=== PATIENT | male | born 1960 | race Caucasian/White ===

== ENCOUNTER 2016-05-22 10:15 | Emergency (ER) | payer OTHER ==
[~2016-05-22 10:15] MED LIST: ALBU17IN INH; ASPI81TA85 PO; ATEN50TA2 PO; ATOR1TAB18 PO; LOSA25TA8 PO; LOSA50TA20 PO; METF850T PO; PARO20TA2 PO
--- NOTE | 2016-05-22 13:26 | EDDOCDS ---
Nurse's Notes [facility] Name: Dilan Mack Age: 56 yrs Sex: Male : 1960 Arrival Date: 05/22/2016 Time: 10:15 Bed TR8 Private MD: Lee Ann Boswell Diagnosis: Acute sinusitis-rebound congestion due to accidental misuse of oxymetazoline Presentation: 05/22 10:26 Presenting complaint: Patient states: Pt presents recently under tx for sinus infection dls used nasal spray OTC entire bottle used in one night. Pt states has anxiety issues which makes his blood pressure go up. Adult Sepsis Screening: The patient does not have new or worsening altered mentation. Patient's respiratory rate is less than 22. Systolic blood pressure is greater than 100. Patient has a qSOFA score of 0- Negative Sepsis Screen. Suicide/Homicide risk assessment- the patient denies having any suicidal and/or homicidal ideations and does not present with any other emotional, behavioral or mental health complaints. Status: Patient is not a nutrition services associate or dependent. Transition of care: patient was not received from another setting of care. 10:26 Acuity: JHON Level 4 dls 10:26 Method Of Arrival: Walkin/Carried/Asstd dls Triage Assessment: 10:31 General: Appears in no apparent distress, well developed, Behavior is cooperative. dls Pain: Denies pain. Pain. HIV screening NA for this visit Offered previously. Historical: - Allergies: no known allergies; - Home Meds: 1. metformin 850 mg Oral tab 1 tab 2. atenolol 50 mg Oral tab 1 tab once daily 3. losartin 50mg daily 4. atorvastatin 80 mg oral tab 1 tab once daily 5. aspirin 81 mg Oral tab 1 tab once daily 6. doxycycline hyclate 100 mg Oral cap 1 cap every 12 hours 7. fluticasone 50mcg 1 spray each nostril twice daily - PMHx: Hypertension; Diabetes - NIDDM: controlled; - PSHx: none; - Social history: Smoking status: Patient uses tobacco products, light tobacco smoker. No barriers to communication noted, The patient speaks fluent Malagasy, Speaks appropriately for age. - : The pt / caregiver states he / she is not on anticoagulants. Home medication list is obtained from the patient. - Exposure Risk Screening:: None identified. Assessment: 12:04 General: Appears in no apparent distress. Respiratory: Airway is patent Respiratory mk4 effort is even, unlabored, Respiratory pattern is regular, harsh non prod cough. Vital Signs: 10:17 BP 172 / 82; Pulse 78; Resp 18; Temp 97.1(O); Pulse Ox 99% ; Weight 99.79 kg (R); ct3 Height 5 ft. 8 in. (172.72 cm) (R); Pain 0/10; 10:17 Body Mass Index 33.45 (99.79 kg, 172.72 cm) ct3 Vitals: 10:17 Log In Time: May 22, 2016 at 10:15. ct3 13:04 Strep Screen is obtained and tested: Negative, a GATSNEG culture is ordered in [facility] kcs and sent. ED Course: 10:16 Patient visited by Valarie Blas PCA. ct3 10:16 Lee Ann Boswell RPA-C is Private Physician. ct3 10:16 Patient moved to Waiting ct3 10:18 Patient moved to Pre RCE ct3 10:29 Triage Initiated dls 11:37 Patient moved to Triage 3 mk4 11:56 [facility] ar2 11:56 Chidi Radford MD is Attending Physician. ar2 12:03 Patient visited by Carmen Mayo RN. mk4 12:27 Patient visited by Heath Dean PA-C. ar2 12:34 [facility] Payment Agreement was scanned into [employer] and attached to record. mm15 13:06 Lee Ann Boswell RPA-C is Referral Physician. ar2 13:07 GATS (NEGATIVE STREP SCREEN) Sent. kcs 13:18 Patient moved to TR8 dls Order Results: There are currently no results for this order. Outcome: 13:07 Discharge ordered by Provider. ar2 13:25 Patient left the ED. mk4 Signatures: Gardenia Huynh RN RN kcs Scott, Debra, RN RN dls Heath Dean PA-C PA-C ar2 Valarie Blas PCA ER MANAGER ct3 Erin Yanez mm15 Carmen Mayo RN RN 4 MTDD
--- NOTE | 2016-05-22 13:26 | EDDOCDS ---
Physician Documentation [facility] Name: Dilan Mack Age: 56 yrs Sex: Male : 1960 Arrival Date: 05/22/2016 Time: 10:15 Bed TR8 Private MD: Lee Ann Boswell Disposition: 05/22/16 13:07 Discharged to Home/Self Care. Impression: Acute sinusitis - rebound congestion due to accidental misuse of oxymetazoline. - Condition is Stable. - Discharge Instructions: Sinusitis, Adult. - Medication Reconciliation, Local Pharmacy Hours form. - Follow up: Lee Ann Boswell,GÓMEZ; When: 2 - 3 days; Reason: Recheck today's complaints. Follow up: Emergency Department; When: As needed; Reason: Worsening of conditions. - Problem is new. - Symptoms are unchanged. - Notes: if you develop severe headache, chest pain or worsening condition return to ER. Historical: - Allergies: no known allergies; - Home Meds: 1. metformin 850 mg Oral tab 1 tab 2. atenolol 50 mg Oral tab 1 tab once daily 3. losartin 50mg daily 4. atorvastatin 80 mg oral tab 1 tab once daily 5. aspirin 81 mg Oral tab 1 tab once daily 6. doxycycline hyclate 100 mg Oral cap 1 cap every 12 hours 7. fluticasone 50mcg 1 spray each nostril twice daily - PMHx: Hypertension; Diabetes - NIDDM: controlled; - PSHx: none; - Social history: Smoking status: Patient uses tobacco products, light tobacco smoker. No barriers to communication noted, The patient speaks fluent Czech, Speaks appropriately for age. - : The pt / caregiver states he / she is not on anticoagulants. Home medication list is obtained from the patient. - Exposure Risk Screening:: None identified. Vital Signs: 05/22 10:17 BP 172 / 82; Pulse 78; Resp 18; Temp 97.1(O); Pulse Ox 99% ; Weight 99.79 kg / 220 lbs ct3 (R); Height 5 ft. 8 in. (172.72 cm) (R); Pain 0/10; 10:17 Body Mass Index 33.45 (99.79 kg, 172.72 cm) ct3 MDM: 12:30 Financial registration complete. mm15 12:34 [facility] Payment Agreement was scanned into [employer] and attached to record. mm15 12:53 Strep Screen, Nursing ordered. ar2 13:05 GATS (NEGATIVE STREP SCREEN) Ordered. EDMS Signatures: Dispatcher [employer] EDMS Vicki Mcdonnell, RN RN dls Heath Dean PA-C PAJudson ar2 Erin Yanez mm15 Carmen Mayo RN RN mk4 The chart was reviewed and I authenticate all verbal orders and agree with the evaluation and treatment provided.Attachments: 12:34 [facility] Payment Agreement mm15 MTDD
--- NOTE | 2016-05-24 14:26 | EDDOCDS ---
Physician Documentation [facility] Name: Dilan Mack Age: 56 yrs Sex: Male : 1960 Arrival Date: 05/22/2016 Time: 10:15 Bed TR8 Private MD: Lee Ann Boswell Disposition: 05/22/16 13:07 Discharged to Home/Self Care. Impression: Acute sinusitis - rebound congestion due to accidental misuse of oxymetazoline. - Condition is Stable. - Discharge Instructions: Sinusitis, Adult. - Medication Reconciliation, Local Pharmacy Hours form. - Follow up: Lee Ann Boswell,GÓMEZ; When: 2 - 3 days; Reason: Recheck today's complaints. Follow up: Emergency Department; When: As needed; Reason: Worsening of conditions. - Problem is new. - Symptoms are unchanged. - Notes: if you develop severe headache, chest pain or worsening condition return to ER. Historical: - Allergies: no known allergies; - Home Meds: 1. metformin 850 mg Oral tab 1 tab 2. atenolol 50 mg Oral tab 1 tab once daily 3. losartin 50mg daily 4. atorvastatin 80 mg oral tab 1 tab once daily 5. aspirin 81 mg Oral tab 1 tab once daily 6. doxycycline hyclate 100 mg Oral cap 1 cap every 12 hours 7. fluticasone 50mcg 1 spray each nostril twice daily - PMHx: Hypertension; Diabetes - NIDDM: controlled; - PSHx: none; - Social history: Smoking status: Patient uses tobacco products, light tobacco smoker. No barriers to communication noted, The patient speaks fluent Lithuanian, Speaks appropriately for age. - : The pt / caregiver states he / she is not on anticoagulants. Home medication list is obtained from the patient. - Exposure Risk Screening:: None identified. Vital Signs: 05/22 10:17 BP 172 / 82; Pulse 78; Resp 18; Temp 97.1(O); Pulse Ox 99% ; Weight 99.79 kg / 220 lbs ct3 (R); Height 5 ft. 8 in. (172.72 cm) (R); Pain 0/10; 10:17 Body Mass Index 33.45 (99.79 kg, 172.72 cm) ct3 MDM: 12:30 Financial registration complete. mm15 12:34 [facility] Payment Agreement was scanned into [employer] and attached to record. mm15 12:53 Strep Screen, Nursing ordered. ar2 13:05 GATS (NEGATIVE STREP SCREEN) Ordered. EDMS 05/23 13:54 T-Sheet-- Draft Copy was scanned into [employer] and attached to record. gb Signatures: Dispatcher [employer] EDMS Vicki Mcdonnell, RN RN dls Jahaira Wylie, Reg Reg gb Heath Dean, PAMELA SANTIAGO ar2 Erin Yanez mm15 Carmen Mayo RN RN mk4 The chart was reviewed and I authenticate all verbal orders and agree with the evaluation and treatment provided.Attachments: 05/22 12:34 [facility] Payment Agreement mm15 05/23 13:54 T-Sheet-- Draft Copy gb Chart Complete MTDD
--- NOTE | 2016-05-24 14:26 | EDDOCDS ---
Physician Documentation [facility] Name: Dilan Mack Age: 56 yrs Sex: Male : 1960 Arrival Date: 05/22/2016 Time: 10:15 Bed TR8 Private MD: Lee Ann Boswell Disposition: 05/22/16 13:07 Discharged to Home/Self Care. Impression: Acute sinusitis - rebound congestion due to accidental misuse of oxymetazoline. - Condition is Stable. - Discharge Instructions: Sinusitis, Adult. - Medication Reconciliation, Local Pharmacy Hours form. - Follow up: Lee Ann Boswell,GÓMEZ; When: 2 - 3 days; Reason: Recheck today's complaints. Follow up: Emergency Department; When: As needed; Reason: Worsening of conditions. - Problem is new. - Symptoms are unchanged. - Notes: if you develop severe headache, chest pain or worsening condition return to ER. Historical: - Allergies: no known allergies; - Home Meds: 1. metformin 850 mg Oral tab 1 tab 2. atenolol 50 mg Oral tab 1 tab once daily 3. losartin 50mg daily 4. atorvastatin 80 mg oral tab 1 tab once daily 5. aspirin 81 mg Oral tab 1 tab once daily 6. doxycycline hyclate 100 mg Oral cap 1 cap every 12 hours 7. fluticasone 50mcg 1 spray each nostril twice daily - PMHx: Hypertension; Diabetes - NIDDM: controlled; - PSHx: none; - Social history: Smoking status: Patient uses tobacco products, light tobacco smoker. No barriers to communication noted, The patient speaks fluent Romanian, Speaks appropriately for age. - : The pt / caregiver states he / she is not on anticoagulants. Home medication list is obtained from the patient. - Exposure Risk Screening:: None identified. Vital Signs: 05/22 10:17 BP 172 / 82; Pulse 78; Resp 18; Temp 97.1(O); Pulse Ox 99% ; Weight 99.79 kg / 220 lbs ct3 (R); Height 5 ft. 8 in. (172.72 cm) (R); Pain 0/10; 10:17 Body Mass Index 33.45 (99.79 kg, 172.72 cm) ct3 MDM: 12:30 Financial registration complete. mm15 12:34 [facility] Payment Agreement was scanned into [employer] and attached to record. mm15 12:53 Strep Screen, Nursing ordered. ar2 13:05 GATS (NEGATIVE STREP SCREEN) Ordered. EDMS 05/23 13:54 T-Sheet-- Draft Copy was scanned into [employer] and attached to record. gb Signatures: Dispatcher [employer] EDMS Vicki Mcdonnell, RN RN dls Jahaira Wylie, Reg Reg gb Heath Dean, PAMELA SANTIAGO ar2 Erin Yanez mm15 Carmen Mayo RN RN mk4 The chart was reviewed and I authenticate all verbal orders and agree with the evaluation and treatment provided.Attachments: 05/22 12:34 [facility] Payment Agreement mm15 05/23 13:54 T-Sheet-- Draft Copy gb Chart Complete MTDD
--- NOTE | 2016-05-24 14:26 | EDDOCDS ---
Nurse's Notes [facility] Name: Dilan Mack Age: 56 yrs Sex: Male : 1960 Arrival Date: 05/22/2016 Time: 10:15 Bed TR8 Private MD: Lee Ann Boswell Diagnosis: Acute sinusitis-rebound congestion due to accidental misuse of oxymetazoline Presentation: 05/22 10:26 Presenting complaint: Patient states: Pt presents recently under tx for sinus infection dls used nasal spray OTC entire bottle used in one night. Pt states has anxiety issues which makes his blood pressure go up. Adult Sepsis Screening: The patient does not have new or worsening altered mentation. Patient's respiratory rate is less than 22. Systolic blood pressure is greater than 100. Patient has a qSOFA score of 0- Negative Sepsis Screen. Suicide/Homicide risk assessment- the patient denies having any suicidal and/or homicidal ideations and does not present with any other emotional, behavioral or mental health complaints. Status: Patient is not a food service representative or dependent. Transition of care: patient was not received from another setting of care. 10:26 Acuity: JHON Level 4 dls 10:26 Method Of Arrival: Walkin/Carried/Asstd dls Triage Assessment: 10:31 General: Appears in no apparent distress, well developed, Behavior is cooperative. dls Pain: Denies pain. Pain. HIV screening NA for this visit Offered previously. Historical: - Allergies: no known allergies; - Home Meds: 1. metformin 850 mg Oral tab 1 tab 2. atenolol 50 mg Oral tab 1 tab once daily 3. losartin 50mg daily 4. atorvastatin 80 mg oral tab 1 tab once daily 5. aspirin 81 mg Oral tab 1 tab once daily 6. doxycycline hyclate 100 mg Oral cap 1 cap every 12 hours 7. fluticasone 50mcg 1 spray each nostril twice daily - PMHx: Hypertension; Diabetes - NIDDM: controlled; - PSHx: none; - Social history: Smoking status: Patient uses tobacco products, light tobacco smoker. No barriers to communication noted, The patient speaks fluent Sudanese, Speaks appropriately for age. - : The pt / caregiver states he / she is not on anticoagulants. Home medication list is obtained from the patient. - Exposure Risk Screening:: None identified. Assessment: 12:04 General: Appears in no apparent distress. Respiratory: Airway is patent Respiratory mk4 effort is even, unlabored, Respiratory pattern is regular, harsh non prod cough. Vital Signs: 10:17 BP 172 / 82; Pulse 78; Resp 18; Temp 97.1(O); Pulse Ox 99% ; Weight 99.79 kg (R); ct3 Height 5 ft. 8 in. (172.72 cm) (R); Pain 0/10; 10:17 Body Mass Index 33.45 (99.79 kg, 172.72 cm) ct3 Vitals: 10:17 Log In Time: May 22, 2016 at 10:15. ct3 13:04 Strep Screen is obtained and tested: Negative, [facility]. ED Course: 10:16 Patient visited by Valarie Blas PCA. ct3 10:16 Lee Ann Boswell RPA-C is Private Physician. ct3 10:16 Patient moved to Waiting ct3 10:18 Patient moved to Pre RCE ct3 10:29 Triage Initiated dls 11:37 Patient moved to Triage 3 mk4 11:56 Heath Dean [facility]. ar2 11:56 Chidi Radford MD is Attending Physician. ar2 12:03 Patient visited by Carmen Mayo RN. mk4 12:27 Patient visited by Heath Dean PA-C. ar2 12:34 [facility] Payment Agreement was scanned into [employer] and attached to record. mm15 13:06 Lee Ann Boswell RPA-C is Referral Physician. ar2 13:07 GATS (NEGATIVE STREP SCREEN) Sent. kcs 13:18 Patient moved to TR8 dls 14:25 Patient name changed from Dilan\S\\S\Frederick\S\ to Dilan\S\ \S\Frederick. EDMS 05/23 13:54 T-Sheet-- Draft Copy was scanned into [employer] and attached to record. gb Order Results: Lab Order: GATS (NEGATIVE STREP SCREEN); SPEC'M 05/22/16 00:00 Test: GATS CULTURE (NEG STREP SCR); Value: GATS RESULT NEGATIVE FOR STREP PYOGENES (GROUP A); Status: F Test: GATS CULTURE (NEG STREP SCR); Value: <EXTERNAL COMMENT eCWMed> FULL REPORT IN LAB NOTES (eCW and Medent).; Status: F Outcome: 05/22 13:07 Discharge ordered by Provider. ar2 13:25 Patient left the ED. mk4 Signatures: Dispatcher [employer] Gardenia Zavala, RN RN Vicki Orta RN RN dls Jahaira Wylie, Reg Reg gb Heath Dean, PA-C PA-C ar2 Valarie Blas, NATALYA [employer]BUTION TRANSFORMER ASSEMBLER ct3 Erin Yanez mm15 Carmen Mayo RN RN mk4 Chart Complete MTDD
== END 2016-05-22 13:25 | disposition home or self-care (01) ==
LOC: M ED 10:15
DX: J01.90 Acute sinusitis, unspecified (principal); I10 Essential (primary) hypertension; E11.9 Type 2 diabetes mellitus without complications; Z79.899 Other long term (current) drug therapy; Z79.84 Long term (current) use of oral hypoglycemic drugs; Z79.82 Long term (current) use of aspirin; F17.210 Nicotine dependence, cigarettes, uncomplicated

== ENCOUNTER 2016-05-23 19:54 | Emergency (ER) | payer OTHER ==
--- NOTE | 2016-05-23 21:21 | EDDOCDS ---
Physician Documentation [facility] Name: Dilan Mack Age: 56 yrs Sex: Male : 1960 Arrival Date: 05/23/2016 Time: 19:54 Bed TR8 Private MD: Lee Ann Boswell PA-C Disposition: 05/23/16 21:08 Discharged to Home/Self Care. Impression: Essential (primary) hypertension, Acute upper respiratory infection, unspecified, Vasomotor rhinitis. - Condition is Stable. - Discharge Instructions: Allergic Rhinitis, Upper Respiratory Infection, Adult. - Medication Reconciliation, Local Pharmacy Hours form. - Follow up: Lee Ann Boswell; When: Call to arrange an appointment; Reason: Recheck today's complaints, Continuance of care. - Problem is new. - Symptoms are unchanged. Historical: - Allergies: no known allergies; - Home Meds: 1. aspirin 81 mg Oral tab 1 tab once daily 2. atenolol 50 mg Oral tab 1 tab once daily 3. atorvastatin 80 mg oral tab 1 tab once daily 4. doxycycline hyclate 100 mg Oral cap 1 cap every 12 hours 5. fluticasone 50mcg 1 spray each nostril twice daily 6. losartin 50mg daily 7. metformin 850 mg Oral tab 1 tab 8. ventolin INH - PMHx: Diabetes - NIDDM: controlled; Hypertension; - PSHx: none; - Social history: Smoking status: Patient uses tobacco products, heavy tobacco smoker. No barriers to communication noted. - Family history: No immediate family members are acutely ill. - : The pt / caregiver states he / she is not on anticoagulants. Home medication list is obtained from the patient. - Exposure Risk Screening:: None identified. Vital Signs: 05/23 19:55 BP 168 / 84; Pulse 66; Resp 18 S; Temp 98.5(O); Pulse Ox 98% on R/A; Weight 99.79 kg / gr2 220 lbs (R); Height 5 ft. 8 in. (172.72 cm) (R); Pain 4/10; 20:43 BP 158 / 96 LA Sitting (man/reg); mb9 19:55 Body Mass Index 33.45 (99.79 kg, 172.72 cm) gr2 MDM: 20:14 Recheck B/P ordered. mo1 Signatures: Sung,Sadaf,RN RN cjh Mickey Elliott PA PA mo1 Mickey Alan RN RN mb9 NEELAMD
--- NOTE | 2016-05-23 21:21 | EDDOCDS ---
Nurse's Notes [facility] Name: Dilan Mack Age: 56 yrs Sex: Male : 1960 Arrival Date: 05/23/2016 Time: 19:54 Bed TR8 Private MD: Lee Ann Boswell PA-C Diagnosis: Essential (primary) hypertension;Acute upper respiratory infection, unspecified;Vasomotor rhinitis Presentation: 05/23 20:02 Presenting complaint: Patient states: came in because checking blood pressure at home [facility] had a few high reading like 180/110, that was about my 15th time that I tried it, and I read on the computer today that the mucinex could cause problems with your pressure, don't know if maybe it's anxiety 'cause I tend to be anxious, also experiencing some cold chills and fatigue. Adult Sepsis Screening: The patient does not have new or worsening altered mentation. Systolic blood pressure is greater than 100. Patient has a qSOFA score of 0- Negative Sepsis Screen. Suicide/Homicide risk assessment- the patient denies having any suicidal and/or homicidal ideations and does not present with any other emotional, behavioral or mental health complaints. Status: Patient is not a tax services specialist or dependent. Transition of care: patient was not received from another setting of care. 20:02 Acuity: JHON Level 4 [facility] 20:02 Method Of Arrival: Walkin/Carried/Asstd [facility] Triage Assessment: 20:06 General: Appears in no apparent distress, comfortable, Behavior is appropriate for age, [facility] cooperative. Pain: Denies pain. HIV screening NA for this visit Offered previously. Respiratory: Airway is patent Respiratory effort is even, unlabored, Respiratory pattern is regular, symmetrical. Derm: Skin is pink, warm & dry. Historical: - Allergies: no known allergies; - Home Meds: 1. aspirin 81 mg Oral tab 1 tab once daily 2. atenolol 50 mg Oral tab 1 tab once daily 3. atorvastatin 80 mg oral tab 1 tab once daily 4. doxycycline hyclate 100 mg Oral cap 1 cap every 12 hours 5. fluticasone 50mcg 1 spray each nostril twice daily 6. losartin 50mg daily 7. metformin 850 mg Oral tab 1 tab 8. ventolin INH - PMHx: Diabetes - NIDDM: controlled; Hypertension; - PSHx: none; - Social history: Smoking status: Patient uses tobacco products, heavy tobacco smoker. No barriers to communication noted. - Family history: No immediate family members are acutely ill. - : The pt / caregiver states he / she is not on anticoagulants. Home medication list is obtained from the patient. - Exposure Risk Screening:: None identified. Screenin:17 Screening information is obtained from the patient. Fall risk: No risks identified. [facility] Assistance ADL's: requires no assistance with activities of daily living. Abuse/DV Screen: The patient / caregiver reports he/she is: not in a situation that causes fear, pain or injury. Nutritional screening: No deficits noted. Advance Directives: There is no active DNR order. home support is adequate. Assessment: 20:43 General: Appears in no apparent distress, Behavior is appropriate for age, cooperative. mb9 Pain: Denies pain. Neurological: Level of Consciousness is awake, alert, Oriented to person, place, time, Denies blurred vision dizziness. Respiratory: Airway is patent Respiratory effort is even, unlabored. 21:17 General: Appears in no apparent distress, comfortable, Behavior is appropriate for age, h cooperative, pleasant, reviewed discharge instructions, encouraged and answered questions, denies other needs, declines offer of further assistance with dicharge. Vital Signs: 19:55 BP 168 / 84; Pulse 66; Resp 18 S; Temp 98.5(O); Pulse Ox 98% on R/A; Weight 99.79 kg gr2 (R); Height 5 ft. 8 in. (172.72 cm) (R); Pain 4/10; 20:43 BP 158 / 96 LA Sitting (man/reg); mb9 19:55 Body Mass Index 33.45 (99.79 kg, 172.72 cm) gr2 Vitals: 19:55 Log In Time: May 23, 2016 at 19:55. gr2 ED Course: 19:55 Patient visited by Sabina Garcia. gr2 19:55 Lee Ann Boswell is Private Physician. gr2 19:55 Patient moved to Waiting gr2 19:57 Patient visited by Sabina Garcia. gr2 19:57 Patient moved to Pre RCE gr2 20:05 Triage Initiated [facility] 20:24 Sadaf Almaraz,RN is Primary Nurse. cjh 20:24 Patient moved to Triage 3 [facility] 20:45 Kwabena Coleman PA is PHCP. btw 20:45 Ramez Junior DO is Attending Physician. btw 20:45 PHCP role handed off by Kwabena Coleman PA mo1 20:45 Mickey Elliott PA is PHCP. mo1 20:51 Patient visited by Mickey Elliott PA. mo1 21:08 Lee Ann Boswell is Referral Physician. mo1 21:14 Patient moved to TR8 21:17 The patient / caregiver is instructed regarding the plan of care and ED course. [facility] 21:17 No IV's were initiated during this patient's visit. No procedures done that require [facility] assistance. Order Results: There are currently no results for this order. Outcome: 21:08 Discharge ordered by Provider. mo1 21:17 Discharge Assessment: Patient awake, alert and oriented x 3. No cognitive and/or [facility] functional deficits noted. Patient verbalized understanding of disposition instructions. patient administered narcotics - no. The following High Risk Discharge criteria are identified: None. Discharged to home ambulatory. Condition: good Condition: stable Condition: improved. Discharge instructions given to patient, Instructed on discharge instructions, follow up and referral plans. medication usage, Demonstrated understanding of instructions, medications, Pt was receptive of discharge instructions/ teaching. No special radiology studies were completed. Property :Personal belongings accompany Pt. 21:20 Patient left the ED. [facility] Signatures: Theron Yen RN RN Kwabena Coleman PA PA [facility] Sadaf Almaraz RN RN [facility] Sabina Garcia gr2 Mickey Elliott PA PA [facility] [place] [place] Mickey Alan RN RN mb9 MTDD
--- NOTE | 2016-05-25 22:21 | EDDOCDS ---
Nurse's Notes [facility] Name: Dilan Mack Age: 56 yrs Sex: Male : 1960 Arrival Date: 05/23/2016 Time: 19:54 Bed TR8 Private MD: Lee Ann Boswell PA-C Diagnosis: Essential (primary) hypertension;Acute upper respiratory infection, unspecified;Vasomotor rhinitis Presentation: 05/23 20:02 Presenting complaint: Patient states: came in because checking blood pressure at home [facility] had a few high reading like 180/110, that was about my 15th time that I tried it, and I read on the computer today that the mucinex could cause problems with your pressure, don't know if maybe it's anxiety 'cause I tend to be anxious, also experiencing some cold chills and fatigue. Adult Sepsis Screening: The patient does not have new or worsening altered mentation. Systolic blood pressure is greater than 100. Patient has a qSOFA score of 0- Negative Sepsis Screen. Suicide/Homicide risk assessment- the patient denies having any suicidal and/or homicidal ideations and does not present with any other emotional, behavioral or mental health complaints. Status: Patient is not a customer service advocate or dependent. Transition of care: patient was not received from another setting of care. 20:02 Acuity: JHON Level 4 [facility] 20:02 Method Of Arrival: Walkin/Carried/Asstd [facility] Triage Assessment: 20:06 General: Appears in no apparent distress, comfortable, Behavior is appropriate for age, [facility] cooperative. Pain: Denies pain. HIV screening NA for this visit Offered previously. Respiratory: Airway is patent Respiratory effort is even, unlabored, Respiratory pattern is regular, symmetrical. Derm: Skin is pink, warm & dry. Historical: - Allergies: no known allergies; - Home Meds: 1. aspirin 81 mg Oral tab 1 tab once daily 2. atenolol 50 mg Oral tab 1 tab once daily 3. atorvastatin 80 mg oral tab 1 tab once daily 4. doxycycline hyclate 100 mg Oral cap 1 cap every 12 hours 5. fluticasone 50mcg 1 spray each nostril twice daily 6. losartin 50mg daily 7. metformin 850 mg Oral tab 1 tab 8. ventolin INH - PMHx: Diabetes - NIDDM: controlled; Hypertension; - PSHx: none; - Social history: Smoking status: Patient uses tobacco products, heavy tobacco smoker. No barriers to communication noted. - Family history: No immediate family members are acutely ill. - : The pt / caregiver states he / she is not on anticoagulants. Home medication list is obtained from the patient. - Exposure Risk Screening:: None identified. Screenin:17 Screening information is obtained from the patient. Fall risk: No risks identified. [facility] Assistance ADL's: requires no assistance with activities of daily living. Abuse/DV Screen: The patient / caregiver reports he/she is: not in a situation that causes fear, pain or injury. Nutritional screening: No deficits noted. Advance Directives: There is no active DNR order. home support is adequate. Assessment: 20:43 General: Appears in no apparent distress, Behavior is appropriate for age, cooperative. mb9 Pain: Denies pain. Neurological: Level of Consciousness is awake, alert, Oriented to person, place, time, Denies blurred vision dizziness. Respiratory: Airway is patent Respiratory effort is even, unlabored. 21:17 General: Appears in no apparent distress, comfortable, Behavior is appropriate for age, h cooperative, pleasant, reviewed discharge instructions, encouraged and answered questions, denies other needs, declines offer of further assistance with dicharge. Vital Signs: 19:55 BP 168 / 84; Pulse 66; Resp 18 S; Temp 98.5(O); Pulse Ox 98% on R/A; Weight 99.79 kg gr2 (R); Height 5 ft. 8 in. (172.72 cm) (R); Pain 4/10; 20:43 BP 158 / 96 LA Sitting (man/reg); mb9 19:55 Body Mass Index 33.45 (99.79 kg, 172.72 cm) gr2 Vitals: 19:55 Log In Time: May 23, 2016 at 19:55. gr2 ED Course: 19:55 Patient visited by Sabina Garcia. gr2 19:55 Lee Ann Boswell is Private Physician. gr2 19:55 Patient moved to Waiting gr2 19:57 Patient visited by Sabina Garcia. gr2 19:57 Patient moved to Pre RCE gr2 20:05 Triage Initiated [facility] 20:24 Sadaf Almaraz,RN is Primary Nurse. cjh 20:24 Patient moved to Triage 3 [facility] 20:45 Kwabena Coleman PA is PHCP. btw 20:45 Ramez Junior DO is Attending Physician. btw 20:45 PHCP role handed off by Kwabena Coleman PA mo1 20:45 Mickey Elliott PA is PHCP. mo1 20:51 Patient visited by Mickey Elliott PA. mo1 21:08 Lee Ann Boswell is Referral Physician. mo1 21:14 Patient moved to TR8 21:17 The patient / caregiver is instructed regarding the plan of care and ED course. [facility] 21:17 No IV's were initiated during this patient's visit. No procedures done that require [facility] assistance. 05/24 10:04 T-Sheet-- Draft Copy was scanned into [employer] and attached to record. klr Order Results: There are currently no results for this order. Outcome: 05/23 21:08 Discharge ordered by Provider. mo1 21:17 Discharge Assessment: Patient awake, alert and oriented x 3. No cognitive and/or [facility] functional deficits noted. Patient verbalized understanding of disposition instructions. patient administered narcotics - no. The following High Risk Discharge criteria are identified: None. Discharged to home ambulatory. Condition: good Condition: stable Condition: improved. Discharge instructions given to patient, Instructed on discharge instructions, follow up and referral plans. medication usage, Demonstrated understanding of instructions, medications, Pt was receptive of discharge instructions/ teaching. No special radiology studies were completed. Property :Personal belongings accompany Pt. 21:20 Patient left the ED. [facility] Signatures: Theron Yen RN RN Kwabena Coleman PA PA [facility] Sadaf Almaraz RN RN [facility] Sabina Garcia 2 Mickey Elliott PA PA [facility] Mickey AlanRN RN Adeline Meléndez Chart Complete MTDD
--- NOTE | 2016-05-25 22:21 | EDDOCDS ---
Physician Documentation [facility] Name: Dilan Mack Age: 56 yrs Sex: Male : 1960 Arrival Date: 05/23/2016 Time: 19:54 Bed TR8 Private MD: Lee Ann Boswell PA-C Disposition: 05/23/16 21:08 Discharged to Home/Self Care. Impression: Essential (primary) hypertension, Acute upper respiratory infection, unspecified, Vasomotor rhinitis. - Condition is Stable. - Discharge Instructions: Allergic Rhinitis, Upper Respiratory Infection, Adult. - Medication Reconciliation, Local Pharmacy Hours form. - Follow up: Lee Ann Boswell; When: Call to arrange an appointment; Reason: Recheck today's complaints, Continuance of care. - Problem is new. - Symptoms are unchanged. Historical: - Allergies: no known allergies; - Home Meds: 1. aspirin 81 mg Oral tab 1 tab once daily 2. atenolol 50 mg Oral tab 1 tab once daily 3. atorvastatin 80 mg oral tab 1 tab once daily 4. doxycycline hyclate 100 mg Oral cap 1 cap every 12 hours 5. fluticasone 50mcg 1 spray each nostril twice daily 6. losartin 50mg daily 7. metformin 850 mg Oral tab 1 tab 8. ventolin INH - PMHx: Diabetes - NIDDM: controlled; Hypertension; - PSHx: none; - Social history: Smoking status: Patient uses tobacco products, heavy tobacco smoker. No barriers to communication noted. - Family history: No immediate family members are acutely ill. - : The pt / caregiver states he / she is not on anticoagulants. Home medication list is obtained from the patient. - Exposure Risk Screening:: None identified. Vital Signs: 05/23 19:55 BP 168 / 84; Pulse 66; Resp 18 S; Temp 98.5(O); Pulse Ox 98% on R/A; Weight 99.79 kg / gr2 220 lbs (R); Height 5 ft. 8 in. (172.72 cm) (R); Pain 4/10; 20:43 BP 158 / 96 LA Sitting (man/reg); mb9 19:55 Body Mass Index 33.45 (99.79 kg, 172.72 cm) gr2 MDM: 20:14 Recheck B/P ordered. mo1 05/24 10:04 T-Sheet-- Draft Copy was scanned into [employer] system and attached to record. klr Signatures: Sadaf AlmarazRN RN [facility] Mickey Elliott PA PA mo1 Mickey AlanRN RN mb9 Adeline Rogel klr The chart was reviewed and I authenticate all verbal orders and agree with the evaluation and treatment provided.Attachments: 10:04 T-Sheet-- Draft Copy klr Chart Complete MTDD
--- NOTE | 2016-05-25 22:21 | EDDOCDS ---
Physician Documentation [facility] Name: Dilan Mack Age: 56 yrs Sex: Male : 1960 Arrival Date: 05/23/2016 Time: 19:54 Bed TR8 Private MD: Lee Ann Boswell PA-C Disposition: 05/23/16 21:08 Discharged to Home/Self Care. Impression: Essential (primary) hypertension, Acute upper respiratory infection, unspecified, Vasomotor rhinitis. - Condition is Stable. - Discharge Instructions: Allergic Rhinitis, Upper Respiratory Infection, Adult. - Medication Reconciliation, Local Pharmacy Hours form. - Follow up: Lee Ann Boswell; When: Call to arrange an appointment; Reason: Recheck today's complaints, Continuance of care. - Problem is new. - Symptoms are unchanged. Historical: - Allergies: no known allergies; - Home Meds: 1. aspirin 81 mg Oral tab 1 tab once daily 2. atenolol 50 mg Oral tab 1 tab once daily 3. atorvastatin 80 mg oral tab 1 tab once daily 4. doxycycline hyclate 100 mg Oral cap 1 cap every 12 hours 5. fluticasone 50mcg 1 spray each nostril twice daily 6. losartin 50mg daily 7. metformin 850 mg Oral tab 1 tab 8. ventolin INH - PMHx: Diabetes - NIDDM: controlled; Hypertension; - PSHx: none; - Social history: Smoking status: Patient uses tobacco products, heavy tobacco smoker. No barriers to communication noted. - Family history: No immediate family members are acutely ill. - : The pt / caregiver states he / she is not on anticoagulants. Home medication list is obtained from the patient. - Exposure Risk Screening:: None identified. Vital Signs: 05/23 19:55 BP 168 / 84; Pulse 66; Resp 18 S; Temp 98.5(O); Pulse Ox 98% on R/A; Weight 99.79 kg / gr2 220 lbs (R); Height 5 ft. 8 in. (172.72 cm) (R); Pain 4/10; 20:43 BP 158 / 96 LA Sitting (man/reg); mb9 19:55 Body Mass Index 33.45 (99.79 kg, 172.72 cm) gr2 MDM: 20:14 Recheck B/P ordered. mo1 05/24 10:04 T-Sheet-- Draft Copy was scanned into [employer] and attached to record. klr Signatures: Sadaf AlmarazRN RN [facility] Mickey Elliott PA PA mo1 Mickey AlanRN RN mb9 Adeline Rogel klr The chart was reviewed and I authenticate all verbal orders and agree with the evaluation and treatment provided.Attachments: 10:04 T-Sheet-- Draft Copy klr Chart Complete MTDD
== END 2016-05-23 21:20 | disposition home or self-care (01) ==
LOC: M ED 19:54
DX: I10 Essential (primary) hypertension (principal); J06.9 Acute upper respiratory infection, unspecified; J30.0 Vasomotor rhinitis; E11.9 Type 2 diabetes mellitus without complications; Z79.899 Other long term (current) drug therapy; Z79.82 Long term (current) use of aspirin; Z79.84 Long term (current) use of oral hypoglycemic drugs; F17.210 Nicotine dependence, cigarettes, uncomplicated

== ENCOUNTER 2016-05-25 12:33 | Emergency (ER) | payer OTHER ==
[2016-05-25] MEDS ORDERED: ASPIRIN 81 MG CHEW TABLET As Ordered ONE (13:24)
[2016-05-25 13:26] LABS: BASO # 0.1 K/mm3 (0.0-0.2); BASO % 0.7 % (0.0-1.0); EOS # 0.1 K/mm3 (0.0-0.50); LARGE UNSTAINED CELL # 0.2 K/mm3 (0.0-0.4); LARGE UNSTAINED CELL % 1.9 % (0.0-4.0); LYMPH # 2.2 K/mm3 (1.5-4.5); LYMPH % 19.5 % (24.0-44.0); MEAN CORPUSCULAR HEMOGLOBIN 32.8 pg (27.0-33.0); MEAN CORPUSCULAR HGB CONC 34.8 g/dl (32.0-36.5); MEAN CORPUSCULAR VOLUME 94.3 fl (80.0-96.0); MONO # 0.6 K/mm3 (0.0-0.8); MONO % 4.8 % (0.0-5.0); NEUTROPHILS # 8.2 K/mm3 (1.8-7.7); NEUTROPHILS % 72.2 % (36.0-66.0); PLATELET COUNT, AUTOMATED 231 k/mm3 (150-450); RED CELL DISTRIBUTION WIDTH 12.7 % (11.5-14.5); WHITE BLOOD COUNT 11.3 K/mm3 (4.0-10.0)
--- NOTE | 2016-05-25 13:28 | REP ---
Clinical: Acute chest pain . Comparison: 07/19/05 . Findings: The mediastinum and cardiac silhouette are stable and mild cardiomegaly is suggested. The lung reddy are clear without acute consolidation, effusion, or pneumothorax. Skeletal structures are intact. Impression: Cardiomegaly. No focal consolidation. Signed by Ventura Wagner MD 05/25/2016 01:20 P
[2016-05-25 13:46] LABS: ANION GAP 10 MEQ/L (8-16); BLOOD UREA NITROGEN 13 MG/DL (7-18); CALCIUM LEVEL 8.9 MG/DL (8.5-10.1); CARBON DIOXIDE LEVEL 26 MEQ/L (21-32); CHLORIDE LEVEL 102 MEQ/L (98-107); CREATININE FOR GFR 1.23 MG/DL (0.70-1.30); GLOMERULAR FILTRATION RATE > 60.0 (>56); GLUCOSE, FASTING 149 MG/DL (70-105); POTASSIUM SERUM 3.9 MEQ/L (3.5-5.1); SODIUM LEVEL 138 MEQ/L (136-145)
--- NOTE | 2016-05-25 20:18 | EDDOCDS ---
[facility] Name: Dilan Mack Age: 56 yrs Sex: Male : 1960 Arrival Date: 05/25/2016 Time: 12:33 Bed OBSERVATION Private MD: Lee Ann Boswell Diagnosis: Chest pain, unspecified Presentation: 05/25 12:45 Presenting complaint: Patient states: Onset of chest pain last night at 2000, went ck1 away. [place] chest pain again this morning at approximately 11am, "broke out in cold sweat". Denies pain now. Aspirin was not taken prior to arrival. Adult Sepsis Screening: The patient does not have new or worsening altered mentation. Patient's respiratory rate is less than 22. Systolic blood pressure is greater than 100. Patient has a qSOFA score of 0- Negative Sepsis Screen. Suicide/Homicide risk assessment- the patient denies having any suicidal and/or homicidal ideations and does not present with any other emotional, behavioral or mental health complaints. Status: Patient is not a vp client services or dependent. Transition of care: patient was not received from another setting of care. Red Flag criteria, patient assessed and taken directly to a bed. 12:45 Acuity: JHON Level 2 ck1 12:45 Method Of Arrival: Wheelchair ck1 Triage Assessment: 12:49 General: Appears in no apparent distress, comfortable, Behavior is anxious, appropriate ck1 for age. Pain: Location: chest Pain currently is 0 out of 10 on a pain scale. At worst was 4 out of 10 on a pain scale. Quality of pain is described as pressure. HIV screening NA for this visit Offered previously. Neurological: Level of Consciousness is awake, alert, obeys commands, Oriented to person, place, time. Cardiovascular: Chest pain is described as vague, radiates Does not radiate. episodes last 2-3 minutes began 2 hours prior to arrival. Respiratory: Respiratory effort is unlabored, Respiratory pattern is regular, symmetrical. Derm: Skin is pink, warm & dry. Musculoskeletal: No deficits noted. Historical: - Allergies: No known drug Allergies; - Home Meds: 1. aspirin 81 mg Oral tab 1 tab once daily 2. atenolol 50 mg Oral tab 1 tab once daily 3. atorvastatin 80 mg oral tab 1 tab once daily 4. doxycycline hyclate 100 mg Oral cap 1 cap every 12 hours 5. Ventolin INH 6. metformin 850 mg Oral tab 1 tab 7. losartin 50mg daily 8. fluticasone 50mcg 1 spray each nostril twice daily 9. doxycycline hyclate 100 mg Oral cap 2 times per day - PMHx: Diabetes - NIDDM: controlled; Hypertension; sinus infection; Myocardial infarction; - PSHx: none; - Social history: Smoking status: Patient uses tobacco products, heavy tobacco smoker. No barriers to communication noted, The patient speaks fluent Norwegian, Speaks appropriately for age. - Family history: Not pertinent. - : The pt / caregiver states he / she is not on anticoagulants. Home medication list is obtained from the patient. - Exposure Risk Screening:: None identified. Screenin:08 Screening information is obtained from the patient. Fall risk: No risks identified. jjr Assistance ADL's: requires no assistance with activities of daily living. Abuse/DV Screen: The patient / caregiver reports he/she is: not in a situation that causes fear, pain or injury. Nutritional screening: No deficits noted. Advance Directives: There is no active DNR order. home support is adequate. Assessment: 13:07 General: Appears in no apparent distress, well nourished, well groomed, Behavior is jjr appropriate for age. Neurological: No deficits noted. Cardiovascular: Rhythm is sinus rhythm Chest pain is described as vague, quality is pressure, is located in substernal area episodes are continuous began 2 hours prior to arrival. Respiratory: Airway is patent Respiratory effort is even, unlabored, Respiratory pattern is regular. Derm: Skin is pink, warm & dry. 14:07 General: Appears in no apparent distress, Behavior is appropriate for age. jjr Cardiovascular: Rhythm is sinus rhythm Chest pain is denied. Respiratory: No deficits noted. Derm: Skin is pink, warm & dry. 15:12 General: Appears in no apparent distress, ambulatory to continues to deny chest jjr pain, c/o numbness to cheeks and fullness to ears and face. 16:07 General: Appears in no apparent distress. Neurological: No deficits noted. Reports jjr "tingling" to left side of head present for a couple of days. Cardiovascular: Rhythm is sinus rhythm Chest pain is denied. 17:36 General: Appears in no apparent distress. Cardiovascular: Rhythm is sinus rhythm Chest jjr pain is denied. Respiratory: No deficits noted. Derm: Skin is pink, warm & dry. 20:06 Adult Sepsis Screening: The patient does not have new or worsening altered mentation. cf2 Patient's respiratory rate is less than 22. Systolic blood pressure is greater than 100. Patient has a qSOFA score of 0- Negative Sepsis Screen. Pain: Denies pain. Vital Signs: 12:37 BP 148 / 73 LA Sitting (auto/lg); Pulse 86; Resp 20; Temp 99.0(O); Pulse Ox 97% on R/A; bnb Weight 99.79 kg (R); Height 5 ft. 8 in. (172.72 cm) (R); Pain 0/10; 13:07 BP 147 / 90 (auto/); jjr 13:07 Pulse 86 MON; Pulse Ox 96% ; jjr 13:22 BP 131 / 60 (auto/); jjr 13:22 Pulse 78 MON; Pulse Ox 96% ; jjr 13:37 BP 125 / 62 (auto/); jjr 13:37 Pulse 72 MON; Pulse Ox 95% ; jjr 13:52 BP 120 / 61 (auto/); jjr 13:52 Pulse 70 MON; Pulse Ox 93% ; jjr 14:06 Pulse 74 MON; Resp 18; Pulse Ox 95% on R/A; jjr 14:07 BP 127 / 73 (auto/); jjr 14:07 Pulse 72 MON; Pulse Ox 96% ; jjr 14:22 BP 131 / 63 (auto/); jjr 14:22 Pulse 68 MON; Pulse Ox 95% ; jjr 14:37 BP 121 / 60 (auto/); jjr 14:37 Pulse 66 MON; Pulse Ox 94% ; jjr 14:52 BP 119 / 61 (auto/); jjr 14:52 Pulse 68 MON; Resp 18; Pulse Ox 95% on R/A; jjr 15:11 BP 135 / 65 (auto/); jjr 15:12 Pulse 66 MON; Pulse Ox 96% ; jjr 16:11 BP 120 / 63 (auto/); jjr 16:11 Pulse 66 MON; Pulse Ox 95% ; jjr 17:11 BP 128 / 62 (auto/); jjr 17:11 Pulse 68 MON; Resp 18; Pulse Ox 94% on R/A; jjr 19:36 Pulse 70 MON; cf2 19:36 BP 122 / 71; Pulse 72; Resp 16; Temp 98.0; Pulse Ox 98% on R/A; Pain 0/10; cf2 20:05 Pulse 74 MON; cf2 12:37 Body Mass Index 33.45 (99.79 kg, 172.72 cm) bnb Vitals: 12:37 Log In Time: May 25, 2016 at 12:35. RN notified that patient meets Red Flag bnb criteria. ED Course: 12:35 Patient visited by Erin Conteh PCA. bnb 12:35 Patient moved to Waiting bnb 12:36 Lee Ann Boswell RPA-C is Private Physician. bnb 12:42 Kathy Garcia RN is Primary Nurse. bnb 12:42 Patient moved to 13 bnb 12:47 Triage Initiated ck1 12:51 Link Becker MD is Attending Physician. br1 13:06 Basic Metabolic Profile Sent. jjr 13:06 CBC with Diff Sent. jjr 13:06 Cardiac Injury Profile Sent. jjr 13:06 Troponin Sent. jjr 13:06 Inserted saline lock: 20 gauge in left antecubital area and blood collected. Labs jjr drawn. (by ED staff). Sent per order to lab. 13:08 The patient / caregiver is instructed regarding the plan of care and ED course. Cardiac jjr monitor on. Pulse ox on. NIBP on. 13:08 EKG done. (by ED staff). Reviewed by Link Becker MD. jjr 13:09 Patient visited by Kathy Garcia RN. jjr 13:12 Patient visited by Link Becker MD. br1 14:08 Patient visited by Kathy Garcia RN. jjr 14:08 Chest, 1 View Returned. EDMS 14:09 Patient moved to OBSERVATION jjr 15:13 Patient visited by Kathy Garcia RN. jjr 16:00 [facility] Payment Agreement was scanned into [employer] and attached to record. zo 16:04 Patient name changed from Dilan\\S\\\\S\\Frederick\\S\\ to Dilan\\S\\ \\S\\Frederick. EDMS 16:08 Patient visited by Kathy Garcia RN. jjr 17:37 Patient visited by Kathy Garcia RN. jjr 18:29 CARDIAC MARKER PANEL Sent. jjr 18:46 EKG done. (by ED staff). Reviewed by Link Becker MD. dem1 18:47 Patient visited by Trina Ruiz. dem1 19:15 Primary Nurse role handed off by Kathy Garcia RN cf2 19:15 Lou Wills,SHAINA is Primary Nurse. cf2 19:15 Patient visited by Lou Wills RN. cf2 19:30 Lee Ann Boswell RPA-C is Referral Physician. br1 19:30 Abiodun Monte is Referral Physician. br1 19:36 Discontinued lock. cf2 20:05 Patient visited by Lou Wills RN. cf2 20:06 Patient visited by Lou Wills RN. cf2 20:06 Patient has correct armband on for positive identification. Placed in gown. Bed in low cf2 position. Call light in reach. Side rails up X 1. Side rails up X2. 20:06 No procedures done that require assistance. cf2 20:13 Patient visited by Lou Wills RN. cf2 Administered Medications: 13:26 Drug: Aspirin 324 mg [aspirin 81 mg chewable tablet (4 tabs)] Route: PO; jjr 14:31 Drug: NS 0.9% 1000 ml [sodium chloride 0.9 % intravenous solution] Route: IV; Rate: 150 jjr mL/hr; Site: left antecubital; Order Results: Lab Order: Basic Metabolic Profile; SPEC'M 05/25/16 13:03 Test: GLUCOSE, FASTING; Value: 149; Range: 70-105; Abnormal: Above high normal; Units: MG/DL; Status: F Test: BLOOD UREA NITROGEN; Value: 13; Range: 7-18; Units: MG/DL; Status: F Test: CREATININE FOR GFR; Value: 1.23; Range: 0.70-1.30; Units: MG/DL; Status: F Test: GLOMERULAR FILTRATION RATE; Value: > 60.0; Range: >56; Status: F Test: SODIUM LEVEL; Value: 138; Range: 136-145; Units: MEQ/L; Status: F Test: POTASSIUM SERUM; Value: 3.9; Range: 3.5-5.1; Units: MEQ/L; Status: F Test: CHLORIDE LEVEL; Value: 102; Range: 98-107; Units: MEQ/L; Status: F Test: CARBON DIOXIDE LEVEL; Value: 26; Range: 21-32; Units: MEQ/L; Status: F Test: ANION GAP; Value: 10; Range: 8-16; Units: MEQ/L; Status: F Test: CALCIUM LEVEL; Value: 8.9; Range: 8.5-10.1; Units: MG/DL; Status: F Test Note: ; Units are mL/min/1.73 m2 Chronic Kidney Disease Staging per NKF: Stage I & II GFR >=60 Normal to Mildly Decreased Stage III GFR 30-59 Moderately Decreased Stage IV GFR 15-29 Severely Decreased Stage V GFR <15 Very Little GFR Left ESRD GFR <15 on QUANTITATIVE ASSOCIATE Lab Order: CBC with Diff; SPEC'M 05/25/16 13:03 Test: WHITE BLOOD COUNT; Value: 11.3; Range: 4.0-10.0; Abnormal: Above high normal; Units: K/mm3; Status: F Test: RED BLOOD COUNT; Value: 4.80; Range: 4.30-6.10; Units: M/mm3; Status: F Test: HEMOGLOBIN; Value: 15.7; Range: 14.0-18.0; Units: g/dl; Status: F Test: HEMATOCRIT; Value: 45.3; Range: 42.0-52.0; Units: %; Status: F Test: MEAN CORPUSCULAR VOLUME; Value: 94.3; Range: 80.0-96.0; Units: fl; Status: F Test: MEAN CORPUSCULAR HEMOGLOBIN; Value: 32.8; Range: 27.0-33.0; Units: pg; Status: F Test: MEAN CORPUSCULAR HGB CONC; Value: 34.8; Range: 32.0-36.5; Units: g/dl; Status: F Test: RED CELL DISTRIBUTION WIDTH; Value: 12.7; Range: 11.5-14.5; Units: %; Status: F Test: PLATELET COUNT, AUTOMATED; Value: 231; Range: 150-450; Units: k/mm3; Status: F Test: NEUTROPHILS %; Value: 72.2; Range: 36.0-66.0; Abnormal: Above high normal; Units: %; Status: F Test: LYMPH %; Value: 19.5; Range: 24.0-44.0; Abnormal: Below low normal; Units: %; Status: F Test: MONO %; Value: 4.8; Range: 0.0-5.0; Units: %; Status: F Test: EOS %; Value: 1.0; Range: 0.0-3.0; Units: %; Status: F Test: BASO %; Value: 0.7; Range: 0.0-1.0; Units: %; Status: F Test: LARGE UNSTAINED CELL %; Value: 1.9; Range: 0.0-4.0; Units: %; Status: F Test: NEUTROPHILS #; Value: 8.2; Range: 1.8-7.7; Abnormal: Above high normal; Units: K/mm3; Status: F Test: LYMPH #; Value: 2.2; Range: 1.5-4.5; Units: K/mm3; Status: F Test: MONO #; Value: 0.6; Range: 0.0-0.8; Units: K/mm3; Status: F Test: EOS #; Value: 0.1; Range: 0.0-0.50; Units: K/mm3; Status: F Test: BASO #; Value: 0.1; Range: 0.0-0.2; Units: K/mm3; Status: F Test: LARGE UNSTAINED CELL #; Value: 0.2; Range: 0.0-0.4; Units: K/mm3; Status: F Lab Order: Cardiac Injury Profile; SPEC'M 05/25/16 13:03 Test: CPK CREATINE PHOSPHOKINASE; Value: 485; Range: 39-308; Abnormal: Above high normal; Units: U/L; Status: F Test: CK-MB VALUE MASS; Value: 4.9; Range: 0.0-3.6; Abnormal: Above high normal; Units: NG/ML; Status: F Test: MB/CK RELATIVE INDEX; Value: 1.01; Range: < OR =4; Status: F Test Note: ; DIAGNOSIS CRITERIA MMB ng/ml Relative Index (RI) NON-AMI < or = 5 N/A [place] > 5 < or = 4 AMI > 5 > 4 Lab Order: Troponin; [facility]' 05/25/16 13:03 Test: TROPONIN I; Value: < 0.02; Range: < 0.10; Units: NG/ML; Status: F Test Note: ; Troponin I Reference Interval for [employer] LOCI: 99th Percentile= 0.00-0.045 ng/ml Risk Stratification: <= 0.10 ng/ml Decreased Risk for Adverse Clinical Events. 0.10-1.50 ng/ml Increased Risk for Adverse Clinical Events. Evaluation of additional criterion and/or repeat testing in 2-6 hours is suggested to rule out myocardial damage. >= 1.50 ng/ml Indicative of Myocardial Injury. Lab Order: CARDIAC MARKER PANEL; SPEC' 05/25/16 18:29 Test: CPK CREATINE PHOSPHOKINASE; Value: 401; Range: 39-308; Abnormal: Above high normal; Units: U/L; Status: F Test: CK-MB VALUE MASS; Value: 3.5; Range: 0.0-3.6; Units: NG/ML; Status: F Test: MB/CK RELATIVE INDEX; Value: 0.87; Range: < OR =4; Status: F Test: TROPONIN I; Value: < 0.02; Range: < 0.10; Units: NG/ML; Status: F Test Note: ; DIAGNOSIS CRITERIA MMB ng/ml Relative Index (RI) NON-AMI < or = 5 N/A [place] > 5 < or = 4 AMI > 5 > 4 Radiology Order: Chest, 1 View Test: Chest, 1 View REASON FOR EXAMINATION: Chest Pain; Clinical: Acute chest pain .; ; Comparison: 07/19/05 .; ; Findings:; The mediastinum and cardiac silhouette are stable and mild cardiomegaly is; suggested. The lung reddy are clear without acute consolidation, effusion, or; pneumothorax. Skeletal structures are intact.; ; Impression:; Cardiomegaly. No focal consolidation.; ; ; Signed by; Ventura Wagner MD 05/25/2016 01:20 P; Outcome: 19:31 Discharge ordered by Provider. br1 19:36 Discharge Assessment: Patient awake, alert and oriented x 3. No cognitive and/or cf2 functional deficits noted. Patient verbalized understanding of disposition instructions. Patient awake and alert. Oriented to person, place and time. patient administered narcotics -. The following High Risk Discharge criteria are identified: None. Discharged to home ambulatory, with significant other. Condition: good Condition: stable Condition: improved. Discharge instructions given to patient, significant other, Instructed on discharge instructions, follow up and referral plans. Demonstrated understanding of instructions, Pt was receptive of discharge instructions/ teaching. No special radiology studies were completed. Property :Personal belongings accompany Pt. 20:16 Patient left the ED. cf2 Signatures: Dispatcher [employer] EDMS Keiry Hayward,RN RN ck1 Becca Vega Brian, MD MD br1 Ktahy Garcia RN RN Trina Broussard dem1 Lou Wills RN RN cf2 Erin Conteh, NATALYA [employer] bnb MANOJ
--- NOTE | 2016-05-25 20:18 | EDDOCDS ---
[facility] Name: Dilan Mack Age: 56 yrs Sex: Male : 1960 Arrival Date: 05/25/2016 Time: 12:33 Bed OBSERVATION Private MD: Lee Ann Boswell Disposition: 05/25/16 19:31 Discharged to Home/Self Care. Impression: Chest pain, unspecified. - Condition is Stable. - Discharge Instructions: Nonspecific Chest Pain. - Medication Reconciliation, Local Pharmacy Hours form. - Follow up: Lee Ann Boswell RPA-C; When: 2 - 3 days; Reason: Recheck today's complaints. Follow up: Abiodun Monte; When: 2 - 3 days; Reason: Recheck today's complaints. - Problem is new. - Symptoms are resolved. - Notes: You were seen in the ED for chest pain. Bloodwork showed no acute findings. EKG showed no evidence of new heart attack. Chest Xray showed enlarged heart but no other acute findings. We have consulted with Cardiology as well. As you are feeling better you may return home and will need to see your primary doctor as well as Dr. Monte of cardiology for further evaluation and testing. Please call in the morning to make these two appointments. Return to the ED for any return of chest pain, trouble breathing, lightheadedness, loss of consciousness or any other concerns. Historical: - Allergies: No known drug Allergies; - Home Meds: 1. aspirin 81 mg Oral tab 1 tab once daily 2. atenolol 50 mg Oral tab 1 tab once daily 3. atorvastatin 80 mg oral tab 1 tab once daily 4. doxycycline hyclate 100 mg Oral cap 1 cap every 12 hours 5. Ventolin INH 6. metformin 850 mg Oral tab 1 tab 7. losartin 50mg daily 8. fluticasone 50mcg 1 spray each nostril twice daily 9. doxycycline hyclate 100 mg Oral cap 2 times per day - PMHx: Diabetes - NIDDM: controlled; Hypertension; sinus infection; Myocardial infarction; - PSHx: none; - Social history: Smoking status: Patient uses tobacco products, heavy tobacco smoker. No barriers to communication noted, The patient speaks fluent Lao, Speaks appropriately for age. - Family history: Not pertinent. - : The pt / caregiver states he / she is not on anticoagulants. Home medication list is obtained from the patient. - Exposure Risk Screening:: None identified. Vital Signs: 05/25 12:37 BP 148 / 73 LA Sitting (auto/lg); Pulse 86; Resp 20; Temp 99.0(O); Pulse Ox 97% on R/A; bnb Weight 99.79 kg / 220 lbs (R); Height 5 ft. 8 in. (172.72 cm) (R); Pain 0/10; 13:07 BP 147 / 90 (auto/); jjr 13:07 Pulse 86 MON; Pulse Ox 96% ; jjr 13:22 BP 131 / 60 (auto/); jjr 13:22 Pulse 78 MON; Pulse Ox 96% ; jjr 13:37 BP 125 / 62 (auto/); jjr 13:37 Pulse 72 MON; Pulse Ox 95% ; jjr 13:52 BP 120 / 61 (auto/); jjr 13:52 Pulse 70 MON; Pulse Ox 93% ; jjr 14:06 Pulse 74 MON; Resp 18; Pulse Ox 95% on R/A; jjr 14:07 BP 127 / 73 (auto/); jjr 14:07 Pulse 72 MON; Pulse Ox 96% ; jjr 14:22 BP 131 / 63 (auto/); jjr 14:22 Pulse 68 MON; Pulse Ox 95% ; jjr 14:37 BP 121 / 60 (auto/); jjr 14:37 Pulse 66 MON; Pulse Ox 94% ; jjr 14:52 BP 119 / 61 (auto/); jjr 14:52 Pulse 68 MON; Resp 18; Pulse Ox 95% on R/A; jjr 15:11 BP 135 / 65 (auto/); jjr 15:12 Pulse 66 MON; Pulse Ox 96% ; jjr 16:11 BP 120 / 63 (auto/); jjr 16:11 Pulse 66 MON; Pulse Ox 95% ; jjr 17:11 BP 128 / 62 (auto/); jjr 17:11 Pulse 68 MON; Resp 18; Pulse Ox 94% on R/A; jjr 19:36 Pulse 70 MON; cf2 19:36 BP 122 / 71; Pulse 72; Resp 16; Temp 98.0; Pulse Ox 98% on R/A; Pain 0/10; cf2 20:05 Pulse 74 MON; cf2 12:37 Body Mass Index 33.45 (99.79 kg, 172.72 cm) bnb MDM: 12:46 ECG WITH READING ER PHYS+CARDIAG ordered. 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 br1 12:51 IV Saline Lock ordered. br1 12:51 Rhythm Strip to chart ordered. br1 12:51 Undress patient appropriately for examination ordered. br1 12:53 Basic Metabolic Profile Ordered. EDMS 12:53 CBC with Diff Ordered. EDMS 12:53 Cardiac Injury Profile Ordered. EDMS 12:53 Troponin Ordered. EDMS 12:53 Chest, 1 View Ordered. EDMS 13:13 Aspirin 324 mg PO once ordered. br1 13:44 CBC with Diff Reviewed. br1 14:05 Basic Metabolic Profile Reviewed. br1 14:05 Cardiac Injury Profile Reviewed. br1 14:05 Troponin Reviewed. br1 14:07 NS 0.9% 1000 ml IV at 150 mL/hr continuous ordered. br1 14:07 Admit to ED Observation status ordered. br1 14:07 Repeat EKG (put time details section) ordered. br1 14:07 Redraw CIP &Troponin (put time in details section) ordered. br1 14:16 Repeat EKG (put time details section) complete. deg 14:17 Redraw CIP &Troponin (put time in details section) complete. deg 14:17 ECG WITH READING ER PHYS ordered. EDMS 14:18 CARDIAC MARKER PANEL Ordered. EDMS 14:20 LOW FAT LOW CHOLESTEROL+DIET ordered. EDMS 14:32 Admit to ED Observation status complete. jjr 15:57 Financial registration complete. zo 16:00 [facility] Payment Agreement was scanned into [employer] and attached to record. zo 19:15 CARDIAC MARKER PANEL Reviewed. br1 19:15 Chest, 1 View Reviewed. br1 Administered Medications: 13:26 Drug: Aspirin 324 mg [aspirin 81 mg chewable tablet (4 tabs)] Route: PO; jjr 14:31 Drug: NS 0.9% 1000 ml [sodium chloride 0.9 % intravenous solution] Route: IV; Rate: 150 jjr mL/hr; Site: left antecubital; Signatures: Dispatcher [employer] EDNehal Gallegos, Housing Counselor Unit deg Keiry HaywardRN RN ck1 Becca Vega Brian, MD MD br1 Kathy Garcia RN RN jjr Familetti-Gonzalez, Christina, RN RN cf2 The chart was reviewed and I authenticate all verbal orders and agree with the evaluation and treatment provided.Attachments: 16:00 [facility] [place] Payment Agreement zo [id number]
--- NOTE | 2016-05-26 19:40 | ECGEPIP ---
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
--- NOTE | 2016-05-26 19:47 | ECGEPIP ---
Stationary ECG Study [facility] - ED Test Date: 2016-05-25 Pat Name: BERT KIRK Department: Room: - Gender: M Rn Er: laverne : 1960 Requested By: ALBINA Rowell Order Number: [id number] Reading MD: Caridad Whitmore Measurements Intervals [place] Rate: 75 P: 56 DC: 159 QRS: -34 QRSD: 113 T: -7 QT: 341 QTc: 381 Interpretive Statements SINUS RHYTHM LOW QRS VOLTAGE IN PRECORDIAL LEADS LATERAL MYOCARDIAL INFARCTION, PROBABLY OLD INFERIOR MYOCARDIAL INFARCTION, PROBABLY OLD DECREASED RATE 12:49 Electronically Signed On 05-26-2016 19:47:41 EST by Caridad Whitmore
--- NOTE | 2016-05-27 21:18 | EDDOCDS ---
Physician Documentation [facility] Name: Dilan Mack Age: 56 yrs Sex: Male : 1960 Arrival Date: 05/25/2016 Time: 12:33 Bed OBSERVATION Private MD: Lee Ann Boswell Disposition: 05/25/16 19:31 Discharged to Home/Self Care. Impression: Chest pain, unspecified. - Condition is Stable. - Discharge Instructions: Nonspecific Chest Pain. - Medication Reconciliation, Local Pharmacy Hours form. - Follow up: Lee Ann Boswell RPA-C; When: 2 - 3 days; Reason: Recheck today's complaints. Follow up: Abiodun Monte; When: 2 - 3 days; Reason: Recheck today's complaints. - Problem is new. - Symptoms are resolved. - Notes: You were seen in the ED for chest pain. Bloodwork showed no acute findings. EKG showed no evidence of new heart attack. Chest Xray showed enlarged heart but no other acute findings. We have consulted with Cardiology as well. As you are feeling better you may return home and will need to see your primary doctor as well as Dr. Monte of cardiology for further evaluation and testing. Please call in the morning to make these two appointments. Return to the ED for any return of chest pain, trouble breathing, lightheadedness, loss of consciousness or any other concerns. Historical: - Allergies: No known drug Allergies; - Home Meds: 1. aspirin 81 mg Oral tab 1 tab once daily 2. atenolol 50 mg Oral tab 1 tab once daily 3. atorvastatin 80 mg oral tab 1 tab once daily 4. doxycycline hyclate 100 mg Oral cap 1 cap every 12 hours 5. Ventolin INH 6. metformin 850 mg Oral tab 1 tab 7. losartin 50mg daily 8. fluticasone 50mcg 1 spray each nostril twice daily 9. doxycycline hyclate 100 mg Oral cap 2 times per day - PMHx: Diabetes - NIDDM: controlled; Hypertension; sinus infection; Myocardial infarction; - PSHx: none; - Social history: Smoking status: Patient uses tobacco products, heavy tobacco smoker. No barriers to communication noted, The patient speaks fluent Urdu, Speaks appropriately for age. - Family history: Not pertinent. - : The pt / caregiver states he / she is not on anticoagulants. Home medication list is obtained from the patient. - Exposure Risk Screening:: None identified. Vital Signs: 05/25 12:37 BP 148 / 73 LA Sitting (auto/lg); Pulse 86; Resp 20; Temp 99.0(O); Pulse Ox 97% on R/A; bnb Weight 99.79 kg / 220 lbs (R); Height 5 ft. 8 in. (172.72 cm) (R); Pain 0/10; 13:07 BP 147 / 90 (auto/); jjr 13:07 Pulse 86 MON; Pulse Ox 96% ; jjr 13:22 BP 131 / 60 (auto/); jjr 13:22 Pulse 78 MON; Pulse Ox 96% ; jjr 13:37 BP 125 / 62 (auto/); jjr 13:37 Pulse 72 MON; Pulse Ox 95% ; jjr 13:52 BP 120 / 61 (auto/); jjr 13:52 Pulse 70 MON; Pulse Ox 93% ; jjr 14:06 Pulse 74 MON; Resp 18; Pulse Ox 95% on R/A; jjr 14:07 BP 127 / 73 (auto/); jjr 14:07 Pulse 72 MON; Pulse Ox 96% ; jjr 14:22 BP 131 / 63 (auto/); jjr 14:22 Pulse 68 MON; Pulse Ox 95% ; jjr 14:37 BP 121 / 60 (auto/); jjr 14:37 Pulse 66 MON; Pulse Ox 94% ; jjr 14:52 BP 119 / 61 (auto/); jjr 14:52 Pulse 68 MON; Resp 18; Pulse Ox 95% on R/A; jjr 15:11 BP 135 / 65 (auto/); jjr 15:12 Pulse 66 MON; Pulse Ox 96% ; jjr 16:11 BP 120 / 63 (auto/); jjr 16:11 Pulse 66 MON; Pulse Ox 95% ; jjr 17:11 BP 128 / 62 (auto/); jjr 17:11 Pulse 68 MON; Resp 18; Pulse Ox 94% on R/A; jjr 19:36 Pulse 70 MON; cf2 19:36 BP 122 / 71; Pulse 72; Resp 16; Temp 98.0; Pulse Ox 98% on R/A; Pain 0/10; cf2 20:05 Pulse 74 MON; cf2 12:37 Body Mass Index 33.45 (99.79 kg, 172.72 cm) bnb MDM: 12:46 ECG WITH READING ER PHYS+CARDIAG ordered. EDMS 12:51 Word Processor Operator/Pulse Ox/q 30 min VS ordered. br1 12:51 IV Saline Lock ordered. br1 12:51 Rhythm Strip to chart ordered. br1 12:51 Undress patient appropriately for examination ordered. br1 12:53 Basic Metabolic Profile Ordered. EDMS 12:53 CBC with Diff Ordered. EDMS 12:53 Cardiac Injury Profile Ordered. EDMS 12:53 Troponin Ordered. EDMS 12:53 Chest, 1 View Ordered. EDMS 13:13 Aspirin 324 mg PO once ordered. br1 13:44 CBC with Diff Reviewed. br1 14:05 Basic Metabolic Profile Reviewed. br1 14:05 Cardiac Injury Profile Reviewed. br1 14:05 Troponin Reviewed. br1 14:07 NS 0.9% 1000 ml IV at 150 mL/hr continuous ordered. br1 14:07 Admit to ED Observation status ordered. br1 14:07 Repeat EKG (put time details section) ordered. br1 14:07 Redraw CIP &Troponin (put time in details section) ordered. br1 14:16 Repeat EKG (put time details section) complete. deg 14:17 Redraw CIP &Troponin (put time in details section) complete. deg 14:17 ECG WITH READING ER PHYS ordered. EDMS 14:18 CARDIAC MARKER PANEL Ordered. EDMS 14:20 LOW FAT LOW CHOLESTEROL+DIET ordered. EDMS 14:32 Admit to ED Observation status complete. jjr 15:57 Financial registration complete. zo 16:00 [facility] Payment Agreement was scanned into [employer] and attached to record. zo 19:15 CARDIAC MARKER PANEL Reviewed. br1 19:15 Chest, 1 View Reviewed. br1 05/26 12:43 T-Sheet-- Draft Copy was scanned into [employer] and attached to record. gb 12:44 ECG/EKG was scanned into [employer] and attached to record. gb 12:44 Radiology Report was scanned into [employer] and attached to record. gb Administered Medications: 05/25 13:26 Drug: Aspirin 324 mg [aspirin 81 mg chewable tablet (4 tabs)] Route: PO; jjr 14:31 Drug: NS 0.9% 1000 ml [sodium chloride 0.9 % intravenous solution] Route: IV; Rate: 150 jjr mL/hr; Site: left antecubital; Signatures: Dispatcher [employer] EDMS Nehal Estrella, Corporate Services Manager Unit deg DejanErikaJahaira, Reg Reg gb Adriana-Taiwo,KeiryRN RN ck1 Becca Vega Brian, MD MD br1 Kathy Garcia RN RN jjr Lou Wills RN RN cf2 The chart was reviewed and I authenticate all verbal orders and agree with the evaluation and treatment provided.Attachments: 16:00 [facility] Payment Agreement zo 05/26 12:43 T-Sheet-- Draft Copy gb 12:44 ECG/EKG gb Chart Complete MTDD
--- NOTE | 2016-05-27 21:18 | EDDOCDS ---
Nurse's Notes [facility] Name: Bert Kirk Age: 56 yrs Sex: Male : 1960 Arrival Date: 05/25/2016 Time: 12:33 Bed OBSERVATION Private MD: Lee Ann Boswell Diagnosis: Chest pain, unspecified Presentation: 05/25 12:45 Presenting complaint: Patient states: Onset of chest pain last night at 2000, went ck1 away. [place] chest pain again this morning at approximately 11am, "broke out in cold sweat". Denies pain now. Aspirin was not taken prior to arrival. Adult Sepsis Screening: The patient does not have new or worsening altered mentation. Patient's respiratory rate is less than 22. Systolic blood pressure is greater than 100. Patient has a qSOFA score of 0- Negative Sepsis Screen. Suicide/Homicide risk assessment- the patient denies having any suicidal and/or homicidal ideations and does not present with any other emotional, behavioral or mental health complaints. Status: Patient is not a service mechanic or dependent. Transition of care: patient was not received from another setting of care. Red Flag criteria, patient assessed and taken directly to a bed. 12:45 Acuity: JHON Level 2 ck1 12:45 Method Of Arrival: Wheelchair ck1 Triage Assessment: 12:49 General: Appears in no apparent distress, comfortable, Behavior is anxious, appropriate ck1 for age. Pain: Location: chest Pain currently is 0 out of 10 on a pain scale. At worst was 4 out of 10 on a pain scale. Quality of pain is described as pressure. HIV screening NA for this visit Offered previously. Neurological: Level of Consciousness is awake, alert, obeys commands, Oriented to person, place, time. Cardiovascular: Chest pain is described as vague, radiates Does not radiate. episodes last 2-3 minutes began 2 hours prior to arrival. Respiratory: Respiratory effort is unlabored, Respiratory pattern is regular, symmetrical. Derm: Skin is pink, warm & dry. Musculoskeletal: No deficits noted. Historical: - Allergies: No known drug Allergies; - Home Meds: 1. aspirin 81 mg Oral tab 1 tab once daily 2. atenolol 50 mg Oral tab 1 tab once daily 3. atorvastatin 80 mg oral tab 1 tab once daily 4. doxycycline hyclate 100 mg Oral cap 1 cap every 12 hours 5. Ventolin INH 6. metformin 850 mg Oral tab 1 tab 7. losartin 50mg daily 8. fluticasone 50mcg 1 spray each nostril twice daily 9. doxycycline hyclate 100 mg Oral cap 2 times per day - PMHx: Diabetes - NIDDM: controlled; Hypertension; sinus infection; Myocardial infarction; - PSHx: none; - Social history: Smoking status: Patient uses tobacco products, heavy tobacco smoker. No barriers to communication noted, The patient speaks fluent Maltese, Speaks appropriately for age. - Family history: Not pertinent. - : The pt / caregiver states he / she is not on anticoagulants. Home medication list is obtained from the patient. - Exposure Risk Screening:: None identified. Screenin:08 Screening information is obtained from the patient. Fall risk: No risks identified. jjr Assistance ADL's: requires no assistance with activities of daily living. Abuse/DV Screen: The patient / caregiver reports he/she is: not in a situation that causes fear, pain or injury. Nutritional screening: No deficits noted. Advance Directives: There is no active DNR order. home support is adequate. Assessment: 13:07 General: Appears in no apparent distress, well nourished, well groomed, Behavior is jjr appropriate for age. Neurological: No deficits noted. Cardiovascular: Rhythm is sinus rhythm Chest pain is described as vague, quality is pressure, is located in substernal area episodes are continuous began 2 hours prior to arrival. Respiratory: Airway is patent Respiratory effort is even, unlabored, Respiratory pattern is regular. Derm: Skin is pink, warm & dry. 14:07 General: Appears in no apparent distress, Behavior is appropriate for age. jjr Cardiovascular: Rhythm is sinus rhythm Chest pain is denied. Respiratory: No deficits noted. Derm: Skin is pink, warm & dry. 15:12 General: Appears in no apparent distress, ambulatory to continues to deny chest jjr pain, c/o numbness to cheeks and fullness to ears and face. 16:07 General: Appears in no apparent distress. Neurological: No deficits noted. Reports jjr "tingling" to left side of head present for a couple of days. Cardiovascular: Rhythm is sinus rhythm Chest pain is denied. 17:36 General: Appears in no apparent distress. Cardiovascular: Rhythm is sinus rhythm Chest jjr pain is denied. Respiratory: No deficits noted. Derm: Skin is pink, warm & dry. 20:06 Adult Sepsis Screening: The patient does not have new or worsening altered mentation. cf2 Patient's respiratory rate is less than 22. Systolic blood pressure is greater than 100. Patient has a qSOFA score of 0- Negative Sepsis Screen. Pain: Denies pain. Vital Signs: 12:37 BP 148 / 73 LA Sitting (auto/lg); Pulse 86; Resp 20; Temp 99.0(O); Pulse Ox 97% on R/A; bnb Weight 99.79 kg (R); Height 5 ft. 8 in. (172.72 cm) (R); Pain 0/10; 13:07 BP 147 / 90 (auto/); jjr 13:07 Pulse 86 MON; Pulse Ox 96% ; jjr 13:22 BP 131 / 60 (auto/); jjr 13:22 Pulse 78 MON; Pulse Ox 96% ; jjr 13:37 BP 125 / 62 (auto/); jjr 13:37 Pulse 72 MON; Pulse Ox 95% ; jjr 13:52 BP 120 / 61 (auto/); jjr 13:52 Pulse 70 MON; Pulse Ox 93% ; jjr 14:06 Pulse 74 MON; Resp 18; Pulse Ox 95% on R/A; jjr 14:07 BP 127 / 73 (auto/); jjr 14:07 Pulse 72 MON; Pulse Ox 96% ; jjr 14:22 BP 131 / 63 (auto/); jjr 14:22 Pulse 68 MON; Pulse Ox 95% ; jjr 14:37 BP 121 / 60 (auto/); jjr 14:37 Pulse 66 MON; Pulse Ox 94% ; jjr 14:52 BP 119 / 61 (auto/); jjr 14:52 Pulse 68 MON; Resp 18; Pulse Ox 95% on R/A; jjr 15:11 BP 135 / 65 (auto/); jjr 15:12 Pulse 66 MON; Pulse Ox 96% ; jjr 16:11 BP 120 / 63 (auto/); jjr 16:11 Pulse 66 MON; Pulse Ox 95% ; jjr 17:11 BP 128 / 62 (auto/); jjr 17:11 Pulse 68 MON; Resp 18; Pulse Ox 94% on R/A; jjr 19:36 Pulse 70 MON; cf2 19:36 BP 122 / 71; Pulse 72; Resp 16; Temp 98.0; Pulse Ox 98% on R/A; Pain 0/10; cf2 20:05 Pulse 74 MON; cf2 12:37 Body Mass Index 33.45 (99.79 kg, 172.72 cm) bnb Vitals: 12:37 Log In Time: May 25, 2016 at 12:35. RN notified that patient meets Red Flag bnb criteria. ED Course: 12:35 Patient visited by Erin Conteh PCA. bnb 12:35 Patient moved to Waiting bnb 12:36 Lee Ann Boswell RPA-C is Private Physician. bnb 12:42 Kathy Garcia RN is Primary Nurse. bnb 12:42 Patient moved to 13 bnb 12:47 Triage Initiated ck1 12:51 Albina Becker MD is Attending Physician. br1 13:06 Basic Metabolic Profile Sent. jjr 13:06 CBC with Diff Sent. jjr 13:06 Cardiac Injury Profile Sent. jjr 13:06 Troponin Sent. jjr 13:06 Inserted saline lock: 20 gauge in left antecubital area and blood collected. Labs jjr drawn. (by ED staff). Sent per order to lab. 13:08 The patient / caregiver is instructed regarding the plan of care and ED course. Cardiac jjr monitor on. Pulse ox on. NIBP on. 13:08 EKG done. (by ED staff). Reviewed by Albina Becker MD. jjr 13:09 Patient visited by Kathy Garcia RN. jjr 13:12 Patient visited by Albina Becker MD. br1 14:08 Patient visited by Kathy Garcia RN. jjr 14:08 Chest, 1 View Returned. EDMS 14:09 Patient moved to OBSERVATION jjr 15:13 Patient visited by Kathy Garcia RN. jjr 16:00 [facility] Payment Agreement was scanned into [employer] and attached to record. zo 16:04 Patient name changed from Bert\\S\\\\S\\Reagan\\S\\ to Bert\\S\\ \\S\\Reagan. EDMS 16:08 Patient visited by Kathy Garcia, SHAINA. jjr 17:37 Patient visited by Kathy Garcia RN. jjr 18:29 CARDIAC MARKER PANEL Sent. jjr 18:46 EKG done. (by ED staff). Reviewed by Albina Becker MD. dem1 18:47 Patient visited by Trina Ruiz. dem1 19:15 Primary Nurse role handed off by Kathy Garcia, SHAINA cf2 19:15 Lou Wills,SHAINA is Primary Nurse. cf2 19:15 Patient visited by Lou Wills,SHAINA. cf2 19:30 Lee Ann Boswell RPA-C is Referral Physician. br1 19:30 Abiodun Monte is Referral Physician. br1 19:36 Discontinued lock. cf2 20:05 Patient visited by Lou Wills,SHAINA. cf2 20:06 Patient visited by Lou Wills,SHAINA. cf2 20:06 Patient has correct armband on for positive identification. Placed in gown. Bed in low cf2 position. Call light in reach. Side rails up X 1. Side rails up X2. 20:06 No procedures done that require assistance. cf2 20:13 Patient visited by Lou Wills RN. cf2 05/26 12:43 T-Sheet-- Draft Copy was scanned into [employer] and attached to record. gb 12:44 ECG/EKG was scanned into [employer] and attached to record. gb 12:44 Radiology Report was scanned into [employer] and attached to record. gb 20:02 EKG-ADULT Returned. EDMS 20:02 ECG WITH READING ER PHYS Returned. EDMS Administered Medications: 05/25 13:26 Drug: Aspirin 324 mg [aspirin 81 mg chewable tablet (4 tabs)] Route: PO; jjr 14:31 Drug: NS 0.9% 1000 ml [sodium chloride 0.9 % intravenous solution] Route: IV; Rate: 150 jjr mL/hr; Site: left antecubital; Order Results: Lab Order: Basic Metabolic Profile; SPEC' 05/25/16 13:03 Test: GLUCOSE, FASTING; Value: 149; Range: 70-105; Abnormal: Above high normal; Units: MG/DL; Status: F Test: BLOOD UREA NITROGEN; Value: 13; Range: 7-18; Units: MG/DL; Status: F Test: CREATININE FOR GFR; Value: 1.23; Range: 0.70-1.30; Units: MG/DL; Status: F Test: GLOMERULAR FILTRATION RATE; Value: > 60.0; Range: >56; Status: F Test: SODIUM LEVEL; Value: 138; Range: 136-145; Units: MEQ/L; Status: F Test: POTASSIUM SERUM; Value: 3.9; Range: 3.5-5.1; Units: MEQ/L; Status: F Test: CHLORIDE LEVEL; Value: 102; Range: 98-107; Units: MEQ/L; Status: F Test: CARBON DIOXIDE LEVEL; Value: 26; Range: 21-32; Units: MEQ/L; Status: F Test: ANION GAP; Value: 10; Range: 8-16; Units: MEQ/L; Status: F Test: CALCIUM LEVEL; Value: 8.9; Range: 8.5-10.1; Units: MG/DL; Status: F Test Note: ; Units are mL/min/1.73 m2 Chronic Kidney Disease Staging per NKF: Stage I & II GFR >=60 Normal to Mildly Decreased Stage III GFR 30-59 Moderately Decreased Stage IV GFR 15-29 Severely Decreased Stage V GFR <15 Very Little GFR Left ESRD GFR <15 on ASSESSMENT TECHNICIAN Lab Order: CBC with Diff; SPEC'M 05/25/16 13:03 Test: WHITE BLOOD COUNT; Value: 11.3; Range: 4.0-10.0; Abnormal: Above high normal; Units: K/mm3; Status: F Test: RED BLOOD COUNT; Value: 4.80; Range: 4.30-6.10; Units: M/mm3; Status: F Test: HEMOGLOBIN; Value: 15.7; Range: 14.0-18.0; Units: g/dl; Status: F Test: HEMATOCRIT; Value: 45.3; Range: 42.0-52.0; Units: %; Status: F Test: MEAN CORPUSCULAR VOLUME; Value: 94.3; Range: 80.0-96.0; Units: fl; Status: F Test: MEAN CORPUSCULAR HEMOGLOBIN; Value: 32.8; Range: 27.0-33.0; Units: pg; Status: F Test: MEAN CORPUSCULAR HGB CONC; Value: 34.8; Range: 32.0-36.5; Units: g/dl; Status: F Test: RED CELL DISTRIBUTION WIDTH; Value: 12.7; Range: 11.5-14.5; Units: %; Status: F Test: PLATELET COUNT, AUTOMATED; Value: 231; Range: 150-450; Units: k/mm3; Status: F Test: NEUTROPHILS %; Value: 72.2; Range: 36.0-66.0; Abnormal: Above high normal; Units: %; Status: F Test: LYMPH %; Value: 19.5; Range: 24.0-44.0; Abnormal: Below low normal; Units: %; Status: F Test: MONO %; Value: 4.8; Range: 0.0-5.0; Units: %; Status: F Test: EOS %; Value: 1.0; Range: 0.0-3.0; Units: %; Status: F Test: BASO %; Value: 0.7; Range: 0.0-1.0; Units: %; Status: F Test: LARGE UNSTAINED CELL %; Value: 1.9; Range: 0.0-4.0; Units: %; Status: F Test: NEUTROPHILS #; Value: 8.2; Range: 1.8-7.7; Abnormal: Above high normal; Units: K/mm3; Status: F Test: LYMPH #; Value: 2.2; Range: 1.5-4.5; Units: K/mm3; Status: F Test: MONO #; Value: 0.6; Range: 0.0-0.8; Units: K/mm3; Status: F Test: EOS #; Value: 0.1; Range: 0.0-0.50; Units: K/mm3; Status: F Test: BASO #; Value: 0.1; Range: 0.0-0.2; Units: K/mm3; Status: F Test: LARGE UNSTAINED CELL #; Value: 0.2; Range: 0.0-0.4; Units: K/mm3; Status: F Lab Order: Cardiac Injury Profile; SPEC'M 05/25/16 13:03 Test: CPK CREATINE PHOSPHOKINASE; Value: 485; Range: 39-308; Abnormal: Above high normal; Units: U/L; Status: F Test: CK-MB VALUE MASS; Value: 4.9; Range: 0.0-3.6; Abnormal: Above high normal; Units: NG/ML; Status: F Test: MB/CK RELATIVE INDEX; Value: 1.01; Range: < OR =4; Status: F Test Note: ; DIAGNOSIS CRITERIA MMB ng/ml Relative Index (RI) NON-AMI < or = 5 N/A [place] > 5 < or = 4 AMI > 5 > 4 Lab Order: Troponin; [facility] 05/25/16 13:03 Test: TROPONIN I; Value: < 0.02; Range: < 0.10; Units: NG/ML; Status: F Test Note: ; Troponin I Reference Interval for [place] LOCI: 99th Percentile= 0.00-0.045 ng/ml Risk Stratification: <= 0.10 ng/ml Decreased Risk for Adverse Clinical Events. 0.10-1.50 ng/ml Increased Risk for Adverse Clinical Events. Evaluation of additional criterion and/or repeat testing in 2-6 hours is suggested to rule out myocardial damage. >= 1.50 ng/ml Indicative of Myocardial Injury. Lab Order: CARDIAC MARKER PANEL; [facility] 05/25/16 18:29 Test: CPK CREATINE PHOSPHOKINASE; Value: 401; Range: 39-308; Abnormal: Above high normal; Units: U/L; Status: F Test: CK-MB VALUE MASS; Value: 3.5; Range: 0.0-3.6; Units: NG/ML; Status: F Test: MB/CK RELATIVE INDEX; Value: 0.87; Range: < OR =4; Status: F Test: TROPONIN I; Value: < 0.02; Range: < 0.10; Units: NG/ML; Status: F Test Note: ; DIAGNOSIS CRITERIA MMB ng/ml Relative Index (RI) NON-AMI < or = 5 N/A [place] > 5 < or = 4 AMI > 5 > 4 Radiology Order: EKG-ADULT Test: EKG-ADULT REASON FOR EXAMINATION: Chest Pain; Stationary ECG Study; [facility] ED; ; Test Date: 2016-05-25; Pat Name: BERT KIRK Department:; Room: -; Gender: M Dollyman: ; : 1960 Requested By: Low Khan; Order Number: [id number] Reading MD: Caridad Whitmore; Measurements; Intervals [place]; Rate: 86 P: 62; NM: 151 QRS: -35; QRSD: 125 T: 18; QT: 367; QTc: 441; Interpretive Statements; SINUS RHYTHM WITH OCCASIONAL VENTRICULAR PREMATURE COMPLEXES; LATERAL MYOCARDIAL INFARCTION, PROBABLY OLD; INFERIOR MYOCARDIAL INFARCTION, OF INDETERMINATE AGE; LAE; NSTTW ABNORMALITY; NO PRIOR FOR COMPARISON; Electronically Signed On 05-26-2016 19:40:16 EST by Caridad Whitmore; Radiology Order: Chest, 1 View Test: Chest, 1 View REASON FOR EXAMINATION: Chest Pain; Clinical: Acute chest pain .; ; Comparison: 07/19/05 .; ; Findings:; The mediastinum and cardiac silhouette are stable and mild cardiomegaly is; suggested. The lung reddy are clear without acute consolidation, effusion, or; pneumothorax. Skeletal structures are intact.; ; Impression:; Cardiomegaly. No focal consolidation.; ; ; Signed by; Ventura Wagner MD 05/25/2016 01:20 P; Radiology Order: ECG WITH READING ER PHYS Test: ECG WITH READING ER PHYS REASON FOR EXAMINATION: CHEST PAIN; Stationary ECG Study; [facility] ED; ; Test Date: 2016-05-25; Pat Name: BERT TELLEZINGTON Department:; Room: -; Gender: M Dollyman: laverne; : 1960 Requested By: ALBINA Rowell; Order Number: [id number] Reading MD: Caridad Whitmore; Measurements; Intervals [place]; Rate: 75 P: 56; NM: 159 QRS: -34; QRSD: 113 T: -7; QT: 341; QTc: 381; Interpretive Statements; SINUS RHYTHM; LOW QRS VOLTAGE IN PRECORDIAL LEADS; LATERAL MYOCARDIAL INFARCTION, PROBABLY OLD; INFERIOR MYOCARDIAL INFARCTION, PROBABLY OLD; DECREASED RATE 12:49; Electronically Signed On 05-26-2016 19:47:41 EST by Caridad Whitmore; Outcome: 19:31 Discharge ordered by Provider. br1 19:36 Discharge Assessment: Patient awake, alert and oriented x 3. No cognitive and/or cf2 functional deficits noted. Patient verbalized understanding of disposition instructions. Patient awake and alert. Oriented to person, place and time. patient administered narcotics -. The following High Risk Discharge criteria are identified: None. Discharged to home ambulatory, with significant other. Condition: good Condition: stable Condition: improved. Discharge instructions given to patient, significant other, Instructed on discharge instructions, follow up and referral plans. Demonstrated understanding of instructions, Pt was receptive of discharge instructions/ teaching. No special radiology studies were completed. Property :Personal belongings accompany Pt. 20:16 Patient left the ED. cf2 Signatures: Dispatcher [employer] EDMS Jahaira Wylie, Reg Reg gb Keiry Hayward,RN RN ck1 Becca Vega Brian, MD MD br1 Kathy Garcia, SHAINA RN Trina Broussard1 Lou Wills RN RN cf2 Erin Conteh, FIREMAN FIREMAN bnb Chart Complete MTDRose
--- NOTE | 2016-05-27 21:18 | EDDOCDS ---
Physician Documentation [facility] Name: Dilan Mack Age: 56 yrs Sex: Male : 1960 Arrival Date: 05/25/2016 Time: 12:33 Bed OBSERVATION Private MD: Lee Ann Boswell Disposition: 05/25/16 19:31 Discharged to Home/Self Care. Impression: Chest pain, unspecified. - Condition is Stable. - Discharge Instructions: Nonspecific Chest Pain. - Medication Reconciliation, Local Pharmacy Hours form. - Follow up: Lee Ann Boswell RPA-C; When: 2 - 3 days; Reason: Recheck today's complaints. Follow up: Abiodun Monte; When: 2 - 3 days; Reason: Recheck today's complaints. - Problem is new. - Symptoms are resolved. - Notes: You were seen in the ED for chest pain. Bloodwork showed no acute findings. EKG showed no evidence of new heart attack. Chest Xray showed enlarged heart but no other acute findings. We have consulted with Cardiology as well. As you are feeling better you may return home and will need to see your primary doctor as well as Dr. Monte of cardiology for further evaluation and testing. Please call in the morning to make these two appointments. Return to the ED for any return of chest pain, trouble breathing, lightheadedness, loss of consciousness or any other concerns. Historical: - Allergies: No known drug Allergies; - Home Meds: 1. aspirin 81 mg Oral tab 1 tab once daily 2. atenolol 50 mg Oral tab 1 tab once daily 3. atorvastatin 80 mg oral tab 1 tab once daily 4. doxycycline hyclate 100 mg Oral cap 1 cap every 12 hours 5. Ventolin INH 6. metformin 850 mg Oral tab 1 tab 7. losartin 50mg daily 8. fluticasone 50mcg 1 spray each nostril twice daily 9. doxycycline hyclate 100 mg Oral cap 2 times per day - PMHx: Diabetes - NIDDM: controlled; Hypertension; sinus infection; Myocardial infarction; - PSHx: none; - Social history: Smoking status: Patient uses tobacco products, heavy tobacco smoker. No barriers to communication noted, The patient speaks fluent French, Speaks appropriately for age. - Family history: Not pertinent. - : The pt / caregiver states he / she is not on anticoagulants. Home medication list is obtained from the patient. - Exposure Risk Screening:: None identified. Vital Signs: 05/25 12:37 BP 148 / 73 LA Sitting (auto/lg); Pulse 86; Resp 20; Temp 99.0(O); Pulse Ox 97% on R/A; bnb Weight 99.79 kg / 220 lbs (R); Height 5 ft. 8 in. (172.72 cm) (R); Pain 0/10; 13:07 BP 147 / 90 (auto/); jjr 13:07 Pulse 86 MON; Pulse Ox 96% ; jjr 13:22 BP 131 / 60 (auto/); jjr 13:22 Pulse 78 MON; Pulse Ox 96% ; jjr 13:37 BP 125 / 62 (auto/); jjr 13:37 Pulse 72 MON; Pulse Ox 95% ; jjr 13:52 BP 120 / 61 (auto/); jjr 13:52 Pulse 70 MON; Pulse Ox 93% ; jjr 14:06 Pulse 74 MON; Resp 18; Pulse Ox 95% on R/A; jjr 14:07 BP 127 / 73 (auto/); jjr 14:07 Pulse 72 MON; Pulse Ox 96% ; jjr 14:22 BP 131 / 63 (auto/); jjr 14:22 Pulse 68 MON; Pulse Ox 95% ; jjr 14:37 BP 121 / 60 (auto/); jjr 14:37 Pulse 66 MON; Pulse Ox 94% ; jjr 14:52 BP 119 / 61 (auto/); jjr 14:52 Pulse 68 MON; Resp 18; Pulse Ox 95% on R/A; jjr 15:11 BP 135 / 65 (auto/); jjr 15:12 Pulse 66 MON; Pulse Ox 96% ; jjr 16:11 BP 120 / 63 (auto/); jjr 16:11 Pulse 66 MON; Pulse Ox 95% ; jjr 17:11 BP 128 / 62 (auto/); jjr 17:11 Pulse 68 MON; Resp 18; Pulse Ox 94% on R/A; jjr 19:36 Pulse 70 MON; cf2 19:36 BP 122 / 71; Pulse 72; Resp 16; Temp 98.0; Pulse Ox 98% on R/A; Pain 0/10; cf2 20:05 Pulse 74 MON; cf2 12:37 Body Mass Index 33.45 (99.79 kg, 172.72 cm) bnb MDM: 12:46 ECG WITH READING ER PHYS+CARDIAG ordered. EDMS 12:51 Material Worker/Pulse Ox/q 30 min VS ordered. br1 12:51 IV Saline Lock ordered. br1 12:51 Rhythm Strip to chart ordered. br1 12:51 Undress patient appropriately for examination ordered. br1 12:53 Basic Metabolic Profile Ordered. EDMS 12:53 CBC with Diff Ordered. EDMS 12:53 Cardiac Injury Profile Ordered. EDMS 12:53 Troponin Ordered. EDMS 12:53 Chest, 1 View Ordered. EDMS 13:13 Aspirin 324 mg PO once ordered. br1 13:44 CBC with Diff Reviewed. br1 14:05 Basic Metabolic Profile Reviewed. br1 14:05 Cardiac Injury Profile Reviewed. br1 14:05 Troponin Reviewed. br1 14:07 NS 0.9% 1000 ml IV at 150 mL/hr continuous ordered. br1 14:07 Admit to ED Observation status ordered. br1 14:07 Repeat EKG (put time details section) ordered. br1 14:07 Redraw CIP &Troponin (put time in details section) ordered. br1 14:16 Repeat EKG (put time details section) complete. deg 14:17 Redraw CIP &Troponin (put time in details section) complete. deg 14:17 ECG WITH READING ER PHYS ordered. EDMS 14:18 CARDIAC MARKER PANEL Ordered. EDMS 14:20 LOW FAT LOW CHOLESTEROL+DIET ordered. EDMS 14:32 Admit to ED Observation status complete. jjr 15:57 Financial registration complete. zo 16:00 [facility] Payment Agreement was scanned into [employer] and attached to record. zo 19:15 CARDIAC MARKER PANEL Reviewed. br1 19:15 Chest, 1 View Reviewed. br1 05/26 12:43 T-Sheet-- Draft Copy was scanned into [employer] and attached to record. gb 12:44 ECG/EKG was scanned into [employer] and attached to record. gb 12:44 Radiology Report was scanned into [employer] and attached to record. gb Administered Medications: 05/25 13:26 Drug: Aspirin 324 mg [aspirin 81 mg chewable tablet (4 tabs)] Route: PO; jjr 14:31 Drug: NS 0.9% 1000 ml [sodium chloride 0.9 % intravenous solution] Route: IV; Rate: 150 jjr mL/hr; Site: left antecubital; Signatures: Dispatcher [employer] EDMS Nehal Estrella, Director Pharmacology Unit deg DejanErikaJahaira, Reg Reg gb Adriana-Taiwo,KeiryRN RN ck1 Becca Vega Brian, MD MD br1 Kathy Garcia RN RN jjr Lou Wills RN RN cf2 The chart was reviewed and I authenticate all verbal orders and agree with the evaluation and treatment provided.Attachments: 16:00 [facility] Payment Agreement zo 05/26 12:43 T-Sheet-- Draft Copy gb 12:44 ECG/EKG gb Chart Complete MTDD
== END 2016-05-25 20:16 | disposition home or self-care (01) ==
LOC: M ED 12:33
DX: R07.9 Chest pain, unspecified (principal); E11.9 Type 2 diabetes mellitus without complications; I10 Essential (primary) hypertension; I25.2 Old myocardial infarction; F17.210 Nicotine dependence, cigarettes, uncomplicated; Z79.84 Long term (current) use of oral hypoglycemic drugs; Z79.82 Long term (current) use of aspirin; Z79.899 Other long term (current) drug therapy

== ENCOUNTER 2016-06-15 09:39 | Emergency (ER) | payer OTHER ==
[~2016-06-15] VITALS: Ht 172.7 cm; Wt 93.0 kg
[2016-06-15] MEDS ORDERED: NS 500 ML IV ONE (10:30)
[2016-06-15 10:44] LABS: BASO # 0.1 K/mm3 (0.0-0.2); BASO % 0.6 % (0.0-1.0); EOS # 0.1 K/mm3 (0.0-0.50); LARGE UNSTAINED CELL # 0.2 K/mm3 (0.0-0.4); LARGE UNSTAINED CELL % 1.2 % (0.0-4.0); LYMPH % 16.4 % (24.0-44.0); MEAN CORPUSCULAR HEMOGLOBIN 32.1 pg (27.0-33.0); MEAN CORPUSCULAR HGB CONC 34.7 g/dl (32.0-36.5); MEAN CORPUSCULAR VOLUME 92.6 fl (80.0-96.0); MONO # 0.5 K/mm3 (0.0-0.8); MONO % 4.2 % (0.0-5.0); NEUTROPHILS # 9.4 K/mm3 (1.8-7.7); NEUTROPHILS % 76.6 % (36.0-66.0); PLATELET COUNT, AUTOMATED 266 k/mm3 (150-450); RED CELL DISTRIBUTION WIDTH 12.6 % (11.5-14.5); WHITE BLOOD COUNT 12.2 K/mm3 (4.0-10.0)
--- NOTE | 2016-06-15 10:57 | REP ---
Chest one-view HISTORY: Chest pain Comparison: 05/25/2016 The lungs are clear. The cardiac silhouette is enlarged. The pulmonary vasculature is normal in appearance. Impression: Cardiomegaly. Signed by Cedric Montenegro MD 06/15/2016 10:48 A
[2016-06-15 11:03] LABS: ALBUMIN 3.9 GM/DL (3.2-5.2); ALBUMIN/GLOBULIN RATIO 1.08 (1.00-1.93); ALKALINE PHOSPHATASE 54 U/L (45-117); ALT/SGPT 40 U/L (12-78); ANION GAP 11 MEQ/L (8-16); AST/SGOT 19 U/L (15-37); BILIRUBIN,DIRECT 0.2 MG/DL (0.0-0.2); BILIRUBIN,TOTAL 0.6 MG/DL (0.2-1.0); BLOOD UREA NITROGEN 16 MG/DL (7-18); CALCIUM LEVEL 9.1 MG/DL (8.5-10.1); CARBON DIOXIDE LEVEL 25 MEQ/L (21-32); CHLORIDE LEVEL 105 MEQ/L (98-107); CREATININE FOR GFR 1.08 MG/DL (0.70-1.30); FREE T4 1.09 NG/DL (0.76-1.46); GLOMERULAR FILTRATION RATE > 60.0 (>56); GLUCOSE, FASTING 134 MG/DL (70-105); POTASSIUM SERUM 4.2 MEQ/L (3.5-5.1); SODIUM LEVEL 141 MEQ/L (136-145); TOTAL PROTEIN 7.5 GM/DL (6.4-8.2)
[2016-06-15 14:25] VITALS: BP 132/68
--- NOTE | 2016-06-15 20:32 | ECGEPIP ---
Stationary ECG Study [facility] - ED Test Date: 2016-06-15 Pat Name: BERT KIRK Department: Room: - Gender: M Portfolio Manager: laverne : 1960 Requested By: Chidi Radford Order Number: [id number] Reading MD: Chidi Radford Measurements Intervals [place] Rate: 59 P: 66 CO: 162 QRS: -35 QRSD: 124 T: -27 QT: 371 QTc: 370 Interpretive Statements SINUS BRADYCARDIA INFERIOR MYOCARDIAL INFARCTION, OF INDETERMINATE AGE LAD DELAYED R WAVE PROGRESSION IVCD LOW QRS VOLTAGE IN PRECORDIAL LEADS CW 05/25/16 - RATE DECREASED Electronically Signed On 06-15-2016 20:31:36 EST by Chidi Radford
== END 2016-06-15 14:39 | disposition home or self-care (01) ==
LOC: M ED 10:47
DX: R00.2 Palpitations (principal); R07.9 Chest pain, unspecified; Z79.82 Long term (current) use of aspirin; Z79.899 Other long term (current) drug therapy; Z79.84 Long term (current) use of oral hypoglycemic drugs; F17.210 Nicotine dependence, cigarettes, uncomplicated; I20.9 Angina pectoris, unspecified; I25.10 Atherosclerotic heart disease of native coronary artery without angina pectoris; I25.2 Old myocardial infarction; J44.9 Chronic obstructive pulmonary disease, unspecified; I10 Essential (primary) hypertension; K52.9 Noninfective gastroenteritis and colitis, unspecified; E11.9 Type 2 diabetes mellitus without complications; M19.90 Unspecified osteoarthritis, unspecified site; M51.9 Unspecified thoracic, thoracolumbar and lumbosacral intervertebral disc disorder; M54.30 Sciatica, unspecified side

== ENCOUNTER → 2016-06-29 | Outpatient (REF) | payer OTHER | LOC: M LAB REF 20:37 | PROVIDERS: ATTEND Physician Assistant | DX: J02.9 Acute pharyngitis, unspecified (principal) ==

== ENCOUNTER → 2016-07-15 | Outpatient (CLI) | payer OTHER ==
[~2016-07-15] MED LIST changes: -PARO20TA2 PO; +PARO20TA3 PO
== END ==
LOC: M ADAMS 14:10
PROVIDERS: ATTEND Physician Assistant
DX: E78.4 Other hyperlipidemia (principal); E11.9 Type 2 diabetes mellitus without complications

== ENCOUNTER → 2016-07-15 | Outpatient (REF) | payer OTHER ==
[2016-07-15 17:42] LABS: ALBUMIN 3.5 GM/DL (3.2-5.2); ALBUMIN/GLOBULIN RATIO 1.21 (1.00-1.93); ALKALINE PHOSPHATASE 58 U/L (45-117); ALT/SGPT 40 U/L (12-78); ANION GAP 7 MEQ/L (8-16); AST/SGOT 18 U/L (15-37); BILIRUBIN,TOTAL 0.2 MG/DL (0.2-1.0); BLOOD UREA NITROGEN 14 MG/DL (7-18); CALCIUM LEVEL 8.5 MG/DL (8.5-10.1); CARBON DIOXIDE LEVEL 30 MEQ/L (21-32); CHLORIDE LEVEL 107 MEQ/L (98-107); CHOLESTEROL LEVEL 105 MG/DL (<200); CREATININE FOR GFR 1.01 MG/DL (0.70-1.30); FREE T4 1.01 NG/DL (0.76-1.46); GLOMERULAR FILTRATION RATE > 60.0 (>56); GLUCOSE, FASTING 112 MG/DL (70-105); POTASSIUM SERUM 4.8 MEQ/L (3.5-5.1); SODIUM LEVEL 144 MEQ/L (136-145); TOTAL PROTEIN 6.4 GM/DL (6.4-8.2); TRIGLYCERIDES LEVEL 85 MG/DL (<150)
== END ==
LOC: M SFHCADAM 08:08
PROVIDERS: ATTEND Physician Assistant
DX: E78.4 Other hyperlipidemia (principal); E11.9 Type 2 diabetes mellitus without complications

== ENCOUNTER → 2017-01-22 | Outpatient (REF) | payer OTHER ==
[~2017-01-22] MED LIST changes: -ATOR1TAB18 PO; +ATOR80TA59 PO; -METF850T PO; +METF850T4 PO
[2017-01-22 13:09] LABS: ALBUMIN 3.9 GM/DL (3.2-5.2); ALKALINE PHOSPHATASE 61 U/L (45-117); ALT/SGPT 39 U/L (12-78); ANION GAP 7 MEQ/L (8-16); AST/SGOT 21 U/L (15-37); BILIRUBIN,TOTAL 0.4 MG/DL (0.2-1.0); BLOOD UREA NITROGEN 22 MG/DL (7-18); CALCIUM LEVEL 9.1 MG/DL (8.5-10.1); CARBON DIOXIDE LEVEL 28 MEQ/L (21-32); CHLORIDE LEVEL 106 MEQ/L (98-107); CREATININE FOR GFR 1.16 MG/DL (0.70-1.30); GLOMERULAR FILTRATION RATE > 60.0 (>56); GLUCOSE, FASTING 126 MG/DL (70-105); SODIUM LEVEL 141 MEQ/L (136-145); TOTAL PROTEIN 6.9 GM/DL (6.4-8.2)
== END ==
LOC: M SFHCADAM 12:08
PROVIDERS: ATTEND Physician Assistant
DX: E11.9 Type 2 diabetes mellitus without complications (principal); E78.4 Other hyperlipidemia

== ENCOUNTER → 2017-04-21 | Outpatient (CLI) | payer OTHER ==
[2017-04-21 16:56] LABS: HEMATOCRIT 46.2 % (42.0-52.0); HEMOGLOBIN 15.5 g/dl (14.0-18.0); MEAN CORPUSCULAR HEMOGLOBIN 32.5 pg (27.0-33.0); MEAN CORPUSCULAR HGB CONC 33.5 g/dl (32.0-36.5); MEAN CORPUSCULAR VOLUME 96.9 fl (80.0-96.0); PLATELET COUNT, AUTOMATED 208 10^3/uL (150-450); RED BLOOD COUNT 4.77 10^6/uL (4.30-6.10); WHITE BLOOD COUNT 9.6 10^3/uL (4.0-10.0)
[2017-04-21 17:15] LABS: ALBUMIN 4.2 GM/DL (3.2-5.2); ALKALINE PHOSPHATASE 60 U/L (45-117); ALT/SGPT 34 U/L (12-78); ANION GAP 5 MEQ/L (8-16); AST/SGOT 21 U/L (7-37); BILIRUBIN,TOTAL 0.5 MG/DL (0.2-1.0); BLOOD UREA NITROGEN 19 MG/DL (7-18); CALCIUM LEVEL 8.8 MG/DL (8.5-10.1); CARBON DIOXIDE LEVEL 31 MEQ/L (21-32); CHLORIDE LEVEL 105 MEQ/L (98-107); CHOLESTEROL LEVEL 117 MG/DL (<200); CHOLESTEROL RISK RATIO 3.656 (<5); CREATININE FOR GFR 1.17 MG/DL (0.70-1.30); GLOMERULAR FILTRATION RATE > 60.0 (>56); GLUCOSE, FASTING 114 MG/DL (70-105); HDL CHOLESTEROL 32 MG/DL (>40); NON-HDL-C 85 MG/DL; SODIUM LEVEL 141 MEQ/L (136-145); TOTAL PROTEIN 7.2 GM/DL (6.4-8.2); TRIGLYCERIDES LEVEL 260 MG/DL (<150)
== END ==
LOC: M ADAMS 12:07
DX: I25.10 Atherosclerotic heart disease of native coronary artery without angina pectoris (principal); I11.9 Hypertensive heart disease without heart failure; R94.31 Abnormal electrocardiogram [ECG] [EKG]; I25.2 Old myocardial infarction
CPT/HCPCS: 80053

== ENCOUNTER → 2017-04-21 | Outpatient (REF) | payer OTHER | LOC: M SFHCADAM 12:02 | DX: E11.9 Type 2 diabetes mellitus without complications (principal); E78.4 Other hyperlipidemia; Z53.9 Procedure and treatment not carried out, unspecified reason ==

== ENCOUNTER → 2017-08-05 | Outpatient (REF) | payer OTHER ==
[2017-08-05 19:25] LABS: ALBUMIN 3.9 GM/DL (3.2-5.2); ALBUMIN/GLOBULIN RATIO 1.08 (1.00-1.93); ALKALINE PHOSPHATASE 64 U/L (45-117); ALT/SGPT 29 U/L (12-78); ANION GAP 4 MEQ/L (8-16); AST/SGOT 20 U/L (7-37); BILIRUBIN,TOTAL 0.4 MG/DL (0.2-1.0); BLOOD UREA NITROGEN 22 MG/DL (7-18); CARBON DIOXIDE LEVEL 29 MEQ/L (21-32); CHLORIDE LEVEL 107 MEQ/L (98-107); CREATININE FOR GFR 1.12 MG/DL (0.70-1.30); GLOMERULAR FILTRATION RATE > 60.0 (>56); GLUCOSE, FASTING 115 MG/DL (70-100); SODIUM LEVEL 140 MEQ/L (136-145); TOTAL PROTEIN 7.5 GM/DL (6.4-8.2)
[2017-08-05 19:29] LABS: ESTIMATED AVERAGE GLUCOSE 143 MG/DL (60-110); HEMOGLOBIN A1c 6.6 %
[2017-08-05 19:42] LABS: POTASSIUM SERUM 5.3 MEQ/L (3.5-5.1)
== END ==
LOC: M SFHCLERA 08:11 → M SFHCADAM 08:10
DX: E78.4 Other hyperlipidemia (principal); E11.9 Type 2 diabetes mellitus without complications
CPT/HCPCS: 80053

== ENCOUNTER → 2018-02-06 | Outpatient (REF) | payer OTHER ==
[2018-02-06 12:48] LABS: HEMATOCRIT 47.3 % (42.0-52.0); HEMOGLOBIN 15.6 g/dl (13.5-17.5); PLATELET COUNT, AUTOMATED 211 10^3/uL (150-450); RED BLOOD COUNT 4.73 10^6/uL (4.30-6.10); RED CELL DISTRIBUTION WIDTH 13.8 % (11.5-14.5); WHITE BLOOD COUNT 11.3 10^3/uL (4.0-10.0)
[2018-02-06 13:12] LABS: ALBUMIN 3.8 GM/DL (3.2-5.2); ALBUMIN/GLOBULIN RATIO 1.15 (1.00-1.93); ALKALINE PHOSPHATASE 60 U/L (45-117); ALT/SGPT 35 U/L (12-78); ANION GAP 8 MEQ/L (8-16); AST/SGOT 16 U/L (7-37); BILIRUBIN,TOTAL 0.4 MG/DL (0.2-1.0); BLOOD UREA NITROGEN 17 MG/DL (7-18); CARBON DIOXIDE LEVEL 30 MEQ/L (21-32); CHLORIDE LEVEL 105 MEQ/L (98-107); CREATININE FOR GFR 1.15 MG/DL (0.70-1.30); GLOMERULAR FILTRATION RATE > 60.0 (>56); GLUCOSE, FASTING 130 MG/DL (70-100); POTASSIUM SERUM 5.1 MEQ/L (3.5-5.1); SODIUM LEVEL 143 MEQ/L (136-145); TOTAL PROTEIN 7.1 GM/DL (6.4-8.2)
[2018-02-06 13:29] LABS: ESTIMATED AVERAGE GLUCOSE 148 MG/DL (60-110); HEMOGLOBIN A1c 6.8 %
== END ==
LOC: M SFHCADAM 07:54
DX: E11.9 Type 2 diabetes mellitus without complications (principal); F17.200 Nicotine dependence, unspecified, uncomplicated; I25.9 Chronic ischemic heart disease, unspecified
CPT/HCPCS: 80053

== ENCOUNTER → 2018-09-21 | Outpatient (CLI) | payer OTHER ==
[~2018-09-21] MED LIST changes: +LOSA25TA14 PO; -LOSA25TA8 PO; -LOSA50TA20 PO; +LOSA50TA88 PO
[2018-09-21 17:12] LABS: ALBUMIN 3.8 GM/DL (3.2-5.2); ALT/SGPT 38 U/L (12-78); BILIRUBIN,TOTAL 0.2 MG/DL (0.2-1.0); BLOOD UREA NITROGEN 23 MG/DL (7-18); CALCIUM LEVEL 9.1 MG/DL (8.5-10.1); CARBON DIOXIDE LEVEL 34 MEQ/L (21-32); CHLORIDE LEVEL 105 MEQ/L (98-107); CHOLESTEROL LEVEL 133 MG/DL (<200); CREATININE FOR GFR 1.06 MG/DL (0.70-1.30); FREE T4 0.87 NG/DL (0.76-1.46); GLOMERULAR FILTRATION RATE > 60.0 (>56); GLUCOSE, FASTING 138 MG/DL (70-100); HDL CHOLESTEROL 25 MG/DL (>40); LDL CHOLESTEROL 35 MG/DL (<100); NON-HDL-C 108 MG/DL; SODIUM LEVEL 141 MEQ/L (136-145); TOTAL PROTEIN 7.3 GM/DL (6.4-8.2); TRIGLYCERIDES LEVEL 367 MG/DL (<150)
[2018-09-21 17:27] LABS: HEMATOCRIT 50.2 % (42.0-52.0); HEMOGLOBIN 16.1 g/dl (13.5-17.5); MEAN CORPUSCULAR HEMOGLOBIN 33.7 pg (27.0-33.0); MEAN CORPUSCULAR HGB CONC 32.1 g/dl (32.0-36.5); PLATELET COUNT, AUTOMATED 188 10^3/uL (150-450); RED BLOOD COUNT 4.78 10^6/uL (4.30-6.10)
== END ==
LOC: M ADAMS 09:44
PROVIDERS: ATTEND Physician Assistant
DX: I11.0 Hypertensive heart disease with heart failure (principal); E11.9 Type 2 diabetes mellitus without complications; I51.89 Other ill-defined heart diseases; I25.9 Chronic ischemic heart disease, unspecified

== ENCOUNTER 2019-09-28 11:43 | Emergency (ER) | payer OTHER ==
[~2019-09-28] VITALS: Ht 170.2 cm; Wt 104.6 kg
[2019-09-28] MEDS ORDERED: AMLO10TA5 PO (12:01)
[2019-09-28] MEDS ORDERED: LOSA50TA88 PO (12:01)
[2019-09-28] MEDS ORDERED: CARV25TA PO (12:01)
[2019-09-28] MEDS ORDERED: ALL10TAB29 PO (12:01)
[2019-09-28 12:35] LABS: BASO # 0.1 10^3/uL (0.0-0.2); BASO % 0.8 % (0.0-1.0); EOS # 0.1 10^3/uL (0.0-0.5); EOS % 1.2 % (0.0-3.0); HEMATOCRIT 44.7 % (42.0-52.0); HEMOGLOBIN 15.1 g/dl (13.5-17.5); LYMPH # 2.6 10^3/uL (1.5-5.0); LYMPH % 23.1 % (24.0-44.0); MEAN CORPUSCULAR HEMOGLOBIN 32.2 pg (27.0-33.0); MEAN CORPUSCULAR HGB CONC 33.8 g/dl (32.0-36.5); MEAN CORPUSCULAR VOLUME 95.3 fl (80.0-96.0); MONO # 0.7 10^3/uL (0.0-0.8); NEUTROPHILS # 7.7 10^3/uL (1.5-8.5); NEUTROPHILS % 68.5 % (36.0-66.0); PLATELET COUNT, AUTOMATED 211 10^3/uL (150-450); RED BLOOD COUNT 4.69 10^6/uL (4.30-6.10); WHITE BLOOD COUNT 11.3 10^3/uL (4.0-10.0)
--- NOTE | 2019-09-28 12:37 | REP ---
Portable chest x-ray: Single view. History: Chest pain. Comparison chest x-ray: June 15, 2016. Findings: Monitoring electrodes overlie the chest. There is moderate cardiomegaly. The lungs are well inflated and clear. Pleural angles are sharp. Pulmonary vasculature is not increased. Impression: Moderate cardiomegaly. Otherwise no acute disease. Electronically Signed by Ga Lucio MD 09/28/2019 12:28 P
[2019-09-28 13:06] LABS: BLOOD UREA NITROGEN 15 MG/DL (7-18); CALCIUM LEVEL 9.3 MG/DL (8.5-10.1); CARBON DIOXIDE LEVEL 27 MEQ/L (21-32); CHLORIDE LEVEL 103 MEQ/L (98-107); CK-MB VALUE MASS 1.7 NG/ML (<3.6); CPK CREATINE PHOSPHOKINASE 169 U/L (39-308); CREATININE FOR GFR 0.94 MG/DL (0.70-1.30); GLOMERULAR FILTRATION RATE > 60.0 (>56); GLUCOSE, FASTING 152 MG/DL (70-100); MB/CK RELATIVE INDEX 1.01 (< OR =4); NT-PRO BNP 569 PG/ML (<125); POTASSIUM SERUM 4.3 MEQ/L (3.5-5.1); SODIUM LEVEL 135 MEQ/L (136-145); TROPONIN I < 0.02 NG/ML (< 0.10)
[2019-09-28 13:15] VITALS: BP 141/75
--- NOTE | 2019-09-29 15:44 | ECGEPIP ---
[facility] - ED Test Date: 2019-09-28 Pat Name: BERT KIRK Department: Room: - Gender: Male Fire Adjuster: : 1960 Requested By: Low Khan Order Number: [id number] Reading MD: Yaron Purdy Measurements Intervals [place] Rate: 75 P: 63 MS: 173 QRS: -18 QRSD: 129 T: 27 QT: 380 QTc: 425 Interpretive Statements SINUS RHYTHM INFERIOR MYOCARDIAL INFARCTION, PROBABLY OLD low voltages throughout Nonspecific T wave abnormality Similar to tracing done 06-25-16 Electronically Signed on 09-29-2019 15:43:54 EDT by Yaron Purdy
== END 2019-09-28 13:37 | disposition home or self-care (01) ==
LOC: M ED 11:43
DX: R00.2 Palpitations (principal); I49.3 Ventricular premature depolarization; I11.9 Hypertensive heart disease without heart failure; J44.9 Chronic obstructive pulmonary disease, unspecified; E11.9 Type 2 diabetes mellitus without complications; I25.2 Old myocardial infarction; Z79.51 Long term (current) use of inhaled steroids; Z79.82 Long term (current) use of aspirin; Z79.84 Long term (current) use of oral hypoglycemic drugs; Z87.891 Personal history of nicotine dependence

== ENCOUNTER → 2020-01-06 | Outpatient (REF) | payer OTHER ==
[~2020-01-06] MED LIST changes: +AMLO1TAB25 PO; -ASPI81TA85 PO; +ASPI81TA86 PO; +CARV25TA PO; +CETI-24 PO
[2020-01-06 13:39] LABS: HEMOGLOBIN 15.5 g/dl (13.5-17.5); MEAN CORPUSCULAR HGB CONC 33.7 g/dl (32.0-36.5); MEAN CORPUSCULAR VOLUME 97.9 fl (80.0-96.0); PLATELET COUNT, AUTOMATED 201 10^3/uL (150-450); WHITE BLOOD COUNT 11.1 10^3/uL (4.0-10.0)
[2020-01-06 14:12] LABS: HEMOGLOBIN A1c 7.9 %
[2020-01-06 15:06] LABS: MALB URINE SIEMENS 31.8 MG/L; MAU/CREAT RATIO 30.5 MCG/MG (0.0-30.0)
[2020-01-06 16:56] LABS: ALBUMIN 3.9 GM/DL (3.2-5.2); BILIRUBIN,TOTAL 0.5 MG/DL (0.2-1.0); BLOOD UREA NITROGEN 27 MG/DL (7-18); CALCIUM LEVEL 9.4 MG/DL (8.5-10.1); CARBON DIOXIDE LEVEL 27 MEQ/L (21-32); CHLORIDE LEVEL 98 MEQ/L (98-107); CHOLESTEROL LEVEL 145 MG/DL (<200); FREE T4 1.07 NG/DL (0.76-1.46); GLOMERULAR FILTRATION RATE > 60.0 (>56); GLUCOSE, FASTING 142 MG/DL (70-100); HDL CHOLESTEROL 27 MG/DL (>40); NON-HDL-C 118 MG/DL; POTASSIUM SERUM 4.8 MEQ/L (3.5-5.1); SODIUM LEVEL 134 MEQ/L (136-145); TOTAL PROTEIN 7.5 GM/DL (6.4-8.2); TRIGLYCERIDES LEVEL 427 MG/DL (<150)
[2020-01-06 18:15] LABS: ALT/SGPT 42 U/L (12-78)
== END ==
LOC: M SFHCADAM 12:37
PROVIDERS: ATTEND Physician Assistant
DX: I10 Essential (primary) hypertension (principal); F17.211 Nicotine dependence, cigarettes, in remission; I51.89 Other ill-defined heart diseases; E11.9 Type 2 diabetes mellitus without complications

== ENCOUNTER 2020-07-21 14:26 | Emergency (ER) | payer OTHER ==
[~2020-07-21] VITALS: Ht 167.6 cm; Wt 99.5 kg
[2020-07-21] MEDS ORDERED: NITR0.4S14 (14:46)
[2020-07-21] MEDS ORDERED: STEG15TA PO (14:46)
[2020-07-21] MEDS ORDERED: CHLO125TA (14:46)
[2020-07-21] MEDS ORDERED: MONT10TA10 PO (14:46)
[2020-07-21] MEDS ORDERED: LIDOCAINE VISCOUS 2% SOLN 15ML UDC PO ONE (15:45)
--- NOTE | 2020-07-21 16:05 | REP ---
INDICATION: CHEST PAIN. COMPARISON: 09/28/2019 also portable TECHNIQUE: Portable FINDINGS: The technique utilized in obtaining the radiograph has magnified the cardiac silhouette and accentuated the interstitial markings. The superior mediastinal structures are midline. The cardiac silhouette is enlarged and accentuated by technique. The diaphragmatic surfaces of the lungs are regular, and the costophrenic angles are clear. The pulmonary reddy are clear. The imaged osseous structures are intact. IMPRESSION: There is no acute cardiopulmonary disease. Or significant change compared to the prior exam. <Electronically signed by Faustino Avina > 07/21/20 4548
[2020-07-21 16:12] LABS: BASO # 0.1 10^3/uL (0.0-0.2); BASO % 0.7 % (0.0-1.0); EOS # 0.1 10^3/uL (0.0-0.5); EOS % 1.1 % (0.0-3.0); HEMATOCRIT 52.3 % (42.0-52.0); HEMOGLOBIN 17.9 g/dl (13.5-17.5); LYMPH % 23.3 % (24.0-44.0); MEAN CORPUSCULAR HEMOGLOBIN 32.5 pg (27.0-33.0); MEAN CORPUSCULAR HGB CONC 34.2 g/dl (32.0-36.5); MEAN CORPUSCULAR VOLUME 95.1 fl (80.0-96.0); MONO # 1.1 10^3/uL (0.0-0.8); MONO % 8.4 % (2.0-8.0); NEUTROPHILS # 8.5 10^3/uL (1.5-8.5); PLATELET COUNT, AUTOMATED 214 10^3/uL (150-450); WHITE BLOOD COUNT 12.9 10^3/uL (4.0-10.0)
[2020-07-21] MEDS ORDERED: ASPIRIN 81 MG CHEW TABLET PO ONE (16:25)
[2020-07-21 19:15] VITALS: BP 128/84
--- NOTE | 2020-07-22 10:11 | ECGEPIP ---
[facility] - ED Test Date: 2020-07-21 Pat Name: BERT KIRK Department: Room: - Gender: Male Oxygen Therapist: : 1960 Requested By: Caridad Whitmore Order Number: [id number] Reading MD: Caridad Whitmore Measurements Intervals [place] Rate: 66 P: 60 [place]: 166 QRS: -5 QRSD: 122 T: 51 QT: 418 QTc: 438 Interpretive Statements Normal sinus rhythm Inferior infarct , age undetermined low voltage NSTTW abnormalities decreased rate 09/28/19 Electronically Signed on 07-22-2020 10:11:41 EDT by Caridad Whitmore
--- NOTE | 2020-07-22 10:14 | ECGEPIP ---
[facility] - ED Test Date: 2020-07-21 Pat Name: BERT KIRK Department: Room: - Gender: Male Configuration Management Manager: : 1960 Requested By: HERNAN TABOR Order Number: [id number] Reading MD: Caridad Whitmore Measurements Intervals [place] Rate: 62 P: 65 [place]: 164 QRS: -7 QRSD: 120 T: 45 QT: 408 QTc: 414 Interpretive Statements Normal sinus rhythm Low voltage QRS Inferior infarct , age undetermined NSTTW abnormalities similar 07/21/20 Electronically Signed on 07-22-2020 10:14:07 EDT by Caridad Whitmore
== END 2020-07-21 19:39 | disposition home or self-care (01) ==
LOC: M ED 14:26
DX: R07.9 Chest pain, unspecified (principal); I25.2 Old myocardial infarction; I10 Essential (primary) hypertension; E11.9 Type 2 diabetes mellitus without complications; J44.9 Chronic obstructive pulmonary disease, unspecified; F17.200 Nicotine dependence, unspecified, uncomplicated

== ENCOUNTER → 2020-07-27 | Outpatient (REF) | payer OTHER ==
[~2020-07-27] MED LIST changes: +CHLO125TA; +MONT10TA10 PO; +NITR0.4S14; +STEG15TA PO
[2020-07-27 13:42] LABS: CHOLESTEROL RISK RATIO 4.333 (<5)
[2020-07-27 14:13] LABS: HEMOGLOBIN A1c 8.5 %
== END ==
LOC: M SFHCADAM 07:46
PROVIDERS: ATTEND Physician Assistant
DX: I25.10 Atherosclerotic heart disease of native coronary artery without angina pectoris (principal); E11.9 Type 2 diabetes mellitus without complications; E78.00 Pure hypercholesterolemia, unspecified

== ENCOUNTER → 2020-10-13 | Outpatient (REF) | payer OTHER ==
[2020-10-13 11:21] LABS: HEMOGLOBIN A1c 7.1 %
[2020-10-13 11:28] LABS: BLOOD UREA NITROGEN 21 MG/DL (7-18); CALCIUM LEVEL 9.3 MG/DL (8.5-10.1); CARBON DIOXIDE LEVEL 30 MEQ/L (21-32); CHLORIDE LEVEL 101 MEQ/L (98-107); CREATININE FOR GFR 1.15 MG/DL (0.70-1.30); GLOMERULAR FILTRATION RATE > 60.0 (>56); GLUCOSE, FASTING 138 MG/DL (70-100); POTASSIUM SERUM 4.4 MEQ/L (3.5-5.1); SODIUM LEVEL 140 MEQ/L (136-145)
== END ==
LOC: M SFHCADAM 08:13
PROVIDERS: ATTEND Physician Assistant
DX: E11.9 Type 2 diabetes mellitus without complications (principal); E78.00 Pure hypercholesterolemia, unspecified

== ENCOUNTER 2020-12-13 07:36 | Emergency (ER) | payer OTHER ==
[~2020-12-13] VITALS: Ht 172.7 cm; Wt 95.8 kg
[2020-12-13] MEDS ORDERED: VASOPRESSIN INJ 20 UNITS/ML VIAL IV ONE (07:37)
[2020-12-13] MEDS ORDERED: BISO5TAB14 PO (07:49)
[2020-12-13] MEDS ORDERED: AMLO1TAB25 PO (07:49)
[2020-12-13] MEDS: METOPROLOL 5 MG/5 ML VIAL IV SCH ×5 (08:10→08:25)
[2020-12-13] MEDS ORDERED: MIDAZOLAM INJ 2MG/2ML VIAL (J2250 PER 1MG) IV STA (08:24)
[2020-12-13 08:25] LABS: BASO # 0.1 10^3/uL (0.0-0.2); BASO % 0.4 % (0.0-1.0); HEMATOCRIT 57.9 % (42.0-52.0); HEMOGLOBIN 18.9 g/dl (13.5-17.5); LYMPH # 2.9 10^3/uL (1.5-5.0); LYMPH % 13.8 % (24.0-44.0); MEAN CORPUSCULAR HEMOGLOBIN 32.4 pg (27.0-33.0); MEAN CORPUSCULAR HGB CONC 32.6 g/dl (32.0-36.5); MEAN CORPUSCULAR VOLUME 99.3 fl (80.0-96.0); MONO # 1.9 10^3/uL (0.0-0.8); MONO % 9.3 % (2.0-8.0); NEUTROPHILS # 15.6 10^3/uL (1.5-8.5); NEUTROPHILS % 75.1 % (36.0-66.0); PLATELET COUNT, AUTOMATED 146 10^3/uL (150-450); RED BLOOD COUNT 5.83 10^6/uL (4.30-6.10)
[2020-12-13 08:27] LABS: WHITE BLOOD COUNT 20.7 10^3/uL (4.0-10.0)
[2020-12-13] MEDS ORDERED: HEPARIN SOD (PORCINE) 5000UNITS/ML 1ML VIAL/SYRINGE IV ONE (08:50)
[2020-12-13] MEDS ORDERED: HEPARIN DRIP 25,000 UNITS in IV 1 EA IV SCH (08:50)
[2020-12-13] MEDS ORDERED: ASPIRIN 81 MG CHEW TABLET PO ONE (08:50)
--- NOTE | 2020-12-13 08:54 | REP ---
INDICATION: CHEST PAIN. COMPARISON: Portable chest, 07/21/2020. TECHNIQUE: Upright AP portable chest image was obtained. FINDINGS: There is minimal left basilar atelectasis. The lungs are otherwise clear. There are no pleural effusions. There is cardiomegaly without congestive heart failure. The upper abdominal bowel gas pattern is normal. There are no bony abnormalities. IMPRESSION: 1. Minimal atelectasis in the left lung base. 2. Cardiomegaly not significantly changed. <Electronically signed by Asher Valente > 12/13/20 0849
[2020-12-13 08:59] LABS: INR 1.92; PROTHROMBIN TIME 22.4 SECONDS (12.7-14.5)
[2020-12-13] MEDS ORDERED: CLOPIDOGREL 300 MG TAB (PLAVIX) PO ONE (09:30)
[2020-12-13 09:45] LABS: RSV AMPLIFICATION NEGATIVE (NEGATIVE)
[2020-12-13 10:35] VITALS: BP 133/94
[2020-12-13 10:45] LABS: ALBUMIN 3.4 GM/DL (3.2-5.2); BILIRUBIN,DIRECT 0.4 MG/DL (0.0-0.2); BILIRUBIN,TOTAL 0.8 MG/DL (0.2-1.0); CALCIUM LEVEL 8.8 MG/DL (8.5-10.1); CREATININE FOR GFR 4.94 MG/DL (0.70-1.30); GLOMERULAR FILTRATION RATE 12.9 (>56); MAGNESIUM LEVEL 1.9 MG/DL (1.8-2.4); POTASSIUM SERUM 6.5 MEQ/L (3.5-5.1); THYROID STIMULATING HORMONE 2.45 uIU/ML (0.358-3.740); TOTAL PROTEIN 6.7 GM/DL (6.4-8.2)
[2020-12-13] MEDS ORDERED: CALCIUM CHLORIDE 10% 1 GM in D5W 100 ML IV ONE (10:50)
--- NOTE | 2020-12-13 16:55 | ECGEPIP ---
[facility] - ED Test Date: 2020-12-13 Pat Name: BERT KIRK Department: Room: - Gender: Male Senior Payroll Specialist: CIRILO : 1960 Requested By: Caridad Whitmore Order Number: [id number] Reading MD: Caridad Whitmore Measurements Intervals [place] Rate: 171 P: MD: QRS: 210 QRSD: 170 T: 42 QT: 296 QTc: 499 Interpretive Statements Wide QRS tachycardia Right bundle branch block Inferior infarct , age undetermined Anterolateral infarct , age undetermined 07/21/20 sinus rhythm clinical correlation Electronically Signed on 12-13-2020 16:55:11 EDT by Caridad Whitmore
--- NOTE | 2020-12-13 16:56 | ECGEPIP ---
[facility] - ED Test Date: 2020-12-13 Pat Name: BERT KIRK Department: Room: - Gender: Male Title I Math Tutor: LINDSAY : 1960 Requested By: Caridad Whitmore Order Number: [id number] Reading MD: Caridad Whitmore Measurements Intervals [place] Rate: 66 P: 66 [place]: 154 QRS: 58 QRSD: 114 T: 116 QT: 416 QTc: 436 Interpretive Statements Normal sinus rhythm Low voltage QRS Inferior infarct , possibly acute, clinical correlation T wave abnormality, consider lateral ischemia prior wide complex tachycardia 7:54 Electronically Signed on 12-13-2020 16:55:51 EDT by Caridad Whitmore
--- NOTE | 2020-12-13 16:56 | ECGEPIP ---
[facility] - ED Test Date: 2020-12-13 Pat Name: BERT KIRK Department: Room: - Gender: Male Secretary Book Keeper: CIRILO : 1960 Requested By: Caridad Whitmore Order Number: [id number] Reading MD: Caridad Whitmore Measurements Intervals [place] Rate: 68 P: 83 [place]: 158 QRS: 11 QRSD: 78 T: 115 QT: 406 QTc: 431 Interpretive Statements Sinus rhythm Low voltage QRS Inferior infarct , possibly acute T wave abnormality, consider lateral ischemia Consider right ventricular involvement in acute inferior infarct similar 12/13/20 8:38 Electronically Signed on 12-13-2020 16:56:39 EDT by Caridad Whitmore
== END 2020-12-13 10:39 | disposition short-term general hospital (02) ==
LOC: M ED 07:36
DX: I47.2 Ventricular tachycardia (principal); E11.9 Type 2 diabetes mellitus without complications; I10 Essential (primary) hypertension; F17.200 Nicotine dependence, unspecified, uncomplicated; I25.2 Old myocardial infarction
CPT/HCPCS: 71045; 80047; 80048; 80076; 83690; 83735; 83880; 84443; 85025; 85610; 87631; 93005; 93041; 94760; 96365; 96375; 99285; J1644; J2250

== ENCOUNTER → 2020-12-27 | Outpatient (REF) | payer OTHER ==
[~2020-12-27] MED LIST changes: +BISO5TAB14 PO
[2020-12-27 12:52] LABS: ALBUMIN 3.7 GM/DL (3.2-5.2); ALT/SGPT 116 U/L (12-78); BILIRUBIN,TOTAL 0.7 MG/DL (0.2-1.0); BLOOD UREA NITROGEN 25 MG/DL (7-18); CALCIUM LEVEL 9.5 MG/DL (8.5-10.1); CARBON DIOXIDE LEVEL 30 MEQ/L (21-32); CHLORIDE LEVEL 99 MEQ/L (98-107); CREATININE FOR GFR 1.26 MG/DL (0.70-1.30); GLOMERULAR FILTRATION RATE > 60.0 (>56); GLUCOSE, FASTING 168 MG/DL (70-100); MAGNESIUM LEVEL 1.9 MG/DL (1.8-2.4); NT-PRO BNP 1141 PG/ML (<125); POTASSIUM SERUM 4.5 MEQ/L (3.5-5.1); SODIUM LEVEL 137 MEQ/L (136-145); TOTAL PROTEIN 7.4 GM/DL (6.4-8.2)
== END ==
LOC: M LABDRWAD 11:50
PROVIDERS: ATTEND Physician Assistant
DX: I25.10 Atherosclerotic heart disease of native coronary artery without angina pectoris (principal)

== ENCOUNTER → 2021-01-12 | Outpatient (REF) | payer OTHER ==
[2021-01-12 13:15] LABS: HEMATOCRIT 53.5 % (42.0-52.0); HEMOGLOBIN 17.7 g/dl (13.5-17.5); MEAN CORPUSCULAR HGB CONC 33.1 g/dl (32.0-36.5); MEAN CORPUSCULAR VOLUME 96.7 fl (80.0-96.0); PLATELET COUNT, AUTOMATED 208 10^3/uL (150-450); RED BLOOD COUNT 5.53 10^6/uL (4.30-6.10); WHITE BLOOD COUNT 10.2 10^3/uL (4.0-10.0)
[2021-01-12 14:05] LABS: ALBUMIN 3.9 GM/DL (3.2-5.2); ALT/SGPT 34 U/L (12-78); BILIRUBIN,TOTAL 0.5 MG/DL (0.2-1.0); BLOOD UREA NITROGEN 16 MG/DL (7-18); CALCIUM LEVEL 9.8 MG/DL (8.5-10.1); CARBON DIOXIDE LEVEL 34 MEQ/L (21-32); CHLORIDE LEVEL 99 MEQ/L (98-107); CHOLESTEROL LEVEL 132 MG/DL (<200); FREE T4 1.23 NG/DL (0.76-1.46); GLOMERULAR FILTRATION RATE > 60.0 (>56); GLUCOSE, FASTING 141 MG/DL (70-100); HDL CHOLESTEROL 30 MG/DL (>40); LDL CHOLESTEROL 68 MG/DL (<100); NON-HDL-C 102 MG/DL; POTASSIUM SERUM 4.3 MEQ/L (3.5-5.1); SODIUM LEVEL 139 MEQ/L (136-145); TOTAL PROTEIN 7.3 GM/DL (6.4-8.2); TRIGLYCERIDES LEVEL 169 MG/DL (<150)
[2021-01-12 14:06] LABS: FOLATE 12.2 NG/ML; VITAMIN B12 LEVEL 693 PG/ML
[2021-01-12 18:29] LABS: HEMOGLOBIN A1c 6.8 %
== END ==
LOC: M SFHCADAM 08:05
PROVIDERS: ATTEND Physician Assistant
DX: E11.9 Type 2 diabetes mellitus without complications (principal); E78.00 Pure hypercholesterolemia, unspecified; F17.211 Nicotine dependence, cigarettes, in remission; Z12.5 Encounter for screening for malignant neoplasm of prostate

== ENCOUNTER → 2021-01-28 | Outpatient (REF) | payer OTHER ==
[2021-01-28 13:33] LABS: ALBUMIN 3.9 GM/DL (3.2-5.2); ALT/SGPT 32 U/L (12-78); BILIRUBIN,TOTAL 0.5 MG/DL (0.2-1.0); BLOOD UREA NITROGEN 16 MG/DL (7-18); CALCIUM LEVEL 9.9 MG/DL (8.5-10.1); CARBON DIOXIDE LEVEL 32 MEQ/L (21-32); CHLORIDE LEVEL 100 MEQ/L (98-107); GLOMERULAR FILTRATION RATE > 60.0 (>56); GLUCOSE, FASTING 141 MG/DL (70-100); MAGNESIUM LEVEL 2.1 MG/DL (1.8-2.4); NT-PRO BNP 762 PG/ML (<125); POTASSIUM SERUM 4.4 MEQ/L (3.5-5.1); SODIUM LEVEL 137 MEQ/L (136-145); TOTAL PROTEIN 7.6 GM/DL (6.4-8.2)
== END ==
LOC: M LABDRWAD 12:35
PROVIDERS: ATTEND Physician Assistant
DX: I25.10 Atherosclerotic heart disease of native coronary artery without angina pectoris (principal)

== ENCOUNTER 2021-02-21 00:19 | Emergency (ER) | payer OTHER ==
[~2021-02-21] VITALS: Ht 170.2 cm; Wt 90.9 kg
--- OUTSIDE RECORDS SUMMARY | 2021-02-21 00:29 | CCD ---
Author Author [facility] Organization [facility] Address Unknown Phone Unavailable Care Team Providers Care Tractor Mechanic Helper Name Role Phone Lee Ann Boswell Unavailable PROBLEMS Type Condition ICD9-CM Code MHL90-WH Code Onset Dates Condition S tatus W/U Status Risk SNOMED Code Notes Problem Essential (primary) hypertension I10 Active conf irmed 42534872 Problem Type 2 diabetes mellitus without complications E11 .9 Active confirmed 523195746 Problem Other hyperlipidemia E78.4 Active confirmed 48371565 Problem Arthritis of left hand M19.90 Active confirmed 116397473 Problem Anxiety disorder, unspecified F41.9 Active confirm ed 422673076 Problem 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 Active confirmed 121298339 Problem Chronic bilateral low back pain with bilateral sciatica M54.42 Active confirmed 454371922 Problem Obesity (BMI 30-39.9) E66.9 Active confirmed 900417238 Problem Chronic frontal sinusitis J32.1 Active confirmed 48599609 Problem Allergic sinusitis J30.9 Active confirmed 3 6372234 Problem Non-seasonal allergic rhinitis, unspecified trigger J30.89 Active confirmed 58861468 Problem Chronic ischemic heart disease, 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 Active confirmed 182190243 Problem Pure hypercholesterolemia E78.00 Active confirmed 154168493 Problem Vasomotor rhinitis J30.0 Active confirmed 8 001317 Problem Cigarette nicotine dependence without complication F17.210 Active confirmed 97331365 Problem Cigarette nicotine dependence in remission F17.211 Active confirmed 195282915 Problem Nicotine dependence, unspecified, uncomplicated F1 7.200 Active confirmed 584030919 Problem Coronary artery disease invo lving [place] coronary artery of [place] heart without angina pectoris I25.10 Active confirmed 201414 000 ALLERGIES No Known Allergies ENCOUNTERS from 1960 to 2021-01-04 Encounter Location Date Provider Diagnosis [facility] [address] [place] [address] Dec, Lee Ann Boswell IMMUNIZATIONS Vaccine Route Administration Date Status Influenza 18 yrs & older Flublok IM Intramuscular Jan 15, 2020 Administered Pneumococcal Adult 0.5mL Pneumovax 23 IM Intramuscular Jan 25 017 Administered Influenza 6mo & up Fluzone IM Intramuscular Jan 25, 2017 Admi nistered SOCIAL HISTORY Tobacco Use: Social History Observation Description Date Details (start date - stop date) Former Smoker Sex Assigned At : Social History Observation Description Sex Assigned At Unknown Language: Question Answer Notes Languages spoken: Thai Domestic Violence: Question Answer Notes Status: Sexual Hx: Question Answer Notes Had sex in the last 12 months (vaginal, oral, or anal)? No Have you ever had an STD? No Alcohol Screening: Question Answer Notes Did you have a drink containing alcohol in the past year? Ye s Points 2 Interpretation Negative How often did you have six or more drinks on one occas ion in the past year? Less than monthly (1 point) How many drinks did you have on a typica l day when you were drinking in the past year? 1 or 2 (0 points) How often did you have a drink containing alcohol in t he past year? Monthly or less (1 point) BMI Care Goal Follow-Up Question Answer Notes Above Normal BMI Follow-Up Dietary management educatio n, guidance, and counseling Tobacco Use: Question Answer Notes Are you a: former smoker Additional Findings: Tobacco User 1-3 ci gs per pt How long has it been since you last smoked? 3-6 months REASON FOR REFERRAL No Information VITAL SIGNS No information MEDICATIONS Medication SIG (Take, Route, Frequency, Duration) Notes Start Da te End Date Status metFORMIN HCl ER 500 MG TAKE 2 TABLETS BY MOUTH WITH EVENING MEAL Active Steglatro 15 MG TAKE ONE TABLET BY MOUTH EVERY DAY Active Furosemide 40 MG 1 tablet Orally BID Active Atorvastatin Calcium 80 MG TAKE ONE TABLET BY MOUTH EVERY DAY for 90 Active FreeStyle Lite Test - as directed In Vitro dx e11. 9 three times daily for 25 days Jul, Active Bisoprolol Fumarate 5 MG TAKE 1 TABLET BY MOUTH ONCE DAILY Oral for 1 4 Active Lancets - as directed DX:E11.9 Daily for 30 Days Jul, Active Fluticasone Propionate 50 MCG/ACT 1 spray in each nostril Nasall y twice a day Jul, Active Singulair 10 MG 1 tablet Orally Once a day for 30 Active SM Aspirin Adult Low Strength 81 MG TAKE ONE TABLET BY MOUTH BEAN RY DAY for 90 Active Blood Glucose Test - as directed In Vitro Daily for 50 days Jul, Active Plavix 75 MG 1 tablet Orally Once a day for 30 day(s) Active Ventolin HFA 90 MCG/ACT 2 puffs as needed Inhalation every 4 hrs for 17 Active Blood Glucose Monitor System w/Device as directed DX:E 11.9 as directed for 90 day(s) Jul, Active Nitroglycerin 0.4 MG as directed Sublingual place under tongue every 5mins x'3 call ambulance Active Montelukast Sodium 10 MG TAKE ONE TABLET BY MOUTH EVERY DAY for 30 Active PROCEDURES No Information RESULTS No Results REASON FOR VISIT Blood work results MEDICAL (GENERAL) HISTORY Type Description Date Medical History Hypertension Medical History Hyperlipidemia Medical History Coronary artery disease s/p NM unknown date - diagnosed on catherization 07/2005 Medical History Diabetes mellitus type II Medical History Anxiety Medical History Cardiac catheterization 07/20 - [facility] - Dr. Navarro - dominant right coronary artery - totally occluded and recanalized. Main LCA normal. LAD normal, minor plaquing in circumflex. Left to right collaterals. Medical History Diverticulosis Medical History Periumbilical hernia - conta ining fat - dx'd on Contrast enhanced CT 08/26/2008. Medical History Smoker Quite 09/2014, 12/2017 Medical History ?COPD Medical History diabetic neuropathy Medical History Echo 06/2016 - LV mild dialte d, akinesis basal mid, apical inferior, inferioseptal segmanets of LV, EF 40% Medical History CArdiac Cath 06/2016 - Chroni adi occluded RCA with bridging collaterals, LVEF 40% with akinesis Medical History Echo 2017 - Dilated LV, Syst olic and Diastolic dysfunction EF 40% Medical History QRS tachycardia - defibrillated - ICD p laced 12/2020 Surgical History cardiac catheterization 06/23; 12/26/20 Surgical History cardiac pacemeker 12/27/20 Hospitalization History surgery Hospitalization History cardiac arrest; [facility] 12/2020 Goals Section No Information Health Concerns No Information MEDICAL EQUIPMENT No Information MENTAL STATUS No Information FUNCTIONAL STATUS No Information ASSESSMENTS No Information PLAN OF TREATMENT Medication Medication Name Sig Start Date Stop Date metFORMIN HCl ER 500 MG TAKE 2 TABLETS BY MOUTH WITH EVENING LONA L Steglatro 15 MG TAKE ONE TABLET BY MOUTH EVERY DAY Next Appt Details Provider Name:Lee Ann Boswell, 2021-01 08:00:00 AM, [address], , [place], [address], Insurance Providers Payer Name Payer Address Payer Phone Insured Name Patient Relati onship to Insured Coverage Start Date Coverage End Date [facility] [address] [facility] [id number] BERT KIRK self
--- OUTSIDE RECORDS SUMMARY | 2021-02-21 00:29 | CCD | Continuity of Care Document ---
Author Author Dilan VASQUEZ Organization Unknown Address [address] [place] [address], [place] [address] Phone [phone] Care Team Providers Care Bulldozer Mechanic Name Role Phone Link Becker MD AUTM [phone] Lee Ann Boswell AUTM [phone] Leo Hylton MD AUTM [phone] Problems Active Problems Provider Date Precordial pain Abiodun Monte MD Onset: 06/07/2016 Cardiomegaly Abiodun Monte MD Onset: 06/07/2016 Electrocardiogram abnormal Abiodun Monte MD Onset: 2016 Old myocardial infarction Abiodun Monte MD Onset: 017 Chronic obstructive lung disease Abiodun Monte MD Onset: 06/07/2016 Tobacco user Abiodun Monte MD Onset: 06/07/2016 Atherosclerotic heart disease of [place] coronary arter y without angina pectoris Abiodun Monte MD Onset: 06/07/2016 Hypertensive heart disease without congestive heart failure Abiodun Monte MD Onset: 06/07/2016 Body mass index 30+ - obesity Abiodun Monte MD Onset: Edema Abiodun Monte MD Onset: 05/01/2017 Dietary management surveillance AZAEL Ayon Onset: 08/09/2017 Chronic ischemic heart disease AZAEL Ayon Onset: 0 08/09/2017 Hypertensive heart disease with heart failure AZAEL Ibrahim Onset: 03/11/2018 Automatic implantable cardiac defibrillator in situ AZAEL Lin Onset: 12/23/2020 Paroxysmal ventricular tachycardia AZAEL De La Fuente On set: 12/23/2020 Social History Type Date Description Comments Sex Unknown ETOH Use Does not consume alcohol Tobacco Use Start: Unknown End: Unknown Patient is a former smoker since age 16; at most 2 ppd; quit 04/24/20 Smoking Status Reviewed: 12/23/20 Patient is a former smoker si nce age 16; at most 2 ppd; quit 04/24/20 Exercise Type/Frequency Walks daily Exercise Type/Frequency Does yardwork twice a we ek and some snow shoveling, snow blowing as needed Exercise Type/Frequency Does housework sporadica lly Exercise Limitations Back Pain Exercise Limitations Joint Pain bilateral k nees Allergies, Adverse Reactions, Alerts Description No Known Drug Allergies Medications Active Medications SIG Qnty Indications Ordering Provide r Date Nicotine Transdermal System Step 1 21mg/24HR Patches 24HR 1 patch each day for 6 weeks 42units F17.210 Abiodun de la garza MD 12/23/2020 Clopidogrel Bisulfate 75mg Tablets 1 by mouth every day 30tabs AZAEL De La Fuente 1 Furosemide 40mg Tablets 1 by mouth twice every day 60tabs AZAEL De La Fuente 1 Metformin HCL 500mg Tablets 2 by mouth once daily Leo Hylton MD 12/22/2020 Bisoprolol Fumarate 5mg Tablets take 1 by mouth every day 14tabs I25.10 Abiodun Monte MD 07/29/2020 Montelukast Sodium 10mg Tablets 1 by mouth every day Lee Ann Boswell PA 021 Steglatro 15mg Tablets 1 by mouth once a day LeeA nn Boswell PA 021 Nitrostat 0.4mg Tablets Sub 1 sl every 5min x3 as needed for chest pain 25tabs Yaron dang MD 06/08/2016 Ventolin HFA 108(90Base) mcg/Act A erosol 2 puffs as needed Unknown 06/06/2016 Atorvastatin Calcium 80mg Tablets 1 by mouth every day Unknown 06/06/[address] 1 by mouth every day Unknown 06/06/2016 History Medications Bisoprolol Fumarate 10mg Tablets take 1 by mouth every day 135tabs I25.10 Abiodun Monte MD 07/29/2020 - 07/29/2020 Immunizations Description No Information Available Vital Signs Date Vital Result Comment 12/23/2020 10:58am Weight 198.00 lb Home Weight 198lb Height 68 inches 5'8" BMI (Body Mass Index) 30.1 kg/m2 BP Systolic Sitting 124 mmHg Ra, medium cuff BP Diastolic Sitting 82 mmHg Ra, medium cuff 07/29/2020 3:25pm Weight 216.00 lb Home Weight 219lb Height 68 inches 5'8" BMI (Body Mass Index) 32.8 kg/m2 BP Systolic Sitting 126 mmHg Ra, large cuff BP Diastolic Sitting 82 mmHg Ra, large cuff Results Test Acquired Date Facility Test Result H/L Range Note Laboratory test finding 12/27/2020 [facility] [phone] NT-Pro BNP 1141 pg/mL High <125 CMP 12/27/2020 [facility] [phone] Glucose, Fasting 168 mg/dL High 70-100 Blood Urea Nitrogen 25 mg/dL High 7-18 Creatinine For GFR 1.26 mg/dL Normal 0.70-1.30 Glomerular Filtration Rate > 60.0 Normal >56 1 Sodium Level 137 mEq/L Normal 136-145 Potassium Serum 4.5 mEq/L Normal 3.5-5.1 Chloride Level 99 mEq/L Normal 98-107 Carbon Dioxide Level 30 mEq/L Normal 21-32 Anion Gap 8 mEq/L Normal 8-16 Calcium Level 9.5 mg/dL Normal 8.5-10.1 Ast/Sgot 36 U/L Normal 7-37 Alt/SGPT 116 U/L High 12-78 Alkaline Phosphatase 71 U/L Normal 45-117 Bilirubin,Total 0.7 mg/dL Normal 0.2-1.0 Total Protein 7.4 GM/DL Normal 6.4-8.2 Albumin 3.7 GM/DL Normal 3.2-5.2 Albumin/Globulin Ratio 1.0 Normal Laboratory test finding 12/27/2020 [facility] [phone] Magnesium Level 1.9 mg/dL Normal 1.8-2.4 Liver Profile 12/13/2020 [facility] [phone] Ast/Sgot 5044 U/L High 7-37 Alt/SGPT 5023 U/L High 12-78 Alkaline Phosphatase 49 U/L Normal 45-117 Bilirubin,Total 0.8 mg/dL Normal 0.2-1.0 Bilirubin,Direct 0.4 mg/dL High 0.0-0.2 Total Protein 6.7 GM/DL Normal 6.4-8.2 Albumin 3.4 GM/DL Normal 3.2-5.2 Albumin/Globulin Ratio 1.0 Normal Basic Metabolic Profile 12/13/2020 [facility] [phone] Glucose, Fasting 150 mg/dL High 70-100 Blood Urea Nitrogen 58 mg/dL High 7-18 Creatinine For GFR 4.94 mg/dL High 0.70-1.30 Glomerular Filtration Rate 12.9 Low >56 2 Sodium Level 133 mEq/L Low 136-145 Potassium Serum 6.5 mEq/L Critical high 3.5-5.1 Chloride Level 97 mEq/L Low 98-107 Carbon Dioxide Level 21 mEq/L Normal 21-32 Anion Gap 15 mEq/L Normal 8-16 Calcium Level 8.8 mg/dL Normal 8.5-10.1 Laboratory test finding 12/13/2020 [facility] [phone] Magnesium Level 1.9 mg/dL Normal 1.8-2.4 NT-Pro BNP 11411 pg/mL High <125 Lipase 204 U/L Normal 73-393 Thyroid Stimulating Hormone 2.450 uIU/ML Normal 0.358-3.740 Prothrombin Time/Inr 12/13/2020 [facility] [phone] Prothrombin Time 22.4 seconds High 12.7-14.5 Inr 1.92 Normal 3 Lipid Profile/Cardiac Risk Pro 07/27/2020 [facility] - not interfaced (315)- - Triglycerides 297 High <150 Cholesterol 117 <200 HDL 27 Low >40.0 LDL Cholesterol 31 Chol/HDL Ratio 4.333 <5 Hemoglobin A1c 07/27/2020 [facility] - not interfaced (315)- - Hemoglobin A1c 8.5 Laboratory test finding 07/21/2020 [facility] - not interf aced (315)- - I-Stat Troponin I 0.11 Laboratory test finding 07/21/2020 [facility] - not interf aced (315)- - I-Stat Troponin I 0.13 CBC without Differential 07/21/2020 [facility] - not inter faced (315)- - White Blood Count 12.9 High 5.0-10.0 Red Blood Count 5.50 High 4.00-5.40 Platelets 214 172-450 Hemoglobin 17.9 Hematocrit 52.3 1 Units are mL/min/1.73 m2 Chronic Kidney Disease Staging per NKF: Stage I & II GFR >=60 Normal to Mildly Decreased Stage III GFR 30-59 Moderately Decreased Stage IV GFR 15-29 Severely Decreased Stage V GFR <15 Very Little GFR Left ESRD GFR <15 on AIRSET CASTER 2 Units are mL/min/1.73 m2 Chronic Kidney Disease Staging per NKF: Stage I & II GFR >=60 Normal to Mildly Decreased Stage III GFR 30-59 Moderately Decreased Stage IV GFR 15-29 Severely Decreased Stage V GFR <15 Very Little GFR Left ESRD GFR <15 on AIRSET CASTER 3 THERAPUTIC HUMAN INR VALUES INDICATIONS NORMAL RANGES PROPHYLAXIS/TREATMENT OF: VENOUS THROMBOSIS 2.0-3.0 PULMONARY EMBOLISM 2.0-3.0 PREVENTION OF SYSTEMIC EMBOLISM FROM: TISSUE HEART VALVES 2.0-3.0 ACUTE MYOCARDIAL INFARCTION 2.0-3.0 VALVULAR HEART DISEASE 2.0-3.0 ATRIAL FIBRILLATION 2.0-3.0 MECHANICAL VALVES(HIGH RISK) 2.5-3.5 RECURRENT MYOCARDIAL INFARCTION 2.5-3.5 Procedures Date Code Description Status 01/06/2021 34003 Icd Interrogation Any Leads Comp leted 12/23/2020 46540 Office/Outpatient Established Mo d MDM 30-39 Min Completed 12/23/2020 41692 ECG 12-Lead Completed 08/03/2020 21229 Echocardiogram 2-D Doppler Color Completed 07/29/2020 36216 Office/Outpatient Established Mo d MDM 30-39 Min Completed 07/29/2020 09737 ECG 12-Lead Completed Medical Devices Description No Information Available Encounters Type Date Location Provider Dx Diagnosis Office Visit 12/23/2020 11:15a Main Office AZAEL De La Fuente I25 .10 Athscl heart disease of [place] coronary artery w/o ang pctrs I47.2 Ventricular tachycardia Z95.810 Presence of automatic (impla ntable) cardiac defibrillator F17.210 Nicotine dependence, cigaret marilee, uncomplicated Office Visit 07/29/2020 3:30p Main Office AZAEL De La Fuente I25 .10 Athscl heart disease of [place] coronary artery w/o ang pctrs I25.5 Ischemic cardiomyopathy I11.0 Hypertensive heart disease w ith heart failure F17.210 Nicotine dependence, cigaret marilee, uncomplicated R94.31 Abnormal electrocardiogram [ ECG] [EKG] Z71.3 Dietary counseling and surve illance Assessments Date Code Description Provider 01/06/2021 Z95.810 Presence of automatic (implantab le) cardiac defibrillator AZAEL De La Fuente 12/23/2020 I25.10 Atherosclerotic heart disease of [place] coronary artery with AZAEL De La Fuente 12/23/2020 I47.2 Ventricular tachycardia AZAEL Lin 12/23/2020 Z95.810 Presence of automatic (implantab le) cardiac defibrillator AZAEL De La Fuente 12/23/2020 F17.210 Nicotine dependence, cigarettes, uncomplicated ZAAEL De La Fuente 08/03/2020 I25.5 Ischemic cardiomyopathy ECHO 07/29/2020 I25.10 Atherosclerotic heart disease of [place] coronary artery with AZAEL De La Fuente 07/29/2020 I25.5 Ischemic cardiomyopathy AZAEL Lin 07/29/2020 I11.0 Hypertensive heart disease with heart failure AZAEL De La Fuente 07/29/2020 F17.210 Nicotine dependence, cigarettes, uncomplicated AZAEL De La Fuente 07/29/2020 R94.31 Abnormal electrocardiogram [ECG] [EKG] AZAEL De La Fuente 07/29/2020 Z71.3 Dietary counseling and surveilla nce AZAEL De La Fuente Plan of Treatment Future Appointment(s):* 01/09/2022 9:30 am - AZAEL De La Fuente at Main Office * 02/01/2021 9:45 am - AZAEL De La Fuente at Main Office 12/23/2020 - AZAEL De La Fuente* I25.10 Atherosclerotic heart disease of [place] coronary artery with* Recommendations:* Continue atorvastatin, bisoprolol, aspirin, and clopidogrel at the current dosages Patient has a new prescription of nitroglycerin to use if symptoms arise Advised patient to contact our office with any chest pain, shortness of breath, new or concerning symptoms * I47.2 Ventricular tachycardia* Recommendations:* Please obtain repeat lab work Will see patient for ICD check in 2 weeks * Z95.810 Presence of automatic (implantable) cardiac defibrillator* Recommendations:* Return for 2 week ICD check and incision check Please obtain home monitor, he is agreeable to let us know if they do not get him on the next few weeks * F17.210 Nicotine dependence, cigarettes, uncomplicated* New Medication:* Nicotine Transdermal System Step 1 21 mg/24HR - 1 patch each day for 6 weeks * Recommendations:* Nicotine patch as prescribed Encouraged continued smoking cessation * All * Follow up:* Needs 2 week ICD check and incision check Keep scheduled follow up Functional Status Functional Condition Comment Date Status Independent with all ADL's Activ e Mental Status Description No Information Available Referrals Refer to Reason for Referral Status Appt Date Yaron Malloy MD [facility] AUTH EMR-[facility]IRES 10/28/20. [place] Created [address] [facility] [id number] [phone] Abiodun Monte MD [facility] AUTH [facility]MR[facility] 09/09/20. [place] Created [address] [facility] [id number] [phone]
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
--- OUTSIDE RECORDS SUMMARY | 2021-02-21 00:29 | CCD | Continuity of Care Document ---
Author Author Dilan VASQUEZ Organization Unknown Address [address] [place] [address], [place] [address] Phone [phone] Care Team Providers Care Pin Sticker Name Role Phone Link Becker MD AUTM [phone] Lee Ann Boswell AUTM [phone] Leo Hylton MD AUTM [phone] Problems Active Problems Provider Date Precordial pain Abiodun Monte MD Onset: 06/07/2016 Cardiomegaly Abiodun Monte MD Onset: 06/07/2016 Electrocardiogram abnormal Abiodun Monte MD Onset: 2016 Old myocardial infarction Abiodun Monte MD Onset: 017 Chronic obstructive lung disease Abiodun Monte MD Onset: 06/07/2016 Tobacco user Abiodun Monte MD Onset: 06/07/2016 Atherosclerotic heart disease of kashia coronary arter y without angina pectoris Abiodun [...] Exercise Limitations Joint Pain bilateral k nees Allergies and adverse reactions Description No Known Drug Allergies Medications Active [...] Tablets 1 by mouth once a day Lee Ann Boswell PA 021 Nitrostat 0.4mg Tablets Sub 1 sl every 5min x3 as needed for chest pain 25tabs Yaron dang MD 06/08/2016 Ventolin HFA 108(90Base) mcg/Act A erosol 2 puffs as needed Unknown 06/06/2016 Atorvastatin Calcium 80mg Tablets 1 by mouth every day Unknown 06/06/[address] 1 by mouth every day Unknown 06/06/2016 Immunizations Description No Information Available Vital Signs [...] Result H/L Range Note Laboratory test finding 01/28/2021 [facility] [phone] NT-Pro BNP 762 pg/mL High <125 CMP 01/28/2021 [facility] nter [phone] Glucose, Fasting 141 mg/dL High 70-100 Blood Urea Nitrogen 16 mg/dL Normal 7-18 Creatinine For GFR 1.30 mg/dL Normal 0.70-1.30 Glomerular Filtration Rate > 60.0 Normal >56 1 Sodium Level 137 mEq/L Normal 136-145 Potassium Serum 4.4 mEq/L Normal 3.5-5.1 Chloride Level 100 mEq/L Normal 98-107 Carbon Dioxide Level 32 mEq/L Normal 21-32 Anion Gap 5 mEq/L Low 8-16 Calcium Level 9.9 mg/dL Normal 8.5-10.1 Ast/Sgot 21 U/L Normal 7-37 Alt/SGPT 32 U/L Normal 12-78 Alkaline Phosphatase 64 U/L Normal 45-117 Bilirubin,Total 0.5 mg/dL Normal 0.2-1.0 Total Protein 7.6 GM/DL Normal 6.4-8.2 Albumin 3.9 GM/DL Normal 3.2-5.2 Albumin/Globulin Ratio 1.1 Normal Laboratory test finding 01/28/2021 [facility] [phone] Magnesium Level 2.1 mg/dL Normal 1.8-2.4 Laboratory test finding 12/27/2020 [facility] [phone] NT-Pro BNP 1141 pg/mL High <125 CMP 12/27/2020 [facility] nter [phone] Glucose, Fasting 168 mg/dL High 70-100 Blood Urea Nitrogen 25 mg/dL High 7-18 Creatinine For GFR 1.26 mg/dL Normal 0.70-1.30 Glomerular Filtration Rate > 60.0 Normal >56 2 Sodium Level 137 mEq/L Normal 136-145 Potassium [...] Ratio 1.0 Normal Laboratory test finding 12/27/2020 [facility] [phone] Magnesium Level 1.9 mg/dL Normal 1.8-2.4 Liver Profile 12/13/2020 [facility] nter [phone] Ast/Sgot 5044 U/L High 7-37 Alt/SGPT 5023 U/L High 12-78 Alkaline Phosphatase 49 U/L Normal 45-117 Bilirubin,Total 0.8 mg/dL Normal 0.2-1.0 Bilirubin,Direct 0.4 mg/dL High 0.0-0.2 Total Protein 6.7 GM/DL Normal 6.4-8.2 Albumin 3.4 GM/DL Normal 3.2-5.2 Albumin/Globulin Ratio 1.0 Normal Basic Metabolic Profile 12/13/2020 [facility] [phone] Glucose, Fasting 150 mg/dL High 70-100 Blood Urea Nitrogen 58 mg/dL High 7-18 Creatinine For GFR 4.94 mg/dL High 0.70-1.30 Glomerular Filtration Rate 12.9 Low >56 3 Sodium Level 133 mEq/L Low 136-145 Potassium Serum 6.5 mEq/L Critical high 3.5-5.1 Chloride Level 97 mEq/L Low 98-107 Carbon Dioxide Level 21 mEq/L Normal 21-32 Anion Gap 15 mEq/L Normal 8-16 Calcium Level 8.8 mg/dL Normal 8.5-10.1 Laboratory test finding 12/13/2020 [facility] [phone] Magnesium Level 1.9 mg/dL Normal 1.8-2.4 NT-Pro BNP 10327 pg/mL High <125 Lipase 204 U/L Normal 73-393 Thyroid Stimulating Hormone 2.450 uIU/ML Normal 0.358-3.740 Prothrombin Time/Inr 12/13/2020 [facility] Arnaldo bernardo [phone] Prothrombin Time 22.4 seconds High 12.7-14.5 Inr 1.92 Normal 4 1 Units are mL/min/1.73 m2 Chronic Kidney Disease Staging per NKF: Stage I & II GFR >=60 Normal to Mildly Decreased Stage III GFR 30-59 Moderately Decreased Stage IV GFR 15-29 Severely Decreased Stage V GFR <15 Very Little GFR Left ESRD GFR <15 on [employer]HEAD MAINTENANCE SPECIALIST 2 Units are mL/min/1.73 m2 Chronic Kidney Disease Staging per NKF: Stage I & II GFR >=60 Normal to Mildly Decreased Stage III GFR 30-59 Moderately Decreased Stage IV GFR 15-29 Severely Decreased Stage V GFR <15 Very Little GFR Left ESRD GFR <15 on [employer]HEAD MAINTENANCE SPECIALIST 3 Units are mL/min/1.73 m2 Chronic Kidney Disease Staging per NKF: Stage I & II GFR >=60 Normal to Mildly Decreased Stage III GFR 30-59 Moderately Decreased Stage IV GFR 15-29 Severely Decreased Stage V GFR <15 Very Little GFR Left ESRD GFR <15 on [employer]HEAD MAINTENANCE SPECIALIST 4 THERAPUTIC HUMAN INR VALUES INDICATIONS NORMAL RANGES PROPHYLAXIS/TREATMENT OF: VENOUS THROMBOSIS 2.0-3.0 PULMONARY EMBOLISM 2.0-3.0 PREVENTION OF SYSTEMIC EMBOLISM FROM: TISSUE HEART VALVES 2.0-3.0 ACUTE MYOCARDIAL INFARCTION 2.0-3.0 VALVULAR HEART DISEASE 2.0-3.0 ATRIAL FIBRILLATION 2.0-3.0 MECHANICAL VALVES(HIGH RISK) 2.5-3.5 RECURRENT MYOCARDIAL INFARCTION 2.5-3.5 Procedures Date Code Description Status 01/06/2021 58014 Icd Interrogation Any Leads Comp leted 12/23/2020 06430 Office/Outpatient Established Mo d MDM 30-39 Min Completed 12/23/2020 54146 ECG 12-Lead Completed 08/03/2020 22721 Echocardiogram 2-D Doppler Color Completed Medical Devices Description No Information Available Encounters Type Date Location Provider Dx Diagnosis Office Visit 12/23/2020 11:15a Main Office AZAEL De La Fuente I25 .10 Athscl heart disease of kashia coronary artery w/o ang pctrs I47.2 Ventricular tachycardia Z95.810 Presence of automatic (impla ntable) cardiac defibrillator F17.210 Nicotine dependence, cigaret marilee, uncomplicated Assessments Date Code Description Provider 01/06/2021 Z95.810 Presence of automatic (implantab le) cardiac defibrillator AZAEL De La Fuente 12/23/2020 I25.10 Atherosclerotic heart disease of kashia coronary artery with AZAEL De La Fuente 12/23/2020 I47.2 Ventricular tachycardia AZAEL Lin 12/23/2020 Z95.810 Presence of automatic (implantab le) cardiac defibrillator AZAEL De La Fuente 12/23/2020 F17.210 Nicotine dependence, cigarettes, uncomplicated AZAEL De La Fuente 08/03/2020 I25.5 Ischemic cardiomyopathy ECHO Plan of Treatment Future Appointment(s):* 04/07/2021 7:00 am - Pacer/Icd Clinic at Main Office * 01/09/2022 9:30 am - AZAEL De La Fuente at Main Office * 02/01/2021 9:45 am - AZAEL De La Fuente at Main Office 12/23/2020 - AZAEL De La Fuente* I25.10 Atherosclerotic heart disease of kashia coronary artery with* Recommendations:* Continue atorvastatin, bisoprolol, [...] Referral Status Appt Date Yaron Malloy MD [facility] AUTH EMR-EXPIRES 10/28/20. [place] Created [address] [facility] [address] [phone]
--- OUTSIDE RECORDS SUMMARY | 2021-02-21 00:29 | CCD | Continuity of Care Document ---
Author Author Dilan VASQUEZ Organization Unknown Address [address] [place] [address], [place] [address] Phone [phone] Care Team Providers Care Rn Home Care Name Role Phone Link Becker MD AUTM [phone] Lee Ann Boswell AUTM [phone] Leo Hylton MD AUTM [phone] Problems Active Problems Provider Date Precordial pain Abiodun Monte MD Onset: 06/07/2016 Cardiomegaly Abiodun Monte MD Onset: 06/07/2016 Electrocardiogram abnormal Abiodun Monte MD Onset: 2016 Old myocardial infarction Abiodun Monte MD Onset: 017 Chronic obstructive lung disease Abiodun Monte MD Onset: 06/07/2016 Tobacco user Abiodun Monte MD Onset: 06/07/2016 Atherosclerotic heart disease of [place] coronary arter y without angina pectoris Abiodun Monte MD Onset: 06/07/2016 Hypertensive heart disease without congestive heart failure Abiodun Monte MD Onset: 06/07/2016 Body mass index 30+ - obesity Abiodun Monte MD Onset: Edema Abiodun Monte MD Onset: 05/01/2017 Dietary management surveillance AZAEL Ayon Onset: 08/09/2017 Chronic ischemic heart disease AZEAL Ayon Onset: 0 08/09/2017 Hypertensive heart disease [...] H/L Range Note Laboratory test finding 12/27/2020 [facility] [phone] NT-Pro BNP 1141 pg/mL High <125 CMP 12/27/2020 [facility] nt [phone] Glucose, Fasting 168 mg/dL High 70-100 Blood [...] Ratio 1.0 Normal Laboratory test finding 12/27/2020 [facility] [phone] Magnesium Level 1.9 mg/dL Normal 1.8-2.4 Liver Profile 12/13/2020 [facility] nter [phone] Ast/Sgot 5044 U/L High 7-37 Alt/SGPT 5023 U/L High 12-78 Alkaline Phosphatase 49 U/L Normal 45-117 Bilirubin,Total 0.8 mg/dL Normal 0.2-1.0 Bilirubin,Direct 0.4 mg/dL High 0.0-0.2 Total Protein 6.7 GM/DL Normal 6.4-8.2 Albumin 3.4 GM/DL Normal 3.2-5.2 Albumin/Globulin Ratio 1.0 Normal Basic Metabolic Profile 12/13/2020 [facility] [phone] Glucose, Fasting 150 mg/dL High 70-100 Blood [...] mg/dL Normal 8.5-10.1 Laboratory test finding 12/13/2020 [facility] [phone] Magnesium Level 1.9 mg/dL Normal 1.8-2.4 NT-Pro BNP 95700 pg/mL High <125 Lipase 204 U/L Normal 73-393 Thyroid Stimulating Hormone 2.450 uIU/ML Normal 0.358-3.740 Prothrombin Time/Inr 12/13/2020 [facility] [phone] Prothrombin Time 22.4 seconds High 12.7-14.5 Inr 1.92 Normal 3 Lipid Profile/Cardiac Risk Pro 07/27/2020 [facility] - not interfaced (315)- - Triglycerides 297 High <150 Cholesterol 117 <200 HDL 27 Low >40.0 LDL Cholesterol 31 Chol/HDL Ratio 4.333 <5 Hemoglobin A1c 07/27/2020 [facility] - not interfaced (315)- - Hemoglobin A1c 8.5 Laboratory test finding 07/21/2020 [facility] - not interf aced (315)- - I-Stat Troponin I 0.11 Laboratory test finding 07/21/2020 [facility] - not interf aced (315)- - I-Stat Troponin I 0.13 CBC without Differential 07/21/2020 [facility] - not inter faced (315)- - [...] Little GFR Left ESRD GFR <15 on MANAGER TECHNICAL SUPPORT 2 Units are mL/min/1.73 m2 Chronic Kidney Disease Staging per NKF: Stage I & II GFR >=60 Normal to Mildly Decreased Stage III GFR 30-59 Moderately Decreased Stage IV GFR 15-29 Severely Decreased Stage V GFR <15 Very Little GFR Left ESRD GFR <15 on MANAGER TECHNICAL SUPPORT 3 THERAPUTIC HUMAN INR VALUES INDICATIONS NORMAL RANGES PROPHYLAXIS/TREATMENT OF: VENOUS THROMBOSIS 2.0-3.0 PULMONARY EMBOLISM 2.0-3.0 PREVENTION OF SYSTEMIC EMBOLISM FROM: TISSUE HEART VALVES 2.0-3.0 ACUTE MYOCARDIAL INFARCTION 2.0-3.0 VALVULAR HEART DISEASE 2.0-3.0 ATRIAL FIBRILLATION 2.0-3.0 MECHANICAL VALVES(HIGH RISK) 2.5-3.5 RECURRENT MYOCARDIAL INFARCTION 2.5-3.5 Procedures Date Code Description Status 01/06/2021 81659 Icd Interrogation Any Leads Comp leted 12/23/2020 16539 Office/Outpatient Established Mo d MDM 30-39 Min Completed 12/23/2020 41040 ECG 12-Lead Completed 08/03/2020 61792 Echocardiogram 2-D Doppler Color Completed 07/29/2020 04982 Office/Outpatient Established Mo d MDM 30-39 Min Completed 07/29/2020 05164 ECG 12-Lead Completed Medical Devices Description No Information Available Encounters Type Date Location Provider Dx Diagnosis Office Visit 12/23/2020 11:15a Main Office AZAEL De La Fuente I25 .10 Athscl heart disease of [place] coronary artery w/o ang pctrs I47.2 Ventricular tachycardia Z95.810 Presence of automatic (impla ntable) cardiac defibrillator F17.210 Nicotine dependence, cigaret marilee, uncomplicated Office Visit 07/29/2020 3:30p Main Office AZAEL De La Fuente I25 .10 Athscl heart disease of [place] coronary artery w/o ang pctrs I25.5 Ischemic cardiomyopathy I11.0 Hypertensive heart disease w ith heart failure F17.210 Nicotine dependence, cigaret marilee, uncomplicated R94.31 Abnormal electrocardiogram [ ECG] [EKG] Z71.3 Dietary counseling and surve illance Assessments Date Code Description Provider 01/06/2021 Z95.810 Presence of automatic (implantab le) cardiac defibrillator AZAEL De La Fuente 12/23/2020 I25.10 Atherosclerotic heart disease of [place] coronary artery with AZAEL De La Fuente 12/23/2020 I47.2 Ventricular tachycardia AZAEL Lin 12/23/2020 Z95.810 Presence of automatic (implantab le) cardiac defibrillator AZAEL De La Fuente 12/23/2020 F17.210 Nicotine dependence, cigarettes, uncomplicated AZAEL De La Fuente 08/03/2020 I25.5 Ischemic cardiomyopathy ECHO 07/29/2020 I25.10 Atherosclerotic heart disease of [place] coronary artery with AZAEL De La Fuente 07/29/2020 I25.5 Ischemic cardiomyopathy AZAEL Lin 07/29/2020 I11.0 Hypertensive heart disease with heart failure AZAEL De La Fuente 07/29/2020 F17.210 Nicotine dependence, cigarettes, uncomplicated AZAEL De La Fuente 07/29/2020 R94.31 Abnormal electrocardiogram [ECG] [EKG] AZAEL De La Fuente 07/29/2020 Z71.3 Dietary counseling and surveilla nce AZAEL De La Fuente Plan of Treatment Future Appointment(s):* 04/07/2021 7:00 am - Pacer/Icd Clinic at Main Office * 01/09/2022 9:30 am - AZAEL De La Fuente at Main Office * 02/01/2021 9:45 am - AZAEL De La Fuente at Main Office 12/23/2020 - AZAEL De La Fuente* I25.10 Atherosclerotic heart disease of [place] coronary artery with* Recommendations:* Continue atorvastatin, bisoprolol, [...] Referral Status Appt Date Yaron Malloy MD [facility] AUTH EMR-EXPIRES 10/28/20. [place] Created [address] [facility] [address] [phone] Abiodun Monte MD [place] AUTH EMR-EXPIRES 09/09/20. [place] Created [address] [facility] [address] [phone]
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
--- OUTSIDE RECORDS SUMMARY | 2021-02-21 00:30 | CCD | Continuity of Care Document ---
Author Author Dilan VASQUEZ Organization Unknown Address [address] [place] [address], [place] [address] Phone [phone] Care Team Providers Care Tree Planter Name Role Phone Link Becker MD AUTM [phone] Lee Ann Boswell AUTM [phone] Leo Hylton MD AUTM [phone] Problems Active Problems Provider Date Precordial pain Abiodun Monte MD Onset: 06/07/2016 Cardiomegaly Abiodun Monte MD Onset: 06/07/2016 Electrocardiogram abnormal Abiodun Monte MD Onset: 2016 Old myocardial infarction Abiodun Monte MD Onset: 017 Chronic obstructive lung disease Abiodun Monte MD Onset: 06/07/2016 Tobacco user Abiodun Monte MD Onset: 06/07/2016 Atherosclerotic heart disease of [place] coronary arter y without angina pectoris Abiodun [...] 2 ppd; quit 04/24/20 Smoking Status Reviewed: 07/29/20 Patient is a former smoker si nce [...] by mouth once a day Lee Ann Boswlel PA 021 Nitrostat 0.4mg Tablets Sub 1 [...] 5'8" BMI (Body Mass Index) 30.1 kg/m2 07/29/2020 3:25pm Weight 216.00 lb Home Weight 219lb Height 68 inches 5'8" BMI (Body Mass Index) 32.8 kg/m2 BP Systolic Sitting 126 mmHg Ra, large cuff BP Diastolic Sitting 82 mmHg Ra, large cuff Results Test Acquired Date Facility Test Result H/L Range Note Liver Profile 12/13/2020 [facility] nter [phone] Ast/Sgot 5044 U/L High 7-37 Alt/SGPT 5023 U/L High 12-78 Alkaline Phosphatase 49 U/L Normal 45-117 Bilirubin,Total 0.8 mg/dL Normal 0.2-1.0 Bilirubin,Direct 0.4 mg/dL High 0.0-0.2 Total Protein 6.7 GM/DL Normal 6.4-8.2 Albumin 3.4 GM/DL Normal 3.2-5.2 Albumin/Globulin Ratio 1.0 Normal Basic Metabolic Profile 12/13/2020 [facility] [phone] Glucose, Fasting 150 mg/dL High 70-100 Blood Urea Nitrogen 58 mg/dL High 7-18 Creatinine For GFR 4.94 mg/dL High 0.70-1.30 Glomerular Filtration Rate 12.9 Low >56 1 Sodium Level 133 mEq/L Low 136-145 Potassium Serum 6.5 mEq/L Critical high 3.5-5.1 Chloride Level 97 mEq/L Low 98-107 Carbon Dioxide Level 21 mEq/L Normal 21-32 Anion Gap 15 mEq/L Normal 8-16 Calcium Level 8.8 mg/dL Normal 8.5-10.1 Laboratory test finding 12/13/2020 [facility] [phone] Magnesium Level 1.9 mg/dL Normal 1.8-2.4 NT-Pro BNP 96072 pg/mL High <125 Lipase 204 U/L Normal 73-393 Thyroid Stimulating Hormone 2.450 uIU/ML Normal 0.358-3.740 Prothrombin Time/Inr 12/13/2020 [facility] enter [phone] Prothrombin Time 22.4 seconds High 12.7-14.5 Inr 1.92 Normal 2 Lipid Profile/Cardiac Risk Pro 07/27/2020 [facility] - not interfaced (315)- - Triglycerides 297 High <150 Cholesterol 117 <200 HDL 27 Low >40.0 LDL Cholesterol 31 Chol/HDL Ratio 4.333 <5 Hemoglobin A1c 07/27/2020 [facility] - not interfaced (315)- - Hemoglobin A1c 8.5 Laboratory test finding 07/21/2020 [facility] - not interf aced (315)- - I-Stat Troponin I 0.11 Laboratory test finding 07/21/2020 [facility] - not interf aced (315)- - I-Stat Troponin I 0.13 CBC without Differential 07/21/2020 [facility] - not inter faced (315)- - [...] Little GFR Left ESRD GFR <15 on LAYOUT OPERATOR 2 THERAPUTIC HUMAN INR VALUES INDICATIONS NORMAL RANGES PROPHYLAXIS/TREATMENT OF: VENOUS THROMBOSIS 2.0-3.0 PULMONARY EMBOLISM 2.0-3.0 PREVENTION OF SYSTEMIC EMBOLISM FROM: TISSUE HEART VALVES 2.0-3.0 ACUTE MYOCARDIAL INFARCTION 2.0-3.0 VALVULAR HEART DISEASE 2.0-3.0 ATRIAL FIBRILLATION 2.0-3.0 MECHANICAL VALVES(HIGH RISK) 2.5-3.5 RECURRENT MYOCARDIAL INFARCTION 2.5-3.5 Procedures Date Code Description Status 12/23/2020 82359 Office/Outpatient Established Mo d MDM 30-39 Min Completed 12/23/2020 08567 ECG 12-Lead Completed 08/03/2020 15398 Echocardiogram 2-D Doppler Color Completed 07/29/2020 21177 Office/Outpatient Established Mo d MDM 30-39 Min Completed 07/29/2020 33653 ECG 12-Lead Completed Medical Devices Description No Information Available Encounters Type Date Location Provider Dx Diagnosis Office Visit 12/23/2020 11:15a Main Office AZAEL De La Fuente I25 .10 Athscl heart disease of [place] coronary artery w/o ang pctrs I47.2 Ventricular tachycardia Z95.810 Presence of automatic (impla ntable) cardiac defibrillator F17.210 Nicotine dependence, cigaret marilee, uncomplicated Office Visit 07/29/2020 3:30p Main Office AZAEL De La Fuente I25 .10 Athscl heart disease of [place] coronary artery w/o ang pctrs I25.5 Ischemic cardiomyopathy I11.0 Hypertensive heart disease w ith heart failure F17.210 Nicotine dependence, cigaret marilee, uncomplicated R94.31 Abnormal electrocardiogram [ ECG] [EKG] Z71.3 Dietary counseling and surve illance Assessments Date Code Description Provider 12/23/2020 I25.10 Atherosclerotic heart disease of [place] coronary artery with AZAEL De La Fuente 12/23/2020 I47.2 Ventricular tachycardia AZAEL Lin 12/23/2020 Z95.810 Presence of automatic (implantab le) cardiac defibrillator AZAEL De La Fuente 12/23/2020 F17.210 Nicotine dependence, cigarettes, uncomplicated AZAEL De La Fuente 08/03/2020 I25.5 Ischemic cardiomyopathy ECHO 07/29/2020 I25.10 Atherosclerotic heart disease of [place] coronary artery with AZAEL De La Fuente 07/29/2020 I25.5 Ischemic cardiomyopathy AZAEL Lin 07/29/2020 I11.0 Hypertensive heart disease with heart failure AZAEL De La Fuente 07/29/2020 F17.210 Nicotine dependence, cigarettes, uncomplicated AZAEL De La Fuente 07/29/2020 R94.31 Abnormal electrocardiogram [ECG] [EKG] AZAEL De La Fuente 07/29/2020 Z71.3 Dietary counseling and surveilla nce AZAEL De La Fuente Plan of Treatment Future Appointment(s):* 01/06/2021 12:45 pm - AZAEL De La Fuente at Main Office * 02/01/2021 9:45 am - AZAEL De La Fuente at Main Office 12/23/2020 - AZAEL De La Fuente* I25.10 Atherosclerotic heart disease of [place] coronary artery with* New Labs:* NT Probnp QN Ser/Plas, Ordered: 12/23/20 * Magnesium Level, Ordered: 12/23/20 * CMP, Ordered: 12/23/20 * I47.2 Ventricular tachycardia * Z95.810 Presence of automatic (implantable) cardiac [...] patch each day for 6 weeks * All * Follow up:* Needs 2 week ICD check and incision check Functional Status Functional Condition Comment Date Status Independent with all ADL's Activ e Mental Status Description No Information Available Referrals Refer to Reason for Referral Status Appt Date Yaron Malloy MD [facility] AUTH EMR-EXPIRES 10/28/20. [place] Created [address] [facility] [id number] [phone] Abiodun Monte MD [place] AUTH [facility] 09/09/20. [place] Created [address] [facility] [id number] [phone]
--- OUTSIDE RECORDS SUMMARY | 2021-02-21 00:30 | CCD | Continuity of Care Document ---
Author Author Dilan VASQUEZ Organization Unknown Address [address] [place] [address], [place] [address] Phone [phone] Care Team Providers Care Machine Operator Cane Cutter Name Role Phone Link Becker MD AUTM [phone] Lee Ann Boswell AUTM [phone] Leo Hylton MD AUTM [phone] Problems Active Problems Provider Date Precordial pain Abiodun Monte MD Onset: 06/07/2016 Cardiomegaly Aboidun Monte MD Onset: 06/07/2016 Electrocardiogram abnormal Abiodun Monte MD Onset: 2016 Old myocardial infarction Abiodun Monte MD Onset: 017 Chronic obstructive lung disease Abiodun Monte MD Onset: 06/07/2016 Tobacco user Abiodun Monte MD Onset: 06/07/2016 Atherosclerotic heart disease of hoh coronary arter y without angina pectoris Abiodun [...] Result H/L Range Note Liver Profile 12/13/2020 [facility] nter [phone] Ast/Sgot 5044 U/L High 7-37 Alt/SGPT 5023 U/L High 12-78 Alkaline Phosphatase 49 U/L Normal 45-117 Bilirubin,Total 0.8 mg/dL Normal 0.2-1.0 Bilirubin,Direct 0.4 mg/dL High 0.0-0.2 Total Protein 6.7 GM/DL Normal 6.4-8.2 Albumin 3.4 GM/DL Normal 3.2-5.2 Albumin/Globulin Ratio 1.0 Normal Basic Metabolic Profile 12/13/2020 [facility] [phone] Glucose, Fasting 150 mg/dL High 70-100 Blood [...] mg/dL Normal 8.5-10.1 Laboratory test finding 12/13/2020 [facility] [phone] Magnesium Level 1.9 mg/dL Normal 1.8-2.4 NT-Pro BNP 51067 pg/mL High <125 Lipase 204 U/L Normal 73-393 Thyroid Stimulating Hormone 2.450 uIU/ML Normal 0.358-3.740 Prothrombin Time/Inr 12/13/2020 [facility] enter [phone] Prothrombin Time 22.4 seconds High 12.7-14.5 Inr 1.92 Normal 2 Lipid Profile/Cardiac Risk Pro 07/27/2020 [facility] - not interfaced (315)- - Triglycerides 297 High <150 Cholesterol 117 <200 HDL 27 Low >40.0 LDL Cholesterol 31 Chol/HDL Ratio 4.333 <5 Hemoglobin A1c 07/27/2020 [facility] - not interfaced (315)- - Hemoglobin A1c 8.5 Laboratory test finding 07/21/2020 [facility] - not interf aced (315)- - I-Stat Troponin I 0.11 Laboratory test finding 07/21/2020 [facility] - not interf aced (315)- - I-Stat Troponin I 0.13 CBC without Differential 07/21/2020 [facility] - not inter faced (315)- - [...] Little GFR Left ESRD GFR <15 on FACTORY WORKER 2 THERAPUTIC HUMAN INR VALUES INDICATIONS NORMAL RANGES PROPHYLAXIS/TREATMENT OF: VENOUS THROMBOSIS 2.0-3.0 PULMONARY EMBOLISM 2.0-3.0 PREVENTION OF SYSTEMIC EMBOLISM FROM: TISSUE HEART VALVES 2.0-3.0 ACUTE MYOCARDIAL INFARCTION 2.0-3.0 VALVULAR HEART DISEASE 2.0-3.0 ATRIAL FIBRILLATION 2.0-3.0 MECHANICAL VALVES(HIGH RISK) 2.5-3.5 RECURRENT MYOCARDIAL INFARCTION 2.5-3.5 Procedures Date Code Description Status 12/23/2020 50876 Office/Outpatient Established Mo d MDM 30-39 Min Completed 12/23/2020 67492 ECG 12-Lead Completed 08/03/2020 54350 Echocardiogram 2-D Doppler Color Completed 07/29/2020 58554 Office/Outpatient Established Mo d MDM 30-39 Min Completed 07/29/2020 73938 ECG 12-Lead Completed Medical Devices Description No Information Available Encounters Type Date Location Provider Dx Diagnosis Office Visit 12/23/2020 11:15a Main Office AZAEL De La Fuente I25 .10 Athscl heart disease of [place] coronary artery w/o ang pctrs I47.2 Ventricular tachycardia Z95.810 Presence of automatic (impla ntable) cardiac defibrillator F17.210 Nicotine dependence, cigaret marilee, uncomplicated Office Visit 07/29/2020 3:30p Main Office AZAEL De La Fuente I25 .10 Athscl heart disease of [place] coronary artery w/o ang pctrs I25.5 Ischemic cardiomyopathy I11.0 Hypertensive heart disease w ith heart failure F17.210 Nicotine dependence, cigaret marilee, uncomplicated R94.31 Abnormal electrocardiogram [ ECG] [EKG] Z71.3 Dietary counseling and surve illance Assessments Date Code Description Provider 12/23/2020 I25.10 Atherosclerotic heart disease of [place] coronary artery with AZAEL De La Fuente 12/23/2020 I47.2 Ventricular tachycardia AZAEL Lin 12/23/2020 Z95.810 Presence of automatic (implantab le) cardiac defibrillator AZAEL De La Fuente 12/23/2020 F17.210 Nicotine dependence, cigarettes, uncomplicated AZAEL De La Fuente 08/03/2020 I25.5 Ischemic cardiomyopathy ECHO 07/29/2020 I25.10 Atherosclerotic heart disease of [place] coronary artery with AZAEL De La Fuente [...] La Fuente* I25.10 Atherosclerotic heart disease of [place] coronary artery with* New Labs:* NT Probnp QN Ser/Plas, Ordered: 12/23/20 * Magnesium Level, Ordered: 12/23/20 * CMP, Ordered: 12/23/20 * Recommendations:* Continue atorvastatin, bisoprolol, aspirin, and clopidogrel [...] Appt Date Yaron Malloy MD [facility] AUTH EMR-EXPIRES 10/28/20. [place] Created [id number] [facility] [id number] [phone] Abiodun Monte MD [facility] AUTH [facility]MR[facility]EXPIRES 09/09/20. [place] Created 36 [facility] [id number] [phone]
--- OUTSIDE RECORDS SUMMARY | 2021-02-21 00:30 | CCD | Continuity of Care Document ---
Author Author Dilan VASQUEZ Organization Unknown Address [address] [place] [address], [place] [address] Phone [phone] Care Team Providers Care Banquet Attendant Name Role Phone Link Becker MD AUTM [phone] Lee Ann Boswell AUTM [phone] Leo Hylton MD AUTM [phone] Problems Active Problems Provider Date Precordial pain Abiodun Monte MD Onset: 06/07/2016 Cardiomegaly Abiodun Monte MD Onset: 06/07/2016 Electrocardiogram abnormal Abiodun Monte MD Onset: 2016 Old myocardial infarction Abiodun Monte MD Onset: 017 Chronic obstructive lung disease Abiodun Monte MD Onset: 06/07/2016 Tobacco user Abiodun Monte MD Onset: 06/07/2016 Atherosclerotic heart disease of [place] coronary arter y without angina pectoris Abiodun [...] H/L Range Note Laboratory test finding 12/27/2020 [facility] [phone] NT-Pro BNP 1141 pg/mL High <125 CMP 12[facility] [phone] Glucose, Fasting 168 mg/dL High 70-100 Blood [...] Ratio 1.0 Normal Laboratory test finding 12/27/2020 [facility] [phone] Magnesium Level 1.9 mg/dL Normal 1.8-2.4 Liver Profile 12/13/2020 [facility] nter [phone] Ast/Sgot 5044 U/L High 7-37 Alt/SGPT 5023 U/L High 12-78 Alkaline Phosphatase 49 U/L Normal 45-117 Bilirubin,Total 0.8 mg/dL Normal 0.2-1.0 Bilirubin,Direct 0.4 mg/dL High 0.0-0.2 Total Protein 6.7 GM/DL Normal 6.4-8.2 Albumin 3.4 GM/DL Normal 3.2-5.2 Albumin/Globulin Ratio 1.0 Normal Basic Metabolic Profile 12/13/2020 [facility] [phone] Glucose, Fasting 150 mg/dL High 70-100 Blood [...] mg/dL Normal 8.5-10.1 Laboratory test finding 12/13/2020 [facility] [phone] Magnesium Level 1.9 mg/dL Normal 1.8-2.4 NT-Pro BNP 56400 pg/mL High <125 Lipase 204 U/L Normal 73-393 Thyroid Stimulating Hormone 2.450 uIU/ML Normal 0.358-3.740 Prothrombin Time/Inr 12/13/2020 [facility] [phone] Prothrombin Time 22.4 seconds High 12.7-14.5 Inr 1.92 Normal 3 Lipid Profile/Cardiac Risk Pro 07/27/2020 [facility] - not interfaced (315)- - Triglycerides 297 High <150 Cholesterol 117 <200 HDL 27 Low >40.0 LDL Cholesterol 31 Chol/HDL Ratio 4.333 <5 Hemoglobin A1c 07/27/2020 [facility] - not interfaced (315)- - Hemoglobin A1c 8.5 Laboratory test finding 07/21/2020 [facility] - not interf aced (315)- - I-Stat Troponin I 0.11 Laboratory test finding 07/21/2020 [facility] - not interf aced (315)- - I-Stat Troponin I 0.13 CBC without Differential 07/21/2020 [facility] - not inter faced (315)- - [...] Little GFR Left ESRD GFR <15 on COLLISION ESTIMATOR 2 Units are mL/min/1.73 m2 Chronic Kidney Disease Staging per NKF: Stage I & II GFR >=60 Normal to Mildly Decreased Stage III GFR 30-59 Moderately Decreased Stage IV GFR 15-29 Severely Decreased Stage V GFR <15 Very Little GFR Left ESRD GFR <15 on COLLISION ESTIMATOR 3 THERAPUTIC HUMAN INR VALUES INDICATIONS NORMAL RANGES PROPHYLAXIS/TREATMENT OF: VENOUS THROMBOSIS 2.0-3.0 PULMONARY EMBOLISM 2.0-3.0 PREVENTION OF SYSTEMIC EMBOLISM FROM: TISSUE HEART VALVES 2.0-3.0 ACUTE MYOCARDIAL INFARCTION 2.0-3.0 VALVULAR HEART DISEASE 2.0-3.0 ATRIAL FIBRILLATION 2.0-3.0 MECHANICAL VALVES(HIGH RISK) 2.5-3.5 RECURRENT MYOCARDIAL INFARCTION 2.5-3.5 Procedures Date Code Description Status 12/23/2020 29544 Office/Outpatient Established Mo d MDM 30-39 Min Completed 12/23/2020 86610 ECG 12-Lead Completed 08/03/2020 75923 Echocardiogram 2-D Doppler Color Completed 07/29/2020 54127 Office/Outpatient Established Mo d MDM 30-39 Min Completed 07/29/2020 08322 ECG 12-Lead Completed Medical Devices Description No Information Available Encounters Type Date Location Provider Dx Diagnosis Office Visit 12/23/2020 11:15a Main Office AZAEL De La Fuente I25 .10 Athscl heart disease of [place] coronary artery w/o ang pctrs I47.2 Ventricular tachycardia Z95.810 Presence of automatic (impla ntable) cardiac defibrillator F17.210 Nicotine dependence, cigaret marilee, uncomplicated Office Visit 07/29/2020 3:30p Main Office AZAEL De La Fuente I25 .10 Athscl heart disease of [place] coronary artery w/o ang pctrs I25.5 Ischemic cardiomyopathy I11.0 Hypertensive heart disease w ith heart failure F17.210 Nicotine dependence, cigaret marilee, uncomplicated R94.31 Abnormal electrocardiogram [ ECG] [EKG] Z71.3 Dietary counseling and surve illance Assessments Date Code Description Provider 12/23/2020 I25.10 Atherosclerotic heart disease of [place] coronary artery with AZAEL De La Fuente 12/23/2020 I47.2 Ventricular tachycardia AZAEL Lin 12/23/2020 Z95.810 Presence of automatic (implantab le) cardiac defibrillator AZAEL De La Fuente 12/23/2020 F17.210 Nicotine dependence, cigarettes, uncomplicated AZAEL De La Fuente 08/03/2020 I25.5 Ischemic cardiomyopathy ECHO 07/29/2020 I25.10 Atherosclerotic heart disease of [place] coronary artery with AZAEL De La Fuente [...] La Fuente* I25.10 Atherosclerotic heart disease of [place] coronary artery with* Recommendations:* Continue atorvastatin, bisoprolol, [...] Description No Information Available Referrals Refer to Dr Reason for Referral Status Appt Date Yaron Malloy MD [facility] AUTH EMR-EXPIRES 10/28/20. [place] Created [address] [facility] [id number] [phone] Abiodun Monte MD [facility] AUTH EMR-EXPIRES 09/09/20. [place] Created 36 [facility] [id number] [phone]
--- OUTSIDE RECORDS SUMMARY | 2021-02-21 00:32 | CCD ---
Author Author [facility] Organization [facility] Address Unknown Phone Unavailable Care Team Providers Care Cover Maker Name Role Phone Crystal Neal MD Unavailable Unavailable Crystal Neal MD Unavailable Unavailable Crystal Neal MD Unavailable Unavailable Crystal Neal MD Unavailable Unavailable Crystal Neal MD Unavailable Unavailable Crystal Neal MD Unavailable Unavailable Crystal Neal MD Unavailable Unavailable Crystal Neal MD Unavailable Unavailable Crystal Neal MD Unavailable Unavailable Crystal Neal MD Unavailable Unavailable Crystal Neal MD Unavailable Unavailable Crystal Neal MD Unavailable Unavailable Crystal Neal MD Unavailable Unavailable Crystal Neal MD Unavailable Unavailable Crystal Neal MD Unavailable Unavailable Crystal Neal MD Unavailable Unavailable Crystal Neal MD Unavailable Unavailable Jaswinder Castro MD Unavailable Unavailable Jaswinder Castro MD Unavailable Unavailable Jaswinder Castro MD Unavailable Unavailable Gloria, Jaswinder QUIROZ Unavailable Unavailable Gloria, Jaswinder QUIROZ Unavailable Unavailable Gloria, Jaswinder Unavailable Unavailable Gloria, Jaswinder Unavailable Unavailable Gloria, Jaswinder Unavailable Unavailable Gloria, Jaswinder Unavailable Unavailable Gloria, Jaswinder Unavailable Unavailable Gloria, Jaswinder Unavailable Unavailable Gloria, Jaswinder Unavailable Unavailable Gloria, Jaswinder Unavailable Unavailable Gloria, Jaswinder Unavailable Unavailable Gloria, Jaswinder Unavailable Unavailable Gloria, Jaswinder Unavailable Unavailable Gloria, Jaswinder Unavailable Unavailable MigeedLeo MD Unavailable Unavaila ble MigeedLeo MD Unavailable Unavaila ble MigeedLeo MD Unavailable Unavaila ble MigeedLeo MD Unavailable Unavaila ble MigeedLeo MD Unavailable Unavaila ble MigeedLeo MD Unavailable Unavaila ble MigeedLeo MD Unavailable Unavaila ble MigeedLeo MD Unavailable Unavaila ble MigeedLeo MD Unavailable Unavaila ble MigeedLeo MD Unavailable Unavaila ble MigeedLeo MD Unavailable Unavaila ble MigeedLeo MD Unavailable Unavaila ble MigeedLeo MD Unavailable Unavaila ble MigeedLeo MD Unavailable Unavaila ble MigeedLeo MD Unavailable Unavaila ble MigeedLeo MD Unavailable Unavaila ble MigeedLeo MD Unavailable Unavaila ble MigeedLeo MD Unavailable Unavaila ble MigeedLeo MD Unavailable Unavaila ble MigeedLeo MD Unavailable Unavaila ble MigeedLeo MD Unavailable Unavaila ble MigeedLeo MD Unavailable Unavaila ble MigeedLeo MD Unavailable Unavaila ble MigeedLeo MD Unavailable Unavaila ble Migeed, Leo Landin MD Unavailable Unavaila ble Migeed, Leo Landin MD Unavailable Unavaila ble Migeed, Leo Landin MD Unavailable Unavaila ble Migeed, Leo Landin MD Unavailable Unavaila ble Migeed, Leo Landin MD Unavailable Unavaila ble Migeed, Leo Landin MD Unavailable Unavaila ble Migeed, Leo Landin MD Unavailable Unavaila ble Migeed, Leo Landin MD Unavailable Unavaila ble Migeed, Leo Landin MD Unavailable Unavaila ble Migeed, Leo Ladnin MD Unavailable Unavaila ble Migeed, Leo Landin MD Unavailable Unavaila ble Migeed, Leo Landin MD Unavailable Unavaila ble Migeed, Leo Landin MD Unavailable Unavaila ble Migeed, Leo Landin MD Unavailable Unavaila ble Migeed, Leo Landin MD Unavailable Unavaila ble Migeed, Leo Landin MD Unavailable Unavaila ble Migeed, Leo Landin MD Unavailable Unavaila ble Migeed, Leo Landin MD Unavailable Unavaila ble Migeed, Leo Landin MD Unavailable Unavaila ble Migeed, Leo Landin MD Unavailable Unavaila ble Migeed, Leo Landin MD Unavailable Unavaila ble Migeed, Leo Landin MD Unavailable Unavaila ble Migeed, Leo Landin MD Unavailable Unavaila ble Migeed, Leo Landin MD Unavailable Unavaila ble Migeed, Leo Landin MD Unavailable Unavaila ble PEDRO, L HAIR PA Unavailable Unavailable PEDRO, L HAIR PA Unavailable Unavailable PEDRO, L HAIR PA Unavailable Unavailable PEDRO, L HAIR PA Unavailable Unavailable PEDRO, L HAIR PA Unavailable Unavailable PEDRO, L HAIR PA Unavailable Unavailable PEDRO, L HAIR PA Unavailable Unavailable PEDRO, L HAIR PA Unavailable Unavailable PEDRO, L HAIR PA Unavailable Unavailable PEDRO, L HAIR PA Unavailable Unavailable PEDRO, L HAIR PA Unavailable Unavailable PEDRO, L HAIR PA Unavailable Unavailable PEDRO, L HAIR PA Unavailable Unavailable PEDRO, L HAIR PA Unavailable Unavailable PEDRO, L HAIR PA Unavailable Unavailable PEDRO, L HAIR PA Unavailable Unavailable DANNYLILIANA Unavailable Unavailable Re-disclosure Warning The records that you are about to access may contain information from federally-assisted alcohol or drug abuse programs. If such information is present, then the following federally mandated warning applies: This information has been disclosed to you from records protected by federal confidentiality rules (42 CFR part 2). The federal rules prohibit you from making any further disclosure of this information unless further disclosure is expressly permitted by the written consent of the person to whom it pertains or as otherwise permitted by 42 CFR part 2. A general authorization for the release of medical or other information is NOT sufficient for this purpose. The Federal rules restrict any use of the information to criminally investigate or prosecute any alcohol or drug abuse patient.The records that you are about to access may contain highly sensitive health information, the redisclosure of which is protected by Article 27-F of the [facility] Public Health law. If you continue you may have access to information: Regarding HIV / AIDS; Provided by facilities licensed or operated by the [facility] Office of Mental Health; or Provided by the [facility] Office for People With Developmental Disabilities. If such information is present, then the following [facility] mandated warning applies: This information has been disclosed to you from confidential records which are protected by state law. State law prohibits you from making any further disclosure of this information without the specific written consent of the person to whom it pertains, or as otherwise permitted by law. Any unauthorized further disclosure in violation of state law may result in a fine or long term sentence or both. A general authorization for the release of medical or other information is NOT sufficient authorization for further disc losure. Family History Family Member Name Family Member Gender Family Member Status Date o f Status Description Data Source(s) Unknown Male Problem [facility] ([facility] Unknown Male Problem MEDENT ([facility]) Unknown Female Problem MEDENT ([facility] Unknown Female Problem MEDENT ([facility] Unknown Female Problem MEDENT ([facility] Encounters Encounter Providers Location Date Indications Data Source(s ) [place] [address] [facility] [address] 01/19/2021 12:00:00 AM EDT [facility] [place] [address] [facility] [address] 12/31/2020 12:00:00 AM EDT [facility]CW1 [facility]) [place]patient [address] [facility] [place] [address] 12/24/2020 12:00:00 AM EDT eCW1 ([facility]) Outpatient Attender: HAIR ADDISON Main Office 12/23/2020 1 1:15:00 AM EDT MEDENT ([facility] Inpatient Attender: Jaswinder Castro MDAtt ramirez: LILIANA DEANAttender: Crystal Neal MDAdmitter: Crystal Neal MDConsultant: Mushtaq Hylton MD [id number] 12/13/2020 12:38:00 PM EDT - 12/17/2020 10:44:00 PM EDT [facility] Patient discharged. [place] [address] [facility] [address] 10/15/2020 12:00:00 AM EDT [facility] [place] [address] [facility] [address] 08/04/2020 12:00:00 AM EDT [facility] [place] [address] [facility] [address] 07/30/2020 12:00:00 AM EDT [facility]CW1 ([facility] Unknown [address] [facility] [address] 07/30/2020 12:00:00 AM EDT eCW1 [facility]) Outpatient Attender: HAIR ADDISON Main Office 07/29/2020 0 3:30:00 PM EDT MEDENT ([facility] [place] [address] [facility] [address] 07/28/2020 12:00:00 AM EDT eCW1 ([facility]) [place] [address] [facility] [address] 07/28/2020 12:00:00 AM EDT eCW1 ([facility]) [place] [address] [facility] [place] [address] 07/23/2020 12:00:00 AM EDT eCW1 ([facility]) Outpatient Attender: HAIR ADDISON Main Office 04/27/2020 0 8:45:00 AM EST MED[facility] ([facility]) [place] [address] [facility] [address] 02/25/2020 12:00:00 AM EST eCW1 ([facility]) Unknown [address] [facility] [address] 02/12/2020 12:00:00 AM EST eCW1 ([facility]) [place] [address] [facility] [address] 01/19/2020 12:00:00 AM EDT eCW1 ([facility]) [place] [address] [facility] [address] 01/15/2020 12:00:00 AM EDT eCW1 ([facility]) Immunizations Vaccine Date Status Description Data Source(s) influenza, recombinant, quadrIvalent,injectable, prese rvative free 01/19/2021 07:56:00 AM EDT completed eCW1 (Replaced by [facility]) COVID-19 VACC,MRNA(MODERNA)/PF 08/23/2020 12:00:00 AM EDT completed [facility] COVID-19 VACCINE Moderna 08/23/2020 12:00:00 AM EDT completed [facility] Vaccine Series Complete: YESThis Data wa s Submitted to [facility] Via [employer]. COVID-19 VACCINE Moderna 07/25/2020 12:00:00 AM EDT completed [facility] Vaccine Series Complete: NOThis Data was Submitted to [facility] Via [email or web address]. COVID-19 VACC,MRNA(MODERNA)/PF 07/25/2020 12:00:00 AM EDT completed [facility] influenza, recombinant, quadrIvalent,injectable, prese rvative free 01/15/2020 07:34:00 AM EDT completed eCW1 (Replaced by [facility]) influenza, recombinant, quadrIvalent,injectable, prese rvative free 01/15/2020 07:34:00 AM EDT completed eCW1 (Replaced by [facility]) influenza, recombinant, quadrIvalent,injectable, prese rvative free 01/15/2020 07:34:00 AM EDT completed eCW1 (Replaced by [facility]) influenza, recombinant, quadrIvalent,injectable, prese rvative free 01/15/2020 07:34:00 AM EDT completed eCW1 (Replaced by [facility]) influenza, recombinant, quadrIvalent,injectable, prese rvative free 01/15/2020 07:34:00 AM EDT completed eCW1 (Replaced by [facility]) influenza, recombinant, quadrIvalent,injectable, prese rvative free 01/15/2020 07:34:00 AM EDT completed eCW1 (Replaced by [facility]) influenza, recombinant, quadrIvalent,injectable, prese rvative free 01/15/2020 07:34:00 AM EDT completed eCW1 (Replaced by [facility]) influenza, recombinant, quadrIvalent,injectable, prese rvative free 01/15/2020 07:34:00 AM EDT completed eCW1 (Replaced by [facility]) influenza, recombinant, quadrIvalent,injectable, prese rvative free 01/15/2020 07:34:00 AM EDT completed eCW1 (Replaced by [facility]) influenza, recombinant, quadrIvalent,injectable, prese rvative free 01/15/2020 07:34:00 AM EDT completed eCW1 (Replaced by [facility]) influenza, recombinant, quadrIvalent,injectable, prese rvative free 01/15/2020 07:34:00 AM EDT completed eCW1 (Replaced by [facility]) influenza, recombinant, quadrIvalent,injectable, prese rvative free 01/15/2020 07:34:00 AM EDT completed eCW1 (Replaced by [facility]) influenza, recombinant, quadrIvalent,injectable, prese rvative free 01/15/2020 07:34:00 AM EDT completed eCW1 (Replaced by [facility]) influenza, recombinant, quadrIvalent,injectable, prese rvative free 01/15/2020 07:34:00 AM EDT completed eCW1 (Replaced by [facility]) This CVX code allows reporting of a vacc ination when formulation is unknown (for example, when recording a Influenza vaccination when noted on a vaccination card) 01/08/2020 12:00:00 AM EDT completed <td ID="immun [id number]">Influenza (Unspecified)</td><td>01/08/2020</td><td></td> [facility] Medications Medication Brand Name Start Date Product Form Dose Route Admi nistrative Instructions Pharmacy Instructions Status Indications Reaction Description Data Source(s) 15 mg 01/24/2021 12:00:00 AM EDT tablet 30 TAKE ONE TABLET BY MOUTH EVERY DAY TAKE ONE TABLET BY MOUTH EVERY DAY SOLD: 01/27/2021 [facility] 75 mg 01/16/2021 12:00:00 AM EDT tablet 11 TAKE ONE TABLET BY MOUTH EVERY DAY TAKE ONE TABLET BY MOUTH EVERY DAY SOLD: 02/14/2021 [facility] 75 mg 01/16/2021 12:00:00 AM EDT tablet 30 TAKE ONE TABLET BY MOUTH EVERY DAY TAKE ONE TABLET BY MOUTH EVERY DAY SOLD: 01/16/2021 [facility] 40 mg 01/16/2021 12:00:00 AM EDT tablet 22 TAKE ONE TABLET BY MOUTH TWICE A DAY TAKE ONE TABLET BY MOUTH TWICE A DAY SOLD: 02/14/2021 [facility] 40 mg 01/16/2021 12:00:00 AM EDT tablet 60 TAKE ONE TABLET BY MOUTH TWICE A DAY TAKE ONE TABLET BY MOUTH TWICE A DAY SOLD: 01/16/2021 [facility] 0.4 mg 12/25/2020 12:00:00 AM EDT tablet, sublingual 25 ONE TABLET UNDER TONGUE EVERY 5 MINUTES FOR UP TO 3 DOSES NEEDED FOR CHEST PAIN ONE TABLET UNDER TONGUE EVERY 5 MINUTES FOR UP TO 3 DOSES NEEDED FOR CHEST PAIN SOLD: 12/28/2020 [facility] montelukast 10 MG Oral Tablet MONTELUKAST SODIUM 12/24/2020 12:0 0:00 AM EDT tablet 30 TAKE ONE TABLET BY MOUTH EVERY D AY TAKE ONE TABLET BY MOUTH EVERY DAY SOLD: 12/24/2020 [facility] montelukast 10 MG Oral Tablet MONTELUKAST SODIUM 12/24/2020 12:0 0:00 AM EDT tablet 30 TAKE ONE TABLET BY MOUTH EVERY D AY TAKE ONE TABLET BY MOUTH EVERY DAY SOLD: 01/27/2021 [facility] 21 mg/24 hr 12/24/2020 12:00:00 AM EDT patch 24 hour 21 APPLY ONE PATCH TO THE SKIN EVERY DAY FOR 6 WEEKS APPLY ONE PATCH TO THE SKIN EVERY DAY FO R 6 WEEKS SOLD: 12/24/2020 [facility] 24 HR Nicotine 0.875 MG/HR Transdermal Patch Nicotine Transd ermal System Step 1 12/23/2020 12:00:00 AM EDT active MEDENT ([facility] Furosemide 40 MG Oral Tablet Furosemide 12/22/2020 12:00:00 AM EDT ORAL active [facility] ([facility]) clopidogrel 75 MG Oral Tablet Clopidogrel Bisulfate 12/22/2020 1 2:00:00 AM EDT ORAL active MED[facility] ( [facility]) Metformin hydrochloride 500 MG Oral Tablet Metformin HCL 12/22/2020 12:00:00 AM EDT ORAL active [facility] ([facility]) 40 mg 12/18/2020 12:00:00 AM EDT tablet 60 TAKE ONE TABLET BY MOUTH TWICE A DAY TAKE ONE TABLET BY MOUTH TWICE A DAY SOLD: 12/18/2020 [facility] 75 mg 12/18/2020 12:00:00 AM EDT tablet 30 TAKE ONE TABLET BY MOUTH EVERY DAY TAKE ONE TABLET BY MOUTH EVERY DAY SOLD: 12/18/2020 [facility] lidocaine 1 % injection [id number] 12/17/2020 05:16:56 PM EDT active As needed, Starting on Sun at 1716, Intra-Procedure [facility] Medication administered onsite Cefazolin 1000 MG Injection ceFAZolin (ANCEF) injectio n ceFAZolin (ANCEF) injection 12/17/2020 05:05:00 PM EDT active As needed, Starting on Sun12/17/20 at 1705, Intra-Procedure [facility] Medication administered onsite Furosemide 40 MG Oral Tablet furosemide (LASIX) tablet 40 mg furosemide (LASIX) tablet 40 mg 12/17/2020 05:00:00 PM EDT 40 mg Oral activ e 40 mg, Oral, LOOPBID, First dose on Sun12/17/20 at 1700 [facility] Medication administered onsite clopidogrel 75 MG Oral Tablet clopidogrel (PLAVIX) 75 MG tablet clopidogrel (PLAVIX) 75 MG tablet 12/17/2020 12:00:00 AM EDT 75 mg Oral active Take 1 tablet (75 mg total) by mouth daily [facility] Furosemide 40 MG Oral Tablet furosemide (LASIX) 40 MG tablet furosemide (LASIX) 40 MG tablet 12/17/2020 12:00:00 AM EDT 40 mg Oral activ e Take 1 tablet (40 mg total) by mouth Twice Daily for Loop Diuretics [facility] iopamidol (ISOVUE-370) 76 % [id number] 12/15/2020 05:24:15 PM EDT active As needed, Starting on Sun12/15/20 at 1724, Intra-Proce [facility] Medication administered onsite 1 ML heparin sodium, porcine 1000 UNT/ML Injection hep quentin (porcine) injection heparin (porcine) injection 12/15/2020 05:19:28 PM EDT active As needed, Starting on Sun12/15/20 at 1719, Intra-Procedure [facility] Medication administered onsite 4 ML Verapamil hydrochloride 2.5 MG/ML Injection verap [place] (ISOPTIN) injection verapamil (ISOPTIN) injection 12/15/2020 05:19:13 PM EDT active As needed, Starting on Sun12/15/20 at 1719, Intra-Procedure [facility] Medication administered onsite lidocaine 1 % injection [id number] 12/15/2020 05:17:03 PM EDT active As needed, Starting on Sun 1 at 1717, Intra-Procedure [facility] Medication administered onsite 2 ML Midazolam 1 MG/ML Injection midazolam (VERSED) in jection midazolam (VERSED) injection 12/15/2020 05:16:45 PM EDT active As needed, Starting on Sun12/15/20 at 1716, Intra-Procedure [facility] Medication administered onsite fentaNYL Citrate (PF) (SUBLIMAZE) injection [id number] 12/15/2020 05:16:30 PM EDT active As neede d, Starting on Sun12/15/20 at 1716, Intra-Procedure [facility] Medication administered onsite normal saline flush 0.9 % injection 3 mL [id number] 12/15/2020 03:00:00 PM EDT 3 mL Intravenous aborted 3 mL , Intravenous, PROTOCOL, First dose on Sun12/15/20 at 1500, Pre-op
flush per protocol, D/C Main IV fluid if appropriate
[facility] Medication administered onsite sodium chloride 0.9% (NS) infusion 5742-6268-91 12/15/2020 02:00:00 PM EDT 100 mL/h Intravenous aborted at 100 m L/hr, 100 mL/hr, Intravenous, Continuous, Starting on Sun12/15/20 at 1400, Pre-op
Start two hours prior to scheduled start time
[facility] Medication administered onsite Acetaminophen 325 MG Oral Tablet acetaminophen (TYLENO L) 325 MG tablet 650 mg acetaminophen (TYLENOL) 325 MG tablet 650 mg 12/15/2020 12:45:21 PM EDT 650 mg Oral active 650 mg, Or al, Every 4 hours PRN, headaches, and non cardiac pain, Starting on Sun12/15/20 at 1245, Pre-op
"Maximum dose of acetaminophen is 4,000 mg from all sources in 24 hours."
[facility] Medication administered onsite Bisoprolol Fumarate 5 MG Oral Tablet bisoprolol (ZEBET A) tablet 2.5 mg bisoprolol (ZEBETA) tablet 2.5 mg 12/15/2020 02:00:00 AM EDT 2.5 mg Oral completed 2.5 mg, Oral, Once, On Sun 1 at 0200, For 1 dose [facility] Medication administered onsite clopidogrel 75 MG Oral Tablet clopidogrel (PLAVIX) tab let 75 mg clopidogrel (PLAVIX) tablet 75 mg 12/14/2020 09:00:00 AM EDT 75 mg Oral active 75 mg, Oral, Daily, First dose on Sun12/14/20 at 0900 [facility] Medication administered onsite Aspirin 81 MG Chewable Tablet aspirin chewable tablet 81 mg aspirin chewable tablet 81 mg 12/14/2020 09:00:00 AM EDT 81 mg Oral activ e 81 mg, Oral, Daily, First dose on Sun12/14/20 at 0900 [facility] Medication administered onsite acetylcysteine (ACETADOTE) 9,460 mg in dextrose 5 % 1,000 mL infusion 12/14/2020 02:00:00 AM EDT 100 mg/kg Intravenous complet ed 9,460 mg (100 mg/kg 94.6 kg), Intravenous, Administer over 16 Hours, Once, On Sun12/14/20 at 0200, For 1 dose [facility] Medication administered onsite acetylcysteine (ACETADOTE) 4,740 mg in dextrose 5 % 500 mL i nfusion 12/13/2020 10:00:00 PM EDT 50 mg/kg Intravenous completed 4,740 mg (rounded from 4,730 mg = 50 mg/kg 94.6 kg), Intravenous, Administer over 4 Hours, Once, On Sun12/13/20 at 2200, For 1 dose [facility] Medication administered onsite montelukast 10 MG Oral Tablet montelukast (SINGULAIR) tablet 10 mg montelukast (SINGULAIR) tablet 10 mg 12/13/2020 09:00:00 PM EDT 10 mg Oral active 10 mg, Oral, Nightly, First dose on Sun12/13/20 at 2100 [facility] Medication administered onsite acetylcysteine (ACETADOTE) 14,200 mg in dextrose 5 % 200 mL infusion 12/13/2020 09:00:00 PM EDT 150 mg/kg Intravenous complet ed 14,200 mg (rounded from 14,190 mg = 150 mg/kg 94.6 kg), Intravenous, Administer over 1 Hours, Once, On Sun12/13/20 at 2100, For 1 dose [facility] Medication administered onsite Insulin Lispro 100 UNT/ML Injectable Michelle ution insulin lispro (HumaLOG) injection 1-4 Units insulin lispro (HumaLOG) injection 1-4 Units 1 05:00:00 PM EDT U Subcutaneous active 1-4 Units, Subcutaneous, MEALSS, First dose on Sun12/13/20 at 1700
2 units Nutritional and Correction Insulin Scale Blood Glucose (mg/dl) <70 start hypoglycemia protocol Glucose &nbsp ; Eats >=50% Eats <50%& amp;nbsp; Eats Nothing (mg/dl) of meal of meal or NPO &am p;nbsp;70- 120 1 units 1 units 0 units 121-170 & amp;nbsp; 2 units 1 units 0 units 171-220 & nbsp; 2 units 1 units 0 units 221-270 &n bsp; 3 units 2 units 1 units 271- 320 3 units 2 units 1 units 321- 370 3 units 2 units 1 units 371-42 0 4 units 3 units 2 units >420 call MD 4 units 3 units 2 units Test glucose within 30 minutes of insulin administration. Administer insulin within 15 minutes (before or after) of the patient starting to eat. For patients that are NPO, use the NPO (correction) scale to cover POC glucose at 08:00, 12:00, 17:00.
[facility] Medication administered onsite normal saline flush 0.9 % injection 3 mL [id number] 12/13/2020 03:00:00 PM EDT 3 mL Intravenous aborted 3 mL , Intravenous, PROTOCOL, First dose on Sun12/13/20 at 1500
flush per protocol, D/C Main IV fluid if appropriate
[facility] Medication administered onsite normal saline flush 0.9 % injection 3 mL [id number] 12/13/2020 02:00:00 PM EDT 3 mL Intravenous active 3 mL , Intravenous, Every 8 hours (scheduled), First dose on Sun12/13/20 at 1400
flush per protocol, D/C Main IV fluid if appropriate
[facility] Medication administered onsite Bisoprolol Fumarate 5 MG Oral Tablet bisoprolol (ZEBET A) tablet 5 mg bisoprolol (ZEBETA) tablet 5 mg 12/13/2020 02:00:00 PM EDT 5 mg Oral active 5 mg, Oral, Daily, First dose on Sun12/13/20 at 1400
Hold for manual SBP < 110, HR < 65
[facility] Medication administered onsite perflutren lipid microsphere (DEFINITY) 8.476 mg in 10 mL NS IV drug or medication 12/13/2020 01:24:55 PM EDT mL Intravenous co mpleted 2-10 mL, Intravenous, Once as needed, to be used when clinically necessary, Starting on Sun12/13/20 at 1324, For 1 dose
To be given with fiberglass technician at bedside for exam 1. Activate in VIALMIX agitator for 45 seconds 2. Withdraw 1.3 ml of activated perflutren suspension and dilute in 8.7 ml of 0.9% NS (Total volume = 10 ml) 3. Inject 2 ml slowly over 30 seconds. Repeat in 2 ml aliquots as needed. DO NOT EXCEED 10 ML TOTAL DOSE!
[facility] Medication administered onsite Albuterol 0.83 MG/ML Inhalant Solution a lbuterol (PROVENTIL) nebulizer solution 2.5 mg albuterol (PROVENTIL) nebulizer solution 2.5 mg 2020 01:19:02 PM EDT 2.5 mg active 2.5 mg, Nebulization, RT 4 times daily as needed, wheezing, Starting on Sun12/13/20 at 1319 [facility] Medication administered onsite Nitroglycerin 0.4 MG Sublingual Tablet n itroglycerin (NITROSTAT) SL tablet 0.4 mg nitroglycerin (NITROSTAT) SL tablet 0.4 mg 12/13/2020 01:16:55 P M EDT 0.4 mg Sublingual active 0.4 mg, S ublingual, Every 5 min PRN, chest pain, Starting on Sun12/13/20 at 1316
May administer up to 3 doses per episode.
[facility] Medication administered onsite 500 ML heparin sodium, porcine 50 UNT/ML Injection heparin infusion 25,000 units in 500 mL 0.45% NaCl heparin infusion 25,000 units in 500 mL 0.45% NaCl 12/13/2020 01:00:00 PM EDT 17 U/kg/h Intravenous active 17 Units/kg/hr 94.6 kg (32.164 mL/hr, rounded to 32.2 mL/hr), Intravenous, at 32.2 mL/hr, Continuous, Starting on Sun12/13/20 at 1300
For Cardiac/BridgeaPTT (seconds) Heparin Dose (weight based)< 34 Bolus: 60 units/kg IV (Maximum bolus: 5,000 units) and increase infusion 3 units/kg/hr IV34 - 50 Bolus: 30 units/kg IV (Maximum bolus: 5,000 units) and increase infusion 2 units/kg/hr IV50.1 - 58 No bolus. Increase infusion 1 unit/kg/hr IV58.1 - 87 Therapeutic, No Omycgk96.1 - 97 Decrease infusion 1 unit/kg/hr IV 97.1 - 110Hold infusion for 30 minutes & decrease infusion 2 units/kg/hr IV> 110 Call MD if patient is bleeding. Hold infusion for 60 minutes & decrease infusion 3 units/kg/hr IVInitial heparin IV infusion rate:Do not exceed 1000 units/hr or 12 units/kg/hr initially (whichever is less)Infuse this medication only through single port tubing (SmartSite Infusion Set ref [id number]). Medication and tubing is to be discarded if infusion off for 4 hours.
[facility] Medication administered onsite 1 ML heparin sodium, porcine 1000 UNT/ML Injection heparin (porcine) injection 100-5,000 Units heparin (porcine) injection 100-5,000 Units 12/13/2020 12:44:00 PM EDT U Intravenous active 100- 5,000 Units, Intravenous, As needed, other, Starting on 12/13/20 at 1244
Round dose to nearest 100 units aPTT: < 34 &n bsp; Bolus: 60 units/kg IV (Maximum bolus: 5,000 units) 34 - 50 Bolus: 30 units/kg IV (Maximum bolus: 5,000 units)
[facility] Medication administered onsite BLOOD SUGAR DIAGNOSTIC 12/11/2020 12:00:00 AM EDT strip 50 TEST DAILY DIRECTED TEST DAILY DIRECTED SOLD: 12/12/2020 [facility] 80 mg 11/26/2020 12:00:00 AM EDT tablet 30 TAKE ONE TABLET BY MOUTH EVERY DAY TAKE ONE TABLET BY MOUTH EVERY DAY SOLD: 12/28/2020 [facility] 10 mg 11/26/2020 12:00:00 AM EDT tablet 30 TAKE ONE TABLET BY MOUTH EVERY DAY FOR BLOOD PRESURE GREATER THAN 150/90 TAKE ONE TABLET BY MOUTH EVERY DAY FOR BLOOD PRESURE GREATER THAN 150/90 SOLD: 12/28/2020 [facility] 10 mg 11/26/2020 12:00:00 AM EDT tablet 30 TAKE ONE TABLET BY MOUTH EVERY DAY FOR BLOOD PRESURE GREATER THAN 150/90 TAKE ONE TABLET BY MOUTH EVERY DAY FOR BLOOD PRESURE GREATER THAN 150/90 SOLD: 11/27/2020 [facility] 10 mg 11/26/2020 12:00:00 AM EDT tablet 30 TAKE ONE TABLET BY MOUTH EVERY DAY FOR BLOOD PRESURE GREATER THAN 150/90 TAKE ONE TABLET BY MOUTH EVERY DAY FOR BLOOD PRESURE GREATER THAN 150/90 SOLD: 01/27/2021 [facility] 24 HR Metformin hydrochloride 500 MG Extended Release Oral T ablet METFORMIN HCL 11/26/2020 12:00:00 AM EDT tablet extended release 24 hr 60 TAKE TWO TABLETS BY MOUTH EVERY EVENING TAKE TWO TABLETS BY MOUTH EVERY EVENING SOLD: 12/28/2020 [facility] 80 mg 11/26/2020 12:00:00 AM EDT tablet 30 TAKE ONE TABLET BY MOUTH EVERY DAY TAKE ONE TABLET BY MOUTH EVERY DAY SOLD: 01/27/2021 [facility] 24 HR Metformin hydrochloride 500 MG Extended Release Oral T ablet METFORMIN HCL 11/26/2020 12:00:00 AM EDT tablet extended release 24 hr 60 TAKE TWO TABLETS BY MOUTH EVERY EVENING TAKE TWO TABLETS BY MOUTH EVERY EVENING SOLD: 11/27/2020 [facility] 81 mg 11/26/2020 12:00:00 AM EDT tablet,delayed release (DR/EC) 30 TAKE ONE TABLET BY MOUTH EVERY DAY TAKE ONE TABLET BY MOUTH EVERY DAY SOLD: 01/27/2021 [facility] 80 mg 11/26/2020 12:00:00 AM EDT tablet 30 TAKE ONE TABLET BY MOUTH EVERY DAY TAKE ONE TABLET BY MOUTH EVERY DAY SOLD: 11/27/2020 [facility] 24 HR Metformin hydrochloride 500 MG Extended Release Oral T ablet METFORMIN HCL 11/26/2020 12:00:00 AM EDT tablet extended release 24 hr 60 TAKE TWO TABLETS BY MOUTH EVERY EVENING TAKE TWO TABLETS BY MOUTH EVERY EVENING SOLD: 01/27/2021 [facility] 81 mg 11/26/2020 12:00:00 AM EDT tablet,delayed release (DR/EC) 30 TAKE ONE TABLET BY MOUTH EVERY DAY TAKE ONE TABLET BY MOUTH EVERY DAY SOLD: 11/27/2020 [facility] 81 mg 11/26/2020 12:00:00 AM EDT tablet,delayed release (DR/EC) 30 TAKE ONE TABLET BY MOUTH EVERY DAY TAKE ONE TABLET BY MOUTH EVERY DAY SOLD: 12/28/2020 [facility] 15 mg 10/28/2020 12:00:00 AM EDT tablet 90 TAKE ONE TABLET BY MOUTH EVERY DAY TAKE ONE TABLET BY MOUTH EVERY DAY SOLD: 10/28/2020 [facility] 25 mg 09/28/2020 12:00:00 AM EDT tablet 15 TAKE ONE-HALF TABLET BY MOUTH EVERY DAY TAKE ONE-HALF TABLET BY MOUTH EVERY DAY SOLD: 10/28/2020 [facility] 25 mg 09/28/2020 12:00:00 AM EDT tablet 15 TAKE ONE-HALF TABLET BY MOUTH EVERY DAY TAKE ONE-HALF TABLET BY MOUTH EVERY DAY SOLD: 09/28/2020 [facility] 25 mg 09/28/2020 12:00:00 AM EDT tablet 15 TAKE ONE-HALF TABLET BY MOUTH EVERY DAY TAKE ONE-HALF TABLET BY MOUTH EVERY DAY SOLD: 11/27/2020 [facility] BLOOD SUGAR DIAGNOSTIC 08/25/2020 12:00:00 AM EDT strip 75 DIRECTED TEST THREE TIMES A DAY DIRECTED TEST THREE TIMES A DAY SOLD: 01/28/2021 [facility] BLOOD SUGAR DIAGNOSTIC 08/25/2020 12:00:00 AM EDT strip 75 DIRECTED TEST THREE TIMES A DAY DIRECTED TEST THREE TIMES A DAY SOLD: 08/26/2020 [facility] BLOOD SUGAR DIAGNOSTIC 08/25/2020 12:00:00 AM EDT strip 75 DIRECTED TEST THREE TIMES A DAY DIRECTED TEST THREE TIMES A DAY SOLD: 12/30/2020 [facility] 80 mg 08/23/2020 12:00:00 AM EDT tablet 30 TAKE ONE TABLET BY MOUTH EVERY DAY TAKE ONE TABLET BY MOUTH EVERY DAY SOLD: 10/28/2020 [facility] 81 mg 08/23/2020 12:00:00 AM EDT tablet,delayed release (DR/EC) 30 TAKE ONE TABLET BY MOUTH EVERY DAY TAKE ONE TABLET BY MOUTH EVERY DAY SOLD: 09/28/2020 [facility] 81 mg 08/23/2020 12:00:00 AM EDT tablet,delayed release (DR/EC) 30 TAKE ONE TABLET BY MOUTH EVERY DAY TAKE ONE TABLET BY MOUTH EVERY DAY SOLD: 08/26/2020 [facility] 81 mg 08/23/2020 12:00:00 AM EDT tablet,delayed release (DR/EC) 30 TAKE ONE TABLET BY MOUTH EVERY DAY TAKE ONE TABLET BY MOUTH EVERY DAY SOLD: 10/28/2020 [facility] 80 mg 08/23/2020 12:00:00 AM EDT tablet 30 TAKE ONE TABLET BY MOUTH EVERY DAY TAKE ONE TABLET BY MOUTH EVERY DAY SOLD: 08/26/2020 [facility] 80 mg 08/23/2020 12:00:00 AM EDT tablet 30 TAKE ONE TABLET BY MOUTH EVERY DAY TAKE ONE TABLET BY MOUTH EVERY DAY SOLD: 09/28/2020 [facility] BLOOD-GLUCOSE METER 07/31/2020 12:00:00 AM EDT misc 1 TEST DAILY DIRECTED TEST DAILY DIRECTED SOLD: 07/31/2020 [facility] 5 mg 07/31/2020 12:00:00 AM EDT tablet 90 TAKE ONE TABLET BY MOUTH ONCE DAILY TAKE ONE TABLET BY MOUTH ONCE DAILY SOLD: 07/31/2020 [facility] 5 mg 07/31/2020 12:00:00 AM EDT tablet 30 TAKE ONE TABLET BY MOUTH ONCE DAILY TAKE ONE TABLET BY MOUTH ONCE DAILY SOLD: 11/27/2020 [facility] 5 mg 07/31/2020 12:00:00 AM EDT tablet 30 TAKE ONE TABLET BY MOUTH ONCE DAILY TAKE ONE TABLET BY MOUTH ONCE DAILY SOLD: 12/28/2020 [facility] 5 mg 07/31/2020 12:00:00 AM EDT tablet 30 TAKE ONE TABLET BY MOUTH ONCE DAILY TAKE ONE TABLET BY MOUTH ONCE DAILY SOLD: 01/27/2021 [facility] 5 mg 07/31/2020 12:00:00 AM EDT tablet 30 TAKE ONE TABLET BY MOUTH ONCE DAILY TAKE ONE TABLET BY MOUTH ONCE DAILY SOLD: 10/29/2020 [facility] 33 gauge 07/31/2020 12:00:00 AM EDT misc 100 TEST DAILY DIRECTED TEST DAILY DIRECTED SOLD: 07/31/2020 [facility] Lancets - Lancets - 07/30/2020 12:00:00 AM EDT act helio Lancets - eCW1 ([facility]) Blood Glucose Monitor System w/Device Blood Glucose Monitor System w/Device 07/30/2020 12:00:00 AM EDT active Blood Glucose Monitor System w/Device eCW1 ([facility]) Blood Glucose Test - Blood Glucose Test - 07/30/2020 12:00:00 AM EDT active Blood Glucose Test - eCW1 ([facility]) Blood Glucose Monitor System w/Device Blood Glucose Monitor System w/Device 07/30/2020 12:00:00 AM EDT active Blood Glucose Monitor System w/Device eCW1 ([facility]) Blood Glucose Monitor System w/Device Blood Glucose Monitor System w/Device 07/30/2020 12:00:00 AM EDT active Blood Glucose Monitor System w/Device eCW1 ([facility]) Blood Glucose Test - Blood Glucose Test - 07/30/2020 12:00:00 AM EDT active Blood Glucose Test - eCW1 ([facility]) Lancets - Lancets - 07/30/2020 12:00:00 AM EDT act helio Lancets - eCW1 ([facility]) Blood Glucose Monitor System w/Device Blood Glucose Monitor System w/Device 07/30/2020 12:00:00 AM EDT active Blood Glucose Monitor System w/Device eCW1 ([facility]) FreeStyle Lite Test - FreeStyle Lite Test - 07/30/2020 12:00:00 AM EDT active FreeStyle Lite Test - eCW1 ( [facility]) Blood Glucose Test - Blood Glucose Test - 07/30/2020 12:00:00 AM EDT active Blood Glucose Test - eCW1 ([facility]) Lancets - Lancets - 07/30/2020 12:00:00 AM EDT act helio Lancets - eCW1 ([facility]) Blood Glucose Test - Blood Glucose Test - 07/30/2020 12:00:00 AM EDT active Blood Glucose Test - eCW1 ([facility]) Lancets - Lancets - 07/30/2020 12:00:00 AM EDT act helio Lancets - eCW1 ([facility]) Blood Glucose Test - Blood Glucose Test - 07/30/2020 12:00:00 AM EDT active Blood Glucose Test - eCW1 ([facility]) Lancets - Lancets - 07/30/2020 12:00:00 AM EDT act helio Lancets - eCW1 ([facility]) Blood Glucose Test - Blood Glucose Test - 07/30/2020 12:00:00 AM EDT active Blood Glucose Test - eCW1 ([facility]) Blood Glucose Monitor System w/Device Blood Glucose Monitor System w/Device 07/30/2020 12:00:00 AM EDT active Blood Glucose Monitor System w/Device eCW1 ([facility]) FreeStyle Lite Test - FreeStyle Lite Test - 07/30/2020 12:00:00 AM EDT active FreeStyle Lite Test - eCW1 ( [facility]) FreeStyle Lite Test - FreeStyle Lite Test - 07/30/2020 12:00:00 AM EDT active FreeStyle Lite Test - eCW1 ( [facility]) Blood Glucose Monitor System w/Device Blood Glucose Monitor System w/Device 07/30/2020 12:00:00 AM EDT active Blood Glucose Monitor System w/Device eCW1 ([facility]) Lancets - Lancets - 07/30/2020 12:00:00 AM EDT act helio Lancets - eCW1 ([facility]) FreeStyle Lite Test - FreeStyle Lite Test - 07/30/2020 12:00:00 AM EDT active FreeStyle Lite Test - eCW1 ( [facility]) FreeStyle Lite Test - FreeStyle Lite Test - 07/30/2020 12:00:00 AM EDT active FreeStyle Lite Test - eCW1 ( [facility]) Lancets - Lancets - 07/30/2020 12:00:00 AM EDT act helio Lancets - eCW1 ([facility]) FreeStyle Lite Test - FreeStyle Lite Test - 07/30/2020 12:00:00 AM EDT active FreeStyle Lite Test - eCW1 ( [facility]) Lancets - Lancets - 07/30/2020 12:00:00 AM EDT act helio Lancets - eCW1 ([facility]) FreeStyle Lite Test - FreeStyle Lite Test - 07/30/2020 12:00:00 AM EDT active FreeStyle Lite Test - eCW1 ( [facility]) FreeStyle Lite Test - FreeStyle Lite Test - 07/30/2020 12:00:00 AM EDT active FreeStyle Lite Test - eCW1 ( [facility]) Blood Glucose Test - Blood Glucose Test - 07/30/2020 12:00:00 AM EDT active Blood Glucose Test - eCW1 ([facility]) Blood Glucose Monitor System w/Device Blood Glucose Monitor System w/Device 07/30/2020 12:00:00 AM EDT active Blood Glucose Monitor System w/Device eCW1 ([facility]) Blood Glucose Monitor System w/Device Blood Glucose Monitor System w/Device 07/30/2020 12:00:00 AM EDT active Blood Glucose Monitor System w/Device eCW1 ([facility]) Blood Glucose Test - Blood Glucose Test - 07/30/2020 12:00:00 AM EDT active Blood Glucose Test - eCW1 ([facility]) 24 HR Metformin hydrochloride 500 MG Extended Release Oral T ablet METFORMIN HCL 07/29/2020 12:00:00 AM EDT tablet extended release 24 hr 60 TAKE 2 TABLETS BY MOUTH WITH EVENING MEAL TAKE 2 TABLETS BY MOUTH WITH EVENING MEAL SOLD: 09/28/2020 [facility] 24 HR Metformin hydrochloride 500 MG Extended Release Oral T ablet METFORMIN HCL 07/29/2020 12:00:00 AM EDT tablet extended release 24 hr 60 TAKE 2 TABLETS BY MOUTH WITH EVENING MEAL TAKE 2 TABLETS BY MOUTH WITH EVENING MEAL SOLD: 08/26/2020 [facility] Bisoprolol Fumarate 10 MG Oral Tablet Bisoprolol Fumarate 12:00:00 AM EDT ORAL completed MEDENT ([facility] Bisoprolol Fumarate 5 MG Oral Tablet Bisoprolol Fumarate 12:00:00 AM EDT ORAL active MEDENT ([facility]) 24 HR Metformin hydrochloride 500 MG Extended Release Oral T ablet METFORMIN HCL 07/29/2020 12:00:00 AM EDT tablet extended release 24 hr 60 TAKE 2 TABLETS BY MOUTH WITH EVENING MEAL TAKE 2 TABLETS BY MOUTH WITH EVENING MEAL SOLD: 10/28/2020 [facility] 500 mg 07/29/2020 12:00:00 AM EDT tablet extended release 24 hr 60 TAKE 2 TABLETS BY MOUTH WITH EVENING MEAL TAKE 2 TABLETS BY MOUTH WITH EVENING MEAL SOLD: 07/31/2020 [facility] 24 HR Metformin hydrochloride 500 MG Ext ended Release Oral Tablet MetFORMIN HCl ER 500 MG MetFORMIN HCl ER 500 MG 07/28/2020 12:00:00 AM EDT 2.0 {tablet_with_evening_meal} active MetFO RMIN HCl ER 500 MG eCW1 ([facility]) 24 HR Metformin hydrochloride 500 MG Ext ended Release Oral Tablet MetFORMIN HCl ER 500 MG MetFORMIN HCl ER 500 MG 07/28/2020 12:00:00 AM EDT 2.0 {tablet_with_evening_meal} active MetFO RMIN HCl ER 500 MG eCW1 ([facility]) 24 HR Metformin hydrochloride 500 MG Ext ended Release Oral Tablet MetFORMIN HCl ER 500 MG MetFORMIN HCl ER 500 MG 07/28/2020 12:00:00 AM EDT 2.0 {tablet_with_evening_meal} active MetFO RMIN HCl ER 500 MG eCW1 ([facility]) 24 HR Metformin hydrochloride 500 MG Ext ended Release Oral Tablet MetFORMIN HCl ER 500 MG MetFORMIN HCl ER 500 MG 07/28/2020 12:00:00 AM EDT 2.0 {tablet_with_evening_meal} active MetFO RMIN HCl ER 500 MG eCW1 ([facility]) 24 HR Metformin hydrochloride 500 MG Ext ended Release Oral Tablet metFORMIN HCl ER 500 MG metFORMIN HCl ER 500 MG 07/28/2020 12:00:00 AM EDT 2.0 {tablet_with_evening_meal} active metFO RMIN HCl ER 500 MG eCW1 ([facility]) 24 HR Metformin hydrochloride 500 MG Ext ended Release Oral Tablet MetFORMIN HCl ER 500 MG MetFORMIN HCl ER 500 MG 07/28/2020 12:00:00 AM EDT 2.0 {tablet_with_evening_meal} active MetFO RMIN HCl ER 500 MG eCW1 ([facility]) 24 HR Metformin hydrochloride 500 MG Ext ended Release Oral Tablet MetFORMIN HCl ER 500 MG MetFORMIN HCl ER 500 MG 07/28/2020 12:00:00 AM EDT 2.0 {tablet_with_evening_meal} active MetFO RMIN HCl ER 500 MG eCW1 ([facility]) montelukast 10 MG Oral Tablet MONTELUKAST SODIUM 07/27/2020 12:0 0:00 AM EDT tablet 30 TAKE ONE TABLET BY MOUTH EVERY D AY TAKE ONE TABLET BY MOUTH EVERY DAY SOLD: 07/28/2020 [facility] 15 mg 07/27/2020 12:00:00 AM EDT tablet 30 TAKE ONE TABLET BY MOUTH EVERY DAY TAKE ONE TABLET BY MOUTH EVERY DAY SOLD: 09/28/2020 [facility] 15 mg 07/27/2020 12:00:00 AM EDT tablet 30 TAKE ONE TABLET BY MOUTH EVERY DAY TAKE ONE TABLET BY MOUTH EVERY DAY SOLD: 08/26/2020 [facility] 15 mg 07/27/2020 12:00:00 AM EDT tablet 30 TAKE ONE TABLET BY MOUTH EVERY DAY TAKE ONE TABLET BY MOUTH EVERY DAY SOLD: 07/28/2020 [facility] montelukast 10 MG Oral Tablet MONTELUKAST SODIUM 07/27/2020 12:0 0:00 AM EDT tablet 30 TAKE ONE TABLET BY MOUTH EVERY D AY TAKE ONE TABLET BY MOUTH EVERY DAY SOLD: 11/27/2020 [facility] BLOOD SUGAR DIAGNOSTIC 07/27/2020 12:00:00 AM EDT strip 100 USE DIRECTED DAILY AND NEEDED USE DIRECTED DAILY AND NEEDED SOLD: 07/28/2020 [facility] montelukast 10 MG Oral Tablet MONTELUKAST SODIUM 07/27/2020 12:0 0:00 AM EDT tablet 30 TAKE ONE TABLET BY MOUTH EVERY D AY TAKE ONE TABLET BY MOUTH EVERY DAY SOLD: 10/28/2020 [facility] montelukast 10 MG Oral Tablet MONTELUKAST SODIUM 07/27/2020 12:0 0:00 AM EDT tablet 30 TAKE ONE TABLET BY MOUTH EVERY D AY TAKE ONE TABLET BY MOUTH EVERY DAY SOLD: 09/28/2020 [facility] montelukast 10 MG Oral Tablet MONTELUKAST SODIUM 07/27/2020 12:0 0:00 AM EDT tablet 30 TAKE ONE TABLET BY MOUTH EVERY D AY TAKE ONE TABLET BY MOUTH EVERY DAY SOLD: 08/26/2020 [facility] 0.4 mg 07/19/2020 12:00:00 AM EDT tablet, sublingual 25 ONE TABLET UNDER THE TONGUE EVERY 5 MINUTES FOR UP TO 3 DOSES FOR CHEST PAIN. ONE TABLET UNDER THE TONGUE EVERY 5 MINUTES FOR UP TO 3 DOSES FOR CHEST PAIN. SOLD: 07/19/2020 [facility] 50 mg 05/25/2020 12:00:00 AM EST tablet 60 TAKE ONE TABLET BY MOUTH TWICE A DAY TAKE ONE TABLET BY MOUTH TWICE A DAY SOLD: 08/26/2020 [facility] 50 mg 05/25/2020 12:00:00 AM EST tablet 60 TAKE ONE TABLET BY MOUTH TWICE A DAY TAKE ONE TABLET BY MOUTH TWICE A DAY SOLD: 09/28/2020 [facility] 50 mg 05/25/2020 12:00:00 AM EST tablet 60 TAKE ONE TABLET BY MOUTH TWICE A DAY TAKE ONE TABLET BY MOUTH TWICE A DAY SOLD: 06/30/2020 [facility] 50 mg 05/25/2020 12:00:00 AM EST tablet 60 TAKE ONE TABLET BY MOUTH TWICE A DAY TAKE ONE TABLET BY MOUTH TWICE A DAY SOLD: 07/28/2020 [facility] 50 mg 05/25/2020 12:00:00 AM EST tablet 60 TAKE ONE TABLET BY MOUTH TWICE A DAY TAKE ONE TABLET BY MOUTH TWICE A DAY SOLD: 05/31/2020 [facility] 50 mg 05/25/2020 12:00:00 AM EST tablet 60 TAKE ONE TABLET BY MOUTH TWICE A DAY TAKE ONE TABLET BY MOUTH TWICE A DAY SOLD: 10/28/2020 [facility] 50 mg 05/25/2020 12:00:00 AM EST tablet 60 TAKE ONE TABLET BY MOUTH TWICE A DAY TAKE ONE TABLET BY MOUTH TWICE A DAY SOLD: 11/27/2020 [facility] montelukast 10 MG Oral Tablet Montelukast Sodium 04/26/2020 12:00:00 AM EST ORAL active MEDENT ([facility] Dorothy De La Cruz 04/26/2020 12:00:00 AM EST ORAL act helio MEDPABLO ([facility] Metformin hydrochloride 850 MG Oral Tablet METFORMIN HCL 02/26/2020 12:00:00 AM EST tablet 30 TAKE ONE TABLET BY MOUTH BEAN RY WITH FOOD TAKE ONE TABLET BY MOUTH EVERY DAY WITH FOOD SOLD: 06/30/2020 [facility] 81 mg 02/26/2020 12:00:00 AM EST tablet,delayed release (DR/EC) 30 TAKE ONE TABLET BY MOUTH EVERY DAY TAKE ONE TABLET BY MOUTH EVERY DAY SOLD: 05/31/2020 [facility] 10 mg 02/26/2020 12:00:00 AM EST tablet 30 TAKE ONE TABLET BY MOUTH EVERY DAY TAKE ONE TABLET BY MOUTH EVERY DAY SOLD: 02/28/2020 [facility] Metformin hydrochloride 850 MG Oral Tablet METFORMIN HCL 02/26/2020 12:00:00 AM EST tablet 30 TAKE ONE TABLET BY MOUTH BEAN RY WITH FOOD TAKE ONE TABLET BY MOUTH EVERY DAY WITH FOOD SOLD: 07/28/2020 [facility] 81 mg 02/26/2020 12:00:00 AM EST tablet,delayed release (DR/EC) 30 TAKE ONE TABLET BY MOUTH EVERY DAY TAKE ONE TABLET BY MOUTH EVERY DAY SOLD: 04/29/2020 [facility] 10 mg 02/26/2020 12:00:00 AM EST tablet 30 TAKE ONE TABLET BY MOUTH EVERY DAY TAKE ONE TABLET BY MOUTH EVERY DAY SOLD: 03/30/2020 [facility] 10 mg 02/26/2020 12:00:00 AM EST tablet 30 TAKE ONE TABLET BY MOUTH EVERY DAY TAKE ONE TABLET BY MOUTH EVERY DAY SOLD: 07/28/2020 [facility] Metformin hydrochloride 850 MG Oral Tablet METFORMIN HCL 02/26/2020 12:00:00 AM EST tablet 90 TAKE ONE TABLET BY MOUTH BEAN RY WITH FOOD TAKE ONE TABLET BY MOUTH EVERY DAY WITH FOOD SOLD: 02/28/2020 [facility] 10 mg 02/26/2020 12:00:00 AM EST tablet 30 TAKE ONE TABLET BY MOUTH EVERY DAY TAKE ONE TABLET BY MOUTH EVERY DAY SOLD: 08/26/2020 [facility] 10 mg 02/26/2020 12:00:00 AM EST tablet 30 TAKE ONE TABLET BY MOUTH EVERY DAY TAKE ONE TABLET BY MOUTH EVERY DAY SOLD: 05/31/2020 [facility] 81 mg 02/26/2020 12:00:00 AM EST tablet,delayed release (DR/EC) 30 TAKE ONE TABLET BY MOUTH EVERY DAY TAKE ONE TABLET BY MOUTH EVERY DAY SOLD: 03/30/2020 [facility] 10 mg 02/26/2020 12:00:00 AM EST tablet 30 TAKE ONE TABLET BY MOUTH EVERY DAY TAKE ONE TABLET BY MOUTH EVERY DAY SOLD: 06/30/2020 [facility] 81 mg 02/26/2020 12:00:00 AM EST tablet,delayed release (DR/EC) 30 TAKE ONE TABLET BY MOUTH EVERY DAY TAKE ONE TABLET BY MOUTH EVERY DAY SOLD: 02/28/2020 [facility] 81 mg 02/26/2020 12:00:00 AM EST tablet,delayed release (DR/EC) 30 TAKE ONE TABLET BY MOUTH EVERY DAY TAKE ONE TABLET BY MOUTH EVERY DAY SOLD: 07/28/2020 [facility] 81 mg 02/26/2020 12:00:00 AM EST tablet,delayed release (DR/EC) 30 TAKE ONE TABLET BY MOUTH EVERY DAY TAKE ONE TABLET BY MOUTH EVERY DAY SOLD: 06/30/2020 [facility] Metformin hydrochloride 850 MG Oral Tablet METFORMIN HCL 02/26/2020 12:00:00 AM EST tablet 30 TAKE ONE TABLET BY MOUTH BEAN RY DAY WITH FOOD TAKE ONE TABLET BY MOUTH EVERY DAY WITH FOOD SOLD: 05/31/2020 [facility] atorvastatin 80 MG Oral Tablet ATORVASTATIN CALCIUM 02/25/2020 1 2:00:00 AM EST tablet 90 TAKE ONE TABLET BY MOUTH EVERY D AY TAKE ONE TABLET BY MOUTH EVERY DAY SOLD: 02/28/2020 [facility] 80 mg 02/25/2020 12:00:00 AM EST tablet 30 TAKE ONE TABLET BY MOUTH EVERY DAY TAKE ONE TABLET BY MOUTH EVERY DAY SOLD: 06/30/2020 [facility] atorvastatin 80 MG Oral Tablet ATORVASTATIN CALCIUM 02/25/2020 1 2:00:00 AM EST tablet 30 TAKE ONE TABLET BY MOUTH EVERY D AY TAKE ONE TABLET BY MOUTH EVERY DAY SOLD: 05/31/2020 [facility] 80 mg 02/25/2020 12:00:00 AM EST tablet 30 TAKE ONE TABLET BY MOUTH EVERY DAY TAKE ONE TABLET BY MOUTH EVERY DAY SOLD: 07/28/2020 [facility] Steglatro 15 MG Steglatro 15 MG 02/20/2020 12:00:00 AM EST 1.0 { tablet} active Steglatro 15 MG eCW1 ([facility]) Steglatro 15 MG Steglatro 15 MG 02/20/2020 12:00:00 AM EST 1.0 { tablet} active Steglatro 15 MG eCW1 ([facility]) montelukast 10 MG Oral Tablet MONTELUKAST SODIUM 02/13/2020 12:0 0:00 AM EST tablet 30 TAKE ONE TABLET BY MOUTH EVERY D AY TAKE ONE TABLET BY MOUTH EVERY DAY SOLD: 04/29/2020 [facility] montelukast 10 MG Oral Tablet MONTELUKAST SODIUM 02/13/2020 12:0 0:00 AM EST tablet 30 TAKE ONE TABLET BY MOUTH EVERY D AY TAKE ONE TABLET BY MOUTH EVERY DAY SOLD: 05/31/2020 [facility] montelukast 10 MG Oral Tablet MONTELUKAST SODIUM 02/13/2020 12:0 0:00 AM EST tablet 30 TAKE ONE TABLET BY MOUTH EVERY D AY TAKE ONE TABLET BY MOUTH EVERY DAY SOLD: 06/30/2020 [facility] montelukast 10 MG Oral Tablet MONTELUKAST SODIUM 02/13/2020 12:0 0:00 AM EST tablet 30 TAKE ONE TABLET BY MOUTH EVERY D AY TAKE ONE TABLET BY MOUTH EVERY DAY SOLD: 02/14/2020 [facility] montelukast 10 MG Oral Tablet MONTELUKAST SODIUM 02/13/2020 12:0 0:00 AM EST tablet 30 TAKE ONE TABLET BY MOUTH EVERY D AY TAKE ONE TABLET BY MOUTH EVERY DAY SOLD: 03/30/2020 [facility] montelukast 10 MG Oral Tablet MONTELUKAST SODIUM 02/13/2020 12:0 0:00 AM EST tablet 15 TAKE ONE TABLET BY MOUTH EVERY D AY TAKE ONE TABLET BY MOUTH EVERY DAY SOLD: 03/14/2020 [facility] montelukast 10 MG Oral Tablet [Singulair] Singulair 10 MG Si ngulair 10 MG 02/12/2020 12:00:00 AM EST 1.0 {tablet} active Singulair 10 MG eCW1 ([facility]) montelukast 10 MG Oral Tablet [Singulair] Singulair 10 MG Si ngulair 10 MG 02/12/2020 12:00:00 AM EST 1.0 {tablet} active Singulair 10 MG eCW1 ([facility]) 15 mg 01/29/2020 12:00:00 AM EDT tablet 30 TAKE ONE TABLET BY MOUTH EVERY DAY TAKE ONE TABLET BY MOUTH EVERY DAY SOLD: 01/29/2020 [facility] 15 mg 01/29/2020 12:00:00 AM EDT tablet 30 TAKE ONE TABLET BY MOUTH EVERY DAY TAKE ONE TABLET BY MOUTH EVERY DAY SOLD: 02/28/2020 [facility] 15 mg 01/29/2020 12:00:00 AM EDT tablet 30 TAKE ONE TABLET BY MOUTH EVERY DAY TAKE ONE TABLET BY MOUTH EVERY DAY SOLD: 03/30/2020 [facility] 15 mg 01/29/2020 12:00:00 AM EDT tablet 30 TAKE ONE TABLET BY MOUTH EVERY DAY TAKE ONE TABLET BY MOUTH EVERY DAY SOLD: 04/29/2020 [facility] 15 mg 01/29/2020 12:00:00 AM EDT tablet 30 TAKE ONE TABLET BY MOUTH EVERY DAY TAKE ONE TABLET BY MOUTH EVERY DAY SOLD: 05/31/2020 [facility] 15 mg 01/29/2020 12:00:00 AM EDT tablet 30 TAKE ONE TABLET BY MOUTH EVERY DAY TAKE ONE TABLET BY MOUTH EVERY DAY SOLD: 06/30/2020 [facility] Steglatro 15 MG Steglatro 15 MG 01/28/2020 12:00:00 AM EDT 1.0 { tablet} active Steglatro 15 MG eCW1 ([facility]) Steglatro 15 MG Steglatro 15 MG 01/28/2020 12:00:00 AM EDT 1.0 { tablet} active Steglatro 15 MG eCW1 ([facility]) Steglatro 15 MG Steglatro 15 MG 01/28/2020 12:00:00 AM EDT 1.0 { tablet} active Steglatro 15 MG eCW1 ([facility]) Steglatro 15 MG Steglatro 15 MG 01/28/2020 12:00:00 AM EDT 1.0 { tablet} active Steglatro 15 MG eCW1 ([facility]) montelukast 10 MG Oral Tablet MONTELUKAST SODIUM 01/15/2020 12:0 0:00 AM EDT tablet 30 TAKE ONE TABLET BY MOUTH EVERY D AY TAKE ONE TABLET BY MOUTH EVERY DAY SOLD: 01/15/2020 [facility] 90 mcg/actuation 01/15/2020 12:00:00 AM EDT HFA aerosol inha ler 18 INHALE 2 PUFFS BY MOUTH EVERY 4 HOURS NEEDED INHALE 2 PUFFS BY MOUTH EVERY 4 HOURS NEEDED SOLD: 01/15/2020 [facility] montelukast 10 MG Oral Tablet [Singulair] Singulair 10 MG Si ngulair 10 MG 01/15/2020 12:00:00 AM EDT 1.0 {tablet} active Singulair 10 MG eCW1 ([facility]) OneTouch Ultra II Test Strips UNK 01/15/2020 12:00:00 AM EDT active OneTouch Ultra II Test Strips eCW1 ([facility]) OneTouch Ultra II Test Strips UNK 01/15/2020 12:00:00 AM EDT active OneTouch Ultra II Test Strips eCW1 ([facility]) OneTouch Ultra II Test Strips UNK 01/15/2020 12:00:00 AM EDT active OneTouch Ultra II Test Strips eCW1 ([facility]) OneTouch Ultra II Test Strips UNK 01/15/2020 12:00:00 AM EDT active OneTouch Ultra II Test Strips eCW1 ([facility]) montelukast 10 MG Oral Tablet [Singulair] Singulair 10 MG Si ngulair 10 MG 01/15/2020 12:00:00 AM EDT 1.0 {tablet} active Singulair 10 MG eCW1 ([facility]) 90 mcg/actuation 01/15/2020 12:00:00 AM EDT HFA aerosol inha ler 18 INHALE 2 PUFFS BY MOUTH EVERY 4 HOURS NEEDED INHALE 2 PUFFS BY MOUTH EVERY 4 HOURS NEEDED SOLD: 09/07/2020 [facility] empagliflozin 10 MG Oral Tablet [Jardiance] Jardiance 10 MG Jardiance 10 MG 01/15/2020 12:00:00 AM EDT 1.0 {tablet} active Jardiance 10 MG eCW1 ([facility]) OneTouch Ultra II Test Strips UNK 01/15/2020 12:00:00 AM EDT active OneTouch Ultra II Test Strips eCW1 ([facility]) empagliflozin 10 MG Oral Tablet [Jardiance] Jardiance 10 MG Jardiance 10 MG 01/15/2020 12:00:00 AM EDT 1.0 {tablet} active Jardiance 10 MG eCW1 ([facility]) OneTouch Ultra II Test Strips UNK 01/15/2020 12:00:00 AM EDT active OneTouch Ultra II Test Strips eCW1 ([facility]) BLOOD SUGAR DIAGNOSTIC 01/15/2020 12:00:00 AM EDT strip 100 ONCE DAILY AND NEEDED ONCE DAILY AND NEEDED SOLD: 01/15/2020 [facility] carvedilol 25 MG Oral Tablet CARVEDILOL 12/02/2019 12:00:00 AM EDT tab let 60 TAKE ONE TABLET BY MOUTH TWICE A DAY TAKE ONE TABLET BY MOUTH TWICE A DAY SOLD: 01/31/2020 [facility] carvedilol 25 MG Oral Tablet CARVEDILOL 12/02/2019 12:00:00 AM EDT tab let 60 TAKE ONE TABLET BY MOUTH TWICE A DAY TAKE ONE TABLET BY MOUTH TWICE A DAY SOLD: 07/28/2020 [facility] carvedilol 25 MG Oral Tablet CARVEDILOL 12/02/2019 12:00:00 AM EDT tab let 60 TAKE ONE TABLET BY MOUTH TWICE A DAY TAKE ONE TABLET BY MOUTH TWICE A DAY SOLD: 05/31/2020 [facility] 10 mg 12/02/2019 12:00:00 AM EDT tablet 30 TAKE ONE TABLET BY MOUTH EVERY DAY FOR BLOOD PRESSURE GREATER THAN 150/90 [facility] TAKE ONE TABLET BY MOUTH EVERY DAY FOR BLOOD PRESSURE GREATER THAN 150/90 [facility] SOLD: 02/28/2020 [facility] carvedilol 25 MG Oral Tablet CARVEDILOL 12/02/2019 12:00:00 AM EDT tab let 60 TAKE ONE TABLET BY MOUTH TWICE A DAY TAKE ONE TABLET BY MOUTH TWICE A DAY SOLD: 06/30/2020 [facility] 10 mg 12/02/2019 12:00:00 AM EDT tablet 30 TAKE ONE TABLET BY MOUTH EVERY DAY FOR BLOOD PRESSURE GREATER THAN 150/90 [facility] TAKE ONE TABLET BY MOUTH EVERY DAY FOR BLOOD PRESSURE GREATER THAN 150/90 [facility] SOLD: 03/30/2020 [facility] 10 mg 12/02/2019 12:00:00 AM EDT tablet 30 TAKE ONE TABLET BY MOUTH EVERY DAY FOR BLOOD PRESSURE GREATER THAN 150/90 [facility] TAKE ONE TABLET BY MOUTH EVERY DAY FOR BLOOD PRESSURE GREATER THAN 150/90 [facility] SOLD: 06/30/2020 [facility] 10 mg 12/02/2019 12:00:00 AM EDT tablet 30 TAKE ONE TABLET BY MOUTH EVERY DAY FOR BLOOD PRESSURE GREATER THAN 150/90 [facility] TAKE ONE TABLET BY MOUTH EVERY DAY FOR BLOOD PRESSURE GREATER THAN 150/90 [facility] SOLD: 01/04/2020 [facility] 10 mg 12/02/2019 12:00:00 AM EDT tablet 30 TAKE ONE TABLET BY MOUTH EVERY DAY FOR BLOOD PRESSURE GREATER THAN 150/90 [facility] TAKE ONE TABLET BY MOUTH EVERY DAY FOR BLOOD PRESSURE GREATER THAN 150/90 [facility] SOLD: 07/28/2020 [facility] carvedilol 25 MG Oral Tablet CARVEDILOL 12/02/2019 12:00:00 AM EDT tab let 60 TAKE ONE TABLET BY MOUTH TWICE A DAY TAKE ONE TABLET BY MOUTH TWICE A DAY SOLD: 04/29/2020 [facility] 10 mg 12/02/2019 12:00:00 AM EDT tablet 30 TAKE ONE TABLET BY MOUTH EVERY DAY FOR BLOOD PRESSURE GREATER THAN 150/90 [facility] TAKE ONE TABLET BY MOUTH EVERY DAY FOR BLOOD PRESSURE GREATER THAN 150/90 [facility] SOLD: 08/26/2020 [facility] 10 mg 12/02/2019 12:00:00 AM EDT tablet 30 TAKE ONE TABLET BY MOUTH EVERY DAY FOR BLOOD PRESSURE GREATER THAN 150/90 [facility] TAKE ONE TABLET BY MOUTH EVERY DAY FOR BLOOD PRESSURE GREATER THAN 150/90 [facility] SOLD: 01/31/2020 [facility] 10 mg 12/02/2019 12:00:00 AM EDT tablet 30 TAKE ONE TABLET BY MOUTH EVERY DAY FOR BLOOD PRESSURE GREATER THAN 150/90 [facility] TAKE ONE TABLET BY MOUTH EVERY DAY FOR BLOOD PRESSURE GREATER THAN 150/90 [facility] SOLD: 09/28/2020 [facility] carvedilol 25 MG Oral Tablet CARVEDILOL 12/02/2019 12:00:00 AM EDT tab let 60 TAKE ONE TABLET BY MOUTH TWICE A DAY TAKE ONE TABLET BY MOUTH TWICE A DAY SOLD: 01/04/2020 [facility] carvedilol 25 MG Oral Tablet CARVEDILOL 12/02/2019 12:00:00 AM EDT tab let 60 TAKE ONE TABLET BY MOUTH TWICE A DAY TAKE ONE TABLET BY MOUTH TWICE A DAY SOLD: 03/30/2020 [facility] 10 mg 12/02/2019 12:00:00 AM EDT tablet 30 TAKE ONE TABLET BY MOUTH EVERY DAY FOR BLOOD PRESSURE GREATER THAN 150/90 [facility] TAKE ONE TABLET BY MOUTH EVERY DAY FOR BLOOD PRESSURE GREATER THAN 150/90 [facility] SOLD: 04/29/2020 [facility] carvedilol 25 MG Oral Tablet CARVEDILOL 12/02/2019 12:00:00 AM EDT tab let 60 TAKE ONE TABLET BY MOUTH TWICE A DAY TAKE ONE TABLET BY MOUTH TWICE A DAY SOLD: 02/28/2020 [facility] 10 mg 12/02/2019 12:00:00 AM EDT tablet 30 TAKE ONE TABLET BY MOUTH EVERY DAY FOR BLOOD PRESSURE GREATER THAN 150/90 [facility] TAKE ONE TABLET BY MOUTH EVERY DAY FOR BLOOD PRESSURE GREATER THAN 150/90 [facility] SOLD: 10/28/2020 [facility] 10 mg 12/02/2019 12:00:00 AM EDT tablet 30 TAKE ONE TABLET BY MOUTH EVERY DAY FOR BLOOD PRESSURE GREATER THAN 150/90 [facility] TAKE ONE TABLET BY MOUTH EVERY DAY FOR BLOOD PRESSURE GREATER THAN 150/90 [facility] SOLD: 05/31/2020 [facility] 25 mg 10/08/2019 12:00:00 AM EDT tablet 15 TAKE ONE HALF TABLET BY MOUTH EVERY DAY TAKE ONE HALF TABLET BY MOUTH EVERY DAY SOLD: 05/31/2020 [facility] 25 mg 10/08/2019 12:00:00 AM EDT tablet 15 TAKE ONE HALF TABLET BY MOUTH EVERY DAY TAKE ONE HALF TABLET BY MOUTH EVERY DAY SOLD: 06/30/2020 [facility] 25 mg 10/08/2019 12:00:00 AM EDT tablet 15 TAKE ONE HALF TABLET BY MOUTH EVERY DAY TAKE ONE HALF TABLET BY MOUTH EVERY DAY SOLD: 04/29/2020 [facility] 25 mg 10/08/2019 12:00:00 AM EDT tablet 15 TAKE ONE HALF TABLET BY MOUTH EVERY DAY TAKE ONE HALF TABLET BY MOUTH EVERY DAY SOLD: 03/30/2020 [facility] 25 mg 10/08/2019 12:00:00 AM EDT tablet 15 TAKE ONE HALF TABLET BY MOUTH EVERY DAY TAKE ONE HALF TABLET BY MOUTH EVERY DAY SOLD: 01/04/2020 [facility] 25 mg 10/08/2019 12:00:00 AM EDT tablet 15 TAKE ONE HALF TABLET BY MOUTH EVERY DAY TAKE ONE HALF TABLET BY MOUTH EVERY DAY SOLD: 07/28/2020 [facility] 25 mg 10/08/2019 12:00:00 AM EDT tablet 15 TAKE ONE HALF TABLET BY MOUTH EVERY DAY TAKE ONE HALF TABLET BY MOUTH EVERY DAY SOLD: 01/31/2020 [facility] 25 mg 10/08/2019 12:00:00 AM EDT tablet 15 TAKE ONE HALF TABLET BY MOUTH EVERY DAY TAKE ONE HALF TABLET BY MOUTH EVERY DAY SOLD: 02/28/2020 [facility] 25 mg 10/08/2019 12:00:00 AM EDT tablet 15 TAKE ONE HALF TABLET BY MOUTH EVERY DAY TAKE ONE HALF TABLET BY MOUTH EVERY DAY SOLD: 08/26/2020 [facility] 81 mg 09/04/2019 12:00:00 AM EDT tablet,delayed release (DR/EC) 30 TAKE ONE TABLET BY MOUTH EVERY DAY TAKE ONE TABLET BY MOUTH EVERY DAY SOLD: 01/04/2020 [facility] Metformin hydrochloride 850 MG Oral Tablet METFORMIN HCL 09/04/2019 12:00:00 AM EDT tablet 30 TAKE ONE TABLET BY MOUTH BEAN WITH A MEAL TAKE ONE TABLET BY MOUTH EVERY DAY WITH A MEAL SOLD: 01/31/2020 [facility] 10 mg 09/04/2019 12:00:00 AM EDT tablet 30 TAKE ONE TABLET BY MOUTH EVERY DAY TAKE ONE TABLET BY MOUTH EVERY DAY SOLD: 01/04/2020 [facility] 81 mg 09/04/2019 12:00:00 AM EDT tablet,delayed release (DR/EC) 30 TAKE ONE TABLET BY MOUTH EVERY DAY TAKE ONE TABLET BY MOUTH EVERY DAY SOLD: 01/31/2020 [facility] 10 mg 09/04/2019 12:00:00 AM EDT tablet 30 TAKE ONE TABLET BY MOUTH EVERY DAY TAKE ONE TABLET BY MOUTH EVERY DAY SOLD: 01/31/2020 [facility] Metformin hydrochloride 850 MG Oral Tablet METFORMIN HCL 09/04/2019 12:00:00 AM EDT tablet 30 TAKE ONE TABLET BY MOUTH WITH A MEAL TAKE ONE TABLET BY MOUTH EVERY DAY WITH A MEAL SOLD: 01/04/2020 [facility] 80 mg 09/03/2019 12:00:00 AM EDT tablet 30 TAKE ONE TABLET BY MOUTH EVERY DAY TAKE ONE TABLET BY MOUTH EVERY DAY SOLD: 01/04/2020 [facility] 80 mg 09/03/2019 12:00:00 AM EDT tablet 30 TAKE ONE TABLET BY MOUTH EVERY DAY TAKE ONE TABLET BY MOUTH EVERY DAY SOLD: 01/31/2020 [facility] 50 mg 06/03/2019 12:00:00 AM EST tablet 60 TAKE ONE TABLET BY MOUTH TWICE A DAY TAKE ONE TABLET BY MOUTH TWICE A DAY SOLD: 03/30/2020 [facility] 50 mg 06/03/2019 12:00:00 AM EST tablet 60 TAKE ONE TABLET BY MOUTH TWICE A DAY TAKE ONE TABLET BY MOUTH TWICE A DAY SOLD: 02/28/2020 [facility] 50 mg 06/03/2019 12:00:00 AM EST tablet 60 TAKE ONE TABLET BY MOUTH TWICE A DAY TAKE ONE TABLET BY MOUTH TWICE A DAY SOLD: 01/04/2020 [facility] 50 mg 06/03/2019 12:00:00 AM EST tablet 60 TAKE ONE TABLET BY MOUTH TWICE A DAY TAKE ONE TABLET BY MOUTH TWICE A DAY SOLD: 04/29/2020 [facility] 50 mg 06/03/2019 12:00:00 AM EST tablet 60 TAKE ONE TABLET BY MOUTH TWICE A DAY TAKE ONE TABLET BY MOUTH TWICE A DAY SOLD: 01/31/2020 [facility] Losartan Potassium 50 MG Oral Tablet losartan (COZAAR) 50 MG tablet losartan (COZAAR) 50 MG tablet 50 mg Oral aborted Take 50 mg by mouth 2 (two) times a day [facility] Atenolol 50 MG Oral Tablet atenolol (TENORMIN) 50 MG t ablet atenolol (TENORMIN) 50 MG tablet 50 mg Oral aborted Ron e 50 mg by mouth 2 (two) times a day [facility] Metformin hydrochloride 850 MG Oral Tablet metFORMIN ( GLUCOPHAGE) 850 MG tablet metFORMIN (GLUCOPHAGE) 850 MG tablet 850 mg Oral a borted Take 850 mg by mouth daily with breakfast [facility] PARoxetine (PAXIL) 20 MG tablet [id number] 20 mg Oral aborted Take 20 mg by mouth every morning [facility] Amlodipine 10 MG Oral Tablet amLODIPine (NORVASC) 10 M G tablet amLODIPine (NORVASC) 10 MG tablet 10 mg Oral aborted T charla 10 mg by mouth daily [facility] clopidogrel 75 MG Oral Tablet clopidogrel (PLAVIX) 75 MG tablet clopidogrel (PLAVIX) 75 MG tablet 75 mg Oral aborted Ta ke 75 mg by mouth daily [facility] Ibuprofen 200 MG Oral Tablet ibuprofen (ADVIL,MOTRIN) 200 MG tablet ibuprofen (ADVIL,MOTRIN) 200 MG tablet 200 mg Oral aborted Take 200 mg by mouth every 6 (six) hours as needed for pain [facility] Chlorthalidone 25 MG Oral Tablet chlorthalidone (HYGRO TEN) 25 MG tablet chlorthalidone (HYGROTEN) 25 MG tablet 12.5 mg Oral aborted Take 12.5 mg by mouth daily [facility] Insurance Providers Payer name Policy type / Coverage type Policy ID Covered republican ID Covered republican's relationship to alvarez Policy Alvarez Plan [facility] [id number] Self 1 [id number] [facility] [id number] Self 1 [id number] [facility] [id number] Self [facility] MEDICAID [id number] [facility] MEDICAID [id number] Ankita [id number] ANSI-Medicaid [id number] ANSI-Medicaid [id number] [facility] Health Maintenance Organization (O) [id number] Self [id number] [facility] Health Maintenance Organization (HMO) [id number] Self [facility] O [id number] S [id number] SELF PAY UNAVAILABLE UNAVAILA BLE [employer] AMERICHOICE XIX O [id number] 18 [id number] BLUE CROSS BLUE SHIELD-CLINIC [id number] [facility] PL[facility] [id number] SP [id number] MEDICAID - CLINIC [id number] [id number] [facility] COMMUNITY PLAN [facility] [id number] SP [id number] [facility] O [id number] S [id number] ANSI-Medicaid [id number] [facility] [id number] Self [id number] Problems, Conditions, and Diagnoses Code Display Name Description Problem Type Effective Dates Data Source(s) I25.5 Ischemic cardiomyopathy Ischemic cardiomyopathy Diagno [facility] 12/13/2020 12:38:00 PM EDT [facility] I47.2 Ventricular tachycardia Ventricular tachycardia Diagno [facility] 12/13/2020 12:38:00 PM EDT [facility] I24.9 Acute ischemic heart disease, unspecifie d Acute ischemic heart disease, unspecifie Diagnosis 12/13/2020 12:38:00 PM EDT [facility] N17.9 Acute kidney failure, unspecified Acute kidney f ailure, unspecified Diagnosis 12/13/2020 12:38:00 PM EDT [facility] R77.8 Other specified abnormalities of plasma proteins Other specified abnormalities of plasma Diagnosis 12/13/2020 12:38:00 PM EDT [facility] I21.4 Non-ST elevation (NSTEMI) myocardial inf arction Non-ST elevation (NSTEMI) myocardial inf Diagnosis 12/13/2020 12:38:00 PM EDT [facility] I47.2 Paroxysmal ventricular tachycardia Paroxysmal ve ntricular tachycardia Problem 12/23/2020 12:00:00 AM EDT MEDPABLO ([facility]) Z95.810 Automatic implantable cardiac defibrilla tor in situ Automatic implantable cardiac defibrillator in situ Problem 12/23/2020 12:00:0 0 AM EDT HIMA ([facility]) I25.5 Ischemic cardiomyopathy Ischemic cardiomyopathy [id number] 12/15/2020 12:00:00 AM EDT [facility] I24.9 Acute coronary syndrome Acute coronary syndrome [id number] 12/15/2020 12:00:00 AM EDT [facility] I45.10 RBBB RBBB [id number] 12/13/2020 12:00:00 AM ED T [facility] R79.89 Elevated LFTs Elevated LFTs [id number] 12/13/2020 12:00:00 AM EDT [facility] N17.9 JOHN (acute kidney injury) JOHN (acute kidney injury) [id number] 12/13/2020 12:00:00 AM EDT [facility] I25.110 Coronary artery disease invo lving [place] coronary artery of [place] heart with unstable angina pectoris Coronary artery disease involving [place] coronary artery of [place] heart with unstable angina pectoris [id number] 12/13/2020 12:00:00 AM EDT [facility] R77.8 Elevated troponin Elevated troponin [id number] 12/13/2020 12:00:00 AM EDT [facility] Z72.0 Tobacco use Tobacco use [id number] 12/13/2020 12:00:00 AM EDT [facility] I10 HTN (hypertension) HTN (hypertension) [id number] 12:00:00 AM EDT [facility] E11.9 DM2 (diabetes mellitus, type 2) DM2 (diabetes mellitus , type 2) [id number] 12/13/2020 12:00:00 AM EDT [facility] J44.9 COPD (chronic obstructive pulmonary dise ase) COPD (chronic obstructive pulmonary disease) [id number] 12/13/2020 12:00:00 AM EDT [facility] I47.2 Sustained VT (ventricular tachycardia) S ustained VT (ventricular tachycardia) [id number] 12/13/2020 12:00:00 AM EDT [facility] E78.00 [id number] Pure hypercholesterolemia Problem 07/23/2020 12:00:00 AM EDT eCW1 ([facility]) I25.10 [id number] Coronary artery dise ase involving [place] coronary artery of [place] heart without angina pectoris Problem 01/15/2020 12:00:00 AM EDT eCW1 ([facility]) J30.89 [id number] Non-seasonal allergic rhinitis, unspecifi ed trigger Problem 01/15/2020 12:00:00 AM EDT eCW1 ([facility]) Surgeries/Procedures Procedure Description Date Indications Data Source(s) Imm: Flublok Quadrivalent 18 years & older 0.5mL IM Influenz a 01/19/2021 12:00:00 AM EDT eCW1 ([facility]) INTERROGATION EVAL F2F 1/DUAL/[employer] LE[employer] CVDFB 01/07/20 12:00:00 AM EDT MEDENT ([facility]) ECG ROUTINE ECG W/LEAST 12 LDS W/I&R 12/23/2020 12:00: 00 AM EDT MEDENT ([facility]) OFFICE OUTPATIENT VISIT 25 MINUTES 12/23/2020 12:00:00 AM EDT [facility]ENT ([facility]) XR CHEST PORTABLE <td>XR CHEST PORTABLE</td><t d>STAT</td><td>12/17/2020 6:56 PM EDT</td><td></td><td> </td> 12/17/2020 06:56:35 PM EDT [facility] GLUC BLD GLUC MNTR DEV CLEARED FDA SPEC HOME USE <td>P OCT GLUCOSE</td><td>Routine</td><td>12/17/2020 6:51 PM EDT</td><td></td><td> </td> 12/17/2020 06:51:00 PM EDT [facility] EP STUDY <td>EP STUDY</td><td>Routine </td><td>12/17/2020 5:32 PM EDT</td><td> Sustained VT (ventricular tachycardia)</td><td> </td> 12/17/2020 05:32:55 PM EDT Sustained VT (ventricular tachycardia) [facility] Sustained VT (ventricular tachycardia) GLUC BLD GLUC MNTR DEV CLEARED FDA SPEC HOME USE <td>P OCT GLUCOSE</td><td>Routine</td><td>12/17/2020 11:47 AM EDT</td><td></td><td> </td> 12/17/2020 11:47:00 AM EDT [facility] GLUC BLD GLUC MNTR DEV CLEARED FDA SPEC HOME USE <td>P OCT GLUCOSE</td><td>Routine</td><td>12/17/2020 9:12 AM EDT</td><td></td><td> </td> 12/17/2020 09:12:00 AM EDT [facility] THROMBOPLASTIN TIME PARTIAL PLASMA/WHOLE BLOOD <td>APTT</td><td>Routine</td><td>12/17/2020 8:00 AM EDT</td><td></td><td> </td> 12/17/2020 08:00:00 AM EDT [facility] Hemodialysis (procedure) <td>HEMODIALYSIS INPATIENT [place]</td><td>Routine</td><td>12/17/2020 12:07 AM EDT</td><td></td><td></td> 12/17/2020 12:07:30 AM EDT [facility] THROMBOPLASTIN TIME PARTIAL PLASMA/WHOLE BLOOD <td>APTT</td><td>Routine</td><td>12/17/2020 12:07 AM EDT</td><td></td><td> </td> 12/17/2020 12:07:00 AM EDT [facility] GLUC BLD GLUC MNTR DEV CLEARED FDA SPEC HOME USE <td>P OCT GLUCOSE</td><td>Routine</td><td>12/16/2020 5:55 PM EDT</td><td></td><td> </td> 12/16/2020 05:55:00 PM EDT [facility] THROMBOPLASTIN TIME PARTIAL PLASMA/WHOLE BLOOD <td>APTT</td><td>Routine</td><td>12/16/2020 4:38 PM EDT</td><td></td><td> </td> 12/16/2020 04:38:00 PM EDT [facility] GLUC BLD GLUC MNTR DEV CLEARED FDA SPEC HOME USE <td>P OCT GLUCOSE</td><td>Routine</td><td>12/16/2020 12:02 PM EDT</td><td></td><td> </td> 12/16/2020 12:02:00 PM EDT [facility] KU2 PANEL <td>KU2 PANEL</td><td>STAT</ td><td>12/16/2020 7:44 AM EDT</td><td></td><td> </td> 12/16/2020 07:44:00 AM EDT [facility] BLOOD COUNT COMPLETE AUTOMATED <td>CBC</td><td>STAT</t d><td>12/16/2020 7:44 AM EDT</td><td></td><td> </td> 12/16/2020 07:44:00 AM EDT [facility] PHOSPHORUS INORGANIC <td>PHOSPHORUS</td><td>STAT< /td><td>12/16/2020 7:44 AM EDT</td><td></td><td> </td> 12/16/2020 07:44:00 AM EDT [facility] THROMBOPLASTIN TIME PARTIAL PLASMA/WHOLE BLOOD <td>APTT</td><td>STAT</td><td>12/16/2020 6:28 AM EDT</td><td></td><td> </td> 12/16/2020 06:28:00 AM EDT [facility] THROMBOPLASTIN TIME PARTIAL PLASMA/WHOLE BLOOD <td>APTT</td><td>STAT</td><td>12/15/2020 7:43 PM EDT</td><td></td><td> </td> 12/15/2020 07:43:00 PM EDT [facility] GLUC BLD GLUC MNTR DEV CLEARED FDA SPEC HOME USE <td>P OCT GLUCOSE</td><td>Routine</td><td>12/15/2020 6:25 PM EDT</td><td></td><td> </td> 12/15/2020 06:25:00 PM EDT [facility] CARDIAC CATHETERIZATION <td>CARDIAC CATHETERIZATION</td><td>Routine</td><td>12/15/2020 5:25 PM EDT</td><td> Acute coronary syndrome Sustained VT (ventricular tachycardia) Ischemic cardiomyopathy</td><td> </td> 12/15/2020 05:25:36 PM EDT Ischemic cardiomyopathySustained VT (lainey tricular tachycardia)Acute coronary syndrome [facility] Ischemic cardiomyopathy Sustained VT (ventricular tachycardia) Acute coronary syndrome GLUC BLD GLUC MNTR DEV CLEARED FDA SPEC HOME USE <td>P OCT GLUCOSE</td><td>Routine</td><td>12/15/2020 1:35 PM EDT</td><td></td><td> </td> 12/15/2020 01:35:00 PM EDT [facility] GLUC BLD GLUC MNTR DEV CLEARED FDA SPEC HOME USE <td>P OCT GLUCOSE</td><td>Routine</td><td>12/15/2020 8:47 AM EDT</td><td></td><td> </td> 12/15/2020 08:47:00 AM EDT [facility] KU2 PANEL <td>KU2 PANEL</td><td>STAT</ td><td>12/15/2020 8:15 AM EDT</td><td></td><td> </td> 12/15/2020 08:15:00 AM EDT [facility] BLOOD COUNT COMPLETE AUTOMATED <td>CBC</td><td>STAT</t d><td>12/15/2020 8:15 AM EDT</td><td></td><td> </td> 12/15/2020 08:15:00 AM EDT [facility] PHOSPHORUS INORGANIC <td>PHOSPHORUS</td><td>STAT< /td><td>12/15/2020 8:15 AM EDT</td><td></td><td> </td> 12/15/2020 08:15:00 AM EDT [facility] Hemodialysis (procedure) <td>HEMODIALYSIS INPATIENT TX</td><td>Routine</td><td>12/15/2020 7:08 AM EDT</td><td></td><td></td> 12/15/2020 07:08:46 AM EDT [facility] Hemodialysis (procedure) <td>HEMODIALYSIS INPATIENT TX</td><td>Routine</td><td>12/15/2020 7:08 AM EDT</td><td></td><td></td> 12/15/2020 07:08:46 AM EDT [facility] Hemodialysis (procedure) <td>HEMODIALYSIS INPATIENT TX</td><td>Routine</td><td>12/15/2020 7:08 AM EDT</td><td></td><td></td> 12/15/2020 07:08:46 AM EDT [facility] BILIRUBIN UNCONJ (INDIRECT) <td>BILIRUBIN UNCONJ (INDIRECT)</td><td>STAT</td><td>12/15/2020 5:01 AM EDT</td><td></td><td> </td> 12/15/2020 05:01:00 AM EDT [facility] THROMBOPLASTIN TIME PARTIAL PLASMA/WHOLE BLOOD <td>APTT</td><td>STAT</td><td>12/15/2020 5:01 AM EDT</td><td></td><td> </td> 12/15/2020 05:01:00 AM EDT [facility] BLOOD COUNT COMPLETE AUTOMATED <td>CBC</td><td>STAT</t d><td>12/15/2020 5:01 AM EDT</td><td></td><td> </td> 12/15/2020 05:01:00 AM EDT [facility] MAGNESIUM <td>MAGNESIUM</td><td>STAT</ td><td>12/15/2020 5:01 AM EDT</td><td></td><td> </td> 12/15/2020 05:01:00 AM EDT [facility] BILIRUBIN DIRECT <td>BILIRUBIN, DIRECT</td><t d>STAT</td><td>12/15/2020 5:01 AM EDT</td><td></td><td> </td> 12/15/2020 05:01:00 AM EDT [facility] COMPREHENSIVE METABOLIC PANEL <td>COMPREHENSIVE METABO LIC PANEL</td><td>STAT</td><td>12/15/2020 5:01 AM EDT</td><td></td><td> </td> 12/15/2020 05:01:00 AM EDT [facility] THROMBOPLASTIN TIME PARTIAL PLASMA/WHOLE BLOOD <td>APTT</td><td>STAT</td><td>12/14/2020 6:10 PM EDT</td><td></td><td> </td> 12/14/2020 06:10:00 PM EDT [facility] GLUC BLD GLUC MNTR DEV CLEARED FDA SPEC HOME USE <td>P OCT GLUCOSE</td><td>Routine</td><td>12/14/2020 4:52 PM EDT</td><td></td><td> </td> 12/14/2020 04:52:00 PM EDT [facility] GLUC BLD GLUC MNTR DEV CLEARED FDA SPEC HOME USE <td>P OCT GLUCOSE</td><td>Routine</td><td>12/14/2020 12:30 PM EDT</td><td></td><td> </td> 12/14/2020 12:30:00 PM EDT [facility] GLUC BLD GLUC MNTR DEV CLEARED FDA SPEC HOME USE <td>P OCT GLUCOSE</td><td>Routine</td><td>12/14/2020 9:16 AM EDT</td><td></td><td> </td> 12/14/2020 09:16:00 AM EDT [facility] Transthoracic echocardiography with cont rast, or without contrast followed by with contrast, real-time with image documentation (2d), includes m-mode recording, when performed, complete, with spectral doppler echocardiography, and with color flow doppler echocardiography <td>ECHOCARDIOGRAM TRANSTHORACIC COMPLETE W/ CONTRAST</td><td>Routine</td><td>12/14/2020 8:03 AM EDT</td><td></td><td> </td> 12/14/2020 08:03:02 AM EDT [facility] TROPONIN QUANTITATIVE <td>TROPONIN I</td><td>Timed </td><td>12/14/2020 5:47 AM EDT</td><td></td><td> </td> 12/14/2020 05:47:00 AM EDT [facility] THROMBOPLASTIN TIME PARTIAL PLASMA/WHOLE BLOOD <td>APTT</td><td>Routine</td><td>12/14/2020 5:47 AM EDT</td><td></td><td> </td> 12/14/2020 05:47:00 AM EDT [facility] PROTHROMBIN TIME <td>PROTIME-INR</td><td>Add- On</td><td>12/14/2020 5:47 AM EDT</td><td></td><td> </td> 12/14/2020 05:47:00 AM EDT [facility] BLOOD COUNT COMPLETE AUTOMATED <td>CBC</td><td>Routine </td><td>12/14/2020 5:47 AM EDT</td><td></td><td> </td> 12/14/2020 05:47:00 AM EDT [facility] COMPREHENSIVE METABOLIC PANEL <td>COMPREHENSIVE METABO LIC PANEL</td><td>Timed</td><td>12/14/2020 5:47 AM EDT</td><td></td><td> </td> 12/14/2020 05:47:00 AM EDT [facility] TROPONIN QUANTITATIVE <td>TROPONIN I</td><td>STAT< /td><td>12/14/2020 2:05 AM EDT</td><td></td><td> </td> 12/14/2020 02:05:00 AM EDT [facility] MAGNESIUM <td>MAGNESIUM</td><td>STAT</ td><td>12/14/2020 2:05 AM EDT</td><td></td><td> </td> 12/14/2020 02:05:00 AM EDT [facility] COMPREHENSIVE METABOLIC PANEL <td>COMPREHENSIVE METABO LIC PANEL</td><td>STAT</td><td>12/14/2020 2:05 AM EDT</td><td></td><td> </td> 12/14/2020 02:05:00 AM EDT [facility] THROMBOPLASTIN TIME PARTIAL PLASMA/WHOLE BLOOD <td>APTT</td><td>Routine</td><td>12/14/2020 12:12 AM EDT</td><td></td><td> </td> 12/14/2020 12:12:00 AM EDT [facility] ECG ROUTINE ECG W/LEAST 12 LDS TRCG ONLY W/O I&R <td>E CG 12- LEAD</td><td>STAT</td><td>12/13/2020 10:13 PM EDT</td><td></td><td></td> 12/13/2020 10:13:23 PM EDT [facility] URINE CULTURE HOLD SPECIMEN <td>URINE CULTURE HOLD SPECIMEN</td><td>Routine</td><td>12/13/2020 8:08 PM EDT</td><td></td><td> </td> 12/13/2020 08:08:00 PM EDT [facility] URINE MICROSCOPIC <td>URINE MICROSCOPIC</td><t d>Add-On</td><td>12/13/2020 8:08 PM EDT</td><td></td><td> </td> 12/13/2020 08:08:00 PM EDT [facility] PROTEIN TOTAL XCPT REFRACTOMETRY URINE <td>PROTEIN / C REATININE RATIO, URINE</td><td>Routine</td><td>12/13/2020 8:08 PM EDT</td><td></td><td> </td> 12/13/2020 08:08:00 PM EDT [facility] PROTEIN ELECTROP FXJ&STEFFEN OTH FLUS CONCENTRATION <td>P ROTEIN ELECTROPHORESIS, RANDOM URINE</td><td>Routine</td><td>12/13/2020 8:08 PM EDT</td><td></td><td></td> 12/13/2020 08:08:00 PM EDT [facility] URNLS DIP STICK/TABLET RGNT AUTO W/O MICROSCOPY <td>UR INALYSIS W/O MICRO</td><td>Routine</td><td>12/13/2020 8:08 PM EDT</td><td></td><td> </td> 12/13/2020 08:08:00 PM EDT [facility] COMPLEMENT TOTAL HEMOLYTIC <td>COMPLEMENT ACT TOTAL</td><td>Routine</td><td>12/13/2020 7:10 PM EDT</td><td></td><td> </td> 12/13/2020 07:10:00 PM EDT [facility] FLUORESCENT NONNFCT AGT ANTB SCREEN EA ANTIBODY <td>AN CA VASCULITIS PROF</td><td>Routine</td><td>12/13/2020 7:10 PM EDT</td><td></td><td> </td> 12/13/2020 07:10:00 PM EDT [facility] HEPATITIS C ANTIBODY CONFIRMATORY TEST <td>HEPATITIS C ANTIBODY</td><td>Routine</td><td>12/13/2020 7:10 PM EDT</td><td></td><td> </td> 12/13/2020 07:10:00 PM EDT [facility] ANTINUCLEAR ANTIBODIES BÁRBARA TITER <td>BÁRBARA WITH REFLEX</td><td>Routine</td><td>12/13/2020 7:10 PM EDT</td><td></td><td> </td> 12/13/2020 07:10:00 PM EDT [facility] TROPONIN QUANTITATIVE <td>TROPONIN I</td><td>Add-O n</td><td>12/13/2020 7:10 PM EDT</td><td></td><td> </td> 12/13/2020 07:10:00 PM EDT [facility] NEPHELOMETRY EACH ANALYTE YUKO <td>IMMUNOGLOBULIN FREE LT CHAINS BLOOD</td><td>Routine</td><td>12/13/2020 7:10 PM EDT</td><td></td><td> </td> 12/13/2020 07:10:00 PM EDT [facility] IMMUNOASSAY ANALYTE QUANTITATIVE NOS <td>GLOMERULAR BA SEMENT MEMBRANE IGG</td><td>Routine</td><td>12/13/2020 7:10 PM EDT</td><td></td><td> </td> 12/13/2020 07:10:00 PM EDT [facility] CERULOPLASMIN <td>CERULOPLASMIN</td><td>Ad d-On</td><td>12/13/2020 7:10 PM EDT</td><td></td><td> </td> 12/13/2020 07:10:00 PM EDT [facility] RHEUMATOID FACTOR QUANTITATIVE <td>RHEUMATOID FACTOR</td><td>Routine</td><td>12/13/2020 7:10 PM EDT</td><td></td><td> </td> 12/13/2020 07:10:00 PM EDT [facility] COMPLEMENT ANTIGEN EACH COMPONENT <td>C3 COMPLEMENT</td><td>Routine</td><td>12/13/2020 7:10 PM EDT</td><td></td><td> </td> 12/13/2020 07:10:00 PM EDT [facility] COMPLEMENT ANTIGEN EACH COMPONENT <td>C4 COMPLEMENT</td><td>Routine</td><td>12/13/2020 7:10 PM EDT</td><td></td><td> </td> 12/13/2020 07:10:00 PM EDT [facility] PROTEIN ELECTROPHORETIC FRACTJ&QUANTJ SERUM <td>PROTEI N ELECTROPHORESIS, SERUM</td><td>Routine</td><td>12/13/2020 7:10 PM EDT</td><td></td><td></td> 12/13/2020 07:10:00 PM EDT [facility] ACETAMINOPHEN <td>ACETAMINOPHEN LEVEL</td> <td>Add-On</td><td>12/13/2020 7:10 PM EDT</td><td></td><td> </td> 12/13/2020 07:10:00 PM EDT [facility] CENTRAL LINE INSERTION <td>CENTRAL LINE INSERTION</td><td>Routine</td><td>12/13/2020 7:02 PM EDT</td><td> JOHN (acute kidney injury)</td><td> </td> 12/13/2020 07:02:07 PM EDT JOHN (acute kidney injury) [facility] JOHN (acute kidney injury) XR CHEST PORTABLE <td>XR CHEST PORTABLE</td><t d>STAT</td><td>12/13/2020 6:23 PM EDT</td><td></td><td> </td> 12/13/2020 06:23:48 PM EDT [facility] Hemodialysis (procedure) <td>HEMODIALYSIS INPATIENT TX</td><td>Routine</td><td>12/13/2020 5:08 PM EDT</td><td></td><td></td> 12/13/2020 05:08:39 PM EDT [facility] POC VENOUS BLOOD GAS W LYTES <td>POC VENOUS BLOOD GAS W LYTES</td><td>Routine</td><td>12/13/2020 5:04 PM EDT</td><td></td><td> </td> 12/13/2020 05:04:00 PM EDT [facility] GLUC BLD GLUC MNTR DEV CLEARED FDA SPEC HOME USE <td>P OCT GLUCOSE</td><td>Routine</td><td>12/13/2020 5:04 PM EDT</td><td></td><td> </td> 12/13/2020 05:04:00 PM EDT [facility] DUP-SCAN ARTL FILI ABDL/PEL/SCROT&/RPR ORGN LMTD <td>US ABDOMINAL VEINS LIMITED</td><td>STAT</td><td>12/13/2020 4:55 PM EDT</td><td></td><td> </td> 12/13/2020 04:55:55 PM EDT [facility] US RETROPERITONEAL REAL TIME W/IMAGE COMPLETE <td>US R ENAL KIDNEY BILATERAL</td><td>Routine</td><td>12/13/2020 4:01 PM EDT</td><td></td><td> </td> 12/13/2020 04:01:28 PM EDT [facility] ULTRASOUND ABDOMINAL REAL TIME W/IMAGE LIMITED <td>US RIGHT UPPER QUADRANT</td><td>Routine</td><td>12/13/2020 4:01 PM EDT</td><td></td><td> </td> 12/13/2020 04:01:10 PM EDT [facility] NT PRO BNP <td>NT PRO BNP</td><td>Routi ne</td><td>12/13/2020 3:19 PM EDT</td><td></td><td> </td> 12/13/2020 03:19:00 PM EDT [facility] TROPONIN QUANTITATIVE <td>TROPONIN I</td><td>Routi ne</td><td>12/13/2020 3:19 PM EDT</td><td></td><td> </td> 12/13/2020 03:19:00 PM EDT [facility] ACUTE HEPATITIS PANEL <td>HEPATITIS PANEL, ACUTE</td><td>Routine</td><td>12/13/2020 3:19 PM EDT</td><td></td><td> </td> 12/13/2020 03:19:00 PM EDT [facility] HEPATITIS B CORE ANTIBODY HBCAB TOTAL <td>HEPATITIS B CORE ANTIBODY, TOTAL</td><td>Routine</td><td>12/13/2020 3:19 PM EDT</td><td></td><td> </td> 12/13/2020 03:19:00 PM EDT [facility] HEPATITIS B SURF ANTIBODY HBSAB <td>HEPATITIS B SURFAC E ANTIBODY</td><td>Routine</td><td>12/13/2020 3:19 PM EDT</td><td></td><td> </td> 12/13/2020 03:19:00 PM EDT [facility] THROMBOPLASTIN TIME PARTIAL PLASMA/WHOLE BLOOD <td>APTT</td><td>Routine</td><td>12/13/2020 3:19 PM EDT</td><td></td><td> </td> 12/13/2020 03:19:00 PM EDT [facility] PROTHROMBIN TIME <td>PROTIME-INR</td><td>Rout ine</td><td>12/13/2020 3:19 PM EDT</td><td></td><td> </td> 12/13/2020 03:19:00 PM EDT [facility] BLOOD COUNT COMPLETE AUTO&AUTO DIFRNTL WBC COUNT <td>C BC AND DIFFERENTIAL</td><td>Routine</td><td>12/13/2020 3:19 PM EDT</td><td></td><td> </td> 12/13/2020 03:19:00 PM EDT [facility] THYROID STIMULATING HORMONE TSH <td>TSH</td><td>Routin e</td><td>12/13/2020 3:19 PM EDT</td><td></td><td> </td> 12/13/2020 03:19:00 PM EDT [facility] PHOSPHORUS INORGANIC <td>PHOSPHORUS</td><td>Routi ne</td><td>12/13/2020 3:19 PM EDT</td><td></td><td> </td> 12/13/2020 03:19:00 PM EDT [facility] MAGNESIUM <td>MAGNESIUM</td><td>Routin e</td><td>12/13/2020 3:19 PM EDT</td><td></td><td> </td> 12/13/2020 03:19:00 PM EDT [facility] HEMOGLOBIN GLYCOSYLATED A1C <td>HEMOGLOBIN A1C</td><td>Routine</td><td>12/13/2020 3:19 PM EDT</td><td></td><td> </td> 12/13/2020 03:19:00 PM EDT [facility] ALCOHOL ANY SPECIMEN EXCEPT BREATH <td>ETHANOL</td><td>Routine</td><td>12/13/2020 3:19 PM EDT</td><td></td><td> </td> 12/13/2020 03:19:00 PM EDT [facility] LIPID PANEL <td>LIPID PANEL</td><td>Rout ine</td><td>12/13/2020 3:19 PM EDT</td><td></td><td> </td> 12/13/2020 03:19:00 PM EDT [facility] COMPREHENSIVE METABOLIC PANEL <td>COMPREHENSIVE METABO LIC PANEL</td><td>Routine</td><td>12/13/2020 3:19 PM EDT</td><td></td><td> </td> 12/13/2020 03:19:00 PM EDT [facility] URINE MICROSCOPIC <td>URINE MICROSCOPIC</td><t d>Add-On</td><td>12/13/2020 2:15 PM EDT</td><td></td><td> </td> 12/13/2020 02:15:00 PM EDT [facility] PROTEIN TOTAL XCPT REFRACTOMETRY URINE <td>PROTEIN / C REATININE RATIO, URINE</td><td>Routine</td><td>12/13/2020 2:15 PM EDT</td><td></td><td> </td> 12/13/2020 02:15:00 PM EDT [facility] CHLORIDE URINE <td>URINE ELECTROLYTES</td>< td>Routine</td><td>12/13/2020 2:15 PM EDT</td><td></td><td> </td> 12/13/2020 02:15:00 PM EDT [facility] PROTEIN ELECTROP FXJ&STEFFEN OTH FLUS CONCENTRATION <td>P ROTEIN ELECTROPHORESIS, RANDOM URINE</td><td>Routine</td><td>12/13/2020 2:15 PM EDT</td><td></td><td></td> 12/13/2020 02:15:00 PM EDT [facility] CREATININE OTHER SOURCE <td>CREATININE, URINE, RANDOM</td><td>Routine</td><td>12/13/2020 2:15 PM EDT</td><td></td><td> </td> 12/13/2020 02:15:00 PM EDT [facility] URNLS DIP STICK/TABLET RGNT AUTO W/O MICROSCOPY <td>UR INALYSIS W/O MICRO</td><td>Routine</td><td>12/13/2020 2:15 PM EDT</td><td></td><td> </td> 12/13/2020 02:15:00 PM EDT [facility] ECG ROUTINE ECG W/LEAST 12 LDS W/I&R <td>ECG 12- LEAD</td><td>Routine</td><td>12/13/2020 12:36 PM EDT</td><td></td><td></td> 12/13/2020 12:36:40 PM EDT [facility] ECHO TTHRC R-T 2D W/WOM-MODE COMPL SPEC&COLR DOP 08/03 12:00:00 AM EDT [facility] ([facility] ECG ROUTINE ECG W/LEAST 12 LDS W/I&R 07/29/2020 12:00: 00 AM EDT [facility] ([facility] OFFICE OUTPATIENT VISIT 25 MINUTES 07/29/2020 12:00:00 AM EDT [facility] ([facility]) ECG ROUTINE ECG W/LEAST 12 LDS W/I&R 04/27/2020 12:00: 00 AM EST [facility] ([facility]) Immunization: Flublok Quadrivalent (18 years & older) 0.5mL IM (Influenza) 01/15/2020 12:00:00 AM EDT eCW1 ([facility]) Results ID Date Data Source [id number] 01/28/2021 10:38:00 AM EDT [facility] ([facility]) Name Value Range Interpretation Code Description Data Morena rce(s) Supporting Document(s) Magnesium [Mass/volume] in Serum or Plasma 2.1 mg/dL 1.8-2.4 [facility] ([facility]) ID Date Data Source [id number] 01/28/2021 10:38:00 AM EDT [facility] ([facility]) Name Value Range Interpretation Code Description Data Morena rce(s) Supporting Document(s) Glucose, Fasting 141 mg/dL 70-100 [facility] ([facility]) Blood Urea Nitrogen 16 mg/dL 7-18 [facility] ([facility]) Creatinine For GFR 1.30 mg/dL 0.70-1.30 [facility] ([facility]) Sodium Level 137 meq/L 136-145 [facility] ([facility]) Glomerular Filtration Rate Laboratory test result [facility] ([facility]) <content>Units are mL/min/1.73 m2</content>
<content></content>
<content>Chronic Kidney Disease Staging per NKF:</content>
<content></content>
<content>Stage I & II GFR >=60 Normal to Mildly Decreased</content>
<content>Stage III GFR 30- 59 Moderately Decreased</content>
<content>Stage IV GFR 15-29 Severely Decreased</content>
<content>Stage V GFR <15 Very Little GFR Left</content>
<content>ESRD GFR <15 on FEED MILL LAB TECHNICIAN</content>
<content></content> Chloride Level 100 meq/L 98-107 [facility] ([facility]) Potassium Serum 4.4 meq/L 3.5-5.1 [facility] ([facility]) Anion Gap 5 meq/L 8-16 [facility] Carbon Dioxide Level 32 meq/L 21-32 [facility] ([facility]) Ast/Sgot 21 U/L 7-37 [facility] ([facility] Calcium Level 9.9 mg/dL 8.5-10.1 [facility] ([facility]) Alkaline Phosphatase 64 U/L 45-117 [facility] ([facility]) Alt/SGPT 32 U/L 12-78 [facility] ([facility] Bilirubin,Total 0.5 mg/dL 0.2-1.0 [facility] ([facility]) Total Protein 7.6 GM/DL 6.4-8.2 [facility] ([facility]) Albumin 3.9 GM/DL 3.2-5.2 [facility] ([facility]) Albumin/Globulin Ratio 1.1 [facility] ([facility]) ID Date Data Source [id number] 01/28/2021 10:38:00 AM EDT [facility] ([facility]) Name Value Range Interpretation Code Description Data Morena rce(s) Supporting Document(s) Natriuretic peptide.B prohormone N-Terminal [Mass/volu me] in Serum or Plasma 762 pg/mL [facility] ([employer] [facility]) ID Date Data Source [id number] 01/21/2021 01:39:10 PM [facility] Name Date of Age Gend*PT [id number] Dilan Kirk 1960 60 years M IPPT Location Admission Date/Time Visit ID Attending [id number] 12/13/20 1238 --- --- EPI ID CSN Admitting Provider [id number] Crystal Neal MD([id number]) [facility] DISCHARGE SUMMARYPatient Name: Dilan Kirk of : 1960 Age 60 yearsPrimary Physician: PCP PROVIDER REQUESTED PCP Phone: NoneAdmission Date: 12/13/2020 Discharge Date: 12/17/2020He will be discharged from [facility] to home.Discharge Diagnoses:Principal Problem: Coronary artery disease involving [place] coronary artery of [place] heart withunstable angina pectorisActive Problems: Sustained VT (ventricular tachycardia) COPD (chronic obstructive pulmonary disease) DM2 (diabetes mellitus, type 2) HTN (hypertension) Tobacco use Elevated troponin JOHN (acute kidney injury) Elevated LFTs RBBB Acute coronary syndrome Ischemic cardiomyopathyDischarge Medications:Discharge Medication List as of 12/17/2020 7:18 PMSTART taking these medications Detailsfurosemide (LASIX) 40 MG tablet Take 1 tablet (40 mg total) by mouth Twice Dailyfor Loop Diuretics, Starting Sun12/17/2020, Until Sun01/16/2021, E-PrescribeCONTINUE these medications which have CHANGED Detailsclopidogrel (PLAVIX) 75 MG tablet Take 1 tablet (75 mg total) by mouth daily,Starting Sun12/17/2020, Until Sun01/16/2021, E-PrescribeCONTINUE these medications which have NOT CHANGED Detailsalbuterol (PROVENTIL HFA;VENTOLIN HFA) 108 (90 BASE) MCG/ACT inhaler Inhale 2puffs every 4 (four) hours as needed for wheezing, Historical Medaspirin (ASPIRIN) 81 MG chewable tablet Chew 81 mg daily, Historical Medatorvastatin (LIPITOR) 80 MG tablet Take 80 mg by mouth nightly , Historical Medbisoprolol (ZEBETA) 5 MG tablet Take 5 mg by mouth nightly , Historical MedErtugliflozin L- PyroglutamicAc (Steglatro) 15 MG TABS Take 15 mg by mouth daily, Historical MedmetFORMIN (GLUCOPHAGE-XR) 500 MG 24 hr tablet Take 1,000 mg by mouth daily withrob, Historical Medmontelukast (SINGULAIR) 10 MG tablet Take 10 mg by mouth every morning ,Historical Mednitroglycerin (NITROSTAT) 0.[address] 0.4 mg under the tongue every 5(five) minutes as needed for chest pain, Historical MedSTOP taking these medications chlorthalidone (HYGROTEN) 25 MG tabl et ibuprofen (ADVIL,MOTRIN) 200 MG tablet losartan (COZAAR) 50 MG tabletFollow Up Instructions:The patient was given an after visit summary.Items needing special attention:Followup with Nephrology and [facility] Course:Dilan Kirk is a 60 y.o. male with PMHx significant for HTN, DM2, COPD,CAD, DE. He states he drank 7-8 wine coolers at a field days on 12/11 (he does notconsume alcohol regularly), and when he stood up he developed dizziness,lightheadedness, and numbness/tinglingling in his bilateral hands. He statesthis persisted for a little while, relieved with rest, it did not bother himovernight and he was able to sleep. The following day he developed the samesymptoms but with numbness in his feet as well persisting into today, promptinghim to go to [facility] ER for [facility]. There he was found to be in VT with"rate at 170". He was cardioverted x 1 at 200J with conversion to SR with STelevations in lead III and lateral ST depressions. He was loaded with ASA andplavix, heparin gtt was started and he was transferred to [facility] ER for Cardiologyevaluation. Noted to be in JOHN, Nephrology was consulted. Thought to besecondary to ATN. S/p urgent HD in ICU on 12/13 and HD again on 12/16 withimprovement in renal function. Nighatkar was pulled out prior to discharge.For acute hepatitis, Gastroenterology was consulted. Started on NAC protocolwith improvement.For sustained Vtach, Ca rdiology and EP [facility] on [facility]15 showing occluded RCA similar to priorstudy. ICD placement by EP todayDischarge Exam:Blood Pressure: BP: 104/64 Pulse: Heart Rate: 63Temperature: Temp: 98.4 F Respirations: Resp: 18Admission Weight: Weight: 94.6 kg (208 lb 8.9 oz) O2 Saturation: SpO2: 94 %Discharge Weight: Weight: 90.2 kg (198 lb 13.7 oz) (Post dialysis wt) BMI: Bodymass index is 30.24 kg/m .Physical Exam General alert, cooperative, in no apparent distress HEENT PERRLA, EOMI, fundi benign Lungs clear to auscultation Heart regular rate and rhythm and without murmur Abdomen soft, non-tender, non-distended, no organomegaly or masses Musculoskeletal negative Neuro normal without focal findings and PERLAOther Pertinent Findings: NoneDiagnostics:Procedures:ICD placementConsultants:EPCardiologyNephrologyRecent Labs:BMP:Lab ResultsComponent Value Date NA 136 12/16/2020 K 3.6 12/16/2020 CL 100 12/16/2020 CO2 31 12/16/2020 ANIONGAP 5 (L) 12/16/2020 CALCIUM 8.2 (L) 12/16/2020 GLU 125 (H) 12/16/2020 BUN 22 12/16/2020 CREATININE 1.00 12/16/2020 GFRAA >60 12/16/2020 GFRNONAA >60 12/16/2020ardiac:Lab ResultsComponent Value Date TROPONINI 6.84 (HH) 12/14/2020 PROBNP 18,068 (H) 12/13/2020BC with Diff:Lab ResultsComponent Value Date WBC 10.1 12/16/2020 RBC 4.59 (L) 12/16/2020 HGB 15.2 12/16/2020 HCT 43.4 12/16/2020 MCV 94.4 12/16/2020 MCH 33.0 (H) 12/16/2020 MCHC 35.0 12/16/2020 RDW 14.7 (H) 12/16/2020 PLT 130 (L) 12/16/2020 MPV 8.8 12/16/2020 LYMPHOPCT 10.5 (L) 12/13/2020 MONOPCT 4.0 12/13/2020 EOSPCT 0.1 12/13/2020 BASOPCT 0.1 12/13/2020 NEUTROABS 12.3 (H) 12/13/2020 MONOABS 0.6 12/13/2020 BASOSABS 0.0 12/13/2020Crystal Neal MD1:39 PMTotal time spent for discharge on date of discharge: 45 minutes Name Value Range Interpretation Code Description Data Morena rce(s) Supporting Document(s) ID Date Data Source [id number] 12/27/2020 08:12:00 AM EDEsau RABAGO ([facility]) Name Value Range Interpretation Code Description Data Morena rce(s) Supporting Document(s) Magnesium [Mass/volume] in Serum or Plasma 1.9 mg/dL 1.8-2.4 [facility] ([facility]) ID Date Data Source [id number] 12/27/2020 08:12:00 AM EDT [facility] ([facility]) Name Value Range Interpretation Code Description Data Morena rce(s) Supporting Document(s) Blood Urea Nitrogen 25 mg/dL 7-18 [facility] ([facility]) Glucose, Fasting 168 mg/dL 70-100 [facility] ([facility]) Glomerular Filtration Rate Laboratory test result [facility] ([facility]) <content>Units are mL/min/1.73 m2</content>
<content></content>
<content>Chronic Kidney Disease Staging per NKF:</content>
<content></content>
<content>Stage I & II GFR >=60 Normal to Mildly Decreased</content>
<content>Stage III GFR 30- 59 Moderately Decreased</content>
<content>Stage IV GFR 15-29 Severely Decreased</content>
<content>Stage V GFR <15 Very Little GFR Left</content>
<content>ESRD GFR <15 on FEED MILL LAB TECHNICIAN</content>
<content></content> Creatinine For GFR 1.26 mg/dL 0.70-1.30 [facility] ([facility]) Potassium Serum 4.5 meq/L 3.5-5.1 [facility] ([facility]) Sodium Level 137 meq/L 136-145 [facility] ([facility]) Chloride Level 99 meq/L 98-107 [facility] ([facility]) Anion Gap 8 meq/L 8-16 [facility] ([facility]) Carbon Dioxide Level 30 meq/L 21-32 [facility] ([facility]) Calcium Level 9.5 mg/dL 8.5-10.1 [facility] ([facility]) Alt/SGPT 116 U/L 12-78 [facility] ([facility]) Ast/Sgot 36 U/L 7-37 [facility] ([facility]) Bilirubin,Total 0.7 mg/dL 0.2-1.0 [facility] ([facility] Alkaline Phosphatase 71 U/L 45-117 [facility] ([facility] Total Protein 7.4 GM/DL 6.4-8.2 [facility] ([facility] Albumin 3.7 GM/DL 3.2-5.2 [facility] ([facility] Albumin/Globulin Ratio 1.0 [facility] ([facility] ID Date Data Source [id number] 12/27/2020 08:12:00 AM EDT [facility] ([facility] Name Value Range Interpretation Code Description Data Morena rce(s) Supporting Document(s) Natriuretic peptide.B prohormone N-Terminal [Mass/volu me] in Serum or Plasma 1141 pg/mL [facility] ([employer] [facility] ID Date Data Source [id number] 12/17/2020 06:57:27 PM EDT [address] [address] [id number] Name: DILAN KIRKDOB: 1960ex: MOrnathaniel Provider: Sulma Cristobal Prov: Sulma Sanchez Provider: Procedure Performed: / XR CHEST PORTABLEExam Date: 12/17/2020 18:56MRN: [id number] Number: [id number] Class: InpatientAccount #: [id number] for Exam: icdTechnique: AP portable view obtained.Comparison: December 13, 2020Findings: ICD lead is projected over the right ventricle. There is moderate cardiac megaly. No adenopathy is revealed. No pneumothorax demonstrated. No pleural effusion is demonstrated. Lungs are hypoinflated but clear.IMPRESSION: Cardiomegaly. No pneumothorax.Report electronically signed by: HAILEE CHARLES On 12/17/2020 6:57 PMWorkstation ID: [id number] Name Value Range Interpretation Code Description Data Morena rce(s) Supporting Document(s) ID Date Data Source [id number] 12/17/2020 06:54:08 PM EDT [facility] Name Value Range Interpretation Code Description Data Morena rce(s) Supporting Document(s) POC NOVA GLU 112 mg/dL (70-99) H [facility] [place] [facility] CLINICAL STAFF ID Date Data Source [id number] 12/17/2020 05:58:49 PM EDT [facility] Name Value Range Interpretation Code Description Data Morena rce(s) Supporting Document(s) &PDF [facility] [id number] Dcm [file] [id number]= ID Date Data Source [id number] 12/17/2020 11:50:01 AM EDT [facility] Name Value Range Interpretation Code Description Data Morena rce(s) Supporting Document(s) POC NOVA GLU 193 mg/dL (70-99) H [facility] [place] [facility] CLINICAL STAFF ID Date Data Source [id number] 12/17/2020 09:15:22 AM EDT [facility] Name Value Range Interpretation Code Description Data Morena rce(s) Supporting Document(s) POC NOVA GLU 149 mg/dL (70-99) H [facility] [place] [facility] CLINICAL STAFF ID Date Data Source [id number] 12/17/2020 10:43:50 AM EDT [facility] Name Value Range Interpretation Code Description Data Morena rce(s) Supporting Document(s) APTT 60.9 s (22.0-34.3) H [facility] ID Date Data Source [id number] 12/17/2020 01:55:46 AM EDT [facility] Name Value Range Interpretation Code Description Data Morena rce(s) Supporting Document(s) APTT 73.2 s (22.0-34.3) H [facility] ID Date Data Source [id number] 12/16/2020 05:57:46 PM EDT [facility] [place] Name Value Range Interpretation Code Description Data Morena rce(s) Supporting Document(s) POC NOVA GLU 104 mg/dL (70-99) H [facility] [place] [facility] CLINICAL STAFF ID Date Data Source [id number] 12/16/2020 05:43:04 PM EDT [facility] [place] Name Value Range Interpretation Code Description Data Morena rce(s) Supporting Document(s) APTT 56.3 s (22.0-34.3) H [facility] ID Date Data Source [id number] 12/16/2020 12:34:46 PM EDT [facility] INFORMATIONPatient MRN Name Date of Age Gend*PT [id number] Dilan Kirk 1960 60 years M IPPT Location Admission Date/Time Visit ID Attending [id number] 12/13/20 1238 --- Crystal Neal MD([id number]) EPI ID CSN Admitting Provider [id number] Crsytal Neal MD([id number]) Attestation signed by Crystal Neal MD at 12/16/2020 12:34 PMPatient seen and examined independently on 12/13, I discussed management and Iagree with plan outlined by Griselda Grimaldo. Plan for emergent dialysis.Signature: CLARKE Harrisonate: December 16, 2020Time: 12:34 PM Inpatient History & PhysicalDilan KirkMRN:[id number] from [facility]: VT s/p cardioversion, elevated troponinHPI: 60 years-old male with pmhx significant for CAD with ICM (EF 40%), DM2, HTNpresents 12/13/20 to [facility] as a transfer from [facility]. He was c/o dizzinesssince Sunday - states he drank too much at a field day with persistentdizziness and paraesthesias in his extremities -- arrived to [facility] ED, foundto be in VT requiring cardioversion x 1 (200 J). He states his paraesthesias anddizziness resolved -- Post cardioversion EKG SR with ST elevations to lead III,lateral depressions. He was loaded with aspirin/plavix and started on heparindrip and transferred to [facility].Troponin 3.36, NTpro BNP >33kPOC BMP abnormal: Na 131 K 7.1 Chloride 98 CO2 19 BUN/Creat 77/5.1 Glucose 150CMP abnormal: Na 133 K 6.5 Chloride 97 CO2 21 BUN/Creatinine 58/4.94 Glucose 150LFTs: T bili 0.8 AST 5044 ALT 5023 Alk phos 49INR 1.92WBC 20.7 H/H 18.9/57.9 PLT 146CXR neg for acute diseaseThe patient denies any known history of kidney or liver disease, denies fever,chills, sick contacts, or recent travel, chest pain, SOB, cough, abd pain,N/V/D. His last heart cath was in 2017 revealing chronically occluded RCA with Lto R collaterals, Thread Weaver: Dr. Wright ([place]). Spoke to Dr. Erickson(cardiology) for consult, will also consult nephrology.Assessment and Plan:Principal Problem: Coronary artery disease involving [place] coronary artery of wamp[place]ag heart withunstable angina pectorisActive Problems: VT (ventricular tachycardia) COPD (chronic obstructive pulmonary disease) DM2 (diabetes mellitus, type 2) HTN (hypertension) Tobacco use Elevated troponin JOHN (acute kidney injury) Elevated LFTsVT, elevated troponin, Hx of single vessel CAD (RCA), s/p cardioversion,currently SR with occasional PVC- continue aspirin/plavix- continue heparin drip- cardiology consult is pending- r/o [id number], denies any previous history of renal problems, he is on losartan,chlorthalidone, and Steglatro, also reports taking ibuprofen 800 mg daily forsciatica, denies any weight gain, swelling, or change in his urine- check BMP, Mg, Phos, renal ultras- nephrology consult pendingElevated LFTs, denies any known liver problems, states he rarely drinks ETOH,but had 8 drinks on Sunday- RUQ US- acute hepatitis panel- hold statin- consider GI consultHTN- continue amlodipine, bisoprolol- hold losartan, chlorthalidoneDiabetes Mellitus Type 2- check A1c- serum glucose 150 (from [facility])- home meds: metformin, Steglatro- monitor BG, start lantus 6u nightly, 2u ISSDVT prophylaxis: heparin dripCode status: FULL CODED/w Dr. Dwyer Medical History:Past Medical History:Diagnosis Date Asthma Cardiomegaly COPD (chronic obstructive pulmonary disease) Coronary artery disease Diabetes mellitus History of herniated intervertebral disc Hypertension DE (myocardial infarction) Sinusitis Umbilical herniaPast Surgical History:No past surgical history on file.Medications:Prior to Admission medicationsMedication Sig Start Date End Date Taking? Authorizing ProvideramLODIPine (NORVASC) 10 MG tablet Take 10 mg by mouth daily Yes AlethaProMD herminiabisoprolol (ZEBETA) 5 MG tablet Take 5 mg by mouth daily Yes HistoricalProMD herminiaErtugliflozin L-PyroglutamicAc (S teglatro) 15 MG TABS Take by mouth YesHistorical Provider, Ivyontelukast (SINGULAIR) 10 MG tablet Take 10 mg by mouth nightly YesHistorical Provider, Jtlbuterol (PROVENTIL HFA;VENTOLIN HFA) 108 (90 BASE) MCG/ACT inhaler Inhale 2puffs every 4 (four) hours as needed for wheezing Historical Provider, Jtspirin (ASPIRIN) 81 MG chewable tablet Chew 81 mg daily Historical Provider,Jttorvastatin (LIPITOR) 80 MG tablet Take 80 mg by mouth daily HistoricalProviChilo floreslopidogrel (PLAVIX) 75 MG tablet Take 75 mg by mouth daily HistoricalProMaribel hopesartan (COZAAR) 25 MG tablet Take 25 mg by mouth daily Historical Provider,MDmetFORMIN (GLUCOPHAGE) 850 MG tablet Take 850 mg by mouth daily with breakfastHistorical Provider, nitroglycerin (NITROSTAT) 0.[address] 0.4 mg under the tongue every 5(five) minutes as needed for chest pain Historical Provider, MDPARoxetine (PAXIL) 20 MG tablet Take 20 mg by mouth every morning HistoricalProvider, MDatenolol (TENORMIN) 50 MG tablet Take 50 mg by mouth 2 (two) times a day 12/13/20Historical Provider, Allergies:Patient has no known drug allergies.No family history on file. Denies known family history of medical problemsSocial HistoryTobacco Use Smoking status: Current Every Day Smoker Types: Cigarettes, Electronic Cigarettes Smokeless tobacco: Current User Tobacco comment: 1 cigarette daily/1.6 E-CigSubstance Use Topics Alcohol use: Not Currently Comment: rarely Drug use: NoReview of Systems:Review of Systems As per HPI, all other systems are negative.Physical Exam:Vital Signs: Temp: [98.7 F] 98.7 FHeart Rate: [61] 61Resp: [18] 18BP: (127)/(75) 127/75Physical ExamConstitutional: General: He is not in acute distress. Appearance: He is not diaphoretic.HENT: Head: Normocephalic and atraumatic. Mouth/Throat: Mouth: Mucous membranes are dry.Eyes: General: No scleral icterus. Conjunctiva/sclera: Conjunctivae normal.Cardiovascular: Rate and Rhythm: Normal rate and regular rhythm. Heart sounds: No murmur heard.Pulmonary: Effort: Pulmonary effort is normal. No respiratory distress. Breath sounds: Normal breath sounds. No stridor. No wheezing or rales.Chest: Chest wall: No tenderness.Abdominal: General: Bowel sounds are normal. There is no distension. Palpations: Abdomen is soft. There is no mass. Tenderness: There is no abdominal tenderness. There is no guarding.Musculoskeletal: General: No swelling or tenderness. Normal range of motion. Cervical back: Normal range of motion and neck supple.Skin: General: Skin is warm and dry. Capillary Refill: Capillary refill takes less than 2 seconds. Coloration: Skin is not pale.Neurological: Mental Status: He is alert and oriented to person, place, and time.Psychiatric: Behavior: Behavior normal. Thought Content: Thought content normal. Judgment: Judgment normal.Labs, Imaging and Other Diagnostics:Diagnostic tests reviewed: discussed in HPISignature: Griselda Grimaldo, NPDate: December 13, 2020Time: 1:50 [id number] Name Value Range Interpretation Code Description Data Morena rce(s) Supporting Document(s) ID Date Data Source [id number] 12/16/2020 12:04:32 PM EDT [facility] Name Value Range Interpretation Code Description Data Morena rce(s) Supporting Document(s) POC NOVA GLU 115 mg/dL (70-99) H [facility] [place] [facility] CLINICAL STAFF ID Date Data Source [id number] 12/16/2020 11:09:20 AM EDT [facility] Name Value Range Interpretation Code Description Data Morena rce(s) Supporting Document(s) PHOSPHORUS 1.6 mg/dL (2.5-4.5) L [facility] ID Date Data Source [id number] 12/16/2020 11:09:20 AM EDT [facility] Name Value Range Interpretation Code Description Data Morena rce(s) Supporting Document(s) SODIUM 136 mmol/L (136-145) [facility] POTASSIUM 3.6 mmol/L (3.6-5.2) [facility] CHLORIDE 100 mmol/L (100-108) [facility] CO2 31 mmol/L (22-31) [facility] ANION GAP 5 mmol/L (7-16) L [facility] UREA NITROGEN 22 mg/dL (7-24) [facility] CREATININE 1.00 mg/dL (0.80-1.30) [facility] BUN/CREAT RATIO 22.0 RATIO (10.0-20.0) H [facility] GLUCOSE 125 mg/dL (70-99) H [facility] CALCIUM 8.2 mg/dL (8.4-10.2) L [facility] GFR >60 ml/min/1.73m2 (>59) [facility] GFR ( AMER) >60 ml/min/1.73m2 (>59) [facility] GFR INTERPRETATION [facility] --NORMAL KIDNEY FUNCTION OR MILD DISEASE - GFR >OR= 60CHRONIC KIDNEY DISEASE - GFR 15 - 59RENAL FAILURE - GFR <15 Est. GFR calculation based on the MDRDstudy equation, which assumes a steadystate for creatinine. Est. GFR should notbe used for medication dosing. ID Date Data Source [id number] 12/16/2020 10:51:49 AM EDT [facility] [place] Name Value Range Interpretation Code Description Data Morena rce(s) Supporting Document(s) WBC 10.1 10*3/uL (4.1-11.0) [facility] RBC 4.59 10*6/uL (4.60-6.10) L [facility] HGB 15.2 g/dL (13.5-18.0) [facility] HCT 43.4 % (41.0-53.0) [facility] MCV 94.4 fL (80.0-95.0) [facility] MCH 33.0 pg (27.0-32.0) H [facility] MCHC 35.0 g/dL (32.0-36.0) [facility] RDW 14.7 % (10.5-14.5) H [facility] PLT 130 10*3/uL (150-450) L [facility] MPV 8.8 fL (7.1-10.7) [facility] ID Date Data Source [id number] 12/16/2020 11:07:19 AM EDT [facility] [place] Name Value Range Interpretation Code Description Data Morena rce(s) Supporting Document(s) APTT 56.6 s (22.0-34.3) H [facility] ID Date Data Source [id number] 12/15/2020 11:02:30 PM EDT [facility] Name Value Range Interpretation Code Description Data Morena rce(s) Supporting Document(s) APTT 61.8 s (22.0-34.3) H [facility] ID Date Data Source [id number] 12/15/2020 06:29:11 PM EDT [facility] Name Value Range Interpretation Code Description Data Morena rce(s) Supporting Document(s) POC NOVA GLU 167 mg/dL (70-99) H [facility] [place] [facility] CLINICAL STAFF ID Date Data Source [id number] 12/15/2020 05:45:14 PM EDT [facility] Name Value Range Interpretation Code Description Data Morena rce(s) Supporting Document(s) &PDF [facility] [id number] [file] [id number] ID Date Data Source [id number] 12/15/2020 01:37:03 PM EDT [facility] Name Value Range Interpretation Code Description Data Morena rce(s) Supporting Document(s) POC NOVA GLU 116 mg/dL (70-99) H [facility] [place] [facility] CLINICAL STAFF ID Date Data Source [id number] 12/15/2020 10:28:49 AM EDT [facility] NT INFORMATIONPatient MRN Name Date of Age Gend*PT [id number] Dilan Kirk 1960 60 years M IPPT Location Admission Date/Time Visit ID Attending ProviderHEMODIALYSIS 12/13/20 1238 --- Crystal Neal MD([id number]) EPI ID CSN Admitting Provider [id number] Crystal Neal MD([id number])INPATIENT EP CONSULT NOTEPatient Name: Dilan Kirk of : 1960 Age: 60 yearsGender: male Primary Physician: PCP PROVIDER REQUESTEDDate of Referral: 12/15/2020 PCP Phone: NoneCONSULTING PHYSICIAN: Leo Hylton M.D.REQUESTING PHYSICIAN: Grace FOR REFFERAL: Sustained VTHISTORY OF PRESENT ILLNESS:Dilan Kirk is a 60 years male with medical problems of coronaryartery disease, hypertension, smoking, hyperlipidemia cared for by Dr Bravo who presents with sustained mm VT. He was cardioverted with 200 J tosinus rhythmHe is a transfer from [facility] [place].He is known to have chronically occluded RCA and prior inferior wall myocardialinfarction.He had a left heart cath in 2005 at [place] chronic RCA occlusion wdnxyyhm-xr-ozgqj collaterals. No significant other disease. Repeat cath in 2017showed similar findings. His EF was 40%..Ejection fraction now is 35%.The symptoms began 2 days prior to presentati on. . He felt palpitation andlightheadedness.He finally presented to the ER with sustained monomorphic VT that wassuccessfully cardioverted. Symptoms subsided immediately.He denies any recent chest pain or exertional symptoms. He is getting a cardiaccatheterization today.No syncope.The EP service was consulted to consider ICD for secondary preventionThe history was taken from the patient ,medical recordsFamily was not present during interview.PAST MEDICAL HISTORY:Past Medical History:Diagnosis Date Asthma Cardiomegaly COPD (chronic obstructive pulmonary disease) Coronary artery disease Diabetes mellitus History of herniated intervertebral disc Hypertension DE (myocardial infarction) Sinusitis Umbilical herniaPAST SURGICAL HISTORY:No past surgical history on file.MEDICATIONS:Scheduled Meds: aspirin 81 mg Oral Daily bisoprolol 5 mg Oral Daily clopidogrel 75 mg Oral Daily insulin lispro 1-4 Units Subcutaneous With meals sliding scale montelukast 10 mg Oral Nightly normal saline flush 3 mL Intravenous Q8H NINA normal saline flush 3 mL Intravenous Per ProtocolContinuous Infusions: heparin (porcine) in NaCl 18 Units/kg/hr (12/14/202123)PRN Meds:.albuterol, heparin (porcine), nitroglycerinALLERGIES:No Known Drug AllergiesSOCIAL HISTORY:Social HistoryTobacco Use Smoking status: Current Every Day Smoker Types: Cigarettes, Electronic Cigarettes Smokeless tobacco: Current User Tobacco comment: 1 cigarette daily/1.6 E-CigSubstance Use Topics Alcohol use: Not Currently Comment: rarely.FAMILY HISTORY:No family history on file.Review of Systems:Pertinent positives as mentioned in the HPI. Denies recent fever, chills, orchange in appetite. Denies unilateral weakness, numbness, slurred speech, orfacial droop. Denies any hematemesis, hematochezia, or melena. Denies nausea,vomiting, diarrhea, or abdominal pain.All other systems were reviewed and the remainder are negative.PHYSICAL EXAMINATION:Vital Signs:Vitals: 12/15/20 0620BP: 100/65Pulse: 57Resp:Temp: 98.5 FSpO2: 96%General: Well-developed well-nourished, NAD.HEENT: externally normalNeck: Supple. No carotid bruits. No lymphadenopathy or thyromegalyLungs: Clear to auscultation bilaterally, no rales/rhonchi/wheezes.CV: regular rate & rhythm, no murmurs, rubs, or gallops. Normal S1/S2. The JVPis <8 cm.Abd: Soft, non-tender, non-distended.Extremities: No edema; no cyanosis or clubbing.Skin: Warm & dry, without jaundice or bruising.Psych: A&O x3, affect appr opriate.Neuro: grossly normalPERTINENT LABS:Results from last 7 daysLab Units 09/08/571183 12/14/2101HEMOGLOBIN g/dL 15.5 15.7 -- -- -- 15.9HEMATOCRIT % 44.7 45.8 -- -- -- 46.9POC HEMATOCRIT % -- -- -- 47 -- --PLATELETS 10*3/uL 95* 100* -- -- -- 126*SODIUM mmol/L 135* 136 137 -- < > 133*POTASSIUM mmol/L 3.4* 4.1 3.9 -- < > 5.2CHLORIDE mmol/L 102 98* 98* -- < > 100CO2 mmol/L 26 24 25 -- < > 21*BUN mg/dL 40* 44* 40* -- < > 60*CREATININE mg/dL 1.41* 2.71* 2.84* -- < > 4.30*GLUCOSE mg/dL 94 107* 134* -- < > 92CALCIUM mg/dL 8.4 8.8 9.1 -- < > 9.8PHOSPHORUS mg/dL -- -- -- -- -- 7.2* < > = values in this interval not displayed.DIAGNOSTIC DATA:I personally reviewedEKG: VTTelemetry Monitoring: sinusEchocardiogram EF: 35%Left Heart Cath: pendingFINAL DIAGNOSES:1. Sustained V. Tach right bundle/right axis CL 350 ms2. Old inferior wall MI3. Total RCA occlusion4. Ischemic cardiomyopathy with EF of 35%5. Chronic systolic class II congestive heart failure6. Hyperlipidemia, hypertension7. Smoking8. On hemodialysis for acute renal failure via right IJ veinDiscussion:This is a patient with known ischemic cardiomyopathy, totally occluded RCA,prior inferior wall myocardial infarction, no prior coronary intervention whopresents with sustained monomorphic VT cycle length 350 ms with right bundleright superior axis morphology.PLAN:1. Left heart cath today followed by ICD implant prior to discharge.2. Procedure was discussed with patient risks, benefits, and alternativesexplained. Potential risks include but not limited to pain, bleeding, infection,injury to any body system or organ between the skin and heart (including theskin, subcutaneous tissue, blood vessels, phrenic nerve, abdominal organs,heart, and lungs), possible need for a heart surgery , heart attack, stroke, oreven .Leo Hylton M.D., [facility], RSClinical Cardiac Electrophysiology12/15/2020 8:57 AM Name Value Range Interpretation Code Description Data Morena rce(s) Supporting Document(s) ID Date Data Source [id number] 12/15/2020 08:50:28 AM EDT [facility] Name Value Range Interpretation Code Description Data Morena rce(s) Supporting Document(s) POC NOVA GLU 107 mg/dL (70-99) H [facility] [place] [facility] CLINICAL STAFF ID Date Data Source [id number] 12/15/2020 08:46:34 AM EDT [facility]PAT[facility] NT INFORMATIONPatient MRN Name Date of Age Gend*PT [id number] Dilan Kirk 1960 60 years M IPPT Location Admission Date/Time Visit [facility] --- Crystal Neal MD([id number]) EPI ID [facility] Admitting Provider [id number] Crystal Neal MD([id number])CARDIOLOGY CONSULTATIONName: Dilan Kirk Gender: maleDate of : 1960 Age: 60 yearsDate/Time of Admit: 12/13/2020 12:38 PM Code Status: Full CodePrimary Care Provider / Referring Physician: PCP PROVIDER REQUESTEDInformant:HISTORYCHIEF COMPLAINT: No chief complaint on file.HPI:This patient is a 60 years male who was transferred here from [place] [address] after complaining of dizziness and going to the emergency roomand being found to have sustained V. tach, which was cardioverted with 200 J.The patient had been drinking excessively at the time.He has a history of coronary artery disease with an ischemic cardiomyopathy andan EF of about 40%.Prior to the arrhythmia he had not been experiencing angina pectoris orcongestive symptoms.In 2005 he was found to have a totally occluded right coronary and again thesame finding was present in 2017 at cath.A TTE performed yesterday demonstrated a dilated left ventricle with EF 35 to40% mild LVH and grade 2 diastolic dysfunction with elevated LVEDP. There wasno significant valvular pathology.His prehospital medications included chlorthalidone, aspirin, Lipitor, Zebeta,Cozaar, Nitrostat, and atenolol.His laboratory studies revealed a creatinine of 4.30 and a GFR of 14. Hispotassium was 5.2. His AST was 7665 and ALT 6369. Troponin I on arrival was5.89 and the N-terminal proBNP 18,068. His most recent troponin was 6.84. Ahemoglobin is 15.7.PAST HISTORYPMH:Past Medical History:Diagnosis Date Asthma Cardiomegaly COPD (chronic obstructive pulmonary disease) Coronary artery disease Diabetes mellitus History of herniated intervertebral disc Hypertension DE (myocardial infarction) Sinusitis Umbilical herniaPSH: No past surgical history on file.FH: No family history on file.PSH:Social HistorySocial History Narrative Not on fileSocial HistorySocioeconomic History Marital status: Spouse name: Not on file Number of children: Not on file Years of education: Not on file Highest education level: Not on fileOccupational History Not on fileTobacco Use Smoking status: Current Every Day Smoker Types: Cigarettes, Electronic Cigarettes Smokeless tobacco: Current User Tobacco comment: 1 cigarette daily/1.6 E-CigSubstance and Sexual Activity Alcohol use: Not Currently Comment: rarely Drug use: No Sexual activity: Not on fileOther Topics Concern Not on fileSocial History Narrative Not on fileSocial Determinants of HealthFinancial Resource Strain: Difficulty of Paying Living Expenses:Food Insecurity: Worried About Running Out of Food in the Last Year: Ran Out of Food in the Last Year:Transportation Needs: Lack of Transportation (Medical): Lack of Transportation (Non-Medical):Physical Activity: Days of Exercise per Week: Minutes of Exercise per Session:Stress: Feeling of Stress :Social Connections: Frequency of Communication with Friends and Family: Frequency of Social Gatherings with Friends and Family: Attends Bahai Services: Active Member of Clubs or Organizations: Attends Club or Organization Meetings: Marital Status:Intimate Partner Violence: Fear of Current or Ex-Partner: Emotionally Abused: Physically Abused: Sexually Abused:Review of SystemsConstitutional: No fevers, chills, weight loss or night sweats..Eyes: No blindness, double vision, or glaucomaRespiratory: negative for asthma, chronic bronchitis, hemoptysis, pleurisy,sputum production, or wheezingCardiovascular: negative for claudication and as stated in the HPIGastrointestinal: negative for constipation, diarrhea, melena, nausea, orvomitingNeurological: negative for dizziness, gait problems, headaches and seizuresHematologic/lymphatic: negative for easy bruising, petechiae, or anemiaBehavioral/Psych: negative for anxiety and depressionEndocrine: negative for polydipsia, polyphagia and polyuria and temperatureintoleranceAllergic/Immunologic: No seasonal allergiesMEDICATIONS AND ALLERGIESALLERGIES/SENSITIVITIES: No Known Drug AllergiesMEDS:Medications Prior to AdmissionMedication Sig Dispense Refill Last Dose albuterol (PROVENTIL HFA;VENTOLIN HFA) 108 (90 BASE) MCG/ACT inhaler Inhale 2puffs every 4 (four) hours as needed for wheezing aspirin (ASPIRIN) 81 MG chewable tablet Chew 81 mg daily atorvastatin (LIPITOR) 80 MG tablet Take 80 mg by mouth nightly bisoprolol (ZEBETA) 5 MG tablet Take 5 mg by mouth nightly chlorthalidone (HYGROTEN) 25 MG tablet Take 12.5 mg by mouth daily Ertugliflozin L-PyroglutamicAc (Steglatro) 15 MG TABS Take 15 mg by mouthdaily ibuprofen (ADVIL,MOTRIN) 200 MG tablet Take 200 mg by mouth every 6 (six)hours as needed for pain losartan (COZAAR) 50 MG tablet Take 50 mg by mouth 2 (two) times a day metFORMIN (GLUCOPHAGE-XR) 500 MG 24 hr tablet Take 1,000 mg by mouth dailywith dinner montelukast (SINGULAIR) 10 MG tablet Take 10 mg by mouth every morning nitroglycerin (NITROSTAT) 0.[address] 0.4 mg under the tongue every5 (five) minutes as needed for chest pain [DISCONTINUED] atenolol (TENORMIN) 50 MG tablet Take 50 mg by mouth 2 (two)times a dayPhysicalVITAL SIGNS:Blood Pressure: BP: 100/65 Pulse: Heart Rate: 57Temperature: Temp: 98.5 F Respirations: Resp: 16Admission Weight: Weight: 94.6 kg (208 lb 8.9 oz) O2 Saturation: SpO2: 96 %Today's Weight: Weight: 94.6 kg (208 lb 8.9 oz)PHYSICAL EXAMINATION:GENERAL: Well developed, well nourished man in no acute distress and oriented toperson place and time. There is normal affect and thought process.HEENT: No arcus, xanthelasma, or scleral icterus. Nasal and oral mucosa pink.Tongue well-papillated.NECK: JVP increased. Carotids brisk. No lymphadenopathy.LUNGS: Resonant and basilar rales.CARDIAC: PMI normal S1 normal S2 physiologically split. No gallops. No murmurs.No rubs.ABDOMEN: Soft and nontender without hepatosplenomegaly. Bowel sounds are normal.PULSES: Pedal pulses are not palpableEXTREMITIES: No edema. No clubbing. No cyanosis. Skin warm and well perfused. Novenous stasis.MUSCULOSKELETAL: No deformities, good muscle tone, normal range of motionNEUROLOGICAL: No major sensory or motor deficits.DiagnosticsLABS:BMP:Lab ResultsComponent Value Date NA 136 12/14/2020 K 4.1 12/14/2020 CL 98 (L) 12/14/2020 CO2 24 12/14/2020 ANIONGAP 14 12/14/2020 CALCIUM 8.8 12/14/2020 GLU 107 (H) 12/14/2020 BUN 44 (H) 12/14/2020 CREATININE 2.71 (H) 12/14/2020 GFRAA 29 (L) 12/14/2020 GFRNONAA 24 (L) 12/14/2020BC with Diff:Lab ResultsComponent Value Date WBC 15.0 (H) 12/14/2020 RBC 4.86 12/14/2020 HGB 15.7 12/14/2020 HCT 45.8 12/14/2020 MCV 94.2 12/14/2020 MCH 32.4 (H) 12/14/2020 MCHC 34.4 12/14/2020 RDW 14.5 12/14/2020 PLT 100 (L) 12/14/2020 MPV 9.1 12/14/2020 LYMPHOPCT 10.5 (L) 12/13/2020 MONOPCT 4.0 12/13/2020 EOSPCT 0.1 12/13/2020 BASOPCT 0.1 12/13/2020 NEUTROABS 12.3 (H) 12/13/2020 MONOABS 0.6 12/13/2020 BASOSABS 0.0 12/13/2020BC without Diff:Lab ResultsComponent Value Date WBC 15.0 (H) 12/14/2020 RBC 4.86 12/14/2020 HGB 15.7 12/14/2020 HCT 45.8 12/14/2020 MCV 94.2 12/14/2020 MCH 32.4 (H) 12/14/2020 MCHC 34.4 12/14/2020 RDW 14.5 12/14/2020 PLT 100 (L) 12/14/2020 MPV 9.1 12/14/2020MP:Lab ResultsComponent Value Date NA 136 12/14/2020 K 4.1 12/14/2020 CL 98 (L) 12/14/2020 CO2 24 12/14/2020 ANIONGAP 14 12/14/2020 BUN 44 (H) 12/14/2020 CREATININE 2.71 (H) 12/14/2020 BCR 16.2 12/14/2020 GLU 107 (H) 12/14/2020 CALCIUM 8.8 12/14/2020 PROT 6.7 12/13/2020 PROT PENDING 12/13/2020 ALBUMIN 3.4 (L) 12/14/2020 GLOB 3.2 12/14/2020 AGRC 1.1 12/14/2020 ALKPHOS 50 12/14/2020 LABBILI 0.7 12/14/2020 AST 3,595 (H) 12/14/2020 ALT 5,219 (H) 12/14/2020 GFRAA 29 (L) 12/14/2020 GFRNONAA 24 (L) 12/14/2020oags:Lab ResultsComponent Value Date PROTIME 16.5 (H) 12/14/2020 INR 1.61 12/14/2020 APTT 16.2 (L) 12/14/2020- Dimer: No results found for: DDAT, PROCALCITON, LACTATENT Pro- BNP : No results found for this or any previous visit.DIAGNOSTICS:IMAGING: Chest film reveals a large heart, pulmonary venous redistribution, andinterstitial pulmonary edema.ECG: An electrocardiogram on 12 September at 1236 hrs. demonstrates normal sinusrhythm with evidence for transmural inferior wall ischemia. There is evidencefor old anterior infarct and there are reciprocal ST segment depressions in thehigh lateral and anterior precordial leads.A second tracing, on 12/13/2020 at 2213 hrs. is similar to the first. There arefrequent PVCs and ventricular trigeminy is present.ConclusionsImpressions:1. Recent acute myocardial infarction, location not clear, given the presenceof a known SERVICE LIAISON REPRESENTATIVE of the right coronary2. Sustained monomorphic VT3. Acute kidney injury4. Ischemic cardiomyopathy5. Acute hepatitis, multifactorial including fatty liver, NSAID use, and shockliver associated with his arrhythmia.6. Acute systolic heart failureRecommendations:1. Coronary arteriography, today, if OK with nep hrology2. EP consultation for an AICD for secondary preventionThank you for this consultation.Steven Chowdhury, MDDate: December 15, 2020Time: 8:14 AM Name Value Range Interpretation Code Description Data Morena rce(s) Supporting Document(s) ID Date Data Source [id number] 12/15/2020 09:19:32 AM EDT [facility] Name Value Range Interpretation Code Description Data Morena rce(s) Supporting Document(s) PHOSPHORUS 2.2 mg/dL (2.5-4.5) L [facility] ID Date Data Source [id number] 12/15/2020 09:19:32 AM EDT [facility] Name Value Range Interpretation Code Description Data Morena rce(s) Supporting Document(s) SODIUM 135 mmol/L (136-145) L [facility] POTASSIUM 3.5 mmol/L (3.6-5.2) L [facility] CHLORIDE 100 mmol/L (100-108) [facility] CO2 27 mmol/L (22-31) [facility] ANION GAP 8 mmol/L (7-16) [facility] UREA NITROGEN 38 mg/dL (7-24) H [facility] CREATININE 1.38 mg/dL (0.80-1.30) H [facility] BUN/CREAT RATIO 27.5 RATIO (10.0-20.0) H [facility] GLUCOSE 117 mg/dL (70-99) H [facility] CALCIUM 8.4 mg/dL (8.4-10.2) [facility] GFR 53 ml/min/1.73m2 (>59) L [facility] GFR ( AMER) >60 ml/min/1.73m2 (>59) [facility] GFR INTERPRETATION [facility] --NORMAL KIDNEY FUNCTION OR MILD DISEASE - GFR >OR= 60CHRONIC KIDNEY DISEASE - GFR 15 - 59RENAL FAILURE - GFR <15 Est. GFR calculation based on the MDRDstudy equation, which assumes a steadystate for creatinine. Est. GFR should notbe used for medication dosing. ID Date Data Source [id number] 12/15/2020 09:03:38 AM EDT [facility] Name Value Range Interpretation Code Description Data Morena rce(s) Supporting Document(s) WBC 9.1 10*3/uL (4.1-11.0) [facility] RBC 4.70 10*6/uL (4.60-6.10) [facility] HGB 15.3 g/dL (13.5-18.0) [facility] HCT 44.2 % (41.0-53.0) [facility] MCV 94.0 fL (80.0-95.0) [facility] MCH 32.5 pg (27.0-32.0) H [facility] MCHC 34.5 g/dL (32.0-36.0) [facility] RDW 14.3 % (10.5-14.5) [facility] PLT 111 10*3/uL (150-450) L [facility] MPV 9.1 fL (7.1-10.7) [facility] ID Date Data Source [id number] 12/15/2020 09:10:42 AM EDT [facility] Name Value Range Interpretation Code Description Data Morena rce(s) Supporting Document(s) APTT 134.6 s (22.0-34.3) H [facility] ALERTED CRITICAL RESULT NADIA (3563) IN [facility] AT 0908 ON 12/15/20 [place] [address] ID Date Data Source [id number] 12/15/2020 08:23:57 AM EDT [facility] Name Value Range Interpretation Code Description Data Morena rce(s) Supporting Document(s) WBC 8.0 10*3/uL (4.1-11.0) [facility] RBC 4.77 10*6/uL (4.60-6.10) [facility] HGB 15.5 g/dL (13.5-18.0) [facility] HCT 44.7 % (41.0-53.0) [facility] MCV 93.8 fL (80.0-95.0) [facility] MCH 32.5 pg (27.0-32.0) H [facility] MCHC 34.7 g/dL (32.0-36.0) [facility] RDW 14.3 % (10.5-14.5) [facility] PLT 95 10*3/uL (150-450) L [facility] MPV 9.2 fL (7.1-10.7) [facility] ID Date Data Source [id number] 12/15/2020 08:17:35 AM EDT [facility] Name Value Range Interpretation Code Description Data Morena rce(s) Supporting Document(s) BILIRUBIN,UNCONJ. 0.5 mg/dL (0.0-0.7) [facility] ID Date Data Source [id number] 12/15/2020 08:17:25 AM EDT [facility] Name Value Range Interpretation Code Description Data Morena rce(s) Supporting Document(s) MAGNESIUM 1.8 mg/dL (1.7-2.4) [facility] ID Date Data Source [id number] 12/15/2020 08:17:25 AM EDT [facility] Name Value Range Interpretation Code Description Data Morena rce(s) Supporting Document(s) SODIUM 135 mmol/L (136-145) L [facility] POTASSIUM 3.4 mmol/L (3.6-5.2) L [facility] CHLORIDE 102 mmol/L (100-108) [facility] CO2 26 mmol/L (22-31) [facility] ANION GAP 7 mmol/L (7-16) [facility] UREA NITROGEN 40 mg/dL (7-24) H [facility] CREATININE 1.41 mg/dL (0.80-1.30) H [facility] BUN/CREAT RATIO 28.4 RATIO (10.0-20.0) H [facility] GLUCOSE 94 mg/dL (70-99) [facility] CALCIUM 8.4 mg/dL (8.4-10.2) [facility] TOTAL PROTEIN 6.3 g/dL (6.4-8.2) L [facility] ALBUMIN 3.1 g/dL (3.5-4.6) L [facility] GLOBULIN 3.2 g/dL (2.7-4.3) [facility] ALB/GLOB RATIO 1.0 RATIO [facility] ALKALINE PHOSPHATASE 50 U/L (45-117) [facility] BILIRUBIN,TOTAL 0.7 mg/dL (0.0-1.0) [facility] PLEASE NOTE:Total bilirubin results may be falselyelevated in patients taking Eltrombopag. AST (SGOT) 969 U/L (11-39) H [facility] ALT (SGPT) 3334 U/L (12-78) H [facility] GFR 51 ml/min/1.73m2 (>59) L [facility] GFR ( AMER) >60 ml/min/1.73m2 (>59) [facility] GFR INTERPRETATION [facility] --NORMAL KIDNEY FUNCTION OR MILD DISEASE - GFR >OR= 60CHRONIC KIDNEY DISEASE - GFR 15 - 59RENAL FAILURE - GFR <15 Est. GFR calculation based on the MDRDstudy equation, which assumes a steadystate for creatinine. Est. GFR should notbe used for medication dosing. ID Date Data Source [id number] 12/15/2020 08:17:25 AM EDT [facility] Name Value Range Interpretation Code Description Data Morena rce(s) Supporting Document(s) BILIRUBIN,CONJUGATED 0.2 mg/dL (0.0-0.3) [facility] ID Date Data Source [id number] 12/14/2020 08:12:03 PM EDT [facility] Name Value Range Interpretation Code Description Data Morena rce(s) Supporting Document(s) APTT 16.2 s (22.0-34.3) L [facility] PERFORMED BY ALTERNATE METHOD. REFERENCE RANGE = 24.7 - 33.3 ID Date Data Source [id number] 12/14/2020 04:54:41 PM EDT [facility] Name Value Range Interpretation Code Description Data Morena rce(s) Supporting Document(s) POC NOVA GLU 175 mg/dL (70-99) H [facility] PERFORMED BY [facility] CLINICAL STAFF ID Date Data Source [id number] 12/14/2020 12:31:36 PM EDT [facility] Name Value Range Interpretation Code Description Data Morena rce(s) Supporting Document(s) POC NOVA GLU 105 mg/dL (70-99) H [facility] PERFORMED BY [facility]INICAL STAFF ID Date Data Source [id number] 12/14/2020 09:18:33 AM EDT [facility] Name Value Range Interpretation Code Description Data Morena rce(s) Supporting Document(s) POC NOVA GLU 153 mg/dL (70-99) H [facility] PERFORMED BY [facility]INICAL STAFF ID Date Data Source [id number] 12/14/2020 08:58:22 AM EDT [facility] Name Value Range Interpretation Code Description Data Morena rce(s) Supporting Document(s) &PDF [facility] WAUEJz8dCtVOSoAf38/KUQcaOOHev1BaODieZAc2ODprHJGsV1PtbQvlWSrDDsCQNX2PIH0IKVjPYBwM yZW [file] zsY3lhREpkUEV4H36G4v0i53617s505wX7tVargcKG 26TKPmTLgBneQDPfBNoMmvWBpwGoaretK3OWcCUUO4che7igV6pm/branding specialist/ndTVLJJa9nvxFxv1M46+18K [file] AgICAgICAgICAgICAgICAgICAgICAgICAgICAgICAg ICAgICAgICAgICAgICAgICAgICAgICAgICAgICAgICAgICAgICAgICAgICAgICAgICAgICAgICAgICAg ICAgDQogICAgICAgICAgICAgICAgICAgICAgICAgICAgICAgICAgICAgICAgICAgICAgICAgICAgICAg ICAgICAgICAgICAgICAgICAgICAgICAgICAgICAgIC AgICAgICAgICAgICAgDQogICAgICAgICAgICAgICAgICAgICAgICAgICAgICAgICAgICAgICAgICAgIC AgICAgICAgICAgICAgICAgICAgICAgICAgICAgICAgICAgICAgICAgICAgICAgICAgICAgICAgDQogIC AgICAgICAgICAgICAgICAgICAgICAgICAgICAgICAg ICAgICAgICAgICAgICAgICAgICAgICAgICAgICAgICAgICAgICAgICAgICAgICAgICAgICAgICAgICAg ICAgICAgDQogICAgICAgICAgICAgICAgICAgICAgICAgICAgICAgICAgICAgICAgICAgICAgICAgICAg ICAgICAgICAgICAgICAgICAgICAgICAgICAgICAgIC AgICAgICAgICAgICAgICAgDQogICAgICAgICAgICAgICAgICAgICAgICAgICAgICAgICAgICAgICAgIC AgICAgICAgICAgICAgICAgICAgICAgICAgICAgICAgICAgICAgICAgICAgICAgICAgICAgICAgICAgDQ ogICAgICAgICAgICAgICAgICAgICAgICAgICAgICAg ICAgICAgICAgICAgICAgICAgICAgICAgICAgICAgICAgICAgICAgICAgICAgICAgICAgICAgICAgICAg ICAgICAgICAgDQogICAgICAgICAgICAgICAgICAgICAgICAgICAgICAgICAgICAgICAgICAgICAgICAg ICAgICAgICAgICAgICAgICAgICAgICAgICAgICAgIC AgICAgICAgICAgICAgICAgICAgDQogICAgICAgICAgICAgICAgICAgICAgICAgICAgICAgICAgICAgIC AgICAgICAgICAgICAgICAgICAgICAgICAgICAgICAgICAgICAgICAgICAgICAgICAgICAgICAgICAgIC AgDQogICAgICAgICAgICAgICAgICAgICAgICAgICAg ICAgICAgICAgICAgICAgICAgICAgICAgICAgICAgICAgICAgICAgICAgICAgICAgICAgICAgICAgICAg EQIbAXXpAMPcJKMrCHg4R8yjFNCvLZFaXJ0aAUt0Gw4+RRkNZzPgGBK3bkLsjJ2OYR0ki2UpYLhlSETu g7BkLTd8PN2HCNTrQDsoAN7CPJerpm3ZWUDxASMbvM UJs4nkRkGxIFZ0UWUyXdnyKP8VCYNlY9fefmPiIRQvYFKVSTfbPEYXHJ9YErIeH2WpeC32MXAHAq4+DQ kpzdTmMdtIUnM6NFJws4DbFZx6AJ0UEXYkACdoIV3HXVFypL4sBPzzUH5NIlOyEYXkLWNXRbMwD37dnY BmECt0S9YgVzAyYBCdNwekRDXlIRjmJoOpALRqZxPe DQogID4+ID4+ACmvNR8UTSpejgCbTQEzGb5IXNWzNUU6DEZodCRdPhHfCBWRGHfbQA9ZjYDeCBD9wJ3b WLjwXFJgQWSqE9sBIfAuvFgpPE74cQwcceMbgURiDOy+Uo1KLK7dp9WpWHy2hsLuZRmaMBJ6MOcnJOHp UZOeRDQrQWM5VXS0HMVDMaEyNFOeWJZjWJimASBaIZ Ivyf6KTKHjKNXlLGGkLlHeZYBhYSKoGOvcQCPlSLJ0KPohAUTmVCPxPW0HBhTtWYWcPZXyPRymMCRcGQ Pnxf8XSFEpAYIqWyRgVQEwQQGySMKoTDtqNSLjHJHlZqD9OXOhEBVwVD1EBaVqMDSpSMJ9GGIlTIAkMR Kxzp3IWIKsFUFySRm9CDYwPMBfBWXpSMdhEFLrBOD3 FQR1FRMwAETiDL8RAdAvWWWkBXYbAZJaIGKjHRCsqc8PCLQwPJYbKvQwSQJtBOLbUBQfCHmfBWXoAFX2 KKoxFPEzDKVjJH5GSwSaESUySDulQDVaKYHaNOOibe6NKCYjTHSfSxJ4OGMqPWHdYBCqQFdnCSApJWMj DQV3DJHjAZJqWE3FCsPiXZFcZKP8COHpRDTvSQWwtz 8PARLiVZAdOly0JSWpIZOkAOAzPAmoYSNtRWZbZjV1ALVdVPCsRB3NMjFeVYNlOBMjYBAcQPYuPQWond 5BTBPcLYQmNAJ5VCUqOTGlLLJbTIvkVAKgTCR1LHl4ZZTwRTMbKP2OOfUlDTZnWMY7PVLqAKZyLHVdwr 1NJGMbJTScEAdzCEHtGRCdSIGwJPjkOUTeJCU7IXg0 ATAhCIFtAY0QKzWiGMEeYtS0OwTvTNDjAZPxuz5UJCFpDTFlHSf0UTByBWQiWRNxRFn6vdBfwJSjZBx2 IF2NC8UffiGzZurVRt3Xh079MOP9LPDqHy6OP5viZm4jEQPjZPUYXz8KLBd9QZRxEuteOSp5JRPzMvF5 EBV1HQDsNxb0FlZzAScpJPm+UCguNGT8QgH2QHvlDr G3MPU0VcdhPJSjMMjcHaEmSFNyIT8eWXJSKv9+GIcuiIBzeUxqBEIBAfV4CPMsGWzoXHOCYk1M ID Date Data Source [id number] 12/14/2020 08:33:38 AM EDT [address] [id number] Name: DILAN KIRKDOB: 1960ex: MOrdering Provider: GRISELDA Gonzalezhorizing Prov: GRISELDA Reed Provider: Procedure Performed: / US RENAL KIDNEY BILATERALExam Date: 12/13/2020 16:01MRN: [id number] Number: [id number] Class: InpatientAccount #: [id number] for Exam: akiTechnique: Real time sonographic images were obtained.Comparison: NoneFindings: The right kidney measures 12.5 cm in the left 12.3 cm. The right renal cortex measures 13 mm in the left 17 mm. The left kidney demonstrates mild hydronephrosis. No hydronephrosis on the right. No stones in either kidney. There is a cyst at the lower pole the right kidney measuring 24 x 25 x 24 mm.The bladder has a volume of 312 cc. Unable to demonstrate ureteral jets at this time. The patient did not have the urge to void so no post void residual could be measured. A small right-sided bladder diverticulum was seen.The prostate measured 24 x 28 x 21 mm.IMPRESSION: 1. Mild hydronephrosis of the left kidney.2. Small cyst in the right kidney.3. Unable to demonstrate ureteral jets at this time. Small right-sided bladder diverticulum.Report electronically signed by: CONSTANTINE JANG On 12/14/2020 8:33 AMWorkstation ID: [id number] - [id number] Name Value Range Interpretation Code Description Data Morena rce(s) Supporting Document(s) ID Date Data Source [id number] 12/14/2020 08:31:00 AM EDT [address] [id number] Name: DILAN KIRKDOB: 3Sex: MOrdering Provider: GRISELDA GRIMALDOAuthorineno Prov: GRISELDA Reed Provider: Procedure Performed: / US RIGHT UPPER QUADRANTExam Date: 12/13/2020 16:01MRN: [id number] Number: [id number] Class: InpatientAccount #: [id number] for Exam: elevated LFTsTechnique: Real time sonographic images were obtained.Comparison: NoneFindings: There is gallbladder wall thickening up to 4.7 mm. No stones are seen in the gallbladder.The CBD measures between 6 and 8mm.The liver parenchyma is echogenic. Within the liver there is a hypoechoic masslike area measuring 46 x 34 x 26 mm, presumably a focal area of fatty sparing although difficult to exclude an actual mass.The right kidney measures 12.5 cm. There is a cyst at the lower pole measuring 24 x 25 x 24 mm.The pancreas is not well seen. It is slightly obscured by bowel gas.IMPRESSION: 1. Gallbladder wall thickening up to 4.7 mm, nonspecific. No gallstones are seen, but given the wall thickening, cholecystitis cannot be excluded. If cholecystitis cannot be excluded clinically, could consider HIDA scan to evaluate for cystic duct obstruction.2. Mild dilatation of the common bile duct.3. Hepatic steatosis. Within the liver there is a focal hypoechoic masslike area measuring almost 5 cm, probably a focal area of fatty sparing rather than an actual mass. Liver protocol MRI could more definitively exclude a mass if needed.4. 25 mm cyst in the right kidney.CRITICAL RESULTS. THIS REPORT WAS COMMUNICATED BY THE RADIOLOGY DEPARTMENT CRITICAL RESULTS PROTOCOL.Report electronically signed by: CONSTANTINE JANG On 12/14/2020 8:31 AMWorkstation ID: [id number] - [id number] Name Value Range Interpretation Code Description Data Morena rce(s) Supporting Document(s) ID Date Data Source [id number] 12/14/2020 07:45:05 AM [facility]T [facility]FORMATIONPatient MRN Name Date of Age Gend*PT [id number] Dilan Kirk 1960 60 years M IPPT Location Admission Date/Time Visit ID Attending [id number] 12/13/20 1238 --- Crystal Neal MD([id number]) EPI ID CSN Admitting Provider [id number] Crystal Neal MD([id number]) Attestation signed by Liliana Harmon DO at 12/14/2020 7:45 AMII was not present for procedure but was available. I agree with documentation.Signature: Liliana Harmon DODate: December 14, 2020Time: 7:44 AM --Invasive LineDate/Time: 12/13/2020 7:02 PMPerformed by: BUZZ Chavirauthorized by: Crys Chavirathesia:Anesthesia:Local Anesthetic: lidocaine 1% without epinephrineAnesthetic total: 2 mLSedation:Sedat ion:Patient sedated: noProcedure Details:Indications: dialysisSkin prep agent dried: skin prep agent completely dried prior to procedureSterile barriers: all five maximum sterile barriers used - cap, mask, sterilegown, sterile gloves, and large sterile sheetHand hygiene: hand hygiene performed prior to central venous catheter insertionLocation details: right internal jugularPatient position: flatCatheter type: MahurkarCatheter size: 13.5 FrPre-procedure: landmarks identifiedUltrasound guidance: yesNumber of attempts: 1Successful placement: yesPost-procedure: line sutured, sterile dressing applied and Bio patch usedLine flushed with:salineAssessment: blood return through all parts, free fluid flow, placementverified by x-ray and no pneumothorax on x-rayPatient tolerance: patient tolerated the procedure well with no immediatecomplications Name Value Range Interpretation Code Description Data Morena rce(s) Supporting Document(s) ID Date Data Source [id number] 12/14/2020 07:39:37 AM EDT [facility] Name Value Range Interpretation Code Description Data Morena rce(s) Supporting Document(s) EKG [facility] YSIGZz1bZhIUNpYbj4WrRoGzWTAlEX1sppv0Q0B3zTHuE2PxwEZwb1sdZ8IyI3EtSLReKHNISR0CjRXy jb2 [file] QRaZSn391UZDBiFAT+joiner+BfCHSWct83hEjbKuPg5BNrFyPPGtNlibEUys032EBUG0lfMswDjQzPwJBH lRmKXa6JzxGAYMnIwl7qCaDwzGYsJBN7zBb8fn8djeY+trHdhKOC29yXgfOsxIm0cxZ4DW7hfmgPWRjK a/GEPdKl6gLEahyB/HPwA6Bp3lGRj2C6uA6b1XtCSk oLJ+xJ4nVyUnm7kaTziEpqPpwGtAkkkfgiBjJ+drzT36RkSJadNWX9NM/8E3/s28PJ0Eqc0fg/cjLiCH GhI1O5yQ/4JzrwT/iR67R5yp9yAN32e4Oh+XXeNsxzjS81rWtJG4uE029l3PnRK7Ph6v+8iT/wNlWarA oo5YMG5mIjs/rPd5EP0EoxfmQRbyrRybVv+ERvqoMu EhAV0FIGuud/2Kmvza4rIrcjy2768StJrxdvRO0UkAxmAdggqvaAGOg6fobfSoXxTQltO4k3wDJwpXgI gqD7fLxRXkIM9HaCLohUvi5ECgWFBWmP56C1KOkJSJhFryWBqaazOW6135p0kuo62tv4ZZX9JulHd2tZ Djj1q8QoXjD82AoqwF7VHnboJyvrIc2Fj28cOVUx5P NLBI1L6/SzkoAixI4nHGdAQ8robHUvtmOEjREUAkmuxlf/qO2lFx0YKOqmE7piD0cngkRG5gW887alRl Hribmb+wLIYFVoUbwXS6b3H5Of1Op9N8o09Ph0iyL4LtcG2GeiI/MFV3IoQ+auONEVJ/mOvAX0KGszwO rcfZdendThSfztb6KhdDmQvXvBVT8Mdx7qJtJEkLAE G74c0Taa/YGrDlztQHGiu/oDxYnuagfuylF/5PzT64zddxpSHl9OFLKPqslq31y26A8zKEf0IEWCpScP aawJFx6WvDgwdMFTI4nDYSrauUmSayjSGESPduHIR8AQOB0l3CwnHF/qE4/6xKP+4MgtIj+7Szt4L3v1 9xMmwI9KEw1nX4EWAIx2PfvIuIdnsnEDyZDdZJeuUq 0jdrA/gLG81Evh/mTPtD+xg/3JXNiKE/fish bait picker+P+xB/fkopowb29Kb9BF/q4bV9Xoeb5qxXBqRspWGYSXL [file] frd3fwahtdM5EK8FR6DTiJJ1s9jIWUi3H37J4A/Tiera/NQ4pX4pKCio/yxxAEpfyxfjmxAZMS+u2r5Yx aM7ynlG1tgmJ+Idgi1UNI+PNXjouozv9gT1J15KyhS 653nrolv5i8zIoJO5CkH0wcwh53fJ6474yJhh8TLftr1I5Fcd5QU1hBVEa9gYzLqpoD85ApsTgd4B1od b2j7pUzYE+PE6Bw7D2uo7Hv8E+ME1ji2yylVS1uA9VivJJ1tO17EKcVsCuzopBXTEL+BL4liQjH/Cwa7 YH3tT3zg6A2HPbvJeH5IKZahYreyol+DoL579DgTsp ZgUWca2c5igL1I7n3VpywJo01k+3adU4397Dx6jfbnOFp1X6UvVjXaI0g+p3B/CKrKlicJwElK4h/lr1 hE/M127B/Qhmbmf6z5mcGPvU8mFYdX35NhzT+7E5a00e0Bfl0SFeLvrV2rD+E7r5vClXzbfd7mb5iFHC wPE77xaNmhi7RU+sGaNpgB6MKwY93LznrQ70VrEn5y 6wYzmFZCTA279gwR96BPwL6lCebv7y1gtwCULFxzLDJBd4pSJp+DVf5cu/zo7KGeAuBGyVY/LF+x8mnb wx/LI1FmTEcpZWwihY9rK1UHBTRieh/MQ4A17PIHKFAHkyws/LSxvgt7tFpjjuQRuD2glHMM+YWO6jlU nzIgoSGaKpStp12bCTq9T/rj28UqM1Db1B0ommt61W VCWV53AVskJ+VXLavuWD9uzZfr3Ck3I5K0dRftbcqxRB/50IY8pZ9yz0VdbYauc84wn+WjVnZxusEuTr dT9tK6/ZICJWM9bZWTXlN70Q8g17hkpKlQlDEBW49uK4LYBMqQRLCeid1w1XVNOl8RKaRlIG11deH6l/ yxxE2k/VR6ezlxvyvO+WOJYvLHEsXkjyXus+SP5SvW axhkbnUVbr7TnZxKG3fJ8XwRqE46v0W/lq+G5onMWuxeOTTuO+9UI+E6lvcVwU9UHXu/+1//6z//uC6L O7r6z//553/87/Y///farm operations manager//3nv/7zL0//Q8njn//+l6u4/DMarSSIzd7lTHL27y6Sk/rZh8sgdG3itZS0 [file] bm7hThh/32xbVvufXvM/Ua3onp5lEPtcS2zk82p/vascular sonographer uuE3CV/99cvXerb+lo1+1+eb0KsDr6xZAy/qFys5wvth12R9z/EJ4vUv2yWm9vK7tpY9UvnL/qoifzad uhjrvalj25is+4ma73sb7jPCYv834Qbs0ArZ/YP2b3+RPcpgXz637x4D4iTANF1/vZ5/+KvnzLeg1i2I ndvfanP2+M+FdhbqG/Oib9EEntr9GJt/+2bEo81Cf9 H/f582T7k3MPWaktpZ+0IuPhKyV9UIN41+twmKcbb6BK59R+D0yU5fky3ypUjohx51e20531mj2jdh6W zPyhp96gQ/zkiEdh2cXml03JdcH7C+6m3a5lD8j+C516Hd/n0ojY6q2M4hw/3grexWkMxs3K8jumt6w/ k3Oyc1wx/1d3kF+Brd5q+/KzK+xK+/b5U7f03NK7r6 LGQ7kPdr9g3d4Aa/u/3uuMvr846nduNiaS+Qf/tbNPz6++o48m9/KxzEr7/f8LC3K6YSe0rCCixaHj5o Xd+oy7SSHsth+7s+kY/89VI09xiWddnTrnt674qjqLlnuHeVa0F/2UytgvvT2n9Ec5e2B5cGwxRu9n3V oEIh8uGwl/o3Fhk1Feyg87c6N08LxjW8mQ/ij0NS5s OD+N3A3gi3z7N4E4H4McN7rK/A/k5F7wUh5v/8p7QJf5utopujvl+Y7OpF3+oppl1C4vEX7/Of49Gi3y 5KC83e4y805hq3L6D/cXg+//IljZfv/h1pbTy+ni7yoWKJmd+//UNxvfr866jU/FiA93l+/zaSLsBp63 cxolVjfUYfSWaQOlfmZRI6w0LSyz552qK8DlayNuOj nXr+yo5rMEW89dKG4a6mrkHr2616/Yr4RWg95Kkvwa++1szPa5248vlMwMl36fu6bwuW+eS5d7kl/tpZ ZcP4y9/HEeQgUfP8MeoDxK96YeF99/d3tcR2My7wKY25mLQj+t1xOY5d1Bl5XkO+eGx6mllq6abipNRV pb/P52v/HOnsLt2461N3Wxqlo2D3M5kr96jh2rtHJ5 /F0zt/g4esJl7Hjd/4sKviw9g15aBE5Mx97fNJNUkuK564Rq+z96/ZJd871AQUU/B2dOQ25m34lQDrmd r8PWnkkH62CbXzc/lyz0NT9egHThPAd+MVLxPrmT0i5kNTJ58IxuboTkCHxv+o3/cZD61JakgxFW5qk8 iosa7Udmz3alrqwLRF/V68PXHZ69DM58xpBx/w3f4/ 1wJCcnmf8e0qU204BT//3QuV09ULi0LS/QK+9rTWa16Z99O6iaaW/LgiP4t5prl8Ob/r/6NrtlHnvya+ zaPioB6obEZm/w4p85uyJ/FVvasfbtGN/tjp1uo0Obk1KhqeC87X82i8mUVDx+Nop+/cj0Ex4UfXryuS D1127fBhp/fatyQJSapzT95eaiWFB/ndi6+mcDio8x y7+KxUrDpg9ed2+IdELvwyuVG055778m272r7fb/Pvs0nDd4MHAoCkgnd++kF+uA84Adw2j7wfx1yoX+ nyaWtN0kUW1w6Gw3304Vcqxon/C0652Tb+vhYYr7/H+w42l3qo8hdBg4Y+7W/RdkAP+pxo7wQlvvrx/x zg7oIsW3DwLVmYJHx5GAEE+bkbQlRy4eZC+/3iq6U7 nz/2l41bLlYKeLN6ZjPqoqp/UxNL90ODVbxG/Dk0Om5t2iu54lfr53s36f6/tbCotTdHz+1GoFX1ZULb i46e1Fm7kf6vLkSkrtoPE6tp3ssA/2Ka1Kl8n2D+I/8gv/lXc/R5NZN/fDYIl5kBg6wqGt3erhFuwciu J/Lnd0/B9D5Jc95/jrSpqZas44Qf4e/pHDz6iRzp8G 47c61X8SWhlGn/psnFu3juJ78Js4Q/lX0B/8nilw4GY+gb2ce5tlIn5fqxw+hv8a+qNnbtSp3X98dC62 V/J34TkdFqOxBzaUJ9UwwB/Z39/zsn+dsW18r6dXzp6nG/08R9ek5f6PQxjP+5Ud+Rj/4Gbch1E6/Mariela Af/V3o72p+4TyYm9lQ22f9/BpVS5A1ffgY+evDgXMt yHg3Bh1/MhCz1K2tU/Rra3OQU/IZqse4oN/43Nn4CBXgrG87qBqumNo+1bT+35+mqI/+Gvpr2L+20I6h szJkOAf3df+mob+G/hrWs2F+E1/zn2Zn0A7l48PxxnuRxGP7yG3WI4DuMa7C/ppXeo1Gf0f+Hyd8t88b E19V/kb7G+3vhZo9rvmQ9+HqHO0b6gwZb7036Mzwt/ 5NfJXtJ//iBFu7FhKB+ayWk5jQ2ie1exe6Pe4ryp64RwuKLe7sxxD/dcLpTop6Jq0Hunnut4E+tv419W /yr6o++acxWs51W/yEdf8MnzbE/h70F/lqkbEw82rn0vq4D824RFGO+do5WrgExt/GRkA59slth3K/Bt Zz9P/wVYqZwebq3A1TyO3PjrFA/Bru6sMBFzjPKvpX gfUcuI+n0ZfOKrIuq4BG1y7LxRVds9ziSCDJc16XwunDgEmyiK/xLua5m9N3wyo6O/k8petqMyJtvJuG 8xoH+Qft3/6efLfndyW+czoLc3BYHkY7/C7p+7bYD16GY8Dh2o0s22Oqqyj2p/4K+la0vqQ02zg+zpKW Am2qreHY6UWy3//ndyiu3o6i5klf3yaORmChbt1/l/ S0sQEjHyHX6cxVOl11rTO/tcC/WsqBzvAoYp7pA/FVjoP2/l2K/gJfLeCrNTG/ia+zsGYP7eMr+z5as/ mxC/cpWtve3DJgxxsIw+LdjjAvIv39S+K1A2nKHD+vL3nFa1cG/Ca+hmdQz8fzckm5coSyUo6Z7XUEaV At9Hf1+wnB4428TqitgK/9uzC/wFcL+HyEy8CsM9qA /vgt9TLWLgis4w/Qow4CasBsMPg5xSteEu0EZjhvNi5xYwk/8fMy7F/CezpaT6b+Al+yrJi5M3bc9tM2 nTbAi1dB+In2da3kkgSp7cj7yXWvxySuo8+516V2UfK11lZ3Hh5mUue8KA0jD/7yFOeo7t4490/Ebenezer+8 79+V+CrHyjG/ia+ObzHYiv06kmyY/Ca+phqcH8lujw 4bxxrbZr1spxz1Xp3kgGe722pAo2B/F1+lzOLq/uvWekb+ladcnsxV/P+ef/7JltfKsVW1Zu3GvhA+qv yWp1yV/5KbXI1/6ZJ6txopcKjlTOy4F+34aNoc+Ru0wk0IYd5/bFB3K50ZK6Vju7+Sxec15hR5hTUbsY T65wxphzi8tlcvtfL+A1+unZk8f2uwoc9V3opiRB4t MHy41y3pZ2MYZ9mN+EdJlaB4b84tvqCut9SVTY/0D1bb1oaNz548Ck2+Gs+esc8108ijmUU/pSn2p4Sh 72xI03c1+n/BOuNZR6bA6L4/u95QHn2hoz8gT425coL43rJ/SpdvruP6BaRhdUPxauH/kYF/NdRdm4re SSv+Vdbv/1+T/l+jiR6fHxwvnTVdD04p6z9Ryu1/0L T/754pe4gww3dB463un5FG/Kurpf/z4OUsjKtbXW30Mxy8s+06xbepgt1/+Wfmu7/+fs+//LvHr3b+V/ /XXy/aDtq/+/kiLI0gasfzi9C+FXr8Pc/ev1ctv/bj1cp/tX881LumC7093eTgg0sh1itohlvoP1lzU8 vq+EP2lap8xP++zquFw201+F/+5T/qGG76KbvRK95a tuSIe6F/fdXwv+fLf66+CE7b4OgcWhb+mtijviJ301nWE2srH1pYvCp9u7Xb0Yo7ZmOrto+r+XW2+j4y yAdtbbTT+uj9Dz6y0auJZy7us/XcvyDqjsosu0k8/pSHO5ed+Rba8AaD+Mqs/rmBZeLk12Bt/zVbaN++ +6IUF2Y82e5k1/vXgK/M+v41a/xs1v/7V7v+7S9rvG G78bPt/t+33fqElvgqadjadCa+xrb1neGqNCkXx7ktokln1nq57i62dmx/9LuWGcq65mdp8Gh4ihGg/6 Cd1t+4ivSv/tFV78PkXqstLa2Ff7ookq1yxGGmgI4RH46f4ZaVZ100dH6jsWN3UXw3/p0tF1/XoLc33n f4p6lXS63O6i6KE6+6muQiR6aD4UQtNvuHm3xMuW0s tocxZ6otqkn/8+riq5d/+2rhOiKnjKtzWB6YbH/R/u5z9aC/Z742EsBugAm1xru0dUYqZK3AoiEiKu3U V/Fb15kdm/iN3zxhN/FVrv/A+ZpytmrAb2K62drl9lcMnEXa0m9O3gnfZu0MLDM8UkuqEfDnW/4ezZ/c o/VRGm6xd3+sFi0YVu5/3uBs852+lWZ+69ej7hsdM/ EXWAx7Y/kb+a3/dSSsRdKOkftRM2WjgYASD20G/ZaW72/p+2hLy/b8WZ8Xqn+qDvoL/fYN/fYN/fYt6K +nn2YXshf+3ZY+opawm3gG1t47M/9YbCPVf9B8EF/87NlkU97nfcpX7cdh2J/qacMJl21cE11liAzd6o 3+1Qb/aoN/taF/vaHn5YF1+z7aGmi/+aY52r40yq++ Z//m04r46n7+1Qb/as/m52zoX+3Z/Oc9mx+6m66AoDvn8XbV90g36o62cU44RW/ejwnib5gbyqnpf6R+ 5DU4wX0V/dZe9gT8o4ya/o4e76O7LVyC9c2bng5KLk4zR+lelBk98J/2wnoG/8kqbadmGr9oL/PrtqG/ 4fzcO93g4xc19qyfrCU/gArUT1c1VqOo7Sn54QSxYU +G+AQbN2kiocxqZSl5y05UgLn/H+2N+c4Ns34QU+7d/Bf2R21vn3qhmv9YXk0ppLUfdpbcmii44x/d/4 Ve6hD0l5+3IR/cG/3drU+6jqPp1Y/ayb/KcU7+1Dpbxyy67VKurt/7d0M+rO8mJsiH+dL33n9zD0+99T l4x03v0yfz860P3//7G/VX4x0I9gu/9/fB/K2NT9hw t++D+yj5V/nd5F/q7KB4NptrS/c2cQ1Q1fX72/xUkCCcnm9Z8vbsyQ0S1m+PT/Rssg1uEyW5Y/p/fwfW M/TbN/TbdyjqY/5E2m9kfTXf3h3FdXhenQiBE4w3g+OwktM32WyfW3U9DsDudV897DQS07wMg78hY0B5 rQ/du60sUx0/Tz9oN65/HfjKR/NzfBi+2/Pro+9fh3 zQR9+/Plr/3fiWS28H0WRhG7kTDdveCm1pBSiC/f7/iLn69fL8WDbGyvz9H/NSG918+Hank+3HSmhfJ45 +Rit3LiTGmXKh5ooEzMld0ngj0Vv670rgbPihFfxu2N10NF7ik1z8rC/6HcwidrlqY0316v3MeH93r/Q I0C6ishklXhg/t9eaIk7f60gMQIFpJu/K7M/Z3v205 nwaezh141zutnRd5//pc+G7rA/s0tL/R/e9APP27Xv92hswMHyKnpcg+pCf/KttcrR/rq+8IqNQ7cUs/ qvLTPiXzb3+rzu3v/ef1NVG/1vq57pk5fkG+Jn9l0bmEvv2bcSd5Sur45PKz7q8Ur/gq/4J33lyevd62 67k+U30JeeF/+Orc/1C/+Orcf0+/+OrVv/zJy//0i6 /b31aznjj/ZLfmtzvwlZd+e34L+9ewnq3/l69yoyVwOxp0u9qoW6bjboaB14V/sqz/6+/AcGoo0ad1aP RMGEonbaXik0cqBWg72joKKlr1FqT/F1/R7TaMDsW25tTSK/fFxVczx/biq5f/6+97/gG9CihlZ5/Na+ Ttqd+v8CzrH6T+vDSpRH4pV/67TEqRu6B+Ps066Veg 8298EhtU6d9EW1+96rQ+sDv2r+M+8d1v8QUatrwM/GmV1KYfI7r948x78b+V60604X/Fzug9f42hTH+t /+xi6hJaAW2Lgkf7I3lqsv7qQY4iW0xik2m+04m61wvdH6I+xncbb/hxtHNQ/6B+6c943Pi75ffzV1Bd pApNc107qd1uR+jBp6YVGD4NP+V3E19V/kL7uI/CUH /pn6DyfAlxpM/o/wWPtk/xCLTf+VqHNe1ptkS1Rwal8/eMxpNndH/PaPvfA/7VAf/qAF+k7oiLG6e7dT 86o/+NubOM55agDA5Ie9j1uz9n+H2hRm1qt8ey7l/gSO/fk/cm1aG7lp01yt/pCR7C4j89npI/7a2O9P qbf52frE3p+1UH2aKa91Xg5/Zskdvu5UZ0e8L8dH7c ZxcHSc0nd4uiiR+cmS+of8+ukQVylCF44tok6y/+kwa00tlMM71jl81JHnU+7W+1efsr+bfPb5c1OU/t JZPOwHej+dAM80mpaq4Pu8a+bHvYk/nr3qpNw8y5lTIyBj7frL79PWRthUK9FuxTS/V82qqo8047AW8M uQa+DqBa0woeU/t//yys59X/+2dh/l5e03Ie3Bvgc7 5W48kD/tVZC+3h2PqoSKk/lkzO1zf+96w+b87dp4UC/B85v5CAj6V48zjl4So2qaq2e2wXA7cJGrzLZl CvjqG/hv0L/wwH+NoCg5Ilo89Vp5fkusxtrNPZ58zDH53mIwDEQV+Oz3N1fb+V7e++f0/yq1eCra2nxj Mn8vv+Pcm/yr2Q/hlyL6R/htyzG/t3b+Rj/ya+es/I //L57tLn5KOrm51k0G6mvsdlDE68ZGiUD/hnON7+A95rpnRz6UmsS/rtB/LBU/REjOu3sbKC8iAyI7hP T8kHM7/lgyflgznXF1+lvsG5+Crtzc/FV57ze/FV/guci6/y3+HvxHNQt3d//bu2abbe9QGPUgz19PEQ /+rn5i681R9/p/a19sVpTCn/cHKB4aTXBlz47JsnUj 8PntP/g+s2s9BDwU546eEaT2n/0fycE/2/n0G5ML0buaSrGuoP6wfdI60T8JT2s/1Ey/dPONrp//0DfH VX8oO9Lhg3/3ya1oqH8ydopZ1A/RlZmsoumQ58/sczXdow54EG2yaXCWX4+Zkls6eJsA7K5WsX+CogH4 zCV/nc51WM/l+Ii6/laCjf1gkb1IARQsngoF///ZCJ /LZnD+n//QC+XwQazU6pS+MdhP1GBX7qIlS+c0IO6h/bUf92gLpncpqeDL79SiX8T6Rgxe5m/H1DaUY8 bp/Pof2/ENr/r0W8ng6O7qKYj/a7OUe6BUkl+hxXeeZ2LEvLo0g+LzRm6kmS08e54w73INvAtbNiH9rP Bd93WmnS6b0P+Kqe+/8L0MkGyXF0wS0421sg/Y189H k6d5CTqr3xph+sujo2X0g0xgEJf3cZ+EpJx2XPx8b+lWZ9/a15CN6TcNa3Y4RndL1J/Ur+SbI61ECW3Q lop+4GZgasaCFvDUw0j/CZxq4Ez0Q/cks49sC9/3XwjNQbQT88dqxeweb2QX4946py/dF1pdQ93HjG49 lo2aTqv062IrjJ9DrLg0a07q+L9H+Q852Uw5x2/0Ls /l+K3wn9vbWlNXyi7/4nsMLLzNV95bK8kGV+PmJi6ToCeq4Fqo1+Clarke+c5M3DDxgcpy6+38wHPsX/KuA p4IagBrk0iguZD+9/W+Y53nWoIPuf+H37eqLhnp/J7z5G+Eb+eaR8A8iFG0X8A/CA/U6qOvBmqhO/q8C 3iJ3sVjY6lQ8yG/PRH7Lj+K0/pUOOatZTiK7IUhaB/ cv+PywGYdiioJe3PwkWZfu/5ETgo5Z7U5BtlugxxAD+LVNMftSScH5PDIsJqS/re5LCiekD4dp/ZwAvo qjnaVBxf7IzE3G8KwR+KaqRd3zeyaFpk3QZBoT9To4Y7Jr7gfyRDt1F0Fx4NzLOldPOjmgh9OgggRo9N rCqj4ArcIVRyinYk29i2GQd7Bub8Nj2I2OcfHDtGGF 3gY4W3+JNv3+GlvIxVxQzld4QuKwX3Y8Guo7i0XxEIldw7FeewnxZRFcXYoHy10N4rkbvHki/SXg/G0o 0tCtRddWtLCUZ1dsAThZFr8I7R5qwnW/APnKjSDtI8YfT8y0TXXoGIGXbKCeYiYaKTrDbMV2CeeVJUWc 27tjC4N/kz6Ho36Y/U4fS1G0QnnT9sRIr269FnyOGD wNC7NctRC3AU8N3c0R1IuK5LyrPHprN9ki7eMi+fSxvcdDyavyXbxgB6ydpzDab/DGO+Rz28qC2AlV94 HGUbGLX91RkAB/ETfuxwGFluy9Wuup86KM/OXbhRiyzJR7KWvrozwHmO8V87E8ZyLdTR6JuC00EAhjHr tr0eoSCLgd11TgZedrXvg1a6G3QdCyLdu8Arc6L+Ei 5khxBDqmzc0BedYEzqqC7bq49zyrdR8EYxyVdFxyZ+QazrqeE4NdTQhgAAqxc4psmpk4TouQ3cX2QRoY /Z4O3/nMb7L9GxyHyI/vNdsey3Jfa/53hv5b0F8QkQvaw4sb8dUYb+PzNPGm9WJ8HqomndGNBU5Lt2gb zL6zK9iN7c2I77ChMQ4H9S3sS3OYh7pGcdZ+CVAQyp E2RU9YxJqFE0Sx9TNbV1C//GDdrWLGqHfHyOt1LHE/FJML6GvGUDp8Uef7Vb/cuKPgLpjnOfyG9AwE3o 3SwboVWqyL8E0MHYu+jb7xX003P8nuCBm4zbpddwWcFtgHLnoGwv7guuVVfiEazSj0b7kVwAeTagXHpG 8EGvwiEIGKECeWk/gvEJbbCxN2IUeYCPjpYlYWGraH FYbw5My0w4o79Dunq8So47O3WeLL0cF+tPLppVRFkxzUN9AilNzSu/WiXAdq/V5qrlHp/77jLHFSfVgC lBibHVEPS2NuTQHScPcWGreehKRd/2IQMFDB/LdiIhr0G+u5s1ZTfbw4NGw3f2+tGb+zWcIxmFwHxIky zTys3FgM3+UvHDv0OtQaVf3A5dJX4LsXlbC0XwR/4j UsfofnAXFi+bh/08UhbBeyWOQmhePPuTF6wr1rY+ttIZRB+rovn/ri0Q0ymxJCjU/68ndfDRjXATxaSL m4ejGWTPh96MK0rz3QVyKgy4V+6797H4Hcs1YtEKtQ0J9TEBef7/fklJDKuP2efxddmYGLY4pBE/hfIo 3kdyXYGnBi+sH/HuQUXIhmLYZ9ZH0sE/ivNfwvlDv8 V+KNxdIh/vfRw/0NFjnujcI8d2A4Syh9FyMdoTZZtuU+x0zcUY4um2Q7hEwA1L/x+csxZt1UiSciBm+V rW50r3OwkZXr+A8/+eUo/8mi5Gvy5odiD/5htmsy6M0/leCfSWBPIOUw/1AEcedCXKiTJY3sTP6khi5x gweXAe3mu+SbD4hPpZu2U9Z8O1Huu/FmUXBxotcYXJ pqMrJSM5forXeO/suSS60C4CzUniX1bY01nQL4QQml4jwhVvxeM/16QIBuOGOci1Wg/QBDasMdq8uhQg 1obKPingxmPb37GKt58PN/POq/fZZK52cNr67nira48C/n/FxWq5n3vwrCK9WS3m/+y0gyaUxzLgcjeJ sBKd/4N1KHqoNTAwoPF5L+7KKAPBwej8SvrYl2M3F4 fUNaZmNiAP7kjumt1dQ7IJ4ld2N3qxc+7r0sGH9tE5oExGn/xmtSHpl7jYeF7hxv5iOzWpY4+ZJO91/Q YEnmgm3TyKu2qpx0/2AimWZasJ9sTdnERgWFmB+oME8Q/Ud8I+LE54G/SjgGxInlhP+8BEvaDFTKD/+r moU6stI/JYJUI/ZPOuMvSKCMdlTu+BsI5S0ppC8tAN FuLJ/6p0MQEFP79l4jDHN65q+DlGP+52UU4ttB8K7OD/rVekwnVW6vbiguK+2FtJi7k6dHLpoy6LC4zw Ifq5AlpafoLXl2r7IrNbKHU/1ftcXvACOlr/46r9NZ/8jN8dvG3es/Ftx6NGtpyTdNf4IztoD5TUYNz8 ksls22S4fN1p8/u7mA73VE7mIm4JByRjKU9gZVK+Nm tZsRkI9vjOdtjvELu1LRViU5+M7L4YHiWgxbmaGgpI0IFQZVlfVZRhfpgkDxsyx/W733S9qORVbVO/8X 2Qz/GXBNua7m3HlgjtIiMr76Nzw//y7DRs9CXsSU7/1qLlpcubjHvEqTplbL8CDZu5Gl00jq/r8G8M+k fTcy6P10nLvzm1QS/kiBmsWCpq9fLB3kJOPI/0fBYX 2SCdCoRPcx3LLiWSwQgHWZ4Bac1QLp5cZJgIAtSlDSBdMbPD9tA5vtJut+f9qRzcrtlw6/12b1OIpp/M WCKJJVGpU6L5BJQPVCeUBI8YAwCFyIigHg4OZEBcteXQ6VuR8KGZrZkrXCggBrPpjJ3jF2mIeK0CFgnR 24V0TCxuBLijOgNyM5iV3tGIogDLPt7wbHF4inZyvW cBxXhL5oGqOnebNVkvyNHthwczQC/xhETcFATUGUwWByY8CgOKXCFXOAzbVB43bcJ7hMU4o8bKPHTgSP 2G6KCRi69KGxUOzLYR8xGOseGZ7WReEJVjhBzVd3d3ADAf1mc+/gPKjYAY+UKfcAbI4OYeeupFhx6uo3 lPMS9qQQnZHgtQHzYOClh3sURtDpYAVuhpAP7D+dLF gGXiO8FQXo13z+TKhI7lefgZYzUdVZJhOSX8QFrbBD3uaSgA4JjoZtzBI5UNkMpgTHV4EdtHzOkCYDUq fCXFiJMG+Vii/gpTICXG7C9cKaVdTNi2QYX4O6LupyJZIShyHBIdwKVTwkR79nGQPoW+aaoHpNvgMeSk VlnCLtV2sbNXECQMFtMXxlLsZWeCVVPJeTT/gOYu9V 8VJ9nV6QJ8vtULX+w4CQygfMyEFMZCiZlnhEJQdIlJvy9Zk8keGUqADszAbwxxUPjKWvtKVktwT20N1J FoAwCOTnMiC824gxwEczZJWisOWbncnB+uZm93rtaXpvLIgm+wEVfFPldEzGFXRO6lFWMabFI5uaJMNN uUZYoPJclC4682LlLXA81XRM4GvbS02/J1VurNzCNT 0MmtImfiEr1wyL5T5GtMTf5ovthODLKVK72EH9EtlnXsI9dI9HuFtLtaeQhuBaJqaLbjrzP8imH23nXR y8ICmoENb6Inm/LGQ2GKQicm5VRQoA6uJ4uoAyeZOkm59KPdH45a6ZjcJcI/DFMk6PUBjzJDV5pLea5S tmcWP4C6GmQMqKpz5RbfBWgH8wKh3HuBVY0UJJsXAZ wDtNR4V3iIFTbSO9cKLnKBPJXsYqZinQPm3VXRvpzzWLNaHV0SSL1bSztiGS4pSU42um6E0MYpqB2p/F F2oEVJ0iNBHtWj65CYtGTK5FuCgefpvkRUsGIvKwMryyFzKS3OObrBrP97crjEIUd/BCV1/+Lb0TUyYA gRAeKFDomD7CRnCF0EuC4uz4mkQuoKc8icRGwexFcU e5YXVNMC+0koEQvKi+NRCHLc2ShOAbGrNh3fkbku5L+YmMhyALDk+tPnFY0byrGR+1RrcZFGHu+uj1ml AjenHifFT/ygTo8j6U3Ce4iuA/x0Xm9Rjh81o7ygcIqRslDrBAT8CeK7m7DCPIrhSWyqMFS25oTcZIWy vHASns4EjO5w0lS1ypF61oOi/guhd3rbIT1Or+606W J3Vm3ltiBvq1LD8YvOKdRDeVYSub/Po9p+js1hCEDofiRKM9WJCX81FlRwTA9acDvMck3UxywMTxm2jq v+BEEqa1ZiBBMB3WoMc5SQbpf/XAKywF9eZRCVBySaw9M5KLwgoC1IdY+2KXMgm2JztKj1TAs7XN4MeM vXrG1hgdV3eKM+vpkT3vqZS4rgJMcjiDxCUZqylNN8 7oFdZX3fmbOt5TXAHsGDD9UzUYiTW9oJOEdypg3hbpITYrJMr6JvXFtdIive3ArmLDMsQDlNMhNdc0Ou M60YfEmY6CrEKczKuu3eWqyKZcwU9F11ERqRVEjZ0utkCTqzyIlGgBVA4Bmn6PlWGxyFUzQ4xrXQyMon djSpZ1C9pf3lXoa38mMLhKcZG7dHIWNgU99wotYV3a od+2EP4o3hLLWbsHG6l9dbhI/ZkUjrdYV9UeG5JY7C23FsAzmmdRjxC4Y9W+VDyIXmrFimZ1SN7MtAW2 BEIMBOy0QvVuF9jzT03HUziJNetIoBQTVTzGHUm9sHdQmV1ABmlbie1RHN2FEyZdL6MhXgPXTgL10wOY bjkB3aG7tLX0w+FoQWMLqANHjEaZTmkDT+vY3KfQW4 wnUP7XLU6ZaRpCf0ULes+zHI8OeMRSEYpFQomYOFWgFaLVE4CbQfCJQEovfxiXawYqBUtYKOJbnRx73k hzQ9LeuoNgtYxBnB8RcleNJx6hKw6GsQZ3J14pKoSXQ1e1cCgLw3dtnFZxKjlKrx+f8q0khAZyisyBdI NSo2DhTUx4fopI0a9rKFzr0UsDzf+99k6ifB5ZYNbQ MGMZ+O5zPWghY+eU8825coDo1zaH8Wp1vTR4uTJHuTMqOy6krfiVEo7osQqpyFIQllIoOe/yHkvlfqJz Ab4HOzKAknzodhOms5hVYqo0sD228Wjw1tOo4pH1EMoQXV31ehAkpV3HAy+OVmP/aUJ8skBssqbC6+xt k9/ZlLiUcUdipd/D6K7Lss3cZMGinttx/IPcuc5/0D JmN0P6PWw4lkm3ebk0Acvo6d8Djkrw79b47iPSPL9ipufZCjRTxAjAOLroBH+7kdQKKzJSp8UiSxRmFb 7Q9WzIdANKKmFyKPa93XeDGRuSBT8N7ucL4icPlyUr9ZFPMw49Ri+6Dd9QxsaPDyjVCw0sG/yxQd4nKE eIHJw/IG0OU8txpVAbMYBdWMBjBPR4UT9P1RORELDa PkDHzSZTlu6PYcpAhKPaGTgMINONT5UeZ/mfp3RRzU+t9z6XvGyINr09b1NAJjoK/CxuE4frsxnhCjS8 VEE+TbVnloG/sFF3OLvns0KJx7OsD3XQ58x0k3k35iNkK8d9HuvVW1FbV76VtCwMqxlTyETqzbCdg8lu C4zOyiMuosETv9S67k6rHAaGsNE8WQRCcZSzXuKpEe wSNWIFJ5K+UQKogzFYD/cLwjkB4qO/aJ9jN7Oz14cLhk33JiDMq70ngqTw0MSUyNa8i7plEU2jk1pV8d korcMWm/h9PbvwtnK7Y+HcaxLcJ7IrFNkYiFspVss2LJ8GXrzjU33XwQZKfJxTaQtywhXOXZs27pzvJy fB1MXXol627yzo0zvrggxfCKfL1mSx7wOiXLUJ00/0 DerwANCaOyrYtVZ5jLOZVmdF8idj3fdyULXUEVcoNfYDgjF8ygZSQ+HfwR2gVBElXT98hOrefpnnMuSe NMUfNUZQpARFR7OhJNWF2Yt+aYbNLWka0K7eF+rA/f8AssINVbQAEfj3f0SPAIc5NHSEA1E1OjlvGqvG /OTva93fHx5/DEOqBcsFWOesJVxP3IkzwXiYXkQQOI dJDSiIOzzukxJ5j0kwoEvnA8W1QivjuIsSQhnTeiuRNI7eEkCTkTUHtYgUg7TUUiJG/JPTmp2eeUFdRw 7btiyr3RITU935LTdNrWgwZsonxfuJ+14A32cYaIxV914PwSuRMXxCDLSUhuyH9OkbBRlC892IT9XVyB X42G7U9VlVBX1zd9TOwCEZr1pxaflyaoPp7LcsBAqF J3ijyfgWFXhfZ+tQJfFyVVHgXQKc3VUbFmJhJ9TSoEPN2XoXg5vM10qi9qx71iTH5qJynU4tGR+U6Myh DgC+JE8zI9E+iMfGfmLjfqLoFyrD/iPNvsvkhp29irBRy9ceEBHFM6XZtZCUgQM9vQJ/USSMKNPZAtiJ zXOe037neQoy5g9aIFFggu3SXdMOdSbIOhlYZFcONS d4UozjABshDhXSw5SaAPwnKAqrBthUjvUx2QfoMDnCgwLNxcvxFjDzzeJBYIBxe+IwFNeCGySfSV4rZf zUIm0mvnECKwdAlxrucw6O3fXZcFMbDFfgKalx0VHSK0jmUJnVgSvEaIMK3M36rU+T0Bn+cGJnVCWgA9 TmesEXEVbg2Y5ygkXHWhsYEuMo7geiyK5gtcvd/879 fF30PPQ5xtJUGpL1ueFIqgX7pDC/sXM/LPtwJmFHZiCi2qBD0FPPPsBO+GYYNe5Z7BxY3ye3Hgx19OAv qAGXPSlKv3UKcRoUhLCFIzqk99yGvWMgxtxXGYXbjZIKzhvSR1BF+f8NG9aU4UsYZW3mbyQ+YFgXOu+x eAeXjhkJDZOjNv4S5W6wGmEiYFkwerh66OOh9zZFjh TO+93nj1cP+cqFQ0XUfIbMTymPtE2DZ6h75InXIXoE7UdNEr4INnqKcxlEnV3jrzBjg+6AnSWncRzSqI KWXJ76vHrjDadUaNAJDyq5kJm0yhHyiAFMrki2Ny29X9flMexJAcu1Bk6WRnR/kQ7OX55hfkkTrDMMBC LJk45yMIy3Lv5LmZzCUHIJrXf0xLZRUzZZN/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 [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] 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 b2b/zy+hsicQ9Yqfw31I4M9oi8aWyQHPztdh57/u37Hz+Xv8f8+0y+izjy/nj39R/z0cOzq69NB0F7 [file] ayBTZXJpZXMpIAogICAgICAgICAgICAvUHJvZHVjZX FwIO7CB3AxSXTxYYXSCBM0m2FgXSIaesyyfatjMm8njbHkRlf+YafsRLYlq1UdOVpkO5X2lQNpG8YnJ1 LkAM5OxZCmJRjjWKLaKLRgFrGlVWKGQN5qF1XieB85RYR+UrOgPX0hgye0yiIcCjVpSLJiVLIdGMWuQM aoSVEaNKXiADAeCWS7AXU4PRMnPzWbMGLfJOf1Yiyi MWZfUBVlelNRTLQmZRFbIFJjUPLuFIAdMNPzXBfuGPIhSUE1OtYmWMRdJMGrPQ0pVvCsHGZeDHOySGEy NbY0SdCcMbKBIQAiHMXfWFOkFyKiCXIfZWMrPSuvEQFxQPJeMYe8OGTeAQGnAG7yAkHxSCBfBYTxYBSp CHTnNZArmmTTBFSiUPKaHFM5ACJvITBxJQAmJAucAY SuRFRbNLX5FYNmLELbKM4lGfQsIHGvFYG7IwZfIALrNHLittJXVQUlXBXuMSE3CJFkOIRiFXDySIznCQ AgUQNsBwS2NAHsIHQqSP5dWdGhDIIkQCY5BXTyGTIaLPTpdxBUSMIzEJGiJGb5GgSxLYHnPQRyISnfYH YtYMHfKQdiLRYqBETqYX3xOsFuHSVhYPHeNRUxXABv ZAGuqtZOGLAgTEWtESR1GaUgPFUoMRRnLYkqHORvKELdFBL6UCLwJPZdGT2jYoVjCDNjDLP4SxAfTEJu RHVszcHAQPGnRAQuIUDgMMAtJRZlEHTgKDyoDWGpDLGcEyK9LCQxMEMaXK4kUoItJQKoODB9DOJaUXDe QWHqniPTDEPoWGNaVII6CVRhJOVoVCVrQOocWQKaVZ R7UZh5YCBtVXCdPW9wLpEhZUVzXIQ4SIceVHTyLXNrwuUUJYYdSZZlEqEfLKRbUOMiDVEpDRjhHTDfKK VrPLGoBCM9KBZ7NWIfGfOiQSkdVJSPWRmOR8BczdNxJcwOB9eyQx2zYoVsKKQHM8Bom3OxNUMoCYQSGa 4+[id number]= ID Date Data Source [id number] 12/14/2020 07:39:20 AM EDT [facility] Name Value Range Interpretation Code Description Data Morena rce(s) Supporting Document(s) EKG [facility] YOVZQk1oFsFJHtThw4MfGbInJEFsZK9czoj2A0W1vRYnR0KuvLAhf2gdF6OgF3DhSJCsQEWSJL3VrMQk jb2 [file] Yn2oHc5MNi5wXW9pPMgwnzh/DP4WZoWe9Z0v7UD/NLbkbB4ml8wTG7YGj7ZoMUZ2W+FwS2CNwsjh+Riana 69kk5K4cztutRrkVhBfCiZi4Vd2yi5KXiHuXwjSglCh4csOv0JH3aahAcWsuQq3RpA85qN+dco2GOPl0 DtLFUEotouMOqeKgdG776w3xK7Uoz4Vg9gc6l8Hn+4 nYM7PIB4TTyG9wrapQ3Y3m7nGv1PV9gGSwroDZyxUdkR5mjsxC7H9MGANvcaM9fqtTudhzPCzTiwG63D DtvoVK0mhJxQwVBI5E6jukCza5mFokGcXd6VZwGwiyhEYBmjdK6NIcCMpCY2I0PQTjlyEJo64Lee2UzI bb1pWXq2cZjKwgywuUQjGXyO5i6urDDfhxQssIjFTe nuforDg7BHd0aaUfoLh5bUGGf+6MjBTOqx0zy+bBB5zIK4tvWqryhKEn+DWpY9iYU5n+LyhthwissbYt M5Lm+XAdH5eDNECcSiCTTZNu8xySCJtAqE0hnmkHgrLct/GYdEelCGFgRlT+zqUV7GHPY5qLl29xSVN2 f6tbhiTNlWX221iZoNqyMuyYru4Y+skeY4IZeBjJaX X3vYptSb+4LrJ8btLlrO04up5jVOP3pHR1/pVwJ5uwSr4DECZNDnNH8Ktu1rA8BF7gVwnoqMkJMypFk9 CIL2yE2x8LYjyi2kieV+ruI8egOm6rATsroNP7FOAw0szhx4xcpmwxzz0eqrPug89mVWicaj4gdNLL/R 1P7buX1skNvx1bZ3cmJ1pJkHjTboXAiLMy2g5bZwwS pPT045yNn6RhYenIfBA9CWu5NqeOZRWIsPdnsdAO/w7aV9xCPGV5tntqo2QSZIG9hRoCvmqDJtTeMnBq 3Y9J3r4slz0a2Zy6fEeoKTuFuiEj0LfS3L/C+4j1aWl96qyZ31O+rW6kKTLXnKpvxlXzyDOyUmCE2xKF 0+sA9udNuveppauePz6VvhysuuyneaaBvaRG6y6iOS n2j6WSvE3H4lmhYVQel4+/G8Ras3K5y5JyyRfneaY8u02Z8pgpusZBtjOBjgRE40oIhsZk9djPtlaVnm bxwJc47GME7mRJ7Cq+UoE7Bt7VO6j1gE9corfgkJ3E3L28sPryrh8rqoaMvxwb9qhYZDaYeK295q05zn 7aAHhaoCJdP9ED+QtyzogaFGJr2xkIsJonL+uLzhnf ib3w4CYWC/Oy2iVqXz8bMavjib0oN40GbMmXxxyhGdSHTcZInJ5b3CqmqA7L6lCyIwoksgqxwFpQUuhR J4N+g4QcwqgwTwy+HpK6cjnNY9cnce6IWEnlgjL7E6AjaIbn2WMtkU0dj4kUFHsb/TxRYoQiS0OsmjwP Fn4He1Xtq+YhMgOjvKBs8hBxbhGWdKNalUMWjDV8/f 46Fdf4N86tHk1V2xqofhfm1E+bkWD9uXc2MnqQpl1HeV/Manuel/vQs8xihLslJ8I8TwM8fCjx5Ocrgqa2t gnsoSzxLffHUl+HoV3kxEv+XqP2gLv8R/Yq70OWzeol+T5fF7+cnpl1uiGj8PQAn4FO2uRx3RjJmz3mt jL5HQIbsbp+ZuPtuWpARPa4M9L3v4lNiUvJsxIsFd3 AyPxEhG8Ce0qckHnIl3lV3U16itofUputvNbKhAiIqeZe2zn3VZM3JTtvZcGLED5ZnGB2SvF9c0fM9px 0P+0Uq1yEjjNdh1rBthmf6vAC+XprjEtIterAtk0krhZxxgfP0Givq4YrUMqxJ3LI5zIq7H0aufNtJiM 9yD6S2B5HSa/hHaSeeRXm8ahE4RaT2qCjVQlrLCYwm VlgwucB21m9+9ciOilhc6kmEN0shLsvtHM1p4Z+aIf89sQJtyiPav6O9zeuyZ5tyiwQNQ34722fw4Tdl pJDStzFy9E82kpEBfn3+OdZT6G3UgLOmMv56ArnfL0o4dX4w8XbpWNF6JrUpx5aBi8IBF1HS9jGnpGhq 3A3FfpIc5eg+qDsPGpTak7/4ukeSJSZ8jc41NVkY1l ZbliUnvkC5gAKegvUIFmWboetUPvBzRrEPt64nkv7K5heuQW6JP23yBVmaZUkLsD1fC596nNiM3wJSEl G/WLh6RU0kB4H1J0RNG7lNn9V135mA6n7Bq7djtUJMyQiPjrsH5aP16RjbemCROORgdDB4AS/UkeaXc4 S4HTm2jjCtqs3Z7fxzpA28qZQxv5yij4BXP7M8b1rE 6/DFLRc4fewA3TCsAWj+DKkbUS8qjCPf11/wVKgHECn5GFjGjG3wwW833uyYU1qnfrjvum/TkhwO+Mbl XhqzlVoQHEmbeYto8lL7dAw+IvV8xb17ptAWb0ZNM129v0Ywy8QlL67e7fzEAJs3Uj9BOK2WdE9nnIyz xGtQI/DCK3yv2gqwh4e/NrsS4pzbHG2aL5i/5/KGPc P+XGl24Me553p08vk82IDDo7xqwxf+X1EvhF20Pme/mOTzG0TsX7TqOJe3cCz/F7tSPsqsHRA76Khv+p bR5Q2f+SgKmTg1Mjcrrhm7Hqf92BCVb1YyH068qZ1TqFJp5CQl2rU5m/m7dfag6qDP6U+6vOFErFthHF YQC3dFtr9jJRHNYwVLT8r6rK9mIeMgvQfx8oVsVic5 5vR3pYiSufhb3kzwV4WBQmS3Qn6yTLJgDvz2ELbNXAhH6p4n0G0vIRODZzz7zET0Z7kxonxLtENejD45 WuiJJnDxPZOEDOvoWTtoeMDIkcqjwQdZwGdJa4HH5NhBh5WNTvlMT0ea5L9VOpe6mLEsrQGYkqZ7k0M/ c1NqdtrdUhyD1fa0+4Gdk8cpqSh16puA4m2eisRSuh RjRuoE862Wzy8Bo6+lrxmMWexOCeHsg2dhljl/3L8hdnm3EB/+0rmvpssbLi/5i/Mk386o6atDO6oC+7 V2xWFrgwAE3Q+RYjRdOn1UGvUsHfB++4DZGjl8cMFqmP1t+N/S0F6pjKcprlycgUaHiKLP03h7VdG0x/ b9XX8o/ozbn9Vo3wQj4f2sl/TrkSXz4559OG4g/as7 X9wEbq5/EjiczfNcd1SA4CVd+i235rFb0M+1uEbho/1g8cgXQ6WIhgAXI7Tcbynp1W0a48+feP78/llR 9/JL91qIqF6mNK7QwB3+6vrQg72VgGL/0J9Dq1xpf/o2/qR040r/f//qe/h25qhhS9d40NsAjlkn4g7t L00H9CZJm+hGiu/bPu/i+64/Xziv9ab7+573md6/up Zh+b69Y9/KcOz8/aLZR4r/8r9MvCX0w01bYJ2Eu14/Ued+nfIaL8J6n+b3vX+/YT6/x/0Lu/i2C5Zzjn cqhk/9ur0B+n6/KZ6Mkgiwk+fkul1Dw+lYm129Ul0v83HLg6+n9Pp+sqr04oaZ4bNsqy25hm9w0kidjo nn7yj/LYaFbdi1v5nrvA+aOL4HHcEfcT0yCuAw3qnd jywqAg34MQP6KMi5Otw1C52UXGlz9mVNSPwQb60klNbztw1zPzV5MPfjM3QEqEi3Rdf1v/3CJTZHvjhk KneifmGT19Ei50dFCXcTWsQCgQSQzEs7BkKNXoR4NLtImpA1VmCUCVUYDDFFrQEz9xjqRJMeOPD69fiD uiCbrpQjcElsx6ZZGbe14lqTJ+T4+4PjVLC/N17Otk GPTP6xC1kTcOfxW3dZl4phxXozzm3RFfs3wiPdqKsSlSHJLieauIYhk7lauXUXfsQOPrgiLAaabb3gid 2VKwMr2kzz2ccyvta3ur50fR2MWsXRbWiapyXM4x/f8idVsSjyXEP4EABUy53AUvECgPa/3+mFZZDmr9 1ECKkZLxwuZGcw3IaqUmmyKr/h+oWzo/Tplk34G3r/ 4fqFixwO+l6YTO7N0pNdvKVIpxBs+oU/N4GkY3EKDGgPP95YjnkyxwSh0k7d2Ly23hRWuQj11BQDMvPB sWL25EjnekTkcpChiMODSQvHYimnPSLxWSvo+oW/p8GPnRyZ3/wHsZM4ykUSOs4pURCA6izBpCP8DJXg qA7MlOHyG5U/hwlQGJrb9EyPSoY9BOtjzb0Gzs23fi EDfl6/9IwSfXp8UsmVUJm5M1g6mwEZpx0l5ZZ31OSN5iw94AvO5pd1/3n63/zg/X2+URhLdh4cuyZErF t/bglXq32d/qb/t+/6/mYE9/+/L2Gcr/O1xpTtWHvNXwr+/4vK0lcqnp4lrbh3qTkXI3xx/n3+f/g+yq 7+v+j/m/5/utjqw1H2836M/8nus9c5sG1+Psru/k3/ b9/1Pcqu/t8pfaf/D/r/oP9P+y176HfV+dPzzkX/V9ICaj6Hf1//31yCbbT21fdu6QH/z+c96Y+yA29H 2aGso+msFI3zQtUt6tDirr+yu3/brdtRdvX/Bvrl1d9oV2++fpSdG/7+/T97+jD9os4zRMdGcyUfi/q/ 0//Q22hruoV8cx1+/fI/qw04bENK/8/zDvx9/p9pzv MO/G3v70n/n5T+PC/yPM+LPBelp+ddm9Jv+r/T/80dBkxw6s/39/6/z/QxiSrC05fmi//yTST9ol/0// K8IMXo32hl/q5DPwWMe+fNz+M2+x728whk1ciq7WX54LOi8+39HfT/nVMl35j66/n/ViJ3mL7I+7kM4a bn2X52Ds+PN5/0/9jkUlFivQ64MlEeCdyN4Z3O9llm el4P+u37ygC53Po50tqUWn/Lmw/+/j6+X9MAwe5GkYYcq09/6oF9DsD+Apa2dJqbwFV+5XhaQX6K/9+U j3/P1+n/8fiJMxPFif/ly25xdbicZgzfakVkpbxSsfK/x63/zzYG8H9HMv2qx/I3Sm/2/l6U/bfp5hUl Ppvy94/+pvoE5R+v2TQ37Ec5y11NuFfJsGIvjfL2Mb /o/4P+P1+1dg9dnjfq31aFE0d/qNxN+e/HQ3PKx+n/QfWP9//+vfz79+bV15xJauX/6h17bp3+6P/j1b MANAGER ACTUARIAL+v/rv+fagvc3/Z/lb1hlFlpu8uTj/0750/MefXX/tkXm60pR1/Xfc1XB+/vVZ/JX9kfYc0XdpgP1Cx V8RKeQ38h02/ud2S8JNbQDnnh0bqpaKvEhZ3L/49Vz Uv+d30s/2ed22jgp8O3uaf/2ccrQn1nM1Hbi/b06wr4kyv2a/ygji4rzUjHIkpvy3mtYu2B+4oFiRs9V 4jffp5hR/y57ywd9YcwKg2V6M5+Otn0dQLUzzDflz6fkXvow9L+oPvt+axT6Dx16+u3EtH0voU7zEaD+ gyypymvb2LobFx+pr/B3f/mnvkI+N41M7crI5y/zzv z/fPVJfVV/0//B582P7s32KbCPranJuSZmw9C+9Qpfosr6POU+CuirTN8/+vvVM/VVlrvp/aa+Qvqnrw L6Cn9T/wWkM46vQ/bffooXS3wtY4O6wlELHoU4KQ0AC9W5e/pv4Q857e65am9f/9RX+P+g/8+P/n48pL 7C/43qsyifdXV++JsvhNPzutP/csSOrc9qc8iv8e+p r/D/U761Spof//fHW+ameEy9q2yEag6Uq1U/c36Ev+80jI53yfGG9v5vUC4yDLWnOC78y/KjU0zMKSe5 Hpx1QMfcpnAQmSkmsOl5UKfP/CjZvE+PAGVExcKxIkbXmVI6v7QHbQwdeU/Em2jbnUZ17yv+T8ASqyDJ jzI3ngIoTWrhORHXZ4LcyU2RxvdTUZGMhOTWZB//ct ehl6686n+M38if8M+r6DuiC8I7MKnPng/vYRyEOsOW7YK+0fL6Pd4ChiiC/Skjwz/orE1lWZu2++sRdf rfyDBGTsxrvMP+z5cMTMYmSc0Wt0fbtHNgQKQa/Z7UGJpsWJDh83YlprUTZacKOJN7cw1RhvFKkf3/land [file] ID Date Data Source [id number] 12/14/2020 01:38:40 PM EDT [facility] Name Value Range Interpretation Code Description Data Morena rce(s) Supporting Document(s) PT 16.5 s (9.2-11.9) [facility] INR 1.61 [facility] SUGGESTED THERAPEUTIC RANGES USING INR F ORSTABILIZED ANTICOAGULATED PATIENTS:STANDARD DOSE THERAPY INR 2.0-3.0 DVT, PE, PREVENT DVT OR EMBOLISMHIGH DOSE THERAPY INR 2.5-3.5 PREVENT EMBOLISM FROM MECHANICAL HEART VALVE ID Date Data Source [id number] 12/14/2020 08:06:14 AM EDT [facility] Name Value Range Interpretation Code Description Data Morena rce(s) Supporting Document(s) TROPONIN I 6.84 ng/mL (<0.05) H [facility] Less than 0.05: Myocardial injury unlike lyGreater than or equal to 0.05: Highly suggestive of myocardial injuryCorrelation with rise and/or fall ofserial troponins, clinical symptomsand ECG changes is necessary.ALERTED CRITICAL RESULT [facility] ([id number]) ON 04.13 [place] 8[address]83 ON 12.14.20 [place] [address] [id number] ID Date Data Source [id number] 12/14/2020 07:28:10 AM EDT [facility] Name Value Range Interpretation Code Description Data Morena rce(s) Supporting Document(s) SODIUM 136 mmol/L (136-145) [facility] POTASSIUM 4.1 mmol/L (3.6-5.2) [facility] CHLORIDE 98 mmol/L (100-108) L [facility] CO2 24 mmol/L (22-31) [facility] ANION GAP 14 mmol/L (7-16) [facility] UREA NITROGEN 44 mg/dL (7-24) H [facility] CREATININE 2.71 mg/dL (0.80-1.30) H [facility] BUN/CREAT RATIO 16.2 RATIO (10.0-20.0) [facility] GLUCOSE 107 mg/dL (70-99) [facility] CALCIUM 8.8 mg/dL (8.4-10.2) [facility] TOTAL PROTEIN 6.6 g/dL (6.4-8.2) [facility] ALBUMIN 3.4 g/dL (3.5-4.6) L [facility] GLOBULIN 3.2 g/dL (2.7-4.3) [facility] ALB/GLOB RATIO 1.1 RATIO [facility] ALKALINE PHOSPHATASE 50 U/L (45-117) [facility] BILIRUBIN,TOTAL 0.7 mg/dL (0.0-1.0) [facility] PLEASE NOTE:Total bilirubin results may be falselyelevated in patients taking Eltrombopag. AST (SGOT) 3595 U/L (11-39) [facility] ALT (SGPT) 5219 U/L (12-78) [facility] GFR 24 ml/min/1.73m2 (>59) L [facility] GFR ( AMER) 29 ml/min/1.73m2 (>59) L [facility] GFR INTERPRETATION [facility] --NORMAL KIDNEY FUNCTION OR MILD DISEASE - GFR >OR= 60CHRONIC KIDNEY DISEASE - GFR 15 - 59RENAL FAILURE - GFR <15 Est. GFR calculation based on the MDRDstudy equation, which assumes a steadystate for creatinine. Est. GFR should notbe used for medication dosing. ID Date Data Source [id number] 12/14/2020 06:46:16 AM EDT [facility] Name Value Range Interpretation Code Description Data Morena rce(s) Supporting Document(s) WBC 15.0 10*3/uL (4.1-11.0) H [facility] RBC 4.86 10*6/uL (4.60-6.10) [facility] HGB 15.7 g/dL (13.5-18.0) [facility] HCT 45.8 % (41.0-53.0) [facility] MCV 94.2 fL (80.0-95.0) [facility] MCH 32.4 pg (27.0-32.0) [facility] MCHC 34.4 g/dL (32.0-36.0) [facility] RDW 14.5 % (10.5-14.5) [facility] PLT 100 10*3/uL (150-450) L [facility] MPV 9.1 fL (7.1-10.7) [facility] ID Date Data Source [id number] 12/14/2020 06:42:54 AM EDT [facility] Name Value Range Interpretation Code Description Data Morena rce(s) Supporting Document(s) APTT 48.7 s (22.0-34.3) H [facility] ID Date Data Source [id number] 12/14/2020 04:07:19 AM EDT [facility] Name Value Range Interpretation Code Description Data Morena rce(s) Supporting Document(s) TROPONIN I 6.30 ng/mL (<0.05) H [facility] Less than 0.05: Myocardial injury unlike lyGreater than or equal to 0.05: Highly suggestive of myocardial injuryCorrelation with rise and/or fall ofserial troponins, clinical symptomsand ECG changes is necessary.ALERTED CRITICAL RESULT TOKATIE([id number]) D3([id number]) [place] [id number] ON 12/14/20 BY [id number] ID Date Data Source [id number] 12/14/2020 04:04:04 AM EDT [facility] Name Value Range Interpretation Code Description Data Morena rce(s) Supporting Document(s) SODIUM 137 mmol/L (136-145) [facility] POTASSIUM 3.9 mmol/L (3.6-5.2) [facility] CHLORIDE 98 mmol/L (100-108) L [facility] CO2 25 mmol/L (22-31) [facility] ANION GAP 14 mmol/L (7-16) [facility] [facility] U[facility]A NITROGEN 40 mg/dL (7-24) [facility] CREATININE 2.84 mg/dL (0.80-1.30) [facility] BUN/CREAT RATIO 14.1 RATIO (10.0-20.0) [facility] GLUCOSE 134 mg/dL (70-99) [facility] CALCIUM 9.1 mg/dL (8.4-10.2) [facility] TOTAL PROTEIN 6.7 g/dL (6.4-8.2) [facility] ALBUMIN 3.2 g/dL (3.5-4.6) L [facility] GLOBULIN 3.5 g/dL (2.7-4.3) [facility] ALB/GLOB RATIO 0.9 RATIO [facility] ALKALINE PHOSPHATASE 48 U/L (45-117) [facility] BILIRUBIN,TOTAL 0.8 mg/dL (0.0-1.0) [facility] PLEASE NOTE:Total bilirubin results may be falselyelevated in patients taking Eltrombopag. AST (SGOT) 4478 U/L (11-39) [facility] ALT (SGPT) 5475 U/L (12-78) [facility] GFR 23 ml/min/1.73m2 (>59) [facility] GFR ( AMER) 28 ml/min/1.73m2 (>59) [facility] GFR INTERPRETATION [facility] --NORMAL KIDNEY FUNCTION OR MILD DISEASE - GFR >OR= 60CHRONIC KIDNEY DISEASE - GFR 15 - 59RENAL FAILURE - GFR <15 Est. GFR calculation based on the MDRDstudy equation, which assumes a steadystate for creatinine. Est. GFR should notbe used for medication dosing. ID Date Data Source [id number] 12/14/2020 03:47:27 AM EDT [facility] Name Value Range Interpretation Code Description Data Morena rce(s) Supporting Document(s) MAGNESIUM 1.9 mg/dL (1.7-2.4) [facility] ID Date Data Source [id number] 12/14/2020 12:56:44 AM EDT [facility] Name Value Range Interpretation Code Description Data Morena rce(s) Supporting Document(s) APTT 30.7 s (22.0-34.3) [facility] ID Date Data Source [id number] 12/13/2020 08:10:12 PM EDT [facility] INFORMATIONPatient MRN Name Date of Age Gend*PT [id number] Dilan Kirk 1960 60 years M IPPT Location Admission Date/Time Visit ID Attending [id number] 12/13/20 1238 --- Crystal Neal MD([id number]) EPI ID CSN Admitting Provider [id number] Crystal Neal MD([id number])Inpatient Consult NoteWillironak KirkMRN: [id number] FOR GI CONSULT: Acute hepatitisHOSPITAL PROBLEM LIST:Principal Problem: Coronary artery disease involving [place] coronary artery of wamp[place]ag heart withunstable angina pectorisActive Problems: Wide-complex tachycardia COPD (chronic obstructive pulmonary disease) DM2 (diabetes mellitus, type 2) HTN (hypertension) Tobacco use Elevated troponin JOHN (acute kidney injury) Elevated LFTs RBBBIMPRESSION:1. Acute hepatitis: I suspect this is multifactorial. He has a h/o fatty liverand excessive EtOH use (stopped 2 yrs ago) now with NSAID/tylenol use RTC forlast few weeks, and acute tachycardia/hypotension likely causing shock liver.Will check labs for other causes of liver disease - ie autoimmune, viral orWilson's disease (the main other causes of such high transaminitis).Given severity of acute injury, would check tylenol level, and addN-acetylcysteine.2. Coagulopathy/thrombocytopenia: Suspect related to acute shock liver, andwill need to be monitored closely for signs of FCI. Also watch for signs ofbleeding. I expect he will also be developing a cholestatic phase withjaundice over the next days to weeks.3. EtOH use: Used to drink heavily -12-20 beers on weekends, stopped 2 yrs ago,but had 7-8 wine coolers on Sunday. Doubt need for CIWA.4. Social: Daughter getting on Sunday and he intends to be there towalk her down the aisle.RECOMMENDATION:1. Follow LFT, PT/INR, ammonia for signs of liver failure.2. Check BÁRBARA, ASMA, ceruloplasmin, acute hepatitis panel, and tylenol levels.3. N-AC.HPI: The patient is a pleasant 60 YOWM with CAD, DM2, HTN, COPD who presentswith acute lightheaded/dizzy feeling after standing up from drinking 7-8 winecoolers at a fair. He lay down and feel better, but had similar sensation thatwent into today. Today it had progressed so when he woke up he could hardlyfeel his fingers and toes or move them due to numbness. [facility] ER wherehe was found to be in a wide complex tachycardia with BP 70s/50s. He hadcardioversion and has felt much better since then. Sent here for furthercardiac eval.Noted to have transaminases in the 5000 range. He denies a [place] h/o liver disease.Used to drink EtOH regularly but stopped 2 yrs ago. Lost 30 lbs over last 2months intentionally. Denies drugs, except for prescriptions. He does admit toibuprofen 800 mg several times a day for last few weeks due to sciatica, andadmits to alternating this with several tylenols a few times a day.No RUQ pain, nausea, vomiting, change in bowels. Never had EGD or colon, or sawGI or surgery. Has umbilical hernia he was getting a referral for due todiscomfort there.Allergies:Patient has no known drug allergies.Medications:Medications Prior to AdmissionMedication Sig Dispense Refi ll Last Dose albuterol (PROVENTIL HFA;VENTOLIN HFA) 108 (90 BASE) MCG/ACT inhaler Inhale 2puffs every 4 (four) hours as needed for wheezing aspirin (ASPIRIN) 81 MG chewable tablet Chew 81 mg daily atorvastatin (LIPITOR) 80 MG tablet Take 80 mg by mouth nightly bisoprolol (ZEBETA) 5 MG tablet Take 5 mg by mouth nightly chlorthalidone (HYGROTEN) 25 MG tablet Take 12.5 mg by mouth daily Ertugliflozin L-PyroglutamicAc (Steglatro) 15 MG TABS Take 15 mg by mouthdaily ibuprofen (ADVIL,MOTRIN) 200 MG tablet Take 200 mg by mouth every 6 (six)hours as needed for pain losartan (COZAAR) 50 MG tablet Take 50 mg by mouth 2 (two) times a day metFORMIN (GLUCOPHAGE-XR) 500 MG 24 hr tablet Take 1,000 mg by mouth dailywith dinner montelukast (SINGULAIR) 10 MG tablet Take 10 mg by mouth every morning nitroglycerin (NITROSTAT) 0.[address] 0.4 mg under the tongue every5 (five) minutes as needed for chest pain [DISCONTINUED] atenolol (TENORMIN) 50 MG tablet Take 50 mg by mouth 2 (two)times a dayScheduled Meds: [JUN Hold] aspirin 81 mg Oral Daily [JUN Hold] bisoprolol 5 mg Oral Daily [JUN Hold] clopidogrel 75 mg Oral Daily [JUN Hold] insulin lispro 1-4 Units Subcutaneous With meals sliding scale [JUN Hold] montelukast 10 mg Oral Nightly [JUN Hold] normal saline flush 3 mL Intravenous Q8H NINA [JUN Hold] normal saline flush 3 mL Intravenous Per ProtocolContinuous Infusions: heparin (porcine) in NaCl 10 Units/kg/hr (12/13/20 1900)PRN Meds:.[JUN Hold] albuterol, [JUN Hold] atropine sulfate, [JUN Hold] heparin(porcine), [JUN Hold] nitroglycerin, [JUN Hold] perflutren lipid microsphere(DEFINITY) 8.476 mg in 10 mL NS IVPast Medical History:Past Medical History:Diagnosis Date Asthma Cardiomegaly COPD (chronic obstructive pulmonary disease) Coronary artery disease Diabetes mellitus History of herniated intervertebral disc Hypertension DE (myocardial infarction) Sinusitis Umbilical herniaPast Surgical History:No past surgical history on file.Family History:No family history on file.Social History:Social HistoryTobacco Use Smoking status: Current Every Day Smoker Types: Cigarettes, Electronic Cigarettes Smokeless tobacco: Current User Tobacco comment: 1 cigarette daily/1.6 E-CigSubstance Use Topics Alcohol use: Not Currently Comment: rarely Drug use: NoReview of Systems:Const: Denies constitutional symptoms.Eyes: Denies eye symptoms.ENMT: Denies ear symptoms. Denies nasal symptoms. Denies mouth or throatsymptoms.CV: Denies cardiovascular symptoms.Resp: Denies respiratory symptoms.GI: See HPI.: Denies genitourinary symptomsMusculo: Denies musculoskeletal symptoms.Skin: Denies skin, hair and nail symptoms.Neuro: Denies neurologic symptoms. Numbness in feet and hands, resolved.Psych: Denies psychiatric symptoms.Endocrine: Denies endocrine symptoms.Bill/Lymph: Denies hematologic symptoms.Physical Exam:Temp: [98.7 F-98.8 F] 98.8 FHeart Rate: [60-63] 60Resp: [18-32] 27BP: (101-127)/(57-75) 104/63Const: Appears healthy and well developed. No signs of apparent distresspresent.Head/Face: Atraumatic, normocephalic on inspection.Eyes: Conjunctivae clear. Sclerae clear and anicteric.ENMT: Lips: Appear normal and healthy. Dentition is normal for age. Oropharynx:Appears normal. Tongue appears pink and moist with no abnormalities. Posteriorpharyngeal mucosa appears normal.Neck: Normal to inspection. Unremarkable on palpation. Trachea is midline andnot fixed. Thyroid is normal to palpation. No JVD.Resp: Auscultate good airflow. Lungs are clear bilaterally.CV: Rate is regular by auscultation. No heart murmur appreciated.Extremities: No clubbing, cyanosis or edema.Abdomen: Abdomen is soft, nontender, and nondistended without guarding, rigidityor rebound tenderness. Bowel sounds are present. No pulsatile masses present.No palpable hepatosplenomegaly. He has large infraumbilical hernia with mildtenderness there.Lymph: No palpable cervical or supraclavicular lymphadenopathy.Skin: Skin is warm and dry.Neuro: Alert and oriented x3. Speech is articulate and language is fluent.Coordination normal. Good mobility of all extremities. No focal deficitsappreciated. No asterixis.Cranial Nerves: Cranial nerves II-XII grossly intact.Psych: Mood/Affect: Mood is normal. Affect is normal.Labs, Imaging and Other Diagnostics:Diagnostic tests reviewed: Labs from today and Labs from yesterdayCardiac:Lab ResultsComponent Value Date TROPONINI 5.89 (HH) 12/13/2020 PROBNP 18,068 (H) 12/13/2020BC Brief:Lab ResultsComponent Value Date WBC 14.4 (H) 12/13/2020 HGB 15.9 12/13/2020 HCT 47 12/13/2020 HCT 46.9 12/13/2020 PLT 126 (L) 12/13/2020MP:Lab ResultsComponent Value Date NA 133 (L) 12/13/2020 K 5.2 12/13/2020 CL 100 12/13/2020 CO2 21 (L) 12/13/2020 ANIONGAP 12 12/13/2020 BUN 60 (H) 12/13/2020 CREATININE 4.30 (H) 12/13/2020 BCR 14.0 12/13/2020 GLU 92 12/13/2020 CALCIUM 9.8 12/13/2020 ALBUMIN 3.7 12/13/2020 GLOB 3.2 12/13/2020 AGRC 1.2 12/13/2020 ALKPHOS 52 12/13/2020 LABBILI 0.7 12/13/2020 AST 7,665 (H) 12/13/2020 ALT 6,369 (H) 12/13/2020 GFRAA 17 (L) 12/13/2020 GFRNONAA 14 (L) 12/13/2020oags:Lab ResultsComponent Value Date PROTIME 16.3 (H) 12/13/2020 INR 1.59 12/13/2020 APTT 27.6 12/13/2020actate: No results found for: LACTATEEtOH negative. TSH 1.7Hgb A1C 6.7, Mg 2.0, phos 7.2US RUQ 12/13/20 IMPRESSION:1. Fatty liver, follow-up LFTs.2. Unremarkable liver/upper abdominal vasculature.Signature: Elmira Velazquez, MDDate: December 13, 2020Time: 7:23 PM Name Value Range Interpretation Code Description Data Morena rce(s) Supporting Document(s) ID Date Data Source [id number] 12/20/2020 01:40:51 PM EDT [facility] Name Value Range Interpretation Code Description Data Morena rce(s) Supporting Document(s) PROTEIN,URINE 98 mg/dL [facility] URINE PROTEIN MAY BE FALSELY ELEVATEDDUR ING TREATMENT WITH AMINOGLYCOSIDESDUE TO METHOD INTERFERENCE. ALBUMIN URINE 36.6 % [facility] ALPH1 1 URINE 63.4 % [facility] TOTAL OTHER FRACTIONS ALPHA 2 URINE [facility] BETA URINE [facility] GAMMA URINE [facility] INTERPRETATION: [facility] Interpretation [facility] [place] [address] Mixed glomerular and tubular proteinuria. MD Jay 12/16/20 ID Date Data Source [id number] 12/13/2020 11:27:33 PM EDT [facility] Name Value Range Interpretation Code Description Data Morena rce(s) Supporting Document(s) URINE WBC (0-5) [facility] URINE RBC (0-2) [facility] EPITHELIAL CELLS 2+ [HPF] [facility] AMORPHOUS 1+ [HPF] [facility] HYALINE CASTS [facility] COARSE GRAN CAST [facility] ID Date Data Source [id number] 12/13/2020 10:28:36 PM EDT [facility] Name Value Range Interpretation Code Description Data Morena rce(s) Supporting Document(s) PROTEIN,URINE 98 mg/dL [facility] URINE PROTEIN MAY BE FALSELY ELEVATEDDUR ING TREATMENT WITH AMINOGLYCOSIDESDUE TO METHOD INTERFERENCE. CREATININE,URINE 97.80 mg/dL [facility] URINE TP/CR RATIO 1.00 RATIO (0.00-0.20) H [facility] ID Date Data Source [id number] 12/13/2020 10:10:25 PM EDT [facility] Name Value Range Interpretation Code Description Data Morena rce(s) Supporting Document(s) COLOR [facility] APPEARANCE [facility] SPEC GRAV URINE 1.017 (1.003-1.030) [facility] PH URINE 5.5 (5.0-7.5) [facility] LEUK ESTERASE (NEG) [facility] NITRITE URINE (NEG) [facility] PROTEIN URINE 1+ (NEG) A [facility] GLUCOSE URINE 1+ (NEG) A [facility] KETONE URINE (NEG) [facility] UROBILINOGEN 0.2 mg/dL (0-1.0) [facility] BILIRUBIN URINE (NEG) [facility] BLOOD/HGB URINE 2+ (NEG) A [facility] ID Date Data Source [id number] 12/13/2020 09:42:50 PM EDT [facility] Name Value Range Interpretation Code Description Data Morena rce(s) Supporting Document(s) URN CULTURE HOLD [facility] FOR ADD ON CULTURE ID Date Data Source [id number] 12/20/2020 01:25:18 PM EDT [facility] Name Value Range Interpretation Code Description Data Morena rce(s) Supporting Document(s) TOTAL PROTEIN 6.7 g/dL (6.4-8.2) [facility] TOTAL PROTEIN EPP 6.7 g/dL (6.4-8.2) [facility] ALBUMIN CALC 4.5 g/dL (3.9-5.1) [facility] [place] ALPHA 1 CALC 0.2 g/dL (0.1-0.3) [facility] ALPHA 2 CALC 0.7 g/dL (0.4-1.0) [facility] BETA CALC 0.7 g/dL (0.5-1.1) [facility] GAMMA CALC 0.6 g/dL (0.4-1.2) [facility] MONOCLONAL CALC (NOMONO) [facility] ALBUMIN PERCENT 66.4 % (58.8-69.6) [facility] ALPHA 1 PERCENT 3.0 % (1.6-3.0) [facility] ALPHA 2 PERCENT 10.4 % (7.2-13.2) [facility] BETA PERCENT 11.1 % (8.0-14.7) [facility] GAMMA PERCENT 9.1 % (7.3-16.4) [facility] INTERPRETATION: [facility] MD JAY 12/16/20Interpretation perf [place]med [place] [address] ID Date Data Source [id number] 12/17/2020 01:17:18 PM EDT [facility] Name Value Range Interpretation Code Description Data Morena rce(s) Supporting Document(s) MYELOPEROX AB 0 AU/mL [facility] Reference range: 0 to 19 INTERPRETIVE IN FORMATION: Myeloperoxidase Abs, IgG 19 AU/mL or Less ......... Negative 20-25 AU/mL .............. Equivocal 26 AU/mL or Greater ...... Positive Approximately 90% of patients with a P-ANCA pattern by IFA have antibodies specific for MPO. SERINE PROTEINASE 3 1 [facility] Reference range: 0 to 19Unit: AU/mL INTE RPRETIVE INFORMATION: Serine Proteinase 3, IgG 19 AU/mL or Less ........ Negative 20-25 AU/mL ............. Equivocal 26 AU/mL or Greater ..... Positive Approximately 85% of patients with a C-ANCA pattern by IFA have antibodies specific for PR3. ANCA IFA TITER [facility] <1:20Reference range: <1:20 ANCA IFA PATTERN [facility] None DetectedReference range: None Detec naresh INTERPRETIVE INFORMATION: ANCA IFA Pattern Neutrophil Cytoplasmic Antibodies (C-ANCA = granular cytoplasmic staining, P-ANCA = perinuclear staining) are found in the serum of over 90 percent of patients with certain necrotizing systemic vasculitides, and usually in less than 5 percent of patients with collagen vascular disease or arthritis. Performed By: [facility] [address] [place] [address] Supervisor [employer]: Li Hoffman MD ID Date Data Source [id number] 12/16/2020 04:04:44 PM EDT [facility] Name Value Range Interpretation Code Description Data Morena rce(s) Supporting Document(s) CH50 TURBIDIMETRIC 67.0 Lab [facility] Reference range: 38.7 to 89.9Unit: U/mL REFERENCE INTERVAL: Complement Activity Total, (CH50) 38.6 U/mL or less ..........Low 38.7-89.9 U/mL .............Normal 90.0 U/mL or greater .......High Performed By: [facility] [address] [place] [id number] [employer]: Li Hoffman MD ID Date Data Source [id number] 12/16/2020 01:05:23 PM EDT [facility] Name Value Range Interpretation Code Description Data Morena rce(s) Supporting Document(s) KAPPA FREE LIGHT 56.60 H [facility] Reference range: 3.30 to 19.40Unit: mg/L INTERPRETIVE INFORMATION: [place] Qnt Free Light Chains Undetected antigen excess is a rare event but cannot be excluded. Free light chain results should always be interpreted in conjunction with other clinical and laboratory findings. LAMBDA FREE LIGHT 30.32 H [facility] Reference range: 5.71 to 26.30Unit: mg/L GEOVANNA/HAMLIN RATIO, SERUM 1.87 H [facility] Reference range: 0.26 to 1.65 Performed By: [facility] [address] [place], [place] [id number] [employer]: Li Hoffman MD ID Date Data Source [id number] 12/16/2020 08:14:49 AM EDT [facility] Name Value Range Interpretation Code Description Data Morena rce(s) Supporting Document(s) GLOM BASE MEMB IGG 0 EU [facility] Reference range: 0 to 19Unit: AU/mL INTE RPRETIVE INFORMATION: GBM Ab, IgG by Multiplex Bead Assay 19 AU/mL or Less ......... Negative 20-25 AU/mL .............. Equivocal 26 AU/mL or Greater ...... Positive The presence of anti-glomerular basement membrane (GBM) antibodies by Multiplex Bead Assay may aid in the diagnosis of Goodpasture syndrome. False positive results may occur due to reactivity against other chains of type IV collagen. If Multiplex Bead Assay is negative but there is a strong suspicion for disease, renal biopsy may be indicated. A renal biopsy may also be essential in suspected Goodpasture disease with renal involvement, allowing diagnostic confirmation and assessment of renal prognosis. Performed By: [facility] [address] [place], [place] [id number] [employer]: Li Hoffman MD ID Date Data Source [id number] 12/14/2020 05:02:46 PM EDT [facility] Name Value Range Interpretation Code Description Data Morena rce(s) Supporting Document(s) BÁRBARA SCREEN @ (NEG) [facility] [place] ID Date Data Source [id number] 12/13/2020 11:01:13 PM EDT [facility] Name Value Range Interpretation Code Description Data Morena rce(s) Supporting Document(s) TROPONIN I 6.39 ng/mL (<0.05) H [facility] Less than 0.05: Myocardial injury unlike lyGreater than or equal to 0.05: Highly suggestive of myocardial injuryCorrelation with rise and/or fall ofserial troponins, clinical symptomsand ECG changes is necessary.ALERTED CRITICAL RESULT TOKATIE([id number]) D3([id number]) AT 2255 ON 12/13/20 [place] [id number] ID Date Data Source [id number] 12/13/2020 10:58:37 PM EDT [facility] Name Value Range Interpretation Code Description Data Morena rce(s) Supporting Document(s) CERULOPLASMIN @ 34.2 mg/dL (20-60) [facility] ID Date Data Source [id number] 12/13/2020 10:36:31 PM EDT [facility] Name Value Range Interpretation Code Description Data Morena rce(s) Supporting Document(s) ACETAMINOPHEN <2.5 ug/mL (10.0-30.0) L [facility] ID Date Data Source [id number] 12/13/2020 10:12:40 PM EDT [facility] Name Value Range Interpretation Code Description Data Morena rce(s) Supporting Document(s) HEPATITIS C AB @ (NEG) [facility] NOT INFECT ED WITH HCV, UNLESS RECENTINFECTION IS SUSPECTED OR OTHER EVIDENCEEXISTS TO INDICATE HCV INFECTION. ID Date Data Source [id number] 12/13/2020 09:22:23 PM EDT [facility] Name Value Range Interpretation Code Description Data Morena rce(s) Supporting Document(s) RHEUMATOID FACTOR @ <15 IU/mL (0-15) [facility] ID Date Data Source [id number] 12/13/2020 09:22:23 PM EDT [facility] Name Value Range Interpretation Code Description Data Morean rce(s) Supporting Document(s) COMPLEMENT C3 @ 56 mg/dL (90-180) L [facility] ID Date Data Source [id number] 12/13/2020 09:22:23 PM EDT [facility] Name Value Range Interpretation Code Description Data Morena rce(s) Supporting Document(s) COMPLEMENT C4 @ 20 mg/dL (10-40) [facility] ID Date Data Source [id number] 12/13/2020 06:40:38 PM EDT [address] [address] Name: Dilan KirkDOB: 1960ex: MOrdering Provider: PIERCE AMAYAAutcharles Prov: PIERCE Robison Provider: Procedure Performed: US ABDOMINAL VEINS LIMITEDExam Date: 12/13/2020 16:02MRN: [id number] Number: [id number] Class: INFORMATION: Exam: US Duplex Artery or Vein of the Abdominal and/or Reproductive Organs, Limited Liver Exam date and time: 12/13/2020 4:02 PM Age: 60 years old Clinical indication: Abnormal findings; Abnormal lab test; Elevated liver enzymes; Additional info: R/O portal vein thrombosis, elevated lft's TECHNIQUE: Imaging protocol: Real-time duplex ultrasound scan of the arterial or venous flow with color Doppler flow and spectral waveform analysis with image documentation. Limited Duplex exam focused on the liver and portal venous system. Duplex images were received to evaluate vascular conditions. COMPARISON: US RENAL KIDNEY BILATERAL 12/13/2020 2:37 PM FINDINGS: Portal venous: Patent. Normal waveforms. Normal hepatopetal (towards the liver) flow 30 cm/s. Main portal vein 1.3 cm. Patent splenic vein 20 cm/s. Left portal vein 16 cm/s. Right portal vein 20 cm/s. Hepatic Artery: Normal waveforms, 52 cm/s Hepatic veins: Patent hepatic veins, left, middle and right 32, 30 and 38 cm/s respectively. Inferior vena cava: Patent IVC 40 cm/s. Other vasculature: Patent superior mesenteric vein 32 cm/s. Liver: Liver 15.7 cm. Increased echogenicity. No focal hepatic lesions. Focal fatty sparing right hepatic lobe 4.7 x 4.1 x 3.9 cm. Spleen: Spleen 8.9 cm. No focal lesions. IMPRESSION: 1. Fatty liver, follow-up LFTs. 2. Unremarkable liver/upper abdominal vasculature. Report electronically signed by: MORALES GODWIN MD on 12/13/2020 18:40:38 Name Value Range Interpretation Code Description Data Morena rce(s) Supporting Document(s) ID Date Data Source [id number] 12/13/2020 06:33:52 PM EDT [address] [address]Cl[place] Name: Dilan KirkDOB: 1960ex: MOrdering Provider: ROBERT CEDILLOAuthorineno Prov: ROBERT CEDILLOReferring Provider: Procedure Performed: XR CHEST PORTABLEExam Date: 12/13/2020 18:12MRN: [id number] Number: [id number] Class: INFORMATION: Exam: XR Chest Exam date and time: 12/13/2020 6:12 PM Age: 60 years old Clinical indication: Other: Line placement; Additional info: Hd line placement TECHNIQUE: Imaging protocol: XR of the chest. Views: 1 view. COMPARISON: CR XR OUTSIDE CHEST 12/13/2020 8:11 AM without reportFINDINGS: Limitations: Lordotic frontal view with clavicular heads projecting above the lung apex. Tubes, catheters and devices: EKG leads project over the chest. Right internal jugular vein single lumen large-bore catheter with the tip in the right atrium. Lungs: Mild hypoinflation. Lung base vascular crowding versus atelectasis. Symmetric lung volumes. No segmental consoli dations. Pleural spaces: Unremarkable. No pleural effusion. No pneumothorax. Heart/Mediastinum: Stable cardiomegaly. Unremarkable mediastinum. Bones/joints: Stable prominent inferior osteophytes right glenohumeral joint. Unremarkable bony mineralization. No acute displaced fractures. No dislocation. IMPRESSION: 1. Right internal jugular vein single lumen large-bore catheter with the tip in the right atrium. 2. Mild hypoinflation. Lung base vascular crowding versus atelectasis. Recommend follow-up. Report electronically signed by: MORALES GODWIN MD on 12/13/2020 18:33:52 Name Value Range Interpretation Code Description Data Morena rce(s) Supporting Document(s) ID Date Data Source [id number] 12/13/2020 05:04:51 PM [facility]T [facility]FORMATIONPatient MRN Name Date of Age Gend*PT [id number] Dilan Kirk 1960 60 years M IPPT Location Admission Date/Time Visit ID Attending [id number] 12/13/20 1238 --- Crystal Neal MD([id number]) EPI ID CSN Admitting Provider [id number] Crystal Neal MD([id number])Consult NoteAdmit Date: 12/13/2020Today's Date: December 13eason for consult: AKIRequesting physician: Dr. Dalyessment/Plan:1. JOHN: Patient has a creatinine of 4.9 potassium 6.5. He has been takingNSAIDs daily for the past 10 days. He is diabetic but denies any prior kidneyproblems. His urinalysis shows 2+ protein 3+ blood and numerous granular castssuggestive of acute injury. He cannot rule out a glomerular etiology althoughno cellular casts were seen. We will urgently dialyze him for hyperkalemia andinitiate work-up for JOHN including glomerulonephritis. Hopefully this is ATNalthough his creatinine is much higher than would be anticipated if this wasacute from something that happened overnight. NSAIDs are probably playing asignificant role in his JOHN. He is taking losartan which probably contributedto his hyperkalemia with JOHN. Creatinine was 1.0 on October 13, 2020.2. Acute hepatic failure: Patient has severely abnormal LFTs of unclearetiology. He denies drinking regularly but had few drinks which has somealcohol in it at a fair on Sunday. He will need a full work-up includinghepatitis panel, imaging and a GI consult. LFTs were normal on January 05. Ventricular tachycardia: Patient had asymptomatic V. tach for which she hadto be cardioverted in the emergency room. He seems to be hemodynamically stableat this time without any chest pain or palpitation. He is being seen bycardiology. He had a cath in the past which showed some coronary artery diseasebut did not need intervention.4. Type 2 diabetes mellitus: Patient has been well controlled recently with A1cof 6.1 according to him. He is careful with his diet and lost 30 pounds. He joseph Metformin with suggest that his renal function was normal.5. Hypertension: Patient is on losartan, chlorthalidone and bisoprolol.I discussed the case with Dr. Erickson, patient and his . I explained theneed for urgent dialysis and will have a mahurkar inserted after the patient istransferred to the ICU. I spoke to the ICU attending who accepted the patientfor transfer.We will obtain CT of the abdomen after dialysis to determine cause of his acuteliver and kidney injury.Subjective:60-year-old white male with history of type 2 diabetes for about 4 yearspresented with lightheadedness earlier today to [facility] [place]. He wasnoted to be in acute renal failure with severely abnormal liver function testand transferred to [facility] management. Patient hadsome soda with some alcohol in it on Sunday at a fair. He was fine until thismorning when he got lightheaded. He was noted to have a creatinine 4.9 andpotassium of 7.0. Repeat potassium was 6.5. His AST was 5044 and ALT 5023.While he was in the emergency room he had V. tach but was awake and had to becardioverted. He has hypertension and has been taking losartan 100 mg dailywith chlorthalidone 12.5 mg daily. He also admits to taking ibuprofen twice aday for the past 10 days. His recent A1c was 6.1 and has lost 30 pounds. Hetakes Metformin with Steglatro. He does not drink any alcohol and smokes a fewcigarettes a day. He has history of coronary artery disease and had a cath [id number] which showed mild CAD and did not require intervention. He has beenevaluated a couple times earlier in the year when troponin was drawn. Does nothave any history of hepatitis or transfusions. He is and lives with hiswife. No nausea, vomiting or abdominal pain. No diarrhea. He has been voidingwell. No hematuria, foamy urine or difficulty voiding. No history of kidneystones or UTI. No history of prostate problems. He has history of edema but iscontrolled with chlorthalidone.Creatinine was 1.0 on October 13, 2020 and LFTs were normal on January 06, 2020.ROS: No history of stroke. No thyroid problems. Vascular disease. No cough,hemoptysis. Denies any chest pain or palpitation. No shortness of breath.PMH:Past Medical History:Diagnosis Date Asthma Cardiomegaly COPD (chronic obstructive pulmonary disease) Coronary artery disease Diabetes mellitus History of herniated intervertebral disc Hypertension DE (myocardial infarction) Sinusitis Umbilical herniaFH: No family history on file.SH:Social HistorySocioeconomic History Marital status: Spouse name: Not on file Number of children: Not on file Years of education: Not on file Highest education level: Not on fileOccupational History Not on fileTobacco Use Smoking status: Current Every Day Smoker Types: Cigarettes, Electronic Cig arettes Smokeless tobacco: Current User Tobacco comment: 1 cigarette daily/1.6 E-CigSubstance and Sexual Activity Alcohol use: Not Currently Comment: rarely Drug use: No Sexual activity: Not on fileOther Topics Concern Not on fileSocial History Narrative Not on fileSocial Determinants of HealthFinancial Resource Strain: Difficulty of Paying Living Expenses:Food Insecurity: Worried About Running Out of Food in the Last Year: Ran Out of Food in the Last Year:Transportation Needs: Lack of Transportation (Medical): Lack of Transportation (Non-Medical):Physical Activity: Days of Exercise per Week: Minutes of Exercise per Session:Stress: Feeling of Stress :Social Connections: Frequency of Communication with Friends and Family: Frequency of Social Gatherings with Friends and Family: Attends Bahai Services: Active Member of Clubs or Organizations: Attends Club or Organization Meetings: Marital Status:Intimate Partner Violence: Fear of Current or Ex-Partner: Emotionally Abused: Physically Abused: Sexually Abused:Meds:Medications Prior to AdmissionMedication Sig Dispense Refill Last Dose amLODIPine (NORVASC) 10 MG tablet Take 10 mg by mouth daily bisoprolol (ZEBETA) 5 MG tablet Take 5 mg by mouth daily Ertugliflozin L-PyroglutamicAc (Steglatro) 15 MG TABS Take by mouth montelukast (SINGULAIR) 10 MG tablet Take 10 mg by mouth nightly albuterol (PROVENTIL HFA;VENTOLIN HFA) 108 (90 BASE) MCG/ACT inhaler Inhale 2puffs every 4 (four) hours as needed for wheezing aspirin (ASPIRIN) 81 MG chewable tablet Chew 81 mg daily atorvastatin (LIPITOR) 80 MG tablet Take 80 mg by mouth daily clopidogrel (PLAVIX) 75 MG tablet Take 75 mg by mouth daily losartan (COZAAR) 25 MG tablet Take 25 mg by mouth daily metFORMIN (GLUCOPHAGE) 850 MG tablet Take 850 mg by mouth daily with breakfast nitroglycerin (NITROSTAT) 0.[address] 0.4 mg under the tongue every5 (five) minutes as needed for chest pain PARoxetine (PAXIL) 20 MG tablet Take 20 mg by mouth every morning [DISCONTINUED] atenolol (TENORMIN) 50 MG tablet Take 50 mg by mouth 2 (two)times a dayAll: No Known Drug AllergiesObjective:Blood Pressure: BP: 127/75 Pulse: Heart Rate: 61Temperature: Temp: 98.7 F Respirations: Resp: 18Admission Weight: O2 Saturation: SpO2: 96 %Today's Weight: BMI: There is no height or weight on file to calculate BMI.No intake or output data in the 24 hours ending 12/13/20 1350No intake/output data recorded.Gen: No resp distressHEENT: Conj pink, sclera mildly ictericNeck: JVD+Lungs: ClearHeart: RRR, no m/g/rAbd: soft, nontender, ventral hernia notedE xt: No edemaVasc: DP+Neuro: IntactLabs reviewed today at 1:50 PM :Labs from [facility] reviewedImaging:CXR from [facility] reviewedCurrent Meds:Scheduled Meds: amLODIPine 10 mg Oral Daily [START ON 12/14/2020] aspirin 81 mg Oral Daily bisoprolol 5 mg Oral Daily [START ON 12/14/2020] clopidogrel 75 mg Oral Daily insulin glargine 6 Units Subcutaneous Nightly insulin lispro 1-4 Units Subcutaneous With meals sliding scale montelukast 10 mg Oral Nightly normal saline flush 3 mL Intravenous Q8H NINA normal saline flush 3 mL Intravenous Per ProtocolContinuous Infusions: heparin (porcine) in NaClPRN Meds:.albuterol, atropine sulfate, heparin (porcine), nitroglycerin,perflutren lipid microsphere (DEFINITY) 8.476 mg in 10 mL NS IVSalatlaf Cedillo MD Name Value Range Interpretation Code Description Data Morena rce(s) Supporting Document(s) ID Date Data Source [id number] 12/13/2020 05:09:46 PM EDT [facility] Name Value Range Interpretation Code Description Data Morena rce(s) Supporting Document(s) POC TEMPERATURE [facility] 37.0C POC SOURCE [facility] PUNCTURE SITE [facility] O2 THERAPY [facility] CP BYPASS [facility] KIERAN TEST [facility] POC VENOUS PH 7.35 pH (7.33-7.43) [facility] POC VENOUS PCO2 45.9 MM HG (38.0-50.0) [facility] POC VENOUS PO2 28 MM HG (30-50) L [facility] POC VENOUS SO2 49 % (60-85) L [facility] POC VENOUS BASE DEFICIT 1 MMOL/L (0-2) [facility] POC VENOUS HCO3 25.5 MMOL/L (23.0-27.0) [facility] POC VENOUS TOTAL CO2 27 MMOL/L (24-28) [facility] PERFORMED BY [facility] CLINICAL STAFF POC HCT 47 % (41.0-53.0) [facility] POC SODIUM 134 MMOL/L (136-145) L [facility] POC POTASSIUM 5.4 MMOL/L (3.6-5.2) H [facility] POC IONIZED CALCIUM 4.9 MG/DL (4.6-5.3) [facility] POC GLU 106 MG/DL (70-99) H [facility] PERFORM LAB [facility] ID Date Data Source [id number] 12/13/2020 05:06:44 PM EDT [facility] Name Value Range Interpretation Code Description Data Morena rce(s) Supporting Document(s) POC NOVA GLU 112 mg/dL (70-99) H [facility] [place] PERFORMED BY [facility] CLINICAL STAFF ID Date Data Source [id number] 12/13/2020 08:48:30 PM EDT [facility] Name Value Range Interpretation Code Description Data Morena rce(s) Supporting Document(s) HEP B S AB QUANT @ [facility] A MINIMUM LEVEL OF 10 mIU/mL IS SUGGESTE DTO INSURE COMPLETE IMMUNITY. IF NEGATIVEOR LESS THAN 10 mIU/mL AT 1 TO 2 MONTHSFOLLOWING THE FINAL DOSE OF THE HEP BVACCINE SERIES, REVACCINATION ISRECOMMENDED FOR SELECT PATIENT POPULATIONS(SEE MMWR 2018:67(1) APR 20, 2017). ID Date Data Source [id number] 12/13/2020 08:48:30 PM EDT [facility] Name Value Range Interpretation Code Description Data Morena rce(s) Supporting Document(s) HEPATITIS B S AG @ (NEG) [facility] HEP. B CORE IGM @ (NEG) [facility] HEPATITIS A AB IGM @ (NEG) [facility] HEPATITIS C AB @ (NEG) [facility] NOT INFECT ED WITH HCV, UNLESS RECENTINFECTION IS SUSPECTED OR OTHER EVIDENCEEXISTS TO INDICATE HCV INFECTION. ID Date Data Source [id number] 12/13/2020 08:48:30 PM EDT [facility] Name Value Range Interpretation Code Description Data Morena rce(s) Supporting Document(s) HEP B CORE AB TOTAL @ (NEG) [facility] ID Date Data Source [id number] 12/13/2020 07:57:54 PM EDT [facility] Name Value Range Interpretation Code Description Data Morena rce(s) Supporting Document(s) CHOLESTEROL @ 107 mg/dL (0-200) [facility] TRIGLYCERIDE @ 170 mg/dL (30-200) [facility] HDL CHOLESTEROL @ 30 mg/dL (>40) L [facility] PER NCEP ATP III GUIDELINES:RESULTS LOWE R THAN 40 MG/DL ARE SUGGESTIVEOF INCREASED RISK FOR CORONARY ARTERYDISEASE. RESULTS > OR = TO 60 MG/DL ARECONSIDERED A NEGATIVE RISK FACTOR. CHOL/HDL RATIO 3.6 RATIO [facility] INTERPRETATION OF CHOL-HDL RATIO CHD RISK FEMALE MALEVERY HIGH >8.3 >14.3HIGH 5.6- 8.3 6.7- 14.3AVERAGE 3.7- 5.6 4.0- 6.7BELOW AVERAGE 2.5- 3.7 2.7- 4.0PROTECTED <2.5 <2.7 LDL CHOL (CALC) 43 mg/dL (<130) [facility] PER NCEP ATP III GUIDELINES: OPTIMAL < 100 NEAR OPTIMAL 100 - 129BORDERLINE HIGH 130 - 159 HIGH 160 - 189 VERY HIGH > 189 ID Date Data Source [id number] 12/13/2020 07:17:50 PM EDT [facility] Name Value Range Interpretation Code Description Data Morena rce(s) Supporting Document(s) TROPONIN I 5.89 ng/mL (<0.05) H [facility] Less than 0.05: Myocardial injury unlike lyGreater than or equal to 0.05: Highly suggestive of myocardial injuryCorrelation with rise and/or fall ofserial troponins, clinical symptomsand ECG changes is necessary.ALERTED CRITICAL RESULT [place] ([id number]) [place] [address] ON 12.13.20 AT 18:46 [place] [id number] ID Date Data Source [id number] 12/13/2020 06:02:25 PM EDT [facility] Name Value Range Interpretation Code Description Data Morena rce(s) Supporting Document(s) NT PRO BNP 87758 pg/mL (0-125) H [facility] [place] ID Date Data Source [id number] 12/13/2020 06:02:25 PM EDT [facility] Name Value Range Interpretation Code Description Data Morena rce(s) Supporting Document(s) TSH,ULTRASENSITIVE @ 1.779 mIU/L (0.360-4.170) [facility] PERFORMED AT [address] [place] [address] [facility] [address] ID Date Data Source [id number] 12/13/2020 06:02:25 PM EDT [facility] Name Value Range Interpretation Code Description Data Morena rce(s) Supporting Document(s) SODIUM 133 mmol/L (136-145) L [facility] POTASSIUM 5.2 mmol/L (3.6-5.2) [facility] CHLORIDE 100 mmol/L (100-108) [facility] CO2 21 mmol/L (22-31) L [facility] ANION GAP 12 mmol/L (7-16) [facility] UREA NITROGEN 60 mg/dL (7-24) H [facility] CREATININE 4.30 mg/dL (0.80-1.30) H [facility] BUN/CREAT RATIO 14.0 RATIO (10.0-20.0) [facility] GLUCOSE 92 mg/dL (70-99) [facility] CALCIUM 9.8 mg/dL (8.4-10.2) [facility] TOTAL PROTEIN 6.9 g/dL (6.4-8.2) [facility] ALBUMIN 3.7 g/dL (3.5-4.6) [facility] GLOBULIN 3.2 g/dL (2.7-4.3) [facility] ALB/GLOB RATIO 1.2 RATIO [facility] ALKALINE PHOSPHATASE 52 U/L (45-117) [facility] BILIRUBIN,TOTAL 0.7 mg/dL (0.0-1.0) [facility] PLEASE NOTE:Total bilirubin results may be falselyelevated in patients taking Eltrombopag. AST (SGOT) 7665 U/L (11-39) H [facility] ALT (SGPT) 6369 U/L (12-78) H [facility] GFR 14 ml/min/1.73m2 (>59) L [facility] GFR ( AMER) 17 ml/min/1.73m2 (>59) L [facility] GFR INTERPRETATION [facility] --NORMAL KIDNEY FUNCTION OR MILD DISEASE - GFR >OR= 60CHRONIC KIDNEY DISEASE - GFR 15 - 59RENAL FAILURE - GFR <15 Est. GFR calculation based on the MDRDstudy equation, which assumes a steadystate for creatinine. Est. GFR should notbe used for medication dosing. ID Date Data Source [id number] 12/13/2020 05:44:07 PM EDT [facility] Name Value Range Interpretation Code Description Data Morena rce(s) Supporting Document(s) PHOSPHORUS 7.2 mg/dL (2.5-4.5) H [facility] ID Date Data Source [id number] 12/13/2020 05:44:07 PM EDT [facility] Name Value Range Interpretation Code Description Data Morena rce(s) Supporting Document(s) MAGNESIUM 2.0 mg/dL (1.7-2.4) [facility] ID Date Data Source [id number] 12/13/2020 05:44:07 PM EDT [facility] Name Value Range Interpretation Code Description Data Morena rce(s) Supporting Document(s) ETHANOL <3 mg/dL (0-3) [facility] ID Date Data Source [id number] 12/13/2020 05:37:26 PM EDT [facility] Name Value Range Interpretation Code Description Data Morena rce(s) Supporting Document(s) HEMOGLOBIN A1C @ 6.7 % (4.0-6.0) H [facility] Performed using [employer] [place] immunoassa y.Care must be taken when interpreting MiH1vgmyrewi in patients with a hemoglobin variantor decreased erythrocyte lifespan. Values 5.7 - 6.4% suggest prediabetes.Values >=6.5% are diagnostic for diabetes.REFERENCE: DIABETES CARE 2018: 41(S13-S27).PERFORMED AT [address] [place] [address] EST AVERAGE GLUCOSE 146 mg/dL [facility] ID Date Data Source [id number] 12/13/2020 05:30:16 PM EDT [facility] Name Value Range Interpretation Code Description Data Morena rce(s) Supporting Document(s) APTT 27.6 s (22.0-34.3) [facility] [place] ID Date Data Source [id number] 12/13/2020 05:30:16 PM EDT [facility] Name Value Range Interpretation Code Description Data Morena rce(s) Supporting Document(s) PT 16.3 s (9.2-11.9) H [facility] INR 1.59 [facility]UO SUGGESTED THERAPEUTIC RANGES USING INR F ORSTABILIZED ANTICOAGULATED PATIENTS:STANDARD DOSE THERAPY INR 2.0-3.0 DVT, PE, PREVENT DVT OR EMBOLISMHIGH DOSE THERAPY INR 2.5-3.5 PREVENT EMBOLISM FROM MECHANICAL HEART VALVE ID Date Data Source [id number] 12/13/2020 05:13:26 PM EDT [facility] Name Value Range Interpretation Code Description Data Morena rce(s) Supporting Document(s) WBC 14.4 10*3/uL (4.1-11.0) H [facility] RBC 4.93 10*6/uL (4.60-6.10) [facility] HGB 15.9 g/dL (13.5-18.0) [facility] HCT 46.9 % (41.0-53.0) [facility] MCV 95.2 fL (80.0-95.0) H [facility] MCH 32.3 pg (27.0-32.0) H [facility] MCHC 33.9 g/dL (32.0-36.0) [facility] RDW 14.5 % (10.5-14.5) [facility] PLT 126 10*3/uL (150-450) L [facility] MPV 9.8 fL (7.1-10.7) [facility] NEUT % 85.3 % (35.0-75.0) H [facility] LYMPH % 10.5 % (16.0-52.0) L [facility] MONO % 4.0 % (0.0-8.0) [facility] EOS % 0.1 % (0.0-5.0) [facility] BASO % 0.1 % (0.0-4.0) [facility] NEUT # 12.3 10*3/uL (1.8-7.7) H [facility] [place] LYMPH # 1.5 10*3/uL (1.2-4.8) [facility] MONO # 0.6 10*3/uL (0.0-0.8) [facility] Eosinophils [#/volume] in Blood by Automated count 0.0 10*3/uL (0.0-0 .5) [facility] BASO # 0.0 10*3/uL (0.0-0.2) [facility] ID Date Data Source [id number] 12/20/2020 01:41:37 PM EDT [facility] Name Value Range Interpretation Code Description Data Morena rce(s) Supporting Document(s) PROTEIN,URINE 148 mg/dL [facility] URINE PROTEIN MAY BE FALSELY ELEVATEDDUR ING TREATMENT WITH AMINOGLYCOSIDESDUE TO METHOD INTERFERENCE. ALBUMIN URINE 35.7 % [facility] ALPH1 1 URINE 64.3 % [facility] TOTAL OTHER FRACTIONS ALPHA 2 URINE [facility] BETA URINE [facility] GAMMA URINE [facility] INTERPRETATION: [facility] MIXED PATTERN PROTEINURIAI.MD HERIBERTO 12/16/20Interpretation performed [place] [address] ID Date Data Source [id number] 12/13/2020 10:14:50 PM EDT [facility] Name Value Range Interpretation Code Description Data Morena rce(s) Supporting Document(s) URINE WBC (0-5) [facility] URINE RBC (0-2) [facility] EPITHELIAL CELLS 1+ [HPF] [facility] AMORPHOUS 2+ [HPF] [facility] COARSE GRAN CAST [facility] ID Date Data Source [id number] 12/13/2020 08:02:02 PM EDT [facility] Name Value Range Interpretation Code Description Data Morena rce(s) Supporting Document(s) PROTEIN,URINE 148 mg/dL [facility] URINE PROTEIN MAY BE FALSELY ELEVATEDDUR ING TREATMENT WITH AMINOGLYCOSIDESDUE TO METHOD INTERFERENCE. CREATININE,URINE 159.00 mg/dL [facility] URINE TP/CR RATIO 0.93 RATIO (0.00-0.20) H [facility] ID Date Data Source [id number] 12/13/2020 08:02:02 PM EDT [facility] Name Value Range Interpretation Code Description Data Morena rce(s) Supporting Document(s) RANDOM URINE CREAT 159.00 mg/dL [facility] ID Date Data Source [id number] 12/13/2020 08:02:02 PM EDT [facility] Name Value Range Interpretation Code Description Data Morena rce(s) Supporting Document(s) RANDOM URINE SODIUM 36 mmol/L [facility] RAND URINE POTASSIUM 84.9 mmol/L [facility] RAND. URINE CHLORIDE 20 mmol/L [facility] ID Date Data Source [id number] 12/13/2020 07:49:14 PM EDT [facility] Name Value Range Interpretation Code Description Data Morena rce(s) Supporting Document(s) COLOR [facility] APPEARANCE [facility] SPEC GRAV URINE 1.023 (1.003-1.030) [facility] PH URINE 5.0 (5.0-7.5) [facility] LEUK ESTERASE (NEG) [facility] NITRITE URINE (NEG) [facility] PROTEIN URINE 1+ (NEG) A [facility] GLUCOSE URINE 2+ (NEG) A [facility] KETONE URINE (NEG) A [facility] [place] UROBILINOGEN 0.2 mg/dL (0-1.0) [facility] [place] BILIRUBIN URINE 1+ (NEG) A [facility] INTERFERING SUBSTANCES MAY CAUSE FALSEPO SITIVE BILIRUBIN, WHICH HAS BEENSHOWN TO BE CLINICALLY INSIGNIFICANT.CORRELATE WITH OTHER TESTING. BLOOD/HGB URINE 2+ (NEG) A [facility] ID Date Data Source [id number] 12/13/2020 09:32:00 AM EDT [facility] ([facility]) Name Value Range Interpretation Code Description Data Morena rce(s) Supporting Document(s) Natriuretic peptide.B prohormone N-Terminal [Mass/volu me] in Serum or Plasma 35007 pg/mL [facility] ([facility] [facility]) Magnesium [Mass/volume] in Serum or Plasma 1.9 mg/dL 1.8-2.4 [facility] ([facility]) Thyrotropin [Units/volume] in Serum or Plasma 2.450 uIU/ML 0.358-3.74 0 [facility] ([facility]) Lipoprotein lipase [Enzymatic activity/volume] in Serum or P lasma 204 U/L 73-393 [facility] ([facility]) ID Date Data Source [id number] 12/13/2020 09:32:00 AM EDT [facility] ([facility]) Name Value Range Interpretation Code Description Data Morena rce(s) Supporting Document(s) Glucose, Fasting 150 mg/dL 70-100 [facility] ([facility]) Creatinine For GFR 4.94 mg/dL 0.70-1.30 [facility] ([facility]) Blood Urea Nitrogen 58 mg/dL 7-18 [facility] ([facility]) Glomerular Filtration Rate 12.9 MED [facility] ([facility]) <content>Units are mL/min/1.73 m2</content>
<content></content>
<content>Chronic Kidney Disease Staging per NKF:</content>
<content></content>
<content>Stage I & II GFR >=60 Normal to Mildly Decreased</content>
<content>Stage III GFR 30-59 Moderately Decreased</content>
<content>Stage IV GFR 15-29 Severely Decreased</content>
<content>Stage V GFR <15 Very Little GFR Left</content>
<content>ESRD GFR <15 on FEED MILL LAB TECHNICIAN</content>
<content></content> Sodium Level 133 meq/L 136-145 [facility] ([facility]) Chloride Level 97 meq/L 98-107 [facility] ([facility]) Potassium Serum 6.5 meq/L 3.5-5.1 Above upper panic limits [facility] ([facility]) Carbon Dioxide Level 21 meq/L 21-32 [facility] ([facility]) Anion Gap 15 meq/L 8-16 [facility] Calcium Level 8.8 mg/dL 8.5-10.1 [facility] ([facility]) ID Date Data Source [id number] 12/13/2020 09:32:00 AM EDT [facility] Name Value Range Interpretation Code Description Data Morena rce(s) Supporting Document(s) Ast/Sgot 5044 U/L 7-37 [facility] ([facility]) Alkaline Phosphatase 49 U/L 45-117 [facility] ([facility]) Bilirubin,Total 0.8 mg/dL 0.2-1.0 [facility] ([facility]) Alt/SGPT 5023 U/L 12-78 [facility] ([facility]) Bilirubin,Direct 0.4 mg/dL 0.0-0.2 [facility] ([facility]) Total Protein 6.7 GM/DL 6.4-8.2 [facility] Albumin 3.4 GM/DL 3.2-5.2 [facility] ([facility]) Albumin/Globulin Ratio 1.0 [facility] ([facility]) ID Date Data Source [id number] 12/13/2020 08:44:00 AM EDT [facility] ([facility]) Name Value Range Interpretation Code Description Data Morena rce(s) Supporting Document(s) Prothrombin Time 22.4 s 12.7-14.5 [facility] ([facility]) Inr 1.92 [facility] ([facility]) THERAPUTIC HUMAN INR VALUES INDICATIONS NORMAL RANGES PROPHYLAXIS/TREATMENT OF: VENOUS THROMBOSIS 2.0-3.0 PULMONARY EMBOLISM 2.0-3.0 PREVENTION OF SYSTEMIC EMBOLISM FROM: TISSUE HEART VALVES 2.0-3.0 ACUTE MYOCARDIAL INFARCTION 2.0-3.0 VALVULAR HEART DISEASE 2.0-3.0 ATRIAL FIBRILLATION 2.0-3.0 MECHANICAL VALVES(HIGH RISK) 2.5-3.5 RECURRENT MYOCARDIAL INFARCTION 2.5-3.5 ID Date Data Source [id number] 12/13/2020 08:40:00 AM EDT [facility] Name Value Range Interpretation Code Description Data Morena rce(s) Supporting Document(s) SARS coronavirus 2 RNA [Presence] in Res piratory specimen by VICKEY with probe detection NEGATIVE [facility] This lab was ordered by [facility] a nd reported by [facility]. ID Date Data Source [id number] 07/27/2020 03:50:00 PM EDT [facility] ([facility]) Name Value Range Interpretation Code Description Data Morena rce(s) Supporting Document(s) Hemoglobin A1c/Hemoglobin.total in Blood 8.5 [facility] ([facility]) ID Date Data Source [id number] 07/27/2020 03:50:00 PM EDT [facility] ([facility] Name Value Range Interpretation Code Description Data Morena rce(s) Supporting Document(s) Triglycerides 297 [facility] ([facility] HDL 27 [facility] ([facility] Cholesterol 117 [facility] ([facility] Chol/HDL Ratio 4.333 [facility] ([facility] Cholesterol in LDL [Mass/volume] in Serum or Plasma by calculation 31 [facility] ([facility] ID Date Data Source [id number] 07/21/2020 04:19:00 PM EDT [facility] ([facility] Name Value Range Interpretation Code Description Data Morena rce(s) Supporting Document(s) Troponin I.cardiac [Mass/volume] in Serum or Plasma 0.13 [facility] ([facility] ID Date Data Source [id number] 07/21/2020 04:19:00 PM EDT [facility] ([facility]) Name Value Range Interpretation Code Description Data Morena rce(s) Supporting Document(s) Troponin I.cardiac [Mass/volume] in Serum or Plasma 0.11 [facility] ([facility] ID Date Data Source [id number] 07/21/2020 03:32:00 PM EDT [facility] ([facility]) Name Value Range Interpretation Code Description Data Morena rce(s) Supporting Document(s) White Blood Count 12.9 5.0-10.0 [facility] ([facility] Red Blood Count 5.50 4.00-5.40 [facility] ([facility] Hematocrit 52.3 [facility] ([facility] Platelets 214 172-450 [facility] ([facility] Hemoglobin 17.9 [facility] ([facility] ID Date Data Source [id number] 01/06/2020 11:04:00 AM EDT [facility] ([facility]) Name Value Range Interpretation Code Description Data Morena rce(s) Supporting Document(s) Free T4 1.07 [facility] ([facility] Thyroid Stimulating Hormone 2.8000 ME DENT ([facility] ID Date Data Source [id number] 01/06/2020 11:04:00 AM EDT [facility] ([facility] Name Value Range Interpretation Code Description Data Morena rce(s) Supporting Document(s) Alanine aminotransferase [Enzymatic activity/volume] in Serum or Pl asma 42 [facility] ([facility] Albumin [Mass/volume] in Serum or Plasma 3.9 [facility] ([facility] Carbon dioxide, total [Moles/volume] in Serum or Plasma 27 [facility] ([facility] Chloride [Moles/volume] in Serum or Plasma 98 [facility] ([facility] Calcium [Mass/volume] in Serum or Plasma 9.4 [facility] ([facility] Potassium [Moles/volume] in Serum or Plasma 4.8 [facility] ([facility] Alkaline phosphatase [Enzymatic activity/volume] in Serum or Plasma 5 7 [facility] ([facility] Protein [Mass/volume] in Serum or Plasma 7.5 [facility] ([facility] Sodium 134 [facility] ([facility] Aspartate aminotransferase [Enzymatic activity/volume] in Serum or Plasma 24 [facility] ([facility] Glucose 142 70-100 [facility] ([facility] Creatinine For GFR 1.30 [facility] ([facility] Urea nitrogen [Mass/volume] in Serum or Plasma 27 [facility] ([facility] ID Date Data Source [id number] 01/06/2020 11:04:00 AM EDT [facility] ([facility] Name Value Range Interpretation Code Description Data Morena rce(s) Supporting Document(s) Triglycerides 427 [facility] ([facility] HDL 27 [facility] ([facility]olesterol 145 [facility] ([facility] Cholesterol in LDL [Mass/volume] in Serum or Plasma by calculation 11 8 [facility] ([facility] Chol/HDL Ratio 5.370 [facility] ([facility] ID Date Data Source [id number] 01/06/2020 11:04:00 AM EDT [facility] ([facility] Name Value Range Interpretation Code Description Data Morena rce(s) Supporting Document(s) Hemoglobin A1c/Hemoglobin.total in Blood 7.9 [facility] ([facility]) ID Date Data Source [id number] 01/06/2020 11:04:00 AM EDT [facility] ([facility]) Name Value Range Interpretation Code Description Data Morena rce(s) Supporting Document(s) Red Blood Count 4.70 4.30-6.10 [facility] ([facility]) White Blood Count 11.1 4.0-10.0 [facility] ([facility]) Hemoglobin 15.5 [facility] ([facility]) Hematocrit 46.0 [facility] ([facility]) Platelets 201 150-450 [facility] Procedure Social History Code Duration Value Status Description Data Source(s ) Smoking 01/19/2021 12:00:00 AM EDT Former Smoker completed Former Smoker eCW1 ([facility]) Smoking 12/24/2020 12:00:00 AM EDT Former Smoker completed Former Smoker eCW1 ([facility]) Smoking 12/24/2020 12:00:00 AM EDT Former Smoker completed Former Smoker eCW1 ([facility]) Smoking 12/23/2020 12:00:00 AM EDT Patient is a former smoker completed Patient is a former smoker [facility] ([facility]) Alcohol intake 12/16/2020 12:00:00 AM EDT Ex-drinker (finding) comp leted Ex- drinker (finding) [facility] Smoking 10/15/2020 12:00:00 AM EDT Former Smoker completed Former Smoker eCW1 ([facility]) Smoking 07/23/2020 12:00:00 AM EDT Former Smoker completed Former Smoker eCW1 ([facility]) Smoking 07/23/2020 12:00:00 AM EDT Former Smoker completed Former Smoker eCW1 ([facility]) Smoking 07/23/2020 12:00:00 AM EDT Former Smoker completed Former Smoker eCW1 ([facility]) Smoking 07/23/2020 12:00:00 AM EDT Former Smoker completed Former Smoker eCW1 ([facility]) Smoking 07/23/2020 12:00:00 AM EDT Former Smoker completed Former Smoker eCW1 ([facility]) Smoking 07/23/2020 12:00:00 AM EDT Former Smoker completed Former Smoker eCW1 ([facility]) Smoking 01/15/2020 12:00:00 AM EDT Former Smoker completed Former Smoker eCW1 ([facility]) Smoking 01/15/2020 12:00:00 AM EDT Former Smoker completed Former Smoker eCW1 ([facility]) Smoking 01/15/2020 12:00:00 AM EDT Former Smoker completed Former Smoker eCW1 ([facility]) Smoking 01/15/2020 12:00:00 AM EDT Former Smoker completed Former Smoker eCW1 ([facility]) Vital Signs ID Date Data Source UNK Name Value Range Interpretation Code Description Data Source(s) Respiratory rate 18 /min 18 /min eCW1 ([facility]) Body weight 203.2 [lb_av] 203.2 [lb_av] eCW1 ([facility]) Body temperature 96.8 [degF] 96.8 [degF] eCW1 ( [facility]) Body height [in_i] eCW1 (Formerly [facility], 1928–1983) Body mass index (BMI) [Ratio] 31.82 kg/m2 31.82 kg/m2 W1 ([facility]) Heart rate 86 /min 86 /min eCW1 ([facility]ly [facility]) Systolic blood pressure 120 mm[Hg] 120 mm[Hg] e CW1 ([facility]) Diastolic blood pressure 70 mm[Hg] 70 mm[Hg] eCW1 ([facility]) Body weight 198 [lb_av] 198 [lb_av] eCW1 ([facility] Body height [in_i] eCW1 (Formerly [facility], 1928[facility]) Body mass index (BMI) [Ratio] 31.01 kg/m2 31.01 kg/m2 eCW1 ([facility]) Heart rate 96 /min 96 /min eCW1 ([facility]ly [facility]) Respiratory rate 18 /min 18 /min eCW1 ([facility]) Systolic blood pressure 140 mm[Hg] 140 mm[Hg] e CW1 ([facility]) Body temperature 97.8 [degF] 97.8 [degF] eCW1 ( [facility]) Diastolic blood pressure 70 mm[Hg] 70 mm[Hg] eCW1 ([facility]) Body weight 89.81 kg 89.81 kg eCW1 (Formerly [facility], [facility]) Systolic blood pressure--sitting 124 mm[Hg] 124 mm[Hg] [facility] ([facility]) Ra, medium cuff Body weight 198.00 [lb_av] 198.00 [lb_av] MEDEN T ([facility]) Body height 68 [in_i] 68 [in_i] [facility] ([facility]) 5'8" Body mass index (BMI) [Ratio] 30.1 kg/m2 30.1 k g/m2 [facility] ([facility]) Diastolic blood pressure--sitting 82 mm[Hg] 82 mm[Hg] [facility] ([facility]) Ra, medium cuff Systolic blood pressure 104 mm[Hg] 104 mm[Hg] [facility] Diastolic blood pressure 64 mm[Hg] 64 mm[Hg] [facility] Heart rate 63 /min 63 /min [facility] Body temperature 36.89 Hawa 36.89 Hawa [facility] Respiratory rate 18 /min 18 /min [facility] Oxygen saturation in Arterial blood by Pulse oximetry 94 % 94 % [facility] Body weight 90.2 kg 90.2 kg [facility] Post dialysis wt Body mass index (BMI) [Ratio] 30.24 kg/m2 30.24 kg/m2 [facility] Respiratory rate 18 /min 18 /min eCW1 ([facility]) Body temperature 97.4 [degF] 97.4 [degF] eCW1 ( [facility]) Systolic blood pressure 138 mm[Hg] 138 mm[Hg] e CW1 ([facility]) Diastolic blood pressure 82 mm[Hg] 82 mm[Hg] eCW1 ([facility]) Body weight 214 [lb_av] 214 [lb_av] eCW1 ([facility]) Body height [in_i] eCW1 (Formerly [facility], 1928[facility]1983) Body mass index (BMI) [Ratio] 33.51 kg/m2 33.51 kg/m2 eCW1 ([facility]) Heart rate 78 /min 78 /min eCW1 ([facility]ly [facility]) Body mass index (BMI) [Ratio] 32.8 kg/m2 32.8 k g/m2 [facility] ([facility]) Body weight 216.00 [lb_av] 216.00 [lb_av] MEDEN T ([facility]) Body height 68 [in_i] 68 [in_i] [facility] ([facility]) 5'8" Systolic blood pressure--sitting 126 mm[Hg] 126 mm[Hg] [facility] ([facility]) Ra, large cuff Diastolic blood pressure--sitting 82 mm[Hg] 82 mm[Hg] [facility] ([facility]) Ra, large cuff Body mass index (BMI) [Ratio] 34.48 kg/m2 34.48 kg/m2 eCW1 ([facility]) Body weight 220.2 [lb_av] 220.2 [lb_av] eCW1 ([facility]) Heart rate 72 /min 72 /min eCW1 ([facility]) Respiratory rate 18 /min 18 /min eCW1 ([facility]) Body height [in_i] eCW1 (Formerly [facility], 1928[facility]1983) Body temperature 97.7 [degF] 97.7 [degF] eCW1 ( [facility]) Systolic blood pressure 110 mm[Hg] 110 mm[Hg] e CW1 ([facility]) Diastolic blood pressure 70 mm[Hg] 70 mm[Hg] eCW1 ([facility]) Heart rate 74 /min 74 /min [facility] ([facility]) Body weight 230.00 [lb_av] 230.00 [lb_av] MEDEN T ([facility]) Body height 68 [in_i] 68 [in_i] [facility] ([facility]) 5'8" Body mass index (BMI) [Ratio] 35.0 kg/m2 35.0 k g/m2 [facility] ([facility]) Respiratory rate 16 /min 16 /min [facility] ( [facility]) nonlabored Systolic blood pressure--sitting 128 mm[Hg] 128 mm[Hg] [facility] ([facility]) Ra, large cuff Diastolic blood pressure--sitting 82 mm[Hg] 82 mm[Hg] [facility] ([facility]) Ra, large cuff Body weight 238 [lb_av] 238 [lb_av] eCW1 ([facility]) Body height [in_i] eCW1 (Formerly [facility], 1928[facility]) Body mass index (BMI) [Ratio] 37.27 kg/m2 37.27 kg/m2 eCW1 ([facility]) Heart rate 78 /min 78 /min eCW1 ([facility]) Respiratory rate 18 /min 18 /min eCW1 ([facility]) Body temperature 97.9 [degF] 97.9 [degF] eCW1 ( [facility]) Systolic blood pressure 140 mm[Hg] 140 mm[Hg] e CW1 ([facility]) Diastolic blood pressure 90 mm[Hg] 90 mm[Hg] eCW1 ([facility]) Patient Treatment Plan of Care Planned Activity Planned Date Details Description Data Source (s) Furosemide 40 MG Oral Tablet 12/17/2020 12:00:00 AM EDT [facility] clopidogrel 75 MG Oral Tablet 12/17/2020 12:00:00 AM EDT [facility] Acetaminophen 325 MG Oral Tablet 12/15/2020 12:45:21 PM EDT [facility] Albuterol 0.83 MG/ML Inhalant Solution 12/13/2020 01:19:02 PM EDT [facility] Nitroglycerin 0.4 MG Sublingual Tablet 12/13/2020 01:16:55 PM EDT [facility] Lancets - 07/30/2020 12:00:00 AM EDT e CW1 ([facility]) FreeStyle Lite Test - 07/30/2020 12:00:00 AM EDT eCW1 ([facility]) Blood Glucose Monitor System w/Device 07/30/2020 12:00:00 AM EDT eCW1 ([facility]) Blood Glucose Test - 07/30/2020 12:00:00 AM EDT eCW1 ([facility]) Lancets - 07/30/2020 12:00:00 AM EDT e CW1 ([facility]) FreeStyle Lite Test - 07/30/2020 12:00:00 AM EDT eCW1 ([facility]) Blood Glucose Monitor System w/Device 07/30/2020 12:00:00 AM EDT eCW1 ([facility]) Blood Glucose Test - 07/30/2020 12:00:00 AM EDT eCW1 ([facility]) Lancets - 07/30/2020 12:00:00 AM EDT e CW1 ([facility]) FreeStyle Lite Test - 07/30/2020 12:00:00 AM EDT eCW1 ([facility]) Blood Glucose Monitor System w/Device 07/30/2020 12:00:00 AM EDT eCW1 ([facility]) Blood Glucose Test - 07/30/2020 12:00:00 AM EDT eCW1 ([facility]) Lancets - 07/30/2020 12:00:00 AM EDT e CW1 ([facility]) FreeStyle Lite Test - 07/30/2020 12:00:00 AM EDT eCW1 ([facility]) Blood Glucose Monitor System w/Device 07/30/2020 12:00:00 AM EDT eCW1 ([facility]) Blood Glucose Test - 07/30/2020 12:00:00 AM EDT eCW1 ([facility]) 24 HR Metformin hydrochloride 500 MG Extended Release Oral Tablet 07/28/2020 12:00:00 AM EDT eCW1 (Replaced by [facility]) 24 HR Metformin hydrochloride 500 MG Extended Release Oral Tablet 07/28/2020 12:00:00 AM EDT eCW1 (Replaced by [facility]) 24 HR Metformin hydrochloride 500 MG Extended Release Oral Tablet 07/28/2020 12:00:00 AM EDT eCW1 (Replaced by [facility]) 24 HR Metformin hydrochloride 500 MG Extended Release Oral Tablet 07/28/2020 12:00:00 AM EDT eCW1 (Replaced by [facility]) 24 HR Metformin hydrochloride 500 MG Extended Release Oral Tablet 07/28/2020 12:00:00 AM EDT eCW1 (Replaced by [facility]) 24 HR Metformin hydrochloride 500 MG Extended Release Oral Tablet 07/28/2020 12:00:00 AM EDT eCW1 (Replaced by [facility]) 24 HR Metformin hydrochloride 500 MG Extended Release Oral Tablet 07/28/2020 12:00:00 AM EDT eCW1 (Replaced by [facility]) Steglatro 15 MG 02/20/2020 12:00:00 AM EST eCW1 ([facility]) Steglatro 15 MG 02/20/2020 12:00:00 AM EST eCW1 ([facility]) montelukast 10 MG Oral Tablet [Singulair] 02/12/2020 12:00:00 AM ES T eCW1 ([facility]) montelukast 10 MG Oral Tablet [Singulair] 02/12/2020 12:00:00 AM ES T eCW1 ([facility]) Steglatro 15 MG 01/28/2020 12:00:00 AM EDT eCW1 ([facility]) Steglatro 15 MG 01/28/2020 12:00:00 AM EDT eCW1 ([facility]) Steglatro 15 MG 01/28/2020 12:00:00 AM EDT eCW1 ([facility]) Steglatro 15 MG 01/28/2020 12:00:00 AM EDT eCW1 ([facility]) OneTouch Ultra II Test Strips 01/15/2020 12:00:00 AM EDT eCW1 ([facility]) OneTouch Ultra II Test Strips 01/15/2020 12:00:00 AM EDT eCW1 ([facility]) OneTouch Ultra II Test Strips 01/15/2020 12:00:00 AM EDT eCW1 ([facility]) empagliflozin 10 MG Oral Tablet [Jardiance] 01/15/2020 12:00:00 AM EDT eCW1 ([facility]) OneTouch Ultra II Test Strips 01/15/2020 12:00:00 AM EDT eCW1 ([facility]) montelukast 10 MG Oral Tablet [Singulair] 01/15/2020 12:00:00 AM ED T eCW1 ([facility]) empagliflozin 10 MG Oral Tablet [Jardiance] 01/15/2020 12:00:00 AM EDT eCW1 ([facility]) OneTouch Ultra II Test Strips 01/15/2020 12:00:00 AM EDT eCW1 ([facility]) montelukast 10 MG Oral Tablet [Singulair] 01/15/2020 12:00:00 AM ED T eCW1 ([facility]) OneTouch Ultra II Test Strips 01/15/2020 12:00:00 AM EDT eCW1 ([facility]) Ibuprofen 200 MG Oral Tablet [facility] Chlorthalidone 25 MG Oral Tablet [facility] Amlodipine 10 MG Oral Tablet [facility] clopidogrel 75 MG Oral Tablet [facility] PARoxetine (PAXIL) 20 MG tablet [facility] Metformin hydrochloride 850 MG Oral Tablet [facility] Atenolol 50 MG Oral Tablet [facility] Losartan Potassium 50 MG Oral Tablet [facility]
[2021-02-21 00:47] LABS: BASO # 0.1 10^3/uL (0.0-0.2); BASO % 0.9 % (0.0-1.0); EOS # 0.2 10^3/uL (0.0-0.5); EOS % 1.3 % (0.0-3.0); HEMATOCRIT 49.5 % (42.0-52.0); HEMOGLOBIN 16.7 g/dl (13.5-17.5); LYMPH # 2.9 10^3/uL (1.5-5.0); LYMPH % 22.6 % (24.0-44.0); MEAN CORPUSCULAR HEMOGLOBIN 32.1 pg (27.0-33.0); MEAN CORPUSCULAR HGB CONC 33.7 g/dl (32.0-36.5); MEAN CORPUSCULAR VOLUME 95.2 fl (80.0-96.0); MONO # 0.9 10^3/uL (0.0-0.8); MONO % 6.6 % (2.0-8.0); NEUTROPHILS # 8.7 10^3/uL (1.5-8.5); NEUTROPHILS % 68.1 % (36.0-66.0); PLATELET COUNT, AUTOMATED 209 10^3/uL (150-450); WHITE BLOOD COUNT 12.8 10^3/uL (4.0-10.0)
[2021-02-21 01:15] LABS: BLOOD UREA NITROGEN 23 MG/DL (7-18); CALCIUM LEVEL 9.2 MG/DL (8.5-10.1); CARBON DIOXIDE LEVEL 27 MEQ/L (21-32); CHLORIDE LEVEL 102 MEQ/L (98-107); CREATININE FOR GFR 1.23 MG/DL (0.70-1.30); GLOMERULAR FILTRATION RATE > 60.0 (>56); GLUCOSE, FASTING 252 MG/DL (70-100); MAGNESIUM LEVEL 1.8 MG/DL (1.8-2.4); POTASSIUM SERUM 3.5 MEQ/L (3.5-5.1); SODIUM LEVEL 140 MEQ/L (136-145)
--- OUTSIDE RECORDS SUMMARY | 2021-02-21 01:38 | CCD ---
Author Author [facility] Organization [facility] Address Unknown Phone Unavailable Care Team Providers Care Returned Materials Inspector Name Role Phone Crystal Neal MD Unavailable Unavailable Crystal Neal MD Unavailable Unavailable Crystal Neal MD Unavailable Unavailable Crystal Neal MD Unavailable Unavailable Crystal Nela MD Unavailable Unavailable Crystal Neal MD Unavailable [...] is protected by Article 27-F of the [facility] Public Health law. If you continue you may have access to information: Regarding HIV / AIDS; Provided by facilities licensed or operated by the [facility] Office of Mental Health; or Provided by the [facility] Office for People With Developmental Disabilities. If such information is present, then the following [facility] mandated warning applies: This information has been [...] law may result in a fine or chcf sentence or both. A general authorization for the release of medical or other information is NOT sufficient authorization for further disc losure. Family History Family Member Name Family Member Gender Family Member Status Date o f Status Description Data Source(s) Unknown Male Problem MEDENT ([facility]) Unknown Male Problem MEDENT ([facility]) Unknown Female Problem MEDENT ([facility] Unknown Female Problem MEDENT ([facility] Unknown Female Problem MEDENT ([facility] Encounters Encounter Providers Location Date Indications Data Source(s ) [place] [address] [facility] [address] 01/19/2021 12:00:00 AM EDT [facility] [place] [address] [facility] [address] 12/31/2020 12:00:00 AM EDT eCW1 ([facility]) Outpatient [address] [facility] [place] [address] 12/24/2020 12:00:00 AM EDT eCW1 ([facility]) Outpatient Attender: HAIR ADDISON Main Office 12/23/2020 1 1:15:00 AM EDT MEDENT ([facility]) Inpatient Attender: Jaswinder Castro MDAtt ramirez: LILIANA DEANAttender: Crystal Neal MDAdmitter: Crystal Neal MDConsultant: Mushtaq Hylton MD [id number] 12/13/2020 12:38:00 PM EDT - 12/17/2020 10:44:00 PM EDT [facility] Patient discharged. [place] [address] [facility] [address] 10/15/2020 12:00:00 AM EDT eCW1 ([facility]) [place] [address] [facility] [address] 08/04/2020 12:00:00 AM EDT eCW1 ([facility]) [place] [address] [facility] [address] 07/30/2020 12:00:00 AM EDT eCW1 ([facility]) [place] [address] [facility] [address] 07/30/2020 12:00:00 AM EDT eCW1 ([facility]) Outpatient Attender: HAIR ADDISON Main Office 07/29/2020 0 3:30:00 PM EDT MEDENT ([facility]) [place] [address] [facility] [address] 07/28/2020 12:00:00 AM EDT eCW1 ([facility]) [place] [address] [facility] [address] 07/28/2020 12:00:00 AM EDT eCW1 ([facility]) Outpatient [address] [facility] [place] [address] 07/23/2020 12:00:00 AM EDT eCW1 ([facility]) Outpatient Attender: HAIR ADDISON Main Office 04/27/2020 0 8:45:00 AM EST MEDENT ([facility]) [place] [address] [facility] [address] 02/25/2020 12:00:00 AM EST eCW1 ([facility]) [place] [address] [facility] [address] 02/12/2020 12:00:00 AM EST eCW1 ([facility]) [place] [address] [facility] [address] 01/19/2020 12:00:00 AM EDT eCW1 ([facility]) [place] [address] [facility] [address] 01/15/2020 12:00:00 AM EDT eCW1 ([facility]) Immunizations Vaccine Date Status Description Data Source(s) influenza, recombinant, quadrIvalent,injectable, prese rvative free 01/19/2021 07:56:00 AM EDT completed eCW1 ([facility]) COVID-19 VACC,MRNA(MODERNA)/PF 08/23/2020 12:00:00 AM EDT completed [facility] COVID-19 VACCINE Moderna 08/23/2020 12:00:00 AM EDT completed [facility] Vaccine Series Complete: YESThis Data wa s Submitted to [facility] Via [facility]. COVID-19 VACCINE Moderna 07/25/2020 12:00:00 AM EDT completed [facility] Vaccine Series Complete: NOThis Data was Submitted to [facility] Via [facility]JoK[employer]. COVID-19 VACC,MRNA(MODERNA)/PF 07/25/2020 12:00:00 AM EDT completed [facility] influenza, recombinant, quadrIvalent,injectable, prese rvative free 01/15/2020 07:34:00 AM EDT completed eCW1 ([facility]) influenza, recombinant, quadrIvalent,injectable, prese rvative free 01/15/2020 07:34:00 AM EDT completed eCW1 ([facility]) influenza, recombinant, quadrIvalent,injectable, prese rvative free 01/15/2020 07:34:00 AM EDT completed eCW1 ([facility]) influenza, recombinant, quadrIvalent,injectable, prese rvative free 01/15/2020 07:34:00 AM EDT completed eCW1 ([facility]) influenza, recombinant, quadrIvalent,injectable, prese rvative free 01/15/2020 07:34:00 AM EDT completed eCW1 ([facility]) influenza, recombinant, quadrIvalent,injectable, prese rvative free 01/15/2020 07:34:00 AM EDT completed eCW1 ([facility]) influenza, recombinant, quadrIvalent,injectable, prese rvative free 01/15/2020 07:34:00 AM EDT completed eCW1 ([facility]) influenza, recombinant, quadrIvalent,injectable, prese rvative free 01/15/2020 07:34:00 AM EDT completed eCW1 ([facility]) influenza, recombinant, quadrIvalent,injectable, prese rvative free 01/15/2020 07:34:00 AM EDT completed eCW1 ([facility]) influenza, recombinant, quadrIvalent,injectable, prese rvative free 01/15/2020 07:34:00 AM EDT completed eCW1 ([facility]) influenza, recombinant, quadrIvalent,injectable, prese rvative free 01/15/2020 07:34:00 AM EDT completed eCW1 ([facility]) influenza, recombinant, quadrIvalent,injectable, prese rvative free 01/15/2020 07:34:00 AM EDT completed eCW1 ([facility]) influenza, recombinant, quadrIvalent,injectable, prese rvative free 01/15/2020 07:34:00 AM EDT completed eCW1 ([facility]) influenza, recombinant, quadrIvalent,injectable, prese rvative free 01/15/2020 07:34:00 AM EDT completed eCW1 ([facility]) This CVX code allows reporting of a vacc ination when formulation is unknown (for example, when recording a Influenza vaccination when noted on a vaccination card) 01/08/2020 12:00:00 AM EDT completed <td ID="immun [id number]">Influenza (Unspecified)</td><td>01/08/2020</td><td></td> [facility] Medications Medication Brand Name Start Date [...] AM EDT active MEDENT ([facility]) Furosemide 40 MG Oral Tablet Furosemide 12/22/2020 12:00:00 AM EDT ORAL active MEDENT ([facility]) clopidogrel 75 MG Oral Tablet Clopidogrel Bisulfate 12/22/2020 1 2:00:00 AM EDT ORAL active MEDENT ( [facility]) Metformin hydrochloride 500 MG Oral Tablet Metformin HCL 12/22/2020 12:00:00 AM EDT ORAL active [facility]ENT ([facility]) 40 mg 12/18/2020 12:00:00 AM EDT tablet 60 TAKE ONE TABLET BY MOUTH TWICE A DAY TAKE ONE TABLET BY MOUTH TWICE A DAY SOLD: 12/18/2020 [facility] 75 mg 12/18/2020 12:00:00 AM EDT tablet 30 TAKE ONE TABLET BY MOUTH EVERY DAY TAKE ONE TABLET BY MOUTH EVERY DAY SOLD: 12/18/2020 [facility] lidocaine 1 % injection 1217-6857-22 12/17/2020 05:16:56 PM EDT active As needed, Starting on Sun at 1716, Intra-Procedure [facility] Medication administered onsite Cefazolin 1000 MG Injection ceFAZolin (ANCEF) injectio n ceFAZolin (ANCEF) injection 12/17/2020 05:05:00 PM EDT active As needed, Starting on Sun12/17/20 at 1705, Intra-Procedure [facility] Medication administered onsite Furosemide 40 MG Oral Tablet furosemide (LASIX) tablet 40 mg furosemide (LASIX) tablet 40 mg 12/17/2020 05:00:00 PM EDT 40 mg Oral activ e 40 mg, Oral, LOOPBID, First dose on Sun12/17/20 at 1700 [facility] Medication administered onsite clopidogrel 75 MG Oral Tablet clopidogrel (PLAVIX) 75 MG tablet clopidogrel (PLAVIX) 75 MG tablet 12/17/2020 12:00:00 AM EDT 75 mg Oral active Take 1 tablet (75 mg total) by mouth daily [facility] Furosemide 40 MG Oral Tablet furosemide (LASIX) 40 MG tablet furosemide (LASIX) 40 MG tablet 12/17/2020 12:00:00 AM EDT 40 mg Oral activ e Take 1 tablet (40 mg total) by mouth Twice Daily for Loop Diuretics [facility] iopamidol (ISOVUE-370) 76 % [id number] 12/15/2020 05:24:15 PM EDT active As needed, Starting on Sun12/15/20 at 1724, Intra-Proce [facility] Medication administered onsite 1 ML heparin sodium, porcine 1000 UNT/ML Injection hep quentin (porcine) injection heparin (porcine) injection 12/15/2020 05:19:28 PM EDT active As needed, Starting on Sun12/15/20 at 1719, Intra-Procedure [facility] Medication administered onsite 4 ML Verapamil hydrochloride 2.5 MG/ML Injection verap [place] (ISOPTIN) injection verapamil (ISOPTIN) injection 12/15/2020 05:19:13 PM EDT active As needed, Starting on Sun12/15/20 at 1719, Intra-Procedure [facility] Medication administered onsite lidocaine 1 % injection 3115-1294-66 12/15/2020 05:17:03 PM EDT active As needed, Starting on Sun 1 at 1717, Intra-Procedure [facility] Medication administered onsite 2 ML Midazolam 1 MG/ML Injection midazolam (VERSED) in jection midazolam (VERSED) injection 12/15/2020 05:16:45 PM EDT active As needed, Starting on Sun12/15/20 at 1716, Intra-Procedure [facility] Medication administered onsite fentaNYL Citrate (PF) (SUBLIMAZE) injection 8242-4162-10 12/15/2020 05:16:30 PM EDT active As neede d, Starting on Sun12/15/20 at 1716, Intra-Procedure [facility] Medication administered onsite normal saline flush 0.9 % injection 3 mL [id number] 12/15/2020 03:00:00 PM EDT 3 mL Intravenous aborted 3 mL , Intravenous, PROTOCOL, First dose on Sun12/15/20 at 1500, Pre-op
flush per protocol, D/C Main IV fluid if appropriate
[facility] Medication administered onsite sodium chloride 0.9% (NS) infusion 1728-6708-46 12/15/2020 02:00:00 PM EDT 100 mL/h Intravenous aborted at 100 m L/hr, 100 mL/hr, Intravenous, Continuous, Starting on Sun12/15/20 at 1400, Pre-op
Start two hours prior to scheduled start time
[facility] Medication administered onsite Acetaminophen 325 MG [...] mg from all sources in 24 hours."
[facility] Medication administered onsite Bisoprolol Fumarate 5 MG Oral Tablet bisoprolol (ZEBET A) tablet 2.5 mg bisoprolol (ZEBETA) tablet 2.5 mg 12/15/2020 02:00:00 AM EDT 2.5 mg Oral completed 2.5 mg, Oral, Once, On Sun 1 at 0200, For 1 dose [facility] Medication administered onsite clopidogrel 75 MG Oral Tablet clopidogrel (PLAVIX) tab let 75 mg clopidogrel (PLAVIX) tablet 75 mg 12/14/2020 09:00:00 AM EDT 75 mg Oral active 75 mg, Oral, Daily, First dose on Sun12/14/20 at 0900 [facility] Medication administered onsite Aspirin 81 MG Chewable Tablet aspirin chewable tablet 81 mg aspirin chewable tablet 81 mg 12/14/2020 09:00:00 AM EDT 81 mg Oral activ e 81 mg, Oral, Daily, First dose on Sun12/14/20 at 0900 [facility] Medication administered onsite acetylcysteine (ACETADOTE) 9,460 mg in dextrose 5 % 1,000 mL infusion 12/14/2020 02:00:00 AM EDT 100 mg/kg Intravenous complet ed 9,460 mg (100 mg/kg 94.6 kg), Intravenous, Administer over 16 Hours, Once, On Sun12/14/20 at 0200, For 1 dose [facility] Medication administered onsite acetylcysteine (ACETADOTE) 4,740 mg in dextrose 5 % 500 mL i nfusion 12/13/2020 10:00:00 PM EDT 50 mg/kg Intravenous completed 4,740 mg (rounded from 4,730 mg = 50 mg/kg 94.6 kg), Intravenous, Administer over 4 Hours, Once, On Sun12/13/20 at 2200, For 1 dose [facility] Medication administered onsite montelukast 10 MG Oral Tablet montelukast (SINGULAIR) tablet 10 mg montelukast (SINGULAIR) tablet 10 mg 12/13/2020 09:00:00 PM EDT 10 mg Oral active 10 mg, Oral, Nightly, First dose on Sun12/13/20 at 2100 [facility] Medication administered onsite acetylcysteine (ACETADOTE) 14,200 mg in dextrose 5 % 200 mL infusion 12/13/2020 09:00:00 PM EDT 150 mg/kg Intravenous complet ed 14,200 mg (rounded from 14,190 mg = 150 mg/kg 94.6 kg), Intravenous, Administer over 1 Hours, Once, On Sun12/13/20 at 2100, For 1 dose [facility] Medication administered onsite Insulin Lispro 100 [...] cover POC glucose at 08:00, 12:00, 17:00.
[facility] Medication administered onsite normal saline flush 0.9 % injection 3 mL [id number] 12/13/2020 03:00:00 PM EDT 3 mL Intravenous aborted 3 mL , Intravenous, PROTOCOL, First dose on Sun12/13/20 at 1500
flush per protocol, D/C Main IV fluid if appropriate
[facility] Medication administered onsite normal saline flush 0.9 % injection 3 mL [id number] 12/13/2020 02:00:00 PM EDT 3 mL Intravenous active 3 mL , Intravenous, Every 8 hours (scheduled), First dose on Sun12/13/20 at 1400
flush per protocol, D/C Main IV fluid if appropriate
[facility] Medication administered onsite Bisoprolol Fumarate 5 MG Oral Tablet bisoprolol (ZEBET A) tablet 5 mg bisoprolol (ZEBETA) tablet 5 mg 12/13/2020 02:00:00 PM EDT 5 mg Oral active 5 mg, Oral, Daily, First dose on Sun12/13/20 at 1400
Hold for manual SBP < 110, HR < 65
[facility] Medication administered onsite perflutren lipid microsphere (DEFINITY) 8.476 mg in 10 mL NS IV drug or medication 12/13/2020 01:24:55 PM EDT mL Intravenous co mpleted 2-10 mL, Intravenous, Once as needed, to be used when clinically necessary, Starting on Sun12/13/20 at 1324, For 1 dose
To be given with automobile glass technician at bedside for exam 1. Activate in VIALMIX agitator for 45 seconds 2. Withdraw 1.3 ml of activated perflutren suspension and dilute in 8.7 ml of 0.9% NS (Total volume = 10 ml) 3. Inject 2 ml slowly over 30 seconds. Repeat in 2 ml aliquots as needed. DO NOT EXCEED 10 ML TOTAL DOSE!
[facility] Medication administered onsite Albuterol 0.83 MG/ML Inhalant Solution a lbuterol (PROVENTIL) nebulizer solution 2.5 mg albuterol (PROVENTIL) nebulizer solution 2.5 mg 2020 01:19:02 PM EDT 2.5 mg active 2.5 mg, Nebulization, RT 4 times daily as needed, wheezing, Starting on Sun12/13/20 at 1319 [facility] Medication administered onsite Nitroglycerin 0.4 MG Sublingual Tablet n itroglycerin (NITROSTAT) SL tablet 0.4 mg nitroglycerin (NITROSTAT) SL tablet 0.4 mg 12/13/2020 01:16:55 P M EDT 0.4 mg Sublingual active 0.4 mg, S ublingual, Every 5 min PRN, chest pain, Starting on Sun12/13/20 at 1316
May administer up to 3 doses per episode.
[facility] Medication administered onsite 500 ML heparin [...] 1 unit/kg/hr IV58.1 - 87 Therapeutic, No Kabnjo19.1 - 97 Decrease infusion 1 unit/kg/hr IV [...] single port tubing (SmartSite Infusion Set ref [id number]). Medication and tubing is to be discarded if infusion off for 4 hours.
[facility] Medication administered onsite 1 ML heparin [...] 30 units/kg IV (Maximum bolus: 5,000 units)
[facility] Medication administered onsite BLOOD SUGAR DIAGNOSTIC [...] AM EDT act helio Lancets - eCW1 ([facility]) Blood Glucose Monitor System w/Device Blood Glucose Monitor System w/Device 07/30/2020 12:00:00 AM EDT active Blood Glucose Monitor System w/Device eCW1 ([facility]) Blood Glucose Test - Blood Glucose Test - 07/30/2020 12:00:00 AM EDT active Blood Glucose Test - eCW1 ([facility]) Blood Glucose Monitor System w/Device Blood Glucose Monitor System w/Device 07/30/2020 12:00:00 AM EDT active Blood Glucose Monitor System w/Device eCW1 ([facility]) Blood Glucose Monitor System w/Device Blood Glucose Monitor System w/Device 07/30/2020 12:00:00 AM EDT active Blood Glucose Monitor System w/Device eCW1 ([facility]) Blood Glucose Test - Blood Glucose Test - 07/30/2020 12:00:00 AM EDT active Blood Glucose Test - eCW1 ([facility]) Lancets - Lancets - 07/30/2020 12:00:00 AM EDT act helio Lancets - eCW1 ([facility]) Blood Glucose Monitor System w/Device Blood Glucose Monitor System w/Device 07/30/2020 12:00:00 AM EDT active Blood Glucose Monitor System w/Device eCW1 ([facility]) FreeStyle Lite Test - FreeStyle Lite Test - 07/30/2020 12:00:00 AM EDT active FreeStyle Lite Test - eCW1 ( [facility]) Blood Glucose Test - Blood Glucose Test - 07/30/2020 12:00:00 AM EDT active Blood Glucose Test - eCW1 ([facility]) Lancets - Lancets - 07/30/2020 12:00:00 AM EDT act helio Lancets - eCW1 ([facility]) Blood Glucose Test - Blood Glucose Test - 07/30/2020 12:00:00 AM EDT active Blood Glucose Test - eCW1 ([facility]) Lancets - Lancets - 07/30/2020 12:00:00 AM EDT act helio Lancets - eCW1 ([facility]) Blood Glucose Test - Blood Glucose Test - 07/30/2020 12:00:00 AM EDT active Blood Glucose Test - eCW1 ([facility]) Lancets - Lancets - 07/30/2020 12:00:00 AM EDT act helio Lancets - eCW1 ([facility]) Blood Glucose Test - Blood Glucose Test - 07/30/2020 12:00:00 AM EDT active Blood Glucose Test - eCW1 ([facility]) Blood Glucose Monitor System w/Device Blood Glucose Monitor System w/Device 07/30/2020 12:00:00 AM EDT active Blood Glucose Monitor System w/Device eCW1 ([facility]) FreeStyle Lite Test - FreeStyle Lite Test - 07/30/2020 12:00:00 AM EDT active FreeStyle Lite Test - eCW1 ( [facility]) FreeStyle Lite Test - FreeStyle Lite Test - 07/30/2020 12:00:00 AM EDT active FreeStyle Lite Test - eCW1 ( [facility]) Blood Glucose Monitor System w/Device Blood Glucose Monitor System w/Device 07/30/2020 12:00:00 AM EDT active Blood Glucose Monitor System w/Device eCW1 ([facility]) Lancets - Lancets - 07/30/2020 12:00:00 AM EDT act helio Lancets - eCW1 ([facility]) FreeStyle Lite Test - FreeStyle Lite Test - 07/30/2020 12:00:00 AM EDT active FreeStyle Lite Test - eCW1 ( [facility]) FreeStyle Lite Test - FreeStyle Lite Test - 07/30/2020 12:00:00 AM EDT active FreeStyle Lite Test - eCW1 ( [facility]) Lancets - Lancets - 07/30/2020 12:00:00 AM EDT act helio Lancets - eCW1 ([facility]) FreeStyle Lite Test - FreeStyle Lite Test - 07/30/2020 12:00:00 AM EDT active FreeStyle Lite Test - eCW1 ( [facility]) Lancets - Lancets - 07/30/2020 12:00:00 AM EDT act helio Lancets - eCW1 ([facility]) FreeStyle Lite Test - FreeStyle Lite Test - 07/30/2020 12:00:00 AM EDT active FreeStyle Lite Test - eCW1 ( [facility]) FreeStyle Lite Test - FreeStyle Lite Test - 07/30/2020 12:00:00 AM EDT active FreeStyle Lite Test - eCW1 ( [facility]) Blood Glucose Test - Blood Glucose Test - 07/30/2020 12:00:00 AM EDT active Blood Glucose Test - eCW1 ([facility]) Blood Glucose Monitor System w/Device Blood Glucose Monitor System w/Device 07/30/2020 12:00:00 AM EDT active Blood Glucose Monitor System w/Device eCW1 ([facility]) Blood Glucose Monitor System w/Device Blood Glucose Monitor System w/Device 07/30/2020 12:00:00 AM EDT active Blood Glucose Monitor System w/Device eCW1 ([facility]) Blood Glucose Test - Blood Glucose Test - 07/30/2020 12:00:00 AM EDT active Blood Glucose Test - eCW1 ([facility]) 24 HR Metformin hydrochloride 500 MG Extended [...] EDT ORAL completed MEDENT ([facility]) Bisoprolol Fumarate 5 MG Oral Tablet Bisoprolol Fumarate 12:00:00 AM EDT ORAL active [facility] ([facility]) 24 HR Metformin hydrochloride 500 MG Extended [...] MetFO RMIN HCl ER 500 MG eCW1 ([facility]) 24 HR Metformin hydrochloride 500 MG Ext ended Release Oral Tablet MetFORMIN HCl ER 500 MG MetFORMIN HCl ER 500 MG 07/28/2020 12:00:00 AM EDT 2.0 {tablet_with_evening_meal} active MetFO RMIN HCl ER 500 MG eCW1 ([facility]) 24 HR Metformin hydrochloride 500 MG Ext ended Release Oral Tablet MetFORMIN HCl ER 500 MG MetFORMIN HCl ER 500 MG 07/28/2020 12:00:00 AM EDT 2.0 {tablet_with_evening_meal} active MetFO RMIN HCl ER 500 MG eCW1 ([facility]) 24 HR Metformin hydrochloride 500 MG Ext ended Release Oral Tablet MetFORMIN HCl ER 500 MG MetFORMIN HCl ER 500 MG 07/28/2020 12:00:00 AM EDT 2.0 {tablet_with_evening_meal} active MetFO RMIN HCl ER 500 MG eCW1 ([facility]) 24 HR Metformin hydrochloride 500 MG Ext ended Release Oral Tablet metFORMIN HCl ER 500 MG metFORMIN HCl ER 500 MG 07/28/2020 12:00:00 AM EDT 2.0 {tablet_with_evening_meal} active metFO RMIN HCl ER 500 MG eCW1 ([facility]) 24 HR Metformin hydrochloride 500 MG Ext ended Release Oral Tablet MetFORMIN HCl ER 500 MG MetFORMIN HCl ER 500 MG 07/28/2020 12:00:00 AM EDT 2.0 {tablet_with_evening_meal} active MetFO RMIN HCl ER 500 MG eCW1 ([facility]) 24 HR Metformin hydrochloride 500 MG Ext ended Release Oral Tablet MetFORMIN HCl ER 500 MG MetFORMIN HCl ER 500 MG 07/28/2020 12:00:00 AM EDT 2.0 {tablet_with_evening_meal} active MetFO RMIN HCl ER 500 MG eCW1 ([facility]) montelukast 10 MG Oral Tablet MONTELUKAST SODIUM [...] ORAL active MEDENT ([facility]) Dorothy eD [place] 04/26/2020 12:00:00 AM EST ORAL act helio MEDPABLO ([facility]) Metformin hydrochloride 850 MG Oral Tablet METFORMIN [...] BY MOUTH EVERY DAY SOLD: 02/28/2020 [facility] 80 mg 02/25/2020 12:00:00 [...] { tablet} active Steglatro 15 MG eCW1 ([facility]) Steglatro 15 MG Steglatro 15 MG 02/20/2020 12:00:00 AM EST 1.0 { tablet} active Steglatro 15 MG eCW1 ([facility]) montelukast 10 MG Oral Tablet MONTELUKAST SODIUM [...] 1.0 {tablet} active Singulair 10 MG eCW1 ([facility]) montelukast 10 MG Oral Tablet [Singulair] Singulair 10 MG Si ngulair 10 MG 02/12/2020 12:00:00 AM EST 1.0 {tablet} active Singulair 10 MG eCW1 ([facility]) 15 mg 01/29/2020 12:00:00 AM EDT tablet [...] { tablet} active Steglatro 15 MG eCW1 ([facility]) Steglatro 15 MG Steglatro 15 MG 01/28/2020 12:00:00 AM EDT 1.0 { tablet} active Steglatro 15 MG eCW1 ([facility]) Steglatro 15 MG Steglatro 15 MG 01/28/2020 12:00:00 AM EDT 1.0 { tablet} active Steglatro 15 MG eCW1 ([facility]) Steglatro 15 MG Steglatro 15 MG 01/28/2020 12:00:00 AM EDT 1.0 { tablet} active Steglatro 15 MG eCW1 ([facility]) montelukast 10 MG Oral Tablet MONTELUKAST SODIUM [...] 1.0 {tablet} active Singulair 10 MG eCW1 ([facility]) OneTouch Ultra II Test Strips UNK 01/15/2020 12:00:00 AM EDT active OneTouch Ultra II Test Strips eCW1 ([facility]) OneTouch Ultra II Test Strips UNK 01/15/2020 12:00:00 AM EDT active OneTouch Ultra II Test Strips eCW1 ([facility]) OneTouch Ultra II Test Strips UNK 01/15/2020 12:00:00 AM EDT active OneTouch Ultra II Test Strips eCW1 ([facility]) OneTouch Ultra II Test Strips UNK 01/15/2020 12:00:00 AM EDT active OneTouch Ultra II Test Strips eCW1 ([facility]) montelukast 10 MG Oral Tablet [Singulair] Singulair 10 MG Si ngulair 10 MG 01/15/2020 12:00:00 AM EDT 1.0 {tablet} active Singulair 10 MG eCW1 ([facility]) 90 mcg/actuation 01/15/2020 12:00:00 AM EDT HFA aerosol inha ler 18 INHALE 2 PUFFS BY MOUTH EVERY 4 HOURS NEEDED INHALE 2 PUFFS BY MOUTH EVERY 4 HOURS NEEDED SOLD: 09/07/2020 [facility] empagliflozin 10 MG Oral Tablet [Jardiance] Jardiance 10 MG Jardiance 10 MG 01/15/2020 12:00:00 AM EDT 1.0 {tablet} active Jardiance 10 MG eCW1 ([facility]) OneTouch Ultra II Test Strips UNK 01/15/2020 12:00:00 AM EDT active OneTouch Ultra II Test Strips eCW1 ([facility]) empagliflozin 10 MG Oral Tablet [Jardiance] Jardiance 10 MG Jardiance 10 MG 01/15/2020 12:00:00 AM EDT 1.0 {tablet} active Jardiance 10 MG eCW1 ([facility]) OneTouch Ultra II Test Strips UNK 01/15/2020 12:00:00 AM EDT active OneTouch Ultra II Test Strips eCW1 ([facility]) BLOOD SUGAR DIAGNOSTIC 01/15/2020 12:00:00 AM EDT [...] by mouth 2 (two) times a day [facility] Atenolol 50 MG Oral Tablet atenolol (TENORMIN) 50 MG t ablet atenolol (TENORMIN) 50 MG tablet 50 mg Oral aborted Ron e 50 mg by mouth 2 (two) times a day [facility] Metformin hydrochloride 850 MG Oral Tablet metFORMIN ( GLUCOPHAGE) 850 MG tablet metFORMIN (GLUCOPHAGE) 850 MG tablet 850 mg Oral a borted Take 850 mg by mouth daily with breakfast [facility] PARoxetine (PAXIL) 20 MG tablet [id number] 20 mg Oral aborted Take 20 mg by mouth every morning [facility] Amlodipine 10 MG Oral Tablet amLODIPine (NORVASC) 10 M G tablet amLODIPine (NORVASC) 10 MG tablet 10 mg Oral aborted T charla 10 mg by mouth daily [facility] clopidogrel 75 MG Oral Tablet clopidogrel (PLAVIX) 75 MG tablet clopidogrel (PLAVIX) 75 MG tablet 75 mg Oral aborted Ta ke 75 mg by mouth daily [facility] Ibuprofen 200 MG Oral Tablet ibuprofen (ADVIL,MOTRIN) 200 MG tablet ibuprofen (ADVIL,MOTRIN) 200 MG tablet 200 mg Oral aborted Take 200 mg by mouth every 6 (six) hours as needed for pain [facility] Chlorthalidone 25 MG Oral Tablet chlorthalidone (HYGRO TEN) 25 MG tablet chlorthalidone (HYGROTEN) 25 MG tablet 12.5 mg Oral aborted Take 12.5 mg by mouth daily [facility] Insurance Providers Payer name Policy type / Coverage type Policy ID Covered constitution party ID Covered constitution party's relationship to alvarez Policy Alvarez Plan [facility] [id number] Self 1 [id number] [facility] [id number] Self 1 [id number] [facility] [id number] Self [facility] MEDICAID [id number] [facility] MEDICAID [id number] Ankita [id number] ANSI-Medicaid [id number] ANSI-Medicaid [id number] [facility] Health Maintenance Organization (O) [id number] Self [id number] [facility] Health Maintenance Organization (HMO) [id number] Self [facility] O [id number] S [id number] SELF PAY UNAVAILABLE UNAVAILA BLE UN[employer] AMERICHOICE XIX O [id number] 18 [id number] BLUE CROSS BLUE [facility] [id number] 18 [id number] UNHC COMMUNITY PLAN [facility] [id number] SP [id number] MEDICAID - CLINIC [id number] FORMERLY [facility] [id number] SP [id number] [facility] O [id number] S [id number] ANSI-Medicaid [id number] [facility] Plan-[facility] [id number] Self [id number] Problems, Conditions, and Diagnoses Code Display Name Description Problem Type Effective Dates Data Source(s) I25.5 Ischemic cardiomyopathy Ischemic cardiomyopathy Diagno [facility] 12/13/2020 12:38:00 PM EDT [facility] I47.2 Ventricular tachycardia Ventricular tachycardia Diagno [facility] 12/13/2020 12:38:00 PM EDT [facility] I24.9 Acute ischemic heart disease, unspecifie d Acute ischemic heart disease, unspecifie Diagnosis 12/13/2020 12:38:00 PM EDT [facility] N17.9 Acute kidney failure, unspecified Acute kidney f ailure, unspecified Diagnosis 12/13/2020 12:38:00 PM EDT [facility] R77.8 Other specified abnormalities of plasma proteins Other specified abnormalities of plasma Diagnosis 12/13/2020 12:38:00 PM EDT [facility] I21.4 Non-ST elevation (NSTEMI) myocardial inf arction Non-ST elevation (NSTEMI) myocardial inf Diagnosis 12/13/2020 12:38:00 PM EDT [facility] I47.2 Paroxysmal ventricular tachycardia Paroxysmal ve ntricular tachycardia Problem 12/23/2020 12:00:00 AM EDT MEDPABLO ([facility]) Z95.810 Automatic implantable cardiac defibrilla tor in situ Automatic implantable cardiac defibrillator in situ Problem 12/23/2020 12:00:0 0 AM EDT HIMA ([facility]) I25.5 Ischemic cardiomyopathy Ischemic cardiomyopathy [id number] 12/15/2020 12:00:00 AM EDT [facility] I24.9 Acute coronary syndrome Acute coronary syndrome [id number] 12/15/2020 12:00:00 AM EDT [facility] I45.10 RBBB RBBB [id number] 12/13/2020 12:00:00 AM ED T [facility] R79.89 Elevated LFTs Elevated LFTs [id number] 12/13/2020 12:00:00 AM EDT [facility] N17.9 JOHN (acute kidney injury) JOHN (acute kidney injury) [id number] 12/13/2020 12:00:00 AM EDT [facility] I25.110 Coronary artery disease invo lving [place] coronary artery of [place] heart with unstable angina pectoris Coronary artery disease involving [place] coronary artery of [place] heart with unstable angina pectoris [id number] 12/13/2020 12:00:00 AM EDT [facility] R77.8 Elevated troponin Elevated troponin [id number] 12/13/2020 12:00:00 AM EDT [facility] Z72.0 Tobacco use Tobacco use [id number] 12/13/2020 12:00:00 AM EDT [facility] I10 HTN (hypertension) HTN (hypertension) [id number] 12:00:00 AM EDT [facility] E11.9 DM2 (diabetes mellitus, type 2) DM2 (diabetes mellitus , type 2) [id number] 12/13/2020 12:00:00 AM EDT [facility] J44.9 COPD (chronic obstructive pulmonary dise ase) COPD (chronic obstructive pulmonary disease) [id number] 12/13/2020 12:00:00 AM EDT [facility] I47.2 Sustained VT (ventricular tachycardia) S ustained VT (ventricular tachycardia) [id number] 12/13/2020 12:00:00 AM EDT [facility] E78.00 [id number] Pure hypercholesterolemia Problem 07/23/2020 12:00:00 AM EDT eCW1 ([facility]) I25.10 [id number] Coronary artery dise ase involving [place] coronary artery of [place] heart without angina pectoris Problem 01/15/2020 12:00:00 AM EDT eCW1 ([facility]) J30.89 [id number] Non-seasonal allergic rhinitis, unspecifi ed trigger Problem 01/15/2020 12:00:00 AM EDT eCW1 ([facility]) Surgeries/Procedures Procedure Description Date Indications Data Source(s) Imm: Flublok Quadrivalent 18 years & older 0.5mL IM Influenz a 01/19/2021 12:00:00 AM EDT eCW1 ([facility]) INTERROGATION 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 01/07/20 12:00:00 AM EDT MEDENT ([facility]) ECG ROUTINE ECG W/LEAST 12 LDS W/I&R 12/23/2020 12:00: 00 AM EDT MEDENT ([facility]) OFFICE OUTPATIENT VISIT 25 MINUTES 12/23/2020 12:00:00 AM EDT MEDENT ([facility]) XR CHEST PORTABLE <td>XR CHEST PORTABLE</td><t d>STAT</td><td>12/17/2020 6:56 PM EDT</td><td></td><td> </td> 12/17/2020 06:56:35 PM EDT [facility] GLUC BLD GLUC MNTR DEV CLEARED FDA SPEC HOME USE <td>P OCT GLUCOSE</td><td>Routine</td><td>12/17/2020 6:51 PM EDT</td><td></td><td> </td> 12/17/2020 06:51:00 PM EDT [facility] EP STUDY <td>EP STUDY</td><td>Routine </td><td>12/17/2020 5:32 PM EDT</td><td> Sustained VT (ventricular tachycardia)</td><td> </td> 12/17/2020 05:32:55 PM EDT Sustained VT (ventricular tachycardia) [facility] Sustained VT (ventricular tachycardia) GLUC BLD GLUC MNTR DEV CLEARED FDA SPEC HOME USE <td>P OCT GLUCOSE</td><td>Routine</td><td>12/17/2020 11:47 AM EDT</td><td></td><td> </td> 12/17/2020 11:47:00 AM EDT [facility] GLUC BLD GLUC MNTR DEV CLEARED FDA SPEC HOME USE <td>P OCT GLUCOSE</td><td>Routine</td><td>12/17/2020 9:12 AM EDT</td><td></td><td> </td> 12/17/2020 09:12:00 AM EDT [facility] THROMBOPLASTIN TIME PARTIAL PLASMA/WHOLE BLOOD <td>APTT</td><td>Routine</td><td>12/17/2020 8:00 AM EDT</td><td></td><td> </td> 12/17/2020 08:00:00 AM EDT [facility] Hemodialysis (procedure) <td>HEMODIALYSIS INPATIENT TX</td><td>Routine</td><td>12/17/2020 12:07 AM EDT</td><td></td><td></td> 12/17/2020 12:07:30 AM EDT [facility] THROMBOPLASTIN TIME PARTIAL PLASMA/WHOLE BLOOD <td>APTT</td><td>Routine</td><td>12/17/2020 12:07 AM EDT</td><td></td><td> </td> 12/17/2020 12:07:00 AM EDT [facility] GLUC BLD GLUC MNTR DEV CLEARED FDA SPEC HOME USE <td>P OCT GLUCOSE</td><td>Routine</td><td>12/16/2020 5:55 PM EDT</td><td></td><td> </td> 12/16/2020 05:55:00 PM EDT [facility] THROMBOPLASTIN TIME PARTIAL PLASMA/WHOLE BLOOD <td>APTT</td><td>Routine</td><td>12/16/2020 4:38 PM EDT</td><td></td><td> </td> 12/16/2020 04:38:00 PM EDT [facility] GLUC BLD GLUC MNTR DEV CLEARED FDA SPEC HOME USE <td>P OCT GLUCOSE</td><td>Routine</td><td>12/16/2020 12:02 PM EDT</td><td></td><td> </td> 12/16/2020 12:02:00 PM EDT [facility] KU2 PANEL <td>KU2 PANEL</td><td>STAT</ td><td>12/16/2020 7:44 AM EDT</td><td></td><td> </td> 12/16/2020 07:44:00 AM EDT [facility] BLOOD COUNT COMPLETE AUTOMATED <td>CBC</td><td>STAT</t d><td>12/16/2020 7:44 AM EDT</td><td></td><td> </td> 12/16/2020 07:44:00 AM EDT [facility] PHOSPHORUS INORGANIC <td>PHOSPHORUS</td><td>STAT< /td><td>12/16/2020 7:44 AM EDT</td><td></td><td> </td> 12/16/2020 07:44:00 AM EDT [facility] THROMBOPLASTIN TIME PARTIAL PLASMA/WHOLE BLOOD <td>APTT</td><td>STAT</td><td>12/16/2020 6:28 AM EDT</td><td></td><td> </td> 12/16/2020 06:28:00 AM EDT [facility] THROMBOPLASTIN TIME PARTIAL PLASMA/WHOLE BLOOD <td>APTT</td><td>STAT</td><td>12/15/2020 7:43 PM EDT</td><td></td><td> </td> 12/15/2020 07:43:00 PM EDT [facility] GLUC BLD GLUC MNTR DEV CLEARED FDA SPEC HOME USE <td>P OCT GLUCOSE</td><td>Routine</td><td>12/15/2020 6:25 PM EDT</td><td></td><td> </td> 12/15/2020 06:25:00 PM EDT [facility] CARDIAC CATHETERIZATION <td>CARDIAC CATHETERIZATION</td><td>Routine</td><td>12/15/2020 5:25 PM EDT</td><td> Acute coronary syndrome Sustained VT (ventricular tachycardia) Ischemic cardiomyopathy</td><td> </td> 12/15/2020 05:25:36 PM EDT Ischemic cardiomyopathySustained VT (lainey tricular tachycardia)Acute coronary syndrome [facility] Ischemic cardiomyopathy Sustained VT (ventricular tachycardia) Acute coronary syndrome GLUC BLD GLUC MNTR DEV CLEARED FDA SPEC HOME USE <td>P OCT GLUCOSE</td><td>Routine</td><td>12/15/2020 1:35 PM EDT</td><td></td><td> </td> 12/15/2020 01:35:00 PM EDT [facility] GLUC BLD GLUC MNTR DEV CLEARED FDA SPEC HOME USE <td>P OCT GLUCOSE</td><td>Routine</td><td>12/15/2020 8:47 AM EDT</td><td></td><td> </td> 12/15/2020 08:47:00 AM EDT [facility] KU2 PANEL <td>KU2 PANEL</td><td>STAT</ td><td>12/15/2020 8:15 AM EDT</td><td></td><td> </td> 12/15/2020 08:15:00 AM EDT [facility] BLOOD COUNT COMPLETE AUTOMATED <td>CBC</td><td>STAT</t d><td>12/15/2020 8:15 AM EDT</td><td></td><td> </td> 12/15/2020 08:15:00 AM EDT [facility] PHOSPHORUS INORGANIC <td>PHOSPHORUS</td><td>STAT< /td><td>12/15/2020 8:15 AM EDT</td><td></td><td> </td> 12/15/2020 08:15:00 AM EDT [facility] Hemodialysis (procedure) <td>HEMODIALYSIS INPATIENT TX</td><td>Routine</td><td>12/15/2020 7:08 AM EDT</td><td></td><td></td> 12/15/2020 07:08:46 AM EDT [facility] Hemodialysis (procedure) <td>HEMODIALYSIS INPATIENT TX</td><td>Routine</td><td>12/15/2020 7:08 AM EDT</td><td></td><td></td> 12/15/2020 07:08:46 AM EDT [facility] Hemodialysis (procedure) <td>HEMODIALYSIS INPATIENT TX</td><td>Routine</td><td>12/15/2020 7:08 AM EDT</td><td></td><td></td> 12/15/2020 07:08:46 AM EDT [facility] BILIRUBIN UNCONJ (INDIRECT) <td>BILIRUBIN UNCONJ (INDIRECT)</td><td>STAT</td><td>12/15/2020 5:01 AM EDT</td><td></td><td> </td> 12/15/2020 05:01:00 AM EDT [facility] THROMBOPLASTIN TIME PARTIAL PLASMA/WHOLE BLOOD <td>APTT</td><td>STAT</td><td>12/15/2020 5:01 AM EDT</td><td></td><td> </td> 12/15/2020 05:01:00 AM EDT [facility] BLOOD COUNT COMPLETE AUTOMATED <td>CBC</td><td>STAT</t d><td>12/15/2020 5:01 AM EDT</td><td></td><td> </td> 12/15/2020 05:01:00 AM EDT [facility] MAGNESIUM <td>MAGNESIUM</td><td>STAT</ td><td>12/15/2020 5:01 AM EDT</td><td></td><td> </td> 12/15/2020 05:01:00 AM EDT [facility] BILIRUBIN DIRECT <td>BILIRUBIN, DIRECT</td><t d>STAT</td><td>12/15/2020 5:01 AM EDT</td><td></td><td> </td> 12/15/2020 05:01:00 AM EDT [facility] COMPREHENSIVE METABOLIC PANEL <td>COMPREHENSIVE METABO LIC PANEL</td><td>STAT</td><td>12/15/2020 5:01 AM EDT</td><td></td><td> </td> 12/15/2020 05:01:00 AM EDT [facility] THROMBOPLASTIN TIME PARTIAL PLASMA/WHOLE BLOOD <td>APTT</td><td>STAT</td><td>12/14/2020 6:10 PM EDT</td><td></td><td> </td> 12/14/2020 06:10:00 PM EDT [facility] GLUC BLD GLUC MNTR DEV CLEARED FDA SPEC HOME USE <td>P OCT GLUCOSE</td><td>Routine</td><td>12/14/2020 4:52 PM EDT</td><td></td><td> </td> 12/14/2020 04:52:00 PM EDT [facility] GLUC BLD GLUC MNTR DEV CLEARED FDA SPEC HOME USE <td>P OCT GLUCOSE</td><td>Routine</td><td>12/14/2020 12:30 PM EDT</td><td></td><td> </td> 12/14/2020 12:30:00 PM EDT [facility] GLUC BLD GLUC MNTR DEV CLEARED FDA SPEC HOME USE <td>P OCT GLUCOSE</td><td>Routine</td><td>12/14/2020 9:16 AM EDT</td><td></td><td> </td> 12/14/2020 09:16:00 AM EDT [facility] Transthoracic echocardiography with cont rast, or without contrast followed by with contrast, real-time with image documentation (2d), includes m-mode recording, when performed, complete, with spectral doppler echocardiography, and with color flow doppler echocardiography <td>ECHOCARDIOGRAM TRANSTHORACIC COMPLETE W/ CONTRAST</td><td>Routine</td><td>12/14/2020 8:03 AM EDT</td><td></td><td> </td> 12/14/2020 08:03:02 AM EDT [facility] TROPONIN QUANTITATIVE <td>TROPONIN I</td><td>Timed </td><td>12/14/2020 5:47 AM EDT</td><td></td><td> </td> 12/14/2020 05:47:00 AM EDT [facility] THROMBOPLASTIN TIME PARTIAL PLASMA/WHOLE BLOOD <td>APTT</td><td>Routine</td><td>12/14/2020 5:47 AM EDT</td><td></td><td> </td> 12/14/2020 05:47:00 AM EDT [facility] PROTHROMBIN TIME <td>PROTIME-INR</td><td>Add- On</td><td>12/14/2020 5:47 AM EDT</td><td></td><td> </td> 12/14/2020 05:47:00 AM EDT [facility] BLOOD COUNT COMPLETE AUTOMATED <td>CBC</td><td>Routine </td><td>12/14/2020 5:47 AM EDT</td><td></td><td> </td> 12/14/2020 05:47:00 AM EDT [facility] COMPREHENSIVE METABOLIC PANEL <td>COMPREHENSIVE METABO LIC PANEL</td><td>Timed</td><td>12/14/2020 5:47 AM EDT</td><td></td><td> </td> 12/14/2020 05:47:00 AM EDT [facility] TROPONIN QUANTITATIVE <td>TROPONIN I</td><td>STAT< /td><td>12/14/2020 2:05 AM EDT</td><td></td><td> </td> 12/14/2020 02:05:00 AM EDT [facility] MAGNESIUM <td>MAGNESIUM</td><td>STAT</ td><td>12/14/2020 2:05 AM EDT</td><td></td><td> </td> 12/14/2020 02:05:00 AM EDT [facility] COMPREHENSIVE METABOLIC PANEL <td>COMPREHENSIVE METABO LIC PANEL</td><td>STAT</td><td>12/14/2020 2:05 AM EDT</td><td></td><td> </td> 12/14/2020 02:05:00 AM EDT [facility] THROMBOPLASTIN TIME PARTIAL PLASMA/WHOLE BLOOD <td>APTT</td><td>Routine</td><td>12/14/2020 12:12 AM EDT</td><td></td><td> </td> 12/14/2020 12:12:00 AM EDT [facility] ECG ROUTINE ECG W/LEAST 12 LDS TRCG ONLY W/O I&R <td>E CG 12- LEAD</td><td>STAT</td><td>12/13/2020 10:13 PM EDT</td><td></td><td></td> 12/13/2020 10:13:23 PM EDT [facility] URINE CULTURE HOLD SPECIMEN <td>URINE CULTURE HOLD SPECIMEN</td><td>Routine</td><td>12/13/2020 8:08 PM EDT</td><td></td><td> </td> 12/13/2020 08:08:00 PM EDT [facility] URINE MICROSCOPIC <td>URINE MICROSCOPIC</td><t d>Add-On</td><td>12/13/2020 8:08 PM EDT</td><td></td><td> </td> 12/13/2020 08:08:00 PM EDT [facility] PROTEIN TOTAL XCPT REFRACTOMETRY URINE <td>PROTEIN / C REATININE RATIO, URINE</td><td>Routine</td><td>12/13/2020 8:08 PM EDT</td><td></td><td> </td> 12/13/2020 08:08:00 PM EDT [facility] PROTEIN ELECTROP FXJ&STEFFEN OTH FLUS CONCENTRATION <td>P ROTEIN ELECTROPHORESIS, RANDOM URINE</td><td>Routine</td><td>12/13/2020 8:08 PM EDT</td><td></td><td></td> 12/13/2020 08:08:00 PM EDT [facility] URNLS DIP STICK/TABLET RGNT AUTO W/O MICROSCOPY <td>UR INALYSIS W/O MICRO</td><td>Routine</td><td>12/13/2020 8:08 PM EDT</td><td></td><td> </td> 12/13/2020 08:08:00 PM EDT [facility] COMPLEMENT TOTAL HEMOLYTIC <td>COMPLEMENT ACT TOTAL</td><td>Routine</td><td>12/13/2020 7:10 PM EDT</td><td></td><td> </td> 12/13/2020 07:10:00 PM EDT [facility] FLUORESCENT NONNFCT AGT ANTB SCREEN EA ANTIBODY <td>AN CA VASCULITIS PROF</td><td>Routine</td><td>12/13/2020 7:10 PM EDT</td><td></td><td> </td> 12/13/2020 07:10:00 PM EDT [facility] HEPATITIS C ANTIBODY CONFIRMATORY TEST <td>HEPATITIS C ANTIBODY</td><td>Routine</td><td>12/13/2020 7:10 PM EDT</td><td></td><td> </td> 12/13/2020 07:10:00 PM EDT [facility] ANTINUCLEAR ANTIBODIES BÁRBARA TITER <td>BÁRBARA WITH REFLEX</td><td>Routine</td><td>12/13/2020 7:10 PM EDT</td><td></td><td> </td> 12/13/2020 07:10:00 PM EDT [facility] TROPONIN QUANTITATIVE <td>TROPONIN I</td><td>Add-O n</td><td>12/13/2020 7:10 PM EDT</td><td></td><td> </td> 12/13/2020 07:10:00 PM EDT [facility] NEPHELOMETRY EACH ANALYTE YUKO <td>IMMUNOGLOBULIN FREE LT CHAINS BLOOD</td><td>Routine</td><td>12/13/2020 7:10 PM EDT</td><td></td><td> </td> 12/13/2020 07:10:00 PM EDT [facility] IMMUNOASSAY ANALYTE QUANTITATIVE NOS <td>GLOMERULAR BA SEMENT MEMBRANE IGG</td><td>Routine</td><td>12/13/2020 7:10 PM EDT</td><td></td><td> </td> 12/13/2020 07:10:00 PM EDT [facility] CERULOPLASMIN <td>CERULOPLASMIN</td><td>Ad d-On</td><td>12/13/2020 7:10 PM EDT</td><td></td><td> </td> 12/13/2020 07:10:00 PM EDT [facility] RHEUMATOID FACTOR QUANTITATIVE <td>RHEUMATOID FACTOR</td><td>Routine</td><td>12/13/2020 7:10 PM EDT</td><td></td><td> </td> 12/13/2020 07:10:00 PM EDT [facility] COMPLEMENT ANTIGEN EACH COMPONENT <td>C3 COMPLEMENT</td><td>Routine</td><td>12/13/2020 7:10 PM EDT</td><td></td><td> </td> 12/13/2020 07:10:00 PM EDT [facility] COMPLEMENT ANTIGEN EACH COMPONENT <td>C4 COMPLEMENT</td><td>Routine</td><td>12/13/2020 7:10 PM EDT</td><td></td><td> </td> 12/13/2020 07:10:00 PM EDT [facility] PROTEIN ELECTROPHORETIC FRACTJ&QUANTJ SERUM <td>PROTEI N ELECTROPHORESIS, SERUM</td><td>Routine</td><td>12/13/2020 7:10 PM EDT</td><td></td><td></td> 12/13/2020 07:10:00 PM EDT [facility] ACETAMINOPHEN <td>ACETAMINOPHEN LEVEL</td> <td>Add-On</td><td>12/13/2020 7:10 PM EDT</td><td></td><td> </td> 12/13/2020 07:10:00 PM EDT [facility] CENTRAL LINE INSERTION <td>CENTRAL LINE INSERTION</td><td>Routine</td><td>12/13/2020 7:02 PM EDT</td><td> JOHN (acute kidney injury)</td><td> </td> 12/13/2020 07:02:07 PM EDT JOHN (acute kidney injury) [facility] JOHN (acute kidney injury) XR CHEST PORTABLE <td>XR CHEST PORTABLE</td><t d>STAT</td><td>12/13/2020 6:23 PM EDT</td><td></td><td> </td> 12/13/2020 06:23:48 PM EDT [facility] Hemodialysis (procedure) <td>HEMODIALYSIS INPATIENT TX</td><td>Routine</td><td>12/13/2020 5:08 PM EDT</td><td></td><td></td> 12/13/2020 05:08:39 PM EDT [facility] POC VENOUS BLOOD GAS W LYTES <td>POC VENOUS BLOOD GAS W LYTES</td><td>Routine</td><td>12/13/2020 5:04 PM EDT</td><td></td><td> </td> 12/13/2020 05:04:00 PM EDT [facility] GLUC BLD GLUC MNTR DEV CLEARED FDA SPEC HOME USE <td>P OCT GLUCOSE</td><td>Routine</td><td>12/13/2020 5:04 PM EDT</td><td></td><td> </td> 12/13/2020 05:04:00 PM EDT [facility] DUP-SCAN ARTL FILI ABDL/PEL/SCROT&/RPR ORGN LMTD <td>US ABDOMINAL VEINS LIMITED</td><td>STAT</td><td>12/13/2020 4:55 PM EDT</td><td></td><td> </td> 12/13/2020 04:55:55 PM EDT [facility] US RETROPERITONEAL REAL TIME W/IMAGE COMPLETE <td>US R ENAL KIDNEY BILATERAL</td><td>Routine</td><td>12/13/2020 4:01 PM EDT</td><td></td><td> </td> 12/13/2020 04:01:28 PM EDT [facility] ULTRASOUND ABDOMINAL REAL TIME W/IMAGE LIMITED <td>US RIGHT UPPER QUADRANT</td><td>Routine</td><td>12/13/2020 4:01 PM EDT</td><td></td><td> </td> 12/13/2020 04:01:10 PM EDT [facility] NT PRO BNP <td>NT PRO BNP</td><td>Routi ne</td><td>12/13/2020 3:19 PM EDT</td><td></td><td> </td> 12/13/2020 03:19:00 PM EDT [facility] TROPONIN QUANTITATIVE <td>TROPONIN I</td><td>Routi ne</td><td>12/13/2020 3:19 PM EDT</td><td></td><td> </td> 12/13/2020 03:19:00 PM EDT [facility] ACUTE HEPATITIS PANEL <td>HEPATITIS PANEL, ACUTE</td><td>Routine</td><td>12/13/2020 3:19 PM EDT</td><td></td><td> </td> 12/13/2020 03:19:00 PM EDT [facility] HEPATITIS B CORE ANTIBODY HBCAB TOTAL <td>HEPATITIS B CORE ANTIBODY, TOTAL</td><td>Routine</td><td>12/13/2020 3:19 PM EDT</td><td></td><td> </td> 12/13/2020 03:19:00 PM EDT [facility] HEPATITIS B SURF ANTIBODY HBSAB <td>HEPATITIS B SURFAC E ANTIBODY</td><td>Routine</td><td>12/13/2020 3:19 PM EDT</td><td></td><td> </td> 12/13/2020 03:19:00 PM EDT [facility] THROMBOPLASTIN TIME PARTIAL PLASMA/WHOLE BLOOD <td>APTT</td><td>Routine</td><td>12/13/2020 3:19 PM EDT</td><td></td><td> </td> 12/13/2020 03:19:00 PM EDT [facility] PROTHROMBIN TIME <td>PROTIME-INR</td><td>Rout ine</td><td>12/13/2020 3:19 PM EDT</td><td></td><td> </td> 12/13/2020 03:19:00 PM EDT [facility] BLOOD COUNT COMPLETE AUTO&AUTO DIFRNTL WBC COUNT <td>C BC AND DIFFERENTIAL</td><td>Routine</td><td>12/13/2020 3:19 PM EDT</td><td></td><td> </td> 12/13/2020 03:19:00 PM EDT [facility] THYROID STIMULATING HORMONE TSH <td>TSH</td><td>Routin e</td><td>12/13/2020 3:19 PM EDT</td><td></td><td> </td> 12/13/2020 03:19:00 PM EDT [facility] PHOSPHORUS INORGANIC <td>PHOSPHORUS</td><td>Routi ne</td><td>12/13/2020 3:19 PM EDT</td><td></td><td> </td> 12/13/2020 03:19:00 PM EDT [facility] MAGNESIUM <td>MAGNESIUM</td><td>Routin e</td><td>12/13/2020 3:19 PM EDT</td><td></td><td> </td> 12/13/2020 03:19:00 PM EDT [facility] HEMOGLOBIN GLYCOSYLATED A1C <td>HEMOGLOBIN A1C</td><td>Routine</td><td>12/13/2020 3:19 PM EDT</td><td></td><td> </td> 12/13/2020 03:19:00 PM EDT [facility] ALCOHOL ANY SPECIMEN EXCEPT BREATH <td>ETHANOL</td><td>Routine</td><td>12/13/2020 3:19 PM EDT</td><td></td><td> </td> 12/13/2020 03:19:00 PM EDT [facility] LIPID PANEL <td>LIPID PANEL</td><td>Rout ine</td><td>12/13/2020 3:19 PM EDT</td><td></td><td> </td> 12/13/2020 03:19:00 PM EDT [facility] COMPREHENSIVE METABOLIC PANEL <td>COMPREHENSIVE METABO LIC PANEL</td><td>Routine</td><td>12/13/2020 3:19 PM EDT</td><td></td><td> </td> 12/13/2020 03:19:00 PM EDT [facility] URINE MICROSCOPIC <td>URINE MICROSCOPIC</td><t d>Add-On</td><td>12/13/2020 2:15 PM EDT</td><td></td><td> </td> 12/13/2020 02:15:00 PM EDT [facility] PROTEIN TOTAL XCPT REFRACTOMETRY URINE <td>PROTEIN / C REATININE RATIO, URINE</td><td>Routine</td><td>12/13/2020 2:15 PM EDT</td><td></td><td> </td> 12/13/2020 02:15:00 PM EDT [facility] CHLORIDE URINE <td>URINE ELECTROLYTES</td>< td>Routine</td><td>12/13/2020 2:15 PM EDT</td><td></td><td> </td> 12/13/2020 02:15:00 PM EDT [facility] PROTEIN ELECTROP FXJ&STEFFEN OTH FLUS CONCENTRATION <td>P ROTEIN ELECTROPHORESIS, RANDOM URINE</td><td>Routine</td><td>12/13/2020 2:15 PM EDT</td><td></td><td></td> 12/13/2020 02:15:00 PM EDT [facility] CREATININE OTHER SOURCE <td>CREATININE, URINE, RANDOM</td><td>Routine</td><td>12/13/2020 2:15 PM EDT</td><td></td><td> </td> 12/13/2020 02:15:00 PM EDT [facility] URNLS DIP STICK/TABLET RGNT AUTO W/O MICROSCOPY <td>UR INALYSIS W/O MICRO</td><td>Routine</td><td>12/13/2020 2:15 PM EDT</td><td></td><td> </td> 12/13/2020 02:15:00 PM EDT [facility] ECG ROUTINE ECG W/LEAST 12 LDS W/I&R <td>ECG 12- LEAD</td><td>Routine</td><td>12/13/2020 12:36 PM EDT</td><td></td><td></td> 12/13/2020 12:36:40 PM EDT [facility] ECHO TTHRC R-T 2D W/WOM-MODE COMPL SPEC&COLR DOP 08/03 12:00:00 AM EDT [facility] ([facility]) ECG ROUTINE ECG W/LEAST 12 LDS W/I&R 07/29/2020 12:00: 00 AM EDT [facility] ([facility]) OFFICE OUTPATIENT VISIT 25 MINUTES 07/29/2020 12:00:00 AM EDT [facility] ([facility]) ECG ROUTINE ECG W/LEAST 12 LDS W/I&R 04/27/2020 12:00: 00 AM EST [facility] ([facility]) Immunization: Flublok Quadrivalent (18 years & older) 0.5mL IM (Influenza) 01/15/2020 12:00:00 AM EDT eCW1 ([facility]) Results ID Date Data Source [id number] 01/28/2021 10:38:00 AM EDT [facility] ([facility]) Name Value Range Interpretation Code Description Data Morena rce(s) Supporting Document(s) Magnesium [Mass/volume] in Serum or Plasma 2.1 mg/dL 1.8-2.4 [facility] ([facility]) ID Date Data Source [id number] 01/28/2021 10:38:00 AM EDT [facility] ([facility]) Name Value Range Interpretation Code Description Data Morena rce(s) Supporting Document(s) Glucose, Fasting 141 mg/dL 70-100 [facility] ([facility]) Blood Urea Nitrogen 16 mg/dL 7-18 [facility] ([facility]) Creatinine For GFR 1.30 mg/dL 0.70-1.30 [facility] ([facility]) Sodium Level 137 meq/L 136-145 [facility] ([facility]) Glomerular Filtration Rate Laboratory test result [facility] ([facility]) <content>Units are mL/min/1.73 m2</content>
<content></content>
<content>Chronic Kidney Disease Staging per NKF:</content>
<content></content>
<content>Stage I & II GFR >=60 Normal to Mildly Decreased</content>
<content>Stage III GFR 30- 59 Moderately Decreased</content>
<content>Stage IV GFR 15-29 Severely Decreased</content>
<content>Stage V GFR <15 Very Little GFR Left</content>
<content>ESRD GFR <15 on STEEL WELDER</content>
<content></content> Chloride Level 100 meq/L 98-107 [facility] ([facility]) Potassium Serum 4.4 meq/L 3.5-5.1 [facility] ([facility]) Anion Gap 5 meq/L 8-16 [facility] Carbon Dioxide Level 32 meq/L 21-32 [facility] ([facility]) Ast/Sgot 21 U/L 7-37 [facility] Calcium Level 9.9 mg/dL 8.5-10.1 [facility] ([facility]) Alkaline Phosphatase 64 U/L 45-117 [facility] ([facility]) Alt/SGPT 32 U/L 12-78 [facility]) Bilirubin,Total 0.5 mg/dL 0.2-1.0 [facility] ([facility]) Total Protein 7.6 GM/DL 6.4-8.2 [facility] ([facility]) Albumin 3.9 GM/DL 3.2-5.2 [facility]) Albumin/Globulin Ratio 1.1 [facility] ([facility]) ID Date Data Source [id number] 01/28/2021 10:38:00 AM EDT [facility] ([facility]) Name Value Range Interpretation Code Description Data Morena rce(s) Supporting Document(s) Natriuretic peptide.B prohormone N-Terminal [Mass/volu me] in Serum or Plasma 762 pg/mL [facility] ([facility]) ID Date Data Source [id number] 01/21/2021 01:39:10 PM EDT [facility] NT INFORMATIONPatient MRN Name Date of Age Gend*PT [id number] Dilan Kirk 1960 60 years M IPPT Location Admission Date/Time Visit ID Attending [id number] 12/13/20 1238 --- --- EPI ID CSN Admitting Provider [id number] Crystal Neal MD([id number]) [facility] DISCHARGE SUMMARYPatient Name: Dilan Kirk of : 1960 Age 60 yearsPrimary Physician: PCP PROVIDER REQUESTED PCP Phone: NoneAdmission Date: 12/13/2020 Discharge Date: 12/17/2020[facility] will be discharged from [facility] to home.Discharge Diagnoses:Principal Problem: Coronary artery disease involving [place] coronary artery of [place] heart withunstable angina pectorisActive Problems: Sustained VT [...] summary.Items needing special attention:Followup with Nephrology and [facility] Course:Dilan Kirk is a 60 y.o. male with PMHx significant for HTN, DM2, COPD,CAD, [place]. He states he drank 7-8 wine coolers [...] persisting into today, promptinghim to go to [facility] ER for evaluation. There he was found to be in VT with"rate at 170". He was cardioverted x 1 at 200J with conversion to SR with STelevations in lead III and lateral ST depressions. He was loaded with ASA andplavix, heparin gtt was started and he was transferred to [facility] ER for Cardiologyevaluation. Noted to be in JOHN, Nephrology was consulted. Thought to besecondary to ATN. S/p urgent HD in ICU on 12/13 and HD again on 12/16 withimprovement in renal function. Nighatkar was pulled out prior to discharge.For acute hepatitis, Gastroenterology was consulted. Started on NAC protocolwith improvement.For sustained Vtach, Ca rdiology and EP [facility] on 12/15 showing [...] rce(s) Supporting Document(s) ID Date Data Source [id number] 12/27/2020 08:12:00 AM EDEsau RABAGO ([facility]) Name Value Range Interpretation Code Description Data Morena rce(s) Supporting Document(s) Magnesium [Mass/volume] in Serum or Plasma 1.9 mg/dL 1.8-2.4 [facility] ([facility]) ID Date Data Source [id number] 12/27/2020 08:12:00 AM EDT [facility] ([facility]) Name Value Range Interpretation Code Description Data Morena rce(s) Supporting Document(s) Blood Urea Nitrogen 25 mg/dL 7-18 [facility] ([facility]) Glucose, Fasting 168 mg/dL 70-100 [facility] ([facility]) Glomerular Filtration Rate Laboratory test result [facility] ([facility]) <content>Units are mL/min/1.73 m2</content>
<content></content>
<content>Chronic Kidney Disease Staging per NKF:</content>
<content></content>
<content>Stage I & II GFR >=60 Normal to Mildly Decreased</content>
<content>Stage III GFR 30- 59 Moderately Decreased</content>
<content>Stage IV GFR 15-29 Severely Decreased</content>
<content>Stage V GFR <15 Very Little GFR Left</content>
<content>ESRD GFR <15 on STEEL WELDER</content>
<content></content> Creatinine For GFR 1.26 mg/dL 0.70-1.30 [facility] ([facility]) Potassium Serum 4.5 meq/L 3.5-5.1 [facility] ([facility]) Sodium Level 137 meq/L 136-145 [facility] ([facility]) Chloride Level 99 meq/L 98-107 [facility] ([facility]) Anion Gap 8 meq/L 8-16 [facility] ([facility]) Carbon Dioxide Level 30 meq/L 21-32 [facility] ([facility]) Calcium Level 9.5 mg/dL 8.5-10.1 [facility] ([facility]) Alt/SGPT 116 U/L 12-78 [facility] ([facility]) Ast/Sgot 36 U/L 7-37 [facility] ([facility]) Bilirubin,Total 0.7 mg/dL 0.2-1.0 [facility] ([facility]) Alkaline Phosphatase 71 U/L 45-117 [facility] ([facility]) Total Protein 7.4 GM/DL 6.4-8.2 [facility] ([facility]) Albumin 3.7 GM/DL 3.2-5.2 [facility] ([facility]) Albumin/Globulin Ratio 1.0 [facility] ([facility]) ID Date Data Source [id number] 12/27/2020 08:12:00 AM EDT [facility] ([facility]) Name Value Range Interpretation Code Description Data Morena rce(s) Supporting Document(s) Natriuretic peptide.B prohormone N-Terminal [Mass/volu me] in Serum or Plasma 1141 pg/mL [facility]) ID Date Data Source [id number] 12/17/2020 06:57:27 PM EDT [address] [address] Name: DILAN KIRKDOB: 1960ex: MOrnathaniel Provider: Sulma Cristobal Prov: Sulma Sanchez Provider: Procedure Performed: / XR CHEST PORTABLEExam Date: 12/17/2020 18:56MRN: [id number] Number: [id number] Class: InpatientAccount #: [id number] for Exam: icdTechnique: AP portable view obtained.Comparison: December 13, 2020Findings: ICD lead is projected over the right ventricle. There is moderate cardiac megaly. No adenopathy is revealed. No pneumothorax demonstrated. No pleural effusion is demonstrated. Lungs are hypoinflated but clear.IMPRESSION: Cardiomegaly. No pneumothorax.Report electronically signed by: HAILEE CHARLES On 12/17/2020 6:57 PMWorkstation ID: [id number] Name Value Range Interpretation Code Description Data Morena rce(s) Supporting Document(s) ID Date Data Source [id number] 12/17/2020 06:54:08 PM EDT [facility] Name Value Range Interpretation Code Description Data Morena rce(s) Supporting Document(s) POC NOVA GLU 112 mg/dL (70-99) H [facility] [place] [facility]FOR[facility] CLINICAL STAFF ID Date Data Source [id number] 12/17/2020 05:58:49 PM EDT [facility] Name Value Range Interpretation Code Description Data Morena rce(s) Supporting Document(s) &PDF [facility] [id number] Dcm [file] [id number]= ID Date Data Source [id number] 12/17/2020 11:50:01 AM EDT [facility] Name Value Range Interpretation Code Description Data Morena rce(s) Supporting Document(s) POC NOVA GLU 193 mg/dL (70-99) H [facility] [place] [facility] CLINICAL STAFF ID Date Data Source [id number] 12/17/2020 09:15:22 AM EDT [facility] Name Value Range Interpretation Code Description Data Morena rce(s) Supporting Document(s) POC NOVA GLU 149 mg/dL (70-99) H [facility] [place] [facility] CLINICAL STAFF ID Date Data Source [id number] 12/17/2020 10:43:50 AM EDT [facility] Name Value Range Interpretation Code Description Data Morena rce(s) Supporting Document(s) APTT 60.9 s (22.0-34.3) H [facility] ID Date Data Source [id number] 12/17/2020 01:55:46 AM EDT [facility] Name Value Range Interpretation Code Description Data Morena rce(s) Supporting Document(s) APTT 73.2 s (22.0-34.3) H [facility] ID Date Data Source [id number] 12/16/2020 05:57:46 PM EDT [facility] [place] Name Value Range Interpretation Code Description Data Morena rce(s) Supporting Document(s) POC NOVA GLU 104 mg/dL (70-99) H [facility] [place] [facility] CLINICAL STAFF ID Date Data Source [id number] 12/16/2020 05:43:04 PM EDT [facility] [place] Name Value Range Interpretation Code Description Data Morena rce(s) Supporting Document(s) APTT 56.3 s (22.0-34.3) H [facility] ID Date Data Source [id number] 12/16/2020 12:34:46 PM EDT [facility]PAT[facility] NT INFORMATIONPatient MRN Name Date of Age Gend*PT [id number] Dilan Kirk 1960 60 years M IPPT Location Admission Date/Time Visit ID Attending [id number] 12/13/20 1238 --- Crystal Neal MD([id number]) EPI ID CSN Admitting Provider [id number] Crystal Neal MD([id number]) Attestation signed by Crystal Neal MD at 12/16/2020 12:34 PMPatient seen and examined independently on 12/13, I discussed management and Iagree with plan outlined by Griselda Grimaldo. Plan for emergent dialysis.Signature: CLARKE Harrisonate: December 16, 2020Time: 12:34 PM Inpatient History & PhysicalDilan KirkMRN:[id number] from [facility]: [place] s/p cardioversion, elevated troponinHPI: 60 years-old male with pmhx significant for CAD with ICM (EF 40%), DM2, HTNpresents 12/13/20 to [facility] as a transfer from [facility]. He was c/o dizzinesssince Sunday - states he drank too much at a field day with persistentdizziness and paraesthesias in his extremities -- arrived to [facility] ED, foundto be in VT requiring cardioversion x 1 (200 J). He states his paraesthesias anddizziness resolved -- Post cardioversion EKG SR with ST elevations to lead III,lateral depressions. 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 Wright ([place]). Spoke to Dr. Erickson(cardiology) for consult, will also consult nephrology.Assessment and Plan:Principal Problem: Coronary artery disease involving [place] coronary artery of [place] heart withunstable angina pectorisActive Problems: VT (ventricular tachycardia) COPD (chronic obstructive pulmonary disease) DM2 (diabetes mellitus, type 2) HTN (hypertension) Tobacco use Elevated troponin JOHN (acute kidney injury) Elevated LFTsVT, elevated troponin, Hx of single vessel CAD (RCA), s/p cardioversion,currently SR with occasional PVC- continue aspirin/plavix- continue heparin drip- cardiology consult is pending- r/o [id number], denies any previous history of renal problems, [...] 2- check A1c- serum glucose 150 (from [facility])- home meds: metformin, Steglatro- monitor BG, start lantus 6u nightly, 2u ISSDVT prophylaxis: heparin dripCode status: FULL CODED/w Dr. Dwyer Medical History:Past Medical History:Diagnosis Date Asthma Cardiomegaly COPD (chronic obstructive pulmonary disease) Coronary artery disease Diabetes mellitus History of herniated intervertebral disc Hypertension [place] (myocardial infarction) Sinusitis Umbilical herniaPast Surgical History:No [...] chewable tablet Chew 81 mg daily Historical Provider,tJtorvastatin (LIPITOR) 80 MG tablet Take 80 mg [...] Griselda Grimaldo, NPDate: December 13, 2020Time: 1:50 [id number] Name Value Range Interpretation Code Description Data Morena rce(s) Supporting Document(s) ID Date Data Source [id number] 12/16/2020 12:04:32 PM EDT [facility] Name Value Range Interpretation Code Description Data Morena rce(s) Supporting Document(s) POC NOVA GLU 115 mg/dL (70-99) H [facility] [place] [facility] CLINICAL STAFF ID Date Data Source [id number] 12/16/2020 11:09:20 AM EDT [facility] Name Value Range Interpretation Code Description Data Morena rce(s) Supporting Document(s) PHOSPHORUS 1.6 mg/dL (2.5-4.5) L [facility] ID Date Data Source [id number] 12/16/2020 11:09:20 AM EDT [facility] Name Value Range Interpretation Code Description Data Morena rce(s) Supporting Document(s) SODIUM 136 mmol/L (136-145) [facility] POTASSIUM 3.6 mmol/L (3.6-5.2) [facility] CHLORIDE 100 mmol/L (100-108) [facility] CO2 31 mmol/L (22-31) [facility] ANION GAP 5 mmol/L (7-16) L [facility] UREA NITROGEN 22 mg/dL (7-24) [facility] CREATININE 1.00 mg/dL (0.80-1.30) [facility] BUN/CREAT RATIO 22.0 RATIO (10.0-20.0) H [facility] GLUCOSE 125 mg/dL (70-99) H [facility] CALCIUM 8.2 mg/dL (8.4-10.2) L [facility] GFR >60 ml/min/1.73m2 (>59) [facility] GFR ( AMER) >60 ml/min/1.73m2 (>59) [facility] GFR INTERPRETATION [facility] --NORMAL KIDNEY FUNCTION OR MILD DISEASE - GFR >OR= 60CHRONIC KIDNEY DISEASE - GFR 15 - 59RENAL FAILURE - GFR <15 Est. GFR calculation based on the MDRDstudy equation, which assumes a steadystate for creatinine. Est. GFR should notbe used for medication dosing. ID Date Data Source [id number] 12/16/2020 10:51:49 AM EDT [facility] [place] Name Value Range Interpretation Code Description Data Morena rce(s) Supporting Document(s) WBC 10.1 10*3/uL (4.1-11.0) [facility] RBC 4.59 10*6/uL (4.60-6.10) L [facility] HGB 15.2 g/dL (13.5-18.0) [facility] HCT 43.4 % (41.0-53.0) [facility] MCV 94.4 fL (80.0-95.0) [facility] MCH 33.0 pg (27.0-32.0) H [facility] MCHC 35.0 g/dL (32.0-36.0) [facility] RDW 14.7 % (10.5-14.5) H [facility] PLT 130 10*3/uL (150-450) L [facility] MPV 8.8 fL (7.1-10.7) [facility] ID Date Data Source [id number] 12/16/2020 11:07:19 AM EDT [facility] [place] Name Value Range Interpretation Code Description Data Morena rce(s) Supporting Document(s) APTT 56.6 s (22.0-34.3) H [facility] ID Date Data Source [id number] 12/15/2020 11:02:30 PM EDT [facility] Name Value Range Interpretation Code Description Data Morena rce(s) Supporting Document(s) APTT 61.8 s (22.0-34.3) H [facility] ID Date Data Source [id number] 12/15/2020 06:29:11 PM EDT [facility] Name Value Range Interpretation Code Description Data Morena rce(s) Supporting Document(s) POC NOVA GLU 167 mg/dL (70-99) H [facility] [place] [facility] [place] [facility] CLINICAL STAFF ID Date Data Source [id number] 12/15/2020 05:45:14 PM EDT [facility] Name Value Range Interpretation Code Description Data Morena rce(s) Supporting Document(s) &PDF [facility] [id number] yZW [file] [id number] ID Date Data Source [id number] 12/15/2020 01:37:03 PM EDT [facility] Name Value Range Interpretation Code Description Data Morena rce(s) Supporting Document(s) POC NOVA GLU 116 mg/dL (70-99) H [facility] [place] [facility] [place] [facility] CLINICAL STAFF ID Date Data Source [id number] 12/15/2020 10:28:49 AM EDT [facility]PAT[facility] NT INFORMATIONPatient MRN Name Date of Age Gend*PT [id number] Dilan Kirk 1960 60 years M IPPT Location Admission Date/Time Visit ID Attending ProviderHEMODIALYSIS 12/13/20 1238 --- Crystal Neal MD([id number]) EPI ID CSN Admitting Provider [id number] Crystal Neal MD([id number])INPATIENT EP CONSULT NOTEPatient Name: Dilan Kirk of [...] J tosinus rhythmHe is a transfer from [facility].He is known to have chronically occluded RCA and prior inferior wall myocardialinfarction.He had a left heart cath in 2005 at [facility] chronic RCA occlusion iymfcnnu-pr-npbhi collaterals. No significant other disease. Repeat cath [...] mellitus History of herniated intervertebral disc Hypertension [place] (myocardial infarction) Sinusitis Umbilical herniaPAST SURGICAL HISTORY:No [...] normalPERTINENT LABS:Results from last 7 daysLab Units 09/08/958180 12/14/2101HEMOGLOBIN g/dL 15.5 15.7 -- -- -- [...] heart attack, stroke, oreven .Leo Hylton M.D., [facility], RSClinical Cardiac Electrophysiology12/15/2020 8:57 AM Name Value Range Interpretation Code Description Data Morena rce(s) Supporting Document(s) ID Date Data Source [id number] 12/15/2020 08:50:28 AM EDT [facility] Name Value Range Interpretation Code Description Data Morena rce(s) Supporting Document(s) POC NOVA GLU 107 mg/dL (70-99) H [facility] [place] [facility] [place] [facility] CLINICAL STAFF ID Date Data Source [id number] 12/15/2020 08:46:34 AM EDT [facility] CenterPAT[facility] NT INFORMATIONPatient MRN Name Date of Age Gend*PT [id number] Dilan Kirk 1960 60 years M IPPT Location Admission Date/Time Visit ID Attending ProviderSELECT [facility] 12/13/20 1238 --- Crystal Neal MD([id number]) EPI ID [facility] Admitting Provider [id number] Crystal Neal MD([id number])CARDIOLOGY CONSULTATIONName: Dilan Kirk Gender: maleDate of : 1960 Age: 60 yearsDate/Time of Admit: 12/13/2020 12:38 PM Code Status: Full CodePrimary Care Provider / Referring Physician: PCP PROVIDER REQUESTEDInformant:HISTORYCHIEF COMPLAINT: No chief complaint on file.HPI:This patient is a 60 years male who was transferred here from [place] [address] after complaining of dizziness and going to [...] mellitus History of herniated intervertebral disc Hypertension [place] (myocardial infarction) Sinusitis Umbilical herniaPSH: No past [...] Social Gatherings with Friends and Family: Attends [employer] Services: Active Member of Clubs or Organizations: [...] not clear, given the presenceof a 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 Sustained monomorphic VT3. [...] rce(s) Supporting Document(s) ID Date Data Source [id number] 12/15/2020 09:19:32 AM EDT [facility] Name Value Range Interpretation Code Description Data Morena rce(s) Supporting Document(s) PHOSPHORUS 2.2 mg/dL (2.5-4.5) L [facility] ID Date Data Source [id number] 12/15/2020 09:19:32 AM EDT [facility] Name Value Range Interpretation Code Description Data Morena rce(s) Supporting Document(s) SODIUM 135 mmol/L (136-145) L [facility] POTASSIUM 3.5 mmol/L (3.6-5.2) L [facility] CHLORIDE 100 mmol/L (100-108) [facility] CO2 27 mmol/L (22-31) [facility] ANION GAP 8 mmol/L (7-16) [facility] UREA NITROGEN 38 mg/dL (7-24) H [facility] CREATININE 1.38 mg/dL (0.80-1.30) H [facility] BUN/CREAT RATIO 27.5 RATIO (10.0-20.0) H [facility] GLUCOSE 117 mg/dL (70-99) H [facility] CALCIUM 8.4 mg/dL (8.4-10.2) [facility] GFR 53 ml/min/1.73m2 (>59) L [facility] GFR ( AMER) >60 ml/min/1.73m2 (>59) [facility] GFR INTERPRETATION [facility] --NORMAL KIDNEY FUNCTION OR MILD DISEASE - GFR >OR= 60CHRONIC KIDNEY DISEASE - GFR 15 - 59RENAL FAILURE - GFR <15 Est. GFR calculation based on the MDRDstudy equation, which assumes a steadystate for creatinine. Est. GFR should notbe used for medication dosing. ID Date Data Source [id number] 12/15/2020 09:03:38 AM EDT [facility] Name Value Range Interpretation Code Description Data Morena rce(s) Supporting Document(s) WBC 9.1 10*3/uL (4.1-11.0) [facility] [place] RBC 4.70 10*6/uL (4.60-6.10) [facility] HGB 15.3 g/dL (13.5-18.0) [facility] HCT 44.2 % (41.0-53.0) [facility] MCV 94.0 fL (80.0-95.0) [facility] MCH 32.5 pg (27.0-32.0) H [facility] MCHC 34.5 g/dL (32.0-36.0) [facility] RDW 14.3 % (10.5-14.5) [facility] PLT 111 10*3/uL (150-450) L [facility] MPV 9.1 fL (7.1-10.7) [facility] ID Date Data Source [id number] 12/15/2020 09:10:42 AM EDT [facility] Name Value Range Interpretation Code Description Data Morena rce(s) Supporting Document(s) APTT 134.6 s (22.0-34.3) H [facility] ALERTED CRITICAL RESULT NADIA (3563) IN [facility] AT 0908 ON 12/15/20 [place] [address] ID Date Data Source [id number] 12/15/2020 08:23:57 AM EDT [facility] Name Value Range Interpretation Code Description Data Morena rce(s) Supporting Document(s) WBC 8.0 10*3/uL (4.1-11.0) [facility] [place] RBC 4.77 10*6/uL (4.60-6.10) [facility] HGB 15.5 g/dL (13.5-18.0) [facility] HCT 44.7 % (41.0-53.0) [facility] MCV 93.8 fL (80.0-95.0) [facility] MCH 32.5 pg (27.0-32.0) H [facility] MCHC 34.7 g/dL (32.0-36.0) [facility] RDW 14.3 % (10.5-14.5) [facility] PLT 95 10*3/uL (150-450) L [facility] MPV 9.2 fL (7.1-10.7) [facility] ID Date Data Source [id number] 12/15/2020 08:17:35 AM EDT [facility] Name Value Range Interpretation Code Description Data Morena rce(s) Supporting Document(s) BILIRUBIN,UNCONJ. 0.5 mg/dL (0.0-0.7) [facility] ID Date Data Source [id number] 12/15/2020 08:17:25 AM EDT [facility] Name Value Range Interpretation Code Description Data Morena rce(s) Supporting Document(s) MAGNESIUM 1.8 mg/dL (1.7-2.4) [facility] ID Date Data Source [id number] 12/15/2020 08:17:25 AM EDT [facility] Name Value Range Interpretation Code Description Data Morena rce(s) Supporting Document(s) SODIUM 135 mmol/L (136-145) L [facility] POTASSIUM 3.4 mmol/L (3.6-5.2) L [facility] CHLORIDE 102 mmol/L (100-108) [facility] CO2 26 mmol/L (22-31) [facility] ANION GAP 7 mmol/L (7-16) [facility] UREA NITROGEN 40 mg/dL (7-24) H [facility] CREATININE 1.41 mg/dL (0.80-1.30) H [facility] BUN/CREAT RATIO 28.4 RATIO (10.0-20.0) H [facility] GLUCOSE 94 mg/dL (70-99) [facility] CALCIUM 8.4 mg/dL (8.4-10.2) [facility] TOTAL PROTEIN 6.3 g/dL (6.4-8.2) L [facility] ALBUMIN 3.1 g/dL (3.5-4.6) L [facility] GLOBULIN 3.2 g/dL (2.7-4.3) [facility] ALB/GLOB RATIO 1.0 RATIO [facility] ALKALINE PHOSPHATASE 50 U/L (45-117) [facility] BILIRUBIN,TOTAL 0.7 mg/dL (0.0-1.0) [facility] PLEASE NOTE:Total bilirubin results may be falselyelevated in patients taking Eltrombopag. AST (SGOT) 969 U/L (11-39) H [facility] ALT (SGPT) 3334 U/L (12-78) H [facility] GFR 51 ml/min/1.73m2 (>59) L [facility] GFR ( AMER) >60 ml/min/1.73m2 (>59) [facility] GFR INTERPRETATION [facility] --NORMAL KIDNEY FUNCTION OR MILD DISEASE - GFR >OR= 60CHRONIC KIDNEY DISEASE - GFR 15 - 59RENAL FAILURE - GFR <15 Est. GFR calculation based on the MDRDstudy equation, which assumes a steadystate for creatinine. Est. GFR should notbe used for medication dosing. ID Date Data Source [id number] 12/15/2020 08:17:25 AM EDT [facility] Name Value Range Interpretation Code Description Data Morena rce(s) Supporting Document(s) BILIRUBIN,CONJUGATED 0.2 mg/dL (0.0-0.3) [facility] ID Date Data Source [id number] 12/14/2020 08:12:03 PM EDT [facility] Name Value Range Interpretation Code Description Data Morena rce(s) Supporting Document(s) APTT 16.2 s (22.0-34.3) L [facility] PERFORMED BY ALTERNATE METHOD. REFERENCE RANGE = 24.7 - 33.3 ID Date Data Source [id number] 12/14/2020 04:54:41 PM EDT [facility] Name Value Range Interpretation Code Description Data Morena rce(s) Supporting Document(s) POC NOVA GLU 175 mg/dL (70-99) H [facility] [place] PERFORMED BY [facility] CL[facility]ICAL STAFF ID Date Data Source [id number] 12/14/2020 12:31:36 PM EDT [facility] Name Value Range Interpretation Code Description Data Morena rce(s) Supporting Document(s) POC NOVA GLU 105 mg/dL (70-99) H [facility] [place] PERFORMED BY [facility] ID Date Data Source [id number] 12/14/2020 09:18:33 AM EDT [facility] Name Value Range Interpretation Code Description Data Morena rce(s) Supporting Document(s) POC NOVA GLU 153 mg/dL (70-99) H [facility] [place] PERFOR[facility] BY [facility] ID Date Data Source [id number] 12/14/2020 08:58:22 AM EDT [facility] Name Value Range Interpretation Code Description Data Morena rce(s) Supporting Document(s) &PDF [facility] SUEPGn6aJeUMKqIu50/NLYvpRIRks6VsEGqcEPp7TDfxDSUfW0EekMnnFBzBVuNEQA0DKJ5JHQhHSOyY yZW [file] azM1ncGOcgFIR4J16U4f7s69323k916sW1qTeakyWU 67NVItNPkJwzJXNvWKpRjuUBoxBjmhxuE1BJxYZAC8uir7fzT3tv/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/wqZENTTq5bchYnz8T19+18K [file] AgICAgICAgICAgICAgICAgICAgICAgICAgICAgICAg ICAgICAgICAgICAgICAgICAgICAgICAgICAgICAgICAgICAgICAgICAgICAgICAgICAgICAgICAgICAg ICAgDQogICAgICAgICAgICAgICAgICAgICAgICAgICAgICAgICAgICAgICAgICAgICAgICAgICAgICAg ICAgICAgICAgICAgICAgICAgICAgICAgICAgICAgIC AgICAgICAgICAgICAgDQogICAgICAgICAgICAgICAgICAgICAgICAgICAgICAgICAgICAgICAgICAgIC AgICAgICAgICAgICAgICAgICAgICAgICAgICAgICAgICAgICAgICAgICAgICAgICAgICAgICAgDQogIC AgICAgICAgICAgICAgICAgICAgICAgICAgICAgICAg ICAgICAgICAgICAgICAgICAgICAgICAgICAgICAgICAgICAgICAgICAgICAgICAgICAgICAgICAgICAg ICAgICAgDQogICAgICAgICAgICAgICAgICAgICAgICAgICAgICAgICAgICAgICAgICAgICAgICAgICAg ICAgICAgICAgICAgICAgICAgICAgICAgICAgICAgIC AgICAgICAgICAgICAgICAgDQogICAgICAgICAgICAgICAgICAgICAgICAgICAgICAgICAgICAgICAgIC AgICAgICAgICAgICAgICAgICAgICAgICAgICAgICAgICAgICAgICAgICAgICAgICAgICAgICAgICAgDQ ogICAgICAgICAgICAgICAgICAgICAgICAgICAgICAg ICAgICAgICAgICAgICAgICAgICAgICAgICAgICAgICAgICAgICAgICAgICAgICAgICAgICAgICAgICAg ICAgICAgICAgDQogICAgICAgICAgICAgICAgICAgICAgICAgICAgICAgICAgICAgICAgICAgICAgICAg ICAgICAgICAgICAgICAgICAgICAgICAgICAgICAgIC AgICAgICAgICAgICAgICAgICAgDQogICAgICAgICAgICAgICAgICAgICAgICAgICAgICAgICAgICAgIC AgICAgICAgICAgICAgICAgICAgICAgICAgICAgICAgICAgICAgICAgICAgICAgICAgICAgICAgICAgIC AgDQogICAgICAgICAgICAgICAgICAgICAgICAgICAg ICAgICAgICAgICAgICAgICAgICAgICAgICAgICAgICAgICAgICAgICAgICAgICAgICAgICAgICAgICAg PBYiGMUyPNFgWDByGIz7K7vsUVFjNUMzOA1yRDt8Ra1+TNkOZkHhTTX0wzDhhM8TMY0me2KjIDelKKFa m7FgWWn9SV4APKIzOTfrFK8ROYpbew7NDTPmLUGveZ KGe6ctDjMzDTL8RAFwQnzmRU5WBGXhH0yvhxThJRClNNEYFCncYFQTUP3GToIeE3XcpC29CJVFCk8+DQ xqkyPlLcxOAjI6PYAxl3IxCUw7SX9FQVIaUNgrOP7IRXUjeY8jFQmaSX1ZJxOnYMLtMSYKIuPwB99iuV VfTHz4Z1WaDhPyMKRuZgocAGBvOXbvOhGzCLUmIlIc DQogID4+ID4+YUzcYM5SZPqenxHbLSDrIc7DGWJqQEE4NFLblYKgIqZeOMJJXJnbFG8LdBGxIZF7qX5p LWbvBDPrCKLuR8oZHxYmkZniLV98nZeufgTriTLoIZf+Xp9MWO3ua7YjONc2yaGzOEycNLZ1OWklYXAo CYBuROXfDQG5NYM3UMCNQaLzCPZdLLJyTLjlDPVlPU Pyrl3ZIIPcKDPiPBPlErKiXQKlGVMyZQlaNNJtTQG7WSzxNRAkHGIfAM2SRgWaRPIsADHmKPfaBOAxRG Hrat1TLSBxMVNuKvTrZYIaHUAsLXYtYTweAJKnGJRiPeZ1RIPxYNFfHM1PZeJaVIDiBNY8PQGkEGRbTJ Yrxp5POUFoOOHpHTz0SXInLRToIXVuJCofMLYoJNG9 SVD9QBLrSENuSD0VFlTgYTNiKPBtHKMqWPDfEXPdbe3ULLMfHSHgUvAxAYCpDSXfCFGnGKllNFAyVXQ2 SMpkKASdWWCbBC9ZCmRuIBWrYMdbQLUyDPFmNAUlxq8NUCRrZMKlObJ7WKIjBATfIRAhAAgqYUKtBEXk SEB5QAMaMYAqAZ8YUbLaAAHrDAJ3XSAuFSFqVJLrdi 9TCUUtMVRwTph1YCQlUWDeOSPtEYsmGPLzKDMlPaS5IPLjKNXtNW0UAvCyCEEbUHNdRLDbQOExFUJvdb 9ILSCmQUEjPTH4BJCeWLXhIUDcFEzyOMBoWRR9CHb2TLAcMFUeHX3DIoLlBNEzRYJ9NFOoVOZjDGZuqp 3CSYVsVPQkLRqeKXNiSXTmCOUvMWlzKLJtYZK0NYu0 HTUxPLXvNM4UCeImGVXlWdQ3ZqHjKCDtLPGsxf4LZTHpHTDjPCz8MHYnLTDwARXlQBx9tgRkiNXxHYf6 SD5RY1TxtvMqJzeORa7Yj047NCC2IQCmTc9GC6clEh6kISWaBIZJKj4GRMy6WXJlOwsnNBc9FBCbPpV6 EFH6BNWdAdt8IkXkIJsdIWq+OHgvQOM8CfV7QScyJv N4UQZ4LdllLBUuIOtlFlBlTEApAQ8mXGYRWs3+YVyfyQJtvLhiXBCNMuL7XPUvQXmeSQSPYl6H ID Date Data Source [id number] 12/14/2020 08:33:38 AM EDT [address] [address]Evvqybx Name: DILAN KIRKDOB: 1960ex: MOrdering Provider: GRISELDA Gonzalezhorizing Prov: GRISELDA Reed Provider: Procedure Performed: / US RENAL KIDNEY BILATERALExam Date: 12/13/2020 16:01MRN: [id number] Number: [id number] Class: InpatientAccount #: [id number] for Exam: akiTechnique: Real time sonographic images [...] CONSTANTINE JANG On 12/14/2020 8:33 AMWorkstation ID: [id number] - [id number] Name Value Range Interpretation Code Description Data Morena rce(s) Supporting Document(s) ID Date Data Source [id number] 12/14/2020 08:31:00 AM EDT [address] [address]Iskegqm Name: DILAN KIRKDOB: 3Sex: MOrdering Provider: GRISELDA GRIMALDOAuthorineno Prov: GRISELDA Reed Provider: Procedure Performed: / US RIGHT UPPER QUADRANTExam Date: 12/13/2020 16:01MRN: [id number] Number: [id number] Class: InpatientAccount #: [id number] for Exam: elevated LFTsTechnique: Real time sonographic [...] CONSTANTINE JANG On 12/14/2020 8:31 AMWorkstation ID: [id number] - PS360 Name Value Range Interpretation Code Description Data Morena rce(s) Supporting Document(s) ID Date Data Source [id number] 12/14/2020 07:45:05 AM EDT [facility] INFORMATIONPatient MRN Name Date of Age Gend*PT [id number] Dilan Kirk 1960 60 years M IPPT Location Admission Date/Time Visit ID Attending [id number] 12/13/20 1238 --- Crystal Neal MD([id number]) EPI ID CSN Admitting Provider [id number] Crystal Neal MD([id number]) Attestation signed by Liliana Harmon DO at [...] rce(s) Supporting Document(s) ID Date Data Source [id number] 12/14/2020 07:39:37 AM EDT [facility] Name Value Range Interpretation Code Description Data Morena rce(s) Supporting Document(s) EKG [facility] UYPEZr1oPeLUMaVkb9OyWgKbDLMfST0uyoz6B0P3tGKsI8StjHYks4yyC1MhG0BcXMDlLELIHX3QgROs jb2 [file] MKcZBp299WTHRfNMX+window shade cloth sewer+XfPGISzi55pNwmYwHu0SNbXmIABbWusxUGnl905KYSJ2rfMjwJfVuFnEWR bAfHKx9MufROMPgVnd6mGhRvnBGrRZF0eXz5xr9ekmW+tkBnvBQK64iNmkZfaAs8sdZ0CQ9klvqMOLgS a/BMQvJu2cJTausK/UPgF3Mm3eSSo9R4bH4p1DvGUf oLJ+zM3kIfCrp4gyHhpUbeObiMyNobhypvChX+hmqT45XgLQbwPPH4YK/8E3/l62PY3Wyi7of/cjLiCH PaD5Z0hO/4JzrwT/qX41R0ir0wDT15p3Fm+MJcTmtsjE63jUkRH8uW939z8OcEU5Hx6u+8iT/wNlWarA ze8VPQ2nGzi/gVu0EY9PnbhsYGkylRflWg+ERvqoMu QkER0QEPdqu/7Jgthr3nBzegh9874LuNugqmLX1AnSeyCprzwlkPVNa0szysUqQbFAbmC2o9wONhqOeO zwM9uIeALiQV0NzSKhkXcg6DAkHGBVuN56Q5DLzTWJeUehQIxwfvHO9707k3mvs33kp6ZCB8ZliCg0zW Crt8f8KfUbU01JrwjQ8UShpuWsxyAc7Nj83xZMDf7L ENWJ7T0/FqxiVyfH8sNGhQC7ajtBTjxeWTjOEPMrbvjqj/oC8kFd9QAEmnE4qxH1tfzrEN2tN281ypGy Hribmb+bSIJZNcBkaGK5i8B1Ii4Ap8H2u89Rh1ddR8EtuE2AyeG/DZE4CnA+auONEVJ/vHqOF7DPjhhY bubRtbhsSzVcqyn1WksPbOqMsBKN0Xwd8cLsMVzQLL H95h7Wva/YGrDlztQHGiu/oDxYnuagfuylF/9WhU18eoahoYIt8ISVWQrfxb21n18U7pVRl6PLHDdQmX bdkXVm8QwUewwEUPM3hMAZthyFdTrdyOCXJXjuADF7SIZJ8r5PzgPE/qE4/6xKP+4MgtIj+5Cuk4L5c9 6oPoxZ8WJd2zI0MUOKp7NhgKnNxajnHRiVVlDTmrOv 0jdrA/yCP16Rhn/mTPtD+xg/3JXNiKE/agricultural lender+P+xB/rzjixoz09Xe2HR/z4sE2Jmky8bwVSuKcxVGDQIZ [file] egr2zvweeoP0XU9MY0HPvQI0d8uNVMl7A66C9Z/Tiera/IO7kO4pVXij/yxxAEpfyxfjmxAZMS+u2r5Yx hC2pfoJ5fsjP+Wuaz1WBB+JJJqioral4mL6A41EvtP 072injdq8n4dHnVW7RjV4iemp15bB4829jGue6RKsrb3Q5Mab5QY8vUUUt7lKkRgxcV34GmhYra3Q5hx i8e6yGeGX+SX7Fi4L7hs7Yl6N+IB0ux1cizNV3sQ9HycTY3hP44CNiKcIqyxwUMBZO+SE4agGqT/Cwa7 JV2nM1ej0P7IVzuVfK4LNOtlGvebof+IoR192WyQho SpBLnn1h0vrM2S6r0UmjcHw54l+8fxF4122Tn8tmxrXMn4V8PeWpZgB6k+p3B/SIxIpdzAyKgD6m/lr1 hE/M127B/Prlnwf5b0lsJGwI4uZXmD32FabZ+3G6g77a7Zhg1DNcYsnH0tT+K7c7mMmLpeir7vf4sHBG zSP16pyCpbw4UI+yElPjaO7NDaW62RvucN89PzTs2x 6hJehZTUWO839fsV54AEbG3eRhzy9r2htkKPRRdkIOXJi7oGFu+DVf5cu/tb0PUnFsWUaZM/LF+x8mnb wx/BE1TxRIhgAHrnbI9bD7FNOXZere/FH2V68OSAFZBMppfe/PFwgfs4gTjevrPXvD4epYHD+GHO8hwJ ksAxcJVgQoGhe98hUEt4E/kj95UvY0Hx7M0ziff03F YIUC39LIxwU+NRCjtpPD2xsBbs6Te1D2I6zAcxgsqkVT/45YH0eO4it4UqaCsqx98zu+WjVnZxusEuTr dT9tK6/PKHDLZ0wCPQMyF86H1l29fudOgOzMHWU46pR1CVXAlTJYNlnj7s9NQINj9SJaNtHE75wzS7l/ yxxE2k/FK4tmgkzdxB+WOJYvLHEsXkjyXus+SP5SvW afzcznIXtr4PyUpDC8sK4UgNcP48z4N/lq+Z3vrKEgrxRFHmK+9UI+K5akfFvW4TZAs/+1//6z//uC6L O7r6z//553/87/Y///cosmetics machine operator//3nv/7zL0//Q8njn//+l6u4/BRnmWUCic3zNJL85q3Yf/cXi1iivJ3jrKG9 [file] ez6ySic/32xbVvufXvM/Oe6ozf5zKRknT9ed50x/java lead engineer uuE3CV/99cvXerb+lo1+1+cp4AcVk8aZMg/nLzp1ivch06C0m/GR7cFa7zLc6qZ9puR5TfbE/qoifzad nzozdtxt16qy+3yp15zw2eGPXa902Eyc2TqN/YP2b3+HRbziOn435t7H6dTPWV8/vZ5/+SifnYtn2b3K ndvfanP2+M+FdhbqG/Hnp7NWvgb9FEc/+8vAk45Lm5 H/b324X0b0MQRxzfyU+2CkFsYbF7ARO38+yfeLymp4NO50Q+C6eS1mnl7smRmbez98e97575ra3udb4D zZxez96oZ/wyoTpo9fHbk48OstB0P+6g4r2kS3e+C516Hd/g7yfE4g9Z6aj/3elhkNcAny2P9sccm1x/ p8Keq6kf/1d3kF+Brd5q+/KzK+xK+/c5Y9c54HW3g9 YIM0oMdg9u8x1Lr/u/7jlSgo354hrbOkdG+Qf/tbNPz6++o48m9/KxzEr7/i2JT5I9EPt9hEWpuhWw8m Xd+td9OZUywd+7s+kY/46AO66fxZtapJkgy306gwvEfoyNcCo6S/6LfvnjyA2l4Yb2a6F3qZepMm5k3G cFPg6xVbx/m1Ypx0Jwbi89r0Q52RlwL8sP/ur6TN0d OD+H1Y8ux2x1V7B2Q7SiP3oP/A/z0R5zOx7i/1h7WFl8vodhdxjj+Y7OpF3+wsst0M7oOC5/Wf91Xl1y 0AL62y0r499bc2V8S/cXg+//IljZfv/h1pbTy+mj3vwUPLpz+//IUpmvv983vJ/FiA93l+/iwJBjQo91 swekFeqISdRBfNAosqWPB2o3FDde930wL6CpegAwJo nXr+si6mBZU63hEW4v4cjaJs9686/Hm1WPe35Qrsxq++2icSx0279wvJmFi73ol0wteA+yO3c6bt/tpZ ZcP4y9/ORgKzAnF8UxkFdO19HqC53/q5oxW5Qu5tKY77oXAh+b0fOZ3f7Fa4JfJ+yLl7cpby5yyyyOYR pb/P52v/AEiiZu9182X2Nmsbi2F3J4sl59pm6zuWU5 /F0zt/o4czFz3Jqv/5dDecq2e39tEP3Es81aMQIEcaP016Jt+z96/DEu885AGSC/K9iUI14q21jTWzfc x1BGmyrN05LkUis/yfh4SE8ghZBiPMj+HKKcKaxY0n7fHHP58OtmgkSuIHav+o3/vOL66YwtmyAU8ea1 yqfh5Uohd3sckevNAA/F90ZMOE36ZE27ioGv/w3f4/ 9eDLyzol4n6jT373JA//3EuP58MRj8SG/QK+5yEFm10J02Z3fllT/TrrC3o9gye6Dz/r/6NrtlHnvya+ nmExaL1hpQGh/p1k86faP/FVvasfbtGN/vdr5wv3Ric6JffzY92V85g3aADMf+Nop+/am1Zb5GyVyfmR O0441zUtv/csgtRQUysnH28laiAHK/ndi6+icDsw8s y7+TiGeOyh9pj2+AyYGqvbaMB648329o537g6ow/Mng3iRu9LAOnNpfhn++kF+mR83Gbn5h5ulh1oxQ+ kdxImY2aZX7p7Uy9773Nycfer/V4581Yd+vhYYr7/H+z40q6cd3cxDy1H+7W/RdkAP+oku7iMnflkf/x kj4hZoO5BxLZrXJUx6INKT+uhuPuXe6mWL+/3iq6U7 nz/8p34jFaAMsQG5XlAohrz/BgEM28JSIqmF/Ck5Ye8p9go14qwd27a63u2/tbCotTdHz+4RuEE4ZKTv c72p7As1nj5xKaKpiuyOI7ao6vmN/1My3Ay4q8L+I/8gv/lXc/R5NZN/aWDId2lRv8hhGv5lyfXzjkmi J/Lnd0/K7U1Mq69/ddTzuBoo86Rs3k/qKIi2xNzr0Y 28h39C9TXfeEr/sjmBs0urS20Wu2A/lX0B/2fhcp4YP+ex3pw4xtIo0odae+hv8a+xNlwkTh2N05kL14 V/E92KlqWnPwCltYZ7IplR/Z39/zsn+unV48n5qDwl4zM/53S3xe3u7BUcbV+5Ud+Rj/3Erqi2H4/Mariela Af/V3o72p+5DqAi4cU81u7/AaSU2L3saxI+evDgXMt dYd9Vh4/WuKi4W3zM/Nib6HRK/BIjua5eD/27Oc0XGXrmU98jCabkZq+1bT+35+mqI/+Gvpr2L+20I6h faSbKOy4qp+mob+G/hrWs2F+E1/pp0Ax6K4l27KolacTjLJ9iR7EW4ZuVp8C/apRad1Ea5g+Qqp6r20z E19V/kb7G+9bxTm7humX9+DzWI5j0paDk1185Nrnx/ 5NfJXtJ//yYIu5IdCS+mvWd5pS5mk1ekk6Qk7vqk93GedQXg1zqyI/juKnBhj9Ir0Tyreqt3Y+kf709P /yr6o++sgoTw60K/tXwi7UateA/h70F/axhlRs97zm9xt5U295GAIW+um6HgaCey/KJsJ81exuh6X/Bt Zz9P/tGKmOndai2I4DpH4VjsWV/Biv4gPNOigLXipK gfUcuI+w8YfXBlGyx1LL5f2OnZXxi3yuWKXAn90EcstJfIzriL/zMos8z2G4xmz6L/w7bvynHuWzgGnF 8xoH+Qft3/6efLfndyW+jvzDw6AUDoK7/C7p+9vWX02DW7Od0b4i55Icfjs7y/4K+fg7vfB48um+zpKW Ue5cqxPL0UCo2//ixtqk6y7r5gxw9jjSJqKumx8/l/ Q3hKAkVcQO7fxQCz33aYY/tcC/ObiCyfWwSe1wW/FVjoP2/l2K/gJfLeCrNTG/ia+lyWYR9zPs+z5as/ mxC/poJcbn0BLanfaGv+VrafWlQo37U+C8N0wBWI+oQ3kGq2wA/Ca+njqVz9lsnxm4doVzTn5J4AMVgJ At9Hf1+qhG3056FskiqB/9uzC/wFcL+XlTd9IyG5bO /khr5IMLRxan8g/Via9BkmGbKWj4cMurHs4USxacSm4iTko/8fMy7F/OndwfK6i+Al+aeXk6N2qk1wH8 ySdVu5rP+Kj0ah3aijDt7qh3ySJxnfJbm7+463V0PaF34wV5Vn4jXen2FL7tD/8gOPhz4n5885/Ebenezer+8 79+V+CrHyjG/ia+UxnXYng33htwM/Ca+yikrU0pivr 3srscgDa5usfk9Vu8mfTd765bMn4K/F1+lzOLq/uvWekb+ladcnsxV/P+ef/1PyzlOgLJ9Gi2QguU+qv yWp1yV/5KbXI1/7HQ7onmmmSukEBt7D+34aNoc+Uw6oq7OWh4/uMI9T43OL7Xlf5+Vdpq48eI0eZBpjQ L17yspfbn3gxgxzmX+A1+bcVo7i0iqeu8C1vuhHC6b ZCn73u5gU6DMU4eI+KvEggU6x72zffNnp8ONAE/6X4ki8ihQp690Nc9+Gs+qno7166tlpAZ/iWd9x0Gy 13rS30n6+n/SJkIZS5vR7D7/z93UPe3aoc8aA181kdR19kK/AhoanoX9YxLxdHIowsD/kYF/YhXvv5ta SSv+Vdbv/1+T/l+ooE8sWzlvoKYwQ56o7p3Bbm5/0L T/872fr7jze4vK524ip5BA/Kurpf/e2HZggRsaLI59Rim6f+91stnyma3/+Wfmu7/+fs+//LvHr3b+V/ /XXy/aDtq/+/kpZH8apyvda4T+FXr8Pc/ev1ctv/bj1cp/pV454JyjM1499qIed8hf2rwbnmonB6nuC4 vq+PO7pmf9zT++mswEo576+F/+5T/gMW20OuhNP56u scDQh4G/fdXwv+fLf66+HE0o8FrdPnh+pnvfjqS856nTW3xeH9dNeYe4z1Po3Hy2DwGluy+r+XW2+j4y yAdtbbTT+qg4Zk3g9lgXGw2ap/FljlWldvilt9h5/dGRP1oi+Dzc9EmT+Mqs/tlHGkUy12Uj/zVbaN++ +5IPD7N97t0d9/vXgK/M+v41a/xs1v/7V7v+7S9rvG G78bPt/t+33fqElvgqadjadCa+kmc8fdCkVUmHh6fawmft7nz15i90nun/8QhAKju70cmi2Pz0huUs/6 Cd1t+4ivSv/bZX26KgPftrMm6Pu4njxy9oxFGzpZ2TU27o7IjIM419nE8kcNF3FBv8/p0tF1/ThFt30n u7e8bKA77I2u8NF6+7cdCgT1zH4CZuAbtFh7vAvW9l byepT9txsfd/8+riq5d/+6mqQwCofZybXL2CpR/R/u5z9aC/C039KoNyyJt4rnj5wXWgFI7YjjFzRv4F V/Uk04rua/mM2eztC/FVrv/A+HejeocOt3G99kgw9wuBeCGd0k5R4wzvPz1INEC7IljkTcUiU/4ezZ/c o/SKKj2ok7+dGj2VJn2/3iNz603+lWZ+01hr1svfS/ OFUDf0T/kb+a3/dQSkMaEIfkoNI0EzqLRVU74K/ZaW72/p+2hLy/a7FE5Rus+qDvoL/fYN/fYN/fYt6K +vs8EJwpf+3ZY+kzxbg4qV2u74I/2KaLDLd2F4DR/47CuuL71tmytW7lft2N/rjgIYs02lL37lwIlc4x 3+1Qb/aoN/taF/qjKl4CB2+z7aGmi/+kB07b93cf++ Z//e62c49t3+1Qb/as/m52zoX+3Z/Oc9mx+6i24EhLfc8ReA16q33x88dR04WM/xyqzou1ofhbfnj1Y+ 8BF2vH5V/tOh3iE3u1br/j1k17R2EQdW4v6dzx2ZTk4fT+sgwSf86J/2wnoG/2qzjsfyIl1sY/PrtqG/ 8pipD70l8rf91kpmzHM/sDpCQ9m7WdUu2Iw42VVqUC +G+PTxN7pjifbfYJw2h42TdLk/H+2N+l5Az57CW+7d/Rn2M02aj3pcob1PLa2puOCwqfivkif48s/d/4 Ae4gJ3w1+3IR/cG/3drU+7agPq0M/ayb/KcU7+8Gkmrry45XImof/7d0M+zS0mDilT+tH71q8yQ6+99T v6g31g8lni459L2//7G/MD1n9B8ok/9/fB/E7JI1qy t++D+yj5V/nd5F/v9LK7IimpY/o0oR1S0rV27/bOxXEfav1O4uglaX0U3c+PT/Vkkx7cMqM2Y/p/fwfW M/TbN/TbdyjqY/3O4q8nmJNq0z0EaOaulHkZW4q5w+ShrmO19YcrJ7N9IrGieB697DME11zPj46qO8W0 rQ/dm42nLy1/Lg3oB69/HfjKR/NzfBi+2/Pro+9fh3 zQR9+/Plr/2zjSV98E8VTmS3gWDferBo4qWGhE/f7/yGg57oA2QBqCbqj3B/CQN127+Hank+1DQqxgY64 +Dpt0YnLJuDUq3sfPxLlh0rgn5Af883ufbHiuJfpn8I70LY1gk2v0zI/2WbzeaqveN2491h0DwP18v/Q B9N2fkniqMcs/g2hcAr8w59yXQVYfTn/K7M/X2w582 kmgmhe309mjtgZu0//pc+G7rA/s0tL/R/m3ITM43Ry23pifHOzDxmgi+pCf/KttcrR/rq+4WkQS2zCo/ qvLTPiXzb3+rzu3v/ef1NVG/6qr80ae0hpU+Jw9x0zzPls9ymGj3Vtk88XIj1c6Kt/gq/5Y47flwcu82 67k+B18CahR/+Orc/1C/+Orcf0+/+OrVv/zJy//0i6 /w90hrecu/ZLfmtzvwlZd+e34L+9ewnq3/t78sqvEdNig6x7fgO4jjlbrO68U/sqz/6+/ZtBmk2zh3aG DMEJgwekEbd1lcFUt25qpGIwh0OuP/F1/K4MgFQmT18bNGH/fFxVczx/biq5f/6+97/jL8ZzhoJ5/Na+ Ttqd+d3KgqH9S+aCAkPM1gF/65AWoAp6C+Ak019Hfr 7239EjpM5n5HP1+96rQ+sDv2r+M+5v3d3RXtaxjZ/HuK6CVsH6b355y96x+Z18330O/Vqdd6v49vEE+t /+lf2oBiOK5Hrwl5R5fltu9dFS6jJ5sbo9s+09t75rkjI7N+xncbb/hxtHNQ/6B+2z295Gm64eraZ4Gu tJeUy918fb0yS+tTy0KTHN3JF+V3E19V/kL7uI/CUH /is1OqsQvwwD/o/wWPtk/xCLTf+YcRNo6jlbZ5Fnal2/eMxpNndH/PaPvfA/7VAf/qAF+l7hcDQ5s0cH 86o/+HrfME17giDT3Pe3j1ki9x+D9uFs4sd1ic8t/gSO/fk/eq1xT3wk21lf/oVR8M8u32xfV/7a2O9P ddk48zeU7o+0KV1wKh43Rc3/Yhhinx1CX3o6J7gG7z PjmMEr5go4yuaX+cmS+of8+olNCijEQ68cgb4i/+lui09ruNA48oi19PYfU+7W+1efsr+fyRv1p4GI/t JZPOwHej+qUT44nukf7Du0p+bHvYk/wx3zjLl1c5hYUeDc4thU28YEJacQF9XuwYW/G87tyx2946YB9E uQa+VyCe2bomP/t//yys59X/+2dh/u7m83Uf6Pwfk3 5W48kD/tVZC+3c0DufWPo/mdrF8bt+96w+t58ky2PM/K57q5MWt7O91sle8Nx5vpl3j3zHB5tHXefYJp CvjqG/hv0L/wwH+PrTc8Rfg39Oi6auszzdzTDJ09hSM63xObHDFJ+Wm8G5dn+V7e++f0/sg2uAvh9sbq Mn8vv+Pcm/yr2Q/hlyL6R/htyzG/t3b+Rj/ya+es/I //C87xRb2LNru75u6K1efantEE28ASvPT/hnON7+J07shtFu6BloW/rtB/LBU/MEiUv0xjNQ0mKdG8lW T8kHM7/lgyflgznXF1+lvsG5+Crtzc/FV57ze/FV/guci6/y3+PyyBARo9z//fy9mzlp1LSRXmt25KXC /+sl9g801Z5/p/k37pBoCNv/hSDG1nZDGqb23EinWf 8PntP/g+n5z3YKiJ252wUyT7v/0fycE/2/o1I9PK9axbEtNsuT2byeT06C8MN2h/1Ey/dPONrp//0DfH SM5aC1Gwu1/6ms0yxU3xdioA2T/UtFflxjmQ33/yqkFxvc89KU6gdYABT6+Anop4lMfN4X0WeW+CogH4 zCV/nc51WM/l+Ii6/fjLpy8vfe3YIWVwemtA///ZCJ /LZnD+n//QC+XuQehV0bE+CkwZ8YYN8rNwC+c0IO6h/kNu39yNwuokblEQ76FiA3H0Qxos5a/U4XjLI3 bp/Pof2/ENr/h9I8ip6G7hNAv/t2LIl4LOls+dnSfcJ3ENwXw4c+JsBv3knW58d78g94RQrWlgFbN1hK Dc11SfoS8w7M+Kqe+/6F3ImWpHV5gI1367xa/Y189H e9e8YPfi1otp+gjoh1L5a1bqWOf4sS+IsHr6PSt8j+lWZ9/e60UD5MdSv6B6VnbM6Q/Ur+MzM41HCD6F lop+0NQbnusYMcMIi9n/ZRvv3Dx1W/rnw81xQ5/6SjoEIhVD04ywdzgal6FX0896dp/jU6gzW47YqW86 zv4bExe354FovO0RpHg0x70c+L9H+J084St4v7/0Ls /l+B7jb7dlCbMQev3/0wqQSXwOW44fM8oLX+QnQo2NyCai5Lex7+Clarke+u4J9EBlkfhq7+38wHPsX/KuA m3FmtPmx4khcGM+9/W+Y18qRgLSko+H92tnCswf/J7z5G+Eb+gpP5U7qCX9K6P/CA/K5qNqBpdnM/q8C 2pM6lTxI6jM3jC/PRH7Lj+K0/pSYGutPJxF5IAycS/ cv+QfeOTpkecCz6YzsIEde/6UDqg9R7A6QruufquHH+YUXEtsKWuB3MXHwInH/eq7DLchfY5dw/ZwAvo owolNCwe6OuB8V0LbH+ZqeOb6cbdcJck1BPNcY0Uv9J0Pe2nsmPYe5W6Hi1GpFNscMZbsyp1CsusTq3X dYfd0MphIBMhsyXb05g3PDc5Mgw8Su6H3JvnXEsJRK 3gY4W3+JNv3+AvcTzDyYxqe8LkTfV6Q8Wzl9p3FwHJtbd3SzlkrlDPNdQGdDf61T6joabIij/SXg/G0o 9wWbUbzUmJEOP9jlTKdBGe5J6K7syuJ/CRpDbQFiD1KjK2r7QDSoYEFFdEYzIyUrMFzTmML5IbsTZIUm 56ikJ5G/fz9Fp56A/P4pC5E8KhlU8tKKl054BjkKIQ sEW3SjhXL6MY2A2w8P8FiG1JgyUEkfP4hs0eLj+uFvdseKkbfvOpihR4pjfjMxg/DGO+Sx69xJ7MfA20 UIBcUBY88DqWP/BIzunpSKyif5Noqo00SK/JGjjSnhePH1WGweherVrL0Q91G7BeHaKC4EkF81RVtpYo rw7uqBDRjv91FnYhszBaj7u4E6DnFzShu9Mgm1Y+Ei 4pedEPxtxx6ChcHAsbrN5ew86vvilG7GXdyUnAxpY+CtemocA7VwGOdpGVyri4oenwz9LnaG7nC9WSmQ /Z4O3/kHd5W8NgqMsV/fPnzsd1Jzc/80ez8u1P6KoBtuj6qm9pCTk+ShTJNb8NV0FgeidgUSWR4Vs0dt pT1gM4rP4x1H41OtHH0Q4K4bE3FIe6aFmsN+CVAQyp V8LM2JdFgIN8Mc0KFiF7P//EQxoNWXyIvBrWa6ZOU/EBLH7ZkKACi9Vha1Hg/reGDvTzxbJtjX9FnD7w 3PauxFOtsF7H9EYNl+js2uI020J0lyCPk6ggaageDfCmiFKtaPnw5sreJUwtJpaVd9p1mAaTzMyzGBnU 8EGvwiEIGKECeWk/vzSAfwExB0RKoOAWxdIgAZKnkK JGmp2Am3t0y47Drcm0Lq58C1PwUK0aL+tGMcqWXBzwcMS2EegUbAc/WiXAdq/S3tfvFx/77jLHFSfVgC wVauTTIWM8TdLZSKnIkRQqvfpFRd/2IQMFDB/GklKfp3D+t4t5MMbht8BYv8w9+tGb+zWcIxmFwHxIky vWuw2FmI7+RuUAt2EoFzSd2R0rXT4MaLxvF5CjS/4j UsfofnAXFi+bh/70OunYsxVHPgvaPShEX3ak9cQ+ttIZRB+rovn/dc3B5zfhVDfC/68ndfDRjXATxaSL t7lmOIEUc24VN0ew7FBfBsx9Y+2285A9Dcc1AuEJjH1Y5WSFhu9/cwjYUCpC6siurlpCDGA9zYL/hfIo 3kdyXYGnBi+sH/EpGTXVwtNDL4MQ3xY/ivNfwvlDv8 V+KNxdIh/vfRw/5NTpnxqkE5r8V1Qrm4EsCfwGVWquC+e2xyQU4ab3P7dKoC8J/x+qhrWg2CmAebXl+V gZ16v5OeiIEo+A8/+eUo/0np3Hyr4rraB/9hmfvd7N2/leCfSWBPIOUw/2MEbeaIDOsBKD8nWH5rzc0z zhpNCj6ru+IsS3oOmXu9V4F1K8Ygp/FmUXBxotcYXJ ihGgKIQ3pztZnG/gdEX57B1RoBbnV5lD98uXW3HDmq3zmlJwecV/61XUCmCPZxv9Wo/WENjfQqk7sgRl 2nlMSkhwmmKr76YRy66ET/POq/vMDE19yMk32yepm17S/n/SmZk4u2zeiDI4ZQ5b/+e6cneZhwUvmoxQ sBKd/8P2UYnzVRHsuOX9S+7PMVXKkbq2SrwXs0G3P1 hMGgVxTiSO7ibxmu6lT3TR6pl1Q4xkb+0a5sZD0lG7yOzXw/ugeBVqr5rMyR2yxj3cUaSlU5+ZJO91/Q XNayho9BzAu8flx8/2LcdHAeuR9iCxjODtSUkZ+oME8Q/Ud8I+LE54G/SjgGxInlhP+8BEvaDFTKD/+r ckI6uwZ/JYJUI/ZPOuMvSKCMdlTu+EsM7L1dwQ9pDO FuLJ/6m4OELEZ70v8yCPO88g+DlGP+62SZ0mcN1P5CI/oOtzhvYS5sundyH+2ZlQo0g0oTPndt2BX9re Fzm7YhuozoEZg0z4UjAsIPY/1ftcXvACOlr/46r9NZ/6tA1ooJ1ba/Uvf9RCnyvBrFx2OztxO7LBVFt2 szup32G9hA4j3/z6nQ61WU7tKx5CJtTsMN1gMYC+Nm cHbAyR4woFzfdvHAa1ETDiC8+B3P5BTyXewbxhJgqO5MURDDseEVSxwjkoSkthe/M037O3zMJUmIG/8X 2Qz/GWRUsl0x7CmrtuApFb88Ozx//e7SNo5TFyCP9/1uCmeytauLmQuGzgpC8PIZk0Bm21ki/r8G8M+k iScw5B26iLzoa5ZQ/myOquRDny1vDD8iTMAI/0fBYX 0LBcKxXDqt3PNgMYwDjOWJ8Dvr0CLi7hEMySLwKcIMIbEpJO3qF0fxXgv+w2fOuozhki4/11e3FJgb/M OQVBXSVcY1B3ADXGSGjPYC1HItVVrFahIg4JKUZeezAM0XfP1UCBkYjsSMsjEePwyW2sX4qTmD9MIidY 82V4CZlpNLspJuUcO0kO8dGMtxUAVk2wfLQ2xkLjcE lVbAnX3rHnPkolTGqwnRRrpcilCP/enYHjGILHTMeIXyD5SqEVUDYMFXhaDA87tsG6kXP9i1fDKKVoMK 3O6MXKc54BGrBWwNHQ5iQHuoBO3YFlSGTabRkFl3u5LCIx4hu+/gPKjYAY+YJeiZpQ3DCnjsyHni3gi9 aNNG3tTZcRGcqKCnFKGsn9vNLuHhTSEomnQB9X+dLF pQDzM9NHOq82l+ZSyZ2hzseKPzDpXHXqNBU1EEuyLI2lcJdJ9WvwWcnPZ9RHoXxhDDU8RqfZmHeLEOSw fCXFiJMG+Vii/auBBHJG7T4qVyTcTCa2GPT8R4PapmEFLSesBJGhdSADlgH26hLJUaU+aaoHpNvgMeSk QxwQSiK9sdVLWCKGUfKOrpObVOgEOOLMvTC/gOYu9V 7ZP8oZ2WS1epLDC+y9HSntxZnUYJOFuIwhtDYHmBvOka9Fc3qhHZsYDggNgqmnBOfJOduHXtvtO24W3P TiFuZMEyKvE465rarKifVUJxjZXtlykL+fCk86rlyJorVVyw+aCGnQGjxRbRLDLL8gFEJnpMZ7grQAGP wDBIhULvhA5376XmJYW64KWC6OskN51/W4SnrMhZKR 1WzfUvlnJi9jhR6H9VyJUk7wrrgPYMSAG08YD0NysuQnV8hX4QgSqDyzzFjeAkYunZdkmmL5yzU38qHT u2ZXziIDx4Xxx/AAG0TEByry9VMZlB6tG4liAbjREur13UWqP78y1NaeVtF/CAVt4XKUquAFD7nQzq5F fbpLB9Z9NtKLbOyq1ZznNYbT2wVw2PkGCZ6VZTrUIA uJwXV6S7eAFGiKW8rJBwGJYZBbQgJwzOKl9VCWbaanGUUwXY7HHO8vPandEI0yKA25ux0A7AOmpV2f/F X7wCVV8oTRLrRd53SWlEIG2TmXnsxarkVFdHMoJpBvzkVyBR4SSjbDrL44vpyMKFv/BCV1/+Nj1WMeVK zYYtUMQmnK7TBhDS1SfE2kg8wdBaiXp0vzWGunvTcR x0GPFKHB+0koEQvKi+IVIDXg5HgRHvBiCa9xidva3U+YmMhyALDk+tQdRI8xfoKG+1RrcZFGHu+uj1ml AjenHifFT/byQn5b3K8Nk3avY/j0Ea3Qmb99z2wxiFvNoxUtZKY6GnT1w5ULAZodYWioZHR89wRxNKDc hUNLzb3HcJ2u2cJ3rqY97nOg/jdtc3miXZ3Os+606W M3Vn1jagLkf6LE6BqAZpJTdZTKvk/Po9p+yy3eDFIucbMGG2PBUC52XoWqJO8kgDxQas6DnfdPDmx4op v+YKLes0AjABBK9QqJl0CImth/ELHjzP9xUZFSNpUhc3M5GEuvzB0HhE+3XOZqk8LveKd0JHr7QG7KpR dIeW5tzeP2vDO+ymnG1qyBI4zgPStbkOkHDOpodST7 7jHsZB6kjfAp3XPBIyEBL9XwSLrUJ2hDSTohps7euwLSXvTLb4NaGCoeGlmp2TvpLIJiDGrDKiPxo1Qn D54QwVuP2WtJNknRyv5xDbhXHwrS0Z37ROsZUNcT2yfkFAdntIeSxGXJ8Riu3EzEMjzCCfB8gfNGxCcz nqFaI7X2go1wXbe56jIHaWpZX8gIFBWeR05nvfZV6u od+9SK3s6uDOSiwZC8f0kqaC/JvVmvqFM3PnV2IL1D69EqDgmqzRroO0D2L+JIgTNbvHngZ2NG3OlWK6 YNQBYVj7NzTrB3ycC79BQtvNSntXoKCNTFsDKIy0cPtPzV8AAuittp3SSN2BXvWtB9YiNlAZYaT30vLX nihT6wB8eGK1t+FoQWMLqANHjEaZTmkDT+yD1LrZP4 mlJH0EAZ2UcObYa3RUro+vUW9CoLQJBKvEJtqVXXFySmIAL5QfYcMBKEilbwbYqyNrOLpVATYenIr31u ebY3AcdpThtOdMqD8HcsyMDv4rNl8CfMM5K83zXtZEA8h4vUwEl6tdcCNkTmeUto+j2l7spWOzrelTpV NNl5AiLWw1mqhS9y6vQPhx2YgWvb+03b5wiY8NWUxV MGMZ+R9kBWwkC+cQ8853lbYx1xbR1Ed9pZA6nQUZhFLxQk3aproCFn2jhSetcJOMcvLeTn/yHkvlfqJz Wl2SIrFPhxrggoQih2ySZcn0eK924Uzc6fTe8lL3EEbCBE42hmUyhS8LTw+OVmP/kTJ1apYyacpD6+xt k9/ZlLiUcUdipd/U5L9Ndh4bEQAadtby/IPcuc5/0D PoM4C4IFo8ksi6cvr0Jyrp5c7Dsmck56g26rZREN5ivyuMRrZKzQkHBGosRI+1doTHBfIVa8NpHgDjZo 2R2JkMcUZSApHfFIf04CxADPeMTZ2M2ueW8gdAzjSc5HRPTi17Zm+2Hi9FrfjDLppAWf1eB/pxOu4mVB eIHJw/NX2ZU8ysrJZtQNOkRBExPLV4JD7P1HXBXGAh RbLLgVKJvl5YWlwObXMtFApDDFBQP9SgO/iyj0LQhP+i8s5AnQcJTt29y3KBKwbG/LptO3arfgimYrS8 VEE+TbVnloG/iOG5WSzds7EHy8JbT6JP23f2j9o14zIhK7k4UurRP9RaJ12WuBsBajhBaQHdyyJdo2kv M9eCagCaspFPg2S82z0gBYxMlRQ0UGPUfCTdCeMbDk aADPNOC0C+UQKogzFYD/zVstzJ4hG/kT9aI9Ne38sSey45IwZKd49uquMa1KXCxLp9r7stLQ8hi4gL0t korcMWm/i3HlytvwQ7T+GpgpTfV6LjBUuQlInkYwk5SE1VDwsxW72ZjUPZtToQkNyaolPTASf20eorCg iG7FPFtt770ruy2eivqideFPpE2mGo2hKmSJPA42/0 ApbeQFWsWzeOcLO4kCEMAkeJ9umy9gpaVEKUYTcwCwDKjeI8bqSAN+ZxkH8oSWMyGL24xOjkrhjbSjKb IIVmFIILySTWW9ZtASMG2Xs+zBkMZGsg8Q6nC+rA/z8IydEOAuCXZct7l8WWNWv9UTCJU9D6IvwuBbuM /VOhq26fJc4/JITsHylDXCkxZRgD1LentNnZPcCQFU lJPXdZXrnvziJ3y3dujYsyM0P5VbwlsFtMOtyBunsFPO4fOpYLzAXEvStSa4AJKbBF/NWBpq3ozPHgRk 2knypc9STWJ812UCeLfSggUwhacrlB+76H46lQyBiR461AmCeHCRcFCQAVgroZ7HrdMThA666JE0PFaR N90P0T9YaQFM2hv4IGtULId5xddqerrrWj9WryFVdS M9gxpdiJNTqdC+rOYaNqGPYsGXEn4VPvAwJcJ9HRdNMY9MqQs8vZ72sf8ff75bPE5sWjjA2jSN+U6Myh DgC+SS1rR6Z+iMfGfmLjfqLoFyrD/cUOdcfxri51odMTz6ybSNHME6GDyNOZoFH4uPF/USSMKNPZAtiJ sXVr236xtDsp4b8lUCXuzb0TGtWHgVdATkbSIXbULX v9CnfbNSmpAxLIa6FiNHgfFMcnLozZuwMx2EnlEWtXefUFhjkqWvZyoePQAXBag+PnXErXPsPlWF4dGv yOVy4rlwVDZizQwcksqx3C6fJAtUMmGKghRhyr9CBEO5fjZBbBbXvDpFJT8T41rV+T0Bn+cGJnVCWgA9 BfppDYLCfu8L4mqgCGNmoFMcOc7sqfzZ1fclah/879 iH23WMI8fbSWQeJ7ljWVmxF3tLC/sXM/OIcxPlLNHeOw8pPF8GEOOyCB+SRQDd4Q2LrJ7zj1Gyc21LOh mDGXAAlSu4FRiXaZfUZKJsjz47cFkYNjtbnWRNZofMITcmwQQ2ZG+s5CQ7iV9ErDVT2qsuO+YFgXOu+x uZeDsvqGXKFaFx9V2P4dZbKsNCjzyrd01MDv1hZPna TO+64tz6hX+moHB2GDgKzQVowAyO5AQ5d81LaWSTzV0BjZGk9OYonRxutIyB9eebXrx+6AnSWncRzSqI VFTK63tChzTitZmAOCJjt3dBq7suMzrELOzwb7Hy79V7ckJhqAHac2Kf4AJhE/dF1HK66daanBcBGMBV PBn63xSWi0Uy8BuQeCUNYBtSw2uPTFCmSZK/youth accommodation 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+87 [file] Kh/psych specialist/zy+iciuY1Cfjl48S1D2ky7mFsTFBqhih73/u37Hz+Xv8f8+0y+izjy/nj39R/v4oZub57FP2W5 [file] ayBTZXJpZXMpIAogICAgICAgICAgICAvUHJvZHVjZX RoNE3HZ3ApXFPhLJYXOWE3v3TnZHIgdiowtifvVi7xleVkJxx+IbxuZAXgw9XrVVgaV5X3hHGnZ0PrV2 QbQE8BcYEbBCxkLEFkAAAcYrSuBOFOVY0dL2JzmC18VGN+RtIuKM9oeto6loPgOkPiIGFtWGIiSZKoTS zhCFSpXQYwDVHsOQH0ADM3YTCaWkVpDATwDUg1Xxuo JOSrOOWcpnEBLTPeIHNiAMLjOERkWPGcXTUyWZepTQEfVLM5BsMuHKHeBXHbDH2jPgXgERTsSPWwVGQp WdL4DsKqJgPMIVZhSOPySVAvAbQaZVRxMNYmIOutFHFjUUOoIXz7YSUvDRGjON3dElYqYQRjWADyINAo IIOrAQOgrlPSFEFvEXKpNBF1DNIcREFpEDNaRRbqWA JtAXKmUYL1YVGhUDGtYX4jNqZbWYSmCOX0HtPyVUUoQURmmsAGFGFvVWOsPLW0WKKuLDJoXJGaAHxcHN RlXUNeVcU2MODtSKJoWB5dKkAgKWYxQWJ2HJHfELGtCNUqboDUGSAkYWFzPVk0BsVaCZXpUFDzQKomYU OlMMIpZQggINKpBZAzGM3qZzXqXGBtGREcKFBiHFYg OMWymtTAVJJtKOGeEIG1AbTyGBBfOOOxLXbtPKNmYBYvYBG2URHsDKGkNF9pQvHbROXrTBW5LsYjWZJh LZDeruUQDAShIKTxCXGeFDZaHAKcNVQaBZqxRQDmCOTdDmT0BVGwVCKsRD3uEjSlAHQmDSZ3BQZjHTUo HBSnqxIQUSPmNDYwIPV9AVJvHECrVUCxZPjgRCTcBT U8SEv4PDRlUZYnIQ1uSiIcSLXcJEO4NWiqORDhNJXqdcWBVJAaSPUxJfBuZWUuNBTvEWQrWCueDESoGL IvQPRbNXP2BOT5PMDhCdQjRCztXNABQMpVK9LyvhAvVpvZH3qwBn3gJkDjXSWRV8Voh9TaROTpNNJASs 4+EzE6SMC0aRHtThzkDXt7OFLSSLNPN1X= ID Date Data Source [id number] 12/14/2020 07:39:20 AM EDT [facility] Name Value Range Interpretation Code Description Data Morena rce(s) Supporting Document(s) EKG [facility] MYATLr8yTjDAIaCtz3KfQgIpQLLbRW5feig2C8D4vBWrW5NscVZvd2xvB4NkF6IyNFVdGYBKOW4RhUQn jb2 [file] Ox2zFe3ZTf9sEI4pLQgwnhs/RW4OLxLf5M7w4KL/FTegrJ8mh0mLG6AAh5RhEEW4O+HmR6QHykdw+Riana 22uz9H7rkkmgAykNlKfRgAb7Ua7cd0PDsRyStlEbvGo7ibWd5MK7wuiSfSmsVa6YlX48rQ+tyr0TXXd8 MdHNDSfjozWSomApkZ803w1zL0Yab7Ws2nv1x5Sp+4 pPX0YRD1FCiU7qqrtW5K5g0qAc8QS3iJRbaxMJvaBwiR5ndkdE4Z2DVBUvtzL8gnyUwptjUMnXuzE12D UkjtTL0pwYzSeONP6B1huiOjr6jSxmDrHq0YOuLhgppNHBvwyN1ZKhPEsZA3Z3RMPremJUi50Jlf9OzQ eb0fZCx8tXrBlkfhlBUcMPzJ6z9meWYlxuAlkLiIDg ivenbDz0TNq3oyMmdVz1yAGHl+6FaTXQsm9el+gRH4dKV3noXdbbiXFx+GDoN3dWL1b+LyhthwissbYt M5Lm+HLuL6qIMDZcWfGULJUc2bnHAGpJdG2cfkrGedEdf/GYdEelCGFgRlT+eiXV5NPDV9yKl40wVNP2 n4qehlGZeKF884gYqHleTxlSym2V+hbpD1WGaDlMcT C6mXotPu+3JmL5rdVyqP76cs5cBAV0qLU9/oFwC0xfAz7MPZVZRoKC7Tlf1uH1BB4gEyawgByBKopJg3 VGG2lD2v3TRxsh1zpsA+atS5vhHx5nTVdftBX3VUOn4dkxw9hnonstbn7zymUnb23nQRvcfg4spMCV/R 3F3jwE0zpRar5xK2axX5xNwLlVjhCSdYFt1j8oZouH eAY024gVt2KyMuyKaYO2FOc1IalHSJEPjLwecmUU/a4jN3eVGBZ0qrrmi0YZXMM9cFyUtknODlJoHqTs 5E4Z4u7cnd1x7Gp0lKdiDBoYjpYl3JjZ0P/C+4u5jRc08luS84T+vC6gVXZEbNemzrSdcPGpGgGH0pFY 0+yZ2jkSagsrehslBw1GsbwhhzdqdboOnpCM3x2cHT r5s9DCcI0N0nrkILNbt7+/I3Xkh6E4f3OhmEkxtzF3l12A5yqzflHFrlQUyuGC96kMvbQs8laUkjoBav wejKl53AZP6yOH0Xh+JeA5Wr1GH3s3nE6aradkdU7M6M65rXjafz0pkgjXsptd9tpEWPuCsI865h34yz 7qYXsxoCJfK3ZA+CayfbsjNWFw8vpScRedQ+uLzhnf db6i0CTXX/Ix0aUbKt2hLldmtg7iH69WhKkTcbbeUyTBHaUCsP0z1LwupE9W6qWgSmcvqznwdJcRZmiX J4N+u5PupogsRnz+YqV1iyxJV3yzrj9HGFkyakY0A6IysHcj6KMraK8jn6zMBDbv/PgTWmRoT5ZpqkwE Jk2Kt6Ueu+OvBmOckCVx2tXmqjQJtUMxbGJUqGN4/f 04Bsc9N96nCt2O6lflxyyi4R+yvCD6sYj6YghXin5ZzX/Manuel/rDg9qzaJbzK9S3IwZ4fKqp4Ybloys2d gnsoSzxLffHUl+HrK0nnIz+UmU9nXx2G/Yp02WNmmrj+T5fF7+uttg3beJk0NKBb3LA0nJv5AdNjy9nv xU3JVJgzvq+DiJriGbOHWb9R3Z6s8fVlLgVxsYtPw8 RpFuSwJ4Md6edbJsTc7zD5N69vcndUywdaAzCrKoNdnBm7cq6QLJ7HDquBiUWEV3FjHS3AyV8p5rD8tv 0P+2Ac8pNlqIdx3tYhkcz1uDC+FxqjPqGrupJui8rlqZybadI4Dmfz0UoTRqnG9NB2bPr8L9klnNvUzE 7kB8N9C6BHm/qTdZwvRFz9fcW2ZhV4sYcXItuGNBjs FwdixnO42n4+3lhQlnim2bqGN8bgEmnaZH0h5N+vJo17dLSvzeWwl0G6yzzmE9oeejOIB03826ht1Ntt xBNIboJs0P78qaZBgn6+ZhYG2R7QhXIrLq12AixmT2r6dZ3s8ZkhJWR3OuBvc0nDr9LRG5FB6eVldDqr 8D5SigPz1nk+qDsPGpTak7/5tjrJUWZ1ql02PBkS7g XqpdYptlD7rBVpiuWQUyUsvytQVeHmHeQCw11jls3L7myoTA8LO41vMOctJSjOgK1sV762bAnV1wDYNk G/PQz4UJ7sX3K2B8XEH6sIe8U286uY2c3Pn7mdpXDOxWfYozdK9uK53DxdxxLMAOHrmDW9MX/UkeaXc4 Q8AFh9ioCbxm6V4qrfmY21aPQez8jmu3LPP1K0y1nX 6/XLOLq8ggfW4CHsNUz+KEwzIZ1jqADk30/lTBsRQNj0YXxHsI7quK251yeIO0tpfqnwgb/TkhwO+Mbl EdfesPbEUHcrpRab8iY3cFx+EaA2bk38byVWb0RVD796k0Pll8EcX15w2voBFQy3Do0EVA4SiC2cyBfu xGtQI/AJK1sd1zbjz2w/UypA8qzzPE8iC9t/5/KGPc P+GBx58Bk185x59wf06RXVg8hmvbh+V5WyfG76Dmb/tGAkV2UqX9LxTSa4nXc/G5bFSqqaRBK88Zfb+p bR5Q2f+LtMbMa5Zqzfqsn3Stf90JYQc9TqW409iY2PeMNd4PRk2eV3s/k8jaza5tHG2R+6vOFErFthHF MPA5jNgr3xRMMDUwXRQ6n4bL8bXsSulFpa9oSyLbw2 8nB2uXzHaqvd9lqiQ0EHVfC2Qn5hBWUtVsv8XFnCKHoC4w8g0Y7yAWDXLho5iAD7X5evsseYdLPhhA03 KiaDLyLwGSPJPGfaEGaxlAWKaibgwPnEqZjFv2DQ8TfKe9PLQqsQE6lu4J2IVut8nWXziWJCrpG7c6V/ a7DdehbeOfgR5xn5+1Xqu2pljKd43afZ2c0cxyTOfn KxUhoE690Xqd0Lt8+xctaZSibFDgQsy5zhygy/4Q4nkzw2HX/+0rmvpssbLi/5i/Eu086h6zySE5oV+7 O7sYBearRR8H+PTvJrDl6FWxMgGuV++2LYYbv5iVUvrE0r+N/X9B5edTueoexmcEvZfSGV65h7JdE4e/ b9XX8o/terb2Qp8hPu3f7pm/IhfYTa8011TR8e/as7 V8iIpq7/JvmpdjFcm7BT8CZx+i543vSa5Q+1uEbho/8n0tbEJ5GGnjIOB8Kphwsc0I5f83+feP78/llR 9/YX15sVyQ5hUM0ZeE2+3xbZk45KbWD/4G5Rb3njt/o2/oQ563v/f//qe/z69rfgJ3y63InDdlij0q0v B07J5LVTj+hGiu/bPu/i+64/Snuh8pt4+573md6/up Zh+b69Y9/KcOz8/aLZR4r/7h1KaTX1s40sRU9Bq87/Ued+cmEhK1G2w+b3vX+/YT6/x/0Lu/x2H6Ocbs cqhk/9ur0B+n6/OA2Wynvcs+hmkb0Ez+fKy654Rv5c95XBp1+n9Pp+wdp32yzX5eBpja83gt3m4egjck nn7yj/OPvKtxh7i8bywC+iDG6GQuTgzO5qGoJm7amp grwuHk76ZZP3VMb6Ayj0S42IYYlf1qEQNViQk10ogCpsmu9gOkJ7XIjsQ5FBgWd7Rtp8u/3CJTZHvjhk EalnmlVR19He88tWHMsUAzEZvWCEpYd9JmZSNkQ4KKoIazJ8HqIKEMYJREVXpOHz6ygwSZDrXBI43vgV ccSvtvEtcLnlb0LTCxy16jxCG+T4+4PjVLC/N17Otk UGST6iC6pHpFbsE9aDq8xmzYqqaf3WJny9mxRziHcDqHPQZosreAHbx6uugYVBhuYKOjmoNJxeot8hmx 3JJvRu2you8dngfwj4nx41oC0HDdNKyZvdluCE7y/q6yrTmLytFIV8IYTHt66XIjKRtEh/3+mFZZDmr9 9WXEmYMxiiYChu5YbnUkqbNa/h+oWzo/Jzxv17O5u/ 4fqFixwO+s7HPR9U3vIuoZLGzbDw+oU/M1IwI1ZDHDoER57HfspaimGg0n9h9Lu36oCGwGc92IOMAdAI fDT61EvvlyKwjsXhaPLOFHxSZmeaOIQbVSyn+oW/p3ZWoNlY5/mUdPM4pxMVIj4hMYQM8ceZxBB6OUSj yA0ArBAwX0O/euxHAHfr9BeDVdV9HGgtkh7Rzz16yl EDfl6/1EdZpTc8GzmIEVx5J3l8wcUYrb5z1PF56YIW0iz17OxQ2fh2/3n63/zg/X2+WOhMes4zvnUHcK t/ovjGi45h/qb/t+/6/mYE9/+/L2Gcr/L3gcDhANuLAhy+/0qT7xoqdv8ocab1cVdXG5fb/n3+f/g+yq 7+v+j/m/5/fcotf5Q4113Y/5gua2f9xT2+Psru/k3/ b9/1Pcqu/t8pfaf/D/r/oP9P+g749NtT+dPzzkX/P7ATwo1Af9//48pJflL81sgz1VJ/z+c96Y+yA29H 2aGso+gtEA3dBxYt9fTiiv+yu3/brdtRdvX/Mwtn4g6vJ9++fpSdG/7+/T97+hM7jz0kXDfCecMxi/q/ 0//R35ekpkM7ou7+/fI/mh41yXPD/8/zDvx9/p9pzv MO/G3v70n/n5T+PC/yPM+LPBelp+ddm9Jv+r/T/91tYfdu0a/39/6/z/RzdBlM85lic//pFDZ6cg/0// B1DPRx47fw/y2VLjSZm+fNz+M2+w981aup8urd5UJ75TXh9+39HfT/cVKx22p16/n/ThA7tE8D+7kM4a fp2K96Rx+PN5/0/6caNeTjlD78GfDiGqmJ0N8P3ymf el4P+k90idF33Qv56pgHIj/Lmw/+/j6+B7JOzv3VvONgo45/5gC3BkL+Doq5nAhqjDG+8ArbGY3G/9+U j3/P1+n/8fiJMxPFif/fv41lcdplShcxkyEpbiyDrdV/x63/rmDJ1V8RAb8gv/I3Sm/2/l6U/kfh7mDt Ppvy94/+pvoE5R+g2EI78Vv5c34GzUjZxJBlgqW0Ta /o/4P+P1+3gv4kkrji84aXQ8r/qNxN+e/HQ3PKx+n/QfWP9//+vfz79+rU15oZxmR/1r26rh9+6P/j1b TAG MACHINE OPERATOR+v/rv+fagvc3/Z/sv4ybChiz6jIe/0750/MefXX/cySn56lL1/Xfc1XB+/vVZ/DZ5ubOh9YdpoZ3So X4BWzG88i95/vv8E0BCxAPlck7qvzsKvQxK3R/49Vz Uv+d30s/4kb37ilj1W4dfa/5evpLm0dZ1Qwt/d73cn7tpe0k/ozyt8gyMuUUxmhy6ihRi7H+2lJgWn9C 6ouim3rD/j04lqd2OohRg9T1I0+Lwv6zHXMgyUjci0ouWuao1R+oPvt+yxM8Ni69+y2WvX4elY3lNaT+ cyvywawk1TltHb+pr/B3f/mnvkI+O30X8nxF9e/zzv z/fPVJfVV/0//M816G9f23HhCHfvbHdECme5T+9Jrkvfj4MRI+CuirTN8/+vvVM/VVlrvp/aa+Qvqnrw L6Cn9T/wGeS62vS/prsqrTM4kjH2R6ssCHMtF0YS3GJ4S2p/bd7U326v58nv1l/9RX+P+g/8+P/n48pL 7C/43qsyifdXV++JsvhNPzutP/hpUTdy4cz5ji7o+p r/D/N167Qhwr//fHW+zkyUj2v5zTim3Jd4S/c36Ev+01nD92olYK9c8tRZ0pTFQfBM43z/KqB6bFMDo3 Koe0VBmehoKSbFlpuAm8DGtJ/CjZvE+QVOTBjeJzQfuAeAM1m6OKaVpfkM/Oa0pobTE33sh+E0MNzuWS nkB8coGwKCvpORFLD6KofV9RfbvHBIVOtEZDFX//ct xuf5810i+T51oj0T+z6RhhU5G7IYrQct/eQQmYZjHS5IB+5gX4Hu3YmrrG/Skjwz/myN9nYAw8++sRdf rfyDBGTsxrvMP+g5fJISAyYg7Eb9muwYIiMBOb/S5SVKftXSGr87GvqmLCEchHIAA2dy0SufASah1/land [file] ID Date Data Source [id number] 12/14/2020 01:38:40 PM EDT [facility] Name Value Range Interpretation Code Description Data Morena rce(s) Supporting Document(s) PT 16.5 s (9.2-11.9) [facility] [place] [facility] INR 1.61 [facility] SUGGESTED THERAPEUTIC RANGES USING INR F ORSTABILIZED ANTICOAGULATED PATIENTS:STANDARD DOSE THERAPY INR 2.0-3.0 DVT, PE, PREVENT DVT OR EMBOLISMHIGH DOSE THERAPY INR 2.5-3.5 PREVENT EMBOLISM FROM MECHANICAL HEART VALVE ID Date Data Source [id number] 12/14/2020 08:06:14 AM EDT [facility] [place] [facility] Name Value Range Interpretation Code Description Data Morena rce(s) Supporting Document(s) TROPONIN I 6.84 ng/mL (<0.05) [facility] Less than 0.05: Myocardial injury unlike lyGreater than or equal to 0.05: Highly suggestive of myocardial injuryCorrelation with rise and/or fall ofserial troponins, clinical symptomsand ECG changes is necessary.ALERTED CRITICAL RESULT [facility] (07160) ON 04.13 AT 03853 ON 12.14.20 [place] [address]805 [place] [address] ID Date Data Source [id number] 12/14/2020 07:28:10 AM EDT [facility] [place] [facility] Name Value Range Interpretation Code Description Data Morena rce(s) Supporting Document(s) SODIUM 136 mmol/L (136-145) [facility] POTASSIUM 4.1 mmol/L (3.6-5.2) [facility] CHLORIDE 98 mmol/L (100-108) L [facility] CO2 24 mmol/L (22-31) [facility] ANION GAP 14 mmol/L (7-16) [facility] UREA NITROGEN 44 mg/dL (7-24) [facility] CREATININE 2.71 mg/dL (0.80-1.30) [facility] BUN/CREAT RATIO 16.2 RATIO (10.0-20.0) [facility] GLUCOSE 107 mg/dL (70-99) H [facility] CALCIUM 8.8 mg/dL (8.4-10.2) [facility] TOTAL PROTEIN 6.6 g/dL (6.4-8.2) [facility] ALBUMIN 3.4 g/dL (3.5-4.6) L [facility] GLOBULIN 3.2 g/dL (2.7-4.3) [facility] ALB/GLOB RATIO 1.1 RATIO [facility] ALKALINE PHOSPHATASE 50 U/L (45-117) [facility] BILIRUBIN,TOTAL 0.7 mg/dL (0.0-1.0) [facility] [place] [facility] PLEASE NOTE:Total bilirubin results may be falselyelevated in patients taking Eltrombopag. AST (SGOT) 3595 U/L (11-39) [facility] ALT (SGPT) 5219 U/L (12-78) H [facility] GFR 24 ml/min/1.73m2 (>59) L [facility] GFR ( AMER) 29 ml/min/1.73m2 (>59) L [facility] GFR INTERPRETATION [facility] --NORMAL KIDNEY FUNCTION OR MILD DISEASE - GFR >OR= 60CHRONIC KIDNEY DISEASE - GFR 15 - 59RENAL FAILURE - GFR <15 Est. GFR calculation based on the MDRDstudy equation, which assumes a steadystate for creatinine. Est. GFR should notbe used for medication dosing. ID Date Data Source [id number] 12/14/2020 06:46:16 AM EDT [facility] [place] [facility] Name Value Range Interpretation Code Description Data Morena rce(s) Supporting Document(s) WBC 15.0 10*3/uL (4.1-11.0) [facility] RBC 4.86 10*6/uL (4.60-6.10) [facility] [place] [facility] HGB 15.7 g/dL (13.5-18.0) [facility] [place] [facility] HCT 45.8 % (41.0-53.0) [facility] MCV 94.2 fL (80.0-95.0) [facility] [place] [facility] MCH 32.4 pg (27.0-32.0) [facility] [place] [facility] MCHC 34.4 g/dL (32.0-36.0) [facility] [place] [facility] RDW 14.5 % (10.5-14.5) [facility] [place] [facility] PLT 100 10*3/uL (150-450) L [facility] [place] [facility] MPV 9.1 fL (7.1-10.7) [facility] [place] [facility] ID Date Data Source [id number] 12/14/2020 06:42:54 AM EDT [facility] Name Value Range Interpretation Code Description Data Morena rce(s) Supporting Document(s) APTT 48.7 s (22.0-34.3) H [facility] [place] [facility] ID Date Data Source [id number] 12/14/2020 04:07:19 AM EDT [facility] [place] [facility] Name Value Range Interpretation Code Description Data Morena rce(s) Supporting Document(s) TROPONIN I 6.30 ng/mL (<0.05) [facility] Less than 0.05: Myocardial injury unlike lyGreater than or equal to 0.05: Highly suggestive of myocardial injuryCorrelation with rise and/or fall ofserial troponins, clinical symptomsand ECG changes is necessary.ALERTED CRITICAL RESULT [facility]([id number]) D3(14325) [place] [address] ON 12/14/20 [place] [address] ID Date Data Source [id number] 12/14/2020 04:04:04 AM EDT [facility] [place] [facility] Name Value Range Interpretation Code Description Data Morena rce(s) Supporting Document(s) SODIUM 137 mmol/L (136-145) [facility] [place] [facility] POTASSIUM 3.9 mmol/L (3.6-5.2) [facility] [place] [facility] CHLORIDE 98 mmol/L (100-108) L [facility] [place] [facility] CO2 25 mmol/L (22-31) [facility] [place] [facility] ANION GAP 14 mmol/L (7-16) [facility] [place] [facility] UREA NITROGEN 40 mg/dL (7-24) H [facility] [place] [facility] CREATININE 2.84 mg/dL (0.80-1.30) H [facility] [place] [facility] BUN/CREAT RATIO 14.1 RATIO (10.0-20.0) [facility] GLUCOSE 134 mg/dL (70-99) H [facility] CALCIUM 9.1 mg/dL (8.4-10.2) [facility] TOTAL PROTEIN 6.7 g/dL (6.4-8.2) [facility] ALBUMIN 3.2 g/dL (3.5-4.6) L [facility] GLOBULIN 3.5 g/dL (2.7-4.3) [facility] ALB/GLOB RATIO 0.9 RATIO [facility] [place] [facility] ALKALINE PHOSPHATASE 48 U/L (45-117) [facility] BILIRUBIN,TOTAL 0.8 mg/dL (0.0-1.0) [facility] [place] [facility] PLEASE NOTE:Total bilirubin results may be falselyelevated in patients taking Eltrombopag. AST (SGOT) 4478 U/L (11-39) H [facility] [place] [facility] ALT (SGPT) 5475 U/L (12-78) H [facility] GFR 23 ml/min/1.73m2 (>59) L [facility] GFR ( AMER) 28 ml/min/1.73m2 (>59) L [facility] GFR INTERPRETATION [facility] --NORMAL KIDNEY FUNCTION OR MILD DISEASE - GFR >OR= 60CHRONIC KIDNEY DISEASE - GFR 15 - 59RENAL FAILURE - GFR <15 Est. GFR calculation based on the MDRDstudy equation, which assumes a steadystate for creatinine. Est. GFR should notbe used for medication dosing. ID Date Data Source [id number] 12/14/2020 03:47:27 AM EDT [facility] [place] [facility] Name Value Range Interpretation Code Description Data Morena rce(s) Supporting Document(s) MAGNESIUM 1.9 mg/dL (1.7-2.4) [facility] ID Date Data Source [id number] 12/14/2020 12:56:44 AM EDT [facility] [place] [facility] Name Value Range Interpretation Code Description Data Morena rce(s) Supporting Document(s) APTT 30.7 s (22.0-34.3) [facility] [place] [facility] ID Date Data Source [id number] 12/13/2020 08:10:12 PM EDT [facility] INFORMATIONPatient MRN Name Date of Age Gend*PT [id number] Dilan Kirk 1960 60 years M IPPT Location Admission Date/Time Visit ID Attending [id number] 12/13/20 1238 --- Crystal Neal MD([id number]) EPI ID CSN Admitting Provider [id number] Crystal Neal MD([id number])Inpatient Consult NoteWillironak KirkMRN: [id number] FOR GI CONSULT: Acute hepatitisHOSPITAL PROBLEM LIST:Principal Problem: Coronary artery disease involving [place] coronary artery of [place] heart withunstable angina pectorisActive Problems: Wide-complex tachycardia [...] to be monitored closely for signs of RESIDENTIAL. Also watch for signs ofbleeding. I expect [...] them due to numbness. [facility] wherehe was found to be in [...] mellitus History of herniated intervertebral disc Hypertension [place] (myocardial infarction) Sinusitis Umbilical herniaPast Surgical History:No [...] rce(s) Supporting Document(s) ID Date Data Source [id number] 12/20/2020 01:40:51 PM EDT [facility] [place] [facility] Name Value Range Interpretation Code Description Data Morena rce(s) Supporting Document(s) PROTEIN,URINE 98 mg/dL [facility] [place] [facility] URINE PROTEIN MAY BE FALSELY ELEVATEDDUR ING TREATMENT WITH AMINOGLYCOSIDESDUE TO METHOD INTERFERENCE. ALBUMIN URINE 36.6 % [facility] [place] [facility] ALPH1 1 URINE 63.4 % [facility] [place] [facility] TOTAL OTHER FRACTIONS ALPHA 2 URINE [facility] [place] [facility] BETA URINE [facility] [place] [facility] GAMMA URINE [facility] [place] [facility] INTERPRETATION: [facility] [place] [facility] Interpret[place] [address] Mixed glomerular and tubular proteinuria. MD Jay 12/16/20 ID Date Data Source [id number] 12/13/2020 11:27:33 PM EDT [facility] [place] [facility] Name Value Range Interpretation Code Description Data Morena rce(s) Supporting Document(s) URINE WBC (0-5) [facility] [place] [facility] URINE RBC (0-2) [facility] [place] [facility] EPITHELIAL CELLS 2+ [HPF] [facility] AMORPHOUS 1+ [HPF] [facility] [place] [facility] HYALINE CASTS [facility] COARSE GRAN CAST [facility] [place] [facility] ID Date Data Source [id number] 12/13/2020 10:28:36 PM EDT [facility] Name Value Range Interpretation Code Description Data Morena rce(s) Supporting Document(s) PROTEIN,URINE 98 mg/dL [facility] [place] [facility] URINE PROTEIN MAY BE FALSELY ELEVATEDDUR ING TREATMENT WITH AMINOGLYCOSIDESDUE TO METHOD INTERFERENCE. CREATININE,URINE 97.80 mg/dL [facility] URINE TP/CR RATIO 1.00 RATIO (0.00-0.20) H [facility] ID Date Data Source [id number] 12/13/2020 10:10:25 PM EDT [facility] [place] [facility] Name Value Range Interpretation Code Description Data Morena rce(s) Supporting Document(s) COLOR [facility] [place] [facility] APPEARANCE [facility] SPEC GRAV URINE 1.017 (1.003-1.030) [facility] PH URINE 5.5 (5.0-7.5) [facility] [place] [facility] LEUK ESTERASE (NEG) [facility] NITRITE URINE (NEG) [facility] PROTEIN URINE 1+ (NEG) A [facility] [place] [facility] GLUCOSE URINE 1+ (NEG) A [facility] [place] [facility] KETONE URINE (NEG) [facility] [place] [facility] [place] UROBILINOGEN 0.2 mg/dL (0-1.0) [facility] [place] [facility] [place] BILIRUBIN URINE (NEG) [facility] [place] [facility] BLOOD/HGB URINE 2+ (NEG) A [facility] [place] [facility] ID Date Data Source [id number] 12/13/2020 09:42:50 PM EDT [facility] [place] [facility] Name Value Range Interpretation Code Description Data Morena rce(s) Supporting Document(s) URN CULTURE HOLD [facility] [place] [facility] FOR ADD ON CULTURE ID Date Data Source [id number] 12/20/2020 01:25:18 PM EDT [facility] [place] [facility] Name Value Range Interpretation Code Description Data Morena rce(s) Supporting Document(s) TOTAL PROTEIN 6.7 g/dL (6.4-8.2) [facility] [place] [facility] TOTAL PROTEIN EPP 6.7 g/dL (6.4-8.2) [facility] [place] [facility] ALBUMIN CALC 4.5 g/dL (3.9-5.1) [facility] [place] [facility] [place] ALPHA 1 CALC 0.2 g/dL (0.1-0.3) [facility] [place] [facility] [place] ALPHA 2 CALC 0.7 g/dL (0.4-1.0) [facility] [place] [facility] [place] BETA CALC 0.7 g/dL (0.5-1.1) [facility] [place] [facility] GAMMA CALC 0.6 g/dL (0.4-1.2) [facility] [place] [facility] MONOCLONAL CALC (NOMONO) [facility] [place] [facility] ALBUMIN PERCENT 66.4 % (58.8-69.6) [facility] [place] [facility] ALPHA 1 PERCENT 3.0 % (1.6-3.0) [facility] [place] [facility] ALPHA 2 PERCENT 10.4 % (7.2-13.2) [facility] [place] [facility] BETA PERCENT 11.1 % (8.0-14.7) [facility] [place] [facility] GAMMA PERCENT 9.1 % (7.3-16.4) [facility] [place] [facility] INTERPRETATION: [facility] [place] [facility] MD JAY 12/16/20Interpretation perf [place]med [place] [address] ID Date Data Source [id number] 12/17/2020 01:17:18 PM EDT [facility] [place] [facility] Name Value Range Interpretation Code Description Data Morena rce(s) Supporting Document(s) MYELOPEROX AB 0 AU/mL Lab [facility] Reference range: 0 to 19 INTERPRETIVE IN FORMATION: Myeloperoxidase Abs, IgG 19 AU/mL or Less ......... Negative 20-25 AU/mL .............. Equivocal 26 AU/mL or Greater ...... Positive Approximately 90% of patients with a P-ANCA pattern by IFA have antibodies specific for MPO. [facility]ASE 3 [facility] Reference range: 0 to 19Unit: AU/mL INTE RPRETIVE INFORMATION: Serine Proteinase 3, IgG 19 AU/mL or Less ........ Negative 20-25 AU/mL ............. Equivocal 26 AU/mL or Greater ..... Positive Approximately 85% of patients with a C-ANCA pattern by IFA have antibodies specific for PR3. ANCA IFA TITER Lab [facility] <1:20Reference range: <1:20 ANCA IFA PATTERN [facility] None DetectedReference range: None Detec naresh INTERPRETIVE INFORMATION: ANCA IFA Pattern Neutrophil Cytoplasmic Antibodies (C-ANCA = granular cytoplasmic staining, P-ANCA = perinuclear staining) are found in the serum of over 90 percent of patients with certain necrotizing systemic vasculitides, and usually in less than 5 percent of patients with collagen vascular disease or arthritis. Performed By: [facility] [address] [place] [address] Corporate Tax Preparer: Li Hoffman MD ID Date Data Source [id number] 12/16/2020 04:04:44 PM EDT [facility] Name Value Range Interpretation Code Description Data Morena rce(s) Supporting Document(s) CH50 TURBIDIMETRIC 67.0 Lab [facility] e [facility] Reference range: 38.7 to 89.9Unit: U/mL REFERENCE INTERVAL: Complement Activity Total, (CH50) 38.6 U/mL or less ..........Low 38.7-89.9 U/mL .............Normal 90.0 U/mL or greater .......High Performed By: [facility] [address] [place] [id number] Corporate Tax Preparer: Li Hoffman MD ID Date Data Source [id number] 12/16/2020 01:05:23 PM EDT [facility] [place] Name Value Range Interpretation Code Description Data Morena rce(s) Supporting Document(s) KAPPA FREE LIGHT 56.60 H [facility] [place] [facility] [place] Reference range: 3.30 to 19.40Unit: mg/L INTERPRETIVE INFORMATION: [place] Qnt Free Light Chains Undetected antigen excess is a rare event but cannot be excluded. Free light chain results should always be interpreted in conjunction with other clinical and laboratory findings. LAMBDA FREE LIGHT 30.32 H [facility] [place] [facility] Reference range: 5.71 to 26.30Unit: mg/L GEOVANNA/HAMLIN RATIO, SERUM 1.87 H [facility] Reference range: 0.26 to 1.65 Performed By: [facility] [address] [place], [place] [id number] Corporate Tax Preparer: Li Hoffman MD ID Date Data Source [id number] 12/16/2020 08:14:49 AM EDT [facility] [place] Name Value Range Interpretation Code Description [...] and assessment of renal prognosis. Performed By: [facility] [address] [place], [place] [id number] Corporate Tax Preparer: Li Hoffman MD ID Date Data Source [id number] 12/14/2020 05:02:46 PM EDT [facility] [place] [facility] [place] Name Value Range Interpretation Code Description Data Morena rce(s) Supporting Document(s) BÁRBARA SCREEN @ (NEG) [facility] [place] [facility] [place] ID Date Data Source [id number] 12/13/2020 11:01:13 PM EDT [facility] [place] Name Value Range Interpretation Code Description Data Morena rce(s) Supporting Document(s) TROPONIN I 6.39 ng/mL (<0.05) H [facility] [place] [facility] [place] Less than 0.05: Myocardial injury unlike lyGreater than or equal to 0.05: Highly suggestive of myocardial injuryCorrelation with rise and/or fall ofserial troponins, clinical symptomsand ECG changes is necessary.ALERTED CRITICAL RESULT TOKATIE([id number]) D3([id number]) AT 2255 ON 12/13/20 [place] [id number] ID Date Data Source [id number] 12/13/2020 10:58:37 PM EDT [facility] [place] Name Value Range Interpretation Code Description Data Morena rce(s) Supporting Document(s) CERULOPLASMIN @ 34.2 mg/dL (20-60) [facility] [place] [facility] [place] ID Date Data Source [id number] 12/13/2020 10:36:31 PM EDT [facility] [place] Name Value Range Interpretation Code Description Data Morena rce(s) Supporting Document(s) ACETAMINOPHEN <2.5 ug/mL (10.0-30.0) L [facility] [place] [facility] [place] ID Date Data Source [id number] 12/13/2020 10:12:40 PM EDT [facility] [place] [facility] [place] Name Value Range Interpretation Code Description Data Morena rce(s) Supporting Document(s) HEPATITIS C AB @ (NEG) [facility] [place] [facility] [place] NOT INFECT ED WITH HCV, UNLESS RECENTINFECTION IS SUSPECTED OR OTHER EVIDENCEEXISTS TO INDICATE HCV INFECTION. ID Date Data Source [id number] 12/13/2020 09:22:23 PM EDT [facility] [place] Name Value Range Interpretation Code Description Data Morena rce(s) Supporting Document(s) RHEUMATOID FACTOR @ <15 IU/mL (0-15) [facility] [place] ID Date Data Source [id number] 12/13/2020 09:22:23 PM EDT [facility] [place] Name Value Range Interpretation Code Description Data Morena rce(s) Supporting Document(s) COMPLEMENT C3 @ 56 mg/dL (90-180) L [facility] [place] ID Date Data Source [id number] 12/13/2020 09:22:23 PM EDT [facility] [place] [facility] [place] Name Value Range Interpretation Code Description Data Morena rce(s) Supporting Document(s) COMPLEMENT C4 @ 20 mg/dL (10-40) Emmanuel Cox [facility] [place] ID Date Data Source [id number] 12/13/2020 06:40:38 PM EDT [address] [address]Eopezud Name: Dilan KirkDOB: 1960ex: MOrdering Provider: PIERCE AMAYAAutcharles Prov: PIERCE Robison Provider: Procedure Performed: US ABDOMINAL VEINS LIMITEDExam Date: 12/13/2020 16:02MRN: [id number] Number: [id number] Class: INFORMATION: Exam: US Duplex Artery or [...] rce(s) Supporting Document(s) ID Date Data Source [id number] 12/13/2020 06:33:52 PM EDT [address] [address]Indipxb Name: Dilan KirkDOB: 1960ex: MOrdering Provider: ROBERT CEDILLOAuthorineno Prov: ROBERT CEDILLOReferring Provider: Procedure Performed: XR CHEST PORTABLEExam Date: 12/13/2020 18:12MRN: [id number] Number: [id number] Class: INFORMATION: Exam: XR Chest Exam date [...] rce(s) Supporting Document(s) ID Date Data Source [id number] 12/13/2020 05:04:51 PM EDT [facility] INFORMATIONPatient MRN Name Date of Age Gend*PT [id number] Dilan Kirk 1960 60 years M IPPT Location Admission Date/Time Visit ID Attending [id number] 12/13/20 1238 --- Crystal Neal MD([id number]) EPI ID CSN Admitting Provider [id number] Crystal Neal MD([id number])Consult NoteAdmit Date: 12/13/2020Today's Date: December 13eason for [...] 4 yearspresented with [facility]ness [facility]. He wasnoted to be in acute renal failure with severely abnormal liver function testand transferred to [facility]. Patient hadsome soda with [...] coronary artery disease and had a cath [id number] which showed mild CAD and did not [...] mellitus History of herniated intervertebral disc Hypertension [place] (myocardial infarction) Sinusitis Umbilical herniaFH: No family [...] Social Gatherings with Friends and Family: Attends [employer] Services: Active Member of Clubs or Organizations: [...] reviewed today at 1:50 PM :Labs from [facility] reviewedImaging:CXR from [facility] reviewedCurrent Meds:Scheduled Meds: amLODIPine 10 mg Oral [...] (DEFINITY) 8.476 mg in 10 mL NS IVSalaltaf Cedillo MD Name Value Range Interpretation Code Description Data Morena rce(s) Supporting Document(s) ID Date Data Source [id number] 12/13/2020 05:09:46 PM EDT [facility] [place] [facility] [place] Name Value Range Interpretation Code Description Data Morena rce(s) Supporting Document(s) POC TEMPERATURE [facility] [place] [facility] [place] 37.0C POC SOURCE [facility] [place] [facility] PUNCTURE SITE [facility] [place] [facility] O2 THERAPY [facility] [place] [facility] CP BYPASS [facility] [place] [facility] KIERAN TEST [facility] [place] [facility] POC VENOUS PH 7.35 pH (7.33-7.43) [facility] [place] [facility] [place] POC VENOUS PCO2 45.9 MM HG (38.0-50.0) [facility] POC VENOUS PO2 28 MM HG (30-50) L [facility] [place] [facility] POC VENOUS SO2 49 % (60-85) L [facility] [place] [facility] POC VENOUS BASE DEFICIT 1 MMOL/L (0-2) [facility] POC VENOUS HCO3 25.5 MMOL/L (23.0-27.0) [facility] POC VENOUS TOTAL CO2 27 MMOL/L (24-28) [facility] PERFORMED BY [facility] CLINICAL STAFF POC HCT 47 % (41.0-53.0) [facility] [place] [facility] [place] POC SODIUM 134 MMOL/L (136-145) L [facility] [place] [facility] [place] POC POTASSIUM 5.4 MMOL/L (3.6-5.2) H [facility] [place] [facility] POC IONIZED CALCIUM 4.9 MG/DL (4.6-5.3) [facility] POC GLU 106 MG/DL (70-99) H [facility] [place] [facility] [place] PERFORM LAB [facility] [place] [facility] [place] ID Date Data Source [id number] 12/13/2020 05:06:44 PM EDT [facility] [place] [facility] Name Value Range Interpretation Code Description Data Morena rce(s) Supporting Document(s) POC NOVA GLU 112 mg/dL (70-99) H [facility] [place] [facility] [place] PERFORMED BY [facility] CLINICAL STAFF ID Date Data Source [id number] 12/13/2020 08:48:30 PM EDT [facility] [place] [facility] [place] Name Value Range Interpretation Code [...] APR 20, 2017). ID Date Data Source [id number] 12/13/2020 08:48:30 PM EDT [facility] [place] [facility] [place] Name Value Range Interpretation Code Description Data Morena rce(s) Supporting Document(s) HEPATITIS B S AG @ (NEG) [facility] [place] HEP. B CORE IGM @ (NEG) [facility] [place] [facility] [place] HEPATITIS A AB IGM @ (NEG) [facility] [place] HEPATITIS C AB @ (NEG) [facility] [place] [facility] [place] NOT INFECT ED WITH HCV, UNLESS RECENTINFECTION IS SUSPECTED OR OTHER EVIDENCEEXISTS TO INDICATE HCV INFECTION. ID Date Data Source [id number] 12/13/2020 08:48:30 PM EDT [facility] [place] [facility] [place] Name Value Range Interpretation Code Description Data Morena rce(s) Supporting Document(s) HEP B CORE AB TOTAL @ (NEG) [facility] [place] ID Date Data Source [id number] 12/13/2020 07:57:54 PM EDT [facility] [place] [facility] [place] Name Value Range Interpretation Code Description Data Morena rce(s) Supporting Document(s) CHOLESTEROL @ 107 mg/dL (0-200) [facility] [place] [facility] [place] TRIGLYCERIDE @ 170 mg/dL (30-200) [facility] [place] [facility] [place] HDL CHOLESTEROL @ 30 mg/dL (>40) L [facility] [place] [facility] [place] PER NCEP ATP III GUIDELINES:RESULTS LOWE R THAN 40 MG/DL ARE SUGGESTIVEOF INCREASED RISK FOR CORONARY ARTERYDISEASE. RESULTS > OR = TO 60 MG/DL ARECONSIDERED A NEGATIVE RISK FACTOR. CHOL/HDL RATIO 3.6 RATIO [facility] [place] [facility] [place] INTERPRETATION OF CHOL-HDL RATIO CHD RISK FEMALE MALEVERY HIGH >8.3 >14.3HIGH 5.6- 8.3 6.7- 14.3AVERAGE 3.7- 5.6 4.0- 6.7BELOW AVERAGE 2.5- 3.7 2.7- 4.0PROTECTED <2.5 <2.7 LDL CHOL (CALC) 43 mg/dL (<130) [facility] [place] [facility] [place] PER NCEP ATP III GUIDELINES: OPTIMAL < 100 NEAR OPTIMAL 100 - 129BORDERLINE HIGH 130 - 159 HIGH 160 - 189 VERY HIGH > 189 ID Date Data Source [id number] 12/13/2020 07:17:50 PM EDT [facility] [place] [facility] [place] Name Value Range Interpretation Code Description Data Morena rce(s) Supporting Document(s) TROPONIN I 5.89 ng/mL (<0.05) H [facility] [place] [facility] [place] Less than 0.05: Myocardial injury unlike lyGreater than or equal to 0.05: Highly suggestive of myocardial injuryCorrelation with rise and/or fall ofserial troponins, clinical symptomsand ECG changes is necessary.ALERTED CRITICAL RESULT [place] ([id number]) [place] [address] ON 12.13.20 AT 18:46 [place] [address] ID Date Data Source [id number] 12/13/2020 06:02:25 PM EDT [facility] [place] [facility] [place] Name Value Range Interpretation Code Description Data Morena rce(s) Supporting Document(s) NT PRO BNP 86068 pg/mL (0-125) H [facility] [place] [facility] [place] ID Date Data Source [id number] 12/13/2020 06:02:25 PM EDT [facility] [place] [facility] [place] Name Value Range Interpretation Code Description Data Morena rce(s) Supporting Document(s) TSH,ULTRASENSITIVE @ 1.779 mIU/L (0.360-4.170) [facility] [place] [facility] [place] PERFORMED AT [address] [place] [address] [facility] [address] ID Date Data Source [id number] 12/13/2020 06:02:25 PM EDT [facility] [place] [facility] [place] Name Value Range Interpretation Code Description Data Morena rce(s) Supporting Document(s) SODIUM 133 mmol/L (136-145) L [facility] [place] [facility] [place] POTASSIUM 5.2 mmol/L (3.6-5.2) [facility] [place] [facility] CHLORIDE 100 mmol/L (100-108) [facility] [place] [facility] CO2 21 mmol/L (22-31) L [facility] [place] [facility] ANION GAP 12 mmol/L (7-16) [facility] [place] [facility] UREA NITROGEN 60 mg/dL (7-24) H [facility] [place] [facility] [place] CREATININE 4.30 mg/dL (0.80-1.30) H [facility] [place] [facility] BUN/CREAT RATIO 14.0 RATIO (10.0-20.0) [facility] GLUCOSE 92 mg/dL (70-99) [facility] [place] [facility] CALCIUM 9.8 mg/dL (8.4-10.2) [facility] [place] [facility] TOTAL PROTEIN 6.9 g/dL (6.4-8.2) [facility] [place] [facility] ALBUMIN 3.7 g/dL (3.5-4.6) [facility] [place] [facility] GLOBULIN 3.2 g/dL (2.7-4.3) [facility] [place] [facility] ALB/GLOB RATIO 1.2 RATIO [facility] [place] [facility] ALKALINE PHOSPHATASE 52 U/L (45-117) [facility] BILIRUBIN,TOTAL 0.7 mg/dL (0.0-1.0) [facility] [place] [facility] [place] PLEASE NOTE:Total bilirubin results may be falselyelevated in patients taking Eltrombopag. AST (SGOT) 7665 U/L (11-39) H [facility] [place] [facility] ALT (SGPT) 6369 U/L (12-78) H [facility] [place] [facility] GFR 14 ml/min/1.73m2 (>59) L [facility] [place] [facility] GFR ( AMER) 17 ml/min/1.73m2 (>59) L [facility] [place] [facility] GFR INTERPRETATION [facility] --NORMAL KIDNEY FUNCTION OR MILD DISEASE - GFR >OR= 60CHRONIC KIDNEY DISEASE - GFR 15 - 59RENAL FAILURE - GFR <15 Est. GFR calculation based on the MDRDstudy equation, which assumes a steadystate for creatinine. Est. GFR should notbe used for medication dosing. ID Date Data Source [id number] 12/13/2020 05:44:07 PM EDT [facility] [place] [facility] [place] Name Value Range Interpretation Code Description Data Morena rce(s) Supporting Document(s) PHOSPHORUS 7.2 mg/dL (2.5-4.5) H [facility] [place] [facility] [place] ID Date Data Source [id number] 12/13/2020 05:44:07 PM EDT [facility] [place] [facility] [place] Name Value Range Interpretation Code Description Data Morena rce(s) Supporting Document(s) MAGNESIUM 2.0 mg/dL (1.7-2.4) [facility] [place] [facility] [place] ID Date Data Source [id number] 12/13/2020 05:44:07 PM EDT [facility] [place] [facility] [place] Name Value Range Interpretation Code Description Data Morena rce(s) Supporting Document(s) ETHANOL <3 mg/dL (0-3) [facility] [place] [facility] [place] ID Date Data Source [id number] 12/13/2020 05:37:26 PM EDT [facility] [place] [facility] [place] Name Value Range Interpretation Code Description Data Morena rce(s) Supporting Document(s) HEMOGLOBIN A1C @ 6.7 % (4.0-6.0) H Lab [facility] Performed using Siemens [place] immunoassa y.Care must be taken when interpreting [id number] in patients with a hemoglobin variantor decreased erythrocyte lifespan. Values 5.7 - 6.4% suggest prediabetes.Values >=6.5% are diagnostic for diabetes.REFERENCE: DIABETES CARE 2018: 41(S13-S27).PERFORMED AT [address] [place] [address] EST AVERAGE GLUCOSE 146 mg/dL [facility] [place] ID Date Data Source [id number] 12/13/2020 05:30:16 PM EDT [facility] [place] [facility] [place] Name Value Range Interpretation Code Description Data Morena rce(s) Supporting Document(s) APTT 27.6 s (22.0-34.3) [facility] [place] [facility] [place] ID Date Data Source [id number] 12/13/2020 05:30:16 PM EDT [facility] [place] [facility] [place] Name Value Range Interpretation Code Description Data Morena rce(s) Supporting Document(s) PT 16.3 s (9.2-11.9) H [facility] [place] [facility] [place] INR 1.59 [facility] [place] [facility] KUO SUGGESTED THERAPEUTIC RANGES USING INR F ORSTABILIZED ANTICOAGULATED PATIENTS:STANDARD DOSE THERAPY INR 2.0-3.0 DVT, PE, PREVENT DVT OR EMBOLISMHIGH DOSE THERAPY INR 2.5-3.5 PREVENT EMBOLISM FROM MECHANICAL HEART VALVE ID Date Data Source [id number] 12/13/2020 05:13:26 PM EDT [facility] [place] [facility] [place] Name Value Range Interpretation Code Description Data Morena rce(s) Supporting Document(s) WBC 14.4 10*3/uL (4.1-11.0) H [facility] [place] [facility] RBC 4.93 10*6/uL (4.60-6.10) [facility] [place] [facility] HGB 15.9 g/dL (13.5-18.0) [facility] [place] [facility] [place] HCT 46.9 % (41.0-53.0) [facility] [place] [facility] [place] MCV 95.2 fL (80.0-95.0) H [facility] [place] [facility] [place] MCH 32.3 pg (27.0-32.0) H [facility] [place] [facility] [place] MCHC 33.9 g/dL (32.0-36.0) [facility] [place] [facility] [place] RDW 14.5 % (10.5-14.5) [facility] [place] [facility] [place] PLT 126 10*3/uL (150-450) L [facility] [place] [facility] [place] MPV 9.8 fL (7.1-10.7) [facility] [place] [facility] NEUT % 85.3 % (35.0-75.0) H [facility] [place] [facility] [place] LYMPH % 10.5 % (16.0-52.0) L [facility] [place] [facility] [place] MONO % 4.0 % (0.0-8.0) [facility] [place] [facility] EOS % 0.1 % (0.0-5.0) [facility] [place] [facility] BASO % 0.1 % (0.0-4.0) [facility] [place] [facility] NEUT # 12.3 10*3/uL (1.8-7.7) H [facility] [place] [facility] [place] LYMPH # 1.5 10*3/uL (1.2-4.8) [facility] [place] [facility] [place] MONO # 0.6 10*3/uL (0.0-0.8) [facility] [place] [facility] [place] Eosinophils [#/volume] in Blood by Automated count 0.0 10*3/uL (0.0-0 .5) [facility] [place] [facility] BASO # 0.0 10*3/uL (0.0-0.2) [facility] [place] [facility] [place] ID Date Data Source [id number] 12/20/2020 01:41:37 PM EDT [facility] [place] [facility] Name Value Range Interpretation Code Description Data Morena rce(s) Supporting Document(s) PROTEIN,URINE 148 mg/dL [facility] [place] [facility] URINE PROTEIN MAY BE FALSELY ELEVATEDDUR ING TREATMENT WITH AMINOGLYCOSIDESDUE TO METHOD INTERFERENCE. ALBUMIN URINE 35.7 % [facility] [place] [facility] ALPH1 1 URINE 64.3 % [facility] [place] [facility] TOTAL OTHER FRACTIONS ALPHA 2 URINE [facility] [place] [facility] BETA URINE [facility] [place] [facility] GAMMA URINE [facility] [place] [facility] [place] INTERPRETATION: [facility] [place] [facility] [place] MIXED PATTERN PROTEINURIAI.MD HERIBERTO 12/16/20Interpretation performed [place] [address] ID Date Data Source [id number] 12/13/2020 10:14:50 PM EDT [facility] [place] [facility] Name Value Range Interpretation Code Description Data Morena rce(s) Supporting Document(s) URINE WBC (0-5) [facility] [place] [facility] URINE RBC (0-2) [facility] [place] [facility] EPITHELIAL CELLS 1+ [HPF] [facility] [place] [facility] AMORPHOUS 2+ [HPF] [facility] [place] [facility] COARSE GRAN CAST [facility] [place] [facility] ID Date Data Source [id number] 12/13/2020 08:02:02 PM EDT [facility] [place] [facility] Name Value Range Interpretation Code Description Data Morena rce(s) Supporting Document(s) PROTEIN,URINE 148 mg/dL [facility] [place] [facility] URINE PROTEIN MAY BE FALSELY ELEVATEDDUR ING TREATMENT WITH AMINOGLYCOSIDESDUE TO METHOD INTERFERENCE. CREATININE,URINE 159.00 mg/dL [facility] URINE TP/CR RATIO 0.93 RATIO (0.00-0.20) H [facility] [place] ID Date Data Source [id number] 12/13/2020 08:02:02 PM EDT [facility] [place] [facility] Name Value Range Interpretation Code Description Data Morena rce(s) Supporting Document(s) RANDOM URINE CREAT 159.00 mg/dL [facility] ID Date Data Source [id number] 12/13/2020 08:02:02 PM EDT [facility] [place] [facility] Name Value Range Interpretation Code Description Data Morena rce(s) Supporting Document(s) RANDOM URINE SODIUM 36 mmol/L [facility] RAND URINE POTASSIUM 84.9 mmol/L [facility] RAND. URINE CHLORIDE 20 mmol/L [facility] ID Date Data Source [id number] 12/13/2020 07:49:14 PM EDT [facility] [place] [facility] [place] Name Value Range Interpretation Code Description Data Morena rce(s) Supporting Document(s) COLOR [facility] [place] [facility] APPEARANCE [facility] [place] [facility] SPEC GRAV URINE 1.023 (1.003-1.030) [facility] PH URINE 5.0 (5.0-7.5) [facility] [place] [facility] LEUK ESTERASE (NEG) [facility] [place] [facility] NITRITE URINE (NEG) [facility] [place] [facility] PROTEIN URINE 1+ (NEG) A [facility] [place] [facility] GLUCOSE URINE 2+ (NEG) A [facility] [place] [facility] KETONE URINE (NEG) A [facility] [place] [facility] [place] UROBILINOGEN 0.2 mg/dL (0-1.0) [facility] [place] [facility] [place] BILIRUBIN URINE 1+ (NEG) A [facility] [place] [facility] [place] INTERFERING SUBSTANCES MAY CAUSE FALSEPO SITIVE BILIRUBIN, WHICH HAS BEENSHOWN TO BE CLINICALLY INSIGNIFICANT.CORRELATE WITH OTHER TESTING. BLOOD/HGB URINE 2+ (NEG) A [facility] [place] [facility] [place] ID Date Data Source [id number] 12/13/2020 09:32:00 AM EDT [facility] ([facility]) Name Value Range Interpretation Code Description Data Morean rce(s) Supporting Document(s) Natriuretic peptide.B prohormone N-Terminal [Mass/volu me] in Serum or Plasma 22793 pg/mL [facility] ([facility]) Magnesium [Mass/volume] in Serum or Plasma 1.9 mg/dL 1.8-2.4 [facility] ([facility]) Thyrotropin [Units/volume] in Serum or Plasma 2.450 uIU/ML 0.358-3.74 0 [facility] ([facility]) Lipoprotein lipase [Enzymatic activity/volume] in Serum or P lasma 204 U/L 73-393 [facility] ([facility]) ID Date Data Source [id number] 12/13/2020 09:32:00 AM EDT [facility] ([facility]) Name Value Range Interpretation Code Description Data Morena rce(s) Supporting Document(s) Glucose, Fasting 150 mg/dL 70-100 [facility] ([facility]) Creatinine For GFR 4.94 mg/dL 0.70-1.30 [facility] ([facility]) Blood Urea Nitrogen 58 mg/dL 7-18 [facility] ([facility]) Glomerular Filtration Rate 12.9 MED ENT ([facility]) <content>Units are mL/min/1.73 m2</content>
<content></content>
<content>Chronic Kidney Disease Staging per NKF:</content>
<content></content>
<content>Stage I & II GFR >=60 Normal to Mildly Decreased</content>
<content>Stage III GFR 30-59 Moderately Decreased</content>
<content>Stage IV GFR 15-29 Severely Decreased</content>
<content>Stage V GFR <15 Very Little GFR Left</content>
<content>ESRD GFR <15 on STEEL WELDER</content>
<content></content> Sodium Level 133 meq/L 136-145 [facility] ([facility]) Chloride Level 97 meq/L 98-107 [facility] ([facility]) Potassium Serum 6.5 meq/L 3.5-5.1 Above upper panic limits [facility] ([facility]) Carbon Dioxide Level 21 meq/L 21-32 [facility] ([facility]) Anion Gap 15 meq/L 8-16 [facility] Calcium Level 8.8 mg/dL 8.5-10.1 [facility] ([facility]) ID Date Data Source [id number] 12/13/2020 09:32:00 AM EDT [facility] ([facility]) Name Value Range Interpretation Code Description Data Morena rce(s) Supporting Document(s) Ast/Sgot 5044 U/L 7-37 [facility] ([facility]) Alkaline Phosphatase 49 U/L 45-117 [facility] ([facility]) Bilirubin,Total 0.8 mg/dL 0.2-1.0 [facility] (Cardio logy [facility]) Alt/SGPT 5023 U/L 12-78 [facility] ([facility]) Bilirubin,Direct 0.4 mg/dL 0.0-0.2 [facility] ([facility]) Total Protein 6.7 GM/DL 6.4-8.2 [facility] Albumin 3.4 GM/DL 3.2-5.2 [facility] ([facility]) Albumin/Globulin Ratio 1.0 [facility] ([facility]) ID Date Data Source [id number] 12/13/2020 08:44:00 AM EDT [facility] ([facility]) Name Value Range Interpretation Code Description Data Morena rce(s) Supporting Document(s) Prothrombin Time 22.4 s 12.7-14.5 [facility] ([facility]) Inr 1.92 [facility] ([facility]) THERAPUTIC HUMAN INR VALUES INDICATIONS NORMAL RANGES PROPHYLAXIS/TREATMENT OF: VENOUS THROMBOSIS 2.0-3.0 PULMONARY EMBOLISM 2.0-3.0 PREVENTION OF SYSTEMIC EMBOLISM FROM: TISSUE HEART VALVES 2.0-3.0 ACUTE MYOCARDIAL INFARCTION 2.0-3.0 VALVULAR HEART DISEASE 2.0-3.0 ATRIAL FIBRILLATION 2.0-3.0 MECHANICAL VALVES(HIGH RISK) 2.5-3.5 RECURRENT MYOCARDIAL INFARCTION 2.5-3.5 ID Date Data Source [id number] 12/13/2020 08:40:00 AM EDT [facility] Name Value Range Interpretation Code Description Data Morena rce(s) Supporting Document(s) SARS coronavirus 2 RNA [Presence] in Res piratory specimen by VICKEY with probe detection NEGATIVE [facility] This lab was ordered by [facility] a nd reported by [facility]. ID Date Data Source [id number] 07/27/2020 03:50:00 PM EDT [facility] ([facility]) Name Value Range Interpretation Code Description Data Morena rce(s) Supporting Document(s) Hemoglobin A1c/Hemoglobin.total in Blood 8.5 [facility] ([facility]) ID Date Data Source [id number] 07/27/2020 03:50:00 PM EDT [facility] ([facility]) Name Value Range Interpretation Code Description Data Morena rce(s) Supporting Document(s) Triglycerides 297 [facility] ([facility]) HDL 27 [facility] ([facility]) Cholesterol 117 [facility] ([facility]) Chol/HDL Ratio 4.333 [facility] ([facility] Cholesterol in LDL [Mass/volume] in Serum or Plasma by calculation 31 [facility] ([facility]) ID Date Data Source [id number] 07/21/2020 04:19:00 PM EDT [facility] ([facility]) Name Value Range Interpretation Code Description Data Morena rce(s) Supporting Document(s) Troponin I.cardiac [Mass/volume] in Serum or Plasma 0.13 [facility] ([facility]) ID Date Data Source [id number] 07/21/2020 04:19:00 PM EDT [facility] ([facility]) Name Value Range Interpretation Code Description Data Morena rce(s) Supporting Document(s) Troponin I.cardiac [Mass/volume] in Serum or Plasma 0.11 [facility] ([facility]) ID Date Data Source [id number] 07/21/2020 03:32:00 PM EDT [facility] ([facility]) Name Value Range Interpretation Code Description Data Morena rce(s) Supporting Document(s) White Blood Count 12.9 5.0-10.0 [facility] ([facility]) Red Blood Count 5.50 4.00-5.40 [facility] ([facility]) Hematocrit 52.3 [facility] ([facility]) Platelets 214 172-450 [facility] ([facility] Hemoglobin 17.9 [facility] ([facility]) ID Date Data Source [id number] 01/06/2020 11:04:00 AM EDT [facility] ([facility]) Name Value Range Interpretation Code Description Data Morena rce(s) Supporting Document(s) Free T4 1.07 [facility] ([facility] Thyroid Stimulating Hormone 2.8000 ME DENT ([facility]) ID Date Data Source [id number] 01/06/2020 11:04:00 AM EDT [facility] ([facility]) Name Value Range Interpretation Code Description Data Morena rce(s) Supporting Document(s) Alanine aminotransferase [Enzymatic activity/volume] in Serum or Pl asma 42 [facility] ([facility]) Albumin [Mass/volume] in Serum or Plasma 3.9 [facility] ([facility]) Carbon dioxide, total [Moles/volume] in Serum or Plasma 27 [facility] ([facility]) Chloride [Moles/volume] in Serum or Plasma 98 [facility] ([facility]) Calcium [Mass/volume] in Serum or Plasma 9.4 [facility] ([facility]) Potassium [Moles/volume] in Serum or Plasma 4.8 [facility] ([facility]) Alkaline phosphatase [Enzymatic activity/volume] in Serum or Plasma 5 7 [facility] ([facility]) Protein [Mass/volume] in Serum or Plasma 7.5 [facility] ([facility]) Sodium 134 [facility] ([facility] Aspartate aminotransferase [Enzymatic activity/volume] in Serum or Plasma 24 [facility] ([facility]) Glucose 142 70-100 [facility] ([facility] Creatinine For GFR 1.30 [facility] ([facility]) Urea nitrogen [Mass/volume] in Serum or Plasma 27 [facility] ([facility]) ID Date Data Source [id number] 01/06/2020 11:04:00 AM EDT [facility] ([facility]) Name Value Range Interpretation Code Description Data Morena rce(s) Supporting Document(s) Triglycerides 427 [facility] ([facility]) HDL 27 [facility] ([facility] Cholesterol 145 [facility] ([facility]) Cholesterol in LDL [Mass/volume] in Serum or Plasma by calculation 11 8 [facility] ([facility]) Chol/HDL Ratio 5.370 [facility] ([facility]) ID Date Data Source [id number] 01/06/2020 11:04:00 AM EDT [facility] ([facility]) Name Value Range Interpretation Code Description Data Morena rce(s) Supporting Document(s) Hemoglobin A1c/Hemoglobin.total in Blood 7.9 [facility] ([facility]) ID Date Data Source [id number] 01/06/2020 11:04:00 AM EDT [facility] ([facility]) Name Value Range Interpretation Code Description Data Morena rce(s) Supporting Document(s) Red Blood Count 4.70 4.30-6.10 [facility] ([facility]) White Blood Count 11.1 4.0-10.0 [facility] ([facility]) Hemoglobin 15.5 [facility] ([facility]) Hematocrit 46.0 [facility] ([facility]) Platelets 201 150-450 [facility] Procedure Social History Code Duration Value Status Description Data Source(s ) Smoking 01/19/2021 12:00:00 AM EDT Former Smoker completed Former Smoker eCW1 ([facility]) Smoking 12/24/2020 12:00:00 AM EDT Former Smoker completed Former Smoker eCW1 ([facility]) Smoking 12/24/2020 12:00:00 AM EDT Former Smoker completed Former Smoker eCW1 ([facility]) Smoking 12/23/2020 12:00:00 AM EDT Patient is a former smoker completed Patient is a former smoker [facility] ([facility]) Alcohol intake 12/16/2020 12:00:00 AM EDT Ex-drinker (finding) comp leted Ex- drinker (finding) [facility] Smoking 10/15/2020 12:00:00 AM EDT Former Smoker completed Former Smoker eCW1 ([facility]) Smoking 07/23/2020 12:00:00 AM EDT Former Smoker completed Former Smoker eCW1 ([facility]) Smoking 07/23/2020 12:00:00 AM EDT Former Smoker completed Former Smoker eCW1 ([facility]) Smoking 07/23/2020 12:00:00 AM EDT Former Smoker completed Former Smoker eCW1 ([facility]) Smoking 07/23/2020 12:00:00 AM EDT Former Smoker completed Former Smoker eCW1 ([facility]) Smoking 07/23/2020 12:00:00 AM EDT Former Smoker completed Former Smoker eCW1 ([facility]) Smoking 07/23/2020 12:00:00 AM EDT Former Smoker completed Former Smoker eCW1 ([facility]) Smoking 01/15/2020 12:00:00 AM EDT Former Smoker completed Former Smoker eCW1 ([facility]) Smoking 01/15/2020 12:00:00 AM EDT Former Smoker completed Former Smoker eCW1 ([facility]) Smoking 01/15/2020 12:00:00 AM EDT Former Smoker completed Former Smoker eCW1 ([facility]) Smoking 01/15/2020 12:00:00 AM EDT Former Smoker completed Former Smoker eCW1 ([facility]) Vital Signs ID Date Data Source UNK Name Value Range Interpretation Code Description Data Source(s) Respiratory rate 18 /min 18 /min eCW1 ([facility]) Body weight 203.2 [lb_av] 203.2 [lb_av] eCW1 ([facility]) Body height [in_i] eCW1 ([facility]) Body mass index (BMI) [Ratio] 31.82 kg/m2 31.82 kg/m2 W1 ([facility]) Body temperature 96.8 [degF] 96.8 [degF] eCW1 ( [facility]) Heart rate 86 /min 86 /min eCW1 ([facility]) Systolic blood pressure 120 mm[Hg] 120 mm[Hg] e CW1 ([facility]) Diastolic blood pressure 70 mm[Hg] 70 mm[Hg] eCW1 ([facility]) Body weight 198 [lb_av] 198 [lb_av] eCW1 ([facility]) Body height [in_i] eCW1 ([facility]) Body weight 89.81 kg 89.81 kg eCW1 ([facility]) Body temperature 97.8 [degF] 97.8 [degF] eCW1 ( [facility]) Systolic blood pressure 140 mm[Hg] 140 mm[Hg] e CW1 ([facility]) Body mass index (BMI) [Ratio] 31.01 kg/m2 31.01 kg/m2 eCW1 ([facility]) Diastolic blood pressure 70 mm[Hg] 70 mm[Hg] eCW1 ([facility]) Heart rate 96 /min 96 /min eCW1 ([facility]) Respiratory rate 18 /min 18 /min eCW1 ([facility]) Systolic blood pressure--sitting 124 mm[Hg] 124 mm[Hg] [facility] ([facility]) Ra, medium cuff Body weight 198.00 [lb_av] 198.00 [lb_av] MEDEN T ([facility]) Body mass index (BMI) [Ratio] 30.1 kg/m2 30.1 k g/m2 [facility] ([facility]) Diastolic blood pressure--sitting 82 mm[Hg] 82 mm[Hg] [facility] ([facility]) Ra, medium cuff Body height 68 [in_i] 68 [in_i] [facility] ([facility]) 5'8" Systolic blood pressure 104 mm[Hg] 104 mm[Hg] [facility] Diastolic blood pressure 64 mm[Hg] 64 mm[Hg] [facility] Heart rate 63 /min 63 /min [facility] Body temperature 36.89 Hawa 36.89 Hawa [facility] Respiratory rate 18 /min 18 /min [facility] Oxygen saturation in Arterial blood by Pulse oximetry 94 % 94 % [facility] Body weight 90.2 kg 90.2 kg [facility] Post dialysis wt Body mass index (BMI) [Ratio] 30.24 kg/m2 30.24 kg/m2 [facility] Body weight 214 [lb_av] 214 [lb_av] eCW1 ([facility]) Body height [in_i] eCW1 ([facility]) Body mass index (BMI) [Ratio] 33.51 kg/m2 33.51 kg/m2 eCW1 ([facility]) Heart rate 78 /min 78 /min eCW1 ([facility]) Respiratory rate 18 /min 18 /min eCW1 ([facility]) Body temperature 97.4 [degF] 97.4 [degF] eCW1 ( [facility]) Systolic blood pressure 138 mm[Hg] 138 mm[Hg] e CW1 ([facility]) Diastolic blood pressure 82 mm[Hg] 82 mm[Hg] eCW1 ([facility]) Body mass index (BMI) [Ratio] 32.8 kg/m2 32.8 k g/m2 [facility] ([facility]) Body weight 216.00 [lb_av] 216.00 [lb_av] MEDEN T ([facility]) Body height 68 [in_i] 68 [in_i] [facility] ([facility]) 5'8" Systolic blood pressure--sitting 126 mm[Hg] 126 mm[Hg] [facility] ([facility]) Ra, large cuff Diastolic blood pressure--sitting 82 mm[Hg] 82 mm[Hg] [facility] ([facility]) Ra, large cuff Body height [in_i] eCW1 ([facility]) Body mass index (BMI) [Ratio] 34.48 kg/m2 34.48 kg/m2 W1 ([facility]) Body weight 220.2 [lb_av] 220.2 [lb_av] eCW1 ([facility]) Body temperature 97.7 [degF] 97.7 [degF] eCW1 ( [facility]) Systolic blood pressure 110 mm[Hg] 110 mm[Hg] e CW1 ([facility]) Diastolic blood pressure 70 mm[Hg] 70 mm[Hg] eCW1 ([facility]) Heart rate 72 /min 72 /min eCW1 ([facility]) Respiratory rate 18 /min 18 /min eCW1 ([facility]) Body weight 230.00 [lb_av] 230.00 [lb_av] MEDEN T ([facility]) Heart rate 74 /min 74 /min [facility] ([facility]) Body height 68 [in_i] 68 [in_i] [facility] ([facility]) 5'8" Body mass index (BMI) [Ratio] 35.0 kg/m2 35.0 k g/m2 [facility] ([facility]) Respiratory rate 16 /min 16 /min [facility] ( [facility]) nonlabored Systolic blood pressure--sitting 128 mm[Hg] 128 mm[Hg] [facility] ([facility]) Ra, large cuff Diastolic blood pressure--sitting 82 mm[Hg] 82 mm[Hg] [facility] ([facility]) Ra, large cuff Body weight 238 [lb_av] 238 [lb_av] eCW1 ([facility]) Body height [in_i] eCW1 ([facility]) Body mass index (BMI) [Ratio] 37.27 kg/m2 37.27 kg/m2 eCW1 ([facility]) Heart rate 78 /min 78 /min eCW1 ([facility]) Respiratory rate 18 /min 18 /min eCW1 ([facility]) Body temperature 97.9 [degF] 97.9 [degF] eCW1 ( [facility]) Systolic blood pressure 140 mm[Hg] 140 mm[Hg] e CW1 ([facility]) Diastolic blood pressure 90 mm[Hg] 90 mm[Hg] eCW1 ([facility]) Patient Treatment Plan of Care Planned Activity Planned Date Details Description Data Source (s) Furosemide 40 MG Oral Tablet 12/17/2020 12:00:00 AM EDT [facility] clopidogrel 75 MG Oral Tablet 12/17/2020 12:00:00 AM EDT [facility] Acetaminophen 325 MG Oral Tablet 12/15/2020 12:45:21 PM EDT [facility] Albuterol 0.83 MG/ML Inhalant Solution 12/13/2020 01:19:02 PM EDT [facility] Nitroglycerin 0.4 MG Sublingual Tablet 12/13/2020 01:16:55 PM EDT [facility] Lancets - 07/30/2020 12:00:00 AM EDT e CW1 ([facility]) FreeStyle Lite Test - 07/30/2020 12:00:00 AM EDT eCW1 ([facility]) Blood Glucose Monitor System w/Device 07/30/2020 12:00:00 AM EDT eCW1 ([facility]) Blood Glucose Test - 07/30/2020 12:00:00 AM EDT eCW1 ([facility]) Lancets - 07/30/2020 12:00:00 AM EDT e CW1 ([facility]) FreeStyle Lite Test - 07/30/2020 12:00:00 AM EDT eCW1 ([facility]) Blood Glucose Monitor System w/Device 07/30/2020 12:00:00 AM EDT eCW1 ([facility]) Blood Glucose Test - 07/30/2020 12:00:00 AM EDT eCW1 ([facility]) Lancets - 07/30/2020 12:00:00 AM EDT e CW1 ([facility]) FreeStyle Lite Test - 07/30/2020 12:00:00 AM EDT eCW1 ([facility]) Blood Glucose Monitor System w/Device 07/30/2020 12:00:00 AM EDT eCW1 ([facility]) Blood Glucose Test - 07/30/2020 12:00:00 AM EDT eCW1 ([facility]) Lancets - 07/30/2020 12:00:00 AM EDT e CW1 ([facility]) FreeStyle Lite Test - 07/30/2020 12:00:00 AM EDT eCW1 ([facility]) Blood Glucose Monitor System w/Device 07/30/2020 12:00:00 AM EDT eCW1 ([facility]) Blood Glucose Test - 07/30/2020 12:00:00 AM EDT eCW1 ([facility]) 24 HR Metformin hydrochloride 500 MG Extended Release Oral Tablet 07/28/2020 12:00:00 AM EDT eCW1 ([facility]) 24 HR Metformin hydrochloride 500 MG Extended Release Oral Tablet 07/28/2020 12:00:00 AM EDT eCW1 ([facility]) 24 HR Metformin hydrochloride 500 MG Extended Release Oral Tablet 07/28/2020 12:00:00 AM EDT eCW1 ([facility]) 24 HR Metformin hydrochloride 500 MG Extended Release Oral Tablet 07/28/2020 12:00:00 AM EDT eCW1 ([facility]) 24 HR Metformin hydrochloride 500 MG Extended Release Oral Tablet 07/28/2020 12:00:00 AM EDT eCW1 ([facility]) 24 HR Metformin hydrochloride 500 MG Extended Release Oral Tablet 07/28/2020 12:00:00 AM EDT eCW1 ([facility]) 24 HR Metformin hydrochloride 500 MG Extended Release Oral Tablet 07/28/2020 12:00:00 AM EDT eCW1 ([facility]) Steglatro 15 MG 02/20/2020 12:00:00 AM EST eCW1 ([facility]) Steglatro 15 MG 02/20/2020 12:00:00 AM EST eCW1 ([facility]) montelukast 10 MG Oral Tablet [Singulair] 02/12/2020 12:00:00 AM ES T eCW1 ([facility]) montelukast 10 MG Oral Tablet [Singulair] 02/12/2020 12:00:00 AM ES T eCW1 ([facility]) Steglatro 15 MG 01/28/2020 12:00:00 AM EDT eCW1 ([facility]) Steglatro 15 MG 01/28/2020 12:00:00 AM EDT eCW1 ([facility]) Steglatro 15 MG 01/28/2020 12:00:00 AM EDT eCW1 ([facility]) Steglatro 15 MG 01/28/2020 12:00:00 AM EDT eCW1 ([facility]) OneTouch Ultra II Test Strips 01/15/2020 12:00:00 AM EDT eCW1 ([facility]) OneTouch Ultra II Test Strips 01/15/2020 12:00:00 AM EDT eCW1 ([facility]) OneTouch Ultra II Test Strips 01/15/2020 12:00:00 AM EDT eCW1 ([facility]) empagliflozin 10 MG Oral Tablet [Jardiance] 01/15/2020 12:00:00 AM EDT eCW1 ([facility]) OneTouch Ultra II Test Strips 01/15/2020 12:00:00 AM EDT eCW1 ([facility]) montelukast 10 MG Oral Tablet [Singulair] 01/15/2020 12:00:00 AM ED T eCW1 ([facility]) empagliflozin 10 MG Oral Tablet [Jardiance] 01/15/2020 12:00:00 AM EDT eCW1 ([facility]) OneTouch Ultra II Test Strips 01/15/2020 12:00:00 AM EDT eCW1 ([facility]) montelukast 10 MG Oral Tablet [Singulair] 01/15/2020 12:00:00 AM ED T eCW1 ([facility]) OneTouch Ultra II Test Strips 01/15/2020 12:00:00 AM EDT eCW1 ([facility]) Ibuprofen 200 MG Oral Tablet [facility] Chlorthalidone 25 MG Oral Tablet [facility] Amlodipine 10 MG Oral Tablet [facility] clopidogrel 75 MG Oral Tablet [facility] PARoxetine (PAXIL) 20 MG tablet [facility] Metformin hydrochloride 850 MG Oral Tablet [facility] Atenolol 50 MG Oral Tablet S [facility] Losartan Potassium 50 MG Oral Tablet [facility]
--- NOTE | 2021-02-21 01:55 | REPVR ---
PROCEDURE INFORMATION: Exam: XR Chest Exam date and time: 02/21/2021 12:42 AM Age: 60 years old Clinical indication: Pain; Angina pectoris; Additional info: Chest pain TECHNIQUE: Imaging protocol: XR of the chest. Views: 1 view. COMPARISON: CR PORTABLE CHEST X-RAY 12/13/2020 8:11 AM FINDINGS: Tubes, catheters and devices: Left chest AICD. Lungs: Stable nonspecific bilateral perihilar and bibasilar reticulonodular opacities. Pleural spaces: Unremarkable. No pleural effusion. No pneumothorax. Heart/Mediastinum: Mild cardiomegaly. Bones/joints: Unremarkable. IMPRESSION: Stable nonspecific bilateral perihilar and bibasilar reticulonodular opacities. Electronically signed by: Enrique Greene On 02/21/2021 01:55:19 AM
[2021-02-21] MEDS ORDERED: AMIODARONE HCL 150 MG in IV 1 EA IV ONE (02:25)
[2021-02-21] MEDS ORDERED: AMIODARONE HCL 360 MG in IV 1 EA IV SCH (02:40)
[2021-02-21] MEDS ORDERED: METOPROLOL 5 MG/5 ML VIAL IV STA (02:51)
[2021-02-21] MEDS ORDERED: METOPROLOL SUCC (TopROL XL) 50MG **XL** TAB PO ONE (02:55)
[2021-02-21 03:45] VITALS: BP_SYST 111; BP_SYST 112; BP_DIAS 53; BP_DIAS 57
[2021-02-21 03:46] LABS: RSV AMPLIFICATION NEGATIVE (NEGATIVE)
--- NOTE | 2021-02-21 10:10 | ECGEPIP ---
[facility] - ED Test Date: 2021-02-21 Pat Name: BERT KIRK Department: Room: - Gender: Male [employer]: JCAARON : 1960 Requested By: BUFFY Rose Order Number: [id number] Reading MD: Low Daniels Measurements Intervals [place] Rate: 84 P: 54 DC: 170 QRS: -16 QRSD: 126 T: 37 QT: 366 QTc: 432 Interpretive Statements Normal sinus rhythm RIGHT BUNDLE BRANCH BLOCK Inferior infarct , age undetermined POOR R WAVE PROGRESSION SIMILAR TO 12/13/20 Electronically Signed on 02-21-2021 10:09:42 EST by Low Daniels
== END 2021-02-21 04:29 | disposition short-term general hospital (02) ==
LOC: M ED 00:19
DX: I47.2 Ventricular tachycardia (principal); E78.5 Hyperlipidemia, unspecified; F17.200 Nicotine dependence, unspecified, uncomplicated; Z95.810 Presence of automatic (implantable) cardiac defibrillator
CPT/HCPCS: 71045; 80048; 83735; 85025; 87631; 93005; 93041; 94760; 99285; J0282

== ENCOUNTER 2021-02-24 11:04 | Emergency (ER) | payer OTHER ==
[~2021-02-24] VITALS: Ht 170.2 cm; Wt 91.5 kg
--- OUTSIDE RECORDS SUMMARY | 2021-02-24 11:18 | CCD ---
Author Author [facility] Organization [facility] Address Unknown Phone Unavailable Care Team Providers Care Student Assistant Name Role Phone Karson HAWLEY MD Unavailable Unavailable GANGIREDDY, K LEONID QUIROZ Unavailable Unavailable GANGIREDDY, K LEONID QUIROZ Unavailable Unavailable GANGIREDDY, K LEONID QUIROZ Unavailable Unavailable GANGIREDDY, K LEONID QUIROZ Unavailable Unavailable GANGIREDDY, K LEONID QUIROZ Unavailable Unavailable GANGIREDDY, K LEONID QUIROZ Unavailable Unavailable GANGIREDDY, K LEONID QUIROZ Unavailable Unavailable GANGIREDDY, K LEONID QUIROZ Unavailable Unavailable GANGIREDDY, K LEONID QUIROZ Unavailable Unavailable GANGIREDDY, K LEONID QUIROZ Unavailable Unavailable GANGIREDDY, K LEONID QUIROZ Unavailable Unavailable GANGIREDDY, K LEONID QUIROZ Unavailable Unavailable GANGIREDDY, K LEONID QUIROZ Unavailable Unavailable GANGIREDDY, K LEONID QUIROZ Unavailable Unavailable GANGIREDDY, K LEONID QUIROZ Unavailable Unavailable GANGIREDDY, K LEONID QUIROZ Unavailable Unavailable GANGIREDDY, K LEONID QUIROZ Unavailable Unavailable GANGIREDDY, K LEONID QUIROZ Unavailable Unavailable GANGIREDDY, K LEONID QUIROZ Unavailable Unavailable GANGIREDDY, K LEONID QUIROZ Unavailable Unavailable GANGIREDDY, K LEONID MD Unavailable Unavailable Karson HAWLEY MD Unavailable Unavailable Crystal Neal MD Unavailable Unavailable Crystal Nela MD Unavailable Unavailable Crystal Neal MD Unavailable Unavailable Skinny Neala Unavailable Unavailable VignSkinny krishnamurthya MD Unavailable Unavailable Skinny Neala MD Unavailable Unavailable Skinny Neala MD Unavailable Unavailable Crystal Neal MD Unavailable Unavailable Skinny Neala MD Unavailable Unavailable Skinny Neala MD Unavailable Unavailable Skinny Neala MD Unavailable Unavailable Crystal Neal MD Unavailable Unavailable Crystal Neal MD Unavailable Unavailable Crystal Neal MD Unavailable Unavailable Skinny Neala MD Unavailable Unavailable Skinny Neala MD Unavailable Unavailable Crystal Neal MD Unavailable Unavailable Gloria, Jaswinder MD Unavailable Unavailable Gloria, Jaswinder MD Unavailable Unavailable Gloria, Jaswinder MD Unavailable Unavailable Gloria, Jaswinder MD Unavailable Unavailable Gloria, Jaswinder MD Unavailable Unavailable Gloria, Jaswinder MD Unavailable Unavailable Gloria, Jaswinder MD Unavailable Unavailable Gloria, Jaswinder MD Unavailable Unavailable Gloria, Jaswinder MD Unavailable Unavailable Gloria, Jaswinder MD Unavailable Unavailable Gloria, Jaswinder MD Unavailable Unavailable Gloria, Jaswinder MD Unavailable Unavailable Gloria, Jaswinder MD Unavailable Unavailable Gloria, Jaswinder MD Unavailable Unavailable Gloria, Jaswinder MD Unavailable Unavailable Gloria, Jaswinder MD Unavailable Unavailable Gloria, Jaswinder MD Unavailable Unavailable ReggieeedLeo MD Unavailable Unavaila ble Leo Hylton MD Unavailable Unavaila Leo Arboleda MD Unavailable Unavaila Leo Arboleda MD Unavailable Unavaila ble Leo Hylton MD Unavailable Unavaila ble Leo Hylton MD Unavailable Unavaila Leo Arboleda MD Unavailable Unavaila ble Leo Hylton MD Unavailable Unavaila ble MigeedLeo MD Unavailable Unavaila ble Migeed, Leo Landin MD Unavailable Unavaila ble MigeedLeo MD Unavailable [...] Landin MD Unavailable Unavaila ble Migeed, Leo Landni MD Unavailable Unavaila ble Migeed, Leo Landin MD Unavailable Unavaila ble Migeed, Leo Landin MD Unavailable Unavaila ble Migeed, Leo Landin MD Unavailable Unavaila ble MigeedLeo MD Unavailable Unavaila ble MigeedLeo MD Unavailable Unavaila ble Migeed, Leo Landin MD Unavailable Unavaila ble MigeedLeo MD Unavailable Unavaila ble MigeedLeo MD Unavailable Unavaila ble Migeed, Leo Landin MD Unavailable Unavaila ble Migeed, Leo Landin MD Unavailable Unavaila ble Migeed, Leo Landin MD Unavailable Unavaila ble MigeedLeo MD Unavailable Unavaila ble MigeedLeo MD Unavailable Unavaila ble MigeedLeo MD Unavailable Unavaila ble MigeedLeo MD Unavailable Unavaila ble MigeedLeo MD Unavailable Unavaila ble MigeedLeo MD Unavailable Unavaila ble MigeedLeo MD Unavailable Unavaila ble MigeedLeo MD Unavailable Unavaila ble MigeedLeo MD Unavailable Unavaila ble MigeedLeo MD Unavailable Unavaila ble PEDRO, L HAIR [...] Unavailable PEDRO, L HAIR PA Unavailable Unavailable Иван FAITH MD Unavailable Unavailable Иван FAITH MD Unavailable Unavailable Иван FAITH MD Unavailable Unavailable Иван FAITH MD Unavailable Unavailable Иван FAITH MD Unavailable Unavailable Иван FAITH MD Unavailable Unavailable Иван FAITH MD Unavailable Unavailable Иван FAITH MD Unavailable Unavailable Иван FAITH MD Unavailable Unavailable Иван FAITH MD Unavailable Unavailable Иван FAITH MD Unavailable Unavailable Иван FAITH MD Unavailable Unavailable Иван FAITH MD Unavailable Unavailable Иван FAITH MD Unavailable Unavailable Иван FAITH MD Unavailable Unavailable Иван FAITH MD Unavailable Unavailable Иван FAITH MD Unavailable Unavailable Иван FAITH MD Unavailable Unavailable Иван FAITH MD Unavailable Unavailable Иван FAITH MD Unavailable Unavailable Иван FAITH MD Unavailable Unavailable Иван FAITH MD Unavailable Unavailable Иван FAITH MD Unavailable Unavailable Иван FAITH MD Unavailable Unavailable Иван FAITH MD Unavailable Unavailable DANNY, LILIANA Unavailable Unavailable MCKENNA, B QUINN MD Unavailable Unavailable MCKENNA, B QUINN MD Unavailable Unavailable MCKENNA, B QUINN MD Unavailable Unavailable MCKENNA, B QUINN MD Unavailable Unavailable MCKENNA, B QUINN MD Unavailable Unavailable MCKENNA, B QUINN MD Unavailable Unavailable MCKENNA, B QUINN MD Unavailable Unavailable MCKENNA, B QUINN MD Unavailable Unavailable MCKENNA, B QUINN MD Unavailable Unavailable MCKENNA, B QUINN MD Unavailable Unavailable MCKENNA, B QUINN MD Unavailable Unavailable MCKENNA, B QUINN MD Unavailable Unavailable MCKENNA, B QUINN MD Unavailable Unavailable MCKENNA, B QUINN MD Unavailable Unavailable MCKENNA, B QUINN MD Unavailable Unavailable MCKENNA, B QUINN MD Unavailable Unavailable MCKENNA, B QUINN MD Unavailable Unavailable MCKENNA, B QUINN MD Unavailable Unavailable MCKENNA, B QUINN MD Unavailable Unavailable MCKENNA, B QUINN MD Unavailable Unavailable MCKENNA, B QUINN MD Unavailable Unavailable MCKENNA, B QUINN MD Unavailable Unavailable MCKENNA, B QUINN MD Unavailable Unavailable MCKENNA, B QUINN MD Unavailable Unavailable MCKENNA, B QUINN MD Unavailable Unavailable MCKENNA, B QUINN MD Unavailable Unavailable Re-disclosure Warning The records that [...] is protected by Article 27-F of the [facility] Public Health law. If you continue you may have access to information: Regarding HIV / AIDS; Provided by facilities licensed or operated by the [facility] Office of Mental Health; or Provided by the [place] State Office for People With Developmental Disabilities. If such information is present, then the following [facility] mandated warning applies: This information has been [...] law may result in a fine or fpc sentence or both. A general authorization for the release of medical or other information is NOT sufficient authorization for further disc losure. Family History Family Member Name Family Member Gender Family Member Status Date o f Status Description Data Source(s) Unknown Male Problem [facility] ([facility]) Unknown Male Problem MEDENT ([facility]) [facility] Female Problem MED[facility] ([facility] Unknown Female Problem [facility] ([facility] Unknown Female Problem [facility] ([facility] Encounters Encounter Providers Location Date Indications Data Source(s ) Inpatient Attender: LEONID HAWLEY MD Attender: GRISELDA FAITH MDAttender: QUINN ANDRES MDAdmitter: QUINN ANDRES MDConsultant: Mushtaq Hylton MD [id number] 02/21/2021 05:48:00 AM [facility] - 02/22/2021 12:37:00 PM [facility] Patient discharged. [place] [address] [facility] [address] 01/19/2021 12:00:00 AM EDT eCW1 ([facility]) Unknown [address] [facility] [place] [address] 12/31/2020 12:00:00 AM EDT eCW1 ([facility]) Outpatient [address] [facility] [place] [address] 12/24/2020 12:00:00 AM EDT eCW1 ([facility]) Outpatient Attender: HAIR ADDISON Main Office 12/23/2020 1 1:15:00 AM EDT MEDENT ([facility]) Inpatient Attender: Jaswinder Sabillon ramirez: LILIANA DEANAttender: Crystal Neal MDAdmitter: Crystal Neal MDConsultant: Mushtaq Hylton MD [id number] 12/13/2020 12:38:00 PM EDT - 12/17/2020 10:44:00 PM EDT [facility] Patient discharged. [place] [address] [facility] [address] 10/15/2020 12:00:00 AM EDT eCW1 ([facility]) Unknown [address] [facility] [place] [address] 08/04/2020 12:00:00 AM EDT eCW1 ([facility]) Unknown [address] [facility] [place] [address] 07/30/2020 12:00:00 AM EDT eCW1 ([facility]) Unknown [address] [facility] [address] 07/30/2020 12:00:00 AM EDT eCW1 ([facility]) Outpatient Attender: HAIR ADDISON Main Office 07/29/2020 0 3:30:00 PM EDT MEDENT ([facility]) Unknown [address] [facility] [place] [address] 07/28/2020 12:00:00 AM EDT eCW1 ([facility]) [place] [address] [facility] [address] 07/28/2020 12:00:00 AM EDT eCW1 ([facility]) Outpatient [address] [facility] [place] [address] 07/23/2020 12:00:00 AM EDT eCW1 ([facility]) Outpatient Attender: HAIR ADDISON Main Office 04/27/2020 0 8:45:00 AM EST [facility] ([facility]) [place] [address] [facility] [address] 02/25/2020 12:00:00 AM EST eCW1 ([facility]) [place] [address] [facility] [address] 02/12/2020 12:00:00 AM EST eCW1 ([facility]) [place] [address] [facility] [address] 01/19/2020 12:00:00 AM EDT eCW1 ([facility]) [place] [address] [facility] [address] 01/15/2020 12:00:00 AM EDT eCW1 ([facility]) Immunizations Vaccine Date Status Description Data Source(s) influenza, recombinant, quadrIvalent,injectable, prese rvative free 01/19/2021 07:56:00 AM EDT completed eCW1 ([facility]) COVID-19 VACC,MRNA(MODERNA)/PF 08/23/2020 12:00:00 AM EDT completed [facility] COVID-19 VACCINE Moderna 08/23/2020 12:00:00 AM EDT completed [facility] Vaccine Series Complete: YESThis Data wa s Submitted to [facility] Via [employer]. COVID-19 VACCINE Moderna 07/25/2020 12:00:00 AM EDT completed [facility] Vaccine Series Complete: NOThis Data was Submitted to [facility] Via [employer]. COVID-19 VACC,MRNA(MODERNA)/PF 07/25/2020 12:00:00 AM EDT completed [facility] influenza, recombinant, quadrIvalent,injectable, prese rvative free 01/15/2020 07:34:00 AM EDT completed eCW1 ([facility]) influenza, recombinant, quadrIvalent,injectable, prese rvative free 01/15/2020 07:34:00 AM EDT completed eCW1 ([facility]) influenza, recombinant, quadrIvalent,injectable, prese rvative free 01/15/2020 07:34:00 AM EDT completed eCW1 ([facility]) influenza, recombinant, quadrIvalent,injectable, prese rvative free 01/15/2020 07:34:00 AM EDT completed eCW1 ([facility]) influenza, recombinant, quadrIvalent,injectable, prese rvative free 01/15/2020 07:34:00 AM EDT completed eCW1 ([facility]) influenza, recombinant, quadrIvalent,injectable, prese rvative free 01/15/2020 07:34:00 AM EDT completed eCW1 ([facility]) influenza, recombinant, quadrIvalent,injectable, prese rvative free 01/15/2020 07:34:00 AM EDT completed eCW1 ([facility]) influenza, recombinant, quadrIvalent,injectable, prese rvative free 01/15/2020 07:34:00 AM EDT completed eCW1 ([facility]) influenza, recombinant, quadrIvalent,injectable, prese rvative free 01/15/2020 07:34:00 AM EDT completed eCW1 ([facility]) influenza, recombinant, quadrIvalent,injectable, prese rvative free 01/15/2020 07:34:00 AM EDT completed eCW1 ([facility]) influenza, recombinant, quadrIvalent,injectable, prese rvative free 01/15/2020 07:34:00 AM EDT completed eCW1 ([facility]) influenza, recombinant, quadrIvalent,injectable, prese rvative free 01/15/2020 07:34:00 AM EDT completed eCW1 ([facility]) influenza, recombinant, quadrIvalent,injectable, prese rvative free 01/15/2020 07:34:00 AM EDT completed eCW1 ([facility]) influenza, recombinant, quadrIvalent,injectable, prese rvative free 01/15/2020 07:34:00 AM EDT completed eCW1 ([facility]) This CVX code allows reporting of a vacc ination when formulation is unknown (for example, when recording a Influenza vaccination when noted on a vaccination card) 01/08/2020 12:00:00 AM EDT completed <td ID="immun [id number]">Influenza (Unspecified)</td><td>01/08/2020</td><td></td> [facility] Medications Medication Brand Name Start Date Product Form Dose Route Admi nistrative Instructions Pharmacy Instructions Status Indications Reaction Description Data Source(s) Amiodarone hydrochloride 200 MG Oral Tablet amiodarone (PACERONE) tablet 400 mg amiodarone (PACERONE) tablet 400 mg 02/22/2021 01:00:00 PM EST 400 mg Oral completed 400 mg, Oral, Once, On Sun04/24/20 at 1300, For 1 dose [facility] Medication administered onsite Amiodarone hydrochloride 200 MG Oral Tablet amiodarone (PACERONE) 200 MG tablet amiodarone (PACERONE) 200 MG tablet 02/22/2021 12:00:00 AM EST 400 mg Oral active Take 2 tablets ( 400 mg total) by mouth 2 (two) times a day for 14 days [facility] 50 mg 02/22/2021 12:00:00 AM EST tablet extended release 24 hr 30 TAKE ONE TABLET BY MOUTH AT NIGHTLY TAKE ONE TABLET BY MOUTH AT NIGHTLY SOLD: 02/22/2021 [facility] Amiodarone hydrochloride 200 MG Oral Tablet AMIODARONE HCL 02/22/2021 12:00:00 AM EST tablet 56 TAKE TWO TABLETS BY MOUTH TW ICE A DAY FOR 14 DAYS TAKE TWO TABLETS BY MOUTH TWICE A DAY FOR 14 DAYS SOLD: 02/22/2021 [facility] 24 HR metoprolol succinate 50 MG Extende d Release Oral Tablet metoprolol succinate (TOPROL-XL) 50 MG 24 hr tablet metoprolol succinate (TOPROL-XL) 50 MG 24 hr tablet 02/22/2021 12:00:00 AM EST 50 mg Oral activ e Take 1 tablet (50 mg total) by mouth nightly [facility] 24 HR metoprolol succinate 50 MG Extende d Release Oral Tablet metoprolol succinate (TOPROL-XL) 24 hr tablet 50 mg metoprolol succinate (TOPROL-XL) 24 hr tablet 50 mg 02/21/2021 09:00:00 PM EST 50 mg Oral activ e 50 mg, Oral, Nightly, First dose on Sun02/21/21 at 2100 [facility] Medication administered onsite montelukast 10 MG Oral Tablet montelukast (SINGULAIR) tablet 10 mg montelukast (SINGULAIR) tablet 10 mg 02/21/2021 09:00:00 PM EST 10 mg Oral active 10 mg, Oral, Nightly, First dose on Sun02/21/21 at 2100 [facility] Medication administered onsite atorvastatin 80 MG Oral Tablet atorvastatin (LIPITOR) tablet 80 mg atorvastatin (LIPITOR) tablet 80 mg 02/21/2021 09:00:00 PM EST 80 mg Oral active 80 mg, Oral, Nightly, First dose on Sun02/21/21 at 2100 [facility] Medication administered onsite perflutren lipid microsphere (DEFINElement ID) 8.476 mg in 10 mL NS IV drug or medication 02/21/2021 12:26:20 PM EST mL Intravenous co mpleted 2-10 mL, Intravenous, Once as needed, to be used when clinically necessary, Starting on Sun02/21/21 at 1226, For 1 dose
To be given with signals collection technician at bedside for exam 1. Activate in VIALMIX agitator for 45 seconds 2. Withdraw 1.3 ml of activated perflutren suspension and dilute in 8.7 ml of 0.9% NS (Total volume = 10 ml) 3. Inject 2 ml slowly over 30 seconds. Repeat in 2 ml aliquots as needed. DO NOT EXCEED 10 ML TOTAL DOSE!
[facility] Medication administered onsite clopidogrel 75 MG Oral Tablet clopidogrel (PLAVIX) tab let 75 mg clopidogrel (PLAVIX) tablet 75 mg 02/21/2021 09:00:00 AM EST 75 mg Oral active 75 mg, Oral, Daily, First dose on Sun02/21/21 at 0900 [facility] Medication administered onsite Aspirin 81 MG Delayed Release Oral Tablet aspirin EC t ablet 81 mg aspirin EC tablet 81 mg 02/21/2021 09:00:00 AM EST 81 mg Oral activ e 81 mg, Oral, Daily, First dose on Sun02/21/21 at 0900 [facility] Medication administered onsite heparin (porcine) injection 5,000 Units [id number] 02/22/20 09:00:00 AM EST 5000 U Subcutaneous active 5,000 Units , Subcutaneous, Every 12 hours (scheduled), First dose on Sun02/21/21 at 0900
If platelet count is less than 100,000 or hematocrit is less than 30, or if there is a 5 point decrease in hematocrit, do not give the dose and call physician/designee.
[facility] Medication administered onsite Insulin Lispro 100 UNT/ML Injectable Michelle ution insulin lispro (HumaLOG) injection 1-6 Units insulin lispro (HumaLOG) injection 1-6 Units 08:00:00 AM EST U Subcutaneous active 1-6 Units, Subcutaneous, MEALSS, First dose on Sun02/21/21 at 0800
Frail 3 units Nutritional and Correction Insulin Scale Blood Glucose (mg/dl) <70 start hypoglycemia protocol Glucose &nbsp ; Eats >=50% Eats &l t;50% Eats Nothing (mg/dl) of meal of meal or NPO &nb sp; 70- 120 2 units 1 units 0 units 121-170 & nbsp; 3 units 2 units 0 units 171-220 &nbsp ; 4 units 2 units 1 units 221-270 &am p;nbsp; 4 units 3 units 1 units 271-320 &n bsp; 5 units 3 units 2 units 321- 370 5 units 4 units 2 units 371- 420 6 units 4 units 3 units >420 call MD 6 units 5 units 3 units Test glucose within 30 minutes of insulin administration. Administer insulin within 15 minutes (before or after) of t he patient starting to eat. For patients that are NPO, use the NPO (correction) scale to cover POC glucose at 08:00, 12:00, 17:00.
[facility] Medication administered onsite Albuterol 0.833 MG/ML / Ipratropium Brom franck 0.167 MG/ML Inhalant Solution ipratropium-albuterol (DUO-NEB) 0.5-2.5 mg/mL nebulizer solution 3 mL ipratropium-albuterol (DUO-NEB) 0.5-2.5 mg/mL nebulizer solution 3 mL 02/21/2021 07:24:50 AM EST 3 mL Inhalation active 3 mL, Inhalation, Every 6 hours PRN, wheezing, Starting on Sun02/21/21 at 0724 [facility] Medication administered onsite amiodarone HCl 900 mg in dextrose 5 % 500 mL infusion 02/21/2021 07:00:00 AM EST mg/min Intravenous aborted 0.5- 1 mg/min (16.6667-33.3333 mL/hr, rounded to 16.7-33.3 mL/hr), Intravenous, Continuous, Starting on Sun02/21/21 at 0700, Until Sun02/22/21 at 1124, at 16.7-33.3 mL/hr [facility] Medication administered onsite normal saline flush 0.9 % injection 3 mL [id number] 02/21/2021 07:00:00 AM EST 3 mL Intravenous active 3 mL , Intravenous, Every 8 hours (scheduled), First dose on Sun02/21/21 at 0700
flush per protocol, D/C Main IV fluid if appropriate
[facility] Medication administered onsite normal saline flush 0.9 % injection 3 mL [id number] 02/21/2021 07:00:00 AM EST 3 mL Intravenous active 3 mL , Intravenous, Every 8 hours (scheduled), First dose on Sun02/21/21 at 0700
Rapid push positive pressure flushing shall be performed with a 10 cc normal saline syringe to check the PATENCY of a PIV site prior to any infusion therapy initiation unless resistance is met.
[facility] Medication administered onsite Albuterol 0.83 MG/ML Inhalant Solution a lbuterol (PROVENTIL) nebulizer solution 2.5 mg albuterol (PROVENTIL) nebulizer solution 2.5 mg 2020 06:33:07 AM EST 2.5 mg active 2.5 mg, Nebulization, RT every 6 hours as needed, wheezing, Starting on Sun02/21/21 at 0633 [facility] Medication administered onsite ondansetron (ZOFRAN) injection 4 mg [id number] 02/21/2021 05:55:1 2 AM EST 4 mg Intravenous active 4 mg, In travenous, Every 6 hours PRN, nausea, vomiting, Starting on Sun02/21/21 at 0555 [facility] Medication administered onsite 15 mg 01/24/2021 12:00:00 AM EDT tablet [...] 12:00:00 AM EDT active MEDENT ([facility]) Furosemide 40 MG Oral Tablet Furosemide 12/22/2020 12:00:00 AM EDT ORAL active [facility] ([facility]) clopidogrel 75 MG Oral Tablet Clopidogrel Bisulfate 12/22/2020 1 2:00:00 AM EDT ORAL active MEDENT ( [facility]) Metformin hydrochloride 500 MG Oral Tablet Metformin HCL 12/22/2020 12:00:00 AM EDT ORAL active [facility] ([facility]) 40 mg 12/18/2020 12:00:00 AM EDT tablet 60 TAKE ONE TABLET BY MOUTH TWICE A DAY TAKE ONE TABLET BY MOUTH TWICE A DAY SOLD: 12/18/2020 [facility] 75 mg 12/18/2020 12:00:00 AM EDT tablet 30 TAKE ONE TABLET BY MOUTH EVERY DAY TAKE ONE TABLET BY MOUTH EVERY DAY SOLD: 12/18/2020 [facility] lidocaine 1 % injection [id number] 12/17/2020 05:16:56 PM EDT active As needed, Starting on Sun at 1716, Intra-Procedure [facility] Medication administered onsite Cefazolin 1000 MG Injection ceFAZolin (ANCEF) injectio n ceFAZolin (ANCEF) injection 12/17/2020 05:05:00 PM EDT active As needed, Starting on Sun12/17/20 at 1705, Intra-Procedure [facility] Medication administered onsite Furosemide 40 MG Oral Tablet furosemide (LASIX) tablet 40 mg furosemide (LASIX) tablet 40 mg 12/17/2020 05:00:00 PM EDT 40 mg Oral activ e 40 mg, Oral, LOOPBID, First dose on Sun12/17/20 at 1700 [facility] Medication administered onsite clopidogrel 75 MG Oral Tablet clopidogrel (PLAVIX) 75 MG tablet clopidogrel (PLAVIX) 75 MG tablet 12/17/2020 12:00:00 AM EDT 75 mg Oral active Take 1 tablet (75 mg total) by mouth daily [facility] Furosemide 40 MG Oral Tablet furosemide (LASIX) 40 MG tablet furosemide (LASIX) 40 MG tablet 12/17/2020 12:00:00 AM EDT 40 mg Oral activ e Take 1 tablet (40 mg total) by mouth Twice Daily for Loop Diuretics [facility] iopamidol (ISOVUE-370) 76 % [id number] 12/15/2020 05:24:15 PM EDT active As needed, Starting on Sun12/15/20 at 1724, Intra-Proce dure [facility] Medication administered onsite 1 ML heparin sodium, porcine 1000 UNT/ML Injection hep quentin (porcine) injection heparin (porcine) injection 12/15/2020 05:19:28 PM EDT active As needed, Starting on Sun12/15/20 at 1719, Intra-Procedure [facility] Medication administered onsite 4 ML Verapamil hydrochloride 2.5 MG/ML Injection verap [place] (ISOPTIN) injection verapamil (ISOPTIN) injection 12/15/2020 05:19:13 PM EDT active As needed, Starting on Sun12/15/20 at 1719, Intra-Procedure [facility] Medication administered onsite lidocaine 1 % injection [id number] 12/15/2020 05:17:03 PM EDT active As needed, Starting on Sun 1 at 1717, Intra-Procedure [facility] Medication administered onsite 2 ML Midazolam 1 MG/ML Injection midazolam (VERSED) in jection midazolam (VERSED) injection 12/15/2020 05:16:45 PM EDT active As needed, Starting on Sun12/15/20 at 1716, Intra-Procedure [facility] Medication administered onsite fentaNYL Citrate (PF) (SUBLIMAZE) injection [id number] 12/15/2020 05:16:30 PM EDT active As neede d, Starting on Sun12/15/20 at 1716, Intra-Procedure [facility] Medication administered onsite normal saline flush 0.9 % injection 3 mL [id number] 12/15/2020 03:00:00 PM EDT 3 mL Intravenous aborted 3 mL , Intravenous, PROTOCOL, First dose on Sun12/15/20 at 1500, Pre-op
flush per protocol, D/C Main IV fluid if appropriate
[facility] Medication administered onsite sodium chloride 0.9% (NS) infusion [id number] 12/15/2020 02:00:00 PM EDT 100 mL/h Intravenous aborted at 100 m L/hr, 100 mL/hr, Intravenous, Continuous, Starting on Sun12/15/20 at 1400, Pre-op
Start two hours prior to scheduled start time
[facility] Medication administered onsite Acetaminophen 325 MG Oral Tablet acetaminophen (TYLENO L) 325 MG tablet 650 mg acetaminophen (TYLENOL) 325 MG tablet 650 mg 12/15/2020 12:45:21 PM EDT 650 mg Oral active 650 mg, Or al, Every 4 hours PRN, headaches, and non cardiac pain, Starting on Sun12/15/20 at 1245, Pre-op
"Maximum dose of acetaminophen is 4,000 mg from all sources in 24 hours."
[facility] Medication administered onsite Bisoprolol Fumarate 5 MG Oral Tablet bisoprolol (ZEBET A) tablet 2.5 mg bisoprolol (ZEBETA) tablet 2.5 mg 12/15/2020 02:00:00 AM EDT 2.5 mg Oral completed 2.5 mg, Oral, Once, On Sun 1 at 0200, For 1 dose [facility] Medication administered onsite clopidogrel 75 MG Oral Tablet clopidogrel (PLAVIX) tab let 75 mg clopidogrel (PLAVIX) tablet 75 mg 12/14/2020 09:00:00 AM EDT 75 mg Oral active 75 mg, Oral, Daily, First dose on Sun12/14/20 at 0900 [facility] Medication administered onsite Aspirin 81 MG Chewable Tablet aspirin chewable tablet 81 mg aspirin chewable tablet 81 mg 12/14/2020 09:00:00 AM EDT 81 mg Oral activ e 81 mg, Oral, Daily, First dose on Sun12/14/20 at 0900 [facility] Medication administered onsite acetylcysteine (ACETADOTE) 9,460 mg in dextrose 5 % 1,000 mL infusion 12/14/2020 02:00:00 AM EDT 100 mg/kg Intravenous complet ed 9,460 mg (100 mg/kg 94.6 kg), Intravenous, Administer over 16 Hours, Once, On Sun12/14/20 at 0200, For 1 dose [facility] Medication administered onsite acetylcysteine (ACETADOTE) 4,740 mg in dextrose 5 % 500 mL i nfusion 12/13/2020 10:00:00 PM EDT 50 mg/kg Intravenous completed 4,740 mg (rounded from 4,730 mg = 50 mg/kg 94.6 kg), Intravenous, Administer over 4 Hours, Once, On Sun12/13/20 at 2200, For 1 dose [facility] Medication administered onsite montelukast 10 MG Oral Tablet montelukast (SINGULAIR) tablet 10 mg montelukast (SINGULAIR) tablet 10 mg 12/13/2020 09:00:00 PM EDT 10 mg Oral active 10 mg, Oral, Nightly, First dose on Sun12/13/20 at 2100 [facility] Medication administered onsite acetylcysteine (ACETADOTE) 14,200 mg in dextrose 5 % 200 mL infusion 12/13/2020 09:00:00 PM EDT 150 mg/kg Intravenous complet ed 14,200 mg (rounded from 14,190 mg = 150 mg/kg 94.6 kg), Intravenous, Administer over 1 Hours, Once, On Sun12/13/20 at 2100, For 1 dose [facility] Medication administered onsite Insulin Lispro 100 UNT/ML Injectable Michelle ution insulin lispro (HumaLOG) injection 1-4 Units insulin lispro (HumaLOG) injection 1-4 Units 05:00:00 PM EDT U Subcutaneous active 1-4 [...] cover POC glucose at 08:00, 12:00, 17:00.
[facility] Medication administered onsite normal saline flush 0.9 % injection 3 mL [id number] 12/13/2020 03:00:00 PM EDT 3 mL Intravenous aborted 3 mL , Intravenous, PROTOCOL, First dose on Sun12/13/20 at 1500
flush per protocol, D/C Main IV fluid if appropriate
[facility] Medication administered onsite normal saline flush 0.9 % injection 3 mL [id number] 12/13/2020 02:00:00 PM EDT 3 mL Intravenous active 3 mL , Intravenous, Every 8 hours (scheduled), First dose on Sun12/13/20 at 1400
flush per protocol, D/C Main IV fluid if appropriate
[facility] Medication administered onsite Bisoprolol Fumarate 5 MG Oral Tablet bisoprolol (ZEBET A) tablet 5 mg bisoprolol (ZEBETA) tablet 5 mg 12/13/2020 02:00:00 PM EDT 5 mg Oral active 5 mg, Oral, Daily, First dose on Sun12/13/20 at 1400
Hold for manual SBP < 110, HR < 65
[facility] Medication administered onsite perflutren lipid microsphere (DEFINITY) 8.476 mg in 10 mL NS IV drug or medication 12/13/2020 01:24:55 PM EDT mL Intravenous co mpleted 2-10 mL, Intravenous, Once as needed, to be used when clinically necessary, Starting on Sun12/13/20 at 1324, For 1 dose
To be given with signals collection technician at bedside for exam 1. Activate in VIALMIX agitator for 45 seconds 2. Withdraw 1.3 ml of activated perflutren suspension and dilute in 8.7 ml of 0.9% NS (Total volume = 10 ml) 3. Inject 2 ml slowly over 30 seconds. Repeat in 2 ml aliquots as needed. DO NOT EXCEED 10 ML TOTAL DOSE!
[facility] Medication administered onsite Albuterol 0.83 MG/ML Inhalant Solution a lbuterol (PROVENTIL) nebulizer solution 2.5 mg albuterol (PROVENTIL) nebulizer solution 2.5 mg 2020 01:19:02 PM EDT 2.5 mg active 2.5 mg, Nebulization, RT 4 times daily as needed, wheezing, Starting on Sun12/13/20 at 1319 [facility] Medication administered onsite Nitroglycerin 0.4 MG Sublingual Tablet n itroglycerin (NITROSTAT) SL tablet 0.4 mg nitroglycerin (NITROSTAT) SL tablet 0.4 mg 12/13/2020 01:16:55 P M EDT 0.4 mg Sublingual active 0.4 mg, S ublingual, Every 5 min PRN, chest pain, Starting on Sun12/13/20 at 1316
May administer up to 3 doses per episode.
[facility] Medication administered onsite 500 ML heparin sodium, [...] 1 unit/kg/hr IV58.1 - 87 Therapeutic, No Cohldy77.1 - 97 Decrease infusion 1 unit/kg/hr IV [...] single port tubing (SmartSite Infusion Set ref [id number]). Medication and tubing is to be discarded if infusion off for 4 hours.
[facility] Medication administered onsite 1 ML heparin sodium, porcine 1000 UNT/ML Injection heparin (porcine) injection 100-5,000 Units heparin (porcine) injection 100-5,000 Units 12/13/2020 12:44:00 PM EDT U Intravenous active 100- 5,000 Units, Intravenous, As needed, other, Starting on Sun12/13/20 at 1244
Round dose to nearest 100 units aPTT: < 34 &n bsp; Bolus: 60 units/kg IV (Maximum bolus: 5,000 units) 34 - 50 Bolus: 30 units/kg IV (Maximum bolus: 5,000 units)
[facility] Medication administered onsite BLOOD SUGAR DIAGNOSTIC 12/11/2020 [...] TABLET BY MOUTH ONCE DAILY SOLD: 01/27/2021 [facility] 5 mg 07/31/2020 12:00:00 AM EDT tablet 30 TAKE ONE TABLET BY MOUTH ONCE DAILY TAKE ONE TABLET BY MOUTH ONCE DAILY SOLD: 10/29/2020 [facility] 33 gauge 07/31/2020 12:00:00 AM EDT misc 100 TEST DAILY DIRECTED TEST DAILY DIRECTED SOLD: 07/31/2020 [facility] Lancets - Lancets - 07/30/2020 12:00:00 AM EDT act helio Lancets - eCW1 ([facility]) Blood Glucose Monitor System w/Device Blood Glucose Monitor System w/Device 07/30/2020 12:00:00 AM EDT active Blood Glucose Monitor System w/Device eCW1 ([facility]) Blood Glucose Test - Blood Glucose Test - 07/30/2020 12:00:00 AM EDT active Blood Glucose Test - eCW1 ([facility]) Blood Glucose Monitor System w/Device Blood Glucose Monitor System w/Device 07/30/2020 12:00:00 AM EDT active Blood Glucose Monitor System w/Device eCW1 ([facility]) Blood Glucose Monitor System w/Device Blood Glucose Monitor System w/Device 07/30/2020 12:00:00 AM EDT active Blood Glucose Monitor System w/Device eCW1 ([facility]) Blood Glucose Test - Blood Glucose Test - 07/30/2020 12:00:00 AM EDT active Blood Glucose Test - eCW1 ([facility]) Lancets - Lancets - 07/30/2020 12:00:00 AM EDT act helio Lancets - eCW1 ([facility]) Blood Glucose Monitor System w/Device Blood Glucose Monitor System w/Device 07/30/2020 12:00:00 AM EDT active Blood Glucose Monitor System w/Device eCW1 ([facility]) FreeStyle Lite Test - FreeStyle Lite Test - 07/30/2020 12:00:00 AM EDT active FreeStyle Lite Test - eCW1 ( [facility]) Blood Glucose Test - Blood Glucose Test - 07/30/2020 12:00:00 AM EDT active Blood Glucose Test - eCW1 ([facility]) Lancets - Lancets - 07/30/2020 12:00:00 AM EDT act helio Lancets - eCW1 ([facility]) Blood Glucose Test - Blood Glucose Test - 07/30/2020 12:00:00 AM EDT active Blood Glucose Test - eCW1 ([facility]) Lancets - Lancets - 07/30/2020 12:00:00 AM EDT act helio Lancets - eCW1 ([facility]) Blood Glucose Test - Blood Glucose Test - 07/30/2020 12:00:00 AM EDT active Blood Glucose Test - eCW1 ([facility]) Lancets - Lancets - 07/30/2020 12:00:00 AM EDT act helio Lancets - eCW1 ([facility]) Blood Glucose Test - Blood Glucose Test - 07/30/2020 12:00:00 AM EDT active Blood Glucose Test - eCW1 ([facility]) Blood Glucose Monitor System w/Device Blood Glucose Monitor System w/Device 07/30/2020 12:00:00 AM EDT active Blood Glucose Monitor System w/Device eCW1 ([facility]) FreeStyle Lite Test - FreeStyle Lite Test - 07/30/2020 12:00:00 AM EDT active FreeStyle Lite Test - eCW1 ( [facility]) FreeStyle Lite Test - FreeStyle Lite Test - 07/30/2020 12:00:00 AM EDT active FreeStyle Lite Test - eCW1 ( [facility]) Blood Glucose Monitor System w/Device Blood Glucose Monitor System w/Device 07/30/2020 12:00:00 AM EDT active Blood Glucose Monitor System w/Device eCW1 ([facility]) Lancets - Lancets - 07/30/2020 12:00:00 AM EDT act helio Lancets - eCW1 ([facility]) FreeStyle Lite Test - FreeStyle Lite Test - 07/30/2020 12:00:00 AM EDT active FreeStyle Lite Test - eCW1 ( [facility]) FreeStyle Lite Test - FreeStyle Lite Test - 07/30/2020 12:00:00 AM EDT active FreeStyle Lite Test - eCW1 ( [facility]) Lancets - Lancets - 07/30/2020 12:00:00 AM EDT act helio Lancets - eCW1 ([facility]) FreeStyle Lite Test - FreeStyle Lite Test - 07/30/2020 12:00:00 AM EDT active FreeStyle Lite Test - eCW1 ( [facility]) Lancets - Lancets - 07/30/2020 12:00:00 AM EDT act helio Lancets - eCW1 ([facility]) FreeStyle Lite Test - FreeStyle Lite Test - 07/30/2020 12:00:00 AM EDT active FreeStyle Lite Test - eCW1 ( [facility]) FreeStyle Lite Test - FreeStyle Lite Test - 07/30/2020 12:00:00 AM EDT active FreeStyle Lite Test - eCW1 ( [facility]) Blood Glucose Test - Blood Glucose Test - 07/30/2020 12:00:00 AM EDT active Blood Glucose Test - eCW1 ([facility]) Blood Glucose Monitor System w/Device Blood Glucose Monitor System w/Device 07/30/2020 12:00:00 AM EDT active Blood Glucose Monitor System w/Device eCW1 ([facility]) Blood Glucose Monitor System w/Device Blood Glucose Monitor System w/Device 07/30/2020 12:00:00 AM EDT active Blood Glucose Monitor System w/Device eCW1 ([facility]) Blood Glucose Test - Blood Glucose Test - 07/30/2020 12:00:00 AM EDT active Blood Glucose Test - eCW1 ([facility]) 24 HR Metformin hydrochloride 500 MG [...] AM EDT ORAL completed MEDENT ([facility]) Bisoprolol Fumarate 5 MG Oral Tablet Bisoprolol Fumarate 12:00:00 AM EDT ORAL active [facility] ([facility]) 24 HR Metformin hydrochloride 500 MG Extended Release Oral T ablet METFORMIN HCL 07/29/2020 12:00:00 AM EDT tablet extended release 24 hr 60 TAKE 2 TABLETS BY MOUTH WITH EVENING MEAL TAKE 2 TABLETS BY MOUTH WITH EVENING MEAL SOLD: 10/28/2020 [facility] 500 mg 07/29/2020 12:00:00 AM EDT [...] MetFO RMIN HCl ER 500 MG eCW1 ([facility]) 24 HR Metformin hydrochloride 500 MG Ext ended Release Oral Tablet MetFORMIN HCl ER 500 MG MetFORMIN HCl ER 500 MG 07/28/2020 12:00:00 AM EDT 2.0 {tablet_with_evening_meal} active MetFO RMIN HCl ER 500 MG eCW1 ([facility]) 24 HR Metformin hydrochloride 500 MG Ext ended Release Oral Tablet MetFORMIN HCl ER 500 MG MetFORMIN HCl ER 500 MG 07/28/2020 12:00:00 AM EDT 2.0 {tablet_with_evening_meal} active MetFO RMIN HCl ER 500 MG eCW1 ([facility]) 24 HR Metformin hydrochloride 500 MG Ext ended Release Oral Tablet MetFORMIN HCl ER 500 MG MetFORMIN HCl ER 500 MG 07/28/2020 12:00:00 AM EDT 2.0 {tablet_with_evening_meal} active MetFO RMIN HCl ER 500 MG eCW1 ([facility]) 24 HR Metformin hydrochloride 500 MG Ext ended Release Oral Tablet metFORMIN HCl ER 500 MG metFORMIN HCl ER 500 MG 07/28/2020 12:00:00 AM EDT 2.0 {tablet_with_evening_meal} active metFO RMIN HCl ER 500 MG eCW1 ([facility]) 24 HR Metformin hydrochloride 500 MG Ext ended Release Oral Tablet MetFORMIN HCl ER 500 MG MetFORMIN HCl ER 500 MG 07/28/2020 12:00:00 AM EDT 2.0 {tablet_with_evening_meal} active MetFO RMIN HCl ER 500 MG eCW1 ([facility]) 24 HR Metformin hydrochloride 500 MG Ext ended Release Oral Tablet MetFORMIN HCl ER 500 MG MetFORMIN HCl ER 500 MG 07/28/2020 12:00:00 AM EDT 2.0 {tablet_with_evening_meal} active MetFO RMIN HCl ER 500 MG eCW1 ([facility]) montelukast 10 MG Oral Tablet MONTELUKAST [...] ORAL active [facility] ([facility]) Dorothy Connellyatro 04/26/2020 12:00:00 AM EST ORAL act helio MED[facility] ([facility]) Metformin hydrochloride 850 MG Oral Tablet METFORMIN [...] TABLET BY MOUTH EVERY DAY SOLD: 05/31/2020 [facility] 81 mg 02/26/2020 12:00:00 AM EST tablet,delayed release (DR/EC) 30 TAKE ONE TABLET BY MOUTH EVERY DAY TAKE ONE TABLET BY MOUTH EVERY DAY SOLD: 03/30/2020 [facility] 10 mg 02/26/2020 12:00:00 AM EST tablet 30 TAKE ONE TABLET BY MOUTH EVERY DAY TAKE ONE TABLET BY MOUTH EVERY DAY SOLD: 06/30/2020 [facility] 81 mg 02/26/2020 12:00:00 AM EST tablet,delayed release (DR/EC) 30 TAKE ONE TABLET BY MOUTH EVERY DAY TAKE ONE TABLET BY MOUTH EVERY DAY SOLD: 02/28/2020 [facility] 81 mg 02/26/2020 12:00:00 AM EST tablet,delayed release (DR/EC) 30 TAKE ONE TABLET BY MOUTH EVERY DAY TAKE ONE TABLET BY MOUTH EVERY DAY SOLD: 07/28/2020 [facility] 81 mg 02/26/2020 12:00:00 AM EST tablet,delayed release (DR/EC) 30 TAKE ONE TABLET BY MOUTH EVERY DAY TAKE ONE TABLET BY MOUTH EVERY DAY SOLD: 06/30/2020 [facility] Metformin hydrochloride 850 MG Oral Tablet METFORMIN HCL 02/26/2020 12:00:00 AM EST tablet 30 TAKE ONE TABLET BY MOUTH BEAN RY DAY WITH FOOD TAKE ONE TABLET BY MOUTH EVERY DAY WITH FOOD SOLD: 05/31/2020 [facility] atorvastatin 80 MG Oral Tablet ATORVASTATIN CALCIUM 02/25/2020 1 2:00:00 AM EST tablet 90 TAKE ONE TABLET BY MOUTH EVERY D AY TAKE ONE TABLET BY MOUTH EVERY DAY SOLD: 02/28/2020 [facility] 80 mg 02/25/2020 12:00:00 AM EST tablet 30 TAKE ONE TABLET BY MOUTH EVERY DAY TAKE ONE TABLET BY MOUTH EVERY DAY SOLD: 06/30/2020 [facility] atorvastatin 80 MG Oral Tablet ATORVASTATIN CALCIUM 02/25/2020 1 2:00:00 AM EST tablet 30 TAKE ONE TABLET BY MOUTH EVERY D AY TAKE ONE TABLET BY MOUTH EVERY DAY SOLD: 05/31/2020 [facility] 80 mg 02/25/2020 12:00:00 AM EST tablet 30 TAKE ONE TABLET BY MOUTH EVERY DAY TAKE ONE TABLET BY MOUTH EVERY DAY SOLD: 07/28/2020 [facility] Steglatro 15 MG Steglatro 15 MG 02/20/2020 12:00:00 AM EST 1.0 { tablet} active Steglatro 15 MG eCW1 ([facility]) Steglatro 15 MG Steglatro 15 MG 02/20/2020 12:00:00 AM EST 1.0 { tablet} active Steglatro 15 MG eCW1 ([facility]) montelukast 10 MG Oral Tablet MONTELUKAST [...] 1.0 {tablet} active Singulair 10 MG eCW1 ([facility]) montelukast 10 MG Oral Tablet [Singulair] Singulair 10 MG Si ngulair 10 MG 02/12/2020 12:00:00 AM EST 1.0 {tablet} active Singulair 10 MG eCW1 ([facility]) 15 mg 01/29/2020 12:00:00 AM EDT [...] { tablet} active Steglatro 15 MG eCW1 ([facility]) Steglatro 15 MG Steglatro 15 MG 01/28/2020 12:00:00 AM EDT 1.0 { tablet} active Steglatro 15 MG eCW1 ([facility]) Steglatro 15 MG Steglatro 15 MG 01/28/2020 12:00:00 AM EDT 1.0 { tablet} active Steglatro 15 MG eCW1 ([facility]) Steglatro 15 MG Steglatro 15 MG 01/28/2020 12:00:00 AM EDT 1.0 { tablet} active Steglatro 15 MG eCW1 ([facility]) montelukast 10 MG Oral Tablet MONTELUKAST [...] 1.0 {tablet} active Singulair 10 MG eCW1 ([facility]) OneTouch Ultra II Test Strips UNK 01/15/2020 12:00:00 AM EDT active OneTouch Ultra II Test Strips eCW1 ([facility]) OneTouch Ultra II Test Strips UNK 01/15/2020 12:00:00 AM EDT active OneTouch Ultra II Test Strips eCW1 ([facility]) OneTouch Ultra II Test Strips UNK 01/15/2020 12:00:00 AM EDT active OneTouch Ultra II Test Strips eCW1 ([facility]) OneTouch Ultra II Test Strips UNK 01/15/2020 12:00:00 AM EDT active OneTouch Ultra II Test Strips eCW1 ([facility]) montelukast 10 MG Oral Tablet [Singulair] Singulair 10 MG Si ngulair 10 MG 01/15/2020 12:00:00 AM EDT 1.0 {tablet} active Singulair 10 MG eCW1 ([facility]) 90 mcg/actuation 01/15/2020 12:00:00 AM EDT HFA aerosol inha ler 18 INHALE 2 PUFFS BY MOUTH EVERY 4 HOURS NEEDED INHALE 2 PUFFS BY MOUTH EVERY 4 HOURS NEEDED SOLD: 09/07/2020 [facility] empagliflozin 10 MG Oral Tablet [Jardiance] Jardiance 10 MG Jardiance 10 MG 01/15/2020 12:00:00 AM EDT 1.0 {tablet} active Jardiance 10 MG eCW1 ([facility]) OneTouch Ultra II Test Strips UNK 01/15/2020 12:00:00 AM EDT active OneTouch Ultra II Test Strips eCW1 ([facility]) empagliflozin 10 MG Oral Tablet [Jardiance] Jardiance 10 MG Jardiance 10 MG 01/15/2020 12:00:00 AM EDT 1.0 {tablet} active Jardiance 10 MG eCW1 ([facility]) OneTouch Ultra II Test Strips UNK 01/15/2020 12:00:00 AM EDT active OneTouch Ultra II Test Strips eCW1 ([facility]) BLOOD SUGAR DIAGNOSTIC 01/15/2020 12:00:00 AM EDT [...] ONE TABLET BY MOUTH BEAN RY WITH A MEAL TAKE ONE TABLET BY [...] ONE TABLET BY MOUTH BEAN RY WITH A MEAL TAKE ONE TABLET BY [...] by mouth 2 (two) times a day [facility] Atenolol 50 MG Oral Tablet atenolol (TENORMIN) 50 MG t ablet atenolol (TENORMIN) 50 MG tablet 50 mg Oral aborted Ron e 50 mg by mouth 2 (two) times a day [facility] Metformin hydrochloride 850 MG Oral Tablet metFORMIN ( GLUCOPHAGE) 850 MG tablet metFORMIN (GLUCOPHAGE) 850 MG tablet 850 mg Oral a borted Take 850 mg by mouth daily with breakfast [facility] PARoxetine (PAXIL) 20 MG tablet [id number] 20 mg Oral aborted Take 20 mg by mouth every morning [facility] Bisoprolol Fumarate 5 MG Oral Tablet bisoprolol (ZEBET A) 5 MG tablet bisoprolol (ZEBETA) 5 MG tablet 5 mg Oral aborted Ron e 5 mg by mouth nightly [facility] Amlodipine 10 MG Oral Tablet amLODIPine (NORVASC) 10 M G tablet amLODIPine (NORVASC) 10 MG tablet 10 mg Oral aborted T charla 10 mg by mouth daily [facility] clopidogrel 75 MG Oral Tablet clopidogrel (PLAVIX) 75 MG tablet clopidogrel (PLAVIX) 75 MG tablet 75 mg Oral aborted Ta ke 75 mg by mouth daily [facility] Ibuprofen 200 MG Oral Tablet ibuprofen (ADVIL,MOTRIN) 200 MG tablet ibuprofen (ADVIL,MOTRIN) 200 MG tablet 200 mg Oral aborted Take 200 mg by mouth every 6 (six) hours as needed for pain [facility] Chlorthalidone 25 MG Oral Tablet chlorthalidone (HYGRO TEN) 25 MG tablet chlorthalidone (HYGROTEN) 25 MG tablet 12.5 mg Oral aborted Take 12.5 mg by mouth daily [facility] Insurance Providers Payer name Policy type / Coverage type Policy ID Covered alliance party ID Covered alliance party's relationship to alvarez Policy Alvarez Plan Information [facility] Commercial [id number] Self 1 [id number] [facility] Commercial [id number] Self 1 [id number] [facility] Commercial [id number] Self [facility] MEDICAID [id number] Alexandre [id number] [facility] MEDICAID [id number] ANS-Medicaid [id number] ANSI-Medicaid [id number] [facility] (O) [id number] Self [id number] [facility] Health Maintenance Organization (HMO) [id number] Self [facility]) O [id number] S [id number] SELF PAY UNAVAILABLE UNAVAILA BLE UN[employer] AMERICHOICE XIX O [id number] 18 [id number] BLUE CROSS BLUE SHIELD-CLINIC [id number] 18 [id number] UN COMMUNITY PLAN [facility] [id number] SP [id number] MEDICAID - CLINIC [id number] [id number] [facility] COMMUN[facility] [id number] SP [id number] [facility](MCAID) O [id number] S [id number] ANSI-Medicaid [id number] [facility] [id number] Self 1 [id number] Problems, Conditions, and Diagnoses Code Display Name Description Problem Type Effective Dates Data Source(s) I47.2 Ventricular tachycardia Ventricular tachycardia Diagno sis 02/21/2021 05:48:00 AM EST [facility] I25.5 Ischemic cardiomyopathy Ischemic cardiomyopathy Diagno sis 12/13/2020 12:38:00 PM EDT [facility] I24.9 Acute ischemic heart disease, unspecifie d Acute ischemic heart disease, unspecifie Diagnosis 12/13/2020 12:38:00 PM EDT [facility] N17.9 Acute kidney failure, unspecified Acute kidney f ailure, unspecified Diagnosis 12/13/2020 12:38:00 PM EDT [facility] R77.8 Other specified abnormalities of plasma proteins Other specified abnormalities of plasma Diagnosis 12/13/2020 12:38:[address] [facility] I21.4 Non-ST elevation (NSTEMI) myocardial inf arction Non-ST elevation (NSTEMI) myocardial inf Diagnosis 12/13/2020 12:38:00 PM EDT [facility] I10 Hypertension Hypertension [id number] 02/21/2021 12:00:00 A M [facility] I25.10 Coronary artery disease Coronary artery disease [id number] 02/21/2021 12:00:00 AM [facility] Z45.02 Defibrillator discharge Defibrillator discharge [id number] 02/21/2021 12:00:00 AM [facility] I47.2 Paroxysmal ventricular tachycardia Paroxysmal ve ntricular tachycardia Problem 12/23/2020 12:00:00 AM EDT [facility] ([facility]) Z95.810 Automatic implantable cardiac defibrilla tor in situ Automatic implantable cardiac defibrillator in situ Problem 12/23/2020 12:00:0 0 AM EDT [facility] ([facility]) I25.5 Ischemic cardiomyopathy Ischemic cardiomyopathy [id number] 12/15/2020 12:00:00 AM EDT [facility] I24.9 Acute coronary syndrome Acute coronary syndrome [id number] 12/15/2020 12:00:00 AM EDT [facility] I45.10 RBBB RBBB [id number] 12/13/2020 12:00:00 AM ED T [facility] R79.89 Elevated LFTs Elevated LFTs [id number] 12/13/2020 12:00:00 AM EDT [facility] N17.9 JOHN (acute kidney injury) JOHN (acute kidney injury) [id number] 12/13/2020 12:00:00 AM EDT [facility] I25.110 Coronary artery disease invo lving [place] coronary artery of [place] heart with unstable angina pectoris Coronary artery disease involving [place] coronary artery of [place] heart with unstable angina pectoris [id number] 12/13/2020 12:00:00 AM EDT [facility] R77.8 Elevated troponin Elevated troponin [id number] 12/13/2020 12:00:00 AM EDT [facility] Z72.0 Tobacco use Tobacco use [id number] 12/13/2020 12:00:00 AM EDT [facility] I10 HTN (hypertension) HTN (hypertension) [id number] 12:00:00 AM EDT [facility] E11.9 DM2 (diabetes mellitus, type 2) DM2 (diabetes mellitus , type 2) [id number] 12/13/2020 12:00:00 AM EDT [facility] J44.9 COPD (chronic obstructive pulmonary dise ase) COPD (chronic obstructive pulmonary disease) [id number] 12/13/2020 12:00:00 AM EDT [facility] I47.2 Ventricular tachycardia Ventricular tachycardia [id number] 12/13/2020 12:00:00 AM EDT [facility] [facility] E78.00 [id number] Pure hypercholesterolemia Problem 07/23/2020 12:00:00 AM EDT eCW1 ([facility]) I25.10 [id number] Coronary artery dise ase involving [place] coronary artery of [place] heart without angina pectoris Problem 01/15/2020 12:00:00 AM EDT eCW1 ([facility]) J30.89 [id number] Non-seasonal allergic rhinitis, unspecifi ed trigger Problem 01/15/2020 12:00:00 AM EDT eCW1 ([facility]) Surgeries/Procedures Procedure Description Date Indications Data Source(s) GLUC BLD GLUC MNTR DEV CLEARED FDA SPEC HOME USE <td>P OCT GLUCOSE</td><td>Routine</td><td>02/22/2021 7:53 AM EST</td><td></td><td> </td> 02/22/2021 07:53:00 AM EST [facility] BLOOD COUNT COMPLETE AUTOMATED <td>CBC</td><td>Timed</ td><td>02/22/2021 4:20 AM EST</td><td></td><td> </td> 02/22/2021 04:20:00 AM EST [facility] BASIC METABOLIC PANEL CALCIUM TOTAL <td>BASIC METABOLI C PANEL</td><td>Timed</td><td>02/22/2021 4:20 AM EST</td><td></td><td> </td> 02/22/2021 04:20:00 AM EST [facility] ECG ROUTINE ECG W/LEAST 12 LDS TRCG ONLY W/O I&R <td>E CG 12- LEAD</td><td>Routine</td><td>02/22/2021 3:44 AM EST</td><td></td><td></td> 02/22/2021 03:44:39 AM EST [facility] GLUC BLD GLUC MNTR DEV CLEARED FDA SPEC HOME USE <td>P OCT GLUCOSE</td><td>Routine</td><td>02/21/2021 4:02 PM EST</td><td></td><td> </td> 02/21/2021 04:02:00 PM EST [facility] GLUC BLD GLUC MNTR DEV CLEARED FDA SPEC HOME USE <td>P OCT GLUCOSE</td><td>Routine</td><td>02/21/2021 1:18 PM EST</td><td></td><td> </td> 02/21/2021 01:18:00 PM EST [facility] Transthoracic echocardiography with cont rast, or without contrast followed by with contrast, real-time with image documentation (2d), includes m-mode recording, when performed, follow-up or limited study <td>ECHOCARDIOGRAM TRANSTHORACIC LIMITED W/ CONTRAST</td><td>Pending Discharge</td><td>02/21/2021 12:25 PM EST</td><td></td><td> </td> 02/21/2021 12:25:17 PM EST [facility] GLUC BLD GLUC MNTR DEV CLEARED FDA SPEC HOME USE <td>P OCT GLUCOSE</td><td>Routine</td><td>02/21/2021 9:17 AM EST</td><td></td><td> </td> 02/21/2021 09:17:00 AM EST [facility] XR CHEST PORTABLE <td>XR CHEST PORTABLE</td><t d>Routine</td><td>02/21/2021 8:32 AM EST</td><td></td><td> </td> 02/21/2021 08:32:15 AM EST [facility] NT PRO BNP <td>NT PRO BNP</td><td>Routi ne</td><td>02/21/2021 6:41 AM EST</td><td></td><td> </td> 02/21/2021 06:41:00 AM EST [facility] TROPONIN QUANTITATIVE <td>TROPONIN I</td><td>Timed </td><td>02/21/2021 6:41 AM EST</td><td></td><td> </td> 02/21/2021 06:41:00 AM EST [facility] CULTURE BACTERIAL BLOOD AEROBIC W/ID ISOLATES <td>BLOO D CULTURE</td><td>Routine</td><td>02/21/2021 6:41 AM EST</td><td></td><td></td> 02/21/2021 06:41:00 AM EST [facility] CULTURE BACTERIAL BLOOD AEROBIC W/ID ISOLATES <td>BLOO D CULTURE</td><td>Routine</td><td>02/21/2021 6:41 AM EST</td><td></td><td></td> 02/21/2021 06:41:00 AM EST [facility] THROMBOPLASTIN TIME PARTIAL PLASMA/WHOLE BLOOD <td>APTT</td><td>Routine</td><td>02/21/2021 6:41 AM EST</td><td></td><td> </td> 02/21/2021 06:41:00 AM EST [facility] PROTHROMBIN TIME <td>PROTIME-INR</td><td>Rout ine</td><td>02/21/2021 6:41 AM EST</td><td></td><td> </td> 02/21/2021 06:41:00 AM EST [facility] BLOOD COUNT COMPLETE AUTO&AUTO DIFRNTL WBC COUNT <td>C BC AND DIFFERENTIAL</td><td>Routine</td><td>02/21/2021 6:41 AM EST</td><td></td><td> </td> 02/21/2021 06:41:00 AM EST [facility] BLOOD TYPING ABO <td>TYPE AND SCREEN</td><td> Routine</td><td>02/21/2021 6:41 AM EST</td><td></td><td> </td> 02/21/2021 06:41:00 AM EST [facility] THYROID STIMULATING HORMONE TSH <td>TSH</td><td>Routin e</td><td>02/21/2021 6:41 AM EST</td><td></td><td> </td> 02/21/2021 06:41:00 AM EST [facility] MAGNESIUM <td>MAGNESIUM</td><td>Routin e</td><td>02/21/2021 6:41 AM EST</td><td></td><td> </td> 02/21/2021 06:41:00 AM EST [facility] COMPREHENSIVE METABOLIC PANEL <td>COMPREHENSIVE METABO LIC PANEL</td><td>STAT</td><td>02/21/2021 6:41 AM EST</td><td></td><td> </td> 02/21/2021 06:41:00 AM EST [facility] URINE CULTURE HOLD SPECIMEN <td>URINE CULTURE HOLD SPECIMEN</td><td>Routine</td><td>02/21/2021 6:08 AM EST</td><td></td><td> </td> 02/21/2021 06:08:00 AM EST [facility] URNLS DIP STICK/TABLET RGNT AUTO W/O MICROSCOPY <td>UR INALYSIS W/O MICRO</td><td>Routine</td><td>02/21/2021 6:08 AM EST</td><td></td><td> </td> 02/21/2021 06:08:00 AM EST [facility] ECG ROUTINE ECG W/LEAST 12 LDS TRCG ONLY W/O I&R <td>E CG 12- LEAD</td><td>Routine</td><td>02/21/2021 5:57 AM EST</td><td></td><td></td> 02/21/2021 05:57:02 AM EST [facility] Imm: Flublok Quadrivalent 18 years & older 0.5mL IM Influenz a 01/19/2021 12:00:00 AM EDT eCW1 ([facility]) INTERROGATION EVAL F2F 1/DUAL/VISUAL COORDINATOR LEADS CVDFB 01/07/20 12:00:00 AM EDT MEDENT ([facility]) ECG ROUTINE ECG W/LEAST 12 LDS W/I&R 12/23/2020 12:00: 00 AM EDT MEDENT ([facility]) OFFICE OUTPATIENT VISIT 25 MINUTES 12/23/2020 12:00:00 AM EDT MEDENT ([facility]) XR CHEST PORTABLE <td>XR CHEST PORTABLE</td><t d>STAT</td><td>12/17/2020 6:56 PM EDT</td><td></td><td> </td> 12/17/2020 06:56:35 PM EDT [facility] GLUC BLD GLUC MNTR DEV CLEARED FDA SPEC HOME USE <td>P OCT GLUCOSE</td><td>Routine</td><td>12/17/2020 6:51 PM EDT</td><td></td><td> </td> 12/17/2020 06:51:00 PM EDT [facility] EP STUDY <td>EP STUDY</td><td>Routine </td><td>12/17/2020 5:32 PM EDT</td><td> Sustained VT (ventricular tachycardia)</td><td> </td> 12/17/2020 05:32:55 PM EDT Sustained VT (ventricular tachycardia) [facility] Sustained VT (ventricular tachycardia) GLUC BLD GLUC MNTR DEV CLEARED FDA SPEC HOME USE <td>P OCT GLUCOSE</td><td>Routine</td><td>12/17/2020 11:47 AM EDT</td><td></td><td> </td> 12/17/2020 11:47:00 AM EDT [facility] GLUC BLD GLUC MNTR DEV CLEARED FDA SPEC HOME USE <td>P OCT GLUCOSE</td><td>Routine</td><td>12/17/2020 9:12 AM EDT</td><td></td><td> </td> 12/17/2020 09:12:00 AM EDT [facility] THROMBOPLASTIN TIME PARTIAL PLASMA/WHOLE BLOOD <td>APTT</td><td>Routine</td><td>12/17/2020 8:00 AM EDT</td><td></td><td> </td> 12/17/2020 08:00:00 AM EDT [facility] Hemodialysis (procedure) <td>HEMODIALYSIS INPATIENT TX</td><td>Routine</td><td>12/17/2020 12:07 AM EDT</td><td></td><td></td> 12/17/2020 12:07:30 AM EDT [facility] THROMBOPLASTIN TIME PARTIAL PLASMA/WHOLE BLOOD <td>APTT</td><td>Routine</td><td>12/17/2020 12:07 AM EDT</td><td></td><td> </td> 12/17/2020 12:07:00 AM EDT [facility] GLUC BLD GLUC MNTR DEV CLEARED FDA SPEC HOME USE <td>P OCT GLUCOSE</td><td>Routine</td><td>12/16/2020 5:55 PM EDT</td><td></td><td> </td> 12/16/2020 05:55:00 PM EDT [facility] THROMBOPLASTIN TIME PARTIAL PLASMA/WHOLE BLOOD <td>APTT</td><td>Routine</td><td>12/16/2020 4:38 PM EDT</td><td></td><td> </td> 12/16/2020 04:38:00 PM EDT [facility] GLUC BLD GLUC MNTR DEV CLEARED FDA SPEC HOME USE <td>P OCT GLUCOSE</td><td>Routine</td><td>12/16/2020 12:02 PM EDT</td><td></td><td> </td> 12/16/2020 12:02:00 PM EDT [facility] KU2 PANEL <td>KU2 PANEL</td><td>STAT</ td><td>12/16/2020 7:44 AM EDT</td><td></td><td> </td> 12/16/2020 07:44:00 AM EDT [facility] BLOOD COUNT COMPLETE AUTOMATED <td>CBC</td><td>STAT</t d><td>12/16/2020 7:44 AM EDT</td><td></td><td> </td> 12/16/2020 07:44:00 AM EDT [facility] PHOSPHORUS INORGANIC <td>PHOSPHORUS</td><td>STAT< /td><td>12/16/2020 7:44 AM EDT</td><td></td><td> </td> 12/16/2020 07:44:00 AM EDT [facility] THROMBOPLASTIN TIME PARTIAL PLASMA/WHOLE BLOOD <td>APTT</td><td>STAT</td><td>12/16/2020 6:28 AM EDT</td><td></td><td> </td> 12/16/2020 06:28:00 AM EDT [facility] THROMBOPLASTIN TIME PARTIAL PLASMA/WHOLE BLOOD <td>APTT</td><td>STAT</td><td>12/15/2020 7:43 PM EDT</td><td></td><td> </td> 12/15/2020 07:43:00 PM EDT [facility] GLUC BLD GLUC MNTR DEV CLEARED FDA SPEC HOME USE <td>P OCT GLUCOSE</td><td>Routine</td><td>12/15/2020 6:25 PM EDT</td><td></td><td> </td> 12/15/2020 06:25:00 PM EDT [facility] CARDIAC CATHETERIZATION <td>CARDIAC CATHETERIZATION</td><td>Routine</td><td>12/15/2020 5:25 PM EDT</td><td> Acute coronary syndrome Sustained VT (ventricular tachycardia) Ischemic cardiomyopathy</td><td> </td> 12/15/2020 05:25:36 PM EDT Ischemic cardiomyopathySustained VT (lainey tricular tachycardia)Acute coronary syndrome [facility] Ischemic cardiomyopathy Sustained VT (ventricular tachycardia) Acute coronary syndrome GLUC BLD GLUC MNTR DEV CLEARED FDA SPEC HOME USE <td>P OCT GLUCOSE</td><td>Routine</td><td>12/15/2020 1:35 PM EDT</td><td></td><td> </td> 12/15/2020 01:35:00 PM EDT [facility] GLUC BLD GLUC MNTR DEV CLEARED FDA SPEC HOME USE <td>P OCT GLUCOSE</td><td>Routine</td><td>12/15/2020 8:47 AM EDT</td><td></td><td> </td> 12/15/2020 08:47:00 AM EDT [facility] KU2 PANEL <td>KU2 PANEL</td><td>STAT</ td><td>12/15/2020 8:15 AM EDT</td><td></td><td> </td> 12/15/2020 08:15:00 AM EDT [facility] BLOOD COUNT COMPLETE AUTOMATED <td>CBC</td><td>STAT</t d><td>12/15/2020 8:15 AM EDT</td><td></td><td> </td> 12/15/2020 08:15:00 AM EDT [facility] PHOSPHORUS INORGANIC <td>PHOSPHORUS</td><td>STAT< /td><td>12/15/2020 8:15 AM EDT</td><td></td><td> </td> 12/15/2020 08:15:00 AM EDT [facility] Hemodialysis (procedure) <td>HEMODIALYSIS INPATIENT TX</td><td>Routine</td><td>12/15/2020 7:08 AM EDT</td><td></td><td></td> 12/15/2020 07:08:46 AM EDT [facility] Hemodialysis (procedure) <td>HEMODIALYSIS INPATIENT TX</td><td>Routine</td><td>12/15/2020 7:08 AM EDT</td><td></td><td></td> 12/15/2020 07:08:46 AM EDT [facility] Hemodialysis (procedure) <td>HEMODIALYSIS INPATIENT TX</td><td>Routine</td><td>12/15/2020 7:08 AM EDT</td><td></td><td></td> 12/15/2020 07:08:46 AM EDT [facility] BILIRUBIN UNCONJ (INDIRECT) <td>BILIRUBIN UNCONJ (INDIRECT)</td><td>STAT</td><td>12/15/2020 5:01 AM EDT</td><td></td><td> </td> 12/15/2020 05:01:00 AM EDT [facility] THROMBOPLASTIN TIME PARTIAL PLASMA/WHOLE BLOOD <td>APTT</td><td>STAT</td><td>12/15/2020 5:01 AM EDT</td><td></td><td> </td> 12/15/2020 05:01:00 AM EDT [facility] BLOOD COUNT COMPLETE AUTOMATED <td>CBC</td><td>STAT</t d><td>12/15/2020 5:01 AM EDT</td><td></td><td> </td> 12/15/2020 05:01:00 AM EDT [facility] MAGNESIUM <td>MAGNESIUM</td><td>STAT</ td><td>12/15/2020 5:01 AM EDT</td><td></td><td> </td> 12/15/2020 05:01:00 AM EDT [facility] BILIRUBIN DIRECT <td>BILIRUBIN, DIRECT</td><t d>STAT</td><td>12/15/2020 5:01 AM EDT</td><td></td><td> </td> 12/15/2020 05:01:00 AM EDT [facility] COMPREHENSIVE METABOLIC PANEL <td>COMPREHENSIVE METABO LIC PANEL</td><td>STAT</td><td>12/15/2020 5:01 AM EDT</td><td></td><td> </td> 12/15/2020 05:01:00 AM EDT [facility] THROMBOPLASTIN TIME PARTIAL PLASMA/WHOLE BLOOD <td>APTT</td><td>STAT</td><td>12/14/2020 6:10 PM EDT</td><td></td><td> </td> 12/14/2020 06:10:00 PM EDT [facility] GLUC BLD GLUC MNTR DEV CLEARED FDA SPEC HOME USE <td>P OCT GLUCOSE</td><td>Routine</td><td>12/14/2020 4:52 PM EDT</td><td></td><td> </td> 12/14/2020 04:52:00 PM EDT [facility] GLUC BLD GLUC MNTR DEV CLEARED FDA SPEC HOME USE <td>P OCT GLUCOSE</td><td>Routine</td><td>12/14/2020 12:30 PM EDT</td><td></td><td> </td> 12/14/2020 12:30:00 PM EDT [facility] GLUC BLD GLUC MNTR DEV CLEARED FDA SPEC HOME USE <td>P OCT GLUCOSE</td><td>Routine</td><td>12/14/2020 9:16 AM EDT</td><td></td><td> </td> 12/14/2020 09:16:00 AM EDT [facility] Transthoracic echocardiography with cont rast, or without contrast followed by with contrast, real-time with image documentation (2d), includes m-mode recording, when performed, complete, with spectral doppler echocardiography, and with color flow doppler echocardiography <td>ECHOCARDIOGRAM TRANSTHORACIC COMPLETE W/ CONTRAST</td><td>Routine</td><td>12/14/2020 8:03 AM EDT</td><td></td><td> </td> 12/14/2020 08:03:02 AM EDT [facility] TROPONIN QUANTITATIVE <td>TROPONIN I</td><td>Timed </td><td>12/14/2020 5:47 AM EDT</td><td></td><td> </td> 12/14/2020 05:47:00 AM EDT [facility] THROMBOPLASTIN TIME PARTIAL PLASMA/WHOLE BLOOD <td>APTT</td><td>Routine</td><td>12/14/2020 5:47 AM EDT</td><td></td><td> </td> 12/14/2020 05:47:00 AM EDT [facility] PROTHROMBIN TIME <td>PROTIME-INR</td><td>Add- On</td><td>12/14/2020 5:47 AM EDT</td><td></td><td> </td> 12/14/2020 05:47:00 AM EDT [facility] BLOOD COUNT COMPLETE AUTOMATED <td>CBC</td><td>Routine </td><td>12/14/2020 5:47 AM EDT</td><td></td><td> </td> 12/14/2020 05:47:00 AM EDT [facility] COMPREHENSIVE METABOLIC PANEL <td>COMPREHENSIVE METABO LIC PANEL</td><td>Timed</td><td>12/14/2020 5:47 AM EDT</td><td></td><td> </td> 12/14/2020 05:47:00 AM EDT [facility] TROPONIN QUANTITATIVE <td>TROPONIN I</td><td>STAT< /td><td>12/14/2020 2:05 AM EDT</td><td></td><td> </td> 12/14/2020 02:05:00 AM EDT [facility] MAGNESIUM <td>MAGNESIUM</td><td>STAT</ td><td>12/14/2020 2:05 AM EDT</td><td></td><td> </td> 12/14/2020 02:05:00 AM EDT [facility] COMPREHENSIVE METABOLIC PANEL <td>COMPREHENSIVE METABO LIC PANEL</td><td>STAT</td><td>12/14/2020 2:05 AM EDT</td><td></td><td> </td> 12/14/2020 02:05:00 AM EDT [facility] THROMBOPLASTIN TIME PARTIAL PLASMA/WHOLE BLOOD <td>APTT</td><td>Routine</td><td>12/14/2020 12:12 AM EDT</td><td></td><td> </td> 12/14/2020 12:12:00 AM EDT [facility] ECG ROUTINE ECG W/LEAST 12 LDS TRCG ONLY W/O I&R <td>E CG 12- LEAD</td><td>STAT</td><td>12/13/2020 10:13 PM EDT</td><td></td><td></td> 12/13/2020 10:13:23 PM EDT [facility] URINE CULTURE HOLD SPECIMEN <td>URINE CULTURE HOLD SPECIMEN</td><td>Routine</td><td>12/13/2020 8:08 PM EDT</td><td></td><td> </td> 12/13/2020 08:08:00 PM EDT [facility] URINE MICROSCOPIC <td>URINE MICROSCOPIC</td><t d>Add-On</td><td>12/13/2020 8:08 PM EDT</td><td></td><td> </td> 12/13/2020 08:08:00 PM EDT [facility] PROTEIN TOTAL XCPT REFRACTOMETRY URINE <td>PROTEIN / C REATININE RATIO, URINE</td><td>Routine</td><td>12/13/2020 8:08 PM EDT</td><td></td><td> </td> 12/13/2020 08:08:00 PM EDT [facility] PROTEIN ELECTROP FXJ&STEFFEN OTH FLUS CONCENTRATION <td>P ROTEIN ELECTROPHORESIS, RANDOM URINE</td><td>Routine</td><td>12/13/2020 8:08 PM EDT</td><td></td><td></td> 12/13/2020 08:08:00 PM EDT [facility] URNLS DIP STICK/TABLET RGNT AUTO W/O MICROSCOPY <td>UR INALYSIS W/O MICRO</td><td>Routine</td><td>12/13/2020 8:08 PM EDT</td><td></td><td> </td> 12/13/2020 08:08:00 PM EDT [facility] COMPLEMENT TOTAL HEMOLYTIC <td>COMPLEMENT ACT TOTAL</td><td>Routine</td><td>12/13/2020 7:10 PM EDT</td><td></td><td> </td> 12/13/2020 07:10:00 PM EDT [facility] FLUORESCENT NONNFCT AGT ANTB SCREEN EA ANTIBODY <td>AN CA VASCULITIS PROF</td><td>Routine</td><td>12/13/2020 7:10 PM EDT</td><td></td><td> </td> 12/13/2020 07:10:00 PM EDT [facility] HEPATITIS C ANTIBODY CONFIRMATORY TEST <td>HEPATITIS C ANTIBODY</td><td>Routine</td><td>12/13/2020 7:10 PM EDT</td><td></td><td> </td> 12/13/2020 07:10:00 PM EDT [facility] ANTINUCLEAR ANTIBODIES BÁRBARA TITER <td>BÁRBARA WITH REFLEX</td><td>Routine</td><td>12/13/2020 7:10 PM EDT</td><td></td><td> </td> 12/13/2020 07:10:00 PM EDT [facility] TROPONIN QUANTITATIVE <td>TROPONIN I</td><td>Add-O n</td><td>12/13/2020 7:10 PM EDT</td><td></td><td> </td> 12/13/2020 07:10:00 PM EDT [facility] NEPHELOMETRY EACH ANALYTE YUKO <td>IMMUNOGLOBULIN FREE LT CHAINS BLOOD</td><td>Routine</td><td>12/13/2020 7:10 PM EDT</td><td></td><td> </td> 12/13/2020 07:10:00 PM EDT [facility] IMMUNOASSAY ANALYTE QUANTITATIVE NOS <td>GLOMERULAR BA SEMENT MEMBRANE IGG</td><td>Routine</td><td>12/13/2020 7:10 PM EDT</td><td></td><td> </td> 12/13/2020 07:10:00 PM EDT [facility] CERULOPLASMIN <td>CERULOPLASMIN</td><td>Ad d-On</td><td>12/13/2020 7:10 PM EDT</td><td></td><td> </td> 12/13/2020 07:10:00 PM EDT [facility] RHEUMATOID FACTOR QUANTITATIVE <td>RHEUMATOID FACTOR</td><td>Routine</td><td>12/13/2020 7:10 PM EDT</td><td></td><td> </td> 12/13/2020 07:10:00 PM EDT [facility] COMPLEMENT ANTIGEN EACH COMPONENT <td>C3 COMPLEMENT</td><td>Routine</td><td>12/13/2020 7:10 PM EDT</td><td></td><td> </td> 12/13/2020 07:10:00 PM EDT [facility] COMPLEMENT ANTIGEN EACH COMPONENT <td>C4 COMPLEMENT</td><td>Routine</td><td>12/13/2020 7:10 PM EDT</td><td></td><td> </td> 12/13/2020 07:10:00 PM EDT [facility] PROTEIN ELECTROPHORETIC FRACTJ&QUANTJ SERUM <td>PROTEI N ELECTROPHORESIS, SERUM</td><td>Routine</td><td>12/13/2020 7:10 PM EDT</td><td></td><td></td> 12/13/2020 07:10:00 PM EDT [facility] ACETAMINOPHEN <td>ACETAMINOPHEN LEVEL</td> <td>Add-On</td><td>12/13/2020 7:10 PM EDT</td><td></td><td> </td> 12/13/2020 07:10:00 PM EDT [facility] CENTRAL LINE INSERTION <td>CENTRAL LINE INSERTION</td><td>Routine</td><td>12/13/2020 7:02 PM EDT</td><td> JOHN (acute kidney injury)</td><td> </td> 12/13/2020 07:02:07 PM EDT JOHN (acute kidney injury) [facility] JOHN (acute kidney injury) XR CHEST PORTABLE <td>XR CHEST PORTABLE</td><t d>STAT</td><td>12/13/2020 6:23 PM EDT</td><td></td><td> </td> 12/13/2020 06:23:48 PM EDT [facility] Hemodialysis (procedure) <td>HEMODIALYSIS INPATIENT TX</td><td>Routine</td><td>12/13/2020 5:08 PM EDT</td><td></td><td></td> 12/13/2020 05:08:39 PM EDT [facility] POC VENOUS BLOOD GAS W LYTES <td>POC VENOUS BLOOD GAS W LYTES</td><td>Routine</td><td>12/13/2020 5:04 PM EDT</td><td></td><td> </td> 12/13/2020 05:04:00 PM EDT [facility] GLUC BLD GLUC MNTR DEV CLEARED FDA SPEC HOME USE <td>P OCT GLUCOSE</td><td>Routine</td><td>12/13/2020 5:04 PM EDT</td><td></td><td> </td> 12/13/2020 05:04:00 PM EDT [facility] DUP-SCAN ARTL FILI ABDL/PEL/SCROT&/RPR ORGN LMTD <td>US ABDOMINAL VEINS LIMITED</td><td>STAT</td><td>12/13/2020 4:55 PM EDT</td><td></td><td> </td> 12/13/2020 04:55:55 PM EDT [facility] US RETROPERITONEAL REAL TIME W/IMAGE COMPLETE <td>US R ENAL KIDNEY BILATERAL</td><td>Routine</td><td>12/13/2020 4:01 PM EDT</td><td></td><td> </td> 12/13/2020 04:01:28 PM EDT [facility] ULTRASOUND ABDOMINAL REAL TIME W/IMAGE LIMITED <td>US RIGHT UPPER QUADRANT</td><td>Routine</td><td>12/13/2020 4:01 PM EDT</td><td></td><td> </td> 12/13/2020 04:01:10 PM EDT [facility] NT PRO BNP <td>NT PRO BNP</td><td>Routi ne</td><td>12/13/2020 3:19 PM EDT</td><td></td><td> </td> 12/13/2020 03:19:00 PM EDT [facility] TROPONIN QUANTITATIVE <td>TROPONIN I</td><td>Routi ne</td><td>12/13/2020 3:19 PM EDT</td><td></td><td> </td> 12/13/2020 03:19:00 PM EDT [facility] ACUTE HEPATITIS PANEL <td>HEPATITIS PANEL, ACUTE</td><td>Routine</td><td>12/13/2020 3:19 PM EDT</td><td></td><td> </td> 12/13/2020 03:19:00 PM EDT [facility] HEPATITIS B CORE ANTIBODY HBCAB TOTAL <td>HEPATITIS B CORE ANTIBODY, TOTAL</td><td>Routine</td><td>12/13/2020 3:19 PM EDT</td><td></td><td> </td> 12/13/2020 03:19:00 PM EDT [facility] HEPATITIS B SURF ANTIBODY HBSAB <td>HEPATITIS B SURFAC E ANTIBODY</td><td>Routine</td><td>12/13/2020 3:19 PM EDT</td><td></td><td> </td> 12/13/2020 03:19:00 PM EDT [facility] THROMBOPLASTIN TIME PARTIAL PLASMA/WHOLE BLOOD <td>APTT</td><td>Routine</td><td>12/13/2020 3:19 PM EDT</td><td></td><td> </td> 12/13/2020 03:19:00 PM EDT [facility] PROTHROMBIN TIME <td>PROTIME-INR</td><td>Rout ine</td><td>12/13/2020 3:19 PM EDT</td><td></td><td> </td> 12/13/2020 03:19:00 PM EDT [facility] BLOOD COUNT COMPLETE AUTO&AUTO DIFRNTL WBC COUNT <td>C BC AND DIFFERENTIAL</td><td>Routine</td><td>12/13/2020 3:19 PM EDT</td><td></td><td> </td> 12/13/2020 03:19:00 PM EDT [facility] THYROID STIMULATING HORMONE TSH <td>TSH</td><td>Routin e</td><td>12/13/2020 3:19 PM EDT</td><td></td><td> </td> 12/13/2020 03:19:00 PM EDT [facility] PHOSPHORUS INORGANIC <td>PHOSPHORUS</td><td>Routi ne</td><td>12/13/2020 3:19 PM EDT</td><td></td><td> </td> 12/13/2020 03:19:00 PM EDT [facility] MAGNESIUM <td>MAGNESIUM</td><td>Routin e</td><td>12/13/2020 3:19 PM EDT</td><td></td><td> </td> 12/13/2020 03:19:00 PM EDT [facility] HEMOGLOBIN GLYCOSYLATED A1C <td>HEMOGLOBIN A1C</td><td>Routine</td><td>12/13/2020 3:19 PM EDT</td><td></td><td> </td> 12/13/2020 03:19:00 PM EDT [facility] ALCOHOL ANY SPECIMEN EXCEPT BREATH <td>ETHANOL</td><td>Routine</td><td>12/13/2020 3:19 PM EDT</td><td></td><td> </td> 12/13/2020 03:19:00 PM EDT [facility] LIPID PANEL <td>LIPID PANEL</td><td>Rout ine</td><td>12/13/2020 3:19 PM EDT</td><td></td><td> </td> 12/13/2020 03:19:00 PM EDT [facility] COMPREHENSIVE METABOLIC PANEL <td>COMPREHENSIVE METABO LIC PANEL</td><td>Routine</td><td>12/13/2020 3:19 PM EDT</td><td></td><td> </td> 12/13/2020 03:19:00 PM EDT [facility] URINE MICROSCOPIC <td>URINE MICROSCOPIC</td><t d>Add-On</td><td>12/13/2020 2:15 PM EDT</td><td></td><td> </td> 12/13/2020 02:15:00 PM EDT [facility] PROTEIN TOTAL XCPT REFRACTOMETRY URINE <td>PROTEIN / C REATININE RATIO, URINE</td><td>Routine</td><td>12/13/2020 2:15 PM EDT</td><td></td><td> </td> 12/13/2020 02:15:00 PM EDT [facility] CHLORIDE URINE <td>URINE ELECTROLYTES</td>< td>Routine</td><td>12/13/2020 2:15 PM EDT</td><td></td><td> </td> 12/13/2020 02:15:00 PM EDT [facility] PROTEIN ELECTROP FXJ&STEFFEN OTH FLUS CONCENTRATION <td>P ROTEIN ELECTROPHORESIS, RANDOM URINE</td><td>Routine</td><td>12/13/2020 2:15 PM EDT</td><td></td><td></td> 12/13/2020 02:15:00 PM EDT [facility] CREATININE OTHER SOURCE <td>CREATININE, URINE, RANDOM</td><td>Routine</td><td>12/13/2020 2:15 PM EDT</td><td></td><td> </td> 12/13/2020 02:15:00 PM EDT [facility] URNLS DIP STICK/TABLET RGNT AUTO W/O MICROSCOPY <td>UR INALYSIS W/O MICRO</td><td>Routine</td><td>12/13/2020 2:15 PM EDT</td><td></td><td> </td> 12/13/2020 02:15:00 PM EDT [facility] ECG ROUTINE ECG W/LEAST 12 LDS W/I&R <td>ECG 12- LEAD</td><td>Routine</td><td>12/13/2020 12:36 PM EDT</td><td></td><td></td> 12/13/2020 12:36:40 PM EDT [facility] ECHO TTHRC R-T 2D W/WOM-MODE COMPL SPEC&COLR DOP 08/03 12:00:00 AM EDT [facility] ([facility]) ECG ROUTINE ECG W/LEAST 12 LDS W/I&R 07/29/2020 12:00: 00 AM EDT [facility] ([facility]) OFFICE OUTPATIENT VISIT 25 MINUTES 07/29/2020 12:00:00 AM EDT [facility] [facility]) ECG ROUTINE ECG W/LEAST 12 LDS W/I&R 04/27/2020 12:00: 00 AM EST MEDENT ([facility]) Immunization: Flublok Quadrivalent (18 years & older) 0.5mL IM (Influenza) 01/15/2020 12:00:00 AM EDT eCW1 ([facility]) Results ID Date Data Source [id number] 02/22/2021 10:47:52 AM EST [facility] INFORMATIONPatient MRN Name Date of Age Gend*PT [id number] Dilan Kirk 1960 60 years M IPPT Location Admission Date/Time Visit ID Attending [id number] 02/21/21 0548 --- Leonid Hawley MD([id number]) EPI ID CSN Admitting Provider [id number] Quinn Andres MD([id number])Physician Discharge Summary Dilan KirkMRN: [id number] date: 02/21/2021dmitting Physician: CLARKE Alfonsoischarge date and time:Discharge Orders Placed(From admission, onward) Start Ordered 02/22/21 1041 Discharge patient OnceExpected Discharge Date: 02/22/21Discharge Disposition: Home or Self Care 02/22/21 1043Discharge Physician: Leonid Hawley MDAdmission Diagnosis: Ventricular tachycardiaSecondary Diagnoses: Principal Problem: Ventricular tachycardiaActive Problems: COPD (chronic obstructive pulmonary disease) DM2 (diabetes mellitus, type 2) Tobacco use Coronary artery disease Hypertension Defibrillator dischargeShort Summary of the hospital course: Mr Reina is a 60-year-old man withmedical history of CAD, he has known chronic occlusion of the RCA withcollaterals and EF of 40% on [facility] of 12/15/2020. History of type 2 diabetes,hypertension, COPD. He was admitted to [facility] December 2020 with ventriculartachycardia and other complicati ons. He underwent successful implantation ofleft-sided single-chamber ICD [employer] on 12/17/2020 for secondaryprevention. He transfers from [facility] with ventriculartachycardia s/p 3 shocks.ICD discharge /V. tach.: Patient was evaluated by cardiology team during hishospital course. Patient was started on amiodarone drip. Patient has beenevaluated by EP team. Dr. Hylton felt that ICD discharge was appropriate.Patient has been recommended to continue on amiodarone and follow-up withcardiology as an outpatient.Overall hospital course uncomplicated.Discharge home todayPast Medical History:Past Medical History:Diagnosis Date Acute kidney injury Asthma Cardiomegaly COPD (chronic obstructive pulmonary disease) Coronary artery disease [employer] RCA Diabetes mellitus Fatty liver History of herniated intervertebral disc Hypertension GA (myocardial infarction) Sinusitis Umbilical herniaResults from last 7 daysLab Units 420WBC 10*3/uL 10.1HEMOGLOBIN g/dL 15.0HEMATOCRIT % 44.3PLATELETS 10*3/uL 164Results from last 7 daysLab Units [id number] mmol/L 139POTASSIUM mmol/L 3.8CHLORIDE mmol/L 104CO2 mmol/L 26BUN mg/dL 16CREATININE mg/dL 1.08GLUCOSE mg/dL 117*CALCIUM mg/dL 8.9Patient appears comfortable not in distressDischarge Exam:Vitals: Temp: [97.4 F-98.7 F] 97.4 FHeart Rate: [49-67] 59Resp: [18] 18BP: (94-142)/(55-83) 113/66Head: Atraumatic.Nose: Nose normal.Mouth/Throat: Oropharynx is clear and moist.Neck: Normal range of motion. Neck supple.Cardiovascular: Normal rate, regular rhythm, normal heart sounds and intactdistal pulses.Pulmonary/Chest: Effort normal and breath sounds normal.Abdominal: Soft. Bowel sounds are normal.Musculoskeletal: Normal range of motion.Neurological: alert and oriented to person, place, and time. Non focalSkin: Skin is warm and dry.Your medication listSTART taking these medications Instructions Last Dose Given Morning Afternoon Evening Bedtime As Neededamiodarone 200 MG tabletCommonly known as: PACERONE Take 2 tablets (400 mg total) by mouth 2 (two) times a day for 14 daysamiodarone 200 MG tabletCommonly known as: PACERONEStart taking on: March 09, 2021 Take 1 tablet (200 mg total) by mouth dailyCONTINUE taking these medications Instructions Last Dose Given Morning Afternoon Evening Bedtime As Neededalbuterol 108 (90 Base) MCG/ACT inhalerCommonly known as: PROVENTIL HFA;VENTOLIN HFA Inhale 2 puffs every 4 (four) hours as needed for wheezingaspirin 81 MG chewable tablet Chew 81 mg dailyatorvastatin 80 MG tabletCommonly known as: LIPITOR Take 80 mg by mouth nightlybisoprolol 5 MG tabletCommonly known as: ZEBETA Take 5 mg by mouth nightlyclopidogrel 75 MG tabletCommonly known as: PLAVIX Take 75 mg by mouth dailyfurosemide 40 MG tabletCommonly known as: LASIX Take 40 mg by mouth 2 (two) times a daymetFORMIN 500 MG 24 hr tabletCommonly known as: GLUCOPHAGE-XR Take 1,000 mg by mouth daily with dinnermontelukast 10 MG tabletCommonly known as: SINGULAIR Take 10 mg by mouth every morningnitroglycerin 0.4 MG SL tabletCommonly known as: NITROSTAT Place 0.4 mg under the tongue every 5 (five) minutes as needed for chest painSteglatro 15 MG TabsGeneric drug: Ertugliflozin L-PyroglutamicAc Take 15 mg by mouth dailyWhere to Get Your MedicationsThese medications were sent to [id number] - [place] - [address] [place] RT [id number] [place] [address] [address] amiodarone 200 MG tablet amiodarone 200 MG tabletDischarged Condition:fairDisposition: Home or Self CareFollow upspcpDr.MigeedTime spent coordinating the discharge more than 30 minutes.Signature: Leonid Hawley CLARKEate: February 22, 2021Time: 10:44 AM Name Value Range Interpretation Code Description Data Morena rce(s) Supporting Document(s) ID Date Data Source [id number] 02/22/2021 09:21:32 AM EST [facility] Name Value Range Interpretation Code Description Data Morena rce(s) Supporting Document(s) EKG [facility] [id number] jb2 [file] [id number]+information systems director/nvkHY6T/PIrYj5rHOsFF01hF [file] [id number]+IiatoKEbxOqmYXMMOZSzSRvSLVVDZ3M= ID Date Data Source [id number] 02/22/2021 07:55:19 AM EST [facility] Name Value Range Interpretation Code Description Data Morena rce(s) Supporting Document(s) POC NOVA GLU 151 mg/dL (70-99) H [facility] [place] PERFORMED BY [facility] CLINICAL STAFF ID Date Data Source [id number] 02/22/2021 08:10:41 AM EST [facility] Name Value Range Interpretation Code Description Data Morena rce(s) Supporting Document(s) SODIUM 139 mmol/L (136-145) [facility] POTASSIUM 3.8 mmol/L (3.6-5.2) [facility] CHLORIDE 104 mmol/L (100-108) [facility] CO2 26 mmol/L (22-31) [facility] ANION GAP 9 mmol/L (7-16) [facility] UREA NITROGEN 16 mg/dL (7-24) [facility] CREATININE 1.08 mg/dL (0.80-1.30) [facility] BUN/CREAT RATIO 14.8 RATIO (10.0-20.0) [facility] GLUCOSE 117 mg/dL (70-99) [facility] CALCIUM 8.9 mg/dL (8.4-10.2) [facility] GFR >60 ml/min/1.73m2 (>59) [facility] GFR ( AMER) >60 ml/min/1.73m2 (>59) [facility] GFR INTERPRETATION [facility] --NORMAL KIDNEY FUNCTION OR MILD DISEASE - GFR >OR= 60CHRONIC KIDNEY DISEASE - GFR 15 - 59RENAL FAILURE - GFR <15 Est. GFR calculation based on the MDRDstudy equation, which assumes a steadystate for creatinine. Est. GFR should notbe used for medication dosing. ID Date Data Source [id number] 02/22/2021 07:08:05 AM EST [facility] Name Value Range Interpretation Code Description Data Morena rce(s) Supporting Document(s) WBC 10.1 10*3/uL (4.1-11.0) [facility] RBC 4.60 10*6/uL (4.60-6.10) [facility] HGB 15.0 g/dL (13.5-18.0) [facility] HCT 44.3 % (41.0-53.0) [facility] MCV 96.3 fL (80.0-95.0) [facility] MCH 32.7 pg (27.0-32.0) [facility] MCHC 33.9 g/dL (32.0-36.0) [facility] RDW 14.5 % (10.5-14.5) [facility] PLT 164 10*3/uL (150-450) [facility] MPV 9.0 fL (7.1-10.7) [facility] ID Date Data Source [id number] 02/22/2021 02:08:49 AM EST [facility] NT INFORMATIONPatient MRN Name Date of Age Gend*PT [id number] Dilan Kirk 1960 60 years M IPPT Location Admission Date/Time Visit ID Attending [id number] 02/21/21 0548 --- Leonid Hawley MD([id number]) EPI ID CSN Admitting Provider [id number] Quinn Andres MD([id number]) Attestation signed by Quinn Andres MD at 02/22/2021 2:08 AMI have reviewed this patient in detail with Mitchel Oleary NP. I fully agreewith the history and physical and we have together formulated the assessmentand plan. I have no further additions. ADMISSION HISTORY AND PHYSICALName: Dilan Kirk Gender: maleDate of : 1960 Age: 60 yearsDate/Time of Admit: 02/21/2021 5:48 AM Code Status: Full CodePrimary Care Provider / Referring Physician: PCP PROVIDER REQUESTEDInformant:Current HistoryChief Complaint: Patient transfers from [facility] with ventriculartachycardiaHPI:This patient is a 60 years male with medical history of CAD, he has knownchronic occlusion of the RCA with collaterals and EF of 40% on [facility] of 12/15/2020.History of type 2 diabetes, hypertension, COPD. [facility] other [facility]. Heunderwent successful implantation of left-sided single-chamber ICD [employer] on 12/17/2020 for secondary prevention. He transfers from [facility] with ventricular tachycardia s/p 3 shocks.Dilan Kirk reports that he was in his usual state of health doinggreat since he left the hospital. He has been compliant with home medicationsand following up with his appointments. Yesterday at 9:30 PM he was laying inbed getting ready for sleep when he had very brief moment of lightheadedness andreceived a shock from his ICD. He felt jostled for movement in the backbaseline. Later on around 11:30 PM he had another shock and no prodromalsymptoms. He then was taken to the hospital. While in hospital he had a thirdICD shock around 1:30 AM.Work-up in [facility] was called.Chest x-ray showed stable nonspecific bilateral perihilar and bibasilarreticulonodular opacities.Blood work showed WBC 12.8, H&H 16.7/49.5, platelets 209, glucose 252,BUN/creatinine 23/1.23 sodium 140, potassium 3.5, magnesium 1.8. The case wasdiscussed with the golf course superintendent on-call. Patient was given metoprolol zmpbpikof45 mg, metoprolol tartrate 5 mg IV, amiodarone 150 mg, and he was started onamiodarone drip. He transferred to [facility] for higher level of care.Dilan Kirk is trying to quit smoking. He presently smokes 1 to 2cigarettes a day. Previously smoked up to 2 packs/day for 30 years. He doesnot drink alcohol at all anymore. 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 of Systems:Review of SystemsConstitutional: Negative for chills, decreased appetite, diaphoresis, fever,malaise/fatigue, night sweats, weight gain and weight loss.HENT: Negative for congestion, ear discharge, ear pain, hearing loss, hoarsevoice, nosebleeds, odynophagia, sore throat, stridor and tinnitus.Eyes: Negative for blurred vision, discharge, double vision, pain, photophobia,redness, vision loss in left eye, vision loss in right eye, visual disturbanceand visual halos.Cardiovascular: Negative for chest pain, claudication, cyanosis, dyspnea onexertion, irregular heartbeat, leg swelling, near-syncope, orthopnea,palpitations, paroxysmal nocturnal dyspnea and syncope.Respiratory: Negative for cough, hemoptysis, shortness of breath, sleepdisturbances due to breathing, snoring, sputum production and w heezing.Endocrine: Negative.Hematologic/Lymphatic: Negative.Skin: Negative.Musculoskeletal: Negative.Gastrointestinal: Negative for bloating, abdominal pain, anorexia, change inbowel habit, bowel incontinence, constipation, diarrhea, dysphagia, excessiveappetite, flatus, heartburn, hematemesis, hematochezia, hemorrhoids, jaundice,melena, nausea and vomiting.Genitourinary: Negative for bladder incontinence, dysuria, flank pain,frequency, genital sores, hematuria, hesitancy, incomplete emptying, nocturia,pelvic pain and urgency.Neurological: Positive for light-headedness (Brief episode of lightheadednessprior to first AICD discharge). Negative for aphonia, brief paralysis,difficulty with concentration, disturbances in coordination, excessive daytimesleepiness, dizziness, focal weakness, headaches, loss of balance, numbness,paresthesias, seizures, sensory change, tremors, vertigo and weakness.Psychiatric/Behavioral: Negative.Allergic/Immunologic: Negative.Past HistoryPast Medical History:Diagnosis Date Acute kidney injury Asthma Cardiomegaly COPD (chronic obstructive pulmonary disease) Coronary artery disease [employer] RCA Diabetes mellitus Fatty liver History of herniated intervertebral disc Hypertension GA (myocardial infarction) Sinusitis Umbilical herniaPast Surgical History:Procedure Laterality Date CARDIAC CATHETERIZATION N/A 12/15/2020 Procedure: Cardiac catheterization; Surgeon: Adam Mendoza MD; Laterality:N/A; EP STUDY Left 12/17/2020 Procedure: IMPLANT ICD single CHAMBER; Surgeon: Sulma Hylton MD;Laterality: Left;Family HistoryProblem Relation Age of Onset Diabetes type I Mother Peripheral vascular disease Mother Brain cancer FatherSocial HistorySocial History Narrative Remains active around his houseSocial HistorySocioeconomic History Marital status: Spouse name: Not on file Number of children: Not on file Years of education: Not on file Highest education level: Not on fileOccupational History Occupation: RetiredTobacco Use Smoking status: Current Every Day Smoker Packs/day: 2.00 Years: 30.00 Pack years: 60.00 Types: Cigarettes, Electronic Cigarettes Smokeless tobacco: Current User Tobacco comment: Currently smokes 1 to 2 cigarettes a dayVaping Use Vaping Use: Never usedSubstance and Sexual Activity Alcohol use: Not Currently Drug use: No Sexual activity: Not on fileOther Topics Concern Not on fileSocial History Narrative Remains active around his houseSocial Determinants of HealthFinancial Resource Strain: Difficulty of [...] Social Gatherings with Friends and Family: Attends Buddhism Services: Active Member of Clubs or Organizations: Attends Club or Organization Meetings: Marital Status:Intimate Partner Violence: Fear of Current or Ex-Partner: Emotionally Abused: Physically Abused: Sexually Abused:Medications and AllergiesALLERGIES/SENSITIVITIES: No Known Drug AllergiesScheduled Meds: aspirin EC 81 mg Oral Daily clopidogrel 75 mg Oral Daily metoprolol succinate 50 mg Oral Nightly montelukast 10 mg Oral Nightly normal saline flush 3 mL Intravenous Q8H NINA normal saline flush 3 mL Intravenous Q8H SCHContinuous Infusions: amiodarone infusion 1 mg/min (02/21/21 0623)PRN Meds:.albuterol, atropine sulfate, ondansetronPhysicalBlood Pressure: BP: 140/74 Pulse: Heart Rate: 79Temperature: Temp: 97.2 F Respirations: Resp: 18Admission Weight: Weight: 90.4 kg (199 lb 3.2 oz) O2 Saturation: SpO2: 96 %Today's Weight: Weight: 90.4 kg (199 lb 3.2 oz)Physical ExamPhysical ExamConstitutional: General: He is not in acute distress. Appearance: Normal appearance. He is obese. He is not ill-appearing,toxic-appearing or diaphoretic.HENT: Head: Normocephalic and atraumatic. Nose: Nose normal. Mouth/Throat: Mouth: Mucous membranes are moist.Eyes: General: No scleral icterus. Right eye: No discharge. Left eye: No discharge. Extraocular Movements: Extraocular movements intact. Conjunctiva/sclera: Conjunctivae normal. Pupils: Pupils are equal, round, and reactive to light.Cardiovascular: Rate and Rhythm: Normal rate and regular rhythm. Pulses: Normal pulses. Heart sounds: Normal heart sounds. No murmur heard.No friction rub. No gallop.Pulmonary: Effort: Pulmonary effort is normal. No respiratory distress. Breath sounds: Normal breath sounds. No stridor. No wheezing, rhonchi orrales.Chest: Chest wall: No tenderness.Abdominal: General: Bowel sounds are normal. There is no distension. Palpations: Abdomen is soft. There is no mass. Tenderness: There is no abdominal tenderness. There is no guarding orrebound. Hernia: No hernia is present. Comments: Large ventral hernia reducibleMusculoskeletal: General: No swelling, tenderness, deformity or signs of injury. Normal rangeof motion. Cervical back: Normal range of motion and neck supple. Right lower leg: No edema. Left lower leg: No edema.Skin: General: Skin is warm and dry. Capillary Refill: Capillary refill takes 2 to 3 seconds. Coloration: Skin is not jaundiced or pale. Findings: No bruising, erythema, lesion or rash.Neurological: General: No focal deficit present. Mental Status: He is alert and oriented to person, place, and time.Psychiatric: Mood and Affect: Mood normal. Behavior: Behavior normal.DiagnosticsLabs pendingAssessment & PlanT is a pleasant 60-year-old male patient who had AICD insertion 12/15/[address]id for secondary prevention. He transferred tonight from [facility] with ventricular tachycardia s/p 3 AICD treat ments.Ventricular tachycardia/defibrilator dischargeS/p 3 treatments. Received 2 at home, 3rd treatment appears appropriate for VTSee strips included in transfer recordsHe was given metoprolol succinate 50 mg po, metoprolol tartrate 5 mg IV, startedon amiodarone and given bolusPresently, in SR with old inferior infarctAdmit to telemetry IContinue amiodarone gtt and start metoprolol succinate 50 mg nightlyCheck TTE this amKeep NPO and obtain cardiology/EP consult this amCoronary artery diseaseCTO to RCAResume Plavix, ASA, b-gisela, statin, nitroCOPD (chronic obstructive pulmonary disease)StableLET, Duonebs prn, oxygen prnMontelukast 10 mg nightlyDM2 (diabetes mellitus, type 2)Hold PO agentsStart insulin frail scaleIschemic cardiomyopathyContinue Furosemide 40 mg bidTobacco useIn-patient smoking cessation consultSmoking cessation strongly encouragedHypertensionBP stableContinue b-blockerOn amiodarone gttDVT pxHeparin SQCODE STATUS: FULL CODEAdvance Directives DiscussionI had a face to face discus jackie today with Patient regarding advance directives.We discussed the patient's code status wishes and the differences between whatit means to be full code, DNR, or DNR/DNI. (A DNR patient can still beelectively intubated in a non- cardiac arrest situation. A DNR/DNI will not beintubated in any circumstance.)Questions which were addressed included: Advance DirectivesAt this time their wishes are for the patient to be made Full Code. This hasbeen entered into the chart.Other topics discussed today included Patient's values and goals of careDetails of this discussion were as follows: Advance Directive sForms completed today includenoneI spent < or = 15 minutes during the above discussion which was additional timespent separate from the hospital visit.D/W ignature: Mitchel Oleary NPDate: February 21, 2021Time: 7:22 AMThis document or parts of this document, were dictated using [employer] software.A reasonable attempt at proofreading has been made to minimize errors. Pleasecall with any questions or corrections. Name Value Range Interpretation Code Description Data Morena rce(s) Supporting Document(s) ID Date Data Source [id number] 02/21/2021 06:09:50 PM EST [facility] INFORMATIONPatient MRN Name Date of Age Gend*PT [id number] Dilan Kirk 1960 60 years M IPPT Location Admission Date/Time Visit ID Attending [id number] 02/21/21 0548 --- Griselda Faith MD([id number]) EPI ID CSN Admitting Provider [id number] Quinn Andres MD([id number])INPATIENT EP CONSULT NOTEPatient Name: Dilan Kirk of : 1960 Age: 60 yearsGender: male Primary Physician: Dov Puentes of Referral: 02/21/2021 PCP LLBXIMUTIE PHYSICIAN: Leo Hylton M.D.REQUESTING PHYSICIAN: Grace FOR REFFERAL: ICD shockHISTORY OF PRESENT ILLNESS:Dilan Kirk is a 60 years male with medical problems of prior GA spSJM ICD cared for by Dr Monte who presents with ICD shock.No recent sx of ischemia or worsening CHFThe EP service was consulted to consider ablationThe history was taken from the patient ,medical recordsFamily was not present during interview.PAST MEDICAL HISTORY:Past Medical History:Diagnosis Date Acute kidney injury Asthma Cardiomegaly COPD (chronic obstructive pulmonary disease) Coronary artery disease [employer] RCA Diabetes mellitus Fatty liver History of herniated intervertebral disc Hypertension GA (myocardial infarction) Sinusitis Umbilical herniaPAST SURGICAL HISTORY:Past Surgical History:Procedure Laterality Date CARDIAC CATHETERIZATION N/A 12/15/2020 Procedure: Cardiac catheterization; Surgeon: Adam Mendoza MD; Laterality:N/A; EP STUDY Left 12/17/2020 Procedure: IMPLANT ICD single CHAMBER; Surgeon: Sulma Hylton MD;Laterality: Left;MEDICATIONS:Scheduled Meds: aspirin EC 81 mg Oral Daily atorvastatin 80 mg Oral Nightly clopidogrel 75 mg Oral Daily heparin (porcine) 5,000 Units Subcutaneous Q12H NINA insulin lispro 1-6 Units Subcutaneous With meals sliding scale metoprolol succinate 50 mg Oral Nightly montelukast 10 mg Oral Nightly normal saline flush 3 mL Intravenous Q8H NINA normal saline flush 3 mL Intravenous Q8H SCHContinuous Infusions: amiodarone infusion 0.5 mg/min (02/21/21 1238)PRN Meds:.albuterol, atropine sulfate, ipratropium-albuterol, ondansetronALLERGIES:No Known Drug AllergiesSOCIAL HISTORY:Social HistoryTobacco Use Smoking status: Current Every Day Smoker Packs/day: 2.00 Years: 30.00 Pack years: 60.00 Types: Cigarettes, Electronic Cigarettes Smokeless tobacco: Current User Tobacco comment: Currently smokes 1 to 2 cigarettes a daySubstance Use Topics Alcohol use: Not Currently.FAMILY HISTORY:Family HistoryProblem Relation Age of Onset Diabetes type I Mother Peripheral vascular disease Mother Brain cancer FatherReview of Systems:Pertinent positives as mentioned in the HPI. Denies recent fever, chills, orchange in appetite. Denies unilateral weakness, numbness, slurred speech, orfacial droop. Denies any hematemesis, hematochezia, or melena. Denies nausea,vomiting, diarrhea, or abdominal pain.All other systems were reviewed and the remainder are negative.PHYSICAL EXAMINATION:Vital Signs:Vitals: 02/21/21 1511BP: 121/67Pulse: 61Resp: 18Temp: 98.6 FSpO2: 95%General: NAD.HEENT: externally normalNeck: Supple. No carotid bruits. No lymphadenopathy or thyromegalyLungs: Clear to auscultation bilaterally, no rales/rhonchi/wheezes.CV: regular rate & rhythm, no murmurs, rubs, or gallops. Normal S1/S2. The JVPis <8 cm.Abd: Soft, non-tender, non- distended.Extremities: No edema; no cyanosis or clubbing.Skin: Warm & dry, without jaundice or bruising.Psych: A&O x3, affect appropriate.Neuro: grossly normalPERTINENT LABS:Results from last 7 daysLab Units [id number] g/dL 15.7HEMATOCRIT % 45.6PLATELETS 10*3/uL 178SODIUM mmol/L 140POTASSIUM mmol/L 3.7CHLORIDE mmol/L 107CO2 mmol/L 27BUN mg/dL 19CREATININE mg/dL 1.06GLUCOSE mg/dL 144*CALCIUM mg/dL 8.9DIAGNOSTIC DATA:I personally reviewedEKG: sinus rhythmTelemetry Monitoring:sinusEchocardiogram EF: 35%DEVICE INTERROGATION DATADevice: [facility] [employer] medicalPacing mode: [id number] right ventricular: normal fashionThe patient is not pacemaker-dependent.The battery demonstrates normal function .Episodes detected : VT CL 350 terminated with shockConclusion: Normal device functionFINAL DIAGNOSES:1. Appropriate ICD shock2. Sustained V. Tach right bundle/right axis CL 350 ms3. Sp SJM ICD single chamber4. Old inferior wall MI5. Total RCA occlusion6. Ischemic cardiomyopathy with EF of 35%7. Chronic systolic class II congestive heart failure8. Hyperlipidemia, hypertension9. Mccnuxh13. On hemodialysis for acute renal failure via right IJ vein PLAN:1. Medical therapy with amiodarone2. If meds fail then consider RFA3. VCIK pt and Franklin Hylton M.D., [facility], [facility] FACILITYClinical Cardiac Gbflqfwglbmvdjydu84/15/2021 3:47 PM Name Value Range Interpretation Code Description Data Morena rce(s) Supporting Document(s) ID Date Data Source [id number] 02/21/2021 04:03:50 PM EST [facility] Name Value Range Interpretation Code Description Data Morena rce(s) Supporting Document(s) POC NOVA GLU 146 mg/dL (70-99) [facility] BY [facility] CL[facility]ICAL STAFF ID Date Data Source [id number] 02/21/2021 01:20:19 PM EST [facility] [place] Name Value Range Interpretation Code Description Data Morena rce(s) Supporting Document(s) POC NOVA GLU 152 mg/dL (70-99) [facility] [place] [facility] BY [facility]AFF ID Date Data Source [id number] 02/21/2021 12:37:56 PM EST [facility] Name Value Range Interpretation Code Description Data Morena rce(s) Supporting Document(s) &PDF [facility] ONQOPg9qXhJEHhJg41/YWQsaBUYgv6LaATwiPLj2VHdmRZLbD5KdiBumTKvQWwVQHE4FDD3QNDcGIGqB vQ3 [file] ICAgICAgICAgICAgICAgICAgICAgICAgICAgICAgICAgICAgICAgICAgICAgICAgICAgICAgICAgICAg ICAgICAgICAgICAgICAgICAgICAgICANCiAgICAgIC AgICAgICAgICAgICAgICAgICAgICAgICAgICAgICAgICAgICAgICAgICAgICAgICAgICAgICAgICAgIC AgICAgICAgICAgICAgICAgICAgICAgICAgICAgICAgICANCiAgICAgICAgICAgICAgICAgICAgICAgIC AgICAgICAgICAgICAgICAgICAgICAgICAgICAgICAg ICAgICAgICAgICAgICAgICAgICAgICAgICAgICAgICAgICAgICAgICAgICANCiAgICAgICAgICAgICAg ICAgICAgICAgICAgICAgICAgICAgICAgICAgICAgICAgICAgICAgICAgICAgICAgICAgICAgICAgICAg ICAgICAgICAgICAgICAgICAgICAgICAgICANCiAgIC AgICAgICAgICAgICAgICAgICAgICAgICAgICAgICAgICAgICAgICAgICAgICAgICAgICAgICAgICAgIC AgICAgICAgICAgICAgICAgICAgICAgICAgICAgICAgICAgICANCiAgICAgICAgICAgICAgICAgICAgIC AgICAgICAgICAgICAgICAgICAgICAgICAgICAgICAg ICAgICAgICAgICAgICAgICAgICAgICAgICAgICAgICAgICAgICAgICAgICAgICANCiAgICAgICAgICAg ICAgICAgICAgICAgICAgICAgICAgICAgICAgICAgICAgICAgICAgICAgICAgICAgICAgICAgICAgICAg ICAgICAgICAgICAgICAgICAgICAgICAgICAgICANCi AgICAgICAgICAgICAgICAgICAgICAgICAgICAgICAgICAgICAgICAgICAgICAgICAgICAgICAgICAgIC AgICAgICAgICAgICAgICAgICAgICAgICAgICAgICAgICAgICAgICANCiAgICAgICAgICAgICAgICAgIC AgICAgICAgICAgICAgICAgICAgICAgICAgICAgICAg ICAgICAgICAgICAgICAgICAgICAgICAgICAgICAgICAgICAgICAgICAgICAgICAgICANCiAgICAgICAg ICAgICAgICAgICAgICAgICAgICAgICAgICAgICAgICAgICAgICAgICAgICAgICAgICAgICAgICAgICAg ICAgICAgICAgICAgICAgICAgICAgICAgICAgICAgIC ANCjw/eGMvY9jvrELwbpD6E6slIq8NUz3AEE2yq5JzSAHuWSqkumCrOnzCNpXjUOWpAdkUQuk6SRsdVD 6SdOKyZ2ApL2EtWUcpIV1KJIXjVVCzbQZuABZgTLNgYmV0KRVeNRecTK2EpZYfRVehZMEoWQNiIfOvHY PgAZ9AAZNfQ341rfOtEj2KJc5PTfMwFX3wth5VUCCa IOEbMiyCTva0SZawIH9TxFQwB0BgjFKqh3cVHyBvA3AKVLR1NABbTc1BNIKvLpSeUZGcZQcoTI2fQAJg NWVLkWumydP5YI2GRV9hczVoMZ7DWsRxAm2gTs2TAjIlM8DhF3WxRKQvPWQRGAjsEH5KYDXqDZR5PVFf XGPtNACAYxTnD08wBH4RK9Hbh51vBxV4TTPbZqTyVA rmUR76zLtrfhCcyOKjgMsiPR7HMn7+DHmxpaJbRlvOTylqYEEUKsBsKJTDDxJgJQPjMSNbULBsMyW2Bd NmYa5NMWXtXGJgUBYiIdNzWDBjJNVyFUefSSRlDOslBLg6DXCiRYVtOK1JKuMvQAXlZyL3BzCcRROcDR Wxoj1NUBApJJKpDNM6PIKmCQIpUCIiWOemSZKbCDMj BztvPEKjHFTpHV9TWzCqZWNbIRX2UljbTEFbUFTdeq5FDOPcXRDbDVY2AfTbRXQqZVQaJXbrCTZoFGD1 OZhiBNCpXYWlJS8BTbXnBCWfERO7RrplGOLqXCHcrt0CFGRaUPXbWkceEDPtRXPdUIZqLRoeTDIlSJN6 ILU9ONTlJZDwJZ4KMaDqJJXkXTh9SdRmAEZbXDHucu 6VAWYbLNPfUYS6SiJwNIQoFVYkEFhcQEKnWKQ7OiZ8FSJfEXScMK4OExIbGGIxYYPmZMZpRXYmANWqlc 4YQDJmVZQuBsJdXQPhMIKmDOTfSDiaUDWqQOXgMzUlMREzVGYpPF7CVrWoFKTzPOU5DQGeTZZeZJPldq 2TWINeGXMbOEUcZjPzZNAwLJLjIHorIFLnXJD8ZHP3 ZVGnGZMdGC4BGiGiYSGkEWIsYMAuGVIdMWPwfm9JJCDyDQGxUIEtOnIgWQYrCEKcXZjeEEYsFUBaQDCz KBYnQPNrHV8GXsDeFPRfIeR4VOaaYNUmFWUrqb0KNIYyZHYpQIb0NURmXHLcFRUmOOjwCMPfXGC8FcC0 XLMqYIEyRP3HAgOpYQYbDnEqFAUpBLIlPHDarq0IKY BzPBYrJNH8VIVmKHNaELKgDBfqTPYmNRH8BFC4BCKjJUYoVC0QHgDeGPEkENUmUYTvVPTlVCVddj7HIL QgZJS8PLKoOOYvWHEaVUAtTPfwFRHxELG7DSb3ERVoOHXbHE8FXjBbAHPuZTR2IdSmVYBcEKMrme3QRJ CeOPK6NGkjIXGzCUDkASEmCVchBZHbFUA5NAYkTHAe OPAiRW7CZfMsJPHgDaCqNKVkNBCuEBBjot1BWQCyUEU0LjzmNYMgAADaPDQtNBdaBSVqPRuiJFl1MDQx ZJJoKK0SCjSxTWRqHvKoCHMrCKRlLKEwve4BYACwJFL6RcYcUuGbKIEvQZMmFSb3axHrwGYkZSr8DD3I J1QdysCqNGCDTv6Zx840JXPiVNTmLu1LW4nlCl1eNZ AmTLHPHs3OIIs9GsnhWLT2ElTbGOXmRAJoIhF1MXR8FEQsUiR6ZYA1ITP+ZUocN1AlYNTyWER9ASQ9M9 CiGxjkEZM5BEKpNfHvBId8Qf4vIVNMRn3+SKiczYIizOgxIRRLYviqFHBlGKlqVAUIYa7P ID Date Data Source [id number] 02/21/2021 09:18:46 AM EST [facility] Name Value Range Interpretation Code Description Data Morena rce(s) Supporting Document(s) POC NOVA GLU 176 mg/dL (70-99) [facility] [place] [facility] ID Date Data Source [id number] 02/21/2021 08:50:26 AM EST [facility] Name Value Range Interpretation Code Description Data Morena rce(s) Supporting Document(s) EKG [facility] DOGXXe8qEsVVXbDlu1JaTuZqDOVhJW1sjuh5T8K3uXLiN7HrhXBsv4hkZ8OzL9VoWOWmOUWBQK2IdUZi jb2 [file] RMJGQmIVMJmUvIZEJmEzKdkPmETChkRiFTCplTyKRC YyLnoMG9iKgkNHKdTnnIM5zeQoOJDu8R+YVMMGSGIVMMmWPIJENmGTLNkHmGTDRkpiFTDZlryGRDZhsy 1OM4wbu3OPCfOf4Jy1tvV3MxMe3GjUxPXILpDnC2fWi4+8AEwr1EiG4zC/i9Mxon673qkYOR3VmzPD6F CnRaMVh2QKHatzfNDM5okHQQrxZavOlY8GWLpbyiJV e87XdH3ywKFHYQY8l7zoRVXjNJ9p5kNB46dcnW53iuzFcoxM8igzb1Rd5rsIMLlfRIfCVDSZRmwdDVcZ xZFKSysaLruDWIGzGJhX5eXTHjM2TYaAYwzRAiY4GKrYwjzWMiV6PChQpmeTEmY2ESzA2kpXFlYBOVeN KWHwQtFFRNkNwC5FRqBfE6YLb9GhtleXBdJ92fHPBL bWnX0OFsYsO3KFwCeB6F3bOuE2I3OGgNyN5SSxTzL6RCPvnFz/e/25dPpo8+393eECfMBDOFmcJMYaYw wjTgFBMhhmBAlvoIOTSzLbdcCmGqFldftJcQYUGfIbJL4uz2Bhxrt4iRuWDrDVI6+Lg42Eyaeabkz9ck chbWceqbK5XxZuHZbDvcX4DxUaOxaRneI6ncRqIqkS lsN8drDtL21V9pLy3/xMheJvtFdi+nJT/jFyCkcXW7nyZoow1Wwh/OzZvpq1/OzjffPT/9dnN2+s30y/ MXL54//jApvhBW3BSfvyGIsBf6r38/A40FwsfF9viO7o0Eps1R0zM04NcScDVMEGzp4m4r4PZhN+AFx7 /pHA6rl357vuuuL55L0057exg06/aR3kD7Jv5B+dlP m+isN5N1dcTl43pOCMqigOj6f7C2l4R5frZgg5Q8bFLa39pH6S876Rqb715+fH/5Zvrbl+mvF3/+efHn E3Ps8xi8E6Igt3otOl/50uAgjam7jTodMjse1/b5C7S9m0u/5jZaXvbJl+LstgQh9lgS78oxgFMQRaPE 7SHmraonRh56+/vk6dZP5PRq58CuNdr07ylxw5A8H4 z8+k/vF9b49ie01zze5l5J84mL/7x491+Wv674/1p+J4an5PVk64Ykj95Il/3QFgw7P22vwk94+S/r75 a4m/05dwKg7eYfsukY+TLHoyVkq9/2dCe7jGIn8kSiX3uQPD9rMdLDHb3a/moi7vgqYuc99+NpOFs7Xw cdfv/65DDwrI4m8yi+gIo95slH39/EXgoe9SIWoe72 +TE2wgj3Y5t8u/djOP/w4f3xs+0QJy5P0G/wHu0mC6r8mof0Q4NJv4asKb///ert6+6etrd5APhc5a/1 6fO2NG+Ybcw3jExP0xv7c8i0/KXY6jByl23injrK/fzPtnwikPL46Co/JPiTU9xuhf4+5R00gJilYihe a4V0qgcd5hVUs00+FowtyVut7DshHen2965Y+g/Amor fuAzFfZOA6rbIkwJsjexQyOjbQGmThYSQgWeu8WY0IkVEdSSNzJ3F2YDRzsm5cNTNfPOFkmUWpMbVeLY DEZF2TvFNiLI5JOBh5PPS2NXFqIcBnKLJcDL08LVAtXBFQAe7kxnZsGqjQTuDhMU8ibhm1M3D4cKScR0 81dAmwoyNnEY3De0NujGLiMG6AnISxqJNoVRRbNYKl E4pkm5NwVnKeYXATBw0koiKoDzlKVdXdGZ6bcoh9J6V1nPpwheBlDXFKUCqoPftsUG1ozLzcyygfC9Do wKTrBLMiE2PkKSIzu39LNZEjBHaQInRiQfUvBUC7NQs2VUwcRkBgTQVsQSXzVRScIL3AaWEqTMXqNAAI SKmpWaffKBCsrQ4oyJKSt9PlL71BWUvPOdoHR64rIO mNUJtWAS2fSSWoJsS5Acn1CCZtB9GuyvCxlIEaHPOSRLngGkndACEryG0fzYwlN8FnLGV8s6WdDV5NM7 UuWWFzLPBBCJK8d0WhCFAavpbwamehDyQlOZEdTOSrIDOdFK2Qqs4kpEYcrzHaRNCNXPccBiswFP5iyY oaxuohJ2OfrKElEHQ+VgMvPF3pjc2+CjEgMCBvYmo8 ZQKyXCqbIDCpTYUzACRwY5ytZSUcZtCsFCMgLhNnLBPmWVYcQZLzF524wfQqVo5+YQ0ft1YeSlbjEHOA CSSkOFCgJUCbLFN5AvUeYMVgMQObMCGjAfO8KhMkQnCPIDImUFI4XDHmYtYdPZJhWVTrTFlpEDGqDUY1 LKo1WEGwGOOeBE2uAnKkZRRvLBJpALywLWRnTPYcie WIAXVqNVTjXIExYYY9FDBxWGDhSDilUEYvHTFkUJG5NSUxHCTuNX4xMjOdDVOhWXShBphdCEEbAXGapn PLJRFdXUYsPYP7QdHxSTUaUSXsLMbuBCIuCUPhWjk9ETQbFHJlLB0bDxYwXEDzDDI9WHroZHKbBDIahb AKMDAwMDAwMDUyMyAwMDAwMCBuIAowMDAwMDAwNjQx KYVuTCDgLU1lRoYtCKGbDUD9NJAcMAMwBKFuqnCXVWQfDEHgBWd1WJHxDUXvONNcNRefQVUbCTNqCNB4 ZJEnEBIsQY2iIoMvXITgUWSjMMNiYWWeIGCmpiIHGHXwIZRuFDW1GOCvJEAoBEZtKPdnQLSyQLGeQjv4 JQIpFRRoIB1oKqFiKEXhMIN1EOBxHWDnWAUwapCHFN PiKYO4BGL1MqNfFKStSTTdRAqrFQTzIWQwYdD3PDHhALMzNV4jCqSlKEAiMLG0VfXvXOBkLOJocbSGUF DpSDSpGYK9CqAxSNYyYDMcZQfwGFGaUSA6YMH9WSTuCDIoAI3zMoQrIRHsNUKvDNKgWIYpFEKlkgXYME OkPIS3QKJcRVUaXTZcAWWcQQsfQAAwBFWcTtO4OTYs AXAaYK2xCfPyIFRvAPIrAEAlOgS8ZuUqNkKKhPJdkHknror5OOmrX1g4SGLqSPvrNX6tigIuWGUfDeap Lx4lhFA8EZWuUyuEFa8Vn4OjqoL5dyCwMbN7TSm0IfGaSW7L ID Date Data Source [id number] 02/21/2021 08:37:31 AM EST [place], [place] [address]Patient Name: DILAN KIRKDOB: 3Sex: MOrdering Provider: MITCHEL Cartwright Prov: MITCHEL Rob Provider: Procedure Performed: / XR CHEST PORTABLEExam Date: 02/21/2021 08:32MRN: [id number] Number: [id number] Class: InpatientAccount #: [id number] for Exam: chest painTechnique: AP portable view obtained.Comparison: February 21, 2021Findings: The defibrillator is unchanged.The cardiac silhouette is prominent.No pneumothorax, pleural effusion, heart failure or pneumonia is appreciated.IMPRE SSION: Prominent cardiac silhouette.Report electronically signed by: REHANA BERGER On 02/21/2021 8:37 AMWorkstation ID: [id number] Name Value Range Interpretation Code Description Data Morena rce(s) Supporting Document(s) ID Date Data Source [id number] 02/21/2021 08:37:09 AM EST [facility] INFORMATIONPatient MRN Name Date of Age Gend*PT [id number] Dilan Kirk 1960 60 years M IPPT Location Admission Date/Time Visit ID Attending [id number] 02/21/21 0548 --- Griselda Faith MD([id number]) EPI ID CSN Admitting Provider [id number] Quinn Andres MD([id number])Cardiology ConsultName: Dilan Kirk Gender: maleDate of : 1960 Age: 60 yearsDate/Time of Admit: 02/21/2021 5:48 AM Code Status: Full CodePrimary Care ProviderReferring Physician: PCP PROVIDER CHILO Binghamurrent HistoryReason for consultation: Multiple ICD shocks secondary to true ventriculartachycardia inpatient with nonischemic cardiomyopathy but chronically occludedRCA with no chance of repair.Chief Compl aint: ICD shocks and ventricular tachycardia.HPI:This patient is a 60 years male who presented to [facility] emergencyroom last night after he was shocked twice by his ICD device. ICD checks weredone in the emergency room and showed is true shocks, before the patientreceived any treatment he received another shock in the emergency room after asustained rapid ventricular tachycardia. Patient stated that at the first shockhe felt slightly lightheaded and tried to sit up when he was shocked and thesecond and third shock did not have any symptoms. He denies any recent episodeof chest pain, shortness of breath, palpitations or syncope. Patient presentedin December 2020 with sustained ventricular tachycardia at that time hereceived an echocardiogram which showed EF between 35-40 and a cardiaccatheterization which showed chronically totally occluded 100% RCA as comparedto cardiac catheterization in 2017 which was also showing the same findings. Atthat point it was felt that his ventricular tachycardia was likely secondary toalcohol abuse and an ICD was placed.Review of Systems General Denies fever or fatigue HEENT Denies any sudden loss or change of vision. Denies sore throat. Respiratory Denies hemoptysis or cough Hematology Denies easy bruising or bleeding GI Denies melena or hematemesis. MS Denies any joint pain or muscle aches. Neuro Denies headache or localized weakness. Psych Denies depression or anxiety. Endo Denies polyuria or polydipsia. Denies dysuria or hematuriaPast HistoryPast Medical History:Diagnosis Date Acute kidney injury Asthma Cardiomegaly COPD (chronic obstructive pulmonary disease) Coronary artery disease [employer] RCA Diabetes mellitus Fatty liver History of herniated intervertebral disc Hypertension GA (myocardial infarction) Sinusitis Umbilical herniaPast Surgical History:Procedure Laterality Date CARDIAC CATHETERIZATION N/A 12/15/2020 Procedure: Cardiac catheterization; Surgeon: Adam Mendoza MD; Laterality:N/A; EP STUDY Left 12/17/2020 Procedure: IMPLANT ICD single CHAMBER; Surgeon: Sulma Hylton MD;Laterality: Left;Family HistoryProblem Relation Age of Onset Diabetes type I Mother Peripheral vascular disease Mother Brain cancer FatherSocial HistorySocioeconomic History Marital status: Spouse name: Not on file Number of children: Not on file Years of education: Not on file Highest education level: Not on fileOccupational History Occupation: RetiredTobacco Use Smoking status: Current Every Day Smoker Packs/day: 2.00 Years: 30.00 Pack years: 60.00 Types: Cigarettes, Electronic Cigarettes Smokeless tobacco: Current User Tobacco comment: Currently smokes 1 to 2 cigarettes a dayVaping Use Vaping Use: Never usedSubstance and Sexual Activity Alcohol use: Not Currently Drug use: No Sexual activity: Not on fileOther Topics Concern Not on fileSocial History Narrative Remains active around his houseSocial Determinants of HealthFinancial Resource Strain: Difficulty of [...] Social Gatherings with Friends and Family: Attends Buddhism Services: Active Member of Clubs or Organizations: Attends Club or Organization Meetings: Marital Status:Intimate Partner Violence: Fear of Current or Ex-Partner: Emotionally Abused: Physically Abused: Sexually Abused:Medications and AllergiesALLERGIES/SENSITIVITIES: Patient has no known drug allergies.No current facility-administered medications on file prior to encounter.Current Outpatient Medications on File Prior to EncounterMedication Sig albuterol (PROVENTIL HFA;VENTOLIN HFA) 108 (90 BASE) MCG/ACT inhaler Inhale 2puffs every 4 (four) hours as needed for wheezing aspirin (ASPIRIN) 81 MG chewable tablet Chew 81 mg daily atorvastatin (LIPITOR) 80 MG tablet Take 80 mg by mouth nightly bisoprolol (ZEBETA) 5 MG tablet Take 5 mg by mouth nightly clopidogrel (PLAVIX) 75 MG tablet Take 75 mg by mouth daily Ertugliflozin L-PyroglutamicAc (Steglatro) 15 MG TABS Take 15 mg by mouthdaily furosemide (LASIX) 40 MG tablet Take 40 mg by mouth 2 (two) times a day metFORMIN (GLUCOPHAGE-XR) 500 MG 24 hr tablet Take 1,000 mg by mouth dailywith dinner montelukast (SINGULAIR) 10 MG tablet Take 10 mg by mouth every morning nitroglycerin (NITROSTAT) 0.[address] 0.4 mg under the tongue every5 (five) minutes as needed for chest painScheduled Meds: aspirin EC 81 mg Oral Daily atorvastatin 80 mg Oral Nightly clopidogrel 75 mg Oral Daily heparin (porcine) 5,000 Units Subcutaneous Q12H NINA insulin lispro 1-6 Units Subcutaneous With meals sliding scale metoprolol succinate 50 mg Oral Nightly montelukast 10 mg Oral Nightly normal saline flush 3 mL Intravenous Q8H NINA normal saline flush 3 mL Intravenous Q8H SCHContinuous Infusions: amiodarone infusion 1 mg/min (02/21/21 0623)PRN Meds:.albuterol, atropine sulfate, ipratropium-albuterol, ondansetronPhysicalBMI: Body mass index is 31.2 kg/m .Blood Pressure: BP: 127/70 Pulse: Heart Rate: 62Temperature: Temp: 97.6 F Respirations: Resp: 18Admission Weight: Weight: 90.4 kg (199 lb 3.2 oz) O2 Saturation: SpO2: 96 %Physical Exam General Pleasant, comfortable HEENT Eyes no conjunctival pallor or icterus. Mouth is moist, normal mucousmembranes. Neck no JVD, no thyromegaly or lymphadenopathy Chest Non-tender to palpation Respiratory Lungs clear to auscultation, no rales or wheezing, no use ofaccessory muscle noted with breathing CVS Heart normal S1and S2, no murmurs, clicks, or gallops. PMI is deviatedlaterally and sustained. Carotids normal upstroke, no bruits.Abdominal aorta is normal size. No abdominal bruits.Peripheral pulses are 2+and equal bilaterally in all extremities. GI Soft, non-tender, non-distended, no palpable HSM, bowel sounds are present. Musculoskeletal No abnormal kyphoscoliosis or chest wall deformity Neuro Alert, orientedx3, mood and affects are normal Derm No rashes, or ulcers Extremeties No edema, no significant varicosity.DiagnosticsLabBMP:Lab ResultsComponent Value Date NA 140 02/21/2021 K 3.7 02/21/2021 CL 107 02/21/2021 CO2 27 02/21/2021 ANIONGAP 6 (L) 02/21/2021 CALCIUM 8.9 02/21/2021 GLU 144 (H) 02/21/2021 BUN 19 02/21/2021 CREATININE 1.06 02/21/2021 GFRAA >60 02/21/2021 GFRNONAA >60 02/21/2021ardiac:Lab ResultsComponent Value Date TROPONINI 0.05 (H) 02/21/2021 PROBNP 566 (H) 02/21/2021BC with Diff:Lab ResultsComponent Value Date WBC 10.8 02/21/2021 RBC 4.82 02/21/2021 HGB 15.7 02/21/2021 HCT 45.6 02/21/2021 MCV 94.6 02/21/2021 MCH 32.6 (H) 02/21/2021 MCHC 34.5 02/21/2021 RDW 15.0 (H) 02/21/2021 PLT 178 02/21/2021 MPV 8.5 02/21/2021 LYMPHOPCT 15.5 (L) 02/21/2021 MONOPCT 5.8 02/21/2021 EOSPCT 0.4 02/21/2021 BASOPCT 1.0 02/21/2021 NEUTROABS 8.4 (H) 02/21/2021 MONOABS 0.6 02/21/2021 BASOSABS 0.1 02/21/2021MP:Lab ResultsComponent Value Date NA 140 02/21/2021 K 3.7 02/21/2021 CL 107 02/21/2021 CO2 27 02/21/2021 ANIONGAP 6 (L) 02/21/2021 BUN 19 02/21/2021 CREATININE 1.06 02/21/2021 BCR 17.9 02/21/2021 GLU 144 (H) 02/21/2021 CALCIUM 8.9 02/21/2021 PROT 6.7 12/13/2020 PROT 6.7 12/13/2020 ALBUMIN 3.5 02/21/2021 GLOB 3.9 02/21/2021 AGRC 0.9 02/21/2021 ALKPHOS 60 02/21/2021 LABBILI 0.4 02/21/2021 AST 19 02/21/2021 ALT 38 02/21/2021 GFRAA >60 02/21/2021 GFRNONAA >60 02/21/2021HgbA1c:Lab ResultsComponent Value Date HGBA1C 6.7 (H) 12/13/2020Hyperlipidemia:Lab ResultsComponent Value Date CHOL 107 12/13/2020 TRIG 170 12/13/2020 HDL 30 (L) 12/13/2020 CHOLHDL 3.6 12/13/2020 LDLCALC 43 12/13/2020iver Functions:Lab ResultsComponent Value Date LABBILI 0.4 02/21/2021 BILIDIR 0.2 12/15/2020 IBILI 0.5 12/15/2020 ALKPHOS 60 02/21/2021 ALT 38 02/21/2021 AST 19 02/21/2021 ALBUMIN 3.5 02/21/2021 PROT 6.7 12/13/2020 PROT 6.7 12/13/2020Magnesium:Lab ResultsComponent Value Date MG 2.0 02/21/2021Thyroid:Lab ResultsComponent Value Date TSH 1.587 02/21/2021Imaging/Testing:Chest x-ray reviewed by me and not read officially showed cardiomegaly and nosignificant lung disease.EKG: Sinus rhythm, incomplete right bundle branch block, old inferiorinfarction.Assessment & PlanPrincipal Problem: Ventricular tachycardiaActive Problems: COPD (chronic obstructive pulmonary disease) DM2 (diabetes mellitus, type 2) Tobacco use Coronary artery disease Hypertension Defibrillator dischargeRecommendations:Patient presented to [facility] emergency room and attending called me from thereand I have recommended addition of IV amiodarone, p.o. metoprolol succinate andIV metoprolol prior to transfer to make sure that he is stable during thetransfer. Since patient received all those medications he had not hadrecurrence of his shocks and currently his rhythm is sinus. I will askelectrophysiology in review of his complete work-up not showing primary causefor his ventricular tachycard ia which could be repaired to consider ventriculartachycardia ablation.Signature: Desiree Donald, MDDate: February 21, 2021Time: 8:24 AM Name Value Range Interpretation Code Description Data Morena rce(s) Supporting Document(s) ID Date Data Source [id number] 02/21/2021 08:08:35 AM EST [facility] Name Value Range Interpretation Code Description Data Morena rce(s) Supporting Document(s) TSH,ULTRASENSITIVE @ 1.587 mIU/L (0.360-4.170) [facility] AT [address] [place] [address] N [address] [address] ID Date Data Source [id number] 02/21/2021 08:08:35 AM EST [facility] Name Value Range Interpretation Code Description Data Morena rce(s) Supporting Document(s) NT PRO BNP 566 pg/mL (0-125) [facility] ID Date Data Source [id number] 02/21/2021 08:08:35 AM EST [facility] Name Value Range Interpretation Code Description Data Morena rce(s) Supporting Document(s) TROPONIN I 0.05 ng/mL (<0.05) [facility] Less than 0.05: Myocardial injury unlike lyGreater than or equal to 0.05: Highly suggestive of myocardial injuryCorrelation with rise and/or fall ofserial troponins, clinical symptomsand ECG changes is necessary. ID Date Data Source [id number] 02/21/2021 08:08:35 AM EST [facility] Name Value Range Interpretation Code Description Data Morena rce(s) Supporting Document(s) SODIUM 140 mmol/L (136-145) [facility] POTASSIUM 3.7 mmol/L (3.6-5.2) [facility] CHLORIDE 107 mmol/L (100-108) [facility] CO2 27 mmol/L (22-31) [facility] ANION GAP 6 mmol/L (7-16) L [facility] UREA NITROGEN 19 mg/dL (7-24) [facility] CREATININE 1.06 mg/dL (0.80-1.30) [facility] BUN/CREAT RATIO 17.9 RATIO (10.0-20.0) [facility] GLUCOSE 144 mg/dL (70-99) H [facility] CALCIUM 8.9 mg/dL (8.4-10.2) [facility] TOTAL PROTEIN 7.4 g/dL (6.4-8.2) [facility] ALBUMIN 3.5 g/dL (3.5-4.6) [facility] GLOBULIN 3.9 g/dL (2.7-4.3) [facility] ALB/GLOB RATIO 0.9 RATIO [facility] ALKALINE PHOSPHATASE 60 U/L (45-117) [facility] BILIRUBIN,TOTAL 0.4 mg/dL (0.0-1.0) [facility] PLEASE NOTE:Total bilirubin results may be falselyelevated in patients taking Eltrombopag. AST (SGOT) 19 U/L (11-39) [facility] ALT (SGPT) 38 U/L (12-78) [facility] GFR >60 ml/min/1.73m2 (>59) [facility] GFR ( AMER) >60 ml/min/1.73m2 (>59) [facility] GFR INTERPRETATION [facility] --NORMAL KIDNEY FUNCTION OR MILD DISEASE - GFR >OR= 60CHRONIC KIDNEY DISEASE - GFR 15 - 59RENAL FAILURE - GFR <15 Est. GFR calculation based on the MDRDstudy equation, which assumes a steadystate for creatinine. Est. GFR should notbe used for medication dosing. ID Date Data Source [id number] 02/21/2021 08:04:51 AM EST [facility] Name Value Range Interpretation Code Description Data Morena rce(s) Supporting Document(s) MAGNESIUM 2.0 mg/dL (1.7-2.4) [facility] ID Date Data Source [id number] 02/21/2021 07:56:32 AM EST [facility] SPEC EXP DATE 02/24/2021ATI ENT ABO/Rh A POSITIVEANTIBODY SCREEN NEGATIVETESTING SITE PERFORMED AT [address] [place] [address] Name Value Range Interpretation Code Description Data Morena rce(s) Supporting Document(s) TYPE AND SCREEN [facility] ID Date Data Source [id number] 02/21/2021 07:22:54 AM EST [facility] Name Value Range Interpretation Code Description Data Morena rce(s) Supporting Document(s) APTT 25.9 s (22.0-34.3) [facility] Shoemaker ID Date Data Source [id number] 02/21/2021 07:22:54 AM EST [facility] Name Value Range Interpretation Code Description Data Morena rce(s) Supporting Document(s) PT 11.5 s (9.2-11.9) [facility] INR 1.09 [facility] SUGGESTED THERAPEUTIC RANGES USING INR F ORSTABILIZED ANTICOAGULATED PATIENTS:STANDARD DOSE THERAPY INR 2.0-3.0 DVT, PE, PREVENT DVT OR EMBOLISMHIGH DOSE THERAPY INR 2.5-3.5 PREVENT EMBOLISM FROM MECHANICAL HEART VALVE ID Date Data Source [id number] 02/21/2021 07:05:55 AM EST [facility] Name Value Range Interpretation Code Description Data Morena rce(s) Supporting Document(s) WBC 10.8 10*3/uL (4.1-11.0) [facility] RBC 4.82 10*6/uL (4.60-6.10) [facility] HGB 15.7 g/dL (13.5-18.0) [facility] HCT 45.6 % (41.0-53.0) [facility] MCV 94.6 fL (80.0-95.0) [facility] MCH 32.6 pg (27.0-32.0) H [facility] MCHC 34.5 g/dL (32.0-36.0) [facility] RDW 15.0 % (10.5-14.5) H [facility] PLT 178 10*3/uL (150-450) [facility] MPV 8.5 fL (7.1-10.7) [facility] NEUT % 77.3 % (35.0-75.0) H [facility] LYMPH % 15.5 % (16.0-52.0) L [facility] MONO % 5.8 % (0.0-8.0) [facility] EOS % 0.4 % (0.0-5.0) [facility] BASO % 1.0 % (0.0-4.0) [facility] NEUT # 8.4 10*3/uL (1.8-7.7) H [facility] LYMPH # 1.7 10*3/uL (1.2-4.8) [facility] MONO # 0.6 10*3/uL (0.0-0.8) [facility] Eosinophils [#/volume] in Blood by Automated count 0.0 10*3/uL (0.0-0 .5) [facility] BASO # 0.1 10*3/uL (0.0-0.2) [facility] ID Date Data Source [id number] 02/21/2021 07:26:44 AM EST [facility] Name Value Range Interpretation Code Description Data Morena rce(s) Supporting Document(s) COLOR [facility] APPEARANCE [facility] SPEC GRAV URINE 1.033 (1.003-1.030) H [facility] PH URINE 6.0 (5.0-7.5) [facility] LEUK ESTERASE (NEG) [facility] NITRITE URINE (NEG) [facility] PROTEIN URINE (NEG) [facility] GLUCOSE URINE 3+ (NEG) A [facility] KETONE URINE (NEG) [facility] UROBILINOGEN 1.0 mg/dL (0-1.0) [facility] [place] BILIRUBIN URINE (NEG) [facility] BLOOD/HGB URINE (NEG) [facility] ID Date Data Source [id number] 02/21/2021 07:08:36 AM EST [facility] Name Value Range Interpretation Code Description Data Morena rce(s) Supporting Document(s) URN CULTURE HOLD [facility] ID Date Data Source [id number] 01/28/2021 10:38:00 AM EDT [facility] ([facility]) Name Value Range Interpretation Code Description Data Morena rce(s) Supporting Document(s) Magnesium [Mass/volume] in Serum or Plasma 2.1 mg/dL 1.8-2.4 [facility] ([facility]) ID Date Data Source [id number] 01/28/2021 10:38:00 AM EDT [facility] ([facility]) Name Value Range Interpretation Code Description Data Morena rce(s) Supporting Document(s) Glucose, Fasting 141 mg/dL 70-100 [facility] Blood Urea Nitrogen 16 mg/dL 7-18 [facility] ([facility]) Creatinine For GFR 1.30 mg/dL 0.70-1.30 [facility] ([facility]) Sodium Level 137 meq/L 136-145 [facility] ([facility]) Glomerular Filtration Rate Laboratory test result MED[facility] ([facility]) <content>Units are mL/min/1.73 m2</content>
<content></content>
<content>Chronic Kidney Disease Staging per NKF:</content>
<content></content>
<content>Stage I & II GFR >=60 Normal to Mildly Decreased</content>
<content>Stage III GFR 30- 59 Moderately Decreased</content>
<content>Stage IV GFR 15-29 Severely Decreased</content>
<content>Stage V GFR <15 Very Little GFR Left</content>
<content>ESRD GFR <15 on GROUP ROOMS COORDINATOR</content>
<content></content> Chloride Level 100 meq/L 98-107 [facility] ([facility]) Potassium Serum 4.4 meq/L 3.5-5.1 [facility] ([facility]) Anion Gap 5 meq/L 8-16 [facility] ([facility] Carbon Dioxide Level 32 meq/L 21-32 [facility] ([facility]) Ast/Sgot 21 U/L 7-37 [facility] ([facility] Calcium Level 9.9 mg/dL 8.5-10.1 [facility] ([facility]) Alkaline Phosphatase 64 U/L 45-117 [facility] ([facility]) Alt/SGPT 32 U/L 12-78 [facility] ([facility] Bilirubin,Total 0.5 mg/dL 0.2-1.0 [facility] ([facility]) Total Protein 7.6 GM/DL 6.4-8.2 [facility] ([facility]) Albumin 3.9 GM/DL 3.2-5.2 [facility] ([facility]) Albumin/Globulin Ratio 1.1 [facility] ([facility]) ID Date Data Source [id number] 01/28/2021 10:38:00 AM EDT [facility] ([facility]) Name Value Range Interpretation Code Description Data Morena rce(s) Supporting Document(s) Natriuretic peptide.B prohormone N-Terminal [Mass/volu me] in Serum or Plasma 762 pg/mL [facility] ([facility]) ID Date Data Source [id number] 01/21/2021 01:39:10 PM EDT [facility]FORMATIONPatient MRN Name Date of Age Gend*PT [id number] Dilan Kirk 1960 60 years M IPPT Location Admission Date/Time Visit ID Attending [id number] 12/13/20 1238 --- --- EPI ID CSN Admitting Provider [id number] Crystal Neal MD([id number]) [facility] DISCHARGE SUMMARYPatient Name: Dilan Kirk of : 1960 Age 60 yearsPrimary Physician: PCP PROVIDER REQUESTED PCP Phone: NoneAdmission Date: 12/13/2020 Discharge Date: 12/17/2020[facility] will be discharged from [facility] to home.Discharge Diagnoses:Principal Problem: Coronary artery disease involving [place] coronary artery of [place] heart withunstable angina pectorisActive Problems: Sustained VT [...] Twice Dailyfor Loop Diuretics, Starting Sun12/17/2020, Until 01/16/2021, E-PrescribeCONTINUE these medications which have CHANGED Detailsclopidogrel (PLAVIX) 75 MG tablet Take 1 tablet (75 mg total) by mouth daily,Starting Sun12/17/2020, Until 01/16/2021, E-PrescribeCONTINUE these medications which have NOT CHANGED [...] summary.Items needing special attention:Followup with Nephrology and [facility] Course:Dilan Kirk is a 60 y.o. male with PMHx significant for HTN, DM2, COPD,CAD, GA. He states he drank 7-8 wine coolers [...] persisting into today, promptinghim to go to [facility] evaluation. There he was found to be in VT with"rate at 170". He was cardioverted x 1 at 200J with conversion to SR with STelevations in lead III and lateral ST depressions. He was loaded with ASA andplavix, heparin gtt was started and he was transferred to [facility] ER for Cardiologyevaluation. Noted to be in [facility], Nephrology was consulted. Thought to besecondary to [facility]. S/p urgent HD in ICU on 12/13 and HD again on 12/16 withimprovement in renal function. Maddie was pulled out prior to discharge.For acute hepatitis, Gastroenterology was consulted. Started on NAC protocolwith improvement.For sustained Vtach, Ca rdiology and EP [facility] cath on 12/15 showing [...] rce(s) Supporting Document(s) ID Date Data Source [id number] 12/27/2020 08:12:00 AM EDT [facility] Name Value Range Interpretation Code Description Data Morena rce(s) Supporting Document(s) Magnesium [Mass/volume] in Serum or Plasma 1.9 mg/dL 1.8-2.4 [facility] ([facility]) ID Date Data Source [id number] 12/27/2020 08:12:00 AM EDT [facility] ([facility]) Name Value Range Interpretation Code Description Data Morena rce(s) Supporting Document(s) Blood Urea Nitrogen 25 mg/dL 7-18 [facility] ([facility]) Glucose, Fasting 168 mg/dL 70-100 [facility] Glomerular Filtration Rate Laboratory test result MED[facility] ([facility]) <content>Units are mL/min/1.73 m2</content>
<content></content>
<content>Chronic Kidney Disease Staging per NKF:</content>
<content></content>
<content>Stage I & II GFR >=60 Normal to Mildly Decreased</content>
<content>Stage III GFR 30- 59 Moderately Decreased</content>
<content>Stage IV GFR 15-29 Severely Decreased</content>
<content>Stage V GFR <15 Very Little GFR Left</content>
<content>ESRD GFR <15 on GROUP ROOMS COORDINATOR</content>
<content></content> Creatinine For GFR 1.26 mg/dL 0.70-1.30 [facility] ([facility]) Potassium Serum 4.5 meq/L 3.5-5.1 [facility] ([facility]) Sodium Level 137 meq/L 136-145 [facility] ([facility]) Chloride Level 99 meq/L 98-107 [facility] ([facility]) Anion Gap 8 meq/L 8-16 [facility] ([facility] Carbon Dioxide Level 30 meq/L 21-32 [facility] ([facility]) Calcium Level 9.5 mg/dL 8.5-10.1 [facility] ([facility]) Alt/SGPT 116 U/L 12-78 [facility] ([facility] Ast/Sgot 36 U/L 7-37 [facility] ([facility]) Bilirubin,Total 0.7 mg/dL 0.2-1.0 [facility] ([facility]) Alkaline Phosphatase 71 U/L 45-117 [facility] ([facility]) Total Protein 7.4 GM/DL 6.4-8.2 [facility] ([facility]) Albumin 3.7 GM/DL 3.2-5.2 [facility] ([facility]) Albumin/Globulin Ratio 1.0 [facility] ([facility]) ID Date Data Source [id number] 12/27/2020 08:12:00 AM EDT [facility] ([facility]) Name Value Range Interpretation Code Description Data Morena rce(s) Supporting Document(s) Natriuretic peptide.B prohormone N-Terminal [Mass/volu me] in Serum or Plasma 1141 pg/mL [facility] ([facility]) ID Date Data Source [id number] 12/17/2020 06:57:27 PM EDT [address] [id number] Name: DILAN KIRKDOB: 1960ex: MOrderyajaira Provider: Sulma Cristobal Prov: Sulma Sanchez Provider: Procedure Performed: / XR CHEST PORTABLEExam Date: 12/17/2020 18:56MRN: [id number] Number: [id number] Class: InpatientAccount #: [id number] for Exam: icdTechnique: AP portable view obtained.Comparison: December 13, 2020Findings: ICD lead is projected over the right ventricle. There is moderate cardiac megaly. No adenopathy is revealed. No pneumothorax demonstrated. No pleural effusion is demonstrated. Lungs are hypoinflated but clear.IMPRESSION: Cardiomegaly. No pneumothorax.Report electronically signed by: HAILEE CHARLES On 12/17/2020 6:57 PMWorkstation ID: [id number] Name Value Range Interpretation Code Description Data Morena rce(s) Supporting Document(s) ID Date Data Source [id number] 12/17/2020 06:54:08 PM EDT [facility] Name Value Range Interpretation Code Description Data Morena rce(s) Supporting Document(s) POC NOVA GLU 112 mg/dL (70-99) H [facility] [place] [facility] CLINICAL STAFF ID Date Data Source [id number] 12/17/2020 05:58:49 PM EDT [facility] Name Value Range Interpretation Code Description Data Morena rce(s) Supporting Document(s) &PDF [facility] [id number] Dcm [file] [id number] ID Date Data Source [id number] 12/17/2020 11:50:01 AM EDT [facility] Name Value Range Interpretation Code Description Data Morena rce(s) Supporting Document(s) POC NOVA GLU 193 mg/dL (70-99) H [facility] [place] [facility] CLINICAL STAFF ID Date Data Source [id number] 12/17/2020 09:15:22 AM EDT [facility] Name Value Range Interpretation Code Description Data Morena rce(s) Supporting Document(s) POC NOVA GLU 149 mg/dL (70-99) [facility] [place] [facility]INICAL STAFF ID Date Data Source [id number] 12/17/2020 10:43:50 AM EDT [facility] Name Value Range Interpretation Code Description Data Morena rce(s) Supporting Document(s) APTT 60.9 s (22.0-34.3) [facility] ID Date Data Source [id number] 12/17/2020 01:55:46 AM EDT [facility] Name Value Range Interpretation Code Description Data Morena rce(s) Supporting Document(s) APTT 73.2 s (22.0-34.3) H [facility] ID Date Data Source [id number] 12/16/2020 05:57:46 PM EDT [facility] Name Value Range Interpretation Code Description Data Morena rce(s) Supporting Document(s) POC NOVA GLU 104 mg/dL (70-99) [facility] [place] [facility] CLINICAL STAFF ID Date Data Source [id number] 12/16/2020 05:43:04 PM EDT [facility] Name Value Range Interpretation Code Description Data Morena rce(s) Supporting Document(s) APTT 56.3 s (22.0-34.3) H [facility] ID Date Data Source [id number] 12/16/2020 12:34:46 PM EDT [facility] INFORMATIONPatient MRN Name Date of Age Gend*PT [id number] Dilan Kirk 1960 60 years M IPPT Location Admission Date/Time Visit ID Attending [id number] 12/13/20 1238 --- Crystal Neal MD([id number]) EPI ID CSN Admitting Provider [id number] Crystal Neal MD([id number]) Attestation signed by rCystal Neal MD at 12/16/2020 12:34 PMPatient seen and examined independently on 12/13, I discussed management and Iagree with plan outlined by Griselda Grimaldo. Plan for emergent dialysis.Signature: Crystal Neal, MDDate: December 16, 2020Time: 12:34 PM Inpatient History & PhysicalWilldebi KirkMRN:[id number] from [facility]: VT s/p cardioversion, elevated troponinHPI: 60 years-old male with pmhx significant for CAD with ICM (EF 40%), DM2, HTNpresents 12/13/20 to [facility] as a transfer from [facility]. He was c/o dizzinesssince Sunday - states he drank too much at a field day with persistentdizziness and paraesthesias in his extremities -- arrived to [facility] ED, foundto be in VT requiring cardioversion x 1 (200 J). He states his paraesthesias anddizziness resolved -- Post cardioversion EKG SR with ST elevations to lead III,lateral depressions. 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 Wright ([place]). Spoke to Dr. Erickson(cardiology) for consult, will also consult nephrology.Assessment and Plan:Principal Problem: Coronary artery disease involving [place] coronary artery of [place] heart withunstable angina pectorisActive Problems: VT (ventricular tachycardia) COPD (chronic obstructive pulmonary disease) DM2 (diabetes mellitus, type 2) HTN (hypertension) Tobacco use Elevated troponin JOHN (acute kidney injury) Elevated LFTsVT, elevated troponin, Hx of single vessel CAD (RCA), s/p cardioversion,currently SR with occasional PVC- continue aspirin/plavix- continue heparin drip- cardiology consult is pending- r/o [id number], denies any previous history of renal problems, [...] 2- check A1c- serum glucose 150 (from [facility])- home meds: metformin, Steglatro- monitor BG, start lantus 6u nightly, 2u ISSDVT prophylaxis: heparin dripCode status: FULL CODED/w Dr. Dwyer Medical History:Past Medical History:Diagnosis Date Asthma Cardiomegaly COPD (chronic obstructive pulmonary disease) Coronary artery disease Diabetes mellitus History of herniated intervertebral disc Hypertension GA (myocardial infarction) Sinusitis Umbilical herniaPast Surgical History:No past surgical history on file.Medications:Prior to Admission medicationsMedication Sig Start Date End Date Taking? Authorizing ProvideramLODIPine (NORVASC) 10 MG tablet Take 10 mg by mouth daily Yes MD Carlosbisoprolol (ZEBETA) 5 MG tablet Take 5 mg by mouth daily Yes MD CarlosErtugliflozin L-PyroglutamicAc (S teglatro) 15 MG TABS Take by mouth YesHistorical Provider, MDmontelukast (SINGULAIR) 10 MG tablet Take 10 mg by mouth nightly YesHistorical Provider, Jtlbuterol (PROVENTIL HFA;VENTOLIN HFA) 108 (90 BASE) MCG/ACT inhaler Inhale 2puffs every 4 (four) hours as needed for wheezing Historical Provider, Jtspirin (ASPIRIN) 81 MG chewable tablet Chew 81 mg daily Historical Provider,Jttorvastatin (LIPITOR) 80 MG tablet Take 80 mg by mouth daily HistoricalProvider, Chilolopidogrel (PLAVIX) 75 MG tablet Take 75 mg by mouth daily HistoricalProvider, losartan (COZAAR) 25 MG tablet Take 25 mg by mouth daily Historical Provider,IvyetFORMIN (GLUCOPHAGE) 850 MG tablet Take 850 mg [...] Griselda Grimaldo, NPDate: December 13, 2020Time: 1:50 [id number] Name Value Range Interpretation Code Description Data Morena rce(s) Supporting Document(s) ID Date Data Source [id number] 12/16/2020 12:04:32 PM EDT [facility] Name Value Range Interpretation Code Description Data Morena rce(s) Supporting Document(s) POC NOVA GLU 115 mg/dL (70-99) H [facility] [place] [facility] CLINICAL STAFF ID Date Data Source [id number] 12/16/2020 11:09:20 AM EDT [facility] Name Value Range Interpretation Code Description Data Morena rce(s) Supporting Document(s) PHOSPHORUS 1.6 mg/dL (2.5-4.5) L [facility] ID Date Data Source [id number] 12/16/2020 11:09:20 AM EDT [facility] Name Value Range Interpretation Code Description Data Morena rce(s) Supporting Document(s) SODIUM 136 mmol/L (136-145) [facility] POTASSIUM 3.6 mmol/L (3.6-5.2) [facility] CHLORIDE 100 mmol/L (100-108) [facility] CO2 31 mmol/L (22-31) [facility] ANION GAP 5 mmol/L (7-16) L [facility] UREA NITROGEN 22 mg/dL (7-24) [facility] CREATININE 1.00 mg/dL (0.80-1.30) [facility] BUN/CREAT RATIO 22.0 RATIO (10.0-20.0) H [facility] GLUCOSE 125 mg/dL (70-99) H [facility] CALCIUM 8.2 mg/dL (8.4-10.2) L [facility] GFR >60 ml/min/1.73m2 (>59) [facility] GFR ( AMER) >60 ml/min/1.73m2 (>59) [facility] GFR INTERPRETATION [facility] --NORMAL KIDNEY FUNCTION OR MILD DISEASE - GFR >OR= 60CHRONIC KIDNEY DISEASE - GFR 15 - 59RENAL FAILURE - GFR <15 Est. GFR calculation based on the MDRDstudy equation, which assumes a steadystate for creatinine. Est. GFR should notbe used for medication dosing. ID Date Data Source [id number] 12/16/2020 10:51:49 AM EDT [facility] Name Value Range Interpretation Code Description Data Morena rce(s) Supporting Document(s) WBC 10.1 10*3/uL (4.1-11.0) [facility] RBC 4.59 10*6/uL (4.60-6.10) L [facility] HGB 15.2 g/dL (13.5-18.0) [facility] HCT 43.4 % (41.0-53.0) [facility] MCV 94.4 fL (80.0-95.0) [facility] MCH 33.0 pg (27.0-32.0) H [facility] MCHC 35.0 g/dL (32.0-36.0) [facility] RDW 14.7 % (10.5-14.5) H [facility] PLT 130 10*3/uL (150-450) L [facility] MPV 8.8 fL (7.1-10.7) [facility] ID Date Data Source [id number] 12/16/2020 11:07:19 AM EDT [facility] Name Value Range Interpretation Code Description Data Morena rce(s) Supporting Document(s) APTT 56.6 s (22.0-34.3) H [facility] ID Date Data Source [id number] 12/15/2020 11:02:30 PM EDT [facility] Name Value Range Interpretation Code Description Data Morena rce(s) Supporting Document(s) APTT 61.8 s (22.0-34.3) H [facility] ID Date Data Source [id number] 12/15/2020 06:29:11 PM EDT [facility] Name Value Range Interpretation Code Description Data Morena rce(s) Supporting Document(s) POC NOVA GLU 167 mg/dL (70-99) H [facility] [place] [facility] CLINICAL STAFF ID Date Data Source [id number] 12/15/2020 05:45:14 PM EDT [facility] Name Value Range Interpretation Code Description Data Morena rce(s) Supporting Document(s) &PDF [facility] [id number] yZW [file] [id number] ID Date Data Source [id number] 12/15/2020 01:37:03 PM EDT [facility] Name Value Range Interpretation Code Description Data Morena rce(s) Supporting Document(s) POC NOVA GLU 116 mg/dL (70-99) H [facility] [place] [facility] CLINICAL STAFF ID Date Data Source [id number] 12/15/2020 10:28:49 AM EDT [facility]FORMATIONPatient MRN Name Date of Age Gend*PT [id number] Dilan Kirk 1960 60 years M IPPT Location Admission Date/Time Visit ID Attending ProviderHEMODIALYSIS 12/13/20 1238 --- Crystal Neal MD([id number]) EPI ID CSN Admitting Provider [id number] Crystal Neal MD([id number])INPATIENT EP CONSULT NOTEPatient Name: Dilan Kirk of : 1960 Age: 60 yearsGender: male Primary Physician: PCP PROVIDER REQUESTEDDate of Referral: 12/15/2020 PCP Phone: NoneCONSULTING PHYSICIAN: Leo Hylton M.D.REQUESTING PHYSICIAN: CardiologyANURADHA FOR REFFERAL: Sustained VTHISTORY OF PRESENT ILLNESS:Dilan Kirk is a 60 years male with medical problems of coronaryartery disease, hypertension, smoking, hyperlipidemia cared for by Dr Bravo who presents with sustained mm VT. He was cardioverted with 200 J tosinus rhythmHe is a transfer from [facility].He is known to have chronically occluded RCA and prior inferior wall myocardialinfarction.He had a left heart cath in 2005 at [place] chronic RCA occlusion jjloagoq-rh-pphog collaterals. No significant other disease. Repeat cath [...] mellitus History of herniated intervertebral disc Hypertension GA (myocardial infarction) Sinusitis Umbilical herniaPAST SURGICAL HISTORY:No [...] normalPERTINENT LABS:Results from last 7 daysLab Units 12/14/2104HEMOGLOBIN g/dL 15.5 15.7 -- -- -- 15.9HEMATOCRIT [...] heart attack, stroke, oreven .Leo Hylton M.D., [facility], [facility] F[facility]ILITYClinical Cardiac Electrophysiology12/15/2020 8:57 AM Name Value Range Interpretation Code Description Data Morena rce(s) Supporting Document(s) ID Date Data Source [id number] 12/15/2020 08:50:28 AM EDT [facility] Name Value Range Interpretation Code Description Data Morena rce(s) Supporting Document(s) POC NOVA GLU 107 mg/dL (70-99) H [facility] [place] [facility] CLINICAL STAFF ID Date Data Source [id number] 12/15/2020 08:46:34 AM EDT [facility] INFORMATIONPatient MRN Name Date of Age Gend*PT [id number] Dilan Kirk 1960 60 years M IPPT Location Admission Date/Time Visit ID Attending ProviderHEMODIALYSIS 12/13/20 1238 --- Crystal Neal MD([id number]) EPI ID CSN Admitting Provider [id number] Crystal Neal MD([id number])CARDIOLOGY CONSULTATIONName: Dilan Kirk Gender: maleDate of : 1960 Age: 60 yearsDate/Time of Admit: 12/13/2020 12:38 PM Code Status: Full CodePrimary Care Provider / Referring Physician: PCP PROVIDER REQUESTEDInformant:HISTORYCHIEF COMPLAINT: No chief complaint on file.HPI:This patient is a 60 years male who was transferred here from [place] [address] after complaining of dizziness and going to [...] mellitus History of herniated intervertebral disc Hypertension GA (myocardial infarction) Sinusitis Umbilical herniaPSH: No past [...] Social Gatherings with Friends and Family: Attends Buddhism Services: Active Member of Clubs or Organizations: [...] not clear, given the presenceof a known DISTRICT TRAFFIC CHIEF of the right coronary2. Sustained monomorphic VT3. [...] rce(s) Supporting Document(s) ID Date Data Source [id number] 12/15/2020 09:19:32 AM EDT [facility] Name Value Range Interpretation Code Description Data Morena rce(s) Supporting Document(s) PHOSPHORUS 2.2 mg/dL (2.5-4.5) L [facility] [place] ID Date Data Source [id number] 12/15/2020 09:19:32 AM EDT [facility] Name Value Range Interpretation Code Description Data Morena rce(s) Supporting Document(s) SODIUM 135 mmol/L (136-145) L [facility] POTASSIUM 3.5 mmol/L (3.6-5.2) L [facility] CHLORIDE 100 mmol/L (100-108) [facility] CO2 27 mmol/L (22-31) [facility] ANION GAP 8 mmol/L (7-16) [facility] UREA NITROGEN 38 mg/dL (7-24) H [facility] CREATININE 1.38 mg/dL (0.80-1.30) H [facility] BUN/CREAT RATIO 27.5 RATIO (10.0-20.0) [facility] GLUCOSE 117 mg/dL (70-99) H [facility] CALCIUM 8.4 mg/dL (8.4-10.2) [facility] GFR 53 ml/min/1.73m2 (>59) L [facility] GFR ( AM) >60 ml/min/1.73m2 (>59) [facility] GFR INTERPRETATION [facility] --NORMAL KIDNEY FUNCTION OR MILD DISEASE - GFR >OR= 60CHRONIC KIDNEY DISEASE - GFR 15 - 59RENAL FAILURE - GFR <15 Est. GFR calculation based on the MDRDstudy equation, which assumes a steadystate for creatinine. Est. GFR should notbe used for medication dosing. ID Date Data Source [id number] 12/15/2020 09:03:38 AM EDT [facility] Name Value Range Interpretation Code Description Data Morena rce(s) Supporting Document(s) WBC 9.1 10*3/uL (4.1-11.0) [facility] [place] RBC 4.70 10*6/uL (4.60-6.10) [facility] HGB 15.3 g/dL (13.5-18.0) [facility] HCT 44.2 % (41.0-53.0) [facility] MCV 94.0 fL (80.0-95.0) [facility] MCH 32.5 pg (27.0-32.0) H [facility] MCHC 34.5 g/dL (32.0-36.0) [facility] RDW 14.3 % (10.5-14.5) [facility] PLT 111 10*3/uL (150-450) L [facility] MPV 9.1 fL (7.1-10.7) [facility] ID Date Data Source [id number] 12/15/2020 09:10:42 AM EDT [facility] Name Value Range Interpretation Code Description Data Morena rce(s) Supporting Document(s) APTT 134.6 s (22.0-34.3) H [facility] ALERTED CRITICAL RESULT TOBILL ([id number]) IN [facility] AT 0908 ON 12/15/[place] [id number] ID Date Data Source [id number] 12/15/2020 08:23:57 AM EDT [facility] Name Value Range Interpretation Code Description Data Morena rce(s) Supporting Document(s) WBC 8.0 10*3/uL (4.1-11.0) [facility] [facility] [place] RBC 4.77 10*6/uL (4.60-6.10) [facility] HGB 15.5 g/dL (13.5-18.0) [facility] HCT 44.7 % (41.0-53.0) [facility] MCV 93.8 fL (80.0-95.0) [facility] MCH 32.5 pg (27.0-32.0) H [facility] MCHC 34.7 g/dL (32.0-36.0) [facility] RDW 14.3 % (10.5-14.5) [facility] PLT 95 10*3/uL (150-450) L [facility] MPV 9.2 fL (7.1-10.7) [facility] ID Date Data Source [id number] 12/15/2020 08:17:35 AM EDT [facility] Name Value Range Interpretation Code Description Data Morena rce(s) Supporting Document(s) BILIRUBIN,UNCONJ. 0.5 mg/dL (0.0-0.7) [facility] ID Date Data Source [id number] 12/15/2020 08:17:25 AM EDT [facility] Name Value Range Interpretation Code Description Data Morena rce(s) Supporting Document(s) MAGNESIUM 1.8 mg/dL (1.7-2.4) [facility] ID Date Data Source [id number] 12/15/2020 08:17:25 AM EDT [facility] Name Value Range Interpretation Code Description Data Morena rce(s) Supporting Document(s) SODIUM 135 mmol/L (136-145) L [facility] POTASSIUM 3.4 mmol/L (3.6-5.2) L [facility] CHLORIDE 102 mmol/L (100-108) [facility] CO2 26 mmol/L (22-31) [facility] ANION GAP 7 mmol/L (7-16) [facility] UREA NITROGEN 40 mg/dL (7-24) H [facility] CREATININE 1.41 mg/dL (0.80-1.30) H [facility] BUN/CREAT RATIO 28.4 RATIO (10.0-20.0) H [facility] GLUCOSE 94 mg/dL (70-99) [facility] CALCIUM 8.4 mg/dL (8.4-10.2) [facility] TOTAL PROTEIN 6.3 g/dL (6.4-8.2) L [facility] ALBUMIN 3.1 g/dL (3.5-4.6) L [facility] GLOBULIN 3.2 g/dL (2.7-4.3) [facility] ALB/GLOB RATIO 1.0 RATIO [facility] ALKALINE PHOSPHATASE 50 U/L (45-117) [facility] BILIRUBIN,TOTAL 0.7 mg/dL (0.0-1.0) [facility] PLEASE NOTE:Total bilirubin results may be falselyelevated in patients taking Eltrombopag. AST (SGOT) 969 U/L (11-39) H [facility] ALT (SGPT) 3334 U/L (12-78) H [facility] GFR 51 ml/min/1.73m2 (>59) L [facility] GFR ( AMER) >60 ml/min/1.73m2 (>59) [facility] GFR INTERPRETATION [facility] --NORMAL KIDNEY FUNCTION OR MILD DISEASE - GFR >OR= 60CHRONIC KIDNEY DISEASE - GFR 15 - 59RENAL FAILURE - GFR <15 Est. GFR calculation based on the MDRDstudy equation, which assumes a steadystate for creatinine. Est. GFR should notbe used for medication dosing. ID Date Data Source [id number] 12/15/2020 08:17:25 AM EDT [facility] Name Value Range Interpretation Code Description Data Morena rce(s) Supporting Document(s) BILIRUBIN,CONJUGATED 0.2 mg/dL (0.0-0.3) [facility] ID Date Data Source [id number] 12/14/2020 08:12:03 PM EDT [facility] Name Value Range Interpretation Code Description Data Morena rce(s) Supporting Document(s) APTT 16.2 s (22.0-34.3) L [facility] PERFORMED BY ALTERNATE METHOD. REFERENCE RANGE = 24.7 - 33.3 ID Date Data Source [id number] 12/14/2020 04:54:41 PM EDT [facility] Name Value Range Interpretation Code Description Data Morena rce(s) Supporting Document(s) POC NOVA GLU 175 mg/dL (70-99) H [facility] PERFORMED BY [facility] ID Date Data Source [id number] 12/14/2020 12:31:36 PM EDT [facility] Name Value Range Interpretation Code Description Data Morena rce(s) Supporting Document(s) POC NOVA GLU 105 mg/dL (70-99) H [facility] BY [facility] ID Date Data Source [id number] 12/14/2020 09:18:33 AM EDT [facility] Name Value Range Interpretation Code Description Data Morena rce(s) Supporting Document(s) POC NOVA GLU 153 mg/dL (70-99) H [facility] BY [facility] ID Date Data Source [id number] 12/14/2020 08:58:22 AM EDT [facility] Name Value Range Interpretation Code Description Data Morena rce(s) Supporting Document(s) &PDF [facility] UARGJw5eIvJSWbHf06/DEEzcPOZzx4UyQVxuKUa9RLlqVNXoD9HvoDuxAWxYKjAWXQ2NXW4TYDwJCWeP yZW [file] wpN1tmODxwSNA4F69S0l5z97038v380lB3aJwonaCS 17RMTjUNdTfsXPHlYVqLaeWXwnUvkvdhN7QBhPVQH1oke2hkQ0ev/od grinder operator/soESYSGo4ziaCnm0Y79+18K [file] AgICAgICAgICAgICAgICAgICAgICAgICAgICAgICAg ICAgICAgICAgICAgICAgICAgICAgICAgICAgICAgICAgICAgICAgICAgICAgICAgICAgICAgICAgICAg ICAgDQogICAgICAgICAgICAgICAgICAgICAgICAgICAgICAgICAgICAgICAgICAgICAgICAgICAgICAg ICAgICAgICAgICAgICAgICAgICAgICAgICAgICAgIC AgICAgICAgICAgICAgDQogICAgICAgICAgICAgICAgICAgICAgICAgICAgICAgICAgICAgICAgICAgIC AgICAgICAgICAgICAgICAgICAgICAgICAgICAgICAgICAgICAgICAgICAgICAgICAgICAgICAgDQogIC AgICAgICAgICAgICAgICAgICAgICAgICAgICAgICAg ICAgICAgICAgICAgICAgICAgICAgICAgICAgICAgICAgICAgICAgICAgICAgICAgICAgICAgICAgICAg ICAgICAgDQogICAgICAgICAgICAgICAgICAgICAgICAgICAgICAgICAgICAgICAgICAgICAgICAgICAg ICAgICAgICAgICAgICAgICAgICAgICAgICAgICAgIC AgICAgICAgICAgICAgICAgDQogICAgICAgICAgICAgICAgICAgICAgICAgICAgICAgICAgICAgICAgIC AgICAgICAgICAgICAgICAgICAgICAgICAgICAgICAgICAgICAgICAgICAgICAgICAgICAgICAgICAgDQ ogICAgICAgICAgICAgICAgICAgICAgICAgICAgICAg ICAgICAgICAgICAgICAgICAgICAgICAgICAgICAgICAgICAgICAgICAgICAgICAgICAgICAgICAgICAg ICAgICAgICAgDQogICAgICAgICAgICAgICAgICAgICAgICAgICAgICAgICAgICAgICAgICAgICAgICAg ICAgICAgICAgICAgICAgICAgICAgICAgICAgICAgIC AgICAgICAgICAgICAgICAgICAgDQogICAgICAgICAgICAgICAgICAgICAgICAgICAgICAgICAgICAgIC AgICAgICAgICAgICAgICAgICAgICAgICAgICAgICAgICAgICAgICAgICAgICAgICAgICAgICAgICAgIC AgDQogICAgICAgICAgICAgICAgICAgICAgICAgICAg ICAgICAgICAgICAgICAgICAgICAgICAgICAgICAgICAgICAgICAgICAgICAgICAgICAgICAgICAgICAg SFVkNKJbWKFnHFQmIRo8R8mhPPFjULGpLH1vQSa3Vq4+KInXXzLdPRC0shMcoE2LZX5ul3IqWSqyFXXq k0IvXJi8JB5UFITkKAhaXV6BUGhqpq4EPDUlAGEueP UVk8aaVdStJUC8GXJuYqbbFD2HPKVqG0dqycQnKOEpLQIXLMhuCOSEAH1EMoPhO2NrkO98CVXODy9+DQ iderAgIzaTOpF3WSXzz5DhFLq7WZ0GHQIvFQqrYQ7VAHDarU9eQLdfRI0BRrChSIUvOOMDUbMlQ87wrW CfBQk8P4CxCrCjXZRvHdrwVIDvAPqwNbHeGIDeUfPl DQogID4+ID4+CWeeYK3IVEljquPmRSGyQa3WQNScVPS6KKUbgRJpQtQpWFALMMwwLS3IkLLoASF3tH0w JGeqPCGhVNDyM2pKGzGlxPrhWN78vPuormPdfAXvYBv+Kt5DPF8hq1YyXKw1sfAsHUebNCS4DTyqFOMd AOUkPXSdCIH0NBY0ZODOPzOaQMLoBCJsLTkyZQObJC Oisd5EKTIaMWRdHGSwJqAcLZPiTKXuFNjcUVOyNTV3GAqxSSBuDVWdKF0OIqBtCSMfVWBoSGlgLRLtSB Asdm2BGYGkXDFmHpVsXRQhHXRgKEAoWLcaUCPjFTYrDeD9QONdZOVoCR2VEhVjEODkXDH0JBLySXDvAP Jmss8MYEVyPUHaLUj6SVUvYOMnAUHvBCrlOAZkQPA7 MPT4RVKbPNJvPQ7MAyCcIVJqHHVqOMNlOEQwAFRqvu8ANBFhCQKuOaAvQIVbBRRcQWMiKYplPXBpUEH0 FYnhVBCfTTQzOE1SChDbQVSmWRhbQLWlQRIwXESdsy1JBDMeAURhUgJ3TJZpMDFjVMGhODzlADDpGQFl VNI3DYWrOTUiUQ8TWaYvPXWjTFN6OWTqOINgYWDdvr 2HUWGaHFZlXsf5JZPpYHAdGFFtZOpzKWHdUIUiEpZ7MNKiZIBrZT8UZaHiSKJjPCVhVSDnDEByXMTosq 7XWROdWBFjYHG6CYRnITKdQWYiFJavSDRnFDT6XAf7TWJgOEOpTP0RVuHfQCUhUAD9EQUqCRHjOVGrme 2INBGfZAOjHMbgGABeONTiEHJvSDljGQFiVUK4ULf6 LZSxDBDnVW1CDbImQXOvZyL0BdIoQDUyUCOhhp9LSRSpUNSqAPb1HJXyEQYwJOSjEIf0ccZouQEuQIe6 WT4VL3RwrnEqOyrHLu5Jz231YHG9MFLmZr7NV9ryMj2cSWBvBGGXOt3XQFt2XXPlLqdpNLl9ISIdSpO2 DIK9SFCxMsc4FoVwLLjrHFd+ZMeiXAX6ZtD8KCvnXt W8IUZ5BsaqDKRpSFzdMqMaJMIfZO7mJHWHHc3+KMnyhVRjfXzxKGALEvY9HAEuNKtaHDYEYl9V ID Date Data Source [id number] 12/14/2020 08:33:38 AM EDT [address] [address]Dqsgyqg Name: DILAN KIRKDOB: 1960ex: MOrdering Provider: GRISELDA GRIMALDOAuthorineno Prov: GRISELDA GRIMALDORefruth ann Provider: Procedure Performed: / US RENAL KIDNEY BILATERALExam Date: 12/13/2020 16:01MRN: [id number] Number: [id number] Class: InpatientAccount #: [id number] for Exam: akiTechnique: Real time sonographic images [...] CONSTANTINE JANG On 12/14/2020 8:33 AMWorkstation ID: [id number] - PS360 Name Value Range Interpretation Code Description Data Morena rce(s) Supporting Document(s) ID Date Data Source [id number] 12/14/2020 08:31:00 AM EDT [address] [address]Xrktadi Name: DILAN KIRKDOB: [birth year]Sex: MOrdering Provider: GRISELDA GRIMALDOAuthorineno Prov: GRISELDA Reed Provider: Procedure Performed: / US RIGHT UPPER QUADRANTExam Date: 12/13/2020 16:01MRN: [id number] Number: [id number] Class: InpatientAccount #: [id number] for Exam: elevated LFTsTechnique: Real time sonographic [...] CONSTANTINE JANG On 12/14/2020 8:31 AMWorkstation ID: [id number] - PS360 Name Value Range Interpretation Code Description Data Morena rce(s) Supporting Document(s) ID Date Data Source [id number] 12/14/2020 07:45:05 AM EDT [facility]FORMATIONPatient MRN Name Date of Age Gend*PT [id number] Dilan Kirk 1960 60 years M IPPT Location Admission Date/Time Visit ID Attending [id number] 12/13/20 1238 --- Crystal Neal MD([id number]) EPI ID [facility] Admitting Provider [id number] Crystal Neal MD([id number]) Attestation signed by Liliana Harmon DO at 12/14/2020 7:45 AMII was not present for procedure but was available. I agree with documentation.Signature: ANURADHA Spencerate: December 14, 2020Time: 7:44 AM --Invasive LineDate/Time: [...] rce(s) Supporting Document(s) ID Date Data Source [id number] 12/14/2020 07:39:37 AM EDT [facility] Name Value Range Interpretation Code Description Data Morena rce(s) Supporting Document(s) EKG [facility] EUAMIp3wBfKLQcAes5JeWyWvSRFeSD0rbwi2N8V5kQTsN4JhkIGxl9wnG3MrH6ZxHOZzYMKSGK7LcIVp jb2 [file] ZXjKCs788MTCZxWDO+furniture crater+IrKOLObd02vNqpCrPg5GKcZrDJVpHxceGNst180FZCJ8ztXnxDwPrDzRIW qHzFTw3NocDDKCuSjt2cGeNixHRiIYE1bWr8mz0nooS+ogXpcRVD24xXkoOrhUl3owJ0CJ8rzywNQPzZ a/TIVsWr4rCKzibN/DZqP0Zs5iBCh1V6qO9b5HeDXq oLJ+zK6dWsEyr4gfPeaOboQckLwNwntfleUzV+hkuZ27ZyRFrjIYK0HQ/8E3/l36PU6Tzi9nw/cjLiCH AxL3Y4lI/4JzrwT/bW37W6tj3fFN43c5Kd+QOaAyidpQ74pJyZF1gI780s1JlYA8Jd3y+8iT/wNlWarA yq0ZDW5oLld/cIo3DK2SqmyjJDlxuFtlBt+ERvqoMu ZyPH7MWAiyg/3Vwanw0rLmpem5980IqDkotrQM9BlGhwKggxmdcYHUl0rzstWzSrIMhuV2q5xPQleEoB jtI0xRbNJtSQ5TvQGgdLlw3KLuKOOCrR95Y8MWmTSLhLkiRJokjpSC9301h5kjl02az1GSA4XgdMj8xQ Iui9o6BeSsJ58QmhiZ9MAryiMuinUd2Uj09sYTNd8O JVUE8Z5/OdfdXbyI2mGSzQW4alrJYzdqBDvGINIgfuuom/dZ2yYf2IPBuxZ0tiZ1zfsgQU5sD273kwOa Hribmb+uMQKBVnMnbAY1s0R9Kw9Yx4W5v61Ez7xiG3WkdT1ShpF/RYS2JjV+auONEVJ/hGaWA0HVukgL mygVnvzhLuOxwab6HseIzHqGvKDU6Xnh4lQnMFaSSA V54m8Bav/YGrDlztQHGiu/oDxYnuagfuylF/1OeE98dcawsFCu5UJMUBcbkh32z47N9lKOm5ONWLxYsJ fivBBq7GsTjqxVNBF2kHKWfvjGiJmguZKRYVvoDDA1OFBN5g7CkbTR/qE4/6xKP+4MgtIj+4Jqj8X8b1 0uLxaD7XVz6pG7LAULb8KqyIsAqqlkOWkAWhCQuzUj 0jdrA/mKC42Moh/mTPtD+xg/3JXNiKE/welder gas tungsten arc+P+xB/ayxploc56Ug6YS/x4hY3Skft4loMYbDjjSHZFCB [file] ujx4erblryE3OQ0MO2FGkIQ5e9dRYXo4W65H8M/Tiera/ES0tP3pODhl/yxxAEpfyxfjmxAZMS+u2r5Yx gH7djyU6cxgF+Mbud4OPQ+PRMztqvgv6xR7W86AzfB 246wtlla9p8fNzRE5HiP5lqch48mV8632jCbj2HFpsm8A8Zyk6ZV2zFDYt9tRaPudlR76XuyNbs6N9cg z4d4iWvVM+IZ5Gc1O3ik5Nu6V+VD0iw9apoXV8yK3BanDJ4dN74RUsAxMgcweXEENK+NX3qiFhJ/Cwa7 MF2zY6kj0I8NYprXdT8ZASneMgdltr+XiK836ZuSex ZmFGlw5t4icT2H7j1VqiuQy00t+0tnP3815Vf2sktsKNo1U5CzFsChP2l+p3B/JFdHvxdVoJnF0v/lr1 hE/M127B/Nlqdjq2m8zkYWuJ2sLWhI90QroG+8F7b24t3Qpl4GMaKvkK6zS+U4e3jUyColeh8nl1pZWA oYL07vrXmww3FQ+qAqQfpG0YDcS36AewwP60BaVu0c 1cKzlFHMEZ318voR87VVdL6dHofi6l6pkcQNYNrjOONJp0fMLp+DVf5cu/pi1GXmHvWDyRA/LF+x8mnb wx/QC9RrZIktGLzeyJ1kS5SGWLLxxa/GO4J45NYOTDFNtjtv/TBlosa3oUjznvBVmT5psSTJ+PIG9pxE znCvaFTePkVii27aJIm7Z/ha66GfQ6Pi2S1eevp95M CDWE27PYvrF+ARFlfoIC9xxBcq9Kh8V1M9cDtjyqxnRT/92DW6yW4yl5JcqYdrl51xl+WjVnZxusEuTr dT9tK6/SIANCT7yUYGMjI81Y0g76qooIzTuNEDN88eC2KMJMrFZFJmjh8g8JYNBa4QSuMdIP42ovO8h/ yxxE2k/II5mkgrsbcK+WOJYvLHEsXkjyXus+SP5SvW hmczxhIOpy7ZuVgQR7fG8CrYpT97i5U/lq+X8jeLAhdkAKSrI+9UI+R3elvUkA7GWRa/+1//6z//uC6L O7r6z//553/87/Y///application packaging consultant//3nv/7zL0//Q8njn//+l6u4/OWgcUBWdt0aMHX60c4Xr/iNm3zgiM5mwTW1 [file] il1nFvm/32xbVvufXvM/Iu7ysh6mTWpfP9lh73i/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 uuE3CV/99cvXerb+lo1+1+ra6OzRy4jVFl/vUvm0kmbr21K7y/TS3kNs5oAr1rV8zgY7EioB/qoifzad thhlcchb13no+4sp42mh8nHMQu953Fmn7HsV/YP2b3+BVqxhWh061a1R3hOSKI4/vZ5/+QbjqKzc8e3B ndvfanP2+M+FdhbqG/Vfd8MQjxp5WQz/+7wIu86Ka7 H/z106S7n6UOUicgoM+6MaZgMuF8AJR68+kdeGnxz8YI61U+X6fA8vyr6atXuqtp28y21502ff7otv2G qGwaq58dL/qgnVkv3dJkk43EorL9M+1d7a6zK0v+C516Hd/h1inU1t1Z9qq/5fdkuAhXvt8A2evtr0o/ t6Tdj5wm/1d3kF+Brd5q+/KzK+xK+/f5Z3l56JV0d2 QSY5wJwe6g6t8Bv/u/6wfNxd903kvlDkfQ+Qf/tbNPz6++o48m9/KxzEr7/u8HM3X9GIb9sJTmuaCb7r Xd+nj0WRYfyu+7s+kY/88HL68rqQubeVbdg878ufqLiogYqGv0X/6FezjxsQ1e3Ib5d5B1oNqfSp9v7M rRBs5gDjy/s4Scw0Pqvo05m5W84EzsD0eZ/vn4PL8n OD+X7N7ps6c3X7X4Y3EnQ3qZ/A/d2M8rCg9p/6k4MFa7rwfmpqgs+Y7OpF3+klnj9X5lQX4/Jk53Bq3d 4YR12a2x840lc6W3M/cXg+//IljZfv/h1pbTy+rx1nqWMXfi+//RRisyu546bG/FiA93l+/pwOXwAw29 pvezEmkADoALmDUvzqJYF6a9NYna021wF8VhgeAwWm nXr+et3vPXA00qEN0f1xamFf9545/Eo7IKj60Gyyuy++4yfYs8333nrBiTm34cl9clhN+pF7l3rh/tpZ ZcP4y9/PLyFrNcF4NqmQwA93PnK05/d0rtC5Yn4hVI68aBBl+p6iEM8t4Hp9PrS+iBp7tcga2turmRSP pb/P52v/RWmcJq7227B2Knscq1R8J5bw59zr1tnSJ7 /F0zt/q4gfPv9Rbp/8zRzvg4t06qTN9Tl56lZNLYumH588Fh+z96/ORr020JOVN/U3wOM28m03yXEvvc d3NFsuuE26TqOez/swc6UF3gjHUbNMk+AHOlPgiG7u5xIUT06OtaqvOlTDud+o3/fPE65VbmhwEG7vv9 rzkv4Asrn4yxmupUHA/I07XSIB80IY14jsVk/w3f4/ 5rCFdnxj8p3yH453UI//1VeF72CBd8SW/QK+3sLWw36T59B8rqiX/GefQ5n0xwo4Zc/r/6NrtlHnvya+ ofVdhE1esTJx/k6n40xaC/FVvasfbtGN/uso6wv5Idi4NfnsG03F54w4oRAFm+Nop+/rt1Ha6NgFcprL I8849gWgy/ymzhVTSeypL47dqmBXA/ndi6+fnDaa0f y7+YvYmNdp2as5+UeBXlbgkQF295996t921v9ek/Jjg6zYs4XSQoJtbtv++kF+bG15Qgm1s4ntc5nmS+ nvjKkX2bCP8o4Ca2943Qiphpq/G1059Zl+vhYYr7/H+q10o5jy2wvLm5Q+7W/RdkAP+jdb7hNoamjg/x wa2qNpE6EvCDrVQIm6WNXB+zpvZfCl6nAZ+/3iq6U7 nz/2n49lAoHYgKQ8JkKysyc/DxYW13EFZbiN/Sg1Gy5v7xc80grx33u21q9/tbCotTdHz+2SuFV9XKFe x77v1Jk5jc5hJkKheqnGD4ga8jgB/9Lv2Ib0w4N+I/8gv/lXc/R5NZN/nPHTy1eAh4zlXa9irhUejyjr J/Lnd0/R4J8Rl12/hxYxxJlo28Kc0n/cKAg0oHdp4D 16s47C4ZNbyTm/tqmDj1piD02Vn1T/lX0B/2jmbs6IW+zp9mu7mxYb5nzlq+hv8a+eEijbCt0X14eP92 V/Z74RhmVdCuXzzHA6KfzZ/Z39/zsn+uwS18h3iAua0bO/96B2rn6i1CKajT+5Ud+Rj/0Kbud0P7/Mariela Af/V3o72p+1IzUy0hQ04s8/DyQQ5M1dlmV+evDgXMt jVq6Ni7/MlAs9K5fU/Ddz4ZMS/SFqxs1oT/86Tq8NSRbeW83qVxwqAh+1bT+35+mqI/+Gvpr2L+20I6h gzMgSCj2ga+mob+G/hrWs2F+E1/ze1Rc8J4g20XgfgzSbWO9tX0FR2EgVy7D/blSfc1Qq7x+Nhm2h48r E19V/kb7G+4ezBl6yzoB7+PqST2a9pvPg8832Nabp/ 5NfJXtJ//nMSv2MjPM+dtSu0iJ9nu5yai6Yp8drp74ChdUUy4wgvL/evPnQbo1Fw6Betcok1R+fg616C /yr6o++nfkJu46V/fLex1LkzjH/h70F/gpfaHf18eh6cb6B593YJOJ+yv3DteVdi/HFcQ59xpxg9P/Bt Zz9P/rINmZuljt6E0TzL0LaiPR/Pow0yVXTlkCOeeQ gfUcuI+u8UtWSdCni3AW2i1QxYEcn0fcYEJRj82BnmjNqVqbbS/fArl4f2Z0xyq8H/c9vtaxIrJrvAbA 8xoH+Qft3/6efLfndyW+nmhNm6AUXiY7/C7p+9vKG49CM4Ih4i5d80Yloud1i/4K+kc8abL60mo+zpKW Pn6uueQB2NFp2//mwpxj2m7z7mil2tsXDbButp6/l/ N5eCUhFyLE1yfDZr03pRN/tcC/PuyUneXjLb7lD/FVjoP2/l2K/gJfLeCrNTG/ia+ggLVO7kJi+z5as/ mxC/inEoai7LBhijaYs+TmqrKsLn05N+T9N0oXAH+rO3dUp4qG/Ca+mccKi9sshbm1zhUeLa4O7WWNqF At9Hf1+amU3126MkkuqF/9uzC/wFcL+QpXf3CeJ5vX /idl1TEVOdps2b/Bfn3ZzbAyVYg8zIlqNv6WExahZr2oSfe/8fMy7F/AtkwtV6h+Al+utJm4X8kg1hG8 qMzWi2nR+Rp2eg1rghYq5zl2qADfcaRzi5+553L4OhP17mE3Cl9vPcu0SA2kQ/6gPRgv4c6033/Ebenezer+8 79+V+CrHyjG/ia+PlmVHxw04ymrP/Ca+xrnsF6rpwg 8zcjpeVm2tcja8Ii3yqXo688wMa5B/F1+lzOLq/uvWekb+ladcnsxV/P+ef/4YvwbMhIX2Rp2WgbP+qv yWp1yV/5KbXI1/4PF9syujlYbaRMt8P+34aNoc+Tr2iy7DTq7/zXR4T51PZ3Iji5+Jgql53rV9zFPciI A18clocea4cziwkfQ+A1+mxTr8l1telv1O6wimGZ7y AXu43e5rL0YBX9wZ+IyEwfQ7n54sqgBdi6KCLK/8Q7rw8bqRl214Js9+Gs+enn3778gvgUU/tUp4x1Nl 48sZ15p1+n/JJlEGI6iO7M9/x48TAq3zfz8tI220tsS63iF/XvhabhO0PnHkdHMzmvW/kYF/TsVmt5dg SSv+Vdbv/1+T/l+cgE7bEelnsPTsC23n7i6Tqs2/0L T/743eg6wki7qF642oy4RC/Kurpf/f0VCmaPmzQQ96Kwv6x+36wqrkqk2/+Wfmu7/+fs+//LvHr3b+V/ /XXy/aDtq/+/dlVE5yuevgn6N+FXr8Pc/ev1ctv/bj1cp/kH381VxkQ5269pBxv8av4zbnvaosY2ifT7 vq+GQ2qkm1pD++zofGx876+F/+5T/eYB43EviUY90z amESh9G/fdXwv+fLf66+NH2v1QqaTym+lzstrfQ197uCJ1irO7xKgNy3d8Cb0Sx1NqVfgx+r+XW2+j4y yAdtbbTT+qs2Zx6t4ynZTu6if/LnauVeitnvd9s2/cXRM4io+Mmi0YnX+Mqs/iyMYkDm76Pt/zVbaN++ +1ISO3F01o4c4/vXgK/M+v41a/xs1v/7V7v+7S9rvG G78bPt/t+33fqElvgqadjadCa+ekr7iyKiFKnWi5smxwat9gc55a51ubl/8UhOOev04dpo4Rv3bqWf/6 Cd1t+4ivSv/kAX78OaZnvpLf7An9useu0gjOMivU8SB45p1UwGD526mL3cqIF8VEz0/p0tF1/TsQw46e d9m5sZQ42F8s6TD1+5jtYkA3xS5ODwFedEa9bYwD7c kyjhU7safef/8+riq5d/+4zuOaWtmDhlNV9LoS/R/u5z9aC/F531XhOteXt7hxd2sJWdPY4BcsNaLr5H V/Gu85chx/hV2ynuC/FVrv/A+NnqjxyIa8H28ann6vgBoFKk5f0F2ppbWs5DWKJ9WrqdEnCcJ/4ezZ/c o/JAMv4ws9+dAu3RHu0/4gSl782+lWZ+33eo4bdgF/ DXXEk5H/kb+a3/aQPpFiTTmlnLT6MecKBSE81X/ZaW72/p+2hLy/p6HY7Gtx+qDvoL/fYN/fYN/fYt6K +jt2FOxaw+3ZY+kqmcd4wQ2d68F/7QeTUNn3T0YH/18PcnQ34vsufZ7ptp2F/tgrFOy76tM76okJbi0m 3+1Qb/aoN/taF/sgCy8EQ4+z7aGmi/+tJ64j44ie++ Z//l02f91z7+1Qb/as/m52zoX+3Z/Oc9mx+5q85IcAsv0FsP68i40l69vO44LK/awcgkl8nqxjpji3V+ 6HI5xA2S/eFg4sS0v7nq/l8m97I6WPbN1y5nru3NDe4lZ+eeuZu74T/2wnoG/4oxutcwXq2uQ/PrtqG/ 7pkgM90b9hx68prysAY/eTaXS5y3RoUt1Py40OPiKU +G+ZMfS7xhjfdsWXa4l54DdIe/H+2N+i7Dc23UC+7d/Gv0X71ru7vyda4VMe1waRUkcvixbnk61h/d/4 Cx4lO1d6+3IR/cG/3drU+6euWb6Q/ayb/KcU7+8Gobvws83MNksz/7d0M+aK8nSfiI+nZ90i1rX4+99T r6q85r8fhb451U1//7G/WK1u5F9cj/9/fB/O2MO9xw t++D+yj5V/nd5F/y1DB4AclvS/d3iI4N9mN53/aYfYEajz2P7ucddG1H4g+PT/Ckjh0bDgW4P/p/fwfW M/TbN/TbdyjqY/0E2u6suZGu1b1InGplcIgKS1l6d+GrkgU53XhrR3E4IcLavX327PXI24lDh70lZ3L4 rQ/oy42cRq6/Dx1rQ14/HfjKR/NzfBi+2/Pro+9fh3 zQR9+/Plr/5fzLV49O4VBoT6aFCdrxLm7nZEnQ/f7/aHs97iM0PKyPfan2G/RUG804+Hank+6JKawoX36 +Rnk7SsKHaAVa4jjHtUty2jkp3Nz843fptPgzKkob4X74UT2sj8l1bX/3UswikoumQ5098n2OeP31e/Q R9I9ijklqPga/q3cdNc8m15iCNFRwGk/K7M/V5u578 kxrmhr527torwWk6//pc+G7rA/s0tL/R/b6RBM24Zw46cagQZyLizlu+pCf/KttcrR/rq+7DmZJ7uQk/ qvLTPiXzb3+rzu3v/ef1NVG/7ga80hg5zmV+Is1i9gsKly9ljTk4Upr71JBm6a8Nt/gq/4U11aqoan17 67k+C50ZrrT/+Orc/1C/+Orcf0+/+OrVv/zJy//0i6 /m85uomox/ZLfmtzvwlZd+e34L+9ewnq3/c52vogDwXxp1i5kkH5olvydW94D/sqz/6+/EvBlw4ww7qN TDVGulczFxl7vrMNp16asSCrm7SpQ/F1/Y4LtLJyV63rYRC/fFxVczx/biq5f/6+97/fO3PlplV5/Na+ Ttqd+p5UbpA7S+fAXwUQ1pP/84JIwNa8G+Gx763Tvx 1862KvaJ0t4TC3+96rQ+sDv2r+M+7z0c5VOjoarM/UwX7IGdF1s758z26h+M29083I/Rvnd9q01yBN+t /+cz5uKqTG9Rqdk4S9mebr9lPH8wG9ilb7d+53d33vzaA4I+xncbb/hxtHNQ/6B+5s954At56fnmR1Sy oAnRo193wn9yX+bGf0XLLD0DD+V3E19V/kL7uI/CUH /jh6GrhDdcdM/o/wWPtk/xCLTf+QeKFz7hxqC5Ssht7/eMxpNndH/PaPvfA/7VAf/qAF+o3ybRJ7n0hP 86o/+YelNJ29kwBN5Cn9h8au9x+Z7cXj0bc3mo8x/gSO/fk/kr4fM9kb76qb/sDX5P2j13tcK/7a2O9P zid63waB2p+2QF3jIz05Gg8/Iqrvev2YN9a3D8eG1c FibMOe7ys3syaZ+cmS+of8+glGGwtNZ77lat3s/+jml17lrQO01fe06FDmX+7W+1efsr+vbPy5r7JN/t JZPOwHej+lUG29xplw6Tv4x+bHvYk/dx0xxIg4m9jMTnHu7cuU47YGYkwSZ5QmnDB/I32bsa5344ZT2Q uQa+GgFi5csrX/t//yys59X/+2dh/t4n04Aq2Ayqq7 5W48kD/tVZC+9r3JnmNBo/yzkS3wq+96w+w92kc2PR/D82v6HNi4S10grn8Wt1smu3g1qSR3xCZshGMv CvjqG/hv0L/wwH+EsZi4Wck77Hy7ijpvjpePDF29aJC59uRoOZFY+Xz7F4eb+V7e++f0/qq4uRwm6tmi Mn8vv+Pcm/yr2Q/hlyL6R/htyzG/t3b+Rj/ya+es/I //A67hZl8QJbi30x5W5qjzmtOV66OTfWG/hnON7+R81wksLu0MolE/rtB/LBU/TTpLs6uzKA5sOiP1fW T8kHM7/lgyflgznXF1+lvsG5+Crtzc/FV57ze/FV/guci6/y3+KbnOGIx8m//sn4majj7MJEJgx54WFN /+pi1a285W7/p/n46fMsBFp/iMJM3yDVJsu36SqfNa 8PntP/g+r2a6CQdK326oGpR0h/0fycE/2/g0U9HH6wfzAtEyyP6xujC95V1XC9y/1Ey/dPONrp//0DfH KS3iW1Gwy3/1jj1hoF9tdhjB9F/QtWyyilxO85/psnIivx63FL7haFAPO6+Ukxz0bTpK6F8IaG+CogH4 zCV/nc51WM/l+Ii6/jfNlx0loz1SGCAigofA///ZCJ /LZnD+n//QC+PhIypF3tZ+WhvR1CJL0qOaP+c0IO6h/lQf45mKzpgonfEQ80JzW6D7Krju3b/D0GgWU8 bp/Pof2/ENr/r2Y9ri9A6uUIt/w8ECk2QVrl+suSmgE5WSvNf7p+SdQk6kjJ61a81n39NXmZnnPjF9rK Ry50JxaS1d7K+Kqe+/7L2YqJlPF6qY3411uw/Y189H h4w4EWbu1rls+eluz6S5s9cvDYv9lZ+DwUs9VWl3e+lWZ9/h09GK5UrOa5B8LdyG0T/Ur+DhG95NXU1L lop+6ARopqoGYzWAg3m/WLgj5Cs4W/pno87hX4/6HlgQUeZQ48jskptgd3GC2868fn/fH1pbN24YpL72 vr2iRzq828KqjM3RvGo5j36r+L9H+U922Ey4h3/0Ls /l+Y5op8gsNkBOxj7/8lqKDHnRY60aX0oVM+GsTo8DnTdv2Cdf9+Clarke+h3A4TZrrnnq8+38wHPsX/KuA r2CxiCzz8lnmCI+9/W+F13mTrSKyq+C47gbDkab/J7z5G+Eb+ypR1V5nPR1S3I/CA/M9tFkQhkrZ/q8C 8cN2xHrK9yD4xD/PRH7Lj+K0/zXHZubSGpV9BFyjU/ cv+BheCWsjukFr1YgoMJux/3SFhv4N8X5NqdafqmTM+YXSLjsWYaG5KCGfJnE/cf0WVvkbL2wr/ZwAvo kutdZQyk4CdS9R4GvH+NtmJy0wjylOux6TYUxI5Bf9T2Fp5pwcRCh5E9Lw9KsODnsBIizil1XhnxHe4A hRwt8JpxOYGxytWo26n2NXc9Eul7Mc4E6HcyANuGTS 3gY4W3+JNv3+MkhHnTyEkgd2WiHjZ0T4Aix8q3AgPPvel7DmkiljUSUzYZcFh54J5uwwxRcu/SXg/G0o 4nFmLsyMrZDFI8rlDCmWGx7Y0H7lbxQ/QSwEvFHqC1YaO4r3LFFpDPPDtTRxSvVeNZnTqQS9MptDNOVt 41psF4T/st6Fd55R/U9iP8B4JtzS9oUSt048KbiDHP sXY6HftBK7WZ7G7n7O9NgO4FjkCKjnN3wm4gLb+nHhrrsGxuyyFrqtN8pgofAvl/DGO+Op74xC7FvK49 WCNdGIJ16YaQH/TMpopsQYwhb9Utpw53YR/TIvmQfegGI6RGykhhcCrY2G13C6MwSdZF9VfV63ECklZx sf6iaGJLqx87LwNxlaYui2a9X6MzByCof2Nru8V+Ei 7ellCFklod5YerGNoctL1hr89jysaC7ULmgZkNbiU+KbbyszC2IcTAsaZEepl2ylgzf0XwoQ1xF1UIgG /Z4O3/jBu0L1XoxSzQ/uNataw8Mpg/71uj8f8S6QrYidp8ee6cCLr+QcMOZp7TS3PajmlkBNMM0Qx1jc eP5gZ2jT9m9B06TuEX5C2O0nJ0QCp8qQldE+CVAQyp K5BF8VgXiQJ7Gl0GOfW4E//WGboBBMcTcSsSx7XFV/GXBO1XiYHIj8Kbi2Tn/wqEHsZathXdtO6PvL8n 9UyopRFkuC6J3ZISr+tm1hB567M3tfPGl3uphercSvThdICniFft9hlaGJxiJwiUt3e8gBnIkCvfWDuI 8EGvwiEIGKECeWk/ibGWhzLhZ1HInVFIdmKxSVSwaW HAph3Nm7a3b50Efik9Yf70V4KnHX3oR+lPWsrKERhpfLJ2GesUmNs/WiXAdq/H0xwfOq/77jLHFSfVgC gLgxHJKKJ6UqPCGLbJqKGgyljRQs/2IQMFDB/FntKpl1V+p0m3XQrwc3PJe1t2+tGb+zWcIxmFwHxIky xKxi8RaQ8+FlATj1YbEoKa5N3rAU7IpNlrF3WqO/4j UsfofnAXFi+bh/15BorYfxXJFfxeTHzQL8mh8bR+ttIZRB+rovn/mm3V0engCOdQ/68ndfDRjXATxaSL e9erZCUIy55NY1xy5HBnRwn1U+6307R6Tbj8ZaQQvR1Q6IIPvc2/gszUTCcP7qoznekKUHL6kLC/hfIo 3kdyXYGnBi+sH/YiQHEUjxBWW2NM9kU/ivNfwvlDv8 V+KNxdIh/vfRw/4PVyehskT0j6J2Fbj6LfCivOUQndK+w3bwQY7tj5Y7aSfO0Q/x+zeuHk8BjSyqVv+V yM08b2MpzWPh+A8/+eUo/6zl4Hgq1lbaL/7yfuvz5R2/leCfSWBPIOUw/3FAndsYFWyWXS8hLQ0mlt6f dmdFQm3fp+OrC8kBrGl2D1I6G7Ewm/FmUXBxotcYXJ ziQaXOM8zmoToF/bqGH63Q8TwLrfN2jZ72jSM6CMss1sbsXefrZ/28OLWaJDZnv0Pi/ZMGauSlj5zjQv 9ryDMtligpSa86PSk20CC/POq/cOXG76xEf12cmvp12A/n/VpKo2n1bhfDL5YH2k/+c3qibIhcZelgbK sBKd/3W3KBnmFTKscGG3J+7AKYNDjor4YrbDy1S7R4 nDFlKmLkES4awlxk6zC7SO2mo6D5uud+7n8qRF9dJ5eDuOz/qdaHGqw5hYfX4haw8aTwJvN0+ZJO91/Q HSsfyc0DiCu8csu3/2HluZEhwO0eWydZIwTLiR+oME8Q/Ud8I+LE54G/SjgGxInlhP+8BEvaDFTKD/+r yzP1thA/JYJUI/ZPOuMvSKCMdlTu+TdD5E2erB8aRY FuLJ/6n2WDEJV74w6fQKW47v+DlGP+00CP9owH6X6VG/gJlqxjLR2wythvF+8WwMd4r8bHNckb9WN6yz Kbr9UbrgxhVHl6q3BiZqJKV/1ftcXvACOlr/46r9NZ/8gO2foV1fh/Zao9MRsquWhZt3HuteA3ANXQp2 xkca73M0bD8c1/h3wI61CK7fZc3VGyWxKL2oCYI+Nm lNqWxZ6fpMpwaeQWx7FSIjS0+Q6V6WKwQonqfaSjoD0TTYGGnrFIOuzkavPynew/H132A7tSZVfFP/8X 2Qz/EGHIcu3d4EhpyuNsTr69Thq//x5KFs9COwDR4/9cExjowukTlKzLxabS4GCTj2Ev28jy/r8G8M+k oBid6J55sIdob6OD/imVhuPPds6eXB4yRAAR/0fBYX 8ORbStBDkg7RBwQHjAwWEN9Jgv9EIx0zGGoYNrFkNRNmXcWK0lP1wsRok+p1iHeikfba0/35z5ILvk/M PRKOMFSbB2A8JPWTGNtUQH7RIzYKhIqmXi4DNKVcdiDT7XlX0LZIeGzxAKrrWbCeoQ1nS4pAsG5RQwdT 64M4IBkoZZohJdHoZ4cO0oDVuwSALm2clPY0dgEpzE sJxTdA6eVjDnroZFoixJGlamorIR/pgGTtNWPOIIhIAwD4AmTMPCCSZWabMS41gqC1xRL0f8rIZTShMA 8H6DZTk89SHcGVaXMM4rOZbnMN2HMmXUOuuHeAb6c8RNJb6dd+/gPKjYAY+EWntWeK2BHyqxmPks5es5 rLBB2vJVwDAvaQQmFAOgj5xWTmAnMPPlxtNW3H+dLF bUAaK8CSNb95d+BAcF9wdzrRIhDlZAXwUMR1UBkaYJ8qbQwA0TcrJguPD1QAtZfhIUB3YcsTuVyYWWJe fCXFiJMG+Vii/xvSXNIU1Y0kTyBvCQm2NQZ3Z6TiaeTDYZcqMPJwlWPDogY16rEGQpY+aaoHpNvgMeSk SpwUUkG3rdUWOMJWYuJTmiJpDSvTFAGGnHO/gOYu9V 7AV5uU0YW2suNNI+v0BGiluWaSXYVBlSkzbOBTvDoNzn6In9siTSqYLtkIzupfQPgYWxaMBjknE53X9T WmKtZGLoYtW888qadOkhORBafRIbwrjJ+aJe26whrCspJAgm+hEQpYOtoVwYLXFP8lFZAyePU9aaCPZL qNBKfZWjmZ3195RqRHS00VKF2QxvT76/Q0UdiGcVGC 9HxqZtfbUw4rfJ9A3CzCSz7gmxwXSNTZQ90PE2LovaTpY9jV4UjIbRuxfUcwWmXfaPyzblU1nvE77uJX z1CZxrSXs1Ccv/HWA6FMMfcg2MLSpN0bA6ttYmeUEui27TPxV55g8CwpQpE/QKAi2YITmcQXC5fWei8Y vheHJ7F2RdOGnRjd0VbwFViM4wLo9RpBUV7DUNbIEW uAzTJ5C2gIBLjGZ5bUFtACIELhSdJlsQNe1PPDegljXHZuYQ3DRD0rXafmLX2eIC56sh1P6RClzP4z/F D8eVEY6dNNBmSk85TZnSID4UyIzvphdxGZaXDeFuHvykAoVT9GJbhWwM34uhhSAOb/BCV1/+Tf1SOfQV rSHsQHDjnQ0XQjCV8ZgY7do3naNmuJr6yrNQmkrUsA d4WXFGYI+0koEQvKi+JWIGYh4YoTVhPkGj1tesdo6P+YmMhyALDk+tLoUI5ugkML+1RrcZFGHu+uj1ml AjenHifFT/yfZc6b5H3Gs1pcO/m3Au3Qmg10a7lbeJlCoaRqRKZ5FaJ5a2XICIptJCggKFF04bNlCABt kWRIns4CeO9a8lK1qmV66jKs/jdnx2ulZU9Fq+606W U6Jp9ekfPfn5XQ1HnRKnZLpQESmh/Po9p+wg3kQYZbprPJJ8GTIH07RfJtQP7agDpKmp2MohsLEvl2ye v+IPSxi9WlYVFA1JzDd0CJcif/PITzhE6jXBCPYmHxs5U6NTqhbI5ItV+2KTKkd3TpkId3VGk1XW2AvI vIrF1uibU0uPO+nfaC4dxJN0exRUxnsImCMHejdVM3 9jNhBG0vmoDw5NGJZtUIK4LtKSdUK5eUSZrzeb7mdlWNRvDBz4UkAZlzRloh3YrpMBDuFPpWDoKqy8Hh B19EuXqS8ZfHIkdZbc6uOdfVAtyA1F43CErLLRcS6fkkSBdreQuZgTEC9Rmd6PqYNtpDFuO2qmWFjZlw xoVtV4K7nt1dZqu49nGSzQcAU2lCWFNdH07uykPE6r od+4RE4n1xUXGjmRQ5t7zseK/LdQavqSS5ZpS1VS4C22WzJgbceDmbR4M0O+QPiXEbyConR0OZ6SiCE8 SALMXRe9QmFbE9srX02CEptANcjExDEOAIrSQIt8mNlAqI9MXbpdoe8UZL2XUxDvT3AgGtLEIzY63gDC quyQ7tJ6rIW1k+FoQWMLqANHjEaZTmkDT+jC6JpWA5 yuJJ5BRY8MlArCl1TVsm+jQA8NfIJVSRxPGgtBOOSpDsAGX8XsSsTQTZbloytCunHfAUsZIULwnBo63o dxL3PznaMoiBgQcR2JaxrTAt1xTd3AcSB2Z05yXbGUP3l2aDmWt1pkiYMzYggOha+t7d2oeQSyfqjBsI GIs7VrJYd0shmC8a7wSPok2RcLuq+27z9dyY7BKCyQ MGMZ+R1aOJwfW+dQ1889epEm8dnD5Qa3yZN2uLIWiJFbHe8qdgcJDc4rpBjpuPSYbhEaTk/yHkvlfqJz Wh8VWtQFtazfmgKax1sAImh4dZ811Ale6xIt2bZ4GDnKAX64igVhtJ7ILd+OVmP/vKH3bmPoxccC2+xt k9/ZlLiUcUdipd/W5O5Qjb7fAEWuhkyf/IPcuc5/0D QrI1I0VCq6xka1xhp5Pyfs7a0Klewz60d30uWNFZ0aupvMMkARyFbKPSuvPF+5whFDIoWKp7FaViZvZg 6F0BbDyNHZAoBaWSe96OgCLIpPYX2U1eeO1coKxhTh3WUZWo34Hh+8Zb6SoifLNynKLv1iM/ptEi2iHG eIHJw/CK2UW8xblLBuZYMaCIWfOYC7YE4W3KLHRRPu LtTSeUTLvl4YGojEiWHsPDvQGDALD3KfB/hvw1XFkI+v8z7FbVjHFy12t7WOKtaQ/DfxB6xurnyfRkA2 VEE+TbVnloG/eQU7SNwsm2OTt8DuO4MR01v4l3k42iUnU0z3PzzFC2NnA03OsDzRlpfNuYKkcwYpo2ky I0xVamGzdwWHv7D20v6yWFiDdIF7SISRdMPvFmMlLn gIUBAEU3D+UQKogzFYD/lChmqH3cP/dO6zU6El70cSvi79AaWQn11xmyGg8KBQiUl3q6kxXP1hs5yY5b korcMWm/f2HuvmmzZ2O+JzzzRbH7KeIUeKjYyaFcy4OL7REusmV71GxZQBjHhFnCwtosYEEVc70jrtPx oQ2LJChi252nzd8tuxmmjxOAbP8jOs1oIcHRHQ45/0 NdnsYJUoXcsHbEW2xPWVRisD1zlh9eniYZXPQTeoDtXQvwF7oqNIL+FqtO1cQTKdVU33uZjhwvvkOrCf SYPgMFAOkEJVQ4DlLOBD9Is+uYtVWPdg6W7pR+rA/b3RpvMWRvGKPnj2j1ZRNTo7LNFON1H1KjdaKsrL /THii63bUu2/TMNcEwqOYDhmYHqM9SdzeRcRLuNHGI oORJsGGjowwjN3b4udoRgjT7S8RoxdsBjNTavXvhxRRV7rZcIDmDFGzVkLu3FROgDZ/EZXig6xhPTlSp 3qdxzz1ZUHW907NFvSsMimBctysiaV+10Z57eUxCyY061PtBfKJVmALFWLpxbV1PbiNEmD159NS1OLjY T40O3C3XuBRB3zv3NClOIRa9xzdhrvweVw2CjiWNmV B6leufwGMKyjT+uUAeSzJUGiYYJw2FDwWqGeG3PKwUYT9EyNb0eG38ci0cn89jWL5dBwiH3lHA+U6Myh DgC+AE8dD8F+iMfGfmLjfqLoFyrD/hXPlkkfqm17mdLCf9yiDSWTW6UQiHDUzMT3kFV/USSMKNPZAtiJ yGMh751mgHup5c8kVWOqzu3ECdFJzUcNJcnDFBlMKB a3DiuiPAftKyZYx9CdGGmqANkhQkdAxvCi2OrrMDlGvnABbxbzHbZfkxNFATGes+AuOElZSxZfWP8uMt fRBc1cbtUXWblGzvwncp3F0tQVyDNvWAvmAgai8BFRM8loHRjJvCwHeTYC0K51iC+T0Bn+cGJnVCWgA9 CmpjEWQPmd3M0tutUWZbaJJgYs3xcceF6guqdp/879 rH37CZU9hiLAEpI3ohVGsoM1gXC/sXM/DXruIyNVLzLu4qJD6KRDCsPL+DBRBs2V5QbU2jh1Vyi36HUh cBCQAHuRc8SGfIwReFNMLqtz09bBxEJxyjzFTTKlhTEItufLK4FQ+s0TN7tV1LnXSQ0ckiV+YFgXOu+x iUrJfziXLWJbTf2C6A1rHlNbYGesbxn65EUr7rPWgj TO+61uq1eT+nvQG9ZOdTeSYtaWlD6DM2f59UlSIPjI9VgGJq8EPcsFticNmN2yokKcd+6AnSWncRzSqI OADR79eCbvKupMgXAVRbq5yTl3kxOnzBJBxvs1Hm22I3tfRauYBmn3Pn4KGeB/pF7XH21ovveUiCQDUS ZVz83vJRv2Bw5MwVvHKYCVtUv1hWSAEcRAF/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 [file] Kh/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/zy+nshyG4Bxxv82C1K7od0nAgNMAtpmh46/u37Hz+Xv8f8+0y+izjy/nj39R/i9aSjq57TN1I2 [file] ayBTZXJpZXMpIAogICAgICAgICAgICAvUHJvZHVjZX QwTO2RY2RhCWOwYDFGHYT3a9XbOWBgtqjrugasVe5euhOmVjc+CxrzQHXfc5LpIPjlQ0O2cZXiS8TxE5 DuHW0DxSSvBFxhAQSpTUSpTtFxRMHZVB1eP8KeyQ88IYI+YqSyYZ3untq9koZjPpAqIGGlGXSxWQIjNC dgAPTuCGQwIAWeVXX5CWB8KMQhYyXzBVVpGMv3Irou TYIvYOLnblGWHIWfJSIdBFYbPJGxXAScYUZnPIluOOQzUEY6ZgUtQGPnKUIsAV8yXvXjMOGbLIRkYBRm VqT4KgEeOmBNARUtOBJbTVHuVnIzWKPsFKZvCHwdLNPmIDFvBRj3KXUdPZAuEB0aSlFlMKHjLJHhUVAr DPVuXLSnrmQCUTKyXBXjOUQ7RQHqSJLdCYRqNMlgJJ McYAMnXJH5KEPwPAAhCY8kFdHqIFCcHXY2CmWrVMCyRQYhmzAKEAXlNAKvDCL9TWDpQIEcORLwSVbvLZ CkSWXlSrF3YYAkBNNiYC2mBmZpWSPcRQM5GKMoUPOuYDOihiWZAEStFDNoHBb1ZmUpVOVeCIJdKJzjLW NtJUDgSRxnRRAyUOCcBG9uJyAlKTPaHLEvSCKiVQCj RZQmwjXFBKGtLKBjQTT6XrEwQTFfWVCfHTqySGYzEMTwDYZ3PUQtCRRzJK9xOpOgMCKyNQH9MbZjBFYc IEMaokXOVWWlWBZpRYOkVFGjREMjRYRtDNguSDMtHCRdJsO3JFVxDMXpPM7xHgPoPYUmQEB3XWMcNIEd ISQethGUKUAxEQCeGUG6MFYeKIUlFEPbNAkvQBFxMA G7VEc3LGIjHPOlGW3bCoGbUCUuDKV4LDmxCRPpLIRbdpJFKZMkPOLhFxMmEJZcEBCdSHFhBMmnRMFeCO RiJPDkPWW5CFD5ABHwAuFiRGorEGGIIFqHB0EgqqQkZofIL5gnJd0jNvSdRVWOA0Rdj7SvRPIbELPOGb 4+OdO4GCV2xQIdGyhrDCi0JJKYLZRAZ9O= ID Date Data Source [id number] 12/14/2020 07:39:20 AM EDT [facility] Name Value Range Interpretation Code Description Data Morena rce(s) Supporting Document(s) EKG [facility] KYNIYj6fCiFEFzSwc2EiHrQqEVKrYO4anvd9Z8K7eSAwO3KyiMNor9axW4BdA9IgLJMnUGNMQW4VgRYb jb2 [file] Yt2xJz3AKo5xOZ6zASpwwvw/BQ9IClKy1D2g0CC/JHpjuN8fq8iIJ7AOs8RnEVU9U+YcU7IQmibv+Riana 35pm4Z9lwdrxDowNlEzQcPz9Mq3jr0VGzOeZbgDgeAm5fgSy6DP1srcVyCsvMd4OtA98fJ+xnm6KMPy5 MqEHSFcgwjHZbpInvS264t8rN4Msm5Pf8xq8f8Wy+4 hMK4EWN6XWaP9kcnxL9N2m5rWk6TZ6kYXeehWKjrBuoM3wtkjP5V4ARNHgqdG0ardQgkzzCTsWshA29P YoybNV4qwCcGgZEH9C1ggoUci2rQtuRwZq6MSuQkcphOWMyulF5WJuEJgRQ8U3NMQxikSUb79Ywm1WsN lg3hCJk3rEpEzjtkxFBdUZaS1d8woETokoLzqFrTZu rbznkGq2RBp2rnLvxJs0tJOLn+9YtEYXuy1sh+tEW2cFT4wkOlnvtZVa+KXyU9eWO9n+LyhthwissbYt M5Lm+BMiP4nFESDvTzAXPPBj5ssTJCeHdK5opbkWjsMfo/GYdEelCGFgRlT+dbYW5KSQC1vTn75rYGO8 q2yxhqQVbGH027cDyMkkFrvKfw8D+kimT9CGlIsWoQ D4eEhyIq+2DcT7pwZulE70am0uSVJ9lBK4/jBfS0zcEa3FZHIRMnNZ5Mbc1xM6UB4jTudjuXjNFagVz5 QNZ4tN6q8SDebj7eukM+ibC8mcDe2vNHbwbVN8SHSz8euzs4ycljarjo3ghbXbi28gRKoioh2rhEYI/R 3U8rzY9fsNmg5rE3vwH4gJeCbOxfKIxYLb6h2jAauW mRD655cRx6QiBzlPnTW7OQo6JcdIJANSgWzdnaTR/r1cI6yFREU2vmbsn6AAPZZ1vSlRcfpDZcXjTvQf 0X1X7c7svn4e1Dc9zDywSZzKrgDh1BgT8F/C+1k4eGm14ldY44E+eR8cDEIDpXliolSpyFTeFwZR3wFR 0+cY4clSkerzqknpAw2XvkicxyabfxoTbbNI1l3kNR n0p6BOiZ3A9eugWWNlt6+/T0Koz6S9f1QmvIlyyfY1s86P9efkyqRBbsIGioIU60pMwiAt3xnZbrcRxl laoAg25SKD7sNQ4Pk+YlZ1Lf0WM2l8iN1jfghyuM9Z9H93qSokgt5owfxTxwtb8iwEKDxHaA484e01tf 6dBAxjdWPiS7DA+KgnhrboABFc0ttEzOdtA+uLzhnf cj0a3ZTNN/Np1qRbVo2jNzoiws5qY18BbHcFmktxEwPCRvUGlS6d4MtadA9J6kAtEskyedqjpJbCXylA J4N+j6MxoshvZpm+BaQ1uhpJE1gjof8TOBftexD6Y0FxtSsj7VJfkR3ax9sJOLwf/UvXVpVpD7MtiygK Dl3Ex1Vlz+JxNhTlmRWo0iIxjpGHxKFvgPMIiKA3/f 23Qiq1S73tUm0O0uocxugm9R+yyRO2cFz5LikCpm5AlV/Manuel/vBh0kmdJvmA0Y4YcI1rDiy6Nqqzvn8k gnsoSzxLffHUl+MiK6gqLs+FxE6bNp0J/El28MBvyua+T5fF7+rpkn5hqDx0KQHo7SS9yYu3VyNkm2xj hK2TQGzakk+OqBlgVrYNKd5N2B8g2oUbEaIayDaRn5 WeHeOhZ7Ef3zkcLtZu1pM4L00fpplIapfcAkCiNwBaeMf3pn0MIX3PIbcOtBNIK5JeIC2UzE7b4cC0pz 0P+5Mw6lSflGnt7wRwpyx4nSB+TpptGkLzikYpe5bjaEeyxyU5Mlpf4FqTUqfQ4YZ6tGf7L7eycDjBlG 6kK4T3E9VHk/bLvUnbXRc2njH2GbO0hRbXEquOTNaq QcmbecR38i8+3iiSsisf9rdAB6ioLhgoII5d9S+gBl78kQUetvVnw9L2cfpzV3yzxsPFC43448xy1Zsm cAANkyGw0E44fbPRkc7+TcSH4Q9VkWFhAq45RztvH9i6kE4z3CbvUIM3EwQpb1nVc8TUH4UX9pVdqPhy 9U5CwbCi7ep+qDsPGpTak7/3ebkREVD5hf23FQpM4e QojlIqmyA7oPEadoJIDkUspkmJAfLsUmWAx31lnj4E0vnuED7SO82mNEvbFIqMmH1oI966mPaN6kXSJe G/HCs1HB7cC7C7S8CJY8zAb3O097wK8c7Zg2ksqEMLuLrQvoaR7jL37OmyveDBZENsbXY4OW/UkeaXc4 S2AQc6dsYnzx8E2wvutN48bUSov5pyd6JOU1L5i9fV 6/DQLJz7lblC5HZrAEd+VHmnQQ0njODl28/vWAoOLKa1UNgSbN5pfQ118lhCP5nszerogm/TkhwO+Mbl DtcwbAfCOFexcNjx0fJ0aKs+OzX3ho44gqDXu9LSI918c6Dup7LyJ06t4htCBTm7Wj0ATL8TjE8dnGva xGtQI/YHT1dn7mzsw4d/IlbE7firPH8iO9t/5/KGPc P+ZSa75Qm621g37gq61TOEr3qhbem+J6WduZ08Emi/gUWfZ8NmH6VyMRs4nYo/N9nQHbddYOL31Zkw+p bR5Q2f+TcBqZk8Ytihuzh7Mjw91JPPv9TwP887oF4UyDOo4EFw9hU2x/e9qimv2pGU9O+6vOFErFthHF KVD4sOig1eBYHFFiULA9r1oJ1iYcRzjIcy5pQmDmk0 7tQ7gMpNsyhz5iajU4JLPxY4Oc1bRVMeXek1YElUCLtO3z1a4W3zYJOZJqh0uLS5I1fkupwYsBZojG34 CrtMHdPyGLXWPTeyYExnvABZtfozbAzQvKjHt8EL8GkAo8ALPweOH7cz7M2HDoz8pPQidQLVykS4k8P/ c7BhslwpNodO6py2+3Qca8mmnFv96lvP9g2gkfKYqa YpGzuQ535Kul4Tp7+slxrGBxuMJfXrs0aktsf/1D3rruo3UV/+0rmvpssbLi/5i/Mb839v4jbKC5zL+7 S7nCJgsdYW2Z+SDzTqAm8XOpHzLjQ++5NZCka5uMMloB4m+N/E6G1zfQftwyjcgRoXoUSJ32g2NfB2v/ b9XX8o/lolv6Tt3kPg3c1vz/MdjNEk5090FD9h/as7 M4cEur8/XqgxdmKbo3SO5CYd+u710qOq1A+1uEbho/9z3jnSC1PKtsGDJ6Ruhaxk5B6p61+feP78/llR 9/CS00uXvQ2jPD7ToN1+6xlWq00GsUX/9A9Pz0bjc/o2/cV642c/f//qe/v74qfqV0s43PhCoxog7m9q R88C4IIWd+hGiu/bPu/i+64/Ihem3dm5+573md6/up Zh+b69Y9/KcOz8/aLZR4r/1q2IaKF5z35jEA6Ur45/Ued+nqMiD3B4c+b3vX+/YT6/x/0Lu/m9T1Cxho cqhk/9ur0B+n6/JX5Smniyq+hobs3Ec+uCr059Wg1x27OWd9+n9Pp+vnc91njC4gPjdv03jg1j6uzsoh nn7yj/EYgSayc4e7dcjU+jUV0HGuEgkW1cHzRx6kxy cudzPr82FLX2UNx2Kwp0U16RWKxy4oYMIIdBa63kdEnwfg2bXrJ3XYviQ7LLdWa9Iqj4g/3CJTZHvjhk DpcmimGY74Mk87xYITkBWkMPtWJEbDm0MmUJRzB8OMcSwtO5FlJIHFTGAUMWnSJk6tvpDBHdGRE06lkM teJwqoBvnYfvj4HGCkl74bfAQ+T4+4PjVLC/N17Otk GYOK2aC6fIvPldO9rDs5ulxXxuky5RItu4btNjyLuCgTFGYjvmzGKot6mliNCHwcSYEndoQJzhra8bes 1NUjTq9vwy1kohypw1pa39cO3JDhTPnSuwleRF9h/p6ysQoZzzQIO6EAFSz18MGpJMuZy/3+mFZZDmr9 6WKEsLEtcoNNgy0XimDfctUf/h+oWzo/Ugpe17W6s/ 4fqFixwO+f3GWB3C9dQftTAMpxFz+oU/Y5TpI0VBDZdEI44CoelmekNu8i6g8Wo44hTKjEy20TRHQeGW iGS68ScgdfAagyQjsAXVMMgGQobaGQSkPRbe+oW/i0UOhUvO7/iGdES4joGRKx9kDFWT6lnAaVJ7WEUj oW9AgDXjW0E/xlvNMQxk0GrPFyE0MEbven9Kee38ym EDfl6/4MgJiYm3CyqXUCk7U1d4fkHNoq2r9VO68MFP1cw00XeR2rf9/3n63/zg/X2+GYjZbu8mmnDVrO t/zoyRc57u/qb/t+/6/mYE9/+/L2Gcr/V2qrRyNYuOTzn+/5sE5dbtpq3vbpn7zGsLO8cq/n3+f/g+yq 7+v+j/m/5/shaxa0G7261Y/3knl2l6pB5+Psru/k3/ b9/1Pcqu/t8pfaf/D/r/oP9P+h861EcQ+dPzzkX/X4UWtq4Ao2//63fFeyE49jxo2DG/z+c96Y+yA29H 2aGso+fkQO4pKuUf4cJwea+yu3/brdtRdvX/Qqbk6h5xK1++fpSdG/7+/T97+pB9fz1vPXhUirOgq/q/ 0//I88fgexQ5id2+/fI/zq31bHHP/8/zDvx9/p9pzv MO/G3v70n/n5T+PC/yPM+LPBelp+ddm9Jv+r/T/93nYyog3f/39/6/z/TauOnF96rxd//yJAV3eo/0// T8SUBr42bf/p0SCeDSt+fNz+M2+n221eal4vee7PU78NJh6+39HfT/mUJb96u33/n/TpC7qH7H+7kM4a fc2U25Js+PN5/0/4zuLpWdnX04AoMlTmjM6T0Q3mjd el4P+i44xnI13Rd15dpDXe/Lmw/+/j6+Z6SStr1YpKNnz75/4dR7KsI+Glp1yCiqpGC+7CytTD8P/9+U j3/P1+n/8fiJMxPFif/lt52mejyhKpuhkyMdlwfSqaC/x63/wsKH5E7BKr7bw/I3Sm/2/l6U/wka6kDu Ppvy94/+pvoE5R+r2TW94Ef4t47NnZaXtXHfenT7Lc /o/4P+P1+0cv6dckiz59zHY5k/qNxN+e/HQ3PKx+n/QfWP9//+vfz79+uG15tXkdC/6h15gi3+6P/j1b PATHOLOGY TECH+v/rv+fagvc3/Z/rw9iwBfbc9uAn/0750/MefXX/bjHh60iF1/Xfc1XB+/vVZ/XK8glAd0QvvaH5Ho K2IBsJ41r45/jl5M2ZIcAFexh5uvrjCuPjB2A/49Vz Uv+d30s/8vk07esv8W0gyi/1rxjYv4oX9Nyn/d57tm7pnn4x/kqyd8twWmPKoqbw7npWo7P+0vPeTu9Q 2buqz8fM/p15gif2ExsIm9K5C5+Deq3vCKFpnQplh4psSgsj1D+oPvt+hjU7Xi71+u8TfY2pvD2zCuJ+ vslsbtlx7VzyOu+pr/B3f/mnvkI+T20B1loN2m/zzv z/fPVJfVV/0//H064U2d41FmKJqafLoALii9O+1Oluhgm3ZVZ+CuirTN8/+vvVM/VVlrvp/aa+Qvqnrw L6Cn9T/lRdA00lN/mjutuGS5tvB0K5mnDQOlB1OV2WC1L7h/it5U960e31dp2i/9RX+P+g/8+P/n48pL 7C/43qsyifdXV++JsvhNPzutP/kqTWvj9lk4dy5c+p r/D/F115Cghv//fHW+yasRv2g6dHvr0Yh9C/c36Ev+29uZ37rlSK1b0yIV4eUKZrBG89j/IxQ8cCNCt8 Byh4HGjzlzUFrWvphOm5XTyG/CjZvE+NBETVriNrBbyWcWW1d8JBmXtopR/Hw4tkhMN30la+M5JPtxHL tjY0rkXcJGrnPAZRR4GsfE8IinoCDVUZyVOYFJ//ct hne7693a+F87tw8Z+g6PbeS9J6MVzCdu/eHWcKYyMF1IO+5vT7Pv0UcbfN/Skjwz/qeU3mFAh6++sRdf rfyDBGTsxrvMP+i8wRRZRyMg3Lh9vqaIBaXCLw/Z7VYZfdDIBu01KlbzTCBukPJYT9so0EpyTPjw9/driver [file] [facility]QJ[facility]ULFlVPy1RyBnJO1P ID Date Data Source [id number] 12/14/2020 01:38:40 PM EDT [facility] Name Value Range Interpretation Code Description Data Morena rce(s) Supporting Document(s) PT 16.5 s (9.2-11.9) H [facility] INR 1.61 [facility] SUGGESTED THERAPEUTIC RANGES USING INR F ORSTABILIZED ANTICOAGULATED PATIENTS:STANDARD DOSE THERAPY INR 2.0-3.0 DVT, PE, PREVENT DVT OR EMBOLISMHIGH DOSE THERAPY INR 2.5-3.5 PREVENT EMBOLISM FROM MECHANICAL HEART VALVE ID Date Data Source [id number] 12/14/2020 08:06:14 AM EDT [facility] Name Value Range Interpretation Code Description Data Morena rce(s) Supporting Document(s) TROPONIN I 6.84 ng/mL (<0.05) H [facility] Less than 0.05: Myocardial injury unlike lyGreater than or equal to 0.05: Highly suggestive of myocardial injuryCorrelation with rise and/or fall ofserial troponins, clinical symptomsand ECG changes is necessary.ALERTED CRITICAL RESULT [facility] (87310) ON 04.13 AT 93773 ON 12.14.20 [place] [id number] ID Date Data Source [id number] 12/14/2020 07:28:10 AM EDT [facility] Name Value Range Interpretation Code Description Data Morena rce(s) Supporting Document(s) SODIUM 136 mmol/L (136-145) [facility] POTASSIUM 4.1 mmol/L (3.6-5.2) [facility] CHLORIDE 98 mmol/L (100-108) L [facility] CO2 24 mmol/L (22-31) [facility] ANION GAP 14 mmol/L (7-16) [facility] UREA NITROGEN 44 mg/dL (7-24) H [facility] CREATININE 2.71 mg/dL (0.80-1.30) H [facility] BUN/CREAT RATIO 16.2 RATIO (10.0-20.0) [facility] GLUCOSE 107 mg/dL (70-99) H [facility] CALCIUM 8.8 mg/dL (8.4-10.2) [facility] TOTAL PROTEIN 6.6 g/dL (6.4-8.2) [facility] ALBUMIN 3.4 g/dL (3.5-4.6) L [facility] GLOBULIN 3.2 g/dL (2.7-4.3) [facility] ALB/GLOB RATIO 1.1 RATIO [facility] ALKALINE PHOSPHATASE 50 U/L (45-117) [facility] BILIRUBIN,TOTAL 0.7 mg/dL (0.0-1.0) [facility] PLEASE NOTE:Total bilirubin results may be falselyelevated in patients taking Eltrombopag. AST (SGOT) 3595 U/L (11-39) H [facility] ALT (SGPT) 5219 U/L (12-78) H [facility] GFR 24 ml/min/1.73m2 (>59) L [facility] GFR ( AMER) 29 ml/min/1.73m2 (>59) L [facility] GFR INTERPRETATION [facility] --NORMAL KIDNEY FUNCTION OR MILD DISEASE - GFR >OR= 60CHRONIC KIDNEY DISEASE - GFR 15 - 59RENAL FAILURE - GFR <15 Est. GFR calculation based on the MDRDstudy equation, which assumes a steadystate for creatinine. Est. GFR should notbe used for medication dosing. ID Date Data Source [id number] 12/14/2020 06:46:16 AM EDT [facility] Name Value Range Interpretation Code Description Data Morena rce(s) Supporting Document(s) WBC 15.0 10*3/uL (4.1-11.0) H [facility] RBC 4.86 10*6/uL (4.60-6.10) [facility] HGB 15.7 g/dL (13.5-18.0) [facility] HCT 45.8 % (41.0-53.0) [facility] MCV 94.2 fL (80.0-95.0) [facility] MCH 32.4 pg (27.0-32.0) [facility] MCHC 34.4 g/dL (32.0-36.0) [facility] RDW 14.5 % (10.5-14.5) [facility] PLT 100 10*3/uL (150-450) L [facility] MPV 9.1 fL (7.1-10.7) [facility] ID Date Data Source [id number] 12/14/2020 06:42:54 AM EDT [facility] Name Value Range Interpretation Code Description Data Morena rce(s) Supporting Document(s) APTT 48.7 s (22.0-34.3) H [facility] ID Date Data Source [id number] 12/14/2020 04:07:19 AM EDT [facility] [place] Name Value Range Interpretation Code Description Data Morena rce(s) Supporting Document(s) TROPONIN I 6.30 ng/mL (<0.05) H [facility] Less than 0.05: Myocardial injury unlike lyGreater than or equal to 0.05: Highly suggestive of myocardial injuryCorrelation with rise and/or fall ofserial troponins, clinical symptomsand ECG changes is necessary.ALERTED CRITICAL RESULT TOKATIE([id number]) D3(97105) [place] [address] ON 12/14/20 [place] [id number] ID Date Data Source [id number] 12/14/2020 04:04:04 AM EDT [facility] Name Value Range Interpretation Code Description Data Morena rce(s) Supporting Document(s) SODIUM 137 mmol/L (136-145) [facility] POTASSIUM 3.9 mmol/L (3.6-5.2) [facility] CHLORIDE 98 mmol/L (100-108) L [facility] CO2 25 mmol/L (22-31) [facility] ANION GAP 14 mmol/L (7-16) [facility] UREA NITROGEN 40 mg/dL (7-24) H [facility] CREATININE 2.84 mg/dL (0.80-1.30) H [facility] BUN/CREAT RATIO 14.1 RATIO (10.0-20.0) [facility] GLUCOSE 134 mg/dL (70-99) H [facility] CALCIUM 9.1 mg/dL (8.4-10.2) [facility] TOTAL PROTEIN 6.7 g/dL (6.4-8.2) [facility] ALBUMIN 3.2 g/dL (3.5-4.6) L [facility] GLOBULIN 3.5 g/dL (2.7-4.3) [facility] ALB/GLOB RATIO 0.9 RATIO [facility] ALKALINE PHOSPHATASE 48 U/L (45-117) [facility] BILIRUBIN,TOTAL 0.8 mg/dL (0.0-1.0) [facility] PLEASE NOTE:Total bilirubin results may be falselyelevated in patients taking Eltrombopag. AST (SGOT) 4478 U/L (11-39) H [facility] ALT (SGPT) 5475 U/L (12-78) H [facility] GFR 23 ml/min/1.73m2 (>59) L [facility] GFR ( AMER) 28 ml/min/1.73m2 (>59) L [facility] GFR INTERPRETATION [facility] --NORMAL KIDNEY FUNCTION OR MILD DISEASE - GFR >OR= 60CHRONIC KIDNEY DISEASE - GFR 15 - 59RENAL FAILURE - GFR <15 Est. GFR calculation based on the MDRDstudy equation, which assumes a steadystate for creatinine. Est. GFR should notbe used for medication dosing. ID Date Data Source [id number] 12/14/2020 03:47:27 AM EDT [facility] Name Value Range Interpretation Code Description Data Morena rce(s) Supporting Document(s) MAGNESIUM 1.9 mg/dL (1.7-2.4) [facility] ID Date Data Source [id number] 12/14/2020 12:56:44 AM EDT [facility] Name Value Range Interpretation Code Description Data Morena rce(s) Supporting Document(s) APTT 30.7 s (22.0-34.3) [facility] ID Date Data Source [id number] 12/13/2020 08:10:12 PM EDT [facility]FORMATIONPatient MRN Name Date of Age Gend*PT [id number] Dilan Kirk 1960 60 years M IPPT Location Admission Date/Time Visit ID Attending [id number] 12/13/20 1238 --- Crystal Neal MD([id number]) EPI ID CSN Admitting Provider [id number] Crystal Neal MD([id number])Inpatient Consult NoteWchemaronak KirkMRN: [id number] FOR GI CONSULT: Acute hepatitisHOSPITAL PROBLEM LIST:Principal Problem: Coronary artery disease involving [place] coronary artery of [place] heart withunstable angina pectorisActive Problems: Wide-complex tachycardia [...] to be monitored closely for signs of YOSHI. Also watch for signs ofbleeding. I expect [...] them due to numbness. [facility] ER wherehe was found to [...] mellitus History of herniated intervertebral disc Hypertension GA (myocardial infarction) Sinusitis Umbilical herniaPast Surgical History:No [...] rce(s) Supporting Document(s) ID Date Data Source [id number] 12/20/2020 01:40:51 PM EDT [facility] Name Value Range Interpretation Code Description Data Morena rce(s) Supporting Document(s) PROTEIN,URINE 98 mg/dL [facility] URINE PROTEIN MAY BE FALSELY ELEVATEDDUR ING TREATMENT WITH AMINOGLYCOSIDESDUE TO METHOD INTERFERENCE. ALBUMIN URINE 36.6 % [facility] ALPH1 1 URINE 63.4 % [facility] TOTAL OTHER FRACTIONS ALPHA 2 URINE [facility] BETA URINE [facility] GAMMA URINE [facility] INTERPRETATION: [facility] Interpretation [place] [address] Mixed glomerular and tubular proteinuria. MD Jay 12/16/20 ID Date Data Source [id number] 12/13/2020 11:27:33 PM EDT [facility] Name Value Range Interpretation Code Description Data Morena rce(s) Supporting Document(s) URINE WBC (0-5) [facility] URINE RBC (0-2) [facility] EPITHELIAL CELLS 2+ [HPF] [facility] AMORPHOUS 1+ [HPF] [facility] HYALINE CASTS [facility] COARSE GRAN CAST [facility] ID Date Data Source [id number] 12/13/2020 10:28:36 PM EDT [facility] Name Value Range Interpretation Code Description Data Morena rce(s) Supporting Document(s) PROTEIN,URINE 98 mg/dL [facility] URINE PROTEIN MAY BE FALSELY ELEVATEDDUR ING TREATMENT WITH AMINOGLYCOSIDESDUE TO METHOD INTERFERENCE. CREATININE,URINE 97.80 mg/dL [facility] URINE TP/CR RATIO 1.00 RATIO (0.00-0.20) H [facility] ID Date Data Source [id number] 12/13/2020 10:10:25 PM EDT [facility] Name Value Range Interpretation Code Description Data Morena rce(s) Supporting Document(s) COLOR [facility] APPEARANCE [facility] SPEC GRAV URINE 1.017 (1.003-1.030) [facility] PH URINE 5.5 (5.0-7.5) [facility] LEUK ESTERASE (NEG) [facility] NITRITE URINE (NEG) [facility] PROTEIN URINE 1+ (NEG) A [facility] GLUCOSE URINE 1+ (NEG) A [facility] KETONE URINE (NEG) [facility] UROBILINOGEN 0.2 mg/dL (0-1.0) [facility] BILIRUBIN URINE (NEG) [facility] BLOOD/HGB URINE 2+ (NEG) A [facility] ID Date Data Source [id number] 12/13/2020 09:42:50 PM EDT [facility] Name Value Range Interpretation Code Description Data Morena rce(s) Supporting Document(s) URN CULTURE HOLD [facility] FOR ADD ON CULTURE ID Date Data Source [id number] 12/20/2020 01:25:18 PM EDT [facility] Name Value Range Interpretation Code Description Data Morena rce(s) Supporting Document(s) TOTAL PROTEIN 6.7 g/dL (6.4-8.2) [facility] TOTAL PROTEIN EPP 6.7 g/dL (6.4-8.2) [facility] ALBUMIN CALC 4.5 g/dL (3.9-5.1) [facility] ALPHA 1 CALC 0.2 g/dL (0.1-0.3) [facility] ALPHA 2 CALC 0.7 g/dL (0.4-1.0) [facility] BETA CALC 0.7 g/dL (0.5-1.1) [facility] GAMMA CALC 0.6 g/dL (0.4-1.2) [facility] MONOCLONAL CALC (NOMONO) [facility] ALBUMIN PERCENT 66.4 % (58.8-69.6) [facility] ALPHA 1 PERCENT 3.0 % (1.6-3.0) [facility] ALPHA 2 PERCENT 10.4 % (7.2-13.2) [facility] BETA PERCENT 11.1 % (8.0-14.7) [facility] GAMMA PERCENT 9.1 % (7.3-16.4) [facility] INTERPRETATION: [facility] MD JAY 12/16/20Interpretation perf [place] [address] ID Date Data Source [id number] 12/17/2020 01:17:18 PM EDT [facility] Name Value Range Interpretation Code Description Data Morena rce(s) Supporting Document(s) MYELOPEROX AB 0 AU/mL [facility] Reference range: 0 to 19 INTERPRETIVE IN FORMATION: Myeloperoxidase Abs, IgG 19 AU/mL or Less ......... Negative 20-25 AU/mL .............. Equivocal 26 AU/mL or Greater ...... Positive Approximately 90% of patients with a P-ANCA pattern by IFA have antibodies specific for MPO. SERINE PROTEINASE 3 1 [facility] Reference range: 0 to 19Unit: AU/mL INTE RPRETIVE INFORMATION: Serine Proteinase 3, IgG 19 AU/mL or Less ........ Negative 20-25 AU/mL ............. Equivocal 26 AU/mL or Greater ..... Positive Approximately 85% of patients with a C-ANCA pattern by IFA have antibodies specific for PR3. ANCA IFA TITER [facility] <1:20Reference range: <1:20 ANCA IFA PATTERN [facility] None DetectedReference range: None Detec naresh INTERPRETIVE INFORMATION: ANCA IFA Pattern Neutrophil Cytoplasmic Antibodies (C-ANCA = granular cytoplasmic staining, P-ANCA = perinuclear staining) are found in the serum of over 90 percent of patients with certain necrotizing systemic vasculitides, and usually in less than 5 percent of patients with collagen vascular disease or arthritis. Performed By: [facility] [address] [place] [address] Field Service Technician Poultry: Li Hoffman MD ID Date Data Source [id number] 12/16/2020 04:04:44 PM EDT [facility] Name Value Range Interpretation Code Description Data Morena rce(s) Supporting Document(s) CH50 TURBIDIMETRIC 67.0 [facility] Reference range: 38.7 to 89.9Unit: U/mL REFERENCE INTERVAL: Complement Activity Total, (CH50) 38.6 U/mL or less ..........Low 38.7-89.9 U/mL .............Normal 90.0 U/mL or greater .......High Performed By: [facility] [address] [place] [address] Field Service Technician Poultry: Li Hoffman MD ID Date Data Source [id number] 12/16/2020 01:05:23 PM EDT [facility] Name Value Range Interpretation Code Description Data Morena rce(s) Supporting Document(s) KAPPA FREE LIGHT 56.60 H [facility] Reference range: 3.30 to 19.40Unit: mg/L INTERPRETIVE INFORMATION: [place] Qnt Free Light Chains Undetected antigen excess is a rare event but cannot be excluded. Free light chain results should always be interpreted in conjunction with other clinical and laboratory findings. LAMBDA FREE LIGHT 30.32 H [facility] Reference range: 5.71 to 26.30Unit: mg/L GEOVANNA/HAMLIN RATIO, SERUM 1.87 H [facility] Reference range: 0.26 to 1.65 Performed By: [facility] [address] [place] [id number] Field Service Technician Poultry: Li Hoffman MD ID Date Data Source [id number] 12/16/2020 08:14:49 AM EDT [facility] Name Value Range Interpretation Code [...] and assessment of renal prognosis. Performed By: [facility] [address] [place] [id number] Field Service Technician Poultry: Li Hoffman MD ID Date Data Source [id number] 12/14/2020 05:02:46 PM EDT [facility] Name Value Range Interpretation Code Description Data Morena rce(s) Supporting Document(s) BÁRBARA SCREEN @ (NEG) [facility] ID Date Data Source [id number] 12/13/2020 11:01:13 PM EDT [facility] Name Value Range Interpretation Code Description Data Morena rce(s) Supporting Document(s) TROPONIN I 6.39 ng/mL (<0.05) H [facility] Less than 0.05: Myocardial injury unlike lyGreater than or equal to 0.05: Highly suggestive of myocardial injuryCorrelation with rise and/or fall ofserial troponins, clinical symptomsand ECG changes is necessary.ALERTED CRITICAL RESULT TOKATIE([id number]) D3(44589) AT 2255 ON 12/13/20 [place] [id number] ID Date Data Source [id number] 12/13/2020 10:58:37 PM EDT [facility] Name Value Range Interpretation Code Description Data Morena rce(s) Supporting Document(s) CERULOPLASMIN @ 34.2 mg/dL (20-60) [facility] ID Date Data Source [id number] 12/13/2020 10:36:31 PM EDT [facility] Name Value Range Interpretation Code Description Data Morena rce(s) Supporting Document(s) ACETAMINOPHEN <2.5 ug/mL (10.0-30.0) L [facility] ID Date Data Source [id number] 12/13/2020 10:12:40 PM EDT [facility] Name Value Range Interpretation Code Description Data Morena rce(s) Supporting Document(s) HEPATITIS C AB @ (NEG) [facility] NOT INFECT ED WITH HCV, UNLESS RECENTINFECTION IS SUSPECTED OR OTHER EVIDENCEEXISTS TO INDICATE HCV INFECTION. ID Date Data Source [id number] 12/13/2020 09:22:23 PM EDT [facility] Name Value Range Interpretation Code Description Data Morena rce(s) Supporting Document(s) RHEUMATOID FACTOR @ <15 IU/mL (0-15) [facility] ID Date Data Source [id number] 12/13/2020 09:22:23 PM EDT [facility] Name Value Range Interpretation Code Description Data Morena rce(s) Supporting Document(s) COMPLEMENT C3 @ 56 mg/dL (90-180) L [facility] ID Date Data Source [id number] 12/13/2020 09:22:23 PM EDT [facility] Name Value Range Interpretation Code Description Data Morena rce(s) Supporting Document(s) COMPLEMENT C4 @ 20 mg/dL (10-40) [facility] ID Date Data Source [id number] 12/13/2020 06:40:38 PM EDT [address] [address]Shagcjw Name: Dilan KirkDOB: 1960ex: MOrdering Provider: PIERCE AMAYAAuthorineno Prov: PIERCE AMAYAReferryajaira Provider: Procedure Performed: US ABDOMINAL VEINS LIMITEDExam Date: 12/13/2020 16:02MRN: [id number] Number: [id number] Class: INFORMATION: Exam: US Duplex Artery or [...] rce(s) Supporting Document(s) ID Date Data Source [id number] 12/13/2020 06:33:52 PM EDT [address] [address]Oogdusc Name: Dilan KirkDOB: 1960ex: MOrdering Provider: AUSTYN Degroot Prov: AUSTYN Damon Provider: Procedure Performed: XR CHEST PORTABLEExam Date: 12/13/2020 18:12MRN: [id number] Number: [id number] Class: INFORMATION: Exam: XR Chest Exam date [...] rce(s) Supporting Document(s) ID Date Data Source [id number] 12/13/2020 05:04:51 PM [facility]T [facility]FORMATIONPatient MRN Name Date of Age Gend*PT [id number] Dilan Kirk 1960 60 years M IPPT Location Admission Date/Time Visit ID Attending [id number] 12/13/20 1238 --- Crystal Neal MD([id number]) EPI ID CSN Admitting Provider [id number] Crystal Neal MD([id number])Consult NoteAdmit Date: 12/13/2020Today's Date: December 131Reason for consult: AKIRequesting physician: Dr. Bowerssessment/Plan:1. JOHN: Patient has a creatinine of 4.9 [...] 4 yearspresented with [facility]headedness earlier [facility] to [facility]. He wasnoted to be in acute renal failure with severely abnormal liver function testand [facility]. Patient hadsome soda [...] coronary artery disease and had a cath [id number] which showed mild CAD and did not [...] mellitus History of herniated intervertebral disc Hypertension GA (myocardial infarction) Sinusitis Umbilical herniaFH: No family [...] Social Gatherings with Friends and Family: Attends Buddhism Services: Active Member of Clubs or Organizations: [...] reviewed today at 1:50 PM :Labs from Congregation reviewedImaging:CXR from Congregation reviewedCurrent Meds:Scheduled Meds: amLODIPine 10 mg Oral Daily [START ON 12/14/2020] aspirin 81 mg Oral Daily bisoprolol 5 mg Oral Daily [START ON 12/14/2020] clopidogrel 75 mg Oral Daily insulin glargine 6 Units Subcutaneous Nightly insulin lispro 1-4 Units Subcutaneous With meals sliding scale montelukast 10 mg Oral Nightly normal saline flush 3 mL Intravenous Q8H [facility] normal saline flush 3 mL Intravenous Per ProtocolContinuous Infusions: heparin (porcine) in NaClPRN Meds:.albuterol, atropine sulfate, heparin (porcine), nitroglycerin,perflutren lipid microsphere (DEFINITY) 8.476 mg in 10 mL NS IVAustyn Davis MD Name Value Range Interpretation Code Description Data Morena rce(s) Supporting Document(s) ID Date Data Source [id number] 12/13/2020 05:09:46 PM EDT [facility] Name Value Range Interpretation Code Description Data Morena rce(s) Supporting Document(s) POC TEMPERATURE [facility] 37.0C POC SOURCE [facility] PUNCTURE SITE [facility] O2 THERAPY [facility] CP BYPASS [facility] KIERAN TEST [facility] POC VENOUS PH 7.35 pH (7.33-7.43) [facility] POC VENOUS PCO2 45.9 MM HG (38.0-50.0) [facility] POC VENOUS PO2 28 MM HG (30-50) L [facility] POC VENOUS SO2 49 % (60-85) L [facility] POC VENOUS BASE DEFICIT 1 MMOL/L (0-2) [facility] POC VENOUS HCO3 25.5 MMOL/L (23.0-27.0) [facility] POC VENOUS TOTAL CO2 27 MMOL/L (24-28) [facility] PERFORMED BY [facility] POC HCT 47 % (41.0-53.0) [facility] POC SODIUM 134 MMOL/L (136-145) L [facility] POC POTASSIUM 5.4 MMOL/L (3.6-5.2) H [facility] POC IONIZED CALCIUM 4.9 MG/DL (4.6-5.3) [facility] POC GLU 106 MG/DL (70-99) H [facility] PER[facility] LAB [facility] ID Date Data Source [id number] 12/13/2020 05:06:44 PM EDT [facility] Name Value Range Interpretation Code Description Data Morena rce(s) Supporting Document(s) POC NOVA GLU 112 mg/dL (70-99) H [facility] [place] [facility] ID Date Data Source [id number] 12/13/2020 08:48:30 PM EDT [facility] Name Value Range Interpretation Code [...] APR 20, 2017). ID Date Data Source [id number] 12/13/2020 08:48:30 PM EDT [facility] Name Value Range Interpretation Code Description Data Morena rce(s) Supporting Document(s) HEPATITIS B S AG @ (NEG) [facility] HEP. B CORE IGM @ (NEG) [facility] HEPATITIS A AB IGM @ (NEG) [facility] HEPATITIS C AB @ (NEG) [facility] NOT INFECT ED WITH HCV, UNLESS RECENTINFECTION IS SUSPECTED OR OTHER EVIDENCEEXISTS TO INDICATE HCV INFECTION. ID Date Data Source [id number] 12/13/2020 08:48:30 PM EDT [facility] Name Value Range Interpretation Code Description Data Morena rce(s) Supporting Document(s) HEP B CORE AB TOTAL @ (NEG) [facility] ID Date Data Source [id number] 12/13/2020 07:57:54 PM EDT [facility] Name Value Range Interpretation Code Description Data Morena rce(s) Supporting Document(s) CHOLESTEROL @ 107 mg/dL (0-200) [facility] TRIGLYCERIDE @ 170 mg/dL (30-200) [facility] HDL CHOLESTEROL @ 30 mg/dL (>40) L [facility] PER NCEP ATP III GUIDELINES:RESULTS LOWE R THAN 40 MG/DL ARE SUGGESTIVEOF INCREASED RISK FOR CORONARY ARTERYDISEASE. RESULTS > OR = TO 60 MG/DL ARECONSIDERED A NEGATIVE RISK FACTOR. CHOL/HDL RATIO 3.6 RATIO [facility] INTERPRETATION OF CHOL-HDL RATIO CHD RISK FEMALE MALEVERY HIGH >8.3 >14.3HIGH 5.6- 8.3 6.7- 14.3AVERAGE 3.7- 5.6 4.0- 6.7BELOW AVERAGE 2.5- 3.7 2.7- 4.0PROTECTED <2.5 <2.7 LDL CHOL (CALC) 43 mg/dL (<130) [facility] PER NCEP ATP III GUIDELINES: OPTIMAL < 100 NEAR OPTIMAL 100 - 129BORDERLINE HIGH 130 - 159 HIGH 160 - 189 VERY HIGH > 189 ID Date Data Source [id number] 12/13/2020 07:17:50 PM EDT [facility] Name Value Range Interpretation Code Description Data Morena rce(s) Supporting Document(s) TROPONIN I 5.89 ng/mL (<0.05) H [facility] Less than 0.05: Myocardial injury unlike lyGreater than or equal to 0.05: Highly suggestive of myocardial injuryCorrelation with rise and/or fall ofserial troponins, clinical symptomsand ECG changes is necessary.ALERTED CRITICAL RESULT [place] ([id number]) [place] [address] ON 12.13.20 AT 18:46 [place] [id number] ID Date Data Source [id number] 12/13/2020 06:02:25 PM EDT [facility] Name Value Range Interpretation Code Description Data Morena rce(s) Supporting Document(s) NT PRO BNP 74738 pg/mL (0-125) H [facility] [place] ID Date Data Source [id number] 12/13/2020 06:02:25 PM EDT [facility] Name Value Range Interpretation Code Description Data Morena rce(s) Supporting Document(s) TSH,ULTRASENSITIVE @ 1.779 mIU/L (0.360-4.170) [facility] PERFORMED AT [address] [place] [address] [place] [address] ID Date Data Source [id number] 12/13/2020 06:02:25 PM EDT [facility] Name Value Range Interpretation Code Description Data Morena rce(s) Supporting Document(s) SODIUM 133 mmol/L (136-145) L [facility] POTASSIUM 5.2 mmol/L (3.6-5.2) [facility] CHLORIDE 100 mmol/L (100-108) [facility] CO2 21 mmol/L (22-31) L [facility] ANION GAP 12 mmol/L (7-16) [facility] UREA NITROGEN 60 mg/dL (7-24) H [facility] CREATININE 4.30 mg/dL (0.80-1.30) H [facility] BUN/CREAT RATIO 14.0 RATIO (10.0-20.0) [facility] GLUCOSE 92 mg/dL (70-99) [facility] CALCIUM 9.8 mg/dL (8.4-10.2) [facility] TOTAL PROTEIN 6.9 g/dL (6.4-8.2) [facility] ALBUMIN 3.7 g/dL (3.5-4.6) [facility] GLOBULIN 3.2 g/dL (2.7-4.3) [facility] ALB/GLOB RATIO 1.2 RATIO [facility] ALKALINE PHOSPHATASE 52 U/L (45-117) [facility] BILIRUBIN,TOTAL 0.7 mg/dL (0.0-1.0) [facility] PLEASE NOTE:Total bilirubin results may be falselyelevated in patients taking Eltrombopag. AST (SGOT) 7665 U/L (11-39) H [facility] ALT (SGPT) 6369 U/L (12-78) H [facility] GFR 14 ml/min/1.73m2 (>59) L [facility] GFR ( AMER) 17 ml/min/1.73m2 (>59) L [facility] GFR INTERPRETATION [facility] --NORMAL KIDNEY FUNCTION OR MILD DISEASE - GFR >OR= 60CHRONIC KIDNEY DISEASE - GFR 15 - 59RENAL FAILURE - GFR <15 Est. GFR calculation based on the MDRDstudy equation, which assumes a steadystate for creatinine. Est. GFR should notbe used for medication dosing. ID Date Data Source [id number] 12/13/2020 05:44:07 PM EDT [facility] Name Value Range Interpretation Code Description Data Morena rce(s) Supporting Document(s) PHOSPHORUS 7.2 mg/dL (2.5-4.5) H [facility] ID Date Data Source [id number] 12/13/2020 05:44:07 PM EDT [facility] Name Value Range Interpretation Code Description Data Morena rce(s) Supporting Document(s) MAGNESIUM 2.0 mg/dL (1.7-2.4) [facility] ID Date Data Source [id number] 12/13/2020 05:44:07 PM EDT [facility] Name Value Range Interpretation Code Description Data Morena rce(s) Supporting Document(s) ETHANOL <3 mg/dL (0-3) [facility] ID Date Data Source [id number] 12/13/2020 05:37:26 PM EDT [facility] Name Value Range Interpretation Code Description Data Morena rce(s) Supporting Document(s) HEMOGLOBIN A1C @ 6.7 % (4.0-6.0) H [facility] Performed using Siem[employer] [place] immunoassa y.Care must be taken when interpreting [id number] in patients with a hemoglobin variantor decreased erythrocyte lifespan. Values 5.7 - 6.4% suggest prediabetes.Values >=6.5% are diagnostic for diabetes.REFERENCE: DIABETES CARE 2018: 41(S13-S27).PERFORMED AT [address] [place] [address] EST AVERAGE GLUCOSE 146 mg/dL [facility] ID Date Data Source [id number] 12/13/2020 05:30:16 PM EDT [facility] Name Value Range Interpretation Code Description Data Morena rce(s) Supporting Document(s) APTT 27.6 s (22.0-34.3) [facility] ID Date Data Source [id number] 12/13/2020 05:30:16 PM EDT [facility] Name Value Range Interpretation Code Description Data Morena rce(s) Supporting Document(s) PT 16.3 s (9.2-11.9) H [facility] INR 1.59 [facility] SUGGESTED THERAPEUTIC RANGES USING INR F ORSTABILIZED ANTICOAGULATED PATIENTS:STANDARD DOSE THERAPY INR 2.0-3.0 DVT, PE, PREVENT DVT OR EMBOLISMHIGH DOSE THERAPY INR 2.5-3.5 PREVENT EMBOLISM FROM MECHANICAL HEART VALVE ID Date Data Source [id number] 12/13/2020 05:13:26 PM EDT [facility] Name Value Range Interpretation Code Description Data Morena rce(s) Supporting Document(s) WBC 14.4 10*3/uL (4.1-11.0) H [facility] RBC 4.93 10*6/uL (4.60-6.10) [facility] HGB 15.9 g/dL (13.5-18.0) [facility] HCT 46.9 % (41.0-53.0) [facility] MCV 95.2 fL (80.0-95.0) H [facility] MCH 32.3 pg (27.0-32.0) H [facility] MCHC 33.9 g/dL (32.0-36.0) [facility] RDW 14.5 % (10.5-14.5) [facility] PLT 126 10*3/uL (150-450) L [facility] MPV 9.8 fL (7.1-10.7) [facility] NEUT % 85.3 % (35.0-75.0) H [facility] LYMPH % 10.5 % (16.0-52.0) L [facility] MONO % 4.0 % (0.0-8.0) [facility] EOS % 0.1 % (0.0-5.0) [facility] BASO % 0.1 % (0.0-4.0) [facility] NEUT # 12.3 10*3/uL (1.8-7.7) H [facility] LYMPH # 1.5 10*3/uL (1.2-4.8) [facility] MONO # 0.6 10*3/uL (0.0-0.8) [facility] Eosinophils [#/volume] in Blood by Automated count 0.0 10*3/uL (0.0-0 .5) [facility] BASO # 0.0 10*3/uL (0.0-0.2) [facility] ID Date Data Source [id number] 12/20/2020 01:41:37 PM EDT [facility] Name Value Range Interpretation Code Description Data Morena rce(s) Supporting Document(s) PROTEIN,URINE 148 mg/dL [facility] URINE PROTEIN MAY BE FALSELY ELEVATEDDUR ING TREATMENT WITH AMINOGLYCOSIDESDUE TO METHOD INTERFERENCE. ALBUMIN URINE 35.7 % [facility] ALPH1 1 URINE 64.3 % [facility] TOTAL OTHER FRACTIONS ALPHA 2 URINE [facility] BETA URINE [facility] GAMMA URINE [facility] INTERPRETATION: [facility] MIXED PATTERN PROTEINURIAI.MD HERIBERTO 12/16/20Interpretation [place] [address] ID Date Data Source [id number] 12/13/2020 10:14:50 PM EDT [facility] Name Value Range Interpretation Code Description Data Morena rce(s) Supporting Document(s) URINE WBC (0-5) [facility] URINE RBC (0-2) [facility] EPITHELIAL CELLS 1+ [HPF] [facility] AMORPHOUS 2+ [HPF] [facility] COARSE GRAN CAST [facility] ID Date Data Source [id number] 12/13/2020 08:02:02 PM EDT [facility] Name Value Range Interpretation Code Description Data Morena rce(s) Supporting Document(s) PROTEIN,URINE 148 mg/dL [facility] URINE PROTEIN MAY BE FALSELY ELEVATEDDUR ING TREATMENT WITH AMINOGLYCOSIDESDUE TO METHOD INTERFERENCE. CREATININE,URINE 159.00 mg/dL [facility] URINE TP/CR RATIO 0.93 RATIO (0.00-0.20) H [facility] ID Date Data Source [id number] 12/13/2020 08:02:02 PM EDT [facility] Name Value Range Interpretation Code Description Data Morena rce(s) Supporting Document(s) RANDOM URINE CREAT 159.00 mg/dL [facility] ID Date Data Source [id number] 12/13/2020 08:02:02 PM EDT [facility] Name Value Range Interpretation Code Description Data Morena rce(s) Supporting Document(s) RANDOM URINE SODIUM 36 mmol/L [facility] RAND URINE POTASSIUM 84.9 mmol/L [facility] RAND. URINE CHLORIDE 20 mmol/L [facility] ID Date Data Source [id number] 12/13/2020 07:49:14 PM EDT [facility] Name Value Range Interpretation Code Description Data Morena rce(s) Supporting Document(s) COLOR [facility] APPEARANCE [facility] SPEC GRAV URINE 1.023 (1.003-1.030) [facility] PH URINE 5.0 (5.0-7.5) [facility] LEUK ESTERASE (NEG) [facility] NITRITE URINE (NEG) [facility] PROTEIN URINE 1+ (NEG) A [facility] GLUCOSE URINE 2+ (NEG) A [facility] KETONE URINE (NEG) A [facility] UROBILINOGEN 0.2 mg/dL (0-1.0) [facility] BILIRUBIN URINE 1+ (NEG) A [facility] INTERFERING SUBSTANCES MAY CAUSE FALSEPO SITIVE BILIRUBIN, WHICH HAS BEENSHOWN TO BE CLINICALLY INSIGNIFICANT.CORRELATE WITH OTHER TESTING. BLOOD/HGB URINE 2+ (NEG) A [facility] ID Date Data Source [id number] 12/13/2020 09:32:00 AM EDT [facility] ([facility]) Name Value Range Interpretation Code Description Data Morena rce(s) Supporting Document(s) Natriuretic peptide.B prohormone N-Terminal [Mass/volu me] in Serum or Plasma 50272 pg/mL [facility] ([facility]) Magnesium [Mass/volume] in Serum or Plasma 1.9 mg/dL 1.8-2.4 [facility] ([facility]) Thyrotropin [Units/volume] in Serum or Plasma 2.450 uIU/ML 0.358-3.74 0 [facility] ([facility]) Lipoprotein lipase [Enzymatic activity/volume] in Serum or P lasma 204 U/L 73-393 [facility] ([facility]) ID Date Data Source [id number] 12/13/2020 09:32:00 AM EDT [facility] ([facility]) Name Value Range Interpretation Code Description Data Morena rce(s) Supporting Document(s) Glucose, Fasting 150 mg/dL 70-100 [facility] ([facility]) Creatinine For GFR 4.94 mg/dL 0.70-1.30 [facility] ([facility]) Blood Urea Nitrogen 58 mg/dL 7-18 [facility] (Ca rdiology [facility]) Glomerular Filtration Rate 12.9 MED ENT ([facility]) <content>Units are mL/min/1.73 m2</content>
<content></content>
<content>Chronic Kidney Disease Staging per NKF:</content>
<content></content>
<content>Stage I & II GFR >=60 Normal to Mildly Decreased</content>
<content>Stage III GFR 30-59 Moderately Decreased</content>
<content>Stage IV GFR 15-29 Severely Decreased</content>
<content>Stage V GFR <15 Very Little GFR Left</content>
<content>ESRD GFR <15 on GROUP ROOMS COORDINATOR</content>
<content></content> Sodium Level 133 meq/L 136-145 [facility] ([facility]) Chloride Level 97 meq/L 98-107 [facility] ([facility]) Potassium Serum 6.5 meq/L 3.5-5.1 Above upper panic limits [facility] ([facility]) Carbon Dioxide Level 21 meq/L 21-32 [facility] ([facility]) Anion Gap 15 meq/L 8-16 [facility] Calcium Level 8.8 mg/dL 8.5-10.1 [facility] ([facility]) ID Date Data Source [id number] 12/13/2020 09:32:00 AM EDT [facility] ([facility]) Name Value Range Interpretation Code Description Data Morena rce(s) Supporting Document(s) Ast/Sgot 5044 U/L 7-37 [facility] Alkaline Phosphatase 49 U/L 45-117 [facility] ([facility]) Bilirubin,Total 0.8 mg/dL 0.2-1.0 [facility] ([facility]) Alt/SGPT 5023 U/L 12-78 [facility] Bilirubin,Direct 0.4 mg/dL 0.0-0.2 [facility] ([facility] Total Protein 6.7 GM/DL 6.4-8.2 [facility] (Cardiolo gy [facility]) Albumin 3.4 GM/DL 3.2-5.2 [facility] ([facility]iology [facility]) Albumin/Globulin Ratio 1.0 [facility] ([facility]) ID Date Data Source [id number] 12/13/2020 08:44:00 AM EDT [facility] ([facility]) Name Value Range Interpretation Code Description Data Morena rce(s) Supporting Document(s) Prothrombin Time 22.4 s 12.7-14.5 [facility] ([facility]) Inr 1.92 [facility] ([facility]iology [facility]) THERAPUTIC HUMAN INR VALUES INDICATIONS NORMAL RANGES PROPHYLAXIS/TREATMENT OF: VENOUS THROMBOSIS 2.0-3.0 PULMONARY EMBOLISM 2.0-3.0 PREVENTION OF SYSTEMIC EMBOLISM FROM: TISSUE HEART VALVES 2.0-3.0 ACUTE MYOCARDIAL INFARCTION 2.0-3.0 VALVULAR HEART DISEASE 2.0-3.0 ATRIAL FIBRILLATION 2.0-3.0 MECHANICAL VALVES(HIGH RISK) 2.5-3.5 RECURRENT MYOCARDIAL INFARCTION 2.5-3.5 ID Date Data Source [id number] 12/13/2020 08:40:[address] [facility] Name Value Range Interpretation Code Description Data Morena rce(s) Supporting Document(s) SARS coronavirus 2 RNA [Presence] in Res piratory specimen by VICKEY with probe detection NEGATIVE [facility] This lab was ordered by [facility] a nd reported by [facility]. ID Date Data Source [id number] 07/27/2020 03:50:00 PM EDT [facility] ([facility]) Name Value Range Interpretation Code Description Data Morena rce(s) Supporting Document(s) Hemoglobin A1c/Hemoglobin.total in Blood 8.5 [facility] ([facility]) ID Date Data Source [id number] 07/27/2020 03:50:00 PM EDT [facility] ([facility]) Name Value Range Interpretation Code Description Data Morena rce(s) Supporting Document(s) Triglycerides 297 [facility] ([facility]) HDL 27 [facility] Cholesterol 117 [facility] ([facility]) Chol/HDL Ratio 4.333 [facility] ([facility]) Cholesterol in LDL [Mass/volume] in Serum or Plasma by calculation 31 [facility] ([facility]) ID Date Data Source [id number] 07/21/2020 04:19:00 PM EDT [facility] ([facility]) Name Value Range Interpretation Code Description Data Morena rce(s) Supporting Document(s) Troponin I.cardiac [Mass/volume] in Serum or Plasma 0.13 [facility] ([facility]) ID Date Data Source [id number] 07/21/2020 04:19:00 PM EDT [facility] ([facility]) Name Value Range Interpretation Code Description Data Morena rce(s) Supporting Document(s) Troponin I.cardiac [Mass/volume] in Serum or Plasma 0.11 [facility] ([facility]) ID Date Data Source [id number] 07/21/2020 03:32:00 PM EDT [facility] ([facility]) Name Value Range Interpretation Code Description Data Morena rce(s) Supporting Document(s) White Blood Count 12.9 5.0-10.0 [facility] ([facility]) Red Blood Count 5.50 4.00-5.40 [facility] ([facility]) Hematocrit 52.3 [facility] ([facility]) Platelets 214 172-450 [facility] ([facility]) Hemoglobin 17.9 [facility] ([facility]) ID Date Data Source [id number] 01/06/2020 11:04:00 AM EDT [facility] ([facility]) Name Value Range Interpretation Code Description Data Morena rce(s) Supporting Document(s) Free T4 1.07 [facility] ([facility] Thyroid Stimulating Hormone 2.8000 ME [facility] ([facility]) ID Date Data Source [id number] 01/06/2020 11:04:00 AM EDT [facility] ([facility]) Name Value Range Interpretation Code Description Data Morena rce(s) Supporting Document(s) Alanine aminotransferase [Enzymatic activity/volume] in Serum or Pl asma 42 [facility] ([facility]) Albumin [Mass/volume] in Serum or Plasma 3.9 [facility] ([facility]) Carbon dioxide, total [Moles/volume] in Serum or Plasma 27 [facility] ([facility]) Chloride [Moles/volume] in Serum or Plasma 98 [facility] ([facility]) Calcium [Mass/volume] in Serum or Plasma 9.4 [facility] ([facility]) Potassium [Moles/volume] in Serum or Plasma 4.8 [facility] ([facility]) Alkaline phosphatase [Enzymatic activity/volume] in Serum or Plasma 5 7 [facility] ([facility]) Protein [Mass/volume] in Serum or Plasma 7.5 [facility] ([facility]) Sodium 134 [facility] ([facility]) Aspartate aminotransferase [Enzymatic activity/volume] in Serum or Plasma 24 [facility] ([facility]) Glucose 142 70-100 [facility] ([facility]) Creatinine For GFR 1.30 [facility] ([facility]) Urea nitrogen [Mass/volume] in Serum or Plasma 27 [facility] ([facility]) ID Date Data Source [id number] 01/06/2020 11:04:00 AM EDT [facility] ([facility]) Name Value Range Interpretation Code Description Data Morena rce(s) Supporting Document(s) Triglycerides 427 [facility] ([facility]) HDL 27 [facility] ([facility] Cholesterol 145 [facility] ([facility]) Cholesterol in LDL [Mass/volume] in Serum or Plasma by calculation 11 8 [facility] ([facility]) Chol/HDL Ratio 5.370 [facility] ([facility]) ID Date Data Source [id number] 01/06/2020 11:04:00 AM EDT [facility] ([facility]) Name Value Range Interpretation Code Description Data Morena rce(s) Supporting Document(s) Hemoglobin A1c/Hemoglobin.total in Blood 7.9 [facility] ([facility]) ID Date Data Source [id number] 01/06/2020 11:04:00 AM EDT [facility] ([facility]) Name Value Range Interpretation Code Description Data Morena rce(s) Supporting Document(s) Red Blood Count 4.70 4.30-6.10 [facility] ([facility]) White Blood Count 11.1 4.0-10.0 [facility] ([facility]) Hemoglobin 15.5 [facility] ([facility]) Hematocrit 46.0 [facility] ([facility]) Platelets 201 150-450 [facility] ([facility] Procedure Social History Code Duration Value Status Description Data Source(s ) Alcohol intake 02/21/2021 12:00:00 AM EST Ex-drinker (finding) comp leted Ex- drinker (finding) [facility] Smoking 01/19/2021 12:00:00 AM EDT Former Smoker completed Former Smoker eCW1 ([facility]) Smoking 12/24/2020 12:00:00 AM EDT Former Smoker completed Former Smoker eCW1 ([facility]) Smoking 12/24/2020 12:00:00 AM EDT Former Smoker completed Former Smoker eCW1 ([facility]) Smoking 12/23/2020 12:00:00 AM EDT Patient is a former smoker completed Patient is a former smoker [facility] ([facility]) Alcohol intake 12/16/2020 12:00:00 AM EDT Ex-drinker (finding) comp leted Ex- drinker (finding) [facility] Smoking 10/15/2020 12:00:00 AM EDT Former Smoker completed Former Smoker eCW1 ([facility]) Smoking 07/23/2020 12:00:00 AM EDT Former Smoker completed Former Smoker eCW1 ([facility]) Smoking 07/23/2020 12:00:00 AM EDT Former Smoker completed Former Smoker eCW1 ([facility]) Smoking 07/23/2020 12:00:00 AM EDT Former Smoker completed Former Smoker eCW1 ([facility]) Smoking 07/23/2020 12:00:00 AM EDT Former Smoker completed Former Smoker eCW1 ([facility]) Smoking 07/23/2020 12:00:00 AM EDT Former Smoker completed Former Smoker eCW1 ([facility]) Smoking 07/23/2020 12:00:00 AM EDT Former Smoker completed Former Smoker eCW1 ([facility]) Smoking 01/15/2020 12:00:00 AM EDT Former Smoker completed Former Smoker eCW1 ([facility]) Smoking 01/15/2020 12:00:00 AM EDT Former Smoker completed Former Smoker eCW1 ([facility]) Smoking 01/15/2020 12:00:00 AM EDT Former Smoker completed Former Smoker eCW1 ([facility]) Smoking 01/15/2020 12:00:00 AM EDT Former Smoker completed Former Smoker eCW1 ([facility]) Vital Signs ID Date Data Source UNK Name Value Range Interpretation Code Description Data Source(s) Systolic blood pressure 114 mm[Hg] 114 mm[Hg] [facility] Diastolic blood pressure 59 mm[Hg] 59 mm[Hg] [facility] Heart rate 54 /min 54 /min [facility] Body temperature 36.39 Hawa 36.39 Hawa [facility] Respiratory rate 16 /min 16 /min [facility] Oxygen saturation in Arterial blood by Pulse oximetry 95 % 95 % [facility] Body height 170.2 cm 170.2 cm [facility] Body weight 90.357 kg 90.357 kg [facility] Body mass index (BMI) [Ratio] 31.20 kg/m2 31.20 kg/m2 [facility] Body weight 203.2 [lb_av] 203.2 [lb_av] eCW1 ([facility]) Body height [in_i] eCW1 ([facility]) Body mass index (BMI) [Ratio] 31.82 kg/m2 31.82 kg/m2 eCW1 ([facility]) Heart rate 86 /min 86 /min eCW1 ([facility]) Respiratory rate 18 /min 18 /min eCW1 ([facility]) Body temperature 96.8 [degF] 96.8 [degF] eCW1 ( [facility]) Systolic blood pressure 120 mm[Hg] 120 mm[Hg] e CW1 ([facility]) Diastolic blood pressure 70 mm[Hg] 70 mm[Hg] eCW1 ([facility]) Body weight 198 [lb_av] 198 [lb_av] eCW1 ([facility]) Body weight 89.81 kg 89.81 kg W1 ([facility]) Body height [in_i] eCW1 ([facility]) Body mass index (BMI) [Ratio] 31.01 kg/m2 31.01 kg/m2 eCW1 ([facility]) Heart rate 96 /min 96 /min eCW1 ([facility]) Respiratory rate 18 /min 18 /min eCW1 ([facility]) Body temperature 97.8 [degF] 97.8 [degF] eCW1 ( [facility]) Systolic blood pressure 140 mm[Hg] 140 mm[Hg] e CW1 ([facility]) Diastolic blood pressure 70 mm[Hg] 70 mm[Hg] eCW1 ([facility]) Systolic blood pressure--sitting 124 mm[Hg] 124 mm[Hg] [facility]LO ([facility] Ra, medium cuff Body weight 198.00 [lb_av] 198.00 [lb_av] MEDEN T ([facility]) Body height 68 [in_i] 68 [in_i] [facility] ([facility]) 5'8" Body mass index (BMI) [Ratio] 30.1 kg/m2 30.1 k g/m2 [facility] ([facility]) Diastolic blood pressure--sitting 82 mm[Hg] 82 mm[Hg] [facility] ([facility]) Ra, medium cuff Systolic blood pressure 104 mm[Hg] 104 mm[Hg] [facility] Diastolic blood pressure 64 mm[Hg] 64 mm[Hg] [facility] Heart rate 63 /min 63 /min [facility] Body temperature 36.89 Hawa 36.89 Hawa [facility] Respiratory rate 18 /min 18 /min [facility] Oxygen saturation in Arterial blood by Pulse oximetry 94 % 94 % [facility] Body weight 90.2 kg 90.2 kg [facility] Post dialysis wt Body mass index (BMI) [Ratio] 30.24 kg/m2 30.24 kg/m2 [facility] Body weight 214 [lb_av] 214 [lb_av] eCW1 ([facility]) Body height [in_i] eCW1 ([facility]) Body mass index (BMI) [Ratio] 33.51 kg/m2 33.51 kg/m2 eCW1 ([facility]) Heart rate 78 /min 78 /min eCW1 ([facility]) Respiratory rate 18 /min 18 /min eCW1 ([facility]) Body temperature 97.4 [degF] 97.4 [degF] eCW1 ( [facility]) Systolic blood pressure 138 mm[Hg] 138 mm[Hg] e CW1 ([facility]) Diastolic blood pressure 82 mm[Hg] 82 mm[Hg] eCW1 ([facility]) Body mass index (BMI) [Ratio] 32.8 kg/m2 32.8 k g/m2 [facility] ([facility]) Body weight 216.00 [lb_av] 216.00 [lb_av] MEDEN T ([facility]) Body height 68 [in_i] 68 [in_i] [facility] ([facility]) 5'8" Systolic blood pressure--sitting 126 mm[Hg] 126 mm[Hg] [facility] ([facility]) Ra, large cuff Diastolic blood pressure--sitting 82 mm[Hg] 82 mm[Hg] [facility] ([facility]) Ra, large cuff Body weight 220.2 [lb_av] 220.2 [lb_av] eCW1 ([facility]) Body height [in_i] eCW1 ([facility]) Body mass index (BMI) [Ratio] 34.48 kg/m2 34.48 kg/m2 eCW1 ([facility]) Heart rate 72 /min 72 /min eCW1 ([facility]) Respiratory rate 18 /min 18 /min eCW1 ([facility]) Body temperature 97.7 [degF] 97.7 [degF] eCW1 ( [facility]) Systolic blood pressure 110 mm[Hg] 110 mm[Hg] e CW1 ([facility]) Diastolic blood pressure 70 mm[Hg] 70 mm[Hg] eCW1 ([facility]) Heart rate 74 /min 74 /min [facility] ([facility]) Respiratory rate 16 /min 16 /min [facility] ( [facility]) nonlabored Systolic blood pressure--sitting 128 mm[Hg] 128 mm[Hg] [facility] ([facility]) Ra, large cuff Diastolic blood pressure--sitting 82 mm[Hg] 82 mm[Hg] [facility] ([facility]) Ra, large cuff Body weight 230.00 [lb_av] 230.00 [lb_av] MEDEN T ([facility]) Body height 68 [in_i] 68 [in_i] [facility] ([facility]) 5'8" Body mass index (BMI) [Ratio] 35.0 kg/m2 35.0 k g/m2 [facility] ([facility]) Body weight 238 [lb_av] 238 [lb_av] eCW1 ([facility]) Body height [in_i] eCW1 ([facility]) Body mass index (BMI) [Ratio] 37.27 kg/m2 37.27 kg/m2 eCW1 ([facility]) Heart rate 78 /min 78 /min eCW1 ([facility]) Respiratory rate 18 /min 18 /min eCW1 ([facility]) Body temperature 97.9 [degF] 97.9 [degF] eCW1 ( [facility]) Systolic blood pressure 140 mm[Hg] 140 mm[Hg] e CW1 ([facility]) Diastolic blood pressure 90 mm[Hg] 90 mm[Hg] eCW1 ([facility]) Patient Treatment Plan of Care Planned Activity Planned Date Details Description Data Source (s) 24 HR metoprolol succinate 50 MG Extended Release Oral Tablet 02/22/2021 12:00:00 AM EST [facility] Amiodarone hydrochloride 200 MG Oral Tablet 02/22/2021 12:00:00 AM EST [facility] Albuterol 0.833 MG/ML / Ipratropium [place] 0.167 MG/M L Inhalant Solution 02/21/2021 07:24:50 AM EST [facility] normal saline flush 0.9 % injection 3 mL 02/21/2021 07:00:00 AM EST [facility] normal saline flush 0.9 % injection 3 mL 02/21/2021 07:00:00 AM EST [facility] Albuterol 0.83 MG/ML Inhalant Solution 02/21/2021 06:33:07 AM EST [facility] ondansetron (ZOFRAN) injection 4 mg 02/21/2021 05:55:12 AM EST [facility] Furosemide 40 MG Oral Tablet 12/17/2020 12:00:00 AM EDT [facility] clopidogrel 75 MG Oral Tablet 12/17/2020 12:00:00 AM EDT [facility] Acetaminophen 325 MG Oral Tablet 12/15/2020 12:45:21 PM EDT [facility] Albuterol 0.83 MG/ML Inhalant Solution 12/13/2020 01:19:02 PM EDT [facility] Nitroglycerin 0.4 MG Sublingual Tablet 12/13/2020 01:16:55 PM EDT [facility] Lancets - 07/30/2020 12:00:00 AM EDT e CW1 ([facility]) FreeStyle Lite Test - 07/30/2020 12:00:00 AM EDT eCW1 ([facility]) Blood Glucose Monitor System w/Device 07/30/2020 12:00:00 AM EDT eCW1 ([facility]) Blood Glucose Test - 07/30/2020 12:00:00 AM EDT eCW1 ([facility]) Lancets - 07/30/2020 12:00:00 AM EDT e CW1 ([facility]) FreeStyle Lite Test - 07/30/2020 12:00:00 AM EDT eCW1 ([facility]) Blood Glucose Monitor System w/Device 07/30/2020 12:00:00 AM EDT eCW1 ([facility]) Blood Glucose Test - 07/30/2020 12:00:00 AM EDT eCW1 ([facility]) Lancets - 07/30/2020 12:00:00 AM EDT e CW1 ([facility]) FreeStyle Lite Test - 07/30/2020 12:00:00 AM EDT eCW1 ([facility]) Blood Glucose Monitor System w/Device 07/30/2020 12:00:00 AM EDT eCW1 ([facility]) Blood Glucose Test - 07/30/2020 12:00:00 AM EDT eCW1 ([facility]) Lancets - 07/30/2020 12:00:00 AM EDT e CW1 ([facility]) FreeStyle Lite Test - 07/30/2020 12:00:00 AM EDT eCW1 ([facility]) Blood Glucose Monitor System w/Device 07/30/2020 12:00:00 AM EDT eCW1 ([facility]) Blood Glucose Test - 07/30/2020 12:00:00 AM EDT eCW1 ([facility]) 24 HR Metformin hydrochloride 500 MG Extended Release Oral Tablet 07/28/2020 12:00:00 AM EDT eCW1 ([facility]) 24 HR Metformin hydrochloride 500 MG Extended Release Oral Tablet 07/28/2020 12:00:00 AM EDT eCW1 ([facility]) 24 HR Metformin hydrochloride 500 MG Extended Release Oral Tablet 07/28/2020 12:00:00 AM EDT eCW1 ([facility]) 24 HR Metformin hydrochloride 500 MG Extended Release Oral Tablet 07/28/2020 12:00:00 AM EDT eCW1 ([facility]) 24 HR Metformin hydrochloride 500 MG Extended Release Oral Tablet 07/28/2020 12:00:00 AM EDT eCW1 ([facility]) 24 HR Metformin hydrochloride 500 MG Extended Release Oral Tablet 07/28/2020 12:00:00 AM EDT eCW1 ([facility]) 24 HR Metformin hydrochloride 500 MG Extended Release Oral Tablet 07/28/2020 12:00:00 AM EDT eCW1 ([facility]) Steglatro 15 MG 02/20/2020 12:00:00 AM EST eCW1 ([facility]) Steglatro 15 MG 02/20/2020 12:00:00 AM EST eCW1 ([facility]) montelukast 10 MG Oral Tablet [Singulair] 02/12/2020 12:00:00 AM ES T eCW1 ([facility]) montelukast 10 MG Oral Tablet [Singulair] 02/12/2020 12:00:00 AM ES T eCW1 ([facility]) Steglatro 15 MG 01/28/2020 12:00:00 AM EDT eCW1 ([facility]) Steglatro 15 MG 01/28/2020 12:00:00 AM EDT eCW1 ([facility]) Steglatro 15 MG 01/28/2020 12:00:00 AM EDT eCW1 ([facility]) Steglatro 15 MG 01/28/2020 12:00:00 AM EDT eCW1 ([facility]) OneTouch Ultra II Test Strips 01/15/2020 12:00:00 AM EDT eCW1 ([facility]) OneTouch Ultra II Test Strips 01/15/2020 12:00:00 AM EDT eCW1 ([facility]) OneTouch Ultra II Test Strips 01/15/2020 12:00:00 AM EDT eCW1 ([facility]) empagliflozin 10 MG Oral Tablet [Jardiance] 01/15/2020 12:00:00 AM EDT eCW1 ([facility]) OneTouch Ultra II Test Strips 01/15/2020 12:00:00 AM EDT eCW1 ([facility]) montelukast 10 MG Oral Tablet [Singulair] 01/15/2020 12:00:00 AM ED T eCW1 ([facility]) empagliflozin 10 MG Oral Tablet [Jardiance] 01/15/2020 12:00:00 AM EDT eCW1 ([facility]) OneTouch Ultra II Test Strips 01/15/2020 12:00:00 AM EDT eCW1 ([facility]) montelukast 10 MG Oral Tablet [Singulair] 01/15/2020 12:00:00 AM ED T eCW1 ([facility]) OneTouch Ultra II Test Strips 01/15/2020 12:00:00 AM EDT eCW1 ([facility]) Bisoprolol Fumarate 5 MG Oral Tablet [facility] Ibuprofen 200 MG Oral Tablet [facility] Chlorthalidone 25 MG Oral Tablet [facility] Amlodipine 10 MG Oral Tablet [facility] clopidogrel 75 MG Oral Tablet [facility] PARoxetine (PAXIL) 20 MG tablet [facility] Metformin hydrochloride 850 MG Oral Tablet [facility] Atenolol 50 MG Oral Tablet [facility] Losartan Potassium 50 MG Oral Tablet [facility]
[2021-02-24] MEDS ORDERED: METO1TAB7 (11:24)
[2021-02-24] MEDS ORDERED: AMIO200T3 (11:24)
[2021-02-24 12:39] LABS: BASO # 0.1 10^3/uL (0.0-0.2); BASO % 0.7 % (0.0-1.0); EOS # 0.1 10^3/uL (0.0-0.5); EOS % 0.6 % (0.0-3.0); HEMATOCRIT 50.3 % (42.0-52.0); HEMOGLOBIN 16.8 g/dl (13.5-17.5); LYMPH # 1.7 10^3/uL (1.5-5.0); LYMPH % 13.8 % (24.0-44.0); MEAN CORPUSCULAR HEMOGLOBIN 31.9 pg (27.0-33.0); MEAN CORPUSCULAR HGB CONC 33.4 g/dl (32.0-36.5); MEAN CORPUSCULAR VOLUME 95.6 fl (80.0-96.0); MONO # 0.7 10^3/uL (0.0-0.8); MONO % 5.7 % (2.0-8.0); NEUTROPHILS # 9.6 10^3/uL (1.5-8.5); NEUTROPHILS % 78.6 % (36.0-66.0); PLATELET COUNT, AUTOMATED 215 10^3/uL (150-450); RED BLOOD COUNT 5.26 10^6/uL (4.30-6.10); WHITE BLOOD COUNT 12.2 10^3/uL (4.0-10.0)
--- NOTE | 2021-02-24 12:40 | REP ---
INDICATION: chest pain. COMPARISON: Multiple the latest 02/21/2021 TECHNIQUE: PA and lateral FINDINGS: There is cardiomegaly status quo. The single chamber bipolar pacemaker device is unchanged. The lung reddy are stable. No acute patchy parenchymal opacities or pleural effusions have developed. There is no change in the osseous structures. IMPRESSION: There is no acute cardiopulmonary disease. There is cardiomegaly status quo. <Electronically signed by Faustino Avina > 02/24/21 [id number]
--- OUTSIDE RECORDS SUMMARY | 2021-02-24 12:58 | CCD ---
Author Author [facility] Organization [facility] Address Unknown Phone Unavailable Care Team Providers Care Director Regulatory Affairs Name Role Phone Karson HAWLEY MD Unavailable [...] Unavailable Gloria, Jaswinder MD Unavailable Unavailable Gloria, Jasiwnder MD Unavailable Unavailable Gloria, Jaswinder MD Unavailable [...] Leo Landin MD Unavailable Unavaila ble Migeed, eLo Landin MD Unavailable Unavaila ble Migeed, Leo [...] by Article 27-F of the [facility] Public Health law. If you continue you may have access to information: Regarding HIV / AIDS; Provided by facilities licensed or operated by the [facility] Office of Mental Health; or Provided by the [place] State Office for People With Developmental Disabilities. If such information is present, then the following [facility] mandated warning applies: This information has been [...] law may result in a fine or fci sentence or both. A general authorization for the release of medical or other information is NOT sufficient authorization for further disc losure. Family History Family Member Name Family Member Gender Family Member Status Date o f Status Description Data Source(s) Unknown Male Problem MEDENT ([facility] Unknown Male Problem MEDENT ([facility]) Unknown Female Problem MEDENT ([facility] Unknown Female Problem [facility] ([facility] Unknown Female Problem MEDENT ([facility] Encounters Encounter Providers Location Date Indications Data Source(s ) Inpatient Attender: LEONID HAWLEY MD Attender: GRISELDA FAITH MDAttender: QUINN ANDRES MDAdmitter: QUINN ANDRES MDConsultant: Mushtaq Hylton MD [id number] 02/21/2021 05:48:00 AM [facility] - 02/22/2021 12:37:00 PM [facility] Patient discharged[facility] Outpatient [address] [facility] [address] 01/19/2021 12:00:00 AM EDT eCW1 ([facility]) Unknown [address] [facility] [place] [address] 12/31/2020 12:00:00 AM EDT eCW1 ([facility]) Outpatient [address] [facility] [place] [address] 12/24/2020 12:00:00 AM EDT eCW1 ([facility]) Outpatient Attender: HAIR ADDISON Main Office 12/23/2020 1 1:15:00 AM EDT MEDENT ([facility]) Inpatient Attender: Jsawinder Sabillon ramirez: LILIANA DEANAttender: Crystal Neal MDAdmitter: Crystal Neal MDConsultant: Mushtaq Hylton MD [id number] 12/13/2020 12:38:00 PM EDT - 12/17/2020 10:44:00 PM EDT [facility] Patient discharged. Outpatient [address] [facility] [address] 10/15/2020 12:00:00 AM EDT eCW1 ([facility]) Unknown [address] [facility] [place] [address] 08/04/2020 12:00:00 AM EDT eCW1 ([facility]) Unknown [address] [facility] [place] [address] 07/30/2020 12:00:00 AM EDT eCW1 ([facility]) Unknown [address] [facility] [address] 07/30/2020 12:00:00 AM EDT eCW1 ([facility]) Outpatient Attender: HAIR ADDISON Main Office 07/29/2020 0 3:30:00 PM EDT MEDENT ([facility]) Unknown [address] [facility] [place] [address] 07/28/2020 12:00:00 AM EDT eCW1 ([facility]) Unknown [address] [facility] [address] 07/28/2020 12:00:00 AM EDT eCW1 ([facility]) Outpatient [address] [facility] [place] [address] 07/23/2020 12:00:00 AM EDT eCW1 ([facility]) Outpatient Attender: HAIR ADDISON Main Office 04/27/2020 0 8:45:00 AM EST MEDENT ([facility]) Unknown [address] [facility] [address] 02/25/2020 12:00:00 AM EST eCW1 ([facility]) Unknown [address] [facility] [address] 02/12/2020 12:00:00 AM EST eCW1 ([facility]) Unknown [address] [facility] [address] 01/19/2020 12:00:00 AM EDT eCW1 ([facility]) Outpatient [address] [facility] [address] 01/15/2020 12:00:00 AM EDT eCW1 ([facility]) Immunizations Vaccine Date Status Description Data Source(s) influenza, recombinant, quadrIvalent,injectable, prese rvative free 01/19/2021 07:56:00 AM EDT completed eCW1 ([facility]) COVID-19 VACC,MRNA(MODERNA)/PF 08/23/2020 12:00:00 AM EDT completed [facility] COVID-19 VACCINE Moderna 08/23/2020 12:00:00 AM EDT completed [facility] Vaccine Series Complete: YESThis Data wa s Submitted to [facility] Via [employer]. COVID-19 VACCINE Moderna 07/25/2020 12:00:00 AM EDT completed [facility] Vaccine Series Complete: NOThis Data was Submitted to [facility] Via [employer]. COVID-19 VACC,MRNA(MODERNA)/PF 07/25/2020 12:00:00 AM EDT completed [facility] influenza, recombinant, quadrIvalent,injectable, prese rvative free 01/15/2020 07:34:00 AM EDT completed eCW1 ([facility]) influenza, recombinant, quadrIvalent,injectable, prese rvative free 01/15/2020 07:34:00 AM EDT completed eCW1 ([facility]) influenza, recombinant, quadrIvalent,injectable, prese rvative free 01/15/2020 07:34:00 AM EDT completed eCW1 ([facility]) influenza, recombinant, quadrIvalent,injectable, prese rvative free 01/15/2020 07:34:00 AM EDT completed eCW1 ([facility]) influenza, recombinant, quadrIvalent,injectable, prese rvative free 01/15/2020 07:34:00 AM EDT completed eCW1 ([facility]) influenza, recombinant, quadrIvalent,injectable, prese rvative free 01/15/2020 07:34:00 AM EDT completed eCW1 ([facility]) influenza, recombinant, quadrIvalent,injectable, prese rvative free 01/15/2020 07:34:00 AM EDT completed eCW1 ([facility]) influenza, recombinant, quadrIvalent,injectable, prese rvative free 01/15/2020 07:34:00 AM EDT completed eCW1 ([facility]) influenza, recombinant, quadrIvalent,injectable, prese rvative free 01/15/2020 07:34:00 AM EDT completed eCW1 ([facility]) influenza, recombinant, quadrIvalent,injectable, prese rvative free 01/15/2020 07:34:00 AM EDT completed eCW1 ([facility]) influenza, recombinant, quadrIvalent,injectable, prese rvative free 01/15/2020 07:34:00 AM EDT completed eCW1 ([facility]) influenza, recombinant, quadrIvalent,injectable, prese rvative free 01/15/2020 07:34:00 AM EDT completed eCW1 ([facility]) influenza, recombinant, quadrIvalent,injectable, prese rvative free 01/15/2020 07:34:00 AM EDT completed eCW1 ([facility]) influenza, recombinant, quadrIvalent,injectable, prese rvative free 01/15/2020 07:34:00 AM EDT completed eCW1 ([facility]) This CVX code allows reporting of a vacc ination when formulation is unknown (for example, when recording a Influenza vaccination when noted on a vaccination card) 01/08/2020 12:00:00 AM EDT completed <td ID="immun [id number]">Influenza (Unspecified)</td><td>01/08/2020</td><td></td> [facility] Medications Medication Brand Name Start Date Product Form Dose Route Admi nistrative Instructions Pharmacy Instructions Status Indications Reaction Description Data Source(s) Amiodarone hydrochloride 200 MG Oral Tablet amiodarone (PACERONE) tablet 400 mg amiodarone (PACERONE) tablet 400 mg 02/22/2021 01:00:00 PM EST 400 mg Oral completed 400 mg, Oral, Once, On Sun04/24/20 at 1300, For 1 dose [facility] Medication administered onsite Amiodarone hydrochloride 200 MG Oral Tablet amiodarone (PACERONE) 200 MG tablet amiodarone (PACERONE) 200 MG tablet 02/22/2021 12:00:00 AM EST 400 mg Oral active Take 2 tablets ( 400 mg total) by mouth 2 (two) times a day for 14 days [facility] 50 mg 02/22/2021 12:00:00 AM EST tablet extended release 24 hr 30 TAKE ONE TABLET BY MOUTH AT NIGHTLY TAKE ONE TABLET BY MOUTH AT NIGHTLY SOLD: 02/22/2021 [facility] Amiodarone hydrochloride 200 MG Oral Tablet AMIODARONE HCL 02/22/2021 12:00:00 AM EST tablet 56 TAKE TWO TABLETS BY MOUTH TW ICE A DAY FOR 14 DAYS TAKE TWO TABLETS BY MOUTH TWICE A DAY FOR 14 DAYS SOLD: 02/22/2021 [facility] 24 HR metoprolol succinate 50 MG Extende d Release Oral Tablet metoprolol succinate (TOPROL-XL) 50 MG 24 hr tablet metoprolol succinate (TOPROL-XL) 50 MG 24 hr tablet 02/22/2021 12:00:00 AM EST 50 mg Oral activ e Take 1 tablet (50 mg total) by mouth nightly [facility] 24 HR metoprolol succinate 50 MG Extende d Release Oral Tablet metoprolol succinate (TOPROL-XL) 24 hr tablet 50 mg metoprolol succinate (TOPROL-XL) 24 hr tablet 50 mg 02/21/2021 09:00:00 PM EST 50 mg Oral activ e 50 mg, Oral, Nightly, First dose on Sun02/21/21 at 2100 [facility] Medication administered onsite montelukast 10 MG Oral Tablet montelukast (SINGULAIR) tablet 10 mg montelukast (SINGULAIR) tablet 10 mg 02/21/2021 09:00:00 PM EST 10 mg Oral active 10 mg, Oral, Nightly, First dose on Sun02/21/21 at 2100 [facility] Medication administered onsite atorvastatin 80 MG Oral Tablet atorvastatin (LIPITOR) tablet 80 mg atorvastatin (LIPITOR) tablet 80 mg 02/21/2021 09:00:00 PM EST 80 mg Oral active 80 mg, Oral, Nightly, First dose on Sun02/21/21 at 2100 [facility] Medication administered onsite perflutren lipid microsphere (DEFINBetterfly) 8.476 mg in 10 mL NS IV drug or medication 02/21/2021 12:26:20 PM EST mL Intravenous co mpleted 2-10 mL, Intravenous, Once as needed, to be used when clinically necessary, Starting on Sun02/21/21 at 1226, For 1 dose
To be given with civil cadd technician at bedside for exam 1. Activate in VIALMIX agitator for 45 seconds 2. Withdraw 1.3 ml of activated perflutren suspension and dilute in 8.7 ml of 0.9% NS (Total volume = 10 ml) 3. Inject 2 ml slowly over 30 seconds. Repeat in 2 ml aliquots as needed. DO NOT EXCEED 10 ML TOTAL DOSE!
[facility] Medication administered onsite clopidogrel 75 MG Oral Tablet clopidogrel (PLAVIX) tab let 75 mg clopidogrel (PLAVIX) tablet 75 mg 02/21/2021 09:00:00 AM EST 75 mg Oral active 75 mg, Oral, Daily, First dose on Sun02/21/21 at 0900 [facility] Medication administered onsite Aspirin 81 MG Delayed Release Oral Tablet aspirin EC t ablet 81 mg aspirin EC tablet 81 mg 02/21/2021 09:00:00 AM EST 81 mg Oral activ e 81 mg, Oral, Daily, First dose on Sun02/21/21 at 0900 [facility] Medication administered onsite heparin (porcine) injection 5,000 Units [id number] 02/22/20 09:00:00 AM EST 5000 U Subcutaneous active 5,000 Units , Subcutaneous, Every 12 hours (scheduled), First dose on Sun02/21/21 at 0900
If platelet count is less than 100,000 or hematocrit is less than 30, or if there is a 5 point decrease in hematocrit, do not give the dose and call physician/designee.
[facility] Medication administered onsite Insulin Lispro 100 UNT/ML [...] cover POC glucose at 08:00, 12:00, 17:00.
[facility] Medication administered onsite Albuterol 0.833 MG/ML / Ipratropium Brom franck 0.167 MG/ML Inhalant Solution ipratropium-albuterol (DUO-NEB) 0.5-2.5 mg/mL nebulizer solution 3 mL ipratropium-albuterol (DUO-NEB) 0.5-2.5 mg/mL nebulizer solution 3 mL 02/21/2021 07:24:50 AM EST 3 mL Inhalation active 3 mL, Inhalation, Every 6 hours PRN, wheezing, Starting on Sun02/21/21 at 0724 [facility] Medication administered onsite amiodarone HCl 900 mg in dextrose 5 % 500 mL infusion 02/21/2021 07:00:00 AM EST mg/min Intravenous aborted 0.5- 1 mg/min (16.6667-33.3333 mL/hr, rounded to 16.7-33.3 mL/hr), Intravenous, Continuous, Starting on Sun02/21/21 at 0700, Until Sun02/22/21 at 1124, at 16.7-33.3 mL/hr [facility] Medication administered onsite normal saline flush 0.9 % injection 3 mL [id number] 02/21/2021 07:00:00 AM EST 3 mL Intravenous active 3 mL , Intravenous, Every 8 hours (scheduled), First dose on Sun02/21/21 at 0700
flush per protocol, D/C Main IV fluid if appropriate
[facility] Medication administered onsite normal saline flush 0.9 % injection 3 mL [id number] 02/21/2021 07:00:00 AM EST 3 mL Intravenous active 3 mL , Intravenous, Every 8 hours (scheduled), First dose on Sun02/21/21 at 0700
Rapid push positive pressure flushing shall be performed with a 10 cc normal saline syringe to check the PATENCY of a PIV site prior to any infusion therapy initiation unless resistance is met.
[facility] Medication administered onsite Albuterol 0.83 MG/ML Inhalant Solution a lbuterol (PROVENTIL) nebulizer solution 2.5 mg albuterol (PROVENTIL) nebulizer solution 2.5 mg 2020 06:33:07 AM EST 2.5 mg active 2.5 mg, Nebulization, RT every 6 hours as needed, wheezing, Starting on Sun02/21/21 at 0633 [facility] Medication administered onsite ondansetron (ZOFRAN) injection 4 mg [id number] 02/21/2021 05:55:1 2 AM EST 4 mg Intravenous active 4 mg, In travenous, Every 6 hours PRN, nausea, vomiting, Starting on Sun02/21/21 at 0555 [facility] Medication administered onsite 15 mg 01/24/2021 12:00:00 [...] 12:00:00 AM EDT active MEDENT ([facility]) Furosemide 40 MG Oral Tablet Furosemide 12/22/2020 12:00:00 AM EDT ORAL active [facility] ([facility]) clopidogrel 75 MG Oral Tablet Clopidogrel Bisulfate 12/22/2020 1 2:00:00 AM EDT ORAL active MEDENT ( [facility]) Metformin hydrochloride 500 MG Oral Tablet Metformin HCL 12/22/2020 12:00:00 AM EDT ORAL active [facility] ([facility]) 40 mg 12/18/2020 12:00:00 AM EDT tablet 60 TAKE ONE TABLET BY MOUTH TWICE A DAY TAKE ONE TABLET BY MOUTH TWICE A DAY SOLD: 12/18/2020 [facility] 75 mg 12/18/2020 12:00:00 AM EDT tablet 30 TAKE ONE TABLET BY MOUTH EVERY DAY TAKE ONE TABLET BY MOUTH EVERY DAY SOLD: 12/18/2020 [facility] lidocaine 1 % injection [id number] 12/17/2020 05:16:56 PM EDT active As needed, Starting on Sun at 1716, Intra-Procedure [facility] Medication administered onsite Cefazolin 1000 MG Injection ceFAZolin (ANCEF) injectio n ceFAZolin (ANCEF) injection 12/17/2020 05:05:00 PM EDT active As needed, Starting on Sun12/17/20 at 1705, Intra-Procedure [facility] Medication administered onsite Furosemide 40 MG Oral Tablet furosemide (LASIX) tablet 40 mg furosemide (LASIX) tablet 40 mg 12/17/2020 05:00:00 PM EDT 40 mg Oral activ e 40 mg, Oral, LOOPBID, First dose on Sun12/17/20 at 1700 [facility] Medication administered onsite clopidogrel 75 MG Oral Tablet clopidogrel (PLAVIX) 75 MG tablet clopidogrel (PLAVIX) 75 MG tablet 12/17/2020 12:00:00 AM EDT 75 mg Oral active Take 1 tablet (75 mg total) by mouth daily [facility] Furosemide 40 MG Oral Tablet furosemide (LASIX) 40 MG tablet furosemide (LASIX) 40 MG tablet 12/17/2020 12:00:00 AM EDT 40 mg Oral activ e Take 1 tablet (40 mg total) by mouth Twice Daily for Loop Diuretics [facility] iopamidol (ISOVUE-370) 76 % [id number] 12/15/2020 05:24:15 PM EDT active As needed, Starting on Sun12/15/20 at 1724, Intra-Proce dure [facility] Medication administered onsite 1 ML heparin sodium, porcine 1000 UNT/ML Injection hep quentin (porcine) injection heparin (porcine) injection 12/15/2020 05:19:28 PM EDT active As needed, Starting on Sun12/15/20 at 1719, Intra-Procedure [facility] Medication administered onsite 4 ML Verapamil hydrochloride 2.5 MG/ML Injection verap [place] (ISOPTIN) injection verapamil (ISOPTIN) injection 12/15/2020 05:19:13 PM EDT active As needed, Starting on Sun12/15/20 at 1719, Intra-Procedure [facility] Medication administered onsite lidocaine 1 % injection [id number] 12/15/2020 05:17:03 PM EDT active As needed, Starting on Sun 1 at 1717, Intra-Procedure [facility] Medication administered onsite 2 ML Midazolam 1 MG/ML Injection midazolam (VERSED) in jection midazolam (VERSED) injection 12/15/2020 05:16:45 PM EDT active As needed, Starting on Sun12/15/20 at 1716, Intra-Procedure [facility] Medication administered onsite fentaNYL Citrate (PF) (SUBLIMAZE) injection [id number] 12/15/2020 05:16:30 PM EDT active As neede d, Starting on Sun12/15/20 at 1716, Intra-Procedure [facility] Medication administered onsite normal saline flush 0.9 % injection 3 mL [id number] 12/15/2020 03:00:00 PM EDT 3 mL Intravenous aborted 3 mL , Intravenous, PROTOCOL, First dose on Sun12/15/20 at 1500, Pre-op
flush per protocol, D/C Main IV fluid if appropriate
[facility] Medication administered onsite sodium chloride 0.9% (NS) infusion [id number] 12/15/2020 02:00:00 PM EDT 100 mL/h Intravenous aborted at 100 m L/hr, 100 mL/hr, Intravenous, Continuous, Starting on Sun12/15/20 at 1400, Pre-op
Start two hours prior to scheduled start time
[facility] Medication administered onsite Acetaminophen 325 MG Oral Tablet acetaminophen (TYLENO L) 325 MG tablet 650 mg acetaminophen (TYLENOL) 325 MG tablet 650 mg 12/15/2020 12:45:21 PM EDT 650 mg Oral active 650 mg, Or al, Every 4 hours PRN, headaches, and non cardiac pain, Starting on Sun12/15/20 at 1245, Pre-op
"Maximum dose of acetaminophen is 4,000 mg from all sources in 24 hours."
[facility] Medication administered onsite Bisoprolol Fumarate 5 MG Oral Tablet bisoprolol (ZEBET A) tablet 2.5 mg bisoprolol (ZEBETA) tablet 2.5 mg 12/15/2020 02:00:00 AM EDT 2.5 mg Oral completed 2.5 mg, Oral, Once, On Sun 1 at 0200, For 1 dose [facility] Medication administered onsite clopidogrel 75 MG Oral Tablet clopidogrel (PLAVIX) tab let 75 mg clopidogrel (PLAVIX) tablet 75 mg 12/14/2020 09:00:00 AM EDT 75 mg Oral active 75 mg, Oral, Daily, First dose on Sun12/14/20 at 0900 [facility] Medication administered onsite Aspirin 81 MG Chewable Tablet aspirin chewable tablet 81 mg aspirin chewable tablet 81 mg 12/14/2020 09:00:00 AM EDT 81 mg Oral activ e 81 mg, Oral, Daily, First dose on Sun12/14/20 at 0900 [facility] Medication administered onsite acetylcysteine (ACETADOTE) 9,460 mg in dextrose 5 % 1,000 mL infusion 12/14/2020 02:00:00 AM EDT 100 mg/kg Intravenous complet ed 9,460 mg (100 mg/kg 94.6 kg), Intravenous, Administer over 16 Hours, Once, On Sun12/14/20 at 0200, For 1 dose [facility] Medication administered onsite acetylcysteine (ACETADOTE) 4,740 mg in dextrose 5 % 500 mL i nfusion 12/13/2020 10:00:00 PM EDT 50 mg/kg Intravenous completed 4,740 mg (rounded from 4,730 mg = 50 mg/kg 94.6 kg), Intravenous, Administer over 4 Hours, Once, On Sun12/13/20 at 2200, For 1 dose [facility] Medication administered onsite montelukast 10 MG Oral Tablet montelukast (SINGULAIR) tablet 10 mg montelukast (SINGULAIR) tablet 10 mg 12/13/2020 09:00:00 PM EDT 10 mg Oral active 10 mg, Oral, Nightly, First dose on Sun12/13/20 at 2100 [facility] Medication administered onsite acetylcysteine (ACETADOTE) 14,200 mg in dextrose 5 % 200 mL infusion 12/13/2020 09:00:00 PM EDT 150 mg/kg Intravenous complet ed 14,200 mg (rounded from 14,190 mg = 150 mg/kg 94.6 kg), Intravenous, Administer over 1 Hours, Once, On Sun12/13/20 at 2100, For 1 dose [facility] Medication administered onsite Insulin Lispro 100 UNT/ML [...] cover POC glucose at 08:00, 12:00, 17:00.
[facility] Medication administered onsite normal saline flush 0.9 % injection 3 mL [id number] 12/13/2020 03:00:00 PM EDT 3 mL Intravenous aborted 3 mL , Intravenous, PROTOCOL, First dose on Sun12/13/20 at 1500
flush per protocol, D/C Main IV fluid if appropriate
[facility] Medication administered onsite normal saline flush 0.9 % injection 3 mL [id number] 12/13/2020 02:00:00 PM EDT 3 mL Intravenous active 3 mL , Intravenous, Every 8 hours (scheduled), First dose on Sun12/13/20 at 1400
flush per protocol, D/C Main IV fluid if appropriate
[facility] Medication administered onsite Bisoprolol Fumarate 5 MG Oral Tablet bisoprolol (ZEBET A) tablet 5 mg bisoprolol (ZEBETA) tablet 5 mg 12/13/2020 02:00:00 PM EDT 5 mg Oral active 5 mg, Oral, Daily, First dose on Sun12/13/20 at 1400
Hold for manual SBP < 110, HR < 65
[facility] Medication administered onsite perflutren lipid microsphere (DEFINITY) 8.476 mg in 10 mL NS IV drug or medication 12/13/2020 01:24:55 PM EDT mL Intravenous co mpleted 2-10 mL, Intravenous, Once as needed, to be used when clinically necessary, Starting on Sun12/13/20 at 1324, For 1 dose
To be given with civil cadd technician at bedside for exam 1. Activate in VIALMIX agitator for 45 seconds 2. Withdraw 1.3 ml of activated perflutren suspension and dilute in 8.7 ml of 0.9% NS (Total volume = 10 ml) 3. Inject 2 ml slowly over 30 seconds. Repeat in 2 ml aliquots as needed. DO NOT EXCEED 10 ML TOTAL DOSE!
[facility] Medication administered onsite Albuterol 0.83 MG/ML Inhalant Solution a lbuterol (PROVENTIL) nebulizer solution 2.5 mg albuterol (PROVENTIL) nebulizer solution 2.5 mg 2020 01:19:02 PM EDT 2.5 mg active 2.5 mg, Nebulization, RT 4 times daily as needed, wheezing, Starting on Sun12/13/20 at 1319 [facility] Medication administered onsite Nitroglycerin 0.4 MG Sublingual Tablet n itroglycerin (NITROSTAT) SL tablet 0.4 mg nitroglycerin (NITROSTAT) SL tablet 0.4 mg 12/13/2020 01:16:55 P M EDT 0.4 mg Sublingual active 0.4 mg, S ublingual, Every 5 min PRN, chest pain, Starting on Sun12/13/20 at 1316
May administer up to 3 doses per episode.
[facility] Medication administered onsite 500 ML heparin sodium, [...] 1 unit/kg/hr IV58.1 - 87 Therapeutic, No Erqiqv93.1 - 97 Decrease infusion 1 unit/kg/hr IV [...] single port tubing (SmartSite Infusion Set ref [id number]). Medication and tubing is to be discarded if infusion off for 4 hours.
[facility] Medication administered onsite 1 ML heparin sodium, [...] 30 units/kg IV (Maximum bolus: 5,000 units)
[facility] Medication administered onsite BLOOD SUGAR DIAGNOSTIC 12/11/2020 [...] EDT act helio Lancets - eCW1 ([facility]) Blood Glucose Monitor System w/Device Blood Glucose Monitor System w/Device 07/30/2020 12:00:00 AM EDT active Blood Glucose Monitor System w/Device eCW1 ([facility]) Blood Glucose Test - Blood Glucose Test - 07/30/2020 12:00:00 AM EDT active Blood Glucose Test - eCW1 ([facility]) Blood Glucose Monitor System w/Device Blood Glucose Monitor System w/Device 07/30/2020 12:00:00 AM EDT active Blood Glucose Monitor System w/Device eCW1 ([facility]) Blood Glucose Monitor System w/Device Blood Glucose Monitor System w/Device 07/30/2020 12:00:00 AM EDT active Blood Glucose Monitor System w/Device eCW1 ([facility]) Blood Glucose Test - Blood Glucose Test - 07/30/2020 12:00:00 AM EDT active Blood Glucose Test - eCW1 ([facility]) Lancets - Lancets - 07/30/2020 12:00:00 AM EDT act helio Lancets - eCW1 ([facility]) Blood Glucose Monitor System w/Device Blood Glucose Monitor System w/Device 07/30/2020 12:00:00 AM EDT active Blood Glucose Monitor System w/Device eCW1 ([facility]) FreeStyle Lite Test - FreeStyle Lite Test - 07/30/2020 12:00:00 AM EDT active FreeStyle Lite Test - eCW1 ( [facility]) Blood Glucose Test - Blood Glucose Test - 07/30/2020 12:00:00 AM EDT active Blood Glucose Test - eCW1 ([facility]) Lancets - Lancets - 07/30/2020 12:00:00 AM EDT act helio Lancets - eCW1 ([facility]) Blood Glucose Test - Blood Glucose Test - 07/30/2020 12:00:00 AM EDT active Blood Glucose Test - eCW1 ([facility]) Lancets - Lancets - 07/30/2020 12:00:00 AM EDT act helio Lancets - eCW1 ([facility]) Blood Glucose Test - Blood Glucose Test - 07/30/2020 12:00:00 AM EDT active Blood Glucose Test - eCW1 ([facility]) Lancets - Lancets - 07/30/2020 12:00:00 AM EDT act helio Lancets - eCW1 ([facility]) Blood Glucose Test - Blood Glucose Test - 07/30/2020 12:00:00 AM EDT active Blood Glucose Test - eCW1 ([facility]) Blood Glucose Monitor System w/Device Blood Glucose Monitor System w/Device 07/30/2020 12:00:00 AM EDT active Blood Glucose Monitor System w/Device eCW1 ([facility]) FreeStyle Lite Test - FreeStyle Lite Test - 07/30/2020 12:00:00 AM EDT active FreeStyle Lite Test - eCW1 ( [facility]) FreeStyle Lite Test - FreeStyle Lite Test - 07/30/2020 12:00:00 AM EDT active FreeStyle Lite Test - eCW1 ( [facility]) Blood Glucose Monitor System w/Device Blood Glucose Monitor System w/Device 07/30/2020 12:00:00 AM EDT active Blood Glucose Monitor System w/Device eCW1 ([facility]) Lancets - Lancets - 07/30/2020 12:00:00 AM EDT act helio Lancets - eCW1 ([facility]) FreeStyle Lite Test - FreeStyle Lite Test - 07/30/2020 12:00:00 AM EDT active FreeStyle Lite Test - eCW1 ( [facility]) FreeStyle Lite Test - FreeStyle Lite Test - 07/30/2020 12:00:00 AM EDT active FreeStyle Lite Test - eCW1 ( [facility]) Lancets - Lancets - 07/30/2020 12:00:00 AM EDT act helio Lancets - eCW1 ([facility]) FreeStyle Lite Test - FreeStyle Lite Test - 07/30/2020 12:00:00 AM EDT active FreeStyle Lite Test - eCW1 ( [facility]) Lancets - Lancets - 07/30/2020 12:00:00 AM EDT act hleio Lancets - eCW1 ([facility]) FreeStyle Lite Test - FreeStyle Lite Test - 07/30/2020 12:00:00 AM EDT active FreeStyle Lite Test - eCW1 ( [facility]) FreeStyle Lite Test - FreeStyle Lite Test - 07/30/2020 12:00:00 AM EDT active FreeStyle Lite Test - eCW1 ( [facility]) Blood Glucose Test - Blood Glucose Test - 07/30/2020 12:00:00 AM EDT active Blood Glucose Test - eCW1 ([facility]) Blood Glucose Monitor System w/Device Blood Glucose Monitor System w/Device 07/30/2020 12:00:00 AM EDT active Blood Glucose Monitor System w/Device eCW1 ([facility]) Blood Glucose Monitor System w/Device Blood Glucose Monitor System w/Device 07/30/2020 12:00:00 AM EDT active Blood Glucose Monitor System w/Device eCW1 ([facility]) Blood Glucose Test - Blood Glucose Test - 07/30/2020 12:00:00 AM EDT active Blood Glucose Test - eCW1 ([facility]) 24 HR Metformin hydrochloride 500 MG Extended [...] AM EDT ORAL completed MEDENT ([facility]) Bisoprolol Fumarate 5 MG Oral Tablet Bisoprolol Fumarate 12:00:00 AM EDT ORAL active MEDENT ([facility]) 24 HR Metformin hydrochloride 500 [...] RMIN HCl ER 500 MG eCW1 ([facility]) 24 HR Metformin hydrochloride 500 MG Ext ended Release Oral Tablet MetFORMIN HCl ER 500 MG MetFORMIN HCl ER 500 MG 07/28/2020 12:00:00 AM EDT 2.0 {tablet_with_evening_meal} active MetFO RMIN HCl ER 500 MG eCW1 ([facility]) 24 HR Metformin hydrochloride 500 MG Ext ended Release Oral Tablet MetFORMIN HCl ER 500 MG MetFORMIN HCl ER 500 MG 07/28/2020 12:00:00 AM EDT 2.0 {tablet_with_evening_meal} active MetFO RMIN HCl ER 500 MG eCW1 ([facility]) 24 HR Metformin hydrochloride 500 MG Ext ended Release Oral Tablet MetFORMIN HCl ER 500 MG MetFORMIN HCl ER 500 MG 07/28/2020 12:00:00 AM EDT 2.0 {tablet_with_evening_meal} active MetFO RMIN HCl ER 500 MG eCW1 ([facility]) 24 HR Metformin hydrochloride 500 MG Ext ended Release Oral Tablet metFORMIN HCl ER 500 MG metFORMIN HCl ER 500 MG 07/28/2020 12:00:00 AM EDT 2.0 {tablet_with_evening_meal} active metFO RMIN HCl ER 500 MG eCW1 ([facility]) 24 HR Metformin hydrochloride 500 MG Ext ended Release Oral Tablet MetFORMIN HCl ER 500 MG MetFORMIN HCl ER 500 MG 07/28/2020 12:00:00 AM EDT 2.0 {tablet_with_evening_meal} active MetFO RMIN HCl ER 500 MG eCW1 ([facility]) 24 HR Metformin hydrochloride 500 MG Ext ended Release Oral Tablet MetFORMIN HCl ER 500 MG MetFORMIN HCl ER 500 MG 07/28/2020 12:00:00 AM EDT 2.0 {tablet_with_evening_meal} active MetFO RMIN HCl ER 500 MG eCW1 ([facility]) montelukast 10 MG Oral Tablet MONTELUKAST SODIUM [...] ORAL active MEDENT ([facility]) Dorothy Connellyatro 04/26/2020 12:00:00 AM EST ORAL act helio MEDENT ([facility]) Metformin hydrochloride 850 MG Oral [...] tablet} active Steglatro 15 MG eCW1 ([facility]) Steglatro 15 MG Steglatro 15 MG 02/20/2020 12:00:00 AM EST 1.0 { tablet} active Steglatro 15 MG eCW1 ([facility]) montelukast 10 MG Oral Tablet MONTELUKAST SODIUM [...] {tablet} active Singulair 10 MG eCW1 ([facility]) montelukast 10 MG Oral Tablet [Singulair] Singulair 10 MG Si ngulair 10 MG 02/12/2020 12:00:00 AM EST 1.0 {tablet} active Singulair 10 MG eCW1 ([facility]) 15 mg 01/29/2020 12:00:00 AM EDT tablet [...] tablet} active Steglatro 15 MG eCW1 ([facility]) Steglatro 15 MG Steglatro 15 MG 01/28/2020 12:00:00 AM EDT 1.0 { tablet} active Steglatro 15 MG eCW1 ([facility]) Steglatro 15 MG Steglatro 15 MG 01/28/2020 12:00:00 AM EDT 1.0 { tablet} active Steglatro 15 MG eCW1 ([facility]) Steglatro 15 MG Steglatro 15 MG 01/28/2020 12:00:00 AM EDT 1.0 { tablet} active Steglatro 15 MG eCW1 ([facility]) montelukast 10 MG Oral Tablet MONTELUKAST SODIUM [...] {tablet} active Singulair 10 MG eCW1 ([facility]) OneTouch Ultra II Test Strips UNK 01/15/2020 12:00:00 AM EDT active OneTouch Ultra II Test Strips eCW[facility] OneTouch Ultra II Test Strips UNK 01/15/2020 12:00:00 AM EDT active OneTouch Ultra II Test Strips eCW1 ([facility]) OneTouch Ultra II Test Strips UNK 01/15/2020 12:00:00 AM EDT active OneTouch Ultra II Test Strips eCW1 ([facility]) OneTouch Ultra II Test Strips UNK 01/15/2020 12:00:00 AM EDT active OneTouch Ultra II Test Strips eCW1 ([facility]) montelukast 10 MG Oral Tablet [Singulair] Singulair 10 MG Si ngulair 10 MG 01/15/2020 12:00:00 AM EDT 1.0 {tablet} active Singulair 10 MG eCW1 ([facility]) 90 mcg/actuation 01/15/2020 12:00:00 AM EDT HFA aerosol inha ler 18 INHALE 2 PUFFS BY MOUTH EVERY 4 HOURS NEEDED INHALE 2 PUFFS BY MOUTH EVERY 4 HOURS NEEDED SOLD: 09/07/2020 [facility] empagliflozin 10 MG Oral Tablet [Jardiance] Jardiance 10 MG Jardiance 10 MG 01/15/2020 12:00:00 AM EDT 1.0 {tablet} active Jardiance 10 MG eCW1 ([facility]) OneTouch Ultra II Test Strips UNK 01/15/2020 12:00:00 AM EDT active OneTouch Ultra II Test Strips eCW1 ([facility] empagliflozin 10 MG Oral Tablet [Jardiance] Jardiance 10 MG Jardiance 10 MG 01/15/2020 12:00:00 AM EDT 1.0 {tablet} active Jardiance 10 MG eCW1 ([facility]) OneTouch Ultra II Test Strips UNK 01/15/2020 12:00:00 AM EDT active OneTouch Ultra II Test Strips eCW1 ([facility]) BLOOD SUGAR DIAGNOSTIC 01/15/2020 12:00:00 AM EDT [...] BY MOUTH TWICE A DAY SOLD: 03/30/2020 [facility] 10 mg 12/02/2019 12:00:00 AM EDT [...] by mouth 2 (two) times a day [facility] Atenolol 50 MG Oral Tablet atenolol (TENORMIN) 50 MG t ablet atenolol (TENORMIN) 50 MG tablet 50 mg Oral aborted Ron e 50 mg by mouth 2 (two) times a day [facility] Metformin hydrochloride 850 MG Oral Tablet metFORMIN ( GLUCOPHAGE) 850 MG tablet metFORMIN (GLUCOPHAGE) 850 MG tablet 850 mg Oral a borted Take 850 mg by mouth daily with breakfast [facility] PARoxetine (PAXIL) 20 MG tablet [id number] 20 mg Oral aborted Take 20 mg by mouth every morning [facility] Bisoprolol Fumarate 5 MG Oral Tablet bisoprolol (ZEBET A) 5 MG tablet bisoprolol (ZEBETA) 5 MG tablet 5 mg Oral aborted Ron e 5 mg by mouth nightly [facility] Amlodipine 10 MG Oral Tablet amLODIPine (NORVASC) 10 M G tablet amLODIPine (NORVASC) 10 MG tablet 10 mg Oral aborted T charla 10 mg by mouth daily [facility] clopidogrel 75 MG Oral Tablet clopidogrel (PLAVIX) 75 MG tablet clopidogrel (PLAVIX) 75 MG tablet 75 mg Oral aborted Ta ke 75 mg by mouth daily [facility] Ibuprofen 200 MG Oral Tablet ibuprofen (ADVIL,MOTRIN) 200 MG tablet ibuprofen (ADVIL,MOTRIN) 200 MG tablet 200 mg Oral aborted Take 200 mg by mouth every 6 (six) hours as needed for pain [facility] Chlorthalidone 25 MG Oral Tablet chlorthalidone (HYGRO TEN) 25 MG tablet chlorthalidone (HYGROTEN) 25 MG tablet 12.5 mg Oral aborted Take 12.5 mg by mouth daily [facility] Insurance Providers Payer name Policy type / Coverage type Policy ID Covered democrat ID Covered democrat's relationship to alvarez Policy Alvarez Plan Information [facility] Commercial [id number] Self [id number] [facility] Commercial [id number] Self [id number] [facility] Commercial [id number] Self [facility] MEDICAID [id number] Alexandre [id number] [facility] MEDICAID [id number] ANS-Medicaid [id number] ANSI-Medicaid [id number] Formerly [facility] Maintenance Organization (O) [id number] Self [id number] [facility] Health Maintenance Organization (HMO) [id number] Self [facility](MCAID) O [id number] S [id number] SELF PAY UNAVAILABLE UNAVAILA BLE [employer] AMERICHOICE XIX O [id number] 18 [id number] BLUE CROSS BLUE SHIELD-CLINIC [id number] [facility] [place] [place] [id number] SP [id number] MEDICAID - CLINIC [id number] FORMERLY [facility] COMMUNITY PLAN [facility] [place] [place] [id number] SP [id number] [facility](MCAID) O [id number] S [id number] ANSI-Medicaid [id number] [facility] [id number] Self [id number] Problems, Conditions, and Diagnoses Code Display Name Description Problem Type Effective Dates Data Source(s) I47.2 Ventricular tachycardia Ventricular tachycardia Diagno sis 02/21/2021 05:48:00 AM EST [facility] I25.5 Ischemic cardiomyopathy Ischemic cardiomyopathy Diagno sis 12/13/2020 12:38:00 PM EDT [facility] I24.9 Acute ischemic heart disease, unspecifie d Acute ischemic heart disease, unspecifie Diagnosis 12/13/2020 12:38:00 PM EDT [facility] N17.9 Acute kidney failure, unspecified Acute kidney f ailure, unspecified Diagnosis 12/13/2020 12:38:00 PM EDT [facility] R77.8 Other specified abnormalities of plasma proteins Other specified abnormalities of plasma Diagnosis 12/13/2020 12:38:00 PM EDT [facility] I21.4 Non-ST elevation (NSTEMI) myocardial inf arction Non-ST elevation (NSTEMI) myocardial inf Diagnosis 12/13/2020 12:38:00 PM EDT [facility] I10 Hypertension Hypertension [id number] 02/21/2021 12:00:00 A M [facility] I25.10 Coronary artery disease Coronary artery disease [id number] 02/21/2021 12:00:00 AM [facility] Z45.02 Defibrillator discharge Defibrillator discharge [id number] 02/21/2021 12:00:00 AM [facility] I47.2 Paroxysmal ventricular tachycardia Paroxysmal ve ntricular tachycardia Problem 12/23/2020 12:00:00 AM EDT MEDENT ([facility]) Z95.810 Automatic implantable cardiac defibrilla tor in situ Automatic implantable cardiac defibrillator in situ Problem 12/23/2020 12:00:0 0 AM EDT MEDENT ([facility]) I25.5 Ischemic cardiomyopathy Ischemic cardiomyopathy [id number] 12/15/2020 12:00:00 AM EDT [facility] I24.9 Acute coronary syndrome Acute coronary syndrome [id number] 12/15/2020 12:00:00 AM EDT [facility] I45.10 RBBB RBBB [id number] 12/13/2020 12:00:00 AM ED T [facility] R79.89 Elevated LFTs Elevated LFTs [id number] 12/13/2020 12:00:00 AM EDT [facility] N17.9 JOHN (acute kidney injury) JOHN (acute kidney injury) [id number] 12/13/2020 12:00:00 AM EDT [facility] I25.110 Coronary artery disease invo lving [place] coronary artery of [place] heart with unstable angina pectoris Coronary artery disease involving [place] coronary artery of [place] heart with unstable angina pectoris [id number] 12/13/2020 12:00:00 AM EDT [facility] R77.8 Elevated troponin Elevated troponin [id number] 12/13/2020 12:00:00 AM EDT [facility] Z72.0 Tobacco use Tobacco use [id number] 12/13/2020 12:00:00 AM EDT [facility] I10 HTN (hypertension) HTN (hypertension) [id number] 12:00:00 AM EDT [facility] E11.9 DM2 (diabetes mellitus, type 2) DM2 (diabetes mellitus , type 2) [id number] 12/13/2020 12:00:00 AM EDT [facility] J44.9 COPD (chronic obstructive pulmonary dise ase) COPD (chronic obstructive pulmonary disease) [id number] 12/13/2020 12:00:00 AM EDT [facility] I47.2 Ventricular tachycardia Ventricular tachycardia [id number] 12/13/2020 12:00:00 AM EDT [facility] E78.00 [id number] Pure hypercholesterolemia Problem 07/23/2020 12:00:00 AM EDT eCW1 ([facility]) I25.10 [id number] Coronary artery dise ase involving [place] coronary artery of [place] heart without angina pectoris Problem 01/15/2020 12:00:00 AM EDT eCW1 ([facility]) J30.89 [id number] Non-seasonal allergic rhinitis, unspecifi ed trigger Problem 01/15/2020 12:00:00 AM EDT eCW1 ([facility]) Surgeries/Procedures Procedure Description Date Indications Data Source(s) GLUC BLD GLUC MNTR DEV CLEARED FDA SPEC HOME USE <td>P OCT GLUCOSE</td><td>Routine</td><td>02/22/2021 7:53 AM EST</td><td></td><td> </td> 02/22/2021 07:53:00 AM EST [facility] BLOOD COUNT COMPLETE AUTOMATED <td>CBC</td><td>Timed</ td><td>02/22/2021 4:20 AM EST</td><td></td><td> </td> 02/22/2021 04:20:00 AM EST [facility] BASIC METABOLIC PANEL CALCIUM TOTAL <td>BASIC METABOLI C PANEL</td><td>Timed</td><td>02/22/2021 4:20 AM EST</td><td></td><td> </td> 02/22/2021 04:20:00 AM EST [facility] ECG ROUTINE ECG W/LEAST 12 LDS TRCG ONLY W/O I&R <td>E CG 12- LEAD</td><td>Routine</td><td>02/22/2021 3:44 AM EST</td><td></td><td></td> 02/22/2021 03:44:39 AM EST [facility] GLUC BLD GLUC MNTR DEV CLEARED FDA SPEC HOME USE <td>P OCT GLUCOSE</td><td>Routine</td><td>02/21/2021 4:02 PM EST</td><td></td><td> </td> 02/21/2021 04:02:00 PM EST [facility] GLUC BLD GLUC MNTR DEV CLEARED FDA SPEC HOME USE <td>P OCT GLUCOSE</td><td>Routine</td><td>02/21/2021 1:18 PM EST</td><td></td><td> </td> 02/21/2021 01:18:00 PM EST [facility] Transthoracic echocardiography with cont rast, or without contrast followed by with contrast, real-time with image documentation (2d), includes m-mode recording, when performed, follow-up or limited study <td>ECHOCARDIOGRAM TRANSTHORACIC LIMITED W/ CONTRAST</td><td>Pending Discharge</td><td>02/21/2021 12:25 PM EST</td><td></td><td> </td> 02/21/2021 12:25:17 PM EST [facility] GLUC BLD GLUC MNTR DEV CLEARED FDA SPEC HOME USE <td>P OCT GLUCOSE</td><td>Routine</td><td>02/21/2021 9:17 AM EST</td><td></td><td> </td> 02/21/2021 09:17:00 AM EST [facility] XR CHEST PORTABLE <td>XR CHEST PORTABLE</td><t d>Routine</td><td>02/21/2021 8:32 AM EST</td><td></td><td> </td> 02/21/2021 08:32:15 AM EST [facility] NT PRO BNP <td>NT PRO BNP</td><td>Routi ne</td><td>02/21/2021 6:41 AM EST</td><td></td><td> </td> 02/21/2021 06:41:00 AM EST [facility] TROPONIN QUANTITATIVE <td>TROPONIN I</td><td>Timed </td><td>02/21/2021 6:41 AM EST</td><td></td><td> </td> 02/21/2021 06:41:00 AM EST [facility] CULTURE BACTERIAL BLOOD AEROBIC W/ID ISOLATES <td>BLOO D CULTURE</td><td>Routine</td><td>02/21/2021 6:41 AM EST</td><td></td><td></td> 02/21/2021 06:41:00 AM EST [facility] CULTURE BACTERIAL BLOOD AEROBIC W/ID ISOLATES <td>BLOO D CULTURE</td><td>Routine</td><td>02/21/2021 6:41 AM EST</td><td></td><td></td> 02/21/2021 06:41:00 AM EST [facility] THROMBOPLASTIN TIME PARTIAL PLASMA/WHOLE BLOOD <td>APTT</td><td>Routine</td><td>02/21/2021 6:41 AM EST</td><td></td><td> </td> 02/21/2021 06:41:00 AM EST [facility] PROTHROMBIN TIME <td>PROTIME-INR</td><td>Rout ine</td><td>02/21/2021 6:41 AM EST</td><td></td><td> </td> 02/21/2021 06:41:00 AM EST [facility] BLOOD COUNT COMPLETE AUTO&AUTO DIFRNTL WBC COUNT <td>C BC AND DIFFERENTIAL</td><td>Routine</td><td>02/21/2021 6:41 AM EST</td><td></td><td> </td> 02/21/2021 06:41:00 AM EST [facility] BLOOD TYPING ABO <td>TYPE AND SCREEN</td><td> Routine</td><td>02/21/2021 6:41 AM EST</td><td></td><td> </td> 02/21/2021 06:41:00 AM EST [facility] THYROID STIMULATING HORMONE TSH <td>TSH</td><td>Routin e</td><td>02/21/2021 6:41 AM EST</td><td></td><td> </td> 02/21/2021 06:41:00 AM EST [facility] MAGNESIUM <td>MAGNESIUM</td><td>Routin e</td><td>02/21/2021 6:41 AM EST</td><td></td><td> </td> 02/21/2021 06:41:00 AM EST [facility] COMPREHENSIVE METABOLIC PANEL <td>COMPREHENSIVE METABO LIC PANEL</td><td>STAT</td><td>02/21/2021 6:41 AM EST</td><td></td><td> </td> 02/21/2021 06:41:00 AM EST [facility] URINE CULTURE HOLD SPECIMEN <td>URINE CULTURE HOLD SPECIMEN</td><td>Routine</td><td>02/21/2021 6:08 AM EST</td><td></td><td> </td> 02/21/2021 06:08:00 AM EST [facility] URNLS DIP STICK/TABLET RGNT AUTO W/O MICROSCOPY <td>UR INALYSIS W/O MICRO</td><td>Routine</td><td>02/21/2021 6:08 AM EST</td><td></td><td> </td> 02/21/2021 06:08:00 AM EST [facility] ECG ROUTINE ECG W/LEAST 12 LDS TRCG ONLY W/O I&R <td>E CG 12- LEAD</td><td>Routine</td><td>02/21/2021 5:57 AM EST</td><td></td><td></td> 02/21/2021 05:57:02 AM EST [facility] Imm: Flublok Quadrivalent 18 years & older 0.5mL IM Influenz a 01/19/2021 12:00:00 AM EDT eCW1 ([facility]) INTERROGATION EVAL F2F 1/DUAL/CROP SCOUT LEADS CVDFB 01/07/20 12:00:00 AM EDT MEDENT ([facility]) ECG ROUTINE ECG W/LEAST 12 LDS W/I&R 12/23/2020 12:00: 00 AM EDT MEDENT ([facility]) OFFICE OUTPATIENT VISIT 25 MINUTES 12/23/2020 12:00:00 AM EDT MEDENT ([facility]) XR CHEST PORTABLE <td>XR CHEST PORTABLE</td><t d>STAT</td><td>12/17/2020 6:56 PM EDT</td><td></td><td> </td> 12/17/2020 06:56:35 PM EDT [facility] GLUC BLD GLUC MNTR DEV CLEARED FDA SPEC HOME USE <td>P OCT GLUCOSE</td><td>Routine</td><td>12/17/2020 6:51 PM EDT</td><td></td><td> </td> 12/17/2020 06:51:00 PM EDT [facility] EP STUDY <td>EP STUDY</td><td>Routine </td><td>12/17/2020 5:32 PM EDT</td><td> Sustained VT (ventricular tachycardia)</td><td> </td> 12/17/2020 05:32:55 PM EDT Sustained VT (ventricular tachycardia) [facility] Sustained VT (ventricular tachycardia) GLUC BLD GLUC MNTR DEV CLEARED FDA SPEC HOME USE <td>P OCT GLUCOSE</td><td>Routine</td><td>12/17/2020 11:47 AM EDT</td><td></td><td> </td> 12/17/2020 11:47:00 AM EDT [facility] GLUC BLD GLUC MNTR DEV CLEARED FDA SPEC HOME USE <td>P OCT GLUCOSE</td><td>Routine</td><td>12/17/2020 9:12 AM EDT</td><td></td><td> </td> 12/17/2020 09:12:00 AM EDT [facility] THROMBOPLASTIN TIME PARTIAL PLASMA/WHOLE BLOOD <td>APTT</td><td>Routine</td><td>12/17/2020 8:00 AM EDT</td><td></td><td> </td> 12/17/2020 08:00:00 AM EDT [facility] Hemodialysis (procedure) <td>HEMODIALYSIS INPATIENT TX</td><td>Routine</td><td>12/17/2020 12:07 AM EDT</td><td></td><td></td> 12/17/2020 12:07:30 AM EDT [facility] THROMBOPLASTIN TIME PARTIAL PLASMA/WHOLE BLOOD <td>APTT</td><td>Routine</td><td>12/17/2020 12:07 AM EDT</td><td></td><td> </td> 12/17/2020 12:07:00 AM EDT [facility] GLUC BLD GLUC MNTR DEV CLEARED FDA SPEC HOME USE <td>P OCT GLUCOSE</td><td>Routine</td><td>12/16/2020 5:55 PM EDT</td><td></td><td> </td> 12/16/2020 05:55:00 PM EDT [facility] THROMBOPLASTIN TIME PARTIAL PLASMA/WHOLE BLOOD <td>APTT</td><td>Routine</td><td>12/16/2020 4:38 PM EDT</td><td></td><td> </td> 12/16/2020 04:38:00 PM EDT [facility] GLUC BLD GLUC MNTR DEV CLEARED FDA SPEC HOME USE <td>P OCT GLUCOSE</td><td>Routine</td><td>12/16/2020 12:02 PM EDT</td><td></td><td> </td> 12/16/2020 12:02:00 PM EDT [facility] KU2 PANEL <td>KU2 PANEL</td><td>STAT</ td><td>12/16/2020 7:44 AM EDT</td><td></td><td> </td> 12/16/2020 07:44:00 AM EDT [facility] BLOOD COUNT COMPLETE AUTOMATED <td>CBC</td><td>STAT</t d><td>12/16/2020 7:44 AM EDT</td><td></td><td> </td> 12/16/2020 07:44:00 AM EDT [facility] PHOSPHORUS INORGANIC <td>PHOSPHORUS</td><td>STAT< /td><td>12/16/2020 7:44 AM EDT</td><td></td><td> </td> 12/16/2020 07:44:00 AM EDT [facility] THROMBOPLASTIN TIME PARTIAL PLASMA/WHOLE BLOOD <td>APTT</td><td>STAT</td><td>12/16/2020 6:28 AM EDT</td><td></td><td> </td> 12/16/2020 06:28:00 AM EDT [facility] THROMBOPLASTIN TIME PARTIAL PLASMA/WHOLE BLOOD <td>APTT</td><td>STAT</td><td>12/15/2020 7:43 PM EDT</td><td></td><td> </td> 12/15/2020 07:43:00 PM EDT [facility] GLUC BLD GLUC MNTR DEV CLEARED FDA SPEC HOME USE <td>P OCT GLUCOSE</td><td>Routine</td><td>12/15/2020 6:25 PM EDT</td><td></td><td> </td> 12/15/2020 06:25:00 PM EDT [facility] CARDIAC CATHETERIZATION <td>CARDIAC CATHETERIZATION</td><td>Routine</td><td>12/15/2020 5:25 PM EDT</td><td> Acute coronary syndrome Sustained VT (ventricular tachycardia) Ischemic cardiomyopathy</td><td> </td> 12/15/2020 05:25:36 PM EDT Ischemic cardiomyopathySustained VT (lainey tricular tachycardia)Acute coronary syndrome [facility] Ischemic cardiomyopathy Sustained VT (ventricular tachycardia) Acute coronary syndrome GLUC BLD GLUC MNTR DEV CLEARED FDA SPEC HOME USE <td>P OCT GLUCOSE</td><td>Routine</td><td>12/15/2020 1:35 PM EDT</td><td></td><td> </td> 12/15/2020 01:35:00 PM EDT [facility] GLUC BLD GLUC MNTR DEV CLEARED FDA SPEC HOME USE <td>P OCT GLUCOSE</td><td>Routine</td><td>12/15/2020 8:47 AM EDT</td><td></td><td> </td> 12/15/2020 08:47:00 AM EDT [facility] KU2 PANEL <td>KU2 PANEL</td><td>STAT</ td><td>12/15/2020 8:15 AM EDT</td><td></td><td> </td> 12/15/2020 08:15:00 AM EDT [facility] BLOOD COUNT COMPLETE AUTOMATED <td>CBC</td><td>STAT</t d><td>12/15/2020 8:15 AM EDT</td><td></td><td> </td> 12/15/2020 08:15:00 AM EDT [facility] PHOSPHORUS INORGANIC <td>PHOSPHORUS</td><td>STAT< /td><td>12/15/2020 8:15 AM EDT</td><td></td><td> </td> 12/15/2020 08:15:00 AM EDT [facility] Hemodialysis (procedure) <td>HEMODIALYSIS INPATIENT TX</td><td>Routine</td><td>12/15/2020 7:08 AM EDT</td><td></td><td></td> 12/15/2020 07:08:46 AM EDT [facility] Hemodialysis (procedure) <td>HEMODIALYSIS INPATIENT TX</td><td>Routine</td><td>12/15/2020 7:08 AM EDT</td><td></td><td></td> 12/15/2020 07:08:46 AM EDT [facility] Hemodialysis (procedure) <td>HEMODIALYSIS INPATIENT TX</td><td>Routine</td><td>12/15/2020 7:08 AM EDT</td><td></td><td></td> 12/15/2020 07:08:46 AM EDT [facility] BILIRUBIN UNCONJ (INDIRECT) <td>BILIRUBIN UNCONJ (INDIRECT)</td><td>STAT</td><td>12/15/2020 5:01 AM EDT</td><td></td><td> </td> 12/15/2020 05:01:00 AM EDT [facility] THROMBOPLASTIN TIME PARTIAL PLASMA/WHOLE BLOOD <td>APTT</td><td>STAT</td><td>12/15/2020 5:01 AM EDT</td><td></td><td> </td> 12/15/2020 05:01:00 AM EDT [facility] BLOOD COUNT COMPLETE AUTOMATED <td>CBC</td><td>STAT</t d><td>12/15/2020 5:01 AM EDT</td><td></td><td> </td> 12/15/2020 05:01:00 AM EDT [facility] MAGNESIUM <td>MAGNESIUM</td><td>STAT</ td><td>12/15/2020 5:01 AM EDT</td><td></td><td> </td> 12/15/2020 05:01:00 AM EDT [facility] BILIRUBIN DIRECT <td>BILIRUBIN, DIRECT</td><t d>STAT</td><td>12/15/2020 5:01 AM EDT</td><td></td><td> </td> 12/15/2020 05:01:00 AM EDT [facility] COMPREHENSIVE METABOLIC PANEL <td>COMPREHENSIVE METABO LIC PANEL</td><td>STAT</td><td>12/15/2020 5:01 AM EDT</td><td></td><td> </td> 12/15/2020 05:01:00 AM EDT [facility] THROMBOPLASTIN TIME PARTIAL PLASMA/WHOLE BLOOD <td>APTT</td><td>STAT</td><td>12/14/2020 6:10 PM EDT</td><td></td><td> </td> 12/14/2020 06:10:00 PM EDT [facility] GLUC BLD GLUC MNTR DEV CLEARED FDA SPEC HOME USE <td>P OCT GLUCOSE</td><td>Routine</td><td>12/14/2020 4:52 PM EDT</td><td></td><td> </td> 12/14/2020 04:52:00 PM EDT [facility] GLUC BLD GLUC MNTR DEV CLEARED FDA SPEC HOME USE <td>P OCT GLUCOSE</td><td>Routine</td><td>12/14/2020 12:30 PM EDT</td><td></td><td> </td> 12/14/2020 12:30:00 PM EDT [facility] GLUC BLD GLUC MNTR DEV CLEARED FDA SPEC HOME USE <td>P OCT GLUCOSE</td><td>Routine</td><td>12/14/2020 9:16 AM EDT</td><td></td><td> </td> 12/14/2020 09:16:00 AM EDT [facility] Transthoracic echocardiography with cont rast, or without contrast followed by with contrast, real-time with image documentation (2d), includes m-mode recording, when performed, complete, with spectral doppler echocardiography, and with color flow doppler echocardiography <td>ECHOCARDIOGRAM TRANSTHORACIC COMPLETE W/ CONTRAST</td><td>Routine</td><td>12/14/2020 8:03 AM EDT</td><td></td><td> </td> 12/14/2020 08:03:02 AM EDT [facility] TROPONIN QUANTITATIVE <td>TROPONIN I</td><td>Timed </td><td>12/14/2020 5:47 AM EDT</td><td></td><td> </td> 12/14/2020 05:47:00 AM EDT [facility] THROMBOPLASTIN TIME PARTIAL PLASMA/WHOLE BLOOD <td>APTT</td><td>Routine</td><td>12/14/2020 5:47 AM EDT</td><td></td><td> </td> 12/14/2020 05:47:00 AM EDT [facility] PROTHROMBIN TIME <td>PROTIME-INR</td><td>Add- On</td><td>12/14/2020 5:47 AM EDT</td><td></td><td> </td> 12/14/2020 05:47:00 AM EDT [facility] BLOOD COUNT COMPLETE AUTOMATED <td>CBC</td><td>Routine </td><td>12/14/2020 5:47 AM EDT</td><td></td><td> </td> 12/14/2020 05:47:00 AM EDT [facility] COMPREHENSIVE METABOLIC PANEL <td>COMPREHENSIVE METABO LIC PANEL</td><td>Timed</td><td>12/14/2020 5:47 AM EDT</td><td></td><td> </td> 12/14/2020 05:47:00 AM EDT [facility] TROPONIN QUANTITATIVE <td>TROPONIN I</td><td>STAT< /td><td>12/14/2020 2:05 AM EDT</td><td></td><td> </td> 12/14/2020 02:05:00 AM EDT [facility] MAGNESIUM <td>MAGNESIUM</td><td>STAT</ td><td>12/14/2020 2:05 AM EDT</td><td></td><td> </td> 12/14/2020 02:05:00 AM EDT [facility] COMPREHENSIVE METABOLIC PANEL <td>COMPREHENSIVE METABO LIC PANEL</td><td>STAT</td><td>12/14/2020 2:05 AM EDT</td><td></td><td> </td> 12/14/2020 02:05:00 AM EDT [facility] THROMBOPLASTIN TIME PARTIAL PLASMA/WHOLE BLOOD <td>APTT</td><td>Routine</td><td>12/14/2020 12:12 AM EDT</td><td></td><td> </td> 12/14/2020 12:12:00 AM EDT [facility] ECG ROUTINE ECG W/LEAST 12 LDS TRCG ONLY W/O I&R <td>E CG 12- LEAD</td><td>STAT</td><td>12/13/2020 10:13 PM EDT</td><td></td><td></td> 12/13/2020 10:13:23 PM EDT [facility] URINE CULTURE HOLD SPECIMEN <td>URINE CULTURE HOLD SPECIMEN</td><td>Routine</td><td>12/13/2020 8:08 PM EDT</td><td></td><td> </td> 12/13/2020 08:08:00 PM EDT [facility] URINE MICROSCOPIC <td>URINE MICROSCOPIC</td><t d>Add-On</td><td>12/13/2020 8:08 PM EDT</td><td></td><td> </td> 12/13/2020 08:08:00 PM EDT [facility] PROTEIN TOTAL XCPT REFRACTOMETRY URINE <td>PROTEIN / C REATININE RATIO, URINE</td><td>Routine</td><td>12/13/2020 8:08 PM EDT</td><td></td><td> </td> 12/13/2020 08:08:00 PM EDT [facility] PROTEIN ELECTROP FXJ&STEFFEN OTH FLUS CONCENTRATION <td>P ROTEIN ELECTROPHORESIS, RANDOM URINE</td><td>Routine</td><td>12/13/2020 8:08 PM EDT</td><td></td><td></td> 12/13/2020 08:08:00 PM EDT [facility] URNLS DIP STICK/TABLET RGNT AUTO W/O MICROSCOPY <td>UR INALYSIS W/O MICRO</td><td>Routine</td><td>12/13/2020 8:08 PM EDT</td><td></td><td> </td> 12/13/2020 08:08:00 PM EDT [facility] COMPLEMENT TOTAL HEMOLYTIC <td>COMPLEMENT ACT TOTAL</td><td>Routine</td><td>12/13/2020 7:10 PM EDT</td><td></td><td> </td> 12/13/2020 07:10:00 PM EDT [facility] FLUORESCENT NONNFCT AGT ANTB SCREEN EA ANTIBODY <td>AN CA VASCULITIS PROF</td><td>Routine</td><td>12/13/2020 7:10 PM EDT</td><td></td><td> </td> 12/13/2020 07:10:00 PM EDT [facility] HEPATITIS C ANTIBODY CONFIRMATORY TEST <td>HEPATITIS C ANTIBODY</td><td>Routine</td><td>12/13/2020 7:10 PM EDT</td><td></td><td> </td> 12/13/2020 07:10:00 PM EDT [facility] ANTINUCLEAR ANTIBODIES BÁRBARA TITER <td>BÁRBARA WITH REFLEX</td><td>Routine</td><td>12/13/2020 7:10 PM EDT</td><td></td><td> </td> 12/13/2020 07:10:00 PM EDT [facility] TROPONIN QUANTITATIVE <td>TROPONIN I</td><td>Add-O n</td><td>12/13/2020 7:10 PM EDT</td><td></td><td> </td> 12/13/2020 07:10:00 PM EDT [facility] NEPHELOMETRY EACH ANALYTE YUKO <td>IMMUNOGLOBULIN FREE LT CHAINS BLOOD</td><td>Routine</td><td>12/13/2020 7:10 PM EDT</td><td></td><td> </td> 12/13/2020 07:10:00 PM EDT [facility] IMMUNOASSAY ANALYTE QUANTITATIVE NOS <td>GLOMERULAR BA SEMENT MEMBRANE IGG</td><td>Routine</td><td>12/13/2020 7:10 PM EDT</td><td></td><td> </td> 12/13/2020 07:10:00 PM EDT [facility] CERULOPLASMIN <td>CERULOPLASMIN</td><td>Ad d-On</td><td>12/13/2020 7:10 PM EDT</td><td></td><td> </td> 12/13/2020 07:10:00 PM EDT [facility] RHEUMATOID FACTOR QUANTITATIVE <td>RHEUMATOID FACTOR</td><td>Routine</td><td>12/13/2020 7:10 PM EDT</td><td></td><td> </td> 12/13/2020 07:10:00 PM EDT [facility] COMPLEMENT ANTIGEN EACH COMPONENT <td>C3 COMPLEMENT</td><td>Routine</td><td>12/13/2020 7:10 PM EDT</td><td></td><td> </td> 12/13/2020 07:10:00 PM EDT [facility] COMPLEMENT ANTIGEN EACH COMPONENT <td>C4 COMPLEMENT</td><td>Routine</td><td>12/13/2020 7:10 PM EDT</td><td></td><td> </td> 12/13/2020 07:10:00 PM EDT [facility] PROTEIN ELECTROPHORETIC FRACTJ&QUANTJ SERUM <td>PROTEI N ELECTROPHORESIS, SERUM</td><td>Routine</td><td>12/13/2020 7:10 PM EDT</td><td></td><td></td> 12/13/2020 07:10:00 PM EDT [facility] ACETAMINOPHEN <td>ACETAMINOPHEN LEVEL</td> <td>Add-On</td><td>12/13/2020 7:10 PM EDT</td><td></td><td> </td> 12/13/2020 07:10:00 PM EDT [facility] CENTRAL LINE INSERTION <td>CENTRAL LINE INSERTION</td><td>Routine</td><td>12/13/2020 7:02 PM EDT</td><td> JOHN (acute kidney injury)</td><td> </td> 12/13/2020 07:02:07 PM EDT JOHN (acute kidney injury) [facility] JOHN (acute kidney injury) XR CHEST PORTABLE <td>XR CHEST PORTABLE</td><t d>STAT</td><td>12/13/2020 6:23 PM EDT</td><td></td><td> </td> 12/13/2020 06:23:48 PM EDT [facility] Hemodialysis (procedure) <td>HEMODIALYSIS INPATIENT TX</td><td>Routine</td><td>12/13/2020 5:08 PM EDT</td><td></td><td></td> 12/13/2020 05:08:39 PM EDT [facility] POC VENOUS BLOOD GAS W LYTES <td>POC VENOUS BLOOD GAS W LYTES</td><td>Routine</td><td>12/13/2020 5:04 PM EDT</td><td></td><td> </td> 12/13/2020 05:04:00 PM EDT [facility] GLUC BLD GLUC MNTR DEV CLEARED FDA SPEC HOME USE <td>P OCT GLUCOSE</td><td>Routine</td><td>12/13/2020 5:04 PM EDT</td><td></td><td> </td> 12/13/2020 05:04:00 PM EDT [facility] DUP-SCAN ARTL FILI ABDL/PEL/SCROT&/RPR ORGN LMTD <td>US ABDOMINAL VEINS LIMITED</td><td>STAT</td><td>12/13/2020 4:55 PM EDT</td><td></td><td> </td> 12/13/2020 04:55:55 PM EDT [facility] US RETROPERITONEAL REAL TIME W/IMAGE COMPLETE <td>US R ENAL KIDNEY BILATERAL</td><td>Routine</td><td>12/13/2020 4:01 PM EDT</td><td></td><td> </td> 12/13/2020 04:01:28 PM EDT [facility] ULTRASOUND ABDOMINAL REAL TIME W/IMAGE LIMITED <td>US RIGHT UPPER QUADRANT</td><td>Routine</td><td>12/13/2020 4:01 PM EDT</td><td></td><td> </td> 12/13/2020 04:01:10 PM EDT [facility] NT PRO BNP <td>NT PRO BNP</td><td>Routi ne</td><td>12/13/2020 3:19 PM EDT</td><td></td><td> </td> 12/13/2020 03:19:00 PM EDT [facility] TROPONIN QUANTITATIVE <td>TROPONIN I</td><td>Routi ne</td><td>12/13/2020 3:19 PM EDT</td><td></td><td> </td> 12/13/2020 03:19:00 PM EDT [facility] ACUTE HEPATITIS PANEL <td>HEPATITIS PANEL, ACUTE</td><td>Routine</td><td>12/13/2020 3:19 PM EDT</td><td></td><td> </td> 12/13/2020 03:19:00 PM EDT [facility] HEPATITIS B CORE ANTIBODY HBCAB TOTAL <td>HEPATITIS B CORE ANTIBODY, TOTAL</td><td>Routine</td><td>12/13/2020 3:19 PM EDT</td><td></td><td> </td> 12/13/2020 03:19:00 PM EDT [facility] HEPATITIS B SURF ANTIBODY HBSAB <td>HEPATITIS B SURFAC E ANTIBODY</td><td>Routine</td><td>12/13/2020 3:19 PM EDT</td><td></td><td> </td> 12/13/2020 03:19:00 PM EDT [facility] THROMBOPLASTIN TIME PARTIAL PLASMA/WHOLE BLOOD <td>APTT</td><td>Routine</td><td>12/13/2020 3:19 PM EDT</td><td></td><td> </td> 12/13/2020 03:19:00 PM EDT [facility] PROTHROMBIN TIME <td>PROTIME-INR</td><td>Rout ine</td><td>12/13/2020 3:19 PM EDT</td><td></td><td> </td> 12/13/2020 03:19:00 PM EDT [facility] BLOOD COUNT COMPLETE AUTO&AUTO DIFRNTL WBC COUNT <td>C BC AND DIFFERENTIAL</td><td>Routine</td><td>12/13/2020 3:19 PM EDT</td><td></td><td> </td> 12/13/2020 03:19:00 PM EDT [facility] THYROID STIMULATING HORMONE TSH <td>TSH</td><td>Routin e</td><td>12/13/2020 3:19 PM EDT</td><td></td><td> </td> 12/13/2020 03:19:00 PM EDT [facility] PHOSPHORUS INORGANIC <td>PHOSPHORUS</td><td>Routi ne</td><td>12/13/2020 3:19 PM EDT</td><td></td><td> </td> 12/13/2020 03:19:00 PM EDT [facility] MAGNESIUM <td>MAGNESIUM</td><td>Routin e</td><td>12/13/2020 3:19 PM EDT</td><td></td><td> </td> 12/13/2020 03:19:00 PM EDT [facility] HEMOGLOBIN GLYCOSYLATED A1C <td>HEMOGLOBIN A1C</td><td>Routine</td><td>12/13/2020 3:19 PM EDT</td><td></td><td> </td> 12/13/2020 03:19:00 PM EDT [facility] ALCOHOL ANY SPECIMEN EXCEPT BREATH <td>ETHANOL</td><td>Routine</td><td>12/13/2020 3:19 PM EDT</td><td></td><td> </td> 12/13/2020 03:19:00 PM EDT [facility] LIPID PANEL <td>LIPID PANEL</td><td>Rout ine</td><td>12/13/2020 3:19 PM EDT</td><td></td><td> </td> 12/13/2020 03:19:00 PM EDT [facility] COMPREHENSIVE METABOLIC PANEL <td>COMPREHENSIVE METABO LIC PANEL</td><td>Routine</td><td>12/13/2020 3:19 PM EDT</td><td></td><td> </td> 12/13/2020 03:19:00 PM EDT [facility] URINE MICROSCOPIC <td>URINE MICROSCOPIC</td><t d>Add-On</td><td>12/13/2020 2:15 PM EDT</td><td></td><td> </td> 12/13/2020 02:15:00 PM EDT [facility] PROTEIN TOTAL XCPT REFRACTOMETRY URINE <td>PROTEIN / C REATININE RATIO, URINE</td><td>Routine</td><td>12/13/2020 2:15 PM EDT</td><td></td><td> </td> 12/13/2020 02:15:00 PM EDT [facility] CHLORIDE URINE <td>URINE ELECTROLYTES</td>< td>Routine</td><td>12/13/2020 2:15 PM EDT</td><td></td><td> </td> 12/13/2020 02:15:00 PM EDT [facility] PROTEIN ELECTROP FXJ&STEFFEN OTH FLUS CONCENTRATION <td>P ROTEIN ELECTROPHORESIS, RANDOM URINE</td><td>Routine</td><td>12/13/2020 2:15 PM EDT</td><td></td><td></td> 12/13/2020 02:15:00 PM EDT [facility] CREATININE OTHER SOURCE <td>CREATININE, URINE, RANDOM</td><td>Routine</td><td>12/13/2020 2:15 PM EDT</td><td></td><td> </td> 12/13/2020 02:15:00 PM EDT [facility] URNLS DIP STICK/TABLET RGNT AUTO W/O MICROSCOPY <td>UR INALYSIS W/O MICRO</td><td>Routine</td><td>12/13/2020 2:15 PM EDT</td><td></td><td> </td> 12/13/2020 02:15:00 PM EDT [facility] ECG ROUTINE ECG W/LEAST 12 LDS W/I&R <td>ECG 12- LEAD</td><td>Routine</td><td>12/13/2020 12:36 PM EDT</td><td></td><td></td> 12/13/2020 12:36:40 PM EDT [facility] ECHO TTHRC R-T 2D W/WOM-MODE COMPL SPEC&COLR DOP 08/03 12:00:00 AM EDT [facility] ([facility]) ECG ROUTINE ECG W/LEAST 12 LDS W/I&R 07/29/2020 12:00: 00 AM EDT [facility] ([facility]) OFFICE OUTPATIENT VISIT 25 MINUTES 07/29/2020 12:00:00 AM EDT [facility] ([facility]) ECG ROUTINE ECG W/LEAST 12 LDS W/I&R 04/27/2020 12:00: 00 AM EST [facility] ([facility]) Immunization: Flublok Quadrivalent (18 years & older) 0.5mL IM (Influenza) 01/15/2020 12:00:00 AM EDT [facility] ([facility]) Results ID Date Data Source [id number] 02/22/2021 10:47:52 AM [facility]FORMATIONPatient MRN Name Date of Age Gend*PT [id number] Dilan Kirk 1960 60 years M IPPT Location Admission Date/Time Visit ID Attending [id number] 02/21/21 0548 --- Leonid Hawley MD([id number]) EPI ID CSN Admitting Provider [id number] Quinn nAdres MD([id number])Physician Discharge Summary Dilan KirkMRN: [id number] date: 02/21/2021dmitting Physician: CLARKE Alfonsoischarge date and [...] RCA withcollaterals and EF of 40% on [facility] of 12/15/2020. History of type 2 diabetes,hypertension, COPD. He was admitted to [facility] December 2020 with ventriculartachycardia and other complicati ons. He underwent successful implantation ofleft-sided single-chamber ICD [facility] on 12/17/2020 for secondaryprevention. He transfers from [facility] with ventriculartachycardia s/p 3 shocks.ICD discharge /V. [...] (chronic obstructive pulmonary disease) Coronary artery disease 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 Diabetes mellitus Fatty liver History of herniated intervertebral disc Hypertension TN (myocardial infarction) Sinusitis Umbilical herniaResults from last 7 daysLab Units 420WBC 10*3/uL 10.1HEMOGLOBIN g/dL 15.0HEMATOCRIT % 44.3PLATELETS 10*3/uL 164Results from last 7 daysLab Units [id number] mmol/L 139POTASSIUM mmol/L 3.8CHLORIDE mmol/L 104CO2 mmol/L [...] Get Your MedicationsThese medications were sent to [id number] - [place] - [id number] [place] RT [id number] [place] [address] [address] amiodarone 200 MG tablet amiodarone 200 MG tabletDischarged Condition:fairDisposition: Home or Self CareFollow upspcpDr.MigeedTime spent coordinating the discharge more than 30 minutes.Signature: Leonid Hawley CLARKEate: February 22, 2021Time: 10:44 AM Name Value Range Interpretation Code Description Data Morena rce(s) Supporting Document(s) ID Date Data Source [id number] 02/22/2021 09:21:32 AM EST [facility] Name Value Range Interpretation Code Description Data Morena rce(s) Supporting Document(s) EKG [facility] [id number] jb2 [file] [id number]+weed cutter/jxwES4E/QMkVd3wMDqMP52qH [file] [id number]+UxcorYPmzMagSJGBFMNnMZqFZOEKG4G= ID Date Data Source [id number] 02/22/2021 07:55:19 AM EST [facility] Name Value Range Interpretation Code Description Data Morena rce(s) Supporting Document(s) POC NOVA GLU 151 mg/dL (70-99) H [facility] [place] PERFORMED BY [facility] STAFF ID Date Data Source [id number] 02/22/2021 08:10:41 AM EST [facility] Name Value Range Interpretation Code Description Data Morena rce(s) Supporting Document(s) SODIUM 139 mmol/L (136-145) [facility] POTASSIUM 3.8 mmol/L (3.6-5.2) [facility] CHLORIDE 104 mmol/L (100-108) [facility] CO2 26 mmol/L (22-31) [facility] ANION GAP 9 mmol/L (7-16) [facility] UREA NITROGEN 16 mg/dL (7-24) [facility] CREATININE 1.08 mg/dL (0.80-1.30) [facility] BUN/CREAT RATIO 14.8 RATIO (10.0-20.0) [facility] GLUCOSE 117 mg/dL (70-99) H [facility] CALCIUM 8.9 mg/dL (8.4-10.2) [facility] GFR >60 ml/min/1.73m2 (>59) [facility] GFR ( AMER) >60 ml/min/1.73m2 (>59) [facility] GFR INTERPRETATION [facility] --NORMAL KIDNEY FUNCTION OR MILD DISEASE - GFR >OR= 60CHRONIC KIDNEY DISEASE - GFR 15 - 59RENAL FAILURE - GFR <15 Est. GFR calculation based on the MDRDstudy equation, which assumes a steadystate for creatinine. Est. GFR should notbe used for medication dosing. ID Date Data Source [id number] 02/22/2021 07:08:05 AM EST [facility] Name Value Range Interpretation Code Description Data Morena rce(s) Supporting Document(s) WBC 10.1 10*3/uL (4.1-11.0) [facility] RBC 4.60 10*6/uL (4.60-6.10) [facility] HGB 15.0 g/dL (13.5-18.0) [facility] HCT 44.3 % (41.0-53.0) [facility] MCV 96.3 fL (80.0-95.0) H [facility] MCH 32.7 pg (27.0-32.0) H [facility] MCHC 33.9 g/dL (32.0-36.0) [facility] RDW 14.5 % (10.5-14.5) [facility] PLT 164 10*3/uL (150-450) [facility] MPV 9.0 fL (7.1-10.7) [facility] ID Date Data Source [id number] 02/22/2021 02:08:49 AM EST [facility] INFORMATIONPatient MRN Name Date of Age Gend*PT [id number] Dilan Kirk 1960 60 years M IPPT Location Admission Date/Time Visit ID Attending [id number] 02/21/21 0548 --- Leonid Hawley MD([id number]) EPI ID CSN Admitting Provider [id number] Quinn Andres MD([id number]) Attestation signed by Quinn Andres MD at [...] PROVIDER REQUESTEDInformant:Current HistoryChief Complaint: [facility] with ventriculartachycardiaHPI:This patient is a 60 years male with medical history of CAD, he has knownchronic occlusion of the RCA with collaterals and EF of 40% on [facility] of 12/15/2020.History of type 2 diabetes, hypertension, COPD. [facility] other [facility]. Heunderwent successful implantation of left-sided single-chamber ICD [employer] on 12/17/2020 for secondary prevention. He transfers from [facility] with ventricular tachycardia s/p 3 shocks.Dilan [...] a thirdICD shock around 1:30 AM.Work-up in [facility] was called.Chest x-ray showed stable nonspecific bilateral perihilar and bibasilarreticulonodular opacities.Blood work showed WBC 12.8, H&H 16.7/49.5, platelets 209, glucose 252,BUN/creatinine 23/1.23 sodium 140, potassium 3.5, magnesium 1.8. The case wasdiscussed with the purchasing clerk on-call. Patient was given metoprolol zeivophkl96 mg, metoprolol tartrate 5 mg IV, amiodarone 150 mg, and he was started onamiodarone drip. He transferred to [facility] for higher level of care.Dilan Kirk is trying to quit smoking. He presently smokes 1 to 2cigarettes a day. Previously smoked up to 2 packs/day for 30 years. He doesnot drink alcohol at all anymore. 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 He transferred tonight from [facility] with ventricular tachycardia s/p 3 AICD treat [...] parts of this document, were dictated using ActualMeds software.A reasonable attempt at proofreading has been made to minimize errors. Pleasecall with any questions or corrections. Name Value Range Interpretation Code Description Data Morena rce(s) Supporting Document(s) ID Date Data Source [id number] 02/21/2021 06:09:50 PM EST [facility] INFORMATIONPatient MRN Name Date of Age Gend*PT [id number] Dilan Kirk 1960 60 years M IPPT Location Admission Date/Time Visit ID Attending ProviderD-[id number] 02/21/21 0548 --- Griselda Faith MD([id number]) EPI ID CSN Admitting Provider [id number] Quinn Andres MD([id number])INPATIENT EP CONSULT NOTEPatient Name: Dilan Kirk of : 1960 Age: 60 yearsGender: male Primary Physician: Dov Puentes of Referral: 02/21/2021 PCP [id number] PHYSICIAN: Leo Hylton M.D.REQUESTING PHYSICIAN: Grace FOR REFFERAL: ICD shockHISTORY OF PRESENT ILLNESS:Dilan Kirk is a 60 years male with medical problems of prior TN spSJM ICD cared for by Dr Monte who presents with ICD shock.No recent sx of ischemia or worsening CHFThe EP service was consulted to consider ablationThe history was taken from the patient ,medical recordsFamily was not present during interview.PAST MEDICAL HISTORY:Past Medical History:Diagnosis Date Acute kidney injury Asthma Cardiomegaly COPD (chronic obstructive pulmonary disease) Coronary artery disease 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 Diabetes mellitus Fatty liver History of herniated intervertebral disc Hypertension TN (myocardial infarction) Sinusitis Umbilical herniaPAST SURGICAL HISTORY:Past [...] normalPERTINENT LABS:Results from last 7 daysLab Units 566113EZUUEUDNZY g/dL 15.7HEMATOCRIT % 45.6PLATELETS 10*3/uL 178SODIUM mmol/L 140POTASSIUM mmol/L 3.7CHLORIDE mmol/L 107CO2 mmol/L 27BUN mg/dL 19CREATININE mg/dL 1.06GLUCOSE mg/dL 144*CALCIUM mg/dL 8.9DIAGNOSTIC DATA:I personally reviewedEKG: sinus rhythmTelemetry Monitoring:sinusEchocardiogram EF: 35%DEVICE INTERROGATION DATADevice: St Christiano medicalPacing mode: [id number] right ventricular: normal fashionThe patient is not [...] class II congestive heart failure8. Hyperlipidemia, hypertension9. Byfzfks60. On hemodialysis for acute renal failure via right IJ vein PLAN:1. Medical therapy with amiodarone2. If meds fail then consider RFA3. VICK pt and Franklin Hylton M.D., [facility], [facility]ENTERClinical Cardiac Ifjilqzwazxoxylup99/15/2021 3:47 PM Name Value Range Interpretation Code Description Data Morena rce(s) Supporting Document(s) ID Date Data Source [id number] 02/21/2021 04:03:50 PM EST [facility] [place] Name Value Range Interpretation Code Description Data Morena rce(s) Supporting Document(s) POC NOVA GLU 146 mg/dL (70-99) H [facility] [place] PERFORMED BY [facility] CLINICAL STAFF ID Date Data Source [id number] 02/21/2021 01:20:19 PM EST [facility] [place] Name Value Range Interpretation Code Description Data Morena rce(s) Supporting Document(s) POC NOVA GLU 152 mg/dL (70-99) H [facility] [place] PERFORMED BY [facility] CLINICAL STAFF ID Date Data Source [id number] 02/21/2021 12:37:56 PM EST [facility] Name Value Range Interpretation Code Description Data Morena rce(s) Supporting Document(s) &PDF [facility] JBADZi5fTtRUItOe00/HMMmmOZJvq0FjANyuMPz4XMafVRRmN4KlbJljVYvERbCUIK3YPD8ZIObDQGdA vQ3 [file] ICAgICAgICAgICAgICAgICAgICAgICAgICAgICAgICAgICAgICAgICAgICAgICAgICAgICAgICAgICAg ICAgICAgICAgICAgICAgICAgICAgICANCiAgICAgIC AgICAgICAgICAgICAgICAgICAgICAgICAgICAgICAgICAgICAgICAgICAgICAgICAgICAgICAgICAgIC AgICAgICAgICAgICAgICAgICAgICAgICAgICAgICAgICANCiAgICAgICAgICAgICAgICAgICAgICAgIC AgICAgICAgICAgICAgICAgICAgICAgICAgICAgICAg ICAgICAgICAgICAgICAgICAgICAgICAgICAgICAgICAgICAgICAgICAgICANCiAgICAgICAgICAgICAg ICAgICAgICAgICAgICAgICAgICAgICAgICAgICAgICAgICAgICAgICAgICAgICAgICAgICAgICAgICAg ICAgICAgICAgICAgICAgICAgICAgICAgICANCiAgIC AgICAgICAgICAgICAgICAgICAgICAgICAgICAgICAgICAgICAgICAgICAgICAgICAgICAgICAgICAgIC AgICAgICAgICAgICAgICAgICAgICAgICAgICAgICAgICAgICANCiAgICAgICAgICAgICAgICAgICAgIC AgICAgICAgICAgICAgICAgICAgICAgICAgICAgICAg ICAgICAgICAgICAgICAgICAgICAgICAgICAgICAgICAgICAgICAgICAgICAgICANCiAgICAgICAgICAg ICAgICAgICAgICAgICAgICAgICAgICAgICAgICAgICAgICAgICAgICAgICAgICAgICAgICAgICAgICAg ICAgICAgICAgICAgICAgICAgICAgICAgICAgICANCi AgICAgICAgICAgICAgICAgICAgICAgICAgICAgICAgICAgICAgICAgICAgICAgICAgICAgICAgICAgIC AgICAgICAgICAgICAgICAgICAgICAgICAgICAgICAgICAgICAgICANCiAgICAgICAgICAgICAgICAgIC AgICAgICAgICAgICAgICAgICAgICAgICAgICAgICAg ICAgICAgICAgICAgICAgICAgICAgICAgICAgICAgICAgICAgICAgICAgICAgICAgICANCiAgICAgICAg ICAgICAgICAgICAgICAgICAgICAgICAgICAgICAgICAgICAgICAgICAgICAgICAgICAgICAgICAgICAg ICAgICAgICAgICAgICAgICAgICAgICAgICAgICAgIC ANCjw/tHQqM5spyTUlbaT1S3rkOh9WJg0GNJ0yp1GyBZLvZSyhrwCpJecXMhJjTEBiGyfAJqy8ZLzwBS 3XbKOqK2IlY3XhCMnlNQ7EUYWlSUPaaIMwSQDxHRUhRrF0PAAcRKmxJD9KfFSeROgjBXMfBQVnWiHnRL SzBU5HBQUpD802pmKmLf4EGs0TTuCdYZ6lgb5EXJOu RNExEmiTZbk9JCsgWO0NjEEdQ9VfjUHda0aNXvZdV5LLPMB7KUOtOe0KQSZdVxUzCYBwQFuzPG0lRHIk BHFRmClupnS7HG4COK7yeiAcYQ1RGyZcZf0hGx7QAjRmF6LwT4VgRTUkMZUGDKnxIG2VXMVgQDO3NFLz CPEjKDSXTmYgH74zQV8LY9Nqx09vBgE1YPLaBzJnVU feOM27tMroalNvhPQqcQuxUP0WKs4+ZVkzliGmEgdDSavbSVGIVeMsSHPTMhLlMFKxPZRdKBSrVlU0Ld IqBq3CCWWbSGTnIXAeAuQpYIZkUYJvWGogTRDpLTfuDSm2RBTsUPEbTG7XGnKqGTMvYoG0RpHcUFGjPK Qjmf2LKWCvZYEyDNX1OPCoLKJhFOCrYWyqEDLyJZMg PegxOQJpRYPcUA4XQoKfEXHlTQS5WybqERHiPOJmjm9EYOIkLQCiGHB9ZxLgBKXkBICaZZvnJIUdASZ7 PVhiGOQrTMHeIJ8EUlCkOUFnFBZ4CcjeDNVdPDQwbn7LMLKbJQEdJhecSEKdSCGoGWNfIGrtRYXzJGH4 WYE9ZSIhCNElPN2ZYrUtXWQhTMf3GjZxALRkOGEmfj 1SGEWiSWMzYVK6QhVpXRQhNQKlMKxeVGUeCMT1EyC8PRJeNRQzYC6NExSlTTGmYWYhASXfOSRrGZDfsw 1SAZOjXDMeYwQyEMTmUJUpELOgOPnpZXZtQOTcFzBdLZGyUMNlBR0MBfDlKUYqDYX7TZYlWVBaBTGgxu 7IMULrRZLgOEAiVmXyUGCwRLJoJXjcKINqMOW7MPV8 MLTcQDAdLW5IOdKjKZWvSYJlARVnBWXsMETcbi5ZQGIaYXTgOGMyEaJrSZZpMQCtCJzbQYWmQDSjZVIm JHGiOJQlGD5VIlHlOCZtXuN1RVjsQWWgQWVupi1XIAJbWKGpCOo1DUVrIIZdZUAtHBqiPQIkBVM9DlP2 LQNsWBQtBZ9RUsGqVOHoWeHlJJTtAOYfFRJrhr8WVE PnNRTnJQI7TJIdHGCjOKZuLAspFWYnGRB7JHB3MNOxPOHzYD0IFoMwAZLnPPLtTWRdZDZuXVJgnn8QGW VoOKG4XCRkVBLsZQMhTCRdZAlpTWUrVRE1LNu1YQXuFXXiNP0NFjKnLZGgGZX7FqSuXWBnXDXtsb6QQO HzYTB8MLrpOQBlNDPsXYPcDNgbEKZxQUC5DIPiFPFj LPTzZA2GMeSnOLAeNnUxBBNnMEDnGZKiue7HHZNbNZZ8OsloAGYfXHLkWUUxMRyyJPMjCChwRDq0XJGn JYYsKY4ENdQiNMUpZxYyGKAnJGRbGSWfed6YRJArABZ8OnYrRhKvIJZiXDNmMMo7ypZxbPNeUQf6KZ7W R3GorlSyWVJRMg5Nt156RAQdAKIaGx2ED7sxFe8zLQ EuBBEYZj5NHMq9BwosCZW7UaPnGLZqYEVjNvA2NZV3JIFrItF0JNI9BZL+PCdeE4DrITKsWSS7ZSE0C5 JcDymbRFY1WXUeZoPxVRu7Uh0iDWETVk3+WZwivAYukZocVDYGLekcLENaOGuzQPHDSd6Z ID Date Data Source [id number] 02/21/2021 09:18:46 AM EST [facility] Name Value Range Interpretation Code Description Data Morena rce(s) Supporting Document(s) POC NOVA GLU 176 mg/dL (70-99) H [facility] [place] [facility] CLINICAL STAFF ID Date Data Source [id number] 02/21/2021 08:50:26 AM EST [facility] Name Value Range Interpretation Code Description Data Morena rce(s) Supporting Document(s) EKG [facility] WABIBc7wSrGDEgRsv3GuUcJsKNOzPL8wjsq7N2Z4iHGzD6KdjOSjz5rkV5DuE4PwOYZjKFJRNT9MpZKg jb2 [file] RMJGQmIVMJmUvIZEJmEzKdkPmETChkRiFTCplTyKRC ZqCmuLB3fLlyFKRrOjdLW1yyLcSZXc3P+YVMMGSGIVMMmWPIJENmGTLNkHmGTDRkpiFTDZlryGRDZhsy 3XC5xhz3GWMnYx4Kw6xdY4MsAa1ElRvMQUUnKeJ6nMa1+7AKgt4HbH2dX/i9Dycd966nzVYV1JakQH1D GqOlSMh4PCBfvlgNNA0giFTBxcCsbIxK0ZWZtzfjHL m17RlI3orCJVVVG2v3buDDIvYZ7r1aGO92leuS51ojhRlltL3jcnu3Zz8ccJIUjfLBoNQKAFOfxtSNuN dFRSZlwuYleTULFcXImE1pIPIyR9OWbOBqyCPhO1SQeViqyNWhE6JIaWzsrLBnU1KCsU4xkSGeVHGGpY BZMmHxPDGMbJwI8SMpQdO6MPc7OffmjWArF38rPKSI oJiN0PNtOeM1CAhKeE6M1qMxH6C4ZWjQcU4VLmSwA9WOMthLu/e/08jDys0+393eECfMBDOFmcJMYaYw psSmOMSxufQAgosWLZNwFzdvTlSrLrnypRsBSUImZaUV2dv4Ufmaz3gOkGLeWWZ7+Hk47Dbtzgfur7ai rihCbavjS1IlXsTQtMthY0PtCoRufCcdH9awUmLmrP iwA1kjCiR64H2bOv6/xMheJvtFdi+nJT/iFmKtrGO3duVlsv1Hpd/OzZvpq1/OzjffPT/9dnN2+s30y/ MXL54//lRixjXX6IXsjbVDbPa7q86/T92VaoxB5qvF8z7Hyv5J4zL53XvOyYDISWuc1x5c6ZHwD+AFx7 /dXN6ii531akweP52O2075jot82/zW1lM2Xp8F+dlP m+kqC8T2tsPa30hSKDkubBy8m7W6f4S5mnBsx3I0jHRg81wO2U331Her347+fH/5Zvrbl+mvF3/+efHn O3Yq3ur5Z0Hfd1jhWg/58tLgebh7sOywHdgc9/o7U5N0r8k/5jZaXvbJl+RxfiSd3xkM86nfeJNTJnUK 3UKczalpKe39+/yv0kAK7BPn62AtQws79wfgp0S9V6 z8+k/vC6q85aw98qxn4r5G15uN/7x491+Wv674/1p+G0xf5BWp42Rwz41Ua/5URvn8F78etv54+S/r75 a4m/39ioNo5rZirpxD+TLHoyVkq9/4zCr9ySZl2vSlE2sJBY6nKaHMIy1b/upz9aixHte93+AdVKb7Ue cdfv/42QCieX0p5lr+cDa87kuK09/VIztg2AKPkc05 +UD2vgc4F8u6d/djOP/w4f3xs+8AKr9U4P/zGh0zN5k8ook9D9HQa6htFw///ert6+3yejw1TTdd5p/1 6fO2NG+Kcqs5vMfD2wy5l9d8/IHZ0jYtl02cdibL/woWjakzwXU20Bo/VOhRS3lzeg5+7S73wXpiAgin r3H9gugp9eUPp21+RrmckUkq9JudIey3448N+g/Amor suBnUpLJN5yzGtqSsinaDjAopFDkVzJLFoIru9DR8EsLEcKPUqP9I0AIEdbi0iVZJoZIPisSBqFbXeLV NVVO9YoPEmTT2AEHw4EZI7JEScPwQiWIQaUE65NEDuVKWYTg2dseLfRjmPXbMzEA2fjle9A7Y0dLVsA6 22mZmboqRwUI0Vs1MgoFNcYZ0IdUAdiCVzURDiJZDp I0qwq2DiYnYpIZFKQm0wolPeEnwUHiZjBV4gynj4O4X5nSlnhtGiHBBNURgrEkphWL7vbAlbzuibZ1Ub lTUrPAVbA2KuYUAfi82PKTXcADrFBzDlUqZhHWD7GXl5YFblMzBzINQdDPFtFFHfEA1SwEJjQQRpNLRL PWkwRntaCWSvnP6vmEACj2ReV53ELUrVGeyIB25lKF qEOMmUXM4bQUNuTtM0Esa3IYTqV3SweaBkdJAcGIZZDSnxSzpjHRDotG6czVkeS3KiJNF7j8GxUH6SU7 RhBMMuOFUXGLS4r3HuCPEpwtoizwwhHoGqSTPfECAiDGFpKE6Nda0clHZsphLyDTKOVTusQpthRX5kvL nmdyloH2ExpDInDCH+NrXkIW4axt9+CjEgMCBvYmo8 KKWgBKjqZYQnQKGxWCYpH2nfOCQmHjCjMDGvQpQgHZPhUYRxEDDdD716elBmPf8+ZF9ck1UhRwwiTFCL CMYcGVQwHANwDZC3MvRhBZJpWBXpOAYhAtX9UtByDvAOOMMuCOP3QVOlHsZjJSMvEIKtAYrrXWYpENY2 QDv3BNHdJGZkCC7iCmUyITFuHOUsEWkaLJUyRSZvks QGQQOiWJKpKNRrBSY7OOWuBCEdGAkaLSViZTJnXEF5UBUkRCHsTH3pJdRgHAVwKHYqZlcgHNQmWKZfqz TDJOAqORKiKXO5ViFhUUGlZYPbAWtzHFDuPGSnFdy6XGYbSMWrYX8zZvLcLDYjYGI9DButJASuMLDvqq AKMDAwMDAwMDUyMyAwMDAwMCBuIAowMDAwMDAwNjQx EKVfMZXkFI2nSlWcJQMpPPJ4EJOjOREyEMEjpfFZBMPcLHMtPCs3XZPzCQRyWSLaHCafHQMsCCZqYCU8 JLTdJSUgYW5eNdTmBIEzXTDpNOTqXSBwNWVjjcWCNPKaBJDiOSF0FVRzWZJzKIEmMUrwIJKiBUTeTqp4 GZSnGFAzHW9rJbPyWRIrOYK8WDYeMORnVQJrbpJEYN ImDQT5OLF8BoTqVSXhUDZoKNkcPEMgUTCcYgY8JSGbSVOhOR7mIoUcSKImDXQ0NhYwCVAqTGKrgsRANA NjJZGzLUR0XgQtBKDiNCIxPQhbJRFgTRP7ZZG3KFFoXARtYF9cRhSmTKYtBMLgDYFyZZTlNVJjvdNRHR LhOKX6GPIeBRAzPEWdHRQbJHzeMTSoPGTpIpO8GGXu GINxCR7rGsLbJPKaLHPfPPQtGbV6BwZiWrTSwHTmxCfoamu1NNiiX0k7OTMlQAeeJZ8yelFuVMRxBuhl Uy7ldCJ9SDTsBrsNNj3Ym1OntzF2kvJjIbA2FLb2CtMkDE7S ID Date Data Source [id number] 02/21/2021 08:37:31 AM EST [place], [place] [address]Patient Name: DILAN KIRKDOB: 3Sex: MOrdering Provider: MITCHEL Cartwright Prov: MITCHEL Rob Provider: Procedure Performed: / XR CHEST PORTABLEExam Date: 02/21/2021 08:32MRN: [id number] Number: [id number] Class: InpatientAccount #: [id number] for Exam: chest painTechnique: AP portable view obtained.Comparison: February 21, 2021Findings: The defibrillator is unchanged.The cardiac silhouette is prominent.No pneumothorax, pleural effusion, heart failure or pneumonia is appreciated.IMPRE SSION: Prominent cardiac silhouette.Report electronically signed by: REHANA BERGER On 02/21/2021 8:37 AMWorkstation ID: [id number] Name Value Range Interpretation Code Description Data Morena rce(s) Supporting Document(s) ID Date Data Source [id number] 02/21/2021 08:37:09 AM EST [facility] NT INFORMATIONPatient MRN Name Date of Age Gend*PT [id number] Dilan Kirk 1960 60 years M IPPT Location Admission Date/Time Visit ID Attending ProviderD-[id number] 02/21/21 0548 --- Griselda Faith MD([id number]) EPI ID CSN Admitting Provider [id number] Quinn Andres MD([id number])Cardiology ConsultName: Dilan Kirk Gender: maleDate of : [...] a 60 years male who [facility] night after he was [...] (chronic obstructive pulmonary disease) Coronary artery disease 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 Diabetes mellitus Fatty liver History of herniated intervertebral disc Hypertension TN (myocardial infarction) Sinusitis Umbilical herniaPast Surgical History:Procedure [...] Social Gatherings with Friends and Family: Attends Catholic Services: Active Member of Clubs or Organizations: [...] artery disease Hypertension Defibrillator dischargeRecommendations:Patient presented to [facility] and attending called me from [...] rce(s) Supporting Document(s) ID Date Data Source [id number] 02/21/2021 08:08:35 AM EST [facility] Name Value Range Interpretation Code Description Data Morena rce(s) Supporting Document(s) TSH,ULTRASENSITIVE @ 1.587 mIU/L (0.360-4.170) [facility] PERFORMED AT [address] [place] [address] [address] [id number] ID Date Data Source [id number] 02/21/2021 08:08:35 AM EST [facility] Name Value Range Interpretation Code Description Data Morena rce(s) Supporting Document(s) NT PRO BNP 566 pg/mL (0-125) H [facility] [place] ID Date Data Source [id number] 02/21/2021 08:08:35 AM EST [facility] Name Value Range Interpretation Code Description Data Morena rce(s) Supporting Document(s) TROPONIN I 0.05 ng/mL (<0.05) H [facility] [place] Less than 0.05: Myocardial injury unlike lyGreater than or equal to 0.05: Highly suggestive of myocardial injuryCorrelation with rise and/or fall ofserial troponins, clinical symptomsand ECG changes is necessary. ID Date Data Source [id number] 02/21/2021 08:08:35 AM EST [facility] [place] Name Value Range Interpretation Code Description Data Morena rce(s) Supporting Document(s) SODIUM 140 mmol/L (136-145) [facility] POTASSIUM 3.7 mmol/L (3.6-5.2) [facility] CHLORIDE 107 mmol/L (100-108) [facility] CO2 27 mmol/L (22-31) [facility] ANION GAP 6 mmol/L (7-16) L [facility] UREA NITROGEN 19 mg/dL (7-24) [facility] CREATININE 1.06 mg/dL (0.80-1.30) [facility] BUN/CREAT RATIO 17.9 RATIO (10.0-20.0) [facility] GLUCOSE 144 mg/dL (70-99) H [facility] CALCIUM 8.9 mg/dL (8.4-10.2) [facility] TOTAL PROTEIN 7.4 g/dL (6.4-8.2) [facility] ALBUMIN 3.5 g/dL (3.5-4.6) [facility] GLOBULIN 3.9 g/dL (2.7-4.3) [facility] ALB/GLOB RATIO 0.9 RATIO [facility] ALKALINE PHOSPHATASE 60 U/L (45-117) [facility] BILIRUBIN,TOTAL 0.4 mg/dL (0.0-1.0) [facility] PLEASE NOTE:Total bilirubin results may be falselyelevated in patients taking Eltrombopag. AST (SGOT) 19 U/L (11-39) [facility] ALT (SGPT) 38 U/L (12-78) [facility] GFR >60 ml/min/1.73m2 (>59) [facility] GFR ( AMER) >60 ml/min/1.73m2 (>59) [facility] GFR INTERPRETATION [facility] --NORMAL KIDNEY FUNCTION OR MILD DISEASE - GFR >OR= 60CHRONIC KIDNEY DISEASE - GFR 15 - 59RENAL FAILURE - GFR <15 Est. GFR calculation based on the MDRDstudy equation, which assumes a steadystate for creatinine. Est. GFR should notbe used for medication dosing. ID Date Data Source [id number] 02/21/2021 08:04:51 AM EST [facility] Name Value Range Interpretation Code Description Data Morena rce(s) Supporting Document(s) MAGNESIUM 2.0 mg/dL (1.7-2.4) [facility] ID Date Data Source [id number] 02/21/2021 07:56:32 AM EST [facility] SPEC EXP DATE 02/24/2021ATI ENT ABO/Rh A POSITIVEANTIBODY SCREEN NEGATIVETESTING SITE PERFORMED AT [address] [place] [address] Name Value Range Interpretation Code Description Data Morena rce(s) Supporting Document(s) TYPE AND SCREEN [facility] [place] ID Date Data Source [id number] 02/21/2021 07:22:54 AM EST [facility] Name Value Range Interpretation Code Description Data Morena rce(s) Supporting Document(s) APTT 25.9 s (22.0-34.3) [facility] Susie Shoemaker ID Date Data Source [id number] 02/21/2021 07:22:54 AM EST [facility] Name Value Range Interpretation Code Description Data Morena rce(s) Supporting Document(s) PT 11.5 s (9.2-11.9) [facility] INR 1.09 [facility] SUGGESTED THERAPEUTIC RANGES USING INR F ORSTABILIZED ANTICOAGULATED PATIENTS:STANDARD DOSE THERAPY INR 2.0-3.0 DVT, PE, PREVENT DVT OR EMBOLISMHIGH DOSE THERAPY INR 2.5-3.5 PREVENT EMBOLISM FROM MECHANICAL HEART VALVE ID Date Data Source [id number] 02/21/2021 07:05:55 AM EST [facility] Name Value Range Interpretation Code Description Data Morena rce(s) Supporting Document(s) WBC 10.8 10*3/uL (4.1-11.0) [facility] RBC 4.82 10*6/uL (4.60-6.10) [facility] HGB 15.7 g/dL (13.5-18.0) [facility] HCT 45.6 % (41.0-53.0) [facility] MCV 94.6 fL (80.0-95.0) [facility] MCH 32.6 pg (27.0-32.0) H [facility] MCHC 34.5 g/dL (32.0-36.0) [facility] RDW 15.0 % (10.5-14.5) H [facility] PLT 178 10*3/uL (150-450) [facility] MPV 8.5 fL (7.1-10.7) [facility] NEUT % 77.3 % (35.0-75.0) H [facility] LYMPH % 15.5 % (16.0-52.0) L [facility] MONO % 5.8 % (0.0-8.0) [facility] EOS % 0.4 % (0.0-5.0) [facility] BASO % 1.0 % (0.0-4.0) [facility] NEUT # 8.4 10*3/uL (1.8-7.7) H [facility] LYMPH # 1.7 10*3/uL (1.2-4.8) [facility] MONO # 0.6 10*3/uL (0.0-0.8) [facility] Eosinophils [#/volume] in Blood by Automated count 0.0 10*3/uL (0.0-0 .5) [facility] BASO # 0.1 10*3/uL (0.0-0.2) [facility] ID Date Data Source [id number] 02/21/2021 07:26:44 AM EST [facility] Name Value Range Interpretation Code Description Data Morena rce(s) Supporting Document(s) COLOR [facility] APPEARANCE [facility] SPEC GRAV URINE 1.033 (1.003-1.030) H [facility] PH URINE 6.0 (5.0-7.5) [facility] LEUK ESTERASE (NEG) [facility] NITRITE URINE (NEG) [facility] PROTEIN URINE (NEG) [facility] GLUCOSE URINE 3+ (NEG) A [facility] KETONE URINE (NEG) [facility] [place] UROBILINOGEN 1.0 mg/dL (0-1.0) [facility] [place] BILIRUBIN URINE (NEG) [facility] BLOOD/HGB URINE (NEG) [facility] ID Date Data Source [id number] 02/21/2021 07:08:36 AM EST [facility] Name Value Range Interpretation Code Description Data Morena rce(s) Supporting Document(s) URN CULTURE HOLD [facility] FOR ADD ON CULTURE ID Date Data Source [id number] 01/28/2021 10:38:00 AM EDT [facility] ([facility]) Name Value Range Interpretation Code Description Data Morena rce(s) Supporting Document(s) Magnesium [Mass/volume] in Serum or Plasma 2.1 mg/dL 1.8-2.4 [facility] ([facility]) ID Date Data Source [id number] 01/28/2021 10:38:00 AM EDT [facility] [place] Value Range Interpretation Code Description Data Morena rce(s) Supporting Document(s) Glucose, Fasting 141 mg/dL 70-100 [facility] ([facility]) Blood Urea Nitrogen 16 mg/dL 7-18 [facility] ([facility]) Creatinine For GFR 1.30 mg/dL 0.70-1.30 [facility] ([facility]) Sodium Level 137 meq/L 136-145 [facility] ([facility]) Glomerular Filtration Rate Laboratory test result [facility] ([facility]) <content>Units are mL/min/1.73 m2</content>
<content></content>
<content>Chronic Kidney Disease Staging per NKF:</content>
<content></content>
<content>Stage I & II GFR >=60 Normal to Mildly Decreased</content>
<content>Stage III GFR 30- 59 Moderately Decreased</content>
<content>Stage IV GFR 15-29 Severely Decreased</content>
<content>Stage V GFR <15 Very Little GFR Left</content>
<content>ESRD GFR <15 on ARRT TECHNOLOGIST</content>
<content></content> Chloride Level 100 meq/L 98-107 [facility] ([facility]) Potassium Serum 4.4 meq/L 3.5-5.1 [facility] ([facility]) Anion Gap 5 meq/L 8-16 [facility] ([facility]) Carbon Dioxide Level 32 meq/L 21-32 [facility] ([facility]) Ast/Sgot 21 U/L 7-37 [facility] ([facility]) Calcium Level 9.9 mg/dL 8.5-10.1 [facility] ([facility]) Alkaline Phosphatase 64 U/L 45-117 [facility] ([facility]) Alt/SGPT 32 U/L 12-78 [facility] ([facility]) Bilirubin,Total 0.5 mg/dL 0.2-1.0 [facility] ([facility]) Total Protein 7.6 GM/DL 6.4-8.2 [facility] ([facility]) Albumin 3.9 GM/DL 3.2-5.2 [facility] ([facility]) Albumin/Globulin Ratio 1.1 [facility] ([facility]) ID Date Data Source [id number] 01/28/2021 10:38:00 AM EDT [facility] ([facility]) Name Value Range Interpretation Code Description Data Morena rce(s) Supporting Document(s) Natriuretic peptide.B prohormone N-Terminal [Mass/volu me] in Serum or Plasma 762 pg/mL [facility]) ID Date Data Source [id number] 01/21/2021 01:39:10 PM EDT [facility] Name Date of Age Gend*PT [id number] Dilan Kirk 1960 60 years M IPPT Location Admission Date/Time Visit ID Attending [id number] 12/13/20 1238 --- --- EPI ID CSN Admitting Provider [id number] Crystal Neal MD([id number]) [facility] DISCHARGE SUMMARYPatient Name: Dilan Kirk of : 1960 Age 60 yearsPrimary Physician: PCP PROVIDER REQUESTED PCP Phone: NoneAdmission Date: 12/13/2020 Discharge Date: 12/17/2020[facility] home.Discharge Diagnoses:Principal Problem: Coronary artery disease involving [place] coronary artery of [place] heart withunstable angina pectorisActive Problems: Sustained VT [...] summary.Items needing special attention:Followup with Nephrology and [facility] Course:Dilan Kirk is a 60 y.o. male with PMHx significant for HTN, DM2, COPD,CAD, TN. He states he drank 7-8 wine coolers [...] persisting into today, promptinghim to go to [facility] ER for evaluation. There he was found to be in VT with"rate at 170". He was cardioverted x 1 at 200J with conversion to SR with STelevations in lead III and lateral ST depressions. He was loaded with ASA andplavix, heparin gtt was started and he was transferred to [facility] ER for Cardiologyevaluation. Noted to be in JOHN, Nephrology was consulted. Thought to besecondary to ATN. S/p urgent HD in ICU on 12/13 and HD again on 12/16 withimprovement in renal function. Maddie was pulled out prior to discharge.For acute hepatitis, Gastroenterology was consulted. Started on NAC protocolwith improvement.For sustained Vtach, Ca rdiology and EP was consulted. [facility] on 12/15 showing [...] rce(s) Supporting Document(s) ID Date Data Source [id number] 12/27/2020 08:12:00 AM EDT [facility] ([facility]) Name Value Range Interpretation Code Description Data Morena rce(s) Supporting Document(s) Magnesium [Mass/volume] in Serum or Plasma 1.9 mg/dL 1.8-2.4 [facility] ([facility]) ID Date Data Source [id number] 12/27/2020 08:12:00 AM EDT [facility] ([facility] Name Value Range Interpretation Code Description Data Morena rce(s) Supporting Document(s) Blood Urea Nitrogen 25 mg/dL 7-18 [facility] (Ca [facility]ology [facility]) Glucose, Fasting 168 mg/dL 70-100 [facility] ([facility]) Glomerular Filtration Rate Laboratory test result [facility] ([facility]) <content>Units are mL/min/1.73 m2</content>
<content></content>
<content>Chronic Kidney Disease Staging per NKF:</content>
<content></content>
<content>Stage I & II GFR >=60 Normal to Mildly Decreased</content>
<content>Stage III GFR 30- 59 Moderately Decreased</content>
<content>Stage IV GFR 15-29 Severely Decreased</content>
<content>Stage V GFR <15 Very Little GFR Left</content>
<content>ESRD GFR <15 on ARRT TECHNOLOGIST</content>
<content></content> Creatinine For GFR 1.26 mg/dL 0.70-1.30 [facility] ([facility]) Potassium Serum 4.5 meq/L 3.5-5.1 [facility] ([facility]io [facility]y [facility]) Sodium Level 137 meq/L 136-145 [facility] ([facility]) Chloride Level 99 meq/L 98-107 [facility] ([facility]) Anion Gap 8 meq/L 8-16 [facility] ([facility]iology A [facility]) Carbon Dioxide Level 30 meq/L 21-32 [facility] (C [facility]ology [facility]) Calcium Level 9.5 mg/dL 8.5-10.1 [facility] ([facility]iolo gy [facility]) Alt/SGPT 116 U/L 12-78 [facility] ([facility]iology [facility]) Ast/Sgot 36 U/L 7-37 [facility] ([facility]) Bilirubin,Total 0.7 mg/dL 0.2-1.0 [facility] ([facility]io [facility]y [facility]) Alkaline Phosphatase 71 U/L 45-117 [facility] ([facility]) Total Protein 7.4 GM/DL 6.4-8.2 [facility] (Cardiolo gy [facility]) Albumin 3.7 GM/DL 3.2-5.2 [facility] ([facility]iology A [facility]) Albumin/Globulin Ratio 1.0 [facility] ([facility]) ID Date Data Source [id number] 12/27/2020 08:12:00 AM EDT [facility] ([facility]i [facility]y [facility]) Name Value Range Interpretation Code Description Data Morena rce(s) Supporting Document(s) Natriuretic peptide.B prohormone N-Terminal [Mass/volu me] in Serum or Plasma 1141 pg/mL [facility] ([facility]ate [facility]) ID Date Data Source [id number] 12/17/2020 06:57:27 PM EDT [address] [address] Name: DILAN KIRKDOB: 1960ex: MOrderyajaira Provider: Sulma Cristobal Prov: Sulma Sanchez Provider: Procedure Performed: / XR CHEST PORTABLEExam Date: 12/17/2020 18:56MRN: [id number] Number: [id number] Class: InpatientAccount #: [id number] for Exam: icdTechnique: AP portable view obtained.Comparison: December 13, 2020Findings: ICD lead is projected over the right ventricle. There is moderate cardiac megaly. No adenopathy is revealed. No pneumothorax demonstrated. No pleural effusion is demonstrated. Lungs are hypoinflated but clear.IMPRESSION: Cardiomegaly. No pneumothorax.Report electronically signed by: HAILEE CHARLES On 12/17/2020 6:57 PMWorkstation ID: [id number] Name Value Range Interpretation Code Description Data Morena rce(s) Supporting Document(s) ID Date Data Source [id number] 12/17/2020 06:54:08 PM EDT [facility] Name Value Range Interpretation Code Description Data Morena rce(s) Supporting Document(s) POC NOVA GLU 112 mg/dL (70-99) H [facility] [place] [facility] CLINICAL STAFF ID Date Data Source [id number] 12/17/2020 05:58:49 PM EDT [facility] Name Value Range Interpretation Code Description Data Morena rce(s) Supporting Document(s) &PDF [facility] [id number]4MMO2UOKjUFRqD Dcm [file] [id number]= ID Date Data Source [id number] 12/17/2020 11:50:01 AM EDT [facility] Name Value Range Interpretation Code Description Data Morena rce(s) Supporting Document(s) POC NOVA GLU 193 mg/dL (70-99) H [facility] [place] [facility] CLINICAL STAFF ID Date Data Source [id number] 12/17/2020 09:15:22 AM EDT [facility] Name Value Range Interpretation Code Description Data Morena rce(s) Supporting Document(s) POC NOVA GLU 149 mg/dL (70-99) [facility] [place] [facility] CLINICAL STAFF ID Date Data Source [id number] 12/17/2020 10:43:50 AM EDT [facility] Name Value Range Interpretation Code Description Data Morena rce(s) Supporting Document(s) APTT 60.9 s (22.0-34.3) H [facility] ID Date Data Source [id number] 12/17/2020 01:55:46 AM EDT [facility] Name Value Range Interpretation Code Description Data Morena rce(s) Supporting Document(s) APTT 73.2 s (22.0-34.3) H [facility] ID Date Data Source [id number] 12/16/2020 05:57:46 PM EDT [facility] Name Value Range Interpretation Code Description Data Morena rce(s) Supporting Document(s) POC NOVA GLU 104 mg/dL (70-99) [facility] [place] [facility] CLINICAL STAFF ID Date Data Source [id number] 12/16/2020 05:43:04 PM EDT [facility] Name Value Range Interpretation Code Description Data Morena rce(s) Supporting Document(s) APTT 56.3 s (22.0-34.3) H [facility] ID Date Data Source [id number] 12/16/2020 12:34:46 PM EDT [facility]FORMATION[facility] MRN Name Date of Age Gend*PT [id number] Dilan Kirk 1960 60 years M IPPT Location Admission Date/Time Visit ID Attending [id number] 12/13/20 1238 --- Crystal Neal MD([id number]) EPI ID CSN Admitting Provider [id number] Crystal Neal MD([id number]) Attestation signed by Crystal Neal MD at 12/16/2020 12:34 PMPatient seen and examined independently on 12/13, I discussed management and Iagree with plan outlined by Griselda Grimaldo. Plan for emergent dialysis.Signature: Crystal Neal, MDDate: December 16, 2020Time: 12:34 PM Inpatient History & PhysicalWilldebi KirkMRN:[id number] from [facility]: [place] s/p cardioversion, elevated troponinHPI: 60 years-old male with pmhx significant for CAD with ICM (EF 40%), DM2, HTNpresents 12/13/20 to [facility] as a transfer from [facility]. He was c/o dizzinesssince Sunday - states he drank too much at a field day with persistentdizziness and paraesthesias in his extremities -- arrived to [facility] ED, foundto be in VT requiring cardioversion x 1 (200 J). He states his paraesthesias anddizziness resolved -- Post cardioversion EKG SR with ST elevations to lead III,lateral depressions. He was loaded with aspirin/plavix and started on heparindrip and transferred to [facility].Troponin 3.36, NTpro BNP >33kPOC BMP abnormal: [...] chronically occluded RCA with Lto R collaterals, [employer]: Dr. Wright (Deputy). Spoke to Dr. Erickson(cardiology) for consult, will also consult nephrology.Assessment and Plan:Principal Problem: Coronary artery disease involving confederated salish coronary artery of confederated salish heart withunstable angina pectorisActive Problems: VT (ventricular tachycardia) COPD (chronic obstructive pulmonary disease) DM2 (diabetes mellitus, type 2) HTN (hypertension) Tobacco use Elevated troponin JOHN (acute kidney injury) Elevated LFTsVT, elevated troponin, Hx of single vessel CAD (RCA), s/p cardioversion,currently SR with occasional PVC- continue aspirin/plavix- continue heparin drip- cardiology consult is pending- r/o [id number], denies any previous history of renal problems, [...] 2- check A1c- serum glucose 150 (from [facility])- home meds: metformin, Steglatro- monitor BG, start lantus 6u nightly, 2u ISSDVT prophylaxis: heparin dripCode status: FULL CODED/w Dr. Dwyer Medical History:Past Medical History:Diagnosis Date Asthma Cardiomegaly COPD (chronic obstructive pulmonary disease) Coronary artery disease Diabetes mellitus History of herniated intervertebral disc Hypertension TN (myocardial infarction) Sinusitis Umbilical herniaPast Surgical History:No [...] Griselda Grimaldo, NPDate: December 13, 2020Time: 1:50 [id number] Name Value Range Interpretation Code Description Data Morena rce(s) Supporting Document(s) ID Date Data Source [id number] 12/16/2020 12:04:32 PM EDT [facility] Name Value Range Interpretation Code Description Data Morena rce(s) Supporting Document(s) POC NOVA GLU 115 mg/dL (70-99) H [facility] CLIN[facility] STAFF ID Date Data Source [id number] 12/16/2020 11:09:20 AM EDT [facility] Name Value Range Interpretation Code Description Data Morena rce(s) Supporting Document(s) PHOSPHORUS 1.6 mg/dL (2.5-4.5) L [facility] ID Date Data Source [id number] 12/16/2020 11:09:20 AM EDT [facility] Name Value Range Interpretation Code Description Data Morena rce(s) Supporting Document(s) SODIUM 136 mmol/L (136-145) [facility] POTASSIUM 3.6 mmol/L (3.6-5.2) [facility] CHLORIDE 100 mmol/L (100-108) [facility] CO2 31 mmol/L (22-31) [facility] ANION GAP 5 mmol/L (7-16) L [facility] UREA NITROGEN 22 mg/dL (7-24) [facility] CREATININE 1.00 mg/dL (0.80-1.30) [facility] BUN/CREAT RATIO 22.0 RATIO (10.0-20.0) H [facility] GLUCOSE 125 mg/dL (70-99) H [facility] CALCIUM 8.2 mg/dL (8.4-10.2) L [facility] GFR >60 ml/min/1.73m2 (>59) [facility] GFR ( AMER) >60 ml/min/1.73m2 (>59) [facility] GFR INTERPRETATION [facility] --NORMAL KIDNEY FUNCTION OR MILD DISEASE - GFR >OR= 60CHRONIC KIDNEY DISEASE - GFR 15 - 59RENAL FAILURE - GFR <15 Est. GFR calculation based on the MDRDstudy equation, which assumes a steadystate for creatinine. Est. GFR should notbe used for medication dosing. ID Date Data Source [id number] 12/16/2020 10:51:49 AM EDT [facility] [place] Name Value Range Interpretation Code Description Data Morena rce(s) Supporting Document(s) WBC 10.1 10*3/uL (4.1-11.0) [facility] RBC 4.59 10*6/uL (4.60-6.10) L [facility] HGB 15.2 g/dL (13.5-18.0) [facility] HCT 43.4 % (41.0-53.0) [facility] MCV 94.4 fL (80.0-95.0) [facility] MCH 33.0 pg (27.0-32.0) H [facility] MCHC 35.0 g/dL (32.0-36.0) [facility] RDW 14.7 % (10.5-14.5) H [facility] PLT 130 10*3/uL (150-450) L [facility] MPV 8.8 fL (7.1-10.7) [facility] ID Date Data Source [id number] 12/16/2020 11:07:19 AM EDT [facility] Name Value Range Interpretation Code Description Data Morena rce(s) Supporting Document(s) APTT 56.6 s (22.0-34.3) H [facility] ID Date Data Source [id number] 12/15/2020 11:02:30 PM EDT [facility] Name Value Range Interpretation Code Description Data Morena rce(s) Supporting Document(s) APTT 61.8 s (22.0-34.3) H [facility] ID Date Data Source [id number] 12/15/2020 06:29:11 PM EDT [facility] Name Value Range Interpretation Code Description Data Morena rce(s) Supporting Document(s) POC NOVA GLU 167 mg/dL (70-99) H [facility] CLIN[facility] STAFF ID Date Data Source [id number] 12/15/2020 05:45:14 PM EDT [facility] Name Value Range Interpretation Code Description Data Morena rce(s) Supporting Document(s) &PDF [facility] FBOLQh9kHlQWCrLn33/DCKjbPNOoz1UnTNijGYr2IDqhKHGrK7KtoJdpNKtZRiXWKR6MRD3LPSjZRJiZ yZW [file] ICAgICAgICAgICAgICAgICAgICAgICAgICAgICAgIC AgICAgICAgICAgICAgICAgICAgICAgICAgICAgICAgICAgICAgICAgICAgICAgDQogICAgICAgICAgIC AgICAgICAgICAgICAgICAgICAgICAgICAgICAgICAgICAgICAgICAgICAgICAgICAgICAgICAgICAgIC AgICAgICAgICAgICAgICAgICAgICAgICAgICAgDQog ICAgICAgICAgICAgICAgICAgICAgICAgICAgICAgICAgICAgICAgICAgICAgICAgICAgICAgICAgICAg ICAgICAgICAgICAgICAgICAgICAgICAgICAgICAgICAgICAgICAgDQogICAgICAgICAgICAgICAgICAg ICAgICAgICAgICAgICAgICAgICAgICAgICAgICAgIC AgICAgICAgICAgICAgICAgICAgICAgICAgICAgICAgICAgICAgICAgICAgICAgICAgDQogICAgICAgIC AgICAgICAgICAgICAgICAgICAgICAgICAgICAgICAgICAgICAgICAgICAgICAgICAgICAgICAgICAgIC AgICAgICAgICAgICAgICAgICAgICAgICAgICAgICAg DQogICAgICAgICAgICAgICAgICAgICAgICAgICAgICAgICAgICAgICAgICAgICAgICAgICAgICAgICAg ICAgICAgICAgICAgICAgICAgICAgICAgICAgICAgICAgICAgICAgICAgDQogICAgICAgICAgICAgICAg ICAgICAgICAgICAgICAgICAgICAgICAgICAgICAgIC AgICAgICAgICAgICAgICAgICAgICAgICAgICAgICAgICAgICAgICAgICAgICAgICAgICAgDQogICAgIC AgICAgICAgICAgICAgICAgICAgICAgICAgICAgICAgICAgICAgICAgICAgICAgICAgICAgICAgICAgIC AgICAgICAgICAgICAgICAgICAgICAgICAgICAgICAg ICAgDQogICAgICAgICAgICAgICAgICAgICAgICAgICAgICAgICAgICAgICAgICAgICAgICAgICAgICAg ICAgICAgICAgICAgICAgICAgICAgICAgICAgICAgICAgICAgICAgICAgICAgDQogICAgICAgICAgICAg ICAgICAgICAgICAgICAgICAgICAgICAgICAgICAgIC MxAZRlWWJcEKEoFVQcXEFaOUOnDWJoKMOuLMTgECGgBYDzODSyUJOaPTSsPHLjDGVuXABwTWBfYOs4A6 hrNECcSJCvGI5hWLp7Ll3+KNjXZmSnALG3wjChgC5KFB0zf4BbNCxsPIIgn1PmVAk3ZP6ITECdTZqvXM 8VJPrkvd4XZFPmNDGsfIOTt5rbWwWtUTY6XWLdZsvc UD7ZBSSqD1jibzTrYDIdHIZGQGoqAUAYUBcmQPOTLSWvDJCxQkRxQCbdAO9Td5JlhCB6GQu+Zj3LYO5s g5XfGIiiOqYdEY9qbs8PPJkEDdNjF9RvvqQ2JES6HTHtCp4KOEGnJLEdkLJvGNMrHVNFVgFsB6UahR41 IDENCj4+FHzpuwOfZoqUYpJ3ZYUxb8PqFNd2QR1OCK HzYOw3gWOxKJ2iyJWjdJZdSRhjZK6YLPH5MSypSsFwNCKkB4sGUqZrIRzbVAJtvHyhCB4PNwGkJ1Ephk VudCAzMyAwIFINCj4+TKcewbMyKfzOMqI6MLRco7IbZRd6QJ2XHMEhCYzaQU1LBEHckM9iTPetKL2EHi VeOLDhFLTMZaSoZ92zoLWiDHy6R5QnIjIzRSLaWdei ZXMgPDwvTmFtZXMgWyBdDQogID4+ID4+EUrhAF6TFVayuyTuOQCkSr7JLMNbKMFtCE8kHNGxMPTsB5N8 wAbmOUBRNbQgS7mijtbvDR3mJOMqX966oPgiygOuFKTxVZGdYp0LHFMgGVH5UVMroDSaVjZgLBZVEHyo JO1YbPKyZZN7lI8xWIrwSMVkKREwJ2pGUgYpyZupCJ 51bGwgbnVsbCBdDQo+Xk3FLN6jb6YaEMl2rrFbMZupPIK3SJvhYRNdRKOtNLZlBQE1PSP3CFTDHiBoVP FwKEGsOQxlMREaGSYxuw6PTNEkFVY8QEEuVITmFTQjOCHtDVfaQTLkKCyuXUQqKYQlCPJsWY4PLxMoWY XtEIXaWDphYSFeULQzxo7QNDAeJCXfWhE4GtAyXTAz FUNbOZqwQPPcWHEtZOFdOKCmCWLdYZ0FFnBsFIMrZKP6VDJlWZXmQLAkeu5OFADrBJYwKTyoMZHdFWJb GUAcHGjlVGNuXPX0WgWoOYDaDUWnRK3ZTbBeTZDyHVM9JqFbCDDbTPOeer9JVVUoTZWcMhDaQfCyWHGl YMRoPEefHJOlQEE6GuE3MODyCJLbQN6ZJwZjPEYoDH s8OBvkMAVmNJVqpo1KQBSjRTPtGYo6DNVqRVFeKPHfQGpzCXBbFPR4TRH7DCOeQBOlHX2TYzFnKIIaEM f8ThhwZQObILAspw2GLDErNHZpQBGoUJFcOHEjEGPwYOvcSXUeNEWuWbQ6GVDhKYWrLH3HWgAdUBWtGB FlWuJaIEJdSQMvax1YANWnGERfHWT4RJZuOKExQKCe TLcpWTTtGQC4KtWjZYWqPUMaTJ3NTrXaUDYlXDR2KHVeVCPnISVrcv5WINOmIGXcYtE9STJoBBZqVXPc UDqgOBUtPCTuFCi5KBPcXOGcDR3DAySnVZXzCxB2NcRmIUCbZIDafc8WHNWmKGYuPuFzVUZwAPRwTRTy GEgmYRJnTFX9PgZ1EVZfJHBnGA0KYzKhNKWeCYr5Dr hqTCPyMPSxke1SCAFpQLV0RnM4DLHqHIHaHRVxCLdlHDDnJABtXKA4VZWvHHLlQM0DHbPqKQUmKjWxRA HgRUSeSCAelw1KVPIdWNI6YEqpQuWxZPMbCVOcEQecKWUyXVxpHBz6WEAfHYWvCQ0ZChPwIASwPyErKQ RkVWFvSTIkrj4WUYZwBEV4MsU5XMGbNHJwKTLwFLn0 fsBygKLmTTy6IO1DR9KarhTcPsMCGn3Dk092MRW4UIPlNb1SV7wmMj4dASUoLBAZRp6MDZp5E7GzTYZ9 N7PtJhK9IGWkMYzfRZlyInJaTQDxYNfvTGB+DSfkZMB9XQd6HvHaIHU1AbHdMMQ6X7GpMKWjVwEhAVNp TF4dZMLYEl4+GTtinGOioShrHEWMAhpaLUqgFJpnQSAAEy0E ID Date Data Source [id number] 12/15/2020 01:37:03 PM EDT [facility] Name Value Range Interpretation Code Description Data Morena rce(s) Supporting Document(s) POC NOVA GLU 116 mg/dL (70-99) H 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 No significant other disease. Repeat cath [...] mellitus History of herniated intervertebral disc Hypertension [place] (myocardial infarction) Sinusitis Umbilical herniaPAST SURGICAL HISTORY:No [...] heart attack, stroke, oreven .Leo Hylton M.D., [facility], [facility]ENTERClinical Cardiac Electrophysiology12/15/2020 8:57 AM Name Value Range Interpretation Code Description Data Morena rce(s) Supporting Document(s) ID Date Data Source [id number] 12/15/2020 08:50:28 AM EDT [facility] Name Value Range Interpretation Code Description Data Morena rce(s) Supporting Document(s) POC NOVA GLU 107 mg/dL (70-99) H [facility] [place] [facility] CLINICAL STAFF ID Date Data Source [id number] 12/15/2020 08:46:34 AM EDT [facility] NT INFORMATIONPatient MRN Name Date of Age Gend*PT [id number] Dilan Kirk 1960 60 years M IPPT Location Admission Date/Time Visit ID Attending ProviderHEMODIALYSIS 12/13/20 1238 --- Crystal Neal MD([id number]) EPI ID CSN Admitting Provider [id number] Crystal Neal MD([id number])CARDIOLOGY CONSULTATIONName: Dilan Kirk Gender: maleDate of : 1960 Age: 60 yearsDate/Time of Admit: 12/13/2020 12:38 PM Code Status: Full CodePrimary Care Provider / Referring Physician: PCP PROVIDER REQUESTEDInformant:HISTORYCHIEF COMPLAINT: No chief complaint on file.HPI:This patient is a 60 years male who was transferred here from [place] [address] after complaining of dizziness and going to [...] mellitus History of herniated intervertebral disc Hypertension TN (myocardial infarction) Sinusitis Umbilical herniaPSH: No past [...] Social Gatherings with Friends and Family: Attends [employer] Services: Active Member of Clubs or Organizations: [...] not clear, given the presenceof a known 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 Sustained monomorphic VT3. [...] rce(s) Supporting Document(s) ID Date Data Source [id number] 12/15/2020 09:19:32 AM EDT [facility] Name Value Range Interpretation Code Description Data Morena rce(s) Supporting Document(s) PHOSPHORUS 2.2 mg/dL (2.5-4.5) L [facility] [place] ID Date Data Source [id number] 12/15/2020 09:19:32 AM EDT [facility] Name Value Range Interpretation Code Description Data Morena rce(s) Supporting Document(s) SODIUM 135 mmol/L (136-145) L [facility] POTASSIUM 3.5 mmol/L (3.6-5.2) L [facility] CHLORIDE 100 mmol/L (100-108) [facility] CO2 27 mmol/L (22-31) [facility] ANION GAP 8 mmol/L (7-16) [facility] UREA NITROGEN 38 mg/dL (7-24) H [facility] CREATININE 1.38 mg/dL (0.80-1.30) H [facility] BUN/CREAT RATIO 27.5 RATIO (10.0-20.0) H [facility] GLUCOSE 117 mg/dL (70-99) H [facility] CALCIUM 8.4 mg/dL (8.4-10.2) [facility] GFR 53 ml/min/1.73m2 (>59) L [facility] GFR ( AM) >60 ml/min/1.73m2 (>59) [facility] GFR INTERPRETATION [facility] --NORMAL KIDNEY FUNCTION OR MILD DISEASE - GFR >OR= 60CHRONIC KIDNEY DISEASE - GFR 15 - 59RENAL FAILURE - GFR <15 Est. GFR calculation based on the MDRDstudy equation, which assumes a steadystate for creatinine. Est. GFR should notbe used for medication dosing. ID Date Data Source [id number] 12/15/2020 09:03:38 AM EDT [facility] Name Value Range Interpretation Code Description Data Morena rce(s) Supporting Document(s) WBC 9.1 10*3/uL (4.1-11.0) [facility] RBC 4.70 10*6/uL (4.60-6.10) [facility] HGB 15.3 g/dL (13.5-18.0) [facility] HCT 44.2 % (41.0-53.0) [facility] MCV 94.0 fL (80.0-95.0) [facility] MCH 32.5 pg (27.0-32.0) H [facility] MCHC 34.5 g/dL (32.0-36.0) [facility] RDW 14.3 % (10.5-14.5) [facility] PLT 111 10*3/uL (150-450) L [facility] MPV 9.1 fL (7.1-10.7) [facility] ID Date Data Source [id number] 12/15/2020 09:10:42 AM EDT [facility] Name Value Range Interpretation Code Description Data Morena rce(s) Supporting Document(s) APTT 134.6 s (22.0-34.3) H [facility] ALERTED CRITICAL RESULT TOBILL ([id number]) IN [facility] AT 0908 [place] 12/15/[place] [id number] ID Date Data Source [id number] 12/15/2020 08:23:57 AM EDT [facility] Name Value Range Interpretation Code Description Data Morena rce(s) Supporting Document(s) WBC 8.0 10*3/uL (4.1-11.0) [facility] [place] RBC 4.77 10*6/uL (4.60-6.10) [facility] HGB 15.5 g/dL (13.5-18.0) [facility] HCT 44.7 % (41.0-53.0) [facility] MCV 93.8 fL (80.0-95.0) [facility] MCH 32.5 pg (27.0-32.0) H [facility] MCHC 34.7 g/dL (32.0-36.0) [facility] RDW 14.3 % (10.5-14.5) [facility] PLT 95 10*3/uL (150-450) L [facility] MPV 9.2 fL (7.1-10.7) [facility] ID Date Data Source [id number] 12/15/2020 08:17:35 AM EDT [facility] Name Value Range Interpretation Code Description Data Morena rce(s) Supporting Document(s) BILIRUBIN,UNCONJ. 0.5 mg/dL (0.0-0.7) [facility] ID Date Data Source [id number] 12/15/2020 08:17:25 AM EDT [facility] Name Value Range Interpretation Code Description Data Morena rce(s) Supporting Document(s) MAGNESIUM 1.8 mg/dL (1.7-2.4) [facility] ID Date Data Source [id number] 12/15/2020 08:17:25 AM EDT [facility] Name Value Range Interpretation Code Description Data Morena rce(s) Supporting Document(s) SODIUM 135 mmol/L (136-145) L [facility] POTASSIUM 3.4 mmol/L (3.6-5.2) L [facility] CHLORIDE 102 mmol/L (100-108) [facility] CO2 26 mmol/L (22-31) [facility] ANION GAP 7 mmol/L (7-16) [facility] UREA NITROGEN 40 mg/dL (7-24) H [facility] CREATININE 1.41 mg/dL (0.80-1.30) H [facility] BUN/CREAT RATIO 28.4 RATIO (10.0-20.0) H [facility] GLUCOSE 94 mg/dL (70-99) [facility] CALCIUM 8.4 mg/dL (8.4-10.2) [facility] TOTAL PROTEIN 6.3 g/dL (6.4-8.2) L [facility] ALBUMIN 3.1 g/dL (3.5-4.6) L [facility] GLOBULIN 3.2 g/dL (2.7-4.3) [facility] ALB/GLOB RATIO 1.0 RATIO [facility] ALKALINE PHOSPHATASE 50 U/L (45-117) [facility] BILIRUBIN,TOTAL 0.7 mg/dL (0.0-1.0) [facility] PLEASE NOTE:Total bilirubin results may be falselyelevated in patients taking Eltrombopag. AST (SGOT) 969 U/L (11-39) H [facility] ALT (SGPT) 3334 U/L (12-78) H [facility] GFR 51 ml/min/1.73m2 (>59) L [facility] GFR ( AMER) >60 ml/min/1.73m2 (>59) [facility] GFR INTERPRETATION [facility] --NORMAL KIDNEY FUNCTION OR MILD DISEASE - GFR >OR= 60CHRONIC KIDNEY DISEASE - GFR 15 - 59RENAL FAILURE - GFR <15 Est. GFR calculation based on the MDRDstudy equation, which assumes a steadystate for creatinine. Est. GFR should notbe used for medication dosing. ID Date Data Source [id number] 12/15/2020 08:17:25 AM EDT [facility] Name Value Range Interpretation Code Description Data Morena rce(s) Supporting Document(s) BILIRUBIN,CONJUGATED 0.2 mg/dL (0.0-0.3) [facility] ID Date Data Source [id number] 12/14/2020 08:12:03 PM EDT [facility] Name Value Range Interpretation Code Description Data Morena rce(s) Supporting Document(s) APTT 16.2 s (22.0-34.3) L [facility] PERFORMED BY ALTERNATE METHOD. REFERENCE RANGE = 24.7 - 33.3 ID Date Data Source [id number] 12/14/2020 04:54:41 PM EDT [facility] Name Value Range Interpretation Code Description Data Morena rce(s) Supporting Document(s) POC NOVA GLU 175 mg/dL (70-99) H [facility] BY [facility] ID Date Data Source [id number] 12/14/2020 12:31:36 PM EDT [facility] Name Value Range Interpretation Code Description Data Morena rce(s) Supporting Document(s) POC NOVA GLU 105 mg/dL (70-99) H [facility] ID Date Data Source [id number] 12/14/2020 09:18:33 AM EDT [facility] Name Value Range Interpretation Code Description Data Morena rce(s) Supporting Document(s) POC NOVA GLU 153 mg/dL (70-99) H [facility] ID Date Data Source [id number] 12/14/2020 08:58:22 AM EDT [facility] Name Value Range Interpretation Code Description Data Morena rce(s) Supporting Document(s) &PDF [facility] QSXKKq6yNeFHBsSx95/NYEiaTXUgm5KuSYrqLFp9GExaLFLyW0MgwDclTBjJAaCNLK8XXN2ZBYbXGObI yZW [file] yuX9hxAFbuUCW3V59V1y9a53991d345pY4hNommqLM 94JLVfJCbWzvSFGaSSbPphPDpcZgsnyhU5GSlYBKI5urr8ogX0pz/vein pumper/oiAXSKIc7qbvBjb7G36+18K [file] AgICAgICAgICAgICAgICAgICAgICAgICAgICAgICAg ICAgICAgICAgICAgICAgICAgICAgICAgICAgICAgICAgICAgICAgICAgICAgICAgICAgICAgICAgICAg ICAgDQogICAgICAgICAgICAgICAgICAgICAgICAgICAgICAgICAgICAgICAgICAgICAgICAgICAgICAg ICAgICAgICAgICAgICAgICAgICAgICAgICAgICAgIC AgICAgICAgICAgICAgDQogICAgICAgICAgICAgICAgICAgICAgICAgICAgICAgICAgICAgICAgICAgIC AgICAgICAgICAgICAgICAgICAgICAgICAgICAgICAgICAgICAgICAgICAgICAgICAgICAgICAgDQogIC AgICAgICAgICAgICAgICAgICAgICAgICAgICAgICAg ICAgICAgICAgICAgICAgICAgICAgICAgICAgICAgICAgICAgICAgICAgICAgICAgICAgICAgICAgICAg ICAgICAgDQogICAgICAgICAgICAgICAgICAgICAgICAgICAgICAgICAgICAgICAgICAgICAgICAgICAg ICAgICAgICAgICAgICAgICAgICAgICAgICAgICAgIC AgICAgICAgICAgICAgICAgDQogICAgICAgICAgICAgICAgICAgICAgICAgICAgICAgICAgICAgICAgIC AgICAgICAgICAgICAgICAgICAgICAgICAgICAgICAgICAgICAgICAgICAgICAgICAgICAgICAgICAgDQ ogICAgICAgICAgICAgICAgICAgICAgICAgICAgICAg ICAgICAgICAgICAgICAgICAgICAgICAgICAgICAgICAgICAgICAgICAgICAgICAgICAgICAgICAgICAg ICAgICAgICAgDQogICAgICAgICAgICAgICAgICAgICAgICAgICAgICAgICAgICAgICAgICAgICAgICAg ICAgICAgICAgICAgICAgICAgICAgICAgICAgICAgIC AgICAgICAgICAgICAgICAgICAgDQogICAgICAgICAgICAgICAgICAgICAgICAgICAgICAgICAgICAgIC AgICAgICAgICAgICAgICAgICAgICAgICAgICAgICAgICAgICAgICAgICAgICAgICAgICAgICAgICAgIC AgDQogICAgICAgICAgICAgICAgICAgICAgICAgICAg ICAgICAgICAgICAgICAgICAgICAgICAgICAgICAgICAgICAgICAgICAgICAgICAgICAgICAgICAgICAg GCTuPVJnLANpZKZoDUh8N7kaKVDqESVsNN4wEOv4Mz8+ADaFBaIrVON8ucUkoL9AIB6ag1AjKLwiZBNo t5HwGMj2FO2RXPZiKBrvNH8BPJomhm0ODFPqLKUofV HUp4xfJkYjMJM6VAGuMmraBF3YCEHlU8vfsvLkOFXrIGMHULilJZMDAP4DXcOnS0LxeZ12MUBBRp4+DQ kotuFeXmyTQhS7GIZbs4WkACc7LH6REOFjTVibIZ4MZSYelD9wXLysYB9MKtEbQJIdKQIPUoWdI94qlQ GzNJx8W3RoSfFtWINjAeysSUVnCPmpZgFcGTMgOfOm DQogID4+ID4+EZvbIO6LDAybpaAaGIQyLq9FWKGgBPZ9RKJwxFSnBwBjMKYSVUelGT6NeCOqBTX8vO4i OHboJCRwVXIxC7mJIyPbrQrlWT61aCoxqcQgfQJrXVc+Gf4YVR2fg1MsPBe0gvMaXYjfDHB4QOxwAGCd WZAsCATmHCO0YZC8WQVMFgEtOLFqLOJwNTdiTUTeXA Plgn2RRHUdMCVnQPLdRsCzWXBmHBXgRNdsJIRjITD0XQdyZLAlIQOoBX4TSeGnWJBiRVXsTIqzPYIwTB Tyej5GFKEgKZFzJlYbGSKoECFxESCcKYjqBHSgOGChKwN0YLOaXUPoMS1XFkKoNWLfCOD5YQOnQHBhEV Ijpl4TFGOrRSIbJRq8KHHfINAaDJWqLRshPUFbPCB5 BIH8CBUhGXPvJU8UXhKcYITeZLKqEUVsPIMbXIUfgw0WPIMxOEDcOeHhZKIcIBZaUGQcYJkcWPWcCAC5 AIreGLSgUJAcIX4ZIpTqCFKdYJtwBBNfGPGtLASaui9DWZZfWBPoCoF6OCRyKZWsVUZkGYgvTIMcTRNq FKI8TOKxYBIoDH2ERpJmANQjHJB5GOKuARTbAJXfkh 1SNNXiSXJwCpv1TOHaVOQrNIViLEhrBNCjQODwKqJ8TNRiYVNrSP9LYxToYJPsBJQaMEVzOEVoTVEdji 1FGOMbXBFgLIN1LJWdMSEeGOSxFZacFWZfHHZ7HTl5UPFyPBAiEZ0KXfVaEROkBKJ5GCOiRWKeOGFjkd 6WBKLsUVJyJZfhNTIvACEfLFBsBIveREZiOAQ5MUz8 CPUgTOErAF1NMhWfCLPmEjL1QzZvGTDhXNLcgs0NSHOkKXCvHHu7QSToLUCtNVWpUNu5dgXahQFcCVe1 UE5NY4UvhmYrYokMUs5Bv640KGE0UNCiUw3ZQ1gyXu8sMEIgAKTDUr7FBJh4GFHfBiydMLx1MLMmSnW4 IOK4RBYpFor3DjRhWUmyYVg+PPtkXKH6ThA0VIgyIk W5DUR2QaguAJDpADqkMcUlCAHtAW2fYYYBUl2+TBkrtTJrlVmyNKAKLrA8JNXmGVrlKWUDZd8O ID Date Data Source [id number] 12/14/2020 08:33:38 AM EDT [address] [address]Vvmuqxd Name: DILAN KIRKDOB: 1960ex: MOrdering Provider: GRISELDA GRIMALDOAuthorineno Prov: GRISELDA GRIMALDORefruth ann Provider: Procedure Performed: / US RENAL KIDNEY BILATERALExam Date: 12/13/2020 16:01MRN: [id number] Number: [id number] Class: InpatientAccount #: [id number] for Exam: akiTechnique: Real time sonographic images [...] CONSTANTINE JANG On 12/14/2020 8:33 AMWorkstation ID: [id number] - [id number] Name Value Range Interpretation Code Description Data Morena rce(s) Supporting Document(s) ID Date Data Source [id number] 12/14/2020 08:31:00 AM EDT [address] [address]Guiimhn Name: DILAN KIRKDOB: [birth year]Sex: MOrdering Provider: GRISELDA GRIMALDOAuthorineno Prov: GRISELDA Reed Provider: Procedure Performed: / US RIGHT UPPER QUADRANTExam Date: 12/13/2020 16:01MRN: [id number] Number: [id number] Class: InpatientAccount #: [id number] for Exam: elevated LFTsTechnique: Real time sonographic [...] CONSTANTINE JANG On 12/14/2020 8:31 AMWorkstation ID: [id number] - [id number] Name Value Range Interpretation Code Description Data Morena rce(s) Supporting Document(s) ID Date Data Source [id number] 12/14/2020 07:45:05 AM EDT [facility]FORMATION[facility] Name Date of Age Gend*PT [id number] Dilan Kirk 1960 60 years M IPPT Location Admission Date/Time Visit ID Attending [id number] 12/13/20 1238 --- Crystal Neal MD([id number]) EPI ID [facility] Admitting Provider [id number] Crystal Neal MD([id number]) Attestation signed by Liliana Harmon DO at [...] rce(s) Supporting Document(s) ID Date Data Source [id number] 12/14/2020 07:39:37 AM EDT [facility] Name Value Range Interpretation Code Description Data Morena rce(s) Supporting Document(s) EKG [facility] AOENIg9hIpQLXoVux8DgApCrJWPmKM0tuya2S2A7uVCwA5DhiPKpo8yjJ8DbF4IgBJQjORKJCE2HaEXa jb2 [file] HYuHTf363LAHYrTWA+erector operator+WxRQNWen24kVpvPyJc7UIfSlZNDiOmktZCdy589SWZJ1wsComKjWjBjZDV oIcSHo3LxgJFSAvHod8pYrMavZGxFOD1pOm9hf3greB+zxFsyRHC16rXhrFerUt6qhH7EM8aptmHDNhR a/ZBEhEh8zDNnnvP/LErB6Eh5sMOj0G7oZ1r6KsILq oLJ+uU2pPoBwh7uwUxyHoaIsoVvHtjsgggWaU+exeW66XkCVoaJSZ9BA/8E3/x90UA4Qre3px/cjLiCH SpU8Q7uO/4JzrwT/eZ86E7gi4cBL19u6Fv+SJeTizrsJ26oEuWU0kT711q6NjUK6Vv6y+8iT/wNlWarA eg5KDY5aFpw/kBf6GL8MllvpJMioaNhkMx+ERvqoMu BnYI9BPUlbi/6Lripc9mLmfkp1751NoVgaxoHV9BnHgpLefotvmHYBc7idrpZuJgSTwqN7g5qJMxySlZ wwZ6mGhTUxOU8KqFXmeBho9AQaYBGJwQ75B2QFbBDDtKdwJBxaatEC6156m4nln61jp5PLM5IycXc8zN Jps8l9StYfR11IykcL5OFhdaZwlwDf4Jg21kSBTi2J ZRPM8N5/SatuUncJ2gUFtFK1jfwBUgpnOYwBQLZqngeow/vT2zHo1FGPcuS2neG8bzvzSM4dS986fwCt Hribmb+gSEMSDdRyoBF7x2C7Eg1Dm6H8p02Cm0clN8HwiH2RjqU/OPH0GoS+auONEVJ/xSwKG1NJqubI hcjTukorXxAmhqr6SohLgBgMvTCH7Jtn2uSoGYtUVZ B03y1Tuh/YGrDlztQHGiu/oDxYnuagfuylF/2MeG86emvvwQFw7CNMSRlvic37u92K8nAXa7HGIXnPmS wzqHKc4OpXstsRISA6sLXAhgmMySfafFYPTCmeGJN9UFAT4m9ObqTA/qE4/6xKP+4MgtIj+6Klh1B2o0 7mLckI4ZGa1aP5CNIWg2KplLsXyfjqRLhMUaWSbdCs 0jdrA/vJK18Pqt/mTPtD+xg/3JXNiKE/sergeant of officers+P+xB/ixwkmnt44Ct8MM/x2yP1Fhhd7qjLPtDdaQTGVXD [file] awb7lzzcurD7LM0HG5UEoWJ1x3cNWSm0A76S1W/Tiera/KL4vY5rEJzf/yxxAEpfyxfjmxAZMS+u2r5Yx tD7pgaD2nwwD+Xxud7MNV+OKRweifiw5dL1X75CvbO 781azrwo1f2uDgOA0LuZ6tvql43aZ7668vEqo8LRktk6N8Cma5MR7lHDVq3xSuNfcmJ30LabOfp3G2bw m0d3hHfKZ+FH6Oj0R8do9Dt5Z+UX7sx4mnoMX2yE9UhnQV2kS55UDpAuBxlsuDQCFB+KB4ymGwC/Cwa7 JX0cW8la9M0HDdoOjZ7HIHzpMmwcsv+QrE483RnThu LxVIuz5c6kaF3D7r0MthlUf42n+4itV5366Uo0tzilKEg3G6HcEeViP0f+p3B/XSeLxvcXrYnA0h/lr1 hE/M127B/Uzewky2r3gaGVgZ3nMIyH17UrrV+5S2z57m3Teg6GMpJxoO3sD+R0j6nCdGjoqk8rz9rPXQ mAG20omEhls8OX+uMeZszC0EAoJ32YuunG64DjWu0p 4pAssTINCL926wlT30TMrP9lGqtl2o6pvmZREAmjKUXZt9pOFv+DVf5cu/fv5INyFeTSdXY/LF+x8mnb wx/AP3CnKKytWJzuzQ0bH7QRRUGmzl/GL4T87ENGCSJRopdc/LHryfy4tZbgwvULqM9ajKAZ+HCO6mnG vqJsfNFjIdJno30fXSy7P/sn42EoM4Mf7C1pvnq28O TPYA77XQzmY+ETThkwZO8piSlo5Ux5L2I3sOmgrxpcUH/58AO7mQ4ix9LamAooc62zx+WjVnZxusEuTr dT9tK6/XOJSYS7cSIGCtL35R0k02dgiViHeXXME51iH6NGNYhUBIYaux2u7SKMEi8QWwBiYY80sqG6t/ yxxE2k/TX5afbpktoF+WOJYvLHEsXkjyXus+SP5SvW zdiqxxVRum6YkRcNY5oG0WfOuJ28k5R/lq+I5avJMommTTAmX+9UI+K4iuuDpN1AULd/+1//6z//uC6L O7r6z//553/87/Y///commission sales associate//3nv/7zL0//Q8njn//+l6u4/MPbcSLHiz2nJPL03j3Kl/eHq1jovB9lcAJ0 [file] kf8zFhy/32xbVvufXvM/Zw9znf3pSTwuS8qv62r/cutting 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 uuE3CV/99cvXerb+lo1+1+dj5RfQn2bYUk/oWjp5qrhp43M5w/PL8sUk9aRz6aP7pdK8SviR/qoifzad nrxekehc33or+7ki29eb1cXPJq501Son3MuK/YP2b3+EElhiPk266f8E6eXHOR7/vZ5/+JkkpLad3j4X ndvfanP2+M+FdhbqG/Zga4IUtug3KPh/+6aKr07Ua1 H/r556Y9x8VNUujwqS+3RpFbWgT0MJB80+dtlPrjz0EH81X+T8pX2iqj0frExrmh40w26667kf9kja1A kWytq57jF/pqhTbp8bMtr47JxrU4U+0q9j4nM0t+C516Hd/h7nbJ4b6K2xe/1kpxfGgIzk8U9mlfv1v/ n6Zoa6lk/1d3kF+Brd5q+/KzK+xK+/t4Q7g79ES5y8 GUC7yPbo5x5f5Gm/u/4oaGur583ikkGuyI+Qf/tbNPz6++o48m9/KxzEr7/q0JE1B0DQk2iWXqxlRl9j Xd+rs3BYScbf+7s+kY/75PA44jiJrrwGgmr222hdhHktiLcZc1N/3FcifjvZ8s0Rq9n8N4iDmbVa9x2M vIBb1bWav/y5Arj7Goar12s2C85TerP8gS/ja6AS2b OD+V3V9gw4r8U1Z6H5NuI4fA/A/q1J9lHh5k/1h5FGl7ugynzqjt+Y7OpF3+vgyx9R3hWC5/Yd26Wh0a 6RK18t5k763wo2P3T/cXg+//IljZfv/h1pbTy+jc8iqIGQys+//RIzdck701jD/FiA93l+/stIJeAc38 cvluPkkNNlJNfHBwwtKSW3m1YElr669kX3GcfxTvRi nXr+up6aKGG66mHD8d9bslMj1809/Vq4GRf35Mojft++4pgWq8347pxLkZi12wn4ewhZ+uL8w8gy/tpZ ZcP4y9/MUmAzPdB2FsrBjG65YtR29/w2fxQ6Os0dLU31dEXj+w4rHV7c6Pj1YrZ+bUq3bmwv3bjnmBSA pb/P52v/MPttQy9344L9Jntjv1B7R1hk05dd2sjYG4 /F0zt/p2kiBw8Lfu/9wRprs2i86fYP2Tc79oBBNSliL357Yj+z96/ARw806SBMB/N4zDD28v95aKYcgj a1USyaaT70VxWwg/vxl8JJ9obVOdYHe+IOUnPtnC5d9bYVT67MjavsIlWNes+o3/kBZ91CuomfTI8ga5 qkaj6Nxpi1buwpcOHU/C02SIGS28NF68bxMd/w3f4/ 6eMNfish5k1tJ009JU//6XaK36RKz2SF/QK+4bQTy02N75U6jtrB/TkzQ1b8fdt9Nn/r/6NrtlHnvya+ bfWxtI8fkZIx/q0h20yrZ/FVvasfbtGN/frv6nk6Ygz7OiqvT70H01o7aOMSx+Nop+/vi9Vx4EkPcymB S0297eRpg/yulsZAYnexN57serXAM/ndi6+saAqv8y y7+NeZeTcs1vn3+WtBMvxkbPQ856293l117g4ju/Vmc0qJf7OMAoZegct++kF+dX09Etc1v8mjs1hjR+ rewRkL5vBI3t8Kk8688Sxaovs/Q8388Ry+vhYYr7/H+c75n0ix8fwVk7H+7W/RdkAP+qiy8iRehiov/x gn0mXvQ7ToFQrNRNz5SIBB+offEaCv2sPZ+/3iq6U7 nz/1p47qLbJZeBI2CeOqrxe/LwYA64VVLcyK/Fo3Vg3t5ya03iwb19f38e8/tbCotTdHz+4XcNU0ZKIx b06h3Nl1ws5cZlWlrknOD0zy4naA/1Id4Ru5w8X+I/8gv/lXc/R5NZN/oPWSv0dGn1huRg2wdtDidswo J/Lnd0/W2Y7Ex60/ppKwqEnf46Xu0b/rRSp7iYzw5N 40a72J5DPqrMz/ghlIm3haO43Sn3F/lX0B/7qzui8TY+ue4rn2pbOm1qmgm+hv8a+rFkfgYk0U58oF67 V/I02SncSzJgWbgFG8KvwW/Z39/zsn+kuH18j2pPoi0sP/47N1xo7s9VBxbM+5Ud+Rj/9Hgqc4Y7/Mariela Af/V3o72p+3FwLs4rJ33w4/IeZF0X6ddtB+evDgXMt fSy3Wf4/RxPt2L9nK/Lvd1UQO/DYezr8bT/65Pm8VDUkhH58bDwryOk+1bT+35+mqI/+Gvpr2L+20I6h kgNoFAl4hg+mob+G/hrWs2F+E1/rg7Mn0K0j20GtsphTdOL3wP3FC9RxUi0N/tiBbg8Tn4v+Dji4p27w E19V/kb7G+0esKi5xiwY7+AuED7s9ixEj5223Rlxq/ 5NfJXtJ//bYEj3WhXW+xpLt1bL1tc3ckb8Wj2kkj86MtpKXg7gdyH/nbBqScv6Ee3Twgizk8A+jy281U /yr6o++fvpXu54X/iRlm9FaweS/h70F/wifmWc48uo0zc4X649JFTY+re4ManEok/JEfO91bvug6T/Bt Zz9P/oQOrKllvh0R7NpY7AosZY/Yjk4tTARfzCDyxZ gfUcuI+n9RpJBtHhz9MD0q4DnTJnz9wrAURAp77KaceXbLeofJ/hYis8k3I2gtt9S/b9ohbbRdBdsFmW 8xoH+Qft3/6efLfndyW+yxkHs9GZNuQ5/C7p+9iZU65KZ3Nv8p4m24Vlysv2a/4K+jm6sdC33jb+zpKW Rq1jqoSP4WVf6//uuulr5j1j7mib2jjIFeMrtv5/l/ R4oYCyEtZW3hwDRe49rYF/tcC/LllHmzTdIo7xM/FVjoP2/l2K/gJfLeCrNTG/ia+xdLBM1nBp+z5as/ mxC/pkXsbo8LTuykiWb+YzkqLcBs41D+R4F4xMNE+aW5wIe4nM/Ca+ikeCy7mwaqv5egNpVs2V7TUWiV At9Hf1+zqV8852HyziiK/9uzC/wFcL+ErFi7OgT0aQ /leg1SYVXwmj3i/Svz1KyqIlEJm6dUrkWe9NMruzRl3lEwl/8fMy7F/ZciblH5e+Al+frFw9I1gj9eC8 aVwYm4sJ+Wv1la8ychEy1xb5aCSnebDel3+825U3MyK75hB5La9iOkz5XD4vE/7sGPmi9d2658/Ebenezer+8 79+V+CrHyjG/ia+BvrOApt20fwkL/Ca+nivlG9ypyp 0uxhaxYm5tfyj3Ed1idHs114gTw7P/F1+lzOLq/uvWekb+ladcnsxV/P+ef/8AiwaOeKC7Sy3ObrC+qv yWp1yV/5KbXI1/1UO9gthpgLotNOy7V+34aNoc+Xc7fn0CRs2/nDB4G73BI1Ivw4+Myat64fM3wKEztL D00nrevsk4lervxmY+A1+tiCk2l7srnq1S1naiLJ0q CWy10n5xS8EFI7oF+JqSrgI8l15isgLqe3RVHO/0G0al9tjLh649Mb9+Gs+qsa1484svhQJ/kKj6a6Gi 87eD94j0+n/RJwMIX6jI0D9/j97KIp3rcj5nU940uzK64eB/GtfxrhN7HrRpsEGyajO/kYF/AdFbx1or SSv+Vdbv/1+T/l+fwO4gMmpcmTUdY82c0j6Nio9/0L T/611or8dzm4dR076jp4TD/Kurpf/y5XNdlVhzAY01Ips8j+13bltapu7/+Wfmu7/+fs+//LvHr3b+V/ /XXy/aDtq/+/rxGE1iupvzh5E+FXr8Pc/ev1ctv/bj1cp/jZ534YoxF8900mRhp1ac0xeyehxzG3cuI3 vq+WJ7yyb2tH++shbYl396+F/+5T/sNP49EbgZA23p rkAYc4L/fdXwv+fLf66+DY6f7XjzJbs+onmlvxI364pQF6nuH3oZdAf1a9Kc5Sk1XhUzyg+r+XW2+j4y yAdtbbTT+ea4Tj6c2baZAs0rt/BxoaFvqvizt4q1/eIHR1ms+Gvp3SjY+Mqs/jcSSkHu64Ik/zVbaN++ +6BNL1Y20r6y8/vXgK/M+v41a/xs1v/7V7v+7S9rvG G78bPt/t+33fqElvgqadjadCa+qxm7qqBqLHzGu2audwum9za77v62eat/9ZxRPeg21grb3Uj5ywNg/6 Cd1t+4ivSv/yXR81GyZbfrVv2Kj0xbxo2smKTwtR8ZS97g2CmQW773mT0wiEE4PWb6/p0tF1/FmBn92k e0s1xWN28P3c5YB2+5leOdR6vH4CKfEwlZf5lFiD6h yteeA9lyjga/8+riq5d/+7faIzRlwRsyYL6HoL/R/u5z9aC/B411FiIgmNd1scw6kLMnUQ8PfzFeSp9C V/Dd48fvf/eN4dbyX/FVrv/A+SffvcfGc9V97qvf8baLzBZa3o2Z7efiHf4RTKE8WswiAcHsL/4ezZ/c o/DJBy5pc8+bJb7WRy0/3yFl237+lWZ+79fu3fobO/ LZMGq1L/kb+a3/nKRqOiEBjwdGX4PahUMEA86C/ZaW72/p+2hLy/j7ZZ7Paq+qDvoL/fYN/fYN/fYt6K +yu5UVaef+3ZY+wiaog0wE5i78B/0OcFSQl8G9MP/27QnqG41fzgbF5obb4Q/lxaRBl05wK36ofKvz1t 3+1Qb/aoN/taF/cgXo2DZ6+z7aGmi/+aY44o26xf++ Z//m30j07x6+1Qb/as/m52zoX+3Z/Oc9mx+6a53QeVvy1JaZ59l18b57kM91OH/scygwk5vnynpdz4Y+ 5SM7fZ2I/xPa8vS6b6kc/r7b22P1TSjR2p7xvh3JRp8wG+hcwOp14Z/2wnoG/1trglueSw8tH/PrtqG/ 4aqtG69z6tl04aysmTN/yGdZC5s2XmBy0Zj97OPeHK +G+YZfI9anapqrTEj3j11ZoLv/H+2N+v0Mm96ZR+7d/Bs7M19go7xacn6GLb7vlBUrttawwax31m/d/4 Xy1mB3k0+3IR/cG/3drU+6plTp7Z/ayb/KcU7+3Manwhb51DVjwc/7d0M+wV1aWunE+pE50l4yX4+99T m4w99g3epl858F2//7G/RJ9c2R6zi/9/fB/C1GM0vj t++D+yj5V/nd5F/g8LD5CnlwP/g5pY5U2nF13/mFmPPfak5N9jlszV6P5a+PT/Ibut5aLoD3Z/p/fwfW M/TbN/TbdyjqY/4I5v1lmNNd4o4FcUokcByGM1l2q+UgjkZ67SgkE5Q4KaVbuX641PYZ87qCe53sU6I0 rQ/nb72hXi7/Hg6vA17/HfjKR/NzfBi+2/Pro+9fh3 zQR9+/Plr/5hgRG29E0ZSrZ1mLTacvWs6nQFfO/f7/hLs17kN9MUuKhkb8X/CYT342+Hank+1LPbbdB60 +Ivu8OfXEgTPm7ixZpFov1etm5Ua371axqMdsQjjj2W92AA8vx8l2yF/8ShondjmuJ6222b9ZzC37c/Q M6A4agctyAil/g6vpWz8c60wSMEJhXf/K7M/H0o550 kcjavy926kgrtGs9//pc+G7rA/s0tL/R/d4DHC68Yo60awzHCgNiptn+pCf/KttcrR/rq+0SwRH6uAs/ qvLTPiXzb3+rzu3v/ef1NVG/2sj17bn6waS+Ji9x1wqCcd0zfYk6Kes90NKt6o6Ja/gq/8C23vvgbh94 67k+V94IsiT/+Orc/1C/+Orcf0+/+OrVv/zJy//0i6 /a59jmxuc/ZLfmtzvwlZd+e34L+9ewnq3/w57ujoQuVmn4g6yaZ3wjogoW58L/sqz/6+/IoLhy0el5vJ ZXZMblizDlf8zaZBk93pcLGmk4FdI/F1/K3RlCNqC91cRXT/fFxVczx/biq5f/6+97/kY0GzbaK0/Na+ Ttqd+q6MtkX8T+fZTrTE6iA/44IRlCw2S+Vx793Mjj 8342HngA3v5HS3+96rQ+sDv2r+M+6y7j5SSgahoX/OzQ0IXjI5i012i75x+Y05874U/Mzsd8h03tFA+t /+uc2aBdXG8Howr9R5ykfu4pGF7uC7htp9w+51o87bmnL9H+xncbb/hxtHNQ/6B+3b086Qt85rffF9Aw mLqTi332wl7yM+uWy7WDOE1DR+V3E19V/kL7uI/CUH /zy1GgaRgytM/o/wWPtk/xCLTf+JeINl2udlD0Pvry4/eMxpNndH/PaPvfA/7VAf/qAF+h8wrBC6t9nD 86o/+KzuXQ38syAF5Dz8v7nb9l+Y5xZy5zi3lc2w/gSO/fk/bl8iM0rg29nf/hRO9T6i80ubJ/7a2O9P pck34adH7t+6DE4rQt82Bp0/Edgqtx3PA2g8U1nF3o EedTVa6mq5pmxH+cmS+of8+goMThqLA03bdk9y/+qdl73ngLJ34mc20GGsI+7W+1efsr+yzOh5x1BY/t JZPOwHej+iTO85oeco3Lg6t+bHvYk/db8bgJx2b6cVVaXp9qpU70IATrzYJ1GavDF/T32dkv4430WO1H uQa+PsCo7ogzU/t//yys59X/+2dh/t9k35Gi2Ymbd6 5W48kD/tVZC+8v4KvaYJo/qbvC9ww+96w+e03sm8PR/Q72h1ULz0D86tiw5Ma2ylf8w4tCP5mQSqmSAr CvjqG/hv0L/wwH+OxGs5Jxs33Tk3oebsxbbXAI56uIE00aPsNMDK+Tt4G1xa+V7e++f0/mu6oIdk9vwd Mn8vv+Pcm/yr2Q/hlyL6R/htyzG/t3b+Rj/ya+es/I //Z30bRz7OOsx49h8E4amceaCU48MUoDD/hnON7+N71btpNs9BgvG/rtB/LBU/HHtAu1baCC2yTpW7qF T8kHM7/lgyflgznXF1+lvsG5+Crtzc/FV57ze/FV/guci6/y3+UciQRUo9u//mg0gtjd8KZALyf55OBL /+jw7r143Q1/p/o06sYhOXn/sGRU5gVNKby04BxiHj 8PntP/g+p6d9SVjK961cChX4x/0fycE/2/i5R5TZ5sqhEyZzzA7lttF26H3WF8p/1Ey/dPONrp//0DfH DZ3tT2Ooo4/6xw5zmT2eyypW1W/FgSopbrnB34/upjVkoj22NZ9qtDXPU4+Dxqs1jDeW2S6HgP+CogH4 zCV/nc51WM/l+Ii6/sbSvz1yov0RMPCwzfsB///ZCJ /LZnD+n//QC+GdFqyD3bP+DvuF2IJN9cHvK+c0IO6h/fPd53qGsboyjaSX98ClN1V6Lnyv7g/T7KcUL4 bp/Pof2/ENr/c6Q8cl7B0vVBr/k6RGz1IQkc+reIieO2HQbQx9k+QzTq7qeA02x49w00BVmUwtTjD1xH Ww45AygK7n6W+Kqe+/1A6JbBpDK4zA5102kf/Y189H x1e3QTfc7vlm+ribx8Y5s7qaIMe5zU+HlCq5HMf8g+lWZ9/y75TC4DvLy3H5GbcH5R/Ur+DeQ90KUJ2H lop+5IKuvsuIWjJCr4q/MPhy2Is6T/lqj67pP6/4HzxGQyDD80tlowpht4WI6730ni/qK0axO59MqK67 xp0kNds745TzcR4WvGg2w25v+L9H+D548Jt6h4/0Ls /l+Z4io3hvBkOKyb9/6qgYXYnMM08iC6aKD+ZkFl7LvXyv1Ipo8+Clarke+m4U4JHhzxuq4+38wHPsX/KuA u7AvlPzg7clvSU+9/W+T65bVtXPon+L98gcMzhd/J7z5G+Eb+xcT5L8xAV2V0I/CA/S9sWsTvtjN/q8C 8aD2mFdO9kM2lQ/PRH7Lj+K0/mPAVqwLCzU9TXfnL/ cv+IoaOZptxsGk5CxbBVdk/5NHpy3B6Y7MqcwftmYP+CSRXekIKjV0BLNtIvR/ma4PQmmxC0cl/ZwAvo eumnJWhm5RtP1M8DvB+VcoOt6ejmuJcg5KIMoQ2Nj6K7Pm2ndsDRs1F7Nm7MyCBsnTRyppv1WytlDy4F pIgb1EpwMVTrgcTl49l9BAx6Tfm5Qw8O7NhmQCmYSG 3gY4W3+JNv3+ZtqGdOdIsfc5IoWkU7L7Kge8t1UmFLokg1AeqjklBYExQZyMx18S5rusfYfo/SXg/G0o 8kCwPmeCuRSZX5saPJdMUb4W0N0dysS/HDnZnRMwG4AlY6i7YLVlLLYFzYPnPeCgTKcMaKP9WmsYCPRy 85bdG0Z/bj9Bv57P/I8wS3K1DapB4tKFj326RqhKDU qNX2OvdOX4MD2Q8i1C8VbA5HknQUhkL7ld6hGm+wMvypvUieirRhbvJ5vkdnWfx/DGO+Jl63eT5YwV05 NFLwLHX33McBQ/ZLdinvBCnhg0Vqfk31LQ/SIooRuyvMV9SVynsofYvG5V99R1NmIlFF9JtR69JVbnNw bu2kfIISaj57OgCcznLxi5q6G0QhRuAty1Voo2R+Ei 5jjyDRftpk2TjwZOpemB4gj09qwoyT4QSbsIbPeuM+QdjmheG9YpWDhvYPisa5gpuga4KyyN5cZ4RMxO /Z4O3/lNr9M3UiaQhY/hVjqxl0Klr/17rw0l9A7QvBddp8zo9pTHm+YvXMGr9ZY4DhxwgmNPNK4Ps3ag yX5bS4bK4t6C51TrVN2D9N8jV4IZt2pPwvZ+CVAQyp U0RV0TtZgTI9Hs7EBvQ7Y//SXfuYDJtVnYhUr6YYL/WHXX5MlUCNx9Pbq6Fu/prCJtXlciMhrE8EtR5r 5SmeaURipV7D9ZMUh+vv0xM623E0vhBZf2nekdahCdFuyQQwbNiy0okhNKocFcrIs5b6qLpVtCvdDDaB 8EGvwiEIGKECeWk/nbFRonViO9TWpKUYhoWaBWNbuI BKqt9Kc5x1i07Dypq6Mk50O4JcXU6dM+nQGvnKUBvljXG5SziLnOi/WiXAdq/Z9odjHh/77jLHFSfVgC qEmbGFVWP7AjBHFWcPjWPwqfxIOv/2IQMFDB/VabQrq7T+m6f5YEjwf4NBh0t2+tGb+zWcIxmFwHxIky xBmv9OvS1+LqALn5ObZrSq4Z2fBC3TuBwyF0YaW/4j UsfofnAXFi+bh/52SenHozXNIbjhVPtAK0ec8pL+ttIZRB+rovn/np3V8ezbIYwY/68ndfDRjXATxaSL m8coJFOCz23QT6zo4VNfIas1G+3307H0Ahg8WhMRdT2D3TJOap3/wkuVCYlS6dtelyfNAYU9wPB/hfIo 3kdyXYGnBi+sH/EjIHVTglEVX5RE9mH/ivNfwvlDv8 V+KNxdIh/vfRw/4ARavjebP6s6Y5Vel5DyGvpMGQfdV+r0lzBG3lr9F2qOtA6Q/x+sikKy2WyLctOr+V dV70v9PyyVYu+A8/+eUo/8su5Ztv3kfzT/7mlpoy6D0/leCfSWBPIOUw/5CLzxhAZGjFNR9pIM3pdm2c ityKNo7xy+OtG1eJxLr6F9W9J0Ows/FmUXBxotcYXJ jtWwLAP9mimNhS/ytSY14K9EqTylI6lB04bDV8FAxn3rqoZprbZ/57ZNUaMRBef4Qx/TZAohTaj8upQd 6viZZpxycbJi51SSw17BM/POq/lLBF79mRf13mxfi58W/n/IuGh0w9ilnJV6NE5r/+t4zedYnhYmpiaF sBKd/5P6LJeqDPAooFZ5G+1LIJRWcmf3MriFq2Y5H5 eSZwPwDfDM3tcblm9iN5LC2rq2L0fll+6u0wLS0jP2eJzCh/jwpHKga5wDaC0pib9mTfJmY9+ZJO91/Q LTnfhp8EvUw4kkm4/5QriHVkaR8aVfePFbXWoG+oME8Q/Ud8I+LE54G/SjgGxInlhP+8BEvaDFTKD/+r sfV1icX/JYJUI/ZPOuMvSKCMdlTu+NlI2V6wzZ6jHQ FuLJ/1q9HYYTL26k3hNTV24l+DlGP+72WB5duE5I7XL/rUseonGG3utgypU+9RlLq3q8cHLctp5NG4pj Bcu9WlmokcKAw2m3OvFjQZG/1ftcXvACOlr/46r9NZ/8rS9kjO0nf/Vpk4RRzmfJlLf8IbsoS2XIAFl9 jpqg86A6cS2w5/w1hS17UT7gVo7JXxDcXH7pITT+Nm zUvMjG0zeUmiyoZZs6CTMmU5+Q8L8TOkOlehssMduT5QCCJTqwJROhavspDmhee/M904D0iPMQcJU/8X 2Qz/BLACma7p3CcgweGbEa29Lof//t0TSz5YAtGN4/7nEzbavrlGlBlLoepH2DWJa7My29wt/r8G8M+k oPhs6P04xVojd3GU/hrOhrIHhq8kUR0rFBKF/0fBYX 0BBpNuWIkz1INdXLeVqKCF3Klo3ITl5xHEvSLjRaEBGwWnNL4yP7ykFab+t6sYuviuks1/64x0WSrg/M GNDUMGNbD7X0CGKSOGlPTJ1YEzLCjYmzCq8XSBHdokGQ8FdU2AVXrHzkAWtaNmZdyZ6hO9mRoT2OEwbW 43S4SRtfSIseQoToJ0xX0bXUncMMAg3jsAH5zaQbiZ dDgVaK4yCjZynbEVvruDRptihkSO/kyTOmCDGYNTzDPtC3CjJNAFUQVGciPP19ydE0jJJ8o0fKUMCxAZ 5Q3ILBe44VQlCSsWMM4gESeqOE5WSaHATveByQq5h5AGOw1ik+/gPKjYAY+SYcyDeV4VKdygqLbf3ms3 jCHC6yWMjTJkeCGyEGJyt1kYCcSdRBKaudIN0H+dLF iAOmY7EYMo71o+YVyX0yoejOEhZuHNWzAGV4IPteRB5sjOcU5JthQmeCO5IBoQgfKXL3JahRrIcBTPAh fCXFiJMG+Vii/oyBHWSB5O5mNlLnONe8IOF9K9ZuluXDDXzpNAGitEGGllJ51wQWHsM+aaoHpNvgMeSk TsgSEjY8xcXDNTEFKsOXxaHxZAuVFRGVmVQ/gOYu9V 7UH3mH5NB9ymBZG+l5RZokdTdAIFOShBquaORWxNzVty2Vr2alHPzURcyMcgzzYGsSRqtBDmguU18Q0C GuEiOBGgFeK352jqgJsmMWYucZEplekN+xKt40tmfNaeXAxt+yPAyLMzqWhUEQTU5oULYzbLK7orHSPG kEYHzEYzkQ6592HiJOL34PLG7HycL54/D8GesLgNFY 4PrkIbyaOo7wqR8W7SmDDc5nzfwMSWEIK05NM0LzvvWsM4kK4TnVhKtshUinQuLluYcpeoJ5slR11aGS q3WOrgMFc3Kcq/TQS1ZDEhok4WVOqT3sF1yvBcdGXkv09AAtU01w0NfqLqV/UJHm4JTXiwVKO6oLhb5K kxyBL4F2UaDGcLdd3QcjHEmJ5jLw7XaDBR9UFBtGPW rOwMT0Z1yCZNgOD0wTEtXZXIOjXwIsqWCd6GGFyqxzNISlBG3ZHA8sDyeiWS1tVA13lu9M2GEfhS8i/F K0pMRA9lELMmUs83UQmCQV2NmOoqzacnFDlESjYbYhgoVpBB6NCowYvE08ndiLMOi/BCV1/+Zx3QSoTL qQTuDHHdnO2SVdGB1CdE7fq9xyJptEv4nrYUbwwSiI l3FXIQYL+0koEQvKi+PNTLRp4NvHGhRuJv8qgedg3H+YmMhyALDk+pFtXD6zcyEF+1RrcZFGHu+uj1ml AjenHifFT/giKc4f6T5Qk5muQ/h5Rp5Xax22s5hrcXkQghPkDIQ8WkG6e8RFUXrhXGliIAH22iKyLRZj zSLHrx3XmC6h7kX2omY08kJj/iuig4rpZV0Ec+606W L3Bp7knyVxc1QU1SqENfCHkAQSis/Po9p+jf6tBIBlzhGCD0YWNF85CyIfYX7neRiWde0SbegDKsi1lh v+TFNxc7YnDGYR0BuMy6HWoyt/SINbjS3hLYIXApCkr5M8KKbflW3CxI+9SYJtg9JttQf9FGb6MO4BhS eVhX1yxpP3aPD+acpP3tpLB6fdWPbtcAoSQQlugQH2 2lNdRH2uqmXh4AJHIlDAY5JhUWzCJ7uAUHkgvy6midYADoQWs0McZGecBvrc2TsbTPYxTTiZRhTaf7Vh W43TkYvN8PaBAlcWsd8rGefIOksD0B63QBvHGWaJ4zsdEGhbrQgZgRGY3Glv0SfFJfuCVzG7ihUEcJiq pwKwT7R7se4uXgj48sRGxDgUQ3vCDPMlC90gnvLF8k od+1AF4y8dUDOfbJX7r1acuH/UoAernSV9IqZ6IN9J61FyEmrmqWdxO2T9W+VCgEExxIzwV3UK4OxAU4 QAFYQTo6TmIrH2efJ36LEbdHVvsRqKJTHPkTTRo1xKnOpR8YHhymxe4KEH8EYlFsA5GzIpXNEzC66xZC oejM2oZ5aZG6n+FoQWMLqANHjEaZTmkDT+yC2KdHT7 ttVV4ZCR3NuRqTm0OAia+dZU0RiVBSHGgEGxrPXDImLdDKX7UhYlUUNBcrcjnOpiLkNTsINKKzjEo50i ziH5MzmpCfhGzAkJ4OzqbPTm4rLq4OkAW6T44bGnDZT9u8aIaCs3tdpFCkTnpQxe+t1k8ghOLtphvZkU GXw6JvOTx4dfaZ6f1vXXga6UgOyg+77a5enT9VSWhX MGMZ+G9cXZhoU+uL2819rwTx6ktW3Vo8rJT5tXGEuTEyXr5rllfSKy8rbYewfUJDbaYdGa/yHkvlfqJz Hf7ZRoXRbavmgjGzh8vLXgz3hI327Dax7wRy4zK3OQpEFY49doCbpF8JHo+OVmP/uUV4jvLkiuaV1+xt k9/ZlLiUcUdipd/M8H4Bcc1zDEPqtgqn/IPcuc5/0D OaT2A8SSb9tvn9ojf5Lilk9t4Bfyrs60n43kSXCK4ytyaKSuDTdYoEBInrVK+1bvAXHaPDk0DmDrFlNd 5J4HyLlMEKQdAtAEp05CgMCAsTOC0Z4mxY1knJxwDz7RTKPq43Qt+3Zz1WtjmNBhaDRj9jC/rxHv7eGT eIHJw/SR0DG8agwXZdAVUsPHElZLL9NO3C3JJUVLPi WzGAaTUSnz7MSktXoNSfJSjFOQFYJ5XoM/vbe1FTxF+t9k8DiZnDRz38z9CAGscR/YrzE8ytywptWsM5 VEE+TbVnloG/oXN8RGbml2PZh9WiB8PD72z8o9v99qHfE3c1VagDA5BmB83TsUbLcwbTrQIasaCvy9pg Q7pTobNulsBOo3G36f4pMKdZeFI7ZXMVfTWeAuTnDx kXQECEG5M+UQKogzFYD/cFzynS2nI/wA4sP8Wr06zHso01FzAWs52hrlPn6UKYrHf6d3oqMA0ob7pN6h korcMWm/c3QmltpqL6K+DucrQyK7MwSKfHjBmvYwo9TO7SWdxaV78KgXHToOvAbEksudPYAQa31lfkAy pL2VXLmd980bxm0zfilepwAVtL3mCy9bWyJJYJ14/0 EbzyTXMaFemSkRB2cRJPMhyC2puf5xkqCKOVIBcjPyGImfM4xdZAP+OemF7tVZEjLX85eSstbsmeEpAn GAPlOBCBcYYPX3ZdXIJQ0Xy+hQpTKXla3L7gY+rA/a0QkxQMHbXDFgz0l1FFIWf7MGCNR5L9VrbcKcxM /DLbs36pOk6/BCOtMjpRQHxgSYcA0ZdwbCtVJmPHDV tPLZtLPmuhzhF9v1nnfLmaG8B2FizqtLyVAoqFyqnDSX5vUhBFcMCZtCaFu1OBMrJD/FAXpa4evKWmAw 3hdbtl8KLYC731KYeDxGksCketlurE+92C29lDvSrJ383BaBnSIOpMZQIGdjmF6SlfAPqX278IQ9BJwG E83A6J0TsXSE0wp6DCkYNRb4ygqvqgkwGe3MadYNwU F9cgmsqVDDbtA+eIZhRdISEpRNYv5SMiXaWrM7SErHWK1MjGl8iC97br2br33qLB2zHpgX8yVK+U6Myh DgC+NF0kC5J+iMfGfmLjfqLoFyrD/iHSymsdfw36pkICl5lrYNAKG5PZwFIQlXL7lYS/USSMKNPZAtiJ nTSn936ccKbn9t0fQBVkng3HZjOObAvDHqsXCXxKJO f8JmidJTeaNdOLb2NuAWpdSHulEivHxfGe3PeuGSnXqqRZyjghZlGiihYJNZYwc+XrHWoXQaZgPC0zEo kHXz0puaLDUphWoxpoqw2F8xMVaZJfQOpqVbhz1JCFC5yfEHrBwUuVdCSA9Y62tP+T0Bn+cGJnVCWgA9 FrxnJWSZjg1G0wlcJGVjzUQiBu9bgyzS5otjko/879 eB59ZAP9kcGWNyX5vsCRwbV0dHI/sXM/NNgzLlWZKwWa2vPN4JEGTqQD+ZTJSo1Z5XiP3nv4Gga47JDx yDPZKBqLn4BNsCgTnBILRkap27jKiARfwusHAPLveJRAaksUJ1QG+w9CG1oW4RjUDK9zrkN+YFgXOu+x uLgIphnXFFBkDi5F4J1vJhLmXRkixtu25AEa5hMYqj TO+55js1iR+dvWV5KCzAdIFjxNjN1RN5l94DvBQXgW5KeWMy9LLemVrfsRdH3dvhAzw+6AnSWncRzSqI MVNE47sWdmLtjArKDVTiu4yPy8stKxjYQQblm2Ay92R1bwEldELws6Ar9CNlH/qT9NA16kjfaUbIZHIR GKz39vQPp8Md9OhXpTEPIWpHx1uHSMVvPGB/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 [file] Kh/photographer scientific/zy+qoziD7Iwcv67D1K6vw9xEcEAXvocx14/u37Hz+Xv8f8+0y+izjy/nj39R/k1kYkr93NV1N3 [file] ayBTZXJpZXMpIAogICAgICAgICAgICAvUHJvZHVjZX DtYP3HL3KcKHHgFXGOEND7a9VoFNZjihlxdsdoQo2wnoYgXwq+JqrbIVBkv1LuRCfxU8I2vBSrS6CsD0 XjSR2DyANjGZniORWkHNQoWfIqWZXVEW9dJ4XsfU17DMG+WsCsYH4ktwf1ppHeNzNlSACiQGGwVPSkNY gsUVEaDAZtDQTdPRG7OAB9VAZwQwBpSFPrDXl8Kary BLQtRBHliaZMQGSmERGwVKVmPZYhLUIhZOIjTFpmHMAnRRM1VmUbASUvRHRcGD6oZtScPMEuIBAgWAPa RsY5HfHbKnLCJGNhSJZmRKWpPvTzRMQiTOYgYOllGCGeNYDbCHr3TCQrQOAwOS3nXpXfSAEtMZQnUSUi UIAfYDFeooTBYHAeDRDrROR3IOZuKYRfEHJpYKbzUF FkOPUmWHW5QCMuMIDoEE1iYjBvIRCxGKW6GiNgBZFvEOTcteLNORQsPFGtVIS6UGXeLBIrXNYqSYqtWT XrRTAfOdR2YBYsIDExWB6jBvWtVYFvSSF6TKLlVXPbMZQkmdQLMNFwTECyXTf0HvSlZKSpOMKdJWqyDB ZkKGElCKvaCKVzVWTpRH1iLyOuTAZiIVKkNVNfABQn LUNsjsHKFBMzNGYbKIG2JoTfWSDpERUkZZzbOUSwGIYkQAN3YEUdNPLqVQ0vUqZcGRMrHFF2XtUrQSBg NJFbsrZJFLGxEEJdBJSnTLSvRHDyXWWkWLhtYLIeAHVwXoB7YGOhIOZfOU8tVcIlFDUwTEE4VNBaJOEn HVGotwOMMASbBOKdEJJ0BELgLDJvONRzOBkzVFXuFS D9KEh8NMCrWUUnVV3uFdNpUXYzXZD8YOdxPTGjCYVcuyUAZNAtXAVhCmXjPFZvTOQxPIBfJSkaMGDqNK BdRQJrHBS6AWO3HYMzAcOpFNczYQXMWFrAW3DowiFxBnnET2tkMa2tXjNtWWOIG5Rge6MbBPFqXIFSEk 4+PlJ8XON5zNQuPkmcXUg3AEZKOCZFP8Y= ID Date Data Source [id number] 12/14/2020 07:39:20 AM EDT [facility] Name Value Range Interpretation Code Description Data Morena rce(s) Supporting Document(s) EKG [facility] ZUHNSp2qStCLXhPit4QeDxNoSQXaZS6bneo9N6H3eNDuJ5HniBNwz2gjM6JyQ1CuGSKgLMKFSH2NwKGp jb2 [file] Wx5yZw2RKv3zWO7uOHlukrb/EH0LJkYd3C7l9WZ/ISvuiV2id3kEZ2WQi7QnYIL5K+ExC1UDdjoc+Riana 11ru6E3hjywkZasLyPzIzDd1Lo2ib6VOrAaYqcVhnPz5uwNy9HH9gxrXoEqlKm7YzS24sW+rrh5IYEj3 HsNJTIqfkhRGrtZvpB844l9uO2Dhk9Oj7jm6g9Vf+4 iLI1XES4JVmC2nbdbS8T6g9lWj8PU6iFQhagBJywMwwU0wvuhP6Q1NKDWvgxA6lnpWxxamLIbFzyG21J OvleAP2nfZhEgOZD4V9ynaFoz2nBfrFiWg4NStTrtbdOLYthjU6WIiOFrHY3I9HNRxtvHDb48Jmp7IcL zk7aFUw0oCqBbhtgnGCcRDkK9n9zyLXsgwChxMpGIj yqvkkDh4OMs4ssWptCu6rAKOm+7RrNLXgt6fw+oIQ5tRO7wmMcircSNe+XCeS4bBG3b+LyhthwissbYt M5Lm+NCnV6dOBTTcZqNZMWXk2uiYZPyJbB5aycsQosAbq/GYdEelCGFgRlT+soKL7TPEC2jFd32hMRY0 g9zsttNQkAB399uLoPjdTqhXde9L+pecN0OIvGfZyS I1jWwiUf+2ArB5iqCjcD06um6qRLT0eXO3/bDuG5spKa6NQCSIWqGA5Rpi7pL3LQ6gOkrzcFvMReqVq3 XOH0dO6y4BBhdu0gwzN+zfP4saUp3fTFkizGC5GPCl0vuwj6lqkdjexa3xvfJfh76lINsgkp4sqSWC/R 8C9arH2ipMoi8uX8vbG5uXyGgAjzWHiFJf6e6aQfwP aQD320rBn9EkUbmMqYR2TLs2RpsAXQPHlKyzkpVV/i8nM4kIOOL9ohbsw1GVPIU2zSqYqrwIWhRdZrRx 4N5J7v6kuo7c9Lt3cKrkONtZseXu9GgY2M/C+8n5cHa72ihB23J+uZ7zDSZMiMwkmyZkhORbAaXA0vLJ 0+uQ5ezEnwqdhqnjLu4YvspwvyhmecmUkeXH5i6aGS r6p5NDlC6D3eciFYJrf1+/O3Cnn6E3x3DdwVneuiT6k69A2nuvoyNJsuRIlzVX51aKxgHg7vaYhxvDqv kulWu56XVE3qLD1Kp+GhF5Bt4AL7n4dA9rhlsjyY2C6Z06tPmzxn3xjjgYqahq6mjAIZhTnX457v57ct 4kHOmzvQJdC5JM+VsvklqzRZQt3jmGaVmlY+uLzhnf eg9q1CUHR/Ba3wIxBa3uKbcbss4bU31RpLbTjvblMrQSRiGYeS8t7TetpF8T7hFvAxtycsyuaSeBNmvJ J4N+o9TlmaqbHfj+EyF2ryaQD9xuum8LGWacfbQ2V8ZbxKjr4IPgdU4us9fEFAev/TmMDiVpR6SckxqP Am5Fa9Aek+MoMsAlrLVb5uAtygRGnTBsaVVEkIY4/f 38Hsm7C91tWr9A2hwmsgva5R+sjDM0kZv2PveYut9RwK/Manuel/nMe5sgiHvrU9Z4AoJ1mOkz5Vfulxg2u gnsoSzxLffHUl+QpM2tbIl+VoG4mPc3Z/Ii30REkeev+T5fF7+liyd2caZl7BDNk2SV0wAv1AwBiv8ox rF0WHGovdx+IaJypEnQXAy3J0T1b1qClQtMdeSiGr9 FyKvRfX6Cf9jzlAxQg1uR2S95hnmxNkkoqBrVaHwGvmYk3zf6TGR3OYhnNaPBOL4MkZO3VcA9f0tQ5cf 0P+0Iq2pNvwNxh9jHorjz9bCY+HqhmBrEqpzLcf9xqiAqyrqX7Qxtj6ByONbtH7TM9rVd0Y7kdkGeHeD 5bC0E4O3GBu/xTzSirSIw8wgB7WbZ0rUpJRlhUMKxw OfufxlG71i1+5yiIdxnk3kiVS4xyTqmrCZ5m2A+oGj97nPFguoUhv7Z1kbrjD5iifbFRK03070xp0Mnm fXGOpzLj6A19uzSGgo6+TmKM2V3AePOuXw35ZqxpK2h9qS4a8FoxJKB2ReRyz5xJc7DBI9WM0iKokKqf 5W6SgkSz6ek+qDsPGpTak7/7wraHSLK4gr62PRlU9i LfzxNsbuM1cDPwrqVZLgNcawiVAxRsYhPIx17gwe2X3ilkUP7JU79qLQdyFHfDlA2yS108hGyJ0wOTUt G/SHy3ZN0jK0I2W6DNR8wHd4K120aR4p9We2zayBHCiPoGsuqG6eO23UzhxeBNBUMspXV7WS/UkeaXc4 L7GGo6rwKeur7S8ijngB56eNZfi1pex9FIC5L0f8nD 6/SJEIs9hbhG0UWuTBt+SFsxOC8dcMNk87/dRPkIXDz3JWpZjG8gwE519peFQ1lypnzyfr/TkhwO+Mbl MdmuzJbGEIpeaBgo2tE5sYs+EeH0zx77tqWSf5AAT138u9Gyv0BsC19g2buMCTl1Rq2OOB3HrK9xmNwu xGtQI/XDN8iu1ouyy9q/CydV7uadYR2lF7i/5/KGPc P+MBx88Ys280o43gz11YOVn9peyqm+Y7MxtU38Bbm/wEMqG7YoH1LpTXo2hEh/W6vXSfmqNRN81Kct+p bR5Q2f+LoXyAw2Qihggqw1Wtq28IGQh0JnO482lY0UoQZh9ZLn0fI2r/y9cwge9qYE6Y+6vOFErFthHF UDV4bJps4yVBUTCuQLX9b2gK4lYuHwpPib5yXeKil4 0oU6mZaSsqdy8wmlX7FFJoW2Kc5nOURgVdk9MFmINKkY1r1b1G5aLYBZGpu9wUP5L7enopoWdMJlyS86 LjdNXnBkWNQMAVqvOAzyvYYHocpwmCrQjAsSd9BI3PpFh2MNOjpGO3cl4O9UVkc5wDKeeYKRqkF7n2U/ b7FmtyfxFyvG1ok9+9Caz3fliHn39ckS8n5eyhAIus KtTlhV275Asr1Ke0+dvzxLXhwHMbLqx8iyqge/5A3cmsn0JE/+0rmvpssbLi/5i/Ob063u8qgDX9gV+7 W7hALsiqEG9J+QYwSzAb3WTqVqDhR++0OGVte7nYMapG7i+N/B1P7kpTkhuwdmrDkOeCQK25k9UqZ2k/ b9XX8o/tprc7Ct6wEm3c8ep/MujEDk6061BR9j/as7 I4cVap7/AraejsQpu8UU4OYi+m680hKi0V+1uEbho/3c9itHV0ZGhjPCM1Hojitw3J1i97+feP78/llR 9/UV23iYlZ7sLO9BpX6+0fnMo55LkUB/0R4Jh4ihr/o2/aY742n/f//qe/j87ixtU2f85HjKwmmp2o6a Z93F0ATTl+hGiu/bPu/i+64/Taod2ru0+573md6/up Zh+b69Y9/KcOz8/aLZR4r/5k9DcOP0k06yVT8Rq59/Ued+bqXcY6S9d+b3vX+/YT6/x/0Lu/d6P1Cqnr cqhk/9ur0B+n6/SJ7Agxsme+itai7Ag+pPk525Oc0n09FWs9+n9Pp+qsz35miU7nEkxo30nc1c4zolsw nn7yj/BSiDyqj2n1lliH+xKA9NMjYlpH4wAvDw1biy tgoxAd36TWE2FJu5Gyy7A34ARPqq3gOAAUfFg28kqNyqnl4jXsV1FFgbC2RImDs8Dyt5s/3CJTZHvjhk MhdsukIT19Gf71vGYLkRUxIYxGPSzHa7NmTMUyY7NFlXzbY9RuZNBSNQZEJCrXPn8bpgHHNkXFB48ueV imLqquTfeWiqm5APZjn61xxUJ+T4+4PjVLC/N17Otk LHYN7pC9rGgObjW4hVu4xflZmsxh8TJnx2uiUfnMfQwOFLLvrmgMRyt2ihtBTCvqCLUrmiOExaud7lyh 4YKcYk3wwg2phpnla4tp59lB2SPcWPoOrishMT6w/f0moWxEkaRIA7HFQAx71TFtUVgTt/3+mFZZDmr9 6UNJiLLjnkSSjq2FquIjceJm/h+oWzo/Qzpe89Z9p/ 4fqFixwO+s9UEG3W8wIdjSPXvxFi+oU/O9QmL5QCZLlGR52CswpdioRe9g5b5Fl00aXRpDr12RTAJuDF kWK74BkrhwMjonKtwFGLQBqFVogdJSWsOTnd+oW/r5DWoJiE5/uMdOV3zmGKJx0hRHIC2geXtGC4SYOb aY5BvJFbB7C/uivPWFcz2VqEKsT1JRxgvn3Ezs77ob EDfl6/7NvRcNb7DcfXKDw2U7g4rsVFzk7w5QD05QCT9ip07BfV6fb7/3n63/zg/X2+ENuSim7jdmMXeN t/bsaDj37j/qb/t+/6/mYE9/+/L2Gcr/X4biKsEHbJZkw+/5bX7ighho2dxco1kDeJO2pk/n3+f/g+yq 7+v+j/m/5/jxmou2R4336K/3cdq8a9aQ6+Psru/k3/ b9/1Pcqu/t8pfaf/D/r/oP9P+p102TzE+dPzzkX/Z3EUmj4Xz6//98vDmnK25jcg0YK/z+c96Y+yA29H 2aGso+pbFN8uUwHq0aVppz+yu3/brdtRdvX/Hsft3z4lK5++fpSdG/7+/T97+eT4wt8wZMuIflEqg/q/ 0//S65mcizV3sh1+/fI/vo39kZAD/8/zDvx9/p9pzv MO/G3v70n/n5T+PC/yPM+LPBelp+ddm9Jv+r/T/05hTffh0v/39/6/z/QovKvU33vjd//dDOB7qu/0// B7ITNu07ef/e6UWjGPi+fNz+M2+t991get6omj8KH12RUd3+39HfT/lQZx36l18/n/MoY9wR3I+7kM4a mw4I65Fp+PN5/0/5exAwPndN84FwSrFcnN4Q0I7ftv el4P+h75yhJ81Ea96flRPw/Lmw/+/j6+P5XGmx4AkQZfd80/7dT2KzS+Kiw3gKueoFT+7NpcML3P/9+U j3/P1+n/8fiJMxPFif/rf73fityhBiqunwAocajFbeR/x63/lxBH3P6SDg9qm/I3Sm/2/l6U/evw9aSc Ppvy94/+pvoE5R+j0KY94Ba1x88UaZpJaZYbmpK0Ie /o/4P+P1+9lq0erknf27yOA1o/qNxN+e/HQ3PKx+n/QfWP9//+vfz79+nV99uEfaM/7w82hz5+6P/j1b PHYSICS DEPARTMENT CHAIR+v/rv+fagvc3/Z/vd9acXyge7wZn/0750/MefXX/jcXi65yE6/Xfc1XB+/vVZ/UR2giCt5QorwC6Qy Z2CNwR49b35/nn7C0VSgHZklb4vrwdJzQwI5Z/49Vz Uv+d30s/7vk53okl8Y3dvy/1ahxHh5mS2Ubk/u08ng3kup0z/judj2fyHhOSgfod6lgUk8M+2vNjEy7B 3jdpq1nW/x73hyn8ZrfDs3N6M5+Sdd8mFOBctWtvn3azSbxs4Q+oPvt+gvR4Bi99+e2LdC4saH1dFkY+ cebvkglb9CvzNj+pr/B3f/mnvkI+M69N0syG4h/zzv z/fPVJfVV/0//W795L5d98IyNRtdrYyQNoz4J+8Qntfrq3PMA+CuirTN8/+vvVM/VVlrvp/aa+Qvqnrw L6Cn9T/dGqG04dK/bluhyBR6hnM2D0hqAELiF6LU8ON1V5r/ic3J927c65aj7q/9RX+P+g/8+P/n48pL 7C/43qsyifdXV++JsvhNPzutP/ypGFmp1wa0fk6l+p r/D/M759Nvuo//fHW+dgsGa3x2xDpz9Hv7A/c36Ev+67yY86cjTY9v9eJE7jDZLdWK72h/QrE4kZFAl2 Vgs4BPqzlsUXsUawlKt4ABpG/CjZvE+HYZIYsbPaRykJgOG2m4NLaFlwrO/Ii5rdqYL77pc+A1YEkqXU pkB7qeRoXIfdSISEN2HcvF1RckpYWNHXlQDRWV//ct gmg4550a+R74he9I+b9SgbD6K0OXxJeh/hGOkFJhYL8YV+2yH0Gb8GwnhA/Skjwz/nzA4lEGa5++sRdf rfyDBGTsxrvMP+n2aFFFNpEj7Ht3zqlZHlWXXt/G2DXLkmSPKi97JydlEJYgoRNAM1on0PcoXEgt6/driver [file] [facility]AEAtFBs7ThKiGA6M ID Date Data Source [id number] 12/14/2020 01:38:40 PM EDT [facility] Name Value Range Interpretation Code Description Data Morena rce(s) Supporting Document(s) PT 16.5 s (9.2-11.9) H [facility] INR 1.61 [facility] SUGGESTED THERAPEUTIC RANGES USING INR F ORSTABILIZED ANTICOAGULATED PATIENTS:STANDARD DOSE THERAPY INR 2.0-3.0 DVT, PE, PREVENT DVT OR EMBOLISMHIGH DOSE THERAPY INR 2.5-3.5 PREVENT EMBOLISM FROM MECHANICAL HEART VALVE ID Date Data Source [id number] 12/14/2020 08:06:14 AM EDT [facility] Name Value Range Interpretation Code Description Data Morena rce(s) Supporting Document(s) TROPONIN I 6.84 ng/mL (<0.05) H [facility] Less than 0.05: Myocardial injury unlike lyGreater than or equal to 0.05: Highly suggestive of myocardial injuryCorrelation with rise and/or fall ofserial troponins, clinical symptomsand ECG changes is necessary.[id number] [place] [facility].13 [place] 27959 ON 12.14.20 [place]805 [place] [id number] ID Date Data Source [id number] 12/14/2020 07:28:10 AM EDT [facility] Name Value Range Interpretation Code Description Data Morena rce(s) Supporting Document(s) SODIUM 136 mmol/L (136-145) [facility] POTASSIUM 4.1 mmol/L (3.6-5.2) [facility] CHLORIDE 98 mmol/L (100-108) L [facility] CO2 24 mmol/L (22-31) [facility] ANION GAP 14 mmol/L (7-16) [facility] UREA NITROGEN 44 mg/dL (7-24) H [facility] CREATININE 2.71 mg/dL (0.80-1.30) H [facility] BUN/CREAT RATIO 16.2 RATIO (10.0-20.0) [facility] GLUCOSE 107 mg/dL (70-99) H [facility] CALCIUM 8.8 mg/dL (8.4-10.2) [facility] TOTAL PROTEIN 6.6 g/dL (6.4-8.2) [facility] ALBUMIN 3.4 g/dL (3.5-4.6) L [facility] GLOBULIN 3.2 g/dL (2.7-4.3) [facility] ALB/GLOB RATIO 1.1 RATIO [facility] ALKALINE PHOSPHATASE 50 U/L (45-117) [facility] BILIRUBIN,TOTAL 0.7 mg/dL (0.0-1.0) [facility] PLEASE NOTE:Total bilirubin results may be falselyelevated in patients taking Eltrombopag. AST (SGOT) 3595 U/L (11-39) H [facility] ALT (SGPT) 5219 U/L (12-78) H [facility] GFR 24 ml/min/1.73m2 (>59) L [facility] GFR ( AMER) 29 ml/min/1.73m2 (>59) L [facility] GFR INTERPRETATION [facility] --NORMAL KIDNEY FUNCTION OR MILD DISEASE - GFR >OR= 60CHRONIC KIDNEY DISEASE - GFR 15 - 59RENAL FAILURE - GFR <15 Est. GFR calculation based on the MDRDstudy equation, which assumes a steadystate for creatinine. Est. GFR should notbe used for medication dosing. ID Date Data Source [id number] 12/14/2020 06:46:16 AM EDT [facility] Name Value Range Interpretation Code Description Data Morena rce(s) Supporting Document(s) WBC 15.0 10*3/uL (4.1-11.0) H [facility] RBC 4.86 10*6/uL (4.60-6.10) [facility] HGB 15.7 g/dL (13.5-18.0) [facility] HCT 45.8 % (41.0-53.0) [facility] MCV 94.2 fL (80.0-95.0) [facility] MCH 32.4 pg (27.0-32.0) H [facility] MCHC 34.4 g/dL (32.0-36.0) [facility] RDW 14.5 % (10.5-14.5) [facility] PLT 100 10*3/uL (150-450) L [facility] MPV 9.1 fL (7.1-10.7) [facility] ID Date Data Source [id number] 12/14/2020 06:42:54 AM EDT [facility] Name Value Range Interpretation Code Description Data Morena rce(s) Supporting Document(s) APTT 48.7 s (22.0-34.3) H [facility] ID Date Data Source [id number] 12/14/2020 04:07:19 AM EDT [facility] Name Value Range Interpretation Code Description Data Morena rce(s) Supporting Document(s) TROPONIN I 6.30 ng/mL (<0.05) H [facility] Less than 0.05: Myocardial injury unlike lyGreater than or equal to 0.05: Highly suggestive of myocardial injuryCorrelation with rise and/or fall ofserial troponins, clinical symptomsand ECG changes is necessary.ALERTED CRITICAL RESULT [facility]([id number]) D3(21723) [place] [address] ON 12/14/20 BY [id number] ID Date Data Source [id number] 12/14/2020 04:04:04 AM EDT [facility] Name Value Range Interpretation Code Description Data Morena rce(s) Supporting Document(s) SODIUM 137 mmol/L (136-145) [facility] POTASSIUM 3.9 mmol/L (3.6-5.2) [facility] CHLORIDE 98 mmol/L (100-108) L [facility] CO2 25 mmol/L (22-31) [facility] ANION GAP 14 mmol/L (7-16) [facility] UREA NITROGEN 40 mg/dL (7-24) H [facility] CREATININE 2.84 mg/dL (0.80-1.30) H [facility] BUN/CREAT RATIO 14.1 RATIO (10.0-20.0) [facility] GLUCOSE 134 mg/dL (70-99) H [facility] CALCIUM 9.1 mg/dL (8.4-10.2) [facility] TOTAL PROTEIN 6.7 g/dL (6.4-8.2) [facility] ALBUMIN 3.2 g/dL (3.5-4.6) L [facility] GLOBULIN 3.5 g/dL (2.7-4.3) [facility] ALB/GLOB RATIO 0.9 RATIO [facility] ALKALINE PHOSPHATASE 48 U/L (45-117) [facility] BILIRUBIN,TOTAL 0.8 mg/dL (0.0-1.0) [facility] PLEASE NOTE:Total bilirubin results may be falselyelevated in patients taking Eltrombopag. AST (SGOT) 4478 U/L (11-39) H [facility] ALT (SGPT) 5475 U/L (12-78) H [facility] GFR 23 ml/min/1.73m2 (>59) L [facility] GFR ( AMER) 28 ml/min/1.73m2 (>59) L [facility] GFR INTERPRETATION [facility] --NORMAL KIDNEY FUNCTION OR MILD DISEASE - GFR >OR= 60CHRONIC KIDNEY DISEASE - GFR 15 - 59RENAL FAILURE - GFR <15 Est. GFR calculation based on the MDRDstudy equation, which assumes a steadystate for creatinine. Est. GFR should notbe used for medication dosing. ID Date Data Source [id number] 12/14/2020 03:47:27 AM EDT [facility] Name Value Range Interpretation Code Description Data Morena rce(s) Supporting Document(s) MAGNESIUM 1.9 mg/dL (1.7-2.4) [facility] ID Date Data Source [id number] 12/14/2020 12:56:44 AM EDT [facility] Name Value Range Interpretation Code Description Data Morena rce(s) Supporting Document(s) APTT 30.7 s (22.0-34.3) [facility] [place] ID Date Data Source [id number] 12/13/2020 08:10:12 PM EDT [facility]FORMATIONPatient MRN Name Date of Age Gend*PT [id number] Dilan Kirk 1960 60 years M IPPT Location Admission Date/Time Visit ID Attending [id number] 12/13/20 1238 --- Crystal Neal MD([id number]) EPI ID CSN Admitting Provider [id number] Crystal Neal MD([id number])Inpatient Consult NoteWchemaronak KirkMRN: [id number] FOR GI CONSULT: Acute hepatitisHOSPITAL PROBLEM LIST:Principal Problem: Coronary artery disease involving conf[place]erated sal[place] coronary artery of confed[place] salish heart withunstable angina pectorisActive Problems: Wide-complex tachycardia [...] to be monitored closely for signs of SNF. Also watch for signs ofbleeding. I expect [...] them due to numbness. [facility] wherehe was found to be in [...] mellitus History of herniated intervertebral disc Hypertension [place] (myocardial infarction) Sinusitis Umbilical herniaPast Surgical History:No [...] rce(s) Supporting Document(s) ID Date Data Source [id number] 12/20/2020 01:40:51 PM EDT [facility] Name Value Range Interpretation Code Description Data Morena rce(s) Supporting Document(s) PROTEIN,URINE 98 mg/dL [facility] URINE PROTEIN MAY BE FALSELY ELEVATEDDUR ING TREATMENT WITH AMINOGLYCOSIDESDUE TO METHOD INTERFERENCE. ALBUMIN URINE 36.6 % [facility] ALPH1 1 URINE 63.4 % [facility] TOTAL OTHER FRACTIONS ALPHA 2 URINE [facility] BETA URINE [facility] GAMMA URINE [facility] INTERPRETATION: [facility] Interpretation [place] [address] Mixed glomerular and tubular proteinuria. MD Jay 12/16/20 ID Date Data Source [id number] 12/13/2020 11:27:33 PM EDT [facility] Name Value Range Interpretation Code Description Data Morena rce(s) Supporting Document(s) URINE WBC (0-5) [facility] URINE RBC (0-2) [facility] EPITHELIAL CELLS 2+ [HPF] [facility] AMORPHOUS 1+ [HPF] [facility] HYALINE CASTS [facility] COARSE GRAN CAST [facility] ID Date Data Source [id number] 12/13/2020 10:28:36 PM EDT [facility] Name Value Range Interpretation Code Description Data Morena rce(s) Supporting Document(s) PROTEIN,URINE 98 mg/dL [facility] URINE PROTEIN MAY BE FALSELY ELEVATEDDUR ING TREATMENT WITH AMINOGLYCOSIDESDUE TO METHOD INTERFERENCE. CREATININE,URINE 97.80 mg/dL [facility] URINE TP/CR RATIO 1.00 RATIO (0.00-0.20) H [facility] ID Date Data Source [id number] 12/13/2020 10:10:25 PM EDT [facility] Name Value Range Interpretation Code Description Data Morena rce(s) Supporting Document(s) COLOR [facility] APPEARANCE [facility] SPEC GRAV URINE 1.017 (1.003-1.030) [facility] PH URINE 5.5 (5.0-7.5) [facility] LEUK ESTERASE (NEG) [facility] NITRITE URINE (NEG) [facility] PROTEIN URINE 1+ (NEG) A [facility] GLUCOSE URINE 1+ (NEG) A [facility] KETONE URINE (NEG) [facility] [place] UROBILINOGEN 0.2 mg/dL (0-1.0) [facility] [place] BILIRUBIN URINE (NEG) [facility] BLOOD/HGB URINE 2+ (NEG) A [facility] ID Date Data Source [id number] 12/13/2020 09:42:50 PM EDT [facility] Name Value Range Interpretation Code Description Data Morena rce(s) Supporting Document(s) URN CULTURE HOLD [facility] FOR ADD ON CULTURE ID Date Data Source [id number] 12/20/2020 01:25:18 PM EDT [facility] Name Value Range Interpretation Code Description Data Morean rce(s) Supporting Document(s) TOTAL PROTEIN 6.7 g/dL (6.4-8.2) [facility] TOTAL PROTEIN EPP 6.7 g/dL (6.4-8.2) [facility] ALBUMIN CALC 4.5 g/dL (3.9-5.1) [facility] [place] ALPHA 1 CALC 0.2 g/dL (0.1-0.3) [facility] [place] ALPHA 2 CALC 0.7 g/dL (0.4-1.0) [facility] [place] BETA CALC 0.7 g/dL (0.5-1.1) [facility] GAMMA CALC 0.6 g/dL (0.4-1.2) [facility] MONOCLONAL CALC (NOMONO) [facility] ALBUMIN PERCENT 66.4 % (58.8-69.6) [facility] ALPHA 1 PERCENT 3.0 % (1.6-3.0) [facility] ALPHA 2 PERCENT 10.4 % (7.2-13.2) [facility] BETA PERCENT 11.1 % (8.0-14.7) [facility] GAMMA PERCENT 9.1 % (7.3-16.4) [facility] INTERPRETATION: [facility] [place] MD JAY 12/16/20Interpretation perf ormed [place] [id number] ID Date Data Source [id number] 12/17/2020 01:17:18 PM EDT [facility] [place] Name Value Range Interpretation Code Description Data Morena rce(s) Supporting Document(s) MYELOPEROX AB 0 AU/mL [facility] Reference range: 0 to 19 INTERPRETIVE IN FORMATION: Myeloperoxidase Abs, IgG 19 AU/mL or Less ......... Negative 20-25 AU/mL .............. Equivocal 26 AU/mL or Greater ...... Positive Approximately 90% of patients with a P-ANCA pattern by IFA have antibodies specific for MPO. SERINE PROTEINASE 3 1 [facility] [place] Reference range: 0 to 19Unit: AU/mL INTE RPRETIVE INFORMATION: Serine Proteinase 3, IgG 19 AU/mL or Less ........ Negative 20-25 AU/mL ............. Equivocal 26 AU/mL or Greater ..... Positive Approximately 85% of patients with a C-ANCA pattern by IFA have antibodies specific for PR3. ANCA IFA TITER [facility] <1:20Reference range: <1:20 ANCA IFA PATTERN [facility] None DetectedReference range: None Detec naresh INTERPRETIVE INFORMATION: ANCA IFA Pattern Neutrophil Cytoplasmic Antibodies (C-ANCA = granular cytoplasmic staining, P-ANCA = perinuclear staining) are found in the serum of over 90 percent of patients with certain necrotizing systemic vasculitides, and usually in less than 5 percent of patients with collagen vascular disease or arthritis. Performed By: [facility] [address] [place] [address] Agricultural Produce Sorter: Li Hoffman MD ID Date Data Source [id number] 12/16/2020 04:04:44 PM EDT [facility] [place] Name Value Range Interpretation Code Description Data Morena rce(s) Supporting Document(s) CH50 TURBIDIMETRIC 67.0 [facility] Reference range: 38.7 to 89.9Unit: U/mL REFERENCE INTERVAL: Complement Activity Total, (CH50) 38.6 U/mL or less ..........Low 38.7-89.9 U/mL .............Normal 90.0 U/mL or greater .......High Performed By: [facility] [address] [place] [address] Agricultural Produce Sorter: Li Hoffman MD ID Date Data Source [id number] 12/16/2020 01:05:23 PM EDT [facility] [place] Name Value Range Interpretation Code Description Data Morena rce(s) Supporting Document(s) KAPPA FREE LIGHT 56.60 H [facility] [place] Reference range: 3.30 to 19.40Unit: mg/L INTERPRETIVE INFORMATION: [place] Qnt Free Light Chains Undetected antigen excess is a rare event but cannot be excluded. Free light chain results should always be interpreted in conjunction with other clinical and laboratory findings. LAMBDA FREE LIGHT 30.32 H [facility] Reference range: 5.71 to 26.30Unit: mg/L GEOVANNA/HMALIN RATIO, SERUM 1.87 H [facility] Reference range: 0.26 to 1.65 Performed By: [facility] [address] [place] [id number] Agricultural Produce Sorter: Li Hoffman MD ID Date Data Source [id number] 12/16/2020 08:14:49 AM EDT [facility] [place] Name Value Range Interpretation Code [...] and assessment of renal prognosis. Performed By: [facility] [address] [place] [id number] Agricultural Produce Sorter: Li Hoffman MD ID Date Data Source [id number] 12/14/2020 05:02:46 PM EDT [facility] Name Value Range Interpretation Code Description Data Morena rce(s) Supporting Document(s) BÁRBARA SCREEN @ (NEG) [facility] [place] ID Date Data Source [id number] 12/13/2020 11:01:13 PM EDT [facility] Name Value Range Interpretation Code Description Data Morena rce(s) Supporting Document(s) TROPONIN I 6.39 ng/mL (<0.05) H [facility] [place] Less than 0.05: Myocardial injury unlike lyGreater than or equal to 0.05: Highly suggestive of myocardial injuryCorrelation with rise and/or fall ofserial troponins, clinical symptomsand ECG changes is necessary.ALERTED CRITICAL RESULT TOKATIE([id number]) D3([id number]) AT 2255 ON 12/13/20 [place] [id number] ID Date Data Source [id number] 12/13/2020 10:58:37 PM EDT [facility] Name Value Range Interpretation Code Description Data Morena rce(s) Supporting Document(s) CERULOPLASMIN @ 34.2 mg/dL (20-60) Lab [facility] ID Date Data Source [id number] 12/13/2020 10:36:31 PM EDT [facility] Name Value Range Interpretation Code Description Data Morena rce(s) Supporting Document(s) ACETAMINOPHEN <2.5 ug/mL (10.0-30.0) L [facility] ID Date Data Source [id number] 12/13/2020 10:12:40 PM EDT [facility] Name Value Range Interpretation Code Description Data Morena rce(s) Supporting Document(s) HEPATITIS C AB @ (NEG) [facility] NOT INFECT ED WITH HCV, UNLESS RECENTINFECTION IS SUSPECTED OR OTHER EVIDENCEEXISTS TO INDICATE HCV INFECTION. ID Date Data Source [id number] 12/13/2020 09:22:23 PM EDT [facility] Name Value Range Interpretation Code Description Data Morena rce(s) Supporting Document(s) RHEUMATOID FACTOR @ <15 IU/mL (0-15) [facility] ID Date Data Source [id number] 12/13/2020 09:22:23 PM EDT [facility] Name Value Range Interpretation Code Description Data Morena rce(s) Supporting Document(s) COMPLEMENT C3 @ 56 mg/dL (90-180) L [facility] ID Date Data Source [id number] 12/13/2020 09:22:23 PM EDT [facility] Name Value Range Interpretation Code Description Data Morena rce(s) Supporting Document(s) COMPLEMENT C4 @ 20 mg/dL (10-40) [facility] ID Date Data Source [id number] 12/13/2020 06:40:38 PM EDT [address] [id number] Name: Dilan KirkDOB: 1960ex: MOrdering Provider: PIERCE AMAYAAuthorineno Prov: PIERCE AMAYAReferryajaira Provider: Procedure Performed: US ABDOMINAL VEINS LIMITEDExam Date: 12/13/2020 16:02MRN: [id number] Number: [id number] Class: INFORMATION: Exam: US Duplex Artery or [...] rce(s) Supporting Document(s) ID Date Data Source [id number] 12/13/2020 06:33:52 PM EDT [address] [id number] Name: Dilan KirkDOB: 1960ex: MOrdering Provider: AUSTYN Degroot Prov: AUSTYN Damon Provider: Procedure Performed: XR CHEST PORTABLEExam Date: 12/13/2020 18:12MRN: [id number] Number: [id number] Class: INFORMATION: Exam: XR Chest Exam date [...] rce(s) Supporting Document(s) ID Date Data Source [id number] 12/13/2020 05:04:51 PM EDT [facility]FORMATIONPatient MRN Name Date of Age Gend*PT [id number] Dilan Kirk 1960 60 years M IPPT Location Admission Date/Time Visit ID Attending [id number] 12/13/20 1238 --- Crystal Neal MD([id number]) EPI ID CSN Admitting Provider [id number] Crystal Neal MD([id number])Consult NoteAdmit Date: 12/13/2020Today's Date: December 131Reason for [...] 4 yearspresented with lightheadedness earlier [facility] to [facility]. He wasnoted to be in acute renal failure with severely abnormal liver function testand transferred to [facility] management. Patient hadsome soda [...] coronary artery disease and had a cath [id number] which showed mild CAD and did not [...] mellitus History of herniated intervertebral disc Hypertension TN (myocardial infarction) Sinusitis Umbilical herniaFH: No family [...] Social Gatherings with Friends and Family: Attends [employer] Services: Active Member of Clubs or Organizations: [...] reviewed today at 1:50 PM :Labs from [facility] reviewedImaging:CXR from [facility] reviewedCurrent Meds:Scheduled Meds: amLODIPine 10 mg Oral Daily [START ON 12/14/2020] aspirin 81 mg Oral Daily bisoprolol 5 mg Oral Daily [START ON 12/14/2020] clopidogrel 75 mg Oral Daily insulin glargine 6 Units Subcutaneous Nightly insulin lispro 1-4 Units Subcutaneous With meals sliding scale montelukast 10 mg Oral Nightly normal saline flush 3 mL Intravenous Q8H [facility] normal saline flush 3 mL Intravenous Per ProtocolContinuous Infusions: heparin (porcine) in NaClPRN Meds:.albuterol, atropine sulfate, heparin (porcine), nitroglycerin,perflutren lipid microsphere (DEFINITY) 8.476 mg in 10 mL NS IVAustyn Davis MD Name Value Range Interpretation Code Description Data Morena rce(s) Supporting Document(s) ID Date Data Source [id number] 12/13/2020 05:09:46 PM EDT [facility] Name Value Range Interpretation Code Description Data Morena rce(s) Supporting Document(s) POC TEMPERATURE [facility] 37.0C POC SOURCE [facility] PUNCTURE SITE [facility] O2 THERAPY [facility] CP BYPASS [facility] KIERAN TEST [facility] POC VENOUS PH 7.35 pH (7.33-7.43) [facility] POC VENOUS PCO2 45.9 MM HG (38.0-50.0) [facility] POC VENOUS PO2 28 MM HG (30-50) L [facility] POC VENOUS SO2 49 % (60-85) L [facility] POC VENOUS BASE DEFICIT 1 MMOL/L (0-2) [facility] POC VENOUS HCO3 25.5 MMOL/L (23.0-27.0) [facility] POC VENOUS TOTAL CO2 27 MMOL/L (24-28) [facility] PERFORMED BY [facility] CLINICAL STAFF POC HCT 47 % (41.0-53.0) [facility] POC SODIUM 134 MMOL/L (136-145) L [facility] POC POTASSIUM 5.4 MMOL/L (3.6-5.2) H [facility] POC IONIZED CALCIUM 4.9 MG/DL (4.6-5.3) [facility] POC GLU 106 MG/DL (70-99) H [facility] PERFORM LAB [facility] ID Date Data Source [id number] 12/13/2020 05:06:44 PM EDT [facility] Name Value Range Interpretation Code Description Data Morena rce(s) Supporting Document(s) POC NOVA GLU 112 mg/dL (70-99) H [facility] [place] [facility] BY [facility] ID Date Data Source [id number] 12/13/2020 08:48:30 PM EDT [facility] Name Value Range Interpretation Code [...] APR 20, 2017). ID Date Data Source [id number] 12/13/2020 08:48:30 PM EDT [facility] Name Value Range Interpretation Code Description Data Morena rce(s) Supporting Document(s) HEPATITIS B S AG @ (NEG) [facility] HEP. B CORE IGM @ (NEG) [facility] HEPATITIS A AB IGM @ (NEG) [facility] HEPATITIS C AB @ (NEG) [facility] NOT INFECT ED WITH HCV, UNLESS RECENTINFECTION IS SUSPECTED OR OTHER EVIDENCEEXISTS TO INDICATE HCV INFECTION. ID Date Data Source [id number] 12/13/2020 08:48:30 PM EDT [facility] Name Value Range Interpretation Code Description Data Morena rce(s) Supporting Document(s) HEP B CORE AB TOTAL @ (NEG) [facility] ID Date Data Source [id number] 12/13/2020 07:57:54 PM EDT [facility] Name Value Range Interpretation Code Description Data Morena rce(s) Supporting Document(s) CHOLESTEROL @ 107 mg/dL (0-200) [facility] TRIGLYCERIDE @ 170 mg/dL (30-200) [facility] HDL CHOLESTEROL @ 30 mg/dL (>40) L [facility] PER NCEP ATP III GUIDELINES:RESULTS LOWE R THAN 40 MG/DL ARE SUGGESTIVEOF INCREASED RISK FOR CORONARY ARTERYDISEASE. RESULTS > OR = TO 60 MG/DL ARECONSIDERED A NEGATIVE RISK FACTOR. CHOL/HDL RATIO 3.6 RATIO [facility] INTERPRETATION OF CHOL-HDL RATIO CHD RISK FEMALE MALEVERY HIGH >8.3 >14.3HIGH 5.6- 8.3 6.7- 14.3AVERAGE 3.7- 5.6 4.0- 6.7BELOW AVERAGE 2.5- 3.7 2.7- 4.0PROTECTED <2.5 <2.7 LDL CHOL (CALC) 43 mg/dL (<130) [facility] PER NCEP ATP III GUIDELINES: OPTIMAL < 100 NEAR OPTIMAL 100 - 129BORDERLINE HIGH 130 - 159 HIGH 160 - 189 VERY HIGH > 189 ID Date Data Source [id number] 12/13/2020 07:17:50 PM EDT [facility] Name Value Range Interpretation Code Description Data Morena rce(s) Supporting Document(s) TROPONIN I 5.89 ng/mL (<0.05) H [facility] Less than 0.05: Myocardial injury unlike lyGreater than or equal to 0.05: Highly suggestive of myocardial injuryCorrelation with rise and/or fall ofserial troponins, clinical symptomsand ECG changes is necessary.ALERTED CRITICAL RESULT [place] ([id number]) [place] [id number] ON 12.13.20 AT 18:46 [place] [id number] ID Date Data Source [id number] 12/13/2020 06:02:25 PM EDT [facility] Name Value Range Interpretation Code Description Data Morena rce(s) Supporting Document(s) NT PRO BNP 14550 pg/mL (0-125) H [facility] [place] ID Date Data Source [id number] 12/13/2020 06:02:25 PM EDT [facility] Name Value Range Interpretation Code Description Data Morena rce(s) Supporting Document(s) TSH,ULTRASENSITIVE @ 1.779 mIU/L (0.360-4.170) [facility] PERFORMED AT [address] [place] [address] [place]VE [place] [address] ID Date Data Source [id number] 12/13/2020 06:02:25 PM EDT [facility] Name Value Range Interpretation Code Description Data Morena rce(s) Supporting Document(s) SODIUM 133 mmol/L (136-145) L [facility] POTASSIUM 5.2 mmol/L (3.6-5.2) [facility] CHLORIDE 100 mmol/L (100-108) [facility] CO2 21 mmol/L (22-31) L [facility] ANION GAP 12 mmol/L (7-16) [facility] UREA NITROGEN 60 mg/dL (7-24) H [facility] CREATININE 4.30 mg/dL (0.80-1.30) H [facility] BUN/CREAT RATIO 14.0 RATIO (10.0-20.0) [facility] GLUCOSE 92 mg/dL (70-99) [facility] CALCIUM 9.8 mg/dL (8.4-10.2) [facility] TOTAL PROTEIN 6.9 g/dL (6.4-8.2) [facility] ALBUMIN 3.7 g/dL (3.5-4.6) [facility] GLOBULIN 3.2 g/dL (2.7-4.3) [facility] ALB/GLOB RATIO 1.2 RATIO [facility] ALKALINE PHOSPHATASE 52 U/L (45-117) [facility] BILIRUBIN,TOTAL 0.7 mg/dL (0.0-1.0) [facility] PLEASE NOTE:Total bilirubin results may be falselyelevated in patients taking Eltrombopag. AST (SGOT) 7665 U/L (11-39) H [facility] ALT (SGPT) 6369 U/L (12-78) H [facility] GFR 14 ml/min/1.73m2 (>59) L [facility] GFR ( AMER) 17 ml/min/1.73m2 (>59) L [facility] GFR INTERPRETATION [facility] --NORMAL KIDNEY FUNCTION OR MILD DISEASE - GFR >OR= 60CHRONIC KIDNEY DISEASE - GFR 15 - 59RENAL FAILURE - GFR <15 Est. GFR calculation based on the MDRDstudy equation, which assumes a steadystate for creatinine. Est. GFR should notbe used for medication dosing. ID Date Data Source [id number] 12/13/2020 05:44:07 PM EDT [facility] Name Value Range Interpretation Code Description Data Morena rce(s) Supporting Document(s) PHOSPHORUS 7.2 mg/dL (2.5-4.5) H [facility] ID Date Data Source [id number] 12/13/2020 05:44:07 PM EDT [facility] Name Value Range Interpretation Code Description Data Morena rce(s) Supporting Document(s) MAGNESIUM 2.0 mg/dL (1.7-2.4) [facility] ID Date Data Source [id number] 12/13/2020 05:44:07 PM EDT [facility] Name Value Range Interpretation Code Description Data Morena rce(s) Supporting Document(s) ETHANOL <3 mg/dL (0-3) [facility] ID Date Data Source [id number] 12/13/2020 05:37:26 PM EDT [facility] Name Value Range Interpretation Code Description Data Morena rce(s) Supporting Document(s) HEMOGLOBIN A1C @ 6.7 % (4.0-6.0) H [facility] Performed using [employer] immunoassa y.Care must be taken when interpreting [id number] in patients with a hemoglobin variantor decreased erythrocyte lifespan. Values 5.7 - 6.4% suggest prediabetes.Values >=6.5% are diagnostic for diabetes.REFERENCE: DIABETES CARE 2018: 41(S13-S27).PERFORMED AT [address] [place] [address] EST AVERAGE GLUCOSE 146 mg/dL Lab [facility] ID Date Data Source [id number] 12/13/2020 05:30:16 PM EDT [facility] Name Value Range Interpretation Code Description Data Morena rce(s) Supporting Document(s) APTT 27.6 s (22.0-34.3) [facility] ID Date Data Source [id number] 12/13/2020 05:30:16 PM EDT [facility] Name Value Range Interpretation Code Description Data Morena rce(s) Supporting Document(s) PT 16.3 s (9.2-11.9) H [facility] INR 1.59 [facility] SUGGESTED THERAPEUTIC RANGES USING INR F ORSTABILIZED ANTICOAGULATED PATIENTS:STANDARD DOSE THERAPY INR 2.0-3.0 DVT, PE, PREVENT DVT OR EMBOLISMHIGH DOSE THERAPY INR 2.5-3.5 PREVENT EMBOLISM FROM MECHANICAL HEART VALVE ID Date Data Source [id number] 12/13/2020 05:13:26 PM EDT [facility] Name Value Range Interpretation Code Description Data Morena rce(s) Supporting Document(s) WBC 14.4 10*3/uL (4.1-11.0) H [facility] RBC 4.93 10*6/uL (4.60-6.10) [facility] HGB 15.9 g/dL (13.5-18.0) [facility] HCT 46.9 % (41.0-53.0) [facility] MCV 95.2 fL (80.0-95.0) H [facility] MCH 32.3 pg (27.0-32.0) H [facility] MCHC 33.9 g/dL (32.0-36.0) [facility] RDW 14.5 % (10.5-14.5) [facility] PLT 126 10*3/uL (150-450) L [facility] MPV 9.8 fL (7.1-10.7) [facility] NEUT % 85.3 % (35.0-75.0) H [facility] LYMPH % 10.5 % (16.0-52.0) L [facility] MONO % 4.0 % (0.0-8.0) [facility] EOS % 0.1 % (0.0-5.0) [facility] BASO % 0.1 % (0.0-4.0) [facility] NEUT # 12.3 10*3/uL (1.8-7.7) H [facility] [place] LYMPH # 1.5 10*3/uL (1.2-4.8) [facility] MONO # 0.6 10*3/uL (0.0-0.8) [facility] Eosinophils [#/volume] in Blood by Automated count 0.0 10*3/uL (0.0-0 .5) [facility] BASO # 0.0 10*3/uL (0.0-0.2) [facility] ID Date Data Source [id number] 12/20/2020 01:41:37 PM EDT [facility] Name Value Range Interpretation Code Description Data Morena rce(s) Supporting Document(s) PROTEIN,URINE 148 mg/dL [facility] URINE PROTEIN MAY BE FALSELY ELEVATEDDUR ING TREATMENT WITH AMINOGLYCOSIDESDUE TO METHOD INTERFERENCE. ALBUMIN URINE 35.7 % [facility] ALPH1 1 URINE 64.3 % [facility] TOTAL OTHER FRACTIONS ALPHA 2 URINE [facility] BETA URINE [facility] GAMMA URINE [facility] INTERPRETATION: [facility] MIXED PATTERN PROTEINURIAI.MD HERIBERTO 12/16/20Interpretation performed at[facility] [address] ID Date Data Source [id number] 12/13/2020 10:14:50 PM EDT [facility] Name Value Range Interpretation Code Description Data Morena rce(s) Supporting Document(s) URINE WBC (0-5) [facility] URINE RBC (0-2) [facility] EPITHELIAL CELLS 1+ [HPF] [facility] AMORPHOUS 2+ [HPF] [facility] COARSE GRAN CAST [facility] ID Date Data Source [id number] 12/13/2020 08:02:02 PM EDT [facility] Name Value Range Interpretation Code Description Data Morena rce(s) Supporting Document(s) PROTEIN,URINE 148 mg/dL [facility] URINE PROTEIN MAY BE FALSELY ELEVATEDDUR ING TREATMENT WITH AMINOGLYCOSIDESDUE TO METHOD INTERFERENCE. CREATININE,URINE 159.00 mg/dL [facility] URINE TP/CR RATIO 0.93 RATIO (0.00-0.20) H [facility] ID Date Data Source [id number] 12/13/2020 08:02:02 PM EDT [facility] Name Value Range Interpretation Code Description Data Morena rce(s) Supporting Document(s) RANDOM URINE CREAT 159.00 mg/dL [facility] ID Date Data Source [id number] 12/13/2020 08:02:02 PM EDT [facility] Name Value Range Interpretation Code Description Data Morena rce(s) Supporting Document(s) RANDOM URINE SODIUM 36 mmol/L [facility] RAND URINE POTASSIUM 84.9 mmol/L [facility] RAND. URINE CHLORIDE 20 mmol/L [facility] ID Date Data Source [id number] 12/13/2020 07:49:14 PM EDT [facility] Name Value Range Interpretation Code Description Data Morena rce(s) Supporting Document(s) COLOR [facility] APPEARANCE [facility] SPEC GRAV URINE 1.023 (1.003-1.030) [facility] PH URINE 5.0 (5.0-7.5) [facility] LEUK ESTERASE (NEG) [facility] NITRITE URINE (NEG) [facility] PROTEIN URINE 1+ (NEG) A [facility] GLUCOSE URINE 2+ (NEG) A [facility] KETONE URINE (NEG) A [facility] [place] UROBILINOGEN 0.2 mg/dL (0-1.0) [facility] [place] BILIRUBIN URINE 1+ (NEG) A [facility] INTERFERING SUBSTANCES MAY CAUSE FALSEPO SITIVE BILIRUBIN, WHICH HAS BEENSHOWN TO BE CLINICALLY INSIGNIFICANT.CORRELATE WITH OTHER TESTING. BLOOD/HGB URINE 2+ (NEG) A [facility] ID Date Data Source [id number] 12/13/2020 09:32:00 AM EDT [facility] ([facility]) Name Value Range Interpretation Code Description Data Morena rce(s) Supporting Document(s) Natriuretic peptide.B prohormone N-Terminal [Mass/volu me] in Serum or Plasma 72980 pg/mL [facility] ([facility]) Magnesium [Mass/volume] in Serum or Plasma 1.9 mg/dL 1.8-2.4 [facility] ([facility]) Thyrotropin [Units/volume] in Serum or Plasma 2.450 uIU/ML 0.358-3.74 0 [facility] (Cardiology [facility]) Lipoprotein lipase [Enzymatic activity/volume] in Serum or P lasma 204 U/L 73-393 [facility] ([facility]iology [facility]) ID Date Data Source [id number] 12/13/2020 09:32:00 AM EDT [facility] Name Value Range Interpretation Code Description Data Morena rce(s) Supporting Document(s) Glucose, Fasting 150 mg/dL 70-100 [facility] ([facility] Creatinine For GFR 4.94 mg/dL 0.70-1.30 [facility] ([facility]) Blood Urea Nitrogen 58 mg/dL 7-18 [facility] (Ca rdiology [facility]) Glomerular Filtration Rate 12.9 MED ENT (Cardiology [facility]) <content>Units are mL/min/1.73 m2</content>
<content></content>
<content>Chronic Kidney Disease Staging per NKF:</content>
<content></content>
<content>Stage I & II GFR >=60 Normal to Mildly Decreased</content>
<content>Stage III GFR 30-59 Moderately Decreased</content>
<content>Stage IV GFR 15-29 Severely Decreased</content>
<content>Stage V GFR <15 Very Little GFR Left</content>
<content>ESRD GFR <15 on ARRT TECHNOLOGIST</content>
<content></content> Sodium Level 133 meq/L 136-145 [facility] ([facility]) Chloride Level 97 meq/L 98-107 [facility] ([facility]) Potassium Serum 6.5 meq/L 3.5-5.1 Above upper panic limits [facility] ([facility]) Carbon Dioxide Level 21 meq/L 21-32 [facility] ([facility]) Anion Gap 15 meq/L 8-16 [facility] Calcium Level 8.8 mg/dL 8.5-10.1 [facility] ([facility]) ID Date Data Source [id number] 12/13/2020 09:32:00 AM EDT [facility] ([facility]) Name Value Range Interpretation Code Description Data Morena rce(s) Supporting Document(s) Ast/Sgot 5044 U/L 7-37 [facility] Alkaline Phosphatase 49 U/L 45-117 [facility] ([facility]) Bilirubin,Total 0.8 mg/dL 0.2-1.0 [facility] ([facility]io [facility]) Alt/SGPT 5023 U/L 12-78 [facility] Bilirubin,Direct 0.4 mg/dL 0.0-0.2 [facility] ([facility] Total Protein 6.7 GM/DL 6.4-8.2 [facility] (Cardiolo gy [facility]) Albumin 3.4 GM/DL 3.2-5.2 [facility] (Cardiology A [facility]) Albumin/Globulin Ratio 1.0 [facility] ([facility]) ID Date Data Source [id number] 12/13/2020 08:44:00 AM EDT [facility] ([facility] Name Value Range Interpretation Code Description Data Morena rce(s) Supporting Document(s) Prothrombin Time 22.4 s 12.7-14.5 [facility] ([facility]) Inr 1.92 [facility] ([facility]) THERAPUTIC HUMAN INR VALUES INDICATIONS NORMAL RANGES PROPHYLAXIS/TREATMENT OF: VENOUS THROMBOSIS 2.0-3.0 PULMONARY EMBOLISM 2.0-3.0 PREVENTION OF SYSTEMIC EMBOLISM FROM: TISSUE HEART VALVES 2.0-3.0 ACUTE MYOCARDIAL INFARCTION 2.0-3.0 VALVULAR HEART DISEASE 2.0-3.0 ATRIAL FIBRILLATION 2.0-3.0 MECHANICAL VALVES(HIGH RISK) 2.5-3.5 RECURRENT MYOCARDIAL INFARCTION 2.5-3.5 ID Date Data Source [id number] 12/13/2020 08:40:00 AM EDT [facility] Name Value Range Interpretation Code Description Data Morena rce(s) Supporting Document(s) SARS coronavirus 2 RNA [Presence] in Res piratory specimen by VICKEY with probe detection NEGATIVE [facility] This lab was ordered by [facility] a nd reported by [facility]. ID Date Data Source [id number] 07/27/2020 03:50:00 PM EDT [facility] ([facility] Name Value Range Interpretation Code Description Data Morena rce(s) Supporting Document(s) Hemoglobin A1c/Hemoglobin.total in Blood 8.5 [facility] ([facility]) ID Date Data Source [id number] 07/27/2020 03:50:00 PM EDT [facility] ([facility] Name Value Range Interpretation Code Description Data Morena rce(s) Supporting Document(s) Triglycerides 297 [facility] ([facility]) HDL 27 [facility] Cholesterol 117 [facility] ([facility]) Chol/HDL Ratio 4.333 [facility] ([facility]) Cholesterol in LDL [Mass/volume] in Serum or Plasma by calculation 31 [facility] ([facility]) ID Date Data Source [id number] 07/21/2020 04:19:00 PM EDT [facility] ([facility] Name Value Range Interpretation Code Description Data Morena rce(s) Supporting Document(s) Troponin I.cardiac [Mass/volume] in Serum or Plasma 0.13 [facility] ([facility]) ID Date Data Source [id number] 07/21/2020 04:19:00 PM EDT [facility] ([facility] Name Value Range Interpretation Code Description Data Morena rce(s) Supporting Document(s) Troponin I.cardiac [Mass/volume] in Serum or Plasma 0.11 [facility] ([facility]) ID Date Data Source [id number] 07/21/2020 03:32:00 PM EDT [facility] ([facility] Name Value Range Interpretation Code Description Data Morena rce(s) Supporting Document(s) White Blood Count 12.9 5.0-10.0 [facility] ([facility]) Red Blood Count 5.50 4.00-5.40 [facility] ([facility]) Hematocrit 52.3 [facility] ([facility]) Platelets 214 172-450 [facility] ([facility]iology A [facility]) Hemoglobin 17.9 [facility] ([facility]) ID Date Data Source [id number] 01/06/2020 11:04:00 AM EDT [facility] ([facility]) Name Value Range Interpretation Code Description Data Morena rce(s) Supporting Document(s) Free T4 1.07 [facility] ([facility]iology A [facility]) Thyroid Stimulating Hormone 2.8000 ME DENT ([facility]) ID Date Data Source [id number] 01/06/2020 11:04:00 AM EDT [facility] ([facility]) Name Value Range Interpretation Code Description Data Morena rce(s) Supporting Document(s) Alanine aminotransferase [Enzymatic activity/volume] in Serum or Pl asma 42 MEDENT ([facility]) Albumin [Mass/volume] in Serum or Plasma 3.9 MEDENT ([facility]) Carbon dioxide, total [Moles/volume] in Serum or Plasma 27 MEDENT ([facility]) Chloride [Moles/volume] in Serum or Plasma 98 MEDENT ([facility]) Calcium [Mass/volume] in Serum or Plasma 9.4 MEDENT ([facility]) Potassium [Moles/volume] in Serum or Plasma 4.8 MEDENT ([facility]) Alkaline phosphatase [Enzymatic activity/volume] in Serum or Plasma 5 7 MEDENT ([facility]) Protein [Mass/volume] in Serum or Plasma 7.5 MEDENT ([facility]) Sodium 134 MEDENT ([facility]) Aspartate aminotransferase [Enzymatic activity/volume] in Serum or Plasma 24 MEDENT ([facility]) Glucose 142 70-100 MEDENT ([facility]) Creatinine For GFR 1.30 MEDENT ([facility]) Urea nitrogen [Mass/volume] in Serum or Plasma 27 MEDENT ([facility]) ID Date Data Source [id number] 01/06/2020 11:04:00 AM EDT MEDENT ([facility]) Name Value Range Interpretation Code Description Data Morena rce(s) Supporting Document(s) Triglycerides 427 MEDENT ([facility]) HDL 27 MEDENT ([facility]) Cholesterol 145 MEDENT ([facility]) Cholesterol in LDL [Mass/volume] in Serum or Plasma by calculation 11 8 MEDENT ([facility]) Chol/HDL Ratio 5.370 MEDENT ([facility]) ID Date Data Source [id number] 01/06/2020 11:04:00 AM EDT MEDENT ([facility]) Name Value Range Interpretation Code Description Data Morena rce(s) Supporting Document(s) Hemoglobin A1c/Hemoglobin.total in Blood 7.9 MEDENT ([facility]) ID Date Data Source [id number] 01/06/2020 11:04:00 AM EDT MEDENT ([facility]) Name Value Range Interpretation Code Description Data Morena rce(s) Supporting Document(s) Red Blood Count 4.70 4.30-6.10 MEDENT ([facility]) White Blood Count 11.1 4.0-10.0 MEDENT ([facility]) Hemoglobin 15.5 MEDENT ([facility]) Hematocrit 46.0 MEDENT ([facility]) Platelets 201 150-450 MEDENT ([facility]) Procedure Social History Code Duration Value Status Description Data Source(s ) Alcohol intake 02/21/2021 12:00:00 AM EST Ex-drinker (finding) comp leted Ex- drinker (finding) [facility] Smoking 01/19/2021 12:00:00 AM EDT Former Smoker completed Former Smoker eCW1 ([facility]) Smoking 12/24/2020 12:00:00 AM EDT Former Smoker completed Former Smoker eCW1 ([facility]) Smoking 12/24/2020 12:00:00 AM EDT Former Smoker completed Former Smoker eCW1 ([facility]) Smoking 12/23/2020 12:00:00 AM EDT Patient is a former smoker completed Patient is a former smoker MEDENT ([facility]) Alcohol intake 12/16/2020 12:00:00 AM EDT Ex-drinker (finding) comp leted Ex- drinker (finding) [facility] Smoking 10/15/2020 12:00:00 AM EDT Former Smoker completed Former Smoker eCW1 ([facility]) Smoking 07/23/2020 12:00:00 AM EDT Former Smoker completed Former Smoker eCW1 ([facility]) Smoking 07/23/2020 12:00:00 AM EDT Former Smoker completed Former Smoker eCW1 ([facility]) Smoking 07/23/2020 12:00:00 AM EDT Former Smoker completed Former Smoker eCW1 ([facility]) Smoking 07/23/2020 12:00:00 AM EDT Former Smoker completed Former Smoker eCW1 ([facility]) Smoking 07/23/2020 12:00:00 AM EDT Former Smoker completed Former Smoker eCW1 ([facility]) Smoking 07/23/2020 12:00:00 AM EDT Former Smoker completed Former Smoker eCW1 ([facility]) Smoking 01/15/2020 12:00:00 AM EDT Former Smoker completed Former Smoker eCW1 ([facility]) Smoking 01/15/2020 12:00:00 AM EDT Former Smoker completed Former Smoker eCW1 ([facility]) Smoking 01/15/2020 12:00:00 AM EDT Former Smoker completed Former Smoker eCW1 ([facility]) Smoking 01/15/2020 12:00:00 AM EDT Former Smoker completed Former Smoker eCW1 ([facility]) Vital Signs ID Date Data Source UNK Name Value Range Interpretation Code Description Data Source(s) Systolic blood pressure 114 mm[Hg] 114 mm[Hg] [facility] Diastolic blood pressure 59 mm[Hg] 59 mm[Hg] [facility] Heart rate 54 /min 54 /min [facility] Body temperature 36.39 Hawa 36.39 Hawa [facility] Respiratory rate 16 /min 16 /min [facility] Oxygen saturation in Arterial blood by Pulse oximetry 95 % 95 % [facility] Body height 170.2 cm 170.2 cm [facility] Body weight 90.357 kg 90.357 kg [facility] Body mass index (BMI) [Ratio] 31.20 kg/m2 31.20 kg/m2 [facility] Respiratory rate 18 /min 18 /min eCW1 ([facility]) Body weight 203.2 [lb_av] 203.2 [lb_av] eCW1 ([facility]) Body height [in_i] eCW1 ([facility]) Body mass index (BMI) [Ratio] 31.82 kg/m2 31.82 kg/m2 eCW1 ([facility]) Heart rate 86 /min 86 /min eCW1 ([facility]) Body temperature 96.8 [degF] 96.8 [degF] eCW1 ( [facility]) Systolic blood pressure 120 mm[Hg] 120 mm[Hg] e CW1 ([facility]) Diastolic blood pressure 70 mm[Hg] 70 mm[Hg] eCW1 ([facility]) Body weight 89.81 kg 89.81 kg eCW1 ([facility]) Body weight 198 [lb_av] 198 [lb_av] eCW1 ([facility]) Body height [in_i] eCW1 ([facility]) Body mass index (BMI) [Ratio] 31.01 kg/m2 31.01 kg/m2 eCW1 ([facility]) Heart rate 96 /min 96 /min eCW1 ([facility]) Respiratory rate 18 /min 18 /min eCW1 ([facility]) Body temperature 97.8 [degF] 97.8 [degF] eCW1 ( [facility]) Systolic blood pressure 140 mm[Hg] 140 mm[Hg] e CW1 ([facility]) Diastolic blood pressure 70 mm[Hg] 70 mm[Hg] eCW1 ([facility]) Systolic blood pressure--sitting 124 mm[Hg] 124 mm[Hg] MEDPABLO ([facility]) Ra, medium cuff Body height 68 [in_i] 68 [in_i] MEDENT ([facility]) 5'8" Body mass index (BMI) [Ratio] 30.1 kg/m2 30.1 k g/m2 MEDENT ([facility]) Diastolic blood pressure--sitting 82 mm[Hg] 82 mm[Hg] MED[facility] ([facility]) Ra, medium cuff Body weight 198.00 [lb_av] 198.00 [lb_av] MEDEN T ([facility]) Systolic blood pressure 104 mm[Hg] 104 mm[Hg] [facility] Diastolic blood pressure 64 mm[Hg] 64 mm[Hg] [facility] Heart rate 63 /min 63 /min [facility] Body temperature 36.89 Hawa 36.89 Hawa [facility] Respiratory rate 18 /min 18 /min [facility] Oxygen saturation in Arterial blood by Pulse oximetry 94 % 94 % [facility] Body weight 90.2 kg 90.2 kg [facility] Post dialysis wt Body mass index (BMI) [Ratio] 30.24 kg/m2 30.24 kg/m2 [facility] Respiratory rate 18 /min 18 /min eCW1 ([facility]) Body weight 214 [lb_av] 214 [lb_av] eCW1 ([facility]) Body height [in_i] eCW1 ([facility]) Body mass index (BMI) [Ratio] 33.51 kg/m2 33.51 kg/m2 W1 ([facility]) Heart rate 78 /min 78 /min eCW1 ([facility]) Body temperature 97.4 [degF] 97.4 [degF] eCW1 ( [facility]) Systolic blood pressure 138 mm[Hg] 138 mm[Hg] e CW1 ([facility]) Diastolic blood pressure 82 mm[Hg] 82 mm[Hg] eCW1 ([facility]) Body mass index (BMI) [Ratio] 32.8 kg/m2 32.8 k g/m2 MEDENT ([facility]) Body weight 216.00 [lb_av] 216.00 [lb_av] MEDEN T ([facility]) Body height 68 [in_i] 68 [in_i] MEDENT ([facility]) 5'8" Systolic blood pressure--sitting 126 mm[Hg] 126 mm[Hg] MEDENT ([facility]) Ra, large cuff Diastolic blood pressure--sitting 82 mm[Hg] 82 mm[Hg] MEDENT ([facility]) Ra, large cuff Body weight 220.2 [lb_av] 220.2 [lb_av] eCW1 ([facility]) Body mass index (BMI) [Ratio] 34.48 kg/m2 34.48 kg/m2 W1 ([facility]) Heart rate 72 /min 72 /min eCW1 ([facility]) Respiratory rate 18 /min 18 /min eCW1 ([facility]) Body temperature 97.7 [degF] 97.7 [degF] eCW1 ( [facility]) Systolic blood pressure 110 mm[Hg] 110 mm[Hg] e CW1 ([facility]) Diastolic blood pressure 70 mm[Hg] 70 mm[Hg] eCW1 ([facility]) Body height [in_i] eCW1 ([facility]) Heart rate 74 /min 74 /min MEDENT ([facility]) Respiratory rate 16 /min 16 /min MEDENT ( [facility]) nonlabored Systolic blood pressure--sitting 128 mm[Hg] 128 mm[Hg] MEDENT ([facility]) Ra, large cuff Diastolic blood pressure--sitting 82 mm[Hg] 82 mm[Hg] MEDENT ([facility]) Ra, large cuff Body weight 230.00 [lb_av] 230.00 [lb_av] MEDEN T ([facility]) Body height 68 [in_i] 68 [in_i] MEDENT ([facility]) 5'8" Body mass index (BMI) [Ratio] 35.0 kg/m2 35.0 k g/m2 MEDENT ([facility]) Body weight 238 [lb_av] 238 [lb_av] eCW1 ([facility]) Body height [in_i] eCW1 ([facility]) Body mass index (BMI) [Ratio] 37.27 kg/m2 37.27 kg/m2 eCW1 ([facility]) Heart rate 78 /min 78 /min eCW1 ([facility]) Respiratory rate 18 /min 18 /min eCW1 ([facility]) Body temperature 97.9 [degF] 97.9 [degF] eCW1 ( [facility]) Systolic blood pressure 140 mm[Hg] 140 mm[Hg] e CW1 ([facility]) Diastolic blood pressure 90 mm[Hg] 90 mm[Hg] eCW1 ([facility]) Patient Treatment Plan of Care Planned Activity Planned Date Details Description Data Source (s) 24 HR metoprolol succinate 50 MG Extended Release Oral Tablet 02/22/2021 12:00:00 AM EST [facility] Amiodarone hydrochloride 200 MG Oral Tablet 02/22/2021 12:00:00 AM EST [facility] Albuterol 0.833 MG/ML / Ipratropium [place] 0.167 MG/M L Inhalant Solution 02/21/2021 07:24:50 AM EST [facility] normal saline flush 0.9 % injection 3 mL 02/21/2021 07:00:00 AM EST [facility] normal saline flush 0.9 % injection 3 mL 02/21/2021 07:00:00 AM EST [facility] Albuterol 0.83 MG/ML Inhalant Solution 02/21/2021 06:33:07 AM EST [facility] ondansetron (ZOFRAN) injection 4 mg 02/21/2021 05:55:12 AM EST [facility] Furosemide 40 MG Oral Tablet 12/17/2020 12:00:00 AM EDT [facility] clopidogrel 75 MG Oral Tablet 12/17/2020 12:00:00 AM EDT [facility] Acetaminophen 325 MG Oral Tablet 12/15/2020 12:45:21 PM EDT [facility] Albuterol 0.83 MG/ML Inhalant Solution 12/13/2020 01:19:02 PM EDT [facility] Nitroglycerin 0.4 MG Sublingual Tablet 12/13/2020 01:16:55 PM EDT [facility] Lancets - 07/30/2020 12:00:00 AM EDT e CW1 ([facility]) FreeStyle Lite Test - 07/30/2020 12:00:00 AM EDT eCW1 ([facility]) Blood Glucose Monitor System w/Device 07/30/2020 12:00:00 AM EDT eCW1 ([facility]) Blood Glucose Test - 07/30/2020 12:00:00 AM EDT eCW1 ([facility]) Lancets - 07/30/2020 12:00:00 AM EDT e CW1 ([facility]) FreeStyle Lite Test - 07/30/2020 12:00:00 AM EDT eCW1 ([facility]) Blood Glucose Monitor System w/Device 07/30/2020 12:00:00 AM EDT eCW1 ([facility]) Blood Glucose Test - 07/30/2020 12:00:00 AM EDT eCW1 ([facility]) Lancets - 07/30/2020 12:00:00 AM EDT e CW1 ([facility]) FreeStyle Lite Test - 07/30/2020 12:00:00 AM EDT eCW1 ([facility]) Blood Glucose Monitor System w/Device 07/30/2020 12:00:00 AM EDT eCW1 ([facility]) Blood Glucose Test - 07/30/2020 12:00:00 AM EDT eCW1 ([facility]) Lancets - 07/30/2020 12:00:00 AM EDT e CW1 ([facility]) FreeStyle Lite Test - 07/30/2020 12:00:00 AM EDT eCW1 ([facility]) Blood Glucose Monitor System w/Device 07/30/2020 12:00:00 AM EDT eCW1 ([facility]) Blood Glucose Test - 07/30/2020 12:00:00 AM EDT eCW1 ([facility]) 24 HR Metformin hydrochloride 500 MG Extended Release Oral Tablet 07/28/2020 12:00:00 AM EDT eCW1 ([facility]) 24 HR Metformin hydrochloride 500 MG Extended Release Oral Tablet 07/28/2020 12:00:00 AM EDT eCW1 ([facility]) 24 HR Metformin hydrochloride 500 MG Extended Release Oral Tablet 07/28/2020 12:00:00 AM EDT eCW1 ([facility]) 24 HR Metformin hydrochloride 500 MG Extended Release Oral Tablet 07/28/2020 12:00:00 AM EDT eCW1 ([facility]) 24 HR Metformin hydrochloride 500 MG Extended Release Oral Tablet 07/28/2020 12:00:00 AM EDT eCW1 ([facility]) 24 HR Metformin hydrochloride 500 MG Extended Release Oral Tablet 07/28/2020 12:00:00 AM EDT eCW1 ([facility]) 24 HR Metformin hydrochloride 500 MG Extended Release Oral Tablet 07/28/2020 12:00:00 AM EDT eCW1 ([facility]) Steglatro 15 MG 02/20/2020 12:00:00 AM EST eCW1 ([facility]) Steglatro 15 MG 02/20/2020 12:00:00 AM EST eCW1 ([facility]) montelukast 10 MG Oral Tablet [Singulair] 02/12/2020 12:00:00 AM ES T eCW1 ([facility]) montelukast 10 MG Oral Tablet [Singulair] 02/12/2020 12:00:00 AM ES T eCW1 ([facility]) Steglatro 15 MG 01/28/2020 12:00:00 AM EDT eCW1 ([facility]) Steglatro 15 MG 01/28/2020 12:00:00 AM EDT eCW1 ([facility]) Steglatro 15 MG 01/28/2020 12:00:00 AM EDT eCW1 ([facility]) Steglatro 15 MG 01/28/2020 12:00:00 AM EDT eCW1 ([facility]) OneTouch Ultra II Test Strips 01/15/2020 12:00:00 AM EDT eCW1 ([facility]) OneTouch Ultra II Test Strips 01/15/2020 12:00:00 AM EDT eCW1 ([facility]) OneTouch Ultra II Test Strips 01/15/2020 12:00:00 AM EDT eCW1 ([facility]) empagliflozin 10 MG Oral Tablet [Jardiance] 01/15/2020 12:00:00 AM EDT eCW1 ([facility]) OneTouch Ultra II Test Strips 01/15/2020 12:00:00 AM EDT eCW1 ([facility]) montelukast 10 MG Oral Tablet [Singulair] 01/15/2020 12:00:00 AM ED T eCW1 ([facility]) empagliflozin 10 MG Oral Tablet [Jardiance] 01/15/2020 12:00:00 AM EDT eCW1 ([facility]) OneTouch Ultra II Test Strips 01/15/2020 12:00:00 AM EDT eCW1 ([facility]) montelukast 10 MG Oral Tablet [Singulair] 01/15/2020 12:00:00 AM ED T eCW1 ([facility]) OneTouch Ultra II Test Strips 01/15/2020 12:00:00 AM EDT eCW1 ([facility]) Bisoprolol Fumarate 5 MG Oral Tablet [facility] Ibuprofen 200 MG Oral Tablet [facility] Chlorthalidone 25 MG Oral Tablet [facility] Amlodipine 10 MG Oral Tablet [facility] clopidogrel 75 MG Oral Tablet [facility] PARoxetine (PAXIL) 20 MG tablet [facility] Metformin hydrochloride 850 MG Oral Tablet [facility] Atenolol 50 MG Oral Tablet [facility] Losartan Potassium 50 MG Oral Tablet [facility]
[2021-02-24 13:10] LABS: ALBUMIN 4.4 GM/DL (3.2-5.2); ALT/SGPT 34 U/L (12-78); BILIRUBIN,DIRECT 0.2 MG/DL (0.0-0.2); BILIRUBIN,TOTAL 0.7 MG/DL (0.2-1.0); BLOOD UREA NITROGEN 15 MG/DL (7-18); CARBON DIOXIDE LEVEL 30 MEQ/L (21-32); CHLORIDE LEVEL 99 MEQ/L (98-107); CREATININE FOR GFR 1.21 MG/DL (0.70-1.30); GLOMERULAR FILTRATION RATE > 60.0 (>56); GLUCOSE, FASTING 144 MG/DL (70-100); LIPASE 109 U/L (73-393); MAGNESIUM LEVEL 2.1 MG/DL (1.8-2.4); POTASSIUM SERUM 4.4 MEQ/L (3.5-5.1); SODIUM LEVEL 138 MEQ/L (136-145)
[2021-02-24 13:12] LABS: CK-MB VALUE MASS 2.8 NG/ML (<3.6); CPK CREATINE PHOSPHOKINASE 243 U/L (39-308); MB/CK RELATIVE INDEX 1.15 (< OR =4); TROPONIN I < 0.02 NG/ML (< 0.10)
[2021-02-24 18:00] VITALS: BP 141/78
[2021-02-24 18:16] LABS: CK-MB VALUE MASS 2.5 NG/ML (<3.6); CPK CREATINE PHOSPHOKINASE 229 U/L (39-308); MB/CK RELATIVE INDEX 1.09 (< OR =4); TROPONIN I < 0.02 NG/ML (< 0.10)
--- NOTE | 2021-02-26 07:56 | ECGEPIP ---
[facility] - ED Test Date: 2021-02-24 Pat Name: BERT KIRK Department: Room: - Gender: Male Host Hostess: GERMAN : 1960 Requested By: Caridad Whitmore Order Number: [id number] Reading MD: Caridad Whitmore Measurements Intervals [place] Rate: 76 P: 54 W[place]: 164 QRS: -15 QRSD: 132 T: 9 QT: 404 QTc: 454 Interpretive Statements Normal sinus rhythm Nonspecific intraventricular block Inferior infarct , age undetermined NSTTW abnormalities decreased rate 02/21/21 Electronically Signed on 02-26-2021 7:55:48 EST by Caridad Whitmore
--- NOTE | 2021-02-26 08:00 | ECGEPIP ---
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
== END 2021-02-24 19:04 | disposition home or self-care (01) ==
LOC: M ED 11:04
DX: R45.89 Other symptoms and signs involving emotional state (principal); I25.2 Old myocardial infarction; I25.10 Atherosclerotic heart disease of native coronary artery without angina pectoris; E11.9 Type 2 diabetes mellitus without complications; I51.7 Cardiomegaly; I47.2 Ventricular tachycardia; E78.5 Hyperlipidemia, unspecified; F17.200 Nicotine dependence, unspecified, uncomplicated; F41.9 Anxiety disorder, unspecified; K57.30 Diverticulosis of large intestine without perforation or abscess without bleeding; Z95.810 Presence of automatic (implantable) cardiac defibrillator; Z79.899 Other long term (current) drug therapy

== ENCOUNTER 2021-03-04 07:26 | Emergency (ER) | payer OTHER ==
[~2021-03-04] VITALS: Ht 170.2 cm; Wt 90.3 kg
[~2021-03-04 07:26] MED LIST changes: +AMIO200T3; +METO1TAB7
--- OUTSIDE RECORDS SUMMARY | 2021-03-04 07:35 | CCD | Continuity of Care Document ---
Author Organization Unknown Address Unknown Phone Unavailable Care Team Providers [facility] Name Role Phone Link Becker MD AUTM [phone] Lee Ann Boswell AUTM [phone] Leo Hylton MD AUTM [phone] Problems Active Problems Provider Date Precordial pain Abiodun Monte MD Onset: 06/07/2016 Cardiomegaly Abiodun Monte MD Onset: 06/07/2016 Electrocardiogram abnormal Abiodun Monte MD Onset: 2016 Old myocardial infarction Abiodun Monte MD Onset: 017 Chronic obstructive lung disease Abiodun Monte MD Onset: 06/07/2016 Tobacco user Abiodun Monte MD Onset: 06/07/2016 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 Abiodun [...] Date Facility Test Result H/L Range Note CMP 02/24/2021 [facility] - not interfaced (315)- - Albumin Serum/Plasma 4.4 Alt - SGPT 34 Calcium Ser/Plasma Mass/Vol 10.0 Carbon Dioxide Ser/Plasm 30 Chloride Serum/Plasma 99 Alkaline Phosphatase 71 Potassium 4.4 Protein Total 8.0 Sodium 138 Ast - Sgot 22 BUN - Urea Nitrogen 15 Glucose 144 High 70-100 Creatinine For GFR 1.21 Laboratory test finding 02/24/2021 [facility] - not interf aced (315)- - Magnesium Level 2.1 1.8-2.4 Lipase 109 CBC without Differential 02/24/2021 [facility] - not inter faced (315)- - White Blood Count 12.2 High 4.0-10.0 Red Blood Count 5.26 4.30-6.10 Platelets 215 150-450 Hemoglobin 16.8 Hematocrit 50.3 CPK & CPK MB 02/24/2021 [facility] - not interfaced (315)- - CPK 243 CPK-MB 2.8 Laboratory test finding 02/24/2021 [facility] - not interf aced (315)- - Troponin <0.02 Laboratory test finding 02/21/2021 [facility] NT Probnp QN Ser/Plas 566 Troponin 0.05 Magnesium Level 2.0 Laboratory test finding 01/28/[address] [facility] [phone] NT-Pro BNP 762 pg/mL High <125 CMP 01/28/2021 [facility] nter [phone] Glucose, Fasting 141 mg/dL High 70-100 Blood [...] Ratio 1.1 Normal Laboratory test finding 01/28/2021 [facility] [phone] Magnesium Level 2.1 mg/dL Normal 1.8-2.4 Laboratory test finding 12/27/2020 [facility] [phone] NT-Pro BNP 1141 pg/mL High <125 CMP 12/27/2020 [facility] nter [phone] Glucose, Fasting 168 mg/dL High 70-100 Blood [...] Ratio 1.0 Normal Laboratory test finding 12/27/2020 [facility] [phone] Magnesium Level 1.9 mg/dL Normal 1.8-2.4 Liver Profile 12/13/2020 [facility] nter [phone] Ast/Sgot 5044 U/L High 7-37 Alt/SGPT 5023 U/L High 12-78 Alkaline Phosphatase 49 U/L Normal 45-117 Bilirubin,Total 0.8 mg/dL Normal 0.2-1.0 Bilirubin,Direct 0.4 mg/dL High 0.0-0.2 Total Protein 6.7 GM/DL Normal 6.4-8.2 Albumin 3.4 GM/DL Normal 3.2-5.2 Albumin/Globulin Ratio 1.0 Normal Basic Metabolic Profile 12/13/2020 [facility] [phone] Glucose, Fasting 150 mg/dL High 70-100 Blood [...] mg/dL Normal 8.5-10.1 Laboratory test finding 12/13/2020 [facility] [phone] Magnesium Level 1.9 mg/dL Normal 1.8-2.4 NT-Pro BNP 87811 pg/mL High <125 Lipase 204 U/L Normal 73-393 Thyroid Stimulating Hormone 2.450 uIU/ML Normal 0.358-3.740 Prothrombin Time/Inr 12/13/2020 [facility] [phone] Prothrombin Time 22.4 seconds High 12.7-14.5 Inr 1.92 Normal 4 1 Units are mL/min/1.73 m2 Chronic Kidney Disease Staging per NKF: Stage I & II GFR >=60 Normal to Mildly Decreased Stage III GFR 30-59 Moderately Decreased Stage IV GFR 15-29 Severely Decreased Stage V GFR <15 Very Little GFR Left ESRD GFR <15 on COMMISSARY AGENT 2 Units are mL/min/1.73 m2 Chronic Kidney Disease Staging per NKF: Stage I & II GFR >=60 Normal to Mildly Decreased Stage III GFR 30-59 Moderately Decreased Stage IV GFR 15-29 Severely Decreased Stage V GFR <15 Very Little GFR Left ESRD GFR <15 on COMMISSARY AGENT 3 Units are mL/min/1.73 m2 Chronic Kidney Disease Staging per NKF: Stage I & II GFR >=60 Normal to Mildly Decreased Stage III GFR 30-59 Moderately Decreased Stage IV GFR 15-29 Severely Decreased Stage V GFR <15 Very Little GFR Left ESRD GFR <15 on COMMISSARY AGENT 4 THERAPUTIC HUMAN INR VALUES INDICATIONS NORMAL RANGES PROPHYLAXIS/TREATMENT OF: VENOUS THROMBOSIS 2.0-3.0 PULMONARY EMBOLISM 2.0-3.0 PREVENTION OF SYSTEMIC EMBOLISM FROM: TISSUE HEART VALVES 2.0-3.0 ACUTE MYOCARDIAL INFARCTION 2.0-3.0 VALVULAR HEART DISEASE 2.0-3.0 ATRIAL FIBRILLATION 2.0-3.0 MECHANICAL VALVES(HIGH RISK) 2.5-3.5 RECURRENT MYOCARDIAL INFARCTION 2.5-3.5 Procedures Date Code Description Status 01/06/2021 17439 Icd Interrogation Any Leads Comp leted 12/23/2020 95613 Office/Outpatient Established Mo d MDM 30-39 Min Completed 12/23/2020 91304 ECG 12-Lead Completed Medical Devices Description No Information Available Encounters Type Date Location Provider Dx Diagnosis Office Visit 12/23/2020 11:15a Main Office [facility] De La Fuente I25 .10 Athscl heart disease of seminole coronary artery w/o ang pctrs I47.2 Ventricular tachycardia Z95.810 Presence of automatic (impla ntable) cardiac defibrillator F17.210 Nicotine dependence, cigaret marilee, uncomplicated Assessments Date Code Description Provider 01/06/2021 Z95.810 Presence of automatic (implantab le) cardiac defibrillator AZAEL De La Fuente 12/23/2020 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 with AZAEL De La Fuente 12/23/2020 I47.2 Ventricular tachycardia AZAEL Lin 12/23/2020 Z95.810 Presence of automatic (implantab le) cardiac defibrillator AZAEL De La Fuente 12/23/2020 F17.210 Nicotine dependence, cigarettes, uncomplicated AZAEL De La Fuente Plan of Treatment Future Appointment(s):* 02/25/2021 9:15 am - [facility] De La Fuente at Main Office * 04/22/2021 3:00 pm - AZAEL eD La Fuente at Main Office * 04/07/2021 7:00 am - [facility] at Main Office * 01/09/2022 9:30 am - [facility] De La Fuente at Main Office 12/23/2020 - [facility] De La Fuente* 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 [place] Created [address] [facility] [address] [phone]
--- OUTSIDE RECORDS SUMMARY | 2021-03-04 07:35 | CCD | Continuity of Care Document ---
Author Organization Unknown Address Unknown Phone Unavailable Care Team Providers Care [facility] Name Role Phone Link Becker MD AUTM [phone] Lee Ann Boswell AUTM [phone] Leo Hylton MD AUTM [phone] Problems Active Problems Provider Date Precordial pain Abiodun Monte MD Onset: 06/07/2016 Cardiomegaly Abiodun Monte MD Onset: 06/07/2016 Electrocardiogram abnormal Abiodun Monte MD Onset: 2016 Old myocardial infarction Abiodun Monte MD Onset: 017 Chronic obstructive lung disease Abiodun Monte MD Onset: 06/07/2016 Tobacco user Abiodun Monte MD Onset: 06/07/2016 Atherosclerotic heart disease of [place] coronary arter y without angina pectoris Abiodun [...] Test Result H/L Range Note CMP 02/24/2021 [facility] - not interfaced (315)- - Albumin Serum/Plasma 4.4 Alt - SGPT 34 Calcium Ser/Plasma Mass/Vol 10.0 Carbon Dioxide Ser/Plasm 30 Chloride Serum/Plasma 99 Alkaline Phosphatase 71 Potassium 4.4 Protein Total 8.0 Sodium 138 Ast - Sgot 22 BUN - Urea Nitrogen 15 Glucose 144 High 70-100 Creatinine For GFR 1.21 Laboratory test finding 02/24/2021 [facility] - not interf aced (315)- - Magnesium Level 2.1 1.8-2.4 Lipase 109 CBC without Differential 02/24/2021 [facility] - not inter faced (315)- - White Blood Count 12.2 High 4.0-10.0 Red Blood Count 5.26 4.30-6.10 Platelets 215 150-450 Hemoglobin 16.8 Hematocrit 50.3 CPK & CPK MB 02/24/2021 [facility] - not interfaced (315)- - CPK 243 CPK-MB 2.8 Laboratory test finding 02/24/2021 [facility] - not interf aced (315)- - Troponin <0.02 Laboratory test finding 02/21/2021 [facility] NT Probnp QN Ser/Plas 566 Troponin 0.05 Magnesium Level 2.0 Laboratory test finding 01/28/2021 [facility] [phone] NT-Pro BNP 762 pg/mL High <125 CMP 01/28/2021 [facility] nter [phone] Glucose, Fasting 141 mg/dL High 70-100 Blood [...] Ratio 1.1 Normal Laboratory test finding 01/28/2021 [facility] [phone] Magnesium Level 2.1 mg/dL Normal 1.8-2.4 Laboratory test finding 12/27/2020 [facility] [phone] NT-Pro BNP 1141 pg/mL High <125 CMP 12/27/2020 [facility] nter [phone] Glucose, Fasting 168 mg/dL High 70-100 Blood [...] Ratio 1.0 Normal Laboratory test finding 12/27/2020 [facility] [phone] Magnesium Level 1.9 mg/dL Normal 1.8-2.4 Liver Profile 12/13/2020 [facility] nter [phone] Ast/Sgot 5044 U/L High 7-37 Alt/SGPT 5023 U/L High 12-78 Alkaline Phosphatase 49 U/L Normal 45-117 Bilirubin,Total 0.8 mg/dL Normal 0.2-1.0 Bilirubin,Direct 0.4 mg/dL High 0.0-0.2 Total Protein 6.7 GM/DL Normal 6.4-8.2 Albumin 3.4 GM/DL Normal 3.2-5.2 Albumin/Globulin Ratio 1.0 Normal Basic Metabolic Profile 12/13/2020 [facility] [phone] Glucose, Fasting 150 mg/dL High 70-100 Blood [...] mg/dL Normal 8.5-10.1 Laboratory test finding 12/13/2020 [facility] [phone] Magnesium Level 1.9 mg/dL Normal 1.8-2.4 NT-Pro BNP 44245 pg/mL High <125 Lipase 204 U/L Normal 73-393 Thyroid Stimulating Hormone 2.450 uIU/ML Normal 0.358-3.740 Prothrombin Time/Inr 12/13/2020 [facility] [phone] Prothrombin Time 22.4 seconds High 12.7-14.5 Inr 1.92 Normal 4 1 Units are mL/min/1.73 m2 Chronic Kidney Disease Staging per NKF: Stage I & II GFR >=60 Normal to Mildly Decreased Stage III GFR 30-59 Moderately Decreased Stage IV GFR 15-29 Severely Decreased Stage V GFR <15 Very Little GFR Left ESRD GFR <15 on CHARGEMASTER SPECIALIST 2 Units are mL/min/1.73 m2 Chronic Kidney Disease Staging per NKF: Stage I & II GFR >=60 Normal to Mildly Decreased Stage III GFR 30-59 Moderately Decreased Stage IV GFR 15-29 Severely Decreased Stage V GFR <15 Very Little GFR Left ESRD GFR <15 on CHARGEMASTER SPECIALIST 3 Units are mL/min/1.73 m2 Chronic Kidney Disease Staging per NKF: Stage I & II GFR >=60 Normal to Mildly Decreased Stage III GFR 30-59 Moderately Decreased Stage IV GFR 15-29 Severely Decreased Stage V GFR <15 Very Little GFR Left ESRD GFR <15 on CHARGEMASTER SPECIALIST 4 THERAPUTIC HUMAN INR VALUES INDICATIONS NORMAL RANGES PROPHYLAXIS/TREATMENT OF: VENOUS THROMBOSIS 2.0-3.0 PULMONARY EMBOLISM 2.0-3.0 PREVENTION OF SYSTEMIC EMBOLISM FROM: TISSUE HEART VALVES 2.0-3.0 ACUTE MYOCARDIAL INFARCTION 2.0-3.0 VALVULAR HEART DISEASE 2.0-3.0 ATRIAL FIBRILLATION 2.0-3.0 MECHANICAL VALVES(HIGH RISK) 2.5-3.5 RECURRENT MYOCARDIAL INFARCTION 2.5-3.5 Procedures Date Code Description Status 01/06/2021 71319 Icd Interrogation Any Leads Comp leted 12/23/2020 89497 Office/Outpatient Established Mo d MDM 30-39 Min Completed 12/23/2020 90571 ECG 12-Lead Completed Medical Devices Description No Information Available Encounters Type Date Location Provider Dx Diagnosis Office Visit 12/23/2020 11:15a Main Office AZA[facility] De La Fuente I25 .10 Athscl heart disease of [place] coronary artery w/o ang pctrs I47.2 Ventricular tachycardia Z95.810 Presence of automatic (impla ntable) cardiac defibrillator F17.210 Nicotine dependence, cigaret marilee, uncomplicated Assessments Date Code Description Provider 01/06/2021 Z95.810 Presence of automatic (implantab le) cardiac defibrillator AZAEL De La Fuente 12/23/2020 I25.10 Atherosclerotic heart disease of [place] coronary artery with AZAEL De La Fuente 12/23/2020 I47.2 Ventricular tachycardia AZAEL Lin 12/23/2020 Z95.810 Presence of automatic (implantab le) cardiac defibrillator AZAEL De La Fuente 12/23/2020 F17.210 Nicotine dependence, cigarettes, uncomplicated AZAEL De La Fuente Plan of Treatment Future Appointment(s):* 02/25/2021 9:15 am - [facility] De La Fuente at Main Office * 04/22/2021 3:00 pm - [facility] De La Fuente at Main Office * 04/07/2021 7:00 am - [facility] at Main Office * 01/09/2022 9:30 am - AZALE De La Fuente at Main Office 12/23/2020 - [facility] De La Fuente* I25.10 Atherosclerotic heart disease of [place] coronary artery with* Recommendations:* Continue atorvastatin, bisoprolol, [...] Referral Status Appt Date Yaron Malloy MD [facility] AUTH EMR-EXPIRES 10/28/20. [place] Created [id number] [facility] [id number] [phone]
--- OUTSIDE RECORDS SUMMARY | 2021-03-04 07:35 | CCD | Continuity of Care Document ---
Author Author Dilan VASQUEZ Organization Unknown Address [address] [place] [address], [place] [address] Phone [phone] Care Team Providers Care Voltage Tester Name Role Phone Link Becker MD AUTM [phone] Lee Ann Boswell AUTM [phone] Leo Hylton MD AUTM [phone] Problems Active Problems Provider Date Precordial pain Abiodun Monte MD Onset: 06/07/2016 Cardiomegaly Abiodun Monte MD Onset: 06/07/2016 Electrocardiogram abnormal Abiodun Monte MD Onset: 2016 Old myocardial infarction Abiodun Monte MD Onset: 017 Chronic obstructive lung disease Abiodun Monte MD Onset: 06/07/2016 Tobacco user Abiodun Monte MD Onset: 06/07/2016 Atherosclerotic heart disease of [place] coronary arter y without angina pectoris Abiodun [...] not consume alcohol Tobacco Use Start: Unknown Light tobacco smoker (10 or fewe r cigarettes/day) Patient smoked a few cigarettes after ER/hospital visit. LM Smoking Status Reviewed: 02/25/21 Light tobacco smoker (10 or fewer cigarettes/day) Patient smoked a few cigarettes after ER /hospital visit. LM Exercise Type/Frequency Does yardwork twice a we ek and some snow shoveling, snow blowing as needed Exercise Type/Frequency Does housework sporadica lly Exercise Limitations Back Pain Exercise Limitations Joint Pain bilateral k nees Allergies and adverse reactions Description No Known Drug Allergies Medications Active Medications SIG Qnty Indications Ordering Provide r Date Amiodarone HCL 200mg Tablets 1 by mouth bid Unknown 02/24/2021 Metoprolol Succinate ER 50mg Tablets ER 24HR 1 by mouth every day Unknown 021 Clopidogrel Bisulfate 75mg Tablets 1 by mouth every day 30tabs AZAEL De La Fuente 1 Furosemide 40mg Tablets 1 by mouth twice every day 60tabs AZAEL De La Fuente 1 Metformin HCL 500mg Tablets 2 by mouth once daily Leo Hylton MD 12/22/2020 Montelukast Sodium 10mg Tablets 1 by mouth [...] 1 by mouth every day Unknown 06/06/2016 Ventolin 90mcg/Act Aerosol Unknown History Medications Nicotine Transdermal System Step 1 21mg/24HR Patches 24HR 1 patch each day for 6 weeks 42units F17.210 Abiodun de la garza MD 12/23/2020 - 02/24/2021 Immunizations Description No Information Available Vital Signs Date Vital Result Comment 02/25/2021 9:12am Weight 199.00 lb Home Weight 200lb home weight Height 68 inches 5'8" BMI (Body Mass Index) 30.3 kg/m2 BP Systolic Sitting 148 mmHg Ra, large cuff BP Diastolic Sitting 82 mmHg Ra, large cuff 02/25/2021 9:10am Weight 199.00 lb Results Test Acquired Date Facility Test Result H/L Range Note CMP 02/24/2021 [facility] - not interfaced (315)- - Albumin Serum/Plasma 4.4 Alt - SGPT 34 Calcium Ser/Plasma Mass/Vol 10.0 Carbon Dioxide Ser/Plasm 30 Chloride Serum/Plasma 99 Alkaline Phosphatase 71 Potassium 4.4 Protein Total 8.0 Sodium 138 Ast - Sgot 22 BUN - Urea Nitrogen 15 Glucose 144 High 70-100 Creatinine For GFR 1.21 Laboratory test finding 02/24/2021 [facility] - not interf aced (315)- - Magnesium Level 2.1 1.8-2.4 Lipase 109 CBC without Differential 02/24/2021 [facility] - not inter faced (315)- - White Blood Count 12.2 High 4.0-10.0 Red Blood Count 5.26 4.30-6.10 Platelets 215 150-450 Hemoglobin 16.8 Hematocrit 50.3 CPK & CPK MB 02/24/2021 [facility] - not interfaced (315)- - CPK 243 CPK-MB 2.8 Laboratory test finding 02/24/2021 [facility] - not interf aced (315)- - Troponin <0.02 Laboratory test finding 02/21/2021 [facility] NT Probnp QN Ser/Plas 566 Troponin 0.05 Magnesium Level 2.0 Laboratory test finding 01/28/2021 [facility] [phone] NT-Pro BNP 762 pg/mL High <125 CMP 01/28/2021 [facility]ter [phone] Glucose, Fasting 141 mg/dL High 70-100 Blood [...] Ratio 1.1 Normal Laboratory test finding 01/28/2021 [facility] [phone] Magnesium Level 2.1 mg/dL Normal 1.8-2.4 Laboratory test finding 12/27/2020 [facility] [phone] NT-Pro BNP 1141 pg/mL High <125 CMP 12/27/2020 [facility] [phone] Glucose, Fasting 168 mg/dL High 70-100 Blood [...] U/L Normal 7-37 Alt/SGPT 116 U/L High - Alkaline Phosphatase 71 U/L Normal 45-117 Bilirubin,Total 0.7 mg/dL Normal 0.2-1.0 Total Protein 7.4 GM/DL Normal 6.4-8.2 Albumin 3.7 GM/DL Normal 3.2-5.2 Albumin/Globulin Ratio 1.0 Normal Laboratory test finding 12/27/2020 [facility] [phone] Magnesium Level 1.9 mg/dL Normal 1.8-2.4 Liver Profile 12/13/2020 [facility] [phone] Ast/Sgot 5044 U/L High 7-37 Alt/SGPT 5023 U/L High 12-78 Alkaline Phosphatase 49 U/L Normal 45-117 Bilirubin,Total 0.8 mg/dL Normal 0.2-1.0 Bilirubin,Direct 0.4 mg/dL High 0.0-0.2 Total Protein 6.7 GM/DL Normal 6.4-8.2 Albumin 3.4 GM/DL Normal 3.2-5.2 Albumin/Globulin Ratio 1.0 Normal Basic Metabolic Profile 12/13/2020 [facility] [phone] Glucose, Fasting 150 mg/dL High 70-100 Blood [...] mg/dL Normal 8.5-10.1 Laboratory test finding 12/13/2020 [facility] [phone] Magnesium Level 1.9 mg/dL Normal 1.8-2.4 NT-Pro BNP 14374 pg/mL High <125 Lipase 204 U/L Normal 73-393 Thyroid Stimulating Hormone 2.450 uIU/ML Normal 0.358-3.740 Prothrombin Time/Inr 12/13/2020 [facility] [phone] Prothrombin Time 22.4 seconds High 12.7-14.5 Inr 1.92 Normal 4 1 Units are mL/min/1.73 m2 Chronic Kidney Disease Staging per NKF: Stage I & II GFR >=60 Normal to Mildly Decreased Stage III GFR 30-59 Moderately Decreased Stage IV GFR 15-29 Severely Decreased Stage V GFR <15 Very Little GFR Left ESRD GFR <15 on CAREER AND TECHNOLOGY EDUCATION TEACHER 2 Units are mL/min/1.73 m2 Chronic Kidney Disease Staging per NKF: Stage I & II GFR >=60 Normal to Mildly Decreased Stage III GFR 30-59 Moderately Decreased Stage IV GFR 15-29 Severely Decreased Stage V GFR <15 Very Little GFR Left ESRD GFR <15 on CAREER AND TECHNOLOGY EDUCATION TEACHER 3 Units are mL/min/1.73 m2 Chronic Kidney Disease Staging per NKF: Stage I & II GFR >=60 Normal to Mildly Decreased Stage III GFR 30-59 Moderately Decreased Stage IV GFR 15-29 Severely Decreased Stage V GFR <15 Very Little GFR Left ESRD GFR <15 on CAREER AND TECHNOLOGY EDUCATION TEACHER 4 THERAPUTIC HUMAN INR VALUES INDICATIONS NORMAL RANGES PROPHYLAXIS/TREATMENT OF: VENOUS THROMBOSIS 2.0-3.0 PULMONARY EMBOLISM 2.0-3.0 PREVENTION OF SYSTEMIC EMBOLISM FROM: TISSUE HEART VALVES 2.0-3.0 ACUTE MYOCARDIAL INFARCTION 2.0-3.0 VALVULAR HEART DISEASE 2.0-3.0 ATRIAL FIBRILLATION 2.0-3.0 MECHANICAL VALVES(HIGH RISK) 2.5-3.5 RECURRENT MYOCARDIAL INFARCTION 2.5-3.5 Procedures Date Code Description Status 02/25/2021 13179 Office/Outpatient Established Mo d MDM 30-39 Min Completed 02/25/2021 01176 ECG 12-Lead Completed 01/06/2021 60416 Icd Interrogation Any Leads Comp leted 12/23/2020 35851 Office/Outpatient Established Mo d MDM 30-39 Min Completed 12/23/2020 90423 ECG 12-Lead Completed Medical Devices Description No Information Available Encounters Type Date Location Provider Dx Diagnosis Office Visit 02/25/2021 9:15a Main Office AZAEL De La Fuente I47 .2 Ventricular tachycardia Z95.810 Presence of automatic (impla ntable) cardiac defibrillator I25.10 Athscl heart disease of [place] coronary artery w/o ang pctrs I25.5 Ischemic cardiomyopathy I11.0 Hypertensive heart disease w ith heart failure R94.31 Abnormal electrocardiogram [ ECG] [EKG] Z71.3 Dietary counseling and surve illance Office Visit 12/23/2020 11:15a Main Office AZAEL De La Fuente I25 .10 Athscl heart disease of [place] coronary artery w/o ang pctrs I47.2 Ventricular tachycardia Z95.810 Presence of automatic (impla ntable) cardiac defibrillator F17.210 Nicotine dependence, cigaret marilee, uncomplicated Assessments Date Code Description Provider 02/25/2021 I47.2 Ventricular tachycardia AZAEL Lin 02/25/2021 Z95.810 Presence of automatic (implantab le) cardiac defibrillator AZAEL De La Fuente 02/25/2021 I25.10 Atherosclerotic heart disease of [place] coronary artery with AZAEL De La Fuente 02/25/2021 I25.5 Ischemic cardiomyopathy AZAEL Lin 02/25/2021 I11.0 Hypertensive heart disease with heart failure AZAEL De La Fuente 02/25/2021 R94.31 Abnormal electrocardiogram [ECG] [EKG] AZAEL De La Fuente 02/25/2021 Z71.3 Dietary counseling and surveilla nce AZAEL De La Fuente 01/06/2021 Z95.810 Presence of automatic (implantab le) cardiac defibrillator AZAEL De La Fuente 12/23/2020 I25.10 Atherosclerotic heart disease of [place] coronary artery with AZAEL De La Fuente 12/23/2020 I47.2 Ventricular tachycardia AZAEL Lin 12/23/2020 Z95.810 Presence of automatic (implantab le) cardiac defibrillator AZAEL De La Fuente 12/23/2020 F17.210 Nicotine dependence, cigarettes, uncomplicated AZAEL De La Fuente Plan of Treatment Future Appointment(s):* 04/22/2021 3:00 pm - AZAEL De La Fuente at Main Office * 04/07/2021 7:00 am - [facility] at Main Office * 01/09/2022 9:30 am - AZAEL De La Fuente at Main Office 02/25/2021 - AZAEL De La Fuente* I47.2 Ventricular tachycardia* New Labs:* Free T4, Scheduled: 04/18/21 * CMP, Scheduled: 04/18/21 * Magnesium Level, Scheduled: 04/18/21 * Thyroid Stimulating Hormone, Scheduled: 04/18/21 * Recommendations:* Continue amiodarone, slight change in medication dose from what was directed at [facility] -Currently on 400 mg (2) 200 mg tablets - twice daily, until 03/08/21 (total daily dose of 800 mg) - starting 03/09/2021: Take (1) 200 mg tablet 3 times a day (total daily dose of 600 mg) -Starting 04/09/2021: Take (1) 200 mg tablet 2 times a day (total daily dose of 400 mg) - Will plan to recheck patient in late April, if he is doing fine we will consider decreasing dosage 200 mg daily starting 05/10/2021 Will continue to follow his ICD reports Encouraged patient to please seek medical attention/report to the emergency department with the onset of any concerning symptoms If medical therapy does not prove to prevent his episodes of VT, will need to consider ablation Plan for chest x-ray, TSH, and LFTs at his next appointment * Z95.810 Presence of automatic (implantable) cardiac defibrillator* Recommendations:* Continue 91 day home/12 month office checks * I25.10 Atherosclerotic heart disease of [place] coronary artery with* Recommendations:* Continue atorvastatin, bisoprolol, aspirin, and clopidogrel at the current dosages Patient has a new prescription of nitroglycerin to use if symptoms arise Advised patient to contact our office with any chest pain, shortness of breath, new or concerning symptoms * I25.5 Ischemic cardiomyopathy* Recommendations:* Continue Bisoprolol at the current dosage Please alert the office with a weight gain > 3 lbs or the onset of shortness of breath or lower extremity edema * I11.0 Hypertensive heart disease with heart failure* Recommendations:* Continue bisoprolol and furosemide at the current dosages Advised patient to monitor blood pressures at home and to alert our office with readings >140/>90 * R94.31 Abnormal electrocardiogram [ECG] [EKG]* Recommendations:* No further evaluation is needed at this time. * Z71.3 Dietary counseling and surveillance* Recommendations:* Recommended for patient to follow a more whole food diet. Advised patient to avoid overly processed foods and packaged foods. Advised patient to avoid sodas, juices and other liquid calories. Recommended at least 30 minutes of exercise 3 days a week. * All * Follow up:* Needs follow up late April Functional Status Functional Condition Comment Date Status Independent with all ADL's Activ e Mental Status Description No Information Available Referrals Refer to Reason for Referral Status Appt Date Yaron Malloy MD [facility] AUTH EMR-EXPIRES 10/28/20. [place] Created [address] [facility] [address] [phone]
--- OUTSIDE RECORDS SUMMARY | 2021-03-04 07:35 | CCD | Continuity of Care Document ---
Author Organization Unknown Address Unknown Phone Unavailable Care Team Providers Care Access Assoc Name Role Phone Link Becker MD AUTM [phone] Lee Ann Boswell AUTM [phone] Leo Hylton MD AUTM [phone] Problems Active Problems Provider Date Precordial pain Abiodun Monte MD Onset: 06/07/2016 Cardiomegaly Abiodun Monte MD Onset: 06/07/2016 Electrocardiogram abnormal Abiodun Monte MD Onset: 2016 Old myocardial infarction Abiodun Monte MD Onset: 017 Chronic obstructive lung disease Abiodun Monte MD Onset: 06/07/2016 Tobacco user Abiodun Monte MD Onset: 06/07/2016 Atherosclerotic heart disease of [place] coronary arter y without angina pectoris Abiodun [...] Test Result H/L Range Note CMP 02/24/2021 [facility] - not interfaced (315)- - Albumin Serum/Plasma 4.4 Alt - SGPT 34 Calcium Ser/Plasma Mass/Vol 10.0 Carbon Dioxide Ser/Plasm 30 Chloride Serum/Plasma 99 Alkaline Phosphatase 71 Potassium 4.4 Protein Total 8.0 Sodium 138 Ast - Sgot 22 BUN - Urea Nitrogen 15 Glucose 144 High 70-100 Creatinine For GFR 1.21 Laboratory test finding 02/24/2021 [facility] - not interf aced (315)- - Magnesium Level 2.1 1.8-2.4 Lipase 109 CBC without Differential 02/24/2021 [facility] - not inter faced (315)- - White Blood Count 12.2 High 4.0-10.0 Red Blood Count 5.26 4.30-6.10 Platelets 215 150-450 Hemoglobin 16.8 Hematocrit 50.3 CPK & CPK MB 02/24/2021 [facility] - not interfaced (315)- - CPK 243 CPK-MB 2.8 Laboratory test finding 02/24/2021 [facility] - not interf aced (315)- - Troponin <0.02 Laboratory test finding 02/21/2021 [facility] NT Probnp QN Ser/Plas 566 Troponin 0.05 Magnesium Level 2.0 Laboratory test finding 01/28/2021 [facility] [phone] NT-Pro BNP 762 pg/mL High <125 CMP 01/28/2021 [facility] nter [phone] Glucose, Fasting 141 mg/dL High 70-100 Blood [...] Ratio 1.1 Normal Laboratory test finding 01/28/2021 [facility] [phone] Magnesium Level 2.1 mg/dL Normal 1.8-2.4 Laboratory test finding 12/27/2020 [facility] [phone] NT-Pro BNP 1141 pg/mL High <125 CMP 12/27/2020 [facility]ter [phone] Glucose, Fasting 168 mg/dL High 70-100 Blood [...] Ratio 1.0 Normal Laboratory test finding 12/27/2020 [facility] [phone] Magnesium Level 1.9 mg/dL Normal 1.8-2.4 Liver Profile 12/13/2020 [facility] [phone] Ast/Sgot 5044 U/L High 7-37 Alt/SGPT 5023 U/L High 12-78 Alkaline Phosphatase 49 U/L Normal 45-117 Bilirubin,Total 0.8 mg/dL Normal 0.2-1.0 Bilirubin,Direct 0.4 mg/dL High 0.0-0.2 Total Protein 6.7 GM/DL Normal 6.4-8.2 Albumin 3.4 GM/DL Normal 3.2-5.2 Albumin/Globulin Ratio 1.0 Normal Basic Metabolic Profile 12/13/2020 [facility] [phone] Glucose, Fasting 150 mg/dL High 70-100 Blood [...] mg/dL Normal 8.5-10.1 Laboratory test finding 12/13/2020 [facility] [phone] Magnesium Level 1.9 mg/dL Normal 1.8-2.4 NT-Pro BNP 32237 pg/mL High <125 Lipase 204 U/L Normal 73-393 Thyroid Stimulating Hormone 2.450 uIU/ML Normal 0.358-3.740 Prothrombin Time/Inr 12/13/2020 [facility] [phone] Prothrombin Time 22.4 seconds High 12.7-14.5 Inr 1.92 Normal 4 1 Units are mL/min/1.73 m2 Chronic Kidney Disease Staging per NKF: Stage I & II GFR >=60 Normal to Mildly Decreased Stage III GFR 30-59 Moderately Decreased Stage IV GFR 15-29 Severely Decreased Stage V GFR <15 Very Little GFR Left ESRD GFR <15 on AUTOPSY ASSISTANT 2 Units are mL/min/1.73 m2 Chronic Kidney Disease Staging per NKF: Stage I & II GFR >=60 Normal to Mildly Decreased Stage III GFR 30-59 Moderately Decreased Stage IV GFR 15-29 Severely Decreased Stage V GFR <15 Very Little GFR Left ESRD GFR <15 on AUTOPSY ASSISTANT 3 Units are mL/min/1.73 m2 Chronic Kidney Disease Staging per NKF: Stage I & II GFR >=60 Normal to Mildly Decreased Stage III GFR 30-59 Moderately Decreased Stage IV GFR 15-29 Severely Decreased Stage V GFR <15 Very Little GFR Left ESRD GFR <15 on AUTOPSY ASSISTANT 4 THERAPUTIC HUMAN INR VALUES INDICATIONS NORMAL RANGES PROPHYLAXIS/TREATMENT OF: VENOUS THROMBOSIS 2.0-3.0 PULMONARY EMBOLISM 2.0-3.0 PREVENTION OF SYSTEMIC EMBOLISM FROM: TISSUE HEART VALVES 2.0-3.0 ACUTE MYOCARDIAL INFARCTION 2.0-3.0 VALVULAR HEART DISEASE 2.0-3.0 ATRIAL FIBRILLATION 2.0-3.0 MECHANICAL VALVES(HIGH RISK) 2.5-3.5 RECURRENT MYOCARDIAL INFARCTION 2.5-3.5 Procedures Date Code Description Status 01/06/2021 58907 Icd Interrogation Any Leads Comp leted 12/23/2020 25856 Office/Outpatient Established Mo d MDM 30-39 Min Completed 12/23/2020 61065 ECG 12-Lead Completed Medical Devices Description No Information Available Encounters Type Date Location Provider Dx Diagnosis Office Visit 12/23/2020 11:15a Main Office AZAEL De La Fuente I25 .10 Athscl heart disease of [place] coronary artery w/o ang pctrs I47.2 Ventricular tachycardia Z95.810 Presence of automatic (impla ntable) cardiac defibrillator F17.210 Nicotine dependence, cigaret marilee, uncomplicated Assessments Date Code Description Provider 01/06/2021 Z95.810 Presence of automatic (implantab le) cardiac defibrillator AZAEL De La Fuente 12/23/2020 I25.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 [place] Created [address] [facility] [address] [phone]
--- OUTSIDE RECORDS SUMMARY | 2021-03-04 07:35 | CCD | Continuity of Care Document ---
Author Organization Unknown Address Unknown Phone Unavailable Care Team Providers Care Event Staff Member Name Role Phone Link Becker MD AUTM [phone] Lee Ann Boswell AUTM [phone] Leo Hylton MD AUTM [phone] Problems Active Problems Provider Date Precordial pain Abiodun Monte MD Onset: 06/07/2016 Cardiomegaly Abiodun Monte MD Onset: 06/07/2016 Electrocardiogram abnormal Abiodun Monte MD Onset: 2016 Old myocardial infarction Abiodun Monte MD Onset: 017 Chronic obstructive lung disease Abiodun Monte MD Onset: 06/07/2016 Tobacco user Abiodun Monte MD Onset: 06/07/2016 Atherosclerotic heart disease of [place] coronary arter y without angina pectoris Abiodun [...] Test Result H/L Range Note CMP 02/24/2021 [facility] - not interfaced (315)- - Albumin Serum/Plasma 4.4 Alt - SGPT 34 Calcium Ser/Plasma Mass/Vol 10.0 Carbon Dioxide Ser/Plasm 30 Chloride Serum/Plasma 99 Alkaline Phosphatase 71 Potassium 4.4 Protein Total 8.0 Sodium 138 Ast - Sgot 22 BUN - Urea Nitrogen 15 Glucose 144 High 70-100 Creatinine For GFR 1.21 Laboratory test finding 02/24/2021 [facility] - not interf aced (315)- - Magnesium Level 2.1 1.8-2.4 Lipase 109 CBC without Differential 02/24/2021 [facility] - not inter faced (315)- - White Blood Count 12.2 High 4.0-10.0 Red Blood Count 5.26 4.30-6.10 Platelets 215 150-450 Hemoglobin 16.8 Hematocrit 50.3 CPK & CPK MB 02/24/2021 [facility] - not interfaced (315)- - CPK 243 CPK-MB 2.8 Laboratory test finding 02/24/2021 [facility] - not interf aced (315)- - Troponin <0.02 Laboratory test finding 02/21/2021 [facility] Probnp QN Ser/Plas 566 Troponin 0.05 Magnesium Level 2.0 Laboratory test finding 01/28/2021 [facility] [phone] NT-Pro BNP 762 pg/mL High <125 CMP 01/28/2021 [facility] nter [phone] Glucose, Fasting 141 mg/dL High 70-100 Blood [...] Ratio 1.1 Normal Laboratory test finding 01/28/2021 [facility] [phone] Magnesium Level 2.1 mg/dL Normal 1.8-2.4 Laboratory test finding 12/27/2020 [facility] [phone] NT-Pro BNP 1141 pg/mL High <125 CMP 12/27/2020 [facility] [phone] Glucose, Fasting 168 mg/dL High 70-100 Blood [...] Ratio 1.0 Normal Laboratory test finding 12/27/2020 [facility] [phone] Magnesium Level 1.9 mg/dL Normal 1.8-2.4 Liver Profile 12/13/2020 [facility] n[facility] [phone] Ast/Sgot 5044 U/L High 7-37 Alt/SGPT 5023 U/L High 12-78 Alkaline Phosphatase 49 U/L Normal 45-117 Bilirubin,Total 0.8 mg/dL Normal 0.2-1.0 Bilirubin,Direct 0.4 mg/dL High 0.0-0.2 Total Protein 6.7 GM/DL Normal 6.4-8.2 Albumin 3.4 GM/DL Normal 3.2-5.2 Albumin/Globulin Ratio 1.0 Normal Basic Metabolic Profile 12/13/2020 [facility] [phone] Glucose, Fasting 150 mg/dL High 70-100 Blood [...] mg/dL Normal 8.5-10.1 Laboratory test finding 12/13/2020 [facility] [phone] Magnesium Level 1.9 mg/dL Normal 1.8-2.4 NT-Pro BNP 46668 pg/mL High <125 Lipase 204 U/L Normal 73-393 Thyroid Stimulating Hormone 2.450 uIU/ML Normal 0.358-3.740 Prothrombin Time/Inr 12/13/2020 [facility] [phone] Prothrombin Time 22.4 seconds High 12.7-14.5 Inr 1.92 Normal 4 1 Units are mL/min/1.73 m2 Chronic Kidney Disease Staging per NKF: Stage I & II GFR >=60 Normal to Mildly Decreased Stage III GFR 30-59 Moderately Decreased Stage IV GFR 15-29 Severely Decreased Stage V GFR <15 Very Little GFR Left ESRD GFR <15 on ELECTRICAL TRANSMISSION ENGINEER 2 Units are mL/min/1.73 m2 Chronic Kidney Disease Staging per NKF: Stage I & II GFR >=60 Normal to Mildly Decreased Stage III GFR 30-59 Moderately Decreased Stage IV GFR 15-29 Severely Decreased Stage V GFR <15 Very Little GFR Left ESRD GFR <15 on ELECTRICAL TRANSMISSION ENGINEER 3 Units are mL/min/1.73 m2 Chronic Kidney Disease Staging per NKF: Stage I & II GFR >=60 Normal to Mildly Decreased Stage III GFR 30-59 Moderately Decreased Stage IV GFR 15-29 Severely Decreased Stage V GFR <15 Very Little GFR Left ESRD GFR <15 on ELECTRICAL TRANSMISSION ENGINEER 4 THERAPUTIC HUMAN INR VALUES INDICATIONS NORMAL RANGES PROPHYLAXIS/TREATMENT OF: VENOUS THROMBOSIS 2.0-3.0 PULMONARY EMBOLISM 2.0-3.0 PREVENTION OF SYSTEMIC EMBOLISM FROM: TISSUE HEART VALVES 2.0-3.0 ACUTE MYOCARDIAL INFARCTION 2.0-3.0 VALVULAR HEART DISEASE 2.0-3.0 ATRIAL FIBRILLATION 2.0-3.0 MECHANICAL VALVES(HIGH RISK) 2.5-3.5 RECURRENT MYOCARDIAL INFARCTION 2.5-3.5 Procedures Date Code Description Status 01/06/2021 46131 Icd Interrogation Any Leads Comp leted 12/23/2020 75738 Office/Outpatient Established Mo d MDM 30-39 Min Completed 12/23/2020 01041 ECG 12-Lead Completed Medical Devices Description No Information Available Encounters Type Date Location Provider Dx Diagnosis Office Visit 12/23/2020 11:15a Main Office AZAEL De La Fuente I25 .10 Athscl heart disease of [place] coronary artery w/o ang pctrs I47.2 Ventricular tachycardia Z95.810 Presence of automatic (impla ntable) cardiac defibrillator F17.210 Nicotine dependence, cigaret marilee, uncomplicated Assessments Date Code Description Provider 01/06/2021 Z95.810 Presence of automatic (implantab le) cardiac defibrillator AZAEL De La Fuente 12/23/2020 I25.10 Atherosclerotic heart disease of [place] coronary artery with AZAEL De La Fuente [...] La Fuente* I25.10 Atherosclerotic heart disease of [place] coronary artery with* Recommendations:* Continue atorvastatin, bisoprolol, [...] Referral Status Appt Date Yaron Malloy MD [facility] AUTH EMR-EXPIRES 10/28/20. [place] Created [address] [facility] [address] [phone]
--- OUTSIDE RECORDS SUMMARY | 2021-03-04 07:35 | CCD | Continuity of Care Document ---
Author Author Dilan VASQUEZ Organization Unknown Address [address] [place] [address], [facility] [place] [address] Phone [phone] Care Team Providers Care Apartment House Manager Name Role Phone Link Becker MD AUTM [phone] Lee Ann Boswell AUTM [phone] Leo Hylton MD AUTM [phone] Problems Active Problems Provider Date Precordial pain Abiodun Monte MD Onset: 06/07/2016 Cardiomegaly Abiodun Monte MD Onset: 06/07/2016 Electrocardiogram abnormal Abiodun Monte MD Onset: 2016 Old myocardial infarction Abiodun Monte MD Onset: 017 Chronic obstructive lung disease Abiodun Monte MD Onset: 06/07/2016 Tobacco user Abiodun Monte MD Onset: 06/07/2016 Atherosclerotic heart disease of [place] coronary arter y without angina pectoris Abiodun [...] after ER/hospital visit. LM Smoking Status Reviewed: 12/23/20 Light tobacco smoker (10 or fewer cigarettes/day) [...] 199.00 lb Home Weight 200lb home weight 02/25/2021 9:10am Weight 199.00 lb Results Test Acquired Date Facility Test Result H/L Range Note CMP 02/24/2021 [facility] - not interfaced (315)- - Albumin Serum/Plasma 4.4 Alt - SGPT 34 Calcium Ser/Plasma Mass/Vol 10.0 Carbon Dioxide Ser/Plasm 30 Chloride Serum/Plasma 99 Alkaline Phosphatase 71 Potassium 4.4 Protein Total 8.0 Sodium 138 Ast - Sgot 22 BUN - Urea Nitrogen 15 Glucose 144 High 70-100 Creatinine For GFR 1.21 Laboratory test finding 02/24/2021 [facility] - not interf aced (315)- - Magnesium Level 2.1 1.8-2.4 Lipase 109 CBC without Differential 02/24/2021 [facility] - not inter faced (315)- - White Blood Count 12.2 High 4.0-10.0 Red Blood Count 5.26 4.30-6.10 Platelets 215 150-450 Hemoglobin 16.8 Hematocrit 50.3 CPK & CPK MB 02/24/2021 [facility] - not interfaced (315)- - CPK 243 CPK-MB 2.8 Laboratory test finding 02/24/2021 [facility] - not interf aced (315)- - Troponin <0.02 Laboratory test finding 02/21/2021 [facility] Probnp QN Ser/Plas 566 Troponin 0.05 Magnesium Level 2.0 Laboratory test finding 01/28/2021 [facility] [phone] NT-Pro BNP 762 pg/mL High <125 CMP 01/28/2021 [facility] nter [phone] Glucose, Fasting 141 mg/dL High 70-100 Blood [...] Ratio 1.1 Normal Laboratory test finding 01/28/2021 [facility] [phone] Magnesium Level 2.1 mg/dL Normal 1.8-2.4 Laboratory test finding 12/27/2020 [facility] [phone] NT-Pro BNP 1141 pg/mL High <125 CMP 12/27/2020 [facility] nter [phone] Glucose, Fasting 168 mg/dL High 70-100 Blood [...] Ratio 1.0 Normal Laboratory test finding 12/27/2020 [facility] [phone] Magnesium Level 1.9 mg/dL Normal 1.8-2.4 Liver Profile 12/13/2020 [facility] nter [phone] Ast/Sgot 5044 U/L High 7-37 Alt/SGPT 5023 U/L High 12-78 Alkaline Phosphatase 49 U/L Normal 45-117 Bilirubin,Total 0.8 mg/dL Normal 0.2-1.0 Bilirubin,Direct 0.4 mg/dL High 0.0-0.2 Total Protein 6.7 GM/DL Normal 6.4-8.2 Albumin 3.4 GM/DL Normal 3.2-5.2 Albumin/Globulin Ratio 1.0 Normal Basic Metabolic Profile 12/13/2020 [facility] [phone] Glucose, Fasting 150 mg/dL High 70-100 Blood [...] mg/dL Normal 8.5-10.1 Laboratory test finding 12/13/2020 [facility] [phone] Magnesium Level 1.9 mg/dL Normal 1.8-2.4 NT-Pro BNP 08757 pg/mL High <125 Lipase 204 U/L Normal 73-393 Thyroid Stimulating Hormone 2.450 uIU/ML Normal 0.358-3.740 Prothrombin Time/Inr 12/13/2020 [facility] [phone] Prothrombin Time 22.4 seconds High 12.7-14.5 Inr 1.92 Normal 4 1 Units are mL/min/1.73 m2 Chronic Kidney Disease Staging per NKF: Stage I & II GFR >=60 Normal to Mildly Decreased Stage III GFR 30-59 Moderately Decreased Stage IV GFR 15-29 Severely Decreased Stage V GFR <15 Very Little GFR Left ESRD GFR <15 on GORE CUTTER 2 Units are mL/min/1.73 m2 Chronic Kidney Disease Staging per NKF: Stage I & II GFR >=60 Normal to Mildly Decreased Stage III GFR 30-59 Moderately Decreased Stage IV GFR 15-29 Severely Decreased Stage V GFR <15 Very Little GFR Left ESRD GFR <15 on GORE CUTTER 3 Units are mL/min/1.73 m2 Chronic Kidney Disease Staging per NKF: Stage I & II GFR >=60 Normal to Mildly Decreased Stage III GFR 30-59 Moderately Decreased Stage IV GFR 15-29 Severely Decreased Stage V GFR <15 Very Little GFR Left ESRD GFR <15 on GORE CUTTER 4 THERAPUTIC HUMAN INR VALUES INDICATIONS NORMAL RANGES PROPHYLAXIS/TREATMENT OF: VENOUS THROMBOSIS 2.0-3.0 PULMONARY EMBOLISM 2.0-3.0 PREVENTION OF SYSTEMIC EMBOLISM FROM: TISSUE HEART VALVES 2.0-3.0 ACUTE MYOCARDIAL INFARCTION 2.0-3.0 VALVULAR HEART DISEASE 2.0-3.0 ATRIAL FIBRILLATION 2.0-3.0 MECHANICAL VALVES(HIGH RISK) 2.5-3.5 RECURRENT MYOCARDIAL INFARCTION 2.5-3.5 Procedures Date Code Description Status 02/25/2021 17172 Office/Outpatient Established Mo d MDM 30-39 Min Completed 02/25/2021 37400 ECG 12-Lead Completed 01/06/2021 07836 Icd Interrogation Any Leads Comp leted 12/23/2020 62949 Office/Outpatient Established Mo d MDM 30-39 Min Completed 12/23/2020 13754 ECG 12-Lead Completed Medical Devices Description No [...] Fuente I25 .10 Athscl heart disease of [place] coronary artery w/o ang pctrs I47.2 Ventricular tachycardia Z95.810 Presence of automatic (impla ntable) cardiac defibrillator F17.210 Nicotine dependence, cigaret marilee, uncomplicated Assessments Date Code Description Provider 02/25/2021 I47.2 Ventricular tachycardia AZAEL Lin 02/25/2021 Z95.810 Presence of automatic (implantab le) cardiac defibrillator AZAEL De La Fuente 02/25/2021 I25.10 Atherosclerotic heart disease of [place] coronary artery with AZAEL De La Fuente [...] Fuente 12/23/2020 I25.10 Atherosclerotic heart disease of [place] coronary artery with AZAEL De La Fuente [...] medication dose from what was directed at [facility] -Currently on 400 mg (2) 200 mg [...] checks * I25.10 Atherosclerotic heart disease of [place] coronary artery with* Recommendations:* Continue atorvastatin, bisoprolol, [...] Referral Status Appt Date Yaron Malloy MD [facility] AUTH [employer] 10/28/20. [place] [id number] [facility], [facility] [place] [phone]
--- OUTSIDE RECORDS SUMMARY | 2021-03-04 07:38 | CCD ---
Author Author [facility] Organization [facility] Address Unknown Phone Unavailable Care Team Providers Care Library Clerk [employer] Name Role Phone Karson HAWLEY MD Unavailable [...] Unavailable ReggieeedLeo MD Unavailable Unavaila ble Leo Pruitt MD Unavailable Unavaila Leo Arboleda MD Unavailable Unavaila Leo Arboleda MD Unavailable Unavaila ble Leo Pruitt MD Unavailable Unavaila ble Leo Pruitt MD Unavailable Unavaila Leo Arboleda MD Unavailable Unavaila ble Leo Pruitt MD Unavailable Unavaila ble MigeedLeo MD Unavailable [...] Unavailable Unavailable Иван FAITH MD Unavailable Unavailable вИан FAITH MD Unavailable Unavailable Иван FAITH MD Unavailable Unavailable Иван FAITH MD Unavailable Unavailable Иван FAITH MD Unavailable Unavailable Иван FAITH MD Unavailable Unavailable Иван FAITH MD Unavailable Unavailable Иван FAITH MD Unavailable Unavailable Иван FAITH MD Unavailable Unavailable Иван FAITH MD Unavailable Unavailable Иван FAITH MD Unavailable Unavailable LILIANA DELGADO Unavailable Unavailable MCKENNA, B QUINN MD Unavailable [...] is protected by Article 27-F of the [facility] Public Health law. If you continue you may have access to information: Regarding HIV / AIDS; Provided by facilities licensed or operated by the [facility] Office of Mental Health; or Provided by the [facility] Office for People With Developmental Disabilities. If such information is present, then the following [facility] mandated warning applies: This information [...] law may result in a fine or usp sentence or both. A general authorization for the release of medical or other information is NOT sufficient authorization for further disc losure. Family History Family Member Name Family Member Gender Family Member Status Date o f Status Description Data Source(s) Unknown Male Problem [facility] ([facility]) Unknown Male Problem [facility] ([facility]) Unknown Female Problem [facility] ([facility] Unknown Female Problem [facility] ([facility] Unknown Female Problem [facility] ([facility] Encounters Encounter Providers Location Date Indications Data Source(s ) Outpatient Attender: HAIR ADDISON Main Office 02/25/2021 0 8:15:00 AM EST [facility] ([facility]) Inpatient Attender: LEONID HAWLEY MD Attender: GRISELDA FAITH MDAttender: QUINN ANDRES MDAdmitter: QUINN ANDRES MDConsultant: Mushtaq Pruitt MD [id number] 02/21/2021 05:48:00 AM EST - 02/22/2021 12:37:00 PM EST [facility] Patient discharged. [place] [address] [facility] [place] [address] 01/19/2021 12:00:00 AM EDT eCW1 ([facility]) Unknown [address] [facility] [place] [address] 12/31/2020 12:00:00 AM EDT eCW1 ([facility]) Outpatient [address] [facility] [place] [address] 12/24/2020 12:00:00 AM EDT eCW1 ([facility]) Outpatient Attender: HAIR ADDISON Main Office 12/23/2020 1 1:15:00 AM EDT [facility] ([facility]) Inpatient Attender: Jaswinder Sabillon ramirez: LILIANA DEANAttender: Crystal Neal MDAdmitter: Crystal Neal MDConsultant: Mushtaq Pruitt MD [id number] 12/13/2020 12:38:00 PM EDT - 12/17/2020 10:44:00 PM EDT [facility] Patient discharged. [place] [address] [facility] [address] 10/15/2020 12:00:00 AM EDT [facility]CW1 ([facility]) [place] [address] [facility] [address] 08/04/2020 12:00:00 AM EDT eCW1 ([facility]) [place] [address] [facility] [address] 07/30/2020 12:00:00 AM EDT eCW1 ([facility]) [place] [address] [facility] [address] 07/30/2020 12:00:00 AM EDT eCW1 ([facility]) Outpatient Attender: HAIR ADDISON Main Office 07/29/2020 0 3:30:00 PM EDT [facility] ([facility]) [place] [address] [facility] [address] 07/28/2020 12:00:00 AM EDT eCW1 ([facility]) [place] [address] [facility] [address] 07/28/2020 12:00:00 AM EDT eCW1 ([facility]) [place] [address] [facility] [place] [address] 07/23/2020 12:00:00 AM EDT eCW1 ([facility]) Outpatient Attender: HAIR ADDISON Main Office 04/27/2020 0 8:45:00 AM EST [facility] ([facility]) [place] [address] [facility] [address] 02/25/2020 12:00:00 AM EST eCW1 ([facility]) [place] [address] [facility] [place] [address] 02/12/2020 12:00:00 AM EST eCW1 ([facility]) [place] [address] [facility] [place] [address] 01/19/2020 12:00:00 AM EDT eCW1 ([facility]) [place] [address] [facility] [place] [address] 01/15/2020 12:00:00 AM EDT eCW1 ([facility]) Immunizations Vaccine Date Status Description Data Source(s) influenza, recombinant, quadrIvalent,injectable, prese rvative free 01/19/2021 07:56:00 AM EDT completed eCW1 ([facility]) COVID-19 VACC,MRNA(MODERNA)/PF 08/23/2020 12:00:00 AM EDT completed [facility] COVID-19 VACCINE Moderna 08/23/2020 12:00:00 AM EDT completed [facility] Vaccine Series Complete: YESThis Data wa s Submitted to [facility] Via [facility]. COVID-19 VACCINE Moderna 07/25/2020 12:00:00 AM EDT completed [facility] Vaccine Series Complete: NOThis Data was Submitted to [facility] Via [facility]. COVID-19 VACC,MRNA(MODERNA)/PF 07/25/2020 12:00:00 AM EDT completed [facility] influenza, recombinant, quadrIvalent,injectable, prese rvative free 01/15/2020 07:34:00 AM EDT completed eCW1 ([facility]) influenza, recombinant, quadrIvalent,injectable, prese rvative free 01/15/2020 07:34:00 AM EDT completed eCW1 ([facility]) influenza, recombinant, quadrIvalent,injectable, prese rvative free 01/15/2020 07:34:00 AM EDT completed eCW1 ([facility]) influenza, recombinant, quadrIvalent,injectable, prese rvative free 01/15/2020 07:34:00 AM EDT completed eCW1 ([facility]) influenza, recombinant, quadrIvalent,injectable, prese rvative free 01/15/2020 07:34:00 AM EDT completed eCW1 ([facility]) influenza, recombinant, quadrIvalent,injectable, prese rvative free 01/15/2020 07:34:00 AM EDT completed eCW1 ([facility]) influenza, recombinant, quadrIvalent,injectable, prese rvative free 01/15/2020 07:34:00 AM EDT completed eCW1 ([facility]) influenza, recombinant, quadrIvalent,injectable, prese rvative free 01/15/2020 07:34:00 AM EDT completed eCW1 ([facility]) influenza, recombinant, quadrIvalent,injectable, prese rvative free 01/15/2020 07:34:00 AM EDT completed eCW1 ([facility]) influenza, recombinant, quadrIvalent,injectable, prese rvative free 01/15/2020 07:34:00 AM EDT completed eCW1 ([facility]) influenza, recombinant, quadrIvalent,injectable, prese rvative free 01/15/2020 07:34:00 AM EDT completed eCW1 ([facility]) influenza, recombinant, quadrIvalent,injectable, prese rvative free 01/15/2020 07:34:00 AM EDT completed eCW1 ([facility]) influenza, recombinant, quadrIvalent,injectable, prese rvative free 01/15/2020 07:34:00 AM EDT completed eCW1 ([facility]) influenza, recombinant, quadrIvalent,injectable, prese rvative free 01/15/2020 07:34:00 AM EDT completed eCW1 ([facility]) This CVX code allows reporting of a vacc ination when formulation is unknown (for example, when recording a Influenza vaccination when noted on a vaccination card) 01/08/2020 12:00:00 AM EDT completed <td ID="immun [id number]">Influenza (Unspecified)</td><td>01/08/2020</td><td></td> [facility] Medications Medication Brand Name Start Date Product Form Dose Route Admi nistrative Instructions Pharmacy Instructions Status Indications Reaction Description Data Source(s) 24 HR metoprolol succinate 50 MG Extended Release Oral Tablet Metoprolol Succinate ER 02/24/2021 12:00:00 AM EST ORAL active [facility] ([facility]) Amiodarone hydrochloride 200 MG Oral Tablet Amiodarone HCL 02/24/2021 12:00:00 AM EST ORAL active [facility] ([facility] Amiodarone hydrochloride 200 MG Oral Tablet amiodarone (PACERONE) tablet 400 mg amiodarone (PACERONE) tablet 400 mg 02/22/2021 01:00:00 PM EST 400 mg Oral completed 400 mg, Oral, Once, On Sun04/24/20 at 1300, For 1 dose [facility] Medication administered onsite Amiodarone hydrochloride 200 MG Oral Tablet amiodarone (PACERONE) 200 MG tablet amiodarone (PACERONE) 200 MG tablet 02/22/2021 12:00:00 AM EST 400 mg Oral active Take 2 tablets ( 400 mg total) by mouth 2 (two) times a day for 14 days [facility] 50 mg 02/22/2021 12:00:00 AM EST tablet extended release 24 hr 30 TAKE ONE TABLET BY MOUTH AT NIGHTLY TAKE ONE TABLET BY MOUTH AT NIGHTLY SOLD: 02/22/2021 [facility] Amiodarone hydrochloride 200 MG Oral Tablet AMIODARONE HCL 02/22/2021 12:00:00 AM EST tablet 56 TAKE TWO TABLETS BY MOUTH TW ICE A DAY FOR 14 DAYS TAKE TWO TABLETS BY MOUTH TWICE A DAY FOR 14 DAYS SOLD: 02/22/2021 [facility] 24 HR metoprolol succinate 50 MG Extende d Release Oral Tablet metoprolol succinate (TOPROL-XL) 50 MG 24 hr tablet metoprolol succinate (TOPROL-XL) 50 MG 24 hr tablet 02/22/2021 12:00:00 AM EST 50 mg Oral activ e Take 1 tablet (50 mg total) by mouth nightly [facility] 24 HR metoprolol succinate 50 MG Extende d Release Oral Tablet metoprolol succinate (TOPROL-XL) 24 hr tablet 50 mg metoprolol succinate (TOPROL-XL) 24 hr tablet 50 mg 02/21/2021 09:00:00 PM EST 50 mg Oral activ e 50 mg, Oral, Nightly, First dose on Sun02/21/21 at 2100 [facility] Medication administered onsite montelukast 10 MG Oral Tablet montelukast (SINGULAIR) tablet 10 mg montelukast (SINGULAIR) tablet 10 mg 02/21/2021 09:00:00 PM EST 10 mg Oral active 10 mg, Oral, Nightly, First dose on Sun02/21/21 at 2100 [facility] Medication administered onsite atorvastatin 80 MG Oral Tablet atorvastatin (LIPITOR) tablet 80 mg atorvastatin (LIPITOR) tablet 80 mg 02/21/2021 09:00:00 PM EST 80 mg Oral active 80 mg, Oral, Nightly, First dose on Sun02/21/21 at 2100 [facility] Medication administered onsite perflutren lipid microsphere (DEFINSmart [place]) 8.476 mg in 10 mL NS IV drug or medication 02/21/2021 12:26:20 PM EST mL Intravenous co mpleted 2-10 mL, Intravenous, Once as needed, to be used when clinically necessary, Starting on Sun02/21/21 at 1226, For 1 dose
To be given with prototype technician at bedside for exam 1. Activate in VIALMIX agitator for 45 seconds 2. Withdraw 1.3 ml of activated perflutren suspension and dilute in 8.7 ml of 0.9% NS (Total volume = 10 ml) 3. Inject 2 ml slowly over 30 seconds. Repeat in 2 ml aliquots as needed. DO NOT EXCEED 10 ML TOTAL DOSE!
[facility] Medication administered onsite clopidogrel 75 MG Oral Tablet clopidogrel (PLAVIX) tab let 75 mg clopidogrel (PLAVIX) tablet 75 mg 02/21/2021 09:00:00 AM EST 75 mg Oral active 75 mg, Oral, Daily, First dose on Sun02/21/21 at 0900 [facility] Medication administered onsite Aspirin 81 MG Delayed Release Oral Tablet aspirin EC t ablet 81 mg aspirin EC tablet 81 mg 02/21/2021 09:00:00 AM EST 81 mg Oral activ e 81 mg, Oral, Daily, First dose on Sun02/21/21 at 0900 [facility] Medication administered onsite heparin (porcine) injection 5,000 Units [id number] 02/22/20 09:00:00 AM EST 5000 U Subcutaneous active 5,000 Units , Subcutaneous, Every 12 hours (scheduled), First dose on Sun02/21/21 at 0900
If platelet count is less than 100,000 or hematocrit is less than 30, or if there is a 5 point decrease in hematocrit, do not give the dose and call physician/designee.
[facility] Medication administered onsite Insulin Lispro 100 [...] cover POC glucose at 08:00, 12:00, 17:00.
[facility] Medication administered onsite Albuterol 0.833 MG/ML / Ipratropium Brom franck 0.167 MG/ML Inhalant Solution ipratropium-albuterol (DUO-NEB) 0.5-2.5 mg/mL nebulizer solution 3 mL ipratropium-albuterol (DUO-NEB) 0.5-2.5 mg/mL nebulizer solution 3 mL 02/21/2021 07:24:50 AM EST 3 mL Inhalation active 3 mL, Inhalation, Every 6 hours PRN, wheezing, Starting on Sun02/21/21 at 0724 [facility] Medication administered onsite amiodarone HCl 900 mg in dextrose 5 % 500 mL infusion 02/21/2021 07:00:00 AM EST mg/min Intravenous aborted 0.5- 1 mg/min (16.6667-33.3333 mL/hr, rounded to 16.7-33.3 mL/hr), Intravenous, Continuous, Starting on Sun02/21/21 at 0700, Until Sun02/22/21 at 1124, at 16.7-33.3 mL/hr [facility] Medication administered onsite normal saline flush 0.9 % injection 3 mL [id number] 02/21/2021 07:00:00 AM EST 3 mL Intravenous active 3 mL , Intravenous, Every 8 hours (scheduled), First dose on Sun02/21/21 at 0700
flush per protocol, D/C Main IV fluid if appropriate
[facility] Medication administered onsite normal saline flush 0.9 % injection 3 mL [id number] 02/21/2021 07:00:00 AM EST 3 mL Intravenous active 3 mL , Intravenous, Every 8 hours (scheduled), First dose on Sun02/21/21 at 0700
Rapid push positive pressure flushing shall be performed with a 10 cc normal saline syringe to check the PATENCY of a PIV site prior to any infusion therapy initiation unless resistance is met.
[facility] Medication administered onsite Albuterol 0.83 MG/ML Inhalant Solution a lbuterol (PROVENTIL) nebulizer solution 2.5 mg albuterol (PROVENTIL) nebulizer solution 2.5 mg 2020 06:33:07 AM EST 2.5 mg active 2.5 mg, Nebulization, RT every 6 hours as needed, wheezing, Starting on Sun02/21/21 at 0633 [facility] Medication administered onsite ondansetron (ZOFRAN) injection 4 mg [id number] 02/21/2021 05:55:1 2 AM EST 4 mg Intravenous active 4 mg, In travenous, Every 6 hours PRN, nausea, vomiting, Starting on Sun02/21/21 at 0555 [facility] Medication administered onsite 81 mg 02/21/2021 12:00:00 AM EST tablet,delayed release (DR/EC) 30 TAKE ONE TABLET BY MOUTH EVERY DAY TAKE ONE TABLET BY MOUTH EVERY DAY SOLD: 02/26/2021 [facility] 80 mg 02/21/2021 12:00:00 AM EST tablet 30 TAKE ONE TABLET BY MOUTH EVERY DAY TAKE ONE TABLET BY MOUTH EVERY DAY SOLD: 02/26/2021 [facility] 15 mg 01/24/2021 12:00:00 AM EDT tablet 30 TAKE ONE TABLET BY MOUTH EVERY DAY TAKE ONE TABLET BY MOUTH EVERY DAY SOLD: 02/26/2021 [facility] 15 mg 01/24/2021 12:00:00 AM EDT tablet 30 TAKE ONE TABLET BY MOUTH EVERY DAY TAKE ONE TABLET BY MOUTH EVERY DAY SOLD: 01/27/2021 [facility] 75 mg 01/16/2021 12:00:00 AM EDT tablet 30 TAKE ONE TABLET BY MOUTH EVERY DAY TAKE ONE TABLET BY MOUTH EVERY DAY SOLD: 02/26/2021 [facility] 75 mg 01/16/2021 12:00:00 AM [...] TABLET BY MOUTH TWICE A DAY SOLD: 02/26/2021 [facility] 40 mg 01/16/2021 12:00:00 AM [...] ONE TABLET BY MOUTH EVERY DAY SOLD: 02/26/2021 [facility] montelukast 10 MG Oral [...] System Step 1 12/23/2020 12:00:00 AM EDT completed [facility] ([facility]) Furosemide 40 MG Oral Tablet Furosemide 12/22/2020 12:00:00 AM EDT ORAL active [facility] ([facility]) clopidogrel 75 MG Oral Tablet Clopidogrel Bisulfate 12/22/2020 1 2:00:00 AM EDT ORAL active [facility] ( [facility]) Metformin hydrochloride 500 MG Oral Tablet Metformin HCL 12/22/2020 12:00:00 AM EDT ORAL active [facility] ([facility]) 40 mg 12/18/2020 12:00:00 AM EDT tablet 60 TAKE ONE TABLET BY MOUTH TWICE A DAY TAKE ONE TABLET BY MOUTH TWICE A DAY SOLD: 12/18/2020 [facility] 75 mg 12/18/2020 12:00:00 AM EDT tablet 30 TAKE ONE TABLET BY MOUTH EVERY DAY TAKE ONE TABLET BY MOUTH EVERY DAY SOLD: 12/18/2020 [facility] lidocaine 1 % injection [id number] 12/17/2020 05:16:56 PM EDT active As needed, Starting on Sun at 1716, Intra-Procedure [facility] Medication administered onsite Cefazolin 1000 MG Injection ceFAZolin (ANCEF) injectio n ceFAZolin (ANCEF) injection 12/17/2020 05:05:00 PM EDT active As needed, Starting on Sun12/17/20 at 1705, Intra-Procedure [facility] Medication administered onsite Furosemide 40 MG Oral Tablet furosemide (LASIX) tablet 40 mg furosemide (LASIX) tablet 40 mg 12/17/2020 05:00:00 PM EDT 40 mg Oral activ e 40 mg, Oral, LOOPBID, First dose on Sun12/17/20 at 1700 [facility] Medication administered onsite clopidogrel 75 MG Oral Tablet clopidogrel (PLAVIX) 75 MG tablet clopidogrel (PLAVIX) 75 MG tablet 12/17/2020 12:00:00 AM EDT 75 mg Oral active Take 1 tablet (75 mg total) by mouth daily [facility] Furosemide 40 MG Oral Tablet furosemide (LASIX) 40 MG tablet furosemide (LASIX) 40 MG tablet 12/17/2020 12:00:00 AM EDT 40 mg Oral activ e Take 1 tablet (40 mg total) by mouth Twice Daily for Loop Diuretics [facility] iopamidol (ISOVUE-370) 76 % [id number] 12/15/2020 05:24:15 PM EDT active As needed, Starting on Sun12/15/20 at 1724, Intra-Proce [facility] Medication administered onsite 1 ML heparin sodium, porcine 1000 UNT/ML Injection hep quentin (porcine) injection heparin (porcine) injection 12/15/2020 05:19:28 PM EDT active As needed, Starting on Sun12/15/20 at 1719, Intra-Procedure [facility] Medication administered onsite 4 ML Verapamil hydrochloride 2.5 MG/ML Injection verap [place] (ISOPTIN) injection verapamil (ISOPTIN) injection 12/15/2020 05:19:13 PM EDT active As needed, Starting on Sun12/15/20 at 1719, Intra-Procedure [facility] Medication administered onsite lidocaine 1 % injection [id number] 12/15/2020 05:17:03 PM EDT active As needed, Starting on Sun 1 at 1717, Intra-Procedure [facility] Medication administered onsite 2 ML Midazolam 1 MG/ML Injection midazolam (VERSED) in jection midazolam (VERSED) injection 12/15/2020 05:16:45 PM EDT active As needed, Starting on Sun12/15/20 at 1716, Intra-Procedure [facility] Medication administered onsite fentaNYL Citrate (PF) (SUBLIMAZE) injection [id number] 12/15/2020 05:16:30 PM EDT active As neede d, Starting on Sun12/15/20 at 1716, Intra-Procedure [facility] Medication administered onsite normal saline flush 0.9 % injection 3 mL [id number] 12/15/2020 03:00:00 PM EDT 3 mL Intravenous aborted 3 mL , Intravenous, PROTOCOL, First dose on Sun12/15/20 at 1500, Pre-op
flush per protocol, D/C Main IV fluid if appropriate
[facility] Medication administered onsite sodium chloride 0.9% (NS) infusion [id number] 12/15/2020 02:00:00 PM EDT 100 mL/h Intravenous aborted at 100 m L/hr, 100 mL/hr, Intravenous, Continuous, Starting on Sun12/15/20 at 1400, Pre-op
Start two hours prior to scheduled start time
[facility] Medication administered onsite Acetaminophen 325 MG [...] mg from all sources in 24 hours."
[facility] Medication administered onsite Bisoprolol Fumarate 5 MG Oral Tablet bisoprolol (ZEBET A) tablet 2.5 mg bisoprolol (ZEBETA) tablet 2.5 mg 12/15/2020 02:00:00 AM EDT 2.5 mg Oral completed 2.5 mg, Oral, Once, On Sun 1 at 0200, For 1 dose [facility] Medication administered onsite clopidogrel 75 MG Oral Tablet clopidogrel (PLAVIX) tab let 75 mg clopidogrel (PLAVIX) tablet 75 mg 12/14/2020 09:00:00 AM EDT 75 mg Oral active 75 mg, Oral, Daily, First dose on Sun12/14/20 at 0900 [facility] Medication administered onsite Aspirin 81 MG Chewable Tablet aspirin chewable tablet 81 mg aspirin chewable tablet 81 mg 12/14/2020 09:00:00 AM EDT 81 mg Oral activ e 81 mg, Oral, Daily, First dose on Sun12/14/20 at 0900 [facility] Medication administered onsite acetylcysteine (ACETADOTE) 9,460 mg in dextrose 5 % 1,000 mL infusion 12/14/2020 02:00:00 AM EDT 100 mg/kg Intravenous complet ed 9,460 mg (100 mg/kg 94.6 kg), Intravenous, Administer over 16 Hours, Once, On Sun12/14/20 at 0200, For 1 dose [facility] Medication administered onsite acetylcysteine (ACETADOTE) 4,740 mg in dextrose 5 % 500 mL i nfusion 12/13/2020 10:00:00 PM EDT 50 mg/kg Intravenous completed 4,740 mg (rounded from 4,730 mg = 50 mg/kg 94.6 kg), Intravenous, Administer over 4 Hours, Once, On Sun12/13/20 at 2200, For 1 dose [facility] Medication administered onsite montelukast 10 MG Oral Tablet montelukast (SINGULAIR) tablet 10 mg montelukast (SINGULAIR) tablet 10 mg 12/13/2020 09:00:00 PM EDT 10 mg Oral active 10 mg, Oral, Nightly, First dose on Sun12/13/20 at 2100 [facility] Medication administered onsite acetylcysteine (ACETADOTE) 14,200 mg in dextrose 5 % 200 mL infusion 12/13/2020 09:00:00 PM EDT 150 mg/kg Intravenous complet ed 14,200 mg (rounded from 14,190 mg = 150 mg/kg 94.6 kg), Intravenous, Administer over 1 Hours, Once, On Sun12/13/20 at 2100, For 1 dose [facility] Medication administered onsite Insulin Lispro 100 [...] cover POC glucose at 08:00, 12:00, 17:00.
[facility] Medication administered onsite normal saline flush 0.9 % injection 3 mL [id number] 12/13/2020 03:00:00 PM EDT 3 mL Intravenous aborted 3 mL , Intravenous, PROTOCOL, First dose on Sun12/13/20 at 1500
flush per protocol, D/C Main IV fluid if appropriate
[facility] Medication administered onsite normal saline flush 0.9 % injection 3 mL [id number] 12/13/2020 02:00:00 PM EDT 3 mL Intravenous active 3 mL , Intravenous, Every 8 hours (scheduled), First dose on Sun12/13/20 at 1400
flush per protocol, D/C Main IV fluid if appropriate
[facility] Medication administered onsite Bisoprolol Fumarate 5 MG Oral Tablet bisoprolol (ZEBET A) tablet 5 mg bisoprolol (ZEBETA) tablet 5 mg 12/13/2020 02:00:00 PM EDT 5 mg Oral active 5 mg, Oral, Daily, First dose on Sun12/13/20 at 1400
Hold for manual SBP < 110, HR < 65
[facility] Medication administered onsite perflutren lipid microsphere (DEFINITY) 8.476 mg in 10 mL NS IV drug or medication 12/13/2020 01:24:55 PM EDT mL Intravenous co mpleted 2-10 mL, Intravenous, Once as needed, to be used when clinically necessary, Starting on Sun12/13/20 at 1324, For 1 dose
To be given with prototype technician at bedside for exam 1. Activate in VIALMIX agitator for 45 seconds 2. Withdraw 1.3 ml of activated perflutren suspension and dilute in 8.7 ml of 0.9% NS (Total volume = 10 ml) 3. Inject 2 ml slowly over 30 seconds. Repeat in 2 ml aliquots as needed. DO NOT EXCEED 10 ML TOTAL DOSE!
[facility] Medication administered onsite Albuterol 0.83 MG/ML Inhalant Solution a lbuterol (PROVENTIL) nebulizer solution 2.5 mg albuterol (PROVENTIL) nebulizer solution 2.5 mg 2020 01:19:02 PM EDT 2.5 mg active 2.5 mg, Nebulization, RT 4 times daily as needed, wheezing, Starting on Sun12/13/20 at 1319 [facility] Medication administered onsite Nitroglycerin 0.4 MG Sublingual Tablet n itroglycerin (NITROSTAT) SL tablet 0.4 mg nitroglycerin (NITROSTAT) SL tablet 0.4 mg 12/13/2020 01:16:55 P M EDT 0.4 mg Sublingual active 0.4 mg, S ublingual, Every 5 min PRN, chest pain, Starting on Sun12/13/20 at 1316
May administer up to 3 doses per episode.
[facility] Medication administered onsite 500 ML heparin [...] 1 unit/kg/hr IV58.1 - 87 Therapeutic, No Iyqkqq29.1 - 97 Decrease infusion 1 unit/kg/hr IV [...] single port tubing (SmartSite Infusion Set ref [id number]). Medication and tubing is to be discarded if infusion off for 4 hours.
[facility] Medication administered onsite 1 ML heparin [...] 30 units/kg IV (Maximum bolus: 5,000 units)
[facility] Medication administered onsite BLOOD SUGAR DIAGNOSTIC [...] FOR BLOOD PRESURE GREATER THAN 150/90 SOLD: 02/26/2021 [facility] 10 mg 11/26/2020 12:00:00 AM [...] MOUTH EVERY EVENING SOLD: 01/27/2021 [facility] 24 HR Metformin hydrochloride 500 MG Extended Release Oral T ablet METFORMIN HCL 11/26/2020 12:00:00 AM EDT tablet extended release 24 hr 60 TAKE TWO TABLETS BY MOUTH EVERY EVENING TAKE TWO TABLETS BY MOUTH EVERY EVENING SOLD: 02/26/2021 [facility] 81 mg 11/26/2020 12:00:00 AM [...] TEST THREE TIMES A DAY SOLD: 01/28/2021 [facility] BLOOD SUGAR DIAGNOSTIC 08/25/2020 12:00:00 AM [...] AM EDT act helio Lancets - eCW1 ([facility]) Blood Glucose Monitor System w/Device Blood Glucose Monitor System w/Device 07/30/2020 12:00:00 AM EDT active Blood Glucose Monitor System w/Device eCW1 ([facility]) Blood Glucose Test - Blood Glucose Test - 07/30/2020 12:00:00 AM EDT active Blood Glucose Test - eCW1 ([facility]) Blood Glucose Monitor System w/Device Blood Glucose Monitor System w/Device 07/30/2020 12:00:00 AM EDT active Blood Glucose Monitor System w/Device eCW1 ([facility]) Blood Glucose Monitor System w/Device Blood Glucose Monitor System w/Device 07/30/2020 12:00:00 AM EDT active Blood Glucose Monitor System w/Device eCW1 ([facility]) Blood Glucose Test - Blood Glucose Test - 07/30/2020 12:00:00 AM EDT active Blood Glucose Test - eCW1 ([facility]) Lancets - Lancets - 07/30/2020 12:00:00 AM EDT act helio Lancets - eCW1 ([facility]) Blood Glucose Monitor System w/Device Blood Glucose Monitor System w/Device 07/30/2020 12:00:00 AM EDT active Blood Glucose Monitor System w/Device eCW1 ([facility]) FreeStyle Lite Test - FreeStyle Lite Test - 07/30/2020 12:00:00 AM EDT active FreeStyle Lite Test - eCW1 ( [facility]) Blood Glucose Test - Blood Glucose Test - 07/30/2020 12:00:00 AM EDT active Blood Glucose Test - eCW1 ([facility]) Lancets - Lancets - 07/30/2020 12:00:00 AM EDT act helio Lancets - eCW1 ([facility]) Blood Glucose Test - Blood Glucose Test - 07/30/2020 12:00:00 AM EDT active Blood Glucose Test - eCW1 ([facility]) Lancets - Lancets - 07/30/2020 12:00:00 AM EDT act helio Lancets - eCW1 ([facility]) Blood Glucose Test - Blood Glucose Test - 07/30/2020 12:00:00 AM EDT active Blood Glucose Test - eCW1 ([facility]) Lancets - Lancets - 07/30/2020 12:00:00 AM EDT act helio Lancets - eCW1 ([facility]) Blood Glucose Test - Blood Glucose Test - 07/30/2020 12:00:00 AM EDT active Blood Glucose Test - eCW1 ([facility]) Blood Glucose Monitor System w/Device Blood Glucose Monitor System w/Device 07/30/2020 12:00:00 AM EDT active Blood Glucose Monitor System w/Device eCW1 ([facility]) FreeStyle Lite Test - FreeStyle Lite Test - 07/30/2020 12:00:00 AM EDT active FreeStyle Lite Test - eCW1 ( [facility]) FreeStyle Lite Test - FreeStyle Lite Test - 07/30/2020 12:00:00 AM EDT active FreeStyle Lite Test - eCW1 ( [facility]) Blood Glucose Monitor System w/Device Blood Glucose Monitor System w/Device 07/30/2020 12:00:00 AM EDT active Blood Glucose Monitor System w/Device eCW1 ([facility]) Lancets - Lancets - 07/30/2020 12:00:00 AM EDT act helio Lancets - eCW1 ([facility]) FreeStyle Lite Test - FreeStyle Lite Test - 07/30/2020 12:00:00 AM EDT active FreeStyle Lite Test - eCW1 ( [facility]) FreeStyle Lite Test - FreeStyle Lite Test - 07/30/2020 12:00:00 AM EDT active FreeStyle Lite Test - eCW1 ( [facility]) Lancets - Lancets - 07/30/2020 12:00:00 AM EDT act helio Lancets - eCW1 ([facility]) FreeStyle Lite Test - FreeStyle Lite Test - 07/30/2020 12:00:00 AM EDT active FreeStyle Lite Test - eCW1 ( [facility]) Lancets - Lancets - 07/30/2020 12:00:00 AM EDT act helio Lancets - eCW1 ([facility]) FreeStyle Lite Test - FreeStyle Lite Test - 07/30/2020 12:00:00 AM EDT active FreeStyle Lite Test - eCW1 ( [facility]) FreeStyle Lite Test - FreeStyle Lite Test - 07/30/2020 12:00:00 AM EDT active FreeStyle Lite Test - eCW1 ( [facility]) Blood Glucose Test - Blood Glucose Test - 07/30/2020 12:00:00 AM EDT active Blood Glucose Test - eCW1 ([facility]) Blood Glucose Monitor System w/Device Blood Glucose Monitor System w/Device 07/30/2020 12:00:00 AM EDT active Blood Glucose Monitor System w/Device eCW1 ([facility]) Blood Glucose Monitor System w/Device Blood Glucose Monitor System w/Device 07/30/2020 12:00:00 AM EDT active Blood Glucose Monitor System w/Device eCW1 ([facility]) Blood Glucose Test - Blood Glucose Test - 07/30/2020 12:00:00 AM EDT active Blood Glucose Test - eCW1 ([facility]) 24 HR Metformin hydrochloride 500 MG [...] AM EDT ORAL completed [facility] ([facility]) Bisoprolol Fumarate 5 MG Oral Tablet Bisoprolol Fumarate 12:00:00 AM EDT ORAL active [facility] ([facility]) 24 HR Metformin hydrochloride 500 MG [...] MetFO RMIN HCl ER 500 MG eCW1 ([facility]) 24 HR Metformin hydrochloride 500 MG Ext ended Release Oral Tablet MetFORMIN HCl ER 500 MG MetFORMIN HCl ER 500 MG 07/28/2020 12:00:00 AM EDT 2.0 {tablet_with_evening_meal} active MetFO RMIN HCl ER 500 MG eCW1 ([facility]) 24 HR Metformin hydrochloride 500 MG Ext ended Release Oral Tablet MetFORMIN HCl ER 500 MG MetFORMIN HCl ER 500 MG 07/28/2020 12:00:00 AM EDT 2.0 {tablet_with_evening_meal} active MetFO RMIN HCl ER 500 MG eCW1 ([facility]) 24 HR Metformin hydrochloride 500 MG Ext ended Release Oral Tablet MetFORMIN HCl ER 500 MG MetFORMIN HCl ER 500 MG 07/28/2020 12:00:00 AM EDT 2.0 {tablet_with_evening_meal} active MetFO RMIN HCl ER 500 MG eCW1 ([facility]) 24 HR Metformin hydrochloride 500 MG Ext ended Release Oral Tablet metFORMIN HCl ER 500 MG metFORMIN HCl ER 500 MG 07/28/2020 12:00:00 AM EDT 2.0 {tablet_with_evening_meal} active metFO RMIN HCl ER 500 MG eCW1 ([facility]) 24 HR Metformin hydrochloride 500 MG Ext ended Release Oral Tablet MetFORMIN HCl ER 500 MG MetFORMIN HCl ER 500 MG 07/28/2020 12:00:00 AM EDT 2.0 {tablet_with_evening_meal} active MetFO RMIN HCl ER 500 MG eCW1 ([facility]) 24 HR Metformin hydrochloride 500 MG Ext ended Release Oral Tablet MetFORMIN HCl ER 500 MG MetFORMIN HCl ER 500 MG 07/28/2020 12:00:00 AM EDT 2.0 {tablet_with_evening_meal} active MetFO RMIN HCl ER 500 MG eCW1 ([facility]) montelukast 10 MG Oral Tablet MONTELUKAST SODIUM [...] EST ORAL active [facility] ([facility]) Steglatro Steglatro 04/26/2020 12:00:00 AM EST ORAL act helio MEDENT ([facility]) Metformin hydrochloride 850 MG Oral Tablet METFORMIN [...] EVERY DAY WITH FOOD SOLD: 05/31/2020 [facility] atorvastatin 80 MG Oral Tablet ATORVASTATIN CALCIUM 02/25/2020 1 2:00:00 AM EST tablet 90 TAKE ONE TABLET BY MOUTH EVERY D AY TAKE ONE TABLET BY MOUTH EVERY DAY SOLD: 02/28/2020 [facility] 80 mg 02/25/2020 12:00:00 AM EST tablet 30 TAKE ONE TABLET BY MOUTH EVERY DAY TAKE ONE TABLET BY MOUTH EVERY DAY SOLD: 06/30/2020 [facility] atorvastatin 80 MG Oral Tablet ATORVASTATIN [...] { tablet} active Steglatro 15 MG eCW1 ([facility]) Steglatro 15 MG Steglatro 15 MG 02/20/2020 12:00:00 AM EST 1.0 { tablet} active Steglatro 15 MG eCW1 ([facility]) montelukast 10 MG Oral Tablet MONTELUKAST SODIUM [...] 1.0 {tablet} active Singulair 10 MG eCW1 ([facility]) montelukast 10 MG Oral Tablet [Singulair] Singulair 10 MG Si ngulair 10 MG 02/12/2020 12:00:00 AM EST 1.0 {tablet} active Singulair 10 MG eCW1 ([facility]) 15 mg 01/29/2020 12:00:00 AM EDT tablet [...] { tablet} active Steglatro 15 MG eCW1 ([facility]) Steglatro 15 MG Steglatro 15 MG 01/28/2020 12:00:00 AM EDT 1.0 { tablet} active Steglatro 15 MG eCW1 ([facility]) Steglatro 15 MG Steglatro 15 MG 01/28/2020 12:00:00 AM EDT 1.0 { tablet} active Steglatro 15 MG eCW1 ([facility]) Steglatro 15 MG Steglatro 15 MG 01/28/2020 12:00:00 AM EDT 1.0 { tablet} active Steglatro 15 MG eCW1 ([facility]) montelukast 10 MG Oral Tablet MONTELUKAST SODIUM 01/15/2020 12:0 0:00 AM EDT tablet 30 TAKE ONE TABLET BY MOUTH EVERY D AY TAKE ONE TABLET BY MOUTH EVERY DAY SOLD: 01/15/2020 [facility] 90 mcg/actuation 01/15/2020 12:00:00 AM EDT HFA aerosol inha ler 18 INHALE 2 PUFFS BY MOUTH EVERY 4 HOURS NEEDED INHALE 2 PUFFS BY MOUTH EVERY 4 HOURS NEEDED SOLD: 01/15/2020 [facility] montelukast 10 MG Oral Tablet [Singulair] Singulair 10 MG Si ngulair 10 MG 01/15/2020 12:00:00 AM EDT 1.0 {tablet} active Singulair 10 MG eCW1 ([facility]) OneTouch Ultra II Test Strips UNK 01/15/2020 12:00:00 AM EDT active OneTouch Ultra II Test Strips eCW1 ([facility]) OneTouch Ultra II Test Strips UNK 01/15/2020 12:00:00 AM EDT active OneTouch Ultra II Test Strips eCW1 ([facility]) OneTouch Ultra II Test Strips UNK 01/15/2020 12:00:00 AM EDT active OneTouch Ultra II Test Strips eCW1 ([facility]) OneTouch Ultra II Test Strips UNK 01/15/2020 12:00:00 AM EDT active OneTouch Ultra II Test Strips eCW1 ([facility]) montelukast 10 MG Oral Tablet [Singulair] Singulair 10 MG Si ngulair 10 MG 01/15/2020 12:00:00 AM EDT 1.0 {tablet} active Singulair 10 MG eCW1 ([facility]) 90 mcg/actuation 01/15/2020 12:00:00 AM EDT HFA aerosol inha ler 18 INHALE 2 PUFFS BY MOUTH EVERY 4 HOURS NEEDED INHALE 2 PUFFS BY MOUTH EVERY 4 HOURS NEEDED SOLD: 09/07/2020 [facility] empagliflozin 10 MG Oral Tablet [Jardiance] Jardiance 10 MG Jardiance 10 MG 01/15/2020 12:00:00 AM EDT 1.0 {tablet} active Jardiance 10 MG eCW1 ([facility]) OneTouch Ultra II Test Strips UNK 01/15/2020 12:00:00 AM EDT active OneTouch Ultra II Test Strips eCW1 ([facility]) empagliflozin 10 MG Oral Tablet [Jardiance] Jardiance 10 MG Jardiance 10 MG 01/15/2020 12:00:00 AM EDT 1.0 {tablet} active Jardiance 10 MG eCW1 ([facility]) OneTouch Ultra II Test Strips UNK 01/15/2020 12:00:00 AM EDT active OneTouch Ultra II Test Strips eCW1 ([facility]) BLOOD SUGAR DIAGNOSTIC 01/15/2020 12:00:00 AM EDT [...] 30 TAKE ONE TABLET BY MOUTH BEAN DAY WITH A MEAL TAKE ONE TABLET BY [...] 30 TAKE ONE TABLET BY MOUTH BEAN DAY WITH A MEAL TAKE ONE TABLET BY [...] by mouth 2 (two) times a day [facility] Atenolol 50 MG Oral Tablet atenolol (TENORMIN) 50 MG t ablet atenolol (TENORMIN) 50 MG tablet 50 mg Oral aborted Ron e 50 mg by mouth 2 (two) times a day [facility] Metformin hydrochloride 850 MG Oral Tablet metFORMIN ( GLUCOPHAGE) 850 MG tablet metFORMIN (GLUCOPHAGE) 850 MG tablet 850 mg Oral a borted Take 850 mg by mouth daily with breakfast [facility] PARoxetine (PAXIL) 20 MG tablet [address]-0 20 mg Oral aborted Take 20 mg by mouth every morning [facility] Bisoprolol Fumarate 5 MG Oral Tablet bisoprolol (ZEBET A) 5 MG tablet bisoprolol (ZEBETA) 5 MG tablet 5 mg Oral aborted Ron e 5 mg by mouth nightly [facility] Amlodipine 10 MG Oral Tablet amLODIPine (NORVASC) 10 M G tablet amLODIPine (NORVASC) 10 MG tablet 10 mg Oral aborted T charla 10 mg by mouth daily [facility] clopidogrel 75 MG Oral Tablet clopidogrel (PLAVIX) 75 MG tablet clopidogrel (PLAVIX) 75 MG tablet 75 mg Oral aborted Ta ke 75 mg by mouth daily [facility] Ibuprofen 200 MG Oral Tablet ibuprofen (ADVIL,MOTRIN) 200 MG tablet ibuprofen (ADVIL,MOTRIN) 200 MG tablet 200 mg Oral aborted Take 200 mg by mouth every 6 (six) hours as needed for pain [facility] Chlorthalidone 25 MG Oral Tablet chlorthalidone (HYGRO TEN) 25 MG tablet chlorthalidone (HYGROTEN) 25 MG tablet 12.5 mg Oral aborted Take 12.5 mg by mouth daily [facility] Insurance Providers Payer name Policy type / Coverage type Policy ID Covered alliance party ID Covered alliance party's relationship to alvarez Policy Alvarez Plan Information [facility] [id number] Self 1 [id number] [facility] [id number] Self 1 [id number] [facility] Commercial [id number] Self [facility] MEDICAID [id number] Alexandre [id number] 15 [facility] MEDICAID [id number] [facility]-Medicaid [id number] ANSI-Medicaid [id number] [facility] Health Maintenance Organization (HMO) [id number] [facility] Health Maintenance Organization (HMO) [id number] Self [facility]) O [id number] S [id number] SELF PAY UNAVAILABLE UNAVAILA BLE UN[employer] AMERICHOICE XIX O [id number] 18 [id number] BLUE CROSS BLUE SHIELD-CLINIC [id number] UN COMMUNITY PLAN MCDO [id number] SP [id number] MEDICAID - CLINIC [id number] [employer] [place] MCDO [id number] SP [id number] [facility](MCAID) O [id number] S [id number] ANSI-Medicaid [id number] [facility] [id number] Self [id number] Problems, Conditions, and Diagnoses Code Display Name Description Problem Type Effective Dates Data Source(s) I47.2 Ventricular tachycardia Ventricular tachycardia Diagno sis 02/21/2021 05:48:00 AM EST [facility] I25.5 Ischemic cardiomyopathy Ischemic cardiomyopathy Diagno sis 12/13/2020 12:38:00 PM EDT [facility] I24.9 Acute ischemic heart disease, unspecifie d Acute ischemic heart disease, unspecifie Diagnosis 12/13/2020 12:38:00 PM EDT [facility] N17.9 Acute kidney failure, unspecified Acute kidney f ailure, unspecified Diagnosis 12/13/2020 12:38:00 PM EDT [facility] R77.8 Other specified abnormalities of plasma proteins Other specified abnormalities of plasma Diagnosis 12/13/2020 12:38:00 PM EDT [facility] I21.4 Non-ST elevation (NSTEMI) myocardial inf arction Non-ST elevation (NSTEMI) myocardial inf Diagnosis 12/13/2020 12:38:00 PM EDT [facility] I10 Hypertension Hypertension [id number] 02/21/2021 12:00:00 A M EST [facility] I25.10 Coronary artery disease Coronary artery disease [id number] 02/21/2021 12:00:00 AM [facility] Z45.02 Defibrillator discharge Defibrillator discharge [id number] 02/21/2021 12:00:00 AM [facility] I47.2 Paroxysmal ventricular tachycardia Paroxysmal ve ntricular tachycardia Problem 12/23/2020 12:00:00 AM EDT [facility] ([facility] Z95.810 Automatic implantable cardiac defibrilla tor in situ Automatic implantable cardiac defibrillator in situ Problem 12/23/2020 12:00:0 0 AM EDT [facility] ([facility]) I25.5 Ischemic cardiomyopathy Ischemic cardiomyopathy [id number] 12/15/2020 12:00:00 AM EDT [facility] I24.9 Acute coronary syndrome Acute coronary syndrome [id number] 12/15/2020 12:00:00 AM EDT [facility] I45.10 RBBB RBBB [id number] 12/13/2020 12:00:00 AM ED T [facility] R79.89 Elevated LFTs Elevated LFTs [id number] 12/13/2020 12:00:00 AM EDT [facility] N17.9 JOHN (acute kidney injury) JOHN (acute kidney injury) [id number] 12/13/2020 12:00:00 AM EDT [facility] I25.110 Coronary artery disease invo lving [place] coronary artery of [place] heart with unstable angina pectoris Coronary artery disease involving [place] coronary artery of [place] heart with unstable angina pectoris [id number] 12/13/2020 12:00:00 AM EDT [facility] R77.8 Elevated troponin Elevated troponin [id number] 12/13/2020 12:00:00 AM EDT [facility] Z72.0 Tobacco use Tobacco use [id number] 12/13/2020 12:00:00 AM EDT [facility] I10 HTN (hypertension) HTN (hypertension) [id number] 12:00:00 AM EDT [facility] E11.9 DM2 (diabetes mellitus, type 2) DM2 (diabetes mellitus , type 2) [id number] 12/13/2020 12:00:00 AM EDT [facility] J44.9 COPD (chronic obstructive pulmonary dise ase) COPD (chronic obstructive pulmonary disease) [id number] 12/13/2020 12:00:00 AM EDT [facility] I47.2 Ventricular tachycardia Ventricular tachycardia [id number] 12/13/2020 12:00:00 AM EDT [facility] E78.00 [id number] Pure hypercholesterolemia Problem 07/23/2020 12:00:00 AM EDT eCW1 ([facility]) I25.10 [id number] Coronary artery dise ase involving [place] coronary artery of [place] heart without angina pectoris Problem 01/15/2020 12:00:00 AM EDT eCW1 ([facility]) J30.89 [id number] Non-seasonal allergic rhinitis, unspecifi ed trigger Problem 01/15/2020 12:00:00 AM EDT eCW1 ([facility]) Surgeries/Procedures Procedure Description Date Indications Data Source(s) ECG ROUTINE ECG W/LEAST 12 LDS W/I&R 02/25/2021 12:00: 00 AM EST [facility] ([facility]) OFFICE OUTPATIENT VISIT 25 MINUTES 02/25/2021 12:00:00 AM EST [facility] ([facility]) GLUC BLD GLUC MNTR DEV CLEARED FDA SPEC HOME USE <td>P OCT GLUCOSE</td><td>Routine</td><td>02/22/2021 7:53 AM EST</td><td></td><td> </td> 02/22/2021 07:53:00 AM EST [facility] BLOOD COUNT COMPLETE AUTOMATED <td>CBC</td><td>Timed</ td><td>02/22/2021 4:20 AM EST</td><td></td><td> </td> 02/22/2021 04:20:00 AM EST [facility] BASIC METABOLIC PANEL CALCIUM TOTAL <td>BASIC METABOLI C PANEL</td><td>Timed</td><td>02/22/2021 4:20 AM EST</td><td></td><td> </td> 02/22/2021 04:20:00 AM EST [facility] ECG ROUTINE ECG W/LEAST 12 LDS TRCG ONLY W/O I&R <td>E CG 12- LEAD</td><td>Routine</td><td>02/22/2021 3:44 AM EST</td><td></td><td></td> 02/22/2021 03:44:39 AM EST [facility] GLUC BLD GLUC MNTR DEV CLEARED FDA SPEC HOME USE <td>P OCT GLUCOSE</td><td>Routine</td><td>02/21/2021 4:02 PM EST</td><td></td><td> </td> 02/21/2021 04:02:00 PM EST [facility] GLUC BLD GLUC MNTR DEV CLEARED FDA SPEC HOME USE <td>P OCT GLUCOSE</td><td>Routine</td><td>02/21/2021 1:18 PM EST</td><td></td><td> </td> 02/21/2021 01:18:00 PM EST [facility] Transthoracic echocardiography with cont rast, or without contrast followed by with contrast, real-time with image documentation (2d), includes m-mode recording, when performed, follow-up or limited study <td>ECHOCARDIOGRAM TRANSTHORACIC LIMITED W/ CONTRAST</td><td>Pending Discharge</td><td>02/21/2021 12:25 PM EST</td><td></td><td> </td> 02/21/2021 12:25:17 PM EST [facility] GLUC BLD GLUC MNTR DEV CLEARED FDA SPEC HOME USE <td>P OCT GLUCOSE</td><td>Routine</td><td>02/21/2021 9:17 AM EST</td><td></td><td> </td> 02/21/2021 09:17:00 AM EST [facility] XR CHEST PORTABLE <td>XR CHEST PORTABLE</td><t d>Routine</td><td>02/21/2021 8:32 AM EST</td><td></td><td> </td> 02/21/2021 08:32:15 AM EST [facility] NT PRO BNP <td>NT PRO BNP</td><td>Routi ne</td><td>02/21/2021 6:41 AM EST</td><td></td><td> </td> 02/21/2021 06:41:00 AM EST [facility] TROPONIN QUANTITATIVE <td>TROPONIN I</td><td>Timed </td><td>02/21/2021 6:41 AM EST</td><td></td><td> </td> 02/21/2021 06:41:00 AM EST [facility] CULTURE BACTERIAL BLOOD AEROBIC W/ID ISOLATES <td>BLOO D CULTURE</td><td>Routine</td><td>02/21/2021 6:41 AM EST</td><td></td><td></td> 02/21/2021 06:41:00 AM EST [facility] CULTURE BACTERIAL BLOOD AEROBIC W/ID ISOLATES <td>BLOO D CULTURE</td><td>Routine</td><td>02/21/2021 6:41 AM EST</td><td></td><td></td> 02/21/2021 06:41:00 AM EST [facility] THROMBOPLASTIN TIME PARTIAL PLASMA/WHOLE BLOOD <td>APTT</td><td>Routine</td><td>02/21/2021 6:41 AM EST</td><td></td><td> </td> 02/21/2021 06:41:00 AM EST [facility] PROTHROMBIN TIME <td>PROTIME-INR</td><td>Rout ine</td><td>02/21/2021 6:41 AM EST</td><td></td><td> </td> 02/21/2021 06:41:00 AM EST [facility] BLOOD COUNT COMPLETE AUTO&AUTO DIFRNTL WBC COUNT <td>C BC AND DIFFERENTIAL</td><td>Routine</td><td>02/21/2021 6:41 AM EST</td><td></td><td> </td> 02/21/2021 06:41:00 AM EST [facility] BLOOD TYPING ABO <td>TYPE AND SCREEN</td><td> Routine</td><td>02/21/2021 6:41 AM EST</td><td></td><td> </td> 02/21/2021 06:41:00 AM EST [facility] THYROID STIMULATING HORMONE TSH <td>TSH</td><td>Routin e</td><td>02/21/2021 6:41 AM EST</td><td></td><td> </td> 02/21/2021 06:41:00 AM EST [facility] MAGNESIUM <td>MAGNESIUM</td><td>Routin e</td><td>02/21/2021 6:41 AM EST</td><td></td><td> </td> 02/21/2021 06:41:00 AM EST [facility] COMPREHENSIVE METABOLIC PANEL <td>COMPREHENSIVE METABO LIC PANEL</td><td>STAT</td><td>02/21/2021 6:41 AM EST</td><td></td><td> </td> 02/21/2021 06:41:00 AM EST [facility] URINE CULTURE HOLD SPECIMEN <td>URINE CULTURE HOLD SPECIMEN</td><td>Routine</td><td>02/21/2021 6:08 AM EST</td><td></td><td> </td> 02/21/2021 06:08:00 AM EST [facility] URNLS DIP STICK/TABLET RGNT AUTO W/O MICROSCOPY <td>UR INALYSIS W/O MICRO</td><td>Routine</td><td>02/21/2021 6:08 AM EST</td><td></td><td> </td> 02/21/2021 06:08:00 AM EST [facility] ECG ROUTINE ECG W/LEAST 12 LDS TRCG ONLY W/O I&R <td>E CG 12- LEAD</td><td>Routine</td><td>02/21/2021 5:57 AM EST</td><td></td><td></td> 02/21/2021 05:57:02 AM EST [facility] Imm: Flublok Quadrivalent 18 years & older 0.5mL IM Influenz a 01/19/2021 12:00:00 AM EDT eCW1 ([facility]) INTERROGATION EVAL F2F 1/DUAL/COMPONENTS ENGINEER LEADS CVDFB 01/07/20 12:00:00 AM EDT [facility] ([facility]) ECG ROUTINE ECG W/LEAST 12 LDS W/I&R 12/23/2020 12:00: 00 AM EDT [facility] ([facility]) OFFICE OUTPATIENT VISIT 25 MINUTES 12/23/2020 12:00:00 AM EDT [facility] ([facility]) XR CHEST PORTABLE <td>XR CHEST PORTABLE</td><t d>STAT</td><td>12/17/2020 6:56 PM EDT</td><td></td><td> </td> 12/17/2020 06:56:35 PM EDT [facility] GLUC BLD GLUC MNTR DEV CLEARED FDA SPEC HOME USE <td>P OCT GLUCOSE</td><td>Routine</td><td>12/17/2020 6:51 PM EDT</td><td></td><td> </td> 12/17/2020 06:51:00 PM EDT [facility] EP STUDY <td>EP STUDY</td><td>Routine </td><td>12/17/2020 5:32 PM EDT</td><td> Sustained VT (ventricular tachycardia)</td><td> </td> 12/17/2020 05:32:55 PM EDT Sustained VT (ventricular tachycardia) [facility] Sustained VT (ventricular tachycardia) GLUC BLD GLUC MNTR DEV CLEARED FDA SPEC HOME USE <td>P OCT GLUCOSE</td><td>Routine</td><td>12/17/2020 11:47 AM EDT</td><td></td><td> </td> 12/17/2020 11:47:00 AM EDT [facility] GLUC BLD GLUC MNTR DEV CLEARED FDA SPEC HOME USE <td>P OCT GLUCOSE</td><td>Routine</td><td>12/17/2020 9:12 AM EDT</td><td></td><td> </td> 12/17/2020 09:12:00 AM EDT [facility] THROMBOPLASTIN TIME PARTIAL PLASMA/WHOLE BLOOD <td>APTT</td><td>Routine</td><td>12/17/2020 8:00 AM EDT</td><td></td><td> </td> 12/17/2020 08:00:00 AM EDT [facility] Hemodialysis (procedure) <td>HEMODIALYSIS INPATIENT TX</td><td>Routine</td><td>12/17/2020 12:07 AM EDT</td><td></td><td></td> 12/17/2020 12:07:30 AM EDT [facility] THROMBOPLASTIN TIME PARTIAL PLASMA/WHOLE BLOOD <td>APTT</td><td>Routine</td><td>12/17/2020 12:07 AM EDT</td><td></td><td> </td> 12/17/2020 12:07:00 AM EDT [facility] GLUC BLD GLUC MNTR DEV CLEARED FDA SPEC HOME USE <td>P OCT GLUCOSE</td><td>Routine</td><td>12/16/2020 5:55 PM EDT</td><td></td><td> </td> 12/16/2020 05:55:00 PM EDT [facility] THROMBOPLASTIN TIME PARTIAL PLASMA/WHOLE BLOOD <td>APTT</td><td>Routine</td><td>12/16/2020 4:38 PM EDT</td><td></td><td> </td> 12/16/2020 04:38:00 PM EDT [facility] GLUC BLD GLUC MNTR DEV CLEARED FDA SPEC HOME USE <td>P OCT GLUCOSE</td><td>Routine</td><td>12/16/2020 12:02 PM EDT</td><td></td><td> </td> 12/16/2020 12:02:00 PM EDT [facility] KU2 PANEL <td>KU2 PANEL</td><td>STAT</ td><td>12/16/2020 7:44 AM EDT</td><td></td><td> </td> 12/16/2020 07:44:00 AM EDT [facility] BLOOD COUNT COMPLETE AUTOMATED <td>CBC</td><td>STAT</t d><td>12/16/2020 7:44 AM EDT</td><td></td><td> </td> 12/16/2020 07:44:00 AM EDT [facility] PHOSPHORUS INORGANIC <td>PHOSPHORUS</td><td>STAT< /td><td>12/16/2020 7:44 AM EDT</td><td></td><td> </td> 12/16/2020 07:44:00 AM EDT [facility] THROMBOPLASTIN TIME PARTIAL PLASMA/WHOLE BLOOD <td>APTT</td><td>STAT</td><td>12/16/2020 6:28 AM EDT</td><td></td><td> </td> 12/16/2020 06:28:00 AM EDT [facility] THROMBOPLASTIN TIME PARTIAL PLASMA/WHOLE BLOOD <td>APTT</td><td>STAT</td><td>12/15/2020 7:43 PM EDT</td><td></td><td> </td> 12/15/2020 07:43:00 PM EDT [facility] GLUC BLD GLUC MNTR DEV CLEARED FDA SPEC HOME USE <td>P OCT GLUCOSE</td><td>Routine</td><td>12/15/2020 6:25 PM EDT</td><td></td><td> </td> 12/15/2020 06:25:00 PM EDT [facility] CARDIAC CATHETERIZATION <td>CARDIAC CATHETERIZATION</td><td>Routine</td><td>12/15/2020 5:25 PM EDT</td><td> Acute coronary syndrome Sustained VT (ventricular tachycardia) Ischemic cardiomyopathy</td><td> </td> 12/15/2020 05:25:36 PM EDT Ischemic cardiomyopathySustained VT (lainey tricular tachycardia)Acute coronary syndrome [facility] Ischemic cardiomyopathy Sustained VT (ventricular tachycardia) Acute coronary syndrome GLUC BLD GLUC MNTR DEV CLEARED FDA SPEC HOME USE <td>P OCT GLUCOSE</td><td>Routine</td><td>12/15/2020 1:35 PM EDT</td><td></td><td> </td> 12/15/2020 01:35:00 PM EDT [facility] GLUC BLD GLUC MNTR DEV CLEARED FDA SPEC HOME USE <td>P OCT GLUCOSE</td><td>Routine</td><td>12/15/2020 8:47 AM EDT</td><td></td><td> </td> 12/15/2020 08:47:00 AM EDT [facility] KU2 PANEL <td>KU2 PANEL</td><td>STAT</ td><td>12/15/2020 8:15 AM EDT</td><td></td><td> </td> 12/15/2020 08:15:00 AM EDT [facility] BLOOD COUNT COMPLETE AUTOMATED <td>CBC</td><td>STAT</t d><td>12/15/2020 8:15 AM EDT</td><td></td><td> </td> 12/15/2020 08:15:00 AM EDT [facility] PHOSPHORUS INORGANIC <td>PHOSPHORUS</td><td>STAT< /td><td>12/15/2020 8:15 AM EDT</td><td></td><td> </td> 12/15/2020 08:15:00 AM EDT [facility] Hemodialysis (procedure) <td>HEMODIALYSIS INPATIENT TX</td><td>Routine</td><td>12/15/2020 7:08 AM EDT</td><td></td><td></td> 12/15/2020 07:08:46 AM EDT [facility] Hemodialysis (procedure) <td>HEMODIALYSIS INPATIENT TX</td><td>Routine</td><td>12/15/2020 7:08 AM EDT</td><td></td><td></td> 12/15/2020 07:08:46 AM EDT [facility] Hemodialysis (procedure) <td>HEMODIALYSIS INPATIENT TX</td><td>Routine</td><td>12/15/2020 7:08 AM EDT</td><td></td><td></td> 12/15/2020 07:08:46 AM EDT [facility] BILIRUBIN UNCONJ (INDIRECT) <td>BILIRUBIN UNCONJ (INDIRECT)</td><td>STAT</td><td>12/15/2020 5:01 AM EDT</td><td></td><td> </td> 12/15/2020 05:01:00 AM EDT [facility] THROMBOPLASTIN TIME PARTIAL PLASMA/WHOLE BLOOD <td>APTT</td><td>STAT</td><td>12/15/2020 5:01 AM EDT</td><td></td><td> </td> 12/15/2020 05:01:00 AM EDT [facility] BLOOD COUNT COMPLETE AUTOMATED <td>CBC</td><td>STAT</t d><td>12/15/2020 5:01 AM EDT</td><td></td><td> </td> 12/15/2020 05:01:00 AM EDT [facility] MAGNESIUM <td>MAGNESIUM</td><td>STAT</ td><td>12/15/2020 5:01 AM EDT</td><td></td><td> </td> 12/15/2020 05:01:00 AM EDT [facility] BILIRUBIN DIRECT <td>BILIRUBIN, DIRECT</td><t d>STAT</td><td>12/15/2020 5:01 AM EDT</td><td></td><td> </td> 12/15/2020 05:01:00 AM EDT [facility] COMPREHENSIVE METABOLIC PANEL <td>COMPREHENSIVE METABO LIC PANEL</td><td>STAT</td><td>12/15/2020 5:01 AM EDT</td><td></td><td> </td> 12/15/2020 05:01:00 AM EDT [facility] THROMBOPLASTIN TIME PARTIAL PLASMA/WHOLE BLOOD <td>APTT</td><td>STAT</td><td>12/14/2020 6:10 PM EDT</td><td></td><td> </td> 12/14/2020 06:10:00 PM EDT [facility] GLUC BLD GLUC MNTR DEV CLEARED FDA SPEC HOME USE <td>P OCT GLUCOSE</td><td>Routine</td><td>12/14/2020 4:52 PM EDT</td><td></td><td> </td> 12/14/2020 04:52:00 PM EDT [facility] GLUC BLD GLUC MNTR DEV CLEARED FDA SPEC HOME USE <td>P OCT GLUCOSE</td><td>Routine</td><td>12/14/2020 12:30 PM EDT</td><td></td><td> </td> 12/14/2020 12:30:00 PM EDT [facility] GLUC BLD GLUC MNTR DEV CLEARED FDA SPEC HOME USE <td>P OCT GLUCOSE</td><td>Routine</td><td>12/14/2020 9:16 AM EDT</td><td></td><td> </td> 12/14/2020 09:16:00 AM EDT [facility] Transthoracic echocardiography with cont rast, or without contrast followed by with contrast, real-time with image documentation (2d), includes m-mode recording, when performed, complete, with spectral doppler echocardiography, and with color flow doppler echocardiography <td>ECHOCARDIOGRAM TRANSTHORACIC COMPLETE W/ CONTRAST</td><td>Routine</td><td>12/14/2020 8:03 AM EDT</td><td></td><td> </td> 12/14/2020 08:03:02 AM EDT [facility] TROPONIN QUANTITATIVE <td>TROPONIN I</td><td>Timed </td><td>12/14/2020 5:47 AM EDT</td><td></td><td> </td> 12/14/2020 05:47:00 AM EDT [facility] THROMBOPLASTIN TIME PARTIAL PLASMA/WHOLE BLOOD <td>APTT</td><td>Routine</td><td>12/14/2020 5:47 AM EDT</td><td></td><td> </td> 12/14/2020 05:47:00 AM EDT [facility] PROTHROMBIN TIME <td>PROTIME-INR</td><td>Add- On</td><td>12/14/2020 5:47 AM EDT</td><td></td><td> </td> 12/14/2020 05:47:00 AM EDT [facility] BLOOD COUNT COMPLETE AUTOMATED <td>CBC</td><td>Routine </td><td>12/14/2020 5:47 AM EDT</td><td></td><td> </td> 12/14/2020 05:47:00 AM EDT [facility] COMPREHENSIVE METABOLIC PANEL <td>COMPREHENSIVE METABO LIC PANEL</td><td>Timed</td><td>12/14/2020 5:47 AM EDT</td><td></td><td> </td> 12/14/2020 05:47:00 AM EDT [facility] TROPONIN QUANTITATIVE <td>TROPONIN I</td><td>STAT< /td><td>12/14/2020 2:05 AM EDT</td><td></td><td> </td> 12/14/2020 02:05:00 AM EDT [facility] MAGNESIUM <td>MAGNESIUM</td><td>STAT</ td><td>12/14/2020 2:05 AM EDT</td><td></td><td> </td> 12/14/2020 02:05:00 AM EDT [facility] COMPREHENSIVE METABOLIC PANEL <td>COMPREHENSIVE METABO LIC PANEL</td><td>STAT</td><td>12/14/2020 2:05 AM EDT</td><td></td><td> </td> 12/14/2020 02:05:00 AM EDT [facility] THROMBOPLASTIN TIME PARTIAL PLASMA/WHOLE BLOOD <td>APTT</td><td>Routine</td><td>12/14/2020 12:12 AM EDT</td><td></td><td> </td> 12/14/2020 12:12:00 AM EDT [facility] ECG ROUTINE ECG W/LEAST 12 LDS TRCG ONLY W/O I&R <td>E CG 12- LEAD</td><td>STAT</td><td>12/13/2020 10:13 PM EDT</td><td></td><td></td> 12/13/2020 10:13:23 PM EDT [facility] URINE CULTURE HOLD SPECIMEN <td>URINE CULTURE HOLD SPECIMEN</td><td>Routine</td><td>12/13/2020 8:08 PM EDT</td><td></td><td> </td> 12/13/2020 08:08:00 PM EDT [facility] URINE MICROSCOPIC <td>URINE MICROSCOPIC</td><t d>Add-On</td><td>12/13/2020 8:08 PM EDT</td><td></td><td> </td> 12/13/2020 08:08:00 PM EDT [facility] PROTEIN TOTAL XCPT REFRACTOMETRY URINE <td>PROTEIN / C REATININE RATIO, URINE</td><td>Routine</td><td>12/13/2020 8:08 PM EDT</td><td></td><td> </td> 12/13/2020 08:08:00 PM EDT [facility] PROTEIN ELECTROP FXJ&STEFFEN OTH FLUS CONCENTRATION <td>P ROTEIN ELECTROPHORESIS, RANDOM URINE</td><td>Routine</td><td>12/13/2020 8:08 PM EDT</td><td></td><td></td> 12/13/2020 08:08:00 PM EDT [facility] URNLS DIP STICK/TABLET RGNT AUTO W/O MICROSCOPY <td>UR INALYSIS W/O MICRO</td><td>Routine</td><td>12/13/2020 8:08 PM EDT</td><td></td><td> </td> 12/13/2020 08:08:00 PM EDT [facility] COMPLEMENT TOTAL HEMOLYTIC <td>COMPLEMENT ACT TOTAL</td><td>Routine</td><td>12/13/2020 7:10 PM EDT</td><td></td><td> </td> 12/13/2020 07:10:00 PM EDT [facility] FLUORESCENT NONNFCT AGT ANTB SCREEN EA ANTIBODY <td>AN CA VASCULITIS PROF</td><td>Routine</td><td>12/13/2020 7:10 PM EDT</td><td></td><td> </td> 12/13/2020 07:10:00 PM EDT [facility] HEPATITIS C ANTIBODY CONFIRMATORY TEST <td>HEPATITIS C ANTIBODY</td><td>Routine</td><td>12/13/2020 7:10 PM EDT</td><td></td><td> </td> 12/13/2020 07:10:00 PM EDT [facility] ANTINUCLEAR ANTIBODIES BÁRBARA TITER <td>BÁRBARA WITH REFLEX</td><td>Routine</td><td>12/13/2020 7:10 PM EDT</td><td></td><td> </td> 12/13/2020 07:10:00 PM EDT [facility] TROPONIN QUANTITATIVE <td>TROPONIN I</td><td>Add-O n</td><td>12/13/2020 7:10 PM EDT</td><td></td><td> </td> 12/13/2020 07:10:00 PM EDT [facility] NEPHELOMETRY EACH ANALYTE YUKO <td>IMMUNOGLOBULIN FREE LT CHAINS BLOOD</td><td>Routine</td><td>12/13/2020 7:10 PM EDT</td><td></td><td> </td> 12/13/2020 07:10:00 PM EDT [facility] IMMUNOASSAY ANALYTE QUANTITATIVE NOS <td>GLOMERULAR BA SEMENT MEMBRANE IGG</td><td>Routine</td><td>12/13/2020 7:10 PM EDT</td><td></td><td> </td> 12/13/2020 07:10:00 PM EDT [facility] CERULOPLASMIN <td>CERULOPLASMIN</td><td>Ad d-On</td><td>12/13/2020 7:10 PM EDT</td><td></td><td> </td> 12/13/2020 07:10:00 PM EDT [facility] RHEUMATOID FACTOR QUANTITATIVE <td>RHEUMATOID FACTOR</td><td>Routine</td><td>12/13/2020 7:10 PM EDT</td><td></td><td> </td> 12/13/2020 07:10:00 PM EDT [facility] COMPLEMENT ANTIGEN EACH COMPONENT <td>C3 COMPLEMENT</td><td>Routine</td><td>12/13/2020 7:10 PM EDT</td><td></td><td> </td> 12/13/2020 07:10:00 PM EDT [facility] COMPLEMENT ANTIGEN EACH COMPONENT <td>C4 COMPLEMENT</td><td>Routine</td><td>12/13/2020 7:10 PM EDT</td><td></td><td> </td> 12/13/2020 07:10:00 PM EDT [facility] PROTEIN ELECTROPHORETIC FRACTJ&QUANTJ SERUM <td>PROTEI N ELECTROPHORESIS, SERUM</td><td>Routine</td><td>12/13/2020 7:10 PM EDT</td><td></td><td></td> 12/13/2020 07:10:00 PM EDT [facility] ACETAMINOPHEN <td>ACETAMINOPHEN LEVEL</td> <td>Add-On</td><td>12/13/2020 7:10 PM EDT</td><td></td><td> </td> 12/13/2020 07:10:00 PM EDT [facility] CENTRAL LINE INSERTION <td>CENTRAL LINE INSERTION</td><td>Routine</td><td>12/13/2020 7:02 PM EDT</td><td> JOHN (acute kidney injury)</td><td> </td> 12/13/2020 07:02:07 PM EDT JOHN (acute kidney injury) [facility] JOHN (acute kidney injury) XR CHEST PORTABLE <td>XR CHEST PORTABLE</td><t d>STAT</td><td>12/13/2020 6:23 PM EDT</td><td></td><td> </td> 12/13/2020 06:23:48 PM EDT [facility] Hemodialysis (procedure) <td>HEMODIALYSIS INPATIENT TX</td><td>Routine</td><td>12/13/2020 5:08 PM EDT</td><td></td><td></td> 12/13/2020 05:08:39 PM EDT [facility] POC VENOUS BLOOD GAS W LYTES <td>POC VENOUS BLOOD GAS W LYTES</td><td>Routine</td><td>12/13/2020 5:04 PM EDT</td><td></td><td> </td> 12/13/2020 05:04:00 PM EDT [facility] GLUC BLD GLUC MNTR DEV CLEARED FDA SPEC HOME USE <td>P OCT GLUCOSE</td><td>Routine</td><td>12/13/2020 5:04 PM EDT</td><td></td><td> </td> 12/13/2020 05:04:00 PM EDT [facility] DUP-SCAN ARTL FILI ABDL/PEL/SCROT&/RPR ORGN LMTD <td>US ABDOMINAL VEINS LIMITED</td><td>STAT</td><td>12/13/2020 4:55 PM EDT</td><td></td><td> </td> 12/13/2020 04:55:55 PM EDT [facility] US RETROPERITONEAL REAL TIME W/IMAGE COMPLETE <td>US R ENAL KIDNEY BILATERAL</td><td>Routine</td><td>12/13/2020 4:01 PM EDT</td><td></td><td> </td> 12/13/2020 04:01:28 PM EDT [facility] ULTRASOUND ABDOMINAL REAL TIME W/IMAGE LIMITED <td>US RIGHT UPPER QUADRANT</td><td>Routine</td><td>12/13/2020 4:01 PM EDT</td><td></td><td> </td> 12/13/2020 04:01:10 PM EDT [facility] NT PRO BNP <td>NT PRO BNP</td><td>Routi ne</td><td>12/13/2020 3:19 PM EDT</td><td></td><td> </td> 12/13/2020 03:19:00 PM EDT [facility] TROPONIN QUANTITATIVE <td>TROPONIN I</td><td>Routi ne</td><td>12/13/2020 3:19 PM EDT</td><td></td><td> </td> 12/13/2020 03:19:00 PM EDT [facility] ACUTE HEPATITIS PANEL <td>HEPATITIS PANEL, ACUTE</td><td>Routine</td><td>12/13/2020 3:19 PM EDT</td><td></td><td> </td> 12/13/2020 03:19:00 PM EDT [facility] HEPATITIS B CORE ANTIBODY HBCAB TOTAL <td>HEPATITIS B CORE ANTIBODY, TOTAL</td><td>Routine</td><td>12/13/2020 3:19 PM EDT</td><td></td><td> </td> 12/13/2020 03:19:00 PM EDT [facility] HEPATITIS B SURF ANTIBODY HBSAB <td>HEPATITIS B SURFAC E ANTIBODY</td><td>Routine</td><td>12/13/2020 3:19 PM EDT</td><td></td><td> </td> 12/13/2020 03:19:00 PM EDT [facility] THROMBOPLASTIN TIME PARTIAL PLASMA/WHOLE BLOOD <td>APTT</td><td>Routine</td><td>12/13/2020 3:19 PM EDT</td><td></td><td> </td> 12/13/2020 03:19:00 PM EDT [facility] PROTHROMBIN TIME <td>PROTIME-INR</td><td>Rout ine</td><td>12/13/2020 3:19 PM EDT</td><td></td><td> </td> 12/13/2020 03:19:00 PM EDT [facility] BLOOD COUNT COMPLETE AUTO&AUTO DIFRNTL WBC COUNT <td>C BC AND DIFFERENTIAL</td><td>Routine</td><td>12/13/2020 3:19 PM EDT</td><td></td><td> </td> 12/13/2020 03:19:00 PM EDT [facility] THYROID STIMULATING HORMONE TSH <td>TSH</td><td>Routin e</td><td>12/13/2020 3:19 PM EDT</td><td></td><td> </td> 12/13/2020 03:19:00 PM EDT [facility] PHOSPHORUS INORGANIC <td>PHOSPHORUS</td><td>Routi ne</td><td>12/13/2020 3:19 PM EDT</td><td></td><td> </td> 12/13/2020 03:19:00 PM EDT [facility] MAGNESIUM <td>MAGNESIUM</td><td>Routin e</td><td>12/13/2020 3:19 PM EDT</td><td></td><td> </td> 12/13/2020 03:19:00 PM EDT [facility] HEMOGLOBIN GLYCOSYLATED A1C <td>HEMOGLOBIN A1C</td><td>Routine</td><td>12/13/2020 3:19 PM EDT</td><td></td><td> </td> 12/13/2020 03:19:00 PM EDT [facility] ALCOHOL ANY SPECIMEN EXCEPT BREATH <td>ETHANOL</td><td>Routine</td><td>12/13/2020 3:19 PM EDT</td><td></td><td> </td> 12/13/2020 03:19:00 PM EDT [facility] LIPID PANEL <td>LIPID PANEL</td><td>Rout ine</td><td>12/13/2020 3:19 PM EDT</td><td></td><td> </td> 12/13/2020 03:19:00 PM EDT [facility] COMPREHENSIVE METABOLIC PANEL <td>COMPREHENSIVE METABO LIC PANEL</td><td>Routine</td><td>12/13/2020 3:19 PM EDT</td><td></td><td> </td> 12/13/2020 03:19:00 PM EDT [facility] URINE MICROSCOPIC <td>URINE MICROSCOPIC</td><t d>Add-On</td><td>12/13/2020 2:15 PM EDT</td><td></td><td> </td> 12/13/2020 02:15:00 PM EDT [facility] PROTEIN TOTAL XCPT REFRACTOMETRY URINE <td>PROTEIN / C REATININE RATIO, URINE</td><td>Routine</td><td>12/13/2020 2:15 PM EDT</td><td></td><td> </td> 12/13/2020 02:15:00 PM EDT [facility] CHLORIDE URINE <td>URINE ELECTROLYTES</td>< td>Routine</td><td>12/13/2020 2:15 PM EDT</td><td></td><td> </td> 12/13/2020 02:15:00 PM EDT [facility] PROTEIN ELECTROP FXJ&STEFFEN OTH FLUS CONCENTRATION <td>P ROTEIN ELECTROPHORESIS, RANDOM URINE</td><td>Routine</td><td>12/13/2020 2:15 PM EDT</td><td></td><td></td> 12/13/2020 02:15:00 PM EDT [facility] CREATININE OTHER SOURCE <td>CREATININE, URINE, RANDOM</td><td>Routine</td><td>12/13/2020 2:15 PM EDT</td><td></td><td> </td> 12/13/2020 02:15:00 PM EDT [facility] URNLS DIP STICK/TABLET RGNT AUTO W/O MICROSCOPY <td>UR INALYSIS W/O MICRO</td><td>Routine</td><td>12/13/2020 2:15 PM EDT</td><td></td><td> </td> 12/13/2020 02:15:00 PM EDT [facility] ECG ROUTINE ECG W/LEAST 12 LDS W/I&R <td>ECG 12- LEAD</td><td>Routine</td><td>12/13/2020 12:36 PM EDT</td><td></td><td></td> 12/13/2020 12:36:40 PM EDT [facility] ECHO TTHRC R-T 2D W/WOM-MODE COMPL SPEC&COLR DOP 08/03 12:00:00 AM EDT [facility] ([facility]) ECG ROUTINE ECG W/LEAST 12 LDS W/I&R 07/29/2020 12:00: 00 AM EDT [facility] ([facility]) OFFICE OUTPATIENT VISIT 25 MINUTES 07/29/2020 12:00:00 AM EDT [facility] ([facility]) ECG ROUTINE ECG W/LEAST 12 LDS W/I&R 04/27/2020 12:00: 00 AM EST [facility] ([facility]) Immunization: Flublok Quadrivalent (18 years & older) 0.5mL IM (Influenza) 01/15/2020 12:00:00 AM EDT [facility] ([facility]) Results ID Date Data Source [id number] 02/24/2021 05:41:00 PM EST [facility] Name Value Range Interpretation Code Description Data Morena rce(s) Supporting Document(s) White Blood Count 12.2 4.0-10.0 [facility] Red Blood Count 5.26 4.30-6.10 [facility] ([facility]) Hemoglobin 16.8 [facility] ([facility]) Platelets 215 150-450 [facility] Hematocrit 50.3 [facility] ([facility]) ID Date Data Source [id number] 02/24/2021 05:41:00 PM EST [facility] Name Value Range Interpretation Code Description Data Morena rce(s) Supporting Document(s) Lipoprotein lipase [Enzymatic activity/volume] in Serum or Plasma 109 [facility] ([facility]) Magnesium Level 2.1 1.8-2.4 [facility] ([facility]) ID Date Data Source [id number] 02/24/2021 05:41:00 PM EST [facility] Name Value Range Interpretation Code Description Data Morena rce(s) Supporting Document(s) Albumin [Mass/volume] in Serum or Plasma 4.4 [facility] ([facility]) Alanine aminotransferase [Enzymatic activity/volume] in Serum or Pl asma 34 [facility] ([facility]) Calcium [Mass/volume] in Serum or Plasma 10.0 [facility] ([facility]) Carbon dioxide, total [Moles/volume] in Serum or Plasma 30 [facility] ([facility]) Chloride [Moles/volume] in Serum or Plasma 99 [facility] ([facility]) Protein [Mass/volume] in Serum or Plasma 8.0 [facility] ([facility]) Alkaline phosphatase [Enzymatic activity/volume] in Serum or Plasma 7 1 [facility] ([facility]) Potassium [Moles/volume] in Serum or Plasma 4.4 [facility] ([facility]) Sodium 138 [facility] Aspartate aminotransferase [Enzymatic activity/volume] in Serum or Plasma 22 [facility] ([facility]) Urea nitrogen [Mass/volume] in Serum or Plasma 15 [facility] ([facility]) Creatinine For GFR 1.21 [facility] ([facility] Glucose 144 70-100 [facility] ID Date Data Source [id number] 02/24/2021 05:40:00 PM EST [facility] Name Value Range Interpretation Code Description Data Morena rce(s) Supporting Document(s) Troponin Laboratory test result [facility] ([facility]) ID Date Data Source [id number] 02/24/2021 05:40:00 PM EST [facility] Name Value Range Interpretation Code Description Data Morena rce(s) Supporting Document(s) Creatine kinase [Enzymatic activity/volume] in Serum or Plasma 243 [facility] ([facility]) CPK-MB 2.8 [facility] ID Date Data Source [id number] 02/22/2021 10:47:52 AM EST [facility] INFORMATIONPatient MRN Name Date of Age Gend*PT [id number] Dilan Kirk 1960 60 years M IPPT Location Admission Date/Time Visit ID Attending [id number] 02/21/21 0548 --- Leonid Hawley MD([id number]) EPI ID CSN Admitting Provider [id number] Quinn Andres MD([id number])Physician Discharge Summary Dilan KirkMRN: [id number] date: 02/21/2021dmitting Physician: CLARKE Alfonsoischarge date and time:Discharge Orders Placed(From admission, onward) Start Ordered 02/22/21 1041 Discharge patient OnceExpected Discharge Date: 02/22/21Discharge Disposition: Home or Self Care 02/22/21 1043Discharge Physician: Leonid Hawely MDAdmission Diagnosis: Ventricular tachycardiaSecondary Diagnoses: Principal Problem: Ventricular tachycardiaActive Problems: COPD (chronic obstructive pulmonary disease) DM2 (diabetes mellitus, type 2) Tobacco use Coronary artery disease Hypertension Defibrillator dischargeShort Summary of the hospital course: Mr Reina is a 60-year-old man withmedical history of CAD, he has known chronic occlusion of the RCA withcollaterals and EF of 40% on [facility] of 12/15/2020. History of type 2 diabetes,hypertension, COPD. He was admitted to [facility] December 2020 with ventriculartachycardia and other complicati ons. He underwent successful implantation ofleft-sided single-chamber ICD [facility] on 12/17/2020 for secondaryprevention. [facility] with ventriculartachycardia s/p 3 shocks.ICD discharge /V. tach.: Patient was evaluated by cardiology team during hishospital course. Patient was started on amiodarone drip. Patient has beenevaluated by EP team. Dr. Pruitt felt that ICD discharge was appropriate.Patient has been recommended to continue on amiodarone and follow-up withcardiology as an outpatient.Overall hospital course uncomplicated.Discharge home todayPast Medical History:Past Medical History:Diagnosis Date Acute kidney injury Asthma Cardiomegaly COPD (chronic obstructive pulmonary disease) 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 Diabetes mellitus Fatty liver History of herniated intervertebral disc Hypertension [place] (myocardial infarction) Sinusitis Umbilical herniaResults from last 7 daysLab Units WBC 10*3/uL 10.1HEMOGLOBIN g/dL 15.0HEMATOCRIT % 44.3PLATELETS 10*3/uL 164Results from last 7 daysLab Units SODIUM mmol/L 139POTASSIUM mmol/L 3.8CHLORIDE mmol/L 104CO2 mmol/L [...] Get Your MedicationsThese medications were sent to [facility] - [place], [place] - [id number] [place] RT [id number], [facility] [id number] amiodarone 200 MG tablet amiodarone 200 MG tabletDischarged Condition:fairDisposition: Home or Self CareFollow upspcpDr.MigeedTime spent coordinating the discharge more than 30 minutes.Signature: CLARKE Camposate: February 22, 2021Time: 10:44 AM Name Value Range Interpretation Code Description Data Morena rce(s) Supporting Document(s) ID Date Data Source [id number] 02/22/2021 09:21:32 AM EST [facility] Name Value Range Interpretation Code Description Data Morena rce(s) Supporting Document(s) EKG [facility] [id number] [file] [id number] ID Date Data Source [id number] 02/22/2021 07:55:19 AM EST [facility] Name Value Range Interpretation Code Description Data Morena rce(s) Supporting Document(s) POC NOVA GLU 151 mg/dL (70-99) H [facility] PERFORMED BY [facility] CLINICAL STAFF ID Date Data Source [id number] 02/22/2021 08:10:41 AM EST [facility] Name Value Range Interpretation Code Description Data Morena rce(s) Supporting Document(s) SODIUM 139 mmol/L (136-145) [facility] POTASSIUM 3.8 mmol/L (3.6-5.2) [facility] CHLORIDE 104 mmol/L (100-108) [facility] CO2 26 mmol/L (22-31) [facility] ANION GAP 9 mmol/L (7-16) [facility] UREA NITROGEN 16 mg/dL (7-24) [facility] CREATININE 1.08 mg/dL (0.80-1.30) [facility] BUN/CREAT RATIO 14.8 RATIO (10.0-20.0) [facility] GLUCOSE 117 mg/dL (70-99) H [facility] CALCIUM 8.9 mg/dL (8.4-10.2) [facility] GFR >60 ml/min/1.73m2 (>59) [facility] GFR ( AM) >60 ml/min/1.73m2 (>59) [facility] GFR INTERPRETATION [facility] --NORMAL KIDNEY FUNCTION OR MILD DISEASE - GFR >OR= 60CHRONIC KIDNEY DISEASE - GFR 15 - 59RENAL FAILURE - GFR <15 Est. GFR calculation based on the MDRDstudy equation, which assumes a steadystate for creatinine. Est. GFR should notbe used for medication dosing. ID Date Data Source [id number] 02/22/2021 07:08:05 AM EST [facility] Name Value Range Interpretation Code Description Data Morena rce(s) Supporting Document(s) WBC 10.1 10*3/uL (4.1-11.0) [facility] RBC 4.60 10*6/uL (4.60-6.10) [facility] HGB 15.0 g/dL (13.5-18.0) [facility] HCT 44.3 % (41.0-53.0) [facility] MCV 96.3 fL (80.0-95.0) H [facility] MCH 32.7 pg (27.0-32.0) H [facility] MCHC 33.9 g/dL (32.0-36.0) [facility] RDW 14.5 % (10.5-14.5) [facility] PLT 164 10*3/uL (150-450) [facility] MPV 9.0 fL (7.1-10.7) [facility] ID Date Data Source [id number] 02/22/2021 02:08:49 AM EST [facility] NT INFORMATIONPatient MRN Name Date of Age Gend*PT [id number] Dilan Kirk 1960 60 years M IPPT Location Admission Date/Time Visit ID Attending [id number] 02/21/21 0548 --- Leonid Hawley MD([id number]) EPI ID CSN Admitting Provider [id number] Quinn Andres MD([id number]) Attestation signed by Quinn Andres MD at [...] PROVIDER REQUESTEDInformant:Current HistoryChief Complaint: [facility] ventriculartachycardiaHPI:This patient is a 60 years male with medical history of CAD, he has knownchronic occlusion of the RCA with collaterals and EF of 40% on [facility] of 12/15/2020.History of type 2 diabetes, hypertension, COPD. [facility] and other [facility]. Heunderwent successful implantation of left-sided single-chamber ICD [employer] on 12/17/2020 for secondary prevention. He transfers from [facility] with ventricular tachycardia s/p 3 shocks.Dilan Kirk [...] a thirdICD shock around 1:30 AM.Work-up in [facility] was called.Chest x-ray showed stable nonspecific bilateral perihilar and bibasilarreticulonodular opacities.Blood work showed WBC 12.8, H&H 16.7/49.5, platelets 209, glucose 252,BUN/creatinine 23/1.23 sodium 140, potassium 3.5, magnesium 1.8. The case wasdiscussed with the credit director on-call. Patient was given metoprolol mg, metoprolol tartrate 5 mg IV, amiodarone 150 mg, and he was started onamiodarone drip. He transferred to [facility] for higher level of care.Dilan Kirk is trying to quit smoking. He presently smokes 1 to 2cigarettes a day. Previously smoked up to 2 packs/day for 30 years. He doesnot drink alcohol at all anymore. He is compliant with his medications.Lubrication Supervisor: Dr. 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 Behavior: Behavior normal.DiagnosticsLabs pendingAssessment & PlanThis is a pleasant 60-year-old male patient who had AICD insertion 12/15/[address] Magid for secondary prevention. He transferred tonight from [facility] with ventricular tachycardia s/p 3 AICD treat [...] additional timespent separate from the hospital visit.D/W ature: Mitchel Oleary, NPDate: February 21, 2021Time: 7:22 AMThis document or parts of this document, were dictated using Chrysallis software.A reasonable attempt at proofreading has been made to minimize errors. Pleasecall with any questions or corrections. Name Value Range Interpretation Code Description Data Morena rce(s) Supporting Document(s) ID Date Data Source [id number] 02/21/2021 06:09:50 PM EST [facility] NT INFORMATIONPatient MRN Name Date of Age Gend*PT [id number] Dilan Kirk 1960 60 years M IPPT Location Admission Date/Time Visit ID Attending [id number] 02/21/21 0548 --- Griselda Faith MD([id number]) EPI ID CSN Admitting Provider [id number] Quinn Andres MD([id number])INPATIENT EP CONSULT NOTEPatient Name: Dilan Kirk of : 1960 Age: 60 yearsGender: male Primary Physician: Dov Puentes of Referral: 02/21/2021 PCP [id number] PHYSICIAN: Leo Pruitt M.D.REQUESTING PHYSICIAN: CardiologyREASON FOR REFFERAL: ICD shockHISTORY OF PRESENT ILLNESS:Dilan Kirk is a 60 years male with medical problems of prior [place] spSJM ICD cared for by Dr Monte who presents with ICD shock.No recent sx of ischemia or worsening CHFThe EP service was consulted to consider ablationThe history was taken from the patient ,medical recordsFamily was not present during interview.PAST MEDICAL HISTORY:Past Medical History:Diagnosis Date Acute kidney injury Asthma Cardiomegaly COPD (chronic obstructive pulmonary disease) 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 Diabetes mellitus Fatty liver History of herniated intervertebral disc Hypertension [place] (myocardial infarction) Sinusitis Umbilical herniaPAST SURGICAL HISTORY:Past Surgical History:Procedure Laterality Date CARDIAC CATHETERIZATION N/A 12/15/2020 Procedure: Cardiac catheterization; Surgeon: Adam Mendoza MD; Laterality:N/A; EP STUDY Left 12/17/2020 Procedure: IMPLANT ICD single CHAMBER; Surgeon: Sulma Pruitt MD;Laterality: Left;MEDICATIONS:Scheduled Meds: aspirin EC 81 mg [...] normalPERTINENT LABS:Results from last 7 daysLab Units 244527MXKNMUBHVW g/dL 15.7HEMATOCRIT % 45.6PLATELETS 10*3/uL 178SODIUM mmol/L 140POTASSIUM mmol/L 3.7CHLORIDE mmol/L 107CO2 mmol/L 27BUN mg/dL 19CREATININE mg/dL 1.06GLUCOSE mg/dL 144*CALCIUM mg/dL 8.9DIAGNOSTIC DATA:I personally reviewedEKG: sinus rhythmTelemetry Monitoring:sinusEchocardiogram EF: 35%DEVICE INTERROGATION DATADevice: St Christiano medicalPacing mode: [id number] right ventricular: normal fashionThe patient is not [...] class II congestive heart failure8. Hyperlipidemia, hypertension9. Pssdmbf18. On hemodialysis for acute renal failure via right IJ vein PLAN:1. Medical therapy with amiodarone2. If meds fail then consider RFA3. VICK pt and Franklin Pruitt M.D., [facility], [facility]ENTERClinical Cardiac Wwxshwyttrzjjbunx09/15/2021 3:47 PM Name Value Range Interpretation Code Description Data Morena rce(s) Supporting Document(s) ID Date Data Source [id number] 02/21/2021 05:31:00 PM EST [facility] ([facility]) Name Value Range Interpretation Code Description Data Morena rce(s) Supporting Document(s) Natriuretic peptide.B prohormone N-Terminal [Mass/volu me] in Serum or Plasma 566 [facility] ([facility]) Troponin 0.05 [facility] ([facility]) Magnesium Level 2.0 [facility] ([facility]) ID Date Data Source [id number] 02/21/2021 04:03:50 PM EST [facility] [place] [facility] Name Value Range Interpretation Code Description Data Morena rce(s) Supporting Document(s) POC NOVA GLU 146 mg/dL (70-99) H [facility] [place] [facility] CLINICAL STAFF ID Date Data Source [id number] 02/21/2021 01:20:19 PM EST [facility] [place] [facility] Name Value Range Interpretation Code Description Data Morena rce(s) Supporting Document(s) POC NOVA GLU 152 mg/dL (70-99) H [facility] [place] [facility] CLINICAL STAFF ID Date Data Source [id number] 02/21/2021 12:37:56 PM EST [facility] Name Value Range Interpretation Code Description Data Morena rce(s) Supporting Document(s) &PDF [facility] EHNSCt8wCcBZWoHa97/TEVvgWGRtx2EzJFhgEEk6OJpiXMVdE3EzqAlfGCvGNxYMCX8FHA5GSDhDWIjW vQ3 [file] ICAgICAgICAgICAgICAgICAgICAgICAgICAgICAgICAgICAgICAgICAgICAgICAgICAgICAgICAgICAg ICAgICAgICAgICAgICAgICAgICAgICANCiAgICAgIC AgICAgICAgICAgICAgICAgICAgICAgICAgICAgICAgICAgICAgICAgICAgICAgICAgICAgICAgICAgIC AgICAgICAgICAgICAgICAgICAgICAgICAgICAgICAgICANCiAgICAgICAgICAgICAgICAgICAgICAgIC AgICAgICAgICAgICAgICAgICAgICAgICAgICAgICAg ICAgICAgICAgICAgICAgICAgICAgICAgICAgICAgICAgICAgICAgICAgICANCiAgICAgICAgICAgICAg ICAgICAgICAgICAgICAgICAgICAgICAgICAgICAgICAgICAgICAgICAgICAgICAgICAgICAgICAgICAg ICAgICAgICAgICAgICAgICAgICAgICAgICANCiAgIC AgICAgICAgICAgICAgICAgICAgICAgICAgICAgICAgICAgICAgICAgICAgICAgICAgICAgICAgICAgIC AgICAgICAgICAgICAgICAgICAgICAgICAgICAgICAgICAgICANCiAgICAgICAgICAgICAgICAgICAgIC AgICAgICAgICAgICAgICAgICAgICAgICAgICAgICAg ICAgICAgICAgICAgICAgICAgICAgICAgICAgICAgICAgICAgICAgICAgICAgICANCiAgICAgICAgICAg ICAgICAgICAgICAgICAgICAgICAgICAgICAgICAgICAgICAgICAgICAgICAgICAgICAgICAgICAgICAg ICAgICAgICAgICAgICAgICAgICAgICAgICAgICANCi AgICAgICAgICAgICAgICAgICAgICAgICAgICAgICAgICAgICAgICAgICAgICAgICAgICAgICAgICAgIC AgICAgICAgICAgICAgICAgICAgICAgICAgICAgICAgICAgICAgICANCiAgICAgICAgICAgICAgICAgIC AgICAgICAgICAgICAgICAgICAgICAgICAgICAgICAg ICAgICAgICAgICAgICAgICAgICAgICAgICAgICAgICAgICAgICAgICAgICAgICAgICANCiAgICAgICAg ICAgICAgICAgICAgICAgICAgICAgICAgICAgICAgICAgICAgICAgICAgICAgICAgICAgICAgICAgICAg ICAgICAgICAgICAgICAgICAgICAgICAgICAgICAgIC ANCjw/jJQpL8rzhBBfbaB6Z6muJx3ZOu5WQQ3gw4JfKGPlKYslzjZcFsmCNkHmBDNkVecSXqu1TNgjER 2HxRJaR4ToL9YaLIhdLZ1VJUBdQYGunHXlCFXtJXNvQbF8YEIcJKywFI2UcKPnTUaeMTTfDCAiDyRlHL IdZQ2SDHZbG136nmHlNu2ZKf4WSmBqIP2ggg8FWIAi MFXnPxiALup8JZsnTZ2AyVQdO8FilWVnm0qZFtWcP6WWFQD3ZSEpXl4XVFUzCvXoCSWuTCcmCY3dZBLl RGBAzQtuulF7AD5HXN0hmzJwLG4FArWrNc3sQp0XRcLoV3DjM2ImPYSlMOOLCSiuWS7BOWOoCGD7ZDUm AAScYTVHCaXpF41fQI6VS2Xgd06aMvP4JZOtMuRrBI jnHU21tLiocyIzkWOvwXeqVQ3HSw1+DNrukeGaXqtQAdrkQSOLAqDfTBVVJuYoKYPdFJFbGIBcVeU3Xq CoOq0GFVVxSVObDTDhMdNjNLOyLIIiMVlqLPSxNXztAOt2JAPgFLImWK5BYiLhYHNbYzN1ZrImWIMeBP Exsg3UFAAmQJHdNCF8VITaWMEaQNPbGVawVHRsYIHx YwvsQWIqTCEoRQ9JCnUxZBNtWMK0GeitTBTjFFSpzz2NCJQiCVIxISJ2IvUeKJFuYJIjIGvdLVWjTVU4 ODwxRALtQIOgKG7XYgQyMPJpGVC2XcdoCXCmHZCnhm8OPEEvNHNaFlokASFgAPAmNMZpYOlwAYXrJQW8 AFB3KJKsFPVbRE3IQmFiEIBwZYp3LaTrSSZpZJUdbp 8LVBUuXHRwOKH9UcXkXRSpWSDcEKwnCVTbORY1WxI6QZPvHOZoLS9QIhYpNACrCPMfIOAiKZBcLXCcvb 4MGBOuSVXaObZkDXLiNEAsRAVmMTxiGZGzCMTuKcCdCWJoZRHxRL6EVsOpPKDvYMS0NYPzNGYnISNpgh 7CFVNrFHIvDRIoAbAtADWcIUQkOSwpVHCmKTS3RKY2 IPEdQMTmTN0DDiYtLHBlJZMqBPOmLBKjZVIgwy9RENLvIHWvYZUyCcVsBFXzAPHpWHzeGUKiELHcKDJz OAUbGLKxIZ5FThNvMLHjSeN6QQdvLFQaSKCbfd4BNKHkTPTrATa9MIHsTTBaYSDoWLdaFFQkYGZ4RoO7 TNPdYPYhFY7DZkQkUMGtDmDsKHFuOUMbYQNeei0OXN FvHEYaYIQ5UDIbJSYzIWBtIRxjVYUcLXA9VOD4RPHoPACfSV9WRlMlJFEcUDHrBPWsITKiTKOagv5LHF NvHYF3YCFrEWZsTZAeLMKbULkcEUZfXSJ3ZUb6CMRaQRCtYT8LBqGmXKHgZPZ7JeHiZPBcWIWlqg2GLZ AtYCW1UQeoCEDpHCYgACHrYDoxYIRcWEE7RPGwBHFy PBZpFW3MVxCjBQEvFhFpUPQvKDIpBVEomz9LTXYwUSA5ZhouRUVmUDZbKEPzLTvhCZMaTCqeHAj0TCCg MSGeES1SUnNvVMUtJxSvBPQgYEUsIHGjfi9FKYZyKWY7QqOvLuSuEFMeCQVmVMo7eeNpiXPqERj9ZJ3L P1XlhaRzSQTARx2Mp336VSRrMZJvWi9NV7nnTv8vPA XcICRXWq8OCLp8HoisJCK2QgToZCHdWIHoDuQ3JAN7NIZcYnH2USW9YJJ+CWenP3XeHLEeNVQ1MCR6Q4 NzSddtQUF0TBZkNzThOKd0Cq7cHVZOUw7+PJciyATrwRooSMHBSvdgRLTzVHlyHIGRRj9R ID Date Data Source [id number] 02/21/2021 09:18:46 AM EST [facility] Name Value Range Interpretation Code Description Data Morena rce(s) Supporting Document(s) POC NOVA GLU 176 mg/dL (70-99) H [facility] [place] [facility] CLINICAL STAFF ID Date Data Source [id number] 02/21/2021 08:50:26 AM EST [facility] Name Value Range Interpretation Code Description Data Morena rce(s) Supporting Document(s) EKG [facility] RTVUVd4sDmPHLeQkm8TeYcUpJVDvFV1dpmi7V1P6nDUvU1HwhDXjb4nrM0KiO1IpRNLtSFFOWP0ZvWUg jb2 [file] [facility]+K+6eCHoo/i2BicHcmqn+7JExkFUHEE9hSHJqTc7RovXeihPycrDw05DKb5IrfYeb2r/FCEOB38 [file] RMJGQmIVMJmUvIZEJmEzKdkPmETChkRiFTCplTyKRC CcOpfUP4jOorUVPrWaqAQ5obByMKMu7O+YVMMGSGIVMMmWPIJENmGTLNkHmGTDRkpiFTDZlryGRDZhsy 6MK2cow4ETFxHp3Wj8sdF2DuQv9MuLqRVRQxUuU3dBw7+9VOnt9XaO5tQ/q6Kupg987gwLKM8SlaGD9Q TrRwJNy8LTCsxwyQKX4dtEZTwtYifWeO5DFBhwcrFF d65YaH2qlHTXIKX0j8baNOUqKB9k1oAO96ynyM76nabWskiW0jbkm7Bp5jhJLAwgOGeEXFHGZygpIQxZ tHKBYauyFanIGSJbLJzU1fWIUeC6LYjMVbyPElC2KXcMjwkINwW4KTxVjevUDwB6SToZ6ixMIxVTRVcH QYGtTzGIKJaMlK2CUnLtB0ULl5AjwrrZInK14gZYHW oWnC6LTdMpW8MGfNiL9H0tHhY4O1JCzRzH3PTlZjN2UGGdcLo/e/02dOlq8+393eECfMBDOFmcJMYaYw wbGnZQNxupJImqyFRQUmPffeFtJlBekyjYgXKFQvYsJP2ei4Wisne6fYdKCcRZK5+Rm93Ectrvhzx7ap xbvHgfclO8PlGiLDrLewC6OsPrFwiUxrN0goPsExwJ afZ0gkHwX21D8oFt1/xMheJvtFdi+nJT/aWcUdpOV8jvGeht9Kwn/OzZvpq1/OzjffPT/9dnN2+s30y/ MXL54//tEmjbAQ1QJtvmGWhAr8m47/M48EjlhI3ggK2d2Ttb2U0fO40ZtOiSWMYGrt8k5f0VEvE+AFx7 /rLH0ht700quhkK73W7100xyv86/cD2oK0Mq4X+dlP m+whQ5N2foNc00zMRBmkvGy9c0Y4b9R9jvPrz5Z6oUIq19oE6M837Ems655+fH/5Zvrbl+mvF3/+efHn B5Pt5tz6Y3Xii5ppBm/79lBnilz2jOlzAjsf3/c5I2V2h3c/5jZaXvbJl+YdbtQf7urY09ezvDCEWwYJ 5WSejoklZk26+/ng2vXA6YLw75FsPtj41ylkr4G7O1 z8+k/bT3q62cg94eyp2n7S04eF/7x491+Wv674/1p+F3ps7ESv95Srz62Pe/3RTuz5V82fwn13+S/r75 a4m/58agBi3sDxalpL+TLHoyVkq9/1wOw3yXJt5wBmX0eSQL8hDwPBRr2u/gxq3wloUdt95+CjQFc4Hc cdfv/01BBumX0q7gn+hXk19saX12/RKqcm8LVKvl52 +UI0nqx0A5i0d/djOP/w4f3xs+2APv6T4J/uBe0qD2x6qyj3W3DWs6tuGq///ert6+6ggbc5TJdw8h/1 6fO2NG+Qflr9fZoJ4xm7t1d5/STB2tJoj41jqpfJ/yoNsmgfbBI01Ro/QSsPQ7fkrh7+8D45tEruAnit u1P8wsac5yWFi32+SrqwwPam8GnbMvw1555R+g/Amor zfOaIzOEY4lyKdsVniwgRgBynIHhDsNTVuUal4HA7NzYDcZAIgT3N5UMMpyo2fGDDvXUElwQMeJvYdGW QISC6FuOOjYN7WDCi5ECQ5COMyTbVjFJShAG93EQAtHTHSCb3kghEhLnxWAaVyBF2cshe4T5V2wTDtO1 54bSyiawDpMC3Dx6MxqUYeDX5JpUIowOLhDJAbNCTp L9jjy7TvFbMsBPWKWi8cktHzNfhLHaHaPO7zkar7K4V4zHgfnoRzFVMIMTxaAmvpDV2ktVmkfcuwG3Lt nRRwZFEgM8KrQIUqr99PNEZnOQwJEfAzMnBwXJN5OQz2WHxaEoBsOGIxCXKrGOHpBM4SnLWkVNUjBRLR ISgdOwlpXJCmsP8noEEAi2PrX49UILbKRhqCO17aVG tCMNiCNW3dZKTuJdR0Zqi5HMAqF5JzumWegWVoSGQROOidClwjSPUbqG1sgUtfY1PmNYJ5f3DgFN1ED1 OdXZEdEITDIFL2q3TiVCKncgsnegaoHgHbRUOzVWEmHTKxFD0Yxe9aaCIlrgIqHBVNHGaeZlpgIS0jvK zzehudG5RtzTGbWEE+PxYkVQ5rpf6+CjEgMCBvYmo8 DCIoVZttKJLyHGZlMIXxE3zlXCZnJsVoAJInKvEmXOWoHHAoUGDfN498ynZzFj5+WM2qn4LgCgcsDFQB WCAiKJVwWJMhOAS8VmCvTJEpUHJeDYUrRaF9FvFvIiKBYRBvUDE7ORReWuIzCZMmOJWrWFayGOLpUDZ1 ABp2DDQdBJHiLN0sXzGpGBHgDXWuIVbsHCCbTOAllf WOQYQtRUOcTLNwROT3NNYtSXIzSJwiYZFiSZSjRPH1RGBvNKZySG3uOgGlTCWrBLWcJxpyWSRmHFAptc DBIIAbSFZvRGB8LnGiYABaTAOnVQhmCZExCHLfUcl7FJImPRMdVL5dCwTeEXQtRKQ8FRwkSXItRNMwbo AKMDAwMDAwMDUyMyAwMDAwMCBuIAowMDAwMDAwNjQx PFZmJKCwNR6wVcBnCCQbCEJ5NQFpNHVoTKQrqzIYQXQeFIXtCQs8XHDuRQKxKFIjMZpsWQRqONEzZAR2 QVPcESPjMO0yIbRlVBVyJMGuWUIlHJGaOTLfetSNXCVrFATtMHR3GRLnSCOuIHYoKLbxBZWzDJVoGyh7 KUEgTVPoZB0wLyJeSDPhOYW3JWEoGGXbJICzycJSRD TgCFW7ENA6AyUkQLYvKKAxEJlnKWCfTTTkLjI1EDWkFLVvJQ6aHoSkWFKhURT7DaGdAAYmONIexzADJY RhEXXuXVW0AqZfKRJmEDLmYQpzEXUnJNR0YFG7PVXhCLIdES3hGzEyCATdHQIlGQHyOCQzGTSsnsFZCO GfHWJ6FAWqTMVgANRyKGYfXRztCQLfOMYzBcM0YUVx ZAGhEH8wVlVcAKRiSCSbMOQyRcN9IvPcHsCIbNPxqUaeffw5FXplA4g9RVSlZMvfAM0dwlHnWWLkTqye Dh5lqEN7XRDwXbwOBw8Ac9VuuoB8isNrUoR0WNo2LjAcTH1S ID Date Data Source [id number] 02/21/2021 08:37:31 AM EST [address] [address] Name: DILAN KIRKDOB: 1960ex: MOrdering Provider: MITCHEL BROWNuthghulam Prov: MITCHEL Diegoferalysia Provider: Procedure Performed: / XR CHEST PORTABLEExam Date: 02/21/2021 08:32MRN: [id number] Number: [id number] Class: InpatientAccount #: [id number] for Exam: chest painTechnique: AP portable view obtained.Comparison: February 21, 2021Findings: The defibrillator is unchanged.The cardiac silhouette is prominent.No pneumothorax, pleural effusion, heart failure or pneumonia is appreciated.IMPRE SSION: Prominent cardiac silhouette.Report electronically signed by: REHANA BERGER On 02/21/2021 8:37 AMWorkstation ID: [id number] Name Value Range Interpretation Code Description Data Morena rce(s) Supporting Document(s) ID Date Data Source [id number] 02/21/2021 08:37:09 AM EST [facility] NT INFORMATIONPatient MRN Name Date of Age Gend*PT [id number] Dilan Kirk 1960 60 years M IPPT Location Admission Date/Time Visit ID Attending [id number] 02/21/21 0548 --- Griselda Faith MD([id number]) EPI ID CSN Admitting Provider [id number] Quinn Andres MD([id number])Cardiology ConsultName: Dilan Kirk Gender: maleDate of : [...] a 60 years male who [facility] emergencyroom last night after he was shocked [...] (chronic obstructive pulmonary disease) 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 Diabetes mellitus Fatty liver History of herniated intervertebral disc Hypertension [place] (myocardial infarction) Sinusitis Umbilical herniaPast Surgical History:Procedure Laterality Date CARDIAC CATHETERIZATION N/A 12/15/2020 Procedure: Cardiac catheterization; Surgeon: Adam Mendoza MD; Laterality:N/A; EP STUDY Left 12/17/2020 Procedure: IMPLANT ICD single CHAMBER; Surgeon: Sulma Pruitt MD;Laterality: Left;Family HistoryProblem Relation Age of Onset [...] artery disease Hypertension Defibrillator dischargeRecommendations:Patient presented to [place] emergency room and attending called me from [...] rce(s) Supporting Document(s) ID Date Data Source [id number] 02/26/2021 12:07:38 PM EST [facility] [place] [facility] SPECIMEN DESCRIPTION PERIPHERAL 2SPECIAL REQUESTS NONECULTURE RESULTS NO GROWTH 5 DAYSREPORT STATUS FINAL 02/26/2021 Name Value Range Interpretation Code Description Data Morena rce(s) Supporting Document(s) ID Date Data Source [id number] 02/26/2021 12:07:38 PM EST [facility] [place] [facility] SPECIMEN DESCRIPTION PERIPHERAL 1SPECIAL REQUESTS NONECULTURE RESULTS NO GROWTH 5 DAYSREPORT STATUS FINAL 02/26/2021 Name Value Range Interpretation Code Description Data Morena rce(s) Supporting Document(s) ID Date Data Source [id number] 02/21/2021 08:08:35 AM EST Lab [facility] Name Value Range Interpretation Code Description Data Morena rce(s) Supporting Document(s) TSH,ULTRASENSITIVE @ 1.587 mIU/L (0.360-4.170) [facility] [place] [facility] PERFORMED AT [address] [place] [address] [address] [place] [address] ID Date Data Source [id number] 02/21/2021 08:08:35 AM EST [facility] [place] [facility] Name Value Range Interpretation Code Description Data Morena rce(s) Supporting Document(s) NT PRO BNP 566 pg/mL (0-125) H Lab [facility] ID Date Data Source [id number] 02/21/2021 08:08:35 AM EST [facility] [place] [facility] Name Value Range Interpretation Code Description Data Morena rce(s) Supporting Document(s) TROPONIN I 0.05 ng/mL (<0.05) H Lab [facility] Less than 0.05: Myocardial injury unlike lyGreater than or equal to 0.05: Highly suggestive of myocardial injuryCorrelation with rise and/or fall ofserial troponins, clinical symptomsand ECG changes is necessary. ID Date Data Source [id number] 02/21/2021 08:08:35 AM EST [facility] [place] [facility] Name Value Range Interpretation Code Description Data Morena rce(s) Supporting Document(s) SODIUM 140 mmol/L (136-145) [facility] [place] [facility] POTASSIUM 3.7 mmol/L (3.6-5.2) [facility] [place] [facility] CHLORIDE 107 mmol/L (100-108) [facility] [place] [facility] CO2 27 mmol/L (22-31) [facility] [place] [facility] ANION GAP 6 mmol/L (7-16) L [facility] [place] [facility] UREA NITROGEN 19 mg/dL (7-24) [facility] [place] [facility] CREATININE 1.06 mg/dL (0.80-1.30) [facility] [place] [facility] BUN/CREAT RATIO 17.9 RATIO (10.0-20.0) [facility] GLUCOSE 144 mg/dL (70-99) H [facility] [place] [facility] CALCIUM 8.9 mg/dL (8.4-10.2) [facility] [place] [facility] TOTAL PROTEIN 7.4 g/dL (6.4-8.2) [facility] [place] [facility] ALBUMIN 3.5 g/dL (3.5-4.6) [facility] [place] [facility] GLOBULIN 3.9 g/dL (2.7-4.3) [facility] [place] [facility] ALB/GLOB RATIO 0.9 RATIO [facility] [place] [facility] ALKALINE PHOSPHATASE 60 U/L (45-117) [facility] BILIRUBIN,TOTAL 0.4 mg/dL (0.0-1.0) [facility] [place] [facility] PLEASE NOTE:Total bilirubin results may be falselyelevated in patients taking Eltrombopag. AST (SGOT) 19 U/L (11-39) [facility] [place] [facility] ALT (SGPT) 38 U/L (12-78) [facility] [place] [facility] GFR >60 ml/min/1.73m2 (>59) [facility] [place] [facility] GFR ( AMER) >60 ml/min/1.73m2 (>59) [facility] [place] [facility] GFR INTERPRETATION [facility] --NORMAL KIDNEY FUNCTION OR MILD DISEASE - GFR >OR= 60CHRONIC KIDNEY DISEASE - GFR 15 - 59RENAL FAILURE - GFR <15 Est. GFR calculation based on the MDRDstudy equation, which assumes a steadystate for creatinine. Est. GFR should notbe used for medication dosing. ID Date Data Source [id number] 02/21/2021 08:04:51 AM EST [facility] [place] [facility] Name Value Range Interpretation Code Description Data Morena rce(s) Supporting Document(s) MAGNESIUM 2.0 mg/dL (1.7-2.4) [facility] [place] [facility] ID Date Data Source [id number] 02/21/2021 07:56:32 AM EST [facility] [place] [facility] SPEC EXP DATE 02/24/2021ATI ENT ABO/Rh A POSITIVEANTIBODY SCREEN NEGATIVETESTING SITE PERFORMED AT [address] [place] [address] Name Value Range Interpretation Code Description Data Morena rce(s) Supporting Document(s) TYPE AND SCREEN [facility] [place] [facility] ID Date Data Source [id number] 02/21/2021 07:22:54 AM EST [facility] [place] [facility] Name Value Range Interpretation Code Description Data Morena rce(s) Supporting Document(s) APTT 25.9 s (22.0-34.3) [facility] [place] [facility] ID Date Data Source [id number] 02/21/2021 07:22:54 AM EST [facility] [place] [facility] Name Value Range Interpretation Code Description Data Morena rce(s) Supporting Document(s) PT 11.5 s (9.2-11.9) [facility] [place] [facility] INR 1.09 [facility] [place] [facility] SUGGESTED THERAPEUTIC RANGES USING INR F ORSTABILIZED ANTICOAGULATED PATIENTS:STANDARD DOSE THERAPY INR 2.0-3.0 DVT, PE, PREVENT DVT OR EMBOLISMHIGH DOSE THERAPY INR 2.5-3.5 PREVENT EMBOLISM FROM MECHANICAL HEART VALVE ID Date Data Source [id number] 02/21/2021 07:05:55 AM EST [facility] [place] [facility] Name Value Range Interpretation Code Description Data Morena rce(s) Supporting Document(s) WBC 10.8 10*3/uL (4.1-11.0) [facility] [place] [facility] RBC 4.82 10*6/uL (4.60-6.10) [facility] [place] [facility] HGB 15.7 g/dL (13.5-18.0) [facility] [place] [facility] HCT 45.6 % (41.0-53.0) [facility] [place] [facility] MCV 94.6 fL (80.0-95.0) [facility] [place] [facility] MCH 32.6 pg (27.0-32.0) H [facility] [place] [facility] MCHC 34.5 g/dL (32.0-36.0) [facility] [place] [facility] RDW 15.0 % (10.5-14.5) H [facility] [place] [facility] PLT 178 10*3/uL (150-450) [facility] [place] [facility] MPV 8.5 fL (7.1-10.7) [facility] [place] [facility] NEUT % 77.3 % (35.0-75.0) H [facility] [place] [facility] LYMPH % 15.5 % (16.0-52.0) L [facility] [place] [facility] MONO % 5.8 % (0.0-8.0) [facility] [place] [facility] EOS % 0.4 % (0.0-5.0) [facility] [place] [facility] BASO % 1.0 % (0.0-4.0) [facility] [place] [facility] NEUT # 8.4 10*3/uL (1.8-7.7) H [facility] [place] [facility] LYMPH # 1.7 10*3/uL (1.2-4.8) [facility] [place] [facility] MONO # 0.6 10*3/uL (0.0-0.8) [facility] [place] [facility] Eosinophils [#/volume] in Blood by Automated count 0.0 10*3/uL (0.0-0 .5) [facility] [place] [facility] BASO # 0.1 10*3/uL (0.0-0.2) [facility] [place] [facility] ID Date Data Source [id number] 02/21/2021 07:26:44 AM EST [facility] [place] [facility] Name Value Range Interpretation Code Description Data Morena rce(s) Supporting Document(s) COLOR [facility] [place] [facility] APPEARANCE [facility] [place] [facility] SPEC GRAV URINE 1.033 (1.003-1.030) H [facility] PH URINE 6.0 (5.0-7.5) [facility] [place] [facility] LEUK ESTERASE (NEG) [facility] [place] [facility] NITRITE URINE (NEG) [facility] [place] [facility] PROTEIN URINE (NEG) [facility] [place] [facility] GLUCOSE URINE 3+ (NEG) A [facility] [place] [facility] KETONE URINE (NEG) [facility] [place] [facility] [place] UROBILINOGEN 1.0 mg/dL (0-1.0) [facility] [place] [facility] [place] BILIRUBIN URINE (NEG) [facility] [place] [facility] BLOOD/HGB URINE (NEG) [facility] [place] [facility] ID Date Data Source [id number] 02/21/2021 07:08:36 AM EST [facility] [place] [facility] Name Value Range Interpretation Code Description Data Morena rce(s) Supporting Document(s) URN CULTURE HOLD [facility] [place] [facility] ID Date Data Source [id number] 02/21/2021 03:01:00 AM EST [facility] Name Value Range Interpretation Code Description Data Morena rce(s) Supporting Document(s) SARS coronavirus 2 RNA [Presence] in Res piratory specimen by VICKEY with probe detection NEGATIVE NYSDOH This lab was ordered by [facility] a nd reported by [facility]. ID Date Data Source [id number] 01/28/2021 10:38:00 AM EDT [facility] [place] Name Value Range Interpretation Code Description Data Morena rce(s) Supporting Document(s) Magnesium [Mass/volume] in Serum or Plasma 2.1 mg/dL 1.8-2.4 [facility] ([facility]) ID Date Data Source [id number] 01/28/2021 10:38:00 AM EDT [facility] Name Value Range Interpretation Code Description Data Morena rce(s) Supporting Document(s) Blood Urea Nitrogen 16 mg/dL 7-18 [facility] (Ca [facility]) Glucose, Fasting 141 mg/dL 70-100 [facility] ([facility] Sodium Level 137 meq/L 136-145 [facility] ([facility]) Glomerular Filtration Rate Laboratory test result [facility] ([facility]) <content>Units are mL/min/1.73 m2</content>
<content></content>
<content>Chronic Kidney Disease Staging per NKF:</content>
<content></content>
<content>Stage I & II GFR >=60 Normal to Mildly Decreased</content>
<content>Stage III GFR 30- 59 Moderately Decreased</content>
<content>Stage IV GFR 15-29 Severely Decreased</content>
<content>Stage V GFR <15 Very Little GFR Left</content>
<content>ESRD GFR <15 on RECOVERY UNIT OPERATOR</content>
<content></content> Creatinine For GFR 1.30 mg/dL 0.70-1.30 [facility] ([facility]) Chloride Level 100 meq/L 98-107 [facility] ([facility]) Potassium Serum 4.4 meq/L 3.5-5.1 [facility] ([facility]) Anion Gap 5 meq/L 8-16 [facility] ([facility]) Carbon Dioxide Level 32 meq/L 21-32 [facility] ([facility]) Calcium Level 9.9 mg/dL 8.5-10.1 [facility] ([facility]) Alkaline Phosphatase 64 U/L 45-117 [facility] ([facility]) Alt/SGPT 32 U/L 12-78 [facility] ([facility]) Ast/Sgot 21 U/L 7-37 [facility] ([facility]) Albumin 3.9 GM/DL 3.2-5.2 [facility] ([facility]) Bilirubin,Total 0.5 mg/dL 0.2-1.0 [facility] ([facility]) Total Protein 7.6 GM/DL 6.4-8.2 [facility] ([facility]) Albumin/Globulin Ratio 1.1 [facility] ([facility]) ID Date Data Source [id number] 01/28/2021 10:38:00 AM EDT [facility] ([facility] [place] Name Value Range Interpretation Code Description Data Morena rce(s) Supporting Document(s) Natriuretic peptide.B prohormone N-Terminal [Mass/volu me] in Serum or Plasma 762 pg/mL [facility] ([facility] [place]) ID Date Data Source [id number] 01/21/2021 01:39:10 PM EDT [facility] NT INFORMATIONPatient MRN Name Date of Age Gend*PT [id number] Dilan Kirk 1960 60 years M IPPT Location Admission Date/Time Visit ID Attending [id number] 12/13/20 1238 --- --- EPI ID CSN Admitting Provider [id number] Crystal Neal MD([id number]) [facility] DISCHARGE SUMMARYPatient Name: Dilan Kirk of : 1960 Age 60 yearsPrimary Physician: PCP PROVIDER REQUESTED PCP Phone: NoneAdmission Date: 12/13/2020 Discharge Date: 12/17/2020He will be discharged from [facility] to home.Discharge Diagnoses:Principal Problem: 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 male [...] persisting into today, promptinghim to go to [facility] for evaluation. There he was found to be in VT with"rate at 170". He was cardioverted x 1 at 200J with conversion to SR with STelevations in lead III and lateral ST depressions. He was loaded with ASA andplavix, heparin gtt was started and he was transferred to [facility] ER for Cardiologyevaluation. Noted to be in JOHN, Nephrology was consulted. Thought to besecondary to ATN. S/p urgent HD in ICU on 12/13 and HD again on 12/16 withimprovement in renal function. Maddie was pulled out prior to discharge.For acute hepatitis, Gastroenterology was consulted. Started on NAC protocolwith improvement.For sustained Vtach, Ca rdiology and EP [facility]. [facility] [...] rce(s) Supporting Document(s) ID Date Data Source [id number] 12/27/2020 08:12:00 AM EDT [facility] [place] Name Value Range Interpretation Code Description Data Morena rce(s) Supporting Document(s) Magnesium [Mass/volume] in Serum or Plasma 1.9 mg/dL 1.8-2.4 [facility] ([facility]) ID Date Data Source [id number] 12/27/2020 08:12:00 AM EDT [facility] [place] Name Value Range Interpretation Code Description Data Morena rce(s) Supporting Document(s) Glucose, Fasting 168 mg/dL 70-100 [facility] ([facility]) Blood Urea Nitrogen 25 mg/dL 7-18 [facility] ([facility]) Glomerular Filtration Rate Laboratory test result [facility] ([facility]) <content>Units are mL/min/1.73 m2</content>
<content></content>
<content>Chronic Kidney Disease Staging per NKF:</content>
<content></content>
<content>Stage I & II GFR >=60 Normal to Mildly Decreased</content>
<content>Stage III GFR 30- 59 Moderately Decreased</content>
<content>Stage IV GFR 15-29 Severely Decreased</content>
<content>Stage V GFR <15 Very Little GFR Left</content>
<content>ESRD GFR <15 on RECOVERY UNIT OPERATOR</content>
<content></content> Creatinine For GFR 1.26 mg/dL 0.70-1.30 [facility] ([facility]) Potassium Serum 4.5 meq/L 3.5-5.1 [facility] ([facility]) Sodium Level 137 meq/L 136-145 [facility] ([facility]) Anion Gap 8 meq/L 8-16 [facility] Carbon Dioxide Level 30 meq/L 21-32 [facility] ([facility]) Chloride Level 99 meq/L 98-107 [facility] ([facility]) Calcium Level 9.5 mg/dL 8.5-10.1 [facility] ([facility]) Alt/SGPT 116 U/L 12-78 [facility] ([facility]) Ast/Sgot 36 U/L 7-37 [facility] Bilirubin,Total 0.7 mg/dL 0.2-1.0 [facility] ([facility]) Total Protein 7.4 GM/DL 6.4-8.2 [facility] ([facility]) Alkaline Phosphatase 71 U/L 45-117 [facility] ([facility]) Albumin 3.7 GM/DL 3.2-5.2 [facility] ([facility]) Albumin/Globulin Ratio 1.0 [facility] ([facility]) ID Date Data Source [id number] 12/27/2020 08:12:00 AM EDT [facility] ([facility]) Name Value Range Interpretation Code Description Data Morena rce(s) Supporting Document(s) Natriuretic peptide.B prohormone N-Terminal [Mass/volu me] in Serum or Plasma 1141 pg/mL [facility] ([facility] [place]) ID Date Data Source [id number] 12/17/2020 06:57:27 PM EDT [address] [address]Elpoesb Name: DILAN KIRKDOB: 1960ex: MOrdering Provider: Sulma Cristobal Prov: Sulma PRUITTRefruth ann Provider: Procedure Performed: / XR CHEST PORTABLEExam Date: 12/17/2020 18:56MRN: [id number] Number: [id number] Class: InpatientAccount #: [id number] for Exam: icdTechnique: AP portable view obtained.Comparison: December 13, 2020Findings: ICD lead is projected over the right ventricle. There is moderate cardiac megaly. No adenopathy is revealed. No pneumothorax demonstrated. No pleural effusion is demonstrated. Lungs are hypoinflated but clear.IMPRESSION: Cardiomegaly. No pneumothorax.Report electronically signed by: HAILEE CHARLES On 12/17/2020 6:57 PMWorkstation ID: [id number] Name Value Range Interpretation Code Description Data Morena rce(s) Supporting Document(s) ID Date Data Source [id number] 12/17/2020 06:54:08 PM EDT [facility] [place] [facility] [place] Name Value Range Interpretation Code Description Data Morena rce(s) Supporting Document(s) POC NOVA GLU 112 mg/dL (70-99) H [facility] [place] [facility] [place] PERFORMED BY [facility] CLINICAL STAFF ID Date Data Source [id number] 12/17/2020 05:58:49 PM EDT [facility] Name Value Range Interpretation Code Description Data Morena rce(s) Supporting Document(s) &PDF [facility] [id number] Dcm [file] [id number]= ID Date Data Source [id number] 12/17/2020 11:50:01 AM EDT [facility] [place] [facility] [place] Name Value Range Interpretation Code Description Data Morena rce(s) Supporting Document(s) POC NOVA GLU 193 mg/dL (70-99) H [facility] [place] [facility] [place] PERFORMED BY [facility] CLINICAL STAFF ID Date Data Source [id number] 12/17/2020 09:15:22 AM EDT [facility] [place] [facility] [place] Name Value Range Interpretation Code Description Data Morena rce(s) Supporting Document(s) POC NOVA GLU 149 mg/dL (70-99) H [facility] [place] [facility] [place] [facility] CLINICAL STAFF ID Date Data Source [id number] 12/17/2020 10:43:50 AM EDT [facility] [place] [facility] [place] Name Value Range Interpretation Code Description Data Morena rce(s) Supporting Document(s) APTT 60.9 s (22.0-34.3) H [facility] [place] [facility] [place] ID Date Data Source [id number] 12/17/2020 01:55:46 AM EDT [facility] [place] [facility] [place] Name Value Range Interpretation Code Description Data Morena rce(s) Supporting Document(s) APTT 73.2 s (22.0-34.3) H [facility] [place] [facility] [place] ID Date Data Source [id number] 12/16/2020 05:57:46 PM EDT [facility] [place] [facility] [place] Name Value Range Interpretation Code Description Data Morena rce(s) Supporting Document(s) POC NOVA GLU 104 mg/dL (70-99) H [facility] [place] [facility] [place] [facility] CLINICAL STAFF ID Date Data Source [id number] 12/16/2020 05:43:04 PM EDT [facility] [place] [facility] [place] Name Value Range Interpretation Code Description Data Morena rce(s) Supporting Document(s) APTT 56.3 s (22.0-34.3) H [facility] [place] [facility] [place] ID Date Data Source [id number] 12/16/2020 12:34:46 PM EDT [facility] NT INFORMATIONPatient MRN Name Date of Age Gend*PT [id number] Dilan Kirk 1960 60 years M IPPT Location Admission Date/Time Visit ID Attending [id number] 12/13/20 2638 --- Crystal Neal MD([id number]) EPI ID CSN Admitting Provider [id number] Crystal Neal MD([id number]) Attestation signed by Crystal Neal MD at 12/16/2020 12:34 PMPatient seen and examined independently on 12/13, I discussed management and Iagree with plan outlined by Griselda Roy. Plan for emergent dialysis.Signature: CLARKE Harrisonate: December 16, 2020Time: 12:34 PM Inpatient History & PhysicalWilldebi KirkMRN:[id number] from [facility]: VT s/p cardioversion, elevated troponinHPI: 60 years-old male with pmhx significant for CAD with ICM (EF 40%), DM2, HTNpresents 12/13/20 to [facility] as a transfer from [facility]. He was c/o dizzinesssince Sunday - states he drank too much at a field day with persistentdizziness and paraesthesias in his extremities -- arrived to [facility] ED, foundto be in VT requiring cardioversion x 1 (200 J). He states his paraesthesias anddizziness resolved -- Post cardioversion EKG SR with ST elevations to lead III,lateral depressions. He was loaded with aspirin/plavix and started on heparindrip and transferred to [facility].Troponin 3.36, NTpro BNP >33kPOC BMP abnormal: [...] chronically occluded RCA with Lto R collaterals, Lubrication Supervisor: Dr. Wright ([place]). Spoke to Dr. Erickson(cardiology) for consult, will also consult nephrology.Assessment and Plan:Principal Problem: Coronary artery disease involving georgetown coronary artery of ge[place] heart withunstable angina pectorisActive Problems: VT (ventricular tachycardia) COPD (chronic obstructive pulmonary disease) DM2 (diabetes mellitus, type 2) HTN (hypertension) Tobacco use Elevated troponin JOHN (acute kidney injury) Elevated LFTsVT, elevated troponin, Hx of single vessel CAD (RCA), s/p cardioversion,currently SR with occasional PVC- continue aspirin/plavix- continue heparin drip- cardiology consult is pending- r/o [id number], denies any previous history of renal problems, [...] 2- check A1c- serum glucose 150 (from [facility])- home meds: metformin, Steglatro- monitor BG, start [...] Take 10 mg by mouth daily Yes HistoricalProvider, bisoprolol (ZEBETA) 5 MG tablet Take 5 mg by mouth daily Yes HistoricalProvider, Ertugliflozin L-PyroglutamicAc (S teglatro) 15 MG TABS Take by mouth YesHistorical Provider, Ivyontelukast (SINGULAIR) 10 MG tablet Take 10 mg by mouth nightly YesHistorical Provider, MDalbuterol (PROVENTIL HFA;VENTOLIN HFA) 108 (90 BASE) MCG/ACT [...] Diagnostics:Diagnostic tests reviewed: discussed in HPISignature: Griselda Roy NPDate: December 13, 2020Time: 1:50 [id number] Name Value Range Interpretation Code Description Data Morena rce(s) Supporting Document(s) ID Date Data Source [id number] 12/16/2020 12:04:32 PM EDT [facility] [place] [facility] [place] Name Value Range Interpretation Code Description Data Morena rce(s) Supporting Document(s) POC NOVA GLU 115 mg/dL (70-99) H [facility] [place] [facility] [place] PERFORMED BY [facility] CLINICAL STAFF ID Date Data Source [id number] 12/16/2020 11:09:20 AM EDT [facility] [place] [facility] [place] Name Value Range Interpretation Code Description Data Morena rce(s) Supporting Document(s) PHOSPHORUS 1.6 mg/dL (2.5-4.5) L [facility] [place] [facility] [place] ID Date Data Source [id number] 12/16/2020 11:09:20 AM EDT [facility] [place] [facility] Name Value Range Interpretation Code Description Data Morena rce(s) Supporting Document(s) SODIUM 136 mmol/L (136-145) [facility] [place] [facility] POTASSIUM 3.6 mmol/L (3.6-5.2) [facility] [place] [facility] CHLORIDE 100 mmol/L (100-108) [facility] [place] [facility] CO2 31 mmol/L (22-31) [facility] [place] [facility] ANION GAP 5 mmol/L (7-16) L [facility] [place] [facility] UREA NITROGEN 22 mg/dL (7-24) [facility] [place] [facility] CREATININE 1.00 mg/dL (0.80-1.30) [facility] [place] [facility] BUN/CREAT RATIO 22.0 RATIO (10.0-20.0) [facility] [place] [facility] [place] GLUCOSE 125 mg/dL (70-99) H [facility] [place] [facility] [place] CALCIUM 8.2 mg/dL (8.4-10.2) L [facility] [place] [facility] [place] GFR >60 ml/min/1.73m2 (>59) [facility] [place] [facility] GFR ( AMER) >60 ml/min/1.73m2 (>59) [facility] [place] [facility] GFR INTERPRETATION [facility] --NORMAL KIDNEY FUNCTION OR MILD DISEASE - GFR >OR= 60CHRONIC KIDNEY DISEASE - GFR 15 - 59RENAL FAILURE - GFR <15 Est. GFR calculation based on the MDRDstudy equation, which assumes a steadystate for creatinine. Est. GFR should notbe used for medication dosing. ID Date Data Source [id number] 12/16/2020 10:51:49 AM EDT [facility] [place] [facility] Name Value Range Interpretation Code Description Data Morena rce(s) Supporting Document(s) WBC 10.1 10*3/uL (4.1-11.0) [facility] [place] [facility] RBC 4.59 10*6/uL (4.60-6.10) L [facility] [place] [facility] HGB 15.2 g/dL (13.5-18.0) [facility] [place] [facility] HCT 43.4 % (41.0-53.0) [facility] [place] [facility] MCV 94.4 fL (80.0-95.0) [facility] [place] [facility] MCH 33.0 pg (27.0-32.0) H [facility] [place] [facility] MCHC 35.0 g/dL (32.0-36.0) [facility] [place] [facility] RDW 14.7 % (10.5-14.5) H [facility] [place] [facility] [place] PLT 130 10*3/uL (150-450) L [facility] [place] [facility] [place] MPV 8.8 fL (7.1-10.7) [facility] [place] [facility] ID Date Data Source [id number] 12/16/2020 11:07:19 AM EDT [facility] [place] [facility] [place] Name Value Range Interpretation Code Description Data Morena rce(s) Supporting Document(s) APTT 56.6 s (22.0-34.3) H [facility] [place] [facility] [place] ID Date Data Source [id number] 12/15/2020 11:02:30 PM EDT [facility] [place] [facility] [place] Name Value Range Interpretation Code Description Data Morena rce(s) Supporting Document(s) APTT 61.8 s (22.0-34.3) H [facility] [place] [facility] [place] ID Date Data Source [id number] 12/15/2020 06:29:11 PM EDT [facility] [place] [facility] [place] Name Value Range Interpretation Code Description Data Morena rce(s) Supporting Document(s) POC NOVA GLU 167 mg/dL (70-99) H [facility] [place] [facility] [place] [facility] CLINICAL STAFF ID Date Data Source [id number] 12/15/2020 05:45:14 PM EDT [facility] Name Value Range Interpretation Code Description Data Mornea rce(s) Supporting Document(s) &PDF [facility] HNRSMf5tNtNBDzUh15/AMIlrTAFwc8UxREkeOHj2KTquHAOzB4SuwZniCYqQGzEGBF2PBK0RDPlBBKcO yZW [file] ICAgICAgICAgICAgICAgICAgICAgICAgICAgICAgIC AgICAgICAgICAgICAgICAgICAgICAgICAgICAgICAgICAgICAgICAgICAgICAgDQogICAgICAgICAgIC AgICAgICAgICAgICAgICAgICAgICAgICAgICAgICAgICAgICAgICAgICAgICAgICAgICAgICAgICAgIC AgICAgICAgICAgICAgICAgICAgICAgICAgICAgDQog ICAgICAgICAgICAgICAgICAgICAgICAgICAgICAgICAgICAgICAgICAgICAgICAgICAgICAgICAgICAg ICAgICAgICAgICAgICAgICAgICAgICAgICAgICAgICAgICAgICAgDQogICAgICAgICAgICAgICAgICAg ICAgICAgICAgICAgICAgICAgICAgICAgICAgICAgIC AgICAgICAgICAgICAgICAgICAgICAgICAgICAgICAgICAgICAgICAgICAgICAgICAgDQogICAgICAgIC AgICAgICAgICAgICAgICAgICAgICAgICAgICAgICAgICAgICAgICAgICAgICAgICAgICAgICAgICAgIC AgICAgICAgICAgICAgICAgICAgICAgICAgICAgICAg DQogICAgICAgICAgICAgICAgICAgICAgICAgICAgICAgICAgICAgICAgICAgICAgICAgICAgICAgICAg ICAgICAgICAgICAgICAgICAgICAgICAgICAgICAgICAgICAgICAgICAgDQogICAgICAgICAgICAgICAg ICAgICAgICAgICAgICAgICAgICAgICAgICAgICAgIC AgICAgICAgICAgICAgICAgICAgICAgICAgICAgICAgICAgICAgICAgICAgICAgICAgICAgDQogICAgIC AgICAgICAgICAgICAgICAgICAgICAgICAgICAgICAgICAgICAgICAgICAgICAgICAgICAgICAgICAgIC AgICAgICAgICAgICAgICAgICAgICAgICAgICAgICAg ICAgDQogICAgICAgICAgICAgICAgICAgICAgICAgICAgICAgICAgICAgICAgICAgICAgICAgICAgICAg ICAgICAgICAgICAgICAgICAgICAgICAgICAgICAgICAgICAgICAgICAgICAgDQogICAgICAgICAgICAg ICAgICAgICAgICAgICAgICAgICAgICAgICAgICAgIC AsOKIpDOBjYFDzDBBmVZHiOEGtSXSxMCKaHNSuNCHnCEVfLZOfIWQhVFXsZZSzYNGtINMbDNXgLLw4S4 zkQTWpLVAyZQ7rNAf7Fy6+MCfQNwZcBHN5luKlkN4FJO3lz1PlCYhzDGUqb0JvGYn3SU6FUNPbXLqoLS 0VXXhdcj4POCAvJDRpuGNSw2llEnPfTZS9LKDgWkdw QR0WOXQwO0hzqgArHLBrJHAYKUgbRWVVXVpjAUVIHIOmTGBwMxMbXWdzWB7Qs7JibXE7THq+Zj1MOI3b j5OcQBpkXrVsPA0tbx1VFVaZUkXpO6EbhfG8FDA3VQZwDh9PUDZrKTCowMXtGQDxLTRVRcXsB0XmlV91 IDENCj4+VBibnmZaUqhCLcH7FFBua0TcFCk8TP4RXB FhLKh8eGNhDG2gzSVlwNFiDQxrSN7OMSC3DNceZeCmIIQwH7aDAnGjPIjmVHXqsSzgEC1LMzWzU6Gydg VudCAzMyAwIFINCj4+VOktgmRsGyiLKqX5WMJen7UiIVk7VQ4HSJRjLLfpWE3SHFHtcQ1gPAphTH5XOn AvWOUjDIWQBqJiO02pyKYmNMj3F8HkYyPmQPKkFkvm ZXMgPDwvTmFtZXMgWyBdDQogID4+ID4+GOesZQ8FACkpppYnZNDpUs1CNSNiNNLtOL1sCOCbQXPxI8J0 aVrcSQPGLbScN9mebogwXV7nHIZcR260jQcjbmGnZPHiZQNeKw7FQBWbHHU7HSRekLPiXlAlLLNJNYag GH4UbPGhAOB4vU2wKEbcKQNvWAVsE0hCTzRueRcvGO 51bGwgbnVsbCBdDQo+Lk6DPG3jj7BmSPc0baTmBEdmIYT6IFqeMJGdJQPfJQTsKLZ1TGK1AKTZSeAfAR BtWUZpWQnhIUEpMXHyfo4XWJCuVEH0GIFbWQFyBEJlSWLzQFhyHEHeYCxwFROiQXKtTNTyWZ9GGuIzTE PlBHIqWZvhJPWoBNVgds8SDBJsVOLkQzT4GhAjTALe SRHrEMzdZYGvDUJaJSWoPXPeKBPfLV9DBbKjIUMaMWP0GNMiAHCtCCAolj7GJYWaOSCvPYrqKQAyDXDh CUMlWGxoDAHwQTW4QvFwWGWeJKVoCU5LDvEfLGExXQQ0QmQwEKQkXFVtxl4YBTNeTHGqFhRbCbSfOWXw GRHkLYtwRBAtENA6WdI4OVLrLGLvVS5EIsBeHSJwTJ v8WPhnWYGmHYBltc9FMJZvDPPhFEm0QIDhCDQvZCEfVFojMFGoIBW5ZPI0YMRnIHSuPO6DPdIuOLZwAO z0BdnkPBFzHNMahv8TBPLjGLYoLUEwCYSsZPXvHKMjWYzrRTZwOQMxVdL3ZLWrMOJuWW8AViDyENOsWW FnPxZzHHPiYDQmte1UBNPpHZYqLRV0CDKwKECfTCXu OOfsXRKbEMW3ZzAsHIRzULMoNZ8SFvNjWITxNFG4UFViQIShLZYmid7BLPAuYIMbJcZ5JNHjHELcTFYj OWypQJRjURInULc1RTAwPTXbIT6UKyWiDTSnQsX5NnZnASFaLTMyky8NTJTxAXKqOoViGXFtMMWuBKRu ACdpRZZeGSC5ZnY5TEBvOCSiER8LGoBhSHGrXIr5Fd ydXUPrCRVduq4ZOJYkHQW8GmR2BZKdBUKjVUDdBEhsMXBbIRAgFBY0ZWAgABWnQC1HDmFeNIFdUsLkEI AoQFIiNAAqbf6DINAbTAO4SByqGjPvYMUqICIrWXveRKHiKJedOFv9BONgODLtKL7DUmNdSGNtOvDzSF VxRCCgHMOhpu0GQJXcFPF4NnE1QGMqPYLdNCSbFMs6 whKwfALqSRd6RW7HD1YvjkSpIxKNEm2Vm422EKF2AOPiGw5JN2tuKy6jUXMdSGGSOy1TOJl1H1ArAUJ5 L9SvAbJ0LUJgTVwzAFecZeOpXOOxTYwjJBQ+CEaoUTY5KBx0XmOtGJG1WvNuEWT6V6RqZABaVfSeTSPt EQ7mOGALDn9+DRsmvEOnmAtgUSKVDxyyDVpxHRpeDNYQPi9X ID Date Data Source [id number] 12/15/2020 01:37:03 PM EDT [facility] [place] [facility] Name Value Range Interpretation Code Description Data Morena rce(s) Supporting Document(s) POC NOVA GLU 116 mg/dL (70-99) H [facility] [place] [facility] [place] [facility] CLINICAL STAFF ID Date Data Source [id number] 12/15/2020 10:28:49 AM EDT [facility] NT INFORMATIONPatient MRN Name Date of Age Gend*PT [id number] Dilan Kirk 1960 60 years M IPPT Location Admission Date/Time Visit ID Attending ProviderHEMODIALYSIS 12/13/20 1238 --- Crystal Neal MD([id number]) EPI ID CSN Admitting Provider [id number] Crystal Neal MD([id number])INPATIENT EP CONSULT NOTEPatient Name: Dilan Kirk of : 1960 Age: 60 yearsGender: male Primary Physician: PCP PROVIDER REQUESTEDDate of Referral: 12/15/2020 PCP Phone: NoneCONSULTING PHYSICIAN: Leo Pruitt M.D.REQUESTING PHYSICIAN: Grace FOR REFFERAL: Sustained VTHISTORY OF PRESENT ILLNESS:Dilan Kirk is a 60 years male with medical problems of coronaryartery disease, hypertension, smoking, hyperlipidemia cared for by Dr Bravo who presents with sustained mm VT. He was cardioverted with 200 J tosinus rhythmHe is a transfer from [facility].He is known to have chronically occluded RCA and prior inferior wall myocardialinfarction.He had a left heart cath in 2005 at [facility] chronic RCA occlusion goprzste-vw-rlwdc collaterals. No significant other disease. Repeat cath [...] surgery , heart attack, stroke, oreven .Leo Pruitt M.D., [facility], RSClinical Cardiac Electrophysiology12/15/2020 8:57 AM Name Value Range Interpretation Code Description Data Morena rce(s) Supporting Document(s) ID Date Data Source [id number] 12/15/2020 08:50:28 AM EDT [facility] [place] [facility] [facility] Name Value Range Interpretation Code Description Data Morena pipere(s) Supporting Document(s) POC NOVA GLU 107 mg/dL (70-99) H [facility] [place] [facility] [place] PERFORMED BY [facility] CLINICAL STAFF ID Date Data Source [id number] 12/15/2020 08:46:34 AM EDT [facility] NT INFORMATIONPatient MRN Name Date of Age Gend*PT [id number] Reagan, Dilan Sulma 1960 60 years M IPPT Location Admission Date/Time Visit ID Attending ProviderHEMODIALYSIS 12/13/20 1238 --- Crystal Neal MD([id number]) EPI ID CSN Admitting Provider [id number] Crystal Nael MD([id number])CARDIOLOGY CONSULTATIONName: Dilan Kirk Gender: maleDate of : 1960 Age: 60 yearsDate/Time of Admit: 12/13/2020 12:38 PM Code Status: Full CodePrimary Care Provider / Referring Physician: PCP PROVIDER REQUESTEDInformant:HISTORYCHIEF COMPLAINT: No chief complaint on file.HPI:This patient is a 60 years male who was transferred here from [place] [address] after complaining of dizziness and going to [...] not clear, given the presenceof a known MASSAGE THERAPY INSTRUCTOR of the right coronary2. Sustained monomorphic VT3. [...] rce(s) Supporting Document(s) ID Date Data Source [id number] 12/15/2020 09:19:32 AM EDT [facility] Name Value Range Interpretation Code Description Data Morena rce(s) Supporting Document(s) PHOSPHORUS 2.2 mg/dL (2.5-4.5) L [facility] ID Date Data Source [id number] 12/15/2020 09:19:32 AM EDT [facility] Name Value Range Interpretation Code Description Data Morena rce(s) Supporting Document(s) SODIUM 135 mmol/L (136-145) L Lab [facility] POTASSIUM 3.5 mmol/L (3.6-5.2) L [facility] CHLORIDE 100 mmol/L (100-108) [facility] CO2 27 mmol/L (22-31) [facility] ANION GAP 8 mmol/L (7-16) [facility] UREA NITROGEN 38 mg/dL (7-24) H [facility] CREATININE 1.38 mg/dL (0.80-1.30) H [facility] BUN/CREAT RATIO 27.5 RATIO (10.0-20.0) [facility] GLUCOSE 117 mg/dL (70-99) H [facility] CALCIUM 8.4 mg/dL (8.4-10.2) [facility] GFR 53 ml/min/1.73m2 (>59) L [facility] GFR ( AMER) >60 ml/min/1.73m2 (>59) [facility] GFR INTERPRETATION [facility] --NORMAL KIDNEY FUNCTION OR MILD DISEASE - GFR >OR= 60CHRONIC KIDNEY DISEASE - GFR 15 - 59RENAL FAILURE - GFR <15 Est. GFR calculation based on the MDRDstudy equation, which assumes a steadystate for creatinine. Est. GFR should notbe used for medication dosing. ID Date Data Source [id number] 12/15/2020 09:03:38 AM EDT [facility] Name Value Range Interpretation Code Description Data Morena rce(s) Supporting Document(s) WBC 9.1 10*3/uL (4.1-11.0) [facility] RBC 4.70 10*6/uL (4.60-6.10) [facility] HGB 15.3 g/dL (13.5-18.0) [facility] HCT 44.2 % (41.0-53.0) [facility] MCV 94.0 fL (80.0-95.0) [facility] MCH 32.5 pg (27.0-32.0) H [facility] MCHC 34.5 g/dL (32.0-36.0) [facility] RDW 14.3 % (10.5-14.5) [facility] PLT 111 10*3/uL (150-450) L [facility] MPV 9.1 fL (7.1-10.7) [facility] ID Date Data Source [id number] 12/15/2020 09:10:42 AM EDT [facility] Name Value Range Interpretation Code Description Data Morena rce(s) Supporting Document(s) APTT 134.6 s (22.0-34.3) H [facility] ALERTED CRITICAL RESULT NADIA (3563) IN [facility] AT 0908 ON 12/15/20 [place] [address] ID Date Data Source [id number] 12/15/2020 08:23:57 AM EDT [facility] Name Value Range Interpretation Code Description Data Morena rce(s) Supporting Document(s) WBC 8.0 10*3/uL (4.1-11.0) [facility] RBC 4.77 10*6/uL (4.60-6.10) [facility] HGB 15.5 g/dL (13.5-18.0) [facility] HCT 44.7 % (41.0-53.0) [facility] MCV 93.8 fL (80.0-95.0) [facility] MCH 32.5 pg (27.0-32.0) H [facility] MCHC 34.7 g/dL (32.0-36.0) [facility] RDW 14.3 % (10.5-14.5) [facility] PLT 95 10*3/uL (150-450) L [facility] MPV 9.2 fL (7.1-10.7) [facility] ID Date Data Source [id number] 12/15/2020 08:17:35 AM EDT [facility] Name Value Range Interpretation Code Description Data Morena rce(s) Supporting Document(s) BILIRUBIN,UNCONJ. 0.5 mg/dL (0.0-0.7) [facility] ID Date Data Source [id number] 12/15/2020 08:17:25 AM EDT [facility] Name Value Range Interpretation Code Description Data Morena rce(s) Supporting Document(s) MAGNESIUM 1.8 mg/dL (1.7-2.4) [facility] ID Date Data Source [id number] 12/15/2020 08:17:25 AM EDT [facility] Name Value Range Interpretation Code Description Data Morena rce(s) Supporting Document(s) SODIUM 135 mmol/L (136-145) L [facility] POTASSIUM 3.4 mmol/L (3.6-5.2) L [facility] CHLORIDE 102 mmol/L (100-108) [facility] CO2 26 mmol/L (22-31) [facility] ANION GAP 7 mmol/L (7-16) [facility] UREA NITROGEN 40 mg/dL (7-24) H [facility] CREATININE 1.41 mg/dL (0.80-1.30) H [facility] BUN/CREAT RATIO 28.4 RATIO (10.0-20.0) [facility] GLUCOSE 94 mg/dL (70-99) [facility] CALCIUM 8.4 mg/dL (8.4-10.2) [facility] TOTAL PROTEIN 6.3 g/dL (6.4-8.2) L [facility] ALBUMIN 3.1 g/dL (3.5-4.6) L [facility] GLOBULIN 3.2 g/dL (2.7-4.3) [facility] ALB/GLOB RATIO 1.0 RATIO [facility] ALKALINE PHOSPHATASE 50 U/L (45-117) [facility] BILIRUBIN,TOTAL 0.7 mg/dL (0.0-1.0) [facility] PLEASE NOTE:Total bilirubin results may be falselyelevated in patients taking Eltrombopag. AST (SGOT) 969 U/L (11-39) H [facility] ALT (SGPT) 3334 U/L (12-78) H [facility] GFR 51 ml/min/1.73m2 (>59) L [facility] GFR ( AMER) >60 ml/min/1.73m2 (>59) [facility] GFR INTERPRETATION [facility] --NORMAL KIDNEY FUNCTION OR MILD DISEASE - GFR >OR= 60CHRONIC KIDNEY DISEASE - GFR 15 - 59RENAL FAILURE - GFR <15 Est. GFR calculation based on the MDRDstudy equation, which assumes a steadystate for creatinine. Est. GFR should notbe used for medication dosing. ID Date Data Source [id number] 12/15/2020 08:17:25 AM EDT [facility] Name Value Range Interpretation Code Description Data Morena rce(s) Supporting Document(s) BILIRUBIN,CONJUGATED 0.2 mg/dL (0.0-0.3) [facility] ID Date Data Source [id number] 12/14/2020 08:12:03 PM EDT [facility] Name Value Range Interpretation Code Description Data Morena rce(s) Supporting Document(s) APTT 16.2 s (22.0-34.3) L [facility] PERFORMED BY ALTERNATE METHOD. REFERENCE RANGE = 24.7 - 33.3 ID Date Data Source [id number] 12/14/2020 04:54:41 PM EDT [facility] Name Value Range Interpretation Code Description Data Morena rce(s) Supporting Document(s) POC NOVA GLU 175 mg/dL (70-99) H [facility] PERFORMED BY [facility] CLINICAL STAFF ID Date Data Source [id number] 12/14/2020 12:31:36 PM EDT [facility] Name Value Range Interpretation Code Description Data Morena rce(s) Supporting Document(s) POC NOVA GLU 105 mg/dL (70-99) H [facility] PERFORMED BY [facility] CLINICAL STAFF ID Date Data Source [id number] 12/14/2020 09:18:33 AM EDT [facility] Name Value Range Interpretation Code Description Data Morena rce(s) Supporting Document(s) POC NOVA GLU 153 mg/dL (70-99) H [facility] PERFORMED BY [facility] CLINICAL STAFF ID Date Data Source [id number] 12/14/2020 08:58:22 AM EDT [facility] Name Value Range Interpretation Code Description Data Morena rce(s) Supporting Document(s) &PDF [facility] QIARPb5kVbINHmHa79/PJKjnLSSfi7OrGDvmQDk4PJzgAUJlU0TkjFuxHUeOYkDFQS1YQO4KIBdTSUjC yZW [file] dqN7noKQbvPZF2F33X9p4w35283l777bC4aNmejfIW 53HAJfXKeFuqYGDmUHsTriCHusGnkvwoY6ILmFKAA6ito2zpM9wk/advertising operations manager/scCDZSNn5oocDui8E24+18K [file] AgICAgICAgICAgICAgICAgICAgICAgICAgICAgICAg ICAgICAgICAgICAgICAgICAgICAgICAgICAgICAgICAgICAgICAgICAgICAgICAgICAgICAgICAgICAg ICAgDQogICAgICAgICAgICAgICAgICAgICAgICAgICAgICAgICAgICAgICAgICAgICAgICAgICAgICAg ICAgICAgICAgICAgICAgICAgICAgICAgICAgICAgIC AgICAgICAgICAgICAgDQogICAgICAgICAgICAgICAgICAgICAgICAgICAgICAgICAgICAgICAgICAgIC AgICAgICAgICAgICAgICAgICAgICAgICAgICAgICAgICAgICAgICAgICAgICAgICAgICAgICAgDQogIC AgICAgICAgICAgICAgICAgICAgICAgICAgICAgICAg ICAgICAgICAgICAgICAgICAgICAgICAgICAgICAgICAgICAgICAgICAgICAgICAgICAgICAgICAgICAg ICAgICAgDQogICAgICAgICAgICAgICAgICAgICAgICAgICAgICAgICAgICAgICAgICAgICAgICAgICAg ICAgICAgICAgICAgICAgICAgICAgICAgICAgICAgIC AgICAgICAgICAgICAgICAgDQogICAgICAgICAgICAgICAgICAgICAgICAgICAgICAgICAgICAgICAgIC AgICAgICAgICAgICAgICAgICAgICAgICAgICAgICAgICAgICAgICAgICAgICAgICAgICAgICAgICAgDQ ogICAgICAgICAgICAgICAgICAgICAgICAgICAgICAg ICAgICAgICAgICAgICAgICAgICAgICAgICAgICAgICAgICAgICAgICAgICAgICAgICAgICAgICAgICAg ICAgICAgICAgDQogICAgICAgICAgICAgICAgICAgICAgICAgICAgICAgICAgICAgICAgICAgICAgICAg ICAgICAgICAgICAgICAgICAgICAgICAgICAgICAgIC AgICAgICAgICAgICAgICAgICAgDQogICAgICAgICAgICAgICAgICAgICAgICAgICAgICAgICAgICAgIC AgICAgICAgICAgICAgICAgICAgICAgICAgICAgICAgICAgICAgICAgICAgICAgICAgICAgICAgICAgIC AgDQogICAgICAgICAgICAgICAgICAgICAgICAgICAg ICAgICAgICAgICAgICAgICAgICAgICAgICAgICAgICAgICAgICAgICAgICAgICAgICAgICAgICAgICAg KNJnQINmNTOeGTAgPYx1B3djZQJmJXSlVW5jJBu7Zx3+IUkCDbXpUXP1ziZmqW3JIM3za9FdYDbqHKGz g1KgOLy3LZ7CADOaXAnmBC1UJUrvsy8FOHFqKBWmnE KXp6xvUsCxKTM5HTLiYjopLA6YTRAlI2pywpFzYIYzONKROSbcNGSVUL7TNzCwK4YppD77YRSVKx4+DQ wsafSrPbjLAhG6SDXpq9EoUAi6TM0TZKIxOTbiNU9PMNUhzB4cNHmkRD2WUaWrFVIsISUZDqQxR58xcA OcZVh6X4LoXcQfADQyZydzHSBpLPsdEzAlJQCgCkCx DQogID4+ID4+BZcwAW2CLHggqvTqZXOcCw8PUTRbYZM3RCRelNFqFpQcKRXVCWbrGF3LdNHkVLG5kZ4x HKgoTWStBIMnX3bLOrDlaPypEO71bLajxaEdhBBeFXt+Sp7SFR7hv8QiGEv6ojRjKVhmKEF0DLtiYQRf CKIwZUEjKWU8PPI3SVPQUsBqQOWaBVNpNQgiNOTbGW Mplg0HITWtGNCuFHTtBiNbJZDzWDSsZSpxALUmPFV3CJkuJZWhBDPwIT0FDuTtYYXlIEJxMAgnLBQtAT Yxmf0SNVReYYIyAvJtJFMrXPZuWYDuDUkpQNJzFUYeAaV7FQOtKYGhWG6WEjZeWJThAHE5EHAeJCMpRA Ouzf5WEOKcPOIvEVj7BJKzCKLbLKJrEMkkMFVbTGR6 EQJ1QMEwDXWbGF4OUpHrBYHbPMWeTGYlQFXrQYDjia8RQPJoIADtIqHuPWXcMAAfYWJpCQncXHAhYAL0 TPpwOTJaHOTvUA5BQjAkNPPeRXtvFQMpFFAfVAEwnl0BEWOtSXXaJrP5AEHtVORuBKSfTVemALZmZVSx BHD8WVErEUNzGF7ZUcAkIETbQHH3IBKrGOEeDNXvby 3RRFEhKRFgNwt8UDExRLHkSZIpZXnaUFVzCUPjZsO3DZFuNWAhHD6DOyHjNDYbDHFjVKBoMEZdWXFoxf 5WOGTfHPKnXIQ5RXVjBUHrLZMlKKoeUFAzYZC2GGd2FERdOVGwFO0BDwDqCMBkJOU6NTCdSELdLUSebl 7HGBQiZVJwNWdaXRDhNVZhQYSbVDhyYCQbCJP0EUa5 DBAgKFUtQM0PSaCsZYKdAzY0SnKxVVYbVAKstz6IUKDrIREpRAv3YMXsNEOgEHRmWWs9wnXsaZScFUj2 DU7OW4FacvHrVdlGDx8Dg281TWM1LQZqMo4NZ5bzYe4gYQVnOKNSNj6AXXc6BTVlHuzwOZk7GPHlYhD6 ONC9YZOjXqu6VzDkXBaxMEr+GHoaOYQ0UfP4UBhbRk L2PPP8CfppNGZzYTmzRqGcMJQwUA9pUAPSTn3+SAnfoPRqdGimVSEZAkQ5XERjFCbwTTORCt6S ID Date Data Source [id number] 12/14/2020 08:33:38 AM EDT [address] [address]Madicvb Name: DILAN KIRKDOB: 1960ex: MOrdering Provider: GRISELDA Parra Prov: GRISELDA Reed Provider: Procedure Performed: / US RENAL KIDNEY BILATERALExam Date: 12/13/2020 16:01MRN: [id number] Number: [id number] Class: InpatientAccount #: [id number] for Exam: akiTechnique: Real time sonographic images [...] CONSTANTINE JANG On 12/14/2020 8:33 AMWorkstation ID: [id number] - [id number] Name Value Range Interpretation Code Description Data Morena rce(s) Supporting Document(s) ID Date Data Source [id number] 12/14/2020 08:31:00 AM EDT [address] [address]Kmmoprv Name: DILAN Ozuna REAGANDOB: 1960ex: MOrdering Provider: GRISELDA Gonzalezhoti Prov: GRISELDA Reed Provider: Procedure Performed: / US RIGHT UPPER QUADRANTExam Date: 12/13/2020 16:01MRN: [id number] Number: [id number] Class: InpatientAccount #: [id number] for Exam: elevated LFTsTechnique: Real time sonographic [...] CONSTANTINE JANG On 12/14/2020 8:31 AMWorkstation ID: [id number] - PS360 Name Value Range Interpretation Code Description Data Morena rce(s) Supporting Document(s) ID Date Data Source [id number] 12/14/2020 07:45:05 AM EDT [facility] INFORMATIONPatient MRN Name Date of Age Gend*PT [id number] Dilan Kirk 1960 60 years M IPPT Location Admission Date/Time Visit ID Attending [id number] 12/13/20 1238 --- Crystal Neal MD([id number]) EPI ID CSN Admitting Provider [id number] Crystal Neal MD([id number]) Attestation signed by Liliana Delgado DO at 12/14/2020 7:45 AMII was not [...] rce(s) Supporting Document(s) ID Date Data Source [id number] 12/14/2020 07:39:37 AM EDT [facility] Name Value Range Interpretation Code Description Data Morena rce(s) Supporting Document(s) EKG [facility] HQOFHt7wMrTXGmVbb0QeStMkGMFjML9igoy4F3M7sUNjN5OufEBwi3hfF9ClI5SkZVBaYXLMLU1IkMWg jb2 [file] VCiAKn237JGOPkICG+wreath machine operator+VsEQCGxu01mQthQkBe5YSqJsBIRiRjraDAgq280VCKQ2naZiiNoQmDuNAL wFvIQv4VjyZDHEuFeb1cNyVslLVwCGL2gXc9gz1ltdN+ypUpbCJR57zYgxWnoHd2lsP3XA7efzkISScT a/NSLiCd4jQWgkuG/MAsU1Xj4uOJy1T9oT3u6CpPJq oLJ+fB0zEhRyu3qsLbhMpkOupWdSptkhvhRgA+axgK02YdWXgmKHP5XO/8E3/u75XL4Olz5hv/cjLiCH XuJ6K8wT/4JzrwT/jJ36L1vc5vVW50b5Mn+LCkRyfnwD93uIkHT7jZ735o9NnUK1Op2j+8iT/wNlWarA ag7TKM7kAer/vEf8UV2DtyorKPosfVkvXm+ERvqoMu UwXQ1XXJays/1Dplfn6pRhndc5347QhAejkqYP6WyHpyDawhrdgNHPy0ljfdYgIsDMwbC5j6wMPkcUtE oqE6dEfKUwLK8NcOIoxAjn8QLsSHEOaL11F1LHhGDTkLojIHxlfjKZ8105i0tup92pw4KOO9KubTh1eD Ydo0e1DeMzP40TnymM7EZhqlTwqdAi9Dg96uESBx1C NKTE8N0/XozmDstL4gJUwCA4mgdVJauiFMjMJCDelbjda/pB2fVn0CQDeuO2oxT2jsdyIV6bR772axTo Hribmb+yLSWOXoSyhCX2u4C0Hv6Et9U1f45Tp8orI4UfhO5RpsH/TEX2GiW+auONEVJ/fNnJH5ODlkjQ unpFguphTlRqefi9GsvGbZrRvSZE2Nqe4aUbQJfRLF M60j3Fmr/YGrDlztQHGiu/oDxYnuagfuylF/6ZoR26ehbtnTZp6PPDJBihxp59t13X5gQFh2VDAUzEbT dclPZr3UpOouyTCBP8pKUFkyoYnTahkMSSYGqpXIZ8XLJT5p4CcxYF/qE4/6xKP+4MgtIj+1Ibp4Z8a0 1fEkdL4BWb9tF1KZOEq7KemMzAiersPOfEClMGncOb 0jdrA/oIQ89Wof/mTPtD+xg/3JXNiKE/contact center representative+P+xB/jhojthm48Dk2AL/y2qR9Eluv6taVLlXibELNNRR [file] paj1nysdawT8YR2RZ9MVxAQ9u9gMGGi9J06Q4Y/Tiera/NW6oL5vHWkv/yxxAEpfyxfjmxAZMS+u2r5Yx lJ4skdB4mpjT+Ygue0THR+EPTfahmng2mB6C94QkvW 303kccki8e0gDjTA8SaL8hqgt32eL8105jMsp3YNqgz2M8Wmt2LE4wPPDy8eSrTnrkQ36NzaOpm7B3wu f5r4mPeTQ+DP5Tr8A4li4Is4B+TR9ci8pbsGS0tD3QrpUB2sU69RAdWoOtqwvMFUKV+HR7daBqA/Cwa7 XL5nA1ex3K9FWnuZfP1MWRyzMaijkr+YeY100RwByd EzNWok8s7mtU1O0g6WngiYg63b+1ntX8145Lj4wcjvSEf0T9XlZmGfU6r+p3B/LKnMsroZfDtM3c/lr1 hE/M127B/Emsswt6l6grGPeB8eRMmP47StxC+1Q5n93f6Ieq5WKhFhkO7jG+B3g2uMwEwvpg4wl9gXZG rUK95npTbxv1WR+iGoVkyR5XSzA34JqlaX85PtLg4j 8lRhkGTEMU411vrU99ALuT2zKkkh5a6lrnMTUVtfVZUNe7iKAj+DVf5cu/lv5IMxLdSZcGI/LF+x8mnb wx/EE4OsRJyoKTdkaL9xJ4KQFQGkyw/RV3X95SYWMLXTqgsi/QWfvad8kJwsohLErY9taQOP+WAD3geT xrRkaARkVoRte19eCCj2O/kg91MnY2Pn5P1fglc51F EHPR40JKfaO+NQAadzEF4zzCvr5Vi0L3D3iPtwyfheKG/69GQ7oA0se0UefLbws96kq+WjVnZxusEuTr dT9tK6/XBDCAI2bYLBUdX84P9b21pizHrBdLBLL11nJ7GZPHnXKRYamr0m1WEZWr0ZNnIwEY48tyO2j/ yxxE2k/VU3nuvpztfM+WOJYvLHEsXkjyXus+SP5SvW qbmogtHNss1LaOiLQ6jS1SgZwI52t9G/lq+E3nmAKpvmUEFtS+9UI+F4pkuVjH9FCRm/+1//6z//uC6L O7r6z//553/87/Y///government affairs specialist//3nv/7zL0//Q8njn//+l6u4/TWfcUPDyd3kMWU83n3Ga/lEb7rivL6xvXY0 [file] pq5zVcz/32xbVvufXvM/Lg4wbd5oTQruX8jq83w/spectacle truer uuE3CV/99cvXerb+lo1+1+pd7SlOi3pGWs/nCdw4gsma06A2v/UJ2oCc7cQa0sV0zpX1UcpC/qoifzad ktccyiag10yx+6jm72gi2jRSHl740Jww2FwS/YP2b3+ETvluLz744j6Q6sISGD5/vZ5/+JbodMbp0k4T ndvfanP2+M+FdhbqG/Fvy3KSuik7OAq/+8xVs93Fm7 H/i222C8x8MCXkcoiM+6GeKqNiE9JBE94+lopVtug8NB10I+C4hE9bbf0vwIsnko15k41023nd0wem1C tNjmr66cU/cvkKjt6vAai87TgkD6K+2o2j5bF1z+C516Hd/u6kiS5j3I8ra/1yfkrCxUnm9W7atej3a/ u0Fms4dm/1d3kF+Brd5q+/KzK+xK+/q9D3c11NL4u2 XTB2fDeo0g4o4We/u/4ztHdu147lhwQexW+Qf/tbNPz6++o48m9/KxzEr7/q4SV2H8PAu1iTEagpOx6s Xd+nj5FPTfjg+7s+kY/98RZ56rrLbreMsyx032mevHhxkHlYu3C/1XkkskuU6x8Kh4k3J2iIujVk2g9Z eQXs3vQgl/n0Sqq0Opxv67i9E49QfhJ1uA/dj7ST4o OD+N5Q3wp7i1G7C3F7HqB6fK/A/b9H3ePg4v/2j8HXx6kiuhhjil+Y7OpF3+jdpj7N0yGV1/Pq68Ul6x 8WZ43g1x611ci6Q4T/cXg+//IljZfv/h1pbTy+lf8doXKQjf+//XUvwvb366vY/FiA93l+/tnFYkAf38 chrvPoaSVgKLzDSgadBCO1y7YJvt944bJ8NamhBiUw nXr+xs1hCBZ32jQH9j4gzxYk9864/Qg1ARs52Mtyee++2ldFo7228zuAdJv64nx6vmfY+bL6k7tt/tpZ ZcP4y9/RYyNuOtF0IkxGwD39RvY09/l0kbT5Vi3kYA71tMFx+x5cAK5e0Kn5UjZ+iLh9xawe3lumiJEK pb/P52v/IBnaRu9110G8Vwjiu3P5Z6gg86mm0omXT6 /F0zt/d2fqXy7Anj/3zGedl8g46eGX3Sx24bRZZPnaF209Gf+z96/YFr793VVYV/D1xIY37s30cYAbpg w4BZylfI79CiKnj/ygw1OD7xvHIfOHv+PTKzEdsB9o5tECI45VwekqYeIRlj+o3/zVK66IhqosNX1do5 kjgo8Fuoe4cnlycAML/B41ZHGL13JH15hmGg/w3f4/ 6bAQofon7n3kP386IS//2QgU04FWs1RC/QK+6aQUz88X03F8mqlO/YcyZ1v6cgv3Mk/r/6NrtlHnvya+ hjPgcU4ndSVi/q3x21imV/FVvasfbtGN/gsf6vz0Qwa9ZprrP61R35z7yBEJf+Nop+/ux3Dv1UsTjylT N7123iHkb/pqnaSUOlocG80rdiDVH/ndi6+giPpo7i y7+TnSmRul7oc8+RiRXyneiZM960490o587c8lg/Fie3sZf3CKRjGprkh++kF+kZ37Obk0x2ppk8ypN+ jfdSfU8tKV5p6Qt9636Uqsudz/T8317Oa+vhYYr7/H+x23q0jf2rkId2P+7W/RdkAP+xct7jBrzvko/x sj6wQtH4AzABrJZNd8UZCV+jhrLrFh5bNM+/3iq6U7 nz/8f31lGgFXbDY2GtFgkgr/QvVT05NQBuqK/Xd9It1q2im21ycf74w66h3/tbCotTdHz+2OtIE8DVUm f27h5Az9am4eFtDywnrVG7uc6fzN/5Qu3Fl1w0H+I/8gv/lXc/R5NZN/jEQLw8nHz3jqGt4cnhQjvxbb J/Lnd0/F0Z7Xm07/puIewSdw48Wf0z/aOWt9gQgb3U 95t25Y0ORszDk/jwuCq6lvG32Py8T/lX0B/7vdot5FH+uo3ls5eaXd6sszi+hv8a+rQziuUa2J92hB27 V/Z43DkiOyIfZljKM0SujR/Z39/zsn+ylB46q5cVmu6vH/65O3ci0l9XQuzZ+5Ud+Rj/6Fozh5H7/Mariela Af/V3o72p+7HiDz4hS18w0/UaCM0Z0cfmT+evDgXMt cLp4Qd8/JfQv6P9lX/Dyt2PDM/YStvx0sP/58Qc7YQUdfM23pFwbwNb+1bT+35+mqI/+Gvpr2L+20I6h igZfQVv3lb+mob+G/hrWs2F+E1/vg4Gl2H1i96NvibaFdSL7eU2WZ5PgZk8Y/nzQjc9Dt5p+Cyq4a97q E19V/kb7G+5gaEx8ybeD6+VcJU0v2dqWs0753Bpum/ 5NfJXtJ//gZWb0KnBB+mtYa6rF7zw5moq3Tz7dbb08BhwRFu8uvvY/dvSiLnp9Yt1Taygbo3Y+ei908J /yr6o++ihaDh58P/zRug0PtdqN/h70F/ovzyEc94ny6za3Y442FXTQ+ho7TwqTys/UTmP46mwzw5N/Bt Zz9P/tSRmFcczt4G7JsG4SheCQ/Tss9iBHRgmLXemX gfUcuI+m5YzEQqEon1WX2h6QdLPql5usLYFEl98JzjkHwWsoiN/zNvh9z0H6lkj0Y/c0nxzlUeWnqAuP 8xoH+Qft3/6efLfndyW+pzbSb3KRGuY9/C7p+5vST22OF5Xx5e3e58Casru0o/4K+vn2bfA47wg+zpKW Nu2ajgNS1OOc7//gblux6p3x7olc0heLUaZscs3/l/ X2xAWcRdZY6meSSv80tYA/tcC/AqqTypGwLg2aY/FVjoP2/l2K/gJfLeCrNTG/ia+boKDT4fNi+z5as/ mxC/icMyao7VWnkslCm+NgjqWwIs92F+H9R4lGGQ+lG5sGz3fK/Ca+wpgNw9afibi6zdTbPv0F2XYOpR At9Hf1+owP8380LnksgY/9uzC/wFcL+KhNb9ZcV9jR /jrc3ZMZNied2n/Pno6CufUfBSj5gGteYi0OIltgPk7hWaq/8fMy7F/LlotbC8q+Al+nuIc0O1cl4dA1 cQfEp6rT+Tr5ql9ycsCx4ju2wDJhtnKza6+422V9UoY15aT9Px9dNaf2HM8hR/8pOQgz1r4609/Ebenezer+8 79+V+CrHyjG/ia+OdiSGnm89xmaW/Ca+guxoY1jsqa 8yqxvoXr5eaga7Bn2kuWg990cJj8L/F1+lzOLq/uvWekb+ladcnsxV/P+ef/4BlflQxCO5Sx0XitC+qv yWp1yV/5KbXI1/6VJ2zqewlRvbHDv8K+34aNoc+Dt3gn4TZk3/qEX0F41HF4Bqh1+Nzgi17pI0iSFcaA G15lcrliq4sjgnyyN+A1+fjTl3i8sfer2F4xucXC6k YWt78y4tD7DRS1rM+QwLhbC5t27httTqi8ZOSI/2B8cc0nnTi842Kd1+Gs+hhm5168hwfJM/yLn6s0If 42zZ27p4+n/STaISM3iH7R5/p42FTf8ogm6rQ377uvZ42wM/HuoxmoX1QpTgfEAvdiO/kYF/OxByd3wz SSv+Vdbv/1+T/l+sxY3jUuxtsYYwD02h9v5Gru3/0L T/968pb0chd2bU899rc6RX/Kurpf/n5ZYhnDypJI54Ihs9l+20nbbgft1/+Wfmu7/+fs+//LvHr3b+V/ /XXy/aDtq/+/qyPI1vxgbgw7I+FXr8Pc/ev1ctv/bj1cp/fC691XitD5958uRhl3zt3dcjtaqmZ8abC9 vq+TT1nlj5bH++ileMt324+F/+5T/wUA47OkzPX55k ayQUy7F/fdXwv+fLf66+AA7j5AjyHho+zoovplE929sKE3xkH2eShSu1k7Uy8Kt4NqAdyj+r+XW2+j4y yAdtbbTT+no3Lb6m3dwNEs7ee/AmkyZaaxinm2d2/uAMK3us+Jpy9CaQ+Mqs/igCJhTq53Qk/zVbaN++ +5POP5O05n0f7/vXgK/M+v41a/xs1v/7V7v+7S9rvG G78bPt/t+33fqElvgqadjadCa+wne8bnUfDJeXe4sxmpnk6om66c86fhn/5NoZDaz34eut6Jh2otZc/6 Cd1t+4ivSv/hMW10TfTzhlQn7Lt7gwtf9cpLZopZ8MS08x5LzJQ529tL3akFT8KOm6/p0tF1/VaMc90k b3g5lPT66M6o9VE3+0rzOmU7xV2CLfRltSg9jDdJ9f vhfdJ2pudli/8+riq5d/+0ehPgMemQcaFZ6FnL/R/u5z9aC/B136LxWopRo5nmq3kWJxUV8JttGcBg3X V/Gy95tkr/kB6rjiG/FVrv/A+AyhjieXz7F80oql4suZhLUj4b0P2rdwWf2BHMC8AxzeXyNoB/4ezZ/c o/IQZb3ya2+vSx1YZl2/0rEb810+lWZ+72zx0ddoV/ YBVDm6R/kb+a3/pFMuUhDJnrtRB2VriZBOQ66P/ZaW72/p+2hLy/c1QN6Qnb+qDvoL/fYN/fYN/fYt6K +ja4YDbdl+3ZY+ljeeu3tU5f18S/8CfUFUe5G2FU/40MqfW07wovtX9iww5N/ipsUVq32uG70seRgs7b 3+1Qb/aoN/taF/tgBs8YS7+z7aGmi/+lU78d11mi++ Z//q25p54a0+1Qb/as/m52zoX+3Z/Oc9mx+5e98ClNzi7PgI29r86r06rY11TJ/progeu4ymtyerl4W+ 5XX7yF5Z/kZb8aE3m6fl/d2k03T9MNrM3k8xhq6JFd6aW+uwgIx18H/2wnoG/5dvzpweFs9zR/PrtqG/ 9dghF04o6hg62mnuyWR/pJuLL3y5PkJv6Ng22YIwGI +G+WKtT0qysvkjYIs7w35WgCv/H+2N+k6Ro70PE+7d/Oo4M76sl9ackg6OJl0ygVHsxralpez64g/d/4 Ee8eQ6c3+3IR/cG/3drU+0vwRr4F/ayb/KcU7+1Vgqyji40TYtmu/7d0M+uT2vBtpL+rN73f7oR4+99T j9d82i6neg268G6//7G/UY2x1Q2qq/9/fB/U3ZI1dv t++D+yj5V/nd5F/u7VN9WsavV/t8fS9L8lI98/yHlEDvcm3V4hphxE3H3s+PT/Rnwc7rXdS9J/p/fwfW M/TbN/TbdyjqY/5W4n5dlLVt3z8VaXqakWyGT4k9o+BxxqZ04MsoI2R3WoNxvQ869XLL35tMl31rQ4G5 rQ/dq91eDj7/Yi3pE25/HfjKR/NzfBi+2/Pro+9fh3 zQR9+/Plr/0ykMK19M1VQwF0dGZhmcLh5yUZoX/f7/wFe95tV4GVsKzth4H/JJK121+Hank+9BKbwnE71 +Gic3QlOJbNOy6zyPwGjk7zfh0Wr861mujXfmGink2P01YT2rt4e8rT/5NqxaydjcD4649m5RgY12v/Q D3H7fntwfToq/v8gyDm2o13pXLQWnUf/K7M/O6x754 frzlem847semnJf8//pc+G7rA/s0tL/R/q7LKB45Kt27apwHUmUhrvu+pCf/KttcrR/rq+1PsKC8uRv/ qvLTPiXzb3+rzu3v/ef1NVG/1uf14lf7jpF+Ci3m5gkQis4zfDu7Ggt73UPv9c6Od/gq/0W15huxhg14 67k+O02XohM/+Orc/1C/+Orcf0+/+OrVv/zJy//0i6 /h03zybrt/ZLfmtzvwlZd+e34L+9ewnq3/n00isxGkCtg2k6pcX9oyvopO36K/sqz/6+/RnNar3yr3nZ GEAJnvcwIsy4opJFr92qqPJhl9YrI/F1/J9OrZLxJ16jCRS/fFxVczx/biq5f/6+97/pK2FmhfQ4/Na+ Ttqd+l6DdmC2V+oFMlVL1aD/00GDhYg7C+Mi314Cov 5301JhsN4o9VQ2+96rQ+sDv2r+M+9m5r1VIcxabH/DbJ7MVrH5t719r33r+C98331V/Eilp3g46xQR+t /+iz1pMwKF0Rxov9L2kzzt5uVS2vN9aer6a+54m30efoN8D+xncbb/hxtHNQ/6B+6t103Mn58ytqW5Xb bRrIi770pg4gM+oMt5IPBA7EY+V3E19V/kL7uI/CUH /yg8YiyXfrdC/o/wWPtk/xCLTf+IbJMg3lrwT1Ozgg6/eMxpNndH/PaPvfA/7VAf/qAF+l5czRE2u4wO 86o/+DbwQW28lbIG2Bw3j6uk3f+Z9aGh0dl1bp4u/gSO/fk/kq4jP6zq23sk/vRS5H1i75kpP/7a2O9P nlc59llH9w+1FR1dGx80Va5/Ajvqmw6IS9p8L1aA2m CqkUXq5zy4xtuJ+cmS+of8+icBOjiWD27shp4h/+vaz27bpVB56jt72AGwC+7W+1efsr+nlHj7u9LQ/t JZPOwHej+nLU47gdie1Sm4x+bHvYk/nj0ztCp0r0xTUwFi0qaI27CATbwMB4ZpjDE/I08anp8317HI2F uQa+QfCr8zmpZ/t//yys59X/+2dh/k3q00Nu5Bwpo8 5W48kD/tVZC+6g8BvcFKj/pliF0qv+96w+e80xf8FR/T45n9UYm4I55pnx0Bh2bxj4k1iCX2pEVthCPm CvjqG/hv0L/wwH+UiXi9Rvx61Ty7uzkwxyoKJY66rDX25zFwRLFL+Pl0S5ov+V7e++f0/qz9gBlg5tbv Mn8vv+Pcm/yr2Q/hlyL6R/htyzG/t3b+Rj/ya+es/I //V40eVz3LTqn96i7W8mrhugRR52JFyOU/hnON7+C80gbwTj6CsfP/rtB/LBU/EGkMz8ctMD3xQvV4iS T8kHM7/lgyflgznXF1+lvsG5+Crtzc/FV57ze/FV/guci6/y3+GooKTMy1j//my6rigf2HICMsr39ACQ /+rh3z891O6/p/c64lQyANt/cOLD8nUXTtf18VvnHl 8PntP/g+l9e3GLpN865wWhR3u/0fycE/2/t0D4YE0jjiViBifB4rbkZ72H4ZA7o/1Ey/dPONrp//0DfH FA4vN5Yix5/9pq9ckR3adlzU3Q/ArRiovwmZ47/mrjXrtb23ZM0wcLENU0+Atnw2oBwC4C8WwQ+CogH4 zCV/nc51WM/l+Ii6/bhXdu9kda2SCDUvqdmC///ZCJ /LZnD+n//QC+BoJffV9eG+NrcM2OLR7hIbF+c0IO6h/hHs99xOcvzmbkHF02WyF2F1Auiu3p/K7WyHT1 bp/Pof2/ENr/y5C0so5U4pRQf/p9KZg1LWnw+hbUryM6IJzBy9x+RwJy0xzB88l07x51YVpBkeClP7oC Rk68FstN9c7W+Kqe+/9V0GuNpYS1dT2749ah/Y189H r7t4MYrz3hcn+ggmr3K2n1rgGLl6tV+YkBg9GTh1h+lWZ9/e08QT7KrEb8K6FhmP3V/Ur+QuU55RYY7G lop+7LJqwbgBEjSOk8a/PBnu6Gg7Q/yby14yN2/6XavTYfHQ20zaiqvme1IR2633eo/mC2swZ88BnK75 ur1aVxi330BwyP5HcZw0t38x+L9H+N783Ly1s1/0Ls /l+L9qo8tmOdENxt7/1ihIHYtMS23gV1xIQ+ZnZe2KlLbl5Fhg9+Clarke+r7D6NQwxswa5+38wHPsX/KuA y7GpbShn6knkDL+9/W+S13xGjTHky+V41eeBpru/J7z5G+Eb+xdF9Y1tDY6Y3B/CA/O0hJuUeckP/q8C 9nI1gQdW4tQ2wX/PRH7Lj+K0/nSGHjiUTjS5KXsdS/ cv+CmtATpzbbXd3WthJJvz/9ADmh0A6O2PmfuphpTO+XERLlcJMvV7PTBtVkN/kn2YAoodP7sp/ZwAvo eekjEKrf1NfY5T0LrY+RinOm8prdgWsd2HZJkZ7Ak6C2Gj3ikuLOw4N5Oa4AhHSjtHEeyul1RufnAu8Q bAoc9QrpKZEfacAz85u0RKo0Qsv6Kb7N6NyxTExZMO 3gY4W3+JNv3+ZphOqEoFatz2TmEqQ6A1Yez0l5GvKVepx9ZxtqauCJFyOXqOq88I7iqqiIvv/SXg/G0o 3kQnQxeNkMXVG1wlUIzDVf9T9Y1xpjH/AJrGsWEcH2VaB4k4ZMUvSRPKsZUfQhLuYJtFkKJ8DlfXRJGx 88zkR9K/vt8Ga47P/C8sX6A7ZiaT0yLCt112InjDAF nZT5ZukVT7SE3I4a0H7GlU4IbdEIkqE6oi5hRi+zRepgfRtgwqIvikW0nxktEzd/DGO+Lo50cH0EtR98 YSVxAVY96QrBV/PVubhjPDani0Ddjy48OT/QZrqTrseQD5GOmaamwGjQ4L45S9RnXqSW2DfD45KTniLp mg2gsOKCzf55PjTmvuPky3t7I2RsOeLsf8Rqe2I+Ei 2flzSNziks0GpySGeyiF4hl06euohX6EWshQeAqvU+PmxcbqR6JbYDaiOKkew0tpvvd9IeaQ5bB5FMaW /Z4O3/vUt9K6DtyXzA/rGdbas8Gtc/35fa6b9S6QuFnpo2sx3yGCm+HqBHUi1OL3WbzdsqQFKE9Pt8cd jV2nF4zD1v1O93LtZS6V0U4eI0XBy0fTyxO+CVAQyp L5ZP9ByLrHY3Ys4FByI7M//WFbvOIHlWzNfIa6XMN/WPLY8CfQAAe0Gmh2Dz/muXSaDbshBzcI6OdU3c 8IwqhHGrlT4W8CRRb+fp0gW600P3ioNBj3puorrvIwFhpXZsyXnb1wduVMtsMbiMz4y4yTjCvHkuVWvM 8EGvwiEIGKECeWk/jzTUfqQoW0NKmAHKiyWsKBUgqE QRev5Mh0k1f07Hmog4Zw08Q3DnYF6lE+iPUovXSIhtzGH4PlfQrFv/WiXAdq/K1qyzWr/77jLHFSfVgC xAizJZUPD8AdLYSAnXpCQnjpwGXz/2IQMFDB/LpsHas1G+x2b1YOryx4GRh9l6+tGb+zWcIxmFwHxIky rKth2LhI2+RdHTy6WeKoJk8T6vNU4KtAkyI6NfW/4j UsfofnAXFi+bh/42GanSuiBKUbpdPHsZO0ae2tA+ttIZRB+rovn/nd4I3mmtHCoB/68ndfDRjXATxaSL s0xtEXBSw22PP1jv4BEnEcl6Y+7309G1Kaf3LxPDbM6H8WSGgr2/ttjJVGqA9byzwmuEKVB1wPU/hfIo 3kdyXYGnBi+sH/IfEXDRgxWOC0XE7eJ/ivNfwvlDv8 V+KNxdIh/vfRw/0ISzbvyxN0y0Q3Vax1SpIzxOASkmI+c2qzGA2hu4Z0qLsG3F/x+ejzEh7KqBenMv+V qE83p7FjcFNc+A8/+eUo/2ri4Pqx2gkmG/7fzpnq9D7/leCfSWBPIOUw/1TIbgxIZRkGBF2rYY2hkx4e gzkWVa0zu+HnZ1vQkPt3K0M2Q4Ydd/FmUXBxotcYXJ yeMiIDY0citVuE/feZF95G4FbObnD7xS25bRA7TNbt7sjuAyxqK/21CARxUYGlv7Xl/QJBwnJzq7zgMi 9yjFNsoefgWm61PDw70XA/POq/sAVL65hLs74xzxe23R/n/KxPa2a8ncdSU2NR9f/+i5mhwImpZnudzX sBKd/7D3XTkiGDWufDX1G+3IUVLZjvh7NxrYt8J2I2 bNTaIqFlOH0ldohg2jY2HR7kg0J3zhb+3p0xKK7zZ3rOxMm/htwCGbs4tKjS4jhy9wReRrT2+ZJO91/Q VHgoiy5VzOa2oox2/4WedMMfpG6lBowNKmDTiG+oME8Q/Ud8I+LE54G/SjgGxInlhP+8BEvaDFTKD/+r urL0usT/JYJUI/ZPOuMvSKCMdlTu+EjU6I3irS3mAN FuLJ/3c1FYGQF13y4cYUJ69z+DlGP+82YG3cnZ3H7KW/eWvdlbAW5ivbpcK+7JuZk8r3lCJfnl8TJ3al Inw7NuvhqeWMw2v6YbFfGMZ/1ftcXvACOlr/46r9NZ/4hN0jcJ0es/Sum2JBqnsHeGg1HflcL8TQCCu8 pede53V1sF2k7/x6sS79UV6tDk9WUzXtYN0oDCY+Nm eBaUpM2eiHlakiAZa4TZIhI7+P3U7DCoSdyknnJbeF0MZYATwuPTWlbnzbHrfjx/O517F6tJPUnGO/8X 2Qz/UQVEze9e2LdzejYoOo32Rzu//z3OUf6NYxDU2/5lBndrimwQaImTvxjA5ERMq7Wm23vv/r8G8M+k yBhj0A41nVivv0LM/ifHgkUOdz8oAO5sXCKF/0fBYX 7UUzAkMMlh9VUiTJcEjABH3Whs9FMd1nWLfNQhSeHXXlBsWH9dE5llKsn+w6uZxucyxz5/98r4TQmw/M SDBRAGGeF0O1LKTJLVtCJM7JUcJZeNlrOp2JSMEvurUH6IvW9XMZxRijGOknUhNirL2lG0uEgK8VHxkO 16C3ZIfzVXpnTkMpT8vW2lICwlLIWe0teCN7gnQytZ yGpLwV3kVvIbshIFsurNUdobgpQR/yeDRxDBLZDJqAQvN3NhHCWSWHIBelXF16amH4tRG9x4aDPIKkMH 4Q2UANp06FPdMZaRGZ9cHHldDA7ZApGMDogWgOp7u1ZEYq1nf+/gPKjYAY+QFwuMmV2NPeaejWhh6fh1 lVWC2pNXyYMqfIRgIIHsw7cFDjVyCKWlkjVU9N+dLF vPHeN9JFJx38d+UNfJ1edxsIZiRmSJRlOKR0VWwnXN3kzWeV5ReuUpbIO2WOjGhhHIE3AkgZhBvQWLZn fCXFiJMG+Vii/fuJSAQA4P1uEmWmSLz2DHP1E1IzvoXVTCvfFMHodRSTuwC23hBVIxW+aaoHpNvgMeSk UulXHvK3hhMYYAGKOnJIjjWlQSjSATFBqEJ/gOYu9V 9AG0xB5TG4yqBSQ+e6ZKzzxIjCSAZKnVpoqDQSkZlGvg7Ge9kbKCkCVjuIhaupXWjPQetKSmvqR50S6S WzEuDHYsGeF987nwyVwcMILszXCmctyY+pPb90ltdYpaFQke+fETcWBkiHzLMWVC8gRRHpvAV9vwJUGE kWXYbHOkfN2839PqYMU34XBP7SdgM17/A7GnyGjAFU 7HkgTdxdWi8twN5J9SfSLv6azcbQFDUJD52VP2KahqUrN3bK1ZdLhJileRadRaErnNogbeA1ivX89xNZ d9MEpjOIj4Qzn/UDQ1YSNukm1SQFyT0hC1dhGaaTOws98EUqZ46r8TtoEvG/XIKo3LYGbaMCF4dBrm0E qvrPQ4X9PwWUgZno6BqlBXyV1qZs9YqNCJ5XWDeBQZ aNyRO6S1jXCQjVO6uFYpYDENQuZyOctFSl0QDYmvgbKNVbIL0WJM7eBpnjJG1oLB80vo7X5RArdS4n/F G0sBVV9fZRGzQw52WIgTBD6PuWakgxpsSKaNBkZoJtwePcZL1MLluTxK64fsrHCLr/BCV1/+Ke5ORwUI dCIfBEDziF1TUtHQ4LdN5zj3cqCxnFv1dtNIidpGxV g8JIGDSI+0koEQvKi+OSMFYz1VuGJyYbZu2ifaxc3T+YmMhyALDk+mSvNG9osyTI+1RrcZFGHu+uj1ml AjenHifFT/uqFz5r4U5Fz4xlN/n8Ph1Tda16v8lfuNfGamZuAVQ9DwP9s9BVAWroNJccAOC22iJuBJIb fUFRgm1VzJ7j8yB3apB59zVe/srbf9voEQ2Vd+606W Y1Iq6ocpJvs7PG9MnQStQJsZMCes/Po9p+gd0zCDGhunXZX1BIXX50QgIhGI3vzLvSkj4FmqsIXqn9jj v+ZJByu5JpYXIY1ZrNq5ZPpvn/CNBukM0jFKOCFzYgo9C5DDdcyF1YnF+8UVOdo7NdcSx5QNq0ZJ3CqH cTlP0aqyE0mYW+finG7ziTA7wkFAtycSqGVZdrgTB9 7fVeQN8qinZr1RIVCaYJP5ReNYyCI2mELVceuw5hffOWIpJUg9RwFCduObej9MclKJCmIAeXMhVnn2Ny Z46YjXlY3QaIDcmPbh1wTjxTHhpB0M52CSbVFIoY0islRFhbcXeGlTGO6Xti4ZcKNrmEJeX3reQDlPgz plZxH4J9ru4xPph53tAVuQpNH9oUUPNxD84grpQO7u od+4GJ8n3tDDQfhOT2k0nalM/CjFwqdHO8HwD5GN2F59UvRqyoyTzcJ2J3W+SAvWOaeNyeQ8TS6RrGE3 JWTMOCs9BcXoJ0cpK85RIlrAHfjLrNECXEsEHEb1eXqJrJ1KXfqrbh9VYW4TBhRcW0QpYqEWRqU59yXK yuvC5aK0tUP0b+FoQWMLqANHjEaZTmkDT+cO4LaIV9 cqOR3ZXV4EkZfMj3QPmw+rUS2TzXMRBTpCKcuFKIVvSxULB5CtCzDQTBmyzveLklXvVNmGDZStbZp51y qvG1LdpwIajOaUgA8VwkdHXi8mXq7MfUW7U05rVtPUV2s2cTdFc6pmcYDtOitLmv+b7z9wdNYszixChT NMl2BcETb3oblO4s3lABxd2XqDlm+88s8xkR3QWCwA MGMZ+I2aBIdsD+zL0749fsWf6kgH7Ce1xFB1yJWPlCCeWk0eafsKSn3cuKhfhLYFvrHzUx/yHkvlfqJz Zc9VOnEDzbwrmyMxp6mBEkx0cE257Qes4rWs1hF6ZQuDLC47osHjkD2YKy+OVmP/tXG3wkZsojjU5+xt k9/ZlLiUcUdipd/Q5Z4Mii2gPJSalyft/IPcuc5/0D BeY2R5RWv3ynk0sip5Xkta0j8Ogpji32l41fOTYG0onenWJkHTfFtYRSqkFO+5guPYGfJAb0BvEeSaKe 8Z6LgUuCBZQeEmZHg51OfSEBaIYV3D8woW6mqWbfJa1GFSEg28Yf+9Wg0HvrlHTwnMSx9gC/dlEc0rYC eIHJw/ZO3GJ7stiOHbOZIgRQSlSIE8BH8P9RUDEWHr EsBVuRWNbh3XBncYcIGkKHoZIFNQR1QxN/wqa0NPvU+h8g2LgDtVKw72n9HYWfjN/VosK9snhczxFeU7 VEE+TbVnloG/wRF8HBkvx5MBk6VwW3MX78h8l8u46pSpN3k6BzlRP7LtS54AlZzDbubLkUQlqoYcb2ok U9bMjmCmftYRa3T80h8hRMmTzMJ1RQQRoFVeOzSgRf xIWGCCJ8S+UQKogzFYD/wNblhS0yX/qJ3lA7Sp50hTuv90IkNNx42gmuRt6VRMhTb4x7fwTY3iy4tE6o korcMWm/q0AzsleoO7R+PyjuPjG0LwVWaHiStpXun5NU4PXlwiX42TuRMIsMjPrMjivwMRZFb48hgrGk xK0MUNgv426fbt8goymnzhOGdM2fKt2tMaQHFN04/0 ScxmPGRiCbuHhKW9dWCQXuvF8eap1lodLCTLMFhaNmKQbeH7ewDTY+XlcG1jUMXhPO04tIrvmfbpRpAp TXKlMQUHeNRMB9NzPKLQ9Lt+xXeWZLwg7J2vA+rA/n3IauXCXxCGQkk4p3ZDTYb2DSXIS2V5ZpwiPlzX /WDxi40mBh1/EFLuLskWHUtpPDnA0FfqxJvYMeLGVL aBYEtNCkofhgS2r6galLmfX1P6LrlqsQyFWlrJhbeFAD6oTcFEgWLBoNcBo3DXQiBN/NRHrx9hhYJrRs 7vphii3PHIP936GMtXaUzfLncrhilP+32A74fMpIdX471DfCvRGPbXBEFZdgdM7FltEGhX137KH9FWqT V43P1U6PcZDS1ov7GVcIWLf4mbjntniuXo8JbtLTuF R6yjhlxXVIhxU+jFUqXdRCBqJCAl1IXaIvWjY1FMpZJZ9WoSs8sR97fc0gd83cOD7uBauW2bHZ+U6Myh DgC+BK9gQ1S+iMfGfmLjfqLoFyrD/lPHpehdno50enJDw7ttEUKVJ6NFzNUYjGY3hVT/USSMKNPZAtiJ eULc297jrQgk7h4dVLXxvz0TTmHOaAkASdwFPNiZPY o9VrrbLYccMzVMv6WmSZukXUsjZmzSneCr3CqgJHkLyeAXejibMfCmifXSETKvm+JlIGkCMsDfZZ7lSs oSPs4uqvEAWpnDrbdakn7Y4iZYaFCaXAanLyna8XFJX2isKUmOpNcGrOIY6Y04fO+T0Bn+cGJnVCWgA9 NbxtVWKHvs9Q6yshVIRlkQXwSr4nwfwH0kuemy/879 wQ27ZAY6ruPCJuC4xfILckY0hSN/sXM/XAieOiBOEsDv0gHD1TRJYdIB+RMRHe1I4UlT6qn3Zqs41KLo kZGZSJgYq2AMbDqUmVUEHgfz26yDzAKqnzyZPYYtgMACdlmPP1YC+y7YK5wR1BlLBQ6vppA+YFgXOu+x zEyJvbxNSTPaVn4U4V7gFaTuNWahlkd92EVo6cFYqq TO+18tl8qZ+hhFY7WEsFaKMfwWtR3UV7i98SjCBJsS3PjYZq7JBraLflzZfO7puoHlj+6AnSWncRzSqI YPWD36eDnkOzbCpMIJIeo1lWo4gnOjzSYVmls1Cg42H8gvGhsNJps5Ri5OBaR/qM7CG70wimwOlZJWAI YQa95vHUd0Xh9TbPcJXJSTdTa4pSUGCsRRS/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 [file] 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/zy+apugG7Uqor43M1F6jb1oNqJWXdwqe30/u37Hz+Xv8f8+0y+izjy/nj39R/a4fAxa46RP7L9 [file] ayBTZXJpZXMpIAogICAgICAgICAgICAvUHJvZHVjZX WaQS7KH7TfKSYtDTTTNOH1j9PtLMKkjbgvinzwAo3swoWqPcy+PmfhCQZhj7ErMThkI2Y3zPFaJ9VaE2 XaYM3JxLQyCTjtRPKxRMMxNhUvSAIFPK1yX3XhoR38OJN+IcPoNO9igkh7pdOfBuChKGFiDIShLZGlLH hfYUTvQMEmDEFgSXS4PRG2GQKdCsYeHOMfJEp6Ljfe FOAkYDMqgvLLPPCyARJmYEPfXFNxRWYdHJLfURahWGHqLTH8LeTgIJJxZBNeQS9kMyLeSOSpQGXrZCBa HjX5XhGyXhNXIOFrLIOwOIIkKfKbDKZuDTUxSHlsMZZvOYTuQOy0INOoUZIsBV9gYhVjLKDzHEGvCOFa TDTrBIRqymTHWLKrKZTcNCH4ILWzMZUdZRQkQMhcYR VhXAYzEEJ6MWAzOYXwCE0wLpHzFUJhIHB7YiOsPFPdZJKnihBOJFUbKOXjCYG2HSSlLSWdQKQcBAzyCG OlVKQhVlA7NDHeLUFmNW8oNvCkNUNkZHT5RDIhCTJzMSByokDKCVRcVLJiLJo4TvScIGLeLREpWMkiVJ GmJNByMNjkYCHbVOJbAG2qDuVsEGIqSVJiQDSkFKRf SUYpyjGYKOXwIUNoGGD5OnAfJJVzXBTfOOgsEGVdWFUsQID6ACPqTEFlOM1zLdTmRIZvUDQ6YtTxREXi NPDqdgIGZVRnQXHvHDPlJJApBGMvLGApDDjeITKlJTKpJtR6QMTgZHWdUP2uJfXlJACmHLF0PTRiCUGc VMWoasZVNQRmYTOnKJR1MBGzVWZvNGJcOGowVDKwYW G9LLr0ENStMEKaFP5kKqIoLBTyHMP6FHhkTPFjROCakxOEIHIpWEOiMkIbYNFmQHMbIJYoEXusPMXjQN PsEVGeQTL2XOW9KRHvUwPiQWiqZPGNCZqLR7YdimVjJauQO4knMn1tBxAwNWPQU6Lcy9MlEHKxSOQSPl 4+XyA1YDL5gYIuYzlpVYn5OYBMFWXMZ6X= ID Date Data Source [id number] 12/14/2020 07:39:20 AM EDT [facility] Name Value Range Interpretation Code Description Data Morena rce(s) Supporting Document(s) EKG [facility] QYFGVc4aByZKOwRzl4AeUdIpIAWnGP7wfoh4Z6C1xVKeO8RqsVTac6tcG7OnI5BlNNAkHSIGFR7DtHBd jb2 [file] Pc6oUg1LWl8uTX5sCHqslgx/PS3YDcEn4B6g3II/HRixfZ5cu6dST6OPr1SySDI0I+WpX5DDhyny+Riana 06ma1N2kfgywIrqUcDyJaVm9Wk0yi7MMqFbNqmLjvUw8xgUf3QW4xraSnZiwWx7AgY52oL+mda9VZDw0 UsKEHMlskwOYodWrcA053h1nI7Rjn8Pn1ju1c9Tf+4 oFE6UTY5XLsX5bpqcS5M7x9mUw9XQ3cYZynzJZtyKbmK1sbrdX0G1WGSQqarY7pojPurmyLXwJmsO30P JlthFC8vaPeGlWUB0U6dpyQfv6fRvlYvFq4FRjXzubuHVLzygT0DMvBLoKW9H8HJJxidLQf19Rfk1GfN wh9pYQd5rApXmjgkeYWsRGpK3k1ipHGbgxPcoMuSAu iljunZq1KCn7jpItoQn9hSEZi+2NxKDMjo0qa+tYE9sHS2rzFjcfeUQu+WRqF6kSF4g+LyhthwissbYt M5Lm+XJnX3wZIEWoOnBIAIXr7ecDQKaSvY0eahzRvpYgi/GYdEelCGFgRlT+nvOY6WEGR2xVa91rIXV1 s9lgtuOObEK188kCtZhfAwvLet2Q+fuzU2QLwPeWnV B5aLjcTz+6SwC3ynHqtD92go0gWSC4rLQ9/dYoL4xeFe9YGFDRXwQG5Adq5dP0LI4vEsexjQkUYglUr3 EQX6kS5m6PUhgx9zoaA+raE4epYq1mEOavkJF2ZJBl0tpvp7abmqlhwo7uueBhl04iASuqms8ebURF/R 0T9sjR9awMwy0wF2qdW0wPmZxRweDFzPQn3g0fHxfH mNC156iJp5VqQsaUsGU4BLp4RrnOUXGDwXeqajXY/b7fQ7sQXFE3vahve5GCNEE3lPnLvjqPIdJhLvZx 5H8U8o2kvu7a6Kv1zEtfCFtIwkOr3DzB0Q/C+1r1xXc23dbC61Q+nG7rSOMClHawozCleBRxSaWU1bOW 0+wS4oePjnxkqqmhGb0KwwdzrzzldkuMvqLS4b7rPM d6j1ZUjT0M6gckTAQqi9+/K5Uxl3M2p0YgjUmgoiQ3t15M2dzmdtZOceEMisAX60cSibCk8fjKhlmRlj sceOs22HFI6eVX5Ng+UoH7Ta7LW4e6vT1skqphkP7G9V89vQcpbq7uohsPkfng4kgJIPjGhM042b03ih 2hLSggiKZfU2PA+ZpifdnyOTRh4mvEaDrvT+uLzhnf bj5t3DVDS/Ny6tNyZy4yDwtdwh3yB26GaUvCoceuNlTBFbUEjK0s4ShkeB6J7jRvUgfsctfqeYeGLouE J4N+a0ZmxdezEet+KyH4fgvLG0ntgc7SNIxjquU3W8JqxSkj7NApyR5rg8zBGEhg/NoEYkFpJ4JnbpxO Tz0Ib5Fze+KySzFsgNZm5xNiovRTiDUmsYXMsHW9/f 69Wcu6Y26yEf1K7ylyabkd3N+qpMF3cJn9ErzCay6LwM/Manuel/dRr1vhhGsnX4O9DdG0aShe7Mgxwwb8m gnsoSzxLffHUl+RlS9ztFw+XvE8pVs9C/Un94WNgewl+T5fF7+ibav5bzBm6VMLq8WB5qBo2NzMaa8vb hI6DLLbsqi+UlAmyOjINFe6W8R4k1cCiYgOkeNfLn8 EnMlXkO2Zi7wioXaVo0bD6W99noolExeblGwGmZkFfpRo9yr7MYI3SXqfQmXFIG7JlJV3YiR4e2mL2qa 0P+0Sf1rIktDly1qFqeaq2dAQ+CjbfDoEbksEvr8qkfTurvxE2Szkb7DkRZlkL4JF7gAp0E1wcfKcYjE 4aT5U5N8XUf/dXgZjpGVu6mhG9BaC1xRfKKifZVMvl OjwtyqM52f6+3erHrsyu9xwKX1kvSmrfNK9h5H+mXj73wPKdqnZzh4S7rqedN1raheQPM62946ma1Kcf zFVQnhKn5S77pqAQzx1+LcBF1W7QsCHcGp86FukvP6x5mB6d3VczEGM9AmEis1vQi2MCS8DN9dGvfCgy 0F4BubWq9yn+qDsPGpTak7/2cviZJXL3ng51LWkO5x SfxqXgurH9oUNsacQVLeMpsheDGiVuStKWk15trk1J9ayiIC0RM65dQPfuXUnKxT6mS413yRcE8sVYYf G/FCo7EP0nV6J0R9LDZ3kWz9P135eC9g7Vn6qjpVZBrLsHhwpB8zD67QusygMNBQZcdTF7VS/UkeaXc4 S6ARo3dvRtln3H0zsdnB82jWBfr7fsd9RXU5G8b4vN 6/YQWCo5ytfJ4FJxZXa+BKvjFA7woSGc26/sWOiZXCe2EQcFjH1wcJ704gtMY6icalwrqq/TkhwO+Mbl UklpjAfSHBnbfBli3jJ1xXr+McR0xa42czUJf5KZB960o1Yyp5YeP76f0ooLMJc4Lr9HYB7XcN4vvTig xGtQI/VZL7kw0edmz0s/KrkW2fpvTA5lJ7k/5/KGPc P+JSq64Wf908h81jj28NEXm9ytwzg+F3MdhS04Szl/uBAnH5CrR4IiZSp1pDs/Q0tMJlanOKN82Xcm+p bR5Q2f+QhUxLe9Wfkfjgz3Zkl97AWVl3JaH471cU7LuEDg0XVa3zE5i/e9mwll7pDH5D+6vOFErFthHF FEE2aAia5vAZNTTfUZL2r4pN4lIfWtlNcv5fCrFij1 0lN8pMuRouzy5kvrT7WZOyJ8Ym4nZRSnRkt0IXkGNYmM3l2s0S6vJEKRRtp2uAX6L6gnxszDiIAqwH25 VaqHVmYuWEFXTDzoODneoGMOvrbrbKkJqIfWo6OW3KrBl3IBHrnCN8wg1V4OBul1xFKzhNOCcpJ2b7W/ i6GasaybBgwH9yn2+8Fpl9rqaRi21tgW2c4psaXYtf ZnYmkZ460Ivw0Hz2+numiJFmjJPgEpm8bsjcx/0D2fifg7WX/+0rmvpssbLi/5i/Kb174w6fsMX8rH+7 H0sGYdozJM3J+NGrOdHs6GViYkAzD++1AGGhe3qXMygV5g+N/H4O7oqYtmijaqnWaNsYHD20v1DlB2h/ b9XX8o/nwse6Kc6tFf6d2oi/RjfPBx9590NE4f/as7 L2oJkg3/EhqarwLsx8VC5OZk+r027yJy1U+1uEbho/1r0exRS7KCfqAQM3Smnelj5Q3u77+feP78/llR 9/IK21zIqU7mTU7WwG2+1foGo45DuMN/1U4Gp3nee/o2/jE881t/f//qe/d50oniF1f55VuVaclh7t7l S35X8AXRy+hGiu/bPu/i+64/Majb0af8+573md6/up Zh+b69Y9/KcOz8/aLZR4r/7z4ThLE3e74qNK4Aa34/Ued+vaBxJ4H1w+b3vX+/YT6/x/0Lu/k6J4Nfhn cqhk/9ur0B+n6/KM2Qkmico+jrwr2Zh+gUk322Bx8l73POi2+n9Pp+ryn71ypR2rWftv39zs9t1yssmr nn7yj/VBnTzmu8r5ylyQ+fMY5KNhSeuG5uIkOo9tyh gfynYl07HZL0EDk7Has4E92HNZrm2pRMGFkGe17gmClgkx6yNgL5XPdyB7ADyKr6And8z/3CJTZHvjhk ShvccuHZ53Rt88tALPcPNtAHvAMLjDa0GcYIHeC4VWnVcbJ6GhYKVGRUKVTHuPAb9pjwHLScQRU14bfU cxHwcuItdJcsp3AQEga45zxBH+T4+4PjVLC/N17Otk CWXU4cE6xZpJnnS8dIx2owuLdkey2YNwq8xhUmsAnUzKVGCobrsTPrd9oreYMKxeIJGdaaJBmnvm6iwo 7QNrOi1yjf6seytkq5ho28fR4JSmXVvYibddWX9u/w4ljDtAbiQMD2WXBLq61RRlIQuWu/3+mFZZDmr9 9SMQwDSprbPWol5TdsCztrIv/h+oWzo/Kuzr71N2g/ 4fqFixwO+j8TMI1Y1lGptUMButZb+oU/B7QgD7SJWYpPE27GfhthtoVf2m1z5Rt21sKPzKw80IHPZeYZ eWZ66BsatuOtvgUhtERSTXmJAkjcIWDaNLfu+oW/l4QVmBrQ1/wOdAM5ybDVMk4bMGWL8fnEiES2REBn yM4UbADtY4A/pulCARwy3SxDRfC3SXeirl4Fla07oa EDfl6/9PhYpWb9UyrVJEt5L7v9tqBUhu3n1IL37CZV2zd81PkC1xk8/3n63/zg/X2+QBmDrn5rquABlB t/tcfMd25f/qb/t+/6/mYE9/+/L2Gcr/I8fbZzIXfQLgr+/2kI9orkjp7nfcl2mNmPU7yr/n3+f/g+yq 7+v+j/m/5/iwzaq7X8149R/3zjb7n8mW5+Psru/k3/ b9/1Pcqu/t8pfaf/D/r/oP9P+v461VtR+dPzzkX/C4IExr1Pr1//69nJiuX00qsz6TD/z+c96Y+yA29H 2aGso+rlIW0vXqQd8nIlxn+yu3/brdtRdvX/Sgiv5v7gC8++fpSdG/7+/T97+dV4vs4cZAmAgpYbc/q/ 0//O30ekpiJ3pe1+/fI/dl99eDFS/8/zDvx9/p9pzv MO/G3v70n/n5T+PC/yPM+LPBelp+ddm9Jv+r/T/99cYogy8q/39/6/z/SexVhB84vax//qPGV5fr/0// P5BMPc76iq/c5NObUAy+fNz+M2+e518ecw7ebq3UR27BGb0+39HfT/gMOf45x33/n/QmR2lS8S+7kM4a pp9K72Xr+PN5/0/0ylYwDvaL61OpLmCinW9H3Y8emk el4P+f44hpL98Ky29izXLg/Lmw/+/j6+T5LMup3OwJDsc04/5bO5OaP+Jhs7sVskmTW+2JvaVV1K/9+U j3/P1+n/8fiJMxPFif/bi87msvlrKlpboiAakxyAlhD/x63/ygWC4H3EBx2sn/I3Sm/2/l6U/mpe4nZd Ppvy94/+pvoE5R+k4FE31Cl5d97HcYoYbPTamdI8Fy /o/4P+P1+1tf8rnfvl46jIX5h/qNxN+e/HQ3PKx+n/QfWP9//+vfz79+kY86oVkmK/1n56np5+6P/j1b LIQUEFIED PETROLEUM GASFITTER+v/rv+fagvc3/Z/kw3seFrnu2nKw/0750/MefXX/pyLi28hQ8/Xfc1XB+/vVZ/IP8wzYe3EmhsN1Zd C9NMeF52p81/qw6R5XOrGGpkv4rvhgMiHxD8O/49Vz Uv+d30s/1yf58gvb9W3thd/7pqhBi8sW5Xok/e59lx9ncq8t/kjlo0ybHoWIfjrc5mvTj6A+6iYwJq4D 0vinr9zD/x12mwd9TgmEt3N9N2+Xmi7eNEUvyFkxk0njUhrw8E+oPvt+zaN7Hv95+u8FhV9vxH9oWgI+ nxqtsdmp5WwsMa+pr/B3f/mnvkI+K86Z9ldZ9e/zzv z/fPVJfVV/0//Y223G8y49TqANhwsAoUCrw9J+5Ljmnii2KRV+CuirTN8/+vvVM/VVlrvp/aa+Qvqnrw L6Cn9T/pPtL99mS/dgqrwZE2boM7B5uoWDUxX1VN2GK6B4f/rc3F703l03jp3c/9RX+P+g/8+P/n48pL 7C/43qsyifdXV++JsvhNPzutP/quECfl6vk7ub9l+p r/D/D187Foal//fHW+fuzGy6x9aCzj7Zv9F/c36Ev+66oG72vqBI5g4eJR7xAWTaPO97t/VxC8rDXZr3 Fki7MBzdsuDPjJelyXo8GNjV/CjZvE+GMXRSjqWeSjgDxIU4d0RVuZlknK/Ge7ylyBN16os+W9HGtjDH riS5trZgIDygHQNTN7HivD5UijtOKNQPdOEFFU//ct jkd5112l+W26xv6S+q8TupC7G1PNvHjo/zMPqDWgXD4CE+7wL4Wr4DgltI/Skjwz/xaE4cLDs3++sRdf rfyDBGTsxrvMP+m2nHDIDsOi0Ks4xvrJCfHMTt/M0BBJxkTIDe89IlvwMFJkdMSTP9ou0EuuRXtb3/driver [file] [facility]afqRZzlLeyMXDPNBVhQQn0WlRsOP6I ID Date Data Source [id number] 12/14/2020 01:38:40 PM EDT [facility] [place] [facility] Name Value Range Interpretation Code Description Data Morena rce(s) Supporting Document(s) PT 16.5 s (9.2-11.9) H [facility] [place] [facility] INR 1.61 [facility] [place] [facility] SUGGESTED THERAPEUTIC RANGES USING INR F ORSTABILIZED ANTICOAGULATED PATIENTS:STANDARD DOSE THERAPY INR 2.0-3.0 DVT, PE, PREVENT DVT OR EMBOLISMHIGH DOSE THERAPY INR 2.5-3.5 PREVENT EMBOLISM FROM MECHANICAL HEART VALVE ID Date Data Source [id number] 12/14/2020 08:06:14 AM EDT [facility] [place] [facility] Name Value Range Interpretation Code Description Data Morena rce(s) Supporting Document(s) TROPONIN I 6.84 ng/mL (<0.05) H [facility] [place] Susie Shoemaker Less than 0.05: Myocardial injury unlike lyGreater than or equal to 0.05: Highly suggestive of myocardial injuryCorrelation with rise and/or fall ofserial troponins, clinical symptomsand ECG changes is necessary.ALERTED CRITICAL RESULT TOABBY ([id number]) ON 15 [place] 78970 ON 12.14.20 AT 0805 [place] [id number] ID Date Data Source [id number] 12/14/2020 07:28:10 AM EDT [facility] [place] [facility] Name Value Range Interpretation Code Description Data Morena rce(s) Supporting Document(s) SODIUM 136 mmol/L (136-145) [facility] [place] [facility] POTASSIUM 4.1 mmol/L (3.6-5.2) [facility] [place] [facility] CHLORIDE 98 mmol/L (100-108) L [facility] [place] [facility] CO2 24 mmol/L (22-31) [facility] [place] [facility] ANION GAP 14 mmol/L (7-16) [facility] [place] [facility] UREA NITROGEN 44 mg/dL (7-24) [facility] [place] [facility] CREATININE 2.71 mg/dL (0.80-1.30) H [facility] [place] [facility] BUN/CREAT RATIO 16.2 RATIO (10.0-20.0) [facility] GLUCOSE 107 mg/dL (70-99) H [facility] [place] [facility] CALCIUM 8.8 mg/dL (8.4-10.2) [facility] [place] [facility] TOTAL PROTEIN 6.6 g/dL (6.4-8.2) [facility] [place] [facility] ALBUMIN 3.4 g/dL (3.5-4.6) L [facility] [place] [facility] GLOBULIN 3.2 g/dL (2.7-4.3) [facility] [place] [facility] ALB/GLOB RATIO 1.1 RATIO [facility] [place] [facility] ALKALINE PHOSPHATASE 50 U/L (45-117) [facility] BILIRUBIN,TOTAL 0.7 mg/dL (0.0-1.0) [facility] [place] [facility] PLEASE NOTE:Total bilirubin results may be falselyelevated in patients taking Eltrombopag. AST (SGOT) 3595 U/L (11-39) H [facility] [place] [facility] ALT (SGPT) 5219 U/L (12-78) H [facility] [place] [facility] GFR 24 ml/min/1.73m2 (>59) L [facility] [place] [facility] GFR ( AMER) 29 ml/min/1.73m2 (>59) L [facility] [place] [facility] GFR INTERPRETATION [facility] --NORMAL KIDNEY FUNCTION OR MILD DISEASE - GFR >OR= 60CHRONIC KIDNEY DISEASE - GFR 15 - 59RENAL FAILURE - GFR <15 Est. GFR calculation based on the MDRDstudy equation, which assumes a steadystate for creatinine. Est. GFR should notbe used for medication dosing. ID Date Data Source [id number] 12/14/2020 06:46:16 AM EDT [facility] [place] [facility] Name Value Range Interpretation Code Description Data Morena rce(s) Supporting Document(s) WBC 15.0 10*3/uL (4.1-11.0) H [facility] [place] [facility] RBC 4.86 10*6/uL (4.60-6.10) [facility] [place] [facility] HGB 15.7 g/dL (13.5-18.0) [facility] [place] [facility] HCT 45.8 % (41.0-53.0) [facility] [place] [facility] MCV 94.2 fL (80.0-95.0) [facility] [place] [facility] MCH 32.4 pg (27.0-32.0) H [facility] [place] [facility] MCHC 34.4 g/dL (32.0-36.0) [facility] [place] [facility] RDW 14.5 % (10.5-14.5) [facility] [place] [facility] PLT 100 10*3/uL (150-450) L [facility] [place] [facility] MPV 9.1 fL (7.1-10.7) [facility] [place] [facility] ID Date Data Source [id number] 12/14/2020 06:42:54 AM EDT [facility] [place] [facility] Name Value Range Interpretation Code Description Data Morena rce(s) Supporting Document(s) APTT 48.7 s (22.0-34.3) H [facility] [place] [facility] ID Date Data Source [id number] 12/14/2020 04:07:19 AM EDT [facility] [place] [facility] Name Value Range Interpretation Code Description Data Morena rce(s) Supporting Document(s) TROPONIN I 6.30 ng/mL (<0.05) H [facility] [place] [facility] Less than 0.05: Myocardial injury unlike lyGreater than or equal to 0.05: Highly suggestive of myocardial injuryCorrelation with rise and/or fall ofserial troponins, clinical symptomsand ECG changes is necessary.ALERTED CRITICAL RESULT LINDSAY([id number]) D3([id number]) [place] [address] ON 12/14/20 [place] [address] ID Date Data Source [id number] 12/14/2020 04:04:04 AM EDT [facility] [place] [facility] Name Value Range Interpretation Code Description Data Morena rce(s) Supporting Document(s) SODIUM 137 mmol/L (136-145) [facility] [place] [facility] POTASSIUM 3.9 mmol/L (3.6-5.2) [facility] [place] [facility] CHLORIDE 98 mmol/L (100-108) L [facility] [place] [facility] CO2 25 mmol/L (22-31) [facility] [place] [facility] ANION GAP 14 mmol/L (7-16) [facility] [place] [facility] UREA NITROGEN 40 mg/dL (7-24) H [facility] [place] [facility] CREATININE 2.84 mg/dL (0.80-1.30) H [facility] [place] [facility] BUN/CREAT RATIO 14.1 RATIO (10.0-20.0) [facility] GLUCOSE 134 mg/dL (70-99) H [facility] [place] [facility] CALCIUM 9.1 mg/dL (8.4-10.2) [facility] [place] [facility] TOTAL PROTEIN 6.7 g/dL (6.4-8.2) [facility] [place] [facility] ALBUMIN 3.2 g/dL (3.5-4.6) L [facility] [place] [facility] GLOBULIN 3.5 g/dL (2.7-4.3) [facility] [place] [facility] ALB/GLOB RATIO 0.9 RATIO [facility] [place] [facility] ALKALINE PHOSPHATASE 48 U/L (45-117) [facility] BILIRUBIN,TOTAL 0.8 mg/dL (0.0-1.0) [facility] [place] [facility] PLEASE NOTE:Total bilirubin results may be falselyelevated in patients taking Eltrombopag. AST (SGOT) 4478 U/L (11-39) H [facility] [place] [facility] ALT (SGPT) 5475 U/L (12-78) H [facility] [place] [facility] GFR 23 ml/min/1.73m2 (>59) L [facility] [place] [facility] GFR ( AMER) 28 ml/min/1.73m2 (>59) L [facility] [place] [facility] GFR INTERPRETATION [facility] --NORMAL KIDNEY FUNCTION OR MILD DISEASE - GFR >OR= 60CHRONIC KIDNEY DISEASE - GFR 15 - 59RENAL FAILURE - GFR <15 Est. GFR calculation based on the MDRDstudy equation, which assumes a steadystate for creatinine. Est. GFR should notbe used for medication dosing. ID Date Data Source [id number] 12/14/2020 03:47:27 AM EDT [facility] [place] [facility] Name Value Range Interpretation Code Description Data Morena rce(s) Supporting Document(s) MAGNESIUM 1.9 mg/dL (1.7-2.4) [facility] [place] [facility] ID Date Data Source [id number] 12/14/2020 12:56:44 AM EDT [facility] [place] [facility] Name Value Range Interpretation Code Description Data Morena rce(s) Supporting Document(s) APTT 30.7 s (22.0-34.3) [facility] [place] [facility] ID Date Data Source [id number] 12/13/2020 08:10:12 PM EDT [facility] INFORMATIONPatient MRN Name Date of Age Gend*PT [id number] Lewis, Dilan Sulma 1960 60 years M IPPT Location Admission Date/Time Visit ID Attending [id number] 12/13/20 1238 --- Crystal Neal MD([id number]) EPI ID CSN Admitting Provider [id number] Crystal Neal MD([id number])Inpatient Consult Andrez KikrMRN: [id number] FOR GI CONSULT: Acute hepatitisHOSPITAL PROBLEM LIST:Principal Problem: 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 [facility] went to [facility] ER wherehe was found to [...] by mouth 2 (two)times a dayScheduled Meds: [MAR Hold] aspirin 81 mg Oral Daily [MAR Hold] bisoprolol 5 mg Oral Daily [MAR Hold] clopidogrel 75 mg Oral Daily [MAR Hold] insulin lispro 1-4 Units Subcutaneous With [...] rce(s) Supporting Document(s) ID Date Data Source [id number] 12/20/2020 01:40:51 PM EDT [facility] [place] [facility] Name Value Range Interpretation Code Description Data Morena rce(s) Supporting Document(s) PROTEIN,URINE 98 mg/dL [facility] [place] [facility] URINE PROTEIN MAY BE FALSELY ELEVATEDDUR ING TREATMENT WITH AMINOGLYCOSIDESDUE TO METHOD INTERFERENCE. ALBUMIN URINE 36.6 % [facility] [place] [facility] ALPH1 1 URINE 63.4 % [facility] [place] [facility] TOTAL OTHER FRACTIONS ALPHA 2 URINE [facility] [place] [facility] BETA URINE [facility] [place] [facility] GAMMA URINE [facility] [place] [facility] INTERPRETATION: [facility] [place] [facility] [place] [address] Mixed glomerular and tubular proteinuria. MD Jay 12/16/20 ID Date Data Source [id number] 12/13/2020 11:27:33 PM EDT [facility] [place] [facility] Name Value Range Interpretation Code Description Data Morena rce(s) Supporting Document(s) URINE WBC (0-5) [facility] [place] [facility] URINE RBC (0-2) [facility] [place] [facility] EPITHELIAL CELLS 2+ [HPF] [facility] [place] [facility] AMORPHOUS 1+ [HPF] [facility] [place] [facility] HYALINE CASTS [facility] [place] [facility] COARSE GRAN CAST [facility] [place] [facility] ID Date Data Source [id number] 12/13/2020 10:28:36 PM EDT [facility] [place] [facility] Name Value Range Interpretation Code Description Data Morena rce(s) Supporting Document(s) PROTEIN,URINE 98 mg/dL [facility] [place] [facility] URINE PROTEIN MAY BE FALSELY ELEVATEDDUR ING TREATMENT WITH AMINOGLYCOSIDESDUE TO METHOD INTERFERENCE. CREATININE,URINE 97.80 mg/dL [facility] URINE TP/CR RATIO 1.00 RATIO (0.00-0.20) H [facility] ID Date Data Source [id number] 12/13/2020 10:10:25 PM EDT [facility] [place] [facility] Name Value Range Interpretation Code Description Data Morena rce(s) Supporting Document(s) COLOR [facility] [place] [facility] APPEARANCE [facility] [place] [facility] SPEC GRAV URINE 1.017 (1.003-1.030) [facility] PH URINE 5.5 (5.0-7.5) [facility] [place] [facility] LEUK ESTERASE (NEG) [facility] [place] [facility] NITRITE URINE (NEG) [facility] [place] [facility] PROTEIN URINE 1+ (NEG) A [facility] [place] [facility] GLUCOSE URINE 1+ (NEG) A [facility] [place] [facility] KETONE URINE (NEG) [facility] [place] [facility] [place] UROBILINOGEN 0.2 mg/dL (0-1.0) [facility] [place] [facility] [place] BILIRUBIN URINE (NEG) [facility] [place] [facility] BLOOD/HGB URINE 2+ (NEG) A [facility] [place] [facility] ID Date Data Source [id number] 12/13/2020 09:42:50 PM EDT [facility] [place] [facility] Name Value Range Interpretation Code Description Data Morena rce(s) Supporting Document(s) URN CULTURE HOLD [facility] [place] [facility] FOR ADD ON CULTURE ID Date Data Source [id number] 12/20/2020 01:25:18 PM EDT [facility] [place] [facility] Name Value Range Interpretation Code Description Data Morena rce(s) Supporting Document(s) TOTAL PROTEIN 6.7 g/dL (6.4-8.2) [facility] [place] [facility] TOTAL PROTEIN EPP 6.7 g/dL (6.4-8.2) [facility] [place] [facility] ALBUMIN CALC 4.5 g/dL (3.9-5.1) [facility] [place] [facility] [place] ALPHA 1 CALC 0.2 g/dL (0.1-0.3) [facility] [place] [facility] [place] ALPHA 2 CALC 0.7 g/dL (0.4-1.0) [facility] [place] [facility] [place] BETA CALC 0.7 g/dL (0.5-1.1) [facility] [place] [facility] GAMMA CALC 0.6 g/dL (0.4-1.2) [facility] [place] [facility] MONOCLONAL CALC (NOMONO) [facility] [place] [facility] ALBUMIN PERCENT 66.4 % (58.8-69.6) [facility] [place] [facility] ALPHA 1 PERCENT 3.0 % (1.6-3.0) [facility] [place] [facility] ALPHA 2 PERCENT 10.4 % (7.2-13.2) [facility] [place] [facility] BETA PERCENT 11.1 % (8.0-14.7) [facility] [place] [facility] GAMMA PERCENT 9.1 % (7.3-16.4) [facility] [place] [facility] INTERPRETATION: [facility] [place] [facility] MD JAY 12/16/20Interpretation perf ormed [place] [address] ID Date Data Source [id number] 12/17/2020 01:17:18 PM EDT [facility] [place] [facility] Name Value Range Interpretation Code Description Data Morena rce(s) Supporting Document(s) MYELOPEROX AB 0 AU/mL [facility] [place] [facility] Reference range: 0 to 19 INTERPRETIVE IN FORMATION: Myeloperoxidase Abs, IgG 19 AU/mL or Less ......... Negative 20-25 AU/mL .............. Equivocal 26 AU/mL or Greater ...... Positive Approximately 90% of patients with a P-ANCA pattern by IFA have antibodies specific for MPO. SERINE PROTEINASE 3 1 [facility] Reference range: 0 to 19Unit: AU/mL INTE RPRETIVE INFORMATION: Serine Proteinase 3, IgG 19 AU/mL or Less ........ Negative 20-25 AU/mL ............. Equivocal 26 AU/mL or Greater ..... Positive Approximately 85% of patients with a C-ANCA pattern by IFA have antibodies specific for PR3. ANCA IFA TITER Lab [facility] <1:20Reference range: <1:20 ANCA IFA PATTERN Lab [facility] None DetectedReference range: None Detec naresh INTERPRETIVE INFORMATION: ANCA IFA Pattern Neutrophil Cytoplasmic Antibodies (C-ANCA = granular cytoplasmic staining, P-ANCA = perinuclear staining) are found in the serum of over 90 percent of patients with certain necrotizing systemic vasculitides, and usually in less than 5 percent of patients with collagen vascular disease or arthritis. Performed By: [employer] [place] [address] Prescription Clerk Lenses: Li Hoffman MD ID Date Data Source [id number] 12/16/2020 04:04:44 PM EDT [facility] Name Value Range Interpretation Code Description Data Morena rce(s) Supporting Document(s) CH50 TURBIDIMETRIC 67.0 Lab All[facility] Reference range: 38.7 to 89.9Unit: U/mL REFERENCE INTERVAL: Complement Activity Total, (CH50) 38.6 U/mL or less ..........Low 38.7-89.9 U/mL .............Normal 90.0 U/mL or greater .......High Performed By: [employer] [place] [address] Prescription Clerk Lenses: Li Hoffman MD ID Date Data Source [id number] 12/16/2020 01:05:23 PM EDT [facility] Name Value Range Interpretation Code Description Data Morena rce(s) Supporting Document(s) KAPPA FREE LIGHT 56.60 H Lab [facility] Reference range: 3.30 to 19.40Unit: mg/L INTERPRETIVE INFORMATION: Plush Qnt Free Light Chains Undetected antigen excess is a rare event but cannot be excluded. Free light chain results should always be interpreted in conjunction with other clinical and laboratory findings. LAMBDA FREE LIGHT 30.32 H Lab [facility] Reference range: 5.71 to 26.30Unit: mg/L GEOVANNA/HAMLIN RATIO, SERUM 1.87 H [facility] [place] Reference range: 0.26 to 1.65 Performed By: [employer] [place] [address] Prescription Clerk Lenses: Li Hoffman MD ID Date Data Source [id number] 12/16/2020 08:14:49 AM EDT Lab [place] [facility] [place] Name Value Range Interpretation Code Description Data Morena rce(s) Supporting Document(s) GLOM BASE MEMB IGG 0 EU [facility] [place] Reference range: 0 to [...] and assessment of renal prognosis. Performed By: [employer] [address] [place] [id number] Prescription Clerk Lenses: Li Hoffman MD ID Date Data Source [id number] 12/14/2020 05:02:46 PM EDT [facility] [place] [facility] [place] Name Value Range Interpretation Code Description Data Morena rce(s) Supporting Document(s) BÁRBARA SCREEN @ (NEG) [facility] [place] [facility] [place] ID Date Data Source [id number] 12/13/2020 11:01:13 PM EDT [facility] [place] [facility] [place] Name Value Range Interpretation Code Description Data Morena rce(s) Supporting Document(s) TROPONIN I 6.39 ng/mL (<0.05) H [facility] [place] [facility] [place] Less than 0.05: Myocardial injury unlike lyGreater than or equal to 0.05: Highly suggestive of myocardial injuryCorrelation with rise and/or fall ofserial troponins, clinical symptomsand ECG changes is necessary.ALERTED CRITICAL RESULT TOKATIE([id number]) D3([id number]) AT 2255 ON 12/13/20 [place] [id number] ID Date Data Source [id number] 12/13/2020 10:58:37 PM EDT [facility] [place] [facility] [place] Name Value Range Interpretation Code Description Data Morena rce(s) Supporting Document(s) CERULOPLASMIN @ 34.2 mg/dL (20-60) [facility] [place] [facility] [place] ID Date Data Source [id number] 12/13/2020 10:36:31 PM EDT [facility] [place] [facility] [place] Name Value Range Interpretation Code Description Data Morena rce(s) Supporting Document(s) ACETAMINOPHEN <2.5 ug/mL (10.0-30.0) L [facility] [place] [facility] [place] ID Date Data Source [id number] 12/13/2020 10:12:40 PM EDT [facility] [place] [facility] [place] Name Value Range Interpretation Code Description Data Morena rce(s) Supporting Document(s) HEPATITIS C AB @ (NEG) [facility] [place] [facility] [place] NOT INFECT ED WITH HCV, UNLESS RECENTINFECTION IS SUSPECTED OR OTHER EVIDENCEEXISTS TO INDICATE HCV INFECTION. ID Date Data Source [id number] 12/13/2020 09:22:23 PM EDT [facility] [place] [facility] [place] Name Value Range Interpretation Code Description Data Morena rce(s) Supporting Document(s) RHEUMATOID FACTOR @ <15 IU/mL (0-15) [facility] [place] ID Date Data Source [id number] 12/13/2020 09:22:23 PM EDT [facility] [place] [facility] [place] Name Value Range Interpretation Code Description Data Morena rce(s) Supporting Document(s) COMPLEMENT C3 @ 56 mg/dL (90-180) L [facility] [place] [facility] [place] ID Date Data Source [id number] 12/13/2020 09:22:23 PM EDT [facility] [place] [facility] [place] Name Value Range Interpretation Code Description Data Morena rce(s) Supporting Document(s) COMPLEMENT C4 @ 20 mg/dL (10-40) [facility] [place] [facility] [place] ID Date Data Source [id number] 12/13/2020 06:40:38 PM EDT [address] [id number] Name: Dilan KirkDOB: 1960ex: MOrdering Provider: PIERCE Priest Prov: PIERCE AMAYAReferryajaira Provider: Procedure Performed: US ABDOMINAL VEINS LIMITEDExam Date: 12/13/2020 16:02MRN: [id number] Number: [id number] Class: INFORMATION: Exam: US Duplex Artery or [...] rce(s) Supporting Document(s) ID Date Data Source [id number] 12/13/2020 06:33:52 PM EDT [address] [address]Emmxdxj Name: Dilan Sulma ReaganDOB: 1960ex: MOrdering Provider: ROBERT Degroot Prov: ROBERT Damon Provider: Procedure Performed: XR CHEST PORTABLEExam Date: 12/13/2020 18:12MRN: [id number] Number: [id number] Class: INFORMATION: Exam: XR Chest Exam date [...] rce(s) Supporting Document(s) ID Date Data Source [id number] 12/13/2020 05:04:51 PM [facility]T [facility] INFORMATIONPatient MRN Name Date of Age Gend*PT [id number] Dilan Kirk 1960 60 years M IPPT Location Admission Date/Time Visit ID Attending [id number] 12/13/20 1238 --- Crystal Neal MD([id number]) EPI ID CSN Admitting Provider [id number] Crystal Neal MD([id number])Consult NoteAdmit Date: 12/13/2020Today's Date: December 13eason for consult: AKIRequesting physician: Dr. Bowerssessment/Plan:1. JOHN: [...] 4 yearspresented with [facility]ness [facility]. He wasnoted to be in acute renal failure with severely abnormal liver function testand transferred [facility]. Patient hadsome soda [...] coronary artery disease and had a cath [id number] which showed mild CAD and did not [...] reviewed today at 1:50 PM :Labs from Sikh reviewedImaging:CXR from Sikh reviewedCurrent Meds:Scheduled Meds: amLODIPine 10 mg Oral [...] (DEFINITY) 8.476 mg in 10 mL NS IVSalil MD Ryan Name Value Range Interpretation Code Description Data Morena rce(s) Supporting Document(s) ID Date Data Source [id number] 12/13/2020 05:09:46 PM EDT Lab [place] [facility] [place] Name Value Range Interpretation Code Description Data Morena rce(s) Supporting Document(s) POC TEMPERATURE [facility] [place] [facility] [place] 37.0C POC SOURCE [facility] [place] [facility] [place] PUNCTURE SITE [facility] [place] [facility] [place] O2 THERAPY [facility] [place] [facility] [place] CP BYPASS [facility] [place] [facility] [place] KIERAN TEST [facility] [place] [facility] [place] POC VENOUS PH 7.35 pH (7.33-7.43) [facility] [place] [facility] [place] POC VENOUS PCO2 45.9 MM HG (38.0-50.0) [facility] [place] POC VENOUS PO2 28 MM HG (30-50) L [facility] [place] [facility] [place] POC VENOUS SO2 49 % (60-85) L [facility] [place] [facility] [place] POC VENOUS BASE DEFICIT 1 MMOL/L (0-2) [facility] [place] POC VENOUS HCO3 25.5 MMOL/L (23.0-27.0) [facility] [place] POC VENOUS TOTAL CO2 27 MMOL/L (24-28) [facility] [place] PERFORMED BY [facility] CLINICAL STAFF POC HCT 47 % (41.0-53.0) [facility] [place] [facility] [place] POC SODIUM 134 MMOL/L (136-145) L [facility] [place] [facility] [place] POC POTASSIUM 5.4 MMOL/L (3.6-5.2) H [facility] [place] [facility] [place] POC IONIZED CALCIUM 4.9 MG/DL (4.6-5.3) [facility] [place] POC GLU 106 MG/DL (70-99) H [facility] [place] [facility] [place] PERFORM LAB [facility] [place] [facility] [place] ID Date Data Source [id number] 12/13/2020 05:06:44 PM EDT [facility] [place] [facility] [place] Name Value Range Interpretation Code Description Data Morena rce(s) Supporting Document(s) POC NOVA GLU 112 mg/dL (70-99) H [facility] [place] [facility] [place] PERFORMED BY [facility] CLINICAL STA[facility] ID Date Data Source [id number] 12/13/2020 08:48:30 PM EDT [facility] [place] [facility] [place] Name Value Range Interpretation Code [...] APR 20, 2017). ID Date Data Source [id number] 12/13/2020 08:48:30 PM EDT [facility] [place] [facility] [place] Name Value Range Interpretation Code Description Data Morena rce(s) Supporting Document(s) HEPATITIS B S AG @ (NEG) [facility] [place] HEP. B CORE IGM @ (NEG) [facility] [place] [facility] [place] HEPATITIS A AB IGM @ (NEG) [facility] [place] HEPATITIS C AB @ (NEG) [facility] [place] [facility] [place] NOT INFECT ED WITH HCV, UNLESS RECENTINFECTION IS SUSPECTED OR OTHER EVIDENCEEXISTS TO INDICATE HCV INFECTION. ID Date Data Source [id number] 12/13/2020 08:48:30 PM EDT Lab [place] [facility] [place] Name Value Range Interpretation Code Description Data Morena rce(s) Supporting Document(s) HEP B CORE AB TOTAL @ (NEG) [facility] [place] ID Date Data Source [id number] 12/13/2020 07:57:54 PM EDT [facility] [place] [facility] [place] Name Value Range Interpretation Code Description Data Morena rce(s) Supporting Document(s) CHOLESTEROL @ 107 mg/dL (0-200) [facility] [place] [facility] [place] TRIGLYCERIDE @ 170 mg/dL (30-200) [facility] [place] [facility] [place] HDL CHOLESTEROL @ 30 mg/dL (>40) L [facility] [place] [facility] [place] PER NCEP ATP III GUIDELINES:RESULTS LOWE R THAN 40 MG/DL ARE SUGGESTIVEOF INCREASED RISK FOR CORONARY ARTERYDISEASE. RESULTS > OR = TO 60 MG/DL ARECONSIDERED A NEGATIVE RISK FACTOR. CHOL/HDL RATIO 3.6 RATIO [facility] [place] [facility] [place] INTERPRETATION OF CHOL-HDL RATIO CHD RISK FEMALE MALEVERY HIGH >8.3 >14.3HIGH 5.6- 8.3 6.7- 14.3AVERAGE 3.7- 5.6 4.0- 6.7BELOW AVERAGE 2.5- 3.7 2.7- 4.0PROTECTED <2.5 <2.7 LDL CHOL (CALC) 43 mg/dL (<130) [facility] [place] [facility] [place] PER NCEP ATP III GUIDELINES: OPTIMAL < 100 NEAR OPTIMAL 100 - 129BORDERLINE HIGH 130 - 159 HIGH 160 - 189 VERY HIGH > 189 ID Date Data Source [id number] 12/13/2020 07:17:50 PM EDT [facility] [place] [facility] [place] Name Value Range Interpretation Code Description Data Morena rce(s) Supporting Document(s) TROPONIN I 5.89 ng/mL (<0.05) H [facility] [place] [facility] [place] Less than 0.05: Myocardial injury unlike lyGreater than or equal to 0.05: Highly suggestive of myocardial injuryCorrelation with rise and/or fall ofserial troponins, clinical symptomsand ECG changes is necessary.ALERTED CRITICAL RESULT SO[place] ([id number]) [place] [address] ON 12.13.20 AT 18:46 [place] [id number] ID Date Data Source [id number] 12/13/2020 06:02:25 PM EDT [facility] [place] [facility] [place] Name Value Range Interpretation Code Description Data Morena rce(s) Supporting Document(s) NT PRO BNP 03944 pg/mL (0-125) H [facility] [place] [facility] [place] ID Date Data Source [id number] 12/13/2020 06:02:25 PM EDT [facility] [place] [facility] [place] Name Value Range Interpretation Code Description Data Morena rce(s) Supporting Document(s) TSH,ULTRASENSITIVE @ 1.779 mIU/L (0.360-4.170) [facility] [place] [facility] [place] PERFORMED AT [address] [place] [address] [place] [address] ID Date Data Source [id number] 12/13/2020 06:02:25 PM EDT [facility] [place] [facility] [place] Name Value Range Interpretation Code Description Data Morena rce(s) Supporting Document(s) SODIUM 133 mmol/L (136-145) L [facility] [place] [facility] [place] POTASSIUM 5.2 mmol/L (3.6-5.2) [facility] [place] [facility] [place] CHLORIDE 100 mmol/L (100-108) [facility] [place] [facility] [place] CO2 21 mmol/L (22-31) L [facility] [place] [facility] [place] ANION GAP 12 mmol/L (7-16) [facility] [place] [facility] [place] UREA NITROGEN 60 mg/dL (7-24) H [facility] [place] [facility] [place] CREATININE 4.30 mg/dL (0.80-1.30) H [facility] [place] [facility] [place] BUN/CREAT RATIO 14.0 RATIO (10.0-20.0) [facility] [place] GLUCOSE 92 mg/dL (70-99) [facility] [place] [facility] [place] CALCIUM 9.8 mg/dL (8.4-10.2) [facility] [place] [facility] [place] TOTAL PROTEIN 6.9 g/dL (6.4-8.2) [facility] [place] [facility] [place] ALBUMIN 3.7 g/dL (3.5-4.6) [facility] [place] [facility] [place] GLOBULIN 3.2 g/dL (2.7-4.3) [facility] [place] [facility] [place] ALB/GLOB RATIO 1.2 RATIO [facility] [place] [facility] [place] ALKALINE PHOSPHATASE 52 U/L (45-117) [facility] [place] BILIRUBIN,TOTAL 0.7 mg/dL (0.0-1.0) [facility] [place] [facility] [place] PLEASE NOTE:Total bilirubin results may be falselyelevated in patients taking Eltrombopag. AST (SGOT) 7665 U/L (11-39) H [facility] [place] [facility] [place] ALT (SGPT) 6369 U/L (12-78) H [facility] [place] [facility] [place] GFR 14 ml/min/1.73m2 (>59) L Lab [place] [facility] [place] GFR ( AMER) 17 ml/min/1.73m2 (>59) L [facility] [place] [facility] [place] GFR INTERPRETATION [facility] [place] --NORMAL KIDNEY FUNCTION OR MILD DISEASE - GFR >OR= 60CHRONIC KIDNEY DISEASE - GFR 15 - 59RENAL FAILURE - GFR <15 Est. GFR calculation based on the MDRDstudy equation, which assumes a steadystate for creatinine. Est. GFR should notbe used for medication dosing. ID Date Data Source [id number] 12/13/2020 05:44:07 PM EDT Lab [place] [facility] [place] Name Value Range Interpretation Code Description Data Morena rce(s) Supporting Document(s) PHOSPHORUS 7.2 mg/dL (2.5-4.5) H Lab [place] [facility] [place] ID Date Data Source [id number] 12/13/2020 05:44:07 PM EDT Lab [facility] [place] Name Value Range Interpretation Code Description Data Morena rce(s) Supporting Document(s) MAGNESIUM 2.0 mg/dL (1.7-2.4) [facility] [place] [facility] [place] ID Date Data Source [id number] 12/13/2020 05:44:07 PM EDT [facility] [place] [facility] [place] Name Value Range Interpretation Code Description Data Morena rce(s) Supporting Document(s) ETHANOL <3 mg/dL (0-3) [facility] [place] [facility] [place] ID Date Data Source [id number] 12/13/2020 05:37:26 PM EDT [facility] [place] [facility] [place] Name Value Range Interpretation Code Description Data Morena rce(s) Supporting Document(s) HEMOGLOBIN A1C @ 6.7 % (4.0-6.0) H Lab [place] Performed using Siemens Holgate immunoassa y.Care must be taken when interpreting [id number] in patients with a hemoglobin variantor decreased erythrocyte lifespan. Values 5.7 - 6.4% suggest prediabetes.Values >=6.5% are diagnostic for diabetes.REFERENCE: DIABETES CARE 2018: 41(S13-S27).PERFORMED AT [address] [place] [address] EST AVERAGE GLUCOSE 146 mg/dL [facility] [place] ID Date Data Source [id number] 12/13/2020 05:30:16 PM EDT [facility] [place] [facility] [place] Name Value Range Interpretation Code Description Data Morena rce(s) Supporting Document(s) APTT 27.6 s (22.0-34.3) [facility] [place] [facility] [place] ID Date Data Source [id number] 12/13/2020 05:30:16 PM EDT [facility] [place] [facility] [place] Name Value Range Interpretation Code Description Data Morena rce(s) Supporting Document(s) PT 16.3 s (9.2-11.9) H [facility] [place] [facility] [place] INR 1.59 [facility] [place] [facility] [place] SUGGESTED THERAPEUTIC RANGES USING INR F ORSTABILIZED ANTICOAGULATED PATIENTS:STANDARD DOSE THERAPY INR 2.0-3.0 DVT, PE, PREVENT DVT OR EMBOLISMHIGH DOSE THERAPY INR 2.5-3.5 PREVENT EMBOLISM FROM MECHANICAL HEART VALVE ID Date Data Source [id number] 12/13/2020 05:13:26 PM EDT [facility] [place] [facility] [place] Name Value Range Interpretation Code Description Data Morena rce(s) Supporting Document(s) WBC 14.4 10*3/uL (4.1-11.0) H [facility] [place] [facility] [place] RBC 4.93 10*6/uL (4.60-6.10) [facility] [place] [facility] [place] HGB 15.9 g/dL (13.5-18.0) [facility] [place] [facility] [place] HCT 46.9 % (41.0-53.0) [facility] [place] [facility] [place] MCV 95.2 fL (80.0-95.0) H [facility] [place] [facility] [place] MCH 32.3 pg (27.0-32.0) H [facility] [place] [facility] [place] MCHC 33.9 g/dL (32.0-36.0) [facility] [place] [facility] [place] RDW 14.5 % (10.5-14.5) [facility] [place] [facility] [place] PLT 126 10*3/uL (150-450) L [facility] [place] [facility] [place] MPV 9.8 fL (7.1-10.7) [facility] [place] [facility] [place] NEUT % 85.3 % (35.0-75.0) H [facility] [place] [facility] [place] LYMPH % 10.5 % (16.0-52.0) L [facility] [place] [facility] [place] MONO % 4.0 % (0.0-8.0) [facility] [place] [facility] [place] EOS % 0.1 % (0.0-5.0) [facility] [place] [facility] [place] BASO % 0.1 % (0.0-4.0) [facility] [place] [facility] [place] NEUT # 12.3 10*3/uL (1.8-7.7) H [facility] [place] [facility] [place] LYMPH # 1.5 10*3/uL (1.2-4.8) [facility] [place] [facility] [place] MONO # 0.6 10*3/uL (0.0-0.8) [facility] [place] [facility] [place] Eosinophils [#/volume] in Blood by Automated count 0.0 10*3/uL (0.0-0 .5) [facility] [place] [facility] [place] BASO # 0.0 10*3/uL (0.0-0.2) [facility] [place] [facility] [place] ID Date Data Source [id number] 12/20/2020 01:41:37 PM EDT [facility] [place] [facility] [place] Name Value Range Interpretation Code Description Data Morena rce(s) Supporting Document(s) PROTEIN,URINE 148 mg/dL [facility] [place] [facility] [place] URINE PROTEIN MAY BE FALSELY ELEVATEDDUR ING TREATMENT WITH AMINOGLYCOSIDESDUE TO METHOD INTERFERENCE. ALBUMIN URINE 35.7 % [facility] [place] [facility] [place] ALPH1 1 URINE 64.3 % [facility] [place] [facility] [place] TOTAL OTHER FRACTIONS ALPHA 2 URINE [facility] [place] [facility] [place] BETA URINE [facility] [place] [facility] [place] GAMMA URINE [facility] [place] [facility] [place] INTERPRETATION: [facility] [place] [facility] [place] MIXED PATTERN PROTEINURIAI.MD HERIBERTO 12/16/20Interpretation performed at[place] [address] ID Date Data Source [id number] 12/13/2020 10:14:50 PM EDT [facility] [place] [facility] [place] Name Value Range Interpretation Code Description Data Morena rce(s) Supporting Document(s) URINE WBC (0-5) [facility] [place] [facility] [place] URINE RBC (0-2) [facility] [place] [facility] [place] EPITHELIAL CELLS 1+ [HPF] [facility] [place] [facility] [place] AMORPHOUS 2+ [HPF] [facility] [place] [facility] [place] COARSE GRAN CAST [facility] [place] [facility] [place] ID Date Data Source [id number] 12/13/2020 08:02:02 PM EDT [facility] [place] [facility] [place] Name Value Range Interpretation Code Description Data Morena rce(s) Supporting Document(s) PROTEIN,URINE 148 mg/dL [facility] [place] [facility] [place] URINE PROTEIN MAY BE FALSELY ELEVATEDDUR ING TREATMENT WITH AMINOGLYCOSIDESDUE TO METHOD INTERFERENCE. CREATININE,URINE 159.00 mg/dL [facility] [place] URINE TP/CR RATIO 0.93 RATIO (0.00-0.20) H [facility] [place] ID Date Data Source [id number] 12/13/2020 08:02:02 PM EDT [facility] [place] [facility] [place] Name Value Range Interpretation Code Description Data Morena rce(s) Supporting Document(s) RANDOM URINE CREAT 159.00 mg/dL [facility] [place] ID Date Data Source [id number] 12/13/2020 08:02:02 PM EDT [facility] [place] [facility] [place] Name Value Range Interpretation Code Description Data Morena rce(s) Supporting Document(s) RANDOM URINE SODIUM 36 mmol/L [facility] [place] RAND URINE POTASSIUM 84.9 mmol/L [facility] [place] RAND. URINE CHLORIDE 20 mmol/L [facility] [place] ID Date Data Source [id number] 12/13/2020 07:49:14 PM EDT [facility] [place] [facility] [place] Name Value Range Interpretation Code Description Data Morena rce(s) Supporting Document(s) COLOR [facility] [place] [facility] [place] APPEARANCE [facility] [place] [facility] [place] SPEC GRAV URINE 1.023 (1.003-1.030) [facility] [place] PH URINE 5.0 (5.0-7.5) [facility] [place] [facility] [place] LEUK ESTERASE (NEG) [facility] [place] [facility] [place] NITRITE URINE (NEG) [facility] [place] [facility] [place] PROTEIN URINE 1+ (NEG) A [facility] [place] [facility] [place] GLUCOSE URINE 2+ (NEG) A [facility] [place] [facility] [place] KETONE URINE (NEG) A [facility] [place] [facility] [place] UROBILINOGEN 0.2 mg/dL (0-1.0) [facility] [place] [facility] [place] BILIRUBIN URINE 1+ (NEG) A [facility] [place] INTERFERING SUBSTANCES MAY CAUSE FALSEPO SITIVE BILIRUBIN, WHICH HAS BEENSHOWN TO BE CLINICALLY INSIGNIFICANT.CORRELATE WITH OTHER TESTING. BLOOD/HGB URINE 2+ (NEG) A [facility] [place] [facility] [place] ID Date Data Source [id number] 12/13/2020 09:32:00 AM EDT [facility] [place] Name Value Range Interpretation Code Description Data Morena rce(s) Supporting Document(s) Magnesium [Mass/volume] in Serum or Plasma 1.9 mg/dL 1.8-2.4 [facility] ([facility]) Natriuretic peptide.B prohormone N-Terminal [Mass/volu me] in Serum or Plasma 96624 pg/mL [facility] ([facility]) Lipoprotein lipase [Enzymatic activity/volume] in Serum or P lasma 204 U/L 73-393 [facility] ([facility]) Thyrotropin [Units/volume] in Serum or Plasma 2.450 uIU/ML 0.358-3.74 0 [facility] ([facility]) ID Date Data Source [id number] 12/13/2020 09:32:00 AM EDT [facility] [place] Name Value Range Interpretation Code Description Data Morena rce(s) Supporting Document(s) Glucose, Fasting 150 mg/dL 70-100 [facility] Glomerular Filtration Rate 12.9 [facility] ([facility]) <content>Units are mL/min/1.73 m2</content>
<content></content>
<content>Chronic Kidney Disease Staging per NKF:</content>
<content></content>
<content>Stage I & II GFR >=60 Normal to Mildly Decreased</content>
<content>Stage III GFR 30- 59 Moderately Decreased</content>
<content>Stage IV GFR 15-29 Severely Decreased</content>
<content>Stage V GFR <15 Very Little GFR Left</content>
<content>ESRD GFR <15 on RECOVERY UNIT OPERATOR</content>
<content></content> Creatinine For GFR 4.94 mg/dL 0.70-1.30 [facility] ([facility]) Blood Urea Nitrogen 58 mg/dL 7-18 [facility] ([facility] Chloride Level 97 meq/L 98-107 [facility] Potassium Serum 6.5 meq/L 3.5-5.1 Above upper panic limits [facility] ([facility]) Sodium Level 133 meq/L 136-145 [facility] Calcium Level 8.8 mg/dL 8.5-10.1 [facility] ([facility]) Anion Gap 15 meq/L 8-16 [facility] Carbon Dioxide Level 21 meq/L 21-32 [facility] ([facility]) ID Date Data Source [id number] 12/13/2020 09:32:00 AM EDT [facility] ([facility]) Name Value Range Interpretation Code Description Data Morena rce(s) Supporting Document(s) Ast/Sgot 5044 U/L 7-37 [facility] Alt/SGPT 5023 U/L 12-78 [facility] Alkaline Phosphatase 49 U/L 45-117 [facility] ([facility]) Bilirubin,Direct 0.4 mg/dL 0.0-0.2 [facility] ([facility]) Bilirubin,Total 0.8 mg/dL 0.2-1.0 [facility] ([facility]) Total Protein 6.7 GM/DL 6.4-8.2 [facility] ([facility]) Albumin/Globulin Ratio 1.0 [facility] ([facility]) Albumin 3.4 GM/DL 3.2-5.2 [facility] ID Date Data Source [id number] 12/13/2020 08:44:00 AM EDT [facility] ([facility]) Name Value Range Interpretation Code Description Data Morena rce(s) Supporting Document(s) Inr 1.92 [facility] ([facility] THERAPUTIC HUMAN INR VALUES INDICATIONS NORMAL RANGES PROPHYLAXIS/TREATMENT OF: VENOUS THROMBOSIS 2.0-3.0 PULMONARY EMBOLISM 2.0-3.0 PREVENTION OF SYSTEMIC EMBOLISM FROM: TISSUE HEART VALVES 2.0-3.0 ACUTE MYOCARDIAL INFARCTION 2.0-3.0 VALVULAR HEART DISEASE 2.0-3.0 ATRIAL FIBRILLATION 2.0-3.0 MECHANICAL VALVES(HIGH RISK) 2.5-3.5 RECURRENT MYOCARDIAL INFARCTION 2.5-3.5 Prothrombin Time 22.4 s 12.7-14.5 [facility] ([facility]) ID Date Data Source [id number] 12/13/2020 08:40:00 AM EDT [facility] Name Value Range Interpretation Code Description Data Morena rce(s) Supporting Document(s) SARS coronavirus 2 RNA [Presence] in Res piratory specimen by VICKEY with probe detection NEGATIVE [facility] This lab was ordered by [facility] a nd reported by [facility]. ID Date Data Source [id number] 07/27/2020 03:50:00 PM EDT [facility] [place] Name Value Range Interpretation Code Description Data Morena rce(s) Supporting Document(s) Hemoglobin A1c/Hemoglobin.total in Blood 8.5 [facility] ([facility]) ID Date Data Source [id number] 07/27/2020 03:50:00 PM EDT [facility] [place] Name Value Range Interpretation Code Description Data Morena rce(s) Supporting Document(s) Triglycerides 297 [facility] ([facility]) HDL 27 [facility] Cholesterol 117 [facility] ([facility]) Chol/HDL Ratio 4.333 [facility] ([facility]) Cholesterol in LDL [Mass/volume] in Serum or Plasma by calculation 31 [facility] ([facility]) ID Date Data Source [id number] 07/21/2020 04:19:00 PM EDT [facility] [place] Name Value Range Interpretation Code Description Data Morena rce(s) Supporting Document(s) Troponin I.cardiac [Mass/volume] in Serum or Plasma 0.13 [facility] ([facility]) ID Date Data Source [id number] 07/21/2020 04:19:00 PM EDT [facility] Name Value Range Interpretation Code Description Data Morena rce(s) Supporting Document(s) Troponin I.cardiac [Mass/volume] in Serum or Plasma 0.11 [facility] ([facility]) ID Date Data Source [id number] 07/21/2020 03:32:00 PM EDT [facility] [place] Name Value Range Interpretation Code Description Data Morena rce(s) Supporting Document(s) White Blood Count 12.9 5.0-10.0 MEDENT ([facility]) Red Blood Count 5.50 4.00-5.40 MEDENT ([facility]) Hematocrit 52.3 MEDENT ([facility]) Platelets 214 172-450 MEDENT (Cardiology [facility]) Hemoglobin 17.9 MEDENT ([facility]) ID Date Data Source [id number] 01/06/2020 11:04:00 AM EDT [facility] [place] [place] Value Range Interpretation Code Description Data Morena rce(s) Supporting Document(s) Free T4 1.07 MEDENT ([facility]) Thyroid Stimulating Hormone 2.8000 ME DENT ([facility]) ID Date Data Source [id number] 01/06/2020 11:04:00 AM EDT [facility] [place] [place] Name Value Range Interpretation Code Description Data Morena rce(s) Supporting Document(s) Alanine aminotransferase [Enzymatic activity/volume] in Serum or Pl asma 42 MEDENT ([facility]) Albumin [Mass/volume] in Serum or Plasma 3.9 MEDENT ([facility]) Carbon dioxide, total [Moles/volume] in Serum or Plasma 27 MEDENT ([facility]) Chloride [Moles/volume] in Serum or Plasma 98 MEDENT ([facility]) Calcium [Mass/volume] in Serum or Plasma 9.4 MEDENT ([facility]) Potassium [Moles/volume] in Serum or Plasma 4.8 MEDENT ([facility]) Alkaline phosphatase [Enzymatic activity/volume] in Serum or Plasma 5 7 MEDENT ([facility]) Protein [Mass/volume] in Serum or Plasma 7.5 MED[facility] ([facility]) Sodium 134 MEDENT ([facility]iology [facility]) Aspartate aminotransferase [Enzymatic activity/volume] in Serum or Plasma 24 MEDENT ([facility]) Glucose 142 70-100 [facility] Creatinine For GFR 1.30 MED[facility] ([facility] Urea nitrogen [Mass/volume] in Serum or Plasma 27 MEDENT ([facility]) ID Date Data Source [id number] 01/06/2020 11:04:00 AM EDT MEDENT ([facility]) Name Value Range Interpretation Code Description Data Morena rce(s) Supporting Document(s) Triglycerides 427 MEDENT ([facility]) HDL 27 MEDENT ([facility]) Cholesterol 145 MEDENT ([facility]) Cholesterol in LDL [Mass/volume] in Serum or Plasma by calculation 11 8 MEDENT ([facility]) Chol/HDL Ratio 5.370 MEDENT ([facility]iol [facility]) ID Date Data Source [id number] 01/06/2020 11:04:00 AM EDT MEDENT ([facility]) Name Value Range Interpretation Code Description Data Morena rce(s) Supporting Document(s) Hemoglobin A1c/Hemoglobin.total in Blood 7.9 MEDENT ([facility]) ID Date Data Source [id number] 01/06/2020 11:04:00 AM EDT MEDENT ([facility]) Name Value Range Interpretation Code Description Data Morena rce(s) Supporting Document(s) Red Blood Count 4.70 4.30-6.10 MEDENT ([facility]) White Blood Count 11.1 4.0-10.0 MED[facility] ([facility]) Hemoglobin 15.5 MEDENT ([facility]) Hematocrit 46.0 MEDENT ([facility]) Platelets 201 150-450 MEDENT ([facility]) Procedure Social History Code Duration Value Status Description Data Source(s ) Alcohol intake 02/21/2021 12:00:00 AM EST Ex-drinker (finding) comp leted Ex- drinker (finding) [facility] Smoking 01/19/2021 12:00:00 AM EDT Former Smoker completed Former Smoker eCW1 ([facility]) Smoking 12/24/2020 12:00:00 AM EDT Former Smoker completed Former Smoker eCW1 ([facility]) Smoking 12/24/2020 12:00:00 AM EDT Former Smoker completed Former Smoker eCW1 ([facility]) Smoking 12/23/2020 12:00:00 AM EDT Patient is a former smoker completed Patient is a former smoker MEDENT ([facility]) Alcohol intake 12/16/2020 12:00:00 AM EDT Ex-drinker (finding) comp leted Ex- drinker (finding) [facility] Smoking 10/15/2020 12:00:00 AM EDT Former Smoker completed Former Smoker eCW1 ([facility]) Smoking 07/23/2020 12:00:00 AM EDT Former Smoker completed Former Smoker eCW1 ([facility]) Smoking 07/23/2020 12:00:00 AM EDT Former Smoker completed Former Smoker eCW1 ([facility]) Smoking 07/23/2020 12:00:00 AM EDT Former Smoker completed Former Smoker eCW1 ([facility]) Smoking 07/23/2020 12:00:00 AM EDT Former Smoker completed Former Smoker eCW1 ([facility]) Smoking 07/23/2020 12:00:00 AM EDT Former Smoker completed Former Smoker eCW1 ([facility]) Smoking 07/23/2020 12:00:00 AM EDT Former Smoker completed Former Smoker eCW1 ([facility]) Smoking 01/15/2020 12:00:00 AM EDT Former Smoker completed Former Smoker eCW1 ([facility]) Smoking 01/15/2020 12:00:00 AM EDT Former Smoker completed Former Smoker eCW1 ([facility]) Smoking 01/15/2020 12:00:00 AM EDT Former Smoker completed Former Smoker eCW1 ([facility]) Smoking 01/15/2020 12:00:00 AM EDT Former Smoker completed Former Smoker eCW1 ([facility]) Vital Signs ID Date Data Source [id number] Name Value Range Interpretation Code Description Data Source(s) Body weight 199.00 [lb_av] 199.00 [lb_av] KRISTINEN T ([facility]) Body height 68 [in_i] 68 [in_i] MED[facility]ABLO [facility] 5'8" Body mass index (BMI) [Ratio] 30.3 kg/m2 30.3 k g/m2 MEDENT ([facility]) Systolic blood pressure--sitting 148 mm[Hg] 148 mm[Hg] MEDENT ([facility]) Ra, large cuff Diastolic blood pressure--sitting 82 mm[Hg] 82 mm[Hg] MEDENT ([facility]) Ra, large cuff Body weight 199.00 [lb_av] 199.00 [lb_av] KRISTINEN T ([facility]) Systolic blood pressure 114 mm[Hg] 114 mm[Hg] [facility] Diastolic blood pressure 59 mm[Hg] 59 mm[Hg] [facility] Heart rate 54 /min 54 /min [facility] Body temperature 36.39 Hawa 36.39 Hawa [facility] Respiratory rate 16 /min 16 /min [facility] Oxygen saturation in Arterial blood by Pulse oximetry 95 % 95 % [facility] Body height 170.2 cm 170.2 cm [facility] Body weight 90.357 kg 90.357 kg [facility] Body mass index (BMI) [Ratio] 31.20 kg/m2 31.20 kg/m2 [facility] Body weight 203.2 [lb_av] 203.2 [lb_av] eCW1 ([facility]) Body height [in_i] W1 ([facility]) Systolic blood pressure 120 mm[Hg] 120 mm[Hg] e CW1 ([facility]) Diastolic blood pressure 70 mm[Hg] 70 mm[Hg] W1 ([facility]) Body mass index (BMI) [Ratio] 31.82 kg/m2 31.82 kg/m2 eCW1 ([facility]) Heart rate 86 /min 86 /min eCW1 ([facility]) Respiratory rate 18 /min 18 /min eCW1 ([facility]) Body temperature 96.8 [degF] 96.8 [degF] eCW1 ( [facility]) Body weight 198 [lb_av] 198 [lb_av] eCW1 ([facility]) Body weight 89.81 kg 89.81 kg eCW1 ([facility]) Body temperature 97.8 [degF] 97.8 [degF] eCW1 ( [facility]) Body height [in_i] eCW1 ([facility]) Body mass index (BMI) [Ratio] 31.01 kg/m2 31.01 kg/m2 eCW1 ([facility]) Heart rate 96 /min 96 /min eCW1 ([facility]) Systolic blood pressure 140 mm[Hg] 140 mm[Hg] e CW1 ([facility]) Diastolic blood pressure 70 mm[Hg] 70 mm[Hg] eCW1 ([facility]) Respiratory rate 18 /min 18 /min eCW1 ([facility]) Body height 68 [in_i] 68 [in_i] HIMA ([facility]) 5'8" Body weight 198.00 [lb_av] 198.00 [lb_av] MEDEN T ([facility]) Body mass index (BMI) [Ratio] 30.1 kg/m2 30.1 k g/m2 MEDENT ([facility]) Systolic blood pressure--sitting 124 mm[Hg] 124 mm[Hg] MEDENT ([facility]) Ra, medium cuff Diastolic blood pressure--sitting 82 mm[Hg] 82 mm[Hg] MEDENT ([facility]) Ra, medium cuff Systolic blood pressure 104 mm[Hg] 104 mm[Hg] [facility] Diastolic blood pressure 64 mm[Hg] 64 mm[Hg] [facility] Heart rate 63 /min 63 /min [facility] Body temperature 36.89 Hawa 36.89 Hawa [facility] Respiratory rate 18 /min 18 /min [facility] Oxygen saturation in Arterial blood by Pulse oximetry 94 % 94 % [facility] Body weight 90.2 kg 90.2 kg [facility] Post dialysis wt Body mass index (BMI) [Ratio] 30.24 kg/m2 30.24 kg/m2 [facility] Body weight 214 [lb_av] 214 [lb_av] eCW1 ([facility]) Body height [in_i] eCW1 ([facility]) Body mass index (BMI) [Ratio] 33.51 kg/m2 33.51 kg/m2 W1 ([facility]) Respiratory rate 18 /min 18 /min eCW1 ([facility]) Heart rate 78 /min 78 /min eCW1 ([facility]) Body temperature 97.4 [degF] 97.4 [degF] eCW1 ( [facility]) Systolic blood pressure 138 mm[Hg] 138 mm[Hg] e CW1 ([facility]) Diastolic blood pressure 82 mm[Hg] 82 mm[Hg] eCW1 ([facility]) Body mass index (BMI) [Ratio] 32.8 kg/m2 32.8 k g/m2 MEDENT ([facility]) Body weight 216.00 [lb_av] 216.00 [lb_av] MEDEN T ([facility]) Body height 68 [in_i] 68 [in_i] MEDENT ([facility]) 5'8" Systolic blood pressure--sitting 126 mm[Hg] 126 mm[Hg] MEDENT ([facility]) Ra, large cuff Diastolic blood pressure--sitting 82 mm[Hg] 82 mm[Hg] MEDENT ([facility]) Ra, large cuff Body mass index (BMI) [Ratio] 34.48 kg/m2 34.48 kg/m2 eCW1 ([facility]) Body height [in_i] eCW1 ([facility]) Body weight 220.2 [lb_av] 220.2 [lb_av] eCW1 ([facility]) Heart rate 72 /min 72 /min eCW1 ([facility]) Body temperature 97.7 [degF] 97.7 [degF] eCW1 ( [facility]) Systolic blood pressure 110 mm[Hg] 110 mm[Hg] e CW1 ([facility]) Diastolic blood pressure 70 mm[Hg] 70 mm[Hg] eCW1 ([facility]) Respiratory rate 18 /min 18 /min eCW1 ([facility]) Body weight 230.00 [lb_av] 230.00 [lb_av] MEDEN T ([facility]) Heart rate 74 /min 74 /min MEDENT ([facility]) Body height 68 [in_i] 68 [in_i] MEDENT ([facility]) 5'8" Body mass index (BMI) [Ratio] 35.0 kg/m2 35.0 k g/m2 MEDENT ([facility]) Respiratory rate 16 /min 16 /min MEDENT ( [facility]) nonlabored Systolic blood pressure--sitting 128 mm[Hg] 128 mm[Hg] MEDENT ([facility]) Ra, large cuff Diastolic blood pressure--sitting 82 mm[Hg] 82 mm[Hg] MEDENT ([facility]) Ra, large cuff Body weight 238 [lb_av] 238 [lb_av] eCW1 ([facility]) Body height [in_i] eCW1 ([facility]) Body mass index (BMI) [Ratio] 37.27 kg/m2 37.27 kg/m2 eCW1 ([facility]) Heart rate 78 /min 78 /min eCW1 ([facility]) Respiratory rate 18 /min 18 /min eCW1 ([facility]) Body temperature 97.9 [degF] 97.9 [degF] eCW1 ( [facility]) Systolic blood pressure 140 mm[Hg] 140 mm[Hg] e CW1 ([facility]) Diastolic blood pressure 90 mm[Hg] 90 mm[Hg] eCW1 ([facility]) Patient Treatment Plan of Care Planned Activity Planned Date Details Description Data Source (s) 24 HR metoprolol succinate 50 MG Extended Release Oral Tablet 02/22/2021 12:00:00 AM EST [facility] Amiodarone hydrochloride 200 MG Oral Tablet 02/22/2021 12:00:00 AM EST [facility] Albuterol 0.833 MG/ML / Ipratropium [place] 0.167 MG/M L Inhalant Solution 02/21/2021 07:24:50 AM EST [facility] normal saline flush 0.9 % injection 3 mL 02/21/2021 07:00:00 AM EST [facility] normal saline flush 0.9 % injection 3 mL 02/21/2021 07:00:00 AM EST [facility] Albuterol 0.83 MG/ML Inhalant Solution 02/21/2021 06:33:07 AM EST [facility] ondansetron (ZOFRAN) injection 4 mg 02/21/2021 05:55:12 AM EST [facility] Furosemide 40 MG Oral Tablet 12/17/2020 12:00:00 AM EDT [facility] clopidogrel 75 MG Oral Tablet 12/17/2020 12:00:00 AM EDT [facility] Acetaminophen 325 MG Oral Tablet 12/15/2020 12:45:21 PM EDT [facility] Albuterol 0.83 MG/ML Inhalant Solution 12/13/2020 01:19:02 PM EDT [facility] Nitroglycerin 0.4 MG Sublingual Tablet 12/13/2020 01:16:55 PM EDT [facility] Lancets - 07/30/2020 12:00:00 AM EDT e CW1 ([facility]) FreeStyle Lite Test - 07/30/2020 12:00:00 AM EDT eCW1 ([facility]) Blood Glucose Monitor System w/Device 07/30/2020 12:00:00 AM EDT eCW1 ([facility]) Blood Glucose Test - 07/30/2020 12:00:00 AM EDT eCW1 ([facility]) Lancets - 07/30/2020 12:00:00 AM EDT e CW1 ([facility]) FreeStyle Lite Test - 07/30/2020 12:00:00 AM EDT eCW1 ([facility]) Blood Glucose Monitor System w/Device 07/30/2020 12:00:00 AM EDT eCW1 ([facility]) Blood Glucose Test - 07/30/2020 12:00:00 AM EDT eCW1 ([facility]) Lancets - 07/30/2020 12:00:00 AM EDT e CW1 ([facility]) FreeStyle Lite Test - 07/30/2020 12:00:00 AM EDT eCW1 ([facility]) Blood Glucose Monitor System w/Device 07/30/2020 12:00:00 AM EDT eCW1 ([facility]) Blood Glucose Test - 07/30/2020 12:00:00 AM EDT eCW1 ([facility]) Lancets - 07/30/2020 12:00:00 AM EDT e CW1 ([facility]) FreeStyle Lite Test - 07/30/2020 12:00:00 AM EDT eCW1 ([facility]) Blood Glucose Monitor System w/Device 07/30/2020 12:00:00 AM EDT eCW1 ([facility]) Blood Glucose Test - 07/30/2020 12:00:00 AM EDT eCW1 ([facility]) 24 HR Metformin hydrochloride 500 MG Extended Release Oral Tablet 07/28/2020 12:00:00 AM EDT eCW1 ([facility]) 24 HR Metformin hydrochloride 500 MG Extended Release Oral Tablet 07/28/2020 12:00:00 AM EDT eCW1 ([facility]) 24 HR Metformin hydrochloride 500 MG Extended Release Oral Tablet 07/28/2020 12:00:00 AM EDT eCW1 ([facility]) 24 HR Metformin hydrochloride 500 MG Extended Release Oral Tablet 07/28/2020 12:00:00 AM EDT eCW1 ([facility]) 24 HR Metformin hydrochloride 500 MG Extended Release Oral Tablet 07/28/2020 12:00:00 AM EDT eCW1 ([facility]) 24 HR Metformin hydrochloride 500 MG Extended Release Oral Tablet 07/28/2020 12:00:00 AM EDT eCW1 ([facility]) 24 HR Metformin hydrochloride 500 MG Extended Release Oral Tablet 07/28/2020 12:00:00 AM EDT eCW1 ([facility]) Steglatro 15 MG 02/20/2020 12:00:00 AM EST eCW1 ([facility]) Steglatro 15 MG 02/20/2020 12:00:00 AM EST eCW1 ([facility]) montelukast 10 MG Oral Tablet [Singulair] 02/12/2020 12:00:00 AM ES T eCW1 ([facility]) montelukast 10 MG Oral Tablet [Singulair] 02/12/2020 12:00:00 AM ES T eCW1 ([facility]) Steglatro 15 MG 01/28/2020 12:00:00 AM EDT eCW1 ([facility]) Steglatro 15 MG 01/28/2020 12:00:00 AM EDT eCW1 ([facility]) Steglatro 15 MG 01/28/2020 12:00:00 AM EDT eCW1 ([facility]) Steglatro 15 MG 01/28/2020 12:00:00 AM EDT eCW1 ([facility]) OneTouch Ultra II Test Strips 01/15/2020 12:00:00 AM EDT eCW1 ([facility]) OneTouch Ultra II Test Strips 01/15/2020 12:00:00 AM EDT eCW1 ([facility]) OneTouch Ultra II Test Strips 01/15/2020 12:00:00 AM EDT eCW1 ([facility]) empagliflozin 10 MG Oral Tablet [Jardiance] 01/15/2020 12:00:00 AM EDT eCW1 ([facility]) OneTouch Ultra II Test Strips 01/15/2020 12:00:00 AM EDT eCW1 ([facility]) montelukast 10 MG Oral Tablet [Singulair] 01/15/2020 12:00:00 AM ED T eCW1 ([facility]) empagliflozin 10 MG Oral Tablet [Jardiance] 01/15/2020 12:00:00 AM EDT eCW1 ([facility]) OneTouch Ultra II Test Strips 01/15/2020 12:00:00 AM EDT eCW1 ([facility]) montelukast 10 MG Oral Tablet [Singulair] 01/15/2020 12:00:00 AM ED T eCW1 ([facility]) OneTouch Ultra II Test Strips 01/15/2020 12:00:00 AM EDT eCW1 ([facility]) Bisoprolol Fumarate 5 MG Oral Tablet [facility] Ibuprofen 200 MG Oral Tablet [facility] Chlorthalidone 25 MG Oral Tablet [facility] Amlodipine 10 MG Oral Tablet [facility] clopidogrel 75 MG Oral Tablet [facility] PARoxetine (PAXIL) 20 MG tablet [facility] Metformin hydrochloride 850 MG Oral Tablet [facility] Atenolol 50 MG Oral Tablet [facility] Losartan Potassium 50 MG Oral Tablet [facility]
[2021-03-04] MEDS ORDERED: FURO40TA2 (07:46)
[2021-03-04] MEDS ORDERED: CLOP75TA2 (07:46)
--- OUTSIDE RECORDS SUMMARY | 2021-03-04 09:18 | CCD ---
Author Author [facility] Organization [facility] Address Unknown Phone Unavailable Care Team Providers Care Drywaller Name Role Phone Karson HAWLEY MD Unavailable [...] MigeedLeo MD Unavailable Unavaila ble Migeed, Leo Lanidn MD Unavailable Unavaila ble MigeedLeo MD Unavailable [...] is protected by Article 27-F of the [facility] Public Health law. If you continue you may have access to information: Regarding HIV / AIDS; Provided by facilities licensed or operated by the [facility] Office of Mental Health; or Provided by the [facility] Office for People With Developmental Disabilities. If such information is present, then the following [facility] mandated warning applies: This information has [...] law may result in a fine or senior care sentence or both. A general authorization for the release of medical or other information is NOT sufficient authorization for further disc losure. Family History Family Member Name Family Member Gender Family Member Status Date o f Status Description Data Source(s) Unknown Male Problem MEDENT ([facility]) Unknown Male Problem MEDENT ([facility]) [facility] Female Problem MED[facility] ([facility] Unknown Female Problem MED[facility] ([facility] Unknown Female Problem MEDENT ([facility] Encounters Encounter Providers Location Date Indications Data Source(s ) Outpatient Attender: HAIR ADDISON Main Office 02/25/2021 0 8:15:00 AM EST MEDENT ([facility]) Inpatient Attender: LEONID HAWLEY MD Attender: GRISELDA FAITH MDAttender: QUINN ANDRES MDAdmitter: QUINN ANDRES MDConsultant: Mushtaq Pruitt MD [id number] 02/21/2021 05:48:00 AM EST - 02/22/2021 12:37:00 PM EST [facility] Patient discharged. Out[place] [address] [facility] [place] [address] 01/19/2021 12:00:00 AM EDT eCW1 ([facility]) Unknown [address] [facility] [place] [address] 12/31/2020 12:00:00 AM EDT eCW1 ([facility]) Outpatient [address] [facility] [place] [address] 12/24/2020 12:00:00 AM EDT eCW1 ([facility]) Outpatient Attender: HAIR ADDISON Main Office 12/23/2020 1 1:15:00 AM EDT MEDENT ([facility]) Inpatient Attender: Jaswinder Sabillon ramirez: LILIANA DEANAttender: Crystal Neal MDAdmitter: Crystal Neal MDConsultant: Mushtaq Pruitt MD [id number] 12/13/2020 12:38:00 PM EDT - 12/17/2020 10:44:00 PM EDT [facility] Patient discharged. [place] [address] [facility] [place] [address] 10/15/2020 12:00:00 AM EDT eCW1 ([facility]) Unknown [address] [facility] [address] 08/04/2020 12:00:00 AM EDT eCW1 ([facility]) Unknown [address] [facility] [address] 07/30/2020 12:00:00 AM EDT eCW1 ([facility]) Unknown [address] [facility] [address] 07/30/2020 12:00:00 AM EDT eCW1 ([facility]) Outpatient Attender: HAIR ADDISON Main Office 07/29/2020 0 3:30:00 PM EDT MEDENT ([facility]) Unknown [address] [facility] [address] 07/28/2020 12:00:00 AM EDT eCW1 ([facility]) Unknown [address] [facility] [place] [address] 07/28/2020 12:00:00 AM EDT eCW1 ([facility]) Outpatient [address] [facility] [address] 07/23/2020 12:00:00 AM EDT eCW1 ([facility]) Outpatient Attender: HAIR ADDISON Main Office 04/27/2020 0 8:45:00 AM EST MEDENT ([facility]) Unknown [address] [facility] [address] 02/25/2020 12:00:00 AM EST eCW1 ([facility]) Unknown [address] [facility] [address] 02/12/2020 12:00:00 AM EST eCW1 ([facility]) Unknown [address] [facility] [address] 01/19/2020 12:00:00 AM EDT eCW1 ([facility]) Outpatient [address] [facility] [address] 01/15/2020 12:00:00 AM EDT eCW1 ([facility]) Immunizations Vaccine Date Status Description Data Source(s) influenza, recombinant, quadrIvalent,injectable, prese rvative free 01/19/2021 07:56:00 AM EDT completed eCW1 ([facility]) COVID-19 VACC,MRNA(MODERNA)/PF 08/23/2020 12:00:00 AM EDT completed [facility] COVID-19 VACCINE Moderna 08/23/2020 12:00:00 AM EDT completed [facility] Vaccine Series Complete: YESThis Data wa s Submitted to [facility] Via [employer]. COVID-19 VACCINE Moderna 07/25/2020 12:00:00 AM EDT completed [facility] Vaccine Series Complete: NOThis Data was Submitted to [facility] Via [employer]. COVID-19 VACC,MRNA(MODERNA)/PF 07/25/2020 12:00:00 AM EDT completed [facility] influenza, recombinant, quadrIvalent,injectable, prese rvative free 01/15/2020 07:34:00 AM EDT completed eCW1 ([facility]) influenza, recombinant, quadrIvalent,injectable, prese rvative free 01/15/2020 07:34:00 AM EDT completed eCW1 ([facility]) influenza, recombinant, quadrIvalent,injectable, prese rvative free 01/15/2020 07:34:00 AM EDT completed eCW1 ([facility]) influenza, recombinant, quadrIvalent,injectable, prese rvative free 01/15/2020 07:34:00 AM EDT completed eCW1 ([facility]) influenza, recombinant, quadrIvalent,injectable, prese rvative free 01/15/2020 07:34:00 AM EDT completed eCW1 ([facility]) influenza, recombinant, quadrIvalent,injectable, prese rvative free 01/15/2020 07:34:00 AM EDT completed eCW1 ([facility]) influenza, recombinant, quadrIvalent,injectable, prese rvative free 01/15/2020 07:34:00 AM EDT completed eCW1 ([facility]) influenza, recombinant, quadrIvalent,injectable, prese rvative free 01/15/2020 07:34:00 AM EDT completed eCW1 ([facility]) influenza, recombinant, quadrIvalent,injectable, prese rvative free 01/15/2020 07:34:00 AM EDT completed eCW1 ([facility]) influenza, recombinant, quadrIvalent,injectable, prese rvative free 01/15/2020 07:34:00 AM EDT completed eCW1 ([facility]) influenza, recombinant, quadrIvalent,injectable, prese rvative free 01/15/2020 07:34:00 AM EDT completed eCW1 ([facility]) influenza, recombinant, quadrIvalent,injectable, prese rvative free 01/15/2020 07:34:00 AM EDT completed eCW1 ([facility]) influenza, recombinant, quadrIvalent,injectable, prese rvative free 01/15/2020 07:34:00 AM EDT completed eCW1 ([facility]) influenza, recombinant, quadrIvalent,injectable, prese rvative free 01/15/2020 07:34:00 AM EDT completed eCW1 ([facility]) This CVX code allows reporting of a vacc ination when formulation is unknown (for example, when recording a Influenza vaccination when noted on a vaccination card) 01/08/2020 12:00:00 AM EDT completed <td ID="immun [id number]">Influenza (Unspecified)</td><td>01/08/2020</td><td></td> [facility] Medications Medication Brand Name Start Date Product Form Dose Route Admi nistrative Instructions Pharmacy Instructions Status Indications Reaction Description Data Source(s) 24 HR metoprolol succinate 50 MG Extended Release Oral Tablet Metoprolol Succinate ER 02/24/2021 12:00:00 AM EST ORAL active MEDENT ([facility]) Amiodarone hydrochloride 200 MG Oral Tablet Amiodarone HCL 02/24/2021 12:00:00 AM EST ORAL active [facility] ([facility] Amiodarone hydrochloride 200 MG Oral Tablet amiodarone (PACERONE) tablet 400 mg amiodarone (PACERONE) tablet 400 mg 02/22/2021 01:00:00 PM EST 400 mg Oral completed 400 mg, Oral, Once, On Sun04/24/20 at 1300, For 1 dose [facility] Medication administered onsite Amiodarone hydrochloride 200 MG Oral Tablet amiodarone (PACERONE) 200 MG tablet amiodarone (PACERONE) 200 MG tablet 02/22/2021 12:00:00 AM EST 400 mg Oral active Take 2 tablets ( 400 mg total) by mouth 2 (two) times a day for 14 days [facility] 50 mg 02/22/2021 12:00:00 AM EST tablet extended release 24 hr 30 TAKE ONE TABLET BY MOUTH AT NIGHTLY TAKE ONE TABLET BY MOUTH AT NIGHTLY SOLD: 02/22/2021 [facility] Amiodarone hydrochloride 200 MG Oral Tablet [...] tablet (50 mg total) by mouth nightly [facility] 24 HR metoprolol succinate 50 MG Extende d Release Oral Tablet metoprolol succinate (TOPROL-XL) 24 hr tablet 50 mg metoprolol succinate (TOPROL-XL) 24 hr tablet 50 mg 02/21/2021 09:00:00 PM EST 50 mg Oral activ e 50 mg, Oral, Nightly, First dose on Sun02/21/21 at 2100 [facility] Medication administered onsite montelukast 10 MG Oral Tablet montelukast (SINGULAIR) tablet 10 mg montelukast (SINGULAIR) tablet 10 mg 02/21/2021 09:00:00 PM EST 10 mg Oral active 10 mg, Oral, Nightly, First dose on Sun02/21/21 at 2100 [facility] Medication administered onsite atorvastatin 80 MG Oral Tablet atorvastatin (LIPITOR) tablet 80 mg atorvastatin (LIPITOR) tablet 80 mg 02/21/2021 09:00:00 PM EST 80 mg Oral active 80 mg, Oral, Nightly, First dose on Sun02/21/21 at 2100 [facility] Medication administered onsite perflutren lipid microsphere (DEFINredealize) 8.476 mg in 10 mL NS IV drug or medication 02/21/2021 12:26:20 PM EST mL Intravenous co mpleted 2-10 mL, Intravenous, Once as needed, to be used when clinically necessary, Starting on Sun02/21/21 at 1226, For 1 dose
To be given with radiation / chemistry technician at bedside for exam 1. Activate in VIALMIX agitator for 45 seconds 2. Withdraw 1.3 ml of activated perflutren suspension and dilute in 8.7 ml of 0.9% NS (Total volume = 10 ml) 3. Inject 2 ml slowly over 30 seconds. Repeat in 2 ml aliquots as needed. DO NOT EXCEED 10 ML TOTAL DOSE!
[facility] Medication administered onsite clopidogrel 75 MG Oral Tablet clopidogrel (PLAVIX) tab let 75 mg clopidogrel (PLAVIX) tablet 75 mg 02/21/2021 09:00:00 AM EST 75 mg Oral active 75 mg, Oral, Daily, First dose on Sun02/21/21 at 0900 [facility] Medication administered onsite Aspirin 81 MG Delayed Release Oral Tablet aspirin EC t ablet 81 mg aspirin EC tablet 81 mg 02/21/2021 09:00:00 AM EST 81 mg Oral activ e 81 mg, Oral, Daily, First dose on Sun02/21/21 at 0900 [facility] Medication administered onsite heparin (porcine) injection 5,000 Units [id number] 02/22/20 09:00:00 AM EST 5000 U Subcutaneous active 5,000 Units , Subcutaneous, Every 12 hours (scheduled), First dose on Sun02/21/21 at 0900
If platelet count is less than 100,000 or hematocrit is less than 30, or if there is a 5 point decrease in hematocrit, do not give the dose and call physician/designee.
[facility] Medication administered onsite Insulin Lispro 100 [...] cover POC glucose at 08:00, 12:00, 17:00.
[facility] Medication administered onsite Albuterol 0.833 MG/ML / Ipratropium Brom franck 0.167 MG/ML Inhalant Solution ipratropium-albuterol (DUO-NEB) 0.5-2.5 mg/mL nebulizer solution 3 mL ipratropium-albuterol (DUO-NEB) 0.5-2.5 mg/mL nebulizer solution 3 mL 02/21/2021 07:24:50 AM EST 3 mL Inhalation active 3 mL, Inhalation, Every 6 hours PRN, wheezing, Starting on Sun02/21/21 at 0724 [facility] Medication administered onsite amiodarone HCl 900 mg in dextrose 5 % 500 mL infusion 02/21/2021 07:00:00 AM EST mg/min Intravenous aborted 0.5- 1 mg/min (16.6667-33.3333 mL/hr, rounded to 16.7-33.3 mL/hr), Intravenous, Continuous, Starting on Sun02/21/21 at 0700, Until Sun02/22/21 at 1124, at 16.7-33.3 mL/hr [facility] Medication administered onsite normal saline flush 0.9 % injection 3 mL [id number] 02/21/2021 07:00:00 AM EST 3 mL Intravenous active 3 mL , Intravenous, Every 8 hours (scheduled), First dose on Sun02/21/21 at 0700
flush per protocol, D/C Main IV fluid if appropriate
[facility] Medication administered onsite normal saline flush 0.9 % injection 3 mL [id number] 02/21/2021 07:00:00 AM EST 3 mL Intravenous active 3 mL , Intravenous, Every 8 hours (scheduled), First dose on Sun02/21/21 at 0700
Rapid push positive pressure flushing shall be performed with a 10 cc normal saline syringe to check the PATENCY of a PIV site prior to any infusion therapy initiation unless resistance is met.
[facility] Medication administered onsite Albuterol 0.83 MG/ML Inhalant Solution a lbuterol (PROVENTIL) nebulizer solution 2.5 mg albuterol (PROVENTIL) nebulizer solution 2.5 mg 2020 06:33:07 AM EST 2.5 mg active 2.5 mg, Nebulization, RT every 6 hours as needed, wheezing, Starting on Sun02/21/21 at 0633 [facility] Medication administered onsite ondansetron (ZOFRAN) injection 4 mg [id number] 02/21/2021 05:55:1 2 AM EST 4 mg Intravenous active 4 mg, In travenous, Every 6 hours PRN, nausea, vomiting, Starting on Sun02/21/21 at 0555 [facility] Medication administered onsite 81 mg 02/21/2021 12:00:00 [...] AM EDT completed MEDENT ([facility]) Furosemide 40 MG Oral Tablet Furosemide 12/22/2020 12:00:00 AM EDT ORAL active [facility] ([facility]) clopidogrel 75 MG Oral Tablet Clopidogrel Bisulfate 12/22/2020 1 2:00:00 AM EDT ORAL active MEDENT ( [facility]) Metformin hydrochloride 500 MG Oral Tablet Metformin HCL 12/22/2020 12:00:00 AM EDT ORAL active [facility] ([facility]) 40 mg 12/18/2020 12:00:00 AM EDT tablet 60 TAKE ONE TABLET BY MOUTH TWICE A DAY TAKE ONE TABLET BY MOUTH TWICE A DAY SOLD: 12/18/2020 [facility] 75 mg 12/18/2020 12:00:00 AM EDT tablet 30 TAKE ONE TABLET BY MOUTH EVERY DAY TAKE ONE TABLET BY MOUTH EVERY DAY SOLD: 12/18/2020 [facility] lidocaine 1 % injection [id number] 12/17/2020 05:16:56 PM EDT active As needed, Starting on Sun at 1716, Intra-Procedure [facility] Medication administered onsite Cefazolin 1000 MG Injection ceFAZolin (ANCEF) injectio n ceFAZolin (ANCEF) injection 12/17/2020 05:05:00 PM EDT active As needed, Starting on Sun12/17/20 at 1705, Intra-Procedure [facility] Medication administered onsite Furosemide 40 MG Oral Tablet furosemide (LASIX) tablet 40 mg furosemide (LASIX) tablet 40 mg 12/17/2020 05:00:00 PM EDT 40 mg Oral activ e 40 mg, Oral, LOOPBID, First dose on Sun12/17/20 at 1700 [facility] Medication administered onsite clopidogrel 75 MG Oral Tablet clopidogrel (PLAVIX) 75 MG tablet clopidogrel (PLAVIX) 75 MG tablet 12/17/2020 12:00:00 AM EDT 75 mg Oral active Take 1 tablet (75 mg total) by mouth daily [facility] Furosemide 40 MG Oral Tablet furosemide (LASIX) 40 MG tablet furosemide (LASIX) 40 MG tablet 12/17/2020 12:00:00 AM EDT 40 mg Oral activ e Take 1 tablet (40 mg total) by mouth Twice Daily for Loop Diuretics [facility] iopamidol (ISOVUE-370) 76 % [id number] 12/15/2020 05:24:15 PM EDT active As needed, Starting on Sun12/15/20 at 1724, [facility] Medication administered onsite 1 ML heparin sodium, porcine 1000 UNT/ML Injection hep quentin (porcine) injection heparin (porcine) injection 12/15/2020 05:19:28 PM EDT active As needed, Starting on Sun12/15/20 at 1719, Intra-Procedure [facility] Medication administered onsite 4 ML Verapamil hydrochloride 2.5 MG/ML Injection verap [place] (ISOPTIN) injection verapamil (ISOPTIN) injection 12/15/2020 05:19:13 PM EDT active As needed, Starting on Sun12/15/20 at 1719, Intra-Procedure [facility] Medication administered onsite lidocaine 1 % injection [id number] 12/15/2020 05:17:03 PM EDT active As needed, Starting on Sun 1 at 1717, Intra-Procedure [facility] Medication administered onsite 2 ML Midazolam 1 MG/ML Injection midazolam (VERSED) in jection midazolam (VERSED) injection 12/15/2020 05:16:45 PM EDT active As needed, Starting on Sun12/15/20 at 1716, Intra-Procedure [facility] Medication administered onsite fentaNYL Citrate (PF) (SUBLIMAZE) injection [id number] 12/15/2020 05:16:30 PM EDT active As neede d, Starting on Sun12/15/20 at 1716, Intra-Procedure [facility] Medication administered onsite normal saline flush 0.9 % injection 3 mL [id number] 12/15/2020 03:00:00 PM EDT 3 mL Intravenous aborted 3 mL , Intravenous, PROTOCOL, First dose on Sun12/15/20 at 1500, Pre-op
flush per protocol, D/C Main IV fluid if appropriate
[facility] Medication administered onsite sodium chloride 0.9% (NS) infusion [id number] 12/15/2020 02:00:00 PM EDT 100 mL/h Intravenous aborted at 100 m L/hr, 100 mL/hr, Intravenous, Continuous, Starting on Sun12/15/20 at 1400, Pre-op
Start two hours prior to scheduled start time
[facility] Medication administered onsite Acetaminophen 325 MG [...] mg from all sources in 24 hours."
[facility] Medication administered onsite Bisoprolol Fumarate 5 MG Oral Tablet bisoprolol (ZEBET A) tablet 2.5 mg bisoprolol (ZEBETA) tablet 2.5 mg 12/15/2020 02:00:00 AM EDT 2.5 mg Oral completed 2.5 mg, Oral, Once, On Sun 1 at 0200, For 1 dose [facility] Medication administered onsite clopidogrel 75 MG Oral Tablet clopidogrel (PLAVIX) tab let 75 mg clopidogrel (PLAVIX) tablet 75 mg 12/14/2020 09:00:00 AM EDT 75 mg Oral active 75 mg, Oral, Daily, First dose on Sun12/14/20 at 0900 [facility] Medication administered onsite Aspirin 81 MG Chewable Tablet aspirin chewable tablet 81 mg aspirin chewable tablet 81 mg 12/14/2020 09:00:00 AM EDT 81 mg Oral activ e 81 mg, Oral, Daily, First dose on Sun12/14/20 at 0900 [facility] Medication administered onsite acetylcysteine (ACETADOTE) 9,460 mg in dextrose 5 % 1,000 mL infusion 12/14/2020 02:00:00 AM EDT 100 mg/kg Intravenous complet ed 9,460 mg (100 mg/kg 94.6 kg), Intravenous, Administer over 16 Hours, Once, On Sun12/14/20 at 0200, For 1 dose [facility] Medication administered onsite acetylcysteine (ACETADOTE) 4,740 mg in dextrose 5 % 500 mL i nfusion 12/13/2020 10:00:00 PM EDT 50 mg/kg Intravenous completed 4,740 mg (rounded from 4,730 mg = 50 mg/kg 94.6 kg), Intravenous, Administer over 4 Hours, Once, On Sun12/13/20 at 2200, For 1 dose [facility] Medication administered onsite montelukast 10 MG Oral Tablet montelukast (SINGULAIR) tablet 10 mg montelukast (SINGULAIR) tablet 10 mg 12/13/2020 09:00:00 PM EDT 10 mg Oral active 10 mg, Oral, Nightly, First dose on Sun12/13/20 at 2100 [facility] Medication administered onsite acetylcysteine (ACETADOTE) 14,200 mg in dextrose 5 % 200 mL infusion 12/13/2020 09:00:00 PM EDT 150 mg/kg Intravenous complet ed 14,200 mg (rounded from 14,190 mg = 150 mg/kg 94.6 kg), Intravenous, Administer over 1 Hours, Once, On Sun12/13/20 at 2100, For 1 dose [facility] Medication administered onsite Insulin [...] cover POC glucose at 08:00, 12:00, 17:00.
[facility] Medication administered onsite normal saline flush 0.9 % injection 3 mL [id number] 12/13/2020 03:00:00 PM EDT 3 mL Intravenous aborted 3 mL , Intravenous, PROTOCOL, First dose on Sun12/13/20 at 1500
flush per protocol, D/C Main IV fluid if appropriate
[facility] Medication administered onsite normal saline flush 0.9 % injection 3 mL [id number] 12/13/2020 02:00:00 PM EDT 3 mL Intravenous active 3 mL , Intravenous, Every 8 hours (scheduled), First dose on Sun12/13/20 at 1400
flush per protocol, D/C Main IV fluid if appropriate
[facility] Medication administered onsite Bisoprolol Fumarate 5 MG Oral Tablet bisoprolol (ZEBET A) tablet 5 mg bisoprolol (ZEBETA) tablet 5 mg 12/13/2020 02:00:00 PM EDT 5 mg Oral active 5 mg, Oral, Daily, First dose on Sun12/13/20 at 1400
Hold for manual SBP < 110, HR < 65
[facility] Medication administered onsite perflutren lipid microsphere (DEFINITY) 8.476 mg in 10 mL NS IV drug or medication 12/13/2020 01:24:55 PM EDT mL Intravenous co mpleted 2-10 mL, Intravenous, Once as needed, to be used when clinically necessary, Starting on Sun12/13/20 at 1324, For 1 dose
To be given with radiation / chemistry technician at bedside for exam 1. Activate in VIALMIX agitator for 45 seconds 2. Withdraw 1.3 ml of activated perflutren suspension and dilute in 8.7 ml of 0.9% NS (Total volume = 10 ml) 3. Inject 2 ml slowly over 30 seconds. Repeat in 2 ml aliquots as needed. DO NOT EXCEED 10 ML TOTAL DOSE!
[facility] Medication administered onsite Albuterol 0.83 MG/ML Inhalant Solution a lbuterol (PROVENTIL) nebulizer solution 2.5 mg albuterol (PROVENTIL) nebulizer solution 2.5 mg 2020 01:19:02 PM EDT 2.5 mg active 2.5 mg, Nebulization, RT 4 times daily as needed, wheezing, Starting on Sun12/13/20 at 1319 [facility] Medication administered onsite Nitroglycerin 0.4 MG Sublingual Tablet n itroglycerin (NITROSTAT) SL tablet 0.4 mg nitroglycerin (NITROSTAT) SL tablet 0.4 mg 12/13/2020 01:16:55 P M EDT 0.4 mg Sublingual active 0.4 mg, S ublingual, Every 5 min PRN, chest pain, Starting on Sun12/13/20 at 1316
May administer up to 3 doses per episode.
[facility] Medication administered onsite 500 ML heparin [...] 1 unit/kg/hr IV58.1 - 87 Therapeutic, No Esmbwa91.1 - 97 Decrease infusion 1 unit/kg/hr IV [...] single port tubing ([employer] Infusion Set ref [id number]). Medication and tubing is to be discarded if infusion off for 4 hours.
[facility] Medication administered onsite 1 ML heparin [...] 30 units/kg IV (Maximum bolus: 5,000 units)
[facility] Medication administered onsite BLOOD SUGAR DIAGNOSTIC [...] AM EDT act helio Lancets - eCW1 ([facility]) Blood Glucose Monitor System w/Device Blood Glucose Monitor System w/Device 07/30/2020 12:00:00 AM EDT active Blood Glucose Monitor System w/Device eCW1 ([facility]) Blood Glucose Test - Blood Glucose Test - 07/30/2020 12:00:00 AM EDT active Blood Glucose Test - eCW1 ([facility]) Blood Glucose Monitor System w/Device Blood Glucose Monitor System w/Device 07/30/2020 12:00:00 AM EDT active Blood Glucose Monitor System w/Device eCW1 ([facility]) Blood Glucose Monitor System w/Device Blood Glucose Monitor System w/Device 07/30/2020 12:00:00 AM EDT active Blood Glucose Monitor System w/Device eCW1 ([facility]) Blood Glucose Test - Blood Glucose Test - 07/30/2020 12:00:00 AM EDT active Blood Glucose Test - eCW1 ([facility]) Lancets - Lancets - 07/30/2020 12:00:00 AM EDT act helio Lancets - eCW1 ([facility]) Blood Glucose Monitor System w/Device Blood Glucose Monitor System w/Device 07/30/2020 12:00:00 AM EDT active Blood Glucose Monitor System w/Device eCW1 ([facility]) FreeStyle Lite Test - FreeStyle Lite Test - 07/30/2020 12:00:00 AM EDT active FreeStyle Lite Test - eCW1 ( [facility]) Blood Glucose Test - Blood Glucose Test - 07/30/2020 12:00:00 AM EDT active Blood Glucose Test - eCW1 ([facility]) Lancets - Lancets - 07/30/2020 12:00:00 AM EDT act helio Lancets - eCW1 ([facility]) Blood Glucose Test - Blood Glucose Test - 07/30/2020 12:00:00 AM EDT active Blood Glucose Test - eCW1 ([facility]) Lancets - Lancets - 07/30/2020 12:00:00 AM EDT act helio Lancets - eCW1 ([facility]) Blood Glucose Test - Blood Glucose Test - 07/30/2020 12:00:00 AM EDT active Blood Glucose Test - eCW1 ([facility]) Lancets - Lancets - 07/30/2020 12:00:00 AM EDT act helio Lancets - eCW1 ([facility]) Blood Glucose Test - Blood Glucose Test - 07/30/2020 12:00:00 AM EDT active Blood Glucose Test - eCW1 ([facility]) Blood Glucose Monitor System w/Device Blood Glucose Monitor System w/Device 07/30/2020 12:00:00 AM EDT active Blood Glucose Monitor System w/Device eCW1 ([facility]) FreeStyle Lite Test - FreeStyle Lite Test - 07/30/2020 12:00:00 AM EDT active FreeStyle Lite Test - eCW1 ( [facility]) FreeStyle Lite Test - FreeStyle Lite Test - 07/30/2020 12:00:00 AM EDT active FreeStyle Lite Test - eCW1 ( [facility]) Blood Glucose Monitor System w/Device Blood Glucose Monitor System w/Device 07/30/2020 12:00:00 AM EDT active Blood Glucose Monitor System w/Device eCW1 ([facility]) Lancets - Lancets - 07/30/2020 12:00:00 AM EDT act helio Lancets - eCW1 ([facility]) FreeStyle Lite Test - FreeStyle Lite Test - 07/30/2020 12:00:00 AM EDT active FreeStyle Lite Test - eCW1 ( [facility]) FreeStyle Lite Test - FreeStyle Lite Test - 07/30/2020 12:00:00 AM EDT active FreeStyle Lite Test - eCW1 ( [facility]) Lancets - Lancets - 07/30/2020 12:00:00 AM EDT act helio Lancets - eCW1 ([facility]) FreeStyle Lite Test - FreeStyle Lite Test - 07/30/2020 12:00:00 AM EDT active FreeStyle Lite Test - eCW1 ( [facility]) Lancets - Lancets - 07/30/2020 12:00:00 AM EDT act helio Lancets - eCW1 ([facility]) FreeStyle Lite Test - FreeStyle Lite Test - 07/30/2020 12:00:00 AM EDT active FreeStyle Lite Test - eCW1 ( [facility]) FreeStyle Lite Test - FreeStyle Lite Test - 07/30/2020 12:00:00 AM EDT active FreeStyle Lite Test - eCW1 ( [facility]) Blood Glucose Test - Blood Glucose Test - 07/30/2020 12:00:00 AM EDT active Blood Glucose Test - eCW1 ([facility]) Blood Glucose Monitor System w/Device Blood Glucose Monitor System w/Device 07/30/2020 12:00:00 AM EDT active Blood Glucose Monitor System w/Device eCW1 ([facility]) Blood Glucose Monitor System w/Device Blood Glucose Monitor System w/Device 07/30/2020 12:00:00 AM EDT active Blood Glucose Monitor System w/Device eCW1 ([facility]) Blood Glucose Test - Blood Glucose Test - 07/30/2020 12:00:00 AM EDT active Blood Glucose Test - eCW1 ([facility]) 24 HR Metformin hydrochloride 500 MG [...] EDT ORAL completed MEDENT ([facility]) Bisoprolol Fumarate 5 MG Oral Tablet Bisoprolol Fumarate 12:00:00 AM EDT ORAL active [facility] ([facility]) 24 HR Metformin hydrochloride 500 [...] MetFO RMIN HCl ER 500 MG eCW1 ([facility]) 24 HR Metformin hydrochloride 500 MG Ext ended Release Oral Tablet MetFORMIN HCl ER 500 MG MetFORMIN HCl ER 500 MG 07/28/2020 12:00:00 AM EDT 2.0 {tablet_with_evening_meal} active MetFO RMIN HCl ER 500 MG eCW1 ([facility]) 24 HR Metformin hydrochloride 500 MG Ext ended Release Oral Tablet MetFORMIN HCl ER 500 MG MetFORMIN HCl ER 500 MG 07/28/2020 12:00:00 AM EDT 2.0 {tablet_with_evening_meal} active MetFO RMIN HCl ER 500 MG eCW1 ([facility]) 24 HR Metformin hydrochloride 500 MG Ext ended Release Oral Tablet MetFORMIN HCl ER 500 MG MetFORMIN HCl ER 500 MG 07/28/2020 12:00:00 AM EDT 2.0 {tablet_with_evening_meal} active MetFO RMIN HCl ER 500 MG eCW1 ([facility]) 24 HR Metformin hydrochloride 500 MG Ext ended Release Oral Tablet metFORMIN HCl ER 500 MG metFORMIN HCl ER 500 MG 07/28/2020 12:00:00 AM EDT 2.0 {tablet_with_evening_meal} active metFO RMIN HCl ER 500 MG eCW1 ([facility]) 24 HR Metformin hydrochloride 500 MG Ext ended Release Oral Tablet MetFORMIN HCl ER 500 MG MetFORMIN HCl ER 500 MG 07/28/2020 12:00:00 AM EDT 2.0 {tablet_with_evening_meal} active MetFO RMIN HCl ER 500 MG eCW1 ([facility]) 24 HR Metformin hydrochloride 500 MG Ext ended Release Oral Tablet MetFORMIN HCl ER 500 MG MetFORMIN HCl ER 500 MG 07/28/2020 12:00:00 AM EDT 2.0 {tablet_with_evening_meal} active MetFO RMIN HCl ER 500 MG eCW1 ([facility]) montelukast 10 MG Oral Tablet [...] ORAL active MEDENT ([facility]) Steglatro Steglatro 04/26/2020 12:00:00 AM EST ORAL act helio MEDENT ([facility]) Metformin hydrochloride 850 MG Oral [...] { tablet} active Steglatro 15 MG eCW1 ([facility]) Steglatro 15 MG Steglatro 15 MG 02/20/2020 12:00:00 AM EST 1.0 { tablet} active Steglatro 15 MG eCW1 ([facility]) montelukast 10 MG Oral Tablet [...] 1.0 {tablet} active Singulair 10 MG eCW1 ([facility]) montelukast 10 MG Oral Tablet [Singulair] Singulair 10 MG Si ngulair 10 MG 02/12/2020 12:00:00 AM EST 1.0 {tablet} active Singulair 10 MG eCW1 ([facility]) 15 mg 01/29/2020 12:00:00 AM [...] { tablet} active Steglatro 15 MG eCW1 ([facility]) Steglatro 15 MG Steglatro 15 MG 01/28/2020 12:00:00 AM EDT 1.0 { tablet} active Steglatro 15 MG eCW1 ([facility]) Steglatro 15 MG Steglatro 15 MG 01/28/2020 12:00:00 AM EDT 1.0 { tablet} active Steglatro 15 MG eCW1 ([facility]) Steglatro 15 MG Steglatro 15 MG 01/28/2020 12:00:00 AM EDT 1.0 { tablet} active Steglatro 15 MG eCW1 ([facility]) montelukast 10 MG Oral Tablet MONTELUKAST SODIUM 01/15/2020 12:0 0:00 AM EDT tablet 30 TAKE ONE TABLET BY MOUTH EVERY D AY TAKE ONE TABLET BY MOUTH EVERY DAY SOLD: 01/15/2020 [facility] 90 mcg/actuation 01/15/2020 12:00:00 AM EDT HFA aerosol inha ler 18 INHALE 2 PUFFS BY MOUTH EVERY 4 HOURS NEEDED INHALE 2 PUFFS BY MOUTH EVERY 4 HOURS NEEDED SOLD: 01/15/2020 [facility] montelukast 10 MG Oral Tablet [Singulair] Singulair 10 MG Si ngulair 10 MG 01/15/2020 12:00:00 AM EDT 1.0 {tablet} active Singulair 10 MG eCW1 ([facility]) OneTouch Ultra II Test Strips UNK 01/15/2020 12:00:00 AM EDT active OneTouch Ultra II Test Strips eCW1 ([facility]) OneTouch Ultra II Test Strips UNK 01/15/2020 12:00:00 AM EDT active OneTouch Ultra II Test Strips eCW1 ([facility]) OneTouch Ultra II Test Strips UNK 01/15/2020 12:00:00 AM EDT active OneTouch Ultra II Test Strips eCW1 ([facility]) OneTouch Ultra II Test Strips UNK 01/15/2020 12:00:00 AM EDT active OneTouch Ultra II Test Strips eCW1 ([facility]) montelukast 10 MG Oral Tablet [Singulair] Singulair 10 MG Si ngulair 10 MG 01/15/2020 12:00:00 AM EDT 1.0 {tablet} active Singulair 10 MG eCW1 ([facility]) 90 mcg/actuation 01/15/2020 12:00:00 AM EDT HFA aerosol inha ler 18 INHALE 2 PUFFS BY MOUTH EVERY 4 HOURS NEEDED INHALE 2 PUFFS BY MOUTH EVERY 4 HOURS NEEDED SOLD: 09/07/2020 [facility] empagliflozin 10 MG Oral Tablet [Jardiance] Jardiance 10 MG Jardiance 10 MG 01/15/2020 12:00:00 AM EDT 1.0 {tablet} active Jardiance 10 MG eCW1 ([facility]) OneTouch Ultra II Test Strips UNK 01/15/2020 12:00:00 AM EDT active OneTouch Ultra II Test Strips eCW1 ([facility]) empagliflozin 10 MG Oral Tablet [Jardiance] Jardiance 10 MG Jardiance 10 MG 01/15/2020 12:00:00 AM EDT 1.0 {tablet} active Jardiance 10 MG eCW1 ([facility]) OneTouch Ultra II Test Strips UNK 01/15/2020 12:00:00 AM EDT active OneTouch Ultra II Test Strips eCW1 ([facility]) BLOOD SUGAR DIAGNOSTIC 01/15/2020 12:00:00 AM [...] BY MOUTH TWICE A DAY SOLD: 03/30/2020 [facility] 50 mg 06/03/2019 12:00:00 AM EST [...] by mouth 2 (two) times a day [facility] Atenolol 50 MG Oral Tablet atenolol (TENORMIN) 50 MG t ablet atenolol (TENORMIN) 50 MG tablet 50 mg Oral aborted Ron e 50 mg by mouth 2 (two) times a day [facility] Metformin hydrochloride 850 MG Oral Tablet metFORMIN ( GLUCOPHAGE) 850 MG tablet metFORMIN (GLUCOPHAGE) 850 MG tablet 850 mg Oral a borted Take 850 mg by mouth daily with breakfast [facility] PARoxetine (PAXIL) 20 MG tablet [id number] 20 mg Oral aborted Take 20 mg by mouth every morning [facility] Bisoprolol Fumarate 5 MG Oral Tablet bisoprolol (ZEBET A) 5 MG tablet bisoprolol (ZEBETA) 5 MG tablet 5 mg Oral aborted Ron e 5 mg by mouth nightly [facility] Amlodipine 10 MG Oral Tablet amLODIPine (NORVASC) 10 M G tablet amLODIPine (NORVASC) 10 MG tablet 10 mg Oral aborted T charla 10 mg by mouth daily [facility] clopidogrel 75 MG Oral Tablet clopidogrel (PLAVIX) 75 MG tablet clopidogrel (PLAVIX) 75 MG tablet 75 mg Oral aborted Ta ke 75 mg by mouth daily [facility] Ibuprofen 200 MG Oral Tablet ibuprofen (ADVIL,MOTRIN) 200 MG tablet ibuprofen (ADVIL,MOTRIN) 200 MG tablet 200 mg Oral aborted Take 200 mg by mouth every 6 (six) hours as needed for pain [facility] Chlorthalidone 25 MG Oral Tablet chlorthalidone (HYGRO TEN) 25 MG tablet chlorthalidone (HYGROTEN) 25 MG tablet 12.5 mg Oral aborted Take 12.5 mg by mouth daily [facility] Insurance Providers Payer name Policy type / Coverage type Policy ID Covered democrat ID Covered democrat's relationship to alvarez Policy Alvarez Plan Information [facility] [id number] Self 1 [id number] [facility] [id number] Self 1 [id number] [facility] Commercial [id number] Self [facility] MEDICAID [id number] Alexandre [id number] [facility] MEDICAID [id number] [facility]-Medicaid [id number] ANSI-Medicaid [id number] [facility] Health Maintenance Organization (HMO) [id number] Self [id number] [facility] Health Maintenance Organization (HMO) [id number] Self [facility]) O [id number] S [id number] SELF PAY UNAVAILABLE UNAVAILA BLE [employer] AMERICHOICE XIX O [id number] 18 [id number] BLUE CROSS BLUE SHIELD-CLINIC [id number] UN COMMUNITY PLAN MCDO [id number] SP [id number] MEDICAID - CLINIC [id number] [facility] COMMUNITY [facility] MCDO [id number] SP [id number] [facility](MCAID) O [id number] S [id number] ANSI-Medicaid [id number] [facility] [id number] Self [id number] Problems, Conditions, and Diagnoses Code Display Name Description Problem Type Effective Dates Data Source(s) I47.2 Ventricular tachycardia Ventricular tachycardia Diagno sis 02/21/2021 05:48:00 AM EST [facility] I25.5 Ischemic cardiomyopathy Ischemic cardiomyopathy Diagno sis 12/13/2020 12:38:00 PM EDT [facility] I24.9 Acute ischemic heart disease, unspecifie d Acute ischemic heart disease, unspecifie Diagnosis 12/13/2020 12:38:00 PM EDT [facility] N17.9 Acute kidney failure, unspecified Acute kidney f ailure, unspecified Diagnosis 12/13/2020 12:38:00 PM EDT [facility] R77.8 Other specified abnormalities of plasma proteins Other specified abnormalities of plasma Diagnosis 12/13/2020 12:38:00 PM EDT [facility] I21.4 Non-ST elevation (NSTEMI) myocardial inf arction Non-ST elevation (NSTEMI) myocardial inf Diagnosis 12/13/2020 12:38:00 PM EDT [facility] I10 Hypertension Hypertension [id number] 02/21/2021 12:00:00 A M EST [facility] I25.10 Coronary artery disease Coronary artery disease [id number] 02/21/2021 12:00:00 AM [facility] Z45.02 Defibrillator discharge Defibrillator discharge [id number] 02/21/2021 12:00:00 AM [facility] I47.2 Paroxysmal ventricular tachycardia Paroxysmal ve ntricular tachycardia Problem 12/23/2020 12:00:00 AM EDT MEDENT ([facility]) Z95.810 Automatic implantable cardiac defibrilla tor in situ Automatic implantable cardiac defibrillator in situ Problem 12/23/2020 12:00:0 0 AM EDT MEDENT ([facility]) I25.5 Ischemic cardiomyopathy Ischemic cardiomyopathy [id number] 12/15/2020 12:00:00 AM EDT [facility] I24.9 Acute coronary syndrome Acute coronary syndrome [id number] 12/15/2020 12:00:00 AM EDT [facility] I45.10 RBBB RBBB [id number] 12/13/2020 12:00:00 AM ED T [facility] R79.89 Elevated LFTs Elevated LFTs [id number] 12/13/2020 12:00:00 AM EDT [facility] N17.9 JOHN (acute kidney injury) JOHN (acute kidney injury) [id number] 12/13/2020 12:00:00 AM EDT [facility] I25.110 Coronary artery disease invo lving [place] coronary artery of [place] heart with unstable angina pectoris Coronary artery disease involving [place] coronary artery of [place] heart with unstable angina pectoris [id number] 12/13/2020 12:00:00 AM EDT [facility] R77.8 Elevated troponin Elevated troponin [id number] 12/13/2020 12:00:00 AM EDT [facility] Z72.0 Tobacco use Tobacco use [id number] 12/13/2020 12:00:00 AM EDT [facility] I10 HTN (hypertension) HTN (hypertension) [id number] 12:00:00 AM EDT [facility] E11.9 DM2 (diabetes mellitus, type 2) DM2 (diabetes mellitus , type 2) [id number] 12/13/2020 12:00:00 AM EDT [facility] J44.9 COPD (chronic obstructive pulmonary dise ase) COPD (chronic obstructive pulmonary disease) [id number] 12/13/2020 12:00:00 AM EDT [facility] I47.2 Ventricular tachycardia Ventricular tachycardia [id number] 12/13/2020 12:00:00 AM EDT [facility] E78.00 [id number] Pure hypercholesterolemia Problem 07/23/2020 12:00:00 AM EDT eCW1 ([facility]) I25.10 [id number] Coronary artery dise ase involving [place] coronary artery of [place] heart without angina pectoris Problem 01/15/2020 12:00:00 AM EDT eCW1 ([facility]) J30.89 [id number] Non-seasonal allergic rhinitis, unspecifi ed trigger Problem 01/15/2020 12:00:00 AM EDT eCW1 ([facility]) Surgeries/Procedures Procedure Description Date Indications Data Source(s) ECG ROUTINE ECG W/LEAST 12 LDS W/I&R 02/25/2021 12:00: 00 AM EST MEDENT ([facility]) OFFICE OUTPATIENT VISIT 25 MINUTES 02/25/2021 12:00:00 AM EST MEDENT ([facility]) GLUC BLD GLUC MNTR DEV CLEARED FDA SPEC HOME USE <td>P OCT GLUCOSE</td><td>Routine</td><td>02/22/2021 7:53 AM EST</td><td></td><td> </td> 02/22/2021 07:53:00 AM EST [facility] BLOOD COUNT COMPLETE AUTOMATED <td>CBC</td><td>Timed</ td><td>02/22/2021 4:20 AM EST</td><td></td><td> </td> 02/22/2021 04:20:00 AM EST [facility] BASIC METABOLIC PANEL CALCIUM TOTAL <td>BASIC METABOLI C PANEL</td><td>Timed</td><td>02/22/2021 4:20 AM EST</td><td></td><td> </td> 02/22/2021 04:20:00 AM EST [facility] ECG ROUTINE ECG W/LEAST 12 LDS TRCG ONLY W/O I&R <td>E CG 12- LEAD</td><td>Routine</td><td>02/22/2021 3:44 AM EST</td><td></td><td></td> 02/22/2021 03:44:39 AM EST [facility] GLUC BLD GLUC MNTR DEV CLEARED FDA SPEC HOME USE <td>P OCT GLUCOSE</td><td>Routine</td><td>02/21/2021 4:02 PM EST</td><td></td><td> </td> 02/21/2021 04:02:00 PM EST [facility] GLUC BLD GLUC MNTR DEV CLEARED FDA SPEC HOME USE <td>P OCT GLUCOSE</td><td>Routine</td><td>02/21/2021 1:18 PM EST</td><td></td><td> </td> 02/21/2021 01:18:00 PM EST [facility] Transthoracic echocardiography with cont rast, or without contrast followed by with contrast, real-time with image documentation (2d), includes m-mode recording, when performed, follow-up or limited study <td>ECHOCARDIOGRAM TRANSTHORACIC LIMITED W/ CONTRAST</td><td>Pending Discharge</td><td>02/21/2021 12:25 PM EST</td><td></td><td> </td> 02/21/2021 12:25:17 PM EST [facility] GLUC BLD GLUC MNTR DEV CLEARED FDA SPEC HOME USE <td>P OCT GLUCOSE</td><td>Routine</td><td>02/21/2021 9:17 AM EST</td><td></td><td> </td> 02/21/2021 09:17:00 AM EST [facility] XR CHEST PORTABLE <td>XR CHEST PORTABLE</td><t d>Routine</td><td>02/21/2021 8:32 AM EST</td><td></td><td> </td> 02/21/2021 08:32:15 AM EST [facility] NT PRO BNP <td>NT PRO BNP</td><td>Routi ne</td><td>02/21/2021 6:41 AM EST</td><td></td><td> </td> 02/21/2021 06:41:00 AM EST [facility] TROPONIN QUANTITATIVE <td>TROPONIN I</td><td>Timed </td><td>02/21/2021 6:41 AM EST</td><td></td><td> </td> 02/21/2021 06:41:00 AM EST [facility] CULTURE BACTERIAL BLOOD AEROBIC W/ID ISOLATES <td>BLOO D CULTURE</td><td>Routine</td><td>02/21/2021 6:41 AM EST</td><td></td><td></td> 02/21/2021 06:41:00 AM EST [facility] CULTURE BACTERIAL BLOOD AEROBIC W/ID ISOLATES <td>BLOO D CULTURE</td><td>Routine</td><td>02/21/2021 6:41 AM EST</td><td></td><td></td> 02/21/2021 06:41:00 AM EST [facility] THROMBOPLASTIN TIME PARTIAL PLASMA/WHOLE BLOOD <td>APTT</td><td>Routine</td><td>02/21/2021 6:41 AM EST</td><td></td><td> </td> 02/21/2021 06:41:00 AM EST [facility] PROTHROMBIN TIME <td>PROTIME-INR</td><td>Rout ine</td><td>02/21/2021 6:41 AM EST</td><td></td><td> </td> 02/21/2021 06:41:00 AM EST [facility] BLOOD COUNT COMPLETE AUTO&AUTO DIFRNTL WBC COUNT <td>C BC AND DIFFERENTIAL</td><td>Routine</td><td>02/21/2021 6:41 AM EST</td><td></td><td> </td> 02/21/2021 06:41:00 AM EST [facility] BLOOD TYPING ABO <td>TYPE AND SCREEN</td><td> Routine</td><td>02/21/2021 6:41 AM EST</td><td></td><td> </td> 02/21/2021 06:41:00 AM EST [facility] THYROID STIMULATING HORMONE TSH <td>TSH</td><td>Routin e</td><td>02/21/2021 6:41 AM EST</td><td></td><td> </td> 02/21/2021 06:41:00 AM EST [facility] MAGNESIUM <td>MAGNESIUM</td><td>Routin e</td><td>02/21/2021 6:41 AM EST</td><td></td><td> </td> 02/21/2021 06:41:00 AM EST [facility] COMPREHENSIVE METABOLIC PANEL <td>COMPREHENSIVE METABO LIC PANEL</td><td>STAT</td><td>02/21/2021 6:41 AM EST</td><td></td><td> </td> 02/21/2021 06:41:00 AM EST [facility] URINE CULTURE HOLD SPECIMEN <td>URINE CULTURE HOLD SPECIMEN</td><td>Routine</td><td>02/21/2021 6:08 AM EST</td><td></td><td> </td> 02/21/2021 06:08:00 AM EST [facility] URNLS DIP STICK/TABLET RGNT AUTO W/O MICROSCOPY <td>UR INALYSIS W/O MICRO</td><td>Routine</td><td>02/21/2021 6:08 AM EST</td><td></td><td> </td> 02/21/2021 06:08:00 AM EST [facility] ECG ROUTINE ECG W/LEAST 12 LDS TRCG ONLY W/O I&R <td>E CG 12- LEAD</td><td>Routine</td><td>02/21/2021 5:57 AM EST</td><td></td><td></td> 02/21/2021 05:57:02 AM EST [facility] Imm: [employer] Quadrivalent 18 years & older 0.5mL IM Influenz a 01/19/2021 12:00:00 AM EDT eCW1 ([facility]) INTERROGATION EVAL F2F 1/DUAL/DEPUTY SHERIFF GENERALIST/BAILIFF LEADS CVDFB 01/07/20 12:00:00 AM EDT MEDENT ([facility]) ECG ROUTINE ECG W/LEAST 12 LDS W/I&R 12/23/2020 12:00: 00 AM EDT [facility] ([facility]) OFFICE OUTPATIENT VISIT 25 MINUTES 12/23/2020 12:00:00 AM EDT [facility] ([facility]) XR CHEST PORTABLE <td>XR CHEST PORTABLE</td><t d>STAT</td><td>12/17/2020 6:56 PM EDT</td><td></td><td> </td> 12/17/2020 06:56:35 PM EDT [facility] GLUC BLD GLUC MNTR DEV CLEARED FDA SPEC HOME USE <td>P OCT GLUCOSE</td><td>Routine</td><td>12/17/2020 6:51 PM EDT</td><td></td><td> </td> 12/17/2020 06:51:00 PM EDT [facility] EP STUDY <td>EP STUDY</td><td>Routine </td><td>12/17/2020 5:32 PM EDT</td><td> Sustained VT (ventricular tachycardia)</td><td> </td> 12/17/2020 05:32:55 PM EDT Sustained VT (ventricular tachycardia) [facility] Sustained VT (ventricular tachycardia) GLUC BLD GLUC MNTR DEV CLEARED FDA SPEC HOME USE <td>P OCT GLUCOSE</td><td>Routine</td><td>12/17/2020 11:47 AM EDT</td><td></td><td> </td> 12/17/2020 11:47:00 AM EDT [facility] GLUC BLD GLUC MNTR DEV CLEARED FDA SPEC HOME USE <td>P OCT GLUCOSE</td><td>Routine</td><td>12/17/2020 9:12 AM EDT</td><td></td><td> </td> 12/17/2020 09:12:00 AM EDT [facility] THROMBOPLASTIN TIME PARTIAL PLASMA/WHOLE BLOOD <td>APTT</td><td>Routine</td><td>12/17/2020 8:00 AM EDT</td><td></td><td> </td> 12/17/2020 08:00:00 AM EDT [facility] Hemodialysis (procedure) <td>HEMODIALYSIS INPATIENT TX</td><td>Routine</td><td>12/17/2020 12:07 AM EDT</td><td></td><td></td> 12/17/2020 12:07:30 AM EDT [facility] THROMBOPLASTIN TIME PARTIAL PLASMA/WHOLE BLOOD <td>APTT</td><td>Routine</td><td>12/17/2020 12:07 AM EDT</td><td></td><td> </td> 12/17/2020 12:07:00 AM EDT [facility] GLUC BLD GLUC MNTR DEV CLEARED FDA SPEC HOME USE <td>P OCT GLUCOSE</td><td>Routine</td><td>12/16/2020 5:55 PM EDT</td><td></td><td> </td> 12/16/2020 05:55:00 PM EDT [facility] THROMBOPLASTIN TIME PARTIAL PLASMA/WHOLE BLOOD <td>APTT</td><td>Routine</td><td>12/16/2020 4:38 PM EDT</td><td></td><td> </td> 12/16/2020 04:38:00 PM EDT [facility] GLUC BLD GLUC MNTR DEV CLEARED FDA SPEC HOME USE <td>P OCT GLUCOSE</td><td>Routine</td><td>12/16/2020 12:02 PM EDT</td><td></td><td> </td> 12/16/2020 12:02:00 PM EDT [facility] KU2 PANEL <td>KU2 PANEL</td><td>STAT</ td><td>12/16/2020 7:44 AM EDT</td><td></td><td> </td> 12/16/2020 07:44:00 AM EDT [facility] BLOOD COUNT COMPLETE AUTOMATED <td>CBC</td><td>STAT</t d><td>12/16/2020 7:44 AM EDT</td><td></td><td> </td> 12/16/2020 07:44:00 AM EDT [facility] PHOSPHORUS INORGANIC <td>PHOSPHORUS</td><td>STAT< /td><td>12/16/2020 7:44 AM EDT</td><td></td><td> </td> 12/16/2020 07:44:00 AM EDT [facility] THROMBOPLASTIN TIME PARTIAL PLASMA/WHOLE BLOOD <td>APTT</td><td>STAT</td><td>12/16/2020 6:28 AM EDT</td><td></td><td> </td> 12/16/2020 06:28:00 AM EDT [facility] THROMBOPLASTIN TIME PARTIAL PLASMA/WHOLE BLOOD <td>APTT</td><td>STAT</td><td>12/15/2020 7:43 PM EDT</td><td></td><td> </td> 12/15/2020 07:43:00 PM EDT [facility] GLUC BLD GLUC MNTR DEV CLEARED FDA SPEC HOME USE <td>P OCT GLUCOSE</td><td>Routine</td><td>12/15/2020 6:25 PM EDT</td><td></td><td> </td> 12/15/2020 06:25:00 PM EDT [facility] CARDIAC CATHETERIZATION <td>CARDIAC CATHETERIZATION</td><td>Routine</td><td>12/15/2020 5:25 PM EDT</td><td> Acute coronary syndrome Sustained VT (ventricular tachycardia) Ischemic cardiomyopathy</td><td> </td> 12/15/2020 05:25:36 PM EDT Ischemic cardiomyopathySustained VT (lainey tricular tachycardia)Acute coronary syndrome [facility] Ischemic cardiomyopathy Sustained VT (ventricular tachycardia) Acute coronary syndrome GLUC BLD GLUC MNTR DEV CLEARED FDA SPEC HOME USE <td>P OCT GLUCOSE</td><td>Routine</td><td>12/15/2020 1:35 PM EDT</td><td></td><td> </td> 12/15/2020 01:35:00 PM EDT [facility] GLUC BLD GLUC MNTR DEV CLEARED FDA SPEC HOME USE <td>P OCT GLUCOSE</td><td>Routine</td><td>12/15/2020 8:47 AM EDT</td><td></td><td> </td> 12/15/2020 08:47:00 AM EDT [facility] KU2 PANEL <td>KU2 PANEL</td><td>STAT</ td><td>12/15/2020 8:15 AM EDT</td><td></td><td> </td> 12/15/2020 08:15:00 AM EDT [facility] BLOOD COUNT COMPLETE AUTOMATED <td>CBC</td><td>STAT</t d><td>12/15/2020 8:15 AM EDT</td><td></td><td> </td> 12/15/2020 08:15:00 AM EDT [facility] PHOSPHORUS INORGANIC <td>PHOSPHORUS</td><td>STAT< /td><td>12/15/2020 8:15 AM EDT</td><td></td><td> </td> 12/15/2020 08:15:00 AM EDT [facility] Hemodialysis (procedure) <td>HEMODIALYSIS INPATIENT TX</td><td>Routine</td><td>12/15/2020 7:08 AM EDT</td><td></td><td></td> 12/15/2020 07:08:46 AM EDT [facility] Hemodialysis (procedure) <td>HEMODIALYSIS INPATIENT TX</td><td>Routine</td><td>12/15/2020 7:08 AM EDT</td><td></td><td></td> 12/15/2020 07:08:46 AM EDT [facility] Hemodialysis (procedure) <td>HEMODIALYSIS INPATIENT TX</td><td>Routine</td><td>12/15/2020 7:08 AM EDT</td><td></td><td></td> 12/15/2020 07:08:46 AM EDT [facility] BILIRUBIN UNCONJ (INDIRECT) <td>BILIRUBIN UNCONJ (INDIRECT)</td><td>STAT</td><td>12/15/2020 5:01 AM EDT</td><td></td><td> </td> 12/15/2020 05:01:00 AM EDT [facility] THROMBOPLASTIN TIME PARTIAL PLASMA/WHOLE BLOOD <td>APTT</td><td>STAT</td><td>12/15/2020 5:01 AM EDT</td><td></td><td> </td> 12/15/2020 05:01:00 AM EDT [facility] BLOOD COUNT COMPLETE AUTOMATED <td>CBC</td><td>STAT</t d><td>12/15/2020 5:01 AM EDT</td><td></td><td> </td> 12/15/2020 05:01:00 AM EDT [facility] MAGNESIUM <td>MAGNESIUM</td><td>STAT</ td><td>12/15/2020 5:01 AM EDT</td><td></td><td> </td> 12/15/2020 05:01:00 AM EDT [facility] BILIRUBIN DIRECT <td>BILIRUBIN, DIRECT</td><t d>STAT</td><td>12/15/2020 5:01 AM EDT</td><td></td><td> </td> 12/15/2020 05:01:00 AM EDT [facility] COMPREHENSIVE METABOLIC PANEL <td>COMPREHENSIVE METABO LIC PANEL</td><td>STAT</td><td>12/15/2020 5:01 AM EDT</td><td></td><td> </td> 12/15/2020 05:01:00 AM EDT [facility] THROMBOPLASTIN TIME PARTIAL PLASMA/WHOLE BLOOD <td>APTT</td><td>STAT</td><td>12/14/2020 6:10 PM EDT</td><td></td><td> </td> 12/14/2020 06:10:00 PM EDT [facility] GLUC BLD GLUC MNTR DEV CLEARED FDA SPEC HOME USE <td>P OCT GLUCOSE</td><td>Routine</td><td>12/14/2020 4:52 PM EDT</td><td></td><td> </td> 12/14/2020 04:52:00 PM EDT [facility] GLUC BLD GLUC MNTR DEV CLEARED FDA SPEC HOME USE <td>P OCT GLUCOSE</td><td>Routine</td><td>12/14/2020 12:30 PM EDT</td><td></td><td> </td> 12/14/2020 12:30:00 PM EDT [facility] GLUC BLD GLUC MNTR DEV CLEARED FDA SPEC HOME USE <td>P OCT GLUCOSE</td><td>Routine</td><td>12/14/2020 9:16 AM EDT</td><td></td><td> </td> 12/14/2020 09:16:00 AM EDT [facility] Transthoracic echocardiography with cont rast, or without contrast followed by with contrast, real-time with image documentation (2d), includes m-mode recording, when performed, complete, with spectral doppler echocardiography, and with color flow doppler echocardiography <td>ECHOCARDIOGRAM TRANSTHORACIC COMPLETE W/ CONTRAST</td><td>Routine</td><td>12/14/2020 8:03 AM EDT</td><td></td><td> </td> 12/14/2020 08:03:02 AM EDT [facility] TROPONIN QUANTITATIVE <td>TROPONIN I</td><td>Timed </td><td>12/14/2020 5:47 AM EDT</td><td></td><td> </td> 12/14/2020 05:47:00 AM EDT [facility] THROMBOPLASTIN TIME PARTIAL PLASMA/WHOLE BLOOD <td>APTT</td><td>Routine</td><td>12/14/2020 5:47 AM EDT</td><td></td><td> </td> 12/14/2020 05:47:00 AM EDT [facility] PROTHROMBIN TIME <td>PROTIME-INR</td><td>Add- On</td><td>12/14/2020 5:47 AM EDT</td><td></td><td> </td> 12/14/2020 05:47:00 AM EDT [facility] BLOOD COUNT COMPLETE AUTOMATED <td>CBC</td><td>Routine </td><td>12/14/2020 5:47 AM EDT</td><td></td><td> </td> 12/14/2020 05:47:00 AM EDT [facility] COMPREHENSIVE METABOLIC PANEL <td>COMPREHENSIVE METABO LIC PANEL</td><td>Timed</td><td>12/14/2020 5:47 AM EDT</td><td></td><td> </td> 12/14/2020 05:47:00 AM EDT [facility] TROPONIN QUANTITATIVE <td>TROPONIN I</td><td>STAT< /td><td>12/14/2020 2:05 AM EDT</td><td></td><td> </td> 12/14/2020 02:05:00 AM EDT [facility] MAGNESIUM <td>MAGNESIUM</td><td>STAT</ td><td>12/14/2020 2:05 AM EDT</td><td></td><td> </td> 12/14/2020 02:05:00 AM EDT [facility] COMPREHENSIVE METABOLIC PANEL <td>COMPREHENSIVE METABO LIC PANEL</td><td>STAT</td><td>12/14/2020 2:05 AM EDT</td><td></td><td> </td> 12/14/2020 02:05:00 AM EDT [facility] THROMBOPLASTIN TIME PARTIAL PLASMA/WHOLE BLOOD <td>APTT</td><td>Routine</td><td>12/14/2020 12:12 AM EDT</td><td></td><td> </td> 12/14/2020 12:12:00 AM EDT [facility] ECG ROUTINE ECG W/LEAST 12 LDS TRCG ONLY W/O I&R <td>E CG 12- LEAD</td><td>STAT</td><td>12/13/2020 10:13 PM EDT</td><td></td><td></td> 12/13/2020 10:13:23 PM EDT [facility] URINE CULTURE HOLD SPECIMEN <td>URINE CULTURE HOLD SPECIMEN</td><td>Routine</td><td>12/13/2020 8:08 PM EDT</td><td></td><td> </td> 12/13/2020 08:08:00 PM EDT [facility] URINE MICROSCOPIC <td>URINE MICROSCOPIC</td><t d>Add-On</td><td>12/13/2020 8:08 PM EDT</td><td></td><td> </td> 12/13/2020 08:08:00 PM EDT [facility] PROTEIN TOTAL XCPT REFRACTOMETRY URINE <td>PROTEIN / C REATININE RATIO, URINE</td><td>Routine</td><td>12/13/2020 8:08 PM EDT</td><td></td><td> </td> 12/13/2020 08:08:00 PM EDT [facility] PROTEIN ELECTROP FXJ&STEFFEN OTH FLUS CONCENTRATION <td>P ROTEIN ELECTROPHORESIS, RANDOM URINE</td><td>Routine</td><td>12/13/2020 8:08 PM EDT</td><td></td><td></td> 12/13/2020 08:08:00 PM EDT [facility] URNLS DIP STICK/TABLET RGNT AUTO W/O MICROSCOPY <td>UR INALYSIS W/O MICRO</td><td>Routine</td><td>12/13/2020 8:08 PM EDT</td><td></td><td> </td> 12/13/2020 08:08:00 PM EDT [facility] COMPLEMENT TOTAL HEMOLYTIC <td>COMPLEMENT ACT TOTAL</td><td>Routine</td><td>12/13/2020 7:10 PM EDT</td><td></td><td> </td> 12/13/2020 07:10:00 PM EDT [facility] FLUORESCENT NONNFCT AGT ANTB SCREEN EA ANTIBODY <td>AN CA VASCULITIS PROF</td><td>Routine</td><td>12/13/2020 7:10 PM EDT</td><td></td><td> </td> 12/13/2020 07:10:00 PM EDT [facility] HEPATITIS C ANTIBODY CONFIRMATORY TEST <td>HEPATITIS C ANTIBODY</td><td>Routine</td><td>12/13/2020 7:10 PM EDT</td><td></td><td> </td> 12/13/2020 07:10:00 PM EDT [facility] ANTINUCLEAR ANTIBODIES BÁRBARA TITER <td>BÁRBARA WITH REFLEX</td><td>Routine</td><td>12/13/2020 7:10 PM EDT</td><td></td><td> </td> 12/13/2020 07:10:00 PM EDT [facility] TROPONIN QUANTITATIVE <td>TROPONIN I</td><td>Add-O n</td><td>12/13/2020 7:10 PM EDT</td><td></td><td> </td> 12/13/2020 07:10:00 PM EDT [facility] NEPHELOMETRY EACH ANALYTE YUKO <td>IMMUNOGLOBULIN FREE LT CHAINS BLOOD</td><td>Routine</td><td>12/13/2020 7:10 PM EDT</td><td></td><td> </td> 12/13/2020 07:10:00 PM EDT [facility] IMMUNOASSAY ANALYTE QUANTITATIVE NOS <td>GLOMERULAR BA SEMENT MEMBRANE IGG</td><td>Routine</td><td>12/13/2020 7:10 PM EDT</td><td></td><td> </td> 12/13/2020 07:10:00 PM EDT [facility] CERULOPLASMIN <td>CERULOPLASMIN</td><td>Ad d-On</td><td>12/13/2020 7:10 PM EDT</td><td></td><td> </td> 12/13/2020 07:10:00 PM EDT [facility] RHEUMATOID FACTOR QUANTITATIVE <td>RHEUMATOID FACTOR</td><td>Routine</td><td>12/13/2020 7:10 PM EDT</td><td></td><td> </td> 12/13/2020 07:10:00 PM EDT [facility] COMPLEMENT ANTIGEN EACH COMPONENT <td>C3 COMPLEMENT</td><td>Routine</td><td>12/13/2020 7:10 PM EDT</td><td></td><td> </td> 12/13/2020 07:10:00 PM EDT [facility] COMPLEMENT ANTIGEN EACH COMPONENT <td>C4 COMPLEMENT</td><td>Routine</td><td>12/13/2020 7:10 PM EDT</td><td></td><td> </td> 12/13/2020 07:10:00 PM EDT [facility] PROTEIN ELECTROPHORETIC FRACTJ&QUANTJ SERUM <td>PROTEI N ELECTROPHORESIS, SERUM</td><td>Routine</td><td>12/13/2020 7:10 PM EDT</td><td></td><td></td> 12/13/2020 07:10:00 PM EDT [facility] ACETAMINOPHEN <td>ACETAMINOPHEN LEVEL</td> <td>Add-On</td><td>12/13/2020 7:10 PM EDT</td><td></td><td> </td> 12/13/2020 07:10:00 PM EDT [facility] CENTRAL LINE INSERTION <td>CENTRAL LINE INSERTION</td><td>Routine</td><td>12/13/2020 7:02 PM EDT</td><td> JOHN (acute kidney injury)</td><td> </td> 12/13/2020 07:02:07 PM EDT JOHN (acute kidney injury) [facility] JOHN (acute kidney injury) XR CHEST PORTABLE <td>XR CHEST PORTABLE</td><t d>STAT</td><td>12/13/2020 6:23 PM EDT</td><td></td><td> </td> 12/13/2020 06:23:48 PM EDT [facility] Hemodialysis (procedure) <td>HEMODIALYSIS INPATIENT TX</td><td>Routine</td><td>12/13/2020 5:08 PM EDT</td><td></td><td></td> 12/13/2020 05:08:39 PM EDT [facility] POC VENOUS BLOOD GAS W LYTES <td>POC VENOUS BLOOD GAS W LYTES</td><td>Routine</td><td>12/13/2020 5:04 PM EDT</td><td></td><td> </td> 12/13/2020 05:04:00 PM EDT [facility] GLUC BLD GLUC MNTR DEV CLEARED FDA SPEC HOME USE <td>P OCT GLUCOSE</td><td>Routine</td><td>12/13/2020 5:04 PM EDT</td><td></td><td> </td> 12/13/2020 05:04:00 PM EDT [facility] DUP-SCAN ARTL FILI ABDL/PEL/SCROT&/RPR ORGN LMTD <td>US ABDOMINAL VEINS LIMITED</td><td>STAT</td><td>12/13/2020 4:55 PM EDT</td><td></td><td> </td> 12/13/2020 04:55:55 PM EDT [facility] US RETROPERITONEAL REAL TIME W/IMAGE COMPLETE <td>US R ENAL KIDNEY BILATERAL</td><td>Routine</td><td>12/13/2020 4:01 PM EDT</td><td></td><td> </td> 12/13/2020 04:01:28 PM EDT [facility] ULTRASOUND ABDOMINAL REAL TIME W/IMAGE LIMITED <td>US RIGHT UPPER QUADRANT</td><td>Routine</td><td>12/13/2020 4:01 PM EDT</td><td></td><td> </td> 12/13/2020 04:01:10 PM EDT [facility] NT PRO BNP <td>NT PRO BNP</td><td>Routi ne</td><td>12/13/2020 3:19 PM EDT</td><td></td><td> </td> 12/13/2020 03:19:00 PM EDT [facility] TROPONIN QUANTITATIVE <td>TROPONIN I</td><td>Routi ne</td><td>12/13/2020 3:19 PM EDT</td><td></td><td> </td> 12/13/2020 03:19:00 PM EDT [facility] ACUTE HEPATITIS PANEL <td>HEPATITIS PANEL, ACUTE</td><td>Routine</td><td>12/13/2020 3:19 PM EDT</td><td></td><td> </td> 12/13/2020 03:19:00 PM EDT [facility] HEPATITIS B CORE ANTIBODY HBCAB TOTAL <td>HEPATITIS B CORE ANTIBODY, TOTAL</td><td>Routine</td><td>12/13/2020 3:19 PM EDT</td><td></td><td> </td> 12/13/2020 03:19:00 PM EDT [facility] HEPATITIS B SURF ANTIBODY HBSAB <td>HEPATITIS B SURFAC E ANTIBODY</td><td>Routine</td><td>12/13/2020 3:19 PM EDT</td><td></td><td> </td> 12/13/2020 03:19:00 PM EDT [facility] THROMBOPLASTIN TIME PARTIAL PLASMA/WHOLE BLOOD <td>APTT</td><td>Routine</td><td>12/13/2020 3:19 PM EDT</td><td></td><td> </td> 12/13/2020 03:19:00 PM EDT [facility] PROTHROMBIN TIME <td>PROTIME-INR</td><td>Rout ine</td><td>12/13/2020 3:19 PM EDT</td><td></td><td> </td> 12/13/2020 03:19:00 PM EDT [facility] BLOOD COUNT COMPLETE AUTO&AUTO DIFRNTL WBC COUNT <td>C BC AND DIFFERENTIAL</td><td>Routine</td><td>12/13/2020 3:19 PM EDT</td><td></td><td> </td> 12/13/2020 03:19:00 PM EDT [facility] THYROID STIMULATING HORMONE TSH <td>TSH</td><td>Routin e</td><td>12/13/2020 3:19 PM EDT</td><td></td><td> </td> 12/13/2020 03:19:00 PM EDT [facility] PHOSPHORUS INORGANIC <td>PHOSPHORUS</td><td>Routi ne</td><td>12/13/2020 3:19 PM EDT</td><td></td><td> </td> 12/13/2020 03:19:00 PM EDT [facility] MAGNESIUM <td>MAGNESIUM</td><td>Routin e</td><td>12/13/2020 3:19 PM EDT</td><td></td><td> </td> 12/13/2020 03:19:00 PM EDT [facility] HEMOGLOBIN GLYCOSYLATED A1C <td>HEMOGLOBIN A1C</td><td>Routine</td><td>12/13/2020 3:19 PM EDT</td><td></td><td> </td> 12/13/2020 03:19:00 PM EDT [facility] ALCOHOL ANY SPECIMEN EXCEPT BREATH <td>ETHANOL</td><td>Routine</td><td>12/13/2020 3:19 PM EDT</td><td></td><td> </td> 12/13/2020 03:19:00 PM EDT [facility] LIPID PANEL <td>LIPID PANEL</td><td>Rout ine</td><td>12/13/2020 3:19 PM EDT</td><td></td><td> </td> 12/13/2020 03:19:00 PM EDT [facility] COMPREHENSIVE METABOLIC PANEL <td>COMPREHENSIVE METABO LIC PANEL</td><td>Routine</td><td>12/13/2020 3:19 PM EDT</td><td></td><td> </td> 12/13/2020 03:19:00 PM EDT [facility] URINE MICROSCOPIC <td>URINE MICROSCOPIC</td><t d>Add-On</td><td>12/13/2020 2:15 PM EDT</td><td></td><td> </td> 12/13/2020 02:15:00 PM EDT [facility] PROTEIN TOTAL XCPT REFRACTOMETRY URINE <td>PROTEIN / C REATININE RATIO, URINE</td><td>Routine</td><td>12/13/2020 2:15 PM EDT</td><td></td><td> </td> 12/13/2020 02:15:00 PM EDT [facility] CHLORIDE URINE <td>URINE ELECTROLYTES</td>< td>Routine</td><td>12/13/2020 2:15 PM EDT</td><td></td><td> </td> 12/13/2020 02:15:00 PM EDT [facility] PROTEIN ELECTROP FXJ&STEFFEN OTH FLUS CONCENTRATION <td>P ROTEIN ELECTROPHORESIS, RANDOM URINE</td><td>Routine</td><td>12/13/2020 2:15 PM EDT</td><td></td><td></td> 12/13/2020 02:15:00 PM EDT [facility] CREATININE OTHER SOURCE <td>CREATININE, URINE, RANDOM</td><td>Routine</td><td>12/13/2020 2:15 PM EDT</td><td></td><td> </td> 12/13/2020 02:15:00 PM EDT [facility] URNLS DIP STICK/TABLET RGNT AUTO W/O MICROSCOPY <td>UR INALYSIS W/O MICRO</td><td>Routine</td><td>12/13/2020 2:15 PM EDT</td><td></td><td> </td> 12/13/2020 02:15:00 PM EDT [facility] ECG ROUTINE ECG W/LEAST 12 LDS W/I&R <td>ECG 12- LEAD</td><td>Routine</td><td>12/13/2020 12:36 PM EDT</td><td></td><td></td> 12/13/2020 12:36:40 PM EDT [facility] ECHO TTHRC R-T 2D W/WOM-MODE COMPL SPEC&COLR DOP 08/03 12:00:00 AM EDT [facility] ([facility]) ECG ROUTINE ECG W/LEAST 12 LDS W/I&R 07/29/2020 12:00: 00 AM EDT [facility] ([facility]) OFFICE OUTPATIENT VISIT 25 MINUTES 07/29/2020 12:00:00 AM EDT [facility] ([facility]) ECG ROUTINE ECG W/LEAST 12 LDS W/I&R 04/27/2020 12:00: 00 AM EST [facility] ([facility]) Immunization: Flublok Quadrivalent (18 years & older) 0.5mL IM (Influenza) 01/15/2020 12:00:00 AM EDT [facility] ([facility]) Results ID Date Data Source [id number] 02/24/2021 05:41:00 PM EST [facility] ([facility]) Name Value Range Interpretation Code Description Data Morena rce(s) Supporting Document(s) White Blood Count 12.2 4.0-10.0 [facility] ([facility] Red Blood Count 5.26 4.30-6.10 [facility] ([facility]) Hemoglobin 16.8 [facility] ([facility]) Platelets 215 150-450 [facility] Hematocrit 50.3 [facility] ([facility]) ID Date Data Source [id number] 02/24/2021 05:41:00 PM EST [facility] Name Value Range Interpretation Code Description Data Morena rce(s) Supporting Document(s) Lipoprotein lipase [Enzymatic activity/volume] in Serum or Plasma 109 [facility] ([facility]) Magnesium Level 2.1 1.8-2.4 [facility] ([facility]) ID Date Data Source [id number] 02/24/2021 05:41:00 PM EST [facility] Name Value Range Interpretation Code Description Data Morena rce(s) Supporting Document(s) Albumin [Mass/volume] in Serum or Plasma 4.4 [facility] ([facility]) Alanine aminotransferase [Enzymatic activity/volume] in Serum or Pl asma 34 [facility] ([facility]) Calcium [Mass/volume] in Serum or Plasma 10.0 [facility] ([facility]) Carbon dioxide, total [Moles/volume] in Serum or Plasma 30 [facility] ([facility]) Chloride [Moles/volume] in Serum or Plasma 99 [facility] ([facility]) Protein [Mass/volume] in Serum or Plasma 8.0 [facility] ([facility]) Alkaline phosphatase [Enzymatic activity/volume] in Serum or Plasma 7 1 [facility] ([facility]) Potassium [Moles/volume] in Serum or Plasma 4.4 [facility] ([facility]) Sodium 138 [facility] Aspartate aminotransferase [Enzymatic activity/volume] in Serum or Plasma 22 [facility] ([facility]) Urea nitrogen [Mass/volume] in Serum or Plasma 15 [facility] ([facility]) Creatinine For GFR 1.21 [facility] ([facility]) Glucose 144 70-100 [facility] ([facility]) ID Date Data Source [id number] 02/24/2021 05:40:00 PM EST [facility] Name Value Range Interpretation Code Description Data Morena rce(s) Supporting Document(s) Troponin Laboratory test result [facility] ([facility]) ID Date Data Source [id number] 02/24/2021 05:40:00 PM EST [facility] Name Value Range Interpretation Code Description Data Morena rce(s) Supporting Document(s) Creatine kinase [Enzymatic activity/volume] in Serum or Plasma 243 [facility] ([facility]MB 2[facility]8 [facility] ID Date Data Source [id number] 02/22/2021 10:47:52 AM EST [facility] INFORMATIONPatient MRN Name Date of Age Gend*PT [id number] Dilan Kirk 1960 60 years M IPPT Location Admission Date/Time Visit ID Attending [id number] 02/21/21 0548 --- Leonid Hawley MD([id number]) EPI ID CSN Admitting Provider [id number] Quinn Andres MD([id number])Physician Discharge Summary Dilan KirkMRN: [id number] date: 02/21/2021dmitting Physician: CLARKE Alfonsoischarge date and [...] RCA withcollaterals and EF of 40% on [facility] of 12/15/2020. History of type 2 diabetes,hypertension, COPD. He was admitted to [facility] December 2020 with ventriculartachycardia and other complicati ons. He underwent successful implantation ofleft-sided single-chamber ICD [facility] on 12/17/2020 for secondaryprevention. He transfers from [facility] with ventriculartachycardia s/p 3 shocks.ICD discharge [...] (chronic obstructive pulmonary disease) Coronary artery disease CODING ASSISTANT RCA Diabetes mellitus Fatty liver History of herniated intervertebral disc Hypertension NV (myocardial infarction) Sinusitis Umbilical herniaResults from last [...] Get Your MedicationsThese medications were sent to [id number] - [place], [place] - [id number] [place] [id number] [place] [address], [facility] [id number] amiodarone 200 MG tablet amiodarone 200 MG tabletDischarged Condition:fairDisposition: Home or Self CareFollow upspcpDr.MigeedTime spent coordinating the discharge more than 30 minutes.Signature: CLARKE Camposate: February 22, 2021Time: 10:44 AM Name Value Range Interpretation Code Description Data Morena rce(s) Supporting Document(s) ID Date Data Source [id number] 02/22/2021 09:21:32 AM EST [facility] Name Value Range Interpretation Code Description Data Morena rce(s) Supporting Document(s) EKG [facility] [id number] jb2 [file] 8S+AtG8Z2Ye2t24/LYszSYok2s1RmhsOtDTo2txkP21Og0wc36E+manager floor/jdfTY9R/DGhBc2sWArXN66nL [file] diNeHYJmQREFAr8Nr550PBAhRIUBObv+HbhihJPehNtgYWXIMEXjYOlAVAXDG6I= ID Date Data Source [id number] 02/22/2021 07:55:19 AM EST [facility] Name Value Range Interpretation Code Description Data Morena rce(s) Supporting Document(s) POC [facility] GLU 151 mg/dL (70-99) H [facility] CLINICAL STAFF ID Date Data Source [id number] 02/22/2021 08:10:41 AM EST [facility] Name Value Range Interpretation Code Description Data Morena rce(s) Supporting Document(s) SODIUM 139 mmol/L (136-145) [facility] POTASSIUM 3.8 mmol/L (3.6-5.2) [facility] CHLORIDE 104 mmol/L (100-108) [facility] CO2 26 mmol/L (22-31) [facility] ANION GAP 9 mmol/L (7-16) [facility] UREA NITROGEN 16 mg/dL (7-24) [facility] CREATININE 1.08 mg/dL (0.80-1.30) [facility] BUN/CREAT RATIO 14.8 RATIO (10.0-20.0) [facility] GLUCOSE 117 mg/dL (70-99) [facility] CALCIUM 8.9 mg/dL (8.4-10.2) [facility] GFR >60 ml/min/1.73m2 (>59) [facility] GFR ( AM) >60 ml/min/1.73m2 (>59) [facility] GFR INTERPRETATION [facility] --NORMAL KIDNEY FUNCTION OR MILD DISEASE - GFR >OR= 60CHRONIC KIDNEY DISEASE - GFR 15 - 59RENAL FAILURE - GFR <15 Est. GFR calculation based on the MDRDstudy equation, which assumes a steadystate for creatinine. Est. GFR should notbe used for medication dosing. ID Date Data Source [id number] 02/22/2021 07:08:05 AM EST [facility] Name Value Range Interpretation Code Description Data Morena rce(s) Supporting Document(s) WBC 10.1 10*3/uL (4.1-11.0) [facility] RBC 4.60 10*6/uL (4.60-6.10) [facility] HGB 15.0 g/dL (13.5-18.0) [facility] HCT 44.3 % (41.0-53.0) [facility] MCV 96.3 fL (80.0-95.0) [facility] MCH 32.7 pg (27.0-32.0) [facility] MCHC 33.9 g/dL (32.0-36.0) [facility] RDW 14.5 % (10.5-14.5) [facility] PLT 164 10*3/uL (150-450) [facility] MPV 9.0 fL (7.1-10.7) [facility] ID Date Data Source [id number] 02/22/2021 02:08:49 AM EST [facility] NT INFORMATIONPatient MRN Name Date of Age Gend*PT [id number] Dilan Kirk 1960 60 years M IPPT Location Admission Date/Time Visit ID Attending [id number] 02/21/21 0548 --- Leonid Hawley MD([id number]) EPI ID CSN Admitting Provider [id number] Quinn Andres MD([id number]) Attestation signed by Quinn Andres MD at [...] PROVIDER REQUESTEDInformant:Current HistoryChief Complaint: [facility] with ventriculartachycardiaHPI:This patient is a 60 years male with medical history of CAD, he has knownchronic occlusion of the RCA with collaterals and EF of 40% on [facility] of 12/15/2020.History of type 2 diabetes, hypertension, COPD. [facility] other [facility]. Heunderwent successful implantation of left-sided single-chamber ICD [employer] on 12/17/2020 for secondary prevention. He transfers from [facility] with ventricular tachycardia s/p 3 shocks.Dilan [...] a thirdICD shock around 1:30 AM.Work-up in [facility] was called.Chest x-ray showed stable nonspecific bilateral perihilar and bibasilarreticulonodular opacities.Blood work showed WBC 12.8, H&H 16.7/49.5, platelets 209, glucose 252,BUN/creatinine 23/1.23 sodium 140, potassium 3.5, magnesium 1.8. The case wasdiscussed with the electrical maintenance man on-call. Patient was given metoprolol sburzagnv64 mg, metoprolol tartrate 5 mg IV, amiodarone 150 mg, and he was started onamiodarone drip. He transferred to [facility] for higher level of care.Dilan Kirk is trying to quit smoking. He presently smokes 1 to 2cigarettes a day. Previously smoked up to 2 packs/day for 30 years. He doesnot drink alcohol at all anymore. He is compliant with his medications.Clinical Esthetician: Dr. Gamboa of Systems:Review of SystemsConstitutional: Negative [...] (chronic obstructive pulmonary disease) Coronary artery disease CODING ASSISTANT RCA Diabetes mellitus Fatty liver History of herniated intervertebral disc Hypertension NV (myocardial infarction) Sinusitis Umbilical herniaPast Surgical History:Procedure [...] Social Gatherings with Friends and Family: Attends [employer] Services: Active Member of Clubs or Organizations: [...] for secondary prevention. He transferred tonight from [facility] with ventricular tachycardia s/p 3 [...] parts of this document, were dictated using [employer] software.A reasonable attempt at proofreading has been made to minimize errors. Pleasecall with any questions or corrections. Name Value Range Interpretation Code Description Data Morena rce(s) Supporting Document(s) ID Date Data Source [id number] 02/21/2021 06:09:50 PM EST [facility] NT INFORMATIONPatient MRN Name Date of Age Gend*PT [id number] Dilan Kirk 1960 60 years M IPPT Location Admission Date/Time Visit ID Attending [id number] 02/21/21 0548 --- Griselda Faith MD([id number]) EPI ID CSN Admitting Provider [id number] Quinn Andres MD([id number])INPATIENT EP CONSULT NOTEPatient Name: Dilan Kirk of : 1960 Age: 60 yearsGender: male Primary Physician: Dov Puentes of Referral: 02/21/2021 PCP PMJHUDIYDH PHYSICIAN: Leo Pruitt M.D.REQUESTING PHYSICIAN: CardiologyREASON FOR REFFERAL: ICD shockHISTORY OF PRESENT ILLNESS:Dilan Kirk is a 60 years male with medical problems of prior NV spSJM ICD cared for by Dr Monte who presents with ICD shock.No recent sx of ischemia or worsening CHFThe EP service was consulted to consider ablationThe history was taken from the patient ,medical recordsFamily was not present during interview.PAST MEDICAL HISTORY:Past Medical History:Diagnosis Date Acute kidney injury Asthma Cardiomegaly COPD (chronic obstructive pulmonary disease) Coronary artery disease CODING ASSISTANT RCA Diabetes mellitus Fatty liver History of herniated intervertebral disc Hypertension NV (myocardial infarction) Sinusitis Umbilical herniaPAST SURGICAL HISTORY:Past [...] normalPERTINENT LABS:Results from last 7 daysLab Units 696945ZGCEAFWTSO g/dL 15.7HEMATOCRIT % 45.6PLATELETS 10*3/uL 178SODIUM mmol/L 140POTASSIUM mmol/L 3.7CHLORIDE mmol/L 107CO2 mmol/L 27BUN mg/dL 19CREATININE mg/dL 1.06GLUCOSE mg/dL 144*CALCIUM mg/dL 8.9DIAGNOSTIC DATA:I personally reviewedEKG: sinus rhythmTelemetry Monitoring:sinusEchocardiogram EF: 35%DEVICE INTERROGATION DATADevice: St Christiano medicalPacing mode: [id number] right ventricular: normal fashionThe patient is not [...] class II congestive heart failure8. Hyperlipidemia, hypertension9. Uhozkdt27. On hemodialysis for acute renal failure via right IJ vein PLAN:1. Medical therapy with amiodarone2. If meds fail then consider RFA3. VICK pt and Franklin Pruitt M.D., [facility] MEXICOClinical Cardiac Mfncqtzleflidauku02/15/2021 3:47 PM Name Value Range Interpretation Code Description Data Morena rce(s) Supporting Document(s) ID Date Data Source [id number] 02/21/2021 05:31:00 PM EST [facility] ([facility]) Name Value Range Interpretation Code Description Data Morena rce(s) Supporting Document(s) Natriuretic peptide.B prohormone N-Terminal [Mass/volu me] in Serum or Plasma 566 [facility] (Government Program Manager s of [facility]) Troponin 0.05 [facility] (Cardiology A ssociates [facility]) Magnesium Level 2.0 [facility] ([facility]) ID Date Data Source [id number] 02/21/2021 04:03:50 PM EST [facility] Name Value Range Interpretation Code Description Data Morena rce(s) Supporting Document(s) POC NOVA GLU 146 mg/dL (70-99) H [facility] [place] [facility] CLINICAL STAFF ID Date Data Source [id number] 02/21/2021 01:20:19 PM EST [facility] Name Value Range Interpretation Code Description Data Morena rce(s) Supporting Document(s) POC NOVA GLU 152 mg/dL (70-99) [facility] [place] [facility] CLINICAL STAFF ID Date Data Source [id number] 02/21/2021 12:37:56 PM EST [facility] Name Value Range Interpretation Code Description Data Morena rce(s) Supporting Document(s) &PDF [facility] CBFJMa1fXpWRMmFw20/ZWTbkIPFxt7JyOAtsMOw8UJrvJZIzU6KftXdsDVmIXdLZZE3XVS4XLIdIQDdB vQ3 [file] ICAgICAgICAgICAgICAgICAgICAgICAgICAgICAgICAgICAgICAgICAgICAgICAgICAgICAgICAgICAg ICAgICAgICAgICAgICAgICAgICAgICANCiAgICAgIC AgICAgICAgICAgICAgICAgICAgICAgICAgICAgICAgICAgICAgICAgICAgICAgICAgICAgICAgICAgIC AgICAgICAgICAgICAgICAgICAgICAgICAgICAgICAgICANCiAgICAgICAgICAgICAgICAgICAgICAgIC AgICAgICAgICAgICAgICAgICAgICAgICAgICAgICAg ICAgICAgICAgICAgICAgICAgICAgICAgICAgICAgICAgICAgICAgICAgICANCiAgICAgICAgICAgICAg ICAgICAgICAgICAgICAgICAgICAgICAgICAgICAgICAgICAgICAgICAgICAgICAgICAgICAgICAgICAg ICAgICAgICAgICAgICAgICAgICAgICAgICANCiAgIC AgICAgICAgICAgICAgICAgICAgICAgICAgICAgICAgICAgICAgICAgICAgICAgICAgICAgICAgICAgIC AgICAgICAgICAgICAgICAgICAgICAgICAgICAgICAgICAgICANCiAgICAgICAgICAgICAgICAgICAgIC AgICAgICAgICAgICAgICAgICAgICAgICAgICAgICAg ICAgICAgICAgICAgICAgICAgICAgICAgICAgICAgICAgICAgICAgICAgICAgICANCiAgICAgICAgICAg ICAgICAgICAgICAgICAgICAgICAgICAgICAgICAgICAgICAgICAgICAgICAgICAgICAgICAgICAgICAg ICAgICAgICAgICAgICAgICAgICAgICAgICAgICANCi AgICAgICAgICAgICAgICAgICAgICAgICAgICAgICAgICAgICAgICAgICAgICAgICAgICAgICAgICAgIC AgICAgICAgICAgICAgICAgICAgICAgICAgICAgICAgICAgICAgICANCiAgICAgICAgICAgICAgICAgIC AgICAgICAgICAgICAgICAgICAgICAgICAgICAgICAg ICAgICAgICAgICAgICAgICAgICAgICAgICAgICAgICAgICAgICAgICAgICAgICAgICANCiAgICAgICAg ICAgICAgICAgICAgICAgICAgICAgICAgICAgICAgICAgICAgICAgICAgICAgICAgICAgICAgICAgICAg ICAgICAgICAgICAgICAgICAgICAgICAgICAgICAgIC ANCjw/fBFrR3bbzODnanN6X1tiQh0LKe9WKZ1ar9AuJGBjPWfwcoUzFbsUQePpAMRgIvwVRhs3MCkfWX 7ThDHtK8RsE1RfCYaxEL2XFJSaLJHgzTGiPTZgZDViOfE3SNViGKguKT2LdHRwZJjpAEQoQCWhWwYwUF GrPB5GLHZbX504pzQqLh0PAu9JDtKaCJ2zam4PLAFg NNXuVxzKUoq4QQgrCF0UiCKvT6SlpKQsy6nCUcJsB5TFCJG2GAQyMr2ZKIAkMhRaWDXrQAjaNO9yEOGt PMDUwYfnatS5TC8LSQ8plaVhBE6QVnJnXv0nIe8ZVmKqC9GqB5CiIRPrNQPNYDomQP3OFNQzUVE5BBNe NCRyVWHWQnHvU81qSS0RY5Twc23iWjY0PPStVxXvWP zfIN38cZotssBtgPJgmVqwZP4VUn0+QTymraNaLraJSbwcJMNPZdMqTGOOLhTeTRCqHMXoHFYvVlD6Ul VsAg2WZOBtJZQiPGScAfWmXZCaWLVhVVvmHFEaLDrxITj4FLOkHFLgOA8RYrJbTSYqWmG6OvBeNEWkBB Qutu1JSPXnICZhCVK0LKZvWLHmCCMyLRiuEZVvCWRv OnhrYIFbHKIaRO9KNfYzQKLfDWW2YdsiNHOtNYSqei3RXEKsFXPkYGE4LwSaLCNsFTNdJZvaJZVfQLM2 KXwzWYWhPSDhJS2CJnFzFCZuJLU1WediAOBbJCWtcj3OKNGyLJGnKxumVFVaHZYcWDGzNDzeLCQwQLO0 GJY8QRJvYQJvAJ1SMpQlAXKdKSk2AmRaEKFaITQjfm 2IUEEbXQTqPHG2AjIkBGPiCEYdUZubLLKhVSS9RlJ4YXSyHMDaOF1GDgAoSWTbRXMxTRReJACbXJEuup 5AQGWsEYAiIjIcFEEoODWuEDNrJJjmJAUdYNEkXwDuUZRlGUAfJR7HGkHiDCFsYAE2MBLwOFUhEWZusy 0ZKRIlOAWzFIAtUsWvYZPmIODoBSbpBMYfWUB7NVO8 QHQaKETzSR7VQrWmNJGiKOEjUQGjGHQbSPGcuf4BHYHiRJDyWPJzLbPmOWEjLPYvYRosEMNjOAZsHLFm ZPYqHRWcAY8ZGyEwXBEvNtR0IJlhGSLlBMXowa0PWPThOAJbNQh4VMJuHBCiKFGlCYiuICTqUOD6SfC5 ZPUrOOVbXR9TYsIcIPLbLrDwQXEhIATzLWVjkz6EPE AmRWQoCFS6LRHnOXEyTNVoFCgeXBCqMSW7JDV5FIPpMCNfOK0KGcYiDOBxNNXjTLSlTCMySTYgmy1WVO IoSIB7CUZuTPFlGZKcWNHeZKpoFYZdZZF3ACe9IHTsRDJmFB6GNxJdNKZpJQV2BiUxAZYqZIPwus1UWG CuMQT2OZcgTNNhODFzSVDjTMzoEYNlRWT4IUDoSBXk TVLkFU5XQsKtDUNoRsDgAGZiKBKwVELatm6ZTFDaEJS2PtgfKQKwVLWpVBAtNKbpTLPbWLttKSa9WAKs PCRvEQ3ZFoRjXPYgFhPvSQWhPSMoBWBkps4SJBMdKLM6IaTwYpUrVVPxTKOwUVg1yyCxoOZfYYf1GH3E U8BbgnXxUVDGIb8Kn933JOVpJAAlPq1ZM7qnBt6rNJ KzDMEAGj7PUMr8LfrvFPN5QoZdLSNmWAQwTpF2PVF7HIVkJvE0AXJ2RQK+HFmiO7BjOZScGKN6YDL0W6 HwFbevRKV4YDJjCbYvICx4Cc0tPNVGTt4+LPzkkKPwgWfbIZVIIlnaWHSfXLimXAIATm7A ID Date Data Source [id number] 02/21/2021 09:18:46 AM EST [facility] Name Value Range Interpretation Code Description Data Morean rce(s) Supporting Document(s) POC NOVA GLU 176 mg/dL (70-99) H [facility] [place] [facility] CLINICAL STAFF ID Date Data Source [id number] 02/21/2021 08:50:26 AM EST [facility] Name Value Range Interpretation Code Description Data Morena rce(s) Supporting Document(s) EKG [facility] QLAUFb8nCxJSWeDuj7LlWgPmGJYgFJ6zegc1Z4K9yBZnM5LqlKPht7xzC5MlB3IsINDlCMHNQK0GnHTi jb2 [file] [facility]+K+6eCHoo/s3JwdFucbo+6NJsrZFSHA7nMTXvWf0VniWzqmFqgoGc07KKw3SxvZqe9i/FCEOB38 [file] RMJGQmIVMJmUvIZEJmEzKdkPmETChkRiFTCplTyKRC CsQxaGU7yAbuOICsUmtOQ5qdYmDKYu6S+YVMMGSGIVMMmWPIJENmGTLNkHmGTDRkpiFTDZlryGRDZhsy 2QM8ucj9HHHqZk2Lq5tiJ6UyNt2QqCvZJLYoZqD6lBg5+8TJxd8PxF1cF/q8Cbgv811tiEOE3VifQO7O TdLyGKo4PNOnstiSLF4zxTFWceLadDcN8DDWnqwkPS z05YaH0tmWSBLDI5d7cgWKYrRJ4x7zGN67staF00ejqGzhzP2qjcn5Fs3yqZMJcgIEiHOABBLfvlPDyR kBHRHvjjMsrYKVPoFIxT0aIQPzT3KDpYPlqGPjY3CRdZzgxKSyB1JAtGepnRXoZ9IPnK0voHEbRGDMaM ZHEeFwASOPlIrB9BKdXcZ8KWs4ViwkkYUrZ82pGKRL hCwH9SOiHwA5PPzEiQ7G1dIiI6N4IRxVzZ0NWiRuC1VMElfLv/e/95yFoc8+393eECfMBDOFmcJMYaYw gvIsGTTrpuSGpgbIJWDgXjrgPtDvTmoddDkNWYRvQyIO5my3Rgjyl6aIjEVpIPW6+Ff76Abjlyzrl4aw sfhFnigxX6ZhOkNJpPgnG8TzFoGzrKdgX3wuKnSudM qwR4wfViY24Z1sQx8/xMheJvtFdi+nJT/oPdEldVB4dwKsyf1Umx/OzZvpq1/OzjffPT/9dnN2+s30y/ MXL54//uNtglOE0SKxwzFGkRv7s75/B30BhgcD2tdI4f3Uoz8W8hD05SfHiRJKNQaw7t6w1GTtX+AFx7 /iXO9im844ycusJ05O8532cdt06/bF0oX8Oe1W+dlP m+dwW4M7yvTx71zDCPejjDx1i7M8s9V1ugQgx8K5cJKp79sE9Y625Puq217+fH/5Zvrbl+mvF3/+efHn M8Mk7hy7W8Ojt1kiWg/33pTnuvy2oKlvCpbz0/f7B6S7e3u/5jZaXvbJl+DkxqJc6loW60ennWMUMrKH 3EAakzrpSp96+/ng0sPD9IYl14MtQnf46vbit3E6H5 z8+k/lH7w85xy07mey1n1B98mB/7x491+Wv674/1p+Q7zs0SQv99Wdu91Zj/6XIwp7S47eak53+S/r75 a4m/02rcDx9qSpsrkX+TLHoyVkq9/8tJp2vBVj3rDyX6jUAJ6bUbQMAx1m/wdo7lguAaf25+DhHUl8Rg cdfv/90LPrdE9g8rn+zJz95fzK78/XFjao3OXSec75 +HF7pnx0L5u5s/djOP/w4f3xs+5ZCb4S2W/kAc5qB6p2spk4L8OBj0duPd///ert6+0iqau4ZZec7x/1 6fO2NG+Twrd2hGoF1ik3k5c5/SFJ6zIya93qqztF/sgFgaqomPF02Ze/GGiCO8urdq3+5J42uTdfNwlv i6D7mjqe8sFUf18+GfcqnCak8WurKhg0983H+g/Amor hpPzDvRZW3rcJwtGicmqLbMenZSkAkQCSsRvk7ME1VmKChEPPmZ7D1LPLqih6kYXZlUVGfzIDxUrPgRG EHNT4QbMKyWU7ISOw3DXI5NHIoTtNvCLSdFV96CHDhDTNEEu0tzpHuAruCOwFsEH9yqcj8P6R1xMYtP1 69aZvnugGlVN2Lz8HtqFCwYE8FeLFpqXSfMPJcYMNn D5aml9YrVsTrDIZZDf3zfxMrBfyUFmEtXO3wmrg3Y2M3oYtkbtTwALRNULbsBaocCW7uuIxlyycjI1Kw xHCfCKNlC8JyOTTkp84XKVBxFUjUCzTuBtAzIBM9KRs3GEoyNwWcLGHgYFMlANZfJO6NwYFmDYGeKYJP ZTjyYcnwUOMhdI8vzIBSy4AqB67UNDkLJfoNI80kBS tDYBhQCI3nJODaCqJ1Qyk7HBKoW7MskcBppULzXVRGLAszXtcqVVElaL9zyVlbZ3PtKHX8r3JmYY4ZZ3 ZwEQZaAFUJWXK5x0GaSMKiddvpdmxfNjAkGVAqRTKfVUVmEN1Kre4hhNLrfyHaCVTJMCtzGfoiUA1miK mkirjaR8JuzEVcQTT+RvIjXP1lla7+CjEgMCBvYmo8 IWIeENkmHAWkKXRnKYNrD2bcUZObZsIvAOAtFgSqNRMdUIMaQTOhH586ijIfDc3+VE4se6YwPpnwKNSY DJZvUZZySNDwRLM3FsPnLPQeDKJjLJGiXyL9IqQtEkYWVCIcZNK9YKJwFvFtMCZiZLUhGEpvPSKrJCW5 FPr1KNVoCYAfVW3nVsLlMMGyCHDhLLuwGRQtQXKmev GWPSEgPLWvKZAfHGH4PWMdXYNkLZivQGMxAXIlLNN2ANDrUORwLS5qCrAfISNrZVSwQfteDBSdVYRwcg PFBQYjSTLqSSK9JiAkQEJmLIWnDYstKTPhTYNmNtb6AOBiBLJxBN3xUxGyEEVaWFB4OHkdARMnTWLthm AKMDAwMDAwMDUyMyAwMDAwMCBuIAowMDAwMDAwNjQx OTEjMJKoAU5uHjLbFPCfSLO7YESlCSUvIHMtqvAEBNDtTILvGDf7LXTqQDRxRZChKQdmXZDhQXLaDWM9 KTRyOSTbBX5vRgTyRALgQNKqOSIxZFNbNOFbepBSMYNeFCUzJIN4PQRnVWEeKBJiZGbfYEIxLYPmGjl0 TTIkDGKnLN1qCqDrKFArUGX7WRNdZGIzEKNbskNYDK CsBHQ8MCP9RuZoBCVoMHIgNXmgBUGeTMOnTyH2JGIuFOOkEQ8zEyCkSKSqTMG0UaByMPEpMQQfitVEPK NxWMUbZYT3OvRlMLOaDNWzKLaxAUDwSFP2RCI7FCKkXKPvLV5cDlMoNIFyOBIwXXVnXJLzFZFpgfUWKK UtVAD3EIJxXIKeBLGjWSEhJNkvLVKuLLRkVdO6MKZg OGHzHE5kLgShCSSeOWYkJRDpPdJ3NjSkSoLGxGEpeFvsywz7QMzbA7f5KURoZXyfEW3tkhKeDHBxZaan Hb6nkYE3XZWmLhcNCw7Pt6DmlyT2yySzHfR3KSl9AnJlXZ2D ID Date Data Source [id number] 02/21/2021 08:37:31 AM EST [address] [address]Wkrokfk Name: DILAN KIRKDOB: 1960ex: MOrdering Provider: MITCHEL BROWNuthghulam Prov: MITCHEL Diegoferalysia Provider: Procedure Performed: / XR CHEST PORTABLEExam Date: 02/21/2021 08:32MRN: [id number] Number: [id number] Class: InpatientAccount #: [id number] for Exam: chest painTechnique: AP portable view obtained.Comparison: February 21, 2021Findings: The defibrillator is unchanged.The cardiac silhouette is prominent.No pneumothorax, pleural effusion, heart failure or pneumonia is appreciated.IMPRE SSION: Prominent cardiac silhouette.Report electronically signed by: REHANA BERGER On 02/21/2021 8:37 AMWorkstation ID: [id number] Name Value Range Interpretation Code Description Data Morena rce(s) Supporting Document(s) ID Date Data Source [id number] 02/21/2021 08:37:09 AM EST [facility] NT INFORMATIONPatient MRN Name Date of Age Gend*PT [id number] Dilan Kirk 1960 60 years M IPPT Location Admission Date/Time Visit ID Attending [id number] 02/21/21 0548 --- Griselda Faith MD([id number]) EPI ID CSN Admitting Provider [id number] Quinn Andres MD([id number])Cardiology ConsultName: Dilan Kirk Gender: maleDate of : [...] a 60 years male who presented to [facility] emergencyroom last night after he was [...] (chronic obstructive pulmonary disease) Coronary artery disease CODING ASSISTANT RCA Diabetes mellitus Fatty liver History of herniated intervertebral disc Hypertension NV (myocardial infarction) Sinusitis Umbilical herniaPast Surgical History:Procedure [...] Social Gatherings with Friends and Family: Attends [employer] Services: Active Member of Clubs or Organizations: [...] artery disease Hypertension Defibrillator dischargeRecommendations:Patient presented to [place] emergency room and attending called me from [...] rce(s) Supporting Document(s) ID Date Data Source [id number] 02/26/2021 12:07:38 PM EST [facility] SPECIMEN DESCRIPTION PERIPHERAL 2SPECIAL REQUESTS NONECULTURE RESULTS NO GROWTH 5 DAYSREPORT STATUS FINAL 02/26/2021 Name Value Range Interpretation Code Description Data Morena rce(s) Supporting Document(s) ID Date Data Source [id number] 02/26/2021 12:07:38 PM EST [facility] SPECIMEN DESCRIPTION PERIPHERAL 1SPECIAL REQUESTS NONECULTURE RESULTS NO GROWTH 5 DAYSREPORT STATUS FINAL 02/26/2021 Name Value Range Interpretation Code Description Data Morena rce(s) Supporting Document(s) ID Date Data Source [id number] 02/21/2021 08:08:35 AM EST [facility] Name Value Range Interpretation Code Description Data Morena rce(s) Supporting Document(s) TSH,ULTRASENSITIVE @ 1.587 mIU/L (0.360-4.170) [facility] PERFORMED AT [address] [place] [address] [address] [place] [address] [place] [address] ID Date Data Source [id number] 02/21/2021 08:08:35 AM EST [facility] Name Value Range Interpretation Code Description Data Morena rce(s) Supporting Document(s) NT PRO BNP 566 pg/mL (0-125) H Lab [facility] ID Date Data Source [id number] 02/21/2021 08:08:35 AM EST [facility] Name Value Range Interpretation Code Description Data Morena rce(s) Supporting Document(s) TROPONIN I 0.05 ng/mL (<0.05) H [facility] Less than 0.05: Myocardial injury unlike lyGreater than or equal to 0.05: Highly suggestive of myocardial injuryCorrelation with rise and/or fall ofserial troponins, clinical symptomsand ECG changes is necessary. ID Date Data Source [id number] 02/21/2021 08:08:35 AM EST [facility] Name Value Range Interpretation Code Description Data Morena rce(s) Supporting Document(s) SODIUM 140 mmol/L (136-145) [facility] POTASSIUM 3.7 mmol/L (3.6-5.2) [facility] CHLORIDE 107 mmol/L (100-108) [facility] CO2 27 mmol/L (22-31) [facility] ANION GAP 6 mmol/L (7-16) L [facility] UREA NITROGEN 19 mg/dL (7-24) [facility] CREATININE 1.06 mg/dL (0.80-1.30) [facility] BUN/CREAT RATIO 17.9 RATIO (10.0-20.0) [facility] GLUCOSE 144 mg/dL (70-99) H [facility] CALCIUM 8.9 mg/dL (8.4-10.2) [facility] TOTAL PROTEIN 7.4 g/dL (6.4-8.2) [facility] ALBUMIN 3.5 g/dL (3.5-4.6) [facility] GLOBULIN 3.9 g/dL (2.7-4.3) [facility] ALB/GLOB RATIO 0.9 RATIO [facility] ALKALINE PHOSPHATASE 60 U/L (45-117) [facility] BILIRUBIN,TOTAL 0.4 mg/dL (0.0-1.0) [facility] PLEASE NOTE:Total bilirubin results may be falselyelevated in patients taking Eltrombopag. AST (SGOT) 19 U/L (11-39) [facility] ALT (SGPT) 38 U/L (12-78) [facility] GFR >60 ml/min/1.73m2 (>59) [facility] GFR ( AMER) >60 ml/min/1.73m2 (>59) [facility] GFR INTERPRETATION [facility] --NORMAL KIDNEY FUNCTION OR MILD DISEASE - GFR >OR= 60CHRONIC KIDNEY DISEASE - GFR 15 - 59RENAL FAILURE - GFR <15 Est. GFR calculation based on the MDRDstudy equation, which assumes a steadystate for creatinine. Est. GFR should notbe used for medication dosing. ID Date Data Source [id number] 02/21/2021 08:04:51 AM EST [facility] Name Value Range Interpretation Code Description Data Morena rce(s) Supporting Document(s) MAGNESIUM 2.0 mg/dL (1.7-2.4) [facility] ID Date Data Source [id number] 02/21/2021 07:56:32 AM EST [facility] SPEC EXP DATE 02/24/2021ATI ENT ABO/Rh A POSITIVEANTIBODY SCREEN NEGATIVETESTING SITE PERFORMED AT [address] [place] [address] Name Value Range Interpretation Code Description Data Morena rce(s) Supporting Document(s) TYPE AND SCREEN [facility] ID Date Data Source [id number] 02/21/2021 07:22:54 AM EST [facility] Name Value Range Interpretation Code Description Data Morena rce(s) Supporting Document(s) APTT 25.9 s (22.0-34.3) [facility] ID Date Data Source [id number] 02/21/2021 07:22:54 AM EST [facility] Name Value Range Interpretation Code Description Data Morena rce(s) Supporting Document(s) PT 11.5 s (9.2-11.9) [facility] INR 1.09 [facility] SUGGESTED THERAPEUTIC RANGES USING INR F ORSTABILIZED ANTICOAGULATED PATIENTS:STANDARD DOSE THERAPY INR 2.0-3.0 DVT, PE, PREVENT DVT OR EMBOLISMHIGH DOSE THERAPY INR 2.5-3.5 PREVENT EMBOLISM FROM MECHANICAL HEART VALVE ID Date Data Source [id number] 02/21/2021 07:05:55 AM EST [facility] Name Value Range Interpretation Code Description Data Morena rce(s) Supporting Document(s) WBC 10.8 10*3/uL (4.1-11.0) [facility] RBC 4.82 10*6/uL (4.60-6.10) [facility] HGB 15.7 g/dL (13.5-18.0) [facility] HCT 45.6 % (41.0-53.0) [facility] MCV 94.6 fL (80.0-95.0) [facility] MCH 32.6 pg (27.0-32.0) H [facility] MCHC 34.5 g/dL (32.0-36.0) [facility] RDW 15.0 % (10.5-14.5) [facility] PLT 178 10*3/uL (150-450) [facility] MPV 8.5 fL (7.1-10.7) [facility] NEUT % 77.3 % (35.0-75.0) H [facility] LYMPH % 15.5 % (16.0-52.0) L [facility] MONO % 5.8 % (0.0-8.0) [facility] EOS % 0.4 % (0.0-5.0) [facility] BASO % 1.0 % (0.0-4.0) [facility] NEUT # 8.4 10*3/uL (1.8-7.7) H [facility] LYMPH # 1.7 10*3/uL (1.2-4.8) [facility] MONO # 0.6 10*3/uL (0.0-0.8) [facility] Eosinophils [#/volume] in Blood by Automated count 0.0 10*3/uL (0.0-0 .5) [facility] BASO # 0.1 10*3/uL (0.0-0.2) [facility] ID Date Data Source [id number] 02/21/2021 07:26:44 AM EST [facility] Name Value Range Interpretation Code Description Data Morena rce(s) Supporting Document(s) COLOR [facility] APPEARANCE [facility] SPEC GRAV URINE 1.033 (1.003-1.030) [facility] PH URINE 6.0 (5.0-7.5) [facility] [place] ESTERASE (NEG) [facility] NITRITE URINE (NEG) [facility] PROTEIN URINE (NEG) [facility] GLUCOSE URINE 3+ (NEG) A [facility] KETONE URINE (NEG) [facility] [place] UROBILINOGEN 1.0 mg/dL (0-1.0) [facility] [place] BILIRUBIN URINE (NEG) [facility] BLOOD/HGB URINE (NEG) [facility] ID Date Data Source [id number] 02/21/2021 07:08:36 AM EST [facility] Name Value Range Interpretation Code Description Data Morena rce(s) Supporting Document(s) URN CULTURE HOLD [facility] FOR ADD ON CULTURE ID Date Data Source [id number] 02/21/2021 03:01:00 AM EST [facility] Name Value Range Interpretation Code Description Data Morena rce(s) Supporting Document(s) SARS coronavirus 2 RNA [Presence] in Res piratory specimen by VICKEY with probe detection NEGATIVE [facility] This lab was ordered by [facility] a nd reported by [facility]. ID Date Data Source [id number] 01/28/2021 10:38:00 AM EDT [facility] ([facility]) Name Value Range Interpretation Code Description Data Morena rce(s) Supporting Document(s) Magnesium [Mass/volume] in Serum or Plasma 2.1 mg/dL 1.8-2.4 [facility] ([facility]) ID Date Data Source [id number] 01/28/2021 10:38:00 AM EDT [facility] Name Value Range Interpretation Code Description Data Morena rce(s) Supporting Document(s) Blood Urea Nitrogen 16 mg/dL 7-18 [facility] ([facility]) Glucose, Fasting 141 mg/dL 70-100 [facility] ([facility]) Sodium Level 137 meq/L 136-145 [facility] ([facility]) Glomerular Filtration Rate Laboratory test result [facility] ([facility]) <content>Units are mL/min/1.73 m2</content>
<content></content>
<content>Chronic Kidney Disease Staging per NK[facility]:</content>
<content></content>
<content>Stage I & II GFR >=60 Normal to Mildly Decreased</content>
<content>Stage III GFR 30- 59 Moderately Decreased</content>
<content>Stage IV GFR 15-29 Severely Decreased</content>
<content>Stage V GFR <15 Very Little GFR Left</content>
<content>ESRD GFR <15 on [employer]IST</content>
<content></content> Creatinine For GFR 1.30 mg/dL 0.70-1.30 [facility] ([facility]) Chloride Level 100 meq/L 98-107 [facility] ([facility]) Potassium Serum 4.4 meq/L 3.5-5.1 [facility] ([facility]) Anion Gap 5 meq/L 8-16 [facility] [facility] Carbon Dioxide Level 32 meq/L 21-32 [facility] ([facility]) Calcium Level 9.9 mg/dL 8.5-10.1 [facility] ([facility]) Alkaline Phosphatase 64 U/L 45-117 [facility] ([facility]) Alt/SGPT 32 U/L 12-78 [facility] ([facility]) Ast/Sgot 21 U/L 7-37 [facility] ([facility]) Albumin 3.9 GM/DL 3.2-5.2 [facility] ([facility]) Bilirubin,Total 0.5 mg/dL 0.2-1.0 [facility] ([facility]) Total Protein 7.6 GM/DL 6.4-8.2 [facility] ([facility]) Albumin/Globulin Ratio 1.1 [facility] ([facility]) ID Date Data Source [id number] 01/28/2021 10:38:00 AM EDT [facility] ([facility]) Name Value Range Interpretation Code Description Data Morena rce(s) Supporting Document(s) Natriuretic peptide.B prohormone N-Terminal [Mass/volu me] in Serum or Plasma 762 pg/mL [facility] ([facility]) ID Date Data Source [id number] 01/21/2021 01:39:10 PM EDT [facility] NT INFORMATIONPatient MRN Name Date of Age Gend*PT [id number] Dilan Kirk 1960 60 years M IPPT Location Admission Date/Time Visit ID Attending [id number] 12/13/20 1238 --- --- EPI ID CSN Admitting Provider [id number] Crystal Neal MD([id number]) [facility] DISCHARGE SUMMARYPatient Name: Dilan Kirk of : 1960 Age 60 yearsPrimary Physician: PCP PROVIDER REQUESTED PCP Phone: NoneAdmission Date: 12/13/2020 Discharge Date: 12/17/2020He will be discharged from [facility] to home.Discharge Diagnoses:Principal Problem: Coronary artery disease involving yomba shoshone coronary artery of yomba shoshone heart withunstable angina pectorisActive Problems: Sustained VT [...] summary.Items needing special attention:Followup with Nephrology and [facility] Course:Dilan Kirk is a 60 y.o. male with PMHx significant for HTN, DM2, COPD,CAD, NV. He states he drank 7-8 wine coolers [...] persisting into today, promptinghim to go to [facility] for evaluation. There he was found to be in VT with"rate at 170". He was cardioverted x 1 at 200J with conversion to SR with STelevations in lead III and lateral ST depressions. He was loaded with ASA andplavix, heparin gtt was started and he was transferred to [facility] ER for Cardiologyevaluation. Noted to be in JOHN, Nephrology was consulted. Thought to besecondary to [facility]N. S/p urgent HD in ICU on 12/13 and HD again on 12/16 withimprovement in renal function. Maddie was pulled out prior to discharge.For acute hepatitis, Gastroenterology was consulted. Started on NAC protocolwith improvement.For sustained Vtach, Ca rdiology and EP [facility]15 [...] rce(s) Supporting Document(s) ID Date Data Source [id number] 12/27/2020 08:12:00 AM EDT [facility] ([facility]) Name Value Range Interpretation Code Description Data Morena rce(s) Supporting Document(s) Magnesium [Mass/volume] in Serum or Plasma 1.9 mg/dL 1.8-2.4 [facility] ([facility]) ID Date Data Source [id number] 12/27/2020 08:12:00 AM EDT [facility] ([facility]) Name Value Range Interpretation Code Description Data Morena rce(s) Supporting Document(s) Glucose, Fasting 168 mg/dL 70-100 [facility] ([facility]) Blood Urea Nitrogen 25 mg/dL 7-18 [facility] ([facility]) Glomerular Filtration Rate Laboratory test result [facility] ([facility]) <content>Units are mL/min/1.73 m2</content>
<content></content>
<content>Chronic Kidney Disease Staging per NKF:</content>
<content></content>
<content>Stage I & II GFR >=60 Normal to Mildly Decreased</content>
<content>Stage III GFR 30- 59 Moderately Decreased</content>
<content>Stage IV GFR 15-29 Severely Decreased</content>
<content>Stage V GFR <15 Very Little GFR Left</content>
<content>ESRD GFR <15 on SOCIAL WORK SPECIALIST</content>
<content></content> Creatinine For GFR 1.26 mg/dL 0.70-1.30 [facility] ([facility]) Potassium Serum 4.5 meq/L 3.5-5.1 [facility] ([facility]) Sodium Level 137 meq/L 136-145 [facility] ([facility]) Anion Gap 8 meq/L 8-16 [facility] Carbon Dioxide Level 30 meq/L 21-32 [facility] ([facility]) Chloride Level 99 meq/L 98-107 [facility] ([facility]) Calcium Level 9.5 mg/dL 8.5-10.1 [facility] ([facility]) Alt/SGPT 116 U/L 12-78 [facility] ([facility]) Ast/Sgot 36 U/L 7-37 [facility] Bilirubin,Total 0.7 mg/dL 0.2-1.0 [facility] ([facility]) Total Protein 7.4 GM/DL 6.4-8.2 [facility] ([facility]) Alkaline Phosphatase 71 U/L 45-117 [facility] ([facility]) Albumin 3.7 GM/DL 3.2-5.2 [facility] ([facility]) Albumin/Globulin Ratio 1.0 [facility] ([facility]) ID Date Data Source [id number] 12/27/2020 08:12:00 AM EDT [facility] ([facility]) Name Value Range Interpretation Code Description Data Morena rce(s) Supporting Document(s) Natriuretic peptide.B prohormone N-Terminal [Mass/volu me] in Serum or Plasma 1141 pg/mL [facility] ([facility]) ID Date Data Source [id number] 12/17/2020 06:57:27 PM EDT [address] [address]Hssbojz Name: DILAN KIRKDOB: 1960ex: MOrdering Provider: Sulma Cristobal Prov: Sulma PRUITTRefruth ann Provider: Procedure Performed: / XR CHEST PORTABLEExam Date: 12/17/2020 18:56MRN: [id number] Number: [id number] Class: InpatientAccount #: [id number] for Exam: icdTechnique: AP portable view obtained.Comparison: December 13, 2020Findings: ICD lead is projected over the right ventricle. There is moderate cardiac megaly. No adenopathy is revealed. No pneumothorax demonstrated. No pleural effusion is demonstrated. Lungs are hypoinflated but clear.IMPRESSION: Cardiomegaly. No pneumothorax.Report electronically signed by: HAILEE CHARLES On 12/17/2020 6:57 PMWorkstation ID: [id number] Name Value Range Interpretation Code Description Data Morena rce(s) Supporting Document(s) ID Date Data Source [id number] 12/17/2020 06:54:08 PM EDT [facility] Name Value Range Interpretation Code Description Data Morena rce(s) Supporting Document(s) POC NOVA GLU 112 mg/dL (70-99) H [facility] CLINICAL STAFF ID Date Data Source [id number] 12/17/2020 05:58:49 PM EDT [facility] Name Value Range Interpretation Code Description Data Morena rce(s) Supporting Document(s) &PDF [facility] [id number] Dcm [file] [id number]= ID Date Data Source [id number] 12/17/2020 11:50:01 AM EDT [facility] Name Value Range Interpretation Code Description Data Morena rce(s) Supporting Document(s) POC NOVA GLU 193 mg/dL (70-99) H [facility] [place] [facility] CLINICAL STAFF ID Date Data Source [id number] 12/17/2020 09:15:22 AM EDT [facility] Name Value Range Interpretation Code Description Data Morena rce(s) Supporting Document(s) POC NOVA GLU 149 mg/dL (70-99) [facility] [place] [facility] CLINICAL STAFF ID Date Data Source [id number] 12/17/2020 10:43:50 AM EDT [facility] Name Value Range Interpretation Code Description Data Morena rce(s) Supporting Document(s) APTT 60.9 s (22.0-34.3) [facility] ID Date Data Source [id number] 12/17/2020 01:55:46 AM EDT [facility] Name Value Range Interpretation Code Description Data Morena rce(s) Supporting Document(s) APTT 73.2 s (22.0-34.3) H [facility] ID Date Data Source [id number] 12/16/2020 05:57:46 PM EDT [facility] Name Value Range Interpretation Code Description Data Morena rce(s) Supporting Document(s) POC NOVA GLU 104 mg/dL (70-99) [facility] [place] [facility] CLINICAL STAFF ID Date Data Source [id number] 12/16/2020 05:43:04 PM EDT [facility] Name Value Range Interpretation Code Description Data Morena rce(s) Supporting Document(s) APTT 56.3 s (22.0-34.3) [facility] ID Date Data Source [id number] 12/16/2020 12:34:46 PM EDT [facility]PAT[facility] NT INFORMATIONPatient MRN Name Date of Age Gend*PT [id number] Dilan Kirk 1960 60 years M IPPT Location Admission Date/Time Visit ID Attending [id number] 12/13/20 8288 --- Crystal Neal MD([id number]) EPI ID CSN Admitting Provider [id number] Crystal Neal MD([id number]) Attestation signed by Crystal Neal MD at 12/16/2020 12:34 PMPatient seen and examined independently on 12/13, I discussed management and Iagree with plan outlined by Griselda Roy. Plan for emergent dialysis.Signature: CLARKE Harrisonate: December 16, 2020Time: 12:34 PM Inpatient History & PhysicalWilldebi KirkMRN:[id number] from [facility]: VT s/p cardioversion, elevated troponinHPI: 60 years-old male with pmhx significant for CAD with ICM (EF 40%), DM2, HTNpresents 12/13/20 to [facility] as a transfer from [facility]. He was c/o dizzinesssince Sunday - states he drank too much at a field day with persistentdizziness and paraesthesias in his extremities -- arrived to [facility] ED, foundto be in VT requiring cardioversion x 1 (200 J). He states his paraesthesias anddizziness resolved -- Post cardioversion EKG SR with ST elevations to lead III,lateral depressions. He was loaded with aspirin/plavix and started on heparindrip and transferred to [facility].Troponin 3.36, NTpro BNP >33kPOC BMP abnormal: [...] chronically occluded RCA with Lto R collaterals, Clinical Esthetician: Dr. Wright ([place]). Spoke to Dr. Erickson(cardiology) for consult, will also consult nephrology.Assessment and Plan:Principal Problem: Coronary artery disease involving yomba shoshone coronary artery of yomba shoshone heart withunstable angina pectorisActive Problems: VT (ventricular tachycardia) COPD (chronic obstructive pulmonary disease) DM2 (diabetes mellitus, type 2) HTN (hypertension) Tobacco use Elevated troponin JOHN (acute kidney injury) Elevated LFTsVT, elevated troponin, Hx of single vessel CAD (RCA), s/p cardioversion,currently SR with occasional PVC- continue aspirin/plavix- continue heparin drip- cardiology consult is pending- r/o [id number], denies any previous history of renal problems, [...] 2- check A1c- serum glucose 150 (from [facility])- home meds: metformin, Steglatro- monitor BG, start lantus 6u nightly, 2u ISSDVT prophylaxis: heparin dripCode status: FULL CODED/w Dr. Dwyer Medical History:Past Medical History:Diagnosis Date Asthma Cardiomegaly COPD (chronic obstructive pulmonary disease) Coronary artery disease Diabetes mellitus History of herniated intervertebral disc Hypertension NV (myocardial infarction) Sinusitis Umbilical herniaPast Surgical History:No [...] Griselda Roy NPDate: December 13, 2020Time: 1:50 [id number] Name Value Range Interpretation Code Description Data Morena rce(s) Supporting Document(s) ID Date Data Source [id number] 12/16/2020 12:04:32 PM EDT [facility] Name Value Range Interpretation Code Description Data Morena rce(s) Supporting Document(s) POC NOVA GLU 115 mg/dL (70-99) H [facility] CLINICAL STAFF ID Date Data Source [id number] 12/16/2020 11:09:20 AM EDT [facility] Name Value Range Interpretation Code Description Data Morena rce(s) Supporting Document(s) PHOSPHORUS 1.6 mg/dL (2.5-4.5) L [facility] ID Date Data Source [id number] 12/16/2020 11:09:20 AM EDT [facility] Name Value Range Interpretation Code Description Data Morena rce(s) Supporting Document(s) SODIUM 136 mmol/L (136-145) [facility] POTASSIUM 3.6 mmol/L (3.6-5.2) [facility] CHLORIDE 100 mmol/L (100-108) [facility] CO2 31 mmol/L (22-31) [facility] ANION GAP 5 mmol/L (7-16) L [facility] UREA NITROGEN 22 mg/dL (7-24) [facility] CREATININE 1.00 mg/dL (0.80-1.30) [facility] BUN/CREAT RATIO 22.0 RATIO (10.0-20.0) H [facility] GLUCOSE 125 mg/dL (70-99) H [facility] CALCIUM 8.2 mg/dL (8.4-10.2) L [facility] GFR >60 ml/min/1.73m2 (>59) [facility] GFR ( AMER) >60 ml/min/1.73m2 (>59) [facility] GFR INTERPRETATION [facility] --NORMAL KIDNEY FUNCTION OR MILD DISEASE - GFR >OR= 60CHRONIC KIDNEY DISEASE - GFR 15 - 59RENAL FAILURE - GFR <15 Est. GFR calculation based on the MDRDstudy equation, which assumes a steadystate for creatinine. Est. GFR should notbe used for medication dosing. ID Date Data Source [id number] 12/16/2020 10:51:49 AM EDT [facility] Name Value Range Interpretation Code Description Data Morena rce(s) Supporting Document(s) WBC 10.1 10*3/uL (4.1-11.0) [facility] RBC 4.59 10*6/uL (4.60-6.10) L [facility] HGB 15.2 g/dL (13.5-18.0) [facility] HCT 43.4 % (41.0-53.0) [facility] MCV 94.4 fL (80.0-95.0) [facility] MCH 33.0 pg (27.0-32.0) H [facility] MCHC 35.0 g/dL (32.0-36.0) [facility] RDW 14.7 % (10.5-14.5) H [facility] PLT 130 10*3/uL (150-450) L [facility] MPV 8.8 fL (7.1-10.7) [facility] ID Date Data Source [id number] 12/16/2020 11:07:19 AM EDT [facility] Name Value Range Interpretation Code Description Data Morena rce(s) Supporting Document(s) APTT 56.6 s (22.0-34.3) H [facility] ID Date Data Source [id number] 12/15/2020 11:02:30 PM EDT [facility] Name Value Range Interpretation Code Description Data Morena rce(s) Supporting Document(s) APTT 61.8 s (22.0-34.3) H [facility] ID Date Data Source [id number] 12/15/2020 06:29:11 PM EDT [facility] Name Value Range Interpretation Code Description Data Morena rce(s) Supporting Document(s) POC NOVA GLU 167 mg/dL (70-99) H [facility] [place] [facility] CLINICAL STAFF ID Date Data Source [id number] 12/15/2020 05:45:14 PM EDT [facility] Name Value Range Interpretation Code Description Data Morena rce(s) Supporting Document(s) &PDF [facility] BGEDMt5xCxTMMgHd27/AAMbhSLVbb1GlAHmaGQf9GFcxHRXlH5FdaXvsTLyVUhFFHX5BDQ7LIIdGYGpU yZW [file] ICAgICAgICAgICAgICAgICAgICAgICAgICAgICAgIC AgICAgICAgICAgICAgICAgICAgICAgICAgICAgICAgICAgICAgICAgICAgICAgDQogICAgICAgICAgIC AgICAgICAgICAgICAgICAgICAgICAgICAgICAgICAgICAgICAgICAgICAgICAgICAgICAgICAgICAgIC AgICAgICAgICAgICAgICAgICAgICAgICAgICAgDQog ICAgICAgICAgICAgICAgICAgICAgICAgICAgICAgICAgICAgICAgICAgICAgICAgICAgICAgICAgICAg ICAgICAgICAgICAgICAgICAgICAgICAgICAgICAgICAgICAgICAgDQogICAgICAgICAgICAgICAgICAg ICAgICAgICAgICAgICAgICAgICAgICAgICAgICAgIC AgICAgICAgICAgICAgICAgICAgICAgICAgICAgICAgICAgICAgICAgICAgICAgICAgDQogICAgICAgIC AgICAgICAgICAgICAgICAgICAgICAgICAgICAgICAgICAgICAgICAgICAgICAgICAgICAgICAgICAgIC AgICAgICAgICAgICAgICAgICAgICAgICAgICAgICAg DQogICAgICAgICAgICAgICAgICAgICAgICAgICAgICAgICAgICAgICAgICAgICAgICAgICAgICAgICAg ICAgICAgICAgICAgICAgICAgICAgICAgICAgICAgICAgICAgICAgICAgDQogICAgICAgICAgICAgICAg ICAgICAgICAgICAgICAgICAgICAgICAgICAgICAgIC AgICAgICAgICAgICAgICAgICAgICAgICAgICAgICAgICAgICAgICAgICAgICAgICAgICAgDQogICAgIC AgICAgICAgICAgICAgICAgICAgICAgICAgICAgICAgICAgICAgICAgICAgICAgICAgICAgICAgICAgIC AgICAgICAgICAgICAgICAgICAgICAgICAgICAgICAg ICAgDQogICAgICAgICAgICAgICAgICAgICAgICAgICAgICAgICAgICAgICAgICAgICAgICAgICAgICAg ICAgICAgICAgICAgICAgICAgICAgICAgICAgICAgICAgICAgICAgICAgICAgDQogICAgICAgICAgICAg ICAgICAgICAgICAgICAgICAgICAgICAgICAgICAgIC TjGOEyEEVjEGAfINJeIDYeOCGjTEKoBKJgPHWiQNTtYPZcPDRjXHAzHNNsMABiMCVuRHMrJFPaKFg5O3 vrHCQeSGMkOH3kEBc1Rg3+KRfYXpNwUZT3qyWsjU3VGI9lf2ItBKjzZYAsx1MsQIx3EK1YBATkOPenGG 5CYQbzos3EQCBeDXSudMCGi0bgYeSsHKF1LWPmHknp XP9VVHQvW4gyrjZbAAMqPEAIAYumQCCZJSbxGWLECIPsYJSzHiHhAEkxHD8Sy9DptZC0ALl+Tc3DRB9a o4SnCFkgXnFlVF9coq9OBDnESoCeS7JjfgI7QFM8JHOiMa0ZBKZyKTBupSUrXGBaNRPOTxRaL2YsbR59 IDENCj4+CGgutlBrWkyIDgC0JKGom4OcHLq7KR5FIR AxACj0nVXpHD2jxZDmaEXsGHgcCA3BJRD9ZFzsNnDiYLFaO9gHNdNdWSkwYJKreJuoEK3HJtQsQ0Viss VudCAzMyAwIFINCj4+BXpnjmHdXvvYWmJ4WGVdg6ZmISu1WY2GXVYoADuwJM4LTKLpqG7hHFzdZL7ZXf CzXFIxLFASVxItC43eeHDuMSl8H0EvUnYoJJYbSqxb ZXMgPDwvTmFtZXMgWyBdDQogID4+ID4+VEgrAV3XGLnswxSaKNOmMl9NPRBsESKyIY2tIRCuWWHtB7Z8 dOtlIKOVXzNsU2aaxdhfWL1eRCUcX428tNjpfmAxJDYePIXgIy8IZVOsWKL7HEXgsPMoRaLbCGGCZBed KF4YsAOfVWM4uE4kLYbpEENtAWJiL7rTVaGdlGoiQV 51bGwgbnVsbCBdDQo+Ke4YRK9sl7AvIGn6ikLgYVxyGBZ1XRbbXWViWMOdUHRqNLZ8WJU2VIZUAmEmPA CdLEVfXGofKZSaAXZyqf3WWHKpRXY6HDUaLDPcUIUoFAIkRUvtEMTcIRbwKKYmRTSmPFJhAF6JOgUwAO HrVOMtJPglKAIuTGAruc4YYTZpTMHiBuJ9QhQfBPJc EPNnABiqREQsJCOdCBUiQCMxVYVnSN8RZoIwGCCoBJS3GLVzXXXdYQQpdw6QNFMbSWTgKRmcFZXqXLSs XNOmGRfdNWNtDGU2WgZpYRSgDSBpHJ5XVtEbYPTjYNA4MtDkQILeAPWsou0VFEVbKXPsNiVdHnRwHATp GHHbFIwwPYEaMCP1BfU0IQDsLRGxDO2MBnVtAWViJW t1XThkYBDyIFKoqt0GXECcGXYeJQw9VWJnHSXwWFEqGBzoJIQqKUD3NNY7BDLyXEJpAY5BLgXkBGUoRO p8PduoYSPfMEYmez7XWGWyZNAmQXRzOOQzVKJgFWLhTWsdZQAtJAAhKoP3AAFkTALrJN4SZnBuXYQcGB FvFqWvMDVtSDLzav9VQIIwNQNrDDJ2FKUtHLCnCRIn YAlbPQAwURT1PkOdOIJqTQSoDI6TRyTlWILuREV0ELEdWDEiVDXvsj6VMRQgWRYnHpJ2YFXtNBRySKOc IMdrODZcROBuDOs7IAZeXAPxKS0GFgKiASUrRlY9LjZbSZSaJJLapq5GMUUhULBtRyDdHFHpRDBrOKSh AOvtSYSvUGG8JcJ0PGXcMQNiKI5RMbVaXUZqZOf2Pv vqRQAfLEUuuf8WKOUqZHY1TtC9NBYgOFZhDGOcZMbbNSEoJKKpLZD7KSStIOXzFX5XHiUeJNYeFqJmBI PgYCZbGDIosu8UHZElRTK7HErwZmGcCXZtLYCfGPfyVNZrDRcxBPm6ZBExALCeOT9TAsDyQAElEuIhNR DwWGGnWVGouv0FRFKtIXA2KlW5HLDpKNTqKWXuGMl8 evJbrCZwEId4FO5RO3MflkFnZhGXVb6Gr270EOK7NKNlSi3RJ2vyYe9yAQYeXUFOVn5DVHx7C0NeVNM5 N8LyZjJ3BBHfONywZYeaGqUyMFKjBJrnOIN+IDmsDQF4GOd8WsRrWWK8WrEmVXC0X6YtXLBdTjXcOGQm GM6cESKNZa8+ELjlhHQhaHsoQTUSJrooHJilZZqaASHRMm0W ID Date Data Source [id number] 12/15/2020 01:37:03 PM EDT [facility] Name Value Range Interpretation Code Description Data Morena rce(s) Supporting Document(s) POC NOVA GLU 116 mg/dL (70-99) [facility] [place] [facility] CLINICAL STAFF ID Date Data Source [id number] 12/15/2020 10:28:49 AM EDT [facility] NT INFORMATIONPatient MRN Name Date of Age Gend*PT [id number] Dilan Kirk 1960 60 years M IPPT Location Admission Date/Time Visit ID Attending ProviderHEMODIALYSIS 12/13/20 1238 --- Crystal Neal MD([id number]) EPI ID CSN Admitting Provider [id number] Crystal Neal MD([id number])INPATIENT EP CONSULT NOTEPatient Name: Dilan Kirk of [...] J tosinus rhythmHe is a transfer [facility].He is known to have chronically occluded RCA and prior inferior wall myocardialinfarction.He had a left heart cath in 2005 at [place] chronic RCA occlusion frkyvzse-ce-lrcmt collaterals. No significant other disease. Repeat cath [...] mellitus History of herniated intervertebral disc Hypertension NV (myocardial infarction) Sinusitis Umbilical herniaPAST SURGICAL HISTORY:No [...] heart attack, stroke, oreven .Leo Pruitt M.D., [facility], RSClinical Cardiac Electrophysiology12/15/2020 8:57 AM Name Value Range Interpretation Code Description Data Morena rce(s) Supporting Document(s) ID Date Data Source [id number] 12/15/2020 08:50:28 AM EDT [facility] Name Value Range Interpretation Code Description Data Morena pipere(s) Supporting Document(s) POC NOVA GLU 107 mg/dL (70-99) H [facility] CLINICAL STAFF ID Date Data Source [id number] 12/15/2020 08:46:34 AM EDT [facility] CenterPAT[facility] NT INFORMATIONPatient MRN Name Date of Age Gend*PT [id number] Reagan, Dilan Sulma 1960 60 years M IPPT Location Admission Date/Time Visit ID Attending ProviderHEMODIALYSIS 12/13/20 1238 --- Crystal Neal MD([id number]) EPI ID CSN Admitting Provider [id number] Crystal Neal MD([id number])CARDIOLOGY CONSULTATIONName: Dilan Kirk Gender: maleDate of : 1960 Age: 60 yearsDate/Time of Admit: 12/13/2020 12:38 PM Code Status: Full CodePrimary Care Provider / Referring Physician: PCP PROVIDER REQUESTEDInformant:HISTORYCHIEF COMPLAINT: No chief complaint on file.HPI:This patient is a 60 years male who was transferred here from [place] [id number] after complaining of dizziness and going to [...] mellitus History of herniated intervertebral disc Hypertension NV (myocardial infarction) Sinusitis Umbilical herniaPSH: No past [...] Social Gatherings with Friends and Family: Attends [employer] Services: Active Member of Clubs or Organizations: [...] not clear, given the presenceof a known CODING ASSISTANT of the right coronary2. Sustained monomorphic VT3. [...] rce(s) Supporting Document(s) ID Date Data Source [id number] 12/15/2020 09:19:32 AM EDT [facility] Name Value Range Interpretation Code Description Data Morena rce(s) Supporting Document(s) PHOSPHORUS 2.2 mg/dL (2.5-4.5) L [facility] ID Date Data Source [id number] 12/15/2020 09:19:32 AM EDT [facility] Name Value Range Interpretation Code Description Data Morena rce(s) Supporting Document(s) SODIUM 135 mmol/L (136-145) L [facility] POTASSIUM 3.5 mmol/L (3.6-5.2) L [facility] CHLORIDE 100 mmol/L (100-108) [facility] CO2 27 mmol/L (22-31) [facility] ANION GAP 8 mmol/L (7-16) [facility] UREA NITROGEN 38 mg/dL (7-24) H [facility] CREATININE 1.38 mg/dL (0.80-1.30) H [facility] BUN/CREAT RATIO 27.5 RATIO (10.0-20.0) H [facility] GLUCOSE 117 mg/dL (70-99) H [facility] CALCIUM 8.4 mg/dL (8.4-10.2) [facility] GFR 53 ml/min/1.73m2 (>59) L [facility] GFR ( AMER) >60 ml/min/1.73m2 (>59) [facility] GFR INTERPRETATION [facility] --NORMAL KIDNEY FUNCTION OR MILD DISEASE - GFR >OR= 60CHRONIC KIDNEY DISEASE - GFR 15 - 59RENAL FAILURE - GFR <15 Est. GFR calculation based on the MDRDstudy equation, which assumes a steadystate for creatinine. Est. GFR should notbe used for medication dosing. ID Date Data Source [id number] 12/15/2020 09:03:38 AM EDT [facility] Name Value Range Interpretation Code Description Data Morena rce(s) Supporting Document(s) WBC 9.1 10*3/uL (4.1-11.0) [facility] [place] RBC 4.70 10*6/uL (4.60-6.10) [facility] HGB 15.3 g/dL (13.5-18.0) [facility] HCT 44.2 % (41.0-53.0) [facility] MCV 94.0 fL (80.0-95.0) [facility] MCH 32.5 pg (27.0-32.0) H [facility] MCHC 34.5 g/dL (32.0-36.0) [facility] RDW 14.3 % (10.5-14.5) [facility] PLT 111 10*3/uL (150-450) L [facility] MPV 9.1 fL (7.1-10.7) [facility] ID Date Data Source [id number] 12/15/2020 09:10:42 AM EDT [facility] Name Value Range Interpretation Code Description Data Morena rce(s) Supporting Document(s) APTT 134.6 s (22.0-34.3) H [facility] ALERTED CRITICAL RESULT NADIA ([id number]) IN [facility] AT 0908 ON 12/15/20 [place] [id number] ID Date Data Source [id number] 12/15/2020 08:23:57 AM EDT [facility] Name Value Range Interpretation Code Description Data Morena rce(s) Supporting Document(s) WBC 8.0 10*3/uL (4.1-11.0) [facility] RBC 4.77 10*6/uL (4.60-6.10) [facility] HGB 15.5 g/dL (13.5-18.0) [facility] HCT 44.7 % (41.0-53.0) [facility] MCV 93.8 fL (80.0-95.0) [facility] MCH 32.5 pg (27.0-32.0) H [facility] Y MCHC 34.7 g/dL (32.0-36.0) [facility] RDW 14.3 % (10.5-14.5) [facility] PLT 95 10*3/uL (150-450) L [facility] MPV 9.2 fL (7.1-10.7) [facility] ID Date Data Source [id number] 12/15/2020 08:17:35 AM EDT [facility] Name Value Range Interpretation Code Description Data Morena rce(s) Supporting Document(s) BILIRUBIN,UNCONJ. 0.5 mg/dL (0.0-0.7) [facility] ID Date Data Source [id number] 12/15/2020 08:17:25 AM EDT [facility] Name Value Range Interpretation Code Description Data Morena rce(s) Supporting Document(s) MAGNESIUM 1.8 mg/dL (1.7-2.4) [facility] ID Date Data Source [id number] 12/15/2020 08:17:25 AM EDT [facility] Name Value Range Interpretation Code Description Data Morena rce(s) Supporting Document(s) SODIUM 135 mmol/L (136-145) L [facility] POTASSIUM 3.4 mmol/L (3.6-5.2) L [facility] CHLORIDE 102 mmol/L (100-108) [facility] CO2 26 mmol/L (22-31) [facility] ANION GAP 7 mmol/L (7-16) [facility] UREA NITROGEN 40 mg/dL (7-24) H [facility] CREATININE 1.41 mg/dL (0.80-1.30) H [facility] BUN/CREAT RATIO 28.4 RATIO (10.0-20.0) [facility] GLUCOSE 94 mg/dL (70-99) [facility] CALCIUM 8.4 mg/dL (8.4-10.2) [facility] TOTAL PROTEIN 6.3 g/dL (6.4-8.2) L [facility] ALBUMIN 3.1 g/dL (3.5-4.6) L [facility] GLOBULIN 3.2 g/dL (2.7-4.3) [facility] ALB/GLOB RATIO 1.0 RATIO [facility] ALKALINE PHOSPHATASE 50 U/L (45-117) [facility] BILIRUBIN,TOTAL 0.7 mg/dL (0.0-1.0) [facility] PLEASE NOTE:Total bilirubin results may be falselyelevated in patients taking Eltrombopag. AST (SGOT) 969 U/L (11-39) H [facility] ALT (SGPT) 3334 U/L (12-78) H [facility] GFR 51 ml/min/1.73m2 (>59) L [facility] GFR ( AMER) >60 ml/min/1.73m2 (>59) [facility] GFR INTERPRETATION [facility] --NORMAL KIDNEY FUNCTION OR MILD DISEASE - GFR >OR= 60CHRONIC KIDNEY DISEASE - GFR 15 - 59RENAL FAILURE - GFR <15 Est. GFR calculation based on the MDRDstudy equation, which assumes a steadystate for creatinine. Est. GFR should notbe used for medication dosing. ID Date Data Source [id number] 12/15/2020 08:17:25 AM EDT [facility] Name Value Range Interpretation Code Description Data Morena rce(s) Supporting Document(s) BILIRUBIN,CONJUGATED 0.2 mg/dL (0.0-0.3) [facility] ID Date Data Source [id number] 12/14/2020 08:12:03 PM EDT [facility] Name Value Range Interpretation Code Description Data Morena rce(s) Supporting Document(s) APTT 16.2 s (22.0-34.3) L [facility] PERFORMED BY ALTERNATE METHOD. REFERENCE RANGE = 24.7 - 33.3 ID Date Data Source [id number] 12/14/2020 04:54:41 PM EDT [facility] Name Value Range Interpretation Code Description Data Morena rce(s) Supporting Document(s) POC NOVA GLU 175 mg/dL (70-99) H [facility] STA[facility] ID Date Data Source [id number] 12/14/2020 12:31:36 PM EDT [facility] Name Value Range Interpretation Code Description Data Morena rce(s) Supporting Document(s) POC NOVA GLU 105 mg/dL (70-99) H [facility] ID Date Data Source [id number] 12/14/2020 09:18:33 AM EDT [facility] Name Value Range Interpretation Code Description Data Morena rce(s) Supporting Document(s) POC NOVA GLU 153 mg/dL (70-99) H [facility] ID Date Data Source [id number] 12/14/2020 08:58:22 AM EDT [facility] Name Value Range Interpretation Code Description Data Morena rce(s) Supporting Document(s) &PDF [facility] WZFIFp6dXyGNIdXw09/SJZffBUMjy9SbEIwgRFe1PHsxYZOfN5NfmHvaTPgGKeFARX5CEI4XULoZUWlD yZW [file] siQ3ajCRczANS8M81L3f3h76909w409rW5xVppjaPM 19KPUiBPhPexHDShHOqUcyKKqwEdvdyoH2UWtCLFA8zyz5nhE5yv/insulation estimator/ydUGKOUx7ixjZhk2B62+18K [file] AgICAgICAgICAgICAgICAgICAgICAgICAgICAgICAg ICAgICAgICAgICAgICAgICAgICAgICAgICAgICAgICAgICAgICAgICAgICAgICAgICAgICAgICAgICAg ICAgDQogICAgICAgICAgICAgICAgICAgICAgICAgICAgICAgICAgICAgICAgICAgICAgICAgICAgICAg ICAgICAgICAgICAgICAgICAgICAgICAgICAgICAgIC AgICAgICAgICAgICAgDQogICAgICAgICAgICAgICAgICAgICAgICAgICAgICAgICAgICAgICAgICAgIC AgICAgICAgICAgICAgICAgICAgICAgICAgICAgICAgICAgICAgICAgICAgICAgICAgICAgICAgDQogIC AgICAgICAgICAgICAgICAgICAgICAgICAgICAgICAg ICAgICAgICAgICAgICAgICAgICAgICAgICAgICAgICAgICAgICAgICAgICAgICAgICAgICAgICAgICAg ICAgICAgDQogICAgICAgICAgICAgICAgICAgICAgICAgICAgICAgICAgICAgICAgICAgICAgICAgICAg ICAgICAgICAgICAgICAgICAgICAgICAgICAgICAgIC AgICAgICAgICAgICAgICAgDQogICAgICAgICAgICAgICAgICAgICAgICAgICAgICAgICAgICAgICAgIC AgICAgICAgICAgICAgICAgICAgICAgICAgICAgICAgICAgICAgICAgICAgICAgICAgICAgICAgICAgDQ ogICAgICAgICAgICAgICAgICAgICAgICAgICAgICAg ICAgICAgICAgICAgICAgICAgICAgICAgICAgICAgICAgICAgICAgICAgICAgICAgICAgICAgICAgICAg ICAgICAgICAgDQogICAgICAgICAgICAgICAgICAgICAgICAgICAgICAgICAgICAgICAgICAgICAgICAg ICAgICAgICAgICAgICAgICAgICAgICAgICAgICAgIC AgICAgICAgICAgICAgICAgICAgDQogICAgICAgICAgICAgICAgICAgICAgICAgICAgICAgICAgICAgIC AgICAgICAgICAgICAgICAgICAgICAgICAgICAgICAgICAgICAgICAgICAgICAgICAgICAgICAgICAgIC AgDQogICAgICAgICAgICAgICAgICAgICAgICAgICAg ICAgICAgICAgICAgICAgICAgICAgICAgICAgICAgICAgICAgICAgICAgICAgICAgICAgICAgICAgICAg UBEaPIYkRFWpSHJdAVq0P9roXSDaUGXdYD0xQIn9Pc0+GGhNWxUmLYT5smXsuX8EUH6mh1HfTYusVUOl a4YmSOf9IS6XWSMzLHvbKQ1PRFzldw5FYYGhGCLteV ZDh8zfMtEuDCA0JEUhUgydVC3RUDOuH9spbfKkYTQdODUJMJzzWRRFAO2CRzTrO5DwwA23FLYYOc8+DQ utjjBzVxbJRwZ4JMOue5KdUXj8IV4UGBCnSKffKV2SAWDbcM6xVQwfFF4ZYgEhTSVnKNRCAjTpE73geP KmIGu9Z5MpStXiPLEvTgbsHFIkYObcNrSrZMZdKwWe DQogID4+ID4+ZJszVC0WECiwxeNkAEFaKq2IMDZyOPF4MKRfvMCjFuRjQIFRNAddZE4JnVAxKFJ6kK4l USijHNQcVWYyX7uODgHwjJrjHN25gWwxuqEfbKYbLJb+Zt8NXF0va6ZeUUs6plXhHMsiOUW7XSfhMLAc QWCyPCDfVNL0XJR1PMFGXjTwZHFjGKAzDEkrUVWlFB Csdf9BRQTgCBAgIWTeCzNhQJLfIYLiRSeyTSZyNGC8EMebXXWrPNJbJR7VDeDnVNRpRLHvOHeyMVYfQP Bibb8DGGLfLGDgBpUnGQVlOPOzZEZfGFmcCMXdEWYqUjF8DUBmQTSnHI7OZpKpOSAeCWF8DKVbDRWnUZ Zzbk4QSNXwIZBqOVl7REDmBZCjBHMkYQewFOHlBBT9 RKF9BRIyMFIiMU3PRzFjUORaBVHaTESsINCwDVLzpv0DQFFhADZpPgTjYTIcFPBaRYEgAWiwLHYrZGF8 UUplRSBjKQZgXN6AWbAvKXKqYAjcLZQxZAUvYSBimh7SUGOcYRPmNbM3KKXqKXCqNZZjVJvsLKUbBNCd PDT7CIGnCHTsYB0BJjEiELSrOPE8FJHoODNaMPAszt 9BUQCeBIZsKip5RZQaTKNuZVIrARziAUMiVHWnNoG0VQTnAGGxCR9CNySpQCFrZKQaPVWjXHZlRXVbut 8OSJNkZZOwFBC7SRWeHLVySUYfUUohWCHyDOS2EHu5OXZkQDRkMD7PVpDlGGBkSPD0VVMgJYOnGLLosh 1IJRChSYEwPIlaVULpBMFeVVUdUSkjLFLaKNV4UHm9 PGTsBJJwAV8CKqQySEMyHyX2ShJxGFYqNFIchq2SWTUnHQJbKFp1ZJGeETGxRBTgQPn1yzXckYPjCZh0 AB6HH6PbxmPfTutKRs5Yw009JFY7EFFdDa0PN9jtKg0vJNFoBYTFXs6IXZi5GXYmFicoWLv6QZHvHeY1 UTU5WCKzQag6EmQyIFsoULl+LWaqTMS7XhT7WXrbRz A9FRF7UvtxVLXdKIjrAmZvPYIbDF6cWJDIHy4+EIpjdUBteOxvCUSWCbW4DDJtZRyqDXCFTo4F ID Date Data Source [id number] 12/14/2020 08:33:38 AM EDT [address] [id number] Name: DILAN KIRKDOB: 1960ex: MOrdering Provider: GRISELDA Parra Prov: GRISELDA Reed Provider: Procedure Performed: / US RENAL KIDNEY BILATERALExam Date: 12/13/2020 16:01MRN: [id number] Number: [id number] Class: InpatientAccount #: [id number] for Exam: akiTechnique: Real time sonographic images [...] CONSTANTINE JANG On 12/14/2020 8:33 AMWorkstation ID: [id number] - PS360 Name Value Range Interpretation Code Description Data Morena rce(s) Supporting Document(s) ID Date Data Source [id number] 12/14/2020 08:31:00 AM EDT [address] [id number] Name: DILAN Ozuna REAGANDOB: 1960ex: MOrdering Provider: GRISELDA Gonzalezhoti Prov: GRISELDA Reed Provider: Procedure Performed: / US RIGHT UPPER QUADRANTExam Date: 12/13/2020 16:01MRN: [id number] Number: [id number] Class: InpatientAccount #: [id number] for Exam: elevated LFTsTechnique: Real time sonographic [...] CONSTANTINE JANG On 12/14/2020 8:31 AMWorkstation ID: [id number] - PS360 Name Value Range Interpretation Code Description Data Morena rce(s) Supporting Document(s) ID Date Data Source [id number] 12/14/2020 07:45:05 AM EDT [facility] INFORMATIONPatient MRN Name Date of Age Gend*PT [id number] Dilan Kirk 1960 60 years M IPPT Location Admission Date/Time Visit ID Attending [id number] 12/13/20 1238 --- Crystal Neal MD([id number]) EPI ID CSN Admitting Provider [id number] Crystal Neal MD([id number]) Attestation signed by Liliana Delgado DO at [...] rce(s) Supporting Document(s) ID Date Data Source [id number] 12/14/2020 07:39:37 AM EDT [facility] Name Value Range Interpretation Code Description Data Morena rce(s) Supporting Document(s) EKG [facility] GNFYYk1kDqYZIbTww8KuOgGaFCLbOA3aytm4N7I8hTYjG9SkrFDtl5exE5WxD9VvWKCoDHRFSB8DsGCr jb2 [file] TAmZDm537RFYWnHLR+certified pathology assistant+OvWWHFqn62tUslLdQq1RFmZfTECgTtllDRob432PCBL6gkIpsXoSyMjUEZ lCoABn6InnAQSZfMcn7bBfNpjWDdFKO0pUc3cp4xssH+fpFedUDQ25qRvbRknBh5teO3GW9qdrfJPYiK a/PCXyZh1gZLcmyK/BWmT0Pc0xDXy0O0mB5n8OlYLn oLJ+vW9tKeXfq7lpRphYswOrvAnSjvcdoiKhQ+uqrW61PoNWafHVL6UZ/8E3/a49KY9Wep4sl/cjLiCH WwP0Y4cZ/4JzrwT/sT64I7jz6kJJ01e9Qu+LUhBqkppR17cRyWC5gG354l4VwPF3Fi7r+8iT/wNlWarA vo3AAX4mDfy/hOi6UQ3EfhfaIOuxpSryJj+ERvqoMu FoWD4ISMsng/0Aucki1kGiifl8533WnKjeowZP4XyBzfYvhwrkkKYCi7yrgvRjHlOMenN8k6qUKicTwQ mxO5bVtIKhMH4EoLSegZif0DPfMVOPnD99V0ATmWMGbAhdQKlyrwAJ2869k0wwe00as4COD7OoaTp2zE Xuh9g2AcXfY76MpupR1MOvzvAuzcLh1Tp86sVWCd4Y OPBN1T8/ApvyHevN7xBNaLP2tsoMZhkcYWeGEYPkbghoy/gG9gRc9SHAbrW0saJ0svdaFZ5fQ429hoZa Hribmb+pGJKSWeZffAU3g5I8Hh8Kr6W3d15Tk5vkW6SfeS4CuyN/PIM1SeG+auONEVJ/hTpLO9ZLnzfX caaSzpayWiFoqhq0YtpBxRqLyUYU5Dgd7hCgIHuVVL V82g6Vwl/YGrDlztQHGiu/oDxYnuagfuylF/4BaA01vklkpCYz7KNMKJfeie03k68H4dUTe1TCSHxLiK skkDGi1GkEuyuSLFW5gYXLytwBcKmctGHDFChlWIT0QEZF1b2ZxuDH/qE4/6xKP+4MgtIj+4Wwc0W2j8 6jQrxA7YPa0dU0ADTBa5DlxAcKltfrFMePOwILfuZu 0jdrA/pHZ04Vyv/mTPtD+xg/3JXNiKE/panel machine setter+P+xB/qqqfhfy54Si1UU/i4jL9Kxfr0biZPvAqtGTRLLW [file] rtj4fhofiwD7JN2UG3XCiLE2p4zCDHu7Z12E2G/Tiera/VE8lD9hJXgj/yxxAEpfyxfjmxAZMS+u2r5Yx mE7rznZ0bdhW+Sqsg0BKI+NXZkkhasq1rN6V09FaeV 707sjowp3m1iAfFR5WqG2atww62bF1056jAar5VPmbj2Q8Zie5JF3eLNFg7nZmChnzF80ExmUbj3R9oh l6a9wUtMF+GY8Yd3M6wh8Mp7E+LZ3pr5xqhTZ6tD2PoxOH4yV40BSqZaWsrlbXBMVA+HL3wsKeU/Cwa7 TN0fU0rm4D5UCwuEqA1MWDavZouina+SuX930EbYan TcJEvf5u5huK9F3s4NoaxRm05k+1bpV7141Aa2iyoqVAu8Y6LxKrXnM8q+p3B/KZzRorbViDrR2b/lr1 hE/M127B/Gbpyoq6z0lyNZfT3qORiI01ClkS+3Y8v21w4Ieo2RTfKqjT2yX+J4a1iXwOvbvz9se6pYJU pXS83adDorq5JS+tFxNukM6HIrD07QjozZ47KfGo9k 0iAppUDVOB713ahG37LZyF6tLzog1j6mulRKIDisWUSGp9eEAo+DVf5cu/qa0PMtZpTLlKE/LF+x8mnb wx/OH4RyZRvcXDpoiV7lN2IQSHWsiz/SL8R30FALCTMCedsy/SOjxma5dUqzjhGWnT9mgXPC+TYX5qeY mrIthGFfRfBch20sSGa7V/hx90LhL8Bg8D5uqbz50Q TVQN16NRijF+JWMjjaRG3giKqb8Xy9M8X3jRvutpnwVQ/53QS5kY4ae4EtxJmzx71mq+WjVnZxusEuTr dT9tK6/QVBYUI7bHQACzN71H9m43nccBcLfHECG34jO2LGPLgPLRPaho6n8KLLDs2FDfIfRD31paA3g/ yxxE2k/BR4xldwysaC+WOJYvLHEsXkjyXus+SP5SvW xtcznpGBjl1ZxCyDX6mO9OhNfS53y5P/lq+G9ktCNvvvZHNiV+9UI+I9lsgSoL4WQLf/+1//6z//uC6L O7r6z//553/87/Y///in mold coater//3nv/7zL0//Q8njn//+l6u4/LRxqBMGui8xHZD32x5Jz/cAg2vjpM2mnDI1 [file] cn1wIfb/32xbVvufXvM/Ci0yft8xNQonA4we39m/coil former uuE3CV/99cvXerb+lo1+1+eq3CePt7gJTf/uJil7bolp81E8k/IU6pJn8sBr6gW5aeH5XzaV/qoifzad kkbmlsjb72dc+4fs94qg8vDEBl731Rfz2YxI/YP2b3+OTpaiYt653x1E6cJDIY2/vZ5/+GkllPrt2h2K ndvfanP2+M+FdhbqG/Aco6JNblg2PZl/+3nKo00Hc7 H/j018N8s7QZGekqbU+8VlMqCzI1VXY27+dooRynl0IR42D+P6mE1ely4hbZuytv37o83946je0zpv4J qPgxx05jK/keqKia2zNcp08LlpL3R+0j6n3kN4m+C516Hd/c3ycN6y5B4va/2gficJgRit6V9pguy3o/ k5Qtj1cu/1d3kF+Brd5q+/KzK+xK+/a6W7w36JT0u6 RHT2eCjk5i3v4Kk/u/3geLuw660wvmWqwL+Qf/tbNPz6++o48m9/KxzEr7/d0EL7B3YQm8dNHazkQc7d Xd+ii1ZAYqgz+7s+kY/85RM68aaPeqyVakv377fkmBvizNkTw8L/7BcvpozX3g6Yz5a5Q4wImnKc9p4N xACd4oFyv/k5Uyj5Lkvl00j4T80JcdP2eG/fh7RQ1q OD+T8Z0ru9d9P0Q7N5IfE4dG/A/n6J8hVt0e/1r6BRn7ekdhehqm+Y7OpF3+etgv7R3rXA7/Ae02Ae9t 9ZT63i0i395qy0D7M/cXg+//IljZfv/h1pbTy+kn6lcCBYbf+//BSjicy691mA/FiA93l+/fdZAzKc65 ceeeSppOByMTtRUlbeYRZ9z9HDez114mM9QihlLqVw nXr+oq0mXSO13qWD3l1wecRn2969/Xc7VTw18Hufmt++8emZn1992nyMwYg06mi5ludK+vO9p8xp/tpZ ZcP4y9/WLdEnEjE6IurYiI46BaZ37/f2vnM4Mg0iYY80mVUp+y8yWE1q5Yt9NjR+xWs7iftp2lwsyZCL pb/P52v/PDqsFr9577J1Jarcx0F4M4bw39zh7bbNH5 /F0zt/f9qzDi3Clb/1wRgpb7p86wJT9Hx03lYDTNjzL149Jx+z96/MEt085GUWD/T4hZI35y05wNAmmy g8ODdgyQ04AlPla/ywl6GQ2kiNMyZOb+UUUjCkkZ3k0oNJV72OfpvxUrGDqi+o3/gCL03SuelcTL8xg6 bims3Vfmw9ynvzoTPC/P97YUYF19PI49cwLe/w3f4/ 7mAIidax3o4rX051PA//7MwC31BNw4SG/QK+4vJAs84I59S9gylA/QggY9a4jew8Bo/r/6NrtlHnvya+ klFqhS1feSJp/c1z79xjU/FVvasfbtGN/thj5rf6Tuy3CkatK94G02l3kFKQc+Nop+/si2Jy2UfCfvlS B7011xOke/dycaWLEjiaL08thfGXT/ndi6+fbLqa9g y7+JiGtFqy7hi2+KhYLtchqPE725955x607p1kt/Wqf2zFg2KKKlFstsw++kF+zH71Wlr5r0xax9ftR+ geqBhR8cVS9n7Sz9651Spbcjr/G0818Vi+vhYYr7/H+k37o8kj0amKi2M+7W/RdkAP+vmg7rYhuyfl/x yx9mIbU4UkGWmEWIf6ULDX+yzzWiNq3yXE+/3iq6U7 nz/8u75lEyMPeQX4KeMativ/FeFB54CHZccH/Bv2Ap5b1md52jze24e52p1/tbCotTdHz+4VcIX7LLZz k47c7Dg9at5qBtLixiiIH4bp1vcR/0Vr0Qc4b3T+I/8gv/lXc/R5NZN/xTQLh1iSp5ueKh0uctBrrjmn J/Lnd0/W3K4Br44/erJawDri29Sh0l/mNAg1pBqe0U 07v16X1PLwgWo/ymjHh7fcW70Qs4T/lX0B/2skuk7VK+hj5xa7rnFn9szcu+hv8a+vBbhjNn5E56eJ85 V/L86TheFkEhNpeCH7MlbD/Z39/zsn+dmO35p8hZty4iY/37G0yf0y3KBqwB+5Ud+Rj/2Kbdz3L1/Mariela Af/V3o72p+4CeLl7lB13f7/IrMC0D1bzdJ+evDgXMt qUd5Ww2/QuKr9L8hE/Nze4IIE/FMzhy3yU/37Ok8HBAirO85wAnnjUb+1bT+35+mqI/+Gvpr2L+20I6h dcWgTDh6as+mob+G/hrWs2F+E1/qn8Qx4O3a04SfywrUbVH7gZ7JJ4CxLl7N/skKpx5Xy1l+Qoh1h58r E19V/kb7G+8xeVm9usgF3+RvJJ0v4kcPh3504Wlzx/ 5NfJXtJ//nXFu2EiME+cePj5mT1tk0zxw2Sc7gmf76EvsDLm4owoZ/arEwOvt4Ll5Txmfid0V+mt033P /yr6o++zldBu22C/iEaj4NwnlK/h70F/jutvPv76ob3ls8P865DYVK+oo5ShyWhp/IHtV57orsa9S/Bt Zz9P/qBMyOdjhp9L0NyN8DjrFT/Qwj0iSBEcnWTqfW gfUcuI+h6QrRNkXsp5HP9t3WfRTfz7liFAGMu92IiquKvQcqqP/rHfo8t2P6urw9S/h5vqscKiKufPvJ 8xoH+Qft3/6efLfndyW+vqsQb8UDJfX6/C7p+7lDX52NQ7Bc5e1e78Gddyp8t/4K+wm4wzT95je+zpKW Jt8ndmVH5QBs2//ahlth4s9n9pdf8skEFaErpv4/l/ D1oYYcRzPX3wdUNw40sBR/tcC/AviCgwIzHh4iY/FVjoP2/l2K/gJfLeCrNTG/ia+kxOXW6nOl+z5as/ mxC/irXrld6QFqwurOk+ZiwqUvUq18D+X4J6tZGP+oE8sEr3cV/Ca+pheRg3lcvkk4enSaBj6F8VUHsF At9Hf1+jpU2113OnjruN/9uzC/wFcL+JuHe2HkV0aF /gwx5XBZAude2f/Hwb6TccGzPWl9gNxfAg0AWsytKf0oMee/8fMy7F/YmbwcQ7x+Al+ubMz9Y6mh3tR0 kHdKb0cP+Dz3wp5bnqCt3kc9yBFqjxVmc7+596C4CkK45wW2Kk3xUnr4JO9xI/0yDXuq1y0624/Ebenezer+8 79+V+CrHyjG/ia+EdoPKlb06nylK/Ca+dkrcI1ipiu 6hjncrJl4adhp9Zs0ibYz399yQz2V/F1+lzOLq/uvWekb+ladcnsxV/P+ef/1GjlrHiAB8Yf6ZsrO+qv yWp1yV/5KbXI1/8RP9xmdfwAlzZIh0W+34aNoc+Hg0nd0PPc1/xNH6D45QD2Afe8+Jksg99aY5vNDnpM Q07tgxfkf6rftuqcQ+A1+qnAo5h5sjgk2B4hwdYE0o QVu48s5eA8XHD7iA+UlTdlG1k27ltsEvh2SVEB/2Y7ok9kuOw122Ye5+Gs+hsx2826ashZK/lZh2e8Jm 34uE18p7+n/RPpGRV0kP9C9/w73VTq7hyg7yE058ogZ29mA/XyjgprF5TiYhaDPbvqV/kYF/JfYuz5mp SSv+Vdbv/1+T/l+wmY3mBqdqkUQmF89g2s7Fut7/0L T/005ww5ygp1qE217pz2KN/Kurpf/b4LZosGblZD18Xpg0g+22wzewit1/+Wfmu7/+fs+//LvHr3b+V/ /XXy/aDtq/+/yjLJ3ruiwhl2Q+FXr8Pc/ev1ctv/bj1cp/gV478WywE7336mGyk7jg6ppxdsmkT8wfZ9 vq+BZ7whw8eZ++fczRe850+F/+5T/iCY24NtyYU25e hyNHt6S/fdXwv+fLf66+OQ4x5OgpBoz+zxancpF050tFE7ybU0pVdEw2h3La1Pa0VxYvvz+r+XW2+j4y yAdtbbTT+bm5Ee8h9ivIQv6mn/BcidEncfube9w9/dAYF5hj+Vdf5DbH+Mqs/ytPUzQf09Lo/zVbaN++ +0EFP8P66t5y3/vXgK/M+v41a/xs1v/7V7v+7S9rvG G78bPt/t+33fqElvgqadjadCa+oka6esLaMJrRy1azcyuf0ez17p96fab/5AnKOzz19qvl8Vf7vmHr/6 Cd1t+4ivSv/bTU70WxZivbFx1Yu3mjat7nlTBxrR2WW34m0GjVE088iM6jcPB0FIp6/p0tF1/BxBl51u i3k7sWW79J9f4YL1+8blYxT5gH0DNyJhzSf8vNfT9x mmcoR7bhkrd/8+riq5d/+3rfUtNjcKcgJF7AyU/R/u5z9aC/X495CmHbePh9enz8oFVnSC5YjzMdLz5L V/Rf47ppn/xN7llzN/FVrv/A+UqyfabUz2C39hmx6ryPrSSa1d9E5zuvBa4HINI8TxbhViNwU/4ezZ/c o/JTMu2yw1+cUo1DHk8/8cWo105+lWZ+93so5qeaC/ DAWGw0Q/kb+a3/cJRrNgPMfbgBV9QtzZRQV47C/ZaW72/p+2hLy/o6QZ2Hlc+qDvoL/fYN/fYN/fYt6K +ri3SCjbu+3ZY+vrxya6cW5y12S/1WwTTJq8P7BD/77WejI10cuugT9dkj7H/masUPm58fN67bzHtc0v 3+1Qb/aoN/taF/oqTv2CK2+z7aGmi/+lZ20b49kb++ Z//q15i07h8+1Qb/as/m52zoX+3Z/Oc9mx+5o27PvHua7VvJ70s92c74jF90DW/iiefqt1axnpvnc9S+ 1VH3rK7U/jTk1xV4u1vc/l3a17M4GBqA5x3zpq1AMc7cK+mxkNp33D/2wnoG/6bbiizbWs8wE/PrtqG/ 5ylhG48d6qw44btyxAX/zWuJK1w8AlRx6Ar41DWdVF +G+LCpA3azgxrsXCh9u21RwCy/H+2N+j9Rx97TN+7d/Yt7T97ia1kgwb5ABq2qcVPstozywfw90p/d/4 Sl4tA0y6+3IR/cG/3drU+1ypOi1B/ayb/KcU7+6Velqla29TYkry/7d0M+xV0wJdyM+kS32d0aY1+99T a4h74r3huw059X4//7G/GA2c5E2mc/9/fB/U9EG1ek t++D+yj5V/nd5F/f6CZ1HsgiD/s7aH6I8sU15/dNxHDquo7X2csrnQ2D8h+PT/Kwxx2zIqQ8Z/p/fwfW M/TbN/TbdyjqY/7J5i6mlSXn3t0YyJdhnIvMW5z3h+XfqkD07BbmH3Y2RaVgwZ568QHE67aJk64fK3D6 rQ/kg46fBq1/Jd8mW92/HfjKR/NzfBi+2/Pro+9fh3 zQR9+/Plr/3avXC18U9BUtV3wFBzzwZp7zXShA/f7/qQd14vW6VHqTtlq3M/SDG312+Hank+9KMrwuW31 +Xdd8ImJNjXKh6qrKdXcd3nog9Nr794zecComYbor6H71CW0aa0c4oP/8EwppyffsY7416e8JaR40q/Q L6H2jbdpsGko/j1tePq2v39dDFEMvKf/K7M/R4v550 xajibo369sbiyXx6//pc+G7rA/s0tL/R/r9QKL08Ss59wbpEHiBfnzy+pCf/KttcrR/rq+5KcYB8xZq/ qvLTPiXzb3+rzu3v/ef1NVG/5rb94th6ebZ+If4o0csTnk9olHb7Ogt89FVj0e8Ts/gq/2G37quxmz90 67k+F97DbbD/+Orc/1C/+Orcf0+/+OrVv/zJy//0i6 /y19khtxx/ZLfmtzvwlZd+e34L+9ewnq3/t02hhkZeCyx6p8rjE3tyoynV64W/sqz/6+/UiHlk1du1zW OAJTgjdnZgi7vuSQd77chZFvb4JyG/F1/S0OjROtJ45fNFR/fFxVczx/biq5f/6+97/lA8GocuZ0/Na+ Ttqd+p1GsgZ6H+jSEySQ4rN/34SUnSa7Q+Fd244Fsj 2699TwtE6u4YK6+96rQ+sDv2r+M+5l8u4WDfrctN/WhL8GZcZ6m337k34k+C66218W/Juhx5f49mSR+t /+zn7yCrYY3Rmzp8O9xiue1sFI1sZ8ism2q+58t24hyhP3T+xncbb/hxtHNQ/6B+0z380Nb10hbgQ8Tq jPtDm233jw5tT+uFo2LUHR4PZ+V3E19V/kL7uI/CUH /lg9OtsOygbJ/o/wWPtk/xCLTf+LqDZr5bzmD9Jrxj9/eMxpNndH/PaPvfA/7VAf/qAF+f1cdAC8e8iG 86o/+FlvVY12ckBK5If0y9lc6a+K9pCl7jl0ls6q/gSO/fk/cn2vM9yp51de/wRD5X8f32tbH/7a2O9P ixo23udH6m+4BL1wHx40Po9/Xpurdj4QX6l4V4vS2e SsiLDg7my9rjsU+cmS+of8+vhZNgtFS25bmq4m/+kec58evVC72ht52JEkK+7W+1efsr+lvJw2u4ZO/t JZPOwHej+gOQ51lvtg2Qm6n+bHvYk/xv5ucJh0k2sZIgUi1ejY79FIKpoTC5RijIT/O38lgz4235IN1W uQa+QcJk9jnvB/t//yys59X/+2dh/f9m93Xg3Rexf5 5W48kD/tVZC+5m3CsyNXr/tdzQ5vt+96w+h49ht6II/Q98s7JOa4G26opc6Zh9jhn3i2cED9oHLzqDHw CvjqG/hv0L/wwH+TcBe9Mjq07Gp2uyipeywBSC88tLU80zRxUDRB+Rg7V3mh+V7e++f0/gf6eCmr8rjx Mn8vv+Pcm/yr2Q/hlyL6R/htyzG/t3b+Rj/ya+es/I //Y54mSm2YAmm82q0V9aknkrNN02XKiWJ/hnON7+R53qjuXx3HnaD/rtB/LBU/XDdSu2ceYN2aCtQ5hW T8kHM7/lgyflgznXF1+lvsG5+Crtzc/FV57ze/FV/guci6/y3+UphGMPp8q//qv5hzzb5NJWZue20IZE /+zm1z011Z3/p/u88qRiPIq/pOAA2yKDZgn09NquMy 8PntP/g+n2x4VEsL524uSbG9o/0fycE/2/g2H1HE5jupAeGkmD6zdaC88X3QU0f/1Ey/dPONrp//0DfH DG6iK8Uui8/1di9ipV6ifjfH7L/PyIccsjkD60/bvgMnmw27FY8gfDHRY8+Suef0rYiG1F5NqT+CogH4 zCV/nc51WM/l+Ii6/zwXzx3xuq4ORXRhgkcO///ZCJ /LZnD+n//QC+RkMnuL6xH+SsoW4XAH9qOjG+c0IO6h/mZh61kVvyttuzMI63QsF2L9Nhqv8e/G7QbYX4 bp/Pof2/ENr/u9K0ey1F2oFCn/d3BBn1IUqe+glSdvJ7HYsSf4b+HwEc5yqY90v88o23BDxUktHgX6gS Sm96QqfN3l7U+Kqe+/3J1TeHmWK0fG9037rv/Y189H c1w2IWdh5ids+nugd2R3c1chEPi4fI+VhId7LZn3p+lWZ9/h09SG8IrOc2E4BqrN7M/Ur+JcJ19ZOR7N lop+3IJuhbnSNoFTb9k/ZAgn5Zm1F/shl27eZ6/5LntIBgIC08kwzquib1MZ5948jk/oY4ybO34BbY03 md0qJti861SrcA1OmOw7s60v+L9H+D885Bm6d9/0Ls /l+J8vv2asAcXHhf2/8diWTOsVN79vA4oYZ+AeYb0MpTyi9Sdr7+Clarke+m5V9ZLxahvr5+38wHPsX/KuA s4RioOrq8jbxWO+9/W+X78rNjVVvh+A68axNkgk/J7z5G+Eb+raO2Z7iWM2R0R/CA/D2fMyEohuW/q8C 8lU0rByN9wW2tC/PRH7Lj+K0/wZZGskXNwY5DWymQ/ cv+ObtGZflvePx8PqvLBux/3FGfu3C6U2CnlxbklMK+KKDWngVXbJ1XOMrWtX/lk0MVqcdZ7jl/ZwAvo jywlWDwo4LlH2S8LqO+DkcGu8ltrwCgk1RTXkN0Ud0Y4Jp6iumZQf2S2Tn2NwQKopJOkdtz9KnryGa2E kSvl4SocDYHytzJg66v1ESy1Yqi7Iw9Q0QdsVFtEAE 3gY4W3+JNv3+XytYlFiDber4JtWdS2M1Rws4w0YbNPqqh6LhubxtQMEiYDyRp89C0obvwKqu/SXg/G0o 3vMrTotRlBRYT5thEFwQQw8P9R6cnfT/CTaBrFJeC9BeV3g0GEEtBFRZpTOkIzNcJFkWcUD4EosNQHSb 88pkO0X/ey3Jx15B/H9xW0X4WrgK0jOCo758AxeZTJ nLP0DznAE6AK5X3s3V6EfD3EnxDSslH8ti8eLf+bUqleaYoglgCieuE1djeiAgk/DGO+Fw39qZ6CoN25 PTWaZEH49OlCD/XEiqezVGgah1Spqq88MD/MRqjXaztOM6PVmwdpeTzI6B58O5WaQrTZ3MuB10NDlsSb hy5ymBGBht41NzTbatYvp9x3T6KiZoIaa4Vhl2F+Ei 4bgvRZkfni8ItbNEdfuV0gt56diqdE6HPzaTgJsaZ+OdxcxrW0MeMUveCQhvj3sokwm8AneQ3sG7VMwR /Z4O3/pRb5C6IgzGaA/xCzmzf7Nxu/08sr8j7W7OaLfqi4if1tKDd+YuHVKx1XU7QzaoyiAALZ3Ut4xt nL6iC5pL1x3A75ZqOM6H1R4bQ9OGt8wRkmE+CVAQyp L1GJ8YfTgVB9Dd0GUrN6Z//PUtkQAXgMnYfCm0EIC/OHHB4DsKZEb3Hvq8It/mtVFkRqkvIobU5KcQ4a 9PgvoHFucP4O2GKBv+wx7yV660Z2tvMIs3cibydqWvQnxMKyaAvq7hpjANjkSbsRv4i6eJiBbKesOEcB 8EGvwiEIGKECeWk/vsDMhvRpA5VLnZYNalJbLTMqrK CTju5Uj6t8z66Yynb0Xn79K5VyJJ0tC+uOGctOIIaenCF5VfcVmDt/WiXAdq/M9umgUb/77jLHFSfVgC pLjcHNABQ3NxQHEJbQgYTtfnhBFv/2IQMFDB/EijAvl0U+l8m5XPkal7ICy1p1+tGb+zWcIxmFwHxIky nYoy8InF0+XfDKs2UvJiEo5F2cJZ8RpZbkA0AsS/4j UsfofnAXFi+bh/57AltZeyYHKdlaZXfUP9jx6zV+ttIZRB+rovn/vw2W3qdeSTqT/68ndfDRjXATxaSL p0upKSLZc48RX4bo5PCuKjk8T+7205Z5Nin2DrFVjS1K5AAKsw6/yzvEYGnI9cbpklvQVRJ0oYV/hfIo 3kdyXYGnBi+sH/ZhJIVKzrVNP9NH4wD/ivNfwvlDv8 V+KNxdIh/vfRw/2ILcginfK9z8C2Siz1KdXgxCIPgjE+t4ysIF7sr9M8iRaE5D/x+vbyPh4WcRlbZz+V jP00y1YprSSq+A8/+eUo/8fp3Czx8mlgP/3xbonb7L5/leCfSWBPIOUw/4KGczeYBJwKAN3vMN0qfb8m qntCKc5hs+LfU7nGwWz4T7E3F9Jze/FmUXBxotcYXJ qnQtVXJ5ofoMnX/vrHO41M6OpWebA5hR42xMM4ECig8ruyXzcnG/28FLSpRDBbx8Kk/UFUikToe2guJt 7mfSXwobshDp49UYb11WK/POq/iYML53nKw62flrb43N/n/IaYc1z3dvgFD1ET2m/+n7vmtLsbTwxymI sBKd/3G5KRluUXQuhQX1B+6FGCPDggr9JrzUc2H9V9 eHBpUvIuSJ4pfyzk5zI8OK1ok3K6pah+7p0bPU7cC7uImRj/vflOEhy4gXcM4gvy3sBcLsA2+ZJO91/Q LVxebx6MyNw5oth5/0EtyBRqsT3oRosWFkYWsR+oME8Q/Ud8I+LE54G/SjgGxInlhP+8BEvaDFTKD/+r rsU5ggO/JYJUI/ZPOuMvSKCMdlTu+PfP9E6zsJ2mOD FuLJ/6g2GCVYL62x5dYEI48o+DlGP+48QI2lvE7C2RE/yGfdzoXP9ucaypT+6SuKh6r6oONytb4BB2ys Bdz6WibduxJDh3t1JjKzLQF/1ftcXvACOlr/46r9NZ/9lT1toZ2oc/Hby9UPdopYtZj8NrnyD9GPONh5 ckqg70V3yR1d6/i6tT12TX8wAx8FJsCaSX8gLXQ+Nm cGpAkE1aeAyynlOYp4JTJyG1+W8V4UVjVsojloPogQ0PWVORdqQOBnlwzwIsqmd/I723U4xNXVoUB/8X 2Qz/LSUZpl1r8SlgsfArMf00Eyw//h0IQy8SZiFT4/3fDnczdqwKvDrTbavD0RVPn6Xl06hr/r8G8M+k nLag2G32vHgdv4TM/miJttWOqo7sWP4uUKGV/0fBYX 8LGmVqUCjx7BOpDQpXoZKM1Thy8DCf2tNOiIGyCaWGMdQcZC7oM2irKxh+a1aRvrleak6/65r2CWgf/M MCIVWAQdX2M3NYSMYRlANC3DLnZIhLfaJm7RTAXgeaQR2WlO9EYFlShbEOlsVwTpkG2cG4pXrZ5CPnnU 14R6OHaxZRoxQgUaW1mR8uFIqrFNSn0dlKL7ctLrxH mVyYrG4bJhLhdvNVxgvRMqlrnnWW/ckMRjTBFHOSzWQaL7YxQJYMRSHFkmYW17izO7pQC9w9kKYIZjFV 2S0RSUn25UGcJWnQLY2kWNcqDK0ENnOTNmjQyGx0k8VXQa6xl+/gPKjYAY+AYgaGnJ6SGcfalLgj8mw2 vJKR6iDGhIQayFLaTMBob9pUSaGbRIKlklUO8S+dLF rCAwF6QOEt23v+HPaJ7ijhlNTxVyDUXhPEZ2VTdrPD6uqUsQ5SyhLfvJJ7ADmPyyEGD5WwtBfGzSYQAz fCXFiJMG+Vii/qtEYVQR7T9sQlBnBYu0NBP6A0XeggOLCTklWWMssZSRvhI81dXPRpY+aaoHpNvgMeSk FqiWNrI5lnDUWOPDVpTJfwNyFKsRLYMPmKG/gOYu9V 2AQ2jM7LM2vhJTS+h7ELelvFeIZTQJzMkbgQIGuOuOkk6Bn1ynRLcAZdaBpnqsGZoJUxbKZzagI24Q8W VjGvKTYaJiL016ckeXglCVSegXKpaawM+aTf79gmkNxxCJtb+yOSnSSnsQvAIMSH8eZVPcuNY4ayKTFH oUZOgNKrrX5790WsJKD29ZTK9AorC14/S1EquXhRAL 1KfwIsvtYv2jeS5B7PpEJb6tgutCROKRP93FR3YurvWkI3lR9FbMwZffvAllCuXxkFetmzO1noC00fEE o9FQvvTXq4Kzw/CEZ6ITXicz6UEXtA4oV8jxXnqLMzb95ZKtP50d8AhqFmX/NZDj8CFZscYYG8fJit9S zeeQS0W5HgEByZcw4NwcNUnS3qLf4MpMYE8YYYyECF pXmXN4A4bUWBnKP6gNEbTABBHkXoTucADt6LSAfdyjXYEcHN0MZS5pGtszUN0dVX72oe0V8NXseC6g/F P1vAGA8zVECvBy28UHdFLA0YkYqhidbgWVhQClGtJtphAqBU4KNahBhU36fxdFDQb/BCV1/+La0RTrIF yMVpLXPifN3XPsOE7IoI3pu7mmXkyWg2jbCGjouGqJ i2IHPBNP+0koEQvKi+TNVXDd3GbBRzTjAp3pfssl5I+YmMhyALDk+rHpJG1ghrIT+1RrcZFGHu+uj1ml AjenHifFT/pnCe0r9M5Ak9cbU/j6Us1Mxb05k3pmtIbBdlEzUBI4LvS9o9CIHZpnHYsjTKG21wNgZQEl zTJFtk0XmK4v3dG1hbF64hDu/xdia6nxZV4Rp+606W H9Gw2gmcHfx1EF8DsLUqUMmCZMtq/Po9p+lq4pPRKsqqRCS2EAVZ88MeOcIO3umBwIix1PkicVQzt8me v+JKRje3DnAUTH3LrYw0CNkgs/JHRgpW0uMNZYKnHed3A2SYrigL1LmQ+8TJNrv8SmySb2BRm5SC5FrB lYeR3ugvI0kYC+nseH0edBS3yfQRmthCzISXwjrAP4 8mRbYX0uumNz0WLMEcEYW2NdQRyLD5kXSItdos1ftpMRQoRDd6JtATdbPcai7VsxCTZsWBzYBqAuo0Tx Z96MiLfO8BhITlcDej5kNvmSGunV1R16CYjJSIqQ9lyxAJdvrEpQpKTK7Bol8LoXQhbTGhE9xeGIlYko rrXqE0K7qt2rIuk76eBPfNyLK1cVFJUsZ49pabMI4h od+4NL8x9pGUIhfKG6a1okmB/XiPtksKS0XqW1ES2Q08AyEptofPgbU2Y5B+PAvBZkwPytQ0RA4YyRG4 SRXIIOk4OcRkT8czJ89EPpgPQkqEfDIFHZvMZWn9dFlNcP2PYlkksp4VVI4MXjQaU5WuYnLJQlO90aLJ gbhP7xX3mJU5r+FoQWMLqANHjEaZTmkDT+iV0XjHK0 okOF3TSC2FlJeGh9KWkv+hOL9BkYVLNYiGFxqTHHDlWaDSI2CaIsSKTBdwmokLotQfRPkCNNXjuJm52q myD6AzlsJknMoCxB7IjgnRTs3lLt0GoUO6O01gBqUSG6b8fPsIv3vunENjIerOao+e4j6pyDAzyrjTgI ADe3VjDXp1zdwI9z0aOJop4PqMwo+96j2ygP1MHMkF MGMZ+M2sQMqmO+mS6715isNt5xsH1Kv4nDJ3wXWYfYLoDd7jqfdABs6nfBavvMCOzvFfRy/yHkvlfqJz Sk9AZrKDuorsliSri4lXYdk9zQ319Xgr9gMx7dD5XLhGHW73ykVfiX7OFp+OVmP/qKZ8caXnuddQ9+xt k9/ZlLiUcUdipd/M7Y2Rtq9fYOZohwye/IPcuc5/0D MzP6Z2HJi4qdv1tvf3Ogwt8f2Gunyh59d32gYAEX6wdbeWKdUZqMmFBTmfRI+3ukFBNhVGs2FzNpLoPv 0P4WyJqAHOGtItINa99FmEKObKZX4D3bkV3gnHyfAs3DERTd46Mv+4Ai9BfheOGopRGb5yE/jpKv8lUA eIHJw/DD9NE1kohVQcUHIzAFVvIDN7WH5F0TQXLFYc YwXTvBPFlx7WQryZkMIbYDnWRQTIU1XqN/ixg4UFrB+p8h9YgVmGNt65c8DLUquT/TdiU3ohfdkkGrH2 VEE+TbVnloG/eYF6OSgay4QMj0DtJ1XC02r0s2s82zMuA2q6LxuTI0MbA16ZgCfUtanExVOhezOyr6yy F0wWxmQhhmBCb0V52c2mDCzMqUS8ZITZoESjHtZvCf bWIVGYR2C+UQKogzFYD/sTtrfF7aB/qJ2rE3Sh50oQmv67RvIXy12lilYa3EKQnGl2c7uxIK7tq4qG9k korcMWm/w8JgboouV5Q+BvigNrK9MrNBvNrYetLhy9BS7OLypcJ11QnLFDfJkIrFtqdiERWGh84bbeJg rU5AXMmf915viv2qysevebHUlP9rGu2rHqTLES74/0 CffyHRUiRyyHkXM0nIFNMfxQ7lwj3sthFVUVJDbrSmHDvhO4yhALG+PlzQ1gOYBrCY63kPowajtlLwBz HJWbTJVCqXRNV6ZgQAFE2Ul+jFbIYIqf4I4rE+rA/c2QsoSTMpIJLuh4f8NSHJd4LZGED8Q4TcnoExiJ /JYow45aQc7/ILDaBelEEVitDCcO2VjiiAjRNiIDXQ pFTEuLBxutykA1i8aihQwuM0L6XmrouXzRDedBwfrVTC5gCpSXjXOZgCqQp7FJXnGI/BCPjy1zeETnSo 5yemzp1DCSU489PQnVnYcvXafjglhJ+04G64kYcFrY843DrFuFOHpIGYGXngsB6ZddWBvI145RM5PVfR G91F2E8VvJZB8wz4SKcMSDq2prxdspmoPt2UhuBJdF L5okuwmMBHipP+kWPyDsHVGzQICl1QViAbCyP0TTsAEW3WwVl2zS57uw7pw62rRX6zXfpI7mDS+U6Myh DgC+ZT8mV4Q+iMfGfmLjfqLoFyrD/lFTcakmrz50zzNWj8gvIXBGN4QEoKNZxRK9aPU/USSMKNPZAtiJ rLOo883ouKnj3d5kYPAhbn9XIdJVrXwDAnsCSHtVBH a5OzdbPPkmKrLRe1AcKEmoREhmSkyGgcXs4MrcYGdRviGVnnxjBtWhmtKMOUGwd+JrRNoVBfEvLA8sEj oLKz0lfsJWKauCzdljnb8C9rJKrZFiFOnjHfch1VTCP6tjWZgVmJkKrUHR7C07oA+T0Bn+cGJnVCWgA9 QxgdYTHMho8B7milKGFvgPLgVt0evjsF5mrvse/879 rA47IWB6mdFIQgL5ibIZgkW8gSQ/sXM/EQnvTnRDWlHw7iTU4QTHUsFA+DKQOb6Y4UbQ2pb5You10EJb rOYYFKsBf2GVfXeXnFNRRerp18eWiVRvwjoPTDMrxBQOxdtPH6GI+z7CW6tA6TwROK1afeG+YFgXOu+x ePdIkvyEPZGbFl0I6E9jCiXuAKzvcgw54HVv4iAPyq TO+51ec0vG+doBE2VMkTgWHusKnK1PQ9d68KqFHXzM4HjDBz5QPymHjlwBwN1hvbPle+6AnSWncRzSqI AXGK50rUgnJkgIvTPRIow2nPz1diTwrHQLkga3Yw04X1wwNmdZQqf3Tv5JByB/jR2LV46lmxqPkEGXCD WGf82eLRd2Mh2XwYlQHKRIbSv6aNUTSyHKY/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 [file] Kh/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 sex 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/zy+mzglR1Jzon48A0W9ju0eCsQBCfmmv41/u37Hz+Xv8f8+0y+izjy/nj39R/r0dArp90TM2W1 [file] ayBTZXJpZXMpIAogICAgICAgICAgICAvUHJvZHVjZX DfMP2DJ3FkGNHlTZABFDV4k7NgMDDluygxqamfGw2nvwZoOvq+XbjlWMOnx2EuAZbtZ8J7kUYfT6XxU4 ArNJ2BzHKsIVcxIFEtLPUvQzTwRFHOTS3aV3SpkE73UWJ+VkKhUH7slvr4qgQzYvYwLLErBJLyHJGiED iiDPCeLFOoBWNlIVM2YMS4TZJnZdWgXIOpWZy0Wjnn RAGsIDPlrmBAFBRtOBJtMCVmDRXaUVWyNLTjAXesZZElENS0EvBlRDBwTRHjJL8oCbQqODNoZHIpJIKo PzP1EhVzOhLJXLXzYKOdAVFzUnSeAITkJIUeCIyeLQVoXPMaGGl8SHCjJXGiIM6xAhLiOLFzCYLqWRKg GHMmVAPjltILCSKqXSRnEXW0DTSqDSYiEZCuETrhZR BzCOLvXXH8DIJxKTUyLI1sAfUxUORhWOF4UzRgFUIhQNDxkkILAJQcPHRsVFK8FFWuPWQpEPEbFSnbBE LhBYFmYoY6DNErCGAvWS2yUqMxWXBkLKE7RCAcAWKyDVVobjJFNJJkYWGmISj6LjNoCVLaKSGmUXbhTT UiRCRsXBqnCOAqYZFmQV3uVzEzVFSrEYAnQTLrEWYp CVJxjkSVPYHjZVMxRUG8AoXxDHJyXBDbHQtvVJZuMHKcSFG4QPNrXDNiEJ8jAeZoRJSkYJJ0TiKqVDJr JYApqkAOLMNhTNYrEBUfISZcBGPuNZXzBGasTJFjPFXuEpF5DHFsWGAgWT7cVmJhLPMgQAA2NHHjOEMz ZTCmdtIXWUNrMLHcFPU1VKBdFUFnDUWsLVouFMBvHW P2ERj4GEHjMPMaQI9eKgFdLOYtUFO0CZxeWYAbRKDbdhDHYKCqBVEwKeNaLVTcGMFtKMQhGVajNDSlRS YhFQDjYTP5TEM2NNIxWxLvSCdaOQBKJWkDX5JtxkEdUdfBM3ofHl3wTyNbPUVYQ3Iek1QeCNXpPMPSOo 4+JkQ0KUH3jHWgJydpXWl9BXGXRGRLW1G= ID Date Data Source [id number] 12/14/2020 07:39:20 AM EDT [facility] Name Value Range Interpretation Code Description Data Morena rce(s) Supporting Document(s) EKG [facility] CGOHNb1rSdJMHeSrf8LnPsQbTHMqTK9ezsg4N1B9eFAjR5ZmtUXev5vjM7TmD9MbVIVgGPHJGN2VsQHs jb2 [file] Lg1eHy4ZSv1bDH4zFAubpif/YF1INgJn8E3x4EC/BJynaE5gm0yCD9MVh6NfLAY4A+VbC8ZZebde+Riana 46nw3P7kgigeIejSmCkLeZr1Ph8ub6SZpDyUpzGssDn5vkZw8EJ3dnxVbFqfHl0EiY59nB+eha1TWJk4 ZxIGDYttjrBFxqYsmZ078s1nE1Lkv0Ng3fv1i4Na+4 zFC2LBL2URkR9avqcI1N1h2hRm6ZP8cXPhbnFVurPuzY1mcfhS4U2RHSYlwxQ3iduNvyeiUXfScfU94Q DsblEW2cmWrAaVSE6T7hlzUne1mOogLdHr3IKrWwghwRCAwprY1MZqYYzBK3P0WISliqGAt55Hbq4WvB zg3wWGa7dRmBlavceCXdPUvL3a3ztNSytjDmwGlOEl rqutwBv0KRu5thWzhJh7qHIEp+2PvGJJzb4sg+fUG8tWW3ftCznaqSEg+PUaE3rMT8k+LyhthwissbYt M5Lm+TDuP0eDJSPoAxLPAAZq3pmJBCjAtZ4veobNsoTjz/GYdEelCGFgRlT+ihZK7WVEV1rJp60xDBH0 n3tpczPGdHD195wZvNybNucCsn0J+chhE6SMyNkKlD F2tYwpLt+9AqN6amKuqH43jy2xGWE9yCE9/hBnW6lmZu0BVEGFJdZY7Ter9gJ1QF6dGzodyCbPQyhLi1 KKW7kL8m6SCiqg4pqoF+lgO0gzYz4oTWpghCZ0BPJq4znrc5vnvfgvmk9rtyNtu41sRGzpty7jqGIG/R 2A0hdX7ciTji2fR6yrK0eLzCeAxnSSvDIe2n1xRjwY uEP358jEp0VvMuaPvLD2KDa7VmpOLXLXdXbkzvBQ/e1yC5mUUUD5fylmf3KVKZK3xUwTgzwDQrMoMtDl 0E3A1u1hgr5t1Dh9bLuwLKnCbbTd6XmN8Q/C+4v5xEv12twT90U+zA3fGXIZaQgichDnlGApNtJM3wBF 0+xP3qmLuxmenfkvPt8ArykqhawgwegXkpRE7s5aXC o1c6NPoG6T0ckhONDjk5+/Q1Ahi5L2a7EvaMwomlK3v85B0qdnwpWDpoSLyiNK46lJyjLm4xnYswrRqb droHk97KXK4wDL9Zi+DuH2Mb0VZ3n2eA3tjgjfqB2I6I46kPczno5qjyvFnprt1exCJTlLpH300d26wv 0sBLlibUJoM7FV+FksrwlnQREz6fxGmAvuM+uLzhnf tp0o7XAKV/Re8lIoVb6nDgpjrl7zL12YmHtZigxuRnFADyKZiV2b2QxvnH6P0zJzSaetcicmsPkHXonY J4N+c3JmjocjIzo+GoN0fxvUM1tbvo8QNNgncdM9Y3ZadZhl6VYhiT5gm0oGIAun/IjBAlTfW1MklocD Va8Lu8Zhy+UzVfWkeECc7xIsqdJRkYUfgICGuPP3/f 12Msk2Q43aUn6Z0pvgwddr8V+enVF5bUc8LumTlr7UrJ/Manuel/eUp9bmeOfaK1Z1IsP8gJzj6Wysgts9e gnsoSzxLffHUl+MpF5ohDr+OdR6hEw0H/Kt58WLrevw+T5fF7+jhpp4luKt2VBXy1ZJ6hLn4ZuQji6hp qD1GRTyqyl+LdLlfGxLUNt5T2E0s3vOnReNlgKzUw4 XdVnBaC4Wg3llkKwTm1lG9B25zgewYnpvjFfDhJnBntXf3rf4YOK0NWaxBeKLRY3EjOB2TtR2l1nC5eu 0P+5Tn2sSqtWed2wIvpaa5eGQ+AeqrLtUilgXch4ujcAmzckL8Nkyt6SpBRmhP0AB4yMu7M4srbNfNhI 0pY9J8G5XTe/rQdUhiXYz2lyH4IcU1oGaVCztGEVty AttoyoJ98v8+2iyHcpop2jdBT3baRdvsJE9e7A+jLx91tWFtvmAyv7D0zfmsR4yosoLZK83072pz7Yxk eSEWhgRo2M17hrEBca1+VgVH9W7QhFFbOr91OotnO5l2dW4w1KnlHZE0CaLzx9sZz1BSY1QO8aYrcPeg 8B3OmtGv1ew+qDsPGpTak7/1toqVWML6uh80BEnH9e TdizLbqqY4wIFanmJUUrTlsskLBtJhKbWDi51ddl4H2frbAS6LL72kRKvwNIoDtI5wE086oUvN4dTQSm G/SIn1RY2rD4W3J9XYS9bSr7F083rL4k0Pd4lavMHQhLjXuueO9mW43SnquoYFDERztOY8XP/UkeaXc4 U8TRm4glQjpd9Z4hyhdN54tNJay3kxt0BYP5S8j8kQ 6/WRVMo6obdJ0YJpMCa+OJtsSW4xoEOq54/mOOfEVTd0ZDcQiQ7wqZ092exDI3vmovyypk/TkhwO+Mbl CyeeuKjXZNhhcOqr4zD0kAf+BcE6ch17uaPVl9CZS350a4Coy3EbD09f2hnEIOo8Ya8ZGP8IsF7pdVgy xGtQI/MXU1on9tptd3q/UyqD4glgNC3vW7r/5/KGPc P+KLg96Px495m37bx94CPGn9jsbmv+Q0UxsQ28Ssw/aIOpY6NhU8TiEUf6oAs/I3nKVewfLWW44Aoc+p bR5Q2f+QrWqOn0Cxmiybr0Tku79JAVm3RxW517aU3XzHPm8HWz0yM5y/h8opfd0sAJ5G+6vOFErFthHF IQE8eDyw7qEBIPEvSEI8f4xL0hTzFioKve0sJkLwu5 3cF9uTtLvdgt2wmvH3DYWrK3Ia9mDLStUcp7AVrGSKzY0w7i2M6rHBUQQam8uFS9X5lbvmtMzSSqnW44 BlfUGzJiWWFJICqbAJyjaPGNtjbeeRdDgZeMi9PR4QhEk2RNXspJF2yk0G1HMxm8qSCxcDIIclH1h1D/ x5BhhpeiIxmA6pw2+2Faw9ybxQa08ygW9r6qlyGUik KkBrbO544Nhs6Tf2+crufCPoySYwCiz8fjktn/1M1vzqu2FS/+0rmvpssbLi/5i/Wy346r5ieRF0cH+7 G9wXFefgAX5Y+ZXzXvBf1AGwGwIkV++3RRCph1qFZteW9j+N/I5B1mgYcjxqntyTlDrGXP70g0PeQ0e/ b9XX8o/uglu1Me8eFo6x4ly/IbyBLs6784SQ1v/as7 B2hKll2/OgczqmLtd9MF6AUx+f369wFh3P+1uEbho/7j3kaPE0BVnrSYZ8Uoeeqm9V9l33+feP78/llR 9/DF80wQxJ5jKK4YbV7+6bvEd64QpFC/2L3Do6tyv/o2/pF092m/f//qe/g05hvhE6b37QcZvckz7g1e W03C7LCFb+hGiu/bPu/i+64/Mszg6kv6+573md6/up Zh+b69Y9/KcOz8/aLZR4r/0n7DyNO5u78iWD0Gn70/Ued+jvXmE6H2b+b3vX+/YT6/x/0Lu/k7A9Kvia cqhk/9ur0B+n6/RP6Jpbsay+ryjx8Va+iOw372Yh5n10FJk6+n9Pp+ujg69bkV0lOmjn88ih3e0xjskq nn7yj/SIfRoqj1s3ybuT+eCW1CMuWnzC1lCyCg6gee gbdkOy77OLP8AAg6Noj1A06ERZah7mUCAMaNh22ehEqvhh7tRfJ2WXhdN9SZnSz3Tlx2l/3CJTZHvjhk HihhbnOO24Lg65gMNUjCLjSBcYPDrRr5QiAPRmY6WLqNeaB5LyZTTYZOYFXXhMMx2hfxZGVlAKH56cdI vnPrtiPyyCsur5CNHte21bxBE+T4+4PjVLC/N17Otk TPWZ7kA3vIdGblT1uZa2dzvQojdb9IRrg8msQxpQiHuFACOoedpECdc2lbdGJYrqXDXpnnGKtsua8wbg 6GUeMl2igq2dgjlyr7hu55lX7WJlCZaQllszHX3j/j8xgMnGmqCRB5IGBZr39NRfMAgZb/3+mFZZDmr9 3GQYsUUqwpAKry2QmpFwdvHm/h+oWzo/Dpzu96V3w/ 4fqFixwO+o0LPR3H0uXuvPELcdSt+oU/J3XuC7XBGWdPS62CuelvgqMb3g7m1Gx86rBCvYy58OUPGbNU mGW29IvfylLikvFzvKPRDFgDYncbKRUjUNee+oW/u9RKwNnN0/nUkIN8eaDDXh0qDEHJ4vxNoUW3HXWy aI9LoIAfT5K/aexWLIer6JgEQnR7KVkbmj4Fbt65oj EDfl6/7CyAyGn6JgmOMWu9D9u2peLBpa9y5PH27ZXY1ur29MuC7ms4/3n63/zg/X2+GNzKts9xhcFCbQ t/herFn34x/qb/t+/6/mYE9/+/L2Gcr/M5dkYpKIdTJej+/0zQ0juogy1nrdq3vZsTV9ff/n3+f/g+yq 7+v+j/m/5/xjpmg8E9003I/5daa2z6sQ6+Psru/k3/ b9/1Pcqu/t8pfaf/D/r/oP9P+b922CxC+dPzzkX/K7UJqi6Pz4//78hIqnM97kep0CP/z+c96Y+yA29H 2aGso+ovTA5xJcVl8pSdds+yu3/brdtRdvX/Lpnn1l9sH3++fpSdG/7+/T97+wX3ub7yQAeHyqWty/q/ 0//W55vzwaP6bb5+/fI/et46rWAE/8/zDvx9/p9pzv MO/G3v70n/n5T+PC/yPM+LPBelp+ddm9Jv+r/T/99vVgwi7r/39/6/z/PijOjO53kgy//nSUE6kw/0// G2WDMg17fe/h8CEmFYk+fNz+M2+f945oxw6vso6AQ47LHn3+39HfT/pTXx01v38/n/QwW8kC5V+7kM4a ik4C68Vl+PN5/0/8umFeWmkH09YdQdEswM3A1S1sdh el4P+c90pyN84Lh76pzCIb/Lmw/+/j6+G6LBna9IeKJqc96/8gM0VjL+Kqp6vDhazJR+4HczQN5T/9+U j3/P1+n/8fiJMxPFif/dy77owtltMyovhxDhyyxClsE/x63/wmVK2S3LZx2gv/I3Sm/2/l6U/twt3pEx Ppvy94/+pvoE5R+h3MX43Bi0q40QdOlHkRLwahM9Kq /o/4P+P1+4ag9rwwst44mNA5q/qNxN+e/HQ3PKx+n/QfWP9//+vfz79+pM99hQndB/3w59vh1+6P/j1b DERRICK BARGE OPERATOR+v/rv+fagvc3/Z/pa7onIqph9oVy/0750/MefXX/aeOl55rD9/Xfc1XB+/vVZ/OW1ceBb3HrlyU2Fn N5DLwN55a63/ix4Q0RWyUMzau6ctivQeQaI3M/49Vz Uv+d30s/7vq12uvi8U5xiu/5bcxYr7sI4Oiu/o94ze8nrj6a/cvfv3fmAcJTlwpm6wqJp9Z+3rHjPq0Y 5zwev8rW/u22ilk8TsjMl9M7J3+Plz0wIKKmkRnvb1elGuie5Z+oPvt+roG3Jn99+b6KiB0xgQ2gUkS+ kkddbygs6JxdUl+pr/B3f/mnvkI+M77F9vmH5b/zzv z/fPVJfVV/0//B048H9k10HoJAcedOhBRxs4Y+3Sdcqzi2LNW+CuirTN8/+vvVM/VVlrvp/aa+Qvqnrw L6Cn9T/vYtT14vI/cirhaHF5hqS4G9wpHDSqH6GB8NV0U3r/vb4E841y69eg4h/9RX+P+g/8+P/n48pL 7C/43qsyifdXV++JsvhNPzutP/eyWWrv5tv5lj5r+p r/D/K723Mjua//fHW+lqvFm2q4oIhh6Qb5V/c36Ev+70zH98myPT6f7yAQ7fMZExOY15a/CrU3zBZSf7 Kgj5LShfenNEnRjbhKw5JVhN/CjZvE+YZEDSatCkJxqKlDZ6g4UMhFjprC/Qp6mcwGS77kt+I2BEtjGG neN8zwNbJJssQQBJB2QvxM7EjhbEGNUAoCKHDO//ct ckt6000d+L59zj0U+h1VzrC9D6ZMkEqn/pROqUGzGG0AJ+2wC0Ws3CyjtU/Skjwz/hvN9oTQt5++sRdf rfyDBGTsxrvMP+r7mHIHQgSx2Ls3usaNVhIEHq/Z3AUGtjCDSb42ErobDUWvpDTSM9en3EavUMmm9/driver [file] [facility]SC[facility]+UpxmgFHwgXdsUITEPRFiCBb9FeAjTA4K ID Date Data Source [id number] 12/14/2020 01:38:40 PM EDT [facility] Name Value Range Interpretation Code Description Data Morena rce(s) Supporting Document(s) PT 16.5 s (9.2-11.9) H [facility] INR 1.61 [facility] SUGGESTED THERAPEUTIC RANGES USING INR F ORSTABILIZED ANTICOAGULATED PATIENTS:STANDARD DOSE THERAPY INR 2.0-3.0 DVT, PE, PREVENT DVT OR EMBOLISMHIGH DOSE THERAPY INR 2.5-3.5 PREVENT EMBOLISM FROM MECHANICAL HEART VALVE ID Date Data Source [id number] 12/14/2020 08:06:14 AM EDT [facility] Name Value Range Interpretation Code Description Data Morena rce(s) Supporting Document(s) TROPONIN I 6.84 ng/mL (<0.05) H [facility] Shoemaker Less than 0.05: Myocardial injury unlike lyGreater than or equal to 0.05: Highly suggestive of myocardial injuryCorrelation with rise and/or fall ofserial troponins, clinical symptomsand ECG changes is necessary.ALERTED CRITICAL RESULT TOABBY ([id number]) ON 15 AT 66762 ON 12.14.20 AT 0805 [place] [id number] ID Date Data Source [id number] 12/14/2020 07:28:10 AM EDT [facility] Name Value Range Interpretation Code Description Data Morena rce(s) Supporting Document(s) SODIUM 136 mmol/L (136-145) [facility] POTASSIUM 4.1 mmol/L (3.6-5.2) [facility] CHLORIDE 98 mmol/L (100-108) L [facility] CO2 24 mmol/L (22-31) [facility] ANION GAP 14 mmol/L (7-16) [facility] UREA NITROGEN 44 mg/dL (7-24) [facility] CREATININE 2.71 mg/dL (0.80-1.30) [facility] BUN/CREAT RATIO 16.2 RATIO (10.0-20.0) [facility] GLUCOSE 107 mg/dL (70-99) [facility] CALCIUM 8.8 mg/dL (8.4-10.2) [facility] TOTAL PROTEIN 6.6 g/dL (6.4-8.2) [facility] ALBUMIN 3.4 g/dL (3.5-4.6) [facility] GLOBULIN 3.2 g/dL (2.7-4.3) [facility] ALB/GLOB RATIO 1.1 RATIO [facility] ALKALINE PHOSPHATASE 50 U/L (45-117) [facility] BILIRUBIN,TOTAL 0.7 mg/dL (0.0-1.0) [facility] PLEASE NOTE:Total bilirubin results may be falselyelevated in patients taking Eltrombopag. AST (SGOT) 3595 U/L (11-39) [facility] ALT (SGPT) 5219 U/L (12-78) [facility] GFR 24 ml/min/1.73m2 (>59) L [facility] GFR ( AMER) 29 ml/min/1.73m2 (>59) L [facility] GFR INTERPRETATION [facility] --NORMAL KIDNEY FUNCTION OR MILD DISEASE - GFR >OR= 60CHRONIC KIDNEY DISEASE - GFR 15 - 59RENAL FAILURE - GFR <15 Est. GFR calculation based on the MDRDstudy equation, which assumes a steadystate for creatinine. Est. GFR should notbe used for medication dosing. ID Date Data Source [id number] 12/14/2020 06:46:16 AM EDT [facility] Name Value Range Interpretation Code Description Data Morena rce(s) Supporting Document(s) WBC 15.0 10*3/uL (4.1-11.0) [facility] RBC 4.86 10*6/uL (4.60-6.10) [facility] HGB 15.7 g/dL (13.5-18.0) [facility] HCT 45.8 % (41.0-53.0) [facility] MCV 94.2 fL (80.0-95.0) [facility] MCH 32.4 pg (27.0-32.0) [facility] MCHC 34.4 g/dL (32.0-36.0) [facility] RDW 14.5 % (10.5-14.5) [facility] PLT 100 10*3/uL (150-450) [facility] MPV 9.1 fL (7.1-10.7) [facility] ID Date Data Source [id number] 12/14/2020 06:42:54 AM EDT [facility] Name Value Range Interpretation Code Description Data Morena rce(s) Supporting Document(s) APTT 48.7 s (22.0-34.3) [facility] ID Date Data Source [id number] 12/14/2020 04:07:19 AM EDT [facility] Name Value Range Interpretation Code Description Data Morena rce(s) Supporting Document(s) TROPONIN I 6.30 ng/mL (<0.05) [facility] Less than 0.05: Myocardial injury unlike lyGreater than or equal to 0.05: Highly suggestive of myocardial injuryCorrelation with rise and/or fall ofserial troponins, clinical symptomsand ECG changes is necessary.ALERTED CRITICAL RESULT LINDSAY([id number]) D3(28053) [place] [address] ON 12/14/20 [place] [id number] ID Date Data Source [id number] 12/14/2020 04:04:04 AM EDT [facility] Name Value Range Interpretation Code Description Data Morena rce(s) Supporting Document(s) SODIUM 137 mmol/L (136-145) [facility] POTASSIUM 3.9 mmol/L (3.6-5.2) [facility] CHLORIDE 98 mmol/L (100-108) L [facility] CO2 25 mmol/L (22-31) [facility] ANION GAP 14 mmol/L (7-16) [facility] UREA NITROGEN 40 mg/dL (7-24) H [facility] CREATININE 2.84 mg/dL (0.80-1.30) H [facility] BUN/CREAT RATIO 14.1 RATIO (10.0-20.0) [facility] GLUCOSE 134 mg/dL (70-99) H [facility] CALCIUM 9.1 mg/dL (8.4-10.2) [facility] TOTAL PROTEIN 6.7 g/dL (6.4-8.2) [facility] ALBUMIN 3.2 g/dL (3.5-4.6) L [facility] GLOBULIN 3.5 g/dL (2.7-4.3) [facility] ALB/GLOB RATIO 0.9 RATIO [facility] ALKALINE PHOSPHATASE 48 U/L (45-117) [facility] BILIRUBIN,TOTAL 0.8 mg/dL (0.0-1.0) [facility] PLEASE NOTE:Total bilirubin results may be falselyelevated in patients taking Eltrombopag. AST (SGOT) 4478 U/L (11-39) H [facility] ALT (SGPT) 5475 U/L (12-78) H [facility] GFR 23 ml/min/1.73m2 (>59) L [facility] GFR ( AMER) 28 ml/min/1.73m2 (>59) L [facility] GFR INTERPRETATION [facility] --NORMAL KIDNEY FUNCTION OR MILD DISEASE - GFR >OR= 60CHRONIC KIDNEY DISEASE - GFR 15 - 59RENAL FAILURE - GFR <15 Est. GFR calculation based on the MDRDstudy equation, which assumes a steadystate for creatinine. Est. GFR should notbe used for medication dosing. ID Date Data Source [id number] 12/14/2020 03:47:27 AM EDT [facility] Name Value Range Interpretation Code Description Data Morena rce(s) Supporting Document(s) MAGNESIUM 1.9 mg/dL (1.7-2.4) [facility] ID Date Data Source [id number] 12/14/2020 12:56:44 AM EDT [facility] Name Value Range Interpretation Code Description Data Morena rce(s) Supporting Document(s) APTT 30.7 s (22.0-34.3) [facility] ID Date Data Source [id number] 12/13/2020 08:10:12 PM EDT [facility] INFORMATIONPatient MRN Name Date of Age Gend*PT [id number] [place], Dilan Sulma 1960 60 years M IPPT Location Admission Date/Time Visit ID Attending ProviderD-[id number] 12/13/20 1238 --- Crystal Neal MD([id number]) EPI ID CSN Admitting Provider [id number] Crystal Neal MD([id number])Inpatient Consult Andrez KirkMRN: [id number] FOR GI CONSULT: Acute hepatitisHOSPITAL PROBLEM LIST:Principal Problem: Coronary artery disease involving [place] coronary artery of [place]one heart withunstable angina pectorisActive Problems: Wide-complex tachycardia [...] them due to numbness. [facility] went to [facility] ER wherehe was found to [...] mellitus History of herniated intervertebral disc Hypertension NV (myocardial infarction) Sinusitis Umbilical herniaPast Surgical History:No [...] rce(s) Supporting Document(s) ID Date Data Source [id number] 12/20/2020 01:40:51 PM EDT [facility] Name Value Range Interpretation Code Description Data Morena rce(s) Supporting Document(s) PROTEIN,URINE 98 mg/dL [facility] URINE PROTEIN MAY BE FALSELY ELEVATEDDUR ING TREATMENT WITH AMINOGLYCOSIDESDUE TO METHOD INTERFERENCE. ALBUMIN URINE 36.6 % [facility] ALPH1 1 URINE 63.4 % [facility] TOTAL OTHER FRACTIONS ALPHA 2 URINE [facility] BETA URINE [facility] GAMMA URINE [facility] INTERPRETATION: [facility] Interpretation [place] [address] Mixed glomerular and tubular proteinuria. MD Jay 12/16/20 ID Date Data Source [id number] 12/13/2020 11:27:33 PM EDT [facility] Name Value Range Interpretation Code Description Data Morena rce(s) Supporting Document(s) URINE WBC (0-5) [facility] URINE RBC (0-2) [facility] EPITHELIAL CELLS 2+ [HPF] [facility] AMORPHOUS 1+ [HPF] [facility] HYALINE CASTS [facility] COARSE GRAN CAST [facility] ID Date Data Source [id number] 12/13/2020 10:28:36 PM EDT [facility] Name Value Range Interpretation Code Description Data Morena rce(s) Supporting Document(s) PROTEIN,URINE 98 mg/dL [facility] URINE PROTEIN MAY BE FALSELY ELEVATEDDUR ING TREATMENT WITH AMINOGLYCOSIDESDUE TO METHOD INTERFERENCE. CREATININE,URINE 97.80 mg/dL [facility] URINE TP/CR RATIO 1.00 RATIO (0.00-0.20) H [facility] ID Date Data Source [id number] 12/13/2020 10:10:25 PM EDT [facility] Name Value Range Interpretation Code Description Data Morena rce(s) Supporting Document(s) COLOR [facility] APPEARANCE [facility] SPEC GRAV URINE 1.017 (1.003-1.030) [facility] PH URINE 5.5 (5.0-7.5) [facility] LEUK ESTERASE (NEG) [facility] NITRITE URINE (NEG) [facility] PROTEIN URINE 1+ (NEG) A [facility] GLUCOSE URINE 1+ (NEG) A [facility] KETONE URINE (NEG) [facility] UROBILINOGEN 0.2 mg/dL (0-1.0) [facility] BILIRUBIN URINE (NEG) [facility] BLOOD/HGB URINE 2+ (NEG) A [facility] ID Date Data Source [id number] 12/13/2020 09:42:50 PM EDT [facility] Name Value Range Interpretation Code Description Data Morena rce(s) Supporting Document(s) URN CULTURE HOLD [facility] FOR ADD ON CULTURE ID Date Data Source [id number] 12/20/2020 01:25:18 PM EDT [facility] Name Value Range Interpretation Code Description Data Morena rce(s) Supporting Document(s) TOTAL PROTEIN 6.7 g/dL (6.4-8.2) [facility] TOTAL PROTEIN EPP 6.7 g/dL (6.4-8.2) [facility] ALBUMIN CALC 4.5 g/dL (3.9-5.1) [facility] ALPHA 1 CALC 0.2 g/dL (0.1-0.3) [facility] ALPHA 2 CALC 0.7 g/dL (0.4-1.0) [facility] BETA CALC 0.7 g/dL (0.5-1.1) [facility] GAMMA CALC 0.6 g/dL (0.4-1.2) [facility] MONOCLONAL CALC (NOMONO) [facility] ALBUMIN PERCENT 66.4 % (58.8-69.6) [facility] ALPHA 1 PERCENT 3.0 % (1.6-3.0) [facility] ALPHA 2 PERCENT 10.4 % (7.2-13.2) [facility] BETA PERCENT 11.1 % (8.0-14.7) [facility] GAMMA PERCENT 9.1 % (7.3-16.4) [facility] INTERPRETATION: [facility] MD JAY 12/16/20Interpretation perf [place] [address] ID Date Data Source [id number] 12/17/2020 01:17:18 PM EDT [facility] Name Value Range Interpretation Code Description Data Morena rce(s) Supporting Document(s) MYELOPEROX AB 0 AU/mL [facility] Reference range: 0 to 19 INTERPRETIVE IN FORMATION: Myeloperoxidase Abs, IgG 19 AU/mL or Less ......... Negative 20-25 AU/mL .............. Equivocal 26 AU/mL or Greater ...... Positive Approximately 90% of patients with a P-ANCA pattern by IFA have antibodies specific for MPO. SERINE PROTEINASE 3 1 [facility] Reference range: 0 to 19Unit: AU/mL INTE RPRETIVE INFORMATION: Serine Proteinase 3, IgG 19 AU/mL or Less ........ Negative 20-25 AU/mL ............. Equivocal 26 AU/mL or Greater ..... Positive Approximately 85% of patients with a C-ANCA pattern by IFA have antibodies specific for PR3. ANCA IFA TITER [facility] <1:20Reference range: <1:20 ANCA IFA PATTERN [facility] None DetectedReference range: None Detec naresh INTERPRETIVE INFORMATION: ANCA IFA Pattern Neutrophil Cytoplasmic Antibodies (C-ANCA = granular cytoplasmic staining, P-ANCA = perinuclear staining) are found in the serum of over 90 percent of patients with certain necrotizing systemic vasculitides, and usually in less than 5 percent of patients with collagen vascular disease or arthritis. Performed By: [place] [address] Sheet Cutter: Li Hoffman MD ID Date Data Source [id number] 12/16/2020 04:04:44 PM EDT [facility] Name Value Range Interpretation Code Description Data Morena rce(s) Supporting Document(s) CH50 TURBIDIMETRIC 67.0 [facility] Reference range: 38.7 to 89.9Unit: U/mL REFERENCE INTERVAL: Complement Activity Total, (CH50) 38.6 U/mL or less ..........Low 38.7-89.9 U/mL .............Normal 90.0 U/mL or greater .......High Performed By: [place] [address] Sheet Cutter: Li Hoffman MD ID Date Data Source [id number] 12/16/2020 01:05:23 PM EDT [facility] Name Value Range Interpretation Code Description Data Morena rce(s) Supporting Document(s) KAPPA FREE LIGHT 56.60 H [facility] Reference range: 3.30 to 19.40Unit: mg/L INTERPRETIVE INFORMATION: [place] [facility] Free Light Chains Undetected antigen excess is a rare event but cannot be excluded. Free light chain results should always be interpreted in conjunction with other clinical and laboratory findings. LAMBDA FREE LIGHT 30.32 H [facility] Reference range: 5.71 to 26.30Unit: mg/L GEOVANNA/HAMLIN RATIO, SERUM 1.87 H [facility] Reference range: 0.26 to 1.65 Performed By: [place] [address] Sheet Cutter: Li Hoffman MD ID Date Data Source [id number] 12/16/2020 08:14:49 AM EDT [facility] Name Value Range Interpretation Code Description Data Morena rce(s) Supporting Document(s) GLOM BASE MEMB IGG 0 EU [facility] Reference range: 0 [...] and assessment of renal prognosis. Performed By: [employer] [address] [place] [id number] Sheet Cutter: Li Hoffman MD ID Date Data Source [id number] 12/14/2020 05:02:46 PM EDT [facility] Name Value Range Interpretation Code Description Data Morena rce(s) Supporting Document(s) BÁRBARA SCREEN @ (NEG) [facility] ID Date Data Source [id number] 12/13/2020 11:01:13 PM EDT [facility] Name Value Range Interpretation Code Description Data Morena rce(s) Supporting Document(s) TROPONIN I 6.39 ng/mL (<0.05) H [facility] Less than 0.05: Myocardial injury unlike lyGreater than or equal to 0.05: Highly suggestive of myocardial injuryCorrelation with rise and/or fall ofserial troponins, clinical symptomsand ECG changes is necessary.ALERTED CRITICAL RESULT TOKATIE([id number]) D3(84993) AT 2255 ON 12/13/20 [place] [id number] ID Date Data Source [id number] 12/13/2020 10:58:37 PM EDT [facility] Name Value Range Interpretation Code Description Data Morena rce(s) Supporting Document(s) CERULOPLASMIN @ 34.2 mg/dL (20-60) [facility] ID Date Data Source [id number] 12/13/2020 10:36:31 PM EDT [facility] Name Value Range Interpretation Code Description Data Morena rce(s) Supporting Document(s) ACETAMINOPHEN <2.5 ug/mL (10.0-30.0) L [facility] ID Date Data Source [id number] 12/13/2020 10:12:40 PM EDT [facility] Name Value Range Interpretation Code Description Data Morena rce(s) Supporting Document(s) HEPATITIS C AB @ (NEG) [facility] NOT INFECT ED WITH HCV, UNLESS RECENTINFECTION IS SUSPECTED OR OTHER EVIDENCEEXISTS TO INDICATE HCV INFECTION. ID Date Data Source [id number] 12/13/2020 09:22:23 PM EDT [facility] Name Value Range Interpretation Code Description Data Morena rce(s) Supporting Document(s) RHEUMATOID FACTOR @ <15 IU/mL (0-15) [facility] ID Date Data Source [id number] 12/13/2020 09:22:23 PM EDT [facility] Name Value Range Interpretation Code Description Data Morena rce(s) Supporting Document(s) COMPLEMENT C3 @ 56 mg/dL (90-180) L [facility] ID Date Data Source [id number] 12/13/2020 09:22:23 PM EDT [facility] Name Value Range Interpretation Code Description Data Morena rce(s) Supporting Document(s) COMPLEMENT C4 @ 20 mg/dL (10-40) [facility] ID Date Data Source [id number] 12/13/2020 06:40:38 PM EDT [address] [id number] Name: Dilan KirkDOB: 1960ex: MOrdering Provider: PIERCE Priest Prov: PIERCE AMAYAReferryajaira Provider: Procedure Performed: US ABDOMINAL VEINS LIMITEDExam Date: 12/13/2020 16:02MRN: [id number] Number: [id number] Class: INFORMATION: Exam: US Duplex Artery or [...] rce(s) Supporting Document(s) ID Date Data Source [id number] 12/13/2020 06:33:52 PM EDT [address] [id number] Name: Dilan Sulma ReaganDOB: 1960ex: MOrdering Provider: ROBERT Degroot Prov: ROBRET Damon Provider: Procedure Performed: XR CHEST PORTABLEExam Date: 12/13/2020 18:12MRN: [id number] Number: [id number] Class: INFORMATION: Exam: XR Chest Exam date [...] rce(s) Supporting Document(s) ID Date Data Source [id number] 12/13/2020 05:04:51 PM EDT [facility] INFORMATIONPatient MRN Name Date of Age Gend*PT [id number] Dilan Kirk 1960 60 years M IPPT Location Admission Date/Time Visit ID Attending [id number] 12/13/20 1238 --- Crystal Neal MD([id number]) EPI ID CSN Admitting Provider [id number] Crystal Neal MD([id number])Consult NoteAdmit Date: 12/13/2020Today's Date: December 13eason for [...] 4 yearspresented with lightheadedness earlier today to [facility]. He wasnoted to be in acute renal failure with severely abnormal liver function testand transferred to [facility] management. Patient hadsome soda [...] coronary artery disease and had a cath [id number] which showed mild CAD and did not [...] mellitus History of herniated intervertebral disc Hypertension NV (myocardial infarction) Sinusitis Umbilical herniaFH: No family [...] Social Gatherings with Friends and Family: Attends [employer] Services: Active Member of Clubs or Organizations: [...] reviewed today at 1:50 PM :Labs from Sikhism reviewedImaging:CXR from Sikhism reviewedCurrent Meds:Scheduled Meds: amLODIPine 10 mg Oral [...] rce(s) Supporting Document(s) ID Date Data Source [id number] 12/13/2020 05:09:46 PM EDT [facility] Name Value Range Interpretation Code Description Data Morena rce(s) Supporting Document(s) POC TEMPERATURE [facility] 37.0C POC SOURCE [facility] PUNCTURE SITE [facility] O2 THERAPY [facility] CP BYPASS [facility] KIERAN TEST [facility] POC VENOUS PH 7.35 pH (7.33-7.43) [facility] POC VENOUS PCO2 45.9 MM HG (38.0-50.0) [facility] POC VENOUS PO2 28 MM HG (30-50) L [facility] POC VENOUS SO2 49 % (60-85) L [facility] POC VENOUS BASE DEFICIT 1 MMOL/L (0-2) [facility] POC VENOUS HCO3 25.5 MMOL/L (23.0-27.0) [facility] POC VENOUS TOTAL CO2 27 MMOL/L (24-28) [facility] BY [facility] POC HCT 47 % (41.0-53.0) [facility] POC SODIUM 134 MMOL/L (136-145) L [facility] POC POTASSIUM 5.4 MMOL/L (3.6-5.2) H [facility] POC IONIZED CALCIUM 4.9 MG/DL (4.6-5.3) [facility] POC GLU 106 MG/DL (70-99) H [facility] PERFORM LAB [facility] ID Date Data Source [id number] 12/13/2020 05:06:44 PM EDT [facility] Name Value Range Interpretation Code Description Data Morena rce(s) Supporting Document(s) POC NOVA GLU 112 mg/dL (70-99) [facility] [place] [facility] ID Date Data Source [id number] 12/13/2020 08:48:30 PM EDT [facility] Name Value Range Interpretation Code [...] APR 20, 2017). ID Date Data Source [id number] 12/13/2020 08:48:30 PM EDT [facility] Name Value Range Interpretation Code Description Data Morena rce(s) Supporting Document(s) HEPATITIS B S AG @ (NEG) [facility] HEP. B CORE IGM @ (NEG) [facility] HEPATITIS A AB IGM @ (NEG) [facility] HEPATITIS C AB @ (NEG) [facility] NOT INFECT ED WITH HCV, UNLESS RECENTINFECTION IS SUSPECTED OR OTHER EVIDENCEEXISTS TO INDICATE HCV INFECTION. ID Date Data Source [id number] 12/13/2020 08:48:30 PM EDT [facility] Name Value Range Interpretation Code Description Data Morena rce(s) Supporting Document(s) HEP B CORE AB TOTAL @ (NEG) [facility] ID Date Data Source [id number] 12/13/2020 07:57:54 PM EDT [facility] Name Value Range Interpretation Code Description Data Morena rce(s) Supporting Document(s) CHOLESTEROL @ 107 mg/dL (0-200) [facility] TRIGLYCERIDE @ 170 mg/dL (30-200) [facility] HDL CHOLESTEROL @ 30 mg/dL (>40) L [facility] PER NCEP ATP III GUIDELINES:RESULTS LOWE R THAN 40 MG/DL ARE SUGGESTIVEOF INCREASED RISK FOR CORONARY ARTERYDISEASE. RESULTS > OR = TO 60 MG/DL ARECONSIDERED A NEGATIVE RISK FACTOR. CHOL/HDL RATIO 3.6 RATIO [facility] INTERPRETATION OF CHOL-HDL RATIO CHD RISK FEMALE MALEVERY HIGH >8.3 >14.3HIGH 5.6- 8.3 6.7- 14.3AVERAGE 3.7- 5.6 4.0- 6.7BELOW AVERAGE 2.5- 3.7 2.7- 4.0PROTECTED <2.5 <2.7 LDL CHOL (CALC) 43 mg/dL (<130) [facility] PER NCEP ATP III GUIDELINES: OPTIMAL < 100 NEAR OPTIMAL 100 - 129BORDERLINE HIGH 130 - 159 HIGH 160 - 189 VERY HIGH > 189 ID Date Data Source [id number] 12/13/2020 07:17:50 PM EDT [facility] Name Value Range Interpretation Code Description Data Morena rce(s) Supporting Document(s) TROPONIN I 5.89 ng/mL (<0.05) H [facility] [place] Less than 0.05: Myocardial injury unlike lyGreater than or equal to 0.05: Highly suggestive of myocardial injuryCorrelation with rise and/or fall ofserial troponins, clinical symptomsand ECG changes is necessary.ALERTED CRITICAL [place]ULT [place] ([id number]) [place] [address] ON 12.13.20 AT 18:46 [place] [id number] ID Date Data Source [id number] 12/13/2020 06:02:25 PM EDT [facility] Name Value Range Interpretation Code Description Data Morena rce(s) Supporting Document(s) NT PRO BNP 68631 pg/mL (0-125) H [facility] [place] ID Date Data Source [id number] 12/13/2020 06:02:25 PM EDT [facility] Name Value Range Interpretation Code Description Data Morena rce(s) Supporting Document(s) TSH,ULTRASENSITIVE @ 1.779 mIU/L (0.360-4.170) [facility] PERFORMED AT [address] [place] [address] [place] [address] ID Date Data Source [id number] 12/13/2020 06:02:25 PM EDT [facility] Name Value Range Interpretation Code Description Data Morena rce(s) Supporting Document(s) SODIUM 133 mmol/L (136-145) L [facility] POTASSIUM 5.2 mmol/L (3.6-5.2) [facility] CHLORIDE 100 mmol/L (100-108) [facility] CO2 21 mmol/L (22-31) L [facility] ANION GAP 12 mmol/L (7-16) [facility] UREA NITROGEN 60 mg/dL (7-24) H [facility] CREATININE 4.30 mg/dL (0.80-1.30) H [facility] BUN/CREAT RATIO 14.0 RATIO (10.0-20.0) [facility] GLUCOSE 92 mg/dL (70-99) [facility] CALCIUM 9.8 mg/dL (8.4-10.2) [facility] TOTAL PROTEIN 6.9 g/dL (6.4-8.2) [facility] ALBUMIN 3.7 g/dL (3.5-4.6) [facility] GLOBULIN 3.2 g/dL (2.7-4.3) [facility] ALB/GLOB RATIO 1.2 RATIO [facility] ALKALINE PHOSPHATASE 52 U/L (45-117) [facility] BILIRUBIN,TOTAL 0.7 mg/dL (0.0-1.0) [facility] PLEASE NOTE:Total bilirubin results may be falselyelevated in patients taking Eltrombopag. AST (SGOT) 7665 U/L (11-39) [facility] ALT (SGPT) 6369 U/L (12-78) H [facility] GFR 14 ml/min/1.73m2 (>59) L [facility] GFR ( AMER) 17 ml/min/1.73m2 (>59) L [facility] GFR INTERPRETATION [facility] --NORMAL KIDNEY FUNCTION OR MILD DISEASE - GFR >OR= 60CHRONIC KIDNEY DISEASE - GFR 15 - 59RENAL FAILURE - GFR <15 Est. GFR calculation based on the MDRDstudy equation, which assumes a steadystate for creatinine. Est. GFR should notbe used for medication dosing. ID Date Data Source [id number] 12/13/2020 05:44:07 PM EDT [facility] Name Value Range Interpretation Code Description Data Morena rce(s) Supporting Document(s) PHOSPHORUS 7.2 mg/dL (2.5-4.5) H [facility] ID Date Data Source [id number] 12/13/2020 05:44:07 PM EDT [facility] Name Value Range Interpretation Code Description Data Morena rce(s) Supporting Document(s) MAGNESIUM 2.0 mg/dL (1.7-2.4) [facility] ID Date Data Source [id number] 12/13/2020 05:44:07 PM EDT [facility] Name Value Range Interpretation Code Description Data Morena rce(s) Supporting Document(s) ETHANOL <3 mg/dL (0-3) [facility] ID Date Data Source [id number] 12/13/2020 05:37:26 PM EDT [facility] Name Value Range Interpretation Code Description Data Morena rce(s) Supporting Document(s) HEMOGLOBIN A1C @ 6.7 % (4.0-6.0) [facility] Performed using Siemens Mouthcard immunoassa y.Care must be taken when interpreting [id number] in patients with a hemoglobin variantor decreased erythrocyte lifespan. Values 5.7 - 6.4% suggest prediabetes.Values >=6.5% are diagnostic for diabetes.REFERENCE: DIABETES CARE 2018: 41(S13-S27).PERFORMED AT [address] [place] [address] EST AVERAGE GLUCOSE 146 mg/dL [facility] ID Date Data Source [id number] 12/13/2020 05:30:16 PM EDT [facility] Name Value Range Interpretation Code Description Data Morena rce(s) Supporting Document(s) APTT 27.6 s (22.0-34.3) [facility] ID Date Data Source [id number] 12/13/2020 05:30:16 PM EDT [facility] Name Value Range Interpretation Code Description Data Morena rce(s) Supporting Document(s) PT 16.3 s (9.2-11.9) H [facility] INR 1.59 [facility] SUGGESTED THERAPEUTIC RANGES USING INR F ORSTABILIZED ANTICOAGULATED PATIENTS:STANDARD DOSE THERAPY INR 2.0-3.0 DVT, PE, PREVENT DVT OR EMBOLISMHIGH DOSE THERAPY INR 2.5-3.5 PREVENT EMBOLISM FROM MECHANICAL HEART VALVE ID Date Data Source [id number] 12/13/2020 05:13:26 PM EDT [facility] Name Value Range Interpretation Code Description Data Morena rce(s) Supporting Document(s) WBC 14.4 10*3/uL (4.1-11.0) H [facility] RBC 4.93 10*6/uL (4.60-6.10) [facility] HGB 15.9 g/dL (13.5-18.0) [facility] HCT 46.9 % (41.0-53.0) [facility] MCV 95.2 fL (80.0-95.0) H [facility] MCH 32.3 pg (27.0-32.0) H [facility] MCHC 33.9 g/dL (32.0-36.0) [facility] RDW 14.5 % (10.5-14.5) [facility] PLT 126 10*3/uL (150-450) L [facility] MPV 9.8 fL (7.1-10.7) [facility] NEUT % 85.3 % (35.0-75.0) H [facility] LYMPH % 10.5 % (16.0-52.0) L [facility] MONO % 4.0 % (0.0-8.0) [facility] EOS % 0.1 % (0.0-5.0) [facility] BASO % 0.1 % (0.0-4.0) [facility] NEUT # 12.3 10*3/uL (1.8-7.7) [facility] [place] LYMPH # 1.5 10*3/uL (1.2-4.8) [facility] MONO # 0.6 10*3/uL (0.0-0.8) [facility] Eosinophils [#/volume] in Blood by Automated count 0.0 10*3/uL (0.0-0 .5) [facility] BASO # 0.0 10*3/uL (0.0-0.2) [facility] ID Date Data Source [id number] 12/20/2020 01:41:37 PM EDT [facility] Name Value Range Interpretation Code Description Data Morena rce(s) Supporting Document(s) PROTEIN,URINE 148 mg/dL [facility] URINE PROTEIN MAY BE FALSELY ELEVATEDDUR ING TREATMENT WITH AMINOGLYCOSIDESDUE TO METHOD INTERFERENCE. ALBUMIN URINE 35.7 % [facility] ALPH1 1 URINE 64.3 % [facility] TOTAL OTHER FRACTIONS ALPHA 2 URINE [facility] BETA URINE [facility] GAMMA URINE [facility] INTERPRETATION: [facility] MIXED PATTERN PROTEINURIAI.MD HERIBERTO 12/16/20Interpretation performed [place] [address] ID Date Data Source [id number] 12/13/2020 10:14:50 PM EDT [facility] Name Value Range Interpretation Code Description Data Morena rce(s) Supporting Document(s) URINE WBC (0-5) [facility] URINE RBC (0-2) [facility] EPITHELIAL CELLS 1+ [HPF] [facility] AMORPHOUS 2+ [HPF] [facility] COARSE GRAN CAST [facility] ID Date Data Source [id number] 12/13/2020 08:02:02 PM EDT [facility] Name Value Range Interpretation Code Description Data Morena rce(s) Supporting Document(s) PROTEIN,URINE 148 mg/dL [facility] URINE PROTEIN MAY BE FALSELY ELEVATEDDUR ING TREATMENT WITH AMINOGLYCOSIDESDUE TO METHOD INTERFERENCE. CREATININE,URINE 159.00 mg/dL [facility] URINE TP/CR RATIO 0.93 RATIO (0.00-0.20) H [facility] ID Date Data Source [id number] 12/13/2020 08:02:02 PM EDT [facility] Name Value Range Interpretation Code Description Data Morena rce(s) Supporting Document(s) RANDOM URINE CREAT 159.00 mg/dL [facility] ID Date Data Source [id number] 12/13/2020 08:02:02 PM EDT [facility] Name Value Range Interpretation Code Description Data Morena rce(s) Supporting Document(s) RANDOM URINE SODIUM 36 mmol/L [facility] RAND URINE POTASSIUM 84.9 mmol/L [facility] RAND. URINE CHLORIDE 20 mmol/L [facility] ID Date Data Source [id number] 12/13/2020 07:49:14 PM EDT [facility] Name Value Range Interpretation Code Description Data Morena rce(s) Supporting Document(s) COLOR [facility] APPEARANCE [facility] SPEC GRAV URINE 1.023 (1.003-1.030) [facility] PH URINE 5.0 (5.0-7.5) [facility] LEUK ESTERASE (NEG) [facility] NITRITE URINE (NEG) [facility] PROTEIN URINE 1+ (NEG) A [facility] GLUCOSE URINE 2+ (NEG) [facility] KETONE URINE (NEG) [facility] [place] UROBILINOGEN 0.2 mg/dL (0-1.0) [facility] [place] BILIRUBIN URINE 1+ (NEG) [facility] INTERFERING SUBSTANCES MAY CAUSE FALSEPO SITIVE BILIRUBIN, WHICH HAS BEENSHOWN TO BE CLINICALLY INSIGNIFICANT.CORRELATE WITH OTHER TESTING. BLOOD/HGB URINE 2+ (NEG) [facility] ID Date Data Source [id number] 12/13/2020 09:32:00 AM EDT [facility] ([facility]) Name Value Range Interpretation Code Description Data Morena rce(s) Supporting Document(s) Magnesium [Mass/volume] in Serum or Plasma 1.9 mg/dL 1.8-2.4 [facility] ([facility]) Natriuretic peptide.B prohormone N-Terminal [Mass/volu me] in Serum or Plasma 86683 pg/mL [facility] (Government Program Manager s [facility]) Lipoprotein lipase [Enzymatic activity/volume] in Serum or P lasma 204 U/L 73-393 [facility] ([facility]) Thyrotropin [Units/volume] in Serum or Plasma 2.450 uIU/ML 0.358-3.74 0 [facility] ([facility]) ID Date Data Source [id number] 12/13/2020 09:32:00 AM EDT [facility] ([facility]) Name Value Range Interpretation Code Description Data Morena rce(s) Supporting Document(s) Glucose, Fasting 150 mg/dL 70-100 [facility] ([facility]) Glomerular Filtration Rate 12.9 MED ENT ([facility]) <content>Units are mL/min/1.73 m2</content>
<content></content>
<content>Chronic Kidney Disease Staging per NKF:</content>
<content></content>
<content>Stage I & II GFR >=60 Normal to Mildly Decreased</content>
<content>Stage III GFR 30- 59 Moderately Decreased</content>
<content>Stage IV GFR 15-29 Severely Decreased</content>
<content>Stage V GFR <15 Very Little GFR Left</content>
<content>ESRD GFR <15 on SOCIAL WORK SPECIALIST</content>
<content></content> Creatinine For GFR 4.94 mg/dL 0.70-1.30 [facility] ([facility]) Blood Urea Nitrogen 58 mg/dL 7-18 [facility] ([facility]) Chloride Level 97 meq/L 98-107 [facility] ([facility]) Potassium Serum 6.5 meq/L 3.5-5.1 Above upper panic limits [facility] ([facility]) Sodium Level 133 meq/L 136-145 [facility] ([facility]) Calcium Level 8.8 mg/dL 8.5-10.1 [facility] ([facility]) Anion Gap 15 meq/L 8-16 [facility] ([facility]) Carbon Dioxide Level 21 meq/L 21-32 [facility] ([facility]) ID Date Data Source [id number] 12/13/2020 09:32:00 AM EDT [facility] ([facility]) Name Value Range Interpretation Code Description Data Morena rce(s) Supporting Document(s) Ast/Sgot 5044 U/L 7-37 [facility] ([facility]) Alt/SGPT 5023 U/L 12-78 [facility] ([facility]) Alkaline Phosphatase 49 U/L 45-117 [facility] ([facility]) Bilirubin,Direct 0.4 mg/dL 0.0-0.2 [facility] ([facility]) Bilirubin,Total 0.8 mg/dL 0.2-1.0 [facility] ([facility]) Total Protein 6.7 GM/DL 6.4-8.2 [facility] ([facility]) Albumin/Globulin Ratio 1.0 [facility] ([facility]) Albumin 3.4 GM/DL 3.2-5.2 [facility] ([facility]) ID Date Data Source [id number] 12/13/2020 08:44:00 AM EDT [facility] ([facility]) Name Value Range Interpretation Code Description Data Morena rce(s) Supporting Document(s) Inr 1.92 [facility] ([facility]) THERAPUTIC HUMAN INR VALUES INDICATIONS NORMAL RANGES PROPHYLAXIS/TREATMENT OF: VENOUS THROMBOSIS 2.0-3.0 PULMONARY EMBOLISM 2.0-3.0 PREVENTION OF SYSTEMIC EMBOLISM FROM: TISSUE HEART VALVES 2.0-3.0 ACUTE MYOCARDIAL INFARCTION 2.0-3.0 VALVULAR HEART DISEASE 2.0-3.0 ATRIAL FIBRILLATION 2.0-3.0 MECHANICAL VALVES(HIGH RISK) 2.5-3.5 RECURRENT MYOCARDIAL INFARCTION 2.5-3.5 Prothrombin Time 22.4 s 12.7-14.5 [facility] ([facility]) ID Date Data Source [id number] 12/13/2020 08:40:00 AM [facility]T [facility] Name Value Range Interpretation Code Description Data Morena rce(s) Supporting Document(s) SARS coronavirus 2 RNA [Presence] in Res piratory specimen by VICKEY with probe detection NEGATIVE [facility] This lab was ordered by [facility] a nd reported by [facility]. ID Date Data Source [id number] 07/27/2020 03:50:00 PM EDT [facility] ([facility]) Name Value Range Interpretation Code Description Data Morena rce(s) Supporting Document(s) Hemoglobin A1c/Hemoglobin.total in Blood 8.5 [facility] ([facility]) ID Date Data Source [id number] 07/27/2020 03:50:00 PM EDT [facility] ([facility]) Name Value Range Interpretation Code Description Data Morena rce(s) Supporting Document(s) Triglycerides 297 [facility] ([facility]) HDL 27 [facility] Cholesterol 117 [facility] ([facility]) Chol/HDL Ratio 4.333 [facility] ([facility]) Cholesterol in LDL [Mass/volume] in Serum or Plasma by calculation 31 [facility] ([facility]) ID Date Data Source [id number] 07/21/2020 04:19:00 PM EDT [facility] ([facility]) Name Value Range Interpretation Code Description Data Morena rce(s) Supporting Document(s) Troponin I.cardiac [Mass/volume] in Serum or Plasma 0.13 [facility] ([facility]) ID Date Data Source [id number] 07/21/2020 04:19:00 PM EDT [facility] Name Value Range Interpretation Code Description Data Morena rce(s) Supporting Document(s) Troponin I.cardiac [Mass/volume] in Serum or Plasma 0.11 [facility] ([facility]) ID Date Data Source [id number] 07/21/2020 03:32:00 PM EDT [facility] ([facility]) Name Value Range Interpretation Code Description Data Morena rce(s) Supporting Document(s) White Blood Count 12.9 5.0-10.0 [facility] Red Blood Count 5.50 4.00-5.40 [facility] ([facility]io [facility]y [facility]) Hematocrit 52.3 [facility] ([facility]) Platelets 214 172-450 [facility] (Cardiology [facility]) Hemoglobin 17.9 [facility] ([facility]) ID Date Data Source [id number] 01/06/2020 11:04:00 AM EDT [facility] ([facility]) Name Value Range Interpretation Code Description Data Morena rce(s) Supporting Document(s) Free T4 1.07 [facility] ([facility]) Thyroid Stimulating Hormone 2.8000 ME DENT ([facility]) ID Date Data Source [id number] 01/06/2020 11:04:00 AM EDT [facility] ([facility]) Name Value Range Interpretation Code Description Data Morena rce(s) Supporting Document(s) Alanine aminotransferase [Enzymatic activity/volume] in Serum or Pl asma 42 [facility] ([facility]) Albumin [Mass/volume] in Serum or Plasma 3.9 [facility] ([facility]) Carbon dioxide, total [Moles/volume] in Serum or Plasma 27 [facility] ([facility]) Chloride [Moles/volume] in Serum or Plasma 98 [facility] ([facility]) Calcium [Mass/volume] in Serum or Plasma 9.4 [facility] ([facility]) Potassium [Moles/volume] in Serum or Plasma 4.8 [facility] ([facility]) Alkaline phosphatase [Enzymatic activity/volume] in Serum or Plasma 5 7 [facility] ([facility]) Protein [Mass/volume] in Serum or Plasma 7.5 [facility] ([facility]) Sodium 134 [facility] (Cardiology A [facility]) Aspartate aminotransferase [Enzymatic activity/volume] in Serum or Plasma 24 [facility] ([facility]) Glucose 142 70-100 [facility] Creatinine For GFR 1.30 [facility] ([facility]) Urea nitrogen [Mass/volume] in Serum or Plasma 27 [facility] ([facility]) ID Date Data Source [id number] 01/06/2020 11:04:00 AM EDT [facility] ([facility]i [facility]) Name Value Range Interpretation Code Description Data Morena rce(s) Supporting Document(s) Triglycerides 427 [facility] ([facility]) HDL 27 [facility] ([facility]) Cholesterol 145 [facility] ([facility]) Cholesterol in LDL [Mass/volume] in Serum or Plasma by calculation 11 8 [facility] ([facility]) Chol/HDL Ratio 5.370 [facility] ([facility]iol [facility]gy [facility]) ID Date Data Source [id number] 01/06/2020 11:04:00 AM EDT [facility] ([facility]i [facility]) Name Value Range Interpretation Code Description Data Morena rce(s) Supporting Document(s) Hemoglobin A1c/Hemoglobin.total in Blood 7.9 [facility] ([facility]) ID Date Data Source [id number] 01/06/2020 11:04:00 AM EDT [facility] ([facility]) Name Value Range Interpretation Code Description Data Morena rce(s) Supporting Document(s) Red Blood Count 4.70 4.30-6.10 MEDENT ([facility]) White Blood Count 11.1 4.0-10.0 [facility] ([facility]) Hemoglobin 15.5 MEDENT ([facility]) Hematocrit 46.0 MEDENT ([facility]) Platelets 201 150-450 MEDENT ([facility]) Procedure Social History Code Duration Value Status Description Data Source(s ) Alcohol intake 02/21/2021 12:00:00 AM EST Ex-drinker (finding) comp leted Ex- drinker (finding) [facility] Smoking 01/19/2021 12:00:00 AM EDT Former Smoker completed Former Smoker eCW1 ([facility]) Smoking 12/24/2020 12:00:00 AM EDT Former Smoker completed Former Smoker eCW1 ([facility]) Smoking 12/24/2020 12:00:00 AM EDT Former Smoker completed Former Smoker eCW1 ([facility]) Smoking 12/23/2020 12:00:00 AM EDT Patient is a former smoker completed Patient is a former smoker MEDENT ([facility]) Alcohol intake 12/16/2020 12:00:00 AM EDT Ex-drinker (finding) comp leted Ex- drinker (finding) [facility] Smoking 10/15/2020 12:00:00 AM EDT Former Smoker completed Former Smoker eCW1 ([facility]) Smoking 07/23/2020 12:00:00 AM EDT Former Smoker completed Former Smoker eCW1 ([facility]) Smoking 07/23/2020 12:00:00 AM EDT Former Smoker completed Former Smoker eCW1 ([facility]) Smoking 07/23/2020 12:00:00 AM EDT Former Smoker completed Former Smoker eCW1 ([facility]) Smoking 07/23/2020 12:00:00 AM EDT Former Smoker completed Former Smoker eCW1 ([facility]) Smoking 07/23/2020 12:00:00 AM EDT Former Smoker completed Former Smoker eCW1 ([facility]) Smoking 07/23/2020 12:00:00 AM EDT Former Smoker completed Former Smoker eCW1 ([facility]) Smoking 01/15/2020 12:00:00 AM EDT Former Smoker completed Former Smoker eCW1 ([facility]) Smoking 01/15/2020 12:00:00 AM EDT Former Smoker completed Former Smoker eCW1 ([facility]) Smoking 01/15/2020 12:00:00 AM EDT Former Smoker completed Former Smoker eCW1 ([facility]) Smoking 01/15/2020 12:00:00 AM EDT Former Smoker completed Former Smoker eCW1 ([facility]) Vital Signs ID Date Data Source UNK Name Value Range Interpretation Code Description Data Source(s) Body weight 199.00 [lb_av] 199.00 [lb_av] MEDEN T ([facility]) Body height 68 [in_i] 68 [in_i] MEDPABLO ([facility]) 5'8" Body mass index (BMI) [Ratio] 30.3 kg/m2 30.3 k g/m2 MEDENT ([facility]) Systolic blood pressure--sitting 148 mm[Hg] 148 mm[Hg] MEDENT ([facility]) Ra, large cuff Diastolic blood pressure--sitting 82 mm[Hg] 82 mm[Hg] MEDENT ([facility]) Ra, large cuff Body weight 199.00 [lb_av] 199.00 [lb_av] MEDEN T ([facility]) Systolic blood pressure 114 mm[Hg] 114 mm[Hg] [facility] Diastolic blood pressure 59 mm[Hg] 59 mm[Hg] [facility] Heart rate 54 /min 54 /min [facility] Body temperature 36.39 Hawa 36.39 Hawa [facility] Respiratory rate 16 /min 16 /min [facility] Oxygen saturation in Arterial blood by Pulse oximetry 95 % 95 % [facility] Body height 170.2 cm 170.2 cm [facility] Body weight 90.357 kg 90.357 kg [facility] Body mass index (BMI) [Ratio] 31.20 kg/m2 31.20 kg/m2 [facility] Body weight 203.2 [lb_av] 203.2 [lb_av] eCW[facility] Body height [in_i] W1 ([facility]) Body mass index (BMI) [Ratio] 31.82 kg/m2 31.82 kg/m2 [facility] ([facility]) Heart rate 86 /min 86 /min [facility] ([facility]) Systolic blood pressure 120 mm[Hg] 120 mm[Hg] e CW1 ([facility]) Diastolic blood pressure 70 mm[Hg] 70 mm[Hg] eCW1 ([facility]) Respiratory rate 18 /min 18 /min eCW1 ([facility]) Body temperature 96.8 [degF] 96.8 [degF] eCW1 ( [facility]) Body weight 198 [lb_av] 198 [lb_av] eCW1 ([facility]) Body temperature 97.8 [degF] 97.8 [degF] eCW1 ( [facility]) Systolic blood pressure 140 mm[Hg] 140 mm[Hg] e CW1 ([facility]) Diastolic blood pressure 70 mm[Hg] 70 mm[Hg] eCW1 ([facility]) Body weight 89.81 kg 89.81 kg eCW1 ([facility]) Body height [in_i] eCW1 ([facility]) Body mass index (BMI) [Ratio] 31.01 kg/m2 31.01 kg/m2 eCW1 ([facility]) Heart rate 96 /min 96 /min eCW1 ([facility]) Respiratory rate 18 /min 18 /min eCW1 ([facility]) Body height 68 [in_i] 68 [in_i] HIMA ([facility]) 5'8" Body weight 198.00 [lb_av] 198.00 [lb_av] MEDEN T ([facility]) Body mass index (BMI) [Ratio] 30.1 kg/m2 30.1 k g/m2 MEDENT ([facility]) Systolic blood pressure--sitting 124 mm[Hg] 124 mm[Hg] MEDENT ([facility]) Ra, medium cuff Diastolic blood pressure--sitting 82 mm[Hg] 82 mm[Hg] MEDENT ([facility]) Ra, medium cuff Systolic blood pressure 104 mm[Hg] 104 mm[Hg] [facility] Diastolic blood pressure 64 mm[Hg] 64 mm[Hg] [facility] Heart rate 63 /min 63 /min [facility] Body temperature 36.89 Hawa 36.89 Hawa [facility] Respiratory rate 18 /min 18 /min [facility] Oxygen saturation in Arterial blood by Pulse oximetry 94 % 94 % [facility] Body weight 90.2 kg 90.2 kg [facility] Post dialysis wt Body mass index (BMI) [Ratio] 30.24 kg/m2 30.24 kg/m2 [facility] Respiratory rate 18 /min 18 /min eCW1 ([facility]) Body weight 214 [lb_av] 214 [lb_av] eCW1 ([facility]) Body height [in_i] eCW1 ([facility]) Body mass index (BMI) [Ratio] 33.51 kg/m2 33.51 kg/m2 eCW1 ([facility]) Heart rate 78 /min 78 /min eCW1 ([facility]) Body temperature 97.4 [degF] 97.4 [degF] eCW1 ( [facility]) Systolic blood pressure 138 mm[Hg] 138 mm[Hg] e CW1 ([facility]) Diastolic blood pressure 82 mm[Hg] 82 mm[Hg] eCW1 ([facility]) Body mass index (BMI) [Ratio] 32.8 kg/m2 32.8 k g/m2 MEDENT ([facility]) Body height 68 [in_i] 68 [in_i] MEDENT ([facility]) 5'8" Systolic blood pressure--sitting 126 mm[Hg] 126 mm[Hg] MEDENT ([facility]) Ra, large cuff Diastolic blood pressure--sitting 82 mm[Hg] 82 mm[Hg] MEDENT ([facility]) Ra, large cuff Body weight 216.00 [lb_av] 216.00 [lb_av] MEDEN T ([facility]) Body weight 220.2 [lb_av] 220.2 [lb_av] eCW1 [facility] Heart rate 72 /min 72 /min eCW1 ([facility]) Respiratory rate 18 /min 18 /min eCW1 ([facility]) Body temperature 97.7 [degF] 97.7 [degF] eCW1 ( [facility]) Systolic blood pressure 110 mm[Hg] 110 mm[Hg] e CW1 ([facility]) Diastolic blood pressure 70 mm[Hg] 70 mm[Hg] eCW1 ([facility]) Body mass index (BMI) [Ratio] 34.48 kg/m2 34.48 kg/m2 eCW1 ([facility]) Body height [in_i] eCW1 ([facility]) Heart rate 74 /min 74 /min MEDENT ([facility]) Body weight 230.00 [lb_av] 230.00 [lb_av] MEDEN T ([facility]) Body height 68 [in_i] 68 [in_i] MEDENT ([facility]) 5'8" Body mass index (BMI) [Ratio] 35.0 kg/m2 35.0 k g/m2 MEDENT ([facility]) Respiratory rate 16 /min 16 /min MEDENT ( [facility]) nonlabored Systolic blood pressure--sitting 128 mm[Hg] 128 mm[Hg] MEDENT ([facility]) Ra, large cuff Diastolic blood pressure--sitting 82 mm[Hg] 82 mm[Hg] MEDENT ([facility]) Ra, large cuff Body weight 238 [lb_av] 238 [lb_av] eCW1 ([facility]) Body height [in_i] eCW1 ([facility]) Body mass index (BMI) [Ratio] 37.27 kg/m2 37.27 kg/m2 eCW1 ([facility]) Heart rate 78 /min 78 /min eCW1 ([facility]) Respiratory rate 18 /min 18 /min eCW1 ([facility]) Body temperature 97.9 [degF] 97.9 [degF] eCW1 ( [facility]) Systolic blood pressure 140 mm[Hg] 140 mm[Hg] e CW1 ([facility]) Diastolic blood pressure 90 mm[Hg] 90 mm[Hg] eCW1 ([facility]) Patient Treatment Plan of Care Planned Activity Planned Date Details Description Data Source (s) 24 HR metoprolol succinate 50 MG Extended Release Oral Tablet 02/22/2021 12:00:00 AM EST [facility] Amiodarone hydrochloride 200 MG Oral Tablet 02/22/2021 12:00:00 AM EST [facility] Albuterol 0.833 MG/ML / Ipratropium [place] 0.167 MG/M L Inhalant Solution 02/21/2021 07:24:50 AM EST [facility] normal saline flush 0.9 % injection 3 mL 02/21/2021 07:00:00 AM EST [facility] normal saline flush 0.9 % injection 3 mL 02/21/2021 07:00:00 AM EST [facility] Albuterol 0.83 MG/ML Inhalant Solution 02/21/2021 06:33:07 AM EST [facility] ondansetron (ZOFRAN) injection 4 mg 02/21/2021 05:55:12 AM EST [facility] Furosemide 40 MG Oral Tablet 12/17/2020 12:00:00 AM EDT [facility] clopidogrel 75 MG Oral Tablet 12/17/2020 12:00:00 AM EDT [facility] Acetaminophen 325 MG Oral Tablet 12/15/2020 12:45:21 PM EDT [facility] Albuterol 0.83 MG/ML Inhalant Solution 12/13/2020 01:19:02 PM EDT [facility] Nitroglycerin 0.4 MG Sublingual Tablet 12/13/2020 01:16:55 PM EDT [facility] Lancets - 07/30/2020 12:00:00 AM EDT e CW1 ([facility]) FreeStyle Lite Test - 07/30/2020 12:00:00 AM EDT eCW1 ([facility]) Blood Glucose Monitor System w/Device 07/30/2020 12:00:00 AM EDT eCW1 ([facility]) Blood Glucose Test - 07/30/2020 12:00:00 AM EDT eCW1 ([facility]) Lancets - 07/30/2020 12:00:00 AM EDT e CW1 ([facility]) FreeStyle Lite Test - 07/30/2020 12:00:00 AM EDT eCW1 ([facility]) Blood Glucose Monitor System w/Device 07/30/2020 12:00:00 AM EDT eCW1 ([facility]) Blood Glucose Test - 07/30/2020 12:00:00 AM EDT eCW1 ([facility]) Lancets - 07/30/2020 12:00:00 AM EDT e CW1 ([facility]) FreeStyle Lite Test - 07/30/2020 12:00:00 AM EDT eCW1 ([facility]) Blood Glucose Monitor System w/Device 07/30/2020 12:00:00 AM EDT eCW1 ([facility]) Blood Glucose Test - 07/30/2020 12:00:00 AM EDT eCW1 ([facility]) Lancets - 07/30/2020 12:00:00 AM EDT e CW1 ([facility]) FreeStyle Lite Test - 07/30/2020 12:00:00 AM EDT eCW1 ([facility]) Blood Glucose Monitor System w/Device 07/30/2020 12:00:00 AM EDT eCW1 ([facility]) Blood Glucose Test - 07/30/2020 12:00:00 AM EDT eCW1 ([facility]) 24 HR Metformin hydrochloride 500 MG Extended Release Oral Tablet 07/28/2020 12:00:00 AM EDT eCW1 ([facility]) 24 HR Metformin hydrochloride 500 MG Extended Release Oral Tablet 07/28/2020 12:00:00 AM EDT eCW1 ([facility]) 24 HR Metformin hydrochloride 500 MG Extended Release Oral Tablet 07/28/2020 12:00:00 AM EDT eCW1 ([facility]) 24 HR Metformin hydrochloride 500 MG Extended Release Oral Tablet 07/28/2020 12:00:00 AM EDT eCW1 ([facility]) 24 HR Metformin hydrochloride 500 MG Extended Release Oral Tablet 07/28/2020 12:00:00 AM EDT eCW1 ([facility]) 24 HR Metformin hydrochloride 500 MG Extended Release Oral Tablet 07/28/2020 12:00:00 AM EDT eCW1 ([facility]) 24 HR Metformin hydrochloride 500 MG Extended Release Oral Tablet 07/28/2020 12:00:00 AM EDT eCW1 ([facility]) Steglatro 15 MG 02/20/2020 12:00:00 AM EST eCW1 ([facility]) Steglatro 15 MG 02/20/2020 12:00:00 AM EST eCW1 ([facility]) montelukast 10 MG Oral Tablet [Singulair] 02/12/2020 12:00:00 AM ES T eCW1 ([facility]) montelukast 10 MG Oral Tablet [Singulair] 02/12/2020 12:00:00 AM ES T eCW1 ([facility]) Steglatro 15 MG 01/28/2020 12:00:00 AM EDT eCW1 ([facility]) Steglatro 15 MG 01/28/2020 12:00:00 AM EDT eCW1 ([facility]) Steglatro 15 MG 01/28/2020 12:00:00 AM EDT eCW1 ([facility]) Steglatro 15 MG 01/28/2020 12:00:00 AM EDT eCW1 ([facility]) OneTouch Ultra II Test Strips 01/15/2020 12:00:00 AM EDT eCW1 ([facility]) OneTouch Ultra II Test Strips 01/15/2020 12:00:00 AM EDT eCW1 ([facility]) OneTouch Ultra II Test Strips 01/15/2020 12:00:00 AM EDT eCW1 ([facility]) empagliflozin 10 MG Oral Tablet [Jardiance] 01/15/2020 12:00:00 AM EDT eCW1 ([facility]) OneTouch Ultra II Test Strips 01/15/2020 12:00:00 AM EDT eCW1 ([facility]) montelukast 10 MG Oral Tablet [Singulair] 01/15/2020 12:00:00 AM ED T eCW1 ([facility]) empagliflozin 10 MG Oral Tablet [Jardiance] 01/15/2020 12:00:00 AM EDT eCW1 ([facility]) OneTouch Ultra II Test Strips 01/15/2020 12:00:00 AM EDT eCW1 ([facility]) montelukast 10 MG Oral Tablet [Singulair] 01/15/2020 12:00:00 AM ED T eCW1 ([facility]) OneTouch Ultra II Test Strips 01/15/2020 12:00:00 AM EDT eCW1 ([facility]) Bisoprolol Fumarate 5 MG Oral Tablet [facility] Ibuprofen 200 MG Oral Tablet [facility] Chlorthalidone 25 MG Oral Tablet [facility] Amlodipine 10 MG Oral Tablet [facility] clopidogrel 75 MG Oral Tablet [facility] PARoxetine (PAXIL) 20 MG tablet [facility] Metformin hydrochloride 850 MG Oral Tablet [facility] Atenolol 50 MG Oral Tablet [facility] Losartan Potassium 50 MG Oral Tablet [facility]
[2021-03-04] MEDS ORDERED: POTASSIUM CHLORIDE 10MEQ SR TABLET PO ONE (09:40)
[2021-03-04] MEDS ORDERED: K-TA1TAB PO (10:16)
[2021-03-04 10:24] VITALS: BP 151/55
--- NOTE | 2021-03-05 10:23 | ECGEPIP ---
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
== END 2021-03-04 10:31 | disposition home or self-care (01) ==
LOC: M ED 07:26
DX: F41.9 Anxiety disorder, unspecified (principal); E87.6 Hypokalemia; I25.2 Old myocardial infarction; R94.31 Abnormal electrocardiogram [ECG] [EKG]; I11.0 Hypertensive heart disease with heart failure; I50.9 Heart failure, unspecified; I25.10 Atherosclerotic heart disease of native coronary artery without angina pectoris; E78.5 Hyperlipidemia, unspecified; Z79.01 Long term (current) use of anticoagulants; Z79.82 Long term (current) use of aspirin; Z79.84 Long term (current) use of oral hypoglycemic drugs; Z79.899 Other long term (current) drug therapy; Z87.891 Personal history of nicotine dependence; Z95.810 Presence of automatic (implantable) cardiac defibrillator

== ENCOUNTER → 2021-03-10 | Outpatient (REF) | payer OTHER ==
[~2021-03-10] MED LIST changes: -AMIO200T3; +AMIO200T49; +CLOP75TA2; +FURO40TA2; +K-TA1TAB PO; +LOSA25TA13 PO; -LOSA25TA14 PO; +LOSA50TA28 PO; -LOSA50TA88 PO; -MONT10TA10 PO; +MONT10TA97 PO
[2021-03-10 13:24] LABS: BLOOD UREA NITROGEN 20 MG/DL (7-18); CALCIUM LEVEL 9.8 MG/DL (8.5-10.1); CARBON DIOXIDE LEVEL 32 MEQ/L (21-32); CHLORIDE LEVEL 95 MEQ/L (98-107); FREE T4 1.34 NG/DL (0.76-1.46); GLOMERULAR FILTRATION RATE > 60.0 (>56); GLUCOSE, FASTING 153 MG/DL (70-100); POTASSIUM SERUM 4.3 MEQ/L (3.5-5.1); SODIUM LEVEL 135 MEQ/L (136-145); VITAMIN B12 LEVEL 389 PG/ML
[2021-03-10 13:25] LABS: FOLATE 12.9 NG/ML
== END ==
LOC: M SFHCADAM 10:07
PROVIDERS: ATTEND Physician Assistant
DX: F41.9 Anxiety disorder, unspecified (principal); R20.2 Paresthesia of skin; E87.6 Hypokalemia; H93.19 Tinnitus, unspecified ear

== ENCOUNTER → 2021-03-14 | Outpatient (REF) | payer OTHER ==
[~2021-03-14] MED LIST changes: +AMIO200T3; -AMIO200T49; -LOSA25TA13 PO; +LOSA25TA14 PO; -LOSA50TA28 PO; +LOSA50TA88 PO; +MONT10TA10 PO; -MONT10TA97 PO
[2021-03-14 13:31] LABS: ALBUMIN 4.1 GM/DL (3.2-5.2); ALT/SGPT 36 U/L (12-78); BILIRUBIN,TOTAL 0.4 MG/DL (0.2-1.0); BLOOD UREA NITROGEN 22 MG/DL (7-18); CALCIUM LEVEL 9.8 MG/DL (8.5-10.1); CARBON DIOXIDE LEVEL 30 MEQ/L (21-32); CHLORIDE LEVEL 100 MEQ/L (98-107); CREATININE FOR GFR 1.17 MG/DL (0.70-1.30); FREE T4 1.22 NG/DL (0.76-1.46); GLOMERULAR FILTRATION RATE > 60.0 (>56); GLUCOSE, FASTING 144 MG/DL (70-100); MAGNESIUM LEVEL 1.9 MG/DL (1.8-2.4); POTASSIUM SERUM 4.2 MEQ/L (3.5-5.1); SODIUM LEVEL 138 MEQ/L (136-145); TOTAL PROTEIN 7.7 GM/DL (6.4-8.2)
== END ==
LOC: M LABDRWAD 12:28
PROVIDERS: ATTEND Physician Assistant
DX: I47.2 Ventricular tachycardia (principal)

== ENCOUNTER → 2021-05-19 | Outpatient (CLI) | payer OTHER ==
[~2021-05-19] MED LIST changes: -AMIO200T3; +AMIO200T49; +LOSA25TA13 PO; -LOSA25TA14 PO; +LOSA50TA28 PO; -LOSA50TA88 PO; -MONT10TA10 PO; +MONT10TA97 PO
[2021-05-19 11:15] LABS: BASO # 0.2 10^3/uL (0.0-0.2); BASO % 1.2 % (0.0-1.0); EOS # 0.2 10^3/uL (0.0-0.5); EOS % 1.3 % (0.0-3.0); HEMATOCRIT 51.9 % (42.0-52.0); HEMOGLOBIN 16.9 g/dl (13.5-17.5); LYMPH # 3.6 10^3/uL (1.5-5.0); LYMPH % 28.2 % (24.0-44.0); MEAN CORPUSCULAR HEMOGLOBIN 32.2 pg (27.0-33.0); MEAN CORPUSCULAR HGB CONC 32.6 g/dl (32.0-36.5); MEAN CORPUSCULAR VOLUME 98.9 fl (80.0-96.0); MONO # 1.1 10^3/uL (0.0-0.8); MONO % 8.5 % (2.0-8.0); NEUTROPHILS # 7.6 10^3/uL (1.5-8.5); NEUTROPHILS % 59.6 % (36.0-66.0); PLATELET COUNT, AUTOMATED 234 10^3/uL (150-450); RED BLOOD COUNT 5.25 10^6/uL (4.30-6.10); WHITE BLOOD COUNT 12.8 10^3/uL (4.0-10.0)
[2021-05-19 11:58] LABS: ALBUMIN 4.2 GM/DL (3.2-5.2); BILIRUBIN,TOTAL 0.5 MG/DL (0.2-1.0); CALCIUM LEVEL 9.4 MG/DL (8.8-10.2); CREATININE FOR GFR 1.5 MG/DL (0.70-1.30); GLOMERULAR FILTRATION RATE 50.8 (>49); POTASSIUM SERUM 4.2 MEQ/L (3.5-5.1); THYROID STIMULATING HORMONE 3.17 uIU/ML (0.358-3.740); TOTAL PROTEIN 7.7 GM/DL (6.4-8.2)
[2021-05-19 22:44] LABS: MAGNESIUM LEVEL 1.8 MG/DL (1.7-2.2)
== END ==
LOC: M ADAMS 08:09
PROVIDERS: ATTEND Physician Assistant
DX: I47.2 Ventricular tachycardia (principal); I25.5 Ischemic cardiomyopathy

== ENCOUNTER → 2021-07-19 | Outpatient (REF) | payer OTHER ==
[2021-07-19 17:14] LABS: ALBUMIN 4.1 GM/DL (3.2-5.2); BILIRUBIN,TOTAL 0.5 MG/DL (0.2-1.0); CREATININE FOR GFR 1.44 MG/DL (0.70-1.30); GLOMERULAR FILTRATION RATE 53.3 (>49); MAGNESIUM LEVEL 2.2 MG/DL (1.8-2.4); POTASSIUM SERUM 5.1 MEQ/L (3.5-5.1); TOTAL PROTEIN 7.6 GM/DL (6.4-8.2)
== END ==
LOC: M LABDRWAD 12:48
PROVIDERS: ATTEND Physician Assistant
DX: I25.10 Atherosclerotic heart disease of native coronary artery without angina pectoris (principal); I25.5 Ischemic cardiomyopathy

== ENCOUNTER → 2021-07-19 | Outpatient (REF) | payer OTHER ==
[2021-07-19 12:30] LABS: HEMATOCRIT 53.9 % (42.0-52.0); HEMOGLOBIN 17.9 g/dl (13.5-17.5); MEAN CORPUSCULAR HEMOGLOBIN 32.7 pg (27.0-33.0); MEAN CORPUSCULAR HGB CONC 33.2 g/dl (32.0-36.5); MEAN CORPUSCULAR VOLUME 98.5 fl (80.0-96.0); PLATELET COUNT, AUTOMATED 196 10^3/uL (150-450); RED BLOOD COUNT 5.47 10^6/uL (4.30-6.10); WHITE BLOOD COUNT 11.7 10^3/uL (4.0-10.0)
[2021-07-19 13:43] LABS: ALBUMIN 3.9 GM/DL (3.2-5.2); BILIRUBIN,TOTAL 0.5 MG/DL (0.2-1.0); CALCIUM LEVEL 9.2 MG/DL (8.8-10.2); CREATININE FOR GFR 1.53 MG/DL (0.70-1.30); GLOMERULAR FILTRATION RATE 49.7 (>49); POTASSIUM SERUM 4.5 MEQ/L (3.5-5.1); TOTAL PROTEIN 7.4 GM/DL (6.4-8.2)
[2021-07-19 14:43] LABS: CREATININE, URINE < 13.0 MG/DL
[2021-07-19 17:56] LABS: HEMOGLOBIN A1c 8.4 %
== END ==
LOC: M SFHCADAM 07:57
PROVIDERS: ATTEND Physician Assistant
DX: I10 Essential (primary) hypertension (principal); F17.211 Nicotine dependence, cigarettes, in remission; E11.9 Type 2 diabetes mellitus without complications

== ENCOUNTER → 2021-07-21 | Outpatient (REF) | payer OTHER ==
[2021-07-21 15:05] LABS: PERCENT SATURATION 23.1 % (19.7-50.0)
== END ==
LOC: M SFHCADAM 10:22
PROVIDERS: ATTEND Physician Assistant
DX: N18.31 Chronic kidney disease, stage 3a (principal); R74.8 Abnormal levels of other serum enzymes; D75.1 Secondary polycythemia

== ENCOUNTER → 2021-07-29 | Outpatient (CLI) | payer OTHER | LOC: M WHC 07:17 | PROVIDERS: ATTEND Physician Assistant | DX: R74.8 Abnormal levels of other serum enzymes (principal); N28.1 Cyst of kidney, acquired; K76.0 Fatty (change of) liver, not elsewhere classified ==

== ENCOUNTER → 2021-10-17 | Outpatient (CLI) | payer OTHER ==
[2021-10-17 18:07] LABS: ALBUMIN 4.2 GM/DL (3.2-5.2); BILIRUBIN,TOTAL 0.7 MG/DL (0.2-1.0); CALCIUM LEVEL 9.5 MG/DL (8.8-10.2); CREATININE FOR GFR 1.65 MG/DL (0.70-1.30); GLOMERULAR FILTRATION RATE 45.5 (>49); MAGNESIUM LEVEL 2.4 MG/DL (1.8-2.4); POTASSIUM SERUM 4.8 MEQ/L (3.5-5.1); TOTAL PROTEIN 8.1 GM/DL (6.4-8.2)
== END ==
LOC: M PLALAB 08:45
PROVIDERS: ATTEND Physician Assistant
DX: I25.10 Atherosclerotic heart disease of native coronary artery without angina pectoris (principal)

== ENCOUNTER → 2021-12-16 | Outpatient (REF) | payer OTHER ==
[2021-12-19 19:13] LABS: CREATININE,RANDOM URINE 33.9 MG/DL; TOTAL PROTEIN,RANDOM URINE 7.8 MG/DL (0.0-12.0)
[2021-12-20 09:37] LABS: TOTAL PROTEIN 7.9 GM/DL (6.4-8.2)
[2021-12-20 15:42] LABS: ALBUMIN 4.13 GM/DL (3.29-5.55); ALBUMIN % 52.3 % (55.8-66.1); ALPHA-1-GLOBULIN % 4.8 % (2.9-4.9); ALPHA-1-GLOBULINS 0.38 GM/DL (0.17-0.41); ALPHA-2-GLOBULINS 1.18 GM/DL (0.42-0.99); ALPHA-2-GLOBULINS % 14.9 % (7.1-11.8); BETA-1-GLOBULINS 0.55 GM/DL (0.28-0.60); BETA-2-GLOBULINS 0.52 GM/DL (0.19-0.55); BETA-2-GLOBULINS % 6.6 % (3.2-6.5); GAMMA GLOBULIN % 14.4 % (11.1-18.8); GAMMA GLOBULINS 1.14 GM/DL (0.65-1.58)
== END ==
LOC: M LAB REF 17:28
PROVIDERS: ATTEND Internal Medicine Nephrology
DX: N18.31 Chronic kidney disease, stage 3a (principal)

== ENCOUNTER → 2022-01-23 | Outpatient (CLI) | payer OTHER ==
[2022-01-23 14:47] LABS: ALBUMIN 3.5 GM/DL (3.2-5.2); BILIRUBIN,TOTAL 0.3 MG/DL (0.2-1.0); CALCIUM LEVEL 8.9 MG/DL (8.8-10.2); CHOLESTEROL RISK RATIO 4.555 (<5); CREATININE FOR GFR 1.39 MG/DL (0.70-1.30); GLOMERULAR FILTRATION RATE 55.5 (>49); MAGNESIUM LEVEL 2.4 MG/DL (1.8-2.4); POTASSIUM SERUM 4.4 MEQ/L (3.5-5.1); TOTAL PROTEIN 7.3 GM/DL (6.4-8.2)
== END ==
LOC: M PLALAB 11:20
PROVIDERS: ATTEND Physician Assistant
DX: I25.5 Ischemic cardiomyopathy (principal); I47.20 Ventricular tachycardia, unspecified; I25.10 Atherosclerotic heart disease of native coronary artery without angina pectoris

== ENCOUNTER → 2022-01-26 | Outpatient (CLI) | payer OTHER | LOC: M RAD 06:32 | PROVIDERS: ATTEND Internal Medicine Nephrology | DX: N18.31 Chronic kidney disease, stage 3a (principal) ==

== ENCOUNTER → 2022-03-14 | Outpatient (REF) | payer OTHER ==
[2022-03-14 14:41] LABS: HEMOGLOBIN A1c 7.9 % (4.0-6.0)
== END ==
LOC: M SFHCADAM 07:37
PROVIDERS: ATTEND Physician Assistant
DX: E11.9 Type 2 diabetes mellitus without complications (principal)

== ENCOUNTER → 2022-07-03 | Outpatient (REF) | payer OTHER ==
[2022-07-03 15:12] LABS: ALBUMIN 3.7 G/DL (3.2-5.2); BILIRUBIN,TOTAL 0.5 MG/DL (0.3-1.2); CALCIUM LEVEL 9.2 MG/DL (8.3-10.6); CREATININE FOR GFR 1.34 MG/DL (0.70-1.30); GLOMERULAR FILTRATION RATE 57.7 (>49); MAGNESIUM LEVEL 2.1 MG/DL (1.8-2.4); POTASSIUM SERUM 5.1 MMOL/L (3.5-5.1)
== END ==
LOC: M LABDRWAD 12:49
PROVIDERS: ATTEND Physician Assistant
DX: I25.5 Ischemic cardiomyopathy (principal)

== ENCOUNTER → 2022-07-03 | Outpatient (REF) | payer OTHER ==
[2022-07-03 15:35] LABS: HEMOGLOBIN A1c 8.5 % (4.0-6.0)
[2022-07-03 15:38] LABS: ALBUMIN 3.6 G/DL (3.2-5.2); BILIRUBIN,TOTAL 0.5 MG/DL (0.3-1.2); CALCIUM LEVEL 8.8 MG/DL (8.3-10.6); CREATININE FOR GFR 1.35 MG/DL (0.70-1.30); GLOMERULAR FILTRATION RATE 57.2 (>49)
== END ==
LOC: M SFHCADAM 07:57
PROVIDERS: ATTEND Physician Assistant
DX: E11.22 Type 2 diabetes mellitus with diabetic chronic kidney disease (principal); Z12.5 Encounter for screening for malignant neoplasm of prostate; Z12.11 Encounter for screening for malignant neoplasm of colon

== ENCOUNTER → 2022-11-06 | Outpatient (CLI) | payer OTHER ==
[2022-11-06 13:29] LABS: BASO # 0.1 10^3/uL (0.0-0.2); BASO % 1.1 % (0.0-1.0); EOS # 0.1 10^3/uL (0.0-0.5); EOS % 0.9 % (0.0-3.0); HEMATOCRIT 56.5 % (42.0-52.0); HEMOGLOBIN 17.5 g/dl (13.5-17.5); LYMPH # 2.3 10^3/uL (1.5-5.0); LYMPH % 19.1 % (24.0-44.0); MEAN CORPUSCULAR HEMOGLOBIN 30.2 pg (27.0-33.0); MEAN CORPUSCULAR VOLUME 97.4 fl (80.0-96.0); MONO # 1.1 10^3/uL (0.0-0.8); NEUTROPHILS # 8.3 10^3/uL (1.5-8.5); NEUTROPHILS % 68.5 % (36.0-66.0); PLATELET COUNT, AUTOMATED 211 10^3/uL (150-450); WHITE BLOOD COUNT 12.1 10^3/uL (4.0-10.0)
[2022-11-06 13:51] LABS: ALBUMIN 3.3 G/DL (3.2-5.2); BILIRUBIN,TOTAL 0.5 MG/DL (0.3-1.2); CALCIUM LEVEL 9.2 MG/DL (8.3-10.6); CREATININE FOR GFR 1.35 MG/DL (0.70-1.30); GLOMERULAR FILTRATION RATE 57.2 (>49); POTASSIUM SERUM 4.9 MMOL/L (3.5-5.1); TOTAL PROTEIN 6.9 G/DL (5.7-8.2)
[2022-11-06 13:52] LABS: THYROID STIMULATING HORMONE 3.369 uIU/ML (0.55-4.78)
== END ==
LOC: M ADAMS 08:09
PROVIDERS: ATTEND Internal Medicine Cardiovascular Disease
DX: I11.0 Hypertensive heart disease with heart failure (principal); Z95.0 Presence of cardiac pacemaker

== ENCOUNTER → 2022-12-20 | Outpatient (REF) | payer OTHER ==
[2022-12-20 17:36] LABS: HEMOGLOBIN A1c 8.7 % (4.0-6.0)
== END ==
LOC: M SFHCADAM 14:31
PROVIDERS: ATTEND Physician Assistant
DX: E11.59 Type 2 diabetes mellitus with other circulatory complications (principal)

== ENCOUNTER → 2022-12-21 | Outpatient (REF) | payer OTHER | LOC: M SFHCADAM 17:50 | PROVIDERS: ATTEND Physician Assistant | DX: Z53.9 Procedure and treatment not carried out, unspecified reason (principal); E11.59 Type 2 diabetes mellitus with other circulatory complications ==

== ENCOUNTER → 2023-01-31 | Outpatient (REF) | payer OTHER ==
[2023-01-31 16:37] LABS: BASO # 0.1 10^3/uL (0.0-0.2); BASO % 0.8 % (0.0-1.0); EOS # 0.1 10^3/uL (0.0-0.5); EOS % 0.9 % (0.0-3.0); HEMOGLOBIN 17.4 g/dl (13.5-17.5); LYMPH # 2.6 10^3/uL (1.5-5.0); LYMPH % 19.3 % (24.0-44.0); MEAN CORPUSCULAR HEMOGLOBIN 30.9 pg (27.0-33.0); MEAN CORPUSCULAR HGB CONC 31.6 g/dl (32.0-36.5); MEAN CORPUSCULAR VOLUME 97.7 fl (80.0-96.0); MONO % 7.4 % (2.0-8.0); NEUTROPHILS # 9.5 10^3/uL (1.5-8.5); NEUTROPHILS % 69.5 % (36.0-66.0); PLATELET COUNT, AUTOMATED 237 10^3/uL (150-450); RED BLOOD COUNT 5.63 10^6/uL (4.30-6.10); WHITE BLOOD COUNT 13.6 10^3/uL (4.0-10.0)
[2023-01-31 16:51] LABS: ALBUMIN 3.7 G/DL (3.2-5.2); BILIRUBIN,TOTAL 0.4 MG/DL (0.3-1.2); CALCIUM LEVEL 9.3 MG/DL (8.3-10.6); CREATININE FOR GFR 1.32 MG/DL (0.70-1.30); GLOMERULAR FILTRATION RATE 58.7 (>49); POTASSIUM SERUM 5.5 MMOL/L (3.5-5.1); TOTAL PROTEIN 7.6 G/DL (5.7-8.2)
[2023-01-31 16:53] LABS: THYROID STIMULATING HORMONE 3.906 uIU/ML (0.55-4.78)
== END ==
LOC: M LABDRWAD 15:58
PROVIDERS: ATTEND Internal Medicine Cardiovascular Disease
DX: I35.8 Other nonrheumatic aortic valve disorders (principal); I11.0 Hypertensive heart disease with heart failure; I25.10 Atherosclerotic heart disease of native coronary artery without angina pectoris; I47.20 Ventricular tachycardia, unspecified

== ENCOUNTER → 2023-07-09 | Outpatient (REF) | payer OTHER ==
[2023-07-09 13:27] LABS: CALCIUM LEVEL 9.2 MG/DL (8.3-10.6); CREATININE FOR GFR 1.48 MG/DL (0.70-1.30); GLOMERULAR FILTRATION RATE 51.3 (>49); POTASSIUM SERUM 3.9 MMOL/L (3.5-5.1)
[2023-07-09 13:41] LABS: HEMOGLOBIN A1c 8.7 % (4.0-6.0)
== END ==
LOC: M SFHCADAM 07:27
PROVIDERS: ATTEND Physician Assistant
DX: E11.59 Type 2 diabetes mellitus with other circulatory complications (principal)

== ENCOUNTER → 2023-09-06 | Outpatient (REF) | payer OTHER ==
[2023-09-06 14:36] LABS: ALBUMIN 3.4 G/DL (3.2-5.2); BILIRUBIN,TOTAL 0.3 MG/DL (0.3-1.2); CALCIUM LEVEL 8.9 MG/DL (8.3-10.6); CHOLESTEROL RISK RATIO 5.24 (<5); CREATININE FOR GFR 1.36 MG/DL (0.70-1.30); GLOMERULAR FILTRATION RATE 56.5 (>49); HDL CHOLESTEROL 26.5 MG/DL (>40); LDL CHOLESTEROL 38.9 MG/DL (<100); NON-HDL-C 112.5 MG/DL; POTASSIUM SERUM 4.5 MMOL/L (3.5-5.1); TOTAL PROTEIN 6.8 G/DL (5.7-8.2)
[2023-09-06 14:38] LABS: THYROID STIMULATING HORMONE 4.022 uIU/ML (0.55-4.78)
== END ==
LOC: M LABDRWAD 13:01
PROVIDERS: ATTEND Physician Assistant
DX: E78.2 Mixed hyperlipidemia (principal); I47.20 Ventricular tachycardia, unspecified; I25.10 Atherosclerotic heart disease of native coronary artery without angina pectoris; I50.42 Chronic combined systolic (congestive) and diastolic (congestive) heart failure; I25.5 Ischemic cardiomyopathy

== ENCOUNTER → 2023-09-06 | Outpatient (CLI) | payer OTHER | LOC: M ADAMS 07:58 | PROVIDERS: ATTEND Physician Assistant | DX: I47.20 Ventricular tachycardia, unspecified (principal) ==

== ENCOUNTER → 2023-12-24 | Outpatient (REF) | payer OTHER ==
[2023-12-24 14:36] LABS: HEMATOCRIT 50.8 % (42.0-52.0); HEMOGLOBIN 16.4 g/dl (13.5-17.5); MEAN CORPUSCULAR HEMOGLOBIN 31.8 pg (27.0-33.0); MEAN CORPUSCULAR HGB CONC 32.3 g/dl (32.0-36.5); MEAN CORPUSCULAR VOLUME 98.6 fl (80.0-96.0); PLATELET COUNT, AUTOMATED 206 10^3/uL (150-450); RED BLOOD COUNT 5.15 10^6/uL (4.30-6.10); WHITE BLOOD COUNT 10.9 10^3/uL (4.0-10.0)
[2023-12-24 14:44] LABS: ALBUMIN 3.4 G/DL (3.2-5.2); BILIRUBIN,TOTAL 0.5 MG/DL (0.3-1.2); CALCIUM LEVEL 9.1 MG/DL (8.3-10.6); CREATININE FOR GFR 1.76 MG/DL (0.70-1.30); POTASSIUM SERUM 4.6 MMOL/L (3.5-5.1)
[2023-12-24 15:20] LABS: HEMOGLOBIN A1c 7.2 % (4.0-6.0)
== END ==
LOC: M SFHCADAM 07:27
PROVIDERS: ATTEND Physician Assistant
DX: Z00.00 Encounter for general adult medical examination without abnormal findings (principal); E11.59 Type 2 diabetes mellitus with other circulatory complications; F17.218 Nicotine dependence, cigarettes, with other nicotine-induced disorders

== ENCOUNTER 2024-01-15 17:29 | Emergency (ER) | payer OTHER ==
[~2024-01-15] VITALS: Ht 172.7 cm; Wt 98.9 kg
[2024-01-15 17:38] VITALS: BP 167/81; TEMP 97.6; O2SAT 94
[2024-01-15] MEDS ORDERED: DULA4.5P (17:45)
== END 2024-01-15 19:15 | disposition home or self-care (01) ==
LOC: M ED 17:29
DX: K46.9 Unspecified abdominal hernia without obstruction or gangrene (principal); R58 Hemorrhage, not elsewhere classified; E11.9 Type 2 diabetes mellitus without complications; I10 Essential (primary) hypertension; E78.5 Hyperlipidemia, unspecified; I25.2 Old myocardial infarction; J44.9 Chronic obstructive pulmonary disease, unspecified; J45.909 Unspecified asthma, uncomplicated; F17.200 Nicotine dependence, unspecified, uncomplicated; Z79.01 Long term (current) use of anticoagulants; Z79.52 Long term (current) use of systemic steroids; Z79.82 Long term (current) use of aspirin; Z79.02 Long term (current) use of antithrombotics/antiplatelets; Z79.899 Other long term (current) drug therapy

== ENCOUNTER 2024-01-18 10:33 | Emergency (ER) | payer OTHER ==
[~2024-01-18] VITALS: Ht 172.7 cm; Wt 100.5 kg
[~2024-01-18 10:33] MED LIST changes: +DULA4.5P
[2024-01-18 10:36] VITALS: BP 177/75; TEMP 97.2; O2SAT 95
[2024-01-18] MEDS ORDERED: CEPH500C PO (14:19)
== END 2024-01-18 14:32 | disposition home or self-care (01) ==
LOC: M ED 10:33
DX: S31.109A Unspecified open wound of abdominal wall, unspecified quadrant without penetration into peritoneal cavity, initial encounter (principal); K42.9 Umbilical hernia without obstruction or gangrene; I25.2 Old myocardial infarction; E78.5 Hyperlipidemia, unspecified; I10 Essential (primary) hypertension; E11.9 Type 2 diabetes mellitus without complications; Z79.52 Long term (current) use of systemic steroids; Z79.82 Long term (current) use of aspirin; Z79.02 Long term (current) use of antithrombotics/antiplatelets; Z79.2 Long term (current) use of antibiotics; Z79.899 Other long term (current) drug therapy; Z79.01 Long term (current) use of anticoagulants; Y92.9 Unspecified place or not applicable; Y93.89 Activity, other specified; Y99.9 Unspecified external cause status

== ENCOUNTER → 2024-03-25 | Outpatient (CLI) | payer OTHER ==
[~2024-03-25] MED LIST changes: +CEPH500C PO
[2024-03-25 14:12] LABS: ALBUMIN 2.9 G/DL (3.2-5.2); BILIRUBIN,TOTAL 0.5 MG/DL (0.3-1.2); CALCIUM LEVEL 9.1 MG/DL (8.3-10.6); CREATININE FOR GFR 1.72 MG/DL (0.70-1.30); GLOMERULAR FILTRATION RATE 43.1 (>49); MAGNESIUM LEVEL 2.1 MG/DL (1.8-2.4); POTASSIUM SERUM 4.3 MMOL/L (3.5-5.1); TOTAL PROTEIN 7.3 G/DL (5.7-8.2)
[2024-03-25 14:13] LABS: THYROID STIMULATING HORMONE 3.263 uIU/ML (0.55-4.78)
== END ==
LOC: M ADAMS 07:55
PROVIDERS: ATTEND Physician Assistant
DX: I47.20 Ventricular tachycardia, unspecified (principal); I25.10 Atherosclerotic heart disease of native coronary artery without angina pectoris; I50.42 Chronic combined systolic (congestive) and diastolic (congestive) heart failure; I25.5 Ischemic cardiomyopathy

== ENCOUNTER → 2024-07-29 | Outpatient (REF) | payer OTHER ==
[2024-07-29 13:53] LABS: BASO # 0.1 10^3/uL (0.0-0.2); BASO % 0.9 % (0.0-1.0); EOS # 0.1 10^3/uL (0.0-0.5); EOS % 1.1 % (0.0-3.0); HEMATOCRIT 51.2 % (42.0-52.0); HEMOGLOBIN 16.2 g/dl (13.5-17.5); LYMPH # 2.1 10^3/uL (1.5-5.0); MEAN CORPUSCULAR HEMOGLOBIN 31.9 pg (27.0-33.0); MEAN CORPUSCULAR HGB CONC 31.6 g/dl (32.0-36.5); MEAN CORPUSCULAR VOLUME 100.8 fl (80.0-96.0); MONO # 0.9 10^3/uL (0.0-0.8); MONO % 8.1 % (2.0-8.0); NEUTROPHILS # 8.1 10^3/uL (1.5-8.5); NEUTROPHILS % 71.2 % (36.0-66.0); PLATELET COUNT, AUTOMATED 204 10^3/uL (150-450); RED BLOOD COUNT 5.08 10^6/uL (4.30-6.10); WHITE BLOOD COUNT 11.4 10^3/uL (4.0-10.0)
[2024-07-29 14:15] LABS: HEMOGLOBIN A1c 7.8 % (4.0-6.0)
[2024-07-29 14:23] LABS: PSA SCREENING 0.35 NG/ML (< 4.00)
[2024-07-29 14:28] LABS: FERRITIN 74.6 NG/ML (10.5-307.3)
[2024-07-29 14:35] LABS: ALBUMIN 3.3 G/DL (3.2-5.2); ALKALINE PHOSPHATASE 77 U/L (40-129); ALT/SGPT 72 U/L (7.0-40); AST/SGOT 56 U/L (<34); BILIRUBIN,TOTAL 0.3 MG/DL (0.3-1.2); BLOOD UREA NITROGEN 33 MG/DL (9-23); CALCIUM LEVEL 9.1 MG/DL (8.3-10.6); CARBON DIOXIDE LEVEL 28 MMOL/L (20-31); CHLORIDE LEVEL 103 MMOL/L (98-107); CHOLESTEROL LEVEL 148 MG/DL (<200); CHOLESTEROL RISK RATIO 5.34 (<5); CREATININE FOR GFR 1.88 MG/DL (0.70-1.30); GLOMERULAR FILTRATION RATE 39.7 (>49); GLUCOSE, FASTING 211 MG/DL (74-106); HDL CHOLESTEROL 27.7 MG/DL (>40); LDL CHOLESTEROL 76.7 MG/DL (<100); NON-HDL-C 120.3 MG/DL; POTASSIUM SERUM 4.3 MMOL/L (3.5-5.1); SODIUM LEVEL 142 MMOL/L (136-145); TOTAL PROTEIN 6.9 G/DL (5.7-8.2); TRIGLYCERIDES LEVEL 218 MG/DL (<150)
[2024-07-29 15:03] LABS: HEPATITIS B SURFACE ANTIBODY NEGATIVE (POSITIVE); HEPATITIS B SURFACE ANTIGEN NEGATIVE (NEGATIVE); HEPATITIS C VIRUS ABY INDEX 0.03 INDEX (<0.8)
[2024-07-30 14:32] LABS: HEPATITIS B CORE ANTIBODY IGG NON-REACTIVE (NON-REACTIVE)
[2024-07-30 16:26] LABS: ANA SCREEN, IFA NEGATIVE (NEGATIVE)
== END ==
LOC: M SFHCADAM 07:55
PROVIDERS: ATTEND Physician Assistant
DX: K76.0 Fatty (change of) liver, not elsewhere classified (principal); E11.59 Type 2 diabetes mellitus with other circulatory complications; F17.218 Nicotine dependence, cigarettes, with other nicotine-induced disorders; J30.89 Other allergic rhinitis; J41.1 Mucopurulent chronic bronchitis; R74.8 Abnormal levels of other serum enzymes; Z12.5 Encounter for screening for malignant neoplasm of prostate

== ENCOUNTER → 2024-08-21 | Outpatient (REF) | payer OTHER ==
[2024-08-21 17:45] LABS: BACTERIA, URINE AUTO 1+ (NEGATIVE); RBC, URINE AUTO 10 /HPF (0-3); SQUAMOUS EPITHELIAL CELL UR AU 1 /HPF (0-6); WBC, URINE AUTO 23 /HPF (0-3)
== END ==
LOC: M LAB REF 17:00
PROVIDERS: ATTEND Nurse Practitioner Family
DX: R31.21 Asymptomatic microscopic hematuria (principal)

== ENCOUNTER 2024-11-18 12:46 | Emergency (ER) | payer OTHER ==
[~2024-11-18] VITALS: Ht 172.7 cm; Wt 96.6 kg
[~2024-11-18 12:46] MED LIST changes: -AMIO200T49; +AMIO200T54
[2024-11-18] MEDS ORDERED: BENZ200C70 PO (17:33)
[2024-11-18] MEDS ORDERED: MUCI600T31 PO (17:33)
[2024-11-18 17:37] VITALS: BP 163/77; TEMP 99.3; O2SAT 95
== END 2024-11-18 17:39 | disposition home or self-care (01) ==
LOC: M ED 14:36
DX: J06.9 Acute upper respiratory infection, unspecified (principal); B34.8 Other viral infections of unspecified site; R91.1 Solitary pulmonary nodule; I51.7 Cardiomegaly; J44.9 Chronic obstructive pulmonary disease, unspecified; F17.200 Nicotine dependence, unspecified, uncomplicated; Z79.52 Long term (current) use of systemic steroids; Z79.899 Other long term (current) drug therapy; Z79.82 Long term (current) use of aspirin; Z79.02 Long term (current) use of antithrombotics/antiplatelets

== ENCOUNTER → 2024-11-25 | Outpatient (REF) | payer OTHER ==
[~2024-11-25] MED LIST changes: +BENZ200C70 PO; +MUCI600T31 PO
[2024-11-25 14:11] LABS: APPEARANCE, URINE HAZY (CLEAR); BACTERIA, URINE AUTO 2+ (NEGATIVE); BILIRUBIN, URINE AUTO NEGATIVE (NEGATIVE); BLOOD, URINE BLOOD NEGATIVE (NEGATIVE); GLUCOSE, URINE (UA) AUTO 3+ mg/dL (NEGATIVE); KETONE, URINE AUTO NEGATIVE (NEGATIVE); LEUKOCYTE ESTERASE, URINE AUTO 1+ (NEGATIVE); MUCUS, URINE SMALL (NEGATIVE); NITRITE, URINE AUTO NEGATIVE (NEGATIVE); PROTEIN, URINE AUTO NEGATIVE (NEGATIVE); RBC, URINE AUTO 1 /HPF (0-3); SPECIFIC GRAVITY URINE AUTO 1.010 (1.002-1.035); SQUAMOUS EPITHELIAL CELL UR AU 1 /HPF (0-6); UROBILINOGEN, URINE AUTO 0.2 mg/dL (0.0-2.0); WBC, URINE AUTO 55 /HPF (0-3)
== END ==
LOC: M SMT 13:10
PROVIDERS: ATTEND Nurse Practitioner Family
DX: R31.29 Other microscopic hematuria (principal)

== ENCOUNTER → 2025-01-13 | Outpatient (REF) | payer OTHER ==
[2025-01-13 14:51] LABS: ALT/SGPT 93.0 U/L (7.0-40); AST/SGOT 70.0 U/L (<34); CALCIUM LEVEL 8.7 MG/DL (8.3-10.6); CARBON DIOXIDE LEVEL 30.0 MMOL/L (20-31); CHLORIDE LEVEL 102.0 MMOL/L (98-107); CREATININE FOR GFR 1.77 MG/DL (0.70-1.30); FREE T4 1.47 NG/DL (0.89-1.76); GLOMERULAR FILTRATION RATE 42.6 (>49); POTASSIUM SERUM 4.3 MMOL/L (3.5-5.1); SODIUM LEVEL 143.0 MMOL/L (136-145)
[2025-01-13 15:15] LABS: ESTIMATED AVERAGE GLUCOSE 163.0 MG/DL (60-110)
== END ==
LOC: M SFHCADAM 07:55
PROVIDERS: ATTEND Physician Assistant
DX: E11.59 Type 2 diabetes mellitus with other circulatory complications (principal); K76.0 Fatty (change of) liver, not elsewhere classified; I25.5 Ischemic cardiomyopathy

== ENCOUNTER → 2025-01-19 | Outpatient (CLI) | payer OTHER | LOC: M RAD 09:41 | PROVIDERS: ATTEND Nurse Practitioner Family | DX: N39.0 Urinary tract infection, site not specified (principal) ==

== ENCOUNTER → 2025-03-31 | Outpatient (CLI) | payer OTHER ==
[2025-03-31 17:45] LABS: ALT/SGPT 59.0 U/L (7.0-40); AST/SGOT 49.0 U/L (<34); CALCIUM LEVEL 8.7 MG/DL (8.3-10.6); CARBON DIOXIDE LEVEL 30.0 MMOL/L (20-31); CHLORIDE LEVEL 104.0 MMOL/L (98-107); CREATININE FOR GFR 1.98 MG/DL (0.70-1.30); GLOMERULAR FILTRATION RATE 37.3 (>49); MAGNESIUM LEVEL 1.9 MG/DL (1.8-2.4); POTASSIUM SERUM 4.5 MMOL/L (3.5-5.1); SODIUM LEVEL 143.0 MMOL/L (136-145)
== END ==
LOC: M ADAMS 13:30
PROVIDERS: ATTEND Physician Assistant
DX: I47.20 Ventricular tachycardia, unspecified (principal); I25.10 Atherosclerotic heart disease of native coronary artery without angina pectoris; I50.42 Chronic combined systolic (congestive) and diastolic (congestive) heart failure; I25.5 Ischemic cardiomyopathy